=== PATIENT | female | born 1970 | race African-American/Black ===

== ENCOUNTER 2024-05-25 06:00 | Inpatient (IN) | payer OTHER ==
[~2024-05-25] VITALS: Ht 172.7 cm; Wt 124.5 kg
[2024-05-25] VITALS (28 sets, daily range): BP systolic 88–171; BP diastolic 28–83; PULSE 89–145; RESP 18–40; TEMP 99.5–100.2; O2SAT 96–100
--- NOTE | 2024-05-25 06:23 | ED.PDOC ---
Altered Mental Status HPI Comments 53 year female brought in by EMS presents to the ED with a chief complaint of ALOC. Per EMS, patient's daughter called EMS due to patient "breathing funny" and not responding. Per daughter, patient has not been well for the past 2 weeks with flu like symptoms, for the past 2 days patient has worsen. Upon EMS arri fernie, patient was tachycardiac, tachypneic 75% RA was placed on 15L O2 sat was 96%. Daughter is not aware of patient's past medical history. Chief Complaint: ALOC Time Seen by MD: 06:15 Reviewed Notes: Medications, Allergies Allergies: Coded Allergies: UNOBTAINABLE (Unverified , 05/25/24) Pt unresponsive Information Source: Emergency Med Personnel Mode of Arrival: EMS Severity: Moderate Timing: Hours Duration: Since onset Quality: Decreased Alertness, Change in Behavior Recent: Cough, Fever Past Medical History PAST MEDICAL HISTORY: Unknown Surgical History: Unknown VEGETABLES COOK History: Unknown Family History Family History: Unknown Social History Lives In: Home Unable to Obtain due to: Altered Mental Status All Other Systems: Reviewed and Negative Physical Exam General Appearance: Severe Distress HEENT: Normal ENT Inspection, Pharynx Normal, TMs Normal Neck: Normal Respiratory: Accessory Muscle Use, Respiratory Distress Cardiovascular: Tachycardia Breast Exam: Deferred Gastrointestinal: Soft Genitalia: Deferred Pelvic: Deferred Rectal: Deferred Extremities: No pedal edema Musculoskeletal : Apperance: Normal Neurologic: Disoriented Cerebellar Function: NOT DONE Reflexes: NOT DONE Skin: Pallor Peripheral Pulses: 3+ Radial (R), 3+ Radial (L) Lymphatic: No Adenopathy Was a procedure done? Was a procedure done?: Yes Sedation Sedation?: Yes Informed consent obtained: No Sedation start time: 06:43 Sedation end time: 07:00 Sedation total time: 17min Central Line Recorder of insertion practice: Maintenance Planner Occupation of claims representative: Attending Physician Indication: Inability to obtain IV Room prepared for procedure: Yes Maintenance Planner performed hand hygien: Yes Maximal sterile barrier precau: Mask/Eye shield, Sterile gown, Cap, Sterlie gloves, Large sterlie drape Skin Preparation: Chlorhexidine gluconate, Providine iodine Skin preparation completely dr: Yes Insertion site: Right, Femoral Central line catheter type: Uhi-knzcfxxy-kza dialysis Number of lumens: 3 Central line exchanged over a: No Antiseptic ointment applied to: Yes Post Assessment: Chest X-Ray, Proper placement Intubation Indication: Respiratory Insufficiency, Altered Mental Status Prep: Preoxygenation Pretreated with: Sedation Medicated with: Other (20 mg Etomidate, 200 mg Roccuronium ) Intubation Approach: Orotracheal Intubation size: cm (24 ) Informed consent obtained: No Notes LOOSE TOOTH IN THE MOUTH ANOTHER TWO LOOSE. WAS ABLE TO REMOVE THE TOOTH FROM THE MOUTH PRIOR TO INTUBATION. POSSIBLY HAPPENED IN ROUTE TO THE ER. TOLERATED THE PROCEDURE. Differential Diagnosis (ALOC) Differential Diagnosis: Encephalopathy, Hypoxemia X-Ray, Labs, Meds, VS Vital Signs Date Time Temp Pulse Resp B/P (MAP) Pulse Ox O2 Delivery O2 Flow Rate FiO2 05/25/24 10:32 100/66 05/25/24 10:30 05/25/24 10:30 101.8 107 24 100/66 (77) 99 101.8 05/25/24 10:22 134 20 171/69 100 100 05/25/24 10:00 103.1 111 20 90/31 (50) 99 103.1 05/25/24 10:00 101/51 05/25/24 10:00 101/51 05/25/24 09:30 105.8 124 20 132/110 (117) 99 105.8 05/25/24 09:00 117/61 05/25/24 08:56 134 20 100 100 05/25/24 08:40 136 05/25/24 08:30 105.8 139 20 129/57 (81) 99 105.8 05/25/24 08:28 129/57 05/25/24 08:24 105.9 139 22 05/25/24 08:16 145 18 98 Mechanical Ventilator+ 100 100 05/25/24 08:16 105.8 145 18 171/69 (103) 98 105.8 05/25/24 07:30 211/186 05/25/24 06:56 159 18 249/169 (195) 95 100 05/25/24 06:45 128/79 05/25/24 06:44 128/79 05/25/24 06:43 128/79 05/25/24 06:29 140 40 96 Non-Rebreather 15 N/A 05/25/24 06:10 141 05/25/24 06:00 101.0 140 40 158/106 (123) 96 Lab Test 05/25/24 10:30 05/25/24 08:38 05/25/24 08:30 05/25/24 08:24 Range/Units Lactic Acid Level 4.6 *H 3.6 *H 0.4-2.0 mmol/L Blood Gas Specimen Type Arterial Blood Gas Sample Site Left radial Blood Gas Patient Temperature 37.0 Arterial Blood Date Drawn [id number] Arterial Blood pH 7.255 L 7.350-7.450 Arterial Blood Partial Pressure CO2 41.5 32.0-45.0 mmHg Arterial Blood Partial Pressure O2 62.2 L 83.0-108.0 mmHg Arterial Blood HCO3 18.0 L 21.0-28.0 mmol/L Arterial Blood Oxygen Saturation 85.1 L 94.0-98.0 % Arterial Blood Base Excess -8.7 L -2.0-3.0 mmol/L Arterial Blood Oxyhemoglobin 84.2 L 94.0-98.0 % Arterial Blood Carboxyhemoglobin 0.4 L 0.5-1.5 % Arterial Blood Methemoglobin 0.6 0.0-1.5 % Joni Test Modified Blood Gas Total Hemoglobin 13.90 12.0-16.0 g/dL Blood Gas Set Respiration Rate 18.0 Blood Gas Modality Vent - ac FiO2 % 100.0 Blood Gas Tidal Volume 600.0 Blood Gas PEEP or CPAP 7.0 Urine Color Yellow Yellow Urine Clarity Clear Clear Urine pH 7.5 5.0-9.0 Urine Specific [place] 1.013 1.001-1.035 Urine Protein 2+ H Negative Urine Ketones Negative Negative Urine Blood Negative Negative /uL Urine Nitrite Negative Negative Urine Bilirubin Negative Negative Urine Urobilinogen 8 H Negative mg/dL Urine Leukocyte Esterase Negative Negative /uL Urine RBC 5 0 - 4 /hpf Urine WBC 1 0 - 5 /hpf Urine Squamous Epithelial Cells Few <5 /hpf Urine Bacteria None seen None Seen /hpf Urine Glucose Normal Normal mg/dL Urine Opiates Screen Neg NEGATIVE Urine Fentanyl Screen Neg NEGATIVE Urine Barbiturates Screen Neg NEGATIVE Urine Phencyclidine Screen Neg NEGATIVE Urine Amphetamines Screen Neg NEGATIVE Urine Benzodiazepines Screen Neg NEGATIVE Urine Cocaine Screen Neg NEGATIVE Urine Cannabinoids Screen Neg NEGATIVE White Blood Count 29.6 H 4.4-10.8 10^3/uL Red Blood Count 4.08 4.0-5.20 10^6/uL Hemoglobin 12.3 12.2-16.2 g/dL Hematocrit 37.0 36.0-46.0 % Mean Corpuscular Volume 90.8 80.0-100.0 fL Mean Corpuscular Hemoglobin 30.1 28.0-32.0 pg Mean Corpuscular Hemoglobin Concent 33.2 32.0-36.0 g/dL Red Cell Distribution Width 15.2 H 11.8-14.3 % Platelet Count 380 140-450 10^3/uL Mean Platelet Volume 8.6 6.9-10.8 fL Neutrophils (%) (Auto) 37.0-80.0 % Lymphocytes (%) (Auto) 10.0-50.0 % Monocytes (%) (Auto) 0.0-12.0 % Basophils (%) (Auto) 0.0-2.0 % Neutrophils # (Auto) 1.6-8.6 10 ^3/uL Lymphocytes # (Auto) 0.4-5.4 10 ^3/uL Monocytes # (Auto) 0-1.3 10 ^3/uL Differential Total Cells Counted 100.0 100 Neutrophils % (Manual) 86 H 37.0-80.0 Band Neutrophils % (Manual) 5 Lymphocytes % (Manual) 7 L 10.0-50.0 Monocytes % (Manual) 2 0-12 Eosinophils % (Manual) 0 0-7 Basophils % (Manual) 0 0.0-2.0 Metamyelocytes % (manual) 0 Myelocytes % (Manual) 0 Promyelocytes % (Manual) 0 Blast Cells % (Manual) 0 Reactive Lymphocytes 0 Platelet Estimate Adequate Sodium Level 139 136-145 mmol/L Potassium Level 3.5 3.5-5.1 mmol/L Chloride Level 102 98-107 mmol/L Carbon Dioxide Level 20 20-31 mmol/L Anion Gap 17 H 5-15 Blood Urea Nitrogen 48 H 9-23 mg/dL Creatinine 5.14 H 0.550-1.02 mg/dL Glomerular Filtration Rate Calc 9 >90 mL/min BUN/Creatinine Ratio 9.3 L 10.0-20.0 Serum Glucose 139 H 74-106 mg/dL Hemoglobin A1c 5.6 <5.7 % A1C Calcium Level 9.2 8.7-10.4 mg/dL Magnesium Level 1.7 1.6-2.6 mg/dL Troponin I High Sensitivity 1060 *H </=34 ng/L B-Type Natriuretic Peptide 1384.04 0-100 pg/mL Triglycerides Level 192 H < 150 mg/dL Cholesterol Level 98 < 200 mg/dL LDL Cholesterol 40 < 100 mg/dL HDL Cholesterol 8 L 40-59 mg/dL Test 05/25/24 06:40 Range/Units Influenza Type A Antigen Negative Negative Influenza Type B Antigen Negative Negative SARS-CoV-2 Antigen (Rapid) Negative NEGATIVE Current Medications Medications (Trade) Dose Ordered Sig/Yousif Route Start Time Stop Time Status Last Admin Rocuronium [place] 120 mg ONCE ONCE IV 05/25/24 06:30 05/25/24 06:31 DC 05/25/24 06:43 Etomidate 20 mg ONCE ONCE IV 05/25/24 06:30 05/25/24 06:31 DC 05/25/24 06:43 Midazolam HCl 50 ml @ 1 mls/hr Q24H IV 05/25/24 06:30 05/25/24 16:19 Ceftriaxone Sodium 50 ml @ 100 mls/hr ONCE ONCE IV 05/25/24 06:30 05/25/24 06:59 DC 05/25/24 08:39 Azithromycin 250 ml @ 125 mls/hr ONCE ONCE IV 05/25/24 06:30 05/25/24 08:29 DC 05/25/24 09:06 Sodium Chloride 1,000 ml @ 1,000 mls/hr Q1H ONCE IV 05/25/24 08:15 05/25/24 09:14 DC 05/25/24 08:28 Furosemide (Lasix Injection) 40 mg ONCE ONCE IV 05/25/24 10:15 05/25/24 10:16 DC 05/25/24 10:32 Heparin Sodium (Porcine) 5,000 units ONCE ONCE IV 05/25/24 10:15 05/25/24 10:16 DC 05/25/24 10:33 Sodium Chloride 1,000 ml @ 1,000 mls/hr Q1H ONCE IV 05/25/24 10:15 05/25/24 11:14 DC 05/25/24 10:21 Furosemide (Lasix Injection) 40 mg ONCE ONCE IV 05/25/24 10:15 05/25/24 10:16 DC 05/25/24 13:58 Patient altered. Not getting enough oxygen. Respiratory distress. Unable to get any answers. Had to intubate the patient. Was given sedation. On examination there is a loose tooth on the tongue. There are two other loose teeth ready to come out. Intubated the patient. Place a central line. Sepsis protocol. BNP elevated. Cardiac marker elevated. Was given Lasix. Risk versus the benefit. CT of the head. Heparin to be given after the CT of the head. Was given Rocephin. Was given azithromycin. Explained to the family. Chest x-ray reviewed does show pneumonia. Explained to the family pain Continue cardiac monitoring. Time of 1ST Reevaluation: 06:45 Reevaluation 1ST: Unchanged Patient Education/Counseling: Pt Unresponsive Family Education/Counseling: No Family Present Additional Information I reviewed the following notes from patient's past medical encounters: The following tests were ordered, and results were reviewed by me: BLOOD CULTURE, LA W/ REFLEX, TROP, CBC, BNP, XY CHEST, UA, BMP, COVID, RAPID INFLUENZA A&B, XY CHEST, RESPIRATORY CULTURE W/ GS, ABG W/ CO-OC, XY R HIP COMPLETE Additional Information was gathered from interviewing the following independent historians: EMS I reviewed and agreed with the following test results read by other providers: XY R HIP COMPLETE , XY CHEST I discussed treatment and results with medical personnel and: Departure 1 Departure Time of Disposition: 07:12 Impression: Primary Impression: Metabolic encephalopathy Additional Impressions: Pneumonia Qualified Codes: J18.9 - Pneumonia, unspecified organism CHF (congestive heart failure) Qualified Codes: I50.43 - Acute on chronic combined systolic (congestive) and diastolic (congestive) heart failure Demand ischemia Sepsis Qualified Codes: A41.9 - Sepsis, unspecified organism Disposition: 09 ADMITTED INPATIENT Admit to: ICU Condition: Guarded Critical Care Note Critical Care Time?: Yes (90 min-critical care time only) Stability Stability form required: No Heart Score Heart Score: Heart Score Response (Comments) Value History Slightly Suspicious 0 EKG Normal 0 Age 45-64 1 Risk Factors >3 or Hx ASHD 2 Troponin >3 x's Normal limit 2 Total 5 I personally scribed for LINDSAY ADAIR MD ([email or web address]) on 05/25/24 at 06:23. Electronically submitted by Shi Benavides ([email or web address]). I personally scribed for LINDSAY ADAIR MD ([email or web address]) on 05/25/24 at 06:38. Electronically submitted by Shi Benavides ([email or web address]). I personally scribed for LINDSAY ADAIR MD ([email or web address]) on 05/25/24 at 06:52. Electronically submitted by Shi Benavides ([email or web address]). I personally scribed for LINDSAY ADAIR MD ([email or web address]) on 05/25/24 at 06:52. Electronically submitted by Shi Benavides ([email or web address]). I personally scribed for LINDSAY ADAIR MD ([email or web address]) on 05/25/24 at 07:54. Electronically submitted by Shi Benavides ([email or web address]). LINDSAY ADAIR MD May 25, 2024 06:23
[2024-05-25] MEDS: ETOMIDATE (2MG/ML) 20ML VIAL IV ONE ×2 (06:34→06:43)
[2024-05-25] MEDS: ROCURONIUM 10MG/ML 10ML VIAL IV ONE ×2 (06:34→06:43)
[2024-05-25] MEDS: MIDAZOLAM DRIP 50 mg/50mL 50 ML IV ONE (06:34)
[2024-05-25] MEDS: MIDAZOLAM DRIP 50 mg/50mL 50 ML IV SCH (06:44)
--- NOTE | 2024-05-25 07:19 | ECG ---
[facility] Test Date: 2024-05-25 Test Time: 06:10:55 Pat Name: ORLIN BHAKTA Department: ED Room: [facility] Gender: F Superintendent Maintenance: CARLOS : 1970 Requested By: EMERGENCY EMERGENCY Order Number: [id number] Reading MD: Blayne Buchanan Measurements Intervals [place] Rate: 141 P: 0 NC: 0 QRS: 236 QRSD: 105 T: 75 QT: 351 QTc: 538 Interpretive Statements Atrial flutter with varied AV block, Markedly posterior QRS axis Anteroseptal infarct, old Borderline ST depression, diffuse leads Prolonged QT interval Electronically Signed On 05-25-2024 18:29:12 PST by Blayne Buchanan Please click the below link to view image of tracing.
[2024-05-25 07:29] LABS: COVID19 ANTIGEN SOFIA FIA NEGATIVE (NEGATIVE); Rapid Influenza A Negative (Negative); Rapid Influenza B Negative (Negative)
--- NOTE | 2024-05-25 07:33 | DVH ---
CLINICAL INFORMATION: 53 years old, Female; shortness of breath. TECHNIQUE: AP portable chest radiographs were obtained. COMPARISON: None FINDINGS: Distal tip of the endotracheal tube is approximately 5.5 cm above the level of the nik. Enteric tu be is poorly visualized distally due to overlying soft tissue density. Appears to reach the gastroeso phageal junction, although not visualized more distally. There are bilateral airspace opacities and i nterstitial opacities, which may be due to multifocal pneumonia or pulmonary edema in the appropriate clinical setting. No pneumothorax visualized. Likely small left pleural effusion. IMPRESSION: 1. Distal tip of the endotracheal tube is approximately 5.5 cm above the level of the nik. 2. Poorly visualized enteric tube at its distal aspect. Appears to reach the gastroesophageal junctio n, although not visualized distal to this point. Correlate with clinical findings. 3. Bilateral airspace opacities and interstitial opacities, may be due to multifocal pneumonia or pul monary edema in the appropriate clinical setting.
[2024-05-25] MEDS ORDERED: ACETAMINOPHEN 650 MG RECT SUPP PR ONE (08:15)
[2024-05-25] MEDS ORDERED: SODIUM CHLORIDE 0.9% 1,000 ML IV ONE ×2 (08:15→10:15)
[2024-05-25] MEDS: SODIUM CHLORIDE 0.9% 1,000 ML IV ONE ×2 (08:28→10:21)
[2024-05-25] MEDS ORDERED: ACETAMINOPHEN IV 1000 MG/100ML (10MG/ML) IV PRN (08:30)
[2024-05-25] MEDS: cefTRIAXone 1GM/50ML D5W 50 ML IV ONE (08:39)
[2024-05-25 08:46] LABS: Base Excess -8.7 mmol/L (-2.0-3.0)
[2024-05-25] MEDS: AZITHROMYCIN 500MG/ 250ML 250 ML IV ONE (09:06)
[2024-05-25 09:14] LABS: Hemoglobin 12.3 g/dL (12.2-16.2); Mean Corpuscular Hemoglobin 30.1 pg (28.0-32.0); Mean Corpuscular Hgb Conc. 33.2 g/dL (32.0-36.0); Mean Corpuscular Volume 90.8 fL (80.0-100.0); Platelet Count (auto) 380 10^3/uL (140-450); Red Blood Cells 4.08 10^6/uL (4.0-5.20); Red Cell Distribution Width 15.2 % (11.8-14.3); White Blood Cell 29.6 10^3/uL (4.4-10.8)
[2024-05-25 09:16] LABS: Chloride 102 mmol/L (98-107); Sodium 139 mmol/L (136-145)
[2024-05-25 09:18] LABS: Anion Gap 17 (5-15); Calcium 9.2 mg/dL (8.7-10.4); Carbon Dioxide 20 mmol/L (20-31)
[2024-05-25 09:19] LABS: Urine Bacteria None Seen /hpf (None Seen)
[2024-05-25 09:23] LABS: BUN/Creatinine Ratio 9.3 (10.0-20.0)
[2024-05-25 09:25] LABS: Basophils % (manual) 0 (0.0-2.0); Blast Cells 0; Eosinophils % (manual) 0 (0-7); Metamyelocytes % 0; Myelocytes % 0; Promyelocytes % 0; Reactive Lymphocytes 0
[2024-05-25 09:36] LABS: Blood Urea Nitrogen 48 mg/dL (9-23); Glucose 139 mg/dL (74-106); Potassium 3.5 mmol/L (3.5-5.1)
[2024-05-25 09:36] LABS: Urine Blood Negative /uL (Negative); Urine Clarity Clear (Clear); Urine Color Yellow (Yellow); Urine Protein, UAD 2+ (Negative); Urine Specific Gravity 1.013 (1.001-1.035); Urine Squamous Epithelial Cell FEW /hpf (<5); Urine Urobilinogen 8 mg/dL (Negative); Urine WBC 1 /hpf (0 - 5); Urine pH 7.5 (5.0-9.0)
[2024-05-25 09:37] LABS: Lactic Acid w/Reflex 3.6 mmol/L (0.4-2.0)
[2024-05-25] MEDS: FUROSEMIDE 40 MG/4 ML VIAL IV ONE ×2 (10:32→10:35)
[2024-05-25] MEDS: HEPARIN SODIUM (PORCINE) 5000 UNITS/ML 1ML VIAL IV ONE (10:33)
[2024-05-25] MEDS ORDERED: MORPHINE SULFATE INJ 2 MG/ml SYRG IV PRN (10:45)
[2024-05-25] MEDS ORDERED: ONDANSETRON HCL 4 MG/2 ML VIAL IV PRN (10:45)
[2024-05-25] MEDS ORDERED: hydrALAZINE HCL 20 MG/ML VL IV PRN (10:45)
[2024-05-25] MEDS ORDERED: MORPHINE SULFATE 4 MG/ML SYR/VIAL IV PRN (10:45)
[2024-05-25] MEDS ORDERED: NITROGLYCERIN 0.4 MG SL TAB SL PRN (10:45)
[2024-05-25] MEDS: PHENYLEPHRINE IV 250 ML IV SCH (11:15)
--- NOTE | 2024-05-25 11:22 | DVHHP2 ---
History of Present Illness Reason for Visit: SOB History of Present Illness María Pandya is a 53-year-old female with past medical history of hypertension who presents to the ED for shortness of breath. Per son Jc he states that his sister was at home with his mom went to go check on her in the bedroom and she was complaining of shortness of breath so she called EMS was brought here to the ED and was altered then subsequently intubated. Per pat bridgette's son Jc he states that his mom has been sick for about a month and has been taking [id number] medications along with tea to help with a cold and her headache. Patient's son reports that she has a history of hypertension who has been compliant with her medications however he does not know what medications she is taking. Patient is currently intubated and on the vent. Cardiovascular: HTN Past Surgical History: None Past Surgical History reported per son Family History: None Family History reported per son Smoke: No ALCOHOL: none Drugs: None Lives: with Family Domestic Violence: Neg Review of Systems Respiratory: Shortness of breath Allergies: Coded Allergies: UNOBTAINABLE (Unverified , 05/25/24) Pt unresponsive Medications Current Medications Medications Dose Ordered Sig/Yousif Route Start Time Stop Time Status Last Admin Dose Admin Midazolam HCl 50 ml @ 1 mls/hr Q24H IV 05/25/24 06:30 05/25/24 10:00 7 MLS/HR Hydralazine HCl 10 mg Q6HP PRN IV 05/25/24 10:45 UNV Sodium Chloride 1,000 ml @ 75 mls/hr [id number] IV 05/25/24 10:45 UNV Aspirin 81 mg DAILY NG 05/26/24 10:00 UNV Atorvastatin Calcium 40 mg HS NG 05/25/24 22:00 UNV Morphine Sulfate 2 mg Q30MP PRN IV 05/25/24 10:45 UNV Ondansetron HCl 4 mg Q4HP PRN IV 05/25/24 10:45 UNV Nitroglycerin 0.4 mg Q5MINP PRN SL 05/25/24 10:45 UNV Morphine Sulfate 2 mg Q30M PRN IV 05/25/24 10:45 UNV Exam Vital Signs Vital Signs Date Time Temp Pulse Resp B/P (MAP) Pulse Ox O2 Delivery O2 Flow Rate FiO2 05/25/24 10:32 100/66 05/25/24 10:30 101.8 107 24 99 101.8 05/25/24 10:22 100 05/25/24 08:16 Mechanical Ventilator+ 05/25/24 06:29 15 General Appearance: Other (intubated) HEENT: Mucous membr. moist/pink Respiratory: Normal air movement Cardiovascular: Normal S1, Normal S2 Abdominal: Normal bowel sounds, Soft Extremities: No clubbing, No cyanosis, Normal pulses Skin: No breakdown, No significant lesion Labs/Xrays Labs Test 05/25/24 10:30 05/25/24 08:38 05/25/24 08:30 05/25/24 08:24 Range/Units Blood Gas Specimen Type Arterial Blood Gas Sample Site Left radial Blood Gas Patient Temperature 37.0 Arterial Blood Date Drawn [id number] Arterial Blood pH 7.255 L 7.350-7.450 Arterial Blood Partial Pressure CO2 41.5 32.0-45.0 mmHg Arterial Blood Partial Pressure O2 62.2 L 83.0-108.0 mmHg Arterial Blood HCO3 18.0 L 21.0-28.0 mmol/L Arterial Blood Oxygen Saturation 85.1 L 94.0-98.0 % Arterial Blood Base Excess -8.7 L -2.0-3.0 mmol/L Arterial Blood Oxyhemoglobin 84.2 L 94.0-98.0 % Arterial Blood Carboxyhemoglobin 0.4 L 0.5-1.5 % Arterial Blood Methemoglobin 0.6 0.0-1.5 % Joni Test Modified Blood Gas Total Hemoglobin 13.90 12.0-16.0 g/dL Blood Gas Set Respiration Rate 18.0 Blood Gas Modality Vent - ac FiO2 % 100.0 Blood Gas Tidal Volume 600.0 Blood Gas PEEP or CPAP 7.0 Urine Color Yellow Yellow Urine Clarity Clear Clear Urine pH 7.5 5.0-9.0 Urine Specific [place] 1.013 1.001-1.035 Urine Protein 2+ H Negative Urine Ketones Negative Negative Urine Blood Negative Negative /uL Urine Nitrite Negative Negative Urine Bilirubin Negative Negative Urine Urobilinogen 8 H Negative mg/dL Urine Leukocyte Esterase Negative Negative /uL Urine RBC 5 0 - 4 /hpf Urine WBC 1 0 - 5 /hpf Urine Squamous Epithelial Cells Few <5 /hpf Urine Bacteria None seen None Seen /hpf Urine Glucose Normal Normal mg/dL White Blood Count 29.6 H 4.4-10.8 10^3/uL Red Blood Count 4.08 4.0-5.20 10^6/uL Hemoglobin 12.3 12.2-16.2 g/dL Hematocrit 37.0 36.0-46.0 % Mean Corpuscular Volume 90.8 80.0-100.0 fL Mean Corpuscular Hemoglobin 30.1 28.0-32.0 pg Mean Corpuscular Hemoglobin Concent 33.2 32.0-36.0 g/dL Red Cell Distribution Width 15.2 H 11.8-14.3 % Platelet Count 380 140-450 10^3/uL Mean Platelet Volume 8.6 6.9-10.8 fL Neutrophils (%) (Auto) 37.0-80.0 % Lymphocytes (%) (Auto) 10.0-50.0 % Monocytes (%) (Auto) 0.0-12.0 % Basophils (%) (Auto) 0.0-2.0 % Neutrophils # (Auto) 1.6-8.6 10 ^3/uL Lymphocytes # (Auto) 0.4-5.4 10 ^3/uL Monocytes # (Auto) 0-1.3 10 ^3/uL Sodium Level 139 136-145 mmol/L Potassium Level 3.5 3.5-5.1 mmol/L Chloride Level 102 98-107 mmol/L Carbon Dioxide Level 20 20-31 mmol/L Anion Gap 17 H 5-15 Blood Urea Nitrogen 48 H 9-23 mg/dL Creatinine 5.14 H 0.550-1.02 mg/dL Glomerular Filtration Rate Calc 9 >90 mL/min BUN/Creatinine Ratio 9.3 L 10.0-20.0 Serum Glucose 139 H 74-106 mg/dL Calcium Level 9.2 8.7-10.4 mg/dL Troponin I High Sensitivity 1060 *H </=34 ng/L B-Type Natriuretic Peptide 1384.04 0-100 pg/mL Test 05/25/24 06:40 Range/Units Influenza Type A Antigen Negative Negative Influenza Type B Antigen Negative Negative SARS-CoV-2 Antigen (Rapid) Negative NEGATIVE CLINICAL INFORMATION: 53 years old, Female; shortness of breath. TECHNIQUE: AP portable chest radiographs were obtained. COMPARISON: None FINDINGS: Distal tip of the endotracheal tube is approximately 5.5 cm above the level of the nik. Enteric tube is poorly visualized distally due to overlying soft tissue density. Appears to reach the gastroesophageal junction, although not visualized more distally. There are bilateral airspace opacities and interstitial opacities, which may be due to multifocal pneumonia or pulmonary edema in the appropriate clinical setting. No pneumothorax visualized. Likely small left pleural effusion. IMPRESSION: 1. Distal tip of the endotracheal tube is approximately 5.5 cm above the level of the nik. 2. Poorly visualized enteric tube at its distal aspect. Appears to reach the gastroesophageal junction, although not visualized distal to this point. Corre late with clinical findings. 3. Bilateral airspace opacities and interstitial opacities, may be due to multifocal pneumonia or pulmonary edema in the appropriate clinical setting. Assessment/Plan Assessment/Plan Assessment/Plan: Acute respiratory failure Leukocytosis likely secondary to sepsis Lactic acidosis likely secondary to sepsis Acute kidney injury Elevated troponin's Chest x-ray IV antibiotics ceftriaxone and he has a through Sedation - intubated on vent Right hip x-ray Respiratory culture ABG Intubated Flu swab COVID swab Urine culture UA BNP Troponin noted Lactic acid Blood cultures EKG noted Lasix Heparin UDS TSH Lipid panel Respiratory treatments IV steroids Diuretics UDS Lovenox CT head Ago IV fluids Potter catheterization Cardiology consult Pulmonary consult Nephro consult Pressor-Anthony Labs EKG a.m. A.m. labs Chronic Hypertension Follow up with PCP outpatient FEN/PPX NPO Ivf DVT ppx lovenox PUD ppx - Protonix Discussed plan of care with patient's son, brother and nurse Home medications reconciled unable to reconcile patient not alert and son does not have information Admit to ICU Plan discussed with: Son My Orders Orders - ESME HUMPHREY CONTRACT ENGINEER Procedure Category Date Status Time *Consult Dr Reba Delacruz CONS 05/25/24 Transmitted 10:36 *Dr. Keyshawn Navarro CONS 05/25/24 Transmitted -[place] 10:39 Hydralazine Injection PHA 05/25/24 Logged (Apresoline Inject 10:45 Admit ADMIT 05/25/24 Transmitted 10:39 Code Status CODE 05/25/24 Transmitted 10:39 Vital Signs ROB 05/25/24 In Process 10:39 Process Control Manager ROB 05/25/24 In Process 10:39 Sodium Chloride 0.9% PHA 05/25/24 Logged 10:45 Aspirin Tablet PHA 05/26/24 Logged 10:00 Atorvastatin (Lipitor) PHA 05/25/24 Logged 22:00 Morphine Sulfate PHA 05/25/24 Logged Injection 10:45 Complete Blood Count LAB 05/26/24 Verified 04:00 Comprehensive LAB 05/26/24 Verified Metabolic Panel 04:00 Magnesium LAB 05/26/24 Verified 04:00 Lipid Panel LAB 05/26/24 Verified 04:00 Lipase LAB 05/26/24 Verified 04:00 Chest Xray 1 View XY 05/26/24 Logged 06:00 Ondansetron Hcl PHA 05/25/24 Logged (Zofran) 10:45 Electrocardigram EKG 05/26/24 Logged 04:00 Troponin-I Hs LAB 05/25/24 Logged 10:39 Cardiac ROB 05/25/24 In Process Rehabilitation - Outpa Nitroglycerin PHA 05/25/24 Logged Sublingual (Ntrostat 10:45 Morphine Sulfate PHA 05/25/24 Logged Injection 10:45 Stat Ekg For Chest ROB 05/25/24 In Process Pain 10:39 Notify Md Of Changes ROB 05/25/24 In Process From Base 10:39 Cold Roll Catcher For ROB 05/25/24 In Process 24 Hours 10:39 Emergency Dysrhythmia ROB 05/25/24 In Process Protocol 10:39 Rhythm Strips Once [facility] 05/25/24 In Process Every Shift 10:39 Oxygen By Nasal RT 05/25/24 Transmitted Cannula 10:39 Enoxaparin Sodium PHA 05/26/24 Logged (Lovenox) 10:00 Enoxaparin Sodium PHA 05/25/24 Logged (Lovenox) 11:15 Ceftriaxone 1gm/50ml PHA 05/26/24 Logged D5w (Rocephin) 09:00 Azithromycin 500mg/ PHA 05/26/24 Logged 250ml (Zithromax 50 10:00 Albuterol Medneb PHA 05/25/24 Logged (Ventolin Medneb) 14:00 Ipratropium Medneb PHA 05/25/24 Logged (Atrovent Medneb) 14:00 Methylprednisolone PHA 05/25/24 Logged Sod Succ (Solu Medrol 14:00 Thyroid Stimulating LAB 05/25/24 Transmitted Hormone 11:02 Drug Screen LAB 05/25/24 Transmitted 11:02 Urine Bacterial JO-ANN 05/25/24 Transmitted Culture 11:02 Furosemide Injection PHA 05/25/24 Verified (Lasix Injection) 18:00 Date of Service: May 25, 2024 Billing Provider: ESME HUMPHREY Common Visit Codes: [id number] INP/OBS CARE (HIGH) ESME HUMPHREY May 25, 2024 11:22
[2024-05-25 11:51] LABS: Band Neutrophils % (manual) 5; Lymphocytes % (manual) 7 (10.0-50.0); Monocytes % (manual) 2 (0-12); Platelet Estimate Adequate
[2024-05-25] MEDS: ENOXAPARIN SOD 30 MG/0.3 ML SYRINGE SC ONE (12:28)
[2024-05-25 13:08] LABS: Amphetamine Screen, Urine Neg (NEGATIVE); Barbiturate Scree,Urine Neg (NEGATIVE); Benzodiazephine Screen, Urine Neg (NEGATIVE); Cocaine Screen, Urine Neg (NEGATIVE); Opiate Scree,Urine Neg (NEGATIVE); Phencyclidine Screen, Urine Neg (NEGATIVE)
[2024-05-25 13:12] LABS: Cannabinoid Screen, Urine Neg (NEGATIVE)
--- NOTE | 2024-05-25 13:18 | DVHINCON2 ---
Date Seen: May 25, 2024 Referring Physician MD Silvestre Reason for Consultation NSTEMI History of Present Illness This is a 53-year-old female patient who presents to the emergency room with chief complaint of shortness of breath. At the time of assessment, the patient is mechanically ventilated and chemically sedated. Family at bedside, patients son, able to answer all questions on patient's behalf. Per patient's son, the patient has been having recent flu-like symptoms for the last three weeks. He reports that the patient has been complaining of cough and body aches for the last week. He reports that approximately 4:00 a.m. this morning the patient became severely short of breath prompting family members to call emergency medical services. Upon emergency room arrival, we will patient was noted to be nonresponsive with accessory muscle use. The patient was urgently intubated in the emergency room. Cardiology is now being consulted for elevated troponin levels. Initial twelve lead electrocardiogram reveals sinus tachycardia with ST segment changes in diffuse leads and prolonged QTc interval. Initial troponin level of 1060ng/L. Initial BNP level of 1384.04pg/mL. Significant past medical history includes hypertension and morbid obesity. Past Medical History Past medical history reviewed. No other significant than mentioned above. Past Surgical History Denies Family History Family history reviewed. Social History Denies the use of tobacco, alcohol or illicit drugs. Allergies: Coded Allergies: UNOBTAINABLE (Unverified , 05/25/24) Pt unresponsive Home Meds Unable to obtain Current Medications Current Medications Medications (Trade) Dose Ordered Sig/Yousif Route PRN Reason Start Time Stop Time Status Last Admin Midazolam HCl 50 ml @ 1 mls/hr Q24H IV 05/25/24 06:30 05/25/24 10:00 Acetaminophen (Ofirmev) 1,000 mg [id number] PRN IV PAIN SCALE 1-3 OR TEMP>100.4 05/25/24 08:30 05/25/24 08:31 DC Hydralazine HCl (Apresoline Injection) 10 mg Q6HP PRN IV SBP>150 05/25/24 10:45 Sodium Chloride 1,000 ml @ 75 mls/hr [id number] IV 05/25/24 10:45 Aspirin 81 mg DAILY NG 05/26/24 10:00 Atorvastatin Calcium (Lipitor) 40 mg HS NG 05/25/24 22:00 Morphine Sulfate 2 mg Q30MP PRN IV FOR CHEST PAIN 05/25/24 10:45 05/25/24 11:48 DC Ondansetron HCl (Zofran) 4 mg Q4HP PRN IV NAUSEA / VOMITING 05/25/24 10:45 Nitroglycerin (Ntrostat Sublingual) 0.4 mg Q5MINP PRN SL FOR CHEST PAIN 05/25/24 10:45 Morphine Sulfate 2 mg Q30M PRN IV FOR CHEST PAIN 05/25/24 10:45 Enoxaparin Sodium (Lovenox) 30 mg DAILY SC 05/26/24 10:00 Ceftriaxone Sodium 50 ml @ 100 mls/hr DAILY@09 IV 05/26/24 09:00 Azithromycin 250 ml @ 125 mls/hr DAILY IV 05/26/24 10:00 Albuterol (Ventolin Medneb) 2.5 mg Q4HR NEB 05/25/24 14:00 Ipratropium [place] (Atrovent Medneb) 0.5 mg Q4HR NEB 05/25/24 14:00 Methylprednisolone Sodium Succinate (Solu Medrol) 40 mg Q8HR IV 05/25/24 14:00 Furosemide (Lasix Injection) 40 mg BIDD IV 05/25/24 18:00 Phenylephrine HCl 250 ml @ 30 mls/hr Q8H20M IV 05/25/24 11:15 Review of Systems Constitutional: No symptom reported Ears, Nose, & Throat: No symptom reported Eyes: No symptom reported Neurological: No symptoms reported Pulmonary/Respiratory: Shortness of breath Cardiovascular: No symptom reported Gastrointestinal: No symptom reported Genitourinary: No symptom reported Musculoskeletal: No symptom reported Skin: No symptom reported Psychiatric: No symptom reported Endocrine: No symptom reported Hematologic/Lymphatic: No symptom reported Vital Signs Vital Signs Date Time Temp Pulse Resp B/P (MAP) Pulse Ox O2 Delivery O2 Flow Rate FiO2 05/25/24 12:30 99.1 90 23 122/32 (62) 100 99.1 05/25/24 12:17 100 05/25/24 08:16 Mechanical Ventilator+ 05/25/24 06:29 15 Physical Exam General Appearance: Calm, relaxed. Morbidly obese Pulmonary/Respiratory: Coarse throughout Cardiovascular/Chest: Regular rate and rhythm. Peripheral Pulses: 2+ Radial (R). 2+ Radial (L). 1+ Pedal (R). 1+ Pedal (L) Abdominal Exam: Normal bowel sounds. Ankle Exam: Negative ankle edema Lower extremities: Negative lower extremity edema Neuro/Mental Status: Chemically sedated Thoughts/Psych: Deferred Appearance: No acute distress. Skin Exam: Normal inspection. Normal color. Warm and dry. Labs/Diagnostic Data Labs Test 05/25/24 11:35 05/25/24 10:30 05/25/24 08:38 05/25/24 08:30 Range/Units Troponin I High Sensitivity 1087 *H </=34 ng/L Lactic Acid Level 4.6 *H 0.4-2.0 mmol/L Blood Gas Specimen Type Arterial Blood Gas Sample Site Left radial Blood Gas Patient Temperature 37.0 Arterial Blood Date Drawn [id number] Arterial Blood pH 7.255 L 7.350-7.450 Arterial Blood Partial Pressure CO2 41.5 32.0-45.0 mmHg Arterial Blood Partial Pressure O2 62.2 L 83.0-108.0 mmHg Arterial Blood HCO3 18.0 L 21.0-28.0 mmol/L Arterial Blood Oxygen Saturation 85.1 L 94.0-98.0 % Arterial Blood Base Excess -8.7 L -2.0-3.0 mmol/L Arterial Blood Oxyhemoglobin 84.2 L 94.0-98.0 % Arterial Blood Carboxyhemoglobin 0.4 L 0.5-1.5 % Arterial Blood Methemoglobin 0.6 0.0-1.5 % Joni Test Modified Blood Gas Total Hemoglobin 13.90 12.0-16.0 g/dL Blood Gas Set Respiration Rate 18.0 Blood Gas Modality Vent - ac FiO2 % 100.0 Blood Gas Tidal Volume 600.0 Blood Gas PEEP or CPAP 7.0 Urine Color Yellow Yellow Urine Clarity Clear Clear Urine pH 7.5 5.0-9.0 Urine Specific [place] 1.013 1.001-1.035 Urine Protein 2+ H Negative Urine Ketones Negative Negative Urine Blood Negative Negative /uL Urine Nitrite Negative Negative Urine Bilirubin Negative Negative Urine Urobilinogen 8 H Negative mg/dL Urine Leukocyte Esterase Negative Negative /uL Urine RBC 5 0 - 4 /hpf Urine WBC 1 0 - 5 /hpf Urine Squamous Epithelial Cells Few <5 /hpf Urine Bacteria None seen None Seen /hpf Urine Glucose Normal Normal mg/dL Urine Opiates Screen Neg NEGATIVE Urine Fentanyl Screen Neg NEGATIVE Urine Barbiturates Screen Neg NEGATIVE Urine Phencyclidine Screen Neg NEGATIVE Urine Amphetamines Screen Neg NEGATIVE Urine Benzodiazepines Screen Neg NEGATIVE Urine Cocaine Screen Neg NEGATIVE Urine Cannabinoids Screen Neg NEGATIVE Test 05/25/24 08:24 05/25/24 06:40 Range/Units White Blood Count 29.6 H 4.4-10.8 10^3/uL Red Blood Count 4.08 4.0-5.20 10^6/uL Hemoglobin 12.3 12.2-16.2 g/dL Hematocrit 37.0 36.0-46.0 % Mean Corpuscular Volume 90.8 80.0-100.0 fL Mean Corpuscular Hemoglobin 30.1 28.0-32.0 pg Mean Corpuscular Hemoglobin Concent 33.2 32.0-36.0 g/dL Red Cell Distribution Width 15.2 H 11.8-14.3 % Platelet Count 380 140-450 10^3/uL Mean Platelet Volume 8.6 6.9-10.8 fL Neutrophils (%) (Auto) 37.0-80.0 % Lymphocytes (%) (Auto) 10.0-50.0 % Monocytes (%) (Auto) 0.0-12.0 % Basophils (%) (Auto) 0.0-2.0 % Neutrophils # (Auto) 1.6-8.6 10 ^3/uL Lymphocytes # (Auto) 0.4-5.4 10 ^3/uL Monocytes # (Auto) 0-1.3 10 ^3/uL Differential Total Cells Counted 100.0 100 Neutrophils % (Manual) 86 H 37.0-80.0 Band Neutrophils % (Manual) 5 Lymphocytes % (Manual) 7 L 10.0-50.0 Monocytes % (Manual) 2 0-12 Eosinophils % (Manual) 0 0-7 Basophils % (Manual) 0 0.0-2.0 Metamyelocytes % (manual) 0 Myelocytes % (Manual) 0 Promyelocytes % (Manual) 0 Blast Cells % (Manual) 0 Reactive Lymphocytes 0 Platelet Estimate Adequate Sodium Level 139 136-145 mmol/L Potassium Level 3.5 3.5-5.1 mmol/L Chloride Level 102 98-107 mmol/L Carbon Dioxide Level 20 20-31 mmol/L Anion Gap 17 H 5-15 Blood Urea Nitrogen 48 H 9-23 mg/dL Creatinine 5.14 H 0.550-1.02 mg/dL Glomerular Filtration Rate Calc 9 >90 mL/min BUN/Creatinine Ratio 9.3 L 10.0-20.0 Serum Glucose 139 H 74-106 mg/dL Calcium Level 9.2 8.7-10.4 mg/dL B-Type Natriuretic Peptide 1384.04 0-100 pg/mL Influenza Type A Antigen Negative Negative Influenza Type B Antigen Negative Negative SARS-CoV-2 Antigen (Rapid) Negative NEGATIVE Assessment NSTEMI Septic shock History of hypertension now with hypotension Rule out structural heart disease CHANG versus CKD Morbidly obese Plan/Recommendation We will continue with the following plan/recommendations (Dr. Buchanan): * Echocardiogram to evaluate cardiac function * Vasopressors for hemodynamic support * IV diuresis as tolerated * Cardiac surveillance: Monitor and notify for any ECG changes * DVT/VTE prophylaxis * Antibiotics per primary care team Case discussed with . At this time we will continue with conservative medical management. We will trend troponin levels and repeat ECG and assess for any changes. Further recommendations per clinical course and progression. Thank you for allowing us to care for this patient. Please call with any questions or concerns. Critical care time spent: 44 minutes This medical document was created using an electronic medical record system with voice recognition software and computerized dictation system. Although this document has been carefully reviewed, there might still be some phonetic and typographical errors. Occasional wrong-word or ``sound-alike substitutions may have occurred due to the inherent limitations of voice recognition software. These areas are purely typographical due to imperfections of the software programs and do not reflect any compromise in the patient's medical care. Please read the chart carefully and recognize, using context, where these substitutions have occurred. Plan discussed with: Patient NYHA Physical activity limitations: NA Date of Service: May 25, 2024 Billing Provider: BOB TREVINO Cardiology Common Codes: 16301-GCUIPEI INP/OBS CARE (High) Cardiology Consultation Codes: [id number] CONSULT <45MIN BOB TREVINO May 25, 2024 13:18
[2024-05-25] MEDS: SODIUM CHLORIDE 0.9% 1,000 ML IV SCH (13:58)
[2024-05-25 14:02] LABS: Lactic Acid w/Reflex 4.2 mmol/L (0.4-2.0)
[2024-05-25] MEDS: methylPREDNISolone SOD SUCC 40 MG/ML VL IV SCH (14:14)
--- NOTE | 2024-05-25 14:51 | DVH ---
EXAM: CT HEAD WITHOUT CONTRAST HISTORY: altered COMPARISON: None TECHNIQUE: Axial images of the head were obtained and reformatted in coronal and sagittal planes. All CT scans at this medical facility are performed using dose modulation techniques as appropriate t o a performed exam including the following: Automated exposure control was utilized; adjustment of th e MA and/or KV according to patient size; and use of iterative reconstruction technique. CT Dose: CTDI volume is 66 mGy. Dose-length product is 1198 mGy*cm FINDINGS: There is moderate streak artifact from bilateral ear piercings limiting evaluation of the adjacent st ructures.. There is no evidence of acute intracranial hemorrhage, mass, mass effect midline shift. Th ere is no hydrocephalus or extra-axial fluid collection. Escudero-white matter differentiation appears m aintained. The visualized paranasal sinuses and mastoid air cells are clear. The calvarium is intact. IMPRESSION: 1. No gross acute intracranial process. HS:Y
[2024-05-25 15:03] LABS: Magnesium 1.7 mg/dL (1.6-2.6)
[2024-05-25] MEDS: ALBUTEROL SULF 2.5 MG/0.5ML(0.5%) NEB SOLN NEB SCH (15:10)
[2024-05-25] MEDS: IPRATROPIUM BROM 0.5 MG/2.5ML INH SOL NEB SCH (15:10)
--- NOTE | 2024-05-25 16:40 | DVHSR ---
APPROVED REPORT EXAM: Two-dimensional and M-mode echocardiogram with Doppler and color Doppler. Blood Pressure: 171/69 mmHg INDICATION EF RISK FACTORS Obesity: Height: 5'8", Weight: 282 DIMENSIONS LVDd4.1 (3.8-5.7cm)LA (2D)3.9 (1.9-4.0cm)Aortic Root3.5 (2.0-3.7cm) LVDs3.0 (2.5-4.0cm)LA (MM) (1.9-4.0cm)Aortic Cusp Exc2.0 (1.5-2.0cm) EF (%) 55.0 (55-70%)Rt. Atrium4.0 (1.9-4.0cm)Asc. Aorta cm IVSd2.2 (0.7-1.1cm)RV (D) (1.8-2.4cm) PWd1.8 (0.7-1.1cm) Mitral Valve MitralMitral Stenosis E wave0.77m/sMV Mean GR.mmHg E/A ratio0.02D MVAcm2 Aortic Valve Aortic ValveAortic Stenosis V10.86m/[place] Mean GR.3mmHg V21.13m/[place] Peak GR.5mmHg LVOT Diameter1.9 (1.8-2.4cm)Doppler AVA2.16cm2 Pulmonic Valve V20.82m/s Tricuspid Valve TR Velocity2.60m/s [id number] Other Information Quality : LimitedRhythm : Technically limited study due to body habitus, patient position and on vent. Conclusion lvef 40% by visual estimate severe concnetric LVH , very thick LV noted, ddx: HTN, ckd, HCM, etc very small LV cavity noted pleural effusion noted mild mitral regurg pericardial effusion noted ,adjacent to LV< no hemodynamic compromise
[2024-05-25] MEDS: ACETAMINOPHEN IV 1000 MG/100ML (10MG/ML) IV PRN (17:29)
[2024-05-25] MEDS ORDERED: FUROSEMIDE 40 MG/4 ML VIAL IV SCH (18:00)
[2024-05-25] MEDS: BUMETANIDE 2.5mg/10ml (0.25 mg/ml) INJ IV SCH (18:17)
--- NOTE | 2024-05-25 18:54 | DVHINCON2 ---
Date of service: May 25, 2024 Referring Physician scooby Reason for Consultation karolina History of Present Illness 53 years old female with past medical history of hypertension, morbid obesity unknown exact medical history presented for chief complaints of shortness breath and not feeling well patient has been sick for 3-4 weeks as per family member,, Patient is intubated currently found to have severe sepsis Past Medical History As per HPI Allergies: Coded Allergies: UNOBTAINABLE (Unverified , 05/25/24) Pt unresponsive Current Medications Current Medications Medications (Trade) Dose Ordered Sig/Yousif Route PRN Reason Start Time Stop Time Status Last Admin Midazolam HCl 50 ml @ 1 mls/hr Q24H IV 05/25/24 06:30 05/25/24 16:19 Acetaminophen (Ofirmev) 1,000 mg [id number] PRN IV PAIN SCALE 1-3 OR TEMP>100.4 05/25/24 08:30 05/25/24 08:31 DC Hydralazine HCl (Apresoline Injection) 10 mg Q6HP PRN IV SBP>150 05/25/24 10:45 05/25/24 16:39 DC Sodium Chloride 1,000 ml @ 75 mls/hr [id number] IV 05/25/24 10:45 05/25/24 13:58 Aspirin 81 mg DAILY NG 05/26/24 10:00 Atorvastatin Calcium (Lipitor) 40 mg HS NG 05/25/24 22:00 Morphine Sulfate 2 mg Q30MP PRN IV FOR CHEST PAIN 05/25/24 10:45 05/25/24 11:48 DC Ondansetron HCl (Zofran) 4 mg Q4HP PRN IV NAUSEA / VOMITING 05/25/24 10:45 Nitroglycerin (Ntrostat Sublingual) 0.4 mg Q5MINP PRN SL FOR CHEST PAIN 05/25/24 10:45 Morphine Sulfate 2 mg Q30M PRN IV FOR CHEST PAIN 05/25/24 10:45 Enoxaparin Sodium (Lovenox) 30 mg DAILY SC 05/26/24 10:00 Ceftriaxone Sodium 50 ml @ 100 mls/hr DAILY@09 IV 05/26/24 09:00 Azithromycin 250 ml @ 125 mls/hr DAILY IV 05/26/24 10:00 Albuterol (Ventolin Medneb) 2.5 mg Q4HR NEB 05/25/24 14:00 1/7/25 18:44 Ipratropium [place] (Atrovent Medneb) 0.5 mg Q4HR NEB 05/25/24 14:00 05/25/24 18:44 Methylprednisolone Sodium Succinate (Solu Medrol) 40 mg Q8HR IV 05/25/24 14:00 05/25/24 14:14 Furosemide (Lasix Injection) 40 mg BIDD IV 05/25/24 18:00 05/25/24 17:16 DC Phenylephrine HCl 250 ml @ 30 mls/hr Q8H20M IV 05/25/24 11:15 Acetaminophen (Ofirmev) 1,000 mg [id number] PRN IV PAIN SCALE 1-3 OR TEMP>100.4 05/25/24 16:15 05/26/24 22:01 05/25/24 17:29 Bumetanide (Bumex Injection) 2 mg BID IV 05/25/24 18:00 05/25/24 18:17 Review of Systems Unable to obtain exactly H&P Exam Vital Signs/I&O Vital Sign Date Time Temp Pulse Resp B/P (MAP) Pulse Ox O2 Delivery O2 Flow Rate FiO2 05/25/24 18:31 100.2 90 22 124/66 (85) 98 100.2 05/25/24 16:25 90 05/25/24 08:16 Mechanical Ventilator+ 05/25/24 06:29 15 Physical Exam General-intubated HEENT-normocephalic, no icterus, no pallor, neck supple Respiratory-fair air entry bilateral, no rhonchi, no wheeze [id number] heard, Abdominal-soft, nontender, nondistended Musculoskeletal-no pedal edema, no calf tenderness Labs/Diagnostic Data Labs/Diagnostic Data Laboratory Tests Test 05/25/24 15:00 05/25/24 13:10 05/25/24 11:35 05/25/24 10:30 Range/Units Lactic Acid Level 3.2 *H 4.2 *H 4.6 *H 0.4-2.0 mmol/L Troponin I High Sensitivity 1087 *H </=34 ng/L Thyroid Stimulating Hormone (TSH) 0.57 0.55-4.78 uIU/mL Test 05/25/24 08:38 05/25/24 08:30 05/25/24 08:24 05/25/24 06:40 Range/Units Blood Gas Specimen Type Arterial Blood Gas Sample Site Left radial Blood Gas Patient Temperature 37.0 Arterial Blood Date Drawn [id number] Arterial Blood pH 7.255 L 7.350-7.450 Arterial Blood Partial Pressure CO2 41.5 32.0-45.0 mmHg Arterial Blood Partial Pressure O2 62.2 L 83.0-108.0 mmHg Arterial Blood HCO3 18.0 L 21.0-28.0 mmol/L Arterial Blood Oxygen Saturation 85.1 L 94.0-98.0 % Arterial Blood Base Excess -8.7 L -2.0-3.0 mmol/L Arterial Blood Oxyhemoglobin 84.2 L 94.0-98.0 % Arterial Blood Carboxyhemoglobin 0.4 L 0.5-1.5 % Arterial Blood Methemoglobin 0.6 0.0-1.5 % Joni Test Modified Blood Gas Total Hemoglobin 13.90 12.0-16.0 g/dL Blood Gas Set Respiration Rate 18.0 Blood Gas Modality Vent - ac FiO2 % 100.0 Blood Gas Tidal Volume 600.0 Blood Gas PEEP or CPAP 7.0 Urine Color Yellow Yellow Urine Clarity Clear Clear Urine pH 7.5 5.0-9.0 Urine Specific [place] 1.013 1.001-1.035 Urine Protein 2+ H Negative Urine Ketones Negative Negative Urine Blood Negative Negative /uL Urine Nitrite Negative Negative Urine Bilirubin Negative Negative Urine Urobilinogen 8 H Negative mg/dL Urine Leukocyte Esterase Negative Negative /uL Urine RBC 5 0 - 4 /hpf Urine WBC 1 0 - 5 /hpf Urine Squamous Epithelial Cells Few <5 /hpf Urine Bacteria None seen None Seen /hpf Urine Glucose Normal Normal mg/dL Urine Opiates Screen Neg NEGATIVE Urine Fentanyl Screen Neg NEGATIVE Urine Barbiturates Screen Neg NEGATIVE Urine Phencyclidine Screen Neg NEGATIVE Urine Amphetamines Screen Neg NEGATIVE Urine Benzodiazepines Screen Neg NEGATIVE Urine Cocaine Screen Neg NEGATIVE Urine Cannabinoids Screen Neg NEGATIVE White Blood Count 29.6 H 4.4-10.8 10^3/uL Red Blood Count 4.08 4.0-5.20 10^6/uL Hemoglobin 12.3 12.2-16.2 g/dL Hematocrit 37.0 36.0-46.0 % Mean Corpuscular Volume 90.8 80.0-100.0 fL Mean Corpuscular Hemoglobin 30.1 28.0-32.0 pg Mean Corpuscular Hemoglobin Concent 33.2 32.0-36.0 g/dL Red Cell Distribution Width 15.2 H 11.8-14.3 % Platelet Count 380 140-450 10^3/uL Mean Platelet Volume 8.6 6.9-10.8 fL Neutrophils (%) (Auto) 37.0-80.0 % Lymphocytes (%) (Auto) 10.0-50.0 % Monocytes (%) (Auto) 0.0-12.0 % Basophils (%) (Auto) 0.0-2.0 % Neutrophils # (Auto) 1.6-8.6 10 ^3/uL Lymphocytes # (Auto) 0.4-5.4 10 ^3/uL Monocytes # (Auto) 0-1.3 10 ^3/uL Differential Total Cells Counted 100.0 100 Neutrophils % (Manual) 86 H 37.0-80.0 Band Neutrophils % (Manual) 5 Lymphocytes % (Manual) 7 L 10.0-50.0 Monocytes % (Manual) 2 0-12 Eosinophils % (Manual) 0 0-7 Basophils % (Manual) 0 0.0-2.0 Metamyelocytes % (manual) 0 Myelocytes % (Manual) 0 Promyelocytes % (Manual) 0 Blast Cells % (Manual) 0 Reactive Lymphocytes 0 Platelet Estimate Adequate Sodium Level 139 136-145 mmol/L Potassium Level 3.5 3.5-5.1 mmol/L Chloride Level 102 98-107 mmol/L Carbon Dioxide Level 20 20-31 mmol/L Anion Gap 17 H 5-15 Blood Urea Nitrogen 48 H 9-23 mg/dL Creatinine 5.14 H 0.550-1.02 mg/dL Glomerular Filtration Rate Calc 9 >90 mL/min BUN/Creatinine Ratio 9.3 L 10.0-20.0 Serum Glucose 139 H 74-106 mg/dL Hemoglobin A1c 5.6 <5.7 % A1C Lactic Acid Level 3.6 *H 0.4-2.0 mmol/L Calcium Level 9.2 8.7-10.4 mg/dL Magnesium Level 1.7 1.6-2.6 mg/dL Troponin I High Sensitivity 1060 *H </=34 ng/L B-Type Natriuretic Peptide 1384.04 0-100 pg/mL Triglycerides Level 192 H < 150 mg/dL Cholesterol Level 98 < 200 mg/dL LDL Cholesterol 40 < 100 mg/dL HDL Cholesterol 8 L 40-59 mg/dL Influenza Type A Antigen Negative Negative Influenza Type B Antigen Negative Negative SARS-CoV-2 Antigen (Rapid) Negative NEGATIVE Assessment Acute kidney injury likely ATN Unknown recent baseline Severe sepsis Morbid obesity Ventilator-dependent hypoxic respiratory failure Recommendations Continue fluids now echo Renally dose antibiotics Strict Is&Os We will follow closely Kidney US Plan discussed with: Other LAN CHOWDHURY MD May 25, 2024 18:54
[2024-05-25] MEDS: fentaNYL Drip 2500mCg/250mlNS 250 ML IV SCH (20:00)
[2024-05-25] MEDS ORDERED: VANCOMYCIN PER PHARMACY 0 MG IV SCH (21:45)
[2024-05-25 22:14] LABS: Base Excess -7.6 mmol/L (-2.0-3.0)
[2024-05-25] MEDS ORDERED: VANCOMYCIN 1.75GM/350ML 350 ML IV SCH (22:45)
--- NOTE | 2024-05-25 22:54 | DVHINCON2 ---
Date of service: May 25, 2024 Referring Physician PALOMA Hutchinson Reason for Consultation Acute hypoxic respiratory failure requiring mechanical ventilation History of Present Illness A 53-year-old woman with past medical history of hypertension who is brought in to ED today with c/o shortness of breath. Per son Jc, his sister was at home with his mom, went to go check on her in the bedroom and she was complaining of shortness of breath, EMS was called and pt was brought in to ED. She was found to be altered, then subsequently was intubated. Son states pt has been sick for about a month and has been taking OTC medications along with tea to help with a cold and headache. Per son, pt is compliant with medications but he is unsure what medications she is on. Patient was admitted for further care and pulmonary consultation is requested for evaluation and management of acute hypoxic respiratory failure requiring mechanical ventilation. Review of Systems: Unobtainable d/t intubated status. Past Medical History: Hypertension Past Surgical History: None. Medications: Reviewed. Allergies: Unobtainable d/t intubated status. Family History: No family history of premature CAD. No family history of lung disorders. Social History: Nonsmoker. No alcohol or illicit drug use. Allergies: Coded Allergies: UNOBTAINABLE (Unverified , 05/25/24) Pt unresponsive Current Medications Current Medications Medications (Trade) Dose Ordered Sig/Yousif Route PRN Reason Start Time Stop Time Status Last Admin Midazolam HCl 50 ml @ 1 mls/hr Q24H IV 05/25/24 06:30 05/25/24 22:13 Acetaminophen (Ofirmev) 1,000 mg [id number] PRN IV PAIN SCALE 1-3 OR TEMP>100.4 05/25/24 08:30 05/25/24 08:31 DC Hydralazine HCl (Apresoline Injection) 10 mg Q6HP PRN IV SBP>150 05/25/24 10:45 05/25/24 16:39 DC Sodium Chloride 1,000 ml @ 75 mls/hr [id number] IV 05/25/24 10:45 05/25/24 13:58 Aspirin 81 mg DAILY NG 05/26/24 10:00 Atorvastatin Calcium (Lipitor) 40 mg HS NG 05/25/24 22:00 Morphine Sulfate 2 mg Q30MP PRN IV FOR CHEST PAIN 05/25/24 10:45 05/25/24 11:48 DC Ondansetron HCl (Zofran) 4 mg Q4HP PRN IV NAUSEA / VOMITING 05/25/24 10:45 Nitroglycerin (Ntrostat Sublingual) 0.4 mg Q5MINP PRN SL FOR CHEST PAIN 05/25/24 10:45 Morphine Sulfate 2 mg Q30M PRN IV FOR CHEST PAIN 05/25/24 10:45 Enoxaparin Sodium (Lovenox) 30 mg DAILY SC 05/26/24 10:00 Ceftriaxone Sodium 50 ml @ 100 mls/hr DAILY@09 IV 05/26/24 09:00 Azithromycin 250 ml @ 125 mls/hr DAILY IV 05/26/24 10:00 Albuterol (Ventolin Medneb) 2.5 mg Q4HR NEB 05/25/24 14:00 05/25/24 21:59 Ipratropium [place] (Atrovent Medneb) 0.5 mg Q4HR NEB 05/25/24 14:00 05/25/24 22:00 Methylprednisolone Sodium Succinate (Solu Medrol) 40 mg Q8HR IV 05/25/24 14:00 05/25/24 14:14 Furosemide (Lasix Injection) 40 mg BIDD IV 05/25/24 18:00 05/25/24 17:16 DC Phenylephrine HCl 250 ml @ 30 mls/hr Q8H20M IV 05/25/24 11:15 Acetaminophen (Ofirmev) 1,000 mg [id number] PRN IV PAIN SCALE 1-3 OR TEMP>100.4 05/25/24 16:15 05/26/24 22:01 05/25/24 17:29 Bumetanide (Bumex Injection) 2 mg BID IV 05/25/24 18:00 05/25/24 18:17 Fentanyl Citrate 250 ml @ 2.5 mls/hr Q24H IV 05/25/24 19:30 05/25/24 20:00 Vancomycin HCl 0 ml @ 0 mls/hr UD IV 05/25/24 21:45 UNV Vancomycin HCl 350 ml @ 175 mls/hr O IV 05/25/24 22:45 05/25/24 22:46 DC Vancomycin HCl 250 ml @ 125 mls/hr Q2H IV 05/25/24 22:45 05/26/24 02:44 Vital Signs Vital Signs Date Time Temp Pulse Resp B/P (MAP) Pulse Ox O2 Delivery O2 Flow Rate FiO2 05/25/24 20:00 144/78 05/25/24 20:00 93 23 99 Mechanical Ventilator+ 90 90 05/25/24 18:31 100.2 100.2 05/25/24 06:29 15 Physical Exam Gen.: Patient lying in bed in medical ICU. Sedated, intubated on mechanical ventilator. Head: Normocephalic, atraumatic. Eyes: PERRLA. Ears: Normal external anatomy. Throat: Endotracheal tube and orogastric tube in place. Neck: Supple, trachea midline. Chest: Transmitted breath sounds bilaterally. Decreased air entry bilaterally. No wheezing. Bibasilar crackles. Cardiovascular: Positive S1, positive S2. Regular rate and rhythm. Abdomen: Positive bowel sounds in all 4 quadrants. Soft, nontender, nondistended. : Potter in place. Normal external genitalia. Rectal: Deferred. Skin: Warm, dry. Intact. Extremities: 2+ radial pulses bilaterally. No lower extremity edema. Neuro: Sedated. Labs/Diagnostic Data Labs Test 05/25/24 22:40 05/25/24 21:42 05/25/24 15:00 05/25/24 11:35 Range/Units Blood Gas Specimen Type Arterial Blood Gas Sample Site Right radial Blood Gas Patient Temperature 37.0 Arterial Blood Date Drawn [id number] Arterial Blood pH 7.296 L 7.350-7.450 Arterial Blood Partial Pressure CO2 38.3 32.0-45.0 mmHg Arterial Blood Partial Pressure O2 167.7 H 83.0-108.0 mmHg Arterial Blood HCO3 18.3 L 21.0-28.0 mmol/L Arterial Blood Oxygen Saturation 99.0 H 94.0-98.0 % Arterial Blood Base Excess -7.6 L -2.0-3.0 mmol/L Arterial Blood Oxyhemoglobin 98.3 H 94.0-98.0 % Arterial Blood Carboxyhemoglobin 0.3 L 0.5-1.5 % Arterial Blood Methemoglobin 0.4 0.0-1.5 % Joni Test Yes Blood Gas Total Hemoglobin 11.40 L 12.0-16.0 g/dL Blood Gas Set Respiration Rate 18.0 Blood Gas Modality Vent - ac Blood Gas Spontaneous Rate 21 FiO2 % 90.0 Blood Gas Tidal Volume 600.0 Blood Gas PEEP or CPAP 10.0 Blood Gas Critical Value Read Back Yes Lactic Acid Level 3.2 *H 0.4-2.0 mmol/L Thyroid Stimulating Hormone (TSH) 0.57 0.55-4.78 uIU/mL Test 05/25/24 08:30 05/25/24 08:24 05/25/24 06:40 Range/Units Urine Color Yellow Yellow Urine Clarity Clear Clear Urine pH 7.5 5.0-9.0 Urine Specific [place] 1.013 1.001-1.035 Urine Protein 2+ H Negative Urine Ketones Negative Negative Urine Blood Negative Negative /uL Urine Nitrite Negative Negative Urine Bilirubin Negative Negative Urine Urobilinogen 8 H Negative mg/dL Urine Leukocyte Esterase Negative Negative /uL Urine RBC 5 0 - 4 /hpf Urine WBC 1 0 - 5 /hpf Urine Squamous Epithelial Cells Few <5 /hpf Urine Bacteria None seen None Seen /hpf Urine Glucose Normal Normal mg/dL Urine Opiates Screen Neg NEGATIVE Urine Fentanyl Screen Neg NEGATIVE Urine Barbiturates Screen Neg NEGATIVE Urine Phencyclidine Screen Neg NEGATIVE Urine Amphetamines Screen Neg NEGATIVE Urine Benzodiazepines Screen Neg NEGATIVE Urine Cocaine Screen Neg NEGATIVE Urine Cannabinoids Screen Neg NEGATIVE White Blood Count 29.6 H 4.4-10.8 10^3/uL Red Blood Count 4.08 4.0-5.20 10^6/uL Hemoglobin 12.3 12.2-16.2 g/dL Hematocrit 37.0 36.0-46.0 % Mean Corpuscular Volume 90.8 80.0-100.0 fL Mean Corpuscular Hemoglobin 30.1 28.0-32.0 pg Mean Corpuscular Hemoglobin Concent 33.2 32.0-36.0 g/dL Red Cell Distribution Width 15.2 H 11.8-14.3 % Platelet Count 380 140-450 10^3/uL Mean Platelet Volume 8.6 6.9-10.8 fL Neutrophils (%) (Auto) 37.0-80.0 % Lymphocytes (%) (Auto) 10.0-50.0 % Monocytes (%) (Auto) 0.0-12.0 % Basophils (%) (Auto) 0.0-2.0 % Neutrophils # (Auto) 1.6-8.6 10 ^3/uL Lymphocytes # (Auto) 0.4-5.4 10 ^3/uL Monocytes # (Auto) 0-1.3 10 ^3/uL Differential Total Cells Counted 100.0 100 Neutrophils % (Manual) 86 H 37.0-80.0 Band Neutrophils % (Manual) 5 Lymphocytes % (Manual) 7 L 10.0-50.0 Monocytes % (Manual) 2 0-12 Eosinophils % (Manual) 0 0-7 Basophils % (Manual) 0 0.0-2.0 Metamyelocytes % (manual) 0 Myelocytes % (Manual) 0 Promyelocytes % (Manual) 0 Blast Cells % (Manual) 0 Reactive Lymphocytes 0 Platelet Estimate Adequate Sodium Level 139 136-145 mmol/L Potassium Level 3.5 3.5-5.1 mmol/L Chloride Level 102 98-107 mmol/L Carbon Dioxide Level 20 20-31 mmol/L Anion Gap 17 H 5-15 Blood Urea Nitrogen 48 H 9-23 mg/dL Creatinine 5.14 H 0.550-1.02 mg/dL Glomerular Filtration Rate Calc 9 >90 mL/min BUN/Creatinine Ratio 9.3 L 10.0-20.0 Serum Glucose 139 H 74-106 mg/dL Hemoglobin A1c 5.6 <5.7 % A1C Calcium Level 9.2 8.7-10.4 mg/dL Magnesium Level 1.7 1.6-2.6 mg/dL B-Type Natriuretic Peptide 1384.04 0-100 pg/mL Triglycerides Level 192 H < 150 mg/dL Cholesterol Level 98 < 200 mg/dL LDL Cholesterol 40 < 100 mg/dL HDL Cholesterol 8 L 40-59 mg/dL Influenza Type A Antigen Negative Negative Influenza Type B Antigen Negative Negative SARS-CoV-2 Antigen (Rapid) Negative NEGATIVE Microbiology Date/Time Source Procedure Growth Status 05/25/24 08:24 Blood Blood Culture - Preliminary Resulted Assessment Impression: Acute hypoxic respiratory failure On mechanical ventilator Septic shock Elevated troponin Acute kidney injury Lactic acidosis Metabolic acidosis Multifocal pneumonia, likely gram negative Pulmonary edema AE COPD Plan: s/p intubation on mechanical ventilator. CXR image and report reviewed. Devices in place. Bilateral opacities. No pneumothorax. No pleural effusion. ABG reviewed. On AC mode; RR 18, VT 600, PEEP 7, FiO2 100% Titrate FIO2 to keep O2 saturation above 90%. VAP bundle. Daily ABG and CXR while intubated Sedate for ventilator synchrony Continue bronchodilators. Steroids Continue antibiotics. F/u cultures. Start pressors if necessary to maintain a mean arterial blood pressure greater than 65 mmHg. Cardiology recs appreciated. Diurese w/ Bumex as tolerated Monitor renal function Monitor electrolytes. Supplement as necessary. Monitor ins and outs. Nephrology recs appreciated. IV fluid hydration GI prophylaxis. DVT prophylaxis. Prognosis: Poor given patient's multiple co-morbidities. Condition: Critical Rest of plan per hospitalist and other consultants. A total of 35 minutes of critical care time was spent reviewing the patient record, examining the patient, making a diagnostic and therapeutic plan, discussing this plan with the medical personnel, following up on diagnostic studies and following the patient for clinical stability excluding any and all procedures. At least 50% of this time was spent in direct, [id number] contact. Thank you, MIRNA Stratton, for allowing me to participate in this patient's care. Further recommendations will depend on the patient's clinical course. Please do not hesitate to contact me if you have any questions or concerns. This medical document was created using an electronic medical record system with [employer] dictation system. Although these documentations are being carefully reviewed, there may still be some phonetic and typographical changes. The errors are purely typographical, due to imperfection on the software program, and do not reflect any compromise in the patient's medical care. Plan discussed with: Spouse, Other (MIRNA Stratton/) MELODY ELIZABETH MD May 25, 2024 22:54
[2024-05-25] MEDS: VANCOMYCIN 1GM/250ML KIT 250 ML IV SCH (22:58)
[2024-05-25] MEDS: SODIUM BICARB 8.4% 50Meq/50ml SYR Vial IV ONE (22:58)
[2024-05-25] MEDS: ATORVASTATIN 20 MG TAB NG SCH (22:58)
[2024-05-26] VITALS (63 sets, daily range): BP systolic 82–139; BP diastolic 46–76; PULSE 72–105; RESP 17–26; TEMP 97–100.9; O2SAT 83–100
[2024-05-26] MEDS: IBUPROFEN 100MG/5ML ORAL SUSP 100 MG/5 ML UD GT PRN (01:42)
--- NOTE | 2024-05-26 04:41 | DVH ---
CHEST RADIOGRAPH Indication: CHEST PAIN Technique: Single frontal view of the chest was obtained Comparison: XY CHEST PORTABLE on DOS: 05/25/24 FINDINGS: Lines and Tubes: The endotracheal tube terminates 6.0 cm above the nik. The enteric tube courses b elow the left hemidiaphragm and the tip extends outside the field of view. Lungs: Bilateral alveolar and interstitial opacities are unchanged. Pleura: No effusion. No pneumothorax. Cardiomediastinal contours: Stable. Bones: No acute osseous abnormality. IMPRESSION: 1. Stable position of the support lines and tubes. 2. Bilateral alveolar and interstitial opacities are unchanged.
[2024-05-26 05:14] LABS: Hematocrit 31.9 % (36.0-46.0); Hemoglobin 10.1 g/dL (12.2-16.2); Mean Corpuscular Hemoglobin 29.4 pg (28.0-32.0); Mean Corpuscular Hgb Conc. 31.7 g/dL (32.0-36.0); Mean Corpuscular Volume 92.5 fL (80.0-100.0); Platelet Count (auto) 324 10^3/uL (140-450); Red Blood Cells 3.45 10^6/uL (4.0-5.20); Red Cell Distribution Width 15.6 % (11.8-14.3)
[2024-05-26 05:30] LABS: Lactic Acid w/Reflex 3.3 mmol/L (0.4-2.0)
[2024-05-26 05:31] LABS: White Blood Cell 34.9 10^3/uL (4.4-10.8)
[2024-05-26 05:32] LABS: Basophils % (manual) 0 (0.0-2.0); Blast Cells 0; Eosinophils % (manual) 0 (0-7); Metamyelocytes % 0; Myelocytes % 0; Promyelocytes % 0; Reactive Lymphocytes 0
[2024-05-26 05:35] LABS: Alkaline Phosphatase 98 U/L (46-116); Anion Gap 16 (5-15); BUN/Creatinine Ratio 8.8 (10.0-20.0); Chloride 107 mmol/L (98-107); Cholesterol 87 mg/dL (< 200); LDL Cholesterol 23 mg/dL (< 100); Magnesium 1.8 mg/dL (1.6-2.6); Potassium 3.6 mmol/L (3.5-5.1); Sodium 140 mmol/L (136-145); Total Protein 6.6 g/dL (5.7-8.2)
[2024-05-26 05:49] LABS: Alanine Aminotransferase 167 U/L (7-40); Albumin 3.1 g/dL (3.2-4.8); Aspartate Aminotransferase 246 U/L (13-40); Blood Urea Nitrogen 62 mg/dL (9-23); Calcium 7.8 mg/dL (8.7-10.4); Carbon Dioxide 17 mmol/L (20-31); Glucose 160 mg/dL (74-106); HDL Cholesterol 6 mg/dL (40-59); Triglycerides 164 mg/dL (< 150)
[2024-05-26 06:09] LABS: Lipase 47 U/L (12-53)
[2024-05-26 07:06] LABS: Band Neutrophils % (manual) 3; Lymphocytes % (manual) 9 (10.0-50.0); Monocytes % (manual) 7 (0-12); Platelet Estimate Adequate
[2024-05-26 07:07] LABS: Large Platelets FEW
[2024-05-26 07:41] LABS: Base Excess -10.4 mmol/L (-2.0-3.0)
[2024-05-26] MEDS: cefTRIAXone 1GM/50ML D5W 50 ML IV SCH (09:09)
[2024-05-26] MEDS: NOREPINEPHRINE 8 MG/250ML KIT 250 ML IV ONE (09:50)
[2024-05-26] MEDS: ENOXAPARIN SOD 30 MG/0.3 ML SYRINGE SC SCH (09:57)
[2024-05-26] MEDS: ASPirin 81 mg TAB NG SCH (09:57)
[2024-05-26] MEDS: AZITHROMYCIN 500MG/ 250ML 250 ML IV SCH (09:58)
[2024-05-26] MEDS: NOREPINEPHRINE 8 MG/250ML KIT 250 ML IV SCH (10:00)
[2024-05-26] MEDS: BUMETANIDE INJECTION 25 MG in GIVE UN-DILUTED 0 ML IV SCH (15:01)
--- NOTE | 2024-05-26 16:23 | DVHPN2 ---
Progress Note Date Seen: May 26, 2024 Medical Necessity Reason Pt with a Central, PICC or Fol: Yes The following are medically ne: [place] Catheter Subjective Patient reports: Other (Remains intubated) Review of Systems: Deferred Objective vital signs Vital Sign Date Time Temp Pulse Resp B/P (MAP) Pulse Ox O2 Delivery O2 Flow Rate FiO2 05/26/24 16:19 106/62 05/26/24 15:57 91 20 99 40 05/26/24 15:15 98.2 98.2 05/26/24 07:30 Mechanical Ventilator+ 05/25/24 06:29 15 Total Intake and Output 05/25/24 05/25/24 05/26/24 15:00 23:00 07:00 Intake Total 125 ml 727.5 ml 1660.25 ml Output Total 300 ml 275 ml Balance -175 ml 727.5 ml 1385.25 ml medications Current Medications Medications Dose Ordered Sig/Yousif Route Start Time Stop Time Status Last Admin Dose Admin Midazolam HCl 50 ml @ 1 mls/hr Q24H IV 05/25/24 06:30 05/26/24 11:43 15 MLS/HR Aspirin 81 mg DAILY NG 05/26/24 10:00 05/26/24 09:57 81 MG Atorvastatin Calcium 40 mg HS NG 05/25/24 22:00 05/25/24 22:58 40 MG Ondansetron HCl 4 mg Q4HP PRN IV 05/25/24 10:45 Nitroglycerin 0.4 mg Q5MINP PRN SL 05/25/24 10:45 Morphine Sulfate 2 mg Q30M PRN IV 05/25/24 10:45 Enoxaparin Sodium 30 mg DAILY SC 05/26/24 10:00 05/26/24 09:57 30 MG Albuterol 2.5 mg Q4HR NEB 05/25/24 14:00 05/26/24 13:58 2.5 MG Ipratropium [place] 0.5 mg Q4HR NEB 05/25/24 14:00 05/26/24 13:58 0.5 MG Methylprednisolone Sodium Succinate 40 mg Q8HR IV 05/25/24 14:00 05/26/24 15:00 40 MG Phenylephrine HCl 250 ml @ 30 mls/hr Q8H20M IV 05/25/24 11:15 05/26/24 05:04 67.5 MLS/HR Acetaminophen 1,000 mg [id number] PRN IV 05/25/24 16:15 05/26/24 22:01 05/25/24 17:29 1,000 MG Fentanyl Citrate 250 ml @ 2.5 mls/hr Q24H IV 05/25/24 19:30 05/26/24 16:19 17.5 MLS/HR Ibuprofen 400 mg Q4HP PRN GT 05/26/24 01:15 05/26/24 01:42 400 MG Norepinephrine Bitartrate 250 ml @ 3.75 mls/hr Q24H IV 05/26/24 10:00 05/26/24 10:00 3.75 MLS/HR Bumetanide 25 mg/ Miscellaneous 100 ml @ 4 mls/hr Q24H IV 05/26/24 13:15 05/26/24 15:01 4 MLS/HR Linezolid 300 ml @ 150 mls/hr Q12HR IV 05/26/24 22:00 Cefepime HCl 50 ml @ 12.5 mls/hr DAILY IV 05/27/24 10:00 Examination: GENERAL:Abnormal, LUNGS:Abnormal, MSK:Abnormal (Edema), SKIN:Abnormal, NEURO:Abnormal laboratory and microbiology Laboratory Tests 05/26/24 11:00 05/26/24 03:35 Test 05/26/24 03:35 Range/Units Serum Glucose 160 H 74-106 mg/dL Microbiology Date/Time Source Procedure Growth Status 05/25/24 08:30 Urine - [place] Urine Culture - Preliminary Resulted 05/25/24 08:24 Blood Blood Culture - Preliminary Resulted 05/25/24 06:50 Sputum Gram Stain - Final Resulted 05/25/24 06:50 Sputum Respiratory Culture - Preliminary Resulted Problem List/Assessment/Plan Problem List/Assessment/Plan Acute kidney injury likely ATN Unknown recent baseline Severe sepsis Morbid obesity Ventilator-dependent hypoxic respiratory failure recs No urine output Bumex drip Echo noted If no response in the next 24 to 48 hours we will consider dialysis Plan discussed with: Other My Orders My Orders Orders - LAN CHOWDHURY MD Procedure Category Date Status Time Give Un-Diluted PHA 05/26/24 In Process (Gi... W/Bumetanide 13:15 Critical Care Time (mins): 45 LAN CHOWDHURY MD May 26, 2024 16:23
--- NOTE | 2024-05-26 16:27 | DVHPN2 ---
Consult Progress Note Subjective Other Systems: Patient in normal sinus rhythm at time of assessment. Objective vital signs Vital Sign Date Time Temp Pulse Resp B/P (MAP) Pulse Ox O2 Delivery O2 Flow Rate FiO2 05/26/24 16:19 106/62 05/26/24 15:57 91 20 99 40 05/26/24 15:15 98.2 98.2 05/26/24 07:30 Mechanical Ventilator+ 05/25/24 06:29 15 Total Intake and Output 05/25/24 05/25/24 05/26/24 15:00 23:00 07:00 Intake Total 125 ml 727.5 ml 1660.25 ml Output Total 300 ml 275 ml Balance -175 ml 727.5 ml 1385.25 ml medications Current Medications Medications Dose Ordered Sig/Yousif Route Start Time Stop Time Status Last Admin Dose Admin Midazolam HCl 50 ml @ 1 mls/hr Q24H IV 05/25/24 06:30 05/26/24 11:43 15 MLS/HR Aspirin 81 mg DAILY NG 05/26/24 10:00 05/26/24 09:57 81 MG Atorvastatin Calcium 40 mg HS NG 05/25/24 22:00 05/25/24 22:58 40 MG Ondansetron HCl 4 mg Q4HP PRN IV 05/25/24 10:45 Nitroglycerin 0.4 mg Q5MINP PRN SL 05/25/24 10:45 Morphine Sulfate 2 mg Q30M PRN IV 05/25/24 10:45 Enoxaparin Sodium 30 mg DAILY SC 05/26/24 10:00 05/26/24 09:57 30 MG Albuterol 2.5 mg Q4HR NEB 05/25/24 14:00 05/26/24 13:58 2.5 MG Ipratropium [place] 0.5 mg Q4HR NEB 05/25/24 14:00 05/26/24 13:58 0.5 MG Methylprednisolone Sodium Succinate 40 mg Q8HR IV 05/25/24 14:00 05/26/24 15:00 40 MG Phenylephrine HCl 250 ml @ 30 mls/hr Q8H20M IV 05/25/24 11:15 05/26/24 05:04 67.5 MLS/HR Acetaminophen 1,000 mg [id number] PRN IV 05/25/24 16:15 05/26/24 22:01 1/7/25 17:29 1,000 MG Fentanyl Citrate 250 ml @ 2.5 mls/hr Q24H IV 05/25/24 19:30 05/26/24 16:19 17.5 MLS/HR Ibuprofen 400 mg Q4HP PRN GT 05/26/24 01:15 05/26/24 01:42 400 MG Norepinephrine Bitartrate 250 ml @ 3.75 mls/hr Q24H IV 05/26/24 10:00 05/26/24 10:00 3.75 MLS/HR Bumetanide 25 mg/ Miscellaneous 100 ml @ 4 mls/hr Q24H IV 05/26/24 13:15 05/26/24 15:01 4 MLS/HR Linezolid 300 ml @ 150 mls/hr Q12HR IV 05/26/24 22:00 Cefepime HCl 50 ml @ 12.5 mls/hr DAILY IV 05/27/24 10:00 Examination: GENERAL:Abnormal, LUNGS:Abnormal (Mechanically ventilated), CVS:Normal, NEURO:Abnormal (Chemically sedated) laboratory and microbiology Laboratory Tests 05/26/24 11:00 05/26/24 03:35 Test 05/26/24 03:35 Range/Units Serum Glucose 160 H 74-106 mg/dL Problem List/Assessment/Plan Problem List/Assessment/Plan NSTEMI Acute on chronic HFrEF, NYHA class IV, newly diagnosed Mitral valve regurgitation, mild degree Septic shock History of hypertension Acute kidney injury Morbidly obese Plan/Recommendation (Dr. Benson): * Echocardiogram reveals EF 40% with severe concentric LVH * Unable to initiate GDMT given current vasopressor therapy * Vasopressors for hemodynamic support: Quad strength to prevent fluid overload * IV diuresis as tolerated * Cardiac surveillance: Monitor and notify for any ECG changes * DVT/VTE prophylaxis * Antibiotics per primary care team Patient seen and examined at bedside with . At this time we will continue with conservative medical management. Troponin levels trending down. Further recommendations per clinical course and progression. Thank you for allowing us to care for this patient. Please call with any questions or concerns. This medical document was created using an electronic medical record system with voice recognition software and computerized dictation system. Although this document has been carefully reviewed, there might still be some phonetic and typographical errors. Occasional wrong-word or ``sound-alike substitutions may have occurred due to the inherent limitations of voice recognition software. These areas are purely typographical due to imperfections of the software programs and do not reflect any compromise in the patient's medical care. Please read the chart carefully and recognize, using context, where these substitutions have occurred. Plan discussed with: Other (Bedside RN) Date of Service: May 26, 2024 Billing Provider: CJ BENSON MD Common Visit Codes: 62365-[id number] CARE 30-74 MIN BOB TREVINO May 26, 2024 16:27
[2024-05-26] MEDS: NOREPINEPHRINE BITARTRATE 32 MG in SODIUM CHL 0.9% 218 ML IV SCH (16:56)
--- NOTE | 2024-05-26 17:02 | DVHPN2 ---
Subjective Patient intubated and sedated Reviewed: Care Plan, H&P, Labs, Medications, Previous Orders Changes from previous H/P or p: No Changes General: Per HPI Respiratory: Shortness of breath Objective Vitals Vital Signs Date Time Temp Pulse Resp B/P (MAP) Pulse Ox O2 Delivery O2 Flow Rate FiO2 05/26/24 16:19 106/62 05/26/24 15:57 91 20 99 40 05/26/24 15:15 98.2 98.2 05/26/24 07:30 Mechanical Ventilator+ 05/25/24 06:29 15 Intake/Output Intake and Output 05/26/24 07:00 Intake Total 2512.75 ml Output Total 575 ml Balance 1937.75 ml Intake Oral 80 ml IV Total 2432.75 ml Output Urine Total 575 ml General Appearance: moderate distress HEENT: Atraumatic, PERRLA Lungs: Clear to auscultation, Normal air movement, Other (Mechanical ventilation) Cardiovascular: Normal S1, Normal S2 Abdomen: Normal bowel sounds, Soft, No tenderness, No hepatospenomegaly Musculoskeletal: Normal sensory function, Normal motor function Extremities: No clubbing, No cyanosis, No edema, Normal pulses, No tenderness/swelling Neuro: Normal gait, Normal speech, Strength at 5/5 X4 ext Skin: Dry, Intact Psych/Mental Status: Mental status NL, Mood NL Medications Current Medications Medications Dose Ordered Sig/Yousif Route Start Time Stop Time Status Last Admin Dose Admin Midazolam HCl 50 ml @ 1 mls/hr Q24H IV 05/25/24 06:30 05/26/24 11:43 15 MLS/HR Aspirin 81 mg DAILY NG 05/26/24 10:00 05/26/24 09:57 81 MG Atorvastatin Calcium 40 mg HS NG 05/25/24 22:00 05/25/24 22:58 40 MG Ondansetron HCl 4 mg Q4HP PRN IV 05/25/24 10:45 Nitroglycerin 0.4 mg Q5MINP PRN SL 05/25/24 10:45 Morphine Sulfate 2 mg Q30M PRN IV 05/25/24 10:45 Enoxaparin Sodium 30 mg DAILY SC 05/26/24 10:00 05/26/24 09:57 30 MG Albuterol 2.5 mg Q4HR NEB 05/25/24 14:00 05/26/24 13:58 2.5 MG Ipratropium [place] 0.5 mg Q4HR NEB 05/25/24 14:00 05/26/24 13:58 0.5 MG Methylprednisolone Sodium Succinate 40 mg Q8HR IV 05/25/24 14:00 05/26/24 15:00 40 MG Phenylephrine HCl 250 ml @ 30 mls/hr Q8H20M IV 05/25/24 11:15 05/26/24 05:04 67.5 MLS/HR Acetaminophen 1,000 mg S23AEAS PRN IV 05/25/24 16:15 05/26/24 22:01 05/25/24 17:29 1,000 MG Fentanyl Citrate 250 ml @ 2.5 mls/hr Q24H IV 05/25/24 19:30 05/26/24 16:19 17.5 MLS/HR Ibuprofen 400 mg Q4HP PRN GT 05/26/24 01:15 05/26/24 01:42 400 MG Bumetanide 25 mg/ Miscellaneous 100 ml @ 4 mls/hr Q24H IV 05/26/24 13:15 05/26/24 15:01 4 MLS/HR Linezolid 300 ml @ 150 mls/hr Q12HR IV 05/26/24 22:00 Cefepime HCl 50 ml @ 12.5 mls/hr DAILY IV 05/27/24 10:00 Norepinephrine Bitartrate 32 mg/ Sodium Chloride 250 ml @ 0.938 mls/ hr Q24H IV 05/26/24 16:30 05/26/24 16:56 0.938 MLS/HR Laboratory Results Laboratory Tests 05/26/24 03:35 05/26/24 11:00 Chemistry Test 05/26/24 03:35 Albumin 3.1 g/dL (3.2-4.8) L Calcium Level 7.8 mg/dL (8.7-10.4) L Magnesium Level 1.8 mg/dL (1.6-2.6) Total Protein 6.6 g/dL (5.7-8.2) Lipid panel Test 05/26/24 03:35 Cholesterol Level 87 mg/dL (< 200) HDL Cholesterol 6 mg/dL (40-59) L Lipase 47 U/L (12-53) Triglycerides Level 164 mg/dL (< 150) H LFT Test 05/26/24 03:35 Alanine Aminotransferase (ALT) 167 U/L (7-40) H Alkaline Phosphatase 98 U/L (46-116) Aspartate Amino Transferase (AST) 246 U/L (13-40) H Total Bilirubin 2.0 mg/dL (0.2-1.0) H Urinalysis Test 05/25/24 08:30 Urine Color Yellow (Yellow) Urine Clarity Clear (Clear) Urine pH 7.5 (5.0-9.0) Urine Specific [place] 1.013 (1.001-1.035) Urine Protein 2+ (Negative) H Urine Ketones Negative (Negative) Urine Blood Negative /uL (Negative) Urine Nitrite Negative (Negative) Urine Bilirubin Negative (Negative) Urine Urobilinogen 8 mg/dL (Negative) H Urine Leukocyte Esterase Negative /uL (Negative) Urine RBC 5 /hpf (0 - 4) Urine WBC 1 /hpf (0 - 5) Urine Squamous Epithelial Cells Few /hpf (<5) Urine Bacteria None seen /hpf (None Seen) Urine Glucose Normal mg/dL (Normal) Blood Gas Results Test 05/25/24 21:42 05/26/24 07:27 Arterial Blood pH 7.296 (7.350-7.450) 7.289 (7.350-7.450) FiO2 % 90.0 40.0 Microbiology Microbiology Date/Time Source Procedure Growth Status 05/25/24 08:30 Urine - [place] Urine Culture - Preliminary Resulted 05/25/24 08:24 Blood Blood Culture - Preliminary Resulted 05/25/24 06:50 Sputum Gram Stain - Final Resulted 05/25/24 06:50 Sputum Respiratory Culture - Preliminary Resulted Labs and/or images reviewed: Labs reviewed by me, Image(s) reviewed by me Assessment/Plan Assessment/Plan Impression: -severe sepsis with shock -probable community-acquired pneumonia with Gram-positive cocci -sepsis with Gram-positive cocci -acute hypoxic respiratory failure with mechanical ventilation -obesity -acute kidney injury, anuric -NSTEMI, probably type 2 -hypoalbuminemia Plan: -change antibiotic therapy to cefepime and Zyvox -bronchodilators -continue current ventilator settings -nephrology consultation: Patient placed on Bumex drip. Still no urine output. Possible HD tomorrow -cardiology consultation: Medical management at this time. Continue statin and ASA -PUD, DVT prophylaxis -continue vasopressor therapy with norepinephrine -start hydrocortisone 50 mg IV b.i.d. -sethi cultures -long discussion made with the patient's son and has been including possibility of hemodialysis and other modalities of care. All questions answered. Critical care time spent with patient discussing and formulating plan of care: 90 minutes. This does not include time spent performing procedures. This medical document was created using an electronic medical record system with [employer] dictation system. Although this document has been carefully reviewed, there may still be some phonetic and typographical errors. These areas are purely typographical due to imperfections of the software programs, and do not reflect any compromise in the patient's medical care. Plan discussed with: Patient, Other (Rn) My Orders Orders - OMAR PARK NP Procedure Category Date Status Time Linezolid 600mg/300ml PHA 05/26/24 In Process (Zyvox) 22:00 Cefepime 1gm/ 50ml PHA 05/27/24 In Process (Maxipime 1gm/50ml) 10:00 Hydrocortisone PHA 05/26/24 Transmitted Succinate Inj 22:00 Basic Metabolic Panel LAB 05/26/24 Transmitted 16:49 Phosphorus LAB 05/26/24 Transmitted 16:49 Uric Acid LAB 05/26/24 Transmitted 16:49 Basic Metabolic Panel LAB 05/27/24 Verified 04:00 Complete Blood Count LAB 05/27/24 Verified 04:00 Chest Portable XY 05/27/24 Transmitted 04:00 Date of Service: May 26, 2024 Billing Provider: OMAR PARK NP Common Visit Codes: [id number] CARE 30-74 MIN, [id number] CARE-EACH +30MIN OMAR PARK NP May 26, 2024 17:02
[2024-05-26 17:22] LABS: Anion Gap 15 (5-15); Potassium 3.7 mmol/L (3.5-5.1); Sodium 139 mmol/L (136-145)
[2024-05-26 17:28] LABS: BUN/Creatinine Ratio 9.2 (10.0-20.0)
[2024-05-26 18:04] LABS: Carbon Dioxide 17 mmol/L (20-31); Chloride 107 mmol/L (98-107); Glucose 191 mg/dL (74-106)
[2024-05-26 18:05] LABS: Blood Urea Nitrogen 68 mg/dL (9-23); Calcium 7.6 mg/dL (8.7-10.4); Phosphorus 7.4 mg/dL (2.4-5.1); Uric Acid 10.9 mg/dL (3.1-7.8)
[2024-05-26] MEDS: HYDROCORTISONE SOD SUCC 100 MG/2ML INJ VIAL IV SCH (21:36)
[2024-05-26] MEDS: LINEZOLID 600MG/300ML 300 ML IV SCH (21:36)
--- NOTE | 2024-05-26 22:58 | DVHPN2 ---
Progress Note - Dictate Date Seen: May 26, 2024 Medical Necessity Reason Pt with a Central, PICC or Fol: Yes The following are medically ne: Putnam Catheter Reason for putnam catheter: Strict I&O Subjective Patient seen and examined at bedside. Sedated, intubated on mechanical ventilator. Overnight events reviewed. vital signs Vital Sign Date Time Temp Pulse Resp B/P (MAP) Pulse Ox O2 Delivery O2 Flow Rate FiO2 05/26/24 22:30 98.4 88 20 114/65 (81) 95 209.1 05/26/24 22:07 40 05/26/24 22:00 Mechanical Ventilator+ 05/25/24 06:29 15 Total Intake and Output 05/25/24 05/25/24 05/26/24 15:00 23:00 07:00 Intake Total 125 ml 727.5 ml 1660.25 ml Output Total 300 ml 275 ml Balance -175 ml 727.5 ml 1385.25 ml medications Current Medications Medications Dose Ordered Sig/Yousif Route Start Time Stop Time Status Last Admin Dose Admin Midazolam HCl 50 ml @ 1 mls/hr Q24H IV 05/25/24 06:30 05/26/24 21:36 15 MLS/HR Aspirin 81 mg DAILY NG 05/26/24 10:00 05/26/24 09:57 81 MG Atorvastatin Calcium 40 mg HS NG 05/25/24 22:00 05/26/24 21:36 40 MG Ondansetron HCl 4 mg Q4HP PRN IV 05/25/24 10:45 Nitroglycerin 0.4 mg Q5MINP PRN SL 05/25/24 10:45 Enoxaparin Sodium 30 mg DAILY SC 05/26/24 10:00 05/26/24 09:57 30 MG Albuterol 2.5 mg Q4HR NEB 05/25/24 14:00 05/26/24 22:07 2.5 MG Ipratropium [place] 0.5 mg Q4HR NEB 05/25/24 14:00 05/26/24 22:07 0.5 MG Phenylephrine HCl 250 ml @ 30 mls/hr Q8H20M IV 05/25/24 11:15 05/26/24 05:04 67.5 MLS/HR Fentanyl Citrate 250 ml @ 2.5 mls/hr Q24H IV 05/25/24 19:30 05/26/24 16:19 17.5 MLS/HR Ibuprofen 400 mg Q4HP PRN GT 05/26/24 01:15 05/26/24 01:42 400 MG Bumetanide 25 mg/ Miscellaneous 100 ml @ 4 mls/hr Q24H IV 05/26/24 13:15 05/26/24 15:01 4 MLS/HR Linezolid 300 ml @ 150 mls/hr Q12HR IV 05/26/24 22:00 05/26/24 21:36 150 MLS/HR Cefepime HCl 50 ml @ 12.5 mls/hr DAILY IV 05/27/24 10:00 Norepinephrine Bitartrate 32 mg/ Sodium Chloride 250 ml @ 0.938 mls/ hr Q24H IV 05/26/24 16:30 05/26/24 16:56 0.938 MLS/HR Hydrocortisone Sodium Succinate 50 mg Q12HR IV 05/26/24 22:00 05/26/24 21:36 50 MG objective Gen.: Patient lying in bed in medical ICU. Sedated, intubated on mechanical ventilator. Head: Normocephalic, atraumatic. Eyes: PERRLA. Ears: Normal external anatomy. Throat: Endotracheal tube and orogastric tube in place. Neck: Supple, trachea midline. Chest: Transmitted breath sounds bilaterally. Decreased air entry bilaterally. No wheezing. Bibasilar crackles. Cardiovascular: Positive S1, positive S2. Regular rate and rhythm. Abdomen: Positive bowel sounds in all 4 quadrants. Soft, nontender, nondistended. : Putnam in place. Normal external genitalia. Rectal: Deferred. Skin: Warm, dry. Intact. Extremities: 2+ radial pulses bilaterally. No lower extremity edema. Neuro: Sedated. laboratory and microbiology Laboratory Tests 05/26/24 11:00 05/26/24 03:35 Test 05/26/24 11:00 Range/Units Serum Glucose 191 H 74-106 mg/dL Assessment/Plan Impression: Acute hypoxic respiratory failure On mechanical ventilator Septic shock Elevated troponin Acute kidney injury Lactic acidosis Metabolic acidosis Multifocal pneumonia, likely gram negative Pulmonary edema AE COPD Events: Remains on vent support On AC mode; RR 20, VT 600, PEEP 10, FiO2 50% Sedated on Versed, Fentanyl Diurese w/ Bumex drip Poor urine output On pressors for hemodynamic support Levophed 8 mcg/min Titrate to keep mean arterial pressure greater than 65 mmHg. Continue antibiotics Echo showed EF of 40%. ABG reviewed, notable for acidemia. CXR demonstrates Bilateral alveolar and interstitial opacities are unchanged. No effusion or pneumothorax. Labs and imaging reviewed. Rest of plan as noted below. Plan: s/p intubation on mechanical ventilator. CXR image and report reviewed. Devices in place. Bilateral opacities. No pneumothorax. No pleural effusion. ABG reviewed. On AC mode; RR 20, VT 600, PEEP 10, FiO2 50% Titrate FIO2 to keep O2 saturation above 90%. VAP bundle. Daily ABG and CXR while intubated Sedate for ventilator synchrony Continue bronchodilators. Steroids Continue antibiotics. F/u cultures. Pressors to maintain a mean arterial blood pressure greater than 65 mmHg. Cardiology recs appreciated. Diurese w/ Bumex as tolerated Monitor renal function Monitor electrolytes. Supplement as necessary. Monitor ins and outs. Nephrology recs appreciated. IV fluid hydration GI prophylaxis. DVT prophylaxis. Prognosis: Poor given patient's multiple co-morbidities. Condition: Critical Rest of plan per hospitalist and other consultants. A total of 35 minutes of critical care time was spent reviewing the patient record, examining the patient, making a diagnostic and therapeutic plan, discussing this plan with the medical personnel, following up on diagnostic studies and following the patient for clinical stability excluding any and all procedures. At least 50% of this time was spent in direct, [id number] contact. Thank you, MIRNA Stratton, for allowing me to participate in this patient's care. Further recommendations will depend on the patient's clinical course. Please do not hesitate to contact me if you have any questions or concerns. This medical document was created using an electronic medical record system with [employer] system. Although these documentations are being carefully reviewed, there may still be some phonetic and typographical changes. The errors are purely typographical, due to imperfection on the software program, and do not reflect any compromise in the patient's medical care. Plan discussed with: Other (LUZMARIA Espinal) Critical Care Time(min): 35 MELODY ELIZABETH MD May 26, 2024 22:58
[2024-05-27] VITALS (101 sets, daily range): BP systolic 76–192; BP diastolic 53–100; PULSE 74–100; RESP 17–46; TEMP 97.2–98.2; O2SAT 90–97
[2024-05-27 04:45] LABS: Hemoglobin 9.7 g/dL (12.2-16.2); Mean Corpuscular Hemoglobin 29.3 pg (28.0-32.0); Mean Corpuscular Hgb Conc. 31.9 g/dL (32.0-36.0)
[2024-05-27 04:47] LABS: Hematocrit 30.4 % (36.0-46.0); Mean Corpuscular Volume 91.9 fL (80.0-100.0); Platelet Count (auto) 334 10^3/uL (140-450); Red Blood Cells 3.31 10^6/uL (4.0-5.20); Red Cell Distribution Width 16.2 % (11.8-14.3)
[2024-05-27 04:51] LABS: Chloride 105 mmol/L (98-107); Potassium 3.7 mmol/L (3.5-5.1); Sodium 139 mmol/L (136-145)
[2024-05-27 04:52] LABS: Anion Gap 15 (5-15)
[2024-05-27 04:57] LABS: BUN/Creatinine Ratio 10.3 (10.0-20.0)
[2024-05-27 05:00] LABS: Calcium 7.6 mg/dL (8.7-10.4); Carbon Dioxide 19 mmol/L (20-31); Glucose 159 mg/dL (74-106)
[2024-05-27 05:01] LABS: Blood Urea Nitrogen 87 mg/dL (9-23); White Blood Cell 36.1 10^3/uL (4.4-10.8)
[2024-05-27 05:02] LABS: Basophils % (manual) 0 (0.0-2.0); Blast Cells 0; Eosinophils % (manual) 0 (0-7); Promyelocytes % 0; Reactive Lymphocytes 0
--- NOTE | 2024-05-27 05:42 | DVH ---
CHEST RADIOGRAPH Indication: pna Technique: Single frontal view of the chest was obtained COMPARISON: XY CHEST XRAY 1 VIEW on DOS: 05/26/24, XY CHEST PORTABLE on DOS: 05/25/24 FINDINGS: Lines and Tubes: Endotracheal tube and enteric catheter in satisfactory position. Lungs: Multifocal airspace disease Pleura: No effusion. No pneumothorax. Cardiomediastinal contours: Cardiomegaly Bones: Unremarkable IMPRESSION: Lines and tubes in satisfactory position. No significant interval change.
[2024-05-27 07:33] LABS: Base Excess -9.7 mmol/L (-2.0-3.0)
--- NOTE | 2024-05-27 08:20 | DVHPN2 ---
Subjective Patient intubated and sedated Reviewed: Care Plan, H&P, Labs, Medications, Previous Orders Changes from previous H/P or p: No Changes General: Per HPI Respiratory: Shortness of breath Objective Vitals Vital Signs Date Time Temp Pulse Resp B/P (MAP) Pulse Ox O2 Delivery O2 Flow Rate FiO2 05/27/24 08:01 84 22 109/55 (73) 94 45 05/27/24 07:00 98.1 208.6 05/27/24 06:00 Mechanical Ventilator+ Intake/Output Intake and Output 05/27/24 06:59 Intake Total 1903.313 ml Output Total 40 ml Balance 1863.313 ml Intake Oral 60 ml IV Total 1843.313 ml Output Urine Total 40 ml Stool Total 0 ml General Appearance: moderate distress HEENT: Atraumatic, PERRLA Lungs: Clear to auscultation, Normal air movement, Other (Mechanical ventilation) Cardiovascular: Normal S1, Normal S2 Abdomen: Normal bowel sounds, Soft, No tenderness, No hepatospenomegaly Musculoskeletal: Normal sensory function, Normal motor function Extremities: No clubbing, No cyanosis, No edema, Normal pulses, No tenderness/swelling Neuro: Normal gait, Normal speech, Strength at 5/5 X4 ext Skin: Dry, Intact Psych/Mental Status: Mental status NL, Mood NL Medications Current Medications Medications Dose Ordered Sig/Yousif Route Start Time Stop Time Status Last Admin Dose Admin Midazolam HCl 50 ml @ 1 mls/hr Q24H IV 05/25/24 06:30 05/27/24 07:06 15 MLS/HR Aspirin 81 mg DAILY NG 05/26/24 10:00 05/26/24 09:57 81 MG Atorvastatin Calcium 40 mg HS NG 05/25/24 22:00 05/26/24 21:36 40 MG Ondansetron HCl 4 mg Q4HP PRN IV 05/25/24 10:45 Nitroglycerin 0.4 mg Q5MINP PRN SL 05/25/24 10:45 Enoxaparin Sodium 30 mg DAILY SC 05/26/24 10:00 05/26/24 09:57 30 MG Albuterol 2.5 mg Q4HR NEB 05/25/24 14:00 05/27/24 06:03 2.5 MG Ipratropium [place] 0.5 mg Q4HR NEB 05/25/24 14:00 05/27/24 06:03 0.5 MG Phenylephrine HCl 250 ml @ 30 mls/hr Q8H20M IV 05/25/24 11:15 05/26/24 05:04 67.5 MLS/HR Fentanyl Citrate 250 ml @ 2.5 mls/hr Q24H IV 05/25/24 19:30 05/26/24 23:41 17.5 MLS/HR Ibuprofen 400 mg Q4HP PRN GT 05/26/24 01:15 05/26/24 01:42 400 MG Bumetanide 25 mg/ Miscellaneous 100 ml @ 4 mls/hr Q24H IV 05/26/24 13:15 05/26/24 15:01 4 MLS/HR Linezolid 300 ml @ 150 mls/hr Q12HR IV 05/26/24 22:00 05/26/24 21:36 150 MLS/HR Cefepime HCl 50 ml @ 12.5 mls/hr DAILY IV 05/27/24 10:00 Norepinephrine Bitartrate 32 mg/ Sodium Chloride 250 ml @ 0.938 mls/ hr Q24H IV 05/26/24 16:30 05/26/24 16:56 0.938 MLS/HR Hydrocortisone Sodium Succinate 50 mg Q12HR IV 05/26/24 22:00 05/26/24 21:36 50 MG Laboratory Results Laboratory Tests 05/27/24 03:35 Chemistry Test 05/26/24 11:00 05/27/24 03:35 Calcium Level 7.6 mg/dL (8.7-10.4) L 7.6 mg/dL (8.7-10.4) L Phosphorus Level 7.4 mg/dL (2.4-5.1) H Urinalysis Test 05/25/24 08:30 Urine Color Yellow (Yellow) Urine Clarity Clear (Clear) Urine pH 7.5 (5.0-9.0) Urine Specific [place] 1.013 (1.001-1.035) Urine Protein 2+ (Negative) H Urine Ketones Negative (Negative) Urine Blood Negative /uL (Negative) Urine Nitrite Negative (Negative) Urine Bilirubin Negative (Negative) Urine Urobilinogen 8 mg/dL (Negative) H Urine Leukocyte Esterase Negative /uL (Negative) Urine RBC 5 /hpf (0 - 4) Urine WBC 1 /hpf (0 - 5) Urine Squamous Epithelial Cells Few /hpf (<5) Urine Bacteria None seen /hpf (None Seen) Urine Glucose Normal mg/dL (Normal) Blood Gas Results Test 05/27/24 07:05 Arterial Blood pH 7.237 (7.350-7.450) FiO2 % 45.0 Microbiology Microbiology Date/Time Source Procedure Growth Status 05/25/24 08:30 Urine - [place] Urine Culture - Preliminary Resulted 05/25/24 08:24 Blood Blood Culture - Preliminary Resulted 05/25/24 06:50 Sputum Gram Stain - Final Resulted 05/25/24 06:50 Sputum Respiratory Culture - Preliminary Resulted Labs and/or images reviewed: Labs reviewed by me, Image(s) reviewed by me Assessment/Plan Assessment/Plan Impression: -severe sepsis with shock -probable community-acquired pneumonia with Gram-positive cocci -sepsis with Gram-positive cocci -acute hypoxic respiratory failure with mechanical ventilation -obesity -acute kidney injury, anuric -NSTEMI, probably type 2 -hypoalbuminemia Plan: Events: Discussed plan of care with patient's family over the phone as well as Nephrology. Patient will require hemodialysis today. Worsening white blood cell count. Patient with 40 mL of urine overnight. -change antibiotic therapy to cefepime and Zyvox -bronchodilators -continue current ventilator settings : Decrease respiratory rate -nephrology consultation: Patient placed on Bumex drip. Still no urine output. Possible HD tomorrow -cardiology consultation: Medical management at this time. Continue statin and ASA -PUD, DVT prophylaxis -continue vasopressor therapy with norepinephrine -hydrocortisone 50 mg IV b.i.d. -sethi cultures -long discussion made with the patient's son and has been including possibility of hemodialysis and other modalities of care. All questions answered. Critical care time spent with patient discussing and formulating plan of care: 90 minutes. This does not include time spent performing procedures. This medical document was created using an electronic medical record system with [employer] system. Although this document has been carefully reviewed, there may still be some phonetic and typographical errors. These areas are purely typographical due to imperfections of the software programs, and do not reflect any compromise in the patient's medical care. Plan discussed with: Patient, Spouse, Son, Other (RN) My Orders Orders - SALBINO,NELSON CHEMICAL TECHNICIAN Procedure Category Date Status Time Linezolid 600mg/300ml PHA 05/26/24 In Process (Zyvox) 22:00 Cefepime 1gm/ 50ml PHA 05/27/24 In Process (Maxipime 1gm/50ml) 10:00 Hydrocortisone PHA 05/26/24 In Process Succinate Inj 22:00 Complete Blood Count LAB 05/27/24 In Process 04:00 Chest Portable XY 05/27/24 Resulted 04:00 Manual Differential LAB 05/27/24 In Process 03:35 Ventilator Orders RT 05/27/24 Transmitted 07:56 Abg W/ Co-Ox RT 05/27/24 Logged 09:00 Basic Metabolic Panel LAB 05/28/24 Verified 05:00 Basic Metabolic Panel LAB 05/29/24 Verified 05:00 Basic Metabolic Panel LAB 05/30/24 Verified 05:00 Chest Portable XY 05/28/24 Verified 05:00 Chest Portable XY 05/29/24 Verified 05:00 Chest Portable XY 05/30/24 Verified 05:00 Abg W/ Co-Ox RT 05/28/24 Verified 05:00 Abg W/ Co-Ox RT 05/29/24 Verified 05:00 Abg W/ Co-Ox RT 05/30/24 Verified 05:00 Complete Blood Count LAB 05/28/24 Verified 05:00 Complete Blood Count LAB 05/29/24 Verified 05:00 Complete Blood Count LAB 05/30/24 Verified 05:00 Date of Service: May 27, 2024 Billing Provider: OMAR PAKR CHEMICAL TECHNICIAN Common Visit Codes: [id number] CARE 30-74 MIN OMAR PARK NP May 27, 2024 08:20
[2024-05-27 08:32] LABS: Monocytes % (manual) 5 (0-12)
[2024-05-27 08:33] LABS: Band Neutrophils % (manual) 6; Lymphocytes % (manual) 6 (10.0-50.0); Metamyelocytes % 1; Myelocytes % 1
[2024-05-27 08:34] LABS: Anisocytosis Slight; Hypochromia Slight; Platelet Estimate Adequate
[2024-05-27] MEDS: SODIUM CHL 0.9% 1000 ML BAG XX ONE (09:00)
--- NOTE | 2024-05-27 09:29 | DVHNC2 ---
Central Line Recorder of insertion practice: Urban Designer Occupation of cement rubber: Other (Derian Park RN) Indication: Other (Hemodialysis) Room prepared for procedure: Yes Urban Designer performed hand hygien: Yes Maximal sterile barrier precau: Mask/Eye shield, Sterile gown, Cap, Sterlie gloves, Large sterlie drape Skin preparation completely dr: Yes Insertion site: Left, Internal jugular Central line catheter type: Dialysis non-tunneled Number of lumens: 2 Central line exchanged over a: Yes Antiseptic ointment applied to: No Post Assessment: Chest X-Ray, Pneumothorax Informed consent obtained: Yes Risks/benefits/alt described: Yes Notes Consent obtained from family. Estimated blood loss: 6 mL Ultrasound guidance used: CPT code 44045 Date of Service: May 27, 2024 Billing Provider: OMAR PARK NP Common Visit Codes: PROCEDURE ONLY Procedure Codes: [id number] NON-TUNNEL CV CATH OMAR PARK NP May 27, 2024 09:29
--- NOTE | 2024-05-27 09:31 | DVHNC2 ---
Arterial Puncture Indication: Assess ventilatory status, Assess acid-base status Procedure: Sterile Preparation, Arterial Punct Obtained Location: Left Radial Informed consent obtained: Yes Risks/benefits/alt described: Yes Notes Obtain consent from family. Indications: Vasopressor therapy with shock. Acid-base imbalance Ultrasound guidance used. CPT code 18808 Date of Service: May 27, 2024 Billing Provider: OMAR PARK NP Common Visit Codes: PROCEDURE ONLY Procedure Codes: [id number] OMAR PARK NP May 27, 2024 09:31
--- NOTE | 2024-05-27 09:59 | DVH ---
CHEST RADIOGRAPH Indication: LINE PLACEMENT VARIFICATION Technique: Single frontal view of the chest was obtained Comparison: XY CHEST PORTABLE on DOS: 05/27/24 FINDINGS: Lines and Tubes: The endotracheal tube terminates 7.2 cm above the nik. Left central venous cathet er terminates in the superior vena cava new since prior study. The enteric tube courses below the lef t hemidiaphragm and the tip extends outside the field of view. Lungs: Airspace disease scattered throughout the left lung. Pleura: No effusion. No pneumothorax. Cardiomediastinal contours: Stable cardiovascular silhouette. Bones: No acute osseous abnormality. IMPRESSION: 1. Interval placement of a left central venous catheter with the tip terminating in the superior vena cava. 2. No significant change in airspace disease.
[2024-05-27] MEDS: CEFEPIME 1GM/ 50ML 50 ML IV SCH (10:00)
[2024-05-27 10:12] LABS: Base Excess -10.9 mmol/L (-2.0-3.0)
--- NOTE | 2024-05-27 12:38 | DVHPN2 ---
Progress Note Date Seen: May 27, 2024 Medical Necessity Reason Pt with a Central, PICC or Fol: Yes The following are medically ne: Putnam Catheter Reason for putnam catheter: Strict I&O Subjective Patient reports: Other (intubated) Review of Systems: Deferred Objective vital signs Vital Sign Date Time Temp Pulse Resp B/P (MAP) Pulse Ox O2 Delivery O2 Flow Rate FiO2 05/27/24 12:30 97.9 77 22 149/78 (101) 94 208.2 145/63 (90) 05/27/24 12:28 40 05/27/24 12:00 Mechanical Ventilator+ Total Intake and Output 05/26/24 05/26/24 05/27/24 15:00 23:00 07:00 Intake Total 780.00 ml 548.605 ml 439.021 ml Output Total 40 ml Balance 780.00 ml 548.605 ml 399.021 ml medications Current Medications Medications Dose Ordered Sig/Yousif Route Start Time Stop Time Status Last Admin Dose Admin Midazolam HCl 50 ml @ 1 mls/hr Q24H IV 05/25/24 06:30 05/27/24 10:54 15 MLS/HR Aspirin 81 mg DAILY NG 05/26/24 10:00 05/26/24 09:57 81 MG Atorvastatin Calcium 40 mg HS NG 05/25/24 22:00 05/26/24 21:36 40 MG Ondansetron HCl 4 mg Q4HP PRN IV 05/25/24 10:45 Nitroglycerin 0.4 mg Q5MINP PRN SL 05/25/24 10:45 Enoxaparin Sodium 30 mg DAILY SC 05/26/24 10:00 05/26/24 09:57 30 MG Albuterol 2.5 mg Q4HR NEB 05/25/24 14:00 05/27/24 10:29 2.5 MG Ipratropium [place] 0.5 mg Q4HR NEB 05/25/24 14:00 05/27/24 10:29 0.5 MG Phenylephrine HCl 250 ml @ 30 mls/hr Q8H20M IV 05/25/24 11:15 05/26/24 05:04 67.5 MLS/HR Fentanyl Citrate 250 ml @ 2.5 mls/hr Q24H IV 05/25/24 19:30 05/27/24 12:08 17.5 MLS/HR Ibuprofen 400 mg Q4HP PRN GT 05/26/24 01:15 05/26/24 01:42 400 MG Bumetanide 25 mg/ Miscellaneous 100 ml @ 4 mls/hr Q24H IV 05/26/24 13:15 05/27/24 08:21 4 MLS/HR Linezolid 300 ml @ 150 mls/hr Q12HR IV 05/26/24 22:00 05/26/24 21:36 150 MLS/HR Cefepime HCl 50 ml @ 12.5 mls/hr DAILY IV 05/27/24 10:00 Norepinephrine Bitartrate 32 mg/ Sodium Chloride 250 ml @ 0.938 mls/ hr Q24H IV 05/26/24 16:30 05/26/24 16:56 0.938 MLS/HR Hydrocortisone Sodium Succinate 50 mg Q12HR IV 05/26/24 22:00 05/26/24 21:36 50 MG Examination: GENERAL:Abnormal, LUNGS:Abnormal, MSK:Abnormal (edema ), SKIN:Normal, NEURO:Abnormal, :Abnormal laboratory and microbiology Laboratory Tests 05/27/24 03:35 Test 05/27/24 03:35 Range/Units Serum Glucose 159 H 74-106 mg/dL Microbiology Date/Time Source Procedure Growth Status 05/25/24 08:30 Urine - [place] Urine Culture - Final Complete 05/25/24 08:24 Blood Blood Culture - Final Streptococcus pneumoniae Complete 05/25/24 06:50 Sputum Gram Stain - Final Resulted 05/25/24 06:50 Sputum Respiratory Culture - Preliminary Resulted Problem List/Assessment/Plan Problem List/Assessment/Plan Acute kidney injury likely ATN Unknown recent baseline Severe sepsis Morbid obesity Ventilator-dependent hypoxic respiratory failure recs delfino cath today and Dialysis today No urine output despite Bumex drip kidney US pending Plan discussed with: Other My Orders My Orders Orders - LAN CHOWDHURY MD Procedure Category Date Status Time Give Un-Diluted PHA 05/26/24 In Process (Gi... W/Bumetanide 13:15 Hemodialysis Orders ORDERS 05/27/24 Transmitted 09:00 Dialysis Nursing ROB 05/27/24 In Process Message 09:00 Document Fluid Input ROB 05/27/24 In Process And Outpu 09:00 LAN CHOWDHURY MD May 27, 2024 12:38
--- NOTE | 2024-05-27 13:42 | DVH ---
INDICATION: karolina TECHNIQUE: Multiple real-time sonographic images of the kidneys and bladder were obtained. COMPARISON: None FINDINGS: The right kidney measures 7 cm in length, which is normal in size. No hydronephrosis. The left kidney measures 9 cm in length, which is normal in size. No hydronephrosis. 2CM LEFT RENAL CYST. Increased bilateral renal echogenicity. No large intraluminal masses are seen in the bladder. TURNER CATHETER PRESENT. IMPRESSION: 1. Bilateral medical renal disease. No hydronephrosis.
[2024-05-27 18:04] LABS: Base Excess -6.7 mmol/L (-2.0-3.0)
--- NOTE | 2024-05-27 18:24 | DVHPN2 ---
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 Objective vital signs Vital Sign Date Time Temp Pulse Resp B/P (MAP) Pulse Ox O2 Delivery O2 Flow Rate FiO2 05/27/24 18:00 97.9 77 22 173/86 (115) 95 208.2 132/82 (99) 05/27/24 18:00 Mechanical Ventilator+ 45 45 Total Intake and Output 05/26/24 05/26/24 05/27/24 15:00 23:00 07:00 Intake Total 780.00 ml 548.605 ml 439.021 ml Output Total 40 ml Balance 780.00 ml 548.605 ml 399.021 ml medications Current Medications Medications Dose Ordered Sig/Yousif Route Start Time Stop Time Status Last Admin Dose Admin Midazolam HCl 50 ml @ 1 mls/hr Q24H IV 05/25/24 06:30 05/27/24 15:54 15 MLS/HR Aspirin 81 mg DAILY NG 05/26/24 10:00 05/26/24 09:57 81 MG Atorvastatin Calcium 40 mg HS NG 05/25/24 22:00 05/26/24 21:36 40 MG Ondansetron HCl 4 mg Q4HP PRN IV 05/25/24 10:45 Nitroglycerin 0.4 mg Q5MINP PRN SL 05/25/24 10:45 Enoxaparin Sodium 30 mg DAILY SC 05/26/24 10:00 05/26/24 09:57 30 MG Albuterol 2.5 mg Q4HR NEB 05/25/24 14:00 05/27/24 13:44 2.5 MG Ipratropium [place] 0.5 mg Q4HR NEB 05/25/24 14:00 05/27/24 13:44 0.5 MG Phenylephrine HCl 250 ml @ 30 mls/hr Q8H20M IV 05/25/24 11:15 05/26/24 05:04 67.5 MLS/HR Fentanyl Citrate 250 ml @ 2.5 mls/hr Q24H IV 05/25/24 19:30 05/27/24 12:08 17.5 MLS/HR Ibuprofen 400 mg Q4HP PRN GT 05/26/24 01:15 05/26/24 01:42 400 MG Bumetanide 25 mg/ Miscellaneous 100 ml @ 4 mls/hr Q24H IV 05/26/24 13:15 05/27/24 08:21 4 MLS/HR Linezolid 300 ml @ 150 mls/hr Q12HR IV 05/26/24 22:00 05/26/24 21:36 150 MLS/HR Cefepime HCl 50 ml @ 12.5 mls/hr DAILY IV 05/27/24 10:00 Norepinephrine Bitartrate 32 mg/ Sodium Chloride 250 ml @ 0.938 mls/ hr Q24H IV 05/26/24 16:30 05/26/24 16:56 0.938 MLS/HR Hydrocortisone Sodium Succinate 50 mg Q12HR IV 05/26/24 22:00 05/26/24 21:36 50 MG Examination: GENERAL:Abnormal, LUNGS:Abnormal (Mechanically ventilated), CVS:Normal, NEURO:Abnormal (Chemically sedated) laboratory and microbiology Laboratory Tests 05/27/24 03:35 Test 05/27/24 03:35 Range/Units Serum Glucose 159 H 74-106 mg/dL Problem List/Assessment/Plan Problem List/Assessment/Plan NSTEMI Acute on chronic HFrEF, NYHA class IV, newly diagnosed Mitral valve regurgitation, mild degree Septic shock Acute hypoxic respiratory failure History of hypertension Acute kidney injury Morbidly obese Plan/Recommendation (Dr. Benson): * Echocardiogram reveals EF 40% with severe concentric LVH * Unable to initiate GDMT given current vasopressor therapy * Vasopressors for hemodynamic support: Quad strength to prevent fluid overload * IV diuresis as tolerated * Cardiac surveillance: Monitor and notify for any ECG changes * DVT/VTE prophylaxis * Antibiotics per primary care team Patient seen and examined at bedside with . At this time we will continue with conservative medical management. Troponin levels trending down. Further recommendations per clinical course and progression. Thank you for allowing us to care for this patient. Please call with any questions or concerns. This medical document was created using an electronic medical record system with voice recognition software and computerized dictation system. Although this document has been carefully reviewed, there might still be some phonetic and typographical errors. Occasional wrong-word or ``sound-alike substitutions may have occurred due to the inherent limitations of voice recognition software. These areas are purely typographical due to imperfections of the software programs and do not reflect any compromise in the patient's medical care. Please read the chart carefully and recognize, using context, where these substitutions have occurred. Plan discussed with: Other (Bedside RN) Date of Service: May 27, 2024 Billing Provider: CJ BENSON MD Common Visit Codes: [id number] CARE 30-74 MIN BOB TREVINO MANAGER ORGANIZATIONAL May 27, 2024 18:24
--- NOTE | 2024-05-27 23:37 | DVHPN2 ---
Progress Note - Dictate Date Seen: May 27, 2024 Medical Necessity Reason Pt with a Central, PICC or Fol: Yes The following are medically ne: Putnam Catheter Reason for putnam catheter: Strict I&O Subjective Patient seen and examined at bedside. Sedated, intubated on mechanical ventilator. Overnight events reviewed. vital signs Vital Sign Date Time Temp Pulse Resp B/P (MAP) Pulse Ox O2 Delivery O2 Flow Rate FiO2 05/27/24 22:30 97.9 79 20 128/68 (88) 94 208.2 107/97 (100) 05/27/24 22:20 35 05/27/24 22:00 Mechanical Ventilator+ Total Intake and Output 05/26/24 05/26/24 05/27/24 15:00 23:00 07:00 Intake Total 780.00 ml 548.605 ml 439.021 ml Output Total 40 ml Balance 780.00 ml 548.605 ml 399.021 ml medications Current Medications Medications Dose Ordered Sig/Yousif Route Start Time Stop Time Status Last Admin Dose Admin Midazolam HCl 50 ml @ 1 mls/hr Q24H IV 05/25/24 06:30 05/27/24 22:01 15 MLS/HR Aspirin 81 mg DAILY NG 05/26/24 10:00 05/26/24 09:57 81 MG Atorvastatin Calcium 40 mg HS NG 05/25/24 22:00 05/27/24 21:29 40 MG Ondansetron HCl 4 mg Q4HP PRN IV 05/25/24 10:45 Nitroglycerin 0.4 mg Q5MINP PRN SL 05/25/24 10:45 Enoxaparin Sodium 30 mg DAILY SC 05/26/24 10:00 05/26/24 09:57 30 MG Albuterol 2.5 mg Q4HR NEB 05/25/24 14:00 05/27/24 22:27 2.5 MG Ipratropium [place] 0.5 mg Q4HR NEB 05/25/24 14:00 05/27/24 22:27 0.5 MG Phenylephrine HCl 250 ml @ 30 mls/hr Q8H20M IV 05/25/24 11:15 05/26/24 05:04 67.5 MLS/HR Fentanyl Citrate 250 ml @ 2.5 mls/hr Q24H IV 05/25/24 19:30 05/27/24 12:08 17.5 MLS/HR Ibuprofen 400 mg Q4HP PRN GT 05/26/24 01:15 05/26/24 01:42 400 MG Bumetanide 25 mg/ Miscellaneous 100 ml @ 4 mls/hr Q24H IV 05/26/24 13:15 05/27/24 08:21 4 MLS/HR Linezolid 300 ml @ 150 mls/hr Q12HR IV 05/26/24 22:00 05/27/24 21:28 150 MLS/HR Cefepime HCl 50 ml @ 12.5 mls/hr DAILY IV 05/27/24 10:00 Norepinephrine Bitartrate 32 mg/ Sodium Chloride 250 ml @ 0.938 mls/ hr Q24H IV 05/26/24 16:30 05/26/24 16:56 0.938 MLS/HR Hydrocortisone Sodium Succinate 50 mg Q12HR IV 05/26/24 22:00 05/27/24 21:29 50 MG objective Gen.: Patient lying in bed in medical ICU. Sedated, intubated on mechanical ventilator. Head: Normocephalic, atraumatic. Eyes: PERRLA. Ears: Normal external anatomy. Throat: Endotracheal tube and orogastric tube in place. Neck: Supple, trachea midline. Chest: Transmitted breath sounds bilaterally. Decreased air entry bilaterally. No wheezing. Bibasilar crackles. Cardiovascular: Positive S1, positive S2. Regular rate and rhythm. Abdomen: Positive bowel sounds in all 4 quadrants. Soft, nontender, nondistended. : Putnam in place. Normal external genitalia. Rectal: Deferred. Skin: Warm, dry. Intact. Extremities: 2+ radial pulses bilaterally. No lower extremity edema. Neuro: Sedated. laboratory and microbiology Laboratory Tests 05/27/24 03:35 Test 05/27/24 03:35 Range/Units Serum Glucose 159 H 74-106 mg/dL Assessment/Plan Impression: Acute hypoxic respiratory failure On mechanical ventilator Septic shock Elevated troponin Acute kidney injury Lactic acidosis Metabolic acidosis Multifocal pneumonia, likely gram negative Pulmonary edema AE COPD Events: Remains on vent support On AC mode; RR 20, VT 600, PEEP 10, FiO2 50% -->45% Sedated on Versed 15 mg/hr, Fentanyl 175 mcg/hr S/p hemodialysis today - 1 liter removed. Obtain STAT ABG CXR demonstrates scattered airspace disease, left lung. Devices in place. Diurese w/ Bumex drip Poor urine output Monitor renal function Monitor ins and outs On pressors for hemodynamic support Levophed 6 mcg/min Titrate to keep mean arterial pressure greater than 65 mmHg. Improving pressor requirements Continue antibiotics F/u blood cultures Echo showed EF of 40%. Labs and imaging reviewed. Rest of plan as noted below. Plan: s/p intubation on mechanical ventilator. CXR image and report reviewed. Devices in place. Bilateral opacities. No pneumothorax. No pleural effusion. ABG reviewed. On AC mode; RR 20, VT 600, PEEP 10, FiO2 45% Titrate FIO2 to keep O2 saturation above 90%. VAP bundle. Daily ABG and CXR while intubated Sedate for ventilator synchrony Continue bronchodilators. Steroids Continue antibiotics. F/u cultures. Pressors to maintain a mean arterial blood pressure greater than 65 mmHg. Cardiology recs appreciated. Diurese w/ Bumex as tolerated Monitor renal function Monitor electrolytes. Supplement as necessary. Monitor ins and outs. Nephrology recs appreciated. IV fluid hydration GI prophylaxis. DVT prophylaxis. Prognosis: Poor given patient's multiple co-morbidities. Condition: Critical Rest of plan per hospitalist and other consultants. A total of 35 minutes of critical care time was spent reviewing the patient record, examining the patient, making a diagnostic and therapeutic plan, discussing this plan with the medical personnel, following up on diagnostic studies and following the patient for clinical stability excluding any and all procedures. At least 50% of this time was spent in direct, [id number] contact. Thank you, MIRNA Stratton, for allowing me to participate in this patient's care. Further recommendations will depend on the patient's clinical course. Please do not hesitate to contact me if you have any questions or concerns. This medical document was created using an electronic medical record system with [employer] dictation system. Although these documentations are being carefully reviewed, there may still be some phonetic and typographical changes. The errors are purely typographical, due to imperfection on the software program, and do not reflect any compromise in the patient's medical care. Plan discussed with: Other (LUZMARIA Hopkins) Critical Care Time(min): 35 MELODY ELIZABETH MD May 27, 2024 23:37
[2024-05-28] VITALS (107 sets, daily range): BP systolic 70–163; BP diastolic 50–104; PULSE 64–77; RESP 18–23; TEMP 96.8–98.4; O2SAT 93–99
[2024-05-28 02:14] LABS: Creatinine, Urine 248.25 mg/dL (30.0-125.0); Protein, Urine 293.2 mg/dL (1-14)
[2024-05-28 04:50] LABS: Hematocrit 25.5 % (36.0-46.0); Hemoglobin 8.5 g/dL (12.2-16.2); Mean Corpuscular Hemoglobin 29.8 pg (28.0-32.0); Mean Corpuscular Hgb Conc. 33.3 g/dL (32.0-36.0); Mean Corpuscular Volume 89.6 fL (80.0-100.0); Platelet Count (auto) 263 10^3/uL (140-450); Red Blood Cells 2.84 10^6/uL (4.0-5.20); Red Cell Distribution Width 15.4 % (11.8-14.3); White Blood Cell 22.9 10^3/uL (4.4-10.8)
[2024-05-28 04:54] LABS: Anion Gap 13 (5-15); Chloride 106 mmol/L (98-107); Sodium 138 mmol/L (136-145)
[2024-05-28 04:57] LABS: Basophils % (manual) 0 (0.0-2.0); Blast Cells 0; Eosinophils % (manual) 0 (0-7); Metamyelocytes % 0; Myelocytes % 0; Promyelocytes % 0; Reactive Lymphocytes 0
[2024-05-28 05:00] LABS: BUN/Creatinine Ratio 10.4 (10.0-20.0)
--- NOTE | 2024-05-28 05:37 | DVH ---
CHEST RADIOGRAPH Indication: pna Technique: Single frontal view of the chest was obtained Comparison: XY CHEST PORTABLE on DOS: 05/27/24 FINDINGS: Lines and Tubes: The endotracheal tube terminates 6.2 cm above the nik. Right central venous cath eter terminates in the superior vena cava. The enteric tube passes below the left hemidiaphragm with the tip is not well seen. Lungs: Left upper and lower lung zone airspace disease is unchanged. Pleura: No effusion. No pneumothorax. Cardiomediastinal contours: Cardiomegaly. Bones: No acute osseous abnormality. IMPRESSION: 1. No significant interval change.
[2024-05-28 05:55] LABS: Blood Urea Nitrogen 84 mg/dL (9-23); Calcium 7.8 mg/dL (8.7-10.4); Carbon Dioxide 19 mmol/L (20-31); Glucose 140 mg/dL (74-106); Potassium 3.2 mmol/L (3.5-5.1)
[2024-05-28 06:14] LABS: Band Neutrophils % (manual) 1; Lymphocytes % (manual) 4 (10.0-50.0); Monocytes % (manual) 5 (0-12); Smudge Cells 1 /100 WBC
[2024-05-28 06:15] LABS: Platelet Estimate Adequate
--- NOTE | 2024-05-28 08:32 | DVHPN2 ---
Subjective Patient intubated and sedated Reviewed: Care Plan, H&P, Labs, Medications, Previous Orders Changes from previous H/P or p: No Changes General: Per HPI Respiratory: Shortness of breath Objective Vitals Vital Signs Date Time Temp Pulse Resp B/P (MAP) Pulse Ox O2 Delivery O2 Flow Rate FiO2 05/28/24 06:45 97.3 69 22 132/68 (89) 97 207.1 05/28/24 06:34 35 05/28/24 06:00 Mechanical Ventilator+ Intake/Output Intake and Output 05/28/24 07:00 Intake Total 1216.693 ml Output Total 68 ml Balance 1148.693 ml Intake Oral 50 ml IV Total 1166.693 ml Output Urine Total 68 ml Stool Total 0 ml General Appearance: moderate distress, Other (Patient intubated and chemically sedated.) HEENT: Atraumatic, PERRLA Lungs: Clear to auscultation, Normal air movement, Other (Mechanical ventilation) Cardiovascular: Normal S1, Normal S2 Abdomen: Normal bowel sounds, Soft, No tenderness, No hepatospenomegaly Musculoskeletal: Normal sensory function, Normal motor function Extremities: No clubbing, No cyanosis, No edema, Normal pulses, No tenderness/swelling Neuro: Normal gait, Normal speech, Strength at 5/5 X4 ext Skin: Dry, Intact Psych/Mental Status: Mental status NL, Mood NL Medications Current Medications Medications Dose Ordered Sig/Yousif Route Start Time Stop Time Status Last Admin Dose Admin Midazolam HCl 50 ml @ 1 mls/hr Q24H IV 05/25/24 06:30 05/28/24 07:20 15 MLS/HR Aspirin 81 mg DAILY NG 05/26/24 10:00 05/26/24 09:57 81 MG Atorvastatin Calcium 40 mg HS NG 05/25/24 22:00 05/27/24 21:29 40 MG Ondansetron HCl 4 mg Q4HP PRN IV 05/25/24 10:45 Nitroglycerin 0.4 mg Q5MINP PRN SL 05/25/24 10:45 Enoxaparin Sodium 30 mg DAILY SC 05/26/24 10:00 05/26/24 09:57 30 MG Albuterol 2.5 mg Q4HR NEB 05/25/24 14:00 05/28/24 06:34 2.5 MG Ipratropium [place] 0.5 mg Q4HR NEB 05/25/24 14:00 05/28/24 06:34 0.5 MG Phenylephrine HCl 250 ml @ 30 mls/hr Q8H20M IV 05/25/24 11:15 05/26/24 05:04 67.5 MLS/HR Fentanyl Citrate 250 ml @ 2.5 mls/hr Q24H IV 05/25/24 19:30 05/28/24 02:07 17.5 MLS/HR Ibuprofen 400 mg Q4HP PRN GT 05/26/24 01:15 05/26/24 01:42 400 MG Bumetanide 25 mg/ Miscellaneous 100 ml @ 4 mls/hr Q24H IV 05/26/24 13:15 05/27/24 08:21 4 MLS/HR Linezolid 300 ml @ 150 mls/hr Q12HR IV 05/26/24 22:00 05/27/24 21:28 150 MLS/HR Cefepime HCl 50 ml @ 12.5 mls/hr DAILY IV 05/27/24 10:00 Norepinephrine Bitartrate 32 mg/ Sodium Chloride 250 ml @ 0.938 mls/ hr Q24H IV 05/26/24 16:30 05/26/24 16:56 0.938 MLS/HR Hydrocortisone Sodium Succinate 50 mg Q12HR IV 05/26/24 22:00 05/27/24 21:29 50 MG Laboratory Results Laboratory Tests 05/28/24 03:43 Chemistry Test 05/28/24 03:43 Calcium Level 7.8 mg/dL (8.7-10.4) L Urinalysis Test 05/25/24 08:30 05/28/24 01:30 Urine Color Yellow (Yellow) Urine Clarity Clear (Clear) Urine pH 7.5 (5.0-9.0) Urine Specific [place] 1.013 (1.001-1.035) Urine Protein 2+ (Negative) H Urine Ketones Negative (Negative) Urine Blood Negative /uL (Negative) Urine Nitrite Negative (Negative) Urine Bilirubin Negative (Negative) Urine Urobilinogen 8 mg/dL (Negative) H Urine Leukocyte Esterase Negative /uL (Negative) Urine RBC 5 /hpf (0 - 4) Urine WBC 1 /hpf (0 - 5) Urine Squamous Epithelial Cells Few /hpf (<5) Urine Bacteria None seen /hpf (None Seen) Urine Glucose Normal mg/dL (Normal) Urine Creatinine 248.25 mg/dL (30.0-125.0) H Urine Sodium 27 mmol/L (40-220) L Urine Total Protein 293.2 mg/dL (1-14) H Blood Gas Results Test 05/27/24 09:51 05/27/24 17:55 Arterial Blood pH 7.243 (7.350-7.450) 7.348 (7.350-7.450) FiO2 % 45.0 35.0 Microbiology Microbiology Date/Time Source Procedure Growth Status 05/25/24 08:30 Urine - [place] Urine Culture - Final Complete 05/25/24 08:24 Blood Blood Culture - Final Streptococcus pneumoniae Complete 05/25/24 06:50 Sputum Gram Stain - Final Resulted 05/25/24 06:50 Sputum Respiratory Culture - Preliminary Resulted Labs and/or images reviewed: Labs reviewed by me, Image(s) reviewed by me Assessment/Plan Assessment/Plan Impression: -severe sepsis with shock , Streptococcus pneumoniae -probable community-acquired pneumonia with Gram-positive cocci -sepsis with Gram-positive cocci -acute hypoxic respiratory failure with mechanical ventilation -obesity -acute kidney injury, anuric -NSTEMI, probably type 2 -hypoalbuminemia Plan: Events: Patient clinically improving with vasopressor therapy weaned off as well as white blood cell count improving. -continue cefepime and Zyvox until all cultures are final -bronchodilators -continue current ventilator settings. Patient now on 35% FiO2 -nephrology consultation: HD has been initiated -cardiology consultation: Medical management at this time. Continue statin and ASA -PUD, DVT prophylaxis -continue vasopressor therapy with norepinephrine -repeat labs, chest x-ray, ABG in a.m.. Critical care time spent with patient discussing and formulating plan of care: 90 minutes. This does not include time spent performing procedures. This medical document was created using an electronic medical record system with [employer] system. Although this document has been carefully reviewed, there may still be some phonetic and typographical errors. These areas are purely typographical due to imperfections of the software programs, and do not reflect any compromise in the patient's medical care. Plan discussed with: Patient, Other (RN) My Orders Orders - OMAR PARK STORE CLERK CHECKER Procedure Category Date Status Time Chest Portable XY 1/9/25 Resulted 09:36 Sepsis Initial ROB 05/27/24 In Process Assessment 12:22 Sepsis Reassessment ROB 05/27/24 In Process After Flui 14:22 * Dietary Consult CONS 05/27/24 Transmitted 12:22 Mrsa Screen JO-ANN 05/27/24 In Process 08:50 Cleanse Wound With ROB 05/27/24 In Process Mild Soap A 15:00 Date of Service: May 28, 2024 Billing Provider: OMAR PARK NP Common Visit Codes: [id number] CARE 30-74 MIN OMAR PARK NP May 28, 2024 08:32
[2024-05-28 09:01] LABS: Base Excess -6.5 mmol/L (-2.0-3.0)
--- NOTE | 2024-05-28 16:44 | DVHPN2 ---
Consult Progress Note Subjective Other Systems: Patient remains chemically sedated and mechanically ventilated Objective vital signs Vital Sign Date Time Temp Pulse Resp B/P (MAP) Pulse Ox O2 Delivery O2 Flow Rate FiO2 05/28/24 15:55 65 22 100/79 (86) 97 35 05/28/24 08:00 Mechanical Ventilator+ 05/28/24 06:45 97.3 207.1 Total Intake and Output 05/27/24 05/27/24 05/28/24 15:00 23:00 07:00 Intake Total 318.252 ml 307.003 ml 591.438 ml Output Total 50 ml 18 ml Balance 318.252 ml 257.003 ml 573.438 ml medications Current Medications Medications Dose Ordered Sig/Yousif Route Start Time Stop Time Status Last Admin Dose Admin Midazolam HCl 50 ml @ 1 mls/hr Q24H IV 05/25/24 06:30 05/28/24 14:12 14 MLS/HR Aspirin 81 mg DAILY NG 05/26/24 10:00 05/28/24 10:30 81 MG Atorvastatin Calcium 40 mg HS NG 05/25/24 22:00 05/27/24 21:29 40 MG Ondansetron HCl 4 mg Q4HP PRN IV 05/25/24 10:45 Nitroglycerin 0.4 mg Q5MINP PRN SL 05/25/24 10:45 Enoxaparin Sodium 30 mg DAILY SC 05/26/24 10:00 05/28/24 10:31 30 MG Albuterol 2.5 mg Q4HR NEB 05/25/24 14:00 05/28/24 13:59 2.5 MG Ipratropium [place] 0.5 mg Q4HR NEB 05/25/24 14:00 05/28/24 13:59 0.5 MG Phenylephrine HCl 250 ml @ 30 mls/hr Q8H20M IV 05/25/24 11:15 05/26/24 05:04 67.5 MLS/HR Fentanyl Citrate 250 ml @ 2.5 mls/hr Q24H IV 05/25/24 19:30 05/28/24 14:22 17.5 MLS/HR Ibuprofen 400 mg Q4HP PRN GT 05/26/24 01:15 05/26/24 01:42 400 MG Linezolid 300 ml @ 150 mls/hr Q12HR IV 05/26/24 22:00 05/28/24 10:29 150 MLS/HR Norepinephrine Bitartrate 32 mg/ Sodium Chloride 250 ml @ 0.938 mls/ hr Q24H IV 05/26/24 16:30 05/26/24 16:56 0.938 MLS/HR Cefepime HCl 0.5 gm/Dextrose 50 ml @ 12.5 mls/hr Q24H IV 05/29/24 18:00 Examination: GENERAL:Abnormal, LUNGS:Abnormal (Mechanically ventilated), CVS:Normal, NEURO:Abnormal (Chemically sedated) laboratory and microbiology Laboratory Tests 05/28/24 03:43 Test 05/28/24 03:43 Range/Units Serum Glucose 140 H 74-106 mg/dL Problem List/Assessment/Plan Problem List/Assessment/Plan Septic shock Acute on chronic HFrEF, NYHA class IV, newly diagnosed Acute hypoxic respiratory failure NSTEMI, likely type II secondary to above Mitral valve regurgitation, mild degree History of hypertension Acute kidney injury Morbidly obese Plan/Recommendation (Dr. Mathur): * Echocardiogram reveals EF 40% with severe concentric LVH * Initiate GDMT for CHF with stable BP (now off vasopressors) * IV diuresis as tolerated * Lipid-lowering agent * Cardiac surveillance: Monitor and notify for any ECG changes * DVT/VTE prophylaxis * Antibiotics per primary care team Patient seen and examined at bedside with . Thank you for allowing us to care for this patient. Please call with any questions or concerns. Critical care time spent: 38 minutes. This medical document was created using an electronic medical record system with voice recognition software and computerized dictation system. Although this document has been carefully reviewed, there might still be some phonetic and typographical errors. Occasional wrong-word or ``sound-alike substitutions may have occurred due to the inherent limitations of voice recognition software. These areas are purely typographical due to imperfections of the software programs and do not reflect any compromise in the patient's medical care. Please read the chart carefully and recognize, using context, where these substitutions have occurred. Plan discussed with: Other (Bedside RN) Dietary Evaluation Review Comments: 1) If GI is accessible consider Jevity 1.2 @ 70ml/hr x 24hr continuous feed goal rate as tolerated 2) If pt remains NPO >7 days consider TPN to meet at least 75% of estimated needs 3) Advance pt diet when medically feasible to a 2gm Sodium diet modified per BUILDINGS AND GROUNDS COORDINATOR recommendations 4) Continue current plan of care Expected Outcomes/Goals: 1) Pt to receive nutrition support within 7 days of NPO status 2) Pt diet to advance 3) F/U in 2-3 days Date of Service: May 28, 2024 Billing Provider: BOB TREVINO Common Visit Codes: [id number] CARE 30-74 MIN BOB TREVINO May 28, 2024 16:44
--- NOTE | 2024-05-28 20:55 | DVHPN2 ---
Consult Progress Note Subjective Other Systems: Patient was seen and evaluated in follow up in the ICU. Patient is intubated and sedated on ventilator. 30 % FiO2. Fiance and son at bedside. WBC 22.9, HGB 8.5, HCT 25.5, K 3.2, BUN 84, CRUSHER DRY GROUND MICA 8.09. Objective vital signs Vital Sign Date Time Temp Pulse Resp B/P (MAP) Pulse Ox O2 Delivery O2 Flow Rate FiO2 05/28/24 18:00 67 05/28/24 18:00 22 97 Mechanical Ventilator+ 30 30 05/28/24 17:00 96.8 158/75 (102) 206.2 112/98 (103) Total Intake and Output 05/27/24 05/27/24 05/28/24 15:00 23:00 07:00 Intake Total 318.252 ml 307.003 ml 623.938 ml Output Total 50 ml 18 ml Balance 318.252 ml 257.003 ml 605.938 ml medications Current Medications Medications Dose Ordered Sig/Yousif Route Start Time Stop Time Status Last Admin Dose Admin Midazolam HCl 50 ml @ 1 mls/hr Q24H IV 05/25/24 06:30 05/28/24 17:32 13 MLS/HR Aspirin 81 mg DAILY NG 05/26/24 10:00 05/28/24 10:30 81 MG Atorvastatin Calcium 40 mg HS NG 05/25/24 22:00 05/27/24 21:29 40 MG Ondansetron HCl 4 mg Q4HP PRN IV 05/25/24 10:45 Nitroglycerin 0.4 mg Q5MINP PRN SL 05/25/24 10:45 Enoxaparin Sodium 30 mg DAILY SC 05/26/24 10:00 05/28/24 10:31 30 MG Albuterol 2.5 mg Q4HR NEB 05/25/24 14:00 05/28/24 19:07 2.5 MG Ipratropium [place] 0.5 mg Q4HR NEB 05/25/24 14:00 05/28/24 19:07 0.5 MG Phenylephrine HCl 250 ml @ 30 mls/hr Q8H20M IV 05/25/24 11:15 05/26/24 05:04 67.5 MLS/HR Fentanyl Citrate 250 ml @ 2.5 mls/hr Q24H IV 05/25/24 19:30 05/28/24 14:22 17.5 MLS/HR Ibuprofen 400 mg Q4HP PRN GT 05/26/24 01:15 05/26/24 01:42 400 MG Linezolid 300 ml @ 150 mls/hr Q12HR IV 05/26/24 22:00 05/28/24 10:29 150 MLS/HR Norepinephrine Bitartrate 32 mg/ Sodium Chloride 250 ml @ 0.938 mls/ hr Q24H IV 05/26/24 16:30 05/26/24 16:56 0.938 MLS/HR Cefepime HCl 0.5 gm/Dextrose 50 ml @ 12.5 mls/hr Q24H IV 05/29/24 18:00 Examination: GENERAL:Abnormal (intubated on ventiilator), HEENT:Normal, NECK:Normal, LUNGS:Abnormal (Diminshed breath sounds ), CVS:Normal, ABDOMEN:Normal, MSK:Normal, SKIN:Normal, NEURO:Abnormal (Sedated ) laboratory and microbiology Laboratory Tests 05/28/24 03:43 Test 05/28/24 03:43 Range/Units Serum Glucose 140 H 74-106 mg/dL Problem List/Assessment/Plan Problem List/Assessment/Plan Septic shock. Acute on chronic HFrEF, NYHA class IV, newly diagnosed. Acute hypoxic respiratory failure. NSTEMI, likely type II secondary to above. Mitral valve regurgitation, mild degree. History of hypertension. Acute kidney injury. Morbidly obese. Plan/Recommendation Continued all current supportive medical care. Patient has been seen by Lory Norris NP on my behalf, her and I discussed the plan with the patient. Echocardiogram reveals EF 40% with severe concentric LVH. Initiate GDMT for CHF with stable BP (now off vasopressors). IV diuresis as tolerated. Lipid-lowering agent. Cardiac surveillance: Monitor and notify for any ECG changes. DVT/VTE prophylaxis. Antibiotics per primary care team. Additional plan as per the hospital course. Plan discussed with: Other Dietary Evaluation Review Comments: 1) If GI is accessible consider Jevity 1.2 @ 70ml/hr x 24hr continuous feed goal rate as tolerated 2) If pt remains NPO >7 days consider TPN to meet at least 75% of estimated needs 3) Advance pt diet when medically feasible to a 2gm Sodium diet modified per REGULATORY LEADER recommendations 4) Continue current plan of care Expected Outcomes/Goals: 1) Pt to receive nutrition support within 7 days of NPO status 2) Pt diet to advance 3) F/U in 2-3 days Date of Service: May 28, 2024 Billing Provider: RAMON CURRY MD Cardiology Common Codes: [id number] CARE 30-74 MIN RAMON CURRY MD May 28, 2024 19:31
--- NOTE | 2024-05-28 23:46 | DVHPN2 ---
Progress Note - Dictate Date Seen: May 28, 2024 Medical Necessity Reason Pt with a Central, PICC or Fol: Yes The following are medically ne: Putnam Catheter Reason for putnam catheter: Strict I&O Subjective Patient seen and examined at bedside. Sedated, intubated on mechanical ventilator. Overnight events reviewed. vital signs Vital Sign Date Time Temp Pulse Resp B/P (MAP) Pulse Ox O2 Delivery O2 Flow Rate FiO2 05/28/24 23:30 98.2 69 22 124/59 (80) 94 208.8 96/91 (93) 05/28/24 22:00 30 05/28/24 22:00 Mechanical Ventilator+ Total Intake and Output 05/27/24 05/27/24 05/28/24 15:00 23:00 07:00 Intake Total 318.252 ml 307.003 ml 623.938 ml Output Total 50 ml 18 ml Balance 318.252 ml 257.003 ml 605.938 ml medications Current Medications Medications Dose Ordered Sig/Yousif Route Start Time Stop Time Status Last Admin Dose Admin Midazolam HCl 50 ml @ 1 mls/hr Q24H IV 05/25/24 06:30 05/28/24 21:31 13 MLS/HR Aspirin 81 mg DAILY NG 05/26/24 10:00 05/28/24 10:30 81 MG Atorvastatin Calcium 40 mg HS NG 05/25/24 22:00 05/28/24 21:31 40 MG Ondansetron HCl 4 mg Q4HP PRN IV 05/25/24 10:45 Nitroglycerin 0.4 mg Q5MINP PRN SL 05/25/24 10:45 Enoxaparin Sodium 30 mg DAILY SC 05/26/24 10:00 05/28/24 10:31 30 MG Albuterol 2.5 mg Q4HR NEB 05/25/24 14:00 05/28/24 21:58 2.5 MG Ipratropium [place] 0.5 mg Q4HR NEB 05/25/24 14:00 05/28/24 21:58 0.5 MG Phenylephrine HCl 250 ml @ 30 mls/hr Q8H20M IV 05/25/24 11:15 05/26/24 05:04 67.5 MLS/HR Fentanyl Citrate 250 ml @ 2.5 mls/hr Q24H IV 05/25/24 19:30 05/28/24 14:22 17.5 MLS/HR Ibuprofen 400 mg Q4HP PRN GT 05/26/24 01:15 05/26/24 01:42 400 MG Linezolid 300 ml @ 150 mls/hr Q12HR IV 05/26/24 22:00 05/28/24 21:30 150 MLS/HR Norepinephrine Bitartrate 32 mg/ Sodium Chloride 250 ml @ 0.938 mls/ hr Q24H IV 05/26/24 16:30 05/26/24 16:56 0.938 MLS/HR Cefepime HCl 0.5 gm/Dextrose 50 ml @ 12.5 mls/hr Q24H IV 05/29/24 18:00 objective Gen.: Patient lying in bed in medical ICU. Sedated, intubated on mechanical ventilator. Head: Normocephalic, atraumatic. Eyes: PERRLA. Ears: Normal external anatomy. Throat: Endotracheal tube and orogastric tube in place. Neck: Supple, trachea midline. Chest: Transmitted breath sounds bilaterally. Decreased air entry bilaterally. No wheezing. Bibasilar crackles. Cardiovascular: Positive S1, positive S2. Regular rate and rhythm. Abdomen: Positive bowel sounds in all 4 quadrants. Soft, nontender, nondistended. : Putnam in place. Normal external genitalia. Rectal: Deferred. Skin: Warm, dry. Intact. Extremities: 2+ radial pulses bilaterally. No lower extremity edema. Neuro: Sedated. laboratory and microbiology Laboratory Tests 05/28/24 03:43 Test 05/28/24 03:43 Range/Units Serum Glucose 140 H 74-106 mg/dL Assessment/Plan Impression: Acute hypoxic respiratory failure On mechanical ventilator Septic shock Elevated troponin Acute kidney injury Lactic acidosis Metabolic acidosis Multifocal pneumonia, likely gram negative Pulmonary edema AE COPD Events: Remains on vent support On AC mode; RR 20 -->22, VT 600, PEEP 10 -->6, FiO2 45 -->30% Sedated on Versed 15 mg/hr, Fentanyl 175 mcg/hr Off pressors, hemodynamically stable. S/p hemodialysis today ABG reviewed, compensated CXR demonstrates Left upper and lower lung zone airspace disease. Devices in place. Diurese w/ Bumex drip Monitor renal function Monitor ins and outs Continue antibiotics Tube feeds for nutritional support Echo showed EF of 40%. CPAP in AM with PS 8, PEEP of 5 Labs and imaging reviewed. Rest of plan as noted below. Plan: s/p intubation on mechanical ventilator. On AC mode; RR 22, VT 600, PEEP 6, FiO2 30% Titrate FIO2 to keep O2 saturation above 90%. VAP bundle. Daily ABG and CXR while intubated Sedate for ventilator synchrony Continue bronchodilators. Steroids Continue antibiotics. F/u cultures. Pressors if necessary to maintain a mean arterial blood pressure greater than 65 mmHg. Cardiology recs appreciated. Diurese w/ Bumex as tolerated Monitor renal function Monitor electrolytes. Supplement as necessary. Monitor ins and outs. Nephrology recs appreciated. IV fluid hydration GI prophylaxis. DVT prophylaxis. Prognosis: Poor given patient's multiple co-morbidities. Condition: Critical Rest of plan per hospitalist and other consultants. A total of 35 minutes of critical care time was spent reviewing the patient record, examining the patient, making a diagnostic and therapeutic plan, discussing this plan with the medical personnel, following up on diagnostic studies and following the patient for clinical stability excluding any and all procedures. At least 50% of this time was spent in direct, [id number] contact. Thank you, MIRNA Stratton, for allowing me to participate in this patient's care. Further recommendations will depend on the patient's clinical course. Please do not hesitate to contact me if you have any questions or concerns. This medical document was created using an electronic medical record system with [employer] dictation system. Although these documentations are being carefully reviewed, there may still be some phonetic and typographical changes. The errors are purely typographical, due to imperfection on the software program, and do not reflect any compromise in the patient's medical care. Dietary Evaluation Review Comments: 1) If GI is accessible consider Jevity 1.2 @ 70ml/hr x 24hr continuous feed goal rate as tolerated 2) If pt remains NPO >7 days consider TPN to meet at least 75% of estimated needs 3) Advance pt diet when medically feasible to a 2gm Sodium diet modified per DUMPSTER DRIVER recommendations 4) Continue current plan of care Expected Outcomes/Goals: 1) Pt to receive nutrition support within 7 days of NPO status 2) Pt diet to advance 3) F/U in 2-3 days Plan discussed with: Other (LUZMARIA Gaitan) Critical Care Time(min): 35 ELIZABETH,MELODY M MD May 28, 2024 23:46
[2024-05-29] VITALS (106 sets, daily range): BP systolic 88–154; BP diastolic 51–133; PULSE 67–111; RESP 20–30; TEMP 98.2–99; O2SAT 89–98
[2024-05-29 04:34] LABS: Basophils # (auto) 0 10 ^3/uL (0-0.2); Eosinophils # (auto) 0 10 ^3/uL (0-0.8); Hemoglobin 8.4 g/dL (12.2-16.2); Lymphocytes # (auto) 1.6 10 ^3/uL (0.4-5.4); Monocytes # (auto) 1.2 10 ^3/uL (0-1.3); Monocytes % (auto) 6.1 % (0.0-12.0); Nucleated Red Blood Cells % 0.3 %
[2024-05-29 04:38] LABS: Basophils % (auto) 0.2 % (0.0-2.0); Eosinophils % (auto) 0.1 % (0.0-7.0); Hematocrit 25.5 % (36.0-46.0); Lymphocytes % (auto) 8.4 % (10.0-50.0); Mean Corpuscular Hemoglobin 29.3 pg (28.0-32.0); Mean Corpuscular Volume 88.8 fL (80.0-100.0); Neutrophils # (auto) 16.3 10 ^3/uL (1.6-8.6); Neutrophils % (auto) 85.2 % (37.0-80.0); Platelet Count (auto) 267 10^3/uL (140-450); Red Blood Cells 2.88 10^6/uL (4.0-5.20); Red Cell Distribution Width 15.2 % (11.8-14.3); White Blood Cell 19.1 10^3/uL (4.4-10.8)
[2024-05-29 04:45] LABS: Anion Gap 13 (5-15); Carbon Dioxide 23 mmol/L (20-31); Chloride 103 mmol/L (98-107); Sodium 139 mmol/L (136-145)
[2024-05-29 04:48] LABS: Calcium 8.3 mg/dL (8.7-10.4)
[2024-05-29 04:51] LABS: BUN/Creatinine Ratio 10.4 (10.0-20.0); Glucose 99 mg/dL (74-106)
[2024-05-29 05:07] LABS: Blood Urea Nitrogen 79 mg/dL (9-23)
--- NOTE | 2024-05-29 05:10 | DVH ---
CHEST RADIOGRAPH Indication: pna Technique: Single frontal view of the chest was obtained Comparison: XY CHEST PORTABLE on DOS: 05/28/24, XY CHEST PORTABLE on DOS: 05/27/24, XY CHEST PORTABLE on DOS: 05/27/24 IMPRESSION: The heart is enlarged. Support lines and tubes appear unchanged in position. Bilateral alveolar and interstitial airspace opacities, congestion appear similar to prior examination. No pneumothorax.
[2024-05-29] MEDS: POTASSIUM CHL 20MEQ/100ML 100 ML IV SCH (06:53)
[2024-05-29] MEDS: MAGNESIUM SULFATE 1GM/100ML 100 ML IV SCH (07:00)
--- NOTE | 2024-05-29 07:38 | DVHPN2 ---
Subjective Patient intubated and sedated Reviewed: Care Plan, H&P, Labs, Medications, Previous Orders Changes from previous H/P or p: No Changes General: Per HPI Respiratory: Shortness of breath Objective Vitals Vital Signs Date Time Temp Pulse Resp B/P (MAP) Pulse Ox O2 Delivery O2 Flow Rate FiO2 05/29/24 07:15 98.8 72 22 140/70 (93) 93 209.8 103/97 (99) 05/29/24 07:01 40 05/29/24 06:00 Mechanical Ventilator+ Intake/Output Intake and Output 05/29/24 07:00 Intake Total 1439.5 ml Output Total 135 ml Balance 1304.5 ml Intake Oral 60 ml IV Total 1379.5 ml Output Urine Total 135 ml General Appearance: moderate distress, Other (Patient intubated and chemically sedated.) HEENT: Atraumatic, PERRLA Lungs: Clear to auscultation, Normal air movement, Other (Mechanical ventilation) Cardiovascular: Normal S1, Normal S2 Abdomen: Normal bowel sounds, Soft, No tenderness, No hepatospenomegaly Musculoskeletal: Normal sensory function, Normal motor function Extremities: No clubbing, No cyanosis, No edema, Normal pulses, No tenderness/swelling Neuro: Normal gait, Normal speech, Strength at 5/5 X4 ext Skin: Dry, Intact Psych/Mental Status: Mental status NL, Mood NL Medications Current Medications Medications Dose Ordered Sig/Yousif Route Start Time Stop Time Status Last Admin Dose Admin Midazolam HCl 50 ml @ 1 mls/hr Q24H IV 05/25/24 06:30 05/29/24 05:02 7 MLS/HR Aspirin 81 mg DAILY NG 05/26/24 10:00 05/28/24 10:30 81 MG Atorvastatin Calcium 40 mg HS NG 05/25/24 22:00 05/28/24 21:31 40 MG Ondansetron HCl 4 mg Q4HP PRN IV 05/25/24 10:45 Nitroglycerin 0.4 mg Q5MINP PRN SL 05/25/24 10:45 Enoxaparin Sodium 30 mg DAILY SC 05/26/24 10:00 05/28/24 10:31 30 MG Albuterol 2.5 mg Q4HR NEB 05/25/24 14:00 05/29/24 07:00 2.5 MG Ipratropium [place] 0.5 mg Q4HR NEB 05/25/24 14:00 05/29/24 07:00 0.5 MG Phenylephrine HCl 250 ml @ 30 mls/hr Q8H20M IV 05/25/24 11:15 05/26/24 05:04 67.5 MLS/HR Fentanyl Citrate 250 ml @ 2.5 mls/hr Q24H IV 05/25/24 19:30 05/29/24 05:03 10 MLS/HR Ibuprofen 400 mg Q4HP PRN GT 05/26/24 01:15 05/26/24 01:42 400 MG Norepinephrine Bitartrate 32 mg/ Sodium Chloride 250 ml @ 0.938 mls/ hr Q24H IV 05/26/24 16:30 05/26/24 16:56 0.938 MLS/HR Cefepime HCl 0.5 gm/Dextrose 50 ml @ 12.5 mls/hr Q24H IV 05/29/24 18:00 Potassium Chloride 100 ml @ 50 mls/hr Q2H IV 05/29/24 06:30 05/29/24 12:29 05/29/24 06:53 50 MLS/HR Magnesium Sulfate/ Dextrose 100 ml @ 100 mls/hr Q1HR IV 05/29/24 07:00 05/29/24 08:59 Laboratory Results Laboratory Tests 05/29/24 04:03 Chemistry Test 05/29/24 04:03 05/29/24 06:30 Calcium Level 8.3 mg/dL (8.7-10.4) L Magnesium Level Pending Urinalysis Test 05/25/24 08:30 05/28/24 01:30 Urine Color Yellow (Yellow) Urine Clarity Clear (Clear) Urine pH 7.5 (5.0-9.0) Urine Specific [place] 1.013 (1.001-1.035) Urine Protein 2+ (Negative) H Urine Ketones Negative (Negative) Urine Blood Negative /uL (Negative) Urine Nitrite Negative (Negative) Urine Bilirubin Negative (Negative) Urine Urobilinogen 8 mg/dL (Negative) H Urine Leukocyte Esterase Negative /uL (Negative) Urine RBC 5 /hpf (0 - 4) Urine WBC 1 /hpf (0 - 5) Urine Squamous Epithelial Cells Few /hpf (<5) Urine Bacteria None seen /hpf (None Seen) Urine Glucose Normal mg/dL (Normal) Urine Creatinine 248.25 mg/dL (30.0-125.0) H Urine Sodium 27 mmol/L (40-220) L Urine Total Protein 293.2 mg/dL (1-14) H Blood Gas Results Test 05/28/24 08:03 Arterial Blood pH 7.361 (7.350-7.450) FiO2 % 35.0 Microbiology Microbiology Date/Time Source Procedure Growth Status 05/27/24 08:50 Nose MRSA Screen - Final Complete 05/25/24 08:30 Urine - [place] Urine Culture - Final Complete 05/25/24 08:24 Blood Blood Culture - Final Streptococcus pneumoniae Complete 05/25/24 06:50 Sputum Gram Stain - Final Resulted 05/25/24 06:50 Sputum Respiratory Culture - Preliminary Resulted Labs and/or images reviewed: Labs reviewed by me, Image(s) reviewed by me Assessment/Plan Assessment/Plan Impression: -severe sepsis with shock , Streptococcus pneumoniae -probable community-acquired pneumonia with Gram-positive cocci -sepsis with Gram-positive cocci -acute hypoxic respiratory failure with mechanical ventilation -obesity -acute kidney injury, anuric -NSTEMI, probably type 2 -hypoalbuminemia Plan: Events: Patient clinically improving with vasopressor therapy weaned off as well as white blood cell count improving. -hypokalemic. Potassium replacement. -patient continues to be off vasopressor therapy, hemodynamically stable, white blood cell count improving, plans for spontaneous breathing trial once patient awakens -sedation vacation -bronchodilators -continue current ventilator settings. Patient now on 35% FiO2 -nephrology consultation: HD has been initiated -cardiology consultation: Medical management at this time. Continue statin and ASA -PUD, DVT prophylaxis -continue vasopressor therapy with norepinephrine -repeat labs, chest x-ray, ABG in a.m.. Critical care time spent with patient discussing and formulating plan of care: 90 minutes. This does not include time spent performing procedures. This medical document was created using an electronic medical record system with [employer] system. Although this document has been carefully reviewed, there may still be some phonetic and typographical errors. These areas are purely typographical due to imperfections of the software programs, and do not reflect any compromise in the patient's medical care. Plan discussed with: Patient, Other (RN) My Orders Orders - OMAR PARK [facility]AMP [employer]ER Procedure Category Date Status Time Cefepime (Maxipime) PHA 05/29/24 In Process 18:00 Ventilator Orders RT 05/28/24 Transmitted 16:28 Cpap Trial For Am ORDERS 05/29/24 Transmitted 04:00 Cpap/Sed Vacation Med ORDERS 05/28/24 Transmitted Weaning 17:46 Communication Order ORDERS 05/29/24 Transmitted 07:24 Date of Service: May 29, 2024 Billing Provider: OMAR PARK NP Common Visit Codes: [id number] CARE 30-74 MIN OMAR PARK NP May 29, 2024 07:38
[2024-05-29 08:21] LABS: Base Excess -4.4 mmol/L (-2.0-3.0)
--- NOTE | 2024-05-29 11:26 | DVHPN2 ---
Consult Progress Note Subjective Patient reports: Other (Intubated and sedated) Objective vital signs Vital Sign Date Time Temp Pulse Resp B/P (MAP) Pulse Ox O2 Delivery O2 Flow Rate FiO2 05/29/24 10:46 72 22 100/68 (79) 96 30 05/29/24 10:00 Mechanical Ventilator+ 05/29/24 07:15 98.8 209.8 Total Intake and Output 05/28/24 05/28/24 05/29/24 15:00 23:00 07:00 Intake Total 635.0 ml 575.0 ml 293.0 ml Output Total 10 ml 125 ml Balance 635.0 ml 565.0 ml 168.0 ml medications Current Medications Medications Dose Ordered Sig/Yousif Route Start Time Stop Time Status Last Admin Dose Admin Midazolam HCl 50 ml @ 1 mls/hr Q24H IV 05/25/24 06:30 05/29/24 09:11 5 MLS/HR Aspirin 81 mg DAILY NG 05/26/24 10:00 05/29/24 09:10 81 MG Atorvastatin Calcium 40 mg HS NG 05/25/24 22:00 05/28/24 21:31 40 MG Ondansetron HCl 4 mg Q4HP PRN IV 05/25/24 10:45 Nitroglycerin 0.4 mg Q5MINP PRN SL 05/25/24 10:45 Enoxaparin Sodium 30 mg DAILY SC 05/26/24 10:00 05/29/24 09:10 30 MG Albuterol 2.5 mg Q4HR NEB 05/25/24 14:00 05/29/24 10:46 2.5 MG Ipratropium [place] 0.5 mg Q4HR NEB 05/25/24 14:00 05/29/24 10:46 0.5 MG Phenylephrine HCl 250 ml @ 30 mls/hr Q8H20M IV 05/25/24 11:15 05/26/24 05:04 67.5 MLS/HR Fentanyl Citrate 250 ml @ 2.5 mls/hr Q24H IV 05/25/24 19:30 05/29/24 05:03 10 MLS/HR Ibuprofen 400 mg Q4HP PRN GT 05/26/24 01:15 05/26/24 01:42 400 MG Norepinephrine Bitartrate 32 mg/ Sodium Chloride 250 ml @ 0.938 mls/ hr Q24H IV 05/26/24 16:30 05/26/24 16:56 0.938 MLS/HR Cefepime HCl 0.5 gm/Dextrose 50 ml @ 12.5 mls/hr Q24H IV 05/29/24 18:00 Enteral Nutritional Formula 1,000 ml 30ML/HR GT 05/29/24 09:45 Examination: LUNGS:Abnormal (Intubated, FiO2 30%), CVS:Normal (Telemetry consistent with sinus rhythm at 72 beats per minute. Continues to be off pressor support), NEURO:Abnormal (Sedated), :Abnormal (Low urine output.) laboratory and microbiology Laboratory Tests 05/29/24 04:03 Test 05/29/24 04:03 Range/Units Serum Glucose 99 74-106 mg/dL Problem List/Assessment/Plan Problem List/Assessment/Plan Problem List/Assessment/Plan Septic shock Acute on chronic HFrEF, NYHA class IV, newly diagnosed Acute hypoxic respiratory failure NSTEMI, likely type II secondary to above Mitral valve regurgitation, mild degree History of hypertension Acute kidney injury Morbidly obese Plan/Recommendation (Dr. Mathur): * Echocardiogram reveals EF 40% with severe concentric LVH * We will Initiate GDMT for CHF when stable BP (now off vasopressors) * HD per Nephrology * Lipid-lowering agent * Cardiac surveillance: Monitor and notify for any ECG changes * DVT/VTE prophylaxis * Antibiotics per primary care team Case Discussed with Dr Mathur. Continues to be off vasopressor support, blood pressure marginal. Continue HD per Nephrology, s/p dialysis 05/28/2024, tolerated well. Continues to be on vent support with FiO2 30%. Management per pulmonology. Critical care, time spent: 40 minutes This medical document was created using an electronic medical record system with voice recognition software and computerized dictation system. Although this document has been carefully reviewed, there might still be some phonetic and typographical errors. Occasional wrong-word or ``sound-alike substitutions may have occurred due to the inherent limitations of voice recognition software. These areas are purely typographical due to imperfections of the software programs and do not reflect any compromise in the patient's medical care. Please read the chart carefully and recognize, using context, where these substitutions have occurred. Thank you for allowing me to participate in the management of this patient. The treatment plan was discussed with and agreed upon by patient/family including requesting consultants and ordering of imaging/procedures. Plan discussed with: Patient, Spouse, Daughter, Son Dietary Evaluation Review Comments: 1) If GI is accessible consider Jevity 1.2 @ 70ml/hr x 24hr continuous feed goal rate as tolerated 2) If pt remains NPO >7 days consider TPN to meet at least 75% of estimated needs 3) Advance pt diet when medically feasible to a 2gm Sodium diet modified per SANITATION MANAGER recommendations 4) Continue current plan of care Expected Outcomes/Goals: 1) Pt to receive nutrition support within 7 days of NPO status 2) Pt diet to advance 3) F/U in 2-3 days Date of Service: May 29, 2024 Billing Provider: SUSHMA JOHNSON Common Visit Codes: [id number] INP/OBS CARE(HIGH), [id number] CARE 30-74 MIN SUSHMA JOHNSON May 29, 2024 11:26
--- NOTE | 2024-05-29 14:50 | DVHPN2 ---
Progress Note - Dictate Date Seen: May 29, 2024 Medical Necessity Reason Pt with a Central, PICC or Fol: Yes The following are medically ne: Putnam Catheter Reason for putnam catheter: Strict I&O Subjective Remains intubated, patient's is at the bedside vital signs Vital Sign Date Time Temp Pulse Resp B/P (MAP) Pulse Ox O2 Delivery O2 Flow Rate FiO2 05/29/24 14:15 77 23 109/104 (106) 95 30 05/29/24 13:45 98.7 98.7 05/29/24 12:00 Mechanical Ventilator+ Total Intake and Output 05/28/24 05/28/24 05/29/24 15:00 23:00 07:00 Intake Total 635.0 ml 575.0 ml 293.0 ml Output Total 10 ml 125 ml Balance 635.0 ml 565.0 ml 168.0 ml medications Current Medications Medications Dose Ordered Sig/Yousif Route Start Time Stop Time Status Last Admin Dose Admin Midazolam HCl 50 ml @ 1 mls/hr Q24H IV 05/25/24 06:30 05/29/24 09:11 5 MLS/HR Aspirin 81 mg DAILY NG 05/26/24 10:00 05/29/24 09:10 81 MG Atorvastatin Calcium 40 mg HS NG 05/25/24 22:00 05/28/24 21:31 40 MG Ondansetron HCl 4 mg Q4HP PRN IV 05/25/24 10:45 Nitroglycerin 0.4 mg Q5MINP PRN SL 05/25/24 10:45 Albuterol 2.5 mg Q4HR NEB 05/25/24 14:00 05/29/24 14:13 2.5 MG Ipratropium [place] 0.5 mg Q4HR NEB 05/25/24 14:00 05/29/24 14:13 0.5 MG Phenylephrine HCl 250 ml @ 30 mls/hr Q8H20M IV 05/25/24 11:15 05/26/24 05:04 67.5 MLS/HR Fentanyl Citrate 250 ml @ 2.5 mls/hr Q24H IV 05/25/24 19:30 05/29/24 05:03 10 MLS/HR Ibuprofen 400 mg Q4HP PRN GT 05/26/24 01:15 05/26/24 01:42 400 MG Norepinephrine Bitartrate 32 mg/ Sodium Chloride 250 ml @ 0.938 mls/ hr Q24H IV 05/26/24 16:30 05/26/24 16:56 0.938 MLS/HR Cefepime HCl 0.5 gm/Dextrose 50 ml @ 12.5 mls/hr Q24H IV 05/29/24 18:00 Enteral Nutritional Formula 1,000 ml 30ML/HR GT 05/29/24 09:45 Heparin Sodium (Porcine) 5,000 units Q8HR SC 05/29/24 22:00 Dexmedetomidine HCl 400 mcg/ Dextrose 100 ml @ 8.18 mls/hr [id number] IV 05/29/24 14:15 objective Gen: Intubated lungs: cta anteriorly cvs: no rub abd: soft, bowel sounds audible ext: + edema laboratory and microbiology Laboratory Tests 05/29/24 04:03 Test 05/29/24 04:03 Range/Units Serum Glucose 99 74-106 mg/dL Assessment/Plan Acute kidney injury likely ATN Unknown recent baseline Severe sepsis Morbid obesity Ventilator-dependent hypoxic respiratory failure recs Dialysis tentatively May 30 Discussed plan of care with patient's at bedside Dietary Evaluation Review Comments: 1) If GI is accessible consider Jevity 1.2 @ 70ml/hr x 24hr continuous feed goal rate as tolerated 2) If pt remains NPO >7 days consider TPN to meet at least 75% of estimated needs 3) Advance pt diet when medically feasible to a 2gm Sodium diet modified per MACHINE PAN GREASER recommendations 4) Continue current plan of care Expected Outcomes/Goals: 1) Pt to receive nutrition support within 7 days of NPO status 2) Pt diet to advance 3) F/U in 2-3 days Plan discussed with: Spouse, Other JONATHAN HALL MD May 29, 2024 14:50
[2024-05-29] MEDS: CEFEPIME 0.5 GM in D5W 5% 50 ML IV SCH (17:12)
--- NOTE | 2024-05-29 21:35 | DVHPN2 ---
Consult Progress Note Subjective Other Systems: Patient was seen and evaluated in follow up in the ICU. Patient is intubated and sedated on ventilator. 30 % FiO2. Patient failed CPAP trial. Continues to be off vasopressor support, blood pressure marginal. Continue HD per Nephrology, s/p dialysis 05/28/2024. 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 Objective vital signs Vital Sign Date Time Temp Pulse Resp B/P (MAP) Pulse Ox O2 Delivery O2 Flow Rate FiO2 05/29/24 16:08 76 22 98/92 (94) 95 30 05/29/24 14:00 Mechanical Ventilator+ 05/29/24 13:45 98.7 98.7 Total Intake and Output 05/28/24 05/28/24 05/29/24 15:00 23:00 07:00 Intake Total 635.0 ml 575.0 ml 293.0 ml Output Total 10 ml 125 ml Balance 635.0 ml 565.0 ml 168.0 ml medications Current Medications Medications Dose Ordered Sig/Yousif Route Start Time Stop Time Status Last Admin Dose Admin Midazolam HCl 50 ml @ 1 mls/hr Q24H IV 05/25/24 06:30 05/29/24 09:11 5 MLS/HR Aspirin 81 mg DAILY NG 05/26/24 10:00 05/29/24 09:10 81 MG Atorvastatin Calcium 40 mg HS NG 05/25/24 22:00 05/28/24 21:31 40 MG Ondansetron HCl 4 mg Q4HP PRN IV 05/25/24 10:45 Nitroglycerin 0.4 mg Q5MINP PRN SL 05/25/24 10:45 Albuterol 2.5 mg Q4HR NEB 05/25/24 14:00 05/29/24 14:13 2.5 MG Ipratropium [place] 0.5 mg Q4HR NEB 05/25/24 14:00 05/29/24 14:13 0.5 MG Phenylephrine HCl 250 ml @ 30 mls/hr Q8H20M IV 05/25/24 11:15 05/26/24 05:04 67.5 MLS/HR Fentanyl Citrate 250 ml @ 2.5 mls/hr Q24H IV 05/25/24 19:30 05/29/24 05:03 10 MLS/HR Ibuprofen 400 mg Q4HP PRN GT 05/26/24 01:15 05/26/24 01:42 400 MG Norepinephrine Bitartrate 32 mg/ Sodium Chloride 250 ml @ 0.938 mls/ hr Q24H IV 05/26/24 16:30 05/26/24 16:56 0.938 MLS/HR Cefepime HCl 0.5 gm/Dextrose 50 ml @ 12.5 mls/hr Q24H IV 05/29/24 18:00 Enteral Nutritional Formula 1,000 ml 30ML/HR GT 05/29/24 09:45 Heparin Sodium (Porcine) 5,000 units Q8HR SC 05/29/24 22:00 Dexmedetomidine HCl 400 mcg/ Dextrose 100 ml @ 8.18 mls/hr [id number] IV 05/29/24 14:15 Hydralazine HCl 10 mg Q6HP PRN IV 05/29/24 16:30 UNV Examination: GENERAL:Abnormal (Intubated on ventilator ), HEENT:Normal, NECK:Normal, LUNGS:Abnormal (dereased breath sounds ), CVS:Normal, ABDOMEN:Normal, MSK:Normal, SKIN:Normal, NEURO:Abnormal (sedated ) laboratory and microbiology Laboratory Tests 05/29/24 04:03 Test 05/29/24 04:03 Range/Units Serum Glucose 99 74-106 mg/dL Problem List/Assessment/Plan Problem List/Assessment/Plan Septic shock. Acute on chronic HFrEF, NYHA class IV, newly diagnosed. Acute hypoxic respiratory failure. NSTEMI, likely type II secondary to above. Mitral valve regurgitation, mild degree. History of hypertension. Acute kidney injury. Morbidly obese. Plan/Recommendation Continued all current supportive medical care. Patient has been seen by Andres Putnam NP on my behalf, her and I discussed the plan with the patient. Echocardiogram reveals EF 40% with severe concentric LVH. Initiate GDMT for CHF with stable BP (now off vasopressors). HD per Nephrology. Lipid-lowering agent. Cardiac surveillance: Monitor and notify for any ECG changes. DVT/VTE prophylaxis. Antibiotics per primary care team. Additional plan as per the hospital course. Plan discussed with: Other Dietary Evaluation Review Comments: 1) If GI is accessible consider Jevity 1.2 @ 70ml/hr x 24hr continuous feed goal rate as tolerated 2) If pt remains NPO >7 days consider TPN to meet at least 75% of estimated needs 3) Advance pt diet when medically feasible to a 2gm Sodium diet modified per FOOD AIDE recommendations 4) Continue current plan of care Expected Outcomes/Goals: 1) Pt to receive nutrition support within 7 days of NPO status 2) Pt diet to advance 3) F/U in 2-3 days Date of Service: May 29, 2024 Billing Provider: RAMNO CURRY MD Cardiology Common Codes: [id number] HOSP CARE(High RAMON CURRY MD May 29, 2024 16:35
[2024-05-29] MEDS: HEPARIN SODIUM (PORCINE) 5000 UNITS/ML 1ML VIAL SC SCH (21:39)
--- NOTE | 2024-05-29 22:53 | DVHPN2 ---
Progress Note - Dictate Date Seen: May 29, 2024 Medical Necessity Reason Pt with a Central, PICC or Fol: Yes The following are medically ne: Putnam Catheter Reason for putnam catheter: Strict I&O Subjective Patient seen and examined at bedside. Intubated on mechanical ventilator. Overnight events reviewed. vital signs Vital Sign Date Time Temp Pulse Resp B/P (MAP) Pulse Ox O2 Delivery O2 Flow Rate FiO2 05/29/24 22:30 72 22 151/73 (99) 98 05/29/24 22:04 40 05/29/24 22:00 Mechanical Ventilator+ 05/29/24 20:00 99.0 99.0 Total Intake and Output 05/28/24 05/28/24 05/29/24 15:00 23:00 07:00 Intake Total 635.0 ml 575.0 ml 293.0 ml Output Total 10 ml 125 ml Balance 635.0 ml 565.0 ml 168.0 ml medications Current Medications Medications Dose Ordered Sig/Yousif Route Start Time Stop Time Status Last Admin Dose Admin Midazolam HCl 50 ml @ 1 mls/hr Q24H IV 05/25/24 06:30 05/29/24 09:11 5 MLS/HR Aspirin 81 mg DAILY NG 05/26/24 10:00 05/29/24 09:10 81 MG Atorvastatin Calcium 40 mg HS NG 05/25/24 22:00 05/29/24 21:38 40 MG Ondansetron HCl 4 mg Q4HP PRN IV 05/25/24 10:45 Nitroglycerin 0.4 mg Q5MINP PRN SL 05/25/24 10:45 Albuterol 2.5 mg Q4HR NEB 05/25/24 14:00 05/29/24 22:02 2.5 MG Ipratropium [place] 0.5 mg Q4HR NEB 05/25/24 14:00 05/29/24 22:02 0.5 MG Phenylephrine HCl 250 ml @ 30 mls/hr Q8H20M IV 05/25/24 11:15 05/26/24 05:04 67.5 MLS/HR Fentanyl Citrate 250 ml @ 2.5 mls/hr Q24H IV 05/25/24 19:30 05/29/24 05:03 10 MLS/HR Ibuprofen 400 mg Q4HP PRN GT 05/26/24 01:15 05/26/24 01:42 400 MG Norepinephrine Bitartrate 32 mg/ Sodium Chloride 250 ml @ 0.938 mls/ hr Q24H IV 05/26/24 16:30 05/26/24 16:56 0.938 MLS/HR Cefepime HCl 0.5 gm/Dextrose 50 ml @ 12.5 mls/hr Q24H IV 05/29/24 18:00 05/29/24 17:12 12.5 MLS/HR Enteral Nutritional Formula 1,000 ml 30ML/HR GT 05/29/24 09:45 Heparin Sodium (Porcine) 5,000 units Q8HR SC 05/29/24 22:00 05/29/24 21:39 5,000 UNITS Dexmedetomidine HCl 400 mcg/ Dextrose 100 ml @ 8.18 mls/hr [id number] IV 05/29/24 14:15 Hydralazine HCl 10 mg Q6HP PRN IV 05/29/24 16:30 objective Gen.: Patient lying in bed in medical ICU. Intubated on mechanical ventilator. Head: Normocephalic, atraumatic. Eyes: PERRLA. Ears: Normal external anatomy. Throat: Endotracheal tube and orogastric tube in place. Neck: Supple, trachea midline. Chest: Transmitted breath sounds bilaterally. Decreased air entry bilaterally. No wheezing. Bibasilar crackles. Cardiovascular: Positive S1, positive S2. Regular rate and rhythm. Abdomen: Positive bowel sounds in all 4 quadrants. Soft, nontender, nondistended. : Putnam in place. Normal external genitalia. Rectal: Deferred. Skin: Warm, dry. Intact. Extremities: 2+ radial pulses bilaterally. No lower extremity edema. Neuro: Off sedation laboratory and microbiology Laboratory Tests 05/29/24 04:03 Test 05/29/24 04:03 Range/Units Serum Glucose 99 74-106 mg/dL Assessment/Plan Impression: Acute hypoxic respiratory failure On mechanical ventilator Septic shock Elevated troponin Acute kidney injury Lactic acidosis Metabolic acidosis Multifocal pneumonia, likely gram negative Pulmonary edema AE COPD Events: Remains on vent support On AC mode; RR 22, VT 600, PEEP 6, FiO2 30 -->40% Increased FiO2 requirements. Off sedation Off pressors, hemodynamically stable. S/p hemodialysis yesterday ABG reviewed, notable for alkalemia CXR demonstrates bilateral alveolar and interstitial airspace opacities, congestion - similar to prior. Devices in place. Continue antibiotics Tube feeds for nutritional support Echo showed EF of 40%. SBT CPAP in AM with PS 20, PEEP of 5 to achieve tidal volume 630 mL. Labs and imaging reviewed. Rest of plan as noted below. Plan: s/p intubation on mechanical ventilator. On AC mode; RR 22, VT 600, PEEP 6, FiO2 40% Titrate FIO2 to keep O2 saturation above 90%. VAP bundle. Daily ABG and CXR while intubated Off sedation Continue bronchodilators. Steroids Continue antibiotics. F/u cultures. Pressors if necessary to maintain a mean arterial blood pressure greater than 65 mmHg. Cardiology recs appreciated. Monitor renal function Monitor electrolytes. Supplement as necessary. Monitor ins and outs. Nephrology recs appreciated. IV fluid hydration GI prophylaxis. DVT prophylaxis. Prognosis: Poor given patient's multiple co-morbidities. Condition: Critical Rest of plan per hospitalist and other consultants. A total of 35 minutes of critical care time was spent reviewing the patient record, examining the patient, making a diagnostic and therapeutic plan, discussing this plan with the medical personnel, following up on diagnostic studies and following the patient for clinical stability excluding any and all procedures. At least 50% of this time was spent in direct, [id number] contact. Thank you, MIRNA Stratton, for allowing me to participate in this patient's care. Further recommendations will depend on the patient's clinical course. Please do not hesitate to contact me if you have any questions or concerns. This medical document was created using an electronic medical record system with [employer] dictation system. Although these documentations are being carefully reviewed, there may still be some phonetic and typographical changes. The errors are purely typographical, due to imperfection on the software program, and do not reflect any compromise in the patient's medical care. Dietary Evaluation Review Comments: 1) If GI is accessible consider Jevity 1.2 @ 70ml/hr x 24hr continuous feed goal rate as tolerated 2) If pt remains NPO >7 days consider TPN to meet at least 75% of estimated needs 3) Advance pt diet when medically feasible to a 2gm Sodium diet modified per [employer] recommendations 4) Continue current plan of care Expected Outcomes/Goals: 1) Pt to receive nutrition support within 7 days of NPO status 2) Pt diet to advance 3) F/U in 2-3 days Plan discussed with: Other (LUZMARIA Gaitan) Critical Care Time(min): 35 MELODY ELIZABETH MD May 29, 2024 22:53
[2024-05-30] VITALS (109 sets, daily range): BP systolic 99–175; BP diastolic 58–120; PULSE 67–89; RESP 17–31; TEMP 97.5–98.8; O2SAT 89–100
[2024-05-30 04:02] LABS: Basophils # (auto) 0 10 ^3/uL (0-0.2); Basophils % (auto) 0.1 % (0.0-2.0); Eosinophils # (auto) 0.1 10 ^3/uL (0-0.8); Eosinophils % (auto) 0.5 % (0.0-7.0); Hematocrit 25.5 % (36.0-46.0); Hemoglobin 8.5 g/dL (12.2-16.2); Lymphocytes % (auto) 5.2 % (10.0-50.0); Mean Corpuscular Hemoglobin 29.6 pg (28.0-32.0); Mean Corpuscular Hgb Conc. 33.4 g/dL (32.0-36.0); Mean Corpuscular Volume 88.7 fL (80.0-100.0); Monocytes # (auto) 1.3 10 ^3/uL (0-1.3); Monocytes % (auto) 6.9 % (0.0-12.0); Neutrophils # (auto) 16.8 10 ^3/uL (1.6-8.6); Neutrophils % (auto) 87.3 % (37.0-80.0); Nucleated Red Blood Cells % 0.1 %; Platelet Count (auto) 285 10^3/uL (140-450); Red Blood Cells 2.88 10^6/uL (4.0-5.20); Red Cell Distribution Width 15.3 % (11.8-14.3); White Blood Cell 19.3 10^3/uL (4.4-10.8)
[2024-05-30 04:09] LABS: Anion Gap 14 (5-15); Carbon Dioxide 21 mmol/L (20-31); Chloride 104 mmol/L (98-107); Potassium 3.6 mmol/L (3.5-5.1); Sodium 139 mmol/L (136-145)
[2024-05-30 04:10] LABS: Calcium 8.7 mg/dL (8.7-10.4)
[2024-05-30 04:16] LABS: BUN/Creatinine Ratio 11.7 (10.0-20.0); Glucose 95 mg/dL (74-106)
[2024-05-30 04:34] LABS: Blood Urea Nitrogen 103 mg/dL (9-23)
--- NOTE | 2024-05-30 05:46 | DVH ---
CHEST RADIOGRAPH Indication: pna Technique: Single frontal view of the chest was obtained Comparison: XY CHEST PORTABLE on DOS: 05/29/24, XY CHEST PORTABLE on DOS: 05/28/24, XY CHEST PORTABLE o n DOS: 05/27/24, XY CHEST PORTABLE on DOS: 05/27/24, XY CHEST XRAY 1 VIEW on DOS: 05/26/24, XY CHEST PORTAB LE on DOS: 05/29/24 FINDINGS: The heart is enlarged. Support lines and tubes appear unchanged in position. Bilateral alveolar and interstitial airspace opacities, congestion appear similar to prior examination. No pneumothorax. Impression: No change.
[2024-05-30] MEDS: FLUCONAZOLE 200MG/100ML 100 ML IV SCH (10:24)
[2024-05-30] MEDS: PANTOPRAZOLE 40 MG/10 ML VIAL INJ IV SCH (10:24)
--- NOTE | 2024-05-30 11:06 | DVHPN2 ---
Subjective Patient was encephalopathic. Reviewed: Care Plan, H&P, Labs, Medications, Previous Orders Changes from previous H/P or p: No Changes General: Per HPI Respiratory: Shortness of breath Objective Vitals Vital Signs Date Time Temp Pulse Resp B/P (MAP) Pulse Ox O2 Delivery O2 Flow Rate FiO2 05/30/24 10:21 74 22 107/95 (99) 96 40 05/30/24 06:00 Mechanical Ventilator+ 05/30/24 04:00 98.4 98.4 Intake/Output Intake and Output 05/30/24 07:00 Intake Total 541.5 ml Output Total 550 ml Balance -8.5 ml Intake Oral 170 ml IV Total 169.5 ml Tube Feeding 202 ml Output Urine Total 550 ml General Appearance: Alert, moderate distress, Other (Patient intubated and chemically sedated.) HEENT: Atraumatic, PERRLA Lungs: Clear to auscultation, Normal air movement, Other (Mechanical ventilation) Cardiovascular: Normal S1, Normal S2 Abdomen: Normal bowel sounds, Soft, No tenderness, No hepatospenomegaly Musculoskeletal: Normal sensory function, Normal motor function Extremities: No clubbing, No cyanosis, No edema, Normal pulses, No tenderness/swelling Neuro: Normal gait, Normal speech, Strength at 5/5 X4 ext Skin: Dry, Intact Psych/Mental Status: Mental status NL, Mood NL Medications Current Medications Medications Dose Ordered Sig/Yousif Route Start Time Stop Time Status Last Admin Dose Admin Midazolam HCl 50 ml @ 1 mls/hr Q24H IV 05/25/24 06:30 05/29/24 09:11 5 MLS/HR Aspirin 81 mg DAILY NG 05/26/24 10:00 05/30/24 10:25 81 MG Atorvastatin Calcium 40 mg HS NG 05/25/24 22:00 05/29/24 21:38 40 MG Ondansetron HCl 4 mg Q4HP PRN IV 05/25/24 10:45 Nitroglycerin 0.4 mg Q5MINP PRN SL 05/25/24 10:45 Albuterol 2.5 mg Q4HR NEB 05/25/24 14:00 05/30/24 10:20 2.5 MG Ipratropium [place] 0.5 mg Q4HR NEB 05/25/24 14:00 05/30/24 10:20 0.5 MG Phenylephrine HCl 250 ml @ 30 mls/hr Q8H20M IV 05/25/24 11:15 05/26/24 05:04 67.5 MLS/HR Fentanyl Citrate 250 ml @ 2.5 mls/hr Q24H IV 05/25/24 19:30 05/29/24 05:03 10 MLS/HR Ibuprofen 400 mg Q4HP PRN GT 05/26/24 01:15 05/26/24 01:42 400 MG Norepinephrine Bitartrate 32 mg/ Sodium Chloride 250 ml @ 0.938 mls/ hr Q24H IV 05/26/24 16:30 05/26/24 16:56 0.938 MLS/HR Cefepime HCl 0.5 gm/Dextrose 50 ml @ 12.5 mls/hr Q24H IV 05/29/24 18:00 05/29/24 17:12 12.5 MLS/HR Enteral Nutritional Formula 1,000 ml 30ML/HR GT 05/29/24 09:45 Heparin Sodium (Porcine) 5,000 units Q8HR SC 05/29/24 22:00 05/30/24 05:47 5,000 UNITS Dexmedetomidine HCl 400 mcg/ Dextrose 100 ml @ 8.18 mls/hr [id number] IV 05/29/24 14:15 Hydralazine HCl 10 mg Q6HP PRN IV 05/29/24 16:30 Pantoprazole Sodium 40 mg DAILY IV 05/30/24 10:00 05/30/24 10:24 40 MG Fluconazole 100 ml @ 100 mls/hr DAILY IV 05/30/24 10:00 05/30/24 10:24 100 MLS/HR Bumetanide 2 mg BIDD IV 05/30/24 18:00 Laboratory Results Laboratory Tests 05/30/24 03:27 Chemistry Test 05/30/24 03:27 Calcium Level 8.7 mg/dL (8.7-10.4) Urinalysis Test 05/25/24 08:30 05/28/24 01:30 Urine Color Yellow (Yellow) Urine Clarity Clear (Clear) Urine pH 7.5 (5.0-9.0) Urine Specific [place] 1.013 (1.001-1.035) Urine Protein 2+ (Negative) H Urine Ketones Negative (Negative) Urine Blood Negative /uL (Negative) Urine Nitrite Negative (Negative) Urine Bilirubin Negative (Negative) Urine Urobilinogen 8 mg/dL (Negative) H Urine Leukocyte Esterase Negative /uL (Negative) Urine RBC 5 /hpf (0 - 4) Urine WBC 1 /hpf (0 - 5) Urine Squamous Epithelial Cells Few /hpf (<5) Urine Bacteria None seen /hpf (None Seen) Urine Glucose Normal mg/dL (Normal) Urine Creatinine 248.25 mg/dL (30.0-125.0) H Urine Sodium 27 mmol/L (40-220) L Urine Total Protein 293.2 mg/dL (1-14) H Blood Gas Results Test 05/30/24 08:12 Arterial Blood pH 7.371 (7.350-7.450) FiO2 % 40.0 Microbiology Microbiology Date/Time Source Procedure Growth Status 05/27/24 08:50 Nose MRSA Screen - Final Complete 05/25/24 08:30 Urine - [place] Urine Culture - Final Complete 05/25/24 08:24 Blood Blood Culture - Final Streptococcus pneumoniae Complete 05/25/24 06:50 Sputum Gram Stain - Final Complete 05/25/24 06:50 Respiratory Culture - Final Presumptive Tara albicans Complete Labs and/or images reviewed: Labs reviewed by me, Image(s) reviewed by me Assessment/Plan Assessment/Plan Impression: -severe sepsis with shock , Streptococcus pneumoniae -probable community-acquired pneumonia with Gram-positive cocci -sepsis with Gram-positive cocci -acute hypoxic respiratory failure with mechanical ventilation -obesity -acute kidney injury, anuric -NSTEMI, probably type 2 -hypoalbuminemia Plan: Events: Patient has been weaned off of sedation, off for 24 hours. Still no motor movement. Patient continues to breathe with the ventilator. Vasopressors are off. Patient tolerating tube feeding. -recommend HD today. -CT scan of the head -hypokalemic. Potassium replacement. -patient continues to be off vasopressor therapy, hemodynamically stable, white blood cell count improving, plans for spontaneous breathing trial once patient awakens -bronchodilators -continue current ventilator settings. Patient now on 35% FiO2 -nephrology consultation: HD has been initiated -cardiology consultation: Medical management at this time. Continue statin and ASA -PUD, DVT prophylaxis -repeat labs, chest x-ray, ABG in a.m.. Critical care time spent with patient discussing and formulating plan of care: 90 minutes. This does not include time spent performing procedures. This medical document was created using an electronic medical record system with [employer] dictation system. Although this document has been carefully reviewed, there may still be some phonetic and typographical errors. These areas are purely typographical due to imperfections of the software programs, and do not reflect any compromise in the patient's medical care. Plan discussed with: Patient, Other (RN) My Orders Orders - OMAR PARK NP Procedure Category Date Status Time Hydralazine Injection PHA 05/29/24 In Process (Apresoline Inject 16:30 Pantoprazole PHA 05/30/24 In Process (Protonix) 10:00 Fluconazole PHA 05/30/24 In Process 200mg/100ml (Diflucan 10:[address] 05/30/24 Logged 10:08 Bumetanide Injection PHA 05/30/24 In Process (Bumex Injection) 18:00 Basic Metabolic Panel LAB 05/31/24 Verified 05:00 Basic Metabolic Panel LAB 06/01/24 Verified 05:00 Basic Metabolic Panel LAB 06/02/24 Verified 05:00 Date of Service: May 30, 2024 Billing Provider: OMAR PARK NP Common Visit Codes: [id number] CARE 30-74 MIN OMAR PARK NP May 30, 2024 11:06
--- NOTE | 2024-05-30 16:12 | DVHPN2 ---
Progress Note - Dictate Date Seen: May 30, 2024 Medical Necessity Reason Pt with a Central, PICC or Fol: Yes The following are medically ne: Putnam Catheter Reason for putnam catheter: Strict I&O Subjective urine output increased vital signs Vital Sign Date Time Temp Pulse Resp B/P (MAP) Pulse Ox O2 Delivery O2 Flow Rate FiO2 05/30/24 14:30 136/65 05/30/24 14:01 75 22 95 40 05/30/24 12:00 Mechanical Ventilator+ 05/30/24 04:00 98.4 98.4 Total Intake and Output 05/29/24 05/29/24 05/30/24 15:00 23:00 07:00 Intake Total 119.5 ml 300.0 ml 122 ml Output Total 150 ml 400 ml Balance 119.5 ml 150.0 ml -278 ml medications Current Medications Medications Dose Ordered Sig/Yousif Route Start Time Stop Time Status Last Admin Dose Admin Midazolam HCl 50 ml @ 1 mls/hr Q24H IV 05/25/24 06:30 05/29/24 09:11 5 MLS/HR Aspirin 81 mg DAILY NG 05/26/24 10:00 05/30/24 10:25 81 MG Atorvastatin Calcium 40 mg HS NG 05/25/24 22:00 05/29/24 21:38 40 MG Ondansetron HCl 4 mg Q4HP PRN IV 05/25/24 10:45 Nitroglycerin 0.4 mg Q5MINP PRN SL 05/25/24 10:45 Albuterol 2.5 mg Q4HR NEB 05/25/24 14:00 05/30/24 14:00 2.5 MG Ipratropium [place] 0.5 mg Q4HR NEB 05/25/24 14:00 05/30/24 14:00 0.5 MG Phenylephrine HCl 250 ml @ 30 mls/hr Q8H20M IV 05/25/24 11:15 05/26/24 05:04 67.5 MLS/HR Fentanyl Citrate 250 ml @ 2.5 mls/hr Q24H IV 05/25/24 19:30 05/29/24 05:03 10 MLS/HR Ibuprofen 400 mg Q4HP PRN GT 05/26/24 01:15 05/26/24 01:42 400 MG Norepinephrine Bitartrate 32 mg/ Sodium Chloride 250 ml @ 0.938 mls/ hr Q24H IV 05/26/24 16:30 05/26/24 16:56 0.938 MLS/HR Cefepime HCl 0.5 gm/Dextrose 50 ml @ 12.5 mls/hr Q24H IV 05/29/24 18:00 05/29/24 17:12 12.5 MLS/HR Enteral Nutritional Formula 1,000 ml 30ML/HR GT 05/29/24 09:45 Heparin Sodium (Porcine) 5,000 units Q8HR SC 05/29/24 22:00 05/30/24 14:36 5,000 UNITS Dexmedetomidine HCl 400 mcg/ Dextrose 100 ml @ 8.18 mls/hr [id number] IV 05/29/24 14:15 Hydralazine HCl 10 mg Q6HP PRN IV 05/29/24 16:30 Pantoprazole Sodium 40 mg DAILY IV 05/30/24 10:00 05/30/24 10:24 40 MG Fluconazole 100 ml @ 100 mls/hr DAILY IV 05/30/24 10:00 05/30/24 12:01 100 MLS/HR Bumetanide 2 mg BIDD IV 05/30/24 18:00 objective Gen: Intubated lungs: cta anteriorly cvs: no rub abd: soft, bowel sounds audible ext: + edema laboratory and microbiology Laboratory Tests 05/30/24 03:27 Test 05/30/24 03:27 Range/Units Serum Glucose 95 74-106 mg/dL Assessment/Plan Acute kidney injury likely ATN Unknown recent baseline Severe sepsis Morbid obesity Ventilator-dependent hypoxic respiratory failure recs Dialysis 05/31 Urine volumes increased slightly, will continue to monitor for signs of meaningful kidney recovery Dietary Evaluation Review Comments: 1) If GI is accessible consider Jevity 1.2 @ 70ml/hr x 24hr continuous feed goal rate as tolerated 2) If pt remains NPO >7 days consider TPN to meet at least 75% of estimated needs 3) Advance pt diet when medically feasible to a 2gm Sodium diet modified per ASSISTANT FOOD SERVICE MANAGER recommendations 4) Continue current plan of care Expected Outcomes/Goals: 1) Pt to receive nutrition support within 7 days of NPO status 2) Pt diet to advance 3) F/U in 2-3 days Plan discussed with: JONATHAN Cody MD May 30, 2024 16:12
[2024-05-30] MEDS: BUMETANIDE 2.5mg/10ml (0.25 mg/ml) INJ IV SCH (18:38)
--- NOTE | 2024-05-30 21:51 | DVHPN2 ---
Progress Note - Dictate Date Seen: May 30, 2024 Medical Necessity Reason Pt with a Central, PICC or Fol: Yes The following are medically ne: Putnam Catheter Reason for putnam catheter: Strict I&O Subjective Patient seen and examined at bedside. Intubated on mechanical ventilator. Overnight events reviewed. vital signs Vital Sign Date Time Temp Pulse Resp B/P (MAP) Pulse Ox O2 Delivery O2 Flow Rate FiO2 05/30/24 20:14 74 22 141/73 (95) 97 40 05/30/24 20:00 Mechanical Ventilator+ 05/30/24 04:00 98.4 98.4 Total Intake and Output 05/29/24 05/29/24 05/30/24 15:00 23:00 07:00 Intake Total 119.5 ml 300.0 ml 122 ml Output Total 150 ml 400 ml Balance 119.5 ml 150.0 ml -278 ml medications Current Medications Medications Dose Ordered Sig/Yousif Route Start Time Stop Time Status Last Admin Dose Admin Midazolam HCl 50 ml @ 1 mls/hr Q24H IV 05/25/24 06:30 05/29/24 09:11 5 MLS/HR Aspirin 81 mg DAILY NG 05/26/24 10:00 05/30/24 10:25 81 MG Atorvastatin Calcium 40 mg HS NG 05/25/24 22:00 05/30/24 21:36 40 MG Ondansetron HCl 4 mg Q4HP PRN IV 05/25/24 10:45 Nitroglycerin 0.4 mg Q5MINP PRN SL 05/25/24 10:45 Albuterol 2.5 mg Q4HR NEB 05/25/24 14:00 05/30/24 19:01 2.5 MG Ipratropium [place] 0.5 mg Q4HR NEB 05/25/24 14:00 05/30/24 19:01 0.5 MG Phenylephrine HCl 250 ml @ 30 mls/hr Q8H20M IV 05/25/24 11:15 05/26/24 05:04 67.5 MLS/HR Fentanyl Citrate 250 ml @ 2.5 mls/hr Q24H IV 05/25/24 19:30 05/29/24 05:03 10 MLS/HR Ibuprofen 400 mg Q4HP PRN GT 05/26/24 01:15 05/26/24 01:42 400 MG Norepinephrine Bitartrate 32 mg/ Sodium Chloride 250 ml @ 0.938 mls/ hr Q24H IV 05/26/24 16:30 05/26/24 16:56 0.938 MLS/HR Cefepime HCl 0.5 gm/Dextrose 50 ml @ 12.5 mls/hr Q24H IV 05/29/24 18:00 05/30/24 18:39 12.5 MLS/HR Enteral Nutritional Formula 1,000 ml 30ML/HR GT 05/29/24 09:45 Heparin Sodium (Porcine) 5,000 units Q8HR SC 05/29/24 22:00 05/30/24 21:44 5,000 UNITS Dexmedetomidine HCl 400 mcg/ Dextrose 100 ml @ 8.18 mls/hr [id number] IV 05/29/24 14:15 Hydralazine HCl 10 mg Q6HP PRN IV 05/29/24 16:30 Pantoprazole Sodium 40 mg DAILY IV 05/30/24 10:00 05/30/24 10:24 40 MG Fluconazole 100 ml @ 100 mls/hr DAILY IV 05/30/24 10:00 05/30/24 12:01 100 MLS/HR Bumetanide 2 mg BIDD IV 05/30/24 18:00 05/30/24 18:38 2 MG objective Gen.: Patient lying in bed in medical ICU. Intubated on mechanical ventilator. Head: Normocephalic, atraumatic. Eyes: PERRLA. Ears: Normal external anatomy. Throat: Endotracheal tube and orogastric tube in place. Neck: Supple, trachea midline. Chest: Transmitted breath sounds bilaterally. Decreased air entry bilaterally. No wheezing. Bibasilar crackles. Cardiovascular: Positive S1, positive S2. Regular rate and rhythm. Abdomen: Positive bowel sounds in all 4 quadrants. Soft, nontender, nondistended. : Putnam in place. Normal external genitalia. Rectal: Deferred. Skin: Warm, dry. Intact. Extremities: 2+ radial pulses bilaterally. No lower extremity edema. Neuro: Off sedation laboratory and microbiology Laboratory Tests 05/30/24 03:27 Test 05/30/24 03:27 Range/Units Serum Glucose 95 74-106 mg/dL Assessment/Plan Impression: Acute hypoxic respiratory failure On mechanical ventilator Septic shock Elevated troponin Acute kidney injury Lactic acidosis Metabolic acidosis Multifocal pneumonia, likely gram negative Pulmonary edema AE COPD Events: Remains on vent support On AC mode; RR 22, VT 600, PEEP 6, FiO2 40% Off sedation Off pressors, hemodynamically stable. Hemodialysis per Nephrology CT head pending. ABG reviewed, compensated CXR demonstrates bilateral alveolar and interstitial airspace opacities, congestion - similar to prior. Devices in place. Continue antibiotics/antifungal Tube feeds for nutritional support Echo showed EF of 40%. SBT/KAREN Labs and imaging reviewed. Rest of plan as noted below. Plan: s/p intubation on mechanical ventilator. On AC mode; RR 22, VT 600, PEEP 6, FiO2 40% Titrate FIO2 to keep O2 saturation above 90%. VAP bundle. Daily ABG and CXR while intubated Off sedation Continue bronchodilators. Steroids Continue antibiotics. F/u cultures. Pressors if necessary to maintain a mean arterial blood pressure greater than 65 mmHg. Cardiology recs appreciated. Monitor renal function Monitor electrolytes. Supplement as necessary. Monitor ins and outs. Nephrology recs appreciated. IV fluid hydration GI prophylaxis. DVT prophylaxis. Prognosis: Poor given patient's multiple co-morbidities. Condition: Critical Rest of plan per hospitalist and other consultants. A total of 35 minutes of critical care time was spent reviewing the patient record, examining the patient, making a diagnostic and therapeutic plan, discussing this plan with the medical personnel, following up on diagnostic studies and following the patient for clinical stability excluding any and all procedures. At least 50% of this time was spent in direct, [id number] contact. Thank you, MIRNA Stratton, for allowing me to participate in this patient's care. Further recommendations will depend on the patient's clinical course. Please do not hesitate to contact me if you have any questions or concerns. This medical document was created using an electronic medical record system with [employer] dictation system. Although these documentations are being carefully reviewed, there may still be some phonetic and typographical changes. The errors are purely typographical, due to imperfection on the software program, and do not reflect any compromise in the patient's medical care. Dietary Evaluation Review Comments: 1) If GI is accessible consider Jevity 1.2 @ 70ml/hr x 24hr continuous feed goal rate as tolerated 2) If pt remains NPO >7 days consider TPN to meet at least 75% of estimated needs 3) Advance pt diet when medically feasible to a 2gm Sodium diet modified per ELIGIBILITY SUPERVISOR recommendations 4) Continue current plan of care Expected Outcomes/Goals: 1) Pt to receive nutrition support within 7 days of NPO status 2) Pt diet to advance 3) F/U in 2-3 days Plan discussed with: Other (LUZMARIA Mondragon) Critical Care Time(min): 35 MELODY ELIZABETH MD May 30, 2024 21:51
--- NOTE | 2024-05-30 23:02 | DVHPN2 ---
Progress Note - Dictate Date Seen: May 30, 2024 Medical Necessity Reason Pt with a Central, PICC or Fol: Yes The following are medically ne: Putnam Catheter Reason for putnam catheter: Strict I&O Subjective Patient was seen and evaluated in follow up in the ICU. Patient is intubated and sedated on ventilator. 40 % FiO2. Patient has increased urine output. HGB 8.55, HCT 25.5, BUN 103, IN CLASSROOM TUTOR 8.77. vital signs Vital Sign Date Time Temp Pulse Resp B/P (MAP) Pulse Ox O2 Delivery O2 Flow Rate FiO2 05/30/24 16:18 71 22 110/101 (104) 95 40 05/30/24 12:00 Mechanical Ventilator+ 05/30/24 04:00 98.4 98.4 Total Intake and Output 05/29/24 05/29/24 05/30/24 15:00 23:00 07:00 Intake Total 119.5 ml 300.0 ml 122 ml Output Total 150 ml 400 ml Balance 119.5 ml 150.0 ml -278 ml medications Current Medications Medications Dose Ordered Sig/Yousif Route Start Time Stop Time Status Last Admin Dose Admin Midazolam HCl 50 ml @ 1 mls/hr Q24H IV 05/25/24 06:30 05/29/24 09:11 5 MLS/HR Aspirin 81 mg DAILY NG 05/26/24 10:00 05/30/24 10:25 81 MG Atorvastatin Calcium 40 mg HS NG 05/25/24 22:00 05/29/24 21:38 40 MG Ondansetron HCl 4 mg Q4HP PRN IV 05/25/24 10:45 Nitroglycerin 0.4 mg Q5MINP PRN SL 05/25/24 10:45 Albuterol 2.5 mg Q4HR NEB 05/25/24 14:00 05/30/24 14:00 2.5 MG Ipratropium [place] 0.5 mg Q4HR NEB 05/25/24 14:00 05/30/24 14:00 0.5 MG Phenylephrine HCl 250 ml @ 30 mls/hr Q8H20M IV 05/25/24 11:15 05/26/24 05:04 67.5 MLS/HR Fentanyl Citrate 250 ml @ 2.5 mls/hr Q24H IV 05/25/24 19:30 05/29/24 05:03 10 MLS/HR Ibuprofen 400 mg Q4HP PRN GT 05/26/24 01:15 05/26/24 01:42 400 MG Norepinephrine Bitartrate 32 mg/ Sodium Chloride 250 ml @ 0.938 mls/ hr Q24H IV 05/26/24 16:30 05/26/24 16:56 0.938 MLS/HR Cefepime HCl 0.5 gm/Dextrose 50 ml @ 12.5 mls/hr Q24H IV 05/29/24 18:00 05/29/24 17:12 12.5 MLS/HR Enteral Nutritional Formula 1,000 ml 30ML/HR GT 05/29/24 09:45 Heparin Sodium (Porcine) 5,000 units Q8HR SC 05/29/24 22:00 05/30/24 14:36 5,000 UNITS Dexmedetomidine HCl 400 mcg/ Dextrose 100 ml @ 8.18 mls/hr [id number] IV 05/29/24 14:15 Hydralazine HCl 10 mg Q6HP PRN IV 05/29/24 16:30 Pantoprazole Sodium 40 mg DAILY IV 05/30/24 10:00 05/30/24 10:24 40 MG Fluconazole 100 ml @ 100 mls/hr DAILY IV 05/30/24 10:00 05/30/24 12:01 100 MLS/HR Bumetanide 2 mg BIDD IV 05/30/24 18:00 objective GENERAL: Intubated on ventilator. LUNGS: Decreased breath sounds. CARDIOVASCULAR: Heart sounds are good. ABDOMEN: Soft. laboratory and microbiology Laboratory Tests 05/30/24 03:27 Test 05/30/24 03:27 Range/Units Serum Glucose 95 74-106 mg/dL Problem List Septic shock. Acute on chronic HFrEF, NYHA class IV, newly diagnosed. Acute hypoxic respiratory failure. NSTEMI, likely type II secondary to above. Mitral valve regurgitation, mild degree. History of hypertension. Acute kidney injury. Morbidly obese. Assessment/Plan Continued all current supportive medical care. Aspirin, Lipitor. Diuretics with Bumex. IV antibiotics as ordered. GI prophylactics. Vasopressors for hemodynamic support. Additional plan as per the hospital course. Critical care time of 45 minutes provided to include time spent evaluation of patient at bedside, when appropriate patient/family education for diagnosis, treatment plan, review of pertinent medical information and discussion of care with specialty providers and PCP. Mechanical ventilator parameters, treatment and adjustments have personally been reviewed by me and treatment plan by parts processor has also been reviewed. Dietary Evaluation Review Comments: 1) If GI is accessible consider Jevity 1.2 @ 70ml/hr x 24hr continuous feed goal rate as tolerated 2) If pt remains NPO >7 days consider TPN to meet at least 75% of estimated needs 3) Advance pt diet when medically feasible to a 2gm Sodium diet modified per CONDITIONER TENDER recommendations 4) Continue current plan of care Expected Outcomes/Goals: 1) Pt to receive nutrition support within 7 days of NPO status 2) Pt diet to advance 3) F/U in 2-3 days Plan discussed with: Other RAMON CURRY MD May 30, 2024 17:39
[2024-05-31] VITALS (107 sets, daily range): BP systolic 82–192; BP diastolic 49–138; PULSE 77–94; RESP 20–30; TEMP 97.7–98.4; O2SAT 91–98
--- NOTE | 2024-05-31 00:08 | DVH ---
EXAM: CT HEAD WITHOUT CONTRAST INDICATION: Encephalopathy TECHNIQUE: CT of the head without intravenous contrast. Radiation Dose : 1. Head: CT Dose: CTDI volume is 69 mGy. Dose-length product is 1354 mGy*cm The dose indicators for CT are the volume Computed Tomography (CT) Dose Index (CTDIvol) and the Dose Length Product (DLP), and are measured in units of mGy and mGy-cm, respectively. These indicators are not patient dose, but values generated from the CT scanner acquisition factors. The report includes radiation exposure data for exposures received during this examination. COMPARISON: CT HEAD WITHOUT CONTRAST on DOS: 05/25/24 FINDINGS: There is no evidence of acute intracranial hemorrhage, extra-axial collection, mass effect, midline s hift, herniation or hydrocephalus. The ventricles, sulci and cisterns are age appropriate. The ruiz-white differentiation is intact. Patchy periventricular and subcortical white matter hypoattenuation is nonspecific but may be related to small vessel ischemic disease. Mild mucosal thickening of the right maxillary sinus. The surrounding soft tissues and osseous structures are unremarkable. IMPRESSION: 1. No acute intracranial abnormality. 2. Chronic microvascular ischemic changes Radiation optimization: All CT scans at this facility use at least one of these dose optimization cierra hniques: automated exposure control mA and/or kV adjustment per patient size (includes targeted exam s where dose is matched to clinical indication) or iterative reconstruction.
[2024-05-31 04:36] LABS: Anion Gap 18 (5-15); Chloride 105 mmol/L (98-107); Potassium 4.3 mmol/L (3.5-5.1); Sodium 141 mmol/L (136-145)
[2024-05-31 04:42] LABS: BUN/Creatinine Ratio 14.5 (10.0-20.0); Glucose 86 mg/dL (74-106)
[2024-05-31 05:02] LABS: Blood Urea Nitrogen 124 mg/dL (9-23); Carbon Dioxide 18 mmol/L (20-31)
--- NOTE | 2024-05-31 05:24 | DVH ---
CHEST RADIOGRAPH Indication: INTUBATED Technique: Single frontal view of the chest was obtained COMPARISON: XY CHEST PORTABLE on DOS: 05/30/24, XY CHEST PORTABLE on DOS: 05/29/24, XY CHEST PORTABLE o n DOS: 05/28/24, XY CHEST PORTABLE on DOS: 05/27/24, XY CHEST PORTABLE on DOS: 05/27/24, XY CHEST PORTABLE on DOS: 05/27/24 FINDINGS: Lines and Tubes: Endotracheal tube and enteric catheter in satisfactory position. Left central venous catheter in satisfactory position. Lungs: Multifocal airspace disease Pleura: No effusion. No pneumothorax. Cardiomediastinal contours: Cardiomegaly Bones: Unremarkable IMPRESSION: Lines and tubes in satisfactory position. No significant interval change.
--- NOTE | 2024-05-31 09:25 | DVHPN2 ---
Subjective Patient was encephalopathic. Reviewed: Care Plan, H&P, Labs, Medications, Previous Orders Changes from previous H/P or p: No Changes General: Per HPI Respiratory: Shortness of breath Objective Vitals Vital Signs Date Time Temp Pulse Resp B/P (MAP) Pulse Ox O2 Delivery O2 Flow Rate FiO2 05/31/24 08:49 78 22 114/55 95 50 05/31/24 06:00 Mechanical Ventilator+ 05/31/24 04:00 98.4 98.4 Intake/Output Intake and Output 05/31/24 07:00 Intake Total 277.0 ml Output Total 2150 ml Balance -1873.0 ml Intake Oral 267 ml IV Total 10.0 ml Tube Feeding 0 ml Output Urine Total 2150 ml General Appearance: moderate distress, Other (Patient intubated and chemically sedated.) HEENT: Atraumatic, PERRLA Lungs: Clear to auscultation, Normal air movement, Other (Mechanical ventilation) Cardiovascular: Normal S1, Normal S2 Abdomen: Normal bowel sounds, Soft, No tenderness, No hepatospenomegaly Musculoskeletal: Normal sensory function, Normal motor function Extremities: No clubbing, No cyanosis, No edema, Normal pulses, No tenderness/swelling Neuro: Normal gait, Normal speech, Strength at 5/5 X4 ext Skin: Dry, Intact Psych/Mental Status: Mental status NL, Mood NL Medications Current Medications Medications Dose Ordered Sig/Yousif Route Start Time Stop Time Status Last Admin Dose Admin Midazolam HCl 50 ml @ 1 mls/hr Q24H IV 05/25/24 06:30 05/29/24 09:11 5 MLS/HR Aspirin 81 mg DAILY NG 05/26/24 10:00 05/30/24 10:25 81 MG Atorvastatin Calcium 40 mg HS NG 05/25/24 22:00 05/30/24 21:36 40 MG Ondansetron HCl 4 mg Q4HP PRN IV 05/25/24 10:45 Nitroglycerin 0.4 mg Q5MINP PRN SL 05/25/24 10:45 Albuterol 2.5 mg Q4HR NEB 05/25/24 14:00 05/31/24 06:21 2.5 MG Ipratropium [place] 0.5 mg Q4HR NEB 05/25/24 14:00 05/31/24 06:21 0.5 MG Phenylephrine HCl 250 ml @ 30 mls/hr Q8H20M IV 05/25/24 11:15 05/26/24 05:04 67.5 MLS/HR Fentanyl Citrate 250 ml @ 2.5 mls/hr Q24H IV 05/25/24 19:30 05/29/24 05:03 10 MLS/HR Ibuprofen 400 mg Q4HP PRN GT 05/26/24 01:15 05/26/24 01:42 400 MG Norepinephrine Bitartrate 32 mg/ Sodium Chloride 250 ml @ 0.938 mls/ hr Q24H IV 05/26/24 16:30 05/26/24 16:56 0.938 MLS/HR Cefepime HCl 0.5 gm/Dextrose 50 ml @ 12.5 mls/hr Q24H IV 05/29/24 18:00 05/30/24 18:39 12.5 MLS/HR Enteral Nutritional Formula 1,000 ml 30ML/HR GT 05/29/24 09:45 Heparin Sodium (Porcine) 5,000 units Q8HR SC 05/29/24 22:00 05/31/24 06:24 5,000 UNITS Dexmedetomidine HCl 400 mcg/ Dextrose 100 ml @ 8.18 mls/hr [id number] IV 05/29/24 14:15 Hydralazine HCl 10 mg Q6HP PRN IV 05/29/24 16:30 Pantoprazole Sodium 40 mg DAILY IV 05/30/24 10:00 05/30/24 10:24 40 MG Fluconazole 100 ml @ 100 mls/hr DAILY IV 05/30/24 10:00 05/30/24 12:01 100 MLS/HR Bumetanide 2 mg BIDD IV 05/30/24 18:00 05/31/24 06:20 2 MG Laboratory Results Laboratory Tests 05/30/24 03:27 05/31/24 03:18 Chemistry Test 05/31/24 03:18 Calcium Level 9.0 mg/dL (8.7-10.4) Urinalysis Test 05/25/24 08:30 05/28/24 01:30 Urine Color Yellow (Yellow) Urine Clarity Clear (Clear) Urine pH 7.5 (5.0-9.0) Urine Specific [place] 1.013 (1.001-1.035) Urine Protein 2+ (Negative) H Urine Ketones Negative (Negative) Urine Blood Negative /uL (Negative) Urine Nitrite Negative (Negative) Urine Bilirubin Negative (Negative) Urine Urobilinogen 8 mg/dL (Negative) H Urine Leukocyte Esterase Negative /uL (Negative) Urine RBC 5 /hpf (0 - 4) Urine WBC 1 /hpf (0 - 5) Urine Squamous Epithelial Cells Few /hpf (<5) Urine Bacteria None seen /hpf (None Seen) Urine Glucose Normal mg/dL (Normal) Urine Creatinine 248.25 mg/dL (30.0-125.0) H Urine Sodium 27 mmol/L (40-220) L Urine Total Protein 293.2 mg/dL (1-14) H Blood Gas Results Test 05/31/24 07:33 Arterial Blood pH 7.382 (7.350-7.450) FiO2 % 50.0 Microbiology Microbiology Date/Time Source Procedure Growth Status 05/27/24 08:50 Nose MRSA Screen - Final Complete 05/25/24 08:30 Urine - [place] Urine Culture - Final Complete 05/25/24 08:24 Blood Blood Culture - Final Streptococcus pneumoniae Complete 05/25/24 06:50 Sputum Gram Stain - Final Complete 05/25/24 06:50 Respiratory Culture - Final Presumptive Tara albicans Complete Labs and/or images reviewed: Labs reviewed by me, Image(s) reviewed by me Assessment/Plan Assessment/Plan Impression: -severe sepsis with shock , Streptococcus pneumoniae -probable community-acquired pneumonia with Gram-positive cocci -sepsis with Gram-positive cocci -acute hypoxic respiratory failure with mechanical ventilation -obesity -acute kidney injury, anuric -NSTEMI, probably type 2 -hypoalbuminemia Plan: Events: Be CT scan of the head is negative. Patient has been off sedation for 48 hours. Patient now has cough and gag, no further neurological movement noted. Plans for hemodialysis today. -patient continues to be off vasopressor therapy, hemodynamically stable, white blood cell count improving, plans for spontaneous breathing trial once patient awakens -bronchodilators -continue cefepime and Diflucan -continue current ventilator settings. Patient now on 35% FiO2 -nephrology consultation: HD has been initiated -cardiology consultation: Medical management at this time. Continue statin and ASA -PUD, DVT prophylaxis -repeat labs, chest x-ray, ABG in a.m.. Critical care time spent with patient discussing and formulating plan of care: 90 minutes. This does not include time spent performing procedures. This medical document was created using an electronic medical record system with [employer] computerized dictation system. Although this document has been carefully reviewed, there may still be some phonetic and typographical errors. These areas are purely typographical due to imperfections of the software programs, and do not reflect any compromise in the patient's medical care. Plan discussed with: Patient, Other (RN) My Orders Orders - OMAR PARK NP Procedure Category Date Status Time Head Without Contrast CT 05/30/24 Resulted 10:08 Bumetanide Injection PHA 05/30/24 In Process (Bumex Injection) 18:00 Basic Metabolic Panel LAB 06/01/24 Verified 05:00 Basic Metabolic Panel LAB 06/02/24 Verified 05:00 Respiratory Misc. RT 05/31/24 Transmitted Order 08:25 Date of Service: May 31, 2024 Billing Provider: OMAR PARK NP Common Visit Codes: [id number] INP/OBS CARE(HIGH) OMAR PARK NP May 31, 2024 09:25
--- NOTE | 2024-05-31 09:52 | DVHPN2 ---
Progress Note Date Seen: May 31, 2024 Medical Necessity Reason Pt with a Central, PICC or Fol: Yes The following are medically ne: Central Line, Putnam Catheter Reason for putnam catheter: Strict I&O Subjective Patient reports: Other Objective vital signs Vital Sign Date Time Temp Pulse Resp B/P (MAP) Pulse Ox O2 Delivery O2 Flow Rate FiO2 05/31/24 09:30 88 25 135/69 (91) 96 105/69 (81) 05/31/24 08:49 50 05/31/24 08:00 98.4 98.4 05/31/24 06:00 Mechanical Ventilator+ Total Intake and Output 05/30/24 05/30/24 05/31/24 15:00 23:00 07:00 Intake Total 220 ml 0 ml 57.0 ml Output Total 800 ml 1350 ml Balance 220 ml -800 ml -1293.0 ml medications Current Medications Medications Dose Ordered Sig/Yousif Route Start Time Stop Time Status Last Admin Dose Admin Midazolam HCl 50 ml @ 1 mls/hr Q24H IV 05/25/24 06:30 05/29/24 09:11 5 MLS/HR Aspirin 81 mg DAILY NG 05/26/24 10:00 05/30/24 10:25 81 MG Atorvastatin Calcium 40 mg HS NG 05/25/24 22:00 05/30/24 21:36 40 MG Ondansetron HCl 4 mg Q4HP PRN IV 05/25/24 10:45 Nitroglycerin 0.4 mg Q5MINP PRN SL 05/25/24 10:45 Albuterol 2.5 mg Q4HR NEB 05/25/24 14:00 05/31/24 06:21 2.5 MG Ipratropium [place] 0.5 mg Q4HR NEB 05/25/24 14:00 05/31/24 06:21 0.5 MG Phenylephrine HCl 250 ml @ 30 mls/hr Q8H20M IV 05/25/24 11:15 05/26/24 05:04 67.5 MLS/HR Fentanyl Citrate 250 ml @ 2.5 mls/hr Q24H IV 05/25/24 19:30 05/29/24 05:03 10 MLS/HR Ibuprofen 400 mg Q4HP PRN GT 05/26/24 01:15 05/26/24 01:42 400 MG Norepinephrine Bitartrate 32 mg/ Sodium Chloride 250 ml @ 0.938 mls/ hr Q24H IV 05/26/24 16:30 05/26/24 16:56 0.938 MLS/HR Cefepime HCl 0.5 gm/Dextrose 50 ml @ 12.5 mls/hr Q24H IV 05/29/24 18:00 05/30/24 18:39 12.5 MLS/HR Enteral Nutritional Formula 1,000 ml 30ML/HR GT 05/29/24 09:45 Heparin Sodium (Porcine) 5,000 units Q8HR SC 05/29/24 22:00 05/31/24 06:24 5,000 UNITS Dexmedetomidine HCl 400 mcg/ Dextrose 100 ml @ 8.18 mls/hr [id number] IV 05/29/24 14:15 Hydralazine HCl 10 mg Q6HP PRN IV 05/29/24 16:30 Pantoprazole Sodium 40 mg DAILY IV 05/30/24 10:00 05/30/24 10:24 40 MG Fluconazole 100 ml @ 100 mls/hr DAILY IV 05/30/24 10:00 05/30/24 12:01 100 MLS/HR Bumetanide 2 mg BIDD IV 05/30/24 18:00 05/31/24 06:20 2 MG Examination: GENERAL:Abnormal, HEENT:Abnormal, LUNGS:Abnormal, CVS:Abnormal, SKIN:Abnormal laboratory and microbiology Laboratory Tests 05/31/24 03:18 05/30/24 03:27 Test 05/31/24 03:18 Range/Units Serum Glucose 86 74-106 mg/dL Microbiology Date/Time Source Procedure Growth Status 05/27/24 08:50 Nose MRSA Screen - Final Complete 05/25/24 08:30 Urine - [place] Urine Culture - Final Complete 05/25/24 08:24 Blood Blood Culture - Final Streptococcus pneumoniae Complete 05/25/24 06:50 Sputum Gram Stain - Final Complete 05/25/24 06:50 Respiratory Culture - Final Presumptive Tara albicans Complete Problem List/Assessment/Plan Problem List/Assessment/Plan Acute kidney injury likely ATN Unknown baseline septic shock Gram + bacteremia Morbid obesity Strept PNA Ventilator-dependent hypoxic respiratory failure HD treatment today monitor fluid balances and ABX Plan discussed with: Other Dietary Evaluation Review Comments: 1) If GI is accessible consider Jevity 1.2 @ 70ml/hr x 24hr continuous feed goal rate as tolerated 2) If pt remains NPO >7 days consider TPN to meet at least 75% of estimated needs 3) Advance pt diet when medically feasible to a 2gm Sodium diet modified per LEAD CAREGIVER recommendations 4) Continue current plan of care Expected Outcomes/Goals: 1) Pt to receive nutrition support within 7 days of NPO status 2) Pt diet to advance 3) F/U in 2-3 days TOMY VALVERDE MD May 31, 2024 09:52
[2024-05-31 10:45] LABS: Hematocrit 26.3 % (36.0-46.0); Hemoglobin 8.5 g/dL (12.2-16.2)
--- NOTE | 2024-05-31 15:11 | DVHPN2 ---
Consult Progress Note Subjective Other Systems: Patient remains off sedation and mechanically ventilated Objective vital signs Vital Sign Date Time Temp Pulse Resp B/P (MAP) Pulse Ox O2 Delivery O2 Flow Rate FiO2 05/31/24 13:45 80 22 121/62 (81) 96 89/85 (86) 05/31/24 12:08 50 05/31/24 12:00 Mechanical Ventilator+ 05/31/24 12:00 98.2 98.2 Total Intake and Output 05/30/24 05/30/24 05/31/24 15:00 23:00 07:00 Intake Total 220 ml 0 ml 57.0 ml Output Total 800 ml 1350 ml Balance 220 ml -800 ml -1293.0 ml medications Current Medications Medications Dose Ordered Sig/Yousif Route Start Time Stop Time Status Last Admin Dose Admin Midazolam HCl 50 ml @ 1 mls/hr Q24H IV 05/25/24 06:30 05/29/24 09:11 5 MLS/HR Aspirin 81 mg DAILY NG 05/26/24 10:00 05/31/24 09:54 81 MG Atorvastatin Calcium 40 mg HS NG 05/25/24 22:00 05/30/24 21:36 40 MG Ondansetron HCl 4 mg Q4HP PRN IV 05/25/24 10:45 Nitroglycerin 0.4 mg Q5MINP PRN SL 05/25/24 10:45 Albuterol 2.5 mg Q4HR NEB 05/25/24 14:00 05/31/24 09:51 2.5 MG Ipratropium [place] 0.5 mg Q4HR NEB 05/25/24 14:00 05/31/24 09:51 0.5 MG Phenylephrine HCl 250 ml @ 30 mls/hr Q8H20M IV 05/25/24 11:15 05/26/24 05:04 67.5 MLS/HR Fentanyl Citrate 250 ml @ 2.5 mls/hr Q24H IV 05/25/24 19:30 05/29/24 05:03 10 MLS/HR Ibuprofen 400 mg Q4HP PRN GT 05/26/24 01:15 05/26/24 01:42 400 MG Norepinephrine Bitartrate 32 mg/ Sodium Chloride 250 ml @ 0.938 mls/ hr Q24H IV 05/26/24 16:30 05/26/24 16:56 0.938 MLS/HR Cefepime HCl 0.5 gm/Dextrose 50 ml @ 12.5 mls/hr Q24H IV 05/29/24 18:00 05/30/24 18:39 12.5 MLS/HR Enteral Nutritional Formula 1,000 ml 30ML/HR GT 05/29/24 09:45 Heparin Sodium (Porcine) 5,000 units Q8HR SC 05/29/24 22:00 05/31/24 14:13 5,000 UNITS Dexmedetomidine HCl 400 mcg/ Dextrose 100 ml @ 8.18 mls/hr [id number] IV 05/29/24 14:15 Hydralazine HCl 10 mg Q6HP PRN IV 05/29/24 16:30 Pantoprazole Sodium 40 mg DAILY IV 05/30/24 10:00 05/31/24 09:54 40 MG Fluconazole 100 ml @ 100 mls/hr DAILY IV 05/30/24 10:00 05/31/24 09:54 100 MLS/HR Bumetanide 2 mg BIDD IV 05/30/24 18:00 05/31/24 06:20 2 MG Epoetin Rafael-epbx 10,000 unit MWF [place] 05/31/24 21:00 Examination: GENERAL:Abnormal, LUNGS:Abnormal (Mechanically ventilated), CVS:Normal, NEURO:Abnormal (Off sedation, not waking up) laboratory and microbiology Laboratory Tests 05/31/24 03:18 05/30/24 03:27 Test 05/31/24 03:18 Range/Units Serum Glucose 86 74-106 mg/dL Problem List/Assessment/Plan Problem List/Assessment/Plan Septic shock Acute on chronic HFrEF, NYHA class IV, newly diagnosed Acute hypoxic respiratory failure NSTEMI, likely type II secondary to above Mitral valve regurgitation, mild degree History of hypertension Acute kidney injury Morbidly obese Plan/Recommendation (Dr. Benson): * Echocardiogram reveals EF 40% with severe concentric LVH * Initiate GDMT for CHF with stable BP and renal function * IV diuresis as tolerated * Lipid-lowering agent * Cardiac surveillance: Monitor and notify for any ECG changes * DVT/VTE prophylaxis * Antibiotics per primary care team Patient seen and examined at bedside with . Patient off sedation, not waking. Patient remains off of vasopressor therapy, we will consider initiation of GDMT with stable BP (arterial line showing episodes of borderline BP). Thank you for allowing us to care for this patient. Please call with any questions or concerns. Critical care time spent: 38 minutes. This medical document was created using an electronic medical record system with voice recognition software and computerized dictation system. Although this document has been carefully reviewed, there might still be some phonetic and typographical errors. Occasional wrong-word or ``sound-alike substitutions may have occurred due to the inherent limitations of voice recognition software. These areas are purely typographical due to imperfections of the software programs and do not reflect any compromise in the patient's medical care. Please read the chart carefully and recognize, using context, where these substitutions have occurred. Plan discussed with: Other (Bedside RN) Dietary Evaluation Review Comments: 1) If GI is accessible consider Jevity 1.2 @ 70ml/hr x 24hr continuous feed goal rate as tolerated 2) If pt remains NPO >7 days consider TPN to meet at least 75% of estimated needs 3) Advance pt diet when medically feasible to a 2gm Sodium diet modified per JIG MAKER recommendations 4) Continue current plan of care Expected Outcomes/Goals: 1) Pt to receive nutrition support within 7 days of NPO status 2) Pt diet to advance 3) F/U in 2-3 days Date of Service: May 31, 2024 Billing Provider: CJ BENSON MD Common Visit Codes: [id number] INP/OBS CARE(HIGH) BOB TREVINO PATIENT ACCOUNTS SPECIALIST May 31, 2024 15:11
[2024-05-31] MEDS: SODIUM CHL 0.9% 1000 ML BAG XX ONE (17:25)
[2024-05-31] MEDS: EPOETIN ALFA-EPBX 10,000 UNIT/1ML VIAL SC SCH (22:33)
--- NOTE | 2024-05-31 23:33 | DVHPN2 ---
Progress Note - Dictate Date Seen: May 31, 2024 Medical Necessity Reason Pt with a Central, PICC or Fol: Yes The following are medically ne: Central Line, Putnam Catheter Reason for putnam catheter: Strict I&O Subjective Patient seen and examined at bedside. Intubated on mechanical ventilator. Overnight events reviewed. vital signs Vital Sign Date Time Temp Pulse Resp B/P (MAP) Pulse Ox O2 Delivery O2 Flow Rate FiO2 05/31/24 22:16 91 24 115/91 (99) 94 35 05/31/24 22:00 Mechanical Ventilator+ 05/31/24 20:00 98.1 98.1 Total Intake and Output 05/30/24 05/30/24 05/31/24 15:00 23:00 07:00 Intake Total 220 ml 0 ml 57.0 ml Output Total 800 ml 1350 ml Balance 220 ml -800 ml -1293.0 ml medications Current Medications Medications Dose Ordered Sig/Yousif Route Start Time Stop Time Status Last Admin Dose Admin Midazolam HCl 50 ml @ 1 mls/hr Q24H IV 05/25/24 06:30 05/29/24 09:11 5 MLS/HR Aspirin 81 mg DAILY NG 05/26/24 10:00 05/31/24 09:54 81 MG Atorvastatin Calcium 40 mg HS NG 05/25/24 22:00 05/31/24 22:10 40 MG Ondansetron HCl 4 mg Q4HP PRN IV 05/25/24 10:45 Nitroglycerin 0.4 mg Q5MINP PRN SL 05/25/24 10:45 Albuterol 2.5 mg Q4HR NEB 05/25/24 14:00 05/31/24 22:16 2.5 MG Ipratropium [place] 0.5 mg Q4HR NEB 05/25/24 14:00 05/31/24 22:16 0.5 MG Phenylephrine HCl 250 ml @ 30 mls/hr Q8H20M IV 05/25/24 11:15 05/26/24 05:04 67.5 MLS/HR Fentanyl Citrate 250 ml @ 2.5 mls/hr Q24H IV 05/25/24 19:30 05/29/24 05:03 10 MLS/HR Ibuprofen 400 mg Q4HP PRN GT 05/26/24 01:15 05/26/24 01:42 400 MG Norepinephrine Bitartrate 32 mg/ Sodium Chloride 250 ml @ 0.938 mls/ hr Q24H IV 05/26/24 16:30 05/26/24 16:56 0.938 MLS/HR Cefepime HCl 0.5 gm/Dextrose 50 ml @ 12.5 mls/hr Q24H IV 05/29/24 18:00 05/31/24 18:35 12.5 MLS/HR Enteral Nutritional Formula 1,000 ml 30ML/HR GT 05/29/24 09:45 Heparin Sodium (Porcine) 5,000 units Q8HR SC 05/29/24 22:00 05/31/24 22:11 5,000 UNITS Dexmedetomidine HCl 400 mcg/ Dextrose 100 ml @ 8.18 mls/hr [id number] IV 05/29/24 14:15 Hydralazine HCl 10 mg Q6HP PRN IV 05/29/24 16:30 Pantoprazole Sodium 40 mg DAILY IV 05/30/24 10:00 05/31/24 09:54 40 MG Fluconazole 100 ml @ 100 mls/hr DAILY IV 05/30/24 10:00 05/31/24 09:54 100 MLS/HR Bumetanide 2 mg BIDD IV 05/30/24 18:00 05/31/24 18:41 2 MG Epoetin Rafael-epbx 10,000 unit MWF [place] 05/31/24 21:00 05/31/24 22:33 10,000 UNIT objective Gen.: Patient lying in bed in medical ICU. Intubated on mechanical ventilator. Head: Normocephalic, atraumatic. Eyes: PERRLA. Ears: Normal external anatomy. Throat: Endotracheal tube and orogastric tube in place. Neck: Supple, trachea midline. Chest: Transmitted breath sounds bilaterally. Decreased air entry bilaterally. No wheezing. Bibasilar crackles. Cardiovascular: Positive S1, positive S2. Regular rate and rhythm. Abdomen: Positive bowel sounds in all 4 quadrants. Soft, nontender, nondistended. : Putnam in place. Normal external genitalia. Rectal: Deferred. Skin: Warm, dry. Intact. Extremities: 2+ radial pulses bilaterally. No lower extremity edema. Neuro: Off sedation laboratory and microbiology Laboratory Tests 05/31/24 03:18 05/30/24 03:27 Test 05/31/24 03:18 Range/Units Serum Glucose 86 74-106 mg/dL Assessment/Plan Impression: Acute hypoxic respiratory failure On mechanical ventilator Septic shock Elevated troponin Acute kidney injury Lactic acidosis Metabolic acidosis Multifocal pneumonia, likely gram negative Pulmonary edema AE COPD Events: Remains on vent support On AC mode; RR 22, VT 600, PEEP 6, FiO2 40 -->35% (pt had increased FiO2 requirements in AM to 50%) Off sedation Off pressors, hemodynamically stable. CT head negative for intracranial hemorrhage or stroke. ABG reviewed, compensated CXR demonstrates multifocal airspace disease. Devices in place. Continue antibiotics/antifungal Tube feeds for nutritional support Diurese w/ Bumex Monitor renal function Hemodialysis per Nephrology Echo showed EF of 40%. Awaiting for mentation to improve. Labs and imaging reviewed. Rest of plan as noted below. Plan: s/p intubation on mechanical ventilator. On AC mode; RR 22, VT 600, PEEP 6, FiO2 35% Titrate FIO2 to keep O2 saturation above 90%. VAP bundle. Daily ABG and CXR while intubated Off sedation Continue bronchodilators. Steroids Continue antibiotics. F/u cultures. Pressors if necessary to maintain a mean arterial blood pressure greater than 65 mmHg. Cardiology recs appreciated. Monitor renal function Monitor electrolytes. Supplement as necessary. Monitor ins and outs. Nephrology recs appreciated. IV fluid hydration GI prophylaxis. DVT prophylaxis. Prognosis: Poor given patient's multiple co-morbidities. Condition: Critical Rest of plan per hospitalist and other consultants. A total of 35 minutes of critical care time was spent reviewing the patient record, examining the patient, making a diagnostic and therapeutic plan, discussing this plan with the medical personnel, following up on diagnostic studies and following the patient for clinical stability excluding any and all procedures. At least 50% of this time was spent in direct, [id number] contact. Thank you, MIRNA Stratton, for allowing me to participate in this patient's care. Further recommendations will depend on the patient's clinical course. Please do not hesitate to contact me if you have any questions or concerns. This medical document was created using an electronic medical record system with pocketvill[employer] system. Although these documentations are being carefully reviewed, there may still be some phonetic and typographical changes. The errors are purely typographical, due to imperfection on the software program, and do not reflect any compromise in the patient's medical care. Dietary Evaluation Review Comments: 1) If GI is accessible consider Jevity 1.2 @ 70ml/hr x 24hr continuous feed goal rate as tolerated 2) If pt remains NPO >7 days consider TPN to meet at least 75% of estimated needs 3) Advance pt diet when medically feasible to a 2gm Sodium diet modified per MID LEVEL GAME DESIGNER recommendations 4) Continue current plan of care Expected Outcomes/Goals: 1) Pt to receive nutrition support within 7 days of NPO status 2) Pt diet to advance 3) F/U in 2-3 days Plan discussed with: Other (LUZMARIA Elena) Critical Care Time(min): 35 MELODY ELIZABETH MD May 31, 2024 23:33
[2024-06-01] VITALS (106 sets, daily range): BP systolic 97–201; BP diastolic 49–168; PULSE 77–105; RESP 15–34; TEMP 97.7–99; O2SAT 88–100
[2024-06-01 04:35] LABS: Anion Gap 12 (5-15); Calcium 8.7 mg/dL (8.7-10.4); Carbon Dioxide 21 mmol/L (20-31)
[2024-06-01 04:40] LABS: BUN/Creatinine Ratio 13.1 (10.0-20.0)
[2024-06-01 04:41] LABS: % Iron Saturation 8.6 % (15-50)
[2024-06-01 04:44] LABS: Blood Urea Nitrogen 79 mg/dL (9-23); Chloride 106 mmol/L (98-107); Glucose 115 mg/dL (74-106); Sodium 139 mmol/L (136-145)
--- NOTE | 2024-06-01 04:51 | DVH ---
CHEST RADIOGRAPH Indication: INTUBATED Technique: Single frontal view of the chest was obtained Comparison: XY CHEST PORTABLE on DOS: 05/31/24 FINDINGS: Lines and Tubes: The endotracheal tube terminates 4.2 cm above the nik. The enteric tube courses b elow the left hemidiaphragm and the tip extends outside the field of view. There is a left central ve nous catheter from a left internal jugular approach however the tip is obscured by overlying artifact . Lungs: Multifocal airspace disease is unchanged. Pleura: No effusion. No pneumothorax. Cardiomediastinal contours: Stable cardiovascular silhouette. Bones: No acute osseous abnormality. IMPRESSION: 1. Support lines and tubes in stable position. 2. Multifocal airspace disease.
[2024-06-01 07:37] LABS: Base Excess -0.2 mmol/L (-2.0-3.0)
--- NOTE | 2024-06-01 09:00 | DVHPN2 ---
Subjective Patient still encephalopathic. Reviewed: Care Plan, H&P, Labs, Medications, Previous Orders Changes from previous H/P or p: No Changes General: Per HPI Respiratory: Shortness of breath Objective Vitals Vital Signs Date Time Temp Pulse Resp B/P (MAP) Pulse Ox O2 Delivery O2 Flow Rate FiO2 06/01/24 08:15 91 22 109/90 (96) 100 35 06/01/24 06:00 Mechanical Ventilator+ 06/01/24 04:00 98.2 98.2 Intake/Output Intake and Output 06/01/24 07:00 Intake Total 833 ml Output Total 3075 ml Balance -2242 ml Intake Oral 120 ml IV Total 100 ml Tube Feeding 613 ml Output Urine Total 2075 ml Other 1000 ml General Appearance: moderate distress, Other (Patient intubated and chemically sedated.) HEENT: Atraumatic, PERRLA Lungs: Clear to auscultation, Normal air movement, Other (Mechanical ventilation) Cardiovascular: Normal S1, Normal S2 Abdomen: Normal bowel sounds, Soft, No tenderness, No hepatospenomegaly Musculoskeletal: Normal sensory function, Normal motor function Extremities: No clubbing, No cyanosis, No edema, Normal pulses, No tenderness/swelling Neuro: Normal gait, Normal speech, Strength at 5/5 X4 ext Skin: Dry, Intact Psych/Mental Status: Mental status NL, Mood NL Medications Current Medications Medications Dose Ordered Sig/Yousif Route Start Time Stop Time Status Last Admin Dose Admin Midazolam HCl 50 ml @ 1 mls/hr Q24H IV 05/25/24 06:30 05/29/24 09:11 5 MLS/HR Aspirin 81 mg DAILY NG 05/26/24 10:00 05/31/24 09:54 81 MG Atorvastatin Calcium 40 mg HS NG 05/25/24 22:00 05/31/24 22:10 40 MG Ondansetron HCl 4 mg Q4HP PRN IV 05/25/24 10:45 Nitroglycerin 0.4 mg Q5MINP PRN SL 05/25/24 10:45 Albuterol 2.5 mg Q4HR NEB 05/25/24 14:00 06/01/24 06:32 2.5 MG Ipratropium [place] 0.5 mg Q4HR NEB 05/25/24 14:00 06/01/24 06:32 0.5 MG Phenylephrine HCl 250 ml @ 30 mls/hr Q8H20M IV 05/25/24 11:15 05/26/24 05:04 67.5 MLS/HR Fentanyl Citrate 250 ml @ 2.5 mls/hr Q24H IV 05/25/24 19:30 05/29/24 05:03 10 MLS/HR Ibuprofen 400 mg Q4HP PRN GT 05/26/24 01:15 05/26/24 01:42 400 MG Norepinephrine Bitartrate 32 mg/ Sodium Chloride 250 ml @ 0.938 mls/ hr Q24H IV 05/26/24 16:30 05/26/24 16:56 0.938 MLS/HR Cefepime HCl 0.5 gm/Dextrose 50 ml @ 12.5 mls/hr Q24H IV 05/29/24 18:00 05/31/24 18:35 12.5 MLS/HR Enteral Nutritional Formula 1,000 ml 30ML/HR GT 05/29/24 09:45 Heparin Sodium (Porcine) 5,000 units Q8HR SC 05/29/24 22:00 06/01/24 06:44 5,000 UNITS Dexmedetomidine HCl 400 mcg/ Dextrose 100 ml @ 8.18 mls/hr [id number] IV 05/29/24 14:15 Hydralazine HCl 10 mg Q6HP PRN IV 05/29/24 16:30 Pantoprazole Sodium 40 mg DAILY IV 05/30/24 10:00 05/31/24 09:54 40 MG Fluconazole 100 ml @ 100 mls/hr DAILY IV 05/30/24 10:00 05/31/24 09:54 100 MLS/HR Bumetanide 2 mg BIDD IV 05/30/24 18:00 06/01/24 06:43 2 MG Epoetin Rafael-epbx 10,[address] 05/31/24 21:00 05/31/24 22:33 10,000 UNIT Laboratory Results Laboratory Tests 05/30/24 03:27 05/31/24 03:18 06/01/24 04:00 Chemistry Test 06/01/24 04:00 Calcium Level 8.7 mg/dL (8.7-10.4) Urinalysis Test 05/25/24 08:30 05/28/24 01:30 Urine Color Yellow (Yellow) Urine Clarity Clear (Clear) Urine pH 7.5 (5.0-9.0) Urine Specific Platter 1.013 (1.001-1.035) Urine Protein 2+ (Negative) H Urine Ketones Negative (Negative) Urine Blood Negative /uL (Negative) Urine Nitrite Negative (Negative) Urine Bilirubin Negative (Negative) Urine Urobilinogen 8 mg/dL (Negative) H Urine Leukocyte Esterase Negative /uL (Negative) Urine RBC 5 /hpf (0 - 4) Urine WBC 1 /hpf (0 - 5) Urine Squamous Epithelial Cells Few /hpf (<5) Urine Bacteria None seen /hpf (None Seen) Urine Glucose Normal mg/dL (Normal) Urine Creatinine 248.25 mg/dL (30.0-125.0) H Urine Sodium 27 mmol/L (40-220) L Urine Total Protein 293.2 mg/dL (1-14) H Blood Gas Results Test 06/01/24 07:28 Arterial Blood pH 7.477 (7.350-7.450) FiO2 % 35.0 Microbiology Microbiology Date/Time Source Procedure Growth Status 05/27/24 08:50 Nose MRSA Screen - Final Complete 05/25/24 08:30 Urine - [place] Urine Culture - Final Complete 05/25/24 08:24 Blood Blood Culture - Final Streptococcus pneumoniae Complete 05/25/24 06:50 Sputum Gram Stain - Final Complete 05/25/24 06:50 Respiratory Culture - Final Presumptive Tara albicans Complete Labs and/or images reviewed: Labs reviewed by me, Image(s) reviewed by me Assessment/Plan Assessment/Plan Impression: -severe sepsis with shock , Streptococcus pneumoniae -probable community-acquired pneumonia with Gram-positive cocci -sepsis with Gram-positive cocci -acute hypoxic respiratory failure with mechanical ventilation -obesity -acute kidney injury, anuric -NSTEMI, probably type 2 -hypoalbuminemia Plan: Events: HD yesterday. Improved B/C. Off pressors. UOP increasing. Still not waking up. -patient continues to be off vasopressor therapy, hemodynamically stable, white blood cell count improving, plans for spontaneous breathing trial once patient awakens -bronchodilators -continue cefepime and Diflucan -continue current ventilator settings. Patient now on 35% FiO2 -nephrology consultation: HD has been initiated -cardiology consultation: Medical management at this time. Continue statin and ASA -PUD, DVT prophylaxis -repeat labs, chest x-ray, ABG in a.m.. Critical care time spent with patient discussing and formulating plan of care: 90 minutes. This does not include time spent performing procedures. This medical document was created using an electronic medical record system with [employer] dictation system. Although this document has been carefully reviewed, there may still be some phonetic and typographical errors. These areas are purely typographical due to imperfections of the software programs, and do not reflect any compromise in the patient's medical care. Plan discussed with: Patient, Other (RN) My Orders Orders - OMAR PARK NP Procedure Category Date Status Time Respiratory Misc. RT 05/31/24 Transmitted Order 11:10 Cpap/Sed Vacation Med ORDERS 06/01/24 Transmitted Weaning 08:20 Cpap/Sed Vacation Med ORDERS 06/01/24 Transmitted Weaning 08:20 Date of Service: Jun 01, 2024 Billing Provider: OMAR PARK NP Common Visit Codes: [id number] CARE 30-74 MIN OMAR PARK NP Jun 01, 2024 09:00
[2024-06-01] MEDS: hydrALAZINE HCL 20 MG/ML VL IV PRN (10:44)
--- NOTE | 2024-06-01 12:43 | DVHPN2 ---
Progress Note Date Seen: Jun 01, 2024 Medical Necessity Reason Pt with a Central, PICC or Fol: Yes The following are medically ne: Central Line, Putnam Catheter Reason for putnam catheter: Strict I&O Subjective Review of Systems: RESPIRATORY:Abnormal Objective vital signs Vital Sign Date Time Temp Pulse Resp B/P (MAP) Pulse Ox O2 Delivery O2 Flow Rate FiO2 06/01/24 12:21 94 22 150/86 (107) 100 35 06/01/24 12:00 Mechanical Ventilator+ 06/01/24 08:00 97.7 97.7 Total Intake and Output 05/31/24 05/31/24 06/01/24 14:59 22:59 06:59 Intake Total 100 ml 416 ml 317 ml Output Total 2200 ml 875 ml Balance 100 ml -1784 ml -558 ml medications Current Medications Medications Dose Ordered Sig/Yousif Route Start Time Stop Time Status Last Admin Dose Admin Midazolam HCl 50 ml @ 1 mls/hr Q24H IV 05/25/24 06:30 05/29/24 09:11 5 MLS/HR Aspirin 81 mg DAILY NG 05/26/24 10:00 06/01/24 10:45 81 MG Atorvastatin Calcium 40 mg HS NG 05/25/24 22:00 05/31/24 22:10 40 MG Ondansetron HCl 4 mg Q4HP PRN IV 05/25/24 10:45 Nitroglycerin 0.4 mg Q5MINP PRN SL 05/25/24 10:45 Albuterol 2.5 mg Q4HR NEB 05/25/24 14:00 06/01/24 10:17 2.5 MG Ipratropium [place] 0.5 mg Q4HR NEB 05/25/24 14:00 06/01/24 10:17 0.5 MG Phenylephrine HCl 250 ml @ 30 mls/hr Q8H20M IV 05/25/24 11:15 05/26/24 05:04 67.5 MLS/HR Fentanyl Citrate 250 ml @ 2.5 mls/hr Q24H IV 05/25/24 19:30 05/29/24 05:03 10 MLS/HR Ibuprofen 400 mg Q4HP PRN GT 05/26/24 01:15 05/26/24 01:42 400 MG Norepinephrine Bitartrate 32 mg/ Sodium Chloride 250 ml @ 0.938 mls/ hr Q24H IV 05/26/24 16:30 05/26/24 16:56 0.938 MLS/HR Cefepime HCl 0.5 gm/Dextrose 50 ml @ 12.5 mls/hr Q24H IV 05/29/24 18:00 05/31/24 18:35 12.5 MLS/HR Enteral Nutritional Formula 1,000 ml 30ML/HR GT 05/29/24 09:45 Heparin Sodium (Porcine) 5,000 units Q8HR SC 05/29/24 22:00 06/01/24 06:44 5,000 UNITS Dexmedetomidine HCl 400 mcg/ Dextrose 100 ml @ 8.18 mls/hr [id number] IV 05/29/24 14:15 Hydralazine HCl 10 mg Q6HP PRN IV 05/29/24 16:30 06/01/24 10:44 10 MG Pantoprazole Sodium 40 mg DAILY IV 05/30/24 10:00 06/01/24 10:44 40 MG Fluconazole 100 ml @ 100 mls/hr DAILY IV 05/30/24 10:00 06/01/24 10:45 100 MLS/HR Bumetanide 2 mg BIDD IV 05/30/24 18:00 06/01/24 06:43 2 MG Epoetin Rafael-epbx 10,000 unit MWF [place] 05/31/24 21:00 05/31/24 22:33 10,000 UNIT Examination: GENERAL:Abnormal, LUNGS:Abnormal laboratory and microbiology Laboratory Tests 06/01/24 04:00 05/31/24 03:18 05/30/24 03:27 Test 06/01/24 04:00 Range/Units Serum Glucose 115 H 74-106 mg/dL Microbiology Date/Time Source Procedure Growth Status 05/27/24 08:50 Nose MRSA Screen - Final Complete 05/25/24 08:30 Urine - [place] Urine Culture - Final Complete 05/25/24 08:24 Blood Blood Culture - Final Streptococcus pneumoniae Complete 05/25/24 06:50 Sputum Gram Stain - Final Complete 05/25/24 06:50 Respiratory Culture - Final Presumptive Tara albicans Complete Problem List/Assessment/Plan Problem List/Assessment/Plan Acute kidney injury likely ATN Unknown baseline septic shock Gram + bacteremia Morbid obesity Strept PNA Ventilator-dependent hypoxic respiratory failure HD treatment tomorrow monitor fluid balances and ABX Plan discussed with: Other Dietary Evaluation Review Comments: 1) If GI is accessible consider Jevity 1.2 @ 70ml/hr x 24hr continuous feed goal rate as tolerated 2) If pt remains NPO >7 days consider TPN to meet at least 75% of estimated needs 3) Advance pt diet when medically feasible to a 2gm Sodium diet modified per BUSINESS CONTINUITY GLOBAL DIRECTOR recommendations 4) Continue current plan of care Expected Outcomes/Goals: 1) Pt to receive nutrition support within 7 days of NPO status 2) Pt diet to advance 3) F/U in 2-3 days TOMY VALVERDE MD Jun 01, 2024 12:43
[2024-06-01] MEDS: DexAMETHasone SOD PHOS 4 MG/1ML SDV INJ IV SCH (16:59)
[2024-06-01] MEDS: diphenhdrAMINE HCL 50 MG/1 ML VL IV ONE (17:12)
[2024-06-01] MEDS: FAMOTIDINE INJECTION 40 MG in SODIUM CHL 0.9% 100 ML IV ONE (17:38)
[2024-06-01] MEDS: IRON SUCROSE COMPLEX 110 ML IV SCH (17:57)
[2024-06-01] MEDS: dilTIAZem 25 MG/5 ML VIAL IV ONE (20:06)
--- NOTE | 2024-06-01 21:41 | DVHPN2 ---
Progress Note - Dictate Date Seen: Jun 01, 2024 Medical Necessity Reason Pt with a Central, PICC or Fol: Yes The following are medically ne: Central Line, Putnam Catheter Reason for putnam catheter: Strict I&O Subjective Patient seen and examined at bedside. Intubated on mechanical ventilator. Overnight events reviewed. vital signs Vital Sign Date Time Temp Pulse Resp B/P (MAP) Pulse Ox O2 Delivery O2 Flow Rate FiO2 06/01/24 20:35 103 32 145/96 (112) 92 35 06/01/24 18:00 Mechanical Ventilator+ 06/01/24 16:00 98.2 98.2 Total Intake and Output 05/31/24 05/31/24 06/01/24 15:00 23:00 07:00 Intake Total 100 ml 416 ml 317 ml Output Total 2200 ml 875 ml Balance 100 ml -1784 ml -558 ml medications Current Medications Medications Dose Ordered Sig/Yousif Route Start Time Stop Time Status Last Admin Dose Admin Midazolam HCl 50 ml @ 1 mls/hr Q24H IV 05/25/24 06:30 05/29/24 09:11 5 MLS/HR Aspirin 81 mg DAILY NG 05/26/24 10:00 06/01/24 10:45 81 MG Atorvastatin Calcium 40 mg HS NG 05/25/24 22:00 05/31/24 22:10 40 MG Ondansetron HCl 4 mg Q4HP PRN IV 05/25/24 10:45 Nitroglycerin 0.4 mg Q5MINP PRN SL 05/25/24 10:45 Albuterol 2.5 mg Q4HR NEB 05/25/24 14:00 06/01/24 18:11 2.5 MG Ipratropium [place] 0.5 mg Q4HR NEB 05/25/24 14:00 06/01/24 18:11 0.5 MG Phenylephrine HCl 250 ml @ 30 mls/hr Q8H20M IV 05/25/24 11:15 05/26/24 05:04 67.5 MLS/HR Fentanyl Citrate 250 ml @ 2.5 mls/hr Q24H IV 05/25/24 19:30 06/01/24 20:28 2.5 MLS/HR Ibuprofen 400 mg Q4HP PRN GT 05/26/24 01:15 05/26/24 01:42 400 MG Norepinephrine Bitartrate 32 mg/ Sodium Chloride 250 ml @ 0.938 mls/ hr Q24H IV 05/26/24 16:30 05/26/24 16:56 0.938 MLS/HR Cefepime HCl 0.5 gm/Dextrose 50 ml @ 12.5 mls/hr Q24H IV 05/29/24 18:00 06/01/24 17:36 12.5 MLS/HR Enteral Nutritional Formula 1,000 ml 30ML/HR GT 05/29/24 09:45 Heparin Sodium (Porcine) 5,000 units Q8HR SC 05/29/24 22:00 06/01/24 17:00 5,000 UNITS Dexmedetomidine HCl 400 mcg/ Dextrose 100 ml @ 8.18 mls/hr [id number] IV 05/29/24 14:15 Hydralazine HCl 10 mg Q6HP PRN IV 05/29/24 16:30 06/01/24 16:59 10 MG Pantoprazole Sodium 40 mg DAILY IV 05/30/24 10:00 06/01/24 10:44 40 MG Fluconazole 100 ml @ 100 mls/hr DAILY IV 05/30/24 10:00 06/01/24 10:45 100 MLS/HR Bumetanide 2 mg BIDD IV 05/30/24 18:00 06/01/24 17:31 2 MG Epoetin Rafael-epbx 10,000 unit MWF [place] 05/31/24 21:00 05/31/24 22:33 10,000 UNIT Dexamethasone Sodium Phosphate 4 mg Q8HR IV 06/01/24 16:30 06/01/24 16:59 4 MG Iron Sucrose 110 ml @ 110 mls/hr DAILY@1200 IV 06/01/24 17:57 06/05/24 12:59 objective Gen.: Patient lying in bed in medical ICU. Intubated on mechanical ventilator. Head: Normocephalic, atraumatic. Eyes: PERRLA. Ears: Normal external anatomy. Throat: Endotracheal tube and orogastric tube in place. Neck: Supple, trachea midline. Chest: Transmitted breath sounds bilaterally. Decreased air entry bilaterally. No wheezing. Bibasilar crackles. Cardiovascular: Positive S1, positive S2. Regular rate and rhythm. Abdomen: Positive bowel sounds in all 4 quadrants. Soft, nontender, nondistended. : Putnam in place. Normal external genitalia. Rectal: Deferred. Skin: Warm, dry. Intact. Extremities: 2+ radial pulses bilaterally. No lower extremity edema. Neuro: Off sedation laboratory and microbiology Laboratory Tests 06/01/24 04:00 05/31/24 03:18 05/30/24 03:27 Test 06/01/24 04:00 Range/Units Serum Glucose 115 H 74-106 mg/dL Assessment/Plan Impression: Acute hypoxic respiratory failure On mechanical ventilator Septic shock Elevated troponin Acute kidney injury Lactic acidosis Metabolic acidosis Multifocal pneumonia, likely gram negative Pulmonary edema AE COPD Events: Remains on vent support On AC mode; RR 22, VT 600, PEEP 6, FiO2 35% On Benadryl - swollen tongue No air leak Continue steroids Pepcid for GI prophylaxis Hemodialysis in the AM Nephrology recs appreciated. ABG reviewed, notable for alkalemia CXR demonstrates multifocal airspace disease, unchanged. Devices in place. Continue antibiotics/antifungal Tube feeds for nutritional support Diurese w/ Bumex Monitor renal function Hemodialysis per Nephrology Echo showed EF of 40%. Awaiting for mentation to improve. Labs and imaging reviewed. Rest of plan as noted below. Plan: s/p intubation on mechanical ventilator. On AC mode; RR 22, VT 600, PEEP 6, FiO2 35% Titrate FIO2 to keep O2 saturation above 90%. VAP bundle. Daily ABG and CXR while intubated Off sedation Off pressors, hemodynamically stable. Continue bronchodilators. Steroids Continue antibiotics. F/u cultures. Pressors if necessary to maintain a mean arterial blood pressure greater than 65 mmHg. Cardiology recs appreciated. Monitor renal function Monitor electrolytes. Supplement as necessary. Monitor ins and outs. Nephrology recs appreciated. IV fluid hydration GI prophylaxis. DVT prophylaxis. Prognosis: Poor given patient's multiple co-morbidities. Condition: Critical Rest of plan per hospitalist and other consultants. A total of 35 minutes of critical care time was spent reviewing the patient record, examining the patient, making a diagnostic and therapeutic plan, discussing this plan with the medical personnel, following up on diagnostic studies and following the patient for clinical stability excluding any and all procedures. At least 50% of this time was spent in direct, [id number] contact. Thank you, MIRNA Stratton, for allowing me to participate in this patient's care. Further recommendations will depend on the patient's clinical course. Please do not hesitate to contact me if you have any questions or concerns. This medical document was created using an electronic medical record system with [email or web address] dictation system. Although these documentations are being carefully reviewed, there may still be some phonetic and typographical changes. The errors are purely typographical, due to imperfection on the software program, and do not reflect any compromise in the patient's medical care. Dietary Evaluation Review Comments: 1) If GI is accessible consider Jevity 1.2 @ 70ml/hr x 24hr continuous feed goal rate as tolerated 2) If pt remains NPO >7 days consider TPN to meet at least 75% of estimated needs 3) Advance pt diet when medically feasible to a 2gm Sodium diet modified per HOME ADMINISTRATOR recommendations 4) Continue current plan of care Expected Outcomes/Goals: 1) Pt to receive nutrition support within 7 days of NPO status 2) Pt diet to advance 3) F/U in 2-3 days Plan discussed with: Other (LUZMARIA Elena) Critical Care Time(min): 35 MELODY ELIZABETH MD Jun 01, 2024 21:40
[2024-06-02] VITALS (104 sets, daily range): BP systolic 78–214; BP diastolic 51–144; PULSE 75–112; RESP 15–36; TEMP 97.3–98.5; O2SAT 87–99
[2024-06-02 04:03] LABS: Basophils # (auto) 0 10 ^3/uL (0-0.2); Basophils % (auto) 0.2 % (0.0-2.0); Eosinophils # (auto) 0 10 ^3/uL (0-0.8); Eosinophils % (auto) 0.1 % (0.0-7.0); Hematocrit 27.3 % (36.0-46.0); Lymphocytes # (auto) 0.6 10 ^3/uL (0.4-5.4); Lymphocytes % (auto) 2.5 % (10.0-50.0); Mean Corpuscular Hemoglobin 29.3 pg (28.0-32.0); Mean Corpuscular Hgb Conc. 32.7 g/dL (32.0-36.0); Mean Corpuscular Volume 89.4 fL (80.0-100.0); Monocytes # (auto) 0.7 10 ^3/uL (0-1.3); Monocytes % (auto) 2.9 % (0.0-12.0); Neutrophils # (auto) 21.1 10 ^3/uL (1.6-8.6); Neutrophils % (auto) 94.3 % (37.0-80.0); Platelet Count (auto) 342 10^3/uL (140-450); Red Blood Cells 3.06 10^6/uL (4.0-5.20); Red Cell Distribution Width 15.2 % (11.8-14.3); White Blood Cell 22.4 10^3/uL (4.4-10.8)
[2024-06-02 04:13] LABS: Chloride 105 mmol/L (98-107); Potassium 4.7 mmol/L (3.5-5.1); Sodium 142 mmol/L (136-145)
[2024-06-02 04:14] LABS: Anion Gap 13 (5-15); Calcium 9.2 mg/dL (8.7-10.4); Carbon Dioxide 24 mmol/L (20-31)
[2024-06-02 04:19] LABS: BUN/Creatinine Ratio 18.7 (10.0-20.0)
[2024-06-02 04:24] LABS: Glucose 142 mg/dL (74-106)
[2024-06-02 04:25] LABS: Blood Urea Nitrogen 123 mg/dL (9-23)
[2024-06-02 04:51] LABS: Magnesium 2.6 mg/dL (1.6-2.6)
[2024-06-02 04:53] LABS: Phosphorus 10.9 mg/dL (2.4-5.1)
--- NOTE | 2024-06-02 05:21 | DVH ---
CHEST RADIOGRAPH Indication: INTUBATED Technique: Single frontal view of the chest was obtained Comparison: XY CHEST PORTABLE on DOS: 06/01/24, XY CHEST PORTABLE on DOS: 05/31/24, XY CHEST PORTABLE o n DOS: 05/30/24, XY CHEST PORTABLE on DOS: 05/29/24, XY CHEST PORTABLE on DOS: 05/28/24, XY CHEST PORTAB LE on DOS: 06/01/24 FINDINGS: Lines and Tubes: The endotracheal tube terminates 4.2 cm above the nik. The enteric tube courses b elow the left hemidiaphragm and the tip extends outside the field of view. There is a left central ve nous catheter from a left internal jugular approach however the tip is obscured by overlying artifact . Lungs: Multifocal airspace disease is unchanged. Pleura: No effusion. No pneumothorax. Cardiomediastinal contours: Stable cardiovascular silhouette. Bones: No acute osseous abnormality. IMPRESSION: 1. Support lines and tubes in stable position. 2. Multifocal airspace disease.
[2024-06-02 08:09] LABS: Base Excess -0.7 mmol/L (-2.0-3.0)
--- NOTE | 2024-06-02 08:48 | DVHPN2 ---
Subjective Patient still encephalopathic. Reviewed: Care Plan, H&P, Labs, Medications, Previous Orders Changes from previous H/P or p: No Changes General: Per HPI Respiratory: Shortness of breath Objective Vitals Vital Signs Date Time Temp Pulse Resp B/P (MAP) Pulse Ox O2 Delivery O2 Flow Rate FiO2 06/02/24 08:26 95 22 135/61 (85) 92 35 06/02/24 06:00 Mechanical Ventilator+ 06/02/24 04:15 97.8 97.8 Intake/Output Intake and Output 06/02/24 07:00 Intake Total 1005.8 ml Output Total 2700 ml Balance -1694.2 ml Intake Oral 150 ml IV Total 137.8 ml Tube Feeding 718 ml Output Urine Total 2700 ml General Appearance: moderate distress, Other (Patient intubated and chemically sedated.) HEENT: Atraumatic, PERRLA, Other (Patient with tongue swelling.) Lungs: Clear to auscultation, Normal air movement, Other (Mechanical ventilation) Cardiovascular: Normal S1, Normal S2 Abdomen: Normal bowel sounds, Soft, No tenderness, No hepatospenomegaly Musculoskeletal: Normal sensory function, Normal motor function Extremities: No clubbing, No cyanosis, No edema, Normal pulses, No tenderness/swelling Neuro: Normal gait, Normal speech, Strength at 5/5 X4 ext Skin: Dry, Intact Psych/Mental Status: Mental status NL, Mood NL Medications Current Medications Medications Dose Ordered Sig/Yousif Route Start Time Stop Time Status Last Admin Dose Admin Midazolam HCl 50 ml @ 1 mls/hr Q24H IV 05/25/24 06:30 05/29/24 09:11 5 MLS/HR Aspirin 81 mg DAILY NG 05/26/24 10:00 06/01/24 10:45 81 MG Atorvastatin Calcium 40 mg HS NG 05/25/24 22:00 06/01/24 22:05 40 MG Ondansetron HCl 4 mg Q4HP PRN IV 05/25/24 10:45 Nitroglycerin 0.4 mg Q5MINP PRN SL 05/25/24 10:45 Albuterol 2.5 mg Q4HR NEB 05/25/24 14:00 06/02/24 02:15 2.5 MG Ipratropium [place] 0.5 mg Q4HR NEB 05/25/24 14:00 06/02/24 02:15 0.5 MG Phenylephrine HCl 250 ml @ 30 mls/hr Q8H20M IV 05/25/24 11:15 05/26/24 05:04 67.5 MLS/HR Fentanyl Citrate 250 ml @ 2.5 mls/hr Q24H IV 05/25/24 19:30 06/01/24 20:28 2.5 MLS/HR Ibuprofen 400 mg Q4HP PRN GT 05/26/24 01:15 05/26/24 01:42 400 MG Norepinephrine Bitartrate 32 mg/ Sodium Chloride 250 ml @ 0.938 mls/ hr Q24H IV 05/26/24 16:30 05/26/24 16:56 0.938 MLS/HR Cefepime HCl 0.5 gm/Dextrose 50 ml @ 12.5 mls/hr Q24H IV 05/29/24 18:00 06/01/24 17:36 12.5 MLS/HR Enteral Nutritional Formula 1,000 ml 30ML/HR GT 05/29/24 09:45 Heparin Sodium (Porcine) 5,000 units Q8HR SC 05/29/24 22:00 06/02/24 05:22 5,000 UNITS Dexmedetomidine HCl 400 mcg/ Dextrose 100 ml @ 8.18 mls/hr [id number] IV 05/29/24 14:15 06/02/24 04:50 8.18 MLS/HR Hydralazine HCl 10 mg Q6HP PRN IV 05/29/24 16:30 06/02/24 07:08 10 MG Pantoprazole Sodium 40 mg DAILY IV 05/30/24 10:00 06/01/24 10:44 40 MG Fluconazole 100 ml @ 100 mls/hr DAILY IV 05/30/24 10:00 06/01/24 10:45 100 MLS/HR Bumetanide 2 mg BIDD IV 05/30/24 18:00 06/02/24 05:01 2 MG Epoetin Rafael-epbx 10,000 unit MWF [place] 05/31/24 21:00 05/31/24 22:33 10,000 UNIT Dexamethasone Sodium Phosphate 4 mg Q8HR IV 06/01/24 16:30 06/02/24 05:00 4 MG Iron Sucrose 110 ml @ 110 mls/hr DAILY@1200 IV 06/01/24 17:57 06/05/24 12:59 Laboratory Results Laboratory Tests 06/02/24 03:20 Chemistry Test 06/02/24 03:20 Calcium Level 9.2 mg/dL (8.7-10.4) Magnesium Level 2.6 mg/dL (1.6-2.6) Phosphorus Level 10.9 mg/dL (2.4-5.1) H Urinalysis Test 05/25/24 08:30 05/28/24 01:30 Urine Color Yellow (Yellow) Urine Clarity Clear (Clear) Urine pH 7.5 (5.0-9.0) Urine Specific Reading 1.013 (1.001-1.035) Urine Protein 2+ (Negative) H Urine Ketones Negative (Negative) Urine Blood Negative /uL (Negative) Urine Nitrite Negative (Negative) Urine Bilirubin Negative (Negative) Urine Urobilinogen 8 mg/dL (Negative) H Urine Leukocyte Esterase Negative /uL (Negative) Urine RBC 5 /hpf (0 - 4) Urine WBC 1 /hpf (0 - 5) Urine Squamous Epithelial Cells Few /hpf (<5) Urine Bacteria None seen /hpf (None Seen) Urine Glucose Normal mg/dL (Normal) Urine Creatinine 248.25 mg/dL (30.0-125.0) H Urine Sodium 27 mmol/L (40-220) L Urine Total Protein 293.2 mg/dL (1-14) H Blood Gas Results Test 06/02/24 07:50 Arterial Blood pH 7.482 (7.350-7.450) FiO2 % 35.0 Microbiology Microbiology Date/Time Source Procedure Growth Status 05/27/24 08:50 Nose MRSA Screen - Final Complete 05/25/24 08:30 Urine - [place] Urine Culture - Final Complete 05/25/24 08:24 Blood Blood Culture - Final Streptococcus pneumoniae Complete 05/25/24 06:50 Sputum Gram Stain - Final Complete 05/25/24 06:50 Respiratory Culture - Final Presumptive Tara albicans Complete Labs and/or images reviewed: Labs reviewed by me, Image(s) reviewed by me Assessment/Plan Assessment/Plan Impression: -severe sepsis with shock , Streptococcus pneumoniae -probable community-acquired pneumonia with Gram-positive cocci -sepsis with Gram-positive cocci -acute hypoxic respiratory failure with mechanical ventilation -obesity -acute kidney injury, anuric -NSTEMI, probably type 2 -hypoalbuminemia -? Angioedema Plan: Events: Patient developed severe tongue swelling yesterday with no air leak around ET tube. Neurologically, patient was not waking up yet or following commands. Patient does have positive gag, cough. Plans for hemodialysis today. Patient was treated with Decadron, Pepcid, Benadryl for questionable angioedema with the patient's tongue no longer swollen. Repeat spontaneous breathing trial once appropriate. Check vitamin D, B12, folic acid, ammonia level -patient continues to be off vasopressor therapy, hemodynamically stable, white blood cell count improving, plans for spontaneous breathing trial once patient awakens -bronchodilators -continue cefepime and Diflucan -continue current ventilator settings. Patient now on 35% FiO2 -nephrology consultation: HD has been initiated -cardiology consultation: Medical management at this time. Continue statin and ASA -PUD, DVT prophylaxis -repeat labs, chest x-ray, ABG in a.m.. Critical care time spent with patient discussing and formulating plan of care: 90 minutes. This does not include time spent performing procedures. This medical document was created using an electronic medical record system with [employer] dictation system. Although this document has been carefully reviewed, there may still be some phonetic and typographical errors. These areas are purely typographical due to imperfections of the software programs, and do not reflect any compromise in the patient's medical care. Plan discussed with: Patient, Other (RN) My Orders Orders - OMAR PARK NP Procedure Category Date Status Time Complete Blood Count LAB 06/03/24 Verified 05:00 Complete Blood Count LAB 06/04/24 Verified 05:00 Complete Blood Count LAB 06/05/24 Verified 05:00 Complete Blood Count LAB 06/06/24 Verified 05:00 Dexamethasone PHA 06/01/24 In Process Injection (Decadron 16:30 Date of Service: Jun 02, 2024 Billing Provider: OMAR PARK NP Common Visit Codes: [id number] CARE 30-74 MIN OMAR PARK NP Jun 02, 2024 08:48
--- NOTE | 2024-06-02 09:30 | DVHPN2 ---
Consult Progress Note Subjective Other Systems: The patient remains chemically sedated and mechanically ventilated. Normal sinus rhythm on monitor and storage bin tender Objective vital signs Vital Sign Date Time Temp Pulse Resp B/P (MAP) Pulse Ox O2 Delivery O2 Flow Rate FiO2 06/02/24 08:26 95 22 135/61 (85) 92 35 06/02/24 06:00 Mechanical Ventilator+ 06/02/24 04:15 97.8 97.8 Total Intake and Output 06/01/24 06/01/24 06/02/24 15:00 23:00 07:00 Intake Total 100 ml 460.5 ml 445.3 ml Output Total 1350 ml 1350 ml Balance 100 ml -889.5 ml -904.7 ml medications Current Medications Medications Dose Ordered Sig/Yousif Route Start Time Stop Time Status Last Admin Dose Admin Midazolam HCl 50 ml @ 1 mls/hr Q24H IV 05/25/24 06:30 05/29/24 09:11 5 MLS/HR Aspirin 81 mg DAILY NG 05/26/24 10:00 06/01/24 10:45 81 MG Atorvastatin Calcium 40 mg HS NG 05/25/24 22:00 06/01/24 22:05 40 MG Ondansetron HCl 4 mg Q4HP PRN IV 05/25/24 10:45 Nitroglycerin 0.4 mg Q5MINP PRN SL 05/25/24 10:45 Albuterol 2.5 mg Q4HR NEB 05/25/24 14:00 06/02/24 02:15 2.5 MG Ipratropium [place] 0.5 mg Q4HR NEB 05/25/24 14:00 06/02/24 02:15 0.5 MG Phenylephrine HCl 250 ml @ 30 mls/hr Q8H20M IV 05/25/24 11:15 05/26/24 05:04 67.5 MLS/HR Fentanyl Citrate 250 ml @ 2.5 mls/hr Q24H IV 05/25/24 19:30 06/01/24 20:28 2.5 MLS/HR Ibuprofen 400 mg Q4HP PRN GT 05/26/24 01:15 05/26/24 01:42 400 MG Norepinephrine Bitartrate 32 mg/ Sodium Chloride 250 ml @ 0.938 mls/ hr Q24H IV 05/26/24 16:30 05/26/24 16:56 0.938 MLS/HR Cefepime HCl 0.5 gm/Dextrose 50 ml @ 12.5 mls/hr Q24H IV 05/29/24 18:00 06/01/24 17:36 12.5 MLS/HR Enteral Nutritional Formula 1,000 ml 30ML/HR GT 05/29/24 09:45 Heparin Sodium (Porcine) 5,000 units Q8HR SC 05/29/24 22:00 06/02/24 05:22 5,000 UNITS Dexmedetomidine HCl 400 mcg/ Dextrose 100 ml @ 8.18 mls/hr [id number] IV 05/29/24 14:15 06/02/24 04:50 8.18 MLS/HR Hydralazine HCl 10 mg Q6HP PRN IV 05/29/24 16:30 06/02/24 07:08 10 MG Pantoprazole Sodium 40 mg DAILY IV 05/30/24 10:00 06/01/24 10:44 40 MG Fluconazole 100 ml @ 100 mls/hr DAILY IV 05/30/24 10:00 06/01/24 10:45 100 MLS/HR Bumetanide 2 mg BIDD IV 05/30/24 18:00 06/02/24 05:01 2 MG Epoetin Rafael-epbx 10,000 unit MWF SC 05/31/24 21:00 05/31/24 22:33 10,000 UNIT Dexamethasone Sodium Phosphate 4 mg Q8HR IV 06/01/24 16:30 06/02/24 05:00 4 MG Iron Sucrose 110 ml @ 110 mls/hr DAILY@1200 IV 06/01/24 17:57 06/05/24 12:59 Calcium Acetate 1,334 mg Q8HR GT 06/02/24 14:00 UNV Examination: GENERAL:Abnormal, LUNGS:Abnormal (Mechanically ventilated), CVS:Normal, NEURO:Abnormal (Chemically sedated) laboratory and microbiology Laboratory Tests 06/02/24 03:20 Test 06/02/24 03:20 Range/Units Serum Glucose 142 H 74-106 mg/dL Problem List/Assessment/Plan Problem List/Assessment/Plan Septic shock Acute on chronic HFrEF, NYHA class IV, newly diagnosed Acute hypoxic respiratory failure NSTEMI, likely type II secondary to above Mitral valve regurgitation, mild degree Bacteremia History of hypertension Acute kidney injury Morbidly obese Plan/Recommendation (Dr. Benson): * Echocardiogram reveals EF 40% with severe concentric LVH * Initiate GDMT for CHF with stable BP and renal function * Lipid-lowering agent * Cardiac surveillance: Monitor and notify for any ECG changes * DVT/VTE prophylaxis * Antibiotics per primary care team Patient seen and examined at bedside with . Patient remains off of vasopressor therapy for a few days, we will slowly initiate GDMT per BP response and as renal function allows. Thank you for allowing us to care for this patient. Please call with any questions or concerns. Critical care time spent: 38 minutes. This medical document was created using an electronic medical record system with voice recognition software and computerized dictation system. Although this document has been carefully reviewed, there might still be some phonetic and typographical errors. Occasional wrong-word or ``sound-alike substitutions may have occurred due to the inherent limitations of voice recognition software. These areas are purely typographical due to imperfections of the software programs and do not reflect any compromise in the patient's medical care. Please read the chart carefully and recognize, using context, where these substitutions have occurred. Plan discussed with: Other (Bedside RN, Ty) Dietary Evaluation Review Comments: 1) If GI is accessible consider Jevity 1.2 @ 70ml/hr x 24hr continuous feed goal rate as tolerated 2) If pt remains NPO >7 days consider TPN to meet at least 75% of estimated needs 3) Advance pt diet when medically feasible to a 2gm Sodium diet modified per ENGRAVER LETTER recommendations 4) Continue current plan of care Expected Outcomes/Goals: 1) Pt to receive nutrition support within 7 days of NPO status 2) Pt diet to advance 3) F/U in 2-3 days Date of Service: Jun 02, 2024 Billing Provider: CJ BENSON MD Common Visit Codes: [id number] CARE 30-74 MIN BOB TREVINO Jun 02, 2024 09:29
[2024-06-02] MEDS: SODIUM CHL 0.9% 1000 ML BAG XX ONE (09:45)
[2024-06-02] MEDS ORDERED: ALBUMIN 25% 100 ML IV ONE (10:30)
[2024-06-02] MEDS: ALBUMIN 25% 100 ML IV ONE (10:45)
--- NOTE | 2024-06-02 14:35 | DVHPN2 ---
Progress Note Date Seen: Jun 02, 2024 Medical Necessity Reason Pt with a Central, PICC or Fol: Yes The following are medically ne: Central Line, Putnam Catheter Reason for putnam catheter: Strict I&O Subjective Review of Systems: RESPIRATORY:Abnormal Objective vital signs Vital Sign Date Time Temp Pulse Resp B/P (MAP) Pulse Ox O2 Delivery O2 Flow Rate FiO2 06/02/24 11:57 98 22 115/56 (75) 94 35 06/02/24 10:00 Mechanical Ventilator+ 06/02/24 08:00 98.5 98.5 Total Intake and Output 06/01/24 06/01/24 06/02/24 14:59 22:59 06:59 Intake Total 100 ml 455.5 ml 450.3 ml Output Total 1350 ml 1350 ml Balance 100 ml -894.5 ml -899.7 ml medications Current Medications Medications Dose Ordered Sig/Yousif Route Start Time Stop Time Status Last Admin Dose Admin Midazolam HCl 50 ml @ 1 mls/hr Q24H IV 05/25/24 06:30 05/29/24 09:11 5 MLS/HR Aspirin 81 mg DAILY NG 05/26/24 10:00 06/01/24 10:45 81 MG Atorvastatin Calcium 40 mg HS NG 05/25/24 22:00 06/01/24 22:05 40 MG Ondansetron HCl 4 mg Q4HP PRN IV 05/25/24 10:45 Nitroglycerin 0.4 mg Q5MINP PRN SL 05/25/24 10:45 Albuterol 2.5 mg Q4HR NEB 05/25/24 14:00 06/02/24 10:13 2.5 MG Ipratropium [place] 0.5 mg Q4HR NEB 05/25/24 14:00 06/02/24 10:13 0.5 MG Phenylephrine HCl 250 ml @ 30 mls/hr Q8H20M IV 05/25/24 11:15 05/26/24 05:04 67.5 MLS/HR Fentanyl Citrate 250 ml @ 2.5 mls/hr Q24H IV 05/25/24 19:30 06/01/24 20:28 2.5 MLS/HR Ibuprofen 400 mg Q4HP PRN GT 05/26/24 01:15 05/26/24 01:42 400 MG Norepinephrine Bitartrate 32 mg/ Sodium Chloride 250 ml @ 0.938 mls/ hr Q24H IV 05/26/24 16:30 05/26/24 16:56 0.938 MLS/HR Cefepime HCl 0.5 gm/Dextrose 50 ml @ 12.5 mls/hr Q24H IV 05/29/24 18:00 06/01/24 17:36 12.5 MLS/HR Enteral Nutritional Formula 1,000 ml 30ML/HR GT 05/29/24 09:45 Heparin Sodium (Porcine) 5,000 units Q8HR SC 05/29/24 22:00 06/02/24 05:22 5,000 UNITS Dexmedetomidine HCl 400 mcg/ Dextrose 100 ml @ 8.18 mls/hr [id number] IV 05/29/24 14:15 06/02/24 04:50 8.18 MLS/HR Hydralazine HCl 10 mg Q6HP PRN IV 05/29/24 16:30 06/02/24 07:08 10 MG Pantoprazole Sodium 40 mg DAILY IV 05/30/24 10:00 06/01/24 10:44 40 MG Fluconazole 100 ml @ 100 mls/hr DAILY IV 05/30/24 10:00 06/01/24 10:45 100 MLS/HR Bumetanide 2 mg BIDD IV 05/30/24 18:00 06/02/24 05:01 2 MG Epoetin Rafael-epbx 10,000 unit MWF SC 05/31/24 21:00 05/31/24 22:33 10,000 UNIT Dexamethasone Sodium Phosphate 4 mg Q8HR IV 06/01/24 16:30 06/02/24 05:00 4 MG Iron Sucrose 110 ml @ 110 mls/hr DAILY@1200 IV 06/01/24 17:57 06/05/24 12:59 Calcium Acetate 1,334 mg Q8HR GT 06/02/24 14:00 Dexamethasone Sodium Phosphate 4 mg Q8HR IV 06/02/24 14:00 Examination: GENERAL:Abnormal, LUNGS:Abnormal, ABDOMEN:Abnormal laboratory and microbiology Laboratory Tests 06/02/24 03:20 Test 06/02/24 03:20 Range/Units Serum Glucose 142 H 74-106 mg/dL Microbiology Date/Time Source Procedure Growth Status 05/27/24 08:50 Nose MRSA Screen - Final Complete 05/25/24 08:30 Urine - [place] Urine Culture - Final Complete 05/25/24 08:24 Blood Blood Culture - Final Streptococcus pneumoniae Complete 05/25/24 06:50 Sputum Gram Stain - Final Complete 05/25/24 06:50 Respiratory Culture - Final Presumptive Tara albicans Complete Problem List/Assessment/Plan Problem List/Assessment/Plan Acute kidney injury likely ATN Unknown baseline septic shock Gram + bacteremia Morbid obesity Strept PNA Ventilator-dependent hypoxic respiratory failure HD treatment today monitor fluid balances and ABX Plan discussed with: Other My Orders My Orders Orders - TOMY VALVERDE MD Procedure Category Date Status Time Hemodialysis Orders ORDERS 06/02/24 Transmitted 04:00 Iron Sucrose Complex PHA 06/01/24 In Process (Venofer) 17:57 Hemodialysis Orders ORDERS 06/02/24 Transmitted 09:17 Basic Metabolic Panel LAB 06/03/24 Verified 04:00 Calcium Acetate PHA 06/02/24 In Process Capsule (Phoslo 14:00 Acute Hepatitis Panel LAB 06/02/24 In Process 09:40 Dietary Evaluation Review Comments: 1) If GI is accessible consider Jevity 1.2 @ 70ml/hr x 24hr continuous feed goal rate as tolerated 2) If pt remains NPO >7 days consider TPN to meet at least 75% of estimated needs 3) Advance pt diet when medically feasible to a 2gm Sodium diet modified per ESTIMATOR PRINTING recommendations 4) Continue current plan of care Expected Outcomes/Goals: 1) Pt to receive nutrition support within 7 days of NPO status 2) Pt diet to advance 3) F/U in 2-3 days TOMY VALVERDE MD Jun 02, 2024 14:35
[2024-06-02] MEDS: DexAMETHasone SOD PHOS 4 MG/1ML SDV INJ IV SCH (15:39)
[2024-06-02] MEDS: CALCIUM ACETATE 667 MG CAP GT SCH (15:40)
--- NOTE | 2024-06-02 20:48 | DVHINCON2 ---
Date of service: Jun 02, 2024 Referring Physician Derian Reason for Consultation ALOC,? Encephalopathy History of Present Illness Ms. Pandya is a 53 years old right-handed female with a history of morbid obesity, hypertension, the patient was was brought to the [facility] on 05/25/24 with a chief company of altered mental status, respiratory distress. At this, she was sedated, intubated, the history is obtained from her son at [phone], chart review and talking to his nurse According to her son, the patient was mentally physically normal until a few days before the admission where the patient becomes sick, where she had problem with breathing, however her son claimed the patient was mentally normal. In the emergency room, the patient was noted to have obvious respiratory failure and she was intubated soon after arrived the ER In the hospital, the patient was found to have pneumonia, sepsis, septic shock, metabolic acidosis, lactic acidosis, acute on chronic kidney failure, heart attack Urine culture, 05/25/2024: Negative Blood culture, 05/25/2024: Streptococcus pneumoniae UDS, 05/25/2024: Negative Urinalysis, 05/25/2024: WBC: 1, urine leukocyte esterase: Negative ABG, 05/25/2024: Metabolic acidosis, hypoxia, 05/26/2024: Metabolic acidosis, hypoxia, 05/27/24: Metabolic acidosis, hypoxia WBC/HB/PLT/MCV, 06/02/2024: 22.4/9/342/89.4 BUN/CR, 05/26/2024: 62/7.01 06/02/2024: 123/6.59 HGB A1c, 05/25/2024: 5.6 Lactic acid, 05/25/2024: 3.6, 4.6, 4.2, 05/26/2024: 3.6 Troponin one high sensitivity, 05/25/2024: 1060, 1354, 1262 TBI/AST/ALT/AP, 05/26/2024: 2/246/167/98 TG/HDL/LDL/HDL, 05/25/2024: 192/98/40/8 Vitamin B12, 06/02/2024: 836 TSH, 05/25/2024: 0.57 Chest x-ray, 05/25/2024: 1. Distal tip of the endotracheal tube is approximately 5.5 cm above the level of the nik. 2. Poorly visualized enteric tube at its distal aspect. Appears to reach the gastroesophageal junction, although not visualized distal to this point. Correlate with clinical findings. 3. Bilateral airspace opacities and interstitial opacities, may be due to multifocal pneumonia or pulmonary edema in the appropriate clinical setting CT head, 05/25/2024: No gross acute intracranial process Past Medical History Hypertension, obesity Past Surgical History None Family History: Hypertension G8 MOTHER G8 FATHER Family History Hypertension Social History She was tobacco and marijuana smoke, no history of alcohol or recreational substance abuse Allergies: Coded Allergies: UNOBTAINABLE (Unverified , 05/25/24) Pt unresponsive Current Medications Current Medications Medications (Trade) Dose Ordered Sig/Yousif Route PRN Reason Start Time Stop Time Status Last Admin Calcium Acetate (Phoslo Capsule) 1,334 mg Q8HR GT 06/02/24 14:00 06/02/24 15:40 Dexamethasone Sodium Phosphate (Decadron Injection) 4 mg Q8HR IV 06/02/24 14:00 06/02/24 15:39 Metoprolol Succinate (Toprol Xl) 25 mg DAILY PO 06/03/24 10:00 Review of Systems As above, the other systems are negative Vital Signs Vital Signs Date Time Temp Pulse Resp B/P (MAP) Pulse Ox O2 Delivery O2 Flow Rate FiO2 06/02/24 18:30 83 21 147/73 (97) 94 100/74 (83) 06/02/24 18:01 90 06/02/24 18:00 Mechanical Ventilator+ 06/02/24 16:00 97.3 97.3 Physical Exam The patient is well-nourished and well-developed with no distress. The patient is intubated HEENT: Normocephalic, neck supple, no carotid bruits Lungs: Clear to auscultation Cardiovascular: Regular rate and region, S1, S2, no murmurs Abdomen: Soft, nontender, normal bowel sounds MENTAL STATUS: Responds to light painful stimuli CRANIAL NERVES: Pupils are equal, round and reactive.There are corneal reflexes and conjugated eye movement. No signs of facial weakness. There are gagging or coughing reflexes SENSATION: Okay to painful stimuli MOTOR: Normal tone in the upper and lower extremity. Normal muscle bulk. No fasciculations. No spontaneous movement. REFLEXES: Deep tendon reflexes are symmetrical. No pathological reflexes. CEREBELLAR/COORDINATION: Deferred GAIT/STATION: deferred. Labs/Diagnostic Data Labs Test 06/02/24 13:17 06/02/24 07:50 06/02/24 03:20 06/01/24 04:00 Range/Units Ammonia < 10 L 11-32 umol/L Vitamin B12 Level 836 211-911 pg/mL Blood Gas Specimen Type Arterial Blood Gas Sample Site Right radial Blood Gas Patient Temperature 37.0 Arterial Blood Date Drawn [id number] Arterial Blood pH 7.482 H 7.350-7.450 Arterial Blood Partial Pressure CO2 30.1 L 32.0-45.0 mmHg Arterial Blood Partial Pressure O2 66.3 L 83.0-108.0 mmHg Arterial Blood HCO3 22.0 21.0-28.0 mmol/L Arterial Blood Oxygen Saturation 90.6 L 94.0-98.0 % Arterial Blood Base Excess -0.7 -2.0-3.0 mmol/L Arterial Blood Oxyhemoglobin 90.2 L 94.0-98.0 % Arterial Blood Carboxyhemoglobin 0.3 L 0.5-1.5 % Arterial Blood Methemoglobin 0.1 0.0-1.5 % Joni Test Modified Blood Gas Total Hemoglobin 11.00 L 12.0-16.0 g/dL Blood Gas Set Respiration Rate 22.0 Blood Gas Modality Vent - ac Blood Gas Spontaneous Rate 22 FiO2 % 35.0 Blood Gas Tidal Volume 600.0 Blood Gas Inspiratory Pressure 30.0 Blood Gas PEEP or CPAP 6.0 Bl Gas Inspiratory/Expiratory Ratio 1:1.1 Specimen Drawn By nanette barraza White Blood Count 22.4 H 4.4-10.8 10^3/uL Red Blood Count 3.06 L 4.0-5.20 10^6/uL Hemoglobin 9.0 L 12.2-16.2 g/dL Hematocrit 27.3 L 36.0-46.0 % Mean Corpuscular Volume 89.4 80.0-100.0 fL Mean Corpuscular Hemoglobin 29.3 28.0-32.0 pg Mean Corpuscular Hemoglobin Concent 32.7 32.0-36.0 g/dL Red Cell Distribution Width 15.2 H 11.8-14.3 % Platelet Count 342 140-450 10^3/uL Mean Platelet Volume 8.0 6.9-10.8 fL Neutrophils (%) (Auto) 94.3 H 37.0-80.0 % Lymphocytes (%) (Auto) 2.5 L 10.0-50.0 % Monocytes (%) (Auto) 2.9 0.0-12.0 % Eosinophils (%) (Auto) 0.1 0.0-7.0 % Basophils (%) (Auto) 0.2 0.0-2.0 % Neutrophils # (Auto) 21.1 H 1.6-8.6 10 ^3/uL Lymphocytes # (Auto) 0.6 0.4-5.4 10 ^3/uL Monocytes # (Auto) 0.7 0-1.3 10 ^3/uL Eosinophils # (Auto) 0 0-0.8 10 ^3/uL Basophils # (Auto) 0 0-0.2 10 ^3/uL Nucleated Red Blood Cells 0.0 % Sodium Level 142 136-145 mmol/L Potassium Level 4.7 3.5-5.1 mmol/L Chloride Level 105 98-107 mmol/L Carbon Dioxide Level 24 20-31 mmol/L Anion Gap 13 5-15 Blood Urea Nitrogen 123 #*H 9-23 mg/dL Creatinine 6.59 H 0.550-1.02 mg/dL Glomerular Filtration Rate Calc 7 >90 mL/min BUN/Creatinine Ratio 18.7 10.0-20.0 Serum Glucose 142 H 74-106 mg/dL Calcium Level 9.2 8.7-10.4 mg/dL Phosphorus Level 10.9 H 2.4-5.1 mg/dL Magnesium Level 2.6 1.6-2.6 mg/dL Iron Level 24 L 50-170 ug/dL Total Iron Binding Capacity 279 250-425 ug/dL Percent Iron Saturation 8.6 L 15-50 % Ferritin 355.1 H 10-291 ng/mL Test 05/28/24 03:43 05/28/24 01:30 05/27/24 09:51 05/27/24 03:35 Range/Units Differential Total Cells Counted 100.0 100 Neutrophils % (Manual) 90 H 37.0-80.0 Band Neutrophils % (Manual) 1 Lymphocytes % (Manual) 4 L 10.0-50.0 Monocytes % (Manual) 5 0-12 Eosinophils % (Manual) 0 0-7 Basophils % (Manual) 0 0.0-2.0 Metamyelocytes % (manual) 0 Myelocytes % (Manual) 0 Promyelocytes % (Manual) 0 Blast Cells % (Manual) 0 Reactive Lymphocytes 0 Smudge Cells 1 /100 WBC Platelet Estimate Adequate Urine Creatinine 248.25 H 30.0-125.0 mg/dL Urine Sodium 27 L 40-220 mmol/L Urine Total Protein 293.2 H 1-14 mg/dL Blood Gas Critical Value Read Back Yes Blood Gas Notified Whom Roberto harvey Blood Gas Notified Time [id number] Blood Gas Notified By Megha zhou Hypochromasia (manual) Slight Anisocytosis (manual) Slight Random Vancomycin Level 22.4 H 5-10 ug/mL Test 05/26/24 11:00 05/26/24 06:17 05/26/24 03:35 05/25/24 22:40 Range/Units Uric Acid 10.9 H 3.1-7.8 mg/dL Lactic Acid Level 3.6 *H 0.4-2.0 mmol/L Large Platelets Few Total Bilirubin 2.0 H 0.2-1.0 mg/dL Aspartate Amino Transferase (AST) 246 H 13-40 U/L Alanine Aminotransferase (ALT) 167 H 7-40 U/L Alkaline Phosphatase 98 46-116 U/L Total Protein 6.6 5.7-8.2 g/dL Albumin 3.1 L 3.2-4.8 g/dL Triglycerides Level 164 H < 150 mg/dL Cholesterol Level 87 < 200 mg/dL LDL Cholesterol 23 < 100 mg/dL HDL Cholesterol 6 L 40-59 mg/dL Lipase 47 12-53 U/L Troponin I High Sensitivity 1262 *H </=34 ng/L Test 05/25/24 11:35 05/25/24 08:30 05/25/24 08:24 05/25/24 06:40 Range/Units Thyroid Stimulating Hormone (TSH) 0.57 0.55-4.78 uIU/mL Urine Color Yellow Yellow Urine Clarity Clear Clear Urine pH 7.5 5.0-9.0 Urine Specific [place] 1.013 1.001-1.035 Urine Protein 2+ H Negative Urine Ketones Negative Negative Urine Blood Negative Negative /uL Urine Nitrite Negative Negative Urine Bilirubin Negative Negative Urine Urobilinogen 8 H Negative mg/dL Urine Leukocyte Esterase Negative Negative /uL Urine RBC 5 0 - 4 /hpf Urine WBC 1 0 - 5 /hpf Urine Squamous Epithelial Cells Few <5 /hpf Urine Bacteria None seen None Seen /hpf Urine Glucose Normal Normal mg/dL Urine Opiates Screen Neg NEGATIVE Urine Fentanyl Screen Neg NEGATIVE Urine Barbiturates Screen Neg NEGATIVE Urine Phencyclidine Screen Neg NEGATIVE Urine Amphetamines Screen Neg NEGATIVE Urine Benzodiazepines Screen Neg NEGATIVE Urine Cocaine Screen Neg NEGATIVE Urine Cannabinoids Screen Neg NEGATIVE Hemoglobin A1c 5.6 <5.7 % A1C B-Type Natriuretic Peptide 1384.04 0-100 pg/mL Influenza Type A Antigen Negative Negative Influenza Type B Antigen Negative Negative SARS-CoV-2 Antigen (Rapid) Negative NEGATIVE Microbiology Date/Time Source Procedure Growth Status 05/27/24 08:50 Nose MRSA Screen - Final Complete 05/25/24 08:30 Urine - [place] Urine Culture - Final Complete 05/25/24 08:24 Blood Blood Culture - Final Streptococcus pneumoniae Complete 05/25/24 06:50 Sputum Gram Stain - Final Complete 05/25/24 06:50 Respiratory Culture - Final Presumptive Tara albicans Complete Assessment Altered mental status/Coma Hypoxic encephalopathy secondary to respiratory failure Metabolic encephalopathy secondary to acidosis, sepsis, septic shock, kidney failure Heart attack Pneumonia Sepsis, septic shock Acute on chronic kidney failure Plan/Recommendation Monitoring Supportive treatment ICU care Follow-up labs EEG Consider follow up CT scan there Stabilize vitals Respiratory support/vent management Oxygen IV antibiotics GI prophylaxis/Protonix DVT prophylaxis/heparin Nephrology on case Pulmonology on case More recommendation per clinical course Progress: Guarded This medical document was created using an electronic medical record system with [email or web address] dictation system. Although this document has been carefully reviewed, there may still be some phonetic and typographical errors. These areas are purely typographical due to imperfections of the software programs, and do not reflect any compromise in the patient's medical care. Plan discussed with: Keith Rivera PILAR HOOD MD Jun 02, 2024 20:48
[2024-06-02] MEDS: Nepro With Carb Steady 1 Liter Bottle GT SCH (21:00)
--- NOTE | 2024-06-02 22:07 | DVHPN2 ---
Progress Note - Dictate Date Seen: Jun 02, 2024 Medical Necessity Reason Pt with a Central, PICC or Fol: Yes The following are medically ne: Central Line, Putnam Catheter Reason for putnam catheter: Strict I&O Subjective Patient seen and examined at bedside. Sedated, intubated on mechanical ventilator. Overnight events reviewed. vital signs Vital Sign Date Time Temp Pulse Resp B/P (MAP) Pulse Ox O2 Delivery O2 Flow Rate FiO2 06/02/24 21:50 84 22 214/98 (136) 97 70 06/02/24 18:00 Mechanical Ventilator+ 06/02/24 16:00 97.3 97.3 Total Intake and Output 06/01/24 06/01/24 06/02/24 15:00 23:00 07:00 Intake Total 100 ml 460.5 ml 447.8 ml Output Total 1350 ml 1350 ml Balance 100 ml -889.5 ml -902.2 ml medications Current Medications Medications Dose Ordered Sig/Yousif Route Start Time Stop Time Status Last Admin Dose Admin Midazolam HCl 50 ml @ 1 mls/hr Q24H IV 05/25/24 06:30 05/29/24 09:11 5 MLS/HR Aspirin 81 mg DAILY NG 05/26/24 10:00 06/01/24 10:45 81 MG Atorvastatin Calcium 40 mg HS NG 05/25/24 22:00 06/02/24 20:59 40 MG Ondansetron HCl 4 mg Q4HP PRN IV 05/25/24 10:45 Nitroglycerin 0.4 mg Q5MINP PRN SL 05/25/24 10:45 Albuterol 2.5 mg Q4HR NEB 05/25/24 14:00 06/02/24 21:50 2.5 MG Ipratropium [place] 0.5 mg Q4HR NEB 05/25/24 14:00 06/02/24 21:50 0.5 MG Phenylephrine HCl 250 ml @ 30 mls/hr Q8H20M IV 05/25/24 11:15 05/26/24 05:04 67.5 MLS/HR Fentanyl Citrate 250 ml @ 2.5 mls/hr Q24H IV 05/25/24 19:30 06/01/24 20:28 2.5 MLS/HR Ibuprofen 400 mg Q4HP PRN GT 05/26/24 01:15 05/26/24 01:42 400 MG Norepinephrine Bitartrate 32 mg/ Sodium Chloride 250 ml @ 0.938 mls/ hr Q24H IV 05/26/24 16:30 05/26/24 16:56 0.938 MLS/HR Cefepime HCl 0.5 gm/Dextrose 50 ml @ 12.5 mls/hr Q24H IV 05/29/24 18:00 06/02/24 18:15 12.5 MLS/HR Enteral Nutritional Formula 1,000 ml 30ML/HR GT 05/29/24 09:45 06/02/24 21:00 1,000 ML Heparin Sodium (Porcine) 5,000 units Q8HR SC 05/29/24 22:00 06/02/24 21:01 5,000 UNITS Dexmedetomidine HCl 400 mcg/ Dextrose 100 ml @ 8.18 mls/hr [id number] IV 05/29/24 14:15 06/02/24 04:50 8.18 MLS/HR Hydralazine HCl 10 mg Q6HP PRN IV 05/29/24 16:30 06/02/24 07:08 10 MG Pantoprazole Sodium 40 mg DAILY IV 05/30/24 10:00 06/01/24 10:44 40 MG Fluconazole 100 ml @ 100 mls/hr DAILY IV 05/30/24 10:00 06/01/24 10:45 100 MLS/HR Bumetanide 2 mg BIDD IV 05/30/24 18:00 06/02/24 18:15 2 MG Epoetin Rafael-epbx 10,000 unit MWF SC 05/31/24 21:00 05/31/24 22:33 10,000 UNIT Iron Sucrose 110 ml @ 110 mls/hr DAILY@1200 IV 06/01/24 17:57 06/05/24 12:59 Calcium Acetate 1,334 mg Q8HR GT 06/02/24 14:00 06/02/24 20:59 1,334 MG Dexamethasone Sodium Phosphate 4 mg Q8HR IV 06/02/24 14:00 06/02/24 20:59 4 MG Metoprolol Succinate 25 mg DAILY PO 06/03/24 10:00 objective Gen.: Patient lying in bed in medical ICU. Sedated, intubated on mechanical ventilator. Head: Normocephalic, atraumatic. Eyes: PERRLA. Ears: Normal external anatomy. Throat: Endotracheal tube and orogastric tube in place. Neck: Supple, trachea midline. Chest: Transmitted breath sounds bilaterally. Decreased air entry bilaterally. No wheezing. Bibasilar crackles. Cardiovascular: Positive S1, positive S2. Regular rate and rhythm. Abdomen: Positive bowel sounds in all 4 quadrants. Soft, nontender, nondistended. : Putnam in place. Normal external genitalia. Rectal: Deferred. Skin: Warm, dry. Intact. Extremities: 2+ radial pulses bilaterally. No lower extremity edema. Neuro: Sedated laboratory and microbiology Laboratory Tests 06/02/24 03:20 Test 06/02/24 03:20 Range/Units Serum Glucose 142 H 74-106 mg/dL Assessment/Plan Impression: Acute hypoxic respiratory failure On mechanical ventilator Septic shock Elevated troponin Acute kidney injury Lactic acidosis Metabolic acidosis Multifocal pneumonia, likely gram negative Pulmonary edema AE COPD Events: Remains on vent support On AC mode; RR 22, VT 600, PEEP 6 -->10, FiO2 35 -->90% Increased FIO2 and PEEP requirements Sedated on Fentanyl Continue steroids/Benadryl/Pepcid for angioedema. Status post hemodialysis Nephrology recs appreciated. ABG reviewed, notable for alkalemia CXR demonstrates multifocal airspace disease, unchanged. Devices in place. Continue antibiotics Tube feeds for nutritional support Wound care Diurese w/ Bumex Monitor renal function Hemodialysis per Nephrology Echo showed EF of 40%. Awaiting for mentation to improve. Labs and imaging reviewed. Rest of plan as noted below. Plan: s/p intubation on mechanical ventilator. On AC mode; RR 22, VT 600, PEEP 10, FiO2 90% Titrate FIO2 to keep O2 saturation above 90%. VAP bundle. Daily ABG and CXR while intubated Sedated on Fentanyl Off pressors, hemodynamically stable. Continue bronchodilators. Steroids Continue antibiotics. F/u cultures. Pressors if necessary to maintain a mean arterial blood pressure greater than 65 mmHg. Cardiology recs appreciated. Monitor renal function Monitor electrolytes. Supplement as necessary. Monitor ins and outs. Nephrology recs appreciated. IV fluid hydration GI prophylaxis. DVT prophylaxis. Prognosis: Poor given patient's multiple co-morbidities. Condition: Critical Rest of plan per hospitalist and other consultants. A total of 35 minutes of critical care time was spent reviewing the patient record, examining the patient, making a diagnostic and therapeutic plan, discussing this plan with the medical personnel, following up on diagnostic studies and following the patient for clinical stability excluding any and all procedures. At least 50% of this time was spent in direct, [id number] contact. Thank you, MIRNA Stratton, for allowing me to participate in this patient's care. Further recommendations will depend on the patient's clinical course. Please do not hesitate to contact me if you have any questions or concerns. This medical document was created using an electronic medical record system with [employer] dictation system. Although these documentations are being carefully reviewed, there may still be some phonetic and typographical changes. The errors are purely typographical, due to imperfection on the software program, and do not reflect any compromise in the patient's medical care. Dietary Evaluation Review Comments: 1) If GI is accessible consider Jevity 1.2 @ 70ml/hr x 24hr continuous feed goal rate as tolerated 2) If pt remains NPO >7 days consider TPN to meet at least 75% of estimated needs 3) Advance pt diet when medically feasible to a 2gm Sodium diet modified per [employer] recommendations 4) Continue current plan of care Expected Outcomes/Goals: 1) Pt to receive nutrition support within 7 days of NPO status 2) Pt diet to advance 3) F/U in 2-3 days Plan discussed with: Other (RN Ty) Critical Care Time(min): 35 MELODY ELIZABETH MD Jun 02, 2024 22:07
[2024-06-03] VITALS (106 sets, daily range): BP systolic 105–199; BP diastolic 60–144; PULSE 64–119; RESP 14–32; TEMP 96.8–98.2; O2SAT 87–98
[2024-06-03 04:14] LABS: Hematocrit 27.3 % (36.0-46.0); Hemoglobin 8.8 g/dL (12.2-16.2); Mean Corpuscular Hemoglobin 29.2 pg (28.0-32.0); Mean Corpuscular Hgb Conc. 32.4 g/dL (32.0-36.0); Mean Corpuscular Volume 90.3 fL (80.0-100.0); Platelet Count (auto) 318 10^3/uL (140-450); Red Blood Cells 3.02 10^6/uL (4.0-5.20); Red Cell Distribution Width 15.4 % (11.8-14.3); White Blood Cell 21.9 10^3/uL (4.4-10.8)
[2024-06-03 04:26] LABS: Anion Gap 13 (5-15); Carbon Dioxide 29 mmol/L (20-31); Chloride 100 mmol/L (98-107); Sodium 142 mmol/L (136-145)
[2024-06-03 04:30] LABS: Band Neutrophils % (manual) 0; Basophils % (manual) 0 (0.0-2.0); Blast Cells 0; Eosinophils % (manual) 0 (0-7); Metamyelocytes % 0; Myelocytes % 0; Promyelocytes % 0; Reactive Lymphocytes 0
[2024-06-03 04:32] LABS: BUN/Creatinine Ratio 18.5 (10.0-20.0)
[2024-06-03 04:58] LABS: Glucose 160 mg/dL (74-106)
[2024-06-03 05:01] LABS: Blood Urea Nitrogen 106 mg/dL (9-23)
[2024-06-03 07:03] LABS: Lymphocytes % (manual) 9 (10.0-50.0); Monocytes % (manual) 3 (0-12); Platelet Estimate Adequate
[2024-06-03 07:11] LABS: Base Excess 5.9 mmol/L (-2.0-3.0)
--- NOTE | 2024-06-03 09:10 | DVHPN2 ---
Subjective Patient still encephalopathic. Reviewed: Care Plan, H&P, Labs, Medications, Previous Orders Changes from previous H/P or p: No Changes General: Per HPI Respiratory: Shortness of breath Objective Vitals Vital Signs Date Time Temp Pulse Resp B/P (MAP) Pulse Ox O2 Delivery O2 Flow Rate FiO2 06/03/24 08:45 97.9 91 19 177/91 (119) 93 208.2 148/143 (145) 06/03/24 08:00 Mechanical Ventilator+ 90 90 Intake/Output Intake and Output 06/03/24 07:00 Intake Total 800.5 ml Output Total 1125 ml Balance -324.5 ml Intake Oral 90 ml IV Total 177.5 ml Tube Feeding 533 ml Output Urine Total 1125 ml General Appearance: moderate distress, Other (Patient intubated and chemically sedated.) HEENT: Atraumatic, PERRLA, Other (Patient with tongue swelling.) Lungs: Clear to auscultation, Normal air movement, Other (Mechanical ventilation) Cardiovascular: Normal S1, Normal S2 Abdomen: Normal bowel sounds, Soft, No tenderness, No hepatospenomegaly Musculoskeletal: Normal sensory function, Normal motor function Extremities: No clubbing, No cyanosis, No edema, Normal pulses, No tenderness/swelling Neuro: Normal gait, Normal speech, Strength at 5/5 X4 ext Skin: Dry, Intact Psych/Mental Status: Mental status NL, Mood NL Medications Current Medications Medications Dose Ordered Sig/Yousif Route Start Time Stop Time Status Last Admin Dose Admin Midazolam HCl 50 ml @ 1 mls/hr Q24H IV 05/25/24 06:30 05/29/24 09:11 5 MLS/HR Aspirin 81 mg DAILY NG 05/26/24 10:00 06/01/24 10:45 81 MG Atorvastatin Calcium 40 mg HS NG 05/25/24 22:00 06/02/24 20:59 40 MG Ondansetron HCl 4 mg Q4HP PRN IV 05/25/24 10:45 Nitroglycerin 0.4 mg Q5MINP PRN SL 05/25/24 10:45 Albuterol 2.5 mg Q4HR NEB 05/25/24 14:00 06/03/24 07:21 2.5 MG Ipratropium [place] 0.5 mg Q4HR NEB 05/25/24 14:00 06/03/24 07:21 0.5 MG Phenylephrine HCl 250 ml @ 30 mls/hr Q8H20M IV 05/25/24 11:15 05/26/24 05:04 67.5 MLS/HR Fentanyl Citrate 250 ml @ 2.5 mls/hr Q24H IV 05/25/24 19:30 06/01/24 20:28 2.5 MLS/HR Ibuprofen 400 mg Q4HP PRN GT 05/26/24 01:15 05/26/24 01:42 400 MG Norepinephrine Bitartrate 32 mg/ Sodium Chloride 250 ml @ 0.938 mls/ hr Q24H IV 05/26/24 16:30 05/26/24 16:56 0.938 MLS/HR Cefepime HCl 0.5 gm/Dextrose 50 ml @ 12.5 mls/hr Q24H IV 05/29/24 18:00 06/02/24 18:15 12.5 MLS/HR Enteral Nutritional Formula 1,000 ml 30ML/HR GT 05/29/24 09:45 06/02/24 21:00 1,000 ML Heparin Sodium (Porcine) 5,000 units Q8HR SC 05/29/24 22:00 06/03/24 05:48 5,000 UNITS Dexmedetomidine HCl 400 mcg/ Dextrose 100 ml @ 8.18 mls/hr [id number] IV 05/29/24 14:15 06/02/24 04:50 8.18 MLS/HR Hydralazine HCl 10 mg Q6HP PRN IV 05/29/24 16:30 06/02/24 07:08 10 MG Pantoprazole Sodium 40 mg DAILY IV 05/30/24 10:00 06/01/24 10:44 40 MG Fluconazole 100 ml @ 100 mls/hr DAILY IV 05/30/24 10:00 06/01/24 10:45 100 MLS/HR Bumetanide 2 mg BIDD IV 05/30/24 18:00 06/03/24 05:48 2 MG Epoetin Rafael-epbx 10,000 unit MWF SC 05/31/24 21:00 05/31/24 22:33 10,000 UNIT Iron Sucrose 110 ml @ 110 mls/hr DAILY@1200 IV 06/01/24 17:57 06/05/24 12:59 Calcium Acetate 1,334 mg Q8HR GT 06/02/24 14:00 06/03/24 05:47 1,334 MG Dexamethasone Sodium Phosphate 4 mg Q8HR IV 06/02/24 14:00 06/03/24 05:47 4 MG Nicardipine HCl 250 ml @ 50 mls/hr Q5H IV 06/03/24 08:00 Laboratory Results Laboratory Tests 06/03/24 03:57 Chemistry Test 06/03/24 03:57 Calcium Level 10.0 mg/dL (8.7-10.4) Urinalysis Test 05/25/24 08:30 05/28/24 01:30 Urine Color Yellow (Yellow) Urine Clarity Clear (Clear) Urine pH 7.5 (5.0-9.0) Urine Specific [place] 1.013 (1.001-1.035) Urine Protein 2+ (Negative) H Urine Ketones Negative (Negative) Urine Blood Negative /uL (Negative) Urine Nitrite Negative (Negative) Urine Bilirubin Negative (Negative) Urine Urobilinogen 8 mg/dL (Negative) H Urine Leukocyte Esterase Negative /uL (Negative) Urine RBC 5 /hpf (0 - 4) Urine WBC 1 /hpf (0 - 5) Urine Squamous Epithelial Cells Few /hpf (<5) Urine Bacteria None seen /hpf (None Seen) Urine Glucose Normal mg/dL (Normal) Urine Creatinine 248.25 mg/dL (30.0-125.0) H Urine Sodium 27 mmol/L (40-220) L Urine Total Protein 293.2 mg/dL (1-14) H Blood Gas Results Test 06/03/24 06:55 Arterial Blood pH 7.530 (7.350-7.450) FiO2 % 45.0 Microbiology Microbiology Date/Time Source Procedure Growth Status 05/27/24 08:50 Nose MRSA Screen - Final Complete 05/25/24 08:30 Urine - [place] Urine Culture - Final Complete 05/25/24 08:24 Blood Blood Culture - Final Streptococcus pneumoniae Complete 05/25/24 06:50 Sputum Gram Stain - Final Complete 05/25/24 06:50 Respiratory Culture - Final Presumptive Tara albicans Complete Labs and/or images reviewed: Labs reviewed by me, Image(s) reviewed by me Assessment/Plan Assessment/Plan Impression: -severe sepsis with shock , Streptococcus pneumoniae -probable community-acquired pneumonia with Gram-positive cocci -sepsis with Gram-positive cocci -acute hypoxic respiratory failure with mechanical ventilation -obesity -acute kidney injury, anuric -NSTEMI, probably type 2 -hypoalbuminemia -? Angioedema Plan: Events: Patient has increased O2 requirements at 45% and PEEP of 10mmHg. -patient continues to be off vasopressor therapy, hemodynamically stable, white blood cell count improving, plans for spontaneous breathing trial once patient awakens -bronchodilators -continue cefepime and Diflucan -continue current ventilator settings. Patient now on 35% FiO2 -nephrology consultation: HD has been initiated -cardiology consultation: Medical management at this time. Continue statin and ASA -PUD, DVT prophylaxis -repeat labs, chest x-ray, ABG in a.m.. Critical care time spent with patient discussing and formulating plan of care: 90 minutes. This does not include time spent performing procedures. This medical document was created using an electronic medical record system with [employer] dictation system. Although this document has been carefully reviewed, there may still be some phonetic and typographical errors. These areas are purely typographical due to imperfections of the software programs, and do not reflect any compromise in the patient's medical care. Plan discussed with: Patient, Other (RN) My Orders Orders - OMAR PARK NP Procedure Category Date Status Time Dexamethasone PHA 06/02/24 In Process Injection (Decadron 14:00 * Neurology Consult CONS 06/02/24 Transmitted 09:42 Nicardipine PHA 06/03/24 In Process 25mg/250ml Bag Kit 08:00 Date of Service: Jun 03, 2024 Billing Provider: OMAR PARK NP Common Visit Codes: [id number] CARE 30-74 MIN OMAR PARK NP Jun 03, 2024 09:10
[2024-06-03] MEDS ORDERED: METOPROLOL SUCCINATE XL 50 MG TAB PO SCH (10:00)
[2024-06-03 10:21] LABS: Hepatitis A Ab IgM Negative; Hepatitis B Core IgM Negative (Negative); Hepatitis B Surface Antigen Negative (Negative); Hepatitis C Antibody Negative (Negative)
--- NOTE | 2024-06-03 11:01 | DVHPN2 ---
Progress Note - Dictate Date Seen: Jun 03, 2024 Medical Necessity Reason Pt with a Central, PICC or Fol: Yes The following are medically ne: Central Line, Putnam Catheter Reason for putnam catheter: Strict I&O Subjective Ms. Pandya is a 53 years old right-handed female with a history of morbid obesity, hypertension, the patient was was brought to the [facility] on 05/25/24 with a chief company of altered mental status, respiratory distress. I have seen and examined the patient, I have talked to her nurse, respiratory therapist has a medical staff, her in the room Her reports the patient was has been sick for two weeks prior to this admission, but he did not know what happened on the day she came to the hospital because he was out of town At this, she was sedated, intubated, the history is obtained from her son at [phone], chart review and talking to his nurse Urine culture, 05/25/2024: Negative Blood culture, 05/25/2024: Streptococcus pneumoniae UDS, 05/25/2024: Negative Urinalysis, 05/25/2024: WBC: 1, urine leukocyte esterase: Negative ABG, 05/25/2024: Metabolic acidosis, hypoxia, 05/26/2024: Metabolic acidosis, hypoxia, 05/27/24: Metabolic acidosis, hypoxia WBC/HB/PLT/MCV, 06/02/2024: 22.4/9/342/89.4 BUN/CR, 05/26/2024: 62/7.06/02/2024: 123/6.59 HGB A1c, 05/25/2024: 5.6 Lactic acid, 05/25/2024: 3.6, 4.6, 4.2, 05/26/2024: 3.6 Troponin one high sensitivity, 05/25/2024: 1060, 1354, 1262 TBI/AST/ALT/AP, 05/26/2024: 2/246/167/98 TG/HDL/LDL/HDL, 05/25/2024: 192/98/40/8 Vitamin B12, 06/02/2024: 836 TSH, 05/25/2024: 0.57 Chest x-ray, 05/25/2024: 1. Distal tip of the endotracheal tube is approximately 5.5 cm above the level of the nik. 2. Poorly visualized enteric tube at its distal aspect. Appears to reach the gastroesophageal junction, although not visualized distal to this point. Correlate with clinical findings. 3. Bilateral airspace opacities and interstitial opacities, may be due to multifocal pneumonia or pulmonary edema in the appropriate clinical setting CT head, 05/25/2024: No gross acute intracranial process vital signs Vital Sign Date Time Temp Pulse Resp B/P (MAP) Pulse Ox O2 Delivery O2 Flow Rate FiO2 06/03/24 10:08 64 22 113/106 94 50 06/03/24 10:00 Mechanical Ventilator+ 06/03/24 08:45 97.9 208.2 Total Intake and Output 06/02/24 06/02/24 06/03/24 14:59 22:59 06:59 Intake Total 37.5 ml 484.0 ml 269 ml Output Total 900 ml 225 ml Balance 37.5 ml -416.0 ml 44 ml medications Current Medications Medications Dose Ordered Sig/Yousif Route Start Time Stop Time Status Last Admin Dose Admin Midazolam HCl 50 ml @ 1 mls/hr Q24H IV 05/25/24 06:30 05/29/24 09:11 5 MLS/HR Aspirin 81 mg DAILY NG 05/26/24 10:00 06/03/24 10:14 81 MG Atorvastatin Calcium 40 mg HS NG 05/25/24 22:00 06/02/24 20:59 40 MG Ondansetron HCl 4 mg Q4HP PRN IV 05/25/24 10:45 Nitroglycerin 0.4 mg Q5MINP PRN SL 05/25/24 10:45 Albuterol 2.5 mg Q4HR NEB 05/25/24 14:00 06/03/24 09:57 2.5 MG Ipratropium [place] 0.5 mg Q4HR NEB 05/25/24 14:00 06/03/24 09:57 0.5 MG Phenylephrine HCl 250 ml @ 30 mls/hr Q8H20M IV 05/25/24 11:15 05/26/24 05:04 67.5 MLS/HR Fentanyl Citrate 250 ml @ 2.5 mls/hr Q24H IV 05/25/24 19:30 06/01/24 20:28 2.5 MLS/HR Ibuprofen 400 mg Q4HP PRN GT 05/26/24 01:15 05/26/24 01:42 400 MG Norepinephrine Bitartrate 32 mg/ Sodium Chloride 250 ml @ 0.938 mls/ hr Q24H IV 05/26/24 16:30 05/26/24 16:56 0.938 MLS/HR Cefepime HCl 0.5 gm/Dextrose 50 ml @ 12.5 mls/hr Q24H IV 05/29/24 18:00 06/02/24 18:15 12.5 MLS/HR Enteral Nutritional Formula 1,000 ml 30ML/HR GT 05/29/24 09:45 06/02/24 21:00 1,000 ML Heparin Sodium (Porcine) 5,000 units Q8HR SC 05/29/24 22:00 06/03/24 05:48 5,000 UNITS Dexmedetomidine HCl 400 mcg/ Dextrose 100 ml @ 8.18 mls/hr [id number] IV 05/29/24 14:15 06/02/24 04:50 8.18 MLS/HR Hydralazine HCl 10 mg Q6HP PRN IV 05/29/24 16:30 06/02/24 07:08 10 MG Pantoprazole Sodium 40 mg DAILY IV 05/30/24 10:00 06/03/24 10:14 40 MG Fluconazole 100 ml @ 100 mls/hr DAILY IV 05/30/24 10:00 06/03/24 10:14 100 MLS/HR Bumetanide 2 mg BIDD IV 05/30/24 18:00 06/03/24 05:48 2 MG Epoetin Rafael-epbx 10,000 unit MWF SC 05/31/24 21:00 05/31/24 22:33 10,000 UNIT Iron Sucrose 110 ml @ 110 mls/hr DAILY@1200 IV 06/01/24 17:57 06/05/24 12:59 Calcium Acetate 1,334 mg Q8HR GT 06/02/24 14:00 06/03/24 05:47 1,334 MG Dexamethasone Sodium Phosphate 4 mg Q8HR IV 06/02/24 14:00 06/03/24 05:47 4 MG Nicardipine HCl 250 ml @ 50 mls/hr Q5H IV 06/03/24 08:00 objective The patient is well-nourished and well-developed with no distress. The patient is intubated MENTAL STATUS: Subjective CRANIAL NERVES: Pupils are equal, round and reactive.There are corneal reflexes and conjugated eye movement. No signs of facial weakness. There are gagging or coughing reflexes SENSATION: Okay to painful stimuli MOTOR: Normal tone in the upper and lower extremity. Normal muscle bulk. No fasciculations. No spontaneous movement. REFLEXES: Deep tendon reflexes are symmetrical. No pathological reflexes. CEREBELLAR/COORDINATION: Deferred GAIT/STATION: deferred. laboratory and microbiology Laboratory Tests 06/03/24 03:57 Test 06/03/24 03:57 Range/Units Serum Glucose 160 H 74-106 mg/dL Problem List Altered mental status/Coma Hypoxic encephalopathy secondary to respiratory failure Metabolic encephalopathy secondary to acidosis, sepsis, septic shock, kidney failure Heart attack Pneumonia Sepsis, septic shock Acute on chronic kidney failure Assessment/Plan Monitoring Supportive treatment ICU care Follow-up labs EEG Follow up CT scan Stabilize vitals Respiratory support/vent management Oxygen IV antibiotics GI prophylaxis/Protonix DVT prophylaxis/heparin Nephrology on case Pulmonology on case More recommendation per clinical course This medical document was created using an electronic medical record system with [employer] dictation system. Although this document has been carefully reviewed, there may still be some phonetic and typographical errors. These areas are purely typographical due to imperfections of the software programs, and do not reflect any compromise in the patient's medical care Prognosis guarded Dietary Evaluation Review Comments: 1) If GI is accessible consider Jevity 1.2 @ 70ml/hr x 24hr continuous feed goal rate as tolerated 2) If pt remains NPO >7 days consider TPN to meet at least 75% of estimated needs 3) Advance pt diet when medically feasible to a 2gm Sodium diet modified per GLOBAL SALES DIRECTOR recommendations 4) Continue current plan of care Expected Outcomes/Goals: 1) Pt to receive nutrition support within 7 days of NPO status 2) Pt diet to advance 3) F/U in 2-3 days Plan discussed with: Spouse, Other Critical Care Time(min): 35 PILAR HOOD MD Jun 03, 2024 11:01
--- NOTE | 2024-06-03 12:14 | DVH ---
EXAM: CT HEAD WITHOUT CONTRAST HISTORY: Coma COMPARISON: CT HEAD WITHOUT CONTRAST on DOS: 05/30/24, CT HEAD WITHOUT CONTRAST on DOS: 05/25/24 TECHNIQUE: Axial images were obtained and reformatted in coronal and sagittal planes. All CT scans at this medical facility are performed using dose modulation techniques as appropriate t o a performed exam including the following: Automated exposure control was utilized; adjustment of th e MA and/or KV according to patient size; and use of iterative reconstruction technique. CT Dose: CTDI volume is 66.2 mGy. Dose-length product is 1326 mGy*cm FINDINGS: Supratentorial Region: No evidence for large acute territorial ischemia. There is interval developm ent of 2 subcentimeter foci of subcortical parenchymal hemorrhage in the left frontal lobe. Confluent white matter hypoattenuating foci are noted bilaterally, which typically reflect chronic microvascul ar ischemic changes. Posterior Fossa: No acute abnormality. Brainstem: Unremarkable. Sellar/Suprasellar Region: Unremarkable. Ventricles, Cisterns, Sulci: Age-appropriate. Orbits: No acute abnormality. Suggestion of exophthalmos. Paranasal Sinuses: There is opacification of the left sphenoid sinus. Mild ethmoid and right spheno id sinus mucosal thickening noted. Mastoid Air Cells: Small bilateral mastoid effusions. Vasculature: Unremarkable. Bones/Soft Tissues: No acute abnormality. Other: The patient is intubated. Moderate fluid is seen in the posterior oropharynx. IMPRESSION: 1. Interval development of 2 foci of subcortical parenchymal hemorrhage in the left frontal lobe. No mass effect or midline shift. 2. Moderate amount of fluid in the posterior nasopharynx likely related to intubation. Recommend suc tioning to prevent aspiration. 3. Small bilateral mastoid effusions. We are in the process of reaching out to the nurse or physician in charge of the patient to convey th e findings.
--- NOTE | 2024-06-03 16:13 | DVHPN2 ---
Progress Note Date Seen: Jun 03, 2024 Medical Necessity Reason Pt with a Central, PICC or Fol: Yes The following are medically ne: Central Line, Putnam Catheter Reason for putnam catheter: Strict I&O Subjective Review of Systems: RESPIRATORY:Abnormal Objective vital signs Vital Sign Date Time Temp Pulse Resp B/P (MAP) Pulse Ox O2 Delivery O2 Flow Rate FiO2 06/03/24 15:45 94 22 137/68 (91) 94 45 06/03/24 14:15 97.9 208.2 06/03/24 14:00 Mechanical Ventilator+ Total Intake and Output 06/02/24 06/02/24 06/03/24 15:00 23:00 07:00 Intake Total 40 ml 484.0 ml 276.5 ml Output Total 900 ml 225 ml Balance 40 ml -416.0 ml 51.5 ml medications Current Medications Medications Dose Ordered Sig/Yousif Route Start Time Stop Time Status Last Admin Dose Admin Midazolam HCl 50 ml @ 1 mls/hr Q24H IV 05/25/24 06:30 05/29/24 09:11 5 MLS/HR Aspirin 81 mg DAILY NG 05/26/24 10:00 06/03/24 10:14 81 MG Atorvastatin Calcium 40 mg HS NG 05/25/24 22:00 06/02/24 20:59 40 MG Ondansetron HCl 4 mg Q4HP PRN IV 05/25/24 10:45 Nitroglycerin 0.4 mg Q5MINP PRN SL 05/25/24 10:45 Albuterol 2.5 mg Q4HR NEB 05/25/24 14:00 06/03/24 14:04 2.5 MG Ipratropium [place] 0.5 mg Q4HR NEB 05/25/24 14:00 06/03/24 14:04 0.5 MG Phenylephrine HCl 250 ml @ 30 mls/hr Q8H20M IV 05/25/24 11:15 05/26/24 05:04 67.5 MLS/HR Fentanyl Citrate 250 ml @ 2.5 mls/hr Q24H IV 05/25/24 19:30 06/01/24 20:28 2.5 MLS/HR Ibuprofen 400 mg Q4HP PRN GT 05/26/24 01:15 05/26/24 01:42 400 MG Norepinephrine Bitartrate 32 mg/ Sodium Chloride 250 ml @ 0.938 mls/ hr Q24H IV 05/26/24 16:30 05/26/24 16:56 0.938 MLS/HR Cefepime HCl 0.5 gm/Dextrose 50 ml @ 12.5 mls/hr Q24H IV 05/29/24 18:00 06/02/24 18:15 12.5 MLS/HR Enteral Nutritional Formula 1,000 ml 30ML/HR GT 05/29/24 09:45 06/02/24 21:00 1,000 ML Dexmedetomidine HCl 400 mcg/ Dextrose 100 ml @ 8.18 mls/hr [id number] IV 05/29/24 14:15 06/02/24 04:50 8.18 MLS/HR Hydralazine HCl 10 mg Q6HP PRN IV 05/29/24 16:30 06/03/24 10:58 10 MG Pantoprazole Sodium 40 mg DAILY IV 05/30/24 10:00 06/03/24 10:14 40 MG Fluconazole 100 ml @ 100 mls/hr DAILY IV 05/30/24 10:00 06/03/24 10:14 100 MLS/HR Bumetanide 2 mg BIDD IV 05/30/24 18:00 06/03/24 05:48 2 MG Epoetin Rafael-epbx 10,000 unit MWF SC 05/31/24 21:00 05/31/24 22:33 10,000 UNIT Iron Sucrose 110 ml @ 110 mls/hr DAILY@1200 IV 06/01/24 17:57 06/05/24 12:59 06/03/24 13:17 110 MLS/HR Calcium Acetate 1,334 mg Q8HR GT 06/02/24 14:00 06/03/24 14:17 1,334 MG Nicardipine HCl 250 ml @ 50 mls/hr Q5H IV 06/03/24 08:00 06/03/24 13:18 150 MLS/HR Examination: GENERAL:Abnormal, LUNGS:Abnormal, ABDOMEN:Abnormal laboratory and microbiology Laboratory Tests 06/03/24 03:57 Test 06/03/24 03:57 Range/Units Serum Glucose 160 H 74-106 mg/dL Microbiology Date/Time Source Procedure Growth Status 05/27/24 08:50 Nose MRSA Screen - Final Complete 05/25/24 08:30 Urine - Putnam [place] Urine Culture - Final Complete 05/25/24 08:24 Blood Blood Culture - Final Streptococcus pneumoniae Complete 05/25/24 06:50 Sputum Gram Stain - Final Complete 05/25/24 06:50 Respiratory Culture - Final Presumptive Tara albicans Complete Problem List/Assessment/Plan Problem List/Assessment/Plan Acute kidney injury likely ATN Unknown baseline septic shock Gram + bacteremia Morbid obesity Strept PNA Ventilator-dependent hypoxic respiratory failure HD treatment tomorrow fluid removal as tolerated monitor fluid balances and ABX Plan discussed with: Other Dietary Evaluation Review Comments: 1) If GI is accessible consider Jevity 1.2 @ 70ml/hr x 24hr continuous feed goal rate as tolerated 2) If pt remains NPO >7 days consider TPN to meet at least 75% of estimated needs 3) Advance pt diet when medically feasible to a 2gm Sodium diet modified per ENERGY CONSERVATION SPECIALIST recommendations 4) Continue current plan of care Expected Outcomes/Goals: 1) Pt to receive nutrition support within 7 days of NPO status 2) Pt diet to advance 3) F/U in 2-3 days TOMY VALVERDE MD Jun 03, 2024 16:13
--- NOTE | 2024-06-03 18:28 | DVHPN2 ---
Consult Progress Note Date Seen: Jun 03, 2024 Subjective Other Systems: No overnight cardiac events reported Objective vital signs Vital Sign Date Time Temp Pulse Resp B/P (MAP) Pulse Ox O2 Delivery O2 Flow Rate FiO2 06/03/24 15:45 94 22 137/68 (91) 94 45 06/03/24 14:15 97.9 208.2 06/03/24 14:00 Mechanical Ventilator+ Total Intake and Output 06/02/24 06/02/24 06/03/24 15:00 23:00 07:00 Intake Total 40 ml 484.0 ml 276.5 ml Output Total 900 ml 225 ml Balance 40 ml -416.0 ml 51.5 ml medications Current Medications Medications Dose Ordered Sig/Yousif Route Start Time Stop Time Status Last Admin Dose Admin Midazolam HCl 50 ml @ 1 mls/hr Q24H IV 05/25/24 06:30 05/29/24 09:11 5 MLS/HR Aspirin 81 mg DAILY NG 05/26/24 10:00 06/03/24 10:14 81 MG Atorvastatin Calcium 40 mg HS NG 05/25/24 22:00 06/02/24 20:59 40 MG Ondansetron HCl 4 mg Q4HP PRN IV 05/25/24 10:45 Nitroglycerin 0.4 mg Q5MINP PRN SL 05/25/24 10:45 Albuterol 2.5 mg Q4HR NEB 05/25/24 14:00 06/03/24 14:04 2.5 MG Ipratropium [place] 0.5 mg Q4HR NEB 05/25/24 14:00 06/03/24 14:04 0.5 MG Phenylephrine HCl 250 ml @ 30 mls/hr Q8H20M IV 05/25/24 11:15 05/26/24 05:04 67.5 MLS/HR Fentanyl Citrate 250 ml @ 2.5 mls/hr Q24H IV 05/25/24 19:30 06/01/24 20:28 2.5 MLS/HR Ibuprofen 400 mg Q4HP PRN GT 05/26/24 01:15 05/26/24 01:42 400 MG Norepinephrine Bitartrate 32 mg/ Sodium Chloride 250 ml @ 0.938 mls/ hr Q24H IV 05/26/24 16:30 05/26/24 16:56 0.938 MLS/HR Cefepime HCl 0.5 gm/Dextrose 50 ml @ 12.5 mls/hr Q24H IV 05/29/24 18:00 06/02/24 18:15 12.5 MLS/HR Enteral Nutritional Formula 1,000 ml 30ML/HR GT 05/29/24 09:45 06/02/24 21:00 1,000 ML Dexmedetomidine HCl 400 mcg/ Dextrose 100 ml @ 8.18 mls/hr [id number] IV 05/29/24 14:15 06/02/24 04:50 8.18 MLS/HR Hydralazine HCl 10 mg Q6HP PRN IV 05/29/24 16:30 06/03/24 10:58 10 MG Pantoprazole Sodium 40 mg DAILY IV 05/30/24 10:00 06/03/24 10:14 40 MG Fluconazole 100 ml @ 100 mls/hr DAILY IV 05/30/24 10:00 06/03/24 10:14 100 MLS/HR Bumetanide 2 mg BIDD IV 05/30/24 18:00 06/03/24 05:48 2 MG Epoetin Rafael-epbx 10,000 unit MWF SC 05/31/24 21:00 05/31/24 22:33 10,000 UNIT Iron Sucrose 110 ml @ 110 mls/hr DAILY@1200 IV 06/01/24 17:57 06/05/24 12:59 06/03/24 13:17 110 MLS/HR Calcium Acetate 1,334 mg Q8HR GT 06/02/24 14:00 06/03/24 14:17 1,334 MG Nicardipine HCl 250 ml @ 50 mls/hr Q5H IV 06/03/24 08:00 06/03/24 13:18 150 MLS/HR Examination: GENERAL:Abnormal, LUNGS:Abnormal (Mechanically ventilated), CVS:Abnormal (On Nicardipine drip), NEURO:Abnormal (On light sedation) laboratory and microbiology Laboratory Tests 06/03/24 03:57 Test 06/03/24 03:57 Range/Units Serum Glucose 160 H 74-106 mg/dL Problem List/Assessment/Plan Problem List/Assessment/Plan Septic shock Acute on chronic HFrEF, NYHA class IV, newly diagnosed Acute hypoxic respiratory failure NSTEMI, likely type II secondary to above Mitral valve regurgitation, mild degree History of hypertension Acute kidney injury on HD Morbidly obese Plan/Recommendation (Dr. Benson) * Echocardiogram reveals EF 40% with severe concentric LVH * Nicardipine drip for blood pressure control * Initiate GDMT for CHF with stable BP and renal function * Single-antiplatelet therapy and lipid-lowering agent * Cardiac surveillance: Monitor and notify for any ECG changes * Antibiotics per primary care team * Nephrology recommendations * DVT/VTE prophylaxis Patient seen and examined at bedside with Dr. Benson. Ischemic cardiac work- up once stable. Thank you for allowing us to care for this patient. Please call with any questions or concerns. Critical care time spent: 38 minutes. This medical document was created using an electronic medical record system with voice recognition software and computerized dictation system. Although this document has been carefully reviewed, there might still be some phonetic and typographical errors. Occasional wrong-word or ``sound-alike substitutions may have occurred due to the inherent limitations of voice recognition software. These areas are purely typographical due to imperfections of the software programs and do not reflect any compromise in the patient's medical care. Please read the chart carefully and recognize, using context, where these substitutions have occurred. Plan discussed with: Other Dietary Evaluation Review Comments: 1) If GI is accessible consider Jevity 1.2 @ 70ml/hr x 24hr continuous feed goal rate as tolerated 2) If pt remains NPO >7 days consider TPN to meet at least 75% of estimated needs 3) Advance pt diet when medically feasible to a 2gm Sodium diet modified per ARCHERY INSTRUCTOR recommendations 4) Continue current plan of care Expected Outcomes/Goals: 1) Pt to receive nutrition support within 7 days of NPO status 2) Pt diet to advance 3) F/U in 2-3 days Date of Service: Jun 03, 2024 Billing Provider: CJ BENSON MD Cardiology Common Codes: [id number] [facility] Jun 03, 2024 18:28
[2024-06-03] MEDS: CARVEDILOL 12.5 MG TAB PO SCH (20:43)
--- NOTE | 2024-06-03 21:14 | DVHPN2 ---
Progress Note - Dictate Date Seen: Jun 03, 2024 Medical Necessity Reason Pt with a Central, PICC or Fol: Yes The following are medically ne: Central Line, Putnam Catheter Reason for putnam catheter: Strict I&O Subjective Patient seen and examined at bedside. Sedated, intubated on mechanical ventilator. Overnight events reviewed. vital signs Vital Sign Date Time Temp Pulse Resp B/P (MAP) Pulse Ox O2 Delivery O2 Flow Rate FiO2 06/03/24 20:43 98 150/74 06/03/24 20:22 22 94 45 06/03/24 18:45 98.1 208.6 06/03/24 18:00 Mechanical Ventilator+ Total Intake and Output 06/02/24 06/02/24 06/03/24 15:00 23:00 07:00 Intake Total 40 ml 484.0 ml 276.5 ml Output Total 900 ml 225 ml Balance 40 ml -416.0 ml 51.5 ml medications Current Medications Medications Dose Ordered Sig/Yousif Route Start Time Stop Time Status Last Admin Dose Admin Midazolam HCl 50 ml @ 1 mls/hr Q24H IV 05/25/24 06:30 05/29/24 09:11 5 MLS/HR Aspirin 81 mg DAILY NG 05/26/24 10:00 06/03/24 10:14 81 MG Atorvastatin Calcium 40 mg HS NG 05/25/24 22:00 06/03/24 20:43 40 MG Ondansetron HCl 4 mg Q4HP PRN IV 05/25/24 10:45 Nitroglycerin 0.4 mg Q5MINP PRN SL 05/25/24 10:45 Albuterol 2.5 mg Q4HR NEB 05/25/24 14:00 06/03/24 19:57 2.5 MG Ipratropium [place] 0.5 mg Q4HR NEB 05/25/24 14:00 06/03/24 19:57 0.5 MG Fentanyl Citrate 250 ml @ 2.5 mls/hr Q24H IV 05/25/24 19:30 06/03/24 20:08 2.5 MLS/HR Ibuprofen 400 mg Q4HP PRN GT 05/26/24 01:15 05/26/24 01:42 400 MG Cefepime HCl 0.5 gm/Dextrose 50 ml @ 12.5 mls/hr Q24H IV 05/29/24 18:00 06/03/24 18:24 12.5 MLS/HR Enteral Nutritional Formula 1,000 ml 30ML/HR GT 05/29/24 09:45 06/02/24 21:00 1,000 ML Dexmedetomidine HCl 400 mcg/ Dextrose 100 ml @ 8.18 mls/hr [id number] IV 05/29/24 14:15 06/02/24 04:50 8.18 MLS/HR Hydralazine HCl 10 mg Q6HP PRN IV 05/29/24 16:30 06/03/24 10:58 10 MG Pantoprazole Sodium 40 mg DAILY IV 05/30/24 10:00 06/03/24 10:14 40 MG Fluconazole 100 ml @ 100 mls/hr DAILY IV 05/30/24 10:00 06/03/24 10:14 100 MLS/HR Bumetanide 2 mg BIDD IV 05/30/24 18:00 06/03/24 18:25 2 MG Epoetin Rafael-epbx 10,000 unit MWF SC 05/31/24 21:00 05/31/24 22:33 10,000 UNIT Iron Sucrose 110 ml @ 110 mls/hr DAILY@1200 IV 06/01/24 17:57 06/05/24 12:59 06/03/24 13:17 110 MLS/HR Calcium Acetate 1,334 mg Q8HR GT 06/02/24 14:00 06/03/24 20:35 1,334 MG Nicardipine HCl 250 ml @ 50 mls/hr Q5H IV 06/03/24 08:00 06/03/24 20:35 150 MLS/HR Carvedilol 25 mg Q12HR PO 06/03/24 22:00 06/03/24 20:43 25 MG objective Gen.: Patient lying in bed in medical ICU. Sedated, intubated on mechanical ventilator. Head: Normocephalic, atraumatic. Eyes: PERRLA. Ears: Normal external anatomy. Throat: Endotracheal tube and orogastric tube in place. Neck: Supple, trachea midline. Chest: Transmitted breath sounds bilaterally. Decreased air entry bilaterally. No wheezing. Bibasilar crackles. Cardiovascular: Positive S1, positive S2. Regular rate and rhythm. Abdomen: Positive bowel sounds in all 4 quadrants. Soft, nontender, nondistended. : Putnam in place. Normal external genitalia. Rectal: Deferred. Skin: Warm, dry. Intact. Extremities: 2+ radial pulses bilaterally. No lower extremity edema. Neuro: Sedated laboratory and microbiology Laboratory Tests 06/03/24 03:57 Test 06/03/24 03:57 Range/Units Serum Glucose 160 H 74-106 mg/dL Assessment/Plan Impression: Acute hypoxic respiratory failure On mechanical ventilator Septic shock Elevated troponin Acute kidney injury Lactic acidosis Metabolic acidosis Multifocal pneumonia, likely gram negative Pulmonary edema AE COPD Events: Remains on vent support On AC mode; RR 22, VT 600, PEEP 10, FiO2 90 -->45% Improved FIO2 requirements Sedated on Fentanyl drip. Tongue swelling improved. ABG reviewed, notable for alkalemia CXR demonstrates multifocal airspace disease, unchanged. Devices in place. Continue antibiotics Decadron IV. Started carvedilol and nicardipine drip to control blood pressure. Tube feeds for nutritional support Wound care Diurese w/ Bumex Monitor renal function Hemodialysis per Nephrology - s/p HD yesterday Echo showed EF of 40%. Awaiting for mentation to improve. CT head revealed small ICH; interval development of 2 foci of subcortical parenchymal hemorrhage in the left frontal lobe. Follow up Neurology recs Plan for repeat head CT. Labs and imaging reviewed. Rest of plan as noted below. Plan: s/p intubation on mechanical ventilator. On AC mode; RR 22, VT 600, PEEP 10, FiO2 45% Titrate FIO2 to keep O2 saturation above 90%. VAP bundle. Daily ABG and CXR while intubated Sedated on Fentanyl Off pressors, hemodynamically stable. Continue bronchodilators. Steroids Continue antibiotics. F/u cultures. Pressors if necessary to maintain a mean arterial blood pressure greater than 65 mmHg. Cardiology recs appreciated. Monitor renal function Monitor electrolytes. Supplement as necessary. Monitor ins and outs. Nephrology recs appreciated. IV fluid hydration GI prophylaxis. DVT prophylaxis. Prognosis: Poor given patient's multiple co-morbidities. Condition: Critical Rest of plan per hospitalist and other consultants. A total of 35 minutes of critical care time was spent reviewing the patient record, examining the patient, making a diagnostic and therapeutic plan, discussing this plan with the medical personnel, following up on diagnostic studies and following the patient for clinical stability excluding any and all procedures. At least 50% of this time was spent in direct, enof-nu-twps contact. Thank you, SCIENTIST/[employer], for allowing me to participate in this patient's care. Further recommendations will depend on the patient's clinical course. Please do not hesitate to contact me if you have any questions or concerns. This medical document was created using an electronic medical record system with [employer] dictation system. Although these documentations are being carefully reviewed, there may still be some phonetic and typographical changes. The errors are purely typographical, due to imperfection on the software program, and do not reflect any compromise in the patient's medical care. Dietary Evaluation Review Comments: 1) If GI is accessible consider Jevity 1.2 @ 70ml/hr x 24hr continuous feed goal rate as tolerated 2) If pt remains NPO >7 days consider TPN to meet at least 75% of estimated needs 3) Advance pt diet when medically feasible to a 2gm Sodium diet modified per [employer] recommendations 4) Continue current plan of care Expected Outcomes/Goals: 1) Pt to receive nutrition support within 7 days of NPO status 2) Pt diet to advance 3) F/U in 2-3 days Plan discussed with: Other (LUZMARIA Alvarez) Critical Care Time(min): 35 MELODY ELIZABETH MD Jun 03, 2024 21:14
--- NOTE | 2024-06-03 21:33 | DVHEEG2 ---
Neurology EEG Procedural Note Procedural Note EXAM DATE: 06/03/2024 REFERRING DOCTOR: Dr. Hood TECHNIQUE: Eighteen channels of EEG, 2 channels of EOG, and 1 channel of EKG were recorded using the International 10/20 system. CLINICAL DATA: The patient was referred for an EEG evaluation for the evidence of seizure disorder. MEDICATIONS: See chart BACKGROUND ACTIVITY: The EEG showed diffuse low amplitude, mostly delta activi ty over both hemispheres, that was reactive to external stimuli ACTIVATION: Hyperventilation: Not done Photic Stimulation: Not done Sleep: Unresponsiveness IMPRESSION: This is a remarkably abnormal EEG, this EEG seen in severe cerebral dysfunction due to metabolic/toxic encephalopathy or medication effects, please correlate clinically The EKG channel showed a regular heart rate of 104/min[place] [address] PILAR HOOD MD Jun 03, 2024 21:33
[2024-06-04] VITALS (104 sets, daily range): BP systolic 94–150; BP diastolic 49–76; PULSE 62–96; RESP 16–24; TEMP 96.1–98.8; O2SAT 90–99
[2024-06-04 03:48] LABS: Basophils # (auto) 0 10 ^3/uL (0-0.2); Eosinophils # (auto) 0 10 ^3/uL (0-0.8); Hematocrit 27.3 % (36.0-46.0); Hemoglobin 8.8 g/dL (12.2-16.2); Lymphocytes # (auto) 1.3 10 ^3/uL (0.4-5.4); Lymphocytes % (auto) 6.1 % (10.0-50.0); Mean Corpuscular Hemoglobin 29.1 pg (28.0-32.0); Mean Corpuscular Hgb Conc. 32.3 g/dL (32.0-36.0); Monocytes # (auto) 1.9 10 ^3/uL (0-1.3); Monocytes % (auto) 8.6 % (0.0-12.0); Neutrophils # (auto) 18.7 10 ^3/uL (1.6-8.6); Neutrophils % (auto) 85.3 % (37.0-80.0); Nucleated Red Blood Cells % 0.1 %; Platelet Count (auto) 310 10^3/uL (140-450); Red Blood Cells 3.03 10^6/uL (4.0-5.20); Red Cell Distribution Width 15.7 % (11.8-14.3); White Blood Cell 21.9 10^3/uL (4.4-10.8)
[2024-06-04] MEDS: SODIUM CHL 0.9% 1000 ML BAG XX ONE (07:00)
[2024-06-04 07:03] LABS: Base Excess 2.1 mmol/L (-2.0-3.0)
--- NOTE | 2024-06-04 08:14 | DVHPN2 ---
Subjective Patient still encephalopathic. Reviewed: Care Plan, H&P, Labs, Medications, Previous Orders Changes from previous H/P or p: No Changes General: Per HPI Respiratory: Shortness of breath Objective Vitals Vital Signs Date Time Temp Pulse Resp B/P (MAP) Pulse Ox O2 Delivery O2 Flow Rate FiO2 06/04/24 08:01 94 22 95 Mechanical Ventilator+ 45 45 06/04/24 07:41 145/73 (97) 06/04/24 07:30 98.1 208.6 Intake/Output Intake and Output 06/04/24 07:00 Intake Total 2911.0 ml Output Total 800 ml Balance 2111.0 ml Intake Oral 40 ml IV Total 2485.0 ml Tube Feeding 386 ml Output Urine Total 800 ml General Appearance: moderate distress, Other (Patient intubated and chemically sedated.) HEENT: Atraumatic, PERRLA, Other (Patient with tongue swelling.) Lungs: Clear to auscultation, Normal air movement, Other (Mechanical ventilation) Cardiovascular: Normal S1, Normal S2 Abdomen: Normal bowel sounds, Soft, No tenderness, No hepatospenomegaly Musculoskeletal: Normal sensory function, Normal motor function Extremities: No clubbing, No cyanosis, No edema, Normal pulses, No tenderness/swelling Neuro: Normal gait, Normal speech, Strength at 5/5 X4 ext Skin: Dry, Intact Psych/Mental Status: Mental status NL, Mood NL Medications Current Medications Medications Dose Ordered Sig/Yousif Route Start Time Stop Time Status Last Admin Dose Admin Midazolam HCl 50 ml @ 1 mls/hr Q24H IV 05/25/24 06:30 05/29/24 09:11 5 MLS/HR Aspirin 81 mg DAILY NG 05/26/24 10:00 06/03/24 10:14 81 MG Atorvastatin Calcium 40 mg HS NG 05/25/24 22:00 06/03/24 20:43 40 MG Ondansetron HCl 4 mg Q4HP PRN IV 05/25/24 10:45 Nitroglycerin 0.4 mg Q5MINP PRN SL 05/25/24 10:45 Albuterol 2.5 mg Q4HR NEB 05/25/24 14:00 06/04/24 06:07 2.5 MG Ipratropium [place] 0.5 mg Q4HR NEB 05/25/24 14:00 06/04/24 06:07 0.5 MG Fentanyl Citrate 250 ml @ 2.5 mls/hr Q24H IV 05/25/24 19:30 06/03/24 20:08 2.5 MLS/HR Ibuprofen 400 mg Q4HP PRN GT 05/26/24 01:15 05/26/24 01:42 400 MG Cefepime HCl 0.5 gm/Dextrose 50 ml @ 12.5 mls/hr Q24H IV 05/29/24 18:00 06/03/24 18:24 12.5 MLS/HR Enteral Nutritional Formula 1,000 ml 30ML/HR GT 05/29/24 09:45 06/02/24 21:00 1,000 ML Dexmedetomidine HCl 400 mcg/ Dextrose 100 ml @ 8.18 mls/hr [id number] IV 05/29/24 14:15 06/02/24 04:50 8.18 MLS/HR Hydralazine HCl 10 mg Q6HP PRN IV 05/29/24 16:30 06/03/24 10:58 10 MG Pantoprazole Sodium 40 mg DAILY IV 05/30/24 10:00 06/03/24 10:14 40 MG Fluconazole 100 ml @ 100 mls/hr DAILY IV 05/30/24 10:00 06/03/24 10:14 100 MLS/HR Bumetanide 2 mg BIDD IV 05/30/24 18:00 06/04/24 06:10 2 MG Epoetin Rafael-epbx 10,000 unit MWF SC 05/31/24 21:00 05/31/24 22:33 10,000 UNIT Iron Sucrose 110 ml @ 110 mls/hr DAILY@1200 IV 06/01/24 17:57 06/05/24 12:59 06/03/24 13:17 110 MLS/HR Calcium Acetate 1,334 mg Q8HR GT 06/02/24 14:00 06/04/24 06:10 1,334 MG Nicardipine HCl 250 ml @ 50 mls/hr Q5H IV 06/03/24 08:00 06/04/24 07:39 100 MLS/HR Carvedilol 25 mg Q12HR PO 06/03/24 22:00 06/03/24 20:43 25 MG Laboratory Results Laboratory Tests 06/03/24 03:57 06/04/24 03:05 Urinalysis Test 05/25/24 08:30 05/28/24 01:30 Urine Color Yellow (Yellow) Urine Clarity Clear (Clear) Urine pH 7.5 (5.0-9.0) Urine Specific [place] 1.013 (1.001-1.035) Urine Protein 2+ (Negative) H Urine Ketones Negative (Negative) Urine Blood Negative /uL (Negative) Urine Nitrite Negative (Negative) Urine Bilirubin Negative (Negative) Urine Urobilinogen 8 mg/dL (Negative) H Urine Leukocyte Esterase Negative /uL (Negative) Urine RBC 5 /hpf (0 - 4) Urine WBC 1 /hpf (0 - 5) Urine Squamous Epithelial Cells Few /hpf (<5) Urine Bacteria None seen /hpf (None Seen) Urine Glucose Normal mg/dL (Normal) Urine Creatinine 248.25 mg/dL (30.0-125.0) H Urine Sodium 27 mmol/L (40-220) L Urine Total Protein 293.2 mg/dL (1-14) H Blood Gas Results Test 06/04/24 06:40 Arterial Blood pH 7.476 (7.350-7.450) FiO2 % 45.0 Microbiology Microbiology Date/Time Source Procedure Growth Status 05/27/24 08:50 Nose MRSA Screen - Final Complete 05/25/24 08:30 Urine - [place] Urine Culture - Final Complete 05/25/24 08:24 Blood Blood Culture - Final Streptococcus pneumoniae Complete 05/25/24 06:50 Sputum Gram Stain - Final Complete 05/25/24 06:50 Respiratory Culture - Final Presumptive Tara albicans Complete Labs and/or images reviewed: Labs reviewed by me, Image(s) reviewed by me Assessment/Plan Assessment/Plan Impression: -severe sepsis with shock , Streptococcus pneumoniae -probable community-acquired pneumonia with Gram-positive cocci -sepsis with Gram-positive cocci -acute hypoxic respiratory failure with mechanical ventilation -obesity -acute kidney injury, anuric -NSTEMI, probably type 2 -hypoalbuminemia -? Angioedema Plan: Events: Patient continues to be sedated. Findings of CT scan discussed by myself as well as Neurology yesterday with the family. Plans for repeat CT scan this a.m. from neurology standpoint there is no risk attempting to wake patient and pursue spontaneous breathing trial. ABG reviewed. Peep will be drop to eight. Continue to decrease FiO2 from 45% to keep saturation greater than 92%. -patient continues to be off vasopressor therapy, hemodynamically stable, white blood cell count improving, plans for spontaneous breathing trial once patient awakens -bronchodilators -continue cefepime and Diflucan -continue current ventilator settings. Patient now on 45% FiO2 -nephrology consultation: HD has been initiated -PUD, DVT prophylaxis -repeat labs, chest x-ray, ABG in a.m.. Critical care time spent with patient discussing and formulating plan of care: 40 minutes. This does not include time spent performing procedures. This medical document was created using an electronic medical record system with [employer] dictation system. Although this document has been carefully reviewed, there may still be some phonetic and typographical errors. These areas are purely typographical due to imperfections of the software programs, and do not reflect any compromise in the patient's medical care. Plan discussed with: Patient, Other (RN) My Orders Orders - OMAR PARK NP Procedure Category Date Status Time Chest Portable XY 06/05/24 Logged 05:00 Chest Portable XY 06/06/24 Logged 05:00 Chest Portable XY 06/07/24 Logged 05:00 Basic Metabolic Panel LAB 06/05/24 Verified 05:00 Basic Metabolic Panel LAB 06/06/24 Verified 05:00 Basic Metabolic Panel LAB 06/07/24 Verified 05:00 Ventilator Orders RT 06/04/24 Transmitted 07:05 PTPTT LAB 06/04/24 Logged 07:08 Date of Service: Jun 04, 2024 Billing Provider: OMAR PARK NP Common Visit Codes: [id number] CARE 30-74 MIN OMAR PARK NP Jun 04, 2024 08:14
[2024-06-04 08:56] LABS: INR 1.18 (0.9-1.15); Partial Thromboplastin Time 34.8 SEC (24.5-34.5); Prothrombin Time 12.3 sec (9.3-11.8)
[2024-06-04] MEDS: ALBUMIN 25% 100 ML IV ONE ×3 (09:00→09:30)
--- NOTE | 2024-06-04 12:37 | DVHPN2 ---
SARAH MONCADA [facility] 06/04/24 1237: Consult Progress Note Date Seen: Jun 04, 2024 Subjective Other Systems: No overnight cardiac events reported Objective vital signs Vital Sign Date Time Temp Pulse Resp B/P (MAP) Pulse Ox O2 Delivery O2 Flow Rate FiO2 06/04/24 11:57 68 22 110/58 (75) 96 45 06/04/24 09:38 Mechanical Ventilator+ 06/04/24 09:00 98.4 209.1 Total Intake and Output 06/03/24 06/03/24 06/04/24 15:00 23:00 07:00 Intake Total 492.5 ml 1360.5 ml 1058.0 ml Output Total 150 ml 650 ml Balance 492.5 ml 1210.5 ml 408.0 ml medications Current Medications Medications Dose Ordered Sig/Yousif Route Start Time Stop Time Status Last Admin Dose Admin Midazolam HCl 50 ml @ 1 mls/hr Q24H IV 05/25/24 06:30 05/29/24 09:11 5 MLS/HR Aspirin 81 mg DAILY NG 05/26/24 10:00 06/03/24 10:14 81 MG Atorvastatin Calcium 40 mg HS NG 05/25/24 22:00 06/03/24 20:43 40 MG Ondansetron HCl 4 mg Q4HP PRN IV 05/25/24 10:45 Nitroglycerin 0.4 mg Q5MINP PRN SL 05/25/24 10:45 Albuterol 2.5 mg Q4HR NEB 05/25/24 14:00 06/04/24 09:42 2.5 MG Ipratropium [place] 0.5 mg Q4HR NEB 05/25/24 14:00 06/04/24 09:42 0.5 MG Fentanyl Citrate 250 ml @ 2.5 mls/hr Q24H IV 05/25/24 19:30 06/03/24 20:08 2.5 MLS/HR Ibuprofen 400 mg Q4HP PRN GT 05/26/24 01:15 05/26/24 01:42 400 MG Cefepime HCl 0.5 gm/Dextrose 50 ml @ 12.5 mls/hr Q24H IV 05/29/24 18:00 06/03/24 18:24 12.5 MLS/HR Enteral Nutritional Formula 1,000 ml 30ML/HR GT 05/29/24 09:45 06/02/24 21:00 1,000 ML Dexmedetomidine HCl 400 mcg/ Dextrose 100 ml @ 8.18 mls/hr [id number] IV 05/29/24 14:15 06/04/24 11:29 8.18 MLS/HR Hydralazine HCl 10 mg Q6HP PRN IV 05/29/24 16:30 06/03/24 10:58 10 MG Pantoprazole Sodium 40 mg DAILY IV 05/30/24 10:00 06/03/24 10:14 40 MG Fluconazole 100 ml @ 100 mls/hr DAILY IV 05/30/24 10:00 06/03/24 10:14 100 MLS/HR Bumetanide 2 mg BIDD IV 05/30/24 18:00 06/04/24 06:10 2 MG Epoetin Rafael-epbx 10,000 unit MWF SC 05/31/24 21:00 05/31/24 22:33 10,000 UNIT Iron Sucrose 110 ml @ 110 mls/hr DAILY@1200 IV 06/01/24 17:57 06/05/24 12:59 06/03/24 13:17 110 MLS/HR Calcium Acetate 1,334 mg Q8HR GT 06/02/24 14:00 06/04/24 06:10 1,334 MG Nicardipine HCl 250 ml @ 50 mls/hr Q5H IV 06/03/24 08:00 06/04/24 07:39 100 MLS/HR Carvedilol 25 mg Q12HR PO 06/03/24 22:00 06/03/24 20:43 25 MG Examination: GENERAL:Abnormal, LUNGS:Abnormal (Mechanically ventilated 45% FiO2 PEEP 8.0), CVS:Normal (NSR on very low dose Nicardipine drip), NEURO:Abnormal laboratory and microbiology Laboratory Tests 06/04/24 03:05 06/03/24 03:57 Test 06/03/24 03:57 Range/Units Serum Glucose 160 H 74-106 mg/dL Problem List/Assessment/Plan Problem List/Assessment/Plan Septic shock Acute on chronic HFrEF, NYHA class IV, newly diagnosed Acute hypoxic respiratory failure NSTEMI, questionable Type I Mitral valve regurgitation, mild degree Hypertensive urgency Subcortical parenchymal hemorrhage Acute kidney injury on HD Morbidly obese Plan/Recommendation (Dr. Mariano) * Echocardiogram reveals EF 40% with severe concentric LVH * Nicardipine drip for blood pressure control. Titrate off as tolerated * GDMT for CHF as renal function permits. Currently on Coreg * Lipid-lowering agent. Hold single antiplatelet therapy given brain bleed * Cardiac surveillance: Monitor and notify for any ECG changes * Antibiotics per primary care team * Nephrology/Neurology recommendations * DVT/VTE prophylaxis: SCDs Ischemic cardiac work-up will be placed on hold given subcortical parenchymal hemorrhage. Thank you for allowing us to care for this patient. Please call with any questions or concerns. Critical care time spent: 30 minutes. This medical document was created using an electronic medical record system with voice recognition software and computerized dictation system. Although this document has been carefully reviewed, there might still be some phonetic and typographical errors. Occasional wrong-word or ``sound-alike substitutions may have occurred due to the inherent limitations of voice recognition software. These areas are purely typographical due to imperfections of the software programs and do not reflect any compromise in the patient's medical care. Please read the chart carefully and recognize, using context, where these substitutions have occurred. Plan discussed with: Other (Aleida, son, primary RN) Dietary Evaluation Review Comments: 1) If GI is accessible consider Jevity 1.2 @ 70ml/hr x 24hr continuous feed goal rate as tolerated 2) If pt remains NPO >7 days consider TPN to meet at least 75% of estimated needs 3) Advance pt diet when medically feasible to a 2gm Sodium diet modified per [facility] recommendations 4) Continue current plan of care Expected Outcomes/Goals: 1) Pt to receive nutrition support within 7 days of NPO status 2) Pt diet to advance 3) F/U in 2-3 days Date of Service: Jun 04, 2024 Billing Provider: SARAH MONCADA Cardiology Common Codes: [id number] CARE 30-74 MIN JERSON MARIANO MD 06/04/24 4995: Consult Progress Note Problem List/Assessment/Plan Problem List/Assessment/Plan abnormal ct, 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
--- NOTE | 2024-06-04 14:53 | DVH ---
EXAM: CT HEAD WITHOUT CONTRAST HISTORY: Hemorrhage COMPARISON: CT HEAD WITHOUT CONTRAST on DOS: 06/03/24, CT HEAD WITHOUT CONTRAST on DOS: 05/30/24 TECHNIQUE: Axial images of the head were obtained and reformatted in coronal and sagittal planes. All CT scans at this medical facility are performed using dose modulation techniques as appropriate t o a performed exam including the following: Automated exposure control was utilized; adjustment of th e MA and/or KV according to patient size; and use of iterative reconstruction technique. CT Dose: CTDI volume is 69 mGy. Dose-length product is 1359 mGy*cm FINDINGS: Again seen are 2 small hyperdense foci in the subcortical left frontal lobe. There is no significant surrounding edema. There is no mass effect or midline shift.There is no hydrocephalus or extra-axial fluid collection. Escudero-white matter differentiation appears maintained. There is mucosal thickening in the left sphenoid sinus. There is fluid in the bilateral mastoid air cells. The calvarium is intact. IMPRESSION: 1. Redemonstrated are 2 hyperdense foci in the subcortical left frontal lobe which may represent smal l foci of parenchymal hemorrhage. There is no significant surrounding edema or associated mass effect . HS:Y
--- NOTE | 2024-06-04 20:25 | DVHPN2 ---
Progress Note Date Seen: Jun 04, 2024 Medical Necessity Reason Pt with a Central, PICC or Fol: Yes The following are medically ne: Central Line, Putnam Catheter Reason for putnam catheter: Strict I&O Subjective Patient reports: Other Review of Systems: Deferred Objective vital signs Vital Sign Date Time Temp Pulse Resp B/P (MAP) Pulse Ox O2 Delivery O2 Flow Rate FiO2 06/04/24 18:30 97.7 62 22 93 207.9 06/04/24 18:15 45 06/04/24 18:15 Mechanical Ventilator+ Total Intake and Output 06/03/24 06/03/24 06/04/24 15:00 23:00 07:00 Intake Total 492.5 ml 1360.5 ml 1058.0 ml Output Total 150 ml 650 ml Balance 492.5 ml 1210.5 ml 408.0 ml medications Current Medications Medications Dose Ordered Sig/Yousif Route Start Time Stop Time Status Last Admin Dose Admin Midazolam HCl 50 ml @ 1 mls/hr Q24H IV 05/25/24 06:30 05/29/24 09:11 5 MLS/HR Atorvastatin Calcium 40 mg HS NG 05/25/24 22:00 06/03/24 20:43 40 MG Ondansetron HCl 4 mg Q4HP PRN IV 05/25/24 10:45 Nitroglycerin 0.4 mg Q5MINP PRN SL 05/25/24 10:45 Albuterol 2.5 mg Q4HR NEB 05/25/24 14:00 06/04/24 13:56 2.5 MG Ipratropium [place] 0.5 mg Q4HR NEB 05/25/24 14:00 06/04/24 13:56 0.5 MG Fentanyl Citrate 250 ml @ 2.5 mls/hr Q24H IV 05/25/24 19:30 06/03/24 20:08 2.5 MLS/HR Ibuprofen 400 mg Q4HP PRN GT 05/26/24 01:15 05/26/24 01:42 400 MG Cefepime HCl 0.5 gm/Dextrose 50 ml @ 12.5 mls/hr Q24H IV 05/29/24 18:00 06/04/24 18:16 12.5 MLS/HR Enteral Nutritional Formula 1,000 ml 30ML/HR GT 05/29/24 09:45 06/02/24 21:00 1,000 ML Dexmedetomidine HCl 400 mcg/ Dextrose 100 ml @ 8.18 mls/hr [id number] IV 05/29/24 14:15 06/04/24 11:29 8.18 MLS/HR Hydralazine HCl 10 mg Q6HP PRN IV 05/29/24 16:30 06/03/24 10:58 10 MG Pantoprazole Sodium 40 mg DAILY IV 05/30/24 10:00 06/04/24 10:00 40 MG Fluconazole 100 ml @ 100 mls/hr DAILY IV 05/30/24 10:00 06/04/24 10:00 100 MLS/HR Bumetanide 2 mg BIDD IV 05/30/24 18:00 06/04/24 18:03 2 MG Epoetin Rafael-epbx 10,000 unit MWF SC 05/31/24 21:00 05/31/24 22:33 10,000 UNIT Iron Sucrose 110 ml @ 110 mls/hr DAILY@1200 IV 06/01/24 17:57 06/05/24 12:59 06/04/24 12:00 110 MLS/HR Calcium Acetate 1,334 mg Q8HR GT 06/02/24 14:00 06/04/24 14:05 1,334 MG Nicardipine HCl 250 ml @ 50 mls/hr Q5H IV 06/03/24 08:00 06/04/24 07:39 100 MLS/HR Carvedilol 25 mg Q12HR PO 06/03/24 22:00 06/04/24 12:00 25 MG laboratory and microbiology Laboratory Tests 06/04/24 03:05 06/03/24 03:57 Test 06/03/24 03:57 Range/Units Serum Glucose 160 H 74-106 mg/dL Microbiology Date/Time Source Procedure Growth Status 05/27/24 08:50 Nose MRSA Screen - Final Complete 05/25/24 08:30 Urine - [place] Urine Culture - Final Complete 05/25/24 08:24 Blood Blood Culture - Final Streptococcus pneumoniae Complete 05/25/24 06:50 Sputum Gram Stain - Final Complete 05/25/24 06:50 Respiratory Culture - Final Presumptive Tara albicans Complete Problem List/Assessment/Plan Problem List/Assessment/Plan Acute kidney injury likely ATN Unknown recent baseline Severe sepsis Morbid obesity Ventilator-dependent hypoxic respiratory failure recs HD today Plan discussed with: Other Dietary Evaluation Review Comments: 1) If GI is accessible consider Jevity 1.2 @ 70ml/hr x 24hr continuous feed goal rate as tolerated 2) If pt remains NPO >7 days consider TPN to meet at least 75% of estimated needs 3) Advance pt diet when medically feasible to a 2gm Sodium diet modified per STORE DELI MANAGER recommendations 4) Continue current plan of care Expected Outcomes/Goals: 1) Pt to receive nutrition support within 7 days of NPO status 2) Pt diet to advance 3) F/U in 2-3 days LAN CHOWDHURY MD Jun 04, 2024 20:25
--- NOTE | 2024-06-04 23:31 | DVHPN2 ---
Progress Note - Dictate Date Seen: Jun 04, 2024 Medical Necessity Reason Pt with a Central, PICC or Fol: Yes The following are medically ne: Central Line, [place] Catheter Reason for putnam catheter: Strict I&O Subjective Patient seen and examined at bedside. Sedated, intubated on mechanical ventilator. Overnight events reviewed. vital signs Vital Sign Date Time Temp Pulse Resp B/P (MAP) Pulse Ox O2 Delivery O2 Flow Rate FiO2 06/04/24 22:10 66 22 143/75 (97) 92 45 06/04/24 22:00 98.1 208.6 06/04/24 22:00 Mechanical Ventilator+ Total Intake and Output 06/03/24 06/03/24 06/04/24 15:00 23:00 07:00 Intake Total 492.5 ml 1360.5 ml 1058.0 ml Output Total 150 ml 650 ml Balance 492.5 ml 1210.5 ml 408.0 ml medications Current Medications Medications Dose Ordered Sig/Yousif Route Start Time Stop Time Status Last Admin Dose Admin Midazolam HCl 50 ml @ 1 mls/hr Q24H IV 05/25/24 06:30 05/29/24 09:11 5 MLS/HR Atorvastatin Calcium 40 mg HS NG 05/25/24 22:00 06/04/24 21:04 40 MG Ondansetron HCl 4 mg Q4HP PRN IV 05/25/24 10:45 Nitroglycerin 0.4 mg Q5MINP PRN SL 05/25/24 10:45 Albuterol 2.5 mg Q4HR NEB 05/25/24 14:00 06/04/24 22:37 2.5 MG Ipratropium [place] 0.5 mg Q4HR NEB 05/25/24 14:00 06/04/24 22:37 0.5 MG Fentanyl Citrate 250 ml @ 2.5 mls/hr Q24H IV 05/25/24 19:30 06/03/24 20:08 2.5 MLS/HR Ibuprofen 400 mg Q4HP PRN GT 05/26/24 01:15 05/26/24 01:42 400 MG Cefepime HCl 0.5 gm/Dextrose 50 ml @ 12.5 mls/hr Q24H IV 05/29/24 18:00 06/04/24 18:16 12.5 MLS/HR Enteral Nutritional Formula 1,000 ml 30ML/HR GT 05/29/24 09:45 06/02/24 21:00 1,000 ML Dexmedetomidine HCl 400 mcg/ Dextrose 100 ml @ 8.18 mls/hr [id number] IV 05/29/24 14:15 06/04/24 11:29 8.18 MLS/HR Hydralazine HCl 10 mg Q6HP PRN IV 05/29/24 16:30 06/03/24 10:58 10 MG Pantoprazole Sodium 40 mg DAILY IV 05/30/24 10:00 06/04/24 10:00 40 MG Fluconazole 100 ml @ 100 mls/hr DAILY IV 05/30/24 10:00 06/04/24 10:00 100 MLS/HR Bumetanide 2 mg BIDD IV 05/30/24 18:00 06/04/24 18:03 2 MG Epoetin Rafael-epbx 10,000 unit MWF SC 05/31/24 21:00 05/31/24 22:33 10,000 UNIT Iron Sucrose 110 ml @ 110 mls/hr DAILY@1200 IV 06/01/24 17:57 06/05/24 12:59 06/04/24 12:00 110 MLS/HR Calcium Acetate 1,334 mg Q8HR GT 06/02/24 14:00 06/04/24 21:04 1,334 MG Nicardipine HCl 250 ml @ 50 mls/hr Q5H IV 06/03/24 08:00 06/04/24 07:39 100 MLS/HR Carvedilol 25 mg Q12HR PO 06/03/24 22:00 06/04/24 21:05 25 MG objective Gen.: Patient lying in bed in medical ICU. Sedated, intubated on mechanical ventilator. Head: Normocephalic, atraumatic. Eyes: PERRLA. Ears: Normal external anatomy. Throat: Endotracheal tube and orogastric tube in place. Neck: Supple, trachea midline. Chest: Transmitted breath sounds bilaterally. Decreased air entry bilaterally. No wheezing. Bibasilar crackles. Cardiovascular: Positive S1, positive S2. Regular rate and rhythm. Abdomen: Positive bowel sounds in all 4 quadrants. Soft, nontender, nondistended. : Putnam in place. Normal external genitalia. Rectal: Deferred. Skin: Warm, dry. Intact. Extremities: 2+ radial pulses bilaterally. No lower extremity edema. Neuro: Sedated laboratory and microbiology Laboratory Tests 06/04/24 03:05 06/03/24 03:57 Test 06/03/24 03:57 Range/Units Serum Glucose 160 H 74-106 mg/dL Assessment/Plan Impression: Acute hypoxic respiratory failure On mechanical ventilator Septic shock Elevated troponin Acute kidney injury Lactic acidosis Metabolic acidosis Multifocal pneumonia, likely gram negative Pulmonary edema AE COPD Events: Remains on vent support On AC mode; RR 22, VT 600, PEEP 10 -->8, FiO2 45% Sedated on Fentanyl drip. On Precedex. Tongue swelling improved. Plan to obtain CT head today. ABG reviewed, notable for alkalemia Continue antibiotics Nicardipine drip to control blood pressure. Tube feeds for nutritional support Wound care Diurese w/ Bumex Monitor renal function Hemodialysis per Nephrology Echo showed EF of 40%. SBT/KAREN - plan for CPAP in AM. Awaiting for mentation to improve. CT head revealed small ICH; interval development of 2 foci of subcortical parenchymal hemorrhage in the left frontal lobe. Follow up Neurology recs Plan for repeat head CT. Labs and imaging reviewed. Rest of plan as noted below. Plan: s/p intubation on mechanical ventilator. On AC mode; RR 22, VT 600, PEEP 8, FiO2 45% Titrate FIO2 to keep O2 saturation above 90%. VAP bundle. Daily ABG and CXR while intubated Sedated on Fentanyl Off pressors, hemodynamically stable. Continue bronchodilators. Continue antibiotics. F/u cultures. Pressors if necessary to maintain a mean arterial blood pressure greater than 65 mmHg. Cardiology recs appreciated. Monitor renal function Monitor electrolytes. Supplement as necessary. Monitor ins and outs. Nephrology recs appreciated. IV fluid hydration GI prophylaxis. DVT prophylaxis. Prognosis: Poor given patient's multiple co-morbidities. Condition: Critical Rest of plan per hospitalist and other consultants. A total of 35 minutes of critical care time was spent reviewing the patient record, examining the patient, making a diagnostic and therapeutic plan, discussing this plan with the medical personnel, following up on diagnostic studies and following the patient for clinical stability excluding any and all procedures. At least 50% of this time was spent in direct, [id number] contact. Thank you, MIRNA Stratton, for allowing me to participate in this patient's care. Further recommendations will depend on the patient's clinical course. Please do not hesitate to contact me if you have any questions or concerns. This medical document was created using an electronic medical record system with [employer] dictation system. Although these documentations are being carefully reviewed, there may still be some phonetic and typographical changes. The errors are purely typographical, due to imperfection on the software program, and do not reflect any compromise in the patient's medical care. Dietary Evaluation Review Comments: 1) If GI is accessible consider Jevity 1.2 @ 70ml/hr x 24hr continuous feed goal rate as tolerated 2) If pt remains NPO >7 days consider TPN to meet at least 75% of estimated needs 3) Advance pt diet when medically feasible to a 2gm Sodium diet modified per SLOT ROUTER recommendations 4) Continue current plan of care Expected Outcomes/Goals: 1) Pt to receive nutrition support within 7 days of NPO status 2) Pt diet to advance 3) F/U in 2-3 days Plan discussed with: Other (LUZMARIA Gonzales) Critical Care Time(min): 35 MELODY ELIZABETH MD Jun 04, 2024 23:31
[2024-06-05] VITALS (107 sets, daily range): BP systolic 121–180; BP diastolic 58–95; PULSE 64–86; RESP 16–29; TEMP 96.3–99.5; O2SAT 94–100
[2024-06-05 04:34] LABS: Basophils # (auto) 0 10 ^3/uL (0-0.2); Basophils % (auto) 0.1 % (0.0-2.0); Eosinophils # (auto) 0.1 10 ^3/uL (0-0.8); Eosinophils % (auto) 0.3 % (0.0-7.0); Hematocrit 27.8 % (36.0-46.0); Lymphocytes # (auto) 1.4 10 ^3/uL (0.4-5.4); Lymphocytes % (auto) 7.7 % (10.0-50.0); Mean Corpuscular Hemoglobin 29.7 pg (28.0-32.0); Mean Corpuscular Hgb Conc. 32.6 g/dL (32.0-36.0); Mean Corpuscular Volume 91.1 fL (80.0-100.0); Monocytes # (auto) 1.5 10 ^3/uL (0-1.3); Monocytes % (auto) 8.7 % (0.0-12.0); Neutrophils # (auto) 14.8 10 ^3/uL (1.6-8.6); Neutrophils % (auto) 83.2 % (37.0-80.0); Nucleated Red Blood Cells % 0.1 %; Platelet Count (auto) 234 10^3/uL (140-450); Red Blood Cells 3.05 10^6/uL (4.0-5.20); Red Cell Distribution Width 15.5 % (11.8-14.3); White Blood Cell 17.8 10^3/uL (4.4-10.8)
[2024-06-05 05:26] LABS: Anion Gap 12 (5-15); Carbon Dioxide 26 mmol/L (20-31)
--- NOTE | 2024-06-05 05:26 | DVH ---
CHEST RADIOGRAPH Indication: pna Technique: Single frontal view of the chest was obtained COMPARISON: XY CHEST PORTABLE on DOS: 06/02/24, XY CHEST PORTABLE on DOS: 06/01/24, XY CHEST PORTABLE o n DOS: 05/31/24, XY CHEST PORTABLE on DOS: 05/30/24, XY CHEST PORTABLE on DOS: 05/29/24 FINDINGS: Lines and Tubes: Endotracheal tube and left central venous catheter and enteric catheter in satisfact ory position. Lungs: Multifocal airspace disease. Pleura: No effusion. No pneumothorax. Cardiomediastinal contours: Cardiomegaly. Bones: Unremarkable IMPRESSION: Lines and tubes in satisfactory position. No significant interval change.
[2024-06-05 05:27] LABS: Calcium 9.4 mg/dL (8.7-10.4)
[2024-06-05 05:31] LABS: BUN/Creatinine Ratio 19.3 (10.0-20.0)
[2024-06-05 05:40] LABS: Chloride 101 mmol/L (98-107); Glucose 113 mg/dL (74-106); Sodium 139 mmol/L (136-145)
[2024-06-05 05:44] LABS: Blood Urea Nitrogen 103 mg/dL (9-23)
[2024-06-05 06:27] LABS: Base Excess 3.3 mmol/L (-2.0-3.0)
--- NOTE | 2024-06-05 08:38 | DVHPN2 ---
Progress Note Date Seen: Jun 05, 2024 Medical Necessity Reason Pt with a Central, PICC or Fol: Yes The following are medically ne: Central Line, [place] Catheter Reason for putnam catheter: Strict I&O Subjective Patient reports: Other Review of Systems: Deferred Objective vital signs Vital Sign Date Time Temp Pulse Resp B/P (MAP) Pulse Ox O2 Delivery O2 Flow Rate FiO2 06/05/24 08:17 68 22 148/76 (100) 95 45 06/05/24 07:00 97.5 207.5 06/05/24 06:00 Mechanical Ventilator+ Total Intake and Output 06/04/24 06/04/24 06/05/24 15:00 23:00 07:00 Intake Total 465.44 ml 590.88 ml 334.52 ml Output Total 400 ml 350 ml Balance 465.44 ml 190.88 ml -15.48 ml medications Current Medications Medications Dose Ordered Sig/Yousif Route Start Time Stop Time Status Last Admin Dose Admin Midazolam HCl 50 ml @ 1 mls/hr Q24H IV 05/25/24 06:30 05/29/24 09:11 5 MLS/HR Atorvastatin Calcium 40 mg HS NG 05/25/24 22:00 06/04/24 21:04 40 MG Ondansetron HCl 4 mg Q4HP PRN IV 05/25/24 10:45 Nitroglycerin 0.4 mg Q5MINP PRN SL 05/25/24 10:45 Albuterol 2.5 mg Q4HR NEB 05/25/24 14:00 06/05/24 05:51 2.5 MG Ipratropium [place] 0.5 mg Q4HR NEB 05/25/24 14:00 06/05/24 05:51 0.5 MG Fentanyl Citrate 250 ml @ 2.5 mls/hr Q24H IV 05/25/24 19:30 06/03/24 20:08 2.5 MLS/HR Ibuprofen 400 mg Q4HP PRN GT 05/26/24 01:15 05/26/24 01:42 400 MG Cefepime HCl 0.5 gm/Dextrose 50 ml @ 12.5 mls/hr Q24H IV 05/29/24 18:00 06/04/24 18:16 12.5 MLS/HR Enteral Nutritional Formula 1,000 ml 30ML/HR GT 05/29/24 09:45 06/02/24 21:00 1,000 ML Dexmedetomidine HCl 400 mcg/ Dextrose 100 ml @ 8.18 mls/hr [id number] IV 05/29/24 14:15 06/05/24 05:36 12.27 MLS/HR Hydralazine HCl 10 mg Q6HP PRN IV 05/29/24 16:30 06/03/24 10:58 10 MG Pantoprazole Sodium 40 mg DAILY IV 05/30/24 10:00 06/04/24 10:00 40 MG Fluconazole 100 ml @ 100 mls/hr DAILY IV 05/30/24 10:00 06/04/24 10:00 100 MLS/HR Bumetanide 2 mg BIDD IV 05/30/24 18:00 06/05/24 05:18 2 MG Epoetin Rafael-epbx 10,000 unit MWF SC 05/31/24 21:00 05/31/24 22:33 10,000 UNIT Iron Sucrose 110 ml @ 110 mls/hr DAILY@1200 IV 06/01/24 17:57 06/05/24 12:59 06/04/24 12:00 110 MLS/HR Calcium Acetate 1,334 mg Q8HR GT 06/02/24 14:00 06/05/24 05:18 1,334 MG Nicardipine HCl 250 ml @ 50 mls/hr Q5H IV 06/03/24 08:00 06/04/24 07:39 100 MLS/HR Carvedilol 25 mg Q12HR PO 06/03/24 22:00 06/04/24 21:05 25 MG Examination: LUNGS:Abnormal, MSK:Abnormal, SKIN:Abnormal, NEURO:Abnormal laboratory and microbiology Laboratory Tests 06/05/24 03:00 Test 06/05/24 03:00 Range/Units Serum Glucose 113 H 74-106 mg/dL Microbiology Date/Time Source Procedure Growth Status 05/27/24 08:50 Nose MRSA Screen - Final Complete 05/25/24 08:30 Urine - [place] Urine Culture - Final Complete 05/25/24 08:24 Blood Blood Culture - Final Streptococcus pneumoniae Complete 05/25/24 06:50 Sputum Gram Stain - Final Complete 05/25/24 06:50 Respiratory Culture - Final Presumptive Tara albicans Complete Problem List/Assessment/Plan Problem List/Assessment/Plan Acute kidney injury likely ATN needing HD Unknown recent baseline Severe sepsis Morbid obesity Ventilator-dependent hypoxic respiratory failure recs next HD friday Plan discussed with: Other Dietary Evaluation Review Comments: 1) If GI is accessible consider Jevity 1.2 @ 70ml/hr x 24hr continuous feed goal rate as tolerated 2) If pt remains NPO >7 days consider TPN to meet at least 75% of estimated needs 3) Advance pt diet when medically feasible to a 2gm Sodium diet modified per AQUATIC INSTRUCTOR recommendations 4) Continue current plan of care Expected Outcomes/Goals: 1) Pt to receive nutrition support within 7 days of NPO status 2) Pt diet to advance 3) F/U in 2-3 days LAN CHOWDHURY MD Jun 05, 2024 08:38
--- NOTE | 2024-06-05 13:04 | DVHPN2 ---
Progress Note Date Seen: Jun 05, 2024 Medical Necessity Reason Pt with a Central, PICC or Fol: Yes The following are medically ne: Central Line, [place] Catheter Reason for putnam catheter: Strict I&O Subjective Other Systems: no major cv changes overnight Objective vital signs Vital Sign Date Time Temp Pulse Resp B/P (MAP) Pulse Ox O2 Delivery O2 Flow Rate FiO2 06/05/24 12:16 97.9 75 22 158/76 (103) 96 208.2 06/05/24 12:06 45 06/05/24 12:00 Mechanical Ventilator+ Total Intake and Output 06/04/24 06/04/24 06/05/24 15:00 23:00 07:00 Intake Total 465.44 ml 590.88 ml 334.52 ml Output Total 400 ml 350 ml Balance 465.44 ml 190.88 ml -15.48 ml medications Current Medications Medications Dose Ordered Sig/Yousif Route Start Time Stop Time Status Last Admin Dose Admin Midazolam HCl 50 ml @ 1 mls/hr Q24H IV 05/25/24 06:30 05/29/24 09:11 5 MLS/HR Atorvastatin Calcium 40 mg HS NG 05/25/24 22:00 06/04/24 21:04 40 MG Ondansetron HCl 4 mg Q4HP PRN IV 05/25/24 10:45 Nitroglycerin 0.4 mg Q5MINP PRN SL 05/25/24 10:45 Albuterol 2.5 mg Q4HR NEB 05/25/24 14:00 06/05/24 09:58 2.5 MG Ipratropium [place] 0.5 mg Q4HR NEB 05/25/24 14:00 06/05/24 09:58 0.5 MG Fentanyl Citrate 250 ml @ 2.5 mls/hr Q24H IV 05/25/24 19:30 06/03/24 20:08 2.5 MLS/HR Ibuprofen 400 mg Q4HP PRN GT 05/26/24 01:15 05/26/24 01:42 400 MG Cefepime HCl 0.5 gm/Dextrose 50 ml @ 12.5 mls/hr Q24H IV 05/29/24 18:00 06/04/24 18:16 12.5 MLS/HR Enteral Nutritional Formula 1,000 ml 30ML/HR GT 05/29/24 09:45 06/02/24 21:00 1,000 ML Dexmedetomidine HCl 400 mcg/ Dextrose 100 ml @ 8.18 mls/hr [id number] IV 05/29/24 14:15 06/05/24 05:36 12.27 MLS/HR Hydralazine HCl 10 mg Q6HP PRN IV 05/29/24 16:30 06/03/24 10:58 10 MG Pantoprazole Sodium 40 mg DAILY IV 05/30/24 10:00 06/05/24 08:39 40 MG Fluconazole 100 ml @ 100 mls/hr DAILY IV 05/30/24 10:00 06/05/24 08:46 100 MLS/HR Bumetanide 2 mg BIDD IV 05/30/24 18:00 06/05/24 05:18 2 MG Epoetin Rafael-epbx 10,000 unit MWF SC 05/31/24 21:00 05/31/24 22:33 10,000 UNIT Calcium Acetate 1,334 mg Q8HR GT 06/02/24 14:00 06/05/24 05:18 1,334 MG Nicardipine HCl 250 ml @ 50 mls/hr Q5H IV 06/03/24 08:00 06/04/24 07:39 100 MLS/HR Carvedilol 25 mg Q12HR PO 06/03/24 22:00 06/05/24 08:40 25 MG Examination: GENERAL:Abnormal, HEENT:Abnormal, LUNGS:Abnormal, CVS:Abnormal, ABDOMEN:Abnormal laboratory and microbiology Laboratory Tests 06/05/24 03:00 Test 06/05/24 03:00 Range/Units Serum Glucose 113 H 74-106 mg/dL Microbiology Date/Time Source Procedure Growth Status 05/27/24 08:50 Nose MRSA Screen - Final Complete 05/25/24 08:30 Urine - [place] Urine Culture - Final Complete 05/25/24 08:24 Blood Blood Culture - Final Streptococcus pneumoniae Complete 05/25/24 06:50 Sputum Gram Stain - Final Complete 05/25/24 06:50 Respiratory Culture - Final Presumptive Tara albicans Complete Problem List/Assessment/Plan Problem List/Assessment/Plan Septic shock Acute on chronic HFrEF, NYHA class IV, newly diagnosed Acute hypoxic respiratory failure NSTEMI, questionable Type I Mitral valve regurgitation, mild degree Hypertensive urgency Subcortical parenchymal hemorrhage Acute kidney injury on HD Morbidly obese Plan/Recommendation (Dr. Mariano) * Echocardiogram reveals EF 40% with severe concentric LVH * Nicardipine drip for blood pressure control. Titrate off as tolerated * GDMT for CHF as renal function permits. Currently on Coreg * Lipid-lowering agent. Hold single antiplatelet therapy given brain bleed * Cardiac surveillance: Monitor and notify for any ECG changes * Antibiotics per primary care team * Nephrology/Neurology recommendations * DVT/VTE prophylaxis: SCDs * * pt has poor prognosis, awaiting pt to wake up more, would recommend conservative therapy Plan discussed with: Other (rn) Dietary Evaluation Review Comments: 1) If GI is accessible consider Jevity 1.2 @ 70ml/hr x 24hr continuous feed goal rate as tolerated 2) If pt remains NPO >7 days consider TPN to meet at least 75% of estimated needs 3) Advance pt diet when medically feasible to a 2gm Sodium diet modified per WET CLEANER MACHINE recommendations 4) Continue current plan of care Expected Outcomes/Goals: 1) Pt to receive nutrition support within 7 days of NPO status 2) Pt diet to advance 3) F/U in 2-3 days Date of Service: Jun 05, 2024 Billing Provider: JERSON MARIANO MD Common Visit Codes: NOT BILLABLE JERSON MARINAO MD Jun 05, 2024 13:04
--- NOTE | 2024-06-05 20:27 | DVHPN2 ---
Reviewed: Care Plan, H&P, Labs, Medications, Previous Orders Changes from previous H/P or p: No Changes General: Per HPI Respiratory: Shortness of breath Objective Vitals Vital Signs Date Time Temp Pulse Resp B/P (MAP) Pulse Ox O2 Delivery O2 Flow Rate FiO2 06/05/24 20:13 75 22 121/59 (79) 97 45 06/05/24 20:00 Mechanical Ventilator+ 06/05/24 16:30 98.2 98.2 Intake/Output Intake and Output 06/05/24 07:00 Intake Total 1390.84 ml Output Total 750 ml Balance 640.84 ml Intake Oral 120 ml IV Total 870.84 ml Tube Feeding 400 ml Output Urine Total 750 ml Stool Total 0 ml General Appearance: moderate distress, Other (Patient intubated and chemically sedated.) HEENT: Atraumatic, PERRLA, Other (Patient with tongue swelling.) Lungs: Clear to auscultation, Normal air movement, Other (Mechanical ventilation) Cardiovascular: Normal S1, Normal S2 Abdomen: Normal bowel sounds, Soft, No tenderness, No hepatospenomegaly Musculoskeletal: Normal sensory function, Normal motor function Extremities: No clubbing, No cyanosis, No edema, Normal pulses, No tenderness/swelling Neuro: Normal gait, Normal speech, Strength at 5/5 X4 ext Skin: Dry, Intact Psych/Mental Status: Mental status NL, Mood NL Medications Current Medications Medications Dose Ordered Sig/Yousif Route Start Time Stop Time Status Last Admin Dose Admin Midazolam HCl 50 ml @ 1 mls/hr Q24H IV 05/25/24 06:30 05/29/24 09:11 5 MLS/HR Atorvastatin Calcium 40 mg HS NG 05/25/24 22:00 06/04/24 21:04 40 MG Ondansetron HCl 4 mg Q4HP PRN IV 05/25/24 10:45 Nitroglycerin 0.4 mg Q5MINP PRN SL 05/25/24 10:45 Albuterol 2.5 mg Q4HR NEB 05/25/24 14:00 06/05/24 18:28 2.5 MG Ipratropium [place] 0.5 mg Q4HR NEB 05/25/24 14:00 06/05/24 18:28 0.5 MG Fentanyl Citrate 250 ml @ 2.5 mls/hr Q24H IV 05/25/24 19:30 06/05/24 15:15 2.5 MLS/HR Ibuprofen 400 mg Q4HP PRN GT 05/26/24 01:15 05/26/24 01:42 400 MG Cefepime HCl 0.5 gm/Dextrose 50 ml @ 12.5 mls/hr Q24H IV 05/29/24 18:00 06/05/24 17:32 12.5 MLS/HR Enteral Nutritional Formula 1,000 ml 30ML/HR GT 05/29/24 09:45 06/05/24 15:30 1,000 ML Dexmedetomidine HCl 400 mcg/ Dextrose 100 ml @ 8.18 mls/hr [id number] IV 05/29/24 14:15 06/05/24 05:36 12.27 MLS/HR Hydralazine HCl 10 mg Q6HP PRN IV 05/29/24 16:30 06/03/24 10:58 10 MG Pantoprazole Sodium 40 mg DAILY IV 05/30/24 10:00 06/05/24 08:39 40 MG Fluconazole 100 ml @ 100 mls/hr DAILY IV 05/30/24 10:00 06/05/24 08:46 100 MLS/HR Bumetanide 2 mg BIDD IV 05/30/24 18:00 06/05/24 17:32 2 MG Epoetin Rafael-epbx 10,000 unit MWF SC 05/31/24 21:00 05/31/24 22:33 10,000 UNIT Calcium Acetate 1,334 mg Q8HR GT 06/02/24 14:00 06/05/24 15:14 1,334 MG Nicardipine HCl 250 ml @ 50 mls/hr Q5H IV 06/03/24 08:00 06/04/24 07:39 100 MLS/HR Carvedilol 25 mg Q12HR PO 06/03/24 22:00 06/05/24 08:40 25 MG Laboratory Results Laboratory Tests 06/05/24 03:00 Chemistry Test 06/05/24 03:00 Calcium Level 9.4 mg/dL (8.7-10.4) Urinalysis Test 05/25/24 08:30 05/28/24 01:30 Urine Color Yellow (Yellow) Urine Clarity Clear (Clear) Urine pH 7.5 (5.0-9.0) Urine Specific [place] 1.013 (1.001-1.035) Urine Protein 2+ (Negative) H Urine Ketones Negative (Negative) Urine Blood Negative /uL (Negative) Urine Nitrite Negative (Negative) Urine Bilirubin Negative (Negative) Urine Urobilinogen 8 mg/dL (Negative) H Urine Leukocyte Esterase Negative /uL (Negative) Urine RBC 5 /hpf (0 - 4) Urine WBC 1 /hpf (0 - 5) Urine Squamous Epithelial Cells Few /hpf (<5) Urine Bacteria None seen /hpf (None Seen) Urine Glucose Normal mg/dL (Normal) Urine Creatinine 248.25 mg/dL (30.0-125.0) H Urine Sodium 27 mmol/L (40-220) L Urine Total Protein 293.2 mg/dL (1-14) H Blood Gas Results Test 06/05/24 06:23 Arterial Blood pH 7.518 (7.350-7.450) FiO2 % 45.0 Microbiology Microbiology Date/Time Source Procedure Growth Status 05/27/24 08:50 Nose MRSA Screen - Final Complete 05/25/24 08:30 Urine - [place] Urine Culture - Final Complete 05/25/24 08:24 Blood Blood Culture - Final Streptococcus pneumoniae Complete 05/25/24 06:50 Sputum Gram Stain - Final Complete 05/25/24 06:50 Respiratory Culture - Final Presumptive Tara albicans Complete Assessment/Plan Assessment/Plan Impression: -severe sepsis with shock , Streptococcus pneumoniae -probable community-acquired pneumonia with Gram-positive cocci -sepsis with Gram-positive cocci -acute hypoxic respiratory failure with mechanical ventilation -obesity -acute kidney injury, anuric -NSTEMI, probably type 2 -hypoalbuminemia -? Angioedema Plan: Events: Patient continues to be sedated. Findings of CT scan discussed by myself as well as Neurology yesterday with the family. Plans for repeat CT scan this a.m. from neurology standpoint there is no risk attempting to wake patient and pursue spontaneous breathing trial. ABG reviewed. Peep will be drop to eight. Continue to decrease FiO2 from 45% to keep saturation greater than 92%. -patient continues to be off vasopressor therapy, hemodynamically stable, white blood cell count improving, plans for spontaneous breathing trial once patient awakens -bronchodilators -continue cefepime and Diflucan -continue current ventilator settings. Patient now on 45% FiO2 -nephrology consultation: HD has been initiated -PUD, DVT prophylaxis -repeat labs, chest x-ray, ABG in a.m.. Critical care time spent with patient discussing and formulating plan of care: 40 minutes. This does not include time spent performing procedures. Plan discussed with: Patient Date of Service: Jun 05, 2024 Billing Provider: ENEDELIA CARO DO Common Visit Codes: [id number] CARE 30-74 MIN ENEDELIA CARO DO Jun 05, 2024 20:27
--- NOTE | 2024-06-05 23:07 | DVHPN2 ---
Progress Note - Dictate Date Seen: Jun 05, 2024 Medical Necessity Reason Pt with a Central, PICC or Fol: Yes The following are medically ne: Central Line, Putnam Catheter Reason for putnam catheter: Strict I&O Subjective Patient seen and examined at bedside. Sedated, intubated on mechanical ventilator. Overnight events reviewed. vital signs Vital Sign Date Time Temp Pulse Resp B/P (MAP) Pulse Ox O2 Delivery O2 Flow Rate FiO2 06/05/24 22:45 70 23 142/71 (94) 96 06/05/24 22:19 45 06/05/24 22:00 Mechanical Ventilator+ 06/05/24 20:00 99.5 99.5 Total Intake and Output 06/04/24 06/04/24 06/05/24 15:00 23:00 07:00 Intake Total 465.44 ml 590.88 ml 334.52 ml Output Total 400 ml 350 ml Balance 465.44 ml 190.88 ml -15.48 ml medications Current Medications Medications Dose Ordered Sig/Yousif Route Start Time Stop Time Status Last Admin Dose Admin Midazolam HCl 50 ml @ 1 mls/hr Q24H IV 05/25/24 06:30 05/29/24 09:11 5 MLS/HR Atorvastatin Calcium 40 mg HS NG 05/25/24 22:00 06/05/24 21:14 40 MG Ondansetron HCl 4 mg Q4HP PRN IV 05/25/24 10:45 Nitroglycerin 0.4 mg Q5MINP PRN SL 05/25/24 10:45 Albuterol 2.5 mg Q4HR NEB 05/25/24 14:00 06/05/24 22:19 2.5 MG Ipratropium [place] 0.5 mg Q4HR NEB 05/25/24 14:00 06/05/24 22:19 0.5 MG Fentanyl Citrate 250 ml @ 2.5 mls/hr Q24H IV 05/25/24 19:30 06/05/24 15:15 2.5 MLS/HR Ibuprofen 400 mg Q4HP PRN GT 05/26/24 01:15 05/26/24 01:42 400 MG Cefepime HCl 0.5 gm/Dextrose 50 ml @ 12.5 mls/hr Q24H IV 05/29/24 18:00 06/05/24 17:32 12.5 MLS/HR Enteral Nutritional Formula 1,000 ml 30ML/HR GT 05/29/24 09:45 06/05/24 15:30 1,000 ML Dexmedetomidine HCl 400 mcg/ Dextrose 100 ml @ 8.18 mls/hr [id number] IV 05/29/24 14:15 06/05/24 05:36 12.27 MLS/HR Hydralazine HCl 10 mg Q6HP PRN IV 05/29/24 16:30 06/03/24 10:58 10 MG Pantoprazole Sodium 40 mg DAILY IV 05/30/24 10:00 06/05/24 08:39 40 MG Fluconazole 100 ml @ 100 mls/hr DAILY IV 05/30/24 10:00 06/05/24 08:46 100 MLS/HR Bumetanide 2 mg BIDD IV 05/30/24 18:00 06/05/24 17:32 2 MG Epoetin Rafael-epbx 10,000 unit MWF SC 05/31/24 21:00 05/31/24 22:33 10,000 UNIT Calcium Acetate 1,334 mg Q8HR GT 06/02/24 14:00 06/05/24 21:15 1,334 MG Nicardipine HCl 250 ml @ 50 mls/hr Q5H IV 06/03/24 08:00 06/04/24 07:39 100 MLS/HR Carvedilol 25 mg Q12HR PO 06/03/24 22:00 06/05/24 21:15 25 MG objective Gen.: Patient lying in bed in medical ICU. Sedated, intubated on mechanical ventilator. Head: Normocephalic, atraumatic. Eyes: PERRLA. Ears: Normal external anatomy. Throat: Endotracheal tube and orogastric tube in place. Neck: Supple, trachea midline. Chest: Transmitted breath sounds bilaterally. Decreased air entry bilaterally. No wheezing. Bibasilar crackles. Cardiovascular: Positive S1, positive S2. Regular rate and rhythm. Abdomen: Positive bowel sounds in all 4 quadrants. Soft, nontender, nondistended. : Putnam in place. Normal external genitalia. Rectal: Deferred. Skin: Warm, dry. Intact. Extremities: 2+ radial pulses bilaterally. No lower extremity edema. Neuro: Sedated laboratory and microbiology Laboratory Tests 06/05/24 03:00 Test 06/05/24 03:00 Range/Units Serum Glucose 113 H 74-106 mg/dL Assessment/Plan Impression: Acute hypoxic respiratory failure On mechanical ventilator Septic shock Elevated troponin Acute kidney injury Lactic acidosis Metabolic acidosis Multifocal pneumonia, likely gram negative Pulmonary edema AE COPD Events: Remains on vent support On AC mode; RR 22, VT 600, PEEP 8, FiO2 45% On Precedex drip. OK to start low dose Fentanyl and/or Propofol. Avoid Versed. Patient failed CPAP. CT head reviewed, redemonstrated 2 hyperdense foci in the subcortical left frontal lobe which may represent small foci of parenchymal hemorrhage. ABG reviewed, notable for alkalemia CXR demonstrated multifocal airspace disease. Devices in place. Continue antibiotics Nicardipine drip to control blood pressure. Continue steroids/Pepcid/Benadryl - tongue swelling improving. Tube feeds for nutritional support Wound care Iron supplementation Monitor hemoglobin Diurese w/ Bumex Monitor renal function Hemodialysis per Nephrology Echo showed EF of 40%. SBT/KAREN - plan for CPAP in AM. Awaiting for mentation to improve. CT head revealed small ICH; interval development of 2 foci of subcortical parenchymal hemorrhage in the left frontal lobe. Neurology recs appreciated. Labs and imaging reviewed. Rest of plan as noted below. Plan: s/p intubation on mechanical ventilator. On AC mode; RR 22, VT 600, PEEP 8, FiO2 45% Titrate FIO2 to keep O2 saturation above 90%. VAP bundle. Daily ABG and CXR while intubated Sedate for vent synchrony. Off pressors, hemodynamically stable. Continue bronchodilators. Continue antibiotics. F/u cultures. Pressors if necessary to maintain a mean arterial blood pressure greater than 65 mmHg. Cardiology recs appreciated. Monitor renal function Monitor electrolytes. Supplement as necessary. Monitor ins and outs. Nephrology recs appreciated. IV fluid hydration GI prophylaxis. DVT prophylaxis. Prognosis: Poor given patient's multiple co-morbidities. Condition: Critical Rest of plan per hospitalist and other consultants. A total of 35 minutes of critical care time was spent reviewing the patient record, examining the patient, making a diagnostic and therapeutic plan, discussing this plan with the medical personnel, following up on diagnostic studies and following the patient for clinical stability excluding any and all procedures. At least 50% of this time was spent in direct, [id number] contact. Thank you, COST COORDINATOR Viral, for allowing me to participate in this patient's care. Further recommendations will depend on the patient's clinical course. Please do not hesitate to contact me if you have any questions or concerns. This medical document was created using an electronic medical record system with [email or web address] dictation system. Although these documentations are being carefully reviewed, there may still be some phonetic and typographical changes. The errors are purely typographical, due to imperfection on the software program, and do not reflect any compromise in the patient's medical care. Dietary Evaluation Review Comments: 1) If GI is accessible consider Jevity 1.2 @ 70ml/hr x 24hr continuous feed goal rate as tolerated 2) If pt remains NPO >7 days consider TPN to meet at least 75% of estimated needs 3) Advance pt diet when medically feasible to a 2gm Sodium diet modified per DIAGNOSTIC ASSISTANT recommendations 4) Continue current plan of care Expected Outcomes/Goals: 1) Pt to receive nutrition support within 7 days of NPO status 2) Pt diet to advance 3) F/U in 2-3 days Plan discussed with: Other (LUZMARIA Walls) Critical Care Time(min): 35 MELODY ELIZABETH MD Jun 05, 2024 23:07
[2024-06-06] VITALS (115 sets, daily range): BP systolic 116–202; BP diastolic 47–122; PULSE 64–119; RESP 6–39; TEMP 97.9–99; O2SAT 94–99
[2024-06-06 03:39] LABS: Basophils # (auto) 0 10 ^3/uL (0-0.2); Basophils % (auto) 0.3 % (0.0-2.0); Eosinophils # (auto) 0.1 10 ^3/uL (0-0.8); Eosinophils % (auto) 0.7 % (0.0-7.0); Hematocrit 26.7 % (36.0-46.0); Hemoglobin 8.7 g/dL (12.2-16.2); Lymphocytes # (auto) 1.4 10 ^3/uL (0.4-5.4); Lymphocytes % (auto) 7.2 % (10.0-50.0); Mean Corpuscular Hemoglobin 29.5 pg (28.0-32.0); Mean Corpuscular Hgb Conc. 32.6 g/dL (32.0-36.0); Mean Corpuscular Volume 90.4 fL (80.0-100.0); Monocytes # (auto) 1.3 10 ^3/uL (0-1.3); Monocytes % (auto) 6.7 % (0.0-12.0); Neutrophils # (auto) 16.4 10 ^3/uL (1.6-8.6); Neutrophils % (auto) 85.1 % (37.0-80.0); Nucleated Red Blood Cells % 0.1 %; Platelet Count (auto) 212 10^3/uL (140-450); Red Blood Cells 2.95 10^6/uL (4.0-5.20); Red Cell Distribution Width 15.2 % (11.8-14.3); White Blood Cell 19.2 10^3/uL (4.4-10.8)
[2024-06-06 04:14] LABS: Anion Gap 17 (5-15); Carbon Dioxide 23 mmol/L (20-31); Chloride 100 mmol/L (98-107); Potassium 4.4 mmol/L (3.5-5.1); Sodium 140 mmol/L (136-145)
[2024-06-06 04:15] LABS: Calcium 9.5 mg/dL (8.7-10.4)
[2024-06-06 04:21] LABS: BUN/Creatinine Ratio 21.4 (10.0-20.0)
[2024-06-06 04:28] LABS: Glucose 118 mg/dL (74-106)
[2024-06-06 04:29] LABS: Magnesium 3.1 mg/dL (1.6-2.6)
[2024-06-06 04:32] LABS: Blood Urea Nitrogen 135 mg/dL (9-23)
--- NOTE | 2024-06-06 05:43 | DVH ---
CHEST RADIOGRAPH Indication: pna Technique: Single frontal view of the chest was obtained COMPARISON: XY CHEST PORTABLE on DOS: 06/05/24, XY CHEST PORTABLE on DOS: 06/02/24, XY CHEST PORTABLE o n DOS: 06/01/24, XY CHEST PORTABLE on DOS: 05/31/24, XY CHEST PORTABLE on DOS: 05/30/24 FINDINGS: Lines and Tubes: Unchanged Lungs: Unchanged atelectasis or pneumonia in the left lower lobe. Pleura: No effusion. No pneumothorax. Cardiomediastinal contours: Unchanged Bones: Unremarkable IMPRESSION: 1. Unchanged atelectasis or pneumonia in the left lower lobe.
--- NOTE | 2024-06-06 11:31 | DVHPN2 ---
Progress Note Date Seen: Jun 06, 2024 Medical Necessity Reason Pt with a Central, PICC or Fol: Yes The following are medically ne: Central Line, [place]nam Catheter Reason for putnam catheter: Strict I&O Subjective Other Systems: not waking up no pressors bp intermittently up Objective vital signs Vital Sign Date Time Temp Pulse Resp B/P (MAP) Pulse Ox O2 Delivery O2 Flow Rate FiO2 06/06/24 11:20 73 22 130/69 (89) 98 40 06/06/24 09:36 Mechanical Ventilator+ 06/06/24 08:15 97.9 97.9 Total Intake and Output 06/05/24 06/05/24 06/06/24 15:00 23:00 07:00 Intake Total 259.08 ml 201.36 ml 276.81 ml Output Total 500 ml 525 ml Balance 259.08 ml -298.64 ml -248.19 ml medications Current Medications Medications Dose Ordered Sig/Yousif Route Start Time Stop Time Status Last Admin Dose Admin Midazolam HCl 50 ml @ 1 mls/hr Q24H IV 05/25/24 06:30 05/29/24 09:11 5 MLS/HR Atorvastatin Calcium 40 mg HS NG 05/25/24 22:00 06/05/24 21:14 40 MG Ondansetron HCl 4 mg Q4HP PRN IV 05/25/24 10:45 Nitroglycerin 0.4 mg Q5MINP PRN SL 05/25/24 10:45 Albuterol 2.5 mg Q4HR NEB 05/25/24 14:00 06/06/24 11:23 2.5 MG Ipratropium [place] 0.5 mg Q4HR NEB 05/25/24 14:00 06/06/24 11:23 0.5 MG Fentanyl Citrate 250 ml @ 2.5 mls/hr Q24H IV 05/25/24 19:30 06/05/24 15:15 2.5 MLS/HR Ibuprofen 400 mg Q4HP PRN GT 05/26/24 01:15 05/26/24 01:42 400 MG Cefepime HCl 0.5 gm/Dextrose 50 ml @ 12.5 mls/hr Q24H IV 05/29/24 18:00 06/05/24 17:32 12.5 MLS/HR Enteral Nutritional Formula 1,000 ml 30ML/HR GT 05/29/24 09:45 1/18/25 15:30 1,000 ML Dexmedetomidine HCl 400 mcg/ Dextrose 100 ml @ 8.18 mls/hr [id number] IV 05/29/24 14:15 06/06/24 03:50 8.18 MLS/HR Hydralazine HCl 10 mg Q6HP PRN IV 05/29/24 16:30 06/06/24 10:37 10 MG Pantoprazole Sodium 40 mg DAILY IV 05/30/24 10:00 06/06/24 07:32 40 MG Fluconazole 100 ml @ 100 mls/hr DAILY IV 05/30/24 10:00 06/06/24 07:31 100 MLS/HR Bumetanide 2 mg BIDD IV 05/30/24 18:00 06/06/24 05:07 2 MG Epoetin Rafael-epbx 10,000 unit MWF SC 05/31/24 21:00 05/31/24 22:33 10,000 UNIT Calcium Acetate 1,334 mg Q8HR GT 06/02/24 14:00 06/06/24 05:07 1,334 MG Nicardipine HCl 250 ml @ 50 mls/hr Q5H IV 06/03/24 08:00 06/04/24 07:39 100 MLS/HR Carvedilol 25 mg Q12HR PO 06/03/24 22:00 06/06/24 09:47 25 MG Examination: GENERAL:Abnormal, HEENT:Abnormal, LUNGS:Abnormal, CVS:Abnormal, ABDOMEN:Abnormal laboratory and microbiology Laboratory Tests 06/06/24 03:22 Test 06/06/24 03:22 Range/Units Serum Glucose 118 H 74-106 mg/dL Microbiology Date/Time Source Procedure Growth Status 05/27/24 08:50 Nose MRSA Screen - Final Complete 05/25/24 08:30 Urine - [place] Urine Culture - Final Complete 05/25/24 08:24 Blood Blood Culture - Final Streptococcus pneumoniae Complete 05/25/24 06:50 Sputum Gram Stain - Final Complete 05/25/24 06:50 Respiratory Culture - Final Presumptive Tara albicans Complete Problem List/Assessment/Plan Problem List/Assessment/Plan Septic shock Acute on chronic HFrEF, NYHA class IV, newly diagnosed Acute hypoxic respiratory failure NSTEMI, questionable Type I Mitral valve regurgitation, mild degree Hypertensive urgency Subcortical parenchymal hemorrhage Acute kidney injury on HD Morbidly obese Plan/Recommendation (Dr. Mariano) * Echocardiogram reveals EF 40% with severe concentric LVH * Nicardipine drip for blood pressure control. Titrate off as tolerated * GDMT for CHF as renal function permits. Currently on Coreg * Lipid-lowering agent. Hold single antiplatelet therapy given brain bleed * Cardiac surveillance: Monitor and notify for any ECG changes * Antibiotics per primary care team * Nephrology/Neurology recommendations * DVT/VTE prophylaxis: SCDs * * pt has poor prognosis, awaiting pt to wake up more, would recommend conservative therapy * PHARMACY TECHNICIAN TRAINEE isabel and cardiac team on consult 06/07/24 Plan discussed with: Other (rn) Dietary Evaluation Review Comments: 1) If GI is accessible consider Jevity 1.2 @ 70ml/hr x 24hr continuous feed goal rate as tolerated 2) If pt remains NPO >7 days consider TPN to meet at least 75% of estimated needs 3) Advance pt diet when medically feasible to a 2gm Sodium diet modified per ASSISTANT MANAGER AIRSIDE OPERATIONS recommendations 4) Continue current plan of care Expected Outcomes/Goals: 1) Pt to receive nutrition support within 7 days of NPO status 2) Pt diet to advance 3) F/U in 2-3 days Date of Service: Jun 06, 2024 Billing Provider: JERSON MARIANO MD Common Visit Codes: NOT BILLABLE JERSON MARIANO MD Jun 06, 2024 11:31
[2024-06-06 13:06] LABS: Vitamin D 25-Hydroxy 26 ng/mL (.); Vitamin D-2 25-Hydroxy <1.0 ng/mL (.); Vitamin D-3 25-Hydroxy 26 ng/mL (.)
--- NOTE | 2024-06-06 15:10 | DVH ---
EXAM: CT HEAD WITHOUT CONTRAST HISTORY: followup on last CT COMPARISON: CT HEAD WITHOUT CONTRAST on DOS: 06/04/24, CT HEAD WITHOUT CONTRAST on DOS: 06/03/24, CT HE AD WITHOUT CONTRAST on DOS: 05/30/24 TECHNIQUE: Axial images were obtained and reformatted in coronal and sagittal planes. All CT scans at this medical facility are performed using dose modulation techniques as appropriate t o a performed exam including the following: Automated exposure control was utilized; adjustment of th e MA and/or KV according to patient size; and use of iterative reconstruction technique. CT Dose: CTDI volume is 68.14 mGy. Dose-length product is 1228.26 mGy*cm FINDINGS: Supratentorial Region: No evidence for large acute territorial ischemia. Resolving 2 foci of subcen timeter subcortical hemorrhage in the left frontal lobe which are less conspicuous in the current exa m. Posterior Fossa: No acute abnormality. Brainstem: Unremarkable. Sellar/Suprasellar Region: Unremarkable. Ventricles, Cisterns, Sulci: Age-appropriate. Orbits: Unremarkable. Paranasal Sinuses: Fluid mixed with air noted in the bilateral sphenoid sinuses. Moderate amount of fluid in the nasopharynx. The patient is intubated. Mastoid Air Cells: Unremarkable. Vasculature: Unremarkable. Bones/Soft Tissues: No acute abnormality. Other: None. IMPRESSION: 1. The 2 foci of left frontal subcortical hemorrhage are less conspicuous in the current exam partial ly resolved. No new foci of hemorrhage.
--- NOTE | 2024-06-06 17:42 | DVHPN2 ---
Progress Note Date Seen: Jun 06, 2024 Medical Necessity Reason Pt with a Central, PICC or Fol: Yes The following are medically ne: Central Line, [place] Catheter Reason for putnam catheter: Strict I&O Subjective Patient reports: Other Review of Systems: Deferred Objective vital signs Vital Sign Date Time Temp Pulse Resp B/P (MAP) Pulse Ox O2 Delivery O2 Flow Rate FiO2 06/06/24 17:36 69 06/06/24 17:36 40 06/06/24 17:35 22 98 Mechanical Ventilator+ 06/06/24 17:15 125/63 (83) 06/06/24 16:00 98.0 98.0 Total Intake and Output 06/05/24 06/05/24 06/06/24 15:00 23:00 07:00 Intake Total 259.08 ml 201.36 ml 276.81 ml Output Total 500 ml 525 ml Balance 259.08 ml -298.64 ml -248.19 ml medications Current Medications Medications Dose Ordered Sig/Yousif Route Start Time Stop Time Status Last Admin Dose Admin Midazolam HCl 50 ml @ 1 mls/hr Q24H IV 05/25/24 06:30 05/29/24 09:11 5 MLS/HR Atorvastatin Calcium 40 mg HS NG 05/25/24 22:00 06/05/24 21:14 40 MG Ondansetron HCl 4 mg Q4HP PRN IV 05/25/24 10:45 Nitroglycerin 0.4 mg Q5MINP PRN SL 05/25/24 10:45 Albuterol 2.5 mg Q4HR NEB 05/25/24 14:00 06/06/24 14:16 2.5 MG Ipratropium [place] 0.5 mg Q4HR NEB 05/25/24 14:00 06/06/24 14:16 0.5 MG Fentanyl Citrate 250 ml @ 2.5 mls/hr Q24H IV 05/25/24 19:30 06/05/24 15:15 2.5 MLS/HR Ibuprofen 400 mg Q4HP PRN GT 05/26/24 01:15 05/26/24 01:42 400 MG Cefepime HCl 0.5 gm/Dextrose 50 ml @ 12.5 mls/hr Q24H IV 05/29/24 18:00 06/05/24 17:32 12.5 MLS/HR Enteral Nutritional Formula 1,000 ml 30ML/HR GT 05/29/24 09:45 06/05/24 15:30 1,000 ML Dexmedetomidine HCl 400 mcg/ Dextrose 100 ml @ 8.18 mls/hr [id number] IV 05/29/24 14:15 06/06/24 03:50 8.18 MLS/HR Hydralazine HCl 10 mg Q6HP PRN IV 05/29/24 16:30 06/06/24 10:37 10 MG Pantoprazole Sodium 40 mg DAILY IV 05/30/24 10:00 06/06/24 07:32 40 MG Fluconazole 100 ml @ 100 mls/hr DAILY IV 05/30/24 10:00 06/06/24 07:31 100 MLS/HR Bumetanide 2 mg BIDD IV 05/30/24 18:00 06/06/24 16:10 2 MG Epoetin Rafael-epbx 10,000 unit MWF SC 05/31/24 21:00 05/31/24 22:33 10,000 UNIT Calcium Acetate 1,334 mg Q8HR GT 06/02/24 14:00 06/06/24 12:23 1,334 MG Nicardipine HCl 250 ml @ 50 mls/hr Q5H IV 06/03/24 08:00 06/04/24 07:39 100 MLS/HR Carvedilol 25 mg Q12HR PO 06/03/24 22:00 06/06/24 09:47 25 MG Examination: GENERAL:Abnormal, MSK:Abnormal, NEURO:Abnormal laboratory and microbiology Laboratory Tests 06/06/24 03:22 Test 06/06/24 03:22 Range/Units Serum Glucose 118 H 74-106 mg/dL Microbiology Date/Time Source Procedure Growth Status 05/27/24 08:50 Nose MRSA Screen - Final Complete 05/25/24 08:30 Urine - [place] Urine Culture - Final Complete 05/25/24 08:24 Blood Blood Culture - Final Streptococcus pneumoniae Complete 05/25/24 06:50 Sputum Gram Stain - Final Complete 05/25/24 06:50 Respiratory Culture - Final Presumptive Tara albicans Complete Problem List/Assessment/Plan Problem List/Assessment/Plan Acute kidney injury likely ATN needing HD Unknown recent baseline Severe sepsis Morbid obesity Ventilator-dependent hypoxic respiratory failure recs next HD friday Plan discussed with: Other Dietary Evaluation Review Comments: 1) If GI is accessible consider Jevity 1.2 @ 70ml/hr x 24hr continuous feed goal rate as tolerated 2) If pt remains NPO >7 days consider TPN to meet at least 75% of estimated needs 3) Advance pt diet when medically feasible to a 2gm Sodium diet modified per RECOATING MACHINE OPERATOR recommendations 4) Continue current plan of care Expected Outcomes/Goals: 1) Pt to receive nutrition support within 7 days of NPO status 2) Pt diet to advance 3) F/U in 2-3 days LAN CHOWDHURY MD Jun 06, 2024 17:42
--- NOTE | 2024-06-06 19:15 | DVHPN2 ---
Reviewed: Care Plan, H&P, Labs, Medications, Previous Orders Changes from previous H/P or p: No Changes General: Per HPI Respiratory: Shortness of breath Objective Vitals Vital Signs Date Time Temp Pulse Resp B/P (MAP) Pulse Ox O2 Delivery O2 Flow Rate FiO2 06/06/24 18:15 70 22 131/68 (89) 96 06/06/24 17:36 40 06/06/24 17:35 Mechanical Ventilator+ 06/06/24 16:00 98.0 98.0 Intake/Output Intake and Output 06/06/24 07:00 Intake Total 737.25 ml Output Total 1025 ml Balance -287.75 ml Intake Oral 170 ml IV Total 427.25 ml Tube Feeding 140 ml Output Urine Total 1025 ml Stool Total 0 ml # Bowel Movements 1 General Appearance: moderate distress, Other (Patient intubated and chemically sedated.) HEENT: Atraumatic, PERRLA, Other (Patient with tongue swelling.) Lungs: Clear to auscultation, Normal air movement, Other (Mechanical ventilation) Cardiovascular: Normal S1, Normal S2 Abdomen: Normal bowel sounds, Soft, No tenderness, No hepatospenomegaly Musculoskeletal: Normal sensory function, Normal motor function Extremities: No clubbing, No cyanosis, No edema, Normal pulses, No tenderness/swelling Neuro: Normal gait, Normal speech, Strength at 5/5 X4 ext Skin: Dry, Intact Psych/Mental Status: Mental status NL, Mood NL Medications Current Medications Medications Dose Ordered Sig/Yousif Route Start Time Stop Time Status Last Admin Dose Admin Midazolam HCl 50 ml @ 1 mls/hr Q24H IV 05/25/24 06:30 05/29/24 09:11 5 MLS/HR Atorvastatin Calcium 40 mg HS NG 05/25/24 22:00 06/05/24 21:14 40 MG Ondansetron HCl 4 mg Q4HP PRN IV 05/25/24 10:45 Nitroglycerin 0.4 mg Q5MINP PRN SL 05/25/24 10:45 Albuterol 2.5 mg Q4HR NEB 05/25/24 14:00 06/06/24 18:55 2.5 MG Ipratropium [place] 0.5 mg Q4HR NEB 05/25/24 14:00 06/06/24 18:55 0.5 MG Fentanyl Citrate 250 ml @ 2.5 mls/hr Q24H IV 05/25/24 19:30 06/05/24 15:15 2.5 MLS/HR Ibuprofen 400 mg Q4HP PRN GT 05/26/24 01:15 05/26/24 01:42 400 MG Cefepime HCl 0.5 gm/Dextrose 50 ml @ 12.5 mls/hr Q24H IV 05/29/24 18:00 06/06/24 18:03 12.5 MLS/HR Enteral Nutritional Formula 1,000 ml 30ML/HR GT 05/29/24 09:45 06/05/24 15:30 1,000 ML Dexmedetomidine HCl 400 mcg/ Dextrose 100 ml @ 8.18 mls/hr [id number] IV 05/29/24 14:15 06/06/24 03:50 8.18 MLS/HR Hydralazine HCl 10 mg Q6HP PRN IV 05/29/24 16:30 06/06/24 10:37 10 MG Pantoprazole Sodium 40 mg DAILY IV 05/30/24 10:00 06/06/24 07:32 40 MG Fluconazole 100 ml @ 100 mls/hr DAILY IV 05/30/24 10:00 06/06/24 07:31 100 MLS/HR Bumetanide 2 mg BIDD IV 05/30/24 18:00 06/06/24 16:10 2 MG Epoetin Rafael-epbx 10,000 unit MWF SC 05/31/24 21:00 05/31/24 22:33 10,000 UNIT Calcium Acetate 1,334 mg Q8HR GT 06/02/24 14:00 06/06/24 12:23 1,334 MG Nicardipine HCl 250 ml @ 50 mls/hr Q5H IV 06/03/24 08:00 06/04/24 07:39 100 MLS/HR Carvedilol 25 mg Q12HR PO 06/03/24 22:00 06/06/24 09:47 25 MG Laboratory Results Laboratory Tests 06/06/24 03:22 Chemistry Test 06/06/24 03:22 Calcium Level 9.5 mg/dL (8.7-10.4) Magnesium Level 3.1 mg/dL (1.6-2.6) H Urinalysis Test 05/25/24 08:30 05/28/24 01:30 Urine Color Yellow (Yellow) Urine Clarity Clear (Clear) Urine pH 7.5 (5.0-9.0) Urine Specific [place] 1.013 (1.001-1.035) Urine Protein 2+ (Negative) H Urine Ketones Negative (Negative) Urine Blood Negative /uL (Negative) Urine Nitrite Negative (Negative) Urine Bilirubin Negative (Negative) Urine Urobilinogen 8 mg/dL (Negative) H Urine Leukocyte Esterase Negative /uL (Negative) Urine RBC 5 /hpf (0 - 4) Urine WBC 1 /hpf (0 - 5) Urine Squamous Epithelial Cells Few /hpf (<5) Urine Bacteria None seen /hpf (None Seen) Urine Glucose Normal mg/dL (Normal) Urine Creatinine 248.25 mg/dL (30.0-125.0) H Urine Sodium 27 mmol/L (40-220) L Urine Total Protein 293.2 mg/dL (1-14) H Blood Gas Results Test 06/06/24 07:47 Arterial Blood pH 7.496 (7.350-7.450) FiO2 % 45.0 Microbiology Microbiology Date/Time Source Procedure Growth Status 05/27/24 08:50 Nose MRSA Screen - Final Complete 05/25/24 08:30 Urine - [place] Urine Culture - Final Complete 05/25/24 08:24 Blood Blood Culture - Final Streptococcus pneumoniae Complete 05/25/24 06:50 Sputum Gram Stain - Final Complete 05/25/24 06:50 Respiratory Culture - Final Presumptive Tara albicans Complete Assessment/Plan Assessment/Plan Impression: -severe sepsis with shock , Streptococcus pneumoniae -probable community-acquired pneumonia with Gram-positive cocci -sepsis with Gram-positive cocci -acute hypoxic respiratory failure with mechanical ventilation -obesity -acute kidney injury, anuric -NSTEMI, probably type 2 -hypoalbuminemia -? Angioedema Plan: Events: Patient continues to be sedated. Findings of CT scan discussed by myself as well as Neurology yesterday with the family. Plans for repeat CT scan this a.m. from neurology standpoint there is no risk attempting to wake patient and pursue spontaneous breathing trial. ABG reviewed. Peep will be drop to eight. Continue to decrease FiO2 from 45% to keep saturation greater than 92%. -patient continues to be off vasopressor therapy, hemodynamically stable, white blood cell count improving, plans for spontaneous breathing trial once patient awakens -bronchodilators -continue cefepime and Diflucan -continue current ventilator settings. Patient now on 45% FiO2 -nephrology consultation: HD has been initiated -PUD, DVT prophylaxis -repeat labs, chest x-ray, ABG in a.m.. Critical care time spent with patient discussing and formulating plan of care: 40 minutes. This does not include time spent performing procedures. 06/06/2024: each time pt's secation is turned down, pt does not take a breath of her own. pt is apneic. needs to consider hospice vs Trach/PEG and LTAC Plan discussed with: Other (nursing staff) My Orders Orders - ENEDELIA CARO DO Procedure Category Date Status Time Head Without Contrast CT 06/06/24 Resulted 14:17 Complete Blood Count LAB 06/07/24 Verified 04:00 Comprehensive LAB 06/07/24 Verified Metabolic Panel 04:00 Magnesium LAB 06/07/24 Verified 04:00 Chest Portable XY 06/07/24 Logged 04:00 Date of Service: Jun 06, 2024 Billing Provider: ENEDELIA CARO DO Common Visit Codes: [id number] CARE 30-74 MIN ENEDELIA CARO DO Jun 06, 2024 19:15
--- NOTE | 2024-06-06 23:41 | DVHPN2 ---
Progress Note - Dictate Date Seen: Jun 06, 2024 Medical Necessity Reason Pt with a Central, PICC or Fol: Yes The following are medically ne: Central Line, Putnam Catheter Reason for putnam catheter: Strict I&O Subjective Patient seen and examined at bedside. intubated on mechanical ventilator. Overnight events reviewed. vital signs Vital Sign Date Time Temp Pulse Resp B/P (MAP) Pulse Ox O2 Delivery O2 Flow Rate FiO2 06/06/24 22:24 71 156/81 06/06/24 22:00 22 97 Mechanical Ventilator+ 40 40 06/06/24 19:30 99.0 99.0 Total Intake and Output 06/05/24 06/05/24 06/06/24 15:00 23:00 07:00 Intake Total 259.08 ml 201.36 ml 276.81 ml Output Total 500 ml 525 ml Balance 259.08 ml -298.64 ml -248.19 ml medications Current Medications Medications Dose Ordered Sig/Yousif Route Start Time Stop Time Status Last Admin Dose Admin Midazolam HCl 50 ml @ 1 mls/hr Q24H IV 05/25/24 06:30 05/29/24 09:11 5 MLS/HR Atorvastatin Calcium 40 mg HS NG 05/25/24 22:00 06/06/24 22:24 40 MG Ondansetron HCl 4 mg Q4HP PRN IV 05/25/24 10:45 Nitroglycerin 0.4 mg Q5MINP PRN SL 05/25/24 10:45 Albuterol 2.5 mg Q4HR NEB 05/25/24 14:00 06/06/24 22:42 2.5 MG Ipratropium [place] 0.5 mg Q4HR NEB 05/25/24 14:00 06/06/24 22:42 0.5 MG Fentanyl Citrate 250 ml @ 2.5 mls/hr Q24H IV 05/25/24 19:30 06/05/24 15:15 2.5 MLS/HR Ibuprofen 400 mg Q4HP PRN GT 05/26/24 01:15 05/26/24 01:42 400 MG Cefepime HCl 0.5 gm/Dextrose 50 ml @ 12.5 mls/hr Q24H IV 05/29/24 18:00 06/06/24 18:03 12.5 MLS/HR Enteral Nutritional Formula 1,000 ml 30ML/HR GT 05/29/24 09:45 06/05/24 15:30 1,000 ML Dexmedetomidine HCl 400 mcg/ Dextrose 100 ml @ 8.18 mls/hr [id number] IV 05/29/24 14:15 06/06/24 03:50 8.18 MLS/HR Hydralazine HCl 10 mg Q6HP PRN IV 05/29/24 16:30 06/06/24 10:37 10 MG Pantoprazole Sodium 40 mg DAILY IV 05/30/24 10:00 06/06/24 07:32 40 MG Fluconazole 100 ml @ 100 mls/hr DAILY IV 05/30/24 10:00 06/06/24 07:31 100 MLS/HR Bumetanide 2 mg BIDD IV 05/30/24 18:00 06/06/24 16:10 2 MG Epoetin Rafael-epbx 10,000 unit MWF SC 05/31/24 21:00 05/31/24 22:33 10,000 UNIT Calcium Acetate 1,334 mg Q8HR GT 06/02/24 14:00 06/06/24 22:24 1,334 MG Nicardipine HCl 250 ml @ 50 mls/hr Q5H IV 06/03/24 08:00 06/04/24 07:39 100 MLS/HR Carvedilol 25 mg Q12HR PO 06/03/24 22:00 06/06/24 22:24 25 MG objective Gen.: Patient lying in bed in medical ICU. Intubated on mechanical ventilator. Head: Normocephalic, atraumatic. Eyes: PERRLA. Ears: Normal external anatomy. Throat: Endotracheal tube and orogastric tube in place. Neck: Supple, trachea midline. Chest: Transmitted breath sounds bilaterally. Decreased air entry bilaterally. No wheezing. Bibasilar crackles. Cardiovascular: Positive S1, positive S2. Regular rate and rhythm. Abdomen: Positive bowel sounds in all 4 quadrants. Soft, nontender, nondistended. : Putnam in place. Normal external genitalia. Rectal: Deferred. Skin: Warm, dry. Intact. Extremities: 2+ radial pulses bilaterally. No lower extremity edema. Neuro: Off sedation laboratory and microbiology Laboratory Tests 06/06/24 03:22 Test 06/06/24 03:22 Range/Units Serum Glucose 118 H 74-106 mg/dL Assessment/Plan Impression: Acute hypoxic respiratory failure On mechanical ventilator Septic shock Elevated troponin Acute kidney injury Lactic acidosis Metabolic acidosis Multifocal pneumonia, likely gram negative Pulmonary edema AE COPD Events: Remains on vent support On AC mode; RR 22, VT 600, PEEP 8, FiO2 45% Off Precedex drip. Fentanyl drip for analgesia. Continue daily CPAP - pt having apneic episodes. CT head reviewed, 2 foci of left frontal subcortical hemorrhage are less conspicuous - partially resolved. No new foci of hemorrhage. Follow up Neurology recs ABG reviewed, notable for alkalemia CXR demonstrates unchanged atelectasis or pneumonia in the left lower lobe. D evices in place. Continue antibiotics/antifungal Tube feeds for nutritional support Wound care Monitor hemoglobin Hemodialysis planned for AM. Diurese w/ Bumex Monitor renal function Hemodialysis per Nephrology Echo showed EF of 40%. SBT/KAREN Awaiting for mentation to improve. CT head revealed small ICH; interval development of 2 foci of subcortical parenchymal hemorrhage in the left frontal lobe. Neurology recs appreciated. Labs and imaging reviewed. Rest of plan as noted below. Plan: s/p intubation on mechanical ventilator. On AC mode; RR 22, VT 600, PEEP 8, FiO2 45% Titrate FIO2 to keep O2 saturation above 90%. VAP bundle. Daily ABG and CXR while intubated Off sedation Off pressors, hemodynamically stable. Continue bronchodilators. Continue antibiotics. F/u cultures. Pressors if necessary to maintain a mean arterial blood pressure greater than 65 mmHg. Cardiology recs appreciated. Monitor renal function Monitor electrolytes. Supplement as necessary. Monitor ins and outs. Nephrology recs appreciated. IV fluid hydration GI prophylaxis. DVT prophylaxis. Prognosis: Poor given patient's multiple co-morbidities. Condition: Critical Rest of plan per hospitalist and other consultants. A total of 35 minutes of critical care time was spent reviewing the patient record, examining the patient, making a diagnostic and therapeutic plan, discussing this plan with the medical personnel, following up on diagnostic studies and following the patient for clinical stability excluding any and all procedures. At least 50% of this time was spent in direct, [id number] contact. Thank you, RECOVERY ANALYST [employer], for allowing me to participate in this patient's care. Further recommendations will depend on the patient's clinical course. Please do not hesitate to contact me if you have any questions or concerns. This medical document was created using an electronic medical record system with [employer] computerized dictation system. Although these documentations are being carefully reviewed, there may still be some phonetic and typographical changes. The errors are purely typographical, due to imperfection on the software program, and do not reflect any compromise in the patient's medical care. Dietary Evaluation Review Comments: 1) If GI is accessible consider Jevity 1.2 @ 70ml/hr x 24hr continuous feed goal rate as tolerated 2) If pt remains NPO >7 days consider TPN to meet at least 75% of estimated needs 3) Advance pt diet when medically feasible to a 2gm Sodium diet modified per [employer] recommendations 4) Continue current plan of care Expected Outcomes/Goals: 1) Pt to receive nutrition support within 7 days of NPO status 2) Pt diet to advance 3) F/U in 2-3 days Plan discussed with: Other (LUZMARIA Walls) Critical Care Time(min): 35 MELODY ELIZABETH MD Jun 06, 2024 23:41
[2024-06-07] VITALS (108 sets, daily range): BP systolic 91–214; BP diastolic 53–117; PULSE 62–93; RESP 20–46; TEMP 97.9–98.4; O2SAT 90–100
[2024-06-07 03:57] LABS: Basophils # (auto) 0 10 ^3/uL (0-0.2); Basophils % (auto) 0.1 % (0.0-2.0); Eosinophils # (auto) 0.2 10 ^3/uL (0-0.8); Eosinophils % (auto) 0.9 % (0.0-7.0); Hematocrit 29.1 % (36.0-46.0); Hemoglobin 9.4 g/dL (12.2-16.2); Lymphocytes # (auto) 0.8 10 ^3/uL (0.4-5.4); Lymphocytes % (auto) 4.2 % (10.0-50.0); Mean Corpuscular Hemoglobin 29.6 pg (28.0-32.0); Mean Corpuscular Hgb Conc. 32.2 g/dL (32.0-36.0); Mean Corpuscular Volume 91.8 fL (80.0-100.0); Monocytes # (auto) 1.1 10 ^3/uL (0-1.3); Monocytes % (auto) 5.4 % (0.0-12.0); Neutrophils # (auto) 17.5 10 ^3/uL (1.6-8.6); Neutrophils % (auto) 89.4 % (37.0-80.0); Platelet Count (auto) 228 10^3/uL (140-450); Red Blood Cells 3.17 10^6/uL (4.0-5.20); White Blood Cell 19.6 10^3/uL (4.4-10.8)
[2024-06-07 04:39] LABS: Albumin 3.5 g/dL (3.2-4.8); Alkaline Phosphatase 93 U/L (46-116); Anion Gap 18 (5-15); Bilirubin, Total 0.9 mg/dL (0.2-1.0); Calcium 9.4 mg/dL (8.7-10.4); Carbon Dioxide 22 mmol/L (20-31); Chloride 101 mmol/L (98-107); Potassium 4.6 mmol/L (3.5-5.1); Sodium 141 mmol/L (136-145); Total Protein 6.8 g/dL (5.7-8.2)
[2024-06-07 04:46] LABS: BUN/Creatinine Ratio 22.8 (10.0-20.0)
[2024-06-07 04:52] LABS: Alanine Aminotransferase 464 U/L (7-40); Aspartate Aminotransferase 139 U/L (13-40); Glucose 118 mg/dL (74-106); Magnesium 3.3 mg/dL (1.6-2.6)
[2024-06-07 04:59] LABS: Blood Urea Nitrogen 150 mg/dL (9-23)
--- NOTE | 2024-06-07 05:11 | DVH ---
CHEST RADIOGRAPH Indication: intubated Technique: Single frontal view of the chest was obtained Comparison: XY CHEST PORTABLE on DOS: 06/06/24 FINDINGS: Lines and Tubes: Endotracheal tube terminates 6.9 cm above the nik. Left central venous catheter t erminates in the superior cavoatrial junction. The enteric tube terminates in the stomach. Lungs: Mild bilateral opacities similar to prior study. Pleura: No effusion. No pneumothorax. Cardiomediastinal contours: Cardiomegaly. Bones: No acute osseous abnormality. IMPRESSION: 1. No significant interval change.
--- NOTE | 2024-06-07 08:30 | DVHPN2 ---
Consult Progress Note Date Seen: Jun 07, 2024 Subjective Other Systems: No overnight cardiac events reported Objective vital signs Vital Sign Date Time Temp Pulse Resp B/P (MAP) Pulse Ox O2 Delivery O2 Flow Rate FiO2 06/07/24 07:12 72 22 110/67 (81) 94 40 06/07/24 06:00 Mechanical Ventilator+ 06/07/24 04:30 98.0 98.0 Total Intake and Output 06/06/24 06/06/24 06/07/24 15:00 23:00 07:00 Intake Total 170.67 ml 150.0 ml 250.8 ml Output Total 550 ml 1100 ml Balance 170.67 ml -400.0 ml -849.2 ml medications Current Medications Medications Dose Ordered Sig/Yousif Route Start Time Stop Time Status Last Admin Dose Admin Midazolam HCl 50 ml @ 1 mls/hr Q24H IV 05/25/24 06:30 05/29/24 09:11 5 MLS/HR Atorvastatin Calcium 40 mg HS NG 05/25/24 22:00 06/06/24 22:24 40 MG Ondansetron HCl 4 mg Q4HP PRN IV 05/25/24 10:45 Nitroglycerin 0.4 mg Q5MINP PRN SL 05/25/24 10:45 Albuterol 2.5 mg Q4HR NEB 05/25/24 14:00 06/07/24 05:51 2.5 MG Ipratropium [place] 0.5 mg Q4HR NEB 05/25/24 14:00 06/07/24 05:51 0.5 MG Fentanyl Citrate 250 ml @ 2.5 mls/hr Q24H IV 05/25/24 19:30 06/05/24 15:15 2.5 MLS/HR Ibuprofen 400 mg Q4HP PRN GT 05/26/24 01:15 05/26/24 01:42 400 MG Cefepime HCl 0.5 gm/Dextrose 50 ml @ 12.5 mls/hr Q24H IV 05/29/24 18:00 06/06/24 18:03 12.5 MLS/HR Enteral Nutritional Formula 1,000 ml 30ML/HR GT 05/29/24 09:45 06/05/24 15:30 1,000 ML Dexmedetomidine HCl 400 mcg/ Dextrose 100 ml @ 8.18 mls/hr [id number] IV 05/29/24 14:15 06/07/24 03:59 8.18 MLS/HR Hydralazine HCl 10 mg Q6HP PRN IV 05/29/24 16:30 06/07/24 04:41 10 MG Pantoprazole Sodium 40 mg DAILY IV 05/30/24 10:00 06/06/24 07:32 40 MG Fluconazole 100 ml @ 100 mls/hr DAILY IV 05/30/24 10:00 06/06/24 07:31 100 MLS/HR Bumetanide 2 mg BIDD IV 05/30/24 18:00 06/07/24 05:35 2 MG Epoetin Rafael-epbx 10,000 unit MWF SC 05/31/24 21:00 05/31/24 22:33 10,000 UNIT Calcium Acetate 1,334 mg Q8HR GT 06/02/24 14:00 06/07/24 05:35 1,334 MG Nicardipine HCl 250 ml @ 50 mls/hr Q5H IV 06/03/24 08:00 06/04/24 07:39 100 MLS/HR Carvedilol 25 mg Q12HR PO 06/03/24 22:00 06/06/24 22:24 25 MG Examination: GENERAL:Abnormal, LUNGS:Abnormal (Mechanically ventilated 40% FiO2), CVS:Normal (NSR. Off vasopressors), NEURO:Normal (Off sedation. +gag reflex. Reactive bilateral pupils) laboratory and microbiology Laboratory Tests 06/07/24 03:20 Test 06/07/24 03:20 Range/Units Serum Glucose 118 H 74-106 mg/dL Problem List/Assessment/Plan Problem List/Assessment/Plan Septic shock Acute on chronic HFrEF, NYHA class IV, newly diagnosed Acute hypoxic respiratory failure NSTEMI, questionable Type I Mitral valve regurgitation, mild degree Hypertensive urgency Subcortical parenchymal hemorrhage Acute kidney injury on HD Morbidly obese Plan/Recommendation (Dr. Zamudio) * Echocardiogram revealed EF 40% with severe concentric LVH * GDMT for CHF as renal function permits. Currently on Coreg * Lipid-lowering agent. Hold single antiplatelet therapy given brain bleed * Cardiac surveillance: Monitor and notify for any ECG changes * Antibiotics per primary care team * Nephrology/Neurology recommendations * DVT/VTE prophylaxis: SCDs Ischemic cardiac work-up will be placed on hold given abnormal head CT findings. We will further consider once patient's neurological status is determined to be intact. Thank you for allowing us to care for this patient. Please call with any questions or concerns. Critical care time spent: 30 minutes. This medical document was created using an electronic medical record system with voice recognition software and computerized dictation system. Although this document has been carefully reviewed, there might still be some phonetic and typographical errors. Occasional wrong-word or ``sound-alike substitutions may have occurred due to the inherent limitations of voice recognition software. These areas are purely typographical due to imperfections of the software programs and do not reflect any compromise in the patient's medical care. Please read the chart carefully and recognize, using context, where these substitutions have occurred. Plan discussed with: Other Dietary Evaluation Review Comments: 1) If GI is accessible consider Jevity 1.2 @ 70ml/hr x 24hr continuous feed goal rate as tolerated 2) If pt remains NPO >7 days consider TPN to meet at least 75% of estimated needs 3) Advance pt diet when medically feasible to a 2gm Sodium diet modified per [employer]ER recommendations 4) Continue current plan of care Expected Outcomes/Goals: 1) Pt to receive nutrition support within 7 days of NPO status 2) Pt diet to advance 3) F/U in 2-3 days Date of Service: Jun 07, 2024 Billing Provider: CJ BENSON MD Cardiology Common Codes: [id number] CARE 30-74 MIN SARAH MONCADA KITCHEN RUNNER Jun 07, 2024 08:30
--- NOTE | 2024-06-07 10:42 | DVHPN2 ---
Progress Note - Dictate Date Seen: Jun 07, 2024 Medical Necessity Reason Pt with a Central, PICC or Fol: Yes The following are medically ne: Central Line, Putnam Catheter Reason for putnam catheter: Strict I&O Subjective Ms. Pandya is a 53 years old right-handed female with a history of morbid obesity, hypertension, the patient was was brought to the [facility] on 05/25/24 with a chief company of altered mental status, respiratory distress. I have seen and examined the patient, I have talked to her nurse, she was intubated, sedated, only stool stroke painful stimuli She had elevated blood pressure and tachypnea overnight when she was on fentanyl Precedex 0.3 units/hour per kg Urine culture, 05/25/2024: Negative Blood culture, 05/25/2024: Streptococcus pneumoniae UDS, 05/25/2024: Negative Urinalysis, 05/25/2024: WBC: 1, urine leukocyte esterase: Negative ABG, 05/25/2024: Metabolic acidosis, hypoxia, 05/26/2024: Metabolic acidosis, hypoxia, 05/27/24: Metabolic acidosis, hypoxia WBC/HB/PLT/MCV, 06/02/2024: 22.4/9/342/89.4 BUN/CR, 05/26/2024: 62/7.01 06/02/2024: 123/6.59 HGB A1c, 05/25/2024: 5.6 Lactic acid, 05/25/2024: 3.6, 4.6, 4.2, 05/26/2024: 3.6 Troponin one high sensitivity, 05/25/2024: 1060, 1354, 1262 TBI/AST/ALT/AP, 05/26/2024: 2/246/167/98 TG/HDL/LDL/HDL, 05/25/2024: 192/98/40/8 Vitamin B12, 06/02/2024: 836 TSH, 05/25/2024: 0.57 Chest x-ray, 05/25/2024: 1. Distal tip of the endotracheal tube is approximately 5.5 cm above the level of the nik. 2. Poorly visualized enteric tube at its distal aspect. Appears to reach the gastroesophageal junction, although not visualized distal to this point. Correlate with clinical findings. 3. Bilateral airspace opacities and interstitial opacities, may be due to multifocal pneumonia or pulmonary edema in the appropriate clinical setting CT head, 05/25/2024: No gross acute intracranial process CT head, 06/02/24: 1. Interval development of 2 foci of subcortical parenchymal hemorrhage in the left frontal lobe. No mass effect or midline shift. 2. Moderate amount of fluid in the posterior nasopharynx likely related to intubation. Recommend suctioning to prevent aspiration. 3. Small bilateral mastoid effusions. We are in the process of reaching out to the nurse or physician in charge of the patient to convey the findings. CT head, 06/04/2024: Redemonstrated are 2 hyperdense foci in the subcortical left frontal lobe which may represent small foci of parenchymal hemorrhage. There is no significant surrounding edema or associated mass effect CT head, 06/06/2024: The 2 foci of left frontal subcortical hemorrhage are less conspicuous in the current exam partially resolved. No new foci of hemorrhage vital signs Vital Sign Date Time Temp Pulse Resp B/P (MAP) Pulse Ox O2 Delivery O2 Flow Rate FiO2 06/07/24 09:45 72 22 186/99 (128) 97 40 06/07/24 06:00 Mechanical Ventilator+ 06/07/24 04:30 98.0 98.0 Total Intake and Output 06/06/24 06/06/24 06/07/24 15:00 23:00 07:00 Intake Total 170.67 ml 150.0 ml 250.8 ml Output Total 550 ml 1100 ml Balance 170.67 ml -400.0 ml -849.2 ml medications Current Medications Medications Dose Ordered Sig/Yousif Route Start Time Stop Time Status Last Admin Dose Admin Midazolam HCl 50 ml @ 1 mls/hr Q24H IV 05/25/24 06:30 05/29/24 09:11 5 MLS/HR Atorvastatin Calcium 40 mg HS NG 05/25/24 22:00 06/06/24 22:24 40 MG Ondansetron HCl 4 mg Q4HP PRN IV 05/25/24 10:45 Nitroglycerin 0.4 mg Q5MINP PRN SL 05/25/24 10:45 Albuterol 2.5 mg Q4HR NEB 05/25/24 14:00 06/07/24 05:51 2.5 MG Ipratropium [place] 0.5 mg Q4HR NEB 05/25/24 14:00 06/07/24 05:51 0.5 MG Fentanyl Citrate 250 ml @ 2.5 mls/hr Q24H IV 05/25/24 19:30 06/05/24 15:15 2.5 MLS/HR Ibuprofen 400 mg Q4HP PRN GT 05/26/24 01:15 05/26/24 01:42 400 MG Cefepime HCl 0.5 gm/Dextrose 50 ml @ 12.5 mls/hr Q24H IV 05/29/24 18:00 06/06/24 18:03 12.5 MLS/HR Enteral Nutritional Formula 1,000 ml 30ML/HR GT 05/29/24 09:45 06/05/24 15:30 1,000 ML Dexmedetomidine HCl 400 mcg/ Dextrose 100 ml @ 8.18 mls/hr [id number] IV 05/29/24 14:15 06/07/24 03:59 8.18 MLS/HR Hydralazine HCl 10 mg Q6HP PRN IV 05/29/24 16:30 06/07/24 04:41 10 MG Pantoprazole Sodium 40 mg DAILY IV 05/30/24 10:00 06/07/24 09:11 40 MG Fluconazole 100 ml @ 100 mls/hr DAILY IV 05/30/24 10:00 06/07/24 09:11 100 MLS/HR Bumetanide 2 mg BIDD IV 05/30/24 18:00 06/07/24 05:35 2 MG Epoetin Rafael-epbx 10,000 unit MWF SC 05/31/24 21:00 06/07/24 09:15 10,000 UNIT Calcium Acetate 1,334 mg Q8HR GT 06/02/24 14:00 06/07/24 05:35 1,334 MG Nicardipine HCl 250 ml @ 50 mls/hr Q5H IV 06/03/24 08:00 06/04/24 07:39 100 MLS/HR Carvedilol 25 mg Q12HR PO 06/03/24 22:00 06/07/24 09:14 25 MG objective The patient is well-nourished and well-developed with no distress. The patient is intubated MENTAL STATUS: Subjective CRANIAL NERVES: Pupils are equal, round and reactive.There are corneal reflexes and conjugated eye movement. No signs of facial weakness. There are gagging or coughing reflexes SENSATION: Okay to painful stimuli MOTOR: Normal tone in the upper and lower extremity. Normal muscle bulk. No fasciculations. No spontaneous movement. REFLEXES: Deep tendon reflexes are symmetrical. No pathological reflexes. CEREBELLAR/COORDINATION: Deferred GAIT/STATION: deferred. laboratory and microbiology Laboratory Tests 06/07/24 03:20 Test 06/07/24 03:20 Range/Units Serum Glucose 118 H 74-106 mg/dL Problem List Altered mental status/Coma Hypoxic encephalopathy secondary to respiratory failure Metabolic encephalopathy secondary to acidosis, sepsis, septic shock, kidney failure Heart attack Pneumonia Sepsis, septic shock Acute on chronic kidney failure Acute petechial hemorrhage in the left frontal lobe, improving on follow-up CT Assessment/Plan Monitoring Supportive treatment ICU care Follow-up labs EEG Stabilize vitals Respiratory support/vent management Oxygen IV antibiotics GI prophylaxis/Protonix DVT prophylaxis/heparin Nephrology on case Pulmonology on case More recommendation per clinical course This medical document was created using an electronic medical record system with [employer] dictation system. Although this document has been carefully reviewed, there may still be some phonetic and typographical errors. These areas are purely typographical due to imperfections of the software programs, and do not reflect any compromise in the patient's medical care Prognosis guarded Dietary Evaluation Review Comments: 1) If GI is accessible consider Jevity 1.2 @ 70ml/hr x 24hr continuous feed goal rate as tolerated 2) If pt remains NPO >7 days consider TPN to meet at least 75% of estimated needs 3) Advance pt diet when medically feasible to a 2gm Sodium diet modified per [employer] recommendations 4) Continue current plan of care Expected Outcomes/Goals: 1) Pt to receive nutrition support within 7 days of NPO status 2) Pt diet to advance 3) F/U in 2-3 days Plan discussed with: Other Critical Care Time(min): 35 PILAR HOOD MD Jun 07, 2024 10:42
[2024-06-07 12:29] LABS: Base Excess 0.9 mmol/L (-2.0-3.0)
--- NOTE | 2024-06-07 15:59 | DVHPN2 ---
Progress Note Date Seen: Jun 07, 2024 Medical Necessity Reason Pt with a Central, PICC or Fol: Yes The following are medically ne: Central Line, Putnam Catheter Reason for putnam catheter: Strict I&O Subjective Review of Systems: RESPIRATORY:Abnormal Other Systems: Patient seen and examined by myself on HD, BP stable Patient intubated on ventilator Objective vital signs Vital Sign Date Time Temp Pulse Resp B/P (MAP) Pulse Ox O2 Delivery O2 Flow Rate FiO2 06/07/24 13:36 75 22 149/91 (110) 96 40 06/07/24 12:00 98.4 98.4 06/07/24 12:00 Mechanical Ventilator+ Total Intake and Output 06/06/24 06/06/24 06/07/24 15:00 23:00 07:00 Intake Total 170.67 ml 150.0 ml 265.57 ml Output Total 550 ml 1100 ml Balance 170.67 ml -400.0 ml -834.43 ml medications Current Medications Medications Dose Ordered Sig/Yousif Route Start Time Stop Time Status Last Admin Dose Admin Midazolam HCl 50 ml @ 1 mls/hr Q24H IV 05/25/24 06:30 05/29/24 09:11 5 MLS/HR Atorvastatin Calcium 40 mg HS NG 05/25/24 22:00 06/06/24 22:24 40 MG Ondansetron HCl 4 mg Q4HP PRN IV 05/25/24 10:45 Nitroglycerin 0.4 mg Q5MINP PRN SL 05/25/24 10:45 Albuterol 2.5 mg Q4HR NEB 05/25/24 14:00 06/07/24 14:09 2.5 MG Ipratropium [place] 0.5 mg Q4HR NEB 05/25/24 14:00 06/07/24 14:09 0.5 MG Fentanyl Citrate 250 ml @ 2.5 mls/hr Q24H IV 05/25/24 19:30 06/05/24 15:15 2.5 MLS/HR Ibuprofen 400 mg Q4HP PRN GT 05/26/24 01:15 05/26/24 01:42 400 MG Cefepime HCl 0.5 gm/Dextrose 50 ml @ 12.5 mls/hr Q24H IV 05/29/24 18:00 06/06/24 18:03 12.5 MLS/HR Enteral Nutritional Formula 1,000 ml 30ML/HR GT 05/29/24 09:45 06/05/24 15:30 1,000 ML Dexmedetomidine HCl 400 mcg/ Dextrose 100 ml @ 8.18 mls/hr [id number] IV 05/29/24 14:15 06/07/24 03:59 8.18 MLS/HR Hydralazine HCl 10 mg Q6HP PRN IV 05/29/24 16:30 06/07/24 04:41 10 MG Pantoprazole Sodium 40 mg DAILY IV 05/30/24 10:00 06/07/24 09:11 40 MG Fluconazole 100 ml @ 100 mls/hr DAILY IV 05/30/24 10:00 06/07/24 09:11 100 MLS/HR Bumetanide 2 mg BIDD IV 05/30/24 18:00 06/07/24 05:35 2 MG Epoetin Rafael-epbx 10,000 unit MWF SC 05/31/24 21:00 06/07/24 09:15 10,000 UNIT Calcium Acetate 1,334 mg Q8HR GT 06/02/24 14:00 06/07/24 13:46 1,334 MG Nicardipine HCl 250 ml @ 50 mls/hr Q5H IV 06/03/24 08:00 06/04/24 07:39 100 MLS/HR Carvedilol 25 mg Q12HR PO 06/03/24 22:00 06/07/24 09:14 25 MG Examination: LUNGS:Normal, CVS:Normal, MSK:Normal laboratory and microbiology Laboratory Tests 06/07/24 03:20 Test 06/07/24 03:20 Range/Units Serum Glucose 118 H 74-106 mg/dL Microbiology Date/Time Source Procedure Growth Status 05/27/24 08:50 Nose MRSA Screen - Final Complete 05/25/24 08:30 Urine - Putnam [place] Urine Culture - Final Complete 05/25/24 08:24 Blood Blood Culture - Final Streptococcus pneumoniae Complete 05/25/24 06:50 Sputum Gram Stain - Final Complete 05/25/24 06:50 Respiratory Culture - Final Presumptive Tara albicans Complete Problem List/Assessment/Plan Problem List/Assessment/Plan CHANG superimposed on CKD secondary to ATN needing HD Acute respiratory failure, intubated on ventilator Septic shock CHF, Ef 40% Morbid obesity Anemia of CKD REC: Continue with UF 2-3 L as tolerated MAMIE with HD IV pressors for BP support IV Abx Will continue to follow Plan discussed with: Other (nurse) My Orders My Orders Orders - MARIELA JONES MD Procedure Category Date Status Time Communication Order ORDERS 06/07/24 Transmitted 06:34 Dietary Evaluation Review Comments: 1) If GI is accessible consider Jevity 1.2 @ 70ml/hr x 24hr continuous feed goal rate as tolerated 2) If pt remains NPO >7 days consider TPN to meet at least 75% of estimated needs 3) Advance pt diet when medically feasible to a 2gm Sodium diet modified per [employer] recommendations 4) Continue current plan of care Expected Outcomes/Goals: 1) Pt to receive nutrition support within 7 days of NPO status 2) Pt diet to advance 3) F/U in 2-3 days MARIELA JONES MD Jun 07, 2024 15:59
--- NOTE | 2024-06-07 19:40 | DVHPN2 ---
Progress Note - Dictate Date Seen: Jun 07, 2024 Medical Necessity Reason Pt with a Central, PICC or Fol: Yes The following are medically ne: Central Line, Putnam Catheter Reason for putnam catheter: Strict I&O Subjective Patient seen and examined at bedside. intubated on mechanical ventilator. Overnight events reviewed. vital signs Vital Sign Date Time Temp Pulse Resp B/P (MAP) Pulse Ox O2 Delivery O2 Flow Rate FiO2 06/07/24 19:15 79 22 139/74 (95) 94 06/07/24 17:54 Mechanical Ventilator+ 40 40 06/07/24 16:00 97.9 97.9 Total Intake and Output 06/06/24 06/06/24 06/07/24 15:00 23:00 07:00 Intake Total 170.67 ml 150.0 ml 265.57 ml Output Total 550 ml 1100 ml Balance 170.67 ml -400.0 ml -834.43 ml medications Current Medications Medications Dose Ordered Sig/Yousif Route Start Time Stop Time Status Last Admin Dose Admin Midazolam HCl 50 ml @ 1 mls/hr Q24H IV 05/25/24 06:30 05/29/24 09:11 5 MLS/HR Atorvastatin Calcium 40 mg HS NG 05/25/24 22:00 06/06/24 22:24 40 MG Ondansetron HCl 4 mg Q4HP PRN IV 05/25/24 10:45 Nitroglycerin 0.4 mg Q5MINP PRN SL 05/25/24 10:45 Albuterol 2.5 mg Q4HR NEB 05/25/24 14:00 06/07/24 14:09 2.5 MG Ipratropium [place] 0.5 mg Q4HR NEB 05/25/24 14:00 06/07/24 14:09 0.5 MG Fentanyl Citrate 250 ml @ 2.5 mls/hr Q24H IV 05/25/24 19:30 06/05/24 15:15 2.5 MLS/HR Ibuprofen 400 mg Q4HP PRN GT 05/26/24 01:15 05/26/24 01:42 400 MG Cefepime HCl 0.5 gm/Dextrose 50 ml @ 12.5 mls/hr Q24H IV 05/29/24 18:00 06/07/24 18:18 12.5 MLS/HR Enteral Nutritional Formula 1,000 ml 30ML/HR GT 05/29/24 09:45 06/05/24 15:30 1,000 ML Dexmedetomidine HCl 400 mcg/ Dextrose 100 ml @ 8.18 mls/hr [id number] IV 05/29/24 14:15 06/07/24 17:27 16.36 MLS/HR Hydralazine HCl 10 mg Q6HP PRN IV 05/29/24 16:30 06/07/24 04:41 10 MG Pantoprazole Sodium 40 mg DAILY IV 05/30/24 10:00 06/07/24 09:11 40 MG Bumetanide 2 mg BIDD IV 05/30/24 18:00 06/07/24 17:42 2 MG Epoetin Rafael-epbx 10,000 unit MWF SC 05/31/24 21:00 06/07/24 09:15 10,000 UNIT Calcium Acetate 1,334 mg Q8HR GT 06/02/24 14:00 06/07/24 13:46 1,334 MG Nicardipine HCl 250 ml @ 50 mls/hr Q5H IV 06/03/24 08:00 06/07/24 17:26 50 MLS/HR Carvedilol 25 mg Q12HR PO 06/03/24 22:00 06/07/24 09:14 25 MG objective Gen.: Patient lying in bed in medical ICU. Intubated on mechanical ventilator. Head: Normocephalic, atraumatic. Eyes: PERRLA. Ears: Normal external anatomy. Throat: Endotracheal tube and orogastric tube in place. Neck: Supple, trachea midline. Chest: Transmitted breath sounds bilaterally. Decreased air entry bilaterally. No wheezing. Bibasilar crackles. Cardiovascular: Positive S1, positive S2. Regular rate and rhythm. Abdomen: Positive bowel sounds in all 4 quadrants. Soft, nontender, nondistended. : Putnam in place. Normal external genitalia. Rectal: Deferred. Skin: Warm, dry. Intact. Extremities: 2+ radial pulses bilaterally. No lower extremity edema. Neuro: Off sedation laboratory and microbiology Laboratory Tests 06/07/24 03:20 Test 06/07/24 03:20 Range/Units Serum Glucose 118 H 74-106 mg/dL Assessment/Plan Impression: Acute hypoxic respiratory failure On mechanical ventilator Septic shock Elevated troponin Acute kidney injury Lactic acidosis Metabolic acidosis Multifocal pneumonia, likely gram negative Pulmonary edema AE COPD Events: Remains on vent support On AC mode; RR 22, VT 600, PEEP 8, FiO2 45 -->40% Angioedema is improved. On Precedex drip. CT head on 06/06/24 revealed the two foci of left frontal subcortical hemorrhage are less conspicuous - partially resolved. No new foci of hemorrhage. Neurology recs appreciated. ABG reviewed, compensated CXR demonstrates cardiomegaly. Mild bilateral opacities. No effusion or pneumothorax. Devices in place. Continue antibiotics - change cefepime to Levaquin Continue antifungal Tube feeds for nutritional support Wound care Monitor hemoglobin Diurese w/ Bumex Monitor renal function Hemodialysis per Nephrology Echo showed EF of 40%. SBT/KAREN Awaiting for mentation to improve. Off sedation; becomes hypertensive. Consider trach/PEG for liberation from vent if family wishes for aggressive care. Labs and imaging reviewed. Rest of plan as noted below. Plan: s/p intubation on mechanical ventilator. On AC mode; RR 22, VT 600, PEEP 8, FiO2 40% Titrate FIO2 to keep O2 saturation above 90%. VAP bundle. Daily ABG and CXR while intubated Off sedation Off pressors, hemodynamically stable. Continue bronchodilators. Continue antibiotics. F/u cultures. Pressors if necessary to maintain a mean arterial blood pressure greater than 65 mmHg. Cardiology recs appreciated. Monitor renal function Monitor electrolytes. Supplement as necessary. Monitor ins and outs. Nephrology recs appreciated. IV fluid hydration GI prophylaxis. DVT prophylaxis. Prognosis: Poor given patient's multiple co-morbidities. Condition: Critical Rest of plan per hospitalist and other consultants. A total of 35 minutes of critical care time was spent reviewing the patient record, examining the patient, making a diagnostic and therapeutic plan, discussing this plan with the medical personnel, following up on diagnostic studies and following the patient for clinical stability excluding any and all procedures. At least 50% of this time was spent in direct, [id number] contact. Thank you, MIRNA Stratton, for allowing me to participate in this patient's care. Further recommendations will depend on the patient's clinical course. Please do not hesitate to contact me if you have any questions or concerns. This medical document was created using an electronic medical record system with [employer] dictation system. Although these documentations are being carefully reviewed, there may still be some phonetic and typographical changes. The errors are purely typographical, due to imperfection on the software program, and do not reflect any compromise in the patient's medical care. Dietary Evaluation Review Comments: 1) If GI is accessible consider Jevity 1.2 @ 70ml/hr x 24hr continuous feed goal rate as tolerated 2) If pt remains NPO >7 days consider TPN to meet at least 75% of estimated needs 3) Advance pt diet when medically feasible to a 2gm Sodium diet modified per [employer] recommendations 4) Continue current plan of care Expected Outcomes/Goals: 1) Pt to receive nutrition support within 7 days of NPO status 2) Pt diet to advance 3) F/U in 2-3 days Plan discussed with: Other (LUZMARIA Fuller/Kassy arevalo) Critical Care Time(min): 35 MELODY ELIZABETH MD Jun 07, 2024 19:40
[2024-06-08] VITALS (106 sets, daily range): BP systolic 91–236; BP diastolic 51–101; PULSE 66–117; RESP 19–50; TEMP 98.2–99.1; O2SAT 91–99
[2024-06-08 03:51] LABS: Basophils # (auto) 0.1 10 ^3/uL (0-0.2); Basophils % (auto) 0.5 % (0.0-2.0); Eosinophils # (auto) 0.2 10 ^3/uL (0-0.8); Eosinophils % (auto) 0.8 % (0.0-7.0); Hematocrit 28.7 % (36.0-46.0); Hemoglobin 9.4 g/dL (12.2-16.2); Lymphocytes # (auto) 1.1 10 ^3/uL (0.4-5.4); Mean Corpuscular Hemoglobin 29.6 pg (28.0-32.0); Mean Corpuscular Hgb Conc. 32.6 g/dL (32.0-36.0); Mean Corpuscular Volume 90.9 fL (80.0-100.0); Monocytes # (auto) 1.3 10 ^3/uL (0-1.3); Monocytes % (auto) 6.9 % (0.0-12.0); Neutrophils # (auto) 16.1 10 ^3/uL (1.6-8.6); Neutrophils % (auto) 85.8 % (37.0-80.0); Nucleated Red Blood Cells % 0.1 %; Platelet Count (auto) 214 10^3/uL (140-450); Red Blood Cells 3.16 10^6/uL (4.0-5.20); Red Cell Distribution Width 15.8 % (11.8-14.3); White Blood Cell 18.8 10^3/uL (4.4-10.8)
[2024-06-08 03:55] LABS: Calcium 9.8 mg/dL (8.7-10.4); Chloride 100 mmol/L (98-107); Potassium 4.7 mmol/L (3.5-5.1); Sodium 140 mmol/L (136-145)
[2024-06-08 03:56] LABS: Anion Gap 16 (5-15); Carbon Dioxide 24 mmol/L (20-31)
[2024-06-08 04:01] LABS: BUN/Creatinine Ratio 20.1 (10.0-20.0)
[2024-06-08 04:05] LABS: Glucose 113 mg/dL (74-106)
[2024-06-08 04:07] LABS: Blood Urea Nitrogen 122 mg/dL (9-23)
--- NOTE | 2024-06-08 05:19 | DVH ---
CHEST RADIOGRAPH Indication: intubated Technique: Single frontal view of the chest was obtained Comparison: XY CHEST PORTABLE on DOS: 06/07/24 FINDINGS: Lines and Tubes: The endotracheal tube terminates 7.3 cm above the nik. Left central venous roel ter terminates in the superior vena cava. The enteric tube courses below the left hemidiaphragm and t he tip extends outside the field of view. Lungs: Bilateral airspace disease, stable. Pleura: No effusion. No pneumothorax. Cardiomediastinal contours: Cardiomegaly, stable. Bones: No acute osseous abnormality. IMPRESSION: 1. Stable position of the support lines and tubes. 2. No significant interval change in bilateral airspace disease and cardiomegaly.
[2024-06-08 08:21] LABS: Base Excess -3.2 mmol/L (-2.0-3.0)
--- NOTE | 2024-06-08 09:03 | DVHPN2 ---
Subjective Patient still encephalopathic. Reviewed: Care Plan, H&P, Labs, Medications, Previous Orders Changes from previous H/P or p: No Changes General: Per HPI Respiratory: Shortness of breath Objective Vitals Vital Signs Date Time Temp Pulse Resp B/P (MAP) Pulse Ox O2 Delivery O2 Flow Rate FiO2 06/08/24 07:45 93 22 165/87 (113) 95 30 06/08/24 06:00 Mechanical Ventilator+ 06/08/24 04:30 98.2 98.2 Intake/Output Intake and Output 06/08/24 07:00 Intake Total 645.40 ml Output Total 650 ml Balance -4.60 ml Intake Oral 160 ml IV Total 420.40 ml Tube Feeding 65 ml Output Urine Total 650 ml General Appearance: moderate distress, Other (Patient intubated and chemically sedated.) HEENT: Atraumatic, PERRLA, Other (Patient with tongue swelling.) Lungs: Clear to auscultation, Normal air movement, Other (Mechanical ventilation) Cardiovascular: Normal S1, Normal S2 Abdomen: Normal bowel sounds, Soft, No tenderness, No hepatospenomegaly Musculoskeletal: Normal sensory function, Normal motor function Extremities: No clubbing, No cyanosis, No edema, Normal pulses, No tenderness/swelling Neuro: Normal gait, Normal speech, Strength at 5/5 X4 ext Skin: Dry, Intact Psych/Mental Status: Mental status NL, Mood NL Medications Current Medications Medications Dose Ordered Sig/Yousif Route Start Time Stop Time Status Last Admin Dose Admin Midazolam HCl 50 ml @ 1 mls/hr Q24H IV 05/25/24 06:30 05/29/24 09:11 5 MLS/HR Atorvastatin Calcium 40 mg HS NG 05/25/24 22:00 06/07/24 22:50 40 MG Ondansetron HCl 4 mg Q4HP PRN IV 05/25/24 10:45 Nitroglycerin 0.4 mg Q5MINP PRN SL 05/25/24 10:45 Albuterol 2.5 mg Q4HR NEB 05/25/24 14:00 06/08/24 06:44 2.5 MG Ipratropium [place] 0.5 mg Q4HR NEB 05/25/24 14:00 06/08/24 06:44 0.5 MG Fentanyl Citrate 250 ml @ 2.5 mls/hr Q24H IV 05/25/24 19:30 06/05/24 15:15 2.5 MLS/HR Ibuprofen 400 mg Q4HP PRN GT 05/26/24 01:15 05/26/24 01:42 400 MG Cefepime HCl 0.5 gm/Dextrose 50 ml @ 12.5 mls/hr Q24H IV 05/29/24 18:00 06/07/24 18:18 12.5 MLS/HR Enteral Nutritional Formula 1,000 ml 30ML/HR GT 05/29/24 09:45 06/05/24 15:30 1,000 ML Dexmedetomidine HCl 400 mcg/ Dextrose 100 ml @ 8.18 mls/hr [id number] IV 05/29/24 14:15 06/08/24 06:57 8.18 MLS/HR Hydralazine HCl 10 mg Q6HP PRN IV 05/29/24 16:30 06/07/24 04:41 10 MG Pantoprazole Sodium 40 mg DAILY IV 05/30/24 10:00 06/07/24 09:11 40 MG Bumetanide 2 mg BIDD IV 05/30/24 18:00 06/08/24 06:13 2 MG Epoetin Rafael-epbx 10,000 unit MWF SC 05/31/24 21:00 06/07/24 09:15 10,000 UNIT Calcium Acetate 1,334 mg Q8HR GT 06/02/24 14:00 06/08/24 06:14 1,334 MG Nicardipine HCl 250 ml @ 50 mls/hr Q5H IV 06/03/24 08:00 06/07/24 17:26 50 MLS/HR Carvedilol 25 mg Q12HR PO 06/03/24 22:00 06/07/24 22:51 25 MG Laboratory Results Laboratory Tests 06/08/24 03:00 Chemistry Test 06/08/24 03:00 Calcium Level 9.8 mg/dL (8.7-10.4) Urinalysis Test 05/25/24 08:30 05/28/24 01:30 Urine Color Yellow (Yellow) Urine Clarity Clear (Clear) Urine pH 7.5 (5.0-9.0) Urine Specific [place] 1.013 (1.001-1.035) Urine Protein 2+ (Negative) H Urine Ketones Negative (Negative) Urine Blood Negative /uL (Negative) Urine Nitrite Negative (Negative) Urine Bilirubin Negative (Negative) Urine Urobilinogen 8 mg/dL (Negative) H Urine Leukocyte Esterase Negative /uL (Negative) Urine RBC 5 /hpf (0 - 4) Urine WBC 1 /hpf (0 - 5) Urine Squamous Epithelial Cells Few /hpf (<5) Urine Bacteria None seen /hpf (None Seen) Urine Glucose Normal mg/dL (Normal) Urine Creatinine 248.25 mg/dL (30.0-125.0) H Urine Sodium 27 mmol/L (40-220) L Urine Total Protein 293.2 mg/dL (1-14) H Blood Gas Results Test 06/07/24 12:16 06/08/24 08:07 Arterial Blood pH 7.483 (7.350-7.450) 7.482 (7.350-7.450) FiO2 % 40.0 30.0 Microbiology Microbiology Date/Time Source Procedure Growth Status 05/27/24 08:50 Nose MRSA Screen - Final Complete 05/25/24 08:30 Urine - [place] Urine Culture - Final Complete 05/25/24 08:24 Blood Blood Culture - Final Streptococcus pneumoniae Complete 05/25/24 06:50 Sputum Gram Stain - Final Complete 05/25/24 06:50 Respiratory Culture - Final Presumptive Tara albicans Complete Labs and/or images reviewed: Labs reviewed by me, Image(s) reviewed by me Assessment/Plan Assessment/Plan Impression: -severe sepsis with shock , Streptococcus pneumoniae -probable community-acquired pneumonia with Gram-positive cocci -sepsis with Gram-positive cocci -acute hypoxic respiratory failure with mechanical ventilation -obesity -acute kidney injury, anuric -NSTEMI, probably type 2 -hypoalbuminemia -? Angioedema Plan: Events: Patient on Precedex. Found to be in a hypertensive crisis during my rounding. Instructed primary nurse to use nicardipine as ordered given the patient has a intracranial bleed. Review of the patient's vital signs reveals intermittent periods of hypertensive issues. Long discussion made with the patient's son as well as significant other bedside yesterday. All questions answered. -patient continues to be off vasopressor therapy, hemodynamically stable, white blood cell count improving, plans for spontaneous breathing trial once patient awakens -bronchodilators -continue cefepime and Diflucan -continue current ventilator settings. Patient now on 30% FiO2 -nephrology consultation: HD has been initiated -PUD, DVT prophylaxis -repeat labs, chest x-ray, ABG in a.m.. Critical care time spent with patient discussing and formulating plan of care: 90 minutes. This does not include time spent performing procedures. This medical document was created using an electronic medical record system with [employer] dictation system. Although this document has been carefully reviewed, there may still be some phonetic and typographical errors. These areas are purely typographical due to imperfections of the software programs, and do not reflect any compromise in the patient's medical care. Plan discussed with: Patient, Other (RN) My Orders Orders - OMAR PARK NP Procedure Category Date Status Time Urine Bacterial JO-ANN 06/07/24 Logged Culture 09:18 Blood Culture JO-ANN 06/07/24 In Process 09:18 Respiratory Culture JO-ANN 06/07/24 Logged W/ Gs 09:18 Cpap/Sed Vacation Med ORDERS 06/07/24 Transmitted Weaning 09:18 Complete Blood Count LAB 06/09/24 Verified 05:00 Complete Blood Count LAB 06/10/24 Verified 05:00 Basic Metabolic Panel LAB 06/09/24 Verified 05:00 Basic Metabolic Panel LAB 06/10/24 Verified 05:00 Date of Service: Jun 08, 2024 Billing Provider: OMAR PARK NP Common Visit Codes: 50548-[id number] CARE 30-74 MIN, [id number] CARE-EACH +30MIN OMAR PARK NP Jun 08, 2024 09:03
--- NOTE | 2024-06-08 09:44 | DVHPN2 ---
Consult Progress Note Date Seen: Jun 08, 2024 Subjective Other Systems: Off sedation, moving, agitated with sinus tachycardia and SBP >200 mmHg Objective vital signs Vital Sign Date Time Temp Pulse Resp B/P (MAP) Pulse Ox O2 Delivery O2 Flow Rate FiO2 06/08/24 07:45 93 22 165/87 (113) 95 30 06/08/24 06:00 Mechanical Ventilator+ 06/08/24 04:30 98.2 98.2 Total Intake and Output 06/07/24 06/07/24 06/08/24 15:00 23:00 07:00 Intake Total 140.90 ml 257.70 ml 246.80 ml Output Total 250 ml 400 ml Balance 140.90 ml 7.70 ml -153.20 ml medications Current Medications Medications Dose Ordered Sig/Yousif Route Start Time Stop Time Status Last Admin Dose Admin Midazolam HCl 50 ml @ 1 mls/hr Q24H IV 05/25/24 06:30 05/29/24 09:11 5 MLS/HR Atorvastatin Calcium 40 mg HS NG 05/25/24 22:00 06/07/24 22:50 40 MG Ondansetron HCl 4 mg Q4HP PRN IV 05/25/24 10:45 Nitroglycerin 0.4 mg Q5MINP PRN SL 05/25/24 10:45 Albuterol 2.5 mg Q4HR NEB 05/25/24 14:00 06/08/24 06:44 2.5 MG Ipratropium [place] 0.5 mg Q4HR NEB 05/25/24 14:00 06/08/24 06:44 0.5 MG Fentanyl Citrate 250 ml @ 2.5 mls/hr Q24H IV 05/25/24 19:30 06/05/24 15:15 2.5 MLS/HR Ibuprofen 400 mg Q4HP PRN GT 05/26/24 01:15 05/26/24 01:42 400 MG Cefepime HCl 0.5 gm/Dextrose 50 ml @ 12.5 mls/hr Q24H IV 05/29/24 18:00 06/07/24 18:18 12.5 MLS/HR Enteral Nutritional Formula 1,000 ml 30ML/HR GT 05/29/24 09:45 06/05/24 15:30 1,000 ML Dexmedetomidine HCl 400 mcg/ Dextrose 100 ml @ 8.18 mls/hr [id number] IV 05/29/24 14:15 06/08/24 06:57 8.18 MLS/HR Hydralazine HCl 10 mg Q6HP PRN IV 05/29/24 16:30 06/07/24 04:41 10 MG Pantoprazole Sodium 40 mg DAILY IV 05/30/24 10:00 06/07/24 09:11 40 MG Bumetanide 2 mg BIDD IV 05/30/24 18:00 06/08/24 06:13 2 MG Epoetin Rafael-epbx 10,000 unit MWF SC 05/31/24 21:00 06/07/24 09:15 10,000 UNIT Calcium Acetate 1,334 mg Q8HR GT 06/02/24 14:00 06/08/24 06:14 1,334 MG Nicardipine HCl 250 ml @ 50 mls/hr Q5H IV 06/03/24 08:00 06/07/24 17:26 50 MLS/HR Carvedilol 25 mg Q12HR PO 06/03/24 22:00 06/07/24 22:51 25 MG Examination: GENERAL:Abnormal (Agitated, off sedation, bucking the vent), LUNGS:Abnormal (Mechanically ventilated), CVS:Abnormal (Sinus tachy, SBP >200 mmHg), NEURO:Abnormal (Off sedation, agitated) laboratory and microbiology Laboratory Tests 06/08/24 03:00 Test 06/08/24 03:00 Range/Units Serum Glucose 113 H 74-106 mg/dL Problem List/Assessment/Plan Problem List/Assessment/Plan Septic shock Acute on chronic HFrEF, NYHA class IV, newly diagnosed Acute hypoxic respiratory failure NSTEMI, questionable Type I Mitral valve regurgitation, mild degree Hypertensive urgency Subcortical parenchymal hemorrhage Acute kidney injury on HD Morbidly obese Plan/Recommendation (Dr. Buchanan) * Echocardiogram revealed EF 40% with severe concentric LVH * GDMT for CHF as renal function permits. Currently on Coreg * Lipid-lowering agent. Hold single antiplatelet therapy given brain bleed * Cardiac surveillance: Monitor and notify for any ECG changes * Antibiotics per primary care team * Nephrology/Neurology recommendations * DVT/VTE prophylaxis: SCDs We will further consider ischemic work-up once patient's neurological status is determined to be intact. Currently in a sinus tachycardia rhythm and hypertensive. The patient is off sedation, agitated, and bucking the vent. Thank you for allowing us to care for this patient. Please call with any questions or concerns. Critical care time spent: 30 minutes. This medical document was created using an electronic medical record system with voice recognition software and computerized dictation system. Although this document has been carefully reviewed, there might still be some phonetic and typographical errors. Occasional wrong-word or ``sound-alike substitutions may have occurred due to the inherent limitations of voice recognition software. These areas are purely typographical due to imperfections of the software programs and do not reflect any compromise in the patient's medical care. Please read the chart carefully and recognize, using context, where these substitutions have occurred. Plan discussed with: Other Dietary Evaluation Review Comments: 1) If GI is accessible consider Jevity 1.2 @ 70ml/hr x 24hr continuous feed goal rate as tolerated 2) If pt remains NPO >7 days consider TPN to meet at least 75% of estimated needs 3) Advance pt diet when medically feasible to a 2gm Sodium diet modified per EMPLOYEE PLACEMENT SPECIALIST recommendations 4) Continue current plan of care Expected Outcomes/Goals: 1) Pt to receive nutrition support within 7 days of NPO status 2) Pt diet to advance 3) F/U in 2-3 days Date of Service: Jun 08, 2024 Billing Provider: SARAH MONCADA Cardiology Common Codes: 49315-[id number] CARE 30-74 MIN SARAH MONCADA Jun 08, 2024 09:44
--- NOTE | 2024-06-08 09:57 | DVHPN2 ---
Progress Note Date Seen: Jun 08, 2024 Medical Necessity Reason Pt with a Central, PICC or Fol: Yes The following are medically ne: Central Line, [place] Catheter Reason for putnam catheter: Strict I&O Subjective Review of Systems: RESPIRATORY:Abnormal Other Systems: Patient seen and examined by myself today in follow-up Patient remained intubated on ventilator Objective vital signs Vital Sign Date Time Temp Pulse Resp B/P (MAP) Pulse Ox O2 Delivery O2 Flow Rate FiO2 06/08/24 07:45 93 22 165/87 (113) 95 30 06/08/24 06:00 Mechanical Ventilator+ 06/08/24 04:30 98.2 98.2 Total Intake and Output 06/07/24 06/07/24 06/08/24 15:00 23:00 07:00 Intake Total 140.90 ml 257.70 ml 246.80 ml Output Total 250 ml 400 ml Balance 140.90 ml 7.70 ml -153.20 ml medications Current Medications Medications Dose Ordered Sig/Yousif Route Start Time Stop Time Status Last Admin Dose Admin Midazolam HCl 50 ml @ 1 mls/hr Q24H IV 05/25/24 06:30 05/29/24 09:11 5 MLS/HR Atorvastatin Calcium 40 mg HS NG 05/25/24 22:00 06/07/24 22:50 40 MG Ondansetron HCl 4 mg Q4HP PRN IV 05/25/24 10:45 Nitroglycerin 0.4 mg Q5MINP PRN SL 05/25/24 10:45 Albuterol 2.5 mg Q4HR NEB 05/25/24 14:00 06/08/24 06:44 2.5 MG Ipratropium [place] 0.5 mg Q4HR NEB 05/25/24 14:00 06/08/24 06:44 0.5 MG Fentanyl Citrate 250 ml @ 2.5 mls/hr Q24H IV 05/25/24 19:30 06/05/24 15:15 2.5 MLS/HR Ibuprofen 400 mg Q4HP PRN GT 05/26/24 01:15 05/26/24 01:42 400 MG Cefepime HCl 0.5 gm/Dextrose 50 ml @ 12.5 mls/hr Q24H IV 05/29/24 18:00 06/07/24 18:18 12.5 MLS/HR Enteral Nutritional Formula 1,000 ml 30ML/HR GT 05/29/24 09:45 06/05/24 15:30 1,000 ML Dexmedetomidine HCl 400 mcg/ Dextrose 100 ml @ 8.18 mls/hr [id number] IV 05/29/24 14:15 06/08/24 06:57 8.18 MLS/HR Hydralazine HCl 10 mg Q6HP PRN IV 05/29/24 16:30 06/07/24 04:41 10 MG Pantoprazole Sodium 40 mg DAILY IV 05/30/24 10:00 06/07/24 09:11 40 MG Bumetanide 2 mg BIDD IV 05/30/24 18:00 06/08/24 06:13 2 MG Epoetin Rafael-epbx 10,000 unit MWF SC 05/31/24 21:00 06/07/24 09:15 10,000 UNIT Calcium Acetate 1,334 mg Q8HR GT 06/02/24 14:00 06/08/24 06:14 1,334 MG Nicardipine HCl 250 ml @ 50 mls/hr Q5H IV 06/03/24 08:00 06/07/24 17:26 50 MLS/HR Carvedilol 25 mg Q12HR PO 06/03/24 22:00 06/07/24 22:51 25 MG Examination: LUNGS:Normal, CVS:Normal, MSK:Normal laboratory and microbiology Laboratory Tests 06/08/24 03:00 Test 06/08/24 03:00 Range/Units Serum Glucose 113 H 74-106 mg/dL Microbiology Date/Time Source Procedure Growth Status 05/27/24 08:50 Nose MRSA Screen - Final Complete 05/25/24 08:30 Urine - [place] Urine Culture - Final Complete 05/25/24 08:24 Blood Blood Culture - Final Streptococcus pneumoniae Complete 05/25/24 06:50 Sputum Gram Stain - Final Complete 05/25/24 06:50 Respiratory Culture - Final Presumptive Tara albicans Complete Problem List/Assessment/Plan Problem List/Assessment/Plan CHANG superimposed on CKD secondary to ATN needing HD Acute respiratory failure, intubated on ventilator Septic shock CHF, Ef 40% Morbid obesity Anemia of CKD REC: Hemodialysis tomorrow with increased UF Epogen 75303 IV post hemodialysis IV pressors for BP support IV Abx Will continue to follow Plan discussed with: Other (Nurse) Dietary Evaluation Review Comments: 1) If GI is accessible consider Jevity 1.2 @ 70ml/hr x 24hr continuous feed goal rate as tolerated 2) If pt remains NPO >7 days consider TPN to meet at least 75% of estimated needs 3) Advance pt diet when medically feasible to a 2gm Sodium diet modified per LINE ASSEMBLER recommendations 4) Continue current plan of care Expected Outcomes/Goals: 1) Pt to receive nutrition support within 7 days of NPO status 2) Pt diet to advance 3) F/U in 2-3 days MARIELA JONES MD Jun 08, 2024 09:57
--- NOTE | 2024-06-08 10:05 | DVHPN2 ---
Progress Note - Dictate Date Seen: Jun 08, 2024 Medical Necessity Reason Pt with a Central, PICC or Fol: Yes The following are medically ne: Central Line, Putnam Catheter Reason for putnam catheter: Strict I&O Subjective Ms. Pandya is a 53 years old right-handed female with a history of morbid obesity, hypertension, the patient was was brought to the [facility] on 05/25/24 with a chief company of altered mental status, respiratory distress. I have seen and examined the patient, I have talked to her nurse, respiratory therapist and other staff, she was intubated, sedated, but she was had tachypnea with respiration rate over 40s, significantly elevated blood pressure, and heart rate in 110s. Nurse reports this happens periodically and spontaneously Precedex 0.6 units/hour/kg, FiO2 100% Urine culture, 05/25/2024: Negative Blood culture, 05/25/2024: Streptococcus pneumoniae UDS, 05/25/2024: Negative Urinalysis, 05/25/2024: WBC: 1, urine leukocyte esterase: Negative ABG, 05/25/2024: Metabolic acidosis, hypoxia, 05/26/2024: Metabolic acidosis, hypoxia, 05/27/24: Metabolic acidosis, hypoxia WBC/HB/PLT/MCV, 06/02/2024: 22.4/9/342/89.4 BUN/CR, 05/26/2024: 62/7.01 06/02/2024: 123/6.59 HGB A1c, 05/25/2024: 5.6 Lactic acid, 05/25/2024: 3.6, 4.6, 4.2, 05/26/2024: 3.6 Troponin one high sensitivity, 05/25/2024: 1060, 1354, 1262 TBI/AST/ALT/AP, 05/26/2024: 2/246/167/98 TG/HDL/LDL/HDL, 05/25/2024: 192/98/40/8 Vitamin B12, 06/02/2024: 836 TSH, 05/25/2024: 0.57 Chest x-ray, 05/25/2024: 1. Distal tip of the endotracheal tube is approximately 5.5 cm above the level of the nik. 2. Poorly visualized enteric tube at its distal aspect. Appears to reach the gastroesophageal junction, although not visualized distal to this point. Correlate with clinical findings. 3. Bilateral airspace opacities and interstitial opacities, may be due to multifocal pneumonia or pulmonary edema in the appropriate clinical setting CT head, 05/25/2024: No gross acute intracranial process CT head, 06/02/24: 1. Interval development of 2 foci of subcortical parenchymal hemorrhage in the left frontal lobe. No mass effect or midline shift. 2. Moderate amount of fluid in the posterior nasopharynx likely related to intubation. Recommend suctioning to prevent aspiration. 3. Small bilateral mastoid effusions. We are in the process of reaching out to the nurse or physician in charge of the patient to convey the findings. CT head, 06/04/2024: Redemonstrated are 2 hyperdense foci in the subcortical left frontal lobe which may represent small foci of parenchymal hemorrhage. There is no significant surrounding edema or associated mass effect CT head, 06/06/2024: The 2 foci of left frontal subcortical hemorrhage are less conspicuous in the current exam partially resolved. No new foci of hemorrhage vital signs Vital Sign Date Time Temp Pulse Resp B/P (MAP) Pulse Ox O2 Delivery O2 Flow Rate FiO2 06/08/24 09:51 95 22 170/93 (118) 95 30 06/08/24 06:00 Mechanical Ventilator+ 06/08/24 04:30 98.2 98.2 Total Intake and Output 06/07/24 06/07/24 06/08/24 15:00 23:00 07:00 Intake Total 140.90 ml 257.70 ml 246.80 ml Output Total 250 ml 400 ml Balance 140.90 ml 7.70 ml -153.20 ml medications Current Medications Medications Dose Ordered Sig/Yousif Route Start Time Stop Time Status Last Admin Dose Admin Midazolam HCl 50 ml @ 1 mls/hr Q24H IV 05/25/24 06:30 05/29/24 09:11 5 MLS/HR Atorvastatin Calcium 40 mg HS NG 05/25/24 22:00 06/07/24 22:50 40 MG Ondansetron HCl 4 mg Q4HP PRN IV 05/25/24 10:45 Nitroglycerin 0.4 mg Q5MINP PRN SL 05/25/24 10:45 Albuterol 2.5 mg Q4HR NEB 05/25/24 14:00 06/08/24 06:44 2.5 MG Ipratropium [place] 0.5 mg Q4HR NEB 05/25/24 14:00 06/08/24 06:44 0.5 MG Fentanyl Citrate 250 ml @ 2.5 mls/hr Q24H IV 05/25/24 19:30 06/05/24 15:15 2.5 MLS/HR Ibuprofen 400 mg Q4HP PRN GT 05/26/24 01:15 05/26/24 01:42 400 MG Cefepime HCl 0.5 gm/Dextrose 50 ml @ 12.5 mls/hr Q24H IV 05/29/24 18:00 06/07/24 18:18 12.5 MLS/HR Enteral Nutritional Formula 1,000 ml 30ML/HR GT 05/29/24 09:45 06/05/24 15:30 1,000 ML Dexmedetomidine HCl 400 mcg/ Dextrose 100 ml @ 8.18 mls/hr [id number] IV 05/29/24 14:15 06/08/24 06:57 8.18 MLS/HR Hydralazine HCl 10 mg Q6HP PRN IV 05/29/24 16:30 06/07/24 04:41 10 MG Pantoprazole Sodium 40 mg DAILY IV 05/30/24 10:00 06/07/24 09:11 40 MG Bumetanide 2 mg BIDD IV 05/30/24 18:00 06/08/24 06:13 2 MG Epoetin Rafael-epbx 10,000 unit MWF SC 05/31/24 21:00 06/07/24 09:15 10,000 UNIT Calcium Acetate 1,334 mg Q8HR GT 06/02/24 14:00 06/08/24 06:14 1,334 MG Nicardipine HCl 250 ml @ 50 mls/hr Q5H IV 06/03/24 08:00 06/07/24 17:26 50 MLS/HR Carvedilol 25 mg Q12HR PO 06/03/24 22:00 06/07/24 22:51 25 MG objective The patient is well-nourished and well-developed with no distress. The patient is intubated MENTAL STATUS: Subjective CRANIAL NERVES: Pupils are equal, round and reactive.There are corneal reflexes and conjugated eye movement. No signs of facial weakness. There are gagging or coughing reflexes SENSATION: Okay to painful stimuli MOTOR: Normal tone in the upper and lower extremity. Normal muscle bulk. No fasciculations. No spontaneous movement. REFLEXES: Deep tendon reflexes are symmetrical. No pathological reflexes. CEREBELLAR/COORDINATION: Deferred GAIT/STATION: deferred. laboratory and microbiology Laboratory Tests 06/08/24 03:00 Test 06/08/24 03:00 Range/Units Serum Glucose 113 H 74-106 mg/dL Problem List Altered mental status/Coma Hypoxic encephalopathy secondary to respiratory failure Metabolic encephalopathy secondary to acidosis, sepsis, septic shock, kidney failure Heart attack Pneumonia Sepsis, septic shock Acute on chronic kidney failure Acute petechial hemorrhage in the left frontal lobe, improving on follow-up CT Assessment/Plan Monitoring Supportive treatment ICU care Follow-up labs EEG Stabilize vitals Respiratory support/vent management Oxygen IV antibiotics GI prophylaxis/Protonix DVT prophylaxis/heparin Nephrology on case Pulmonology on case More recommendation per clinical course This medical document was created using an electronic medical record system with [email or web address] dictation system. Although this document has been carefully reviewed, there may still be some phonetic and typographical errors. These areas are purely typographical due to imperfections of the software programs, and do not reflect any compromise in the patient's medical care Prognosis GUARDED Dietary Evaluation Review Comments: 1) If GI is accessible consider Jevity 1.2 @ 70ml/hr x 24hr continuous feed goal rate as tolerated 2) If pt remains NPO >7 days consider TPN to meet at least 75% of estimated needs 3) Advance pt diet when medically feasible to a 2gm Sodium diet modified per ECONOMIST RESEARCH ASSISTANT recommendations 4) Continue current plan of care Expected Outcomes/Goals: 1) Pt to receive nutrition support within 7 days of NPO status 2) Pt diet to advance 3) F/U in 2-3 days Plan discussed with: Other Critical Care Time(min): 25 PILAR HOOD MD Jun 08, 2024 10:05
--- NOTE | 2024-06-08 21:50 | DVHPN2 ---
Progress Note - Dictate Date Seen: Jun 08, 2024 Medical Necessity Reason Pt with a Central, PICC or Fol: Yes The following are medically ne: Central Line, Putnam Catheter Reason for putnam catheter: Strict I&O Subjective Patient seen and examined at bedside. intubated on mechanical ventilator. Overnight events reviewed. vital signs Vital Sign Date Time Temp Pulse Resp B/P (MAP) Pulse Ox O2 Delivery O2 Flow Rate FiO2 06/08/24 20:30 99.1 74 22 111/60 (77) 94 99.1 06/08/24 20:25 30 06/08/24 20:00 Mechanical Ventilator+ Total Intake and Output 06/07/24 06/07/24 06/08/24 15:00 23:00 07:00 Intake Total 140.90 ml 257.70 ml 254.98 ml Output Total 250 ml 400 ml Balance 140.90 ml 7.70 ml -145.02 ml medications Current Medications Medications Dose Ordered Sig/Yousif Route Start Time Stop Time Status Last Admin Dose Admin Midazolam HCl 50 ml @ 1 mls/hr Q24H IV 05/25/24 06:30 05/29/24 09:11 5 MLS/HR Atorvastatin Calcium 40 mg HS NG 05/25/24 22:00 06/07/24 22:50 40 MG Ondansetron HCl 4 mg Q4HP PRN IV 05/25/24 10:45 Nitroglycerin 0.4 mg Q5MINP PRN SL 05/25/24 10:45 Albuterol 2.5 mg Q4HR NEB 05/25/24 14:00 06/08/24 19:10 2.5 MG Ipratropium [place] 0.5 mg Q4HR NEB 05/25/24 14:00 06/08/24 19:10 0.5 MG Fentanyl Citrate 250 ml @ 2.5 mls/hr Q24H IV 05/25/24 19:30 06/05/24 15:15 2.5 MLS/HR Ibuprofen 400 mg Q4HP PRN GT 05/26/24 01:15 05/26/24 01:42 400 MG Cefepime HCl 0.5 gm/Dextrose 50 ml @ 12.5 mls/hr Q24H IV 05/29/24 18:00 06/08/24 17:51 12.5 MLS/HR Enteral Nutritional Formula 1,000 ml 30ML/HR GT 05/29/24 09:45 06/05/24 15:30 1,000 ML Dexmedetomidine HCl 400 mcg/ Dextrose 100 ml @ 8.18 mls/hr [id number] IV 05/29/24 14:15 06/08/24 06:57 8.18 MLS/HR Hydralazine HCl 10 mg Q6HP PRN IV 05/29/24 16:30 06/07/24 04:41 10 MG Pantoprazole Sodium 40 mg DAILY IV 05/30/24 10:00 06/08/24 10:27 40 MG Bumetanide 2 mg BIDD IV 05/30/24 18:00 06/08/24 17:50 2 MG Epoetin Rafael-epbx 10,000 unit MWF SC 05/31/24 21:00 06/07/24 09:15 10,000 UNIT Calcium Acetate 1,334 mg Q8HR GT 06/02/24 14:00 06/08/24 14:36 1,334 MG Nicardipine HCl 250 ml @ 50 mls/hr Q5H IV 06/03/24 08:00 06/08/24 16:09 150 MLS/HR Carvedilol 25 mg Q12HR PO 06/03/24 22:00 06/08/24 10:30 25 MG objective Gen.: Patient lying in bed in medical ICU. Intubated on mechanical ventilator. Head: Normocephalic, atraumatic. Eyes: PERRLA. Ears: Normal external anatomy. Throat: Endotracheal tube and orogastric tube in place. Neck: Supple, trachea midline. Chest: Transmitted breath sounds bilaterally. Decreased air entry bilaterally. No wheezing. Bibasilar crackles. Cardiovascular: Positive S1, positive S2. Regular rate and rhythm. Abdomen: Positive bowel sounds in all 4 quadrants. Soft, nontender, nondistended. : Putnam in place. Normal external genitalia. Rectal: Deferred. Skin: Warm, dry. Intact. Extremities: 2+ radial pulses bilaterally. No lower extremity edema. Neuro: Off sedation laboratory and microbiology Laboratory Tests 06/08/24 03:00 Test 06/08/24 03:00 Range/Units Serum Glucose 113 H 74-106 mg/dL Assessment/Plan Impression: Acute hypoxic respiratory failure On mechanical ventilator Septic shock Elevated troponin Acute kidney injury Lactic acidosis Metabolic acidosis Multifocal pneumonia, likely gram negative Pulmonary edema AE COPD Events: Remains on vent support On AC mode; RR 22, VT 600, PEEP 8, FiO2 40 -->30% Fentanyl drip for analgesia. ABG reviewed, notable for alkalemia CXR demonstrates cardiomegaly, mild bilateral airspace disease - stable. No effusion or pneumothorax. Devices in place. Continue antibiotics On nicardipine drip for blood pressure. Tube feeds for nutritional support Wound care Monitor hemoglobin Diurese as tolerated w/ Bumex Monitor renal function Hemodialysis per Nephrology Echo showed EF of 40%. SBT/KAREN Patient opens eyes, not following commands. Awaiting for mentation to improve. Off sedation; becomes hypertensive. Consider trach/PEG for liberation from vent if family wishes for aggressive care. CT head on 06/06/24 revealed the two foci of left frontal subcortical hemorrhage are less conspicuous - partially resolved. No new foci of hemorrhage. Neurology recs appreciated. Labs and imaging reviewed. Rest of plan as noted below. Plan: s/p intubation on mechanical ventilator. On AC mode; RR 22, VT 600, PEEP 8, FiO2 30% Titrate FIO2 to keep O2 saturation above 90%. VAP bundle. Daily ABG and CXR while intubated Off sedation Off pressors, hemodynamically stable. Continue bronchodilators. Continue antibiotics. F/u cultures. Pressors if necessary to maintain a mean arterial blood pressure greater than 65 mmHg. Cardiology recs appreciated. Monitor renal function Monitor electrolytes. Supplement as necessary. Monitor ins and outs. Nephrology recs appreciated. IV fluid hydration GI prophylaxis. DVT prophylaxis. Prognosis: Poor given patient's multiple co-morbidities. Condition: Critical Rest of plan per hospitalist and other consultants. A total of 35 minutes of critical care time was spent reviewing the patient record, examining the patient, making a diagnostic and therapeutic plan, discussing this plan with the medical personnel, following up on diagnostic studies and following the patient for clinical stability excluding any and all procedures. At least 50% of this time was spent in direct, [id number] contact. Thank you, MIRNA Stratton, for allowing me to participate in this patient's care. Further recommendations will depend on the patient's clinical course. Please do not hesitate to contact me if you have any questions or concerns. This medical document was created using an electronic medical record system with Phot[employer] system. Although these documentations are being carefully reviewed, there may still be some phonetic and typographical changes. The errors are purely typographical, due to imperfection on the software program, and do not reflect any compromise in the patient's medical care. Dietary Evaluation Review Comments: 1) If GI is accessible consider Jevity 1.2 @ 70ml/hr x 24hr continuous feed goal rate as tolerated 2) If pt remains NPO >7 days consider TPN to meet at least 75% of estimated needs 3) Advance pt diet when medically feasible to a 2gm Sodium diet modified per BUSINESS SYSTEMS ANALYST recommendations 4) Continue current plan of care Expected Outcomes/Goals: 1) Pt to receive nutrition support within 7 days of NPO status 2) Pt diet to advance 3) F/U in 2-3 days Plan discussed with: Other (LUZMARIA Fuller) Critical Care Time(min): 35 MELODY ELIZABETH MD Jun 08, 2024 21:50
[2024-06-09] VITALS (110 sets, daily range): BP systolic 80–197; BP diastolic 44–101; PULSE 65–98; RESP 13–38; TEMP 97.4–98.7; O2SAT 92–100
[2024-06-09 03:48] LABS: Basophils # (auto) 0 10 ^3/uL (0-0.2); Basophils % (auto) 0.2 % (0.0-2.0); Eosinophils # (auto) 0.1 10 ^3/uL (0-0.8); Eosinophils % (auto) 0.6 % (0.0-7.0); Hematocrit 28.9 % (36.0-46.0); Hemoglobin 9.4 g/dL (12.2-16.2); Lymphocytes # (auto) 1.2 10 ^3/uL (0.4-5.4); Mean Corpuscular Hemoglobin 29.7 pg (28.0-32.0); Mean Corpuscular Hgb Conc. 32.5 g/dL (32.0-36.0); Mean Corpuscular Volume 91.6 fL (80.0-100.0); Monocytes # (auto) 1.4 10 ^3/uL (0-1.3); Monocytes % (auto) 7.1 % (0.0-12.0); Neutrophils # (auto) 16.9 10 ^3/uL (1.6-8.6); Neutrophils % (auto) 86.1 % (37.0-80.0); Platelet Count (auto) 235 10^3/uL (140-450); Red Blood Cells 3.16 10^6/uL (4.0-5.20); Red Cell Distribution Width 16.4 % (11.8-14.3); White Blood Cell 19.6 10^3/uL (4.4-10.8)
[2024-06-09 04:00] LABS: Potassium 4.3 mmol/L (3.5-5.1)
[2024-06-09 04:01] LABS: Anion Gap 16 (5-15); Carbon Dioxide 23 mmol/L (20-31)
[2024-06-09 04:02] LABS: Calcium 9.8 mg/dL (8.7-10.4)
[2024-06-09 04:07] LABS: BUN/Creatinine Ratio 21.7 (10.0-20.0)
[2024-06-09 04:20] LABS: Blood Urea Nitrogen 137 mg/dL (9-23); Chloride 97 mmol/L (98-107); Glucose 137 mg/dL (74-106); Sodium 136 mmol/L (136-145)
--- NOTE | 2024-06-09 04:45 | DVH ---
CHEST RADIOGRAPH Indication: intubated Technique: Single frontal view of the chest was obtained Comparison: XY CHEST PORTABLE on DOS: 06/08/24 FINDINGS: Lines and Tubes: Left central venous catheter terminates in the superior vena cava. The endotracheal tube terminates 5.8 cm above the nik. Lungs: Bilateral airspace disease similar to prior study. Pleura: No effusion. No pneumothorax. Cardiomediastinal contours: Unremarkable Bones: No acute osseous abnormality. IMPRESSION: 1. No significant interval change.
[2024-06-09 07:53] LABS: Base Excess 0.6 mmol/L (-2.0-3.0)
--- NOTE | 2024-06-09 09:54 | DVHPN2 ---
Progress Note - Dictate Date Seen: Jun 09, 2024 Medical Necessity Reason Pt with a Central, PICC or Fol: Yes The following are medically ne: Central Line, Putnam Catheter Reason for putnam catheter: Strict I&O Subjective Ms. Pandya is a 53 years old right-handed female with a history of morbid obesity, hypertension, the patient was was brought to the [facility] on 05/25/24 with a chief company of altered mental status, respiratory distress. I have seen and examined the patient, I have talked to her nurse, respiratory therapist and telecommunications technician, she is intubated, sedated, but she is respond to light touch, she blinks, no motor in the extremities Her vitals are better today, She failed CPAP trial yesterday The case was discussed with Derian damian yesterday Fentanyl 225 mcg/hour Urine culture, 05/25/2024: Negative Blood culture, 05/25/2024: Streptococcus pneumoniae UDS, 05/25/2024: Negative Urinalysis, 05/25/2024: WBC: 1, urine leukocyte esterase: Negative ABG, 05/25/2024: Metabolic acidosis, hypoxia, 05/26/2024: Metabolic acidosis, hypoxia, 05/27/24: Metabolic acidosis, hypoxia WBC/HB/PLT/MCV, 06/02/2024: 22.4/9/342/89.4 06/09/2024: 19.6/9.4/235/91.6 BUN/CR, 05/26/2024: 62/7.01 06/02/2024: 123/6.59, 06/09/2024: 137/6.32 HGB A1c, 05/25/2024: 5.6 Lactic acid, 05/25/2024: 3.6, 4.6, 4.2, 05/26/2024: 3.6 Troponin one high sensitivity, 05/25/2024: 1060, 1354, 1262 TBI/AST/ALT/AP, 05/26/2024: 2/246/167/98, 06/07/2024: 0.9/139/464/93 TG/HDL/LDL/HDL, 05/25/2024: 192/98/40/8 Vitamin B12, 06/02/2024: 836 TSH, 05/25/2024: 0.57 Chest x-ray, 05/25/2024: 1. Distal tip of the endotracheal tube is approximately 5.5 cm above the level of the nik. 2. Poorly visualized enteric tube at its distal aspect. Appears to reach the gastroesophageal junction, although not visualized distal to this point. Correlate with clinical findings. 3. Bilateral airspace opacities and interstitial opacities, may be due to multifocal pneumonia or pulmonary edema in the appropriate clinical setting CT head, 05/25/2024: No gross acute intracranial process CT head, 06/02/24: 1. Interval development of 2 foci of subcortical parenchymal hemorrhage in the left frontal lobe. No mass effect or midline shift. 2. Moderate amount of fluid in the posterior nasopharynx likely related to intubation. Recommend suctioning to prevent aspiration. 3. Small bilateral mastoid effusions. We are in the process of reaching out to the nurse or physician in charge of the patient to convey the findings. CT head, 06/04/2024: Redemonstrated are 2 hyperdense foci in the subcortical left frontal lobe which may represent small foci of parenchymal hemorrhage. There is no significant surrounding edema or associated mass effect CT head, 06/06/2024: The 2 foci of left frontal subcortical hemorrhage are less conspicuous in the current exam partially resolved. No new foci of hemorrhage vital signs Vital Sign Date Time Temp Pulse Resp B/P (MAP) Pulse Ox O2 Delivery O2 Flow Rate FiO2 06/09/24 09:32 82 20 143/74 (97) 96 30 06/09/24 06:00 Mechanical Ventilator+ 06/09/24 05:45 97.8 97.8 Total Intake and Output 06/08/24 06/08/24 06/09/24 15:00 23:00 07:00 Intake Total 596.13 ml 1265.0 ml 1148 ml Output Total 1150 ml 900 ml Balance 596.13 ml 115.0 ml 248 ml medications Current Medications Medications Dose Ordered Sig/Yousif Route Start Time Stop Time Status Last Admin Dose Admin Midazolam HCl 50 ml @ 1 mls/hr Q24H IV 05/25/24 06:30 05/29/24 09:11 5 MLS/HR Atorvastatin Calcium 40 mg HS NG 05/25/24 22:00 06/08/24 22:16 40 MG Ondansetron HCl 4 mg Q4HP PRN IV 05/25/24 10:45 Nitroglycerin 0.4 mg Q5MINP PRN SL 05/25/24 10:45 Albuterol 2.5 mg Q4HR NEB 05/25/24 14:00 06/09/24 07:07 2.5 MG Ipratropium [place] 0.5 mg Q4HR NEB 05/25/24 14:00 06/09/24 07:07 0.5 MG Fentanyl Citrate 250 ml @ 2.5 mls/hr Q24H IV 05/25/24 19:30 06/09/24 02:42 20 MLS/HR Ibuprofen 400 mg Q4HP PRN GT 05/26/24 01:15 05/26/24 01:42 400 MG Cefepime HCl 0.5 gm/Dextrose 50 ml @ 12.5 mls/hr Q24H IV 05/29/24 18:00 06/08/24 17:51 12.5 MLS/HR Enteral Nutritional Formula 1,000 ml 30ML/HR GT 05/29/24 09:45 06/05/24 15:30 1,000 ML Dexmedetomidine HCl 400 mcg/ Dextrose 100 ml @ 8.18 mls/hr [id number] IV 05/29/24 14:15 06/08/24 06:57 8.18 MLS/HR Hydralazine HCl 10 mg Q6HP PRN IV 05/29/24 16:30 06/07/24 04:41 10 MG Pantoprazole Sodium 40 mg DAILY IV 05/30/24 10:00 06/08/24 10:27 40 MG Bumetanide 2 mg BIDD IV 05/30/24 18:00 06/09/24 05:31 2 MG Epoetin Rafael-epbx 10,000 unit MWF SC 05/31/24 21:00 06/07/24 09:15 10,000 UNIT Calcium Acetate 1,334 mg Q8HR GT 06/02/24 14:00 06/09/24 05:31 1,334 MG Nicardipine HCl 250 ml @ 50 mls/hr Q5H IV 06/03/24 08:00 06/09/24 07:44 150 MLS/HR Carvedilol 25 mg Q12HR PO 06/03/24 22:00 06/08/24 22:16 25 MG Hydralazine HCl 50 mg Q12HR PO 06/09/24 10:00 Doxycycline Hyclate 100 ml @ 50 mls/hr Q12H IV 06/09/24 07:45 Micafungin Sodium 100 mg/Sodium Chloride 100 ml @ 100 mls/hr DAILY IV 06/09/24 10:00 objective The patient is well-nourished and well-developed with no distress. The patient is intubated MENTAL STATUS: Subjective CRANIAL NERVES: Pupils are equal, round and reactive.There are corneal reflexes and conjugated eye movement. No signs of facial weakness. There are gagging or coughing reflexes SENSATION: Okay to painful stimuli MOTOR: Normal tone in the upper and lower extremity. Normal muscle bulk. No fasciculations. No spontaneous movement. REFLEXES: Deep tendon reflexes are symmetrical. No pathological reflexes. CEREBELLAR/COORDINATION: Deferred GAIT/STATION: deferred. laboratory and microbiology Laboratory Tests 06/09/24 03:10 Test 06/09/24 03:10 Range/Units Serum Glucose 137 H 74-106 mg/dL Problem List Altered mental status/Coma Hypoxic encephalopathy secondary to respiratory failure Metabolic encephalopathy secondary to acidosis, sepsis, septic shock, kidney failure Heart attack Pneumonia Sepsis, septic shock Acute on chronic kidney failure Acute petechial hemorrhage in the left frontal lobe, improving on follow-up CT Assessment/Plan Monitoring Supportive treatment ICU care Follow-up labs EEG Stabilize vitals Respiratory support/vent management Oxygen IV antibiotics GI prophylaxis/Protonix DVT prophylaxis/heparin Nephrology on case Pulmonology on case More recommendation per clinical course This medical document was created using an electronic medical record system with GLOG computerized dictation system. Although this document has been carefully reviewed, there may still be some phonetic and typographical errors. These areas are purely typographical due to imperfections of the software programs, and do not reflect any compromise in the patient's medical care Prognosis Guarded Dietary Evaluation Review Comments: 1) If GI is accessible consider Jevity 1.2 @ 70ml/hr x 24hr continuous feed goal rate as tolerated 2) If pt remains NPO >7 days consider TPN to meet at least 75% of estimated needs 3) Advance pt diet when medically feasible to a 2gm Sodium diet modified per CUT OFF [employer] LOG recommendations 4) Continue current plan of care Expected Outcomes/Goals: 1) Pt to receive nutrition support within 7 days of NPO status 2) Pt diet to advance 3) F/U in 2-3 days Plan discussed with: Other Critical Care Time(min): 30 PILAR HOOD MD Jun 09, 2024 09:53
[2024-06-09] MEDS: SODIUM CHL 0.9% 1000 ML BAG XX ONE (09:55)
[2024-06-09] MEDS: hydrALAZINE HCL 25 MG TAB PO SCH (11:20)
[2024-06-09] MEDS: DOXYCYCLINE 100MG/100ML 100 ML IV SCH (11:20)
[2024-06-09] MEDS: MICAFUNGIN SODIUM 100 MG in SODIUM CHL 0.9% 100 ML IV SCH (14:10)
--- NOTE | 2024-06-09 14:48 | DVHPN2 ---
Consult Progress Note Date Seen: Jun 09, 2024 Subjective Other Systems: Notified of ventricular bigeminy post HD Objective vital signs Vital Sign Date Time Temp Pulse Resp B/P (MAP) Pulse Ox O2 Delivery O2 Flow Rate FiO2 06/09/24 14:44 79 99/56 06/09/24 13:06 27 100 30 06/09/24 12:00 Mechanical Ventilator+ 06/09/24 11:45 97.9 97.9 Total Intake and Output 06/08/24 06/08/24 06/09/24 15:00 23:00 07:00 Intake Total 596.13 ml 1265.0 ml 1148 ml Output Total 1150 ml 900 ml Balance 596.13 ml 115.0 ml 248 ml medications Current Medications Medications Dose Ordered Sig/Yousif Route Start Time Stop Time Status Last Admin Dose Admin Midazolam HCl 50 ml @ 1 mls/hr Q24H IV 05/25/24 06:30 05/29/24 09:11 5 MLS/HR Atorvastatin Calcium 40 mg HS NG 05/25/24 22:00 06/08/24 22:16 40 MG Ondansetron HCl 4 mg Q4HP PRN IV 05/25/24 10:45 Nitroglycerin 0.4 mg Q5MINP PRN SL 05/25/24 10:45 Albuterol 2.5 mg Q4HR NEB 05/25/24 14:00 06/09/24 10:20 2.5 MG Ipratropium [place] 0.5 mg Q4HR NEB 05/25/24 14:00 06/09/24 10:20 0.5 MG Fentanyl Citrate 250 ml @ 2.5 mls/hr Q24H IV 05/25/24 19:30 06/09/24 02:42 20 MLS/HR Ibuprofen 400 mg Q4HP PRN GT 05/26/24 01:15 05/26/24 01:42 400 MG Cefepime HCl 0.5 gm/Dextrose 50 ml @ 12.5 mls/hr Q24H IV 05/29/24 18:00 06/08/24 17:51 12.5 MLS/HR Enteral Nutritional Formula 1,000 ml 30ML/HR GT 05/29/24 09:45 06/05/24 15:30 1,000 ML Dexmedetomidine HCl 400 mcg/ Dextrose 100 ml @ 8.18 mls/hr [id number] IV 05/29/24 14:15 06/08/24 06:57 8.18 MLS/HR Hydralazine HCl 10 mg Q6HP PRN IV 05/29/24 16:30 06/07/24 04:41 10 MG Pantoprazole Sodium 40 mg DAILY IV 05/30/24 10:00 06/09/24 11:20 40 MG Bumetanide 2 mg BIDD IV 05/30/24 18:00 06/09/24 05:31 2 MG Calcium Acetate 1,334 mg Q8HR GT 06/02/24 14:00 06/09/24 14:18 1,334 MG Nicardipine HCl 250 ml @ 50 mls/hr Q5H IV 06/03/24 08:00 06/09/24 14:44 100 MLS/HR Carvedilol 25 mg Q12HR PO 06/03/24 22:00 06/09/24 11:21 25 MG Hydralazine HCl 50 mg Q12HR PO 06/09/24 10:00 06/09/24 11:20 50 MG Doxycycline Hyclate 100 ml @ 50 mls/hr Q12H IV 06/09/24 07:45 06/09/24 11:20 50 MLS/HR Micafungin Sodium 100 mg/Sodium Chloride 100 ml @ 100 mls/hr DAILY IV 06/09/24 10:00 06/09/24 14:10 100 MLS/HR Examination: GENERAL:Abnormal, LUNGS:Abnormal (Mechanically ventilated 30% FiO2), CVS:Normal (On nicardipine drip), CVS:Abnormal, NEURO:Abnormal (On precedex. Withdrawn) laboratory and microbiology Laboratory Tests 06/09/24 03:10 Test 06/09/24 03:10 Range/Units Serum Glucose 137 H 74-106 mg/dL Problem List/Assessment/Plan Problem List/Assessment/Plan Septic shock Acute on chronic HFrEF, NYHA class IV, newly diagnosed Acute hypoxic respiratory failure NSTEMI, questionable Type I Mitral valve regurgitation, mild degree Hypertensive urgency Subcortical parenchymal hemorrhage Acute kidney injury on HD Morbidly obese Plan/Recommendation (Dr. Buchanan) * Echocardiogram revealed EF 40% with severe concentric LVH * GDMT for CHF as renal function permits. Currently on Coreg * Lipid-lowering agent. Reinitiate single antiplatelet therapy * Discussed with Neurology team, ok to start ASA * Cardiac surveillance: Monitor and notify for any ECG changes * Antibiotics per primary care team * Nephrology/Neurology recommendations * DVT/VTE prophylaxis: SCDs We will further consider ischemic work-up once patient's neurological status is determined to be intact. Thank you for allowing us to care for this patient. Please call with any questions or concerns. Critical care time spent: 30 minutes. This medical document was created using an electronic medical record system with voice recognition software and computerized dictation system. Although this document has been carefully reviewed, there might still be some phonetic and typographical errors. Occasional wrong-word or ``sound-alike substitutions may have occurred due to the inherent limitations of voice recognition software. These areas are purely typographical due to imperfections of the software programs and do not reflect any compromise in the patient's medical care. Please read the chart carefully and recognize, using context, where these substitutions have occurred. Plan discussed with: Other Dietary Evaluation Review Comments: 1) If GI is accessible consider Jevity 1.2 @ 70ml/hr x 24hr continuous feed goal rate as tolerated 2) If pt remains NPO >7 days consider TPN to meet at least 75% of estimated needs 3) Advance pt diet when medically feasible to a 2gm Sodium diet modified per PARTS TECHNICIAN recommendations 4) Continue current plan of care Expected Outcomes/Goals: 1) Pt to receive nutrition support within 7 days of NPO status 2) Pt diet to advance 3) F/U in 2-3 days Date of Service: Jun 09, 2024 Billing Provider: SARAH MONCADA Cardiology Common Codes: 35278-[id number] CARE 30-74 MIN SARAH MONCADA Jun 09, 2024 14:48
--- NOTE | 2024-06-09 15:53 | DVHPN2 ---
Progress Note Date Seen: Jun 09, 2024 Medical Necessity Reason Pt with a Central, PICC or Fol: Yes The following are medically ne: Central Line, Putnam Catheter Reason for putnam catheter: Strict I&O Subjective Review of Systems: RESPIRATORY:Abnormal Other Systems: Patient seen and examined by myself today in follow-up, patient remained intubated on ventilator Patient examined hemodialysis, blood pressure stable Objective vital signs Vital Sign Date Time Temp Pulse Resp B/P (MAP) Pulse Ox O2 Delivery O2 Flow Rate FiO2 06/09/24 15:30 98.2 82 17 143/78 (99) 100 208.8 06/09/24 15:24 30 06/09/24 14:00 Mechanical Ventilator+ Total Intake and Output 06/08/24 06/08/24 06/09/24 15:00 23:00 07:00 Intake Total 596.13 ml 1265.0 ml 1318 ml Output Total 1150 ml 900 ml Balance 596.13 ml 115.0 ml 418 ml medications Current Medications Medications Dose Ordered Sig/Yousif Route Start Time Stop Time Status Last Admin Dose Admin Midazolam HCl 50 ml @ 1 mls/hr Q24H IV 05/25/24 06:30 05/29/24 09:11 5 MLS/HR Atorvastatin Calcium 40 mg HS NG 05/25/24 22:00 06/08/24 22:16 40 MG Ondansetron HCl 4 mg Q4HP PRN IV 05/25/24 10:45 Nitroglycerin 0.4 mg Q5MINP PRN SL 05/25/24 10:45 Albuterol 2.5 mg Q4HR NEB 05/25/24 14:00 06/09/24 10:20 2.5 MG Ipratropium [place] 0.5 mg Q4HR NEB 05/25/24 14:00 06/09/24 10:20 0.5 MG Fentanyl Citrate 250 ml @ 2.5 mls/hr Q24H IV 05/25/24 19:30 06/09/24 02:42 20 MLS/HR Ibuprofen 400 mg Q4HP PRN GT 05/26/24 01:15 05/26/24 01:42 400 MG Cefepime HCl 0.5 gm/Dextrose 50 ml @ 12.5 mls/hr Q24H IV 05/29/24 18:00 06/08/24 17:51 12.5 MLS/HR Enteral Nutritional Formula 1,000 ml 30ML/HR GT 05/29/24 09:45 06/05/24 15:30 1,000 ML Dexmedetomidine HCl 400 mcg/ Dextrose 100 ml @ 8.18 mls/hr [id number] IV 05/29/24 14:15 06/09/24 12:30 8.18 MLS/HR Hydralazine HCl 10 mg Q6HP PRN IV 05/29/24 16:30 06/07/24 04:41 10 MG Pantoprazole Sodium 40 mg DAILY IV 05/30/24 10:00 06/09/24 11:20 40 MG Bumetanide 2 mg BIDD IV 05/30/24 18:00 06/09/24 05:31 2 MG Calcium Acetate 1,334 mg Q8HR GT 06/02/24 14:00 06/09/24 14:18 1,334 MG Nicardipine HCl 250 ml @ 50 mls/hr Q5H IV 06/03/24 08:00 06/09/24 14:44 100 MLS/HR Carvedilol 25 mg Q12HR PO 06/03/24 22:00 06/09/24 11:21 25 MG Hydralazine HCl 50 mg Q12HR PO 06/09/24 10:00 06/09/24 11:20 50 MG Doxycycline Hyclate 100 ml @ 50 mls/hr Q12H IV 06/09/24 07:45 06/09/24 11:20 50 MLS/HR Micafungin Sodium 100 mg/Sodium Chloride 100 ml @ 100 mls/hr DAILY IV 06/09/24 10:00 06/09/24 14:10 100 MLS/HR Aspirin 81 mg DAILY PO 06/10/24 10:00 Acetylcysteine 100 mg Q8HR NEB 06/09/24 22:00 UNV Examination: LUNGS:Normal, CVS:Normal, MSK:Normal laboratory and microbiology Laboratory Tests 06/09/24 03:10 Test 06/09/24 03:10 Range/Units Serum Glucose 137 H 74-106 mg/dL Microbiology Date/Time Source Procedure Growth Status 06/07/24 10:50 Blood Blood Culture - Preliminary NO GROWTH AFTER 48 HOURS OF INCUBATION. Resulted 05/27/24 08:50 Nose MRSA Screen - Final Complete 05/25/24 08:30 Urine - [place] Urine Culture - Final Complete 05/25/24 06:50 Sputum Gram Stain - Final Complete 05/25/24 06:50 Respiratory Culture - Final Presumptive Tara albicans Complete Problem List/Assessment/Plan Problem List/Assessment/Plan CHANG superimposed on CKD secondary to ATN needing HD Acute respiratory failure, intubated on ventilator Septic shock CHF, Ef 40% Morbid obesity Anemia of CKD REC: Continue with UF to 3 L as tolerated Epogen 39671 IV post hemodialysis IV pressors for BP support IV Abx Will continue to follow Plan discussed with: Other (Nurse) My Orders My Orders Orders - MARIELA JONES MD Procedure Category Date Status Time Communication Order ORDERS 06/09/24 Transmitted 07:43 Dietary Evaluation Review Comments: 1) If GI is accessible consider Jevity 1.2 @ 70ml/hr x 24hr continuous feed goal rate as tolerated 2) If pt remains NPO >7 days consider TPN to meet at least 75% of estimated needs 3) Advance pt diet when medically feasible to a 2gm Sodium diet modified per CORPORATE LEGAL INTERN recommendations 4) Continue current plan of care Expected Outcomes/Goals: 1) Pt to receive nutrition support within 7 days of NPO status 2) Pt diet to advance 3) F/U in 2-3 days MARIELA JONES MD Jun 09, 2024 15:53
[2024-06-09] MEDS: EPOETIN ALFA-EPBX 10,000 UNIT/1ML VIAL SC ONE (21:32)
--- NOTE | 2024-06-09 21:54 | DVHPN2 ---
Progress Note - Dictate Date Seen: Jun 09, 2024 Medical Necessity Reason Pt with a Central, PICC or Fol: Yes The following are medically ne: Central Line, Putnam Catheter Reason for putnam catheter: Strict I&O Subjective Patient seen and examined at bedside. intubated on mechanical ventilator. Overnight events reviewed. vital signs Vital Sign Date Time Temp Pulse Resp B/P (MAP) Pulse Ox O2 Delivery O2 Flow Rate FiO2 06/09/24 21:35 78 145/66 06/09/24 19:53 22 98 30 06/09/24 19:30 98.2 208.8 06/09/24 18:23 Mechanical Ventilator+ Total Intake and Output 06/08/24 06/08/24 06/09/24 15:00 23:00 07:00 Intake Total 596.13 ml 1265.0 ml 1318 ml Output Total 1150 ml 900 ml Balance 596.13 ml 115.0 ml 418 ml medications Current Medications Medications Dose Ordered Sig/Yousif Route Start Time Stop Time Status Last Admin Dose Admin Midazolam HCl 50 ml @ 1 mls/hr Q24H IV 05/25/24 06:30 05/29/24 09:11 5 MLS/HR Atorvastatin Calcium 40 mg HS NG 05/25/24 22:00 06/09/24 21:36 40 MG Ondansetron HCl 4 mg Q4HP PRN IV 05/25/24 10:45 Nitroglycerin 0.4 mg Q5MINP PRN SL 05/25/24 10:45 Albuterol 2.5 mg Q4HR NEB 05/25/24 14:00 06/09/24 18:22 2.5 MG Ipratropium [place] 0.5 mg Q4HR NEB 05/25/24 14:00 06/09/24 18:22 0.5 MG Fentanyl Citrate 250 ml @ 2.5 mls/hr Q24H IV 05/25/24 19:30 06/09/24 17:50 10 MLS/HR Ibuprofen 400 mg Q4HP PRN GT 05/26/24 01:15 05/26/24 01:42 400 MG Cefepime HCl 0.5 gm/Dextrose 50 ml @ 12.5 mls/hr Q24H IV 05/29/24 18:00 06/09/24 17:41 12.5 MLS/HR Enteral Nutritional Formula 1,000 ml 30ML/HR GT 05/29/24 09:45 06/05/24 15:30 1,000 ML Dexmedetomidine HCl 400 mcg/ Dextrose 100 ml @ 8.18 mls/hr [id number] IV 05/29/24 14:15 06/09/24 12:30 8.18 MLS/HR Hydralazine HCl 10 mg Q6HP PRN IV 05/29/24 16:30 06/07/24 04:41 10 MG Pantoprazole Sodium 40 mg DAILY IV 05/30/24 10:00 06/09/24 11:20 40 MG Bumetanide 2 mg BIDD IV 05/30/24 18:00 06/09/24 17:16 2 MG Calcium Acetate 1,334 mg Q8HR GT 06/02/24 14:00 06/09/24 21:34 1,334 MG Nicardipine HCl 250 ml @ 50 mls/hr Q5H IV 06/03/24 08:00 06/09/24 21:34 100 MLS/HR Carvedilol 25 mg Q12HR PO 06/03/24 22:00 06/09/24 21:35 25 MG Hydralazine HCl 50 mg Q12HR PO 06/09/24 10:00 06/09/24 21:34 50 MG Doxycycline Hyclate 100 ml @ 50 mls/hr Q12H IV 06/09/24 07:45 06/09/24 21:34 50 MLS/HR Micafungin Sodium 100 mg/Sodium Chloride 100 ml @ 100 mls/hr DAILY IV 06/09/24 10:00 06/09/24 14:10 100 MLS/HR Aspirin 81 mg DAILY PO 06/10/24 10:00 Acetylcysteine 100 mg Q8HR NEB 06/09/24 22:00 objective Gen.: Patient lying in bed in medical ICU. Intubated on mechanical ventilator. Head: Normocephalic, atraumatic. Eyes: PERRLA. Ears: Normal external anatomy. Throat: Endotracheal tube and orogastric tube in place. Neck: Supple, trachea midline. Chest: Transmitted breath sounds bilaterally. Decreased air entry bilaterally. No wheezing. Bibasilar crackles. Cardiovascular: Positive S1, positive S2. Regular rate and rhythm. Abdomen: Positive bowel sounds in all 4 quadrants. Soft, nontender, nondistended. : Putnam in place. Normal external genitalia. Rectal: Deferred. Skin: Warm, dry. Intact. Extremities: 2+ radial pulses bilaterally. No lower extremity edema. Neuro: Off sedation laboratory and microbiology Laboratory Tests 06/09/24 03:10 Test 06/09/24 03:10 Range/Units Serum Glucose 137 H 74-106 mg/dL Assessment/Plan Impression: Acute hypoxic respiratory failure On mechanical ventilator Septic shock Elevated troponin Acute kidney injury Lactic acidosis Metabolic acidosis Multifocal pneumonia, likely gram negative Pulmonary edema AE COPD Events: Remains on vent support On AC mode; RR 22, VT 600, PEEP 8, FiO2 30% CPAP with PS 16, PEEP of 8 Patient opens her eyes. S/p hemodialysis today - removed 3.25 L Nephrology recs appreciated. Off Fentanyl On Precedex drip ABG reviewed, notable for alkalemia CXR demonstrates bilateral airspace disease - stable. No effusion or pneumothorax. Devices in place. Continue antibiotics Continue antifungal Nicardipine drip for blood pressure. Tube feeds for nutritional support Wound care Monitor hemoglobin Diurese as tolerated w/ Bumex Monitor renal function Hemodialysis per Nephrology Echo showed EF of 40%. We will get urine cultures Neurology recommendations appreciated. SBT/KAREN Patient opens eyes, not following commands. Awaiting for mentation to improve. Consider trach/PEG for liberation from vent if family wishes for aggressive care. CT head on 06/06/24 revealed the two foci of left frontal subcortical hemorrhage are less conspicuous - partially resolved. No new foci of hemorrhage. Neurology recs appreciated. Labs and imaging reviewed. Rest of plan as noted below. Plan: s/p intubation on mechanical ventilator. On AC mode; RR 22, VT 600, PEEP 8, FiO2 30% Titrate FIO2 to keep O2 saturation above 90%. VAP bundle. Daily ABG and CXR while intubated Off sedation Off pressors, hemodynamically stable. Continue bronchodilators. Continue antibiotics. F/u cultures. Pressors if necessary to maintain a mean arterial blood pressure greater than 65 mmHg. Cardiology recs appreciated. Monitor renal function Monitor electrolytes. Supplement as necessary. Monitor ins and outs. Nephrology recs appreciated. IV fluid hydration GI prophylaxis. DVT prophylaxis. Prognosis: Poor given patient's multiple co-morbidities. Condition: Critical Rest of plan per hospitalist and other consultants. A total of 35 minutes of critical care time was spent reviewing the patient record, examining the patient, making a diagnostic and therapeutic plan, discussing this plan with the medical personnel, following up on diagnostic studies and following the patient for clinical stability excluding any and all procedures. At least 50% of this time was spent in direct, [id number] contact. Thank you, COLUMNIST/COMMENTATOR Viral, for allowing me to participate in this patient's care. Further recommendations will depend on the patient's clinical course. Please do not hesitate to contact me if you have any questions or concerns. This medical document was created using an electronic medical record system with [employer] dictation system. Although these documentations are being carefully reviewed, there may still be some phonetic and typographical changes. The errors are purely typographical, due to imperfection on the software program, and do not reflect any compromise in the patient's medical care. Dietary Evaluation Review Comments: 1) If GI is accessible consider Jevity 1.2 @ 70ml/hr x 24hr continuous feed goal rate as tolerated 2) If pt remains NPO >7 days consider TPN to meet at least 75% of estimated needs 3) Advance pt diet when medically feasible to a 2gm Sodium diet modified per OUTREACH ASSISTANT recommendations 4) Continue current plan of care Expected Outcomes/Goals: 1) Pt to receive nutrition support within 7 days of NPO status 2) Pt diet to advance 3) F/U in 2-3 days Plan discussed with: Other (LUZMARIA Paz) Critical Care Time(min): 35 MELODY ELIZABETH MD Jun 09, 2024 21:54
[2024-06-09] MEDS: ACETYLCYSTEINE 10 %(100MG/ML) SOL 4ML NEB SCH (22:43)
[2024-06-10] VITALS (111 sets, daily range): BP systolic 71–212; BP diastolic 36–96; PULSE 61–94; RESP 12–32; TEMP 97.9–98.6; O2SAT 96–99
[2024-06-10 03:40] LABS: Basophils # (auto) 0 10 ^3/uL (0-0.2); Basophils % (auto) 0.3 % (0.0-2.0); Eosinophils # (auto) 0.2 10 ^3/uL (0-0.8); Eosinophils % (auto) 0.9 % (0.0-7.0); Hematocrit 31.8 % (36.0-46.0); Hemoglobin 10.2 g/dL (12.2-16.2); Lymphocytes # (auto) 1.2 10 ^3/uL (0.4-5.4); Lymphocytes % (auto) 7.4 % (10.0-50.0); Mean Corpuscular Hemoglobin 29.5 pg (28.0-32.0); Monocytes # (auto) 1.8 10 ^3/uL (0-1.3); Monocytes % (auto) 10.7 % (0.0-12.0); Neutrophils # (auto) 13.6 10 ^3/uL (1.6-8.6); Neutrophils % (auto) 80.7 % (37.0-80.0); Platelet Count (auto) 239 10^3/uL (140-450); Red Blood Cells 3.46 10^6/uL (4.0-5.20); Red Cell Distribution Width 16.5 % (11.8-14.3); White Blood Cell 16.8 10^3/uL (4.4-10.8)
[2024-06-10 04:00] LABS: Anion Gap 12 (5-15); Carbon Dioxide 25 mmol/L (20-31); Potassium 4.2 mmol/L (3.5-5.1)
[2024-06-10 04:01] LABS: Calcium 9.8 mg/dL (8.7-10.4)
[2024-06-10 04:06] LABS: BUN/Creatinine Ratio 17.5 (10.0-20.0)
[2024-06-10 04:07] LABS: Chloride 95 mmol/L (98-107); Glucose 116 mg/dL (74-106); Sodium 132 mmol/L (136-145)
[2024-06-10 04:08] LABS: Blood Urea Nitrogen 91 mg/dL (9-23)
--- NOTE | 2024-06-10 05:39 | DVH ---
CHEST RADIOGRAPH Indication: INTUBATED Technique: Single frontal view of the chest was obtained Comparison: XY CHEST PORTABLE on DOS: 06/09/24 FINDINGS: Lines and Tubes: Endotracheal tube terminates 7.5 cm above the nik. There is a left central venous catheter with its tip terminating in the superior vena cava. The enteric tube courses below the left hemidiaphragm and the tip extends outside the field of view. Lungs: Improved aeration in the bilateral lung dumont. Pleura: No effusion. No pneumothorax. Cardiomediastinal contours: Stable cardiovascular silhouette. Bones: No acute osseous abnormality. IMPRESSION: 1. Improved aeration in the bilateral lung dumont.
[2024-06-10 07:43] LABS: Base Excess -0.6 mmol/L (-2.0-3.0)
--- NOTE | 2024-06-10 09:48 | DVHPN2 ---
Subjective Patient was encephalopathic, but opening eyes. Reviewed: Care Plan, H&P, Labs, Medications, Previous Orders Changes from previous H/P or p: No Changes General: Per HPI Respiratory: Shortness of breath Objective Vitals Vital Signs Date Time Temp Pulse Resp B/P (MAP) Pulse Ox O2 Delivery O2 Flow Rate FiO2 06/10/24 08:09 79 22 135/70 (91) 98 30 06/10/24 07:00 98.4 209.1 06/10/24 06:00 Mechanical Ventilator+ Intake/Output Intake and Output 06/10/24 07:00 Intake Total 3353.62 ml Output Total 800 ml Balance 2553.62 ml Intake Oral 160 ml IV Total 3058.62 ml Tube Feeding 135 ml Output Urine Total 800 ml General Appearance: moderate distress, Other (Patient intubated and chemically sedated.) HEENT: Atraumatic, PERRLA, Other (Patient with tongue swelling.) Lungs: Clear to auscultation, Normal air movement, Other (Mechanical ventilation) Cardiovascular: Normal S1, Normal S2 Abdomen: Normal bowel sounds, Soft, No tenderness, No hepatospenomegaly Musculoskeletal: Normal sensory function, Normal motor function Extremities: No clubbing, No cyanosis, No edema, Normal pulses, No tenderness/swelling Neuro: Normal gait, Normal speech, Strength at 5/5 X4 ext Skin: Dry, Intact Psych/Mental Status: Mental status NL, Mood NL Medications Current Medications Medications Dose Ordered Sig/Yousif Route Start Time Stop Time Status Last Admin Dose Admin Midazolam HCl 50 ml @ 1 mls/hr Q24H IV 05/25/24 06:30 05/29/24 09:11 5 MLS/HR Atorvastatin Calcium 40 mg HS NG 05/25/24 22:00 06/09/24 21:36 40 MG Ondansetron HCl 4 mg Q4HP PRN IV 05/25/24 10:45 Nitroglycerin 0.4 mg Q5MINP PRN SL 05/25/24 10:45 Albuterol 2.5 mg Q4HR NEB 05/25/24 14:00 06/10/24 06:42 2.5 MG Ipratropium [place] 0.5 mg Q4HR NEB 05/25/24 14:00 06/10/24 06:42 0.5 MG Fentanyl Citrate 250 ml @ 2.5 mls/hr Q24H IV 05/25/24 19:30 06/10/24 05:22 20 MLS/HR Ibuprofen 400 mg Q4HP PRN GT 05/26/24 01:15 05/26/24 01:42 400 MG Cefepime HCl 0.5 gm/Dextrose 50 ml @ 12.5 mls/hr Q24H IV 05/29/24 18:00 06/09/24 17:41 12.5 MLS/HR Enteral Nutritional Formula 1,000 ml 30ML/HR GT 05/29/24 09:45 06/05/24 15:30 1,000 ML Dexmedetomidine HCl 400 mcg/ Dextrose 100 ml @ 8.18 mls/hr [id number] IV 05/29/24 14:15 06/09/24 12:30 8.18 MLS/HR Hydralazine HCl 10 mg Q6HP PRN IV 05/29/24 16:30 06/07/24 04:41 10 MG Pantoprazole Sodium 40 mg DAILY IV 05/30/24 10:00 06/09/24 11:20 40 MG Bumetanide 2 mg BIDD IV 05/30/24 18:00 06/09/24 17:16 2 MG Calcium Acetate 1,334 mg Q8HR GT 06/02/24 14:00 06/10/24 05:44 1,334 MG Nicardipine HCl 250 ml @ 50 mls/hr Q5H IV 06/03/24 08:00 06/10/24 08:01 100 MLS/HR Carvedilol 25 mg Q12HR PO 06/03/24 22:00 06/09/24 21:35 25 MG Hydralazine HCl 50 mg Q12HR PO 06/09/24 10:00 06/09/24 21:34 50 MG Doxycycline Hyclate 100 ml @ 50 mls/hr Q12H IV 06/09/24 07:45 06/09/24 21:34 50 MLS/HR Micafungin Sodium 100 mg/Sodium Chloride 100 ml @ 100 mls/hr DAILY IV 06/09/24 10:00 06/09/24 14:10 100 MLS/HR Aspirin 81 mg DAILY PO 06/10/24 10:00 Acetylcysteine 100 mg Q8HR NEB 06/09/24 22:00 06/10/24 06:42 100 MG Laboratory Results Laboratory Tests 06/10/24 03:05 Chemistry Test 06/10/24 03:05 Calcium Level 9.8 mg/dL (8.7-10.4) Urinalysis Test 05/25/24 08:30 05/28/24 01:30 Urine Color Yellow (Yellow) Urine Clarity Clear (Clear) Urine pH 7.5 (5.0-9.0) Urine Specific [place] 1.013 (1.001-1.035) Urine Protein 2+ (Negative) H Urine Ketones Negative (Negative) Urine Blood Negative /uL (Negative) Urine Nitrite Negative (Negative) Urine Bilirubin Negative (Negative) Urine Urobilinogen 8 mg/dL (Negative) H Urine Leukocyte Esterase Negative /uL (Negative) Urine RBC 5 /hpf (0 - 4) Urine WBC 1 /hpf (0 - 5) Urine Squamous Epithelial Cells Few /hpf (<5) Urine Bacteria None seen /hpf (None Seen) Urine Glucose Normal mg/dL (Normal) Urine Creatinine 248.25 mg/dL (30.0-125.0) H Urine Sodium 27 mmol/L (40-220) L Urine Total Protein 293.2 mg/dL (1-14) H Blood Gas Results Test 06/10/24 07:39 Arterial Blood pH 7.476 (7.350-7.450) FiO2 % 30.0 Microbiology Microbiology Date/Time Source Procedure Growth Status 06/07/24 10:50 Blood Blood Culture - Preliminary NO GROWTH AFTER 48 HOURS OF INCUBATION. Resulted 05/27/24 08:50 Nose MRSA Screen - Final Complete 05/25/24 08:30 Urine - [place] Urine Culture - Final Complete 05/25/24 06:50 Sputum Gram Stain - Final Complete 05/25/24 06:50 Respiratory Culture - Final Presumptive Tara albicans Complete Labs and/or images reviewed: Labs reviewed by me, Image(s) reviewed by me Assessment/Plan Assessment/Plan Impression: -severe sepsis with shock , Streptococcus pneumoniae -probable community-acquired pneumonia with Gram-positive cocci -sepsis with Gram-positive cocci -acute hypoxic respiratory failure with mechanical ventilation -obesity -acute kidney injury, anuric -NSTEMI, probably type 2 -hypoalbuminemia -? Angioedema Plan: Events: Patient tolerated CPAP yesterday for 4 hours. Neurologically improving. We will continue with spontaneous breathing trial daily. -patient continues to be off vasopressor therapy, hemodynamically stable, white blood cell count improving, plans for spontaneous breathing trial once patient awakens -bronchodilators -continue cefepime and Diflucan -continue current ventilator settings. Patient now on 30% FiO2 -nephrology consultation: Received HD yesterday with noted improvement with B/C -PUD, DVT prophylaxis -repeat labs, chest x-ray, ABG in a.m.. Critical care time spent with patient discussing and formulating plan of care: 90 minutes. This does not include time spent performing procedures. This medical document was created using an electronic medical record system with [employer] system. Although this document has been carefully reviewed, there may still be some phonetic and typographical errors. These areas are purely typographical due to imperfections of the software programs, and do not reflect any compromise in the patient's medical care. Plan discussed with: Patient, Son, Other (RN) My Orders Orders - OMAR PARK NP Procedure Category Date Status Time Acetylcysteine PHA 06/09/24 In Process Inhalation 10% 22:00 Cpap Trial For Am ORDERS 06/11/24 Transmitted 05:00 Cpap Trial For Am ORDERS 06/12/24 Transmitted 05:00 Cpap Trial For Am ORDERS 06/13/24 Transmitted 05:00 Cpap/Sed Vacation Med ORDERS 06/11/24 Transmitted Weaning 05:00 Cpap/Sed Vacation Med ORDERS 06/12/24 Transmitted Weaning 05:00 Cpap/Sed Vacation Med ORDERS 06/13/24 Transmitted Weaning 05:00 Cpap/Sed Vacation Med ORDERS 06/11/24 Transmitted Weaning 05:00 Cpap/Sed Vacation Med ORDERS 06/12/24 Transmitted Weaning 05:00 Cpap/Sed Vacation Med ORDERS 06/13/24 Transmitted Weaning 05:00 Date of Service: Jun 10, 2024 Billing Provider: OMAR PARK NP Common Visit Codes: [id number] CARE 30-74 MIN OMAR PARK NP Jun 10, 2024 09:48
[2024-06-10] MEDS: ASPirin 81 mg TAB PO SCH (10:40)
--- NOTE | 2024-06-10 10:55 | DVHPN2 ---
Consult Progress Note Subjective Other Systems: The patient remains on a nicardipine drip. The patient remains chemically sedated and mechanically ventilated Objective vital signs Vital Sign Date Time Temp Pulse Resp B/P (MAP) Pulse Ox O2 Delivery O2 Flow Rate FiO2 06/10/24 10:44 109/55 06/10/24 10:43 72 06/10/24 08:09 22 98 30 06/10/24 07:00 98.4 209.1 06/10/24 06:00 Mechanical Ventilator+ Total Intake and Output 06/09/24 06/09/24 06/10/24 15:00 23:00 07:00 Intake Total 1298.17 ml 950.45 ml 1105 ml Output Total 550 ml 250 ml Balance 1298.17 ml 400.45 ml 855 ml medications Current Medications Medications Dose Ordered Sig/Yousif Route Start Time Stop Time Status Last Admin Dose Admin Midazolam HCl 50 ml @ 1 mls/hr Q24H IV 05/25/24 06:30 05/29/24 09:11 5 MLS/HR Atorvastatin Calcium 40 mg HS NG 05/25/24 22:00 06/09/24 21:36 40 MG Ondansetron HCl 4 mg Q4HP PRN IV 05/25/24 10:45 Nitroglycerin 0.4 mg Q5MINP PRN SL 05/25/24 10:45 Albuterol 2.5 mg Q4HR NEB 05/25/24 14:00 06/10/24 10:37 2.5 MG Ipratropium [place] 0.5 mg Q4HR NEB 05/25/24 14:00 06/10/24 10:36 0.5 MG Fentanyl Citrate 250 ml @ 2.5 mls/hr Q24H IV 05/25/24 19:30 06/10/24 05:22 20 MLS/HR Ibuprofen 400 mg Q4HP PRN GT 05/26/24 01:15 05/26/24 01:42 400 MG Cefepime HCl 0.5 gm/Dextrose 50 ml @ 12.5 mls/hr Q24H IV 05/29/24 18:00 06/09/24 17:41 12.5 MLS/HR Enteral Nutritional Formula 1,000 ml 30ML/HR GT 05/29/24 09:45 06/05/24 15:30 1,000 ML Dexmedetomidine HCl 400 mcg/ Dextrose 100 ml @ 8.18 mls/hr [id number] IV 05/29/24 14:15 06/09/24 12:30 8.18 MLS/HR Hydralazine HCl 10 mg Q6HP PRN IV 05/29/24 16:30 06/07/24 04:41 10 MG Pantoprazole Sodium 40 mg DAILY IV 05/30/24 10:00 06/10/24 10:39 40 MG Bumetanide 2 mg BIDD IV 05/30/24 18:00 06/10/24 10:39 2 MG Calcium Acetate 1,334 mg Q8HR GT 06/02/24 14:00 06/10/24 05:44 1,334 MG Nicardipine HCl 250 ml @ 50 mls/hr Q5H IV 06/03/24 08:00 06/10/24 10:42 75 MLS/HR Carvedilol 25 mg Q12HR PO 06/03/24 22:00 06/10/24 10:43 25 MG Hydralazine HCl 50 mg Q12HR PO 06/09/24 10:00 06/10/24 10:44 50 MG Doxycycline Hyclate 100 ml @ 50 mls/hr Q12H IV 06/09/24 07:45 06/10/24 10:40 50 MLS/HR Micafungin Sodium 100 mg/Sodium Chloride 100 ml @ 100 mls/hr DAILY IV 06/09/24 10:00 06/10/24 10:40 100 MLS/HR Aspirin 81 mg DAILY PO 06/10/24 10:00 06/10/24 10:40 81 MG Acetylcysteine 100 mg Q8HR NEB 06/09/24 22:00 06/10/24 06:42 100 MG Examination: GENERAL:Abnormal, LUNGS:Abnormal (Mechanically ventilated, FiO2 30%, PEEP 8.0), CVS:Normal, NEURO:Abnormal (Chemically sedated, on Precedex and fentanyl) laboratory and microbiology Laboratory Tests 06/10/24 03:05 Test 06/10/24 03:05 Range/Units Serum Glucose 116 H 74-106 mg/dL Problem List/Assessment/Plan Problem List/Assessment/Plan Septic shock Acute on chronic HFrEF, NYHA class IV, newly diagnosed Acute hypoxic respiratory failure NSTEMI, questionable Type I Mitral valve regurgitation, mild degree Hypertensive urgency Subcortical parenchymal hemorrhage Acute kidney injury on HD Morbidly obese Plan/Recommendation (Dr. Benson) * Echocardiogram revealed EF 40% with severe concentric LVH * GDMT for CHF as renal function permits. Currently on Coreg * Lipid-lowering agent. Reinitiate single antiplatelet therapy * ASA therapy cleared by neurology team * Cardiac surveillance: Monitor and notify for any ECG changes * Antibiotics per primary care team * Nephrology/Neurology recommendations * DVT/VTE prophylaxis: SCDs We will further consider ischemic work-up once patient's neurological status is determined to be intact. Patient pending CPAP trial today. Thank you for allowing us to care for this patient. Please call with any questions or concerns. Critical care time spent: 30 minutes. This medical document was created using an electronic medical record system with voice recognition software and computerized dictation system. Although this document has been carefully reviewed, there might still be some phonetic and typographical errors. Occasional wrong-word or ``sound-alike substitutions may have occurred due to the inherent limitations of voice recognition software. These areas are purely typographical due to imperfections of the software programs and do not reflect any compromise in the patient's medical care. Please read the chart carefully and recognize, using context, where these substitutions have occurred. Plan discussed with: Other (Bedside RN) Dietary Evaluation Review Comments: 1) If GI is accessible consider Jevity 1.2 @ 70ml/hr x 24hr continuous feed goal rate as tolerated 2) If pt remains NPO >7 days consider TPN to meet at least 75% of estimated needs 3) Advance pt diet when medically feasible to a 2gm Sodium diet modified per CERTIFIED CREDIT COUNSELOR recommendations 4) Continue current plan of care Expected Outcomes/Goals: 1) Pt to receive nutrition support within 7 days of NPO status 2) Pt diet to advance 3) F/U in 2-3 days Date of Service: Jun 10, 2024 Billing Provider: CJ BENSON MD Common Visit Codes: [id number] CARE 30-74 MIN BOB TREVINO Jun 10, 2024 10:55
--- NOTE | 2024-06-10 10:59 | DVHPN2 ---
Progress Note - Dictate Date Seen: Jun 10, 2024 Medical Necessity Reason Pt with a Central, PICC or Fol: Yes The following are medically ne: Central Line, Putnam Catheter Reason for putnam catheter: Strict I&O Subjective Ms. Pandya is a 53 years old right-handed female with a history of morbid obesity, hypertension, the patient was was brought to the [facility] on 05/25/24 with a chief company of altered mental status, respiratory distress. I have seen and examined the patient, I have talked to her nurse, her boyfriend is in the room. She was awake, not sure if he follows, she does not movement of extremities Fentanyl 100 mcg/hour, Precedex 0.2 units/kg/hr Urine culture, 05/25/2024: Negative Blood culture, 05/25/2024: Streptococcus pneumoniae UDS, 05/25/2024: Negative Urinalysis, 05/25/2024: WBC: 1, urine leukocyte esterase: Negative ABG, 05/25/2024: Metabolic acidosis, hypoxia, 05/26/2024: Metabolic acidosis, hypoxia, 05/27/24: Metabolic acidosis, hypoxia WBC/HB/PLT/MCV, 06/02/2024: 22.4/9/342/89.4 06/09/2024: 19.6/9.4/235/91.6 BUN/CR, 05/26/2024: 62/7.01 06/02/2024: 123/6.59, 06/09/2024: 137/6.32 HGB A1c, 05/25/2024: 5.6 Lactic acid, 05/25/2024: 3.6, 4.6, 4.2, 05/26/2024: 3.6 Troponin one high sensitivity, 05/25/2024: 1060, 1354, 1262 TBI/AST/ALT/AP, 05/26/2024: 2/246/167/98, 06/07/2024: 0.9/139/464/93 TG/HDL/LDL/HDL, 05/25/2024: 192/98/40/8 Vitamin B12, 06/02/2024: 836 TSH, 05/25/2024: 0.57 Chest x-ray, 05/25/2024: 1. Distal tip of the endotracheal tube is approximately 5.5 cm above the level of the nik. 2. Poorly visualized enteric tube at its distal aspect. Appears to reach the gastroesophageal junction, although not visualized distal to this point. Correlate with clinical findings. 3. Bilateral airspace opacities and interstitial opacities, may be due to multifocal pneumonia or pulmonary edema in the appropriate clinical setting CT head, 05/25/2024: No gross acute intracranial process CT head, 06/02/24: 1. Interval development of 2 foci of subcortical parenchymal hemorrhage in the left frontal lobe. No mass effect or midline shift. 2. Moderate amount of fluid in the posterior nasopharynx likely related to intubation. Recommend suctioning to prevent aspiration. 3. Small bilateral mastoid effusions. We are in the process of reaching out to the nurse or physician in charge of the patient to convey the findings. CT head, 06/04/2024: Redemonstrated are 2 hyperdense foci in the subcortical left frontal lobe which may represent small foci of parenchymal hemorrhage. There is no significant surrounding edema or associated mass effect CT head, 06/06/2024: The 2 foci of left frontal subcortical hemorrhage are less conspicuous in the current exam partially resolved. No new foci of hemorrhage vital signs Vital Sign Date Time Temp Pulse Resp B/P (MAP) Pulse Ox O2 Delivery O2 Flow Rate FiO2 06/10/24 10:44 109/55 06/10/24 10:43 72 06/10/24 08:09 22 98 30 06/10/24 07:00 98.4 209.1 06/10/24 06:00 Mechanical Ventilator+ Total Intake and Output 06/09/24 06/09/24 06/10/24 15:00 23:00 07:00 Intake Total 1298.17 ml 950.45 ml 1105 ml Output Total 550 ml 250 ml Balance 1298.17 ml 400.45 ml 855 ml medications Current Medications Medications Dose Ordered Sig/Yousif Route Start Time Stop Time Status Last Admin Dose Admin Midazolam HCl 50 ml @ 1 mls/hr Q24H IV 05/25/24 06:30 05/29/24 09:11 5 MLS/HR Atorvastatin Calcium 40 mg HS NG 05/25/24 22:00 06/09/24 21:36 40 MG Ondansetron HCl 4 mg Q4HP PRN IV 05/25/24 10:45 Nitroglycerin 0.4 mg Q5MINP PRN SL 05/25/24 10:45 Albuterol 2.5 mg Q4HR NEB 05/25/24 14:00 06/10/24 10:37 2.5 MG Ipratropium [place] 0.5 mg Q4HR NEB 05/25/24 14:00 06/10/24 10:36 0.5 MG Fentanyl Citrate 250 ml @ 2.5 mls/hr Q24H IV 05/25/24 19:30 06/10/24 05:22 20 MLS/HR Ibuprofen 400 mg Q4HP PRN GT 05/26/24 01:15 05/26/24 01:42 400 MG Cefepime HCl 0.5 gm/Dextrose 50 ml @ 12.5 mls/hr Q24H IV 05/29/24 18:00 06/09/24 17:41 12.5 MLS/HR Enteral Nutritional Formula 1,000 ml 30ML/HR GT 05/29/24 09:45 06/05/24 15:30 1,000 ML Dexmedetomidine HCl 400 mcg/ Dextrose 100 ml @ 8.18 mls/hr [id number] IV 05/29/24 14:15 06/09/24 12:30 8.18 MLS/HR Hydralazine HCl 10 mg Q6HP PRN IV 05/29/24 16:30 06/07/24 04:41 10 MG Pantoprazole Sodium 40 mg DAILY IV 05/30/24 10:00 06/10/24 10:39 40 MG Bumetanide 2 mg BIDD IV 05/30/24 18:00 06/10/24 10:39 2 MG Calcium Acetate 1,334 mg Q8HR GT 06/02/24 14:00 06/10/24 05:44 1,334 MG Nicardipine HCl 250 ml @ 50 mls/hr Q5H IV 06/03/24 08:00 06/10/24 10:42 75 MLS/HR Carvedilol 25 mg Q12HR PO 06/03/24 22:00 06/10/24 10:43 25 MG Hydralazine HCl 50 mg Q12HR PO 06/09/24 10:00 06/10/24 10:44 50 MG Doxycycline Hyclate 100 ml @ 50 mls/hr Q12H IV 06/09/24 07:45 06/10/24 10:40 50 MLS/HR Micafungin Sodium 100 mg/Sodium Chloride 100 ml @ 100 mls/hr DAILY IV 06/09/24 10:00 06/10/24 10:40 100 MLS/HR Aspirin 81 mg DAILY PO 06/10/24 10:00 06/10/24 10:40 81 MG Acetylcysteine 100 mg Q8HR NEB 06/09/24 22:00 06/10/24 06:42 100 MG objective The patient is well-nourished and well-developed with no distress. The patient is intubated MENTAL STATUS: Subjective CRANIAL NERVES: Pupils are equal, round and reactive.There are corneal reflexes and conjugated eye movement. No signs of facial weakness. There are gagging or coughing reflexes SENSATION: Okay to painful stimuli MOTOR: Normal tone in the upper and lower extremity. Normal muscle bulk. No fasciculations. No spontaneous movement. REFLEXES: Deep tendon reflexes are symmetrical. No pathological reflexes. CEREBELLAR/COORDINATION: Deferred GAIT/STATION: deferred. laboratory and microbiology Laboratory Tests 06/10/24 03:05 Test 06/10/24 03:05 Range/Units Serum Glucose 116 H 74-106 mg/dL Problem List Altered mental status/Coma Hypoxic encephalopathy secondary to respiratory failure Metabolic encephalopathy secondary to acidosis, sepsis, septic shock, kidney failure Heart attack Pneumonia Sepsis, septic shock Acute on chronic kidney failure Acute petechial hemorrhage in the left frontal lobe, improving on follow-up CT Assessment/Plan Monitoring Supportive treatment ICU care Follow-up labs EEG Stabilize vitals Respiratory support/vent management Oxygen IV antibiotics GI prophylaxis/Protonix DVT prophylaxis/heparin Nephrology on case Pulmonology on case More recommendation per clinical course This medical document was created using an electronic medical record system with [employer] dictation system. Although this document has been carefully reviewed, there may still be some phonetic and typographical errors. These areas are purely typographical due to imperfections of the software programs, and do not reflect any compromise in the patient's medical care Prognosis guarded Dietary Evaluation Review Comments: 1) If GI is accessible consider Jevity 1.2 @ 70ml/hr x 24hr continuous feed goal rate as tolerated 2) If pt remains NPO >7 days consider TPN to meet at least 75% of estimated needs 3) Advance pt diet when medically feasible to a 2gm Sodium diet modified per [employer] recommendations 4) Continue current plan of care Expected Outcomes/Goals: 1) Pt to receive nutrition support within 7 days of NPO status 2) Pt diet to advance 3) F/U in 2-3 days Plan discussed with: Spouse, Other PILAR HOOD MD Jun 10, 2024 10:59
--- NOTE | 2024-06-10 14:22 | DVHPN2 ---
Progress Note Date Seen: Jun 10, 2024 Medical Necessity Reason Pt with a Central, PICC or Fol: Yes The following are medically ne: Central Line, Putnam Catheter Reason for putnam catheter: Strict I&O Subjective Review of Systems: RESPIRATORY:Abnormal Other Systems: Patient seen and examined by myself today in follow-up Patient remained intubated on ventilator Objective vital signs Vital Sign Date Time Temp Pulse Resp B/P (MAP) Pulse Ox O2 Delivery O2 Flow Rate FiO2 06/10/24 13:15 73 14 136/70 (92) 98 30 06/10/24 12:00 Mechanical Ventilator+ 06/10/24 07:00 98.4 209.1 Total Intake and Output 06/09/24 06/09/24 06/10/24 15:00 23:00 07:00 Intake Total 1298.17 ml 950.45 ml 1105 ml Output Total 550 ml 250 ml Balance 1298.17 ml 400.45 ml 855 ml medications Current Medications Medications Dose Ordered Sig/Yousif Route Start Time Stop Time Status Last Admin Dose Admin Midazolam HCl 50 ml @ 1 mls/hr Q24H IV 05/25/24 06:30 05/29/24 09:11 5 MLS/HR Atorvastatin Calcium 40 mg HS NG 05/25/24 22:00 06/09/24 21:36 40 MG Ondansetron HCl 4 mg Q4HP PRN IV 05/25/24 10:45 Nitroglycerin 0.4 mg Q5MINP PRN SL 05/25/24 10:45 Albuterol 2.5 mg Q4HR NEB 05/25/24 14:00 06/10/24 10:37 2.5 MG Ipratropium [place] 0.5 mg Q4HR NEB 05/25/24 14:00 06/10/24 10:36 0.5 MG Fentanyl Citrate 250 ml @ 2.5 mls/hr Q24H IV 05/25/24 19:30 06/10/24 05:22 20 MLS/HR Ibuprofen 400 mg Q4HP PRN GT 05/26/24 01:15 05/26/24 01:42 400 MG Cefepime HCl 0.5 gm/Dextrose 50 ml @ 12.5 mls/hr Q24H IV 05/29/24 18:00 06/09/24 17:41 12.5 MLS/HR Enteral Nutritional Formula 1,000 ml 30ML/HR GT 05/29/24 09:45 06/05/24 15:30 1,000 ML Dexmedetomidine HCl 400 mcg/ Dextrose 100 ml @ 8.18 mls/hr [id number] IV 05/29/24 14:15 06/09/24 12:30 8.18 MLS/HR Hydralazine HCl 10 mg Q6HP PRN IV 05/29/24 16:30 06/07/24 04:41 10 MG Pantoprazole Sodium 40 mg DAILY IV 05/30/24 10:00 06/10/24 10:39 40 MG Bumetanide 2 mg BIDD IV 05/30/24 18:00 06/10/24 10:39 2 MG Calcium Acetate 1,334 mg Q8HR GT 06/02/24 14:00 06/10/24 05:44 1,334 MG Nicardipine HCl 250 ml @ 50 mls/hr Q5H IV 06/03/24 08:00 06/10/24 10:42 75 MLS/HR Carvedilol 25 mg Q12HR PO 06/03/24 22:00 06/10/24 10:43 25 MG Hydralazine HCl 50 mg Q12HR PO 06/09/24 10:00 06/10/24 10:44 50 MG Doxycycline Hyclate 100 ml @ 50 mls/hr Q12H IV 06/09/24 07:45 06/10/24 10:40 50 MLS/HR Micafungin Sodium 100 mg/Sodium Chloride 100 ml @ 100 mls/hr DAILY IV 06/09/24 10:00 06/10/24 10:40 100 MLS/HR Aspirin 81 mg DAILY PO 06/10/24 10:00 06/10/24 10:40 81 MG Acetylcysteine 100 mg Q8HR NEB 06/09/24 22:00 06/10/24 06:42 100 MG Examination: LUNGS:Normal, CVS:Normal, MSK:Normal laboratory and microbiology Laboratory Tests 06/10/24 03:05 Test 06/10/24 03:05 Range/Units Serum Glucose 116 H 74-106 mg/dL Microbiology Date/Time Source Procedure Growth Status 06/09/24 17:21 Urine - Putnam Port Urine Culture - Preliminary Resulted 06/07/24 10:50 Blood Blood Culture - Preliminary NO GROWTH AFTER 72 HOURS OF INCUBATION. Resulted 05/27/24 08:50 Nose MRSA Screen - Final Complete 05/25/24 06:50 Sputum Gram Stain - Final Complete 05/25/24 06:50 Respiratory Culture - Final Presumptive Tara albicans Complete Problem List/Assessment/Plan Problem List/Assessment/Plan CHANG superimposed on CKD secondary to ATN needing HD Acute respiratory failure, intubated on ventilator Septic shock CHF, Ef 40% Morbid obesity Anemia of CKD REC: Hemodialysis tomorrow Epogen 73090 IV post hemodialysis IV pressors for BP support IV Abx Will continue to follow Plan discussed with: Other (Nurse) Dietary Evaluation Review Comments: 1) If GI is accessible consider Jevity 1.2 @ 70ml/hr x 24hr continuous feed goal rate as tolerated 2) If pt remains NPO >7 days consider TPN to meet at least 75% of estimated needs 3) Advance pt diet when medically feasible to a 2gm Sodium diet modified per NURSE INFORMATICIST recommendations 4) Continue current plan of care Expected Outcomes/Goals: 1) Pt to receive nutrition support within 7 days of NPO status 2) Pt diet to advance 3) F/U in 2-3 days MARIELA JONES MD Jun 10, 2024 14:22
--- NOTE | 2024-06-10 20:53 | DVHPN2 ---
Progress Note - Dictate Date Seen: Jun 10, 2024 Medical Necessity Reason Pt with a Central, PICC or Fol: Yes The following are medically ne: Central Line, Putnam Catheter Reason for putnam catheter: Strict I&O Subjective Patient seen and examined at bedside. intubated on mechanical ventilator. Overnight events reviewed. vital signs Vital Sign Date Time Temp Pulse Resp B/P (MAP) Pulse Ox O2 Delivery O2 Flow Rate FiO2 06/10/24 19:52 65 22 89/43 (58) 96 30 06/10/24 19:00 98.2 208.8 06/10/24 18:00 Mechanical Ventilator+ Total Intake and Output 06/09/24 06/09/24 06/10/24 15:00 23:00 07:00 Intake Total 1298.17 ml 950.45 ml 1225 ml Output Total 550 ml 250 ml Balance 1298.17 ml 400.45 ml 975 ml medications Current Medications Medications Dose Ordered Sig/Yousif Route Start Time Stop Time Status Last Admin Dose Admin Midazolam HCl 50 ml @ 1 mls/hr Q24H IV 05/25/24 06:30 05/29/24 09:11 5 MLS/HR Atorvastatin Calcium 40 mg HS NG 05/25/24 22:00 06/09/24 21:36 40 MG Ondansetron HCl 4 mg Q4HP PRN IV 05/25/24 10:45 Nitroglycerin 0.4 mg Q5MINP PRN SL 05/25/24 10:45 Albuterol 2.5 mg Q4HR NEB 05/25/24 14:00 06/10/24 18:50 2.5 MG Ipratropium [place] 0.5 mg Q4HR NEB 05/25/24 14:00 06/10/24 18:50 0.5 MG Fentanyl Citrate 250 ml @ 2.5 mls/hr Q24H IV 05/25/24 19:30 06/10/24 05:22 20 MLS/HR Ibuprofen 400 mg Q4HP PRN GT 05/26/24 01:15 05/26/24 01:42 400 MG Cefepime HCl 0.5 gm/Dextrose 50 ml @ 12.5 mls/hr Q24H IV 05/29/24 18:00 06/10/24 18:06 12.5 MLS/HR Enteral Nutritional Formula 1,000 ml 30ML/HR GT 05/29/24 09:45 06/10/24 18:05 1,000 ML Dexmedetomidine HCl 400 mcg/ Dextrose 100 ml @ 8.18 mls/hr [id number] IV 05/29/24 14:15 06/10/24 15:02 20.45 MLS/HR Hydralazine HCl 10 mg Q6HP PRN IV 05/29/24 16:30 06/07/24 04:41 10 MG Pantoprazole Sodium 40 mg DAILY IV 05/30/24 10:00 06/10/24 10:39 40 MG Bumetanide 2 mg BIDD IV 05/30/24 18:00 06/10/24 18:05 2 MG Calcium Acetate 1,334 mg Q8HR GT 06/02/24 14:00 06/10/24 15:00 1,334 MG Nicardipine HCl 250 ml @ 50 mls/hr Q5H IV 06/03/24 08:00 06/10/24 15:04 75 MLS/HR Carvedilol 25 mg Q12HR PO 06/03/24 22:00 06/10/24 10:43 25 MG Hydralazine HCl 50 mg Q12HR PO 06/09/24 10:00 06/10/24 10:44 50 MG Doxycycline Hyclate 100 ml @ 50 mls/hr Q12H IV 06/09/24 07:45 06/10/24 20:29 50 MLS/HR Micafungin Sodium 100 mg/Sodium Chloride 100 ml @ 100 mls/hr DAILY IV 06/09/24 10:00 06/10/24 10:40 100 MLS/HR Aspirin 81 mg DAILY PO 06/10/24 10:00 06/10/24 10:40 81 MG Acetylcysteine 100 mg Q8HR NEB 06/09/24 22:00 06/10/24 15:07 100 MG objective Gen.: Patient lying in bed in medical ICU. Intubated on mechanical ventilator. Head: Normocephalic, atraumatic. Eyes: PERRLA. Ears: Normal external anatomy. Throat: Endotracheal tube and orogastric tube in place. Neck: Supple, trachea midline. Chest: Transmitted breath sounds bilaterally. Decreased air entry bilaterally. No wheezing. Bibasilar crackles. Cardiovascular: Positive S1, positive S2. Regular rate and rhythm. Abdomen: Positive bowel sounds in all 4 quadrants. Soft, nontender, nondistended. : Putnam in place. Normal external genitalia. Rectal: Deferred. Skin: Warm, dry. Intact. Extremities: 2+ radial pulses bilaterally. No lower extremity edema. Neuro: Off sedation laboratory and microbiology Laboratory Tests 06/10/24 03:05 Test 06/10/24 03:05 Range/Units Serum Glucose 116 H 74-106 mg/dL Assessment/Plan Impression: Acute hypoxic respiratory failure On mechanical ventilator Septic shock Elevated troponin Acute kidney injury Lactic acidosis Metabolic acidosis Multifocal pneumonia, likely gram negative Pulmonary edema AE COPD Events: CPAP with PS 16, PEEP of 8, FiO2 30% S/p hemodialysis yesterday - removed 3.25 L Nephrology recs appreciated. Off Fentanyl On Precedex drip ABG reviewed, notable for alkalemia CXR demonstrates improved aeration in the bilateral lung dumont. No effusion or pneumothorax. Devices in place. Continue antibiotics Continue antifungal Nicardipine drip for blood pressure. Tube feeds for nutritional support Wound care Monitor hemoglobin Diurese as tolerated w/ Bumex Monitor renal function Hemodialysis per Nephrology Echo showed EF of 40%. We will get urine cultures Neurology recommendations appreciated. SBT/KAREN Patient opens eyes, not following commands. Awaiting for mentation to improve. Consider trach/PEG for liberation from vent if family wishes for aggressive care. CT head on 06/06/24 revealed the two foci of left frontal subcortical hemorrhage are less conspicuous - partially resolved. No new foci of hemorrhage. Neurology recs appreciated. Labs and imaging reviewed. Rest of plan as noted below. Plan: s/p intubation on mechanical ventilator. On AC mode; RR 22, VT 600, PEEP 8, FiO2 30% Titrate FIO2 to keep O2 saturation above 90%. VAP bundle. Daily ABG and CXR while intubated Off sedation Off pressors, hemodynamically stable. Continue bronchodilators. Continue antibiotics. F/u cultures. Pressors if necessary to maintain a mean arterial blood pressure greater than 65 mmHg. Cardiology recs appreciated. Monitor renal function Monitor electrolytes. Supplement as necessary. Monitor ins and outs. Nephrology recs appreciated. IV fluid hydration GI prophylaxis. DVT prophylaxis. Prognosis: Poor given patient's multiple co-morbidities. Condition: Critical Rest of plan per hospitalist and other consultants. A total of 35 minutes of critical care time was spent reviewing the patient record, examining the patient, making a diagnostic and therapeutic plan, discussing this plan with the medical personnel, following up on diagnostic studies and following the patient for clinical stability excluding any and all procedures. At least 50% of this time was spent in direct, [id number] contact. Thank you, [employer], for allowing me to participate in this patient's care. Further recommendations will depend on the patient's clinical course. Please do not hesitate to contact me if you have any questions or concerns. This medical document was created using an electronic medical record system with [employer] dictation system. Although these documentations are being carefully reviewed, there may still be some phonetic and typographical changes. The errors are purely typographical, due to imperfection on the software program, and do not reflect any compromise in the patient's medical care. Dietary Evaluation Review Comments: 1) If GI is accessible consider Jevity 1.2 @ 70ml/hr x 24hr continuous feed goal rate as tolerated 2) If pt remains NPO >7 days consider TPN to meet at least 75% of estimated needs 3) Advance pt diet when medically feasible to a 2gm Sodium diet modified per GROUP TESTER recommendations 4) Continue current plan of care Expected Outcomes/Goals: 1) Pt to receive nutrition support within 7 days of NPO status 2) Pt diet to advance 3) F/U in 2-3 days Plan discussed with: Other (LUZMARIA Paz) Critical Care Time(min): 35 MELODY ELIZABETH MD Jun 10, 2024 20:53
[2024-06-11] VITALS (207 sets, daily range): BP systolic 64–234; BP diastolic 33–122; PULSE 62–98; RESP 12–42; TEMP 97.9–99; O2SAT 94–100
[2024-06-11 03:59] LABS: Basophils # (auto) 0.1 10 ^3/uL (0-0.2); Basophils % (auto) 0.5 % (0.0-2.0); Eosinophils # (auto) 0.2 10 ^3/uL (0-0.8); Eosinophils % (auto) 1.9 % (0.0-7.0); Hematocrit 30.6 % (36.0-46.0); Hemoglobin 9.9 g/dL (12.2-16.2); Lymphocytes # (auto) 1.7 10 ^3/uL (0.4-5.4); Lymphocytes % (auto) 13.2 % (10.0-50.0); Mean Corpuscular Hemoglobin 29.6 pg (28.0-32.0); Mean Corpuscular Hgb Conc. 32.3 g/dL (32.0-36.0); Mean Corpuscular Volume 91.5 fL (80.0-100.0); Monocytes # (auto) 1.4 10 ^3/uL (0-1.3); Monocytes % (auto) 10.5 % (0.0-12.0); Neutrophils # (auto) 9.5 10 ^3/uL (1.6-8.6); Neutrophils % (auto) 73.9 % (37.0-80.0); Platelet Count (auto) 254 10^3/uL (140-450); Red Blood Cells 3.34 10^6/uL (4.0-5.20); Red Cell Distribution Width 16.2 % (11.8-14.3); White Blood Cell 12.9 10^3/uL (4.4-10.8)
[2024-06-11 04:34] LABS: Carbon Dioxide 21 mmol/L (20-31)
[2024-06-11 04:35] LABS: Anion Gap 14 (5-15); Potassium 3.8 mmol/L (3.5-5.1)
[2024-06-11 04:36] LABS: Calcium 9.9 mg/dL (8.7-10.4)
[2024-06-11 04:41] LABS: BUN/Creatinine Ratio 18.4 (10.0-20.0); Glucose 98 mg/dL (74-106)
[2024-06-11 04:44] LABS: Chloride 95 mmol/L (98-107); Sodium 130 mmol/L (136-145)
[2024-06-11 04:45] LABS: Blood Urea Nitrogen 102 mg/dL (9-23)
--- NOTE | 2024-06-11 05:39 | DVH ---
CHEST RADIOGRAPH Indication: INTUBATED Technique: Single frontal view of the chest was obtained Comparison: XY CHEST PORTABLE on DOS: 06/10/24 FINDINGS: Lines and Tubes: The endotracheal tube terminates 6.4 cm above the nik. Left central venous roel ter terminates in the superior vena cava. Enteric tube terminates in the stomach. Lungs: Bilateral opacities, left greater than right, increased since prior study. Pleura: No effusion. No pneumothorax. Cardiomediastinal contours: Cardiomegaly. Bones: No acute osseous abnormality. IMPRESSION: 1. Stable position of the support lines and tubes. 2. Bilateral opacities increased since prior study.
[2024-06-11 09:25] LABS: Base Excess -2.5 mmol/L (-2.0-3.0)
--- NOTE | 2024-06-11 11:50 | DVHPN2 ---
Progress Note Date Seen: Jun 11, 2024 Medical Necessity Reason Pt with a Central, PICC or Fol: Yes The following are medically ne: Central Line, Putnam Catheter Reason for putnam catheter: Strict I&O Subjective Review of Systems: RESPIRATORY:Abnormal Other Systems: Patient seen and examined by myself today in follow-up, Patient remained intubated on ventilator Patient examined hemodialysis, blood pressure stable Objective vital signs Vital Sign Date Time Temp Pulse Resp B/P (MAP) Pulse Ox O2 Delivery O2 Flow Rate FiO2 06/11/24 11:15 155/73 06/11/24 10:26 80 22 98 30 06/11/24 06:45 98.2 208.8 06/11/24 05:54 Mechanical Ventilator+ Total Intake and Output 06/10/24 06/10/24 06/11/24 15:00 23:00 07:00 Intake Total 1098.61 ml 935.81 ml 586.18 ml Output Total 1200 ml 600 ml Balance 1098.61 ml -264.19 ml -13.82 ml medications Current Medications Medications Dose Ordered Sig/Yousif Route Start Time Stop Time Status Last Admin Dose Admin Midazolam HCl 50 ml @ 1 mls/hr Q24H IV 05/25/24 06:30 05/29/24 09:11 5 MLS/HR Atorvastatin Calcium 40 mg HS NG 05/25/24 22:00 06/10/24 21:59 40 MG Ondansetron HCl 4 mg Q4HP PRN IV 05/25/24 10:45 Nitroglycerin 0.4 mg Q5MINP PRN SL 05/25/24 10:45 Albuterol 2.5 mg Q4HR NEB 05/25/24 14:00 06/11/24 10:26 2.5 MG Ipratropium [place] 0.5 mg Q4HR NEB 05/25/24 14:00 06/11/24 10:26 0.5 MG Fentanyl Citrate 250 ml @ 2.5 mls/hr Q24H IV 05/25/24 19:30 06/11/24 01:16 15 MLS/HR Ibuprofen 400 mg Q4HP PRN GT 05/26/24 01:15 05/26/24 01:42 400 MG Cefepime HCl 0.5 gm/Dextrose 50 ml @ 12.5 mls/hr Q24H IV 05/29/24 18:00 06/10/24 18:06 12.5 MLS/HR Enteral Nutritional Formula 1,000 ml 30ML/HR GT 05/29/24 09:45 06/10/24 18:05 1,000 ML Dexmedetomidine HCl 400 mcg/ Dextrose 100 ml @ 8.18 mls/hr [id number] IV 05/29/24 14:15 06/11/24 03:58 8.18 MLS/HR Hydralazine HCl 10 mg Q6HP PRN IV 05/29/24 16:30 06/07/24 04:41 10 MG Pantoprazole Sodium 40 mg DAILY IV 05/30/24 10:00 06/11/24 10:06 40 MG Bumetanide 2 mg BIDD IV 05/30/24 18:00 06/11/24 06:32 2 MG Calcium Acetate 1,334 mg Q8HR GT 06/02/24 14:00 06/11/24 05:49 1,334 MG Nicardipine HCl 250 ml @ 50 mls/hr Q5H IV 06/03/24 08:00 06/11/24 05:47 25 MLS/HR Carvedilol 25 mg Q12HR PO 06/03/24 22:00 06/11/24 10:07 25 MG Hydralazine HCl 50 mg Q12HR PO 06/09/24 10:00 06/10/24 21:59 50 MG Doxycycline Hyclate 100 ml @ 50 mls/hr Q12H IV 06/09/24 07:45 06/11/24 08:25 50 MLS/HR Micafungin Sodium 100 mg/Sodium Chloride 100 ml @ 100 mls/hr DAILY IV 06/09/24 10:00 06/11/24 10:47 100 MLS/HR Aspirin 81 mg DAILY PO 06/10/24 10:00 06/11/24 10:06 81 MG Acetylcysteine 100 mg Q8HR NEB 06/09/24 22:00 06/11/24 07:26 100 MG Examination: LUNGS:Normal, CVS:Normal, MSK:Abnormal laboratory and microbiology Laboratory Tests 06/11/24 03:17 Test 06/11/24 03:17 Range/Units Serum Glucose 98 74-106 mg/dL Microbiology Date/Time Source Procedure Growth Status 06/09/24 17:21 Urine - [place] Urine Culture - Preliminary Resulted 06/07/24 10:50 Blood Blood Culture - Preliminary NO GROWTH AFTER 72 HOURS OF INCUBATION. Resulted 05/27/24 08:50 Nose MRSA Screen - Final Complete 05/25/24 06:50 Sputum Gram Stain - Final Complete 05/25/24 06:50 Respiratory Culture - Final Presumptive Tara albicans Complete Problem List/Assessment/Plan Problem List/Assessment/Plan CHANG superimposed on CKD secondary to ATN needing HD Acute respiratory failure, intubated on ventilator Septic shock CHF, Ef 40% Morbid obesity Anemia of CKD REC: Continue with UF to 3 L as tolerated Epogen 59906 IV post hemodialysis IV pressors for BP support Albumin 25% p.r.n. hemodialysis IV Abx Will continue to follow Plan discussed with: Other (Nurse) Dietary Evaluation Review Comments: 1) If GI is accessible consider Jevity 1.2 @ 70ml/hr x 24hr continuous feed goal rate as tolerated 2) If pt remains NPO >7 days consider TPN to meet at least 75% of estimated needs 3) Advance pt diet when medically feasible to a 2gm Sodium diet modified per [employer] recommendations 4) Continue current plan of care Expected Outcomes/Goals: 1) Pt to receive nutrition support within 7 days of NPO status 2) Pt diet to advance 3) F/U in 2-3 days MARIELA JONES MD Jun 11, 2024 11:50
--- NOTE | 2024-06-11 13:04 | DVHPN2 ---
Consult Progress Note Subjective Other Systems: Patient remains chemically sedated and mechanically ventilated. Per bedside RN, patient having labile blood pressures. Objective vital signs Vital Sign Date Time Temp Pulse Resp B/P (MAP) Pulse Ox O2 Delivery O2 Flow Rate FiO2 06/11/24 12:45 98 254/119 06/11/24 12:00 98.2 26 95 208.8 06/11/24 11:49 30 06/11/24 05:54 Mechanical Ventilator+ Total Intake and Output 06/10/24 06/10/24 06/11/24 15:00 23:00 07:00 Intake Total 1098.61 ml 935.81 ml 586.18 ml Output Total 1200 ml 600 ml Balance 1098.61 ml -264.19 ml -13.82 ml medications Current Medications Medications Dose Ordered Sig/Yousif Route Start Time Stop Time Status Last Admin Dose Admin Midazolam HCl 50 ml @ 1 mls/hr Q24H IV 05/25/24 06:30 05/29/24 09:11 5 MLS/HR Atorvastatin Calcium 40 mg HS NG 05/25/24 22:00 06/10/24 21:59 40 MG Ondansetron HCl 4 mg Q4HP PRN IV 05/25/24 10:45 Nitroglycerin 0.4 mg Q5MINP PRN SL 05/25/24 10:45 Albuterol 2.5 mg Q4HR NEB 05/25/24 14:00 06/11/24 10:26 2.5 MG Ipratropium [place] 0.5 mg Q4HR NEB 05/25/24 14:00 06/11/24 10:26 0.5 MG Fentanyl Citrate 250 ml @ 2.5 mls/hr Q24H IV 05/25/24 19:30 06/11/24 01:16 15 MLS/HR Ibuprofen 400 mg Q4HP PRN GT 05/26/24 01:15 05/26/24 01:42 400 MG Cefepime HCl 0.5 gm/Dextrose 50 ml @ 12.5 mls/hr Q24H IV 05/29/24 18:00 06/10/24 18:06 12.5 MLS/HR Enteral Nutritional Formula 1,000 ml 30ML/HR GT 05/29/24 09:45 06/10/24 18:05 1,000 ML Dexmedetomidine HCl 400 mcg/ Dextrose 100 ml @ 8.18 mls/hr [id number] IV 05/29/24 14:15 06/11/24 03:58 8.18 MLS/HR Hydralazine HCl 10 mg Q6HP PRN IV 05/29/24 16:30 06/07/24 04:41 10 MG Pantoprazole Sodium 40 mg DAILY IV 05/30/24 10:00 06/11/24 10:06 40 MG Bumetanide 2 mg BIDD IV 05/30/24 18:00 06/11/24 06:32 2 MG Calcium Acetate 1,334 mg Q8HR GT 06/02/24 14:00 06/11/24 05:49 1,334 MG Nicardipine HCl 250 ml @ 50 mls/hr Q5H IV 06/03/24 08:00 06/11/24 12:45 50 MLS/HR Hydralazine HCl 50 mg Q12HR PO 06/09/24 10:00 06/10/24 21:59 50 MG Doxycycline Hyclate 100 ml @ 50 mls/hr Q12H IV 06/09/24 07:45 06/11/24 08:25 50 MLS/HR Micafungin Sodium 100 mg/Sodium Chloride 100 ml @ 100 mls/hr DAILY IV 06/09/24 10:00 06/11/24 10:47 100 MLS/HR Aspirin 81 mg DAILY PO 06/10/24 10:00 06/11/24 10:06 81 MG Acetylcysteine 100 mg Q8HR NEB 06/09/24 22:00 06/11/24 07:26 100 MG Examination: GENERAL:Abnormal, LUNGS:Abnormal (Mechanically ventilated, FIO2 30%, PEEP 8), CVS:Normal, NEURO:Abnormal (Chemically sedated) laboratory and microbiology Laboratory Tests 06/11/24 03:17 Test 06/11/24 03:17 Range/Units Serum Glucose 98 74-106 mg/dL Problem List/Assessment/Plan Problem List/Assessment/Plan Septic shock Acute on chronic HFrEF, NYHA class IV, newly diagnosed Acute hypoxic respiratory failure NSTEMI, questionable Type I Mitral valve regurgitation, mild degree Hypertensive urgency Subcortical parenchymal hemorrhage Acute kidney injury on HD Morbidly obese Plan/Recommendation (Dr. Benson) * Echocardiogram revealed EF 40% with severe concentric LVH * GDMT for CHF as renal function permits. Currently on Coreg * Lipid-lowering agent. Reinitiate single antiplatelet therapy * ASA therapy cleared by neurology team * Cardiac surveillance: Monitor and notify for any ECG changes * Antibiotics per primary care team * Nephrology/Neurology recommendations * DVT/VTE prophylaxis: SCDs We will further consider ischemic work-up once patient's neurological status is determined to be intact. Thank you for allowing us to care for this patient. Please call with any questions or concerns. Critical care time spent: 30 minutes. This medical document was created using an electronic medical record system with voice recognition software and computerized dictation system. Although this document has been carefully reviewed, there might still be some phonetic and typographical errors. Occasional wrong-word or ``sound-alike substitutions may have occurred due to the inherent limitations of voice recognition software. These areas are purely typographical due to imperfections of the software programs and do not reflect any compromise in the patient's medical care. Please read the chart carefully and recognize, using context, where these substitutions have occurred. Plan discussed with: Other (Bedside RN Ginette) Dietary Evaluation Review Comments: 1) If GI is accessible consider Jevity 1.2 @ 70ml/hr x 24hr continuous feed goal rate as tolerated 2) If pt remains NPO >7 days consider TPN to meet at least 75% of estimated needs 3) Advance pt diet when medically feasible to a 2gm Sodium diet modified per FAMILY PRESERVATION WORKER recommendations 4) Continue current plan of care Expected Outcomes/Goals: 1) Pt to receive nutrition support within 7 days of NPO status 2) Pt diet to advance 3) F/U in 2-3 days Date of Service: Jun 11, 2024 Billing Provider: CJ BENSON MD Common Visit Codes: [id number] CARE 30-74 MIN BOB TREVINO Jun 11, 2024 13:04
[2024-06-11] MEDS ORDERED: ALBUMIN 25% 50 ML IV ONE (18:00)
[2024-06-11] MEDS: ALBUMIN 25% 50 ML IV ONE (18:10)
--- NOTE | 2024-06-11 20:06 | DVHPN2 ---
Progress Note - Dictate Date Seen: Jun 11, 2024 Medical Necessity Reason Pt with a Central, PICC or Fol: Yes The following are medically ne: Central Line, Putnam Catheter Reason for putnam catheter: Strict I&O Subjective Ms. Pandya is a 53 years old right-handed female with a history of morbid obesity, hypertension, the patient was was brought to the [facility] on 05/25/24 with a chief company of altered mental status, respiratory distress. I have seen and examined the patient, I have talked to her nurse,. She is awake, responsive to verbal stimuli, but she does not follow or move extremities Fluctuating vitals readings Fentanyl 200 mcg/hour, Urine culture, 05/25/2024: Negative Blood culture, 05/25/2024: Streptococcus pneumoniae UDS, 05/25/2024: Negative Urinalysis, 05/25/2024: WBC: 1, urine leukocyte esterase: Negative ABG, 05/25/2024: Metabolic acidosis, hypoxia, 05/26/2024: Metabolic acidosis, hypoxia, 05/27/24: Metabolic acidosis, hypoxia WBC/HB/PLT/MCV, 06/02/2024: 22.4/9/342/89.4 06/09/2024: 19.6/9.4/235/91.6 BUN/CR, 05/26/2024: 62/7.01 06/02/2024: 123/6.59, 06/09/2024: 137/6.32 HGB A1c, 05/25/2024: 5.6 Lactic acid, 05/25/2024: 3.6, 4.6, 4.2, 05/26/2024: 3.6 Troponin one high sensitivity, 05/25/2024: 1060, 1354, 1262 TBI/AST/ALT/AP, 05/26/2024: 2/246/167/98, 06/07/2024: 0.9/139/464/93 TG/HDL/LDL/HDL, 05/25/2024: 192/98/40/8 Vitamin B12, 06/02/2024: 836 TSH, 05/25/2024: 0.57 Chest x-ray, 05/25/2024: 1. Distal tip of the endotracheal tube is approximately 5.5 cm above the level of the nik. 2. Poorly visualized enteric tube at its distal aspect. Appears to reach the gastroesophageal junction, although not visualized distal to this point. Correlate with clinical findings. 3. Bilateral airspace opacities and interstitial opacities, may be due to multifocal pneumonia or pulmonary edema in the appropriate clinical setting CT head, 05/25/2024: No gross acute intracranial process CT head, 06/02/24: 1. Interval development of 2 foci of subcortical parenchymal hemorrhage in the left frontal lobe. No mass effect or midline shift. 2. Moderate amount of fluid in the posterior nasopharynx likely related to intubation. Recommend suctioning to prevent aspiration. 3. Small bilateral mastoid effusions. We are in the process of reaching out to the nurse or physician in charge of the patient to convey the findings. CT head, 06/04/2024: Redemonstrated are 2 hyperdense foci in the subcortical left frontal lobe which may represent small foci of parenchymal hemorrhage. There is no significant surrounding edema or associated mass effect CT head, 06/06/2024: The 2 foci of left frontal subcortical hemorrhage are less conspicuous in the current exam partially resolved. No new foci of hemorrhage vital signs Vital Sign Date Time Temp Pulse Resp B/P (MAP) Pulse Ox O2 Delivery O2 Flow Rate FiO2 06/11/24 19:37 91/51 06/11/24 19:10 98.1 78 22 100 208.6 06/11/24 18:40 30 06/11/24 16:00 Mechanical Ventilator+ Total Intake and Output 06/10/24 06/10/24 06/11/24 15:00 23:00 07:00 Intake Total 1098.61 ml 935.81 ml 586.18 ml Output Total 1200 ml 600 ml Balance 1098.61 ml -264.19 ml -13.82 ml medications Current Medications Medications Dose Ordered Sig/Yousif Route Start Time Stop Time Status Last Admin Dose Admin Midazolam HCl 50 ml @ 1 mls/hr Q24H IV 05/25/24 06:30 05/29/24 09:11 5 MLS/HR Atorvastatin Calcium 40 mg HS NG 05/25/24 22:00 06/10/24 21:59 40 MG Ondansetron HCl 4 mg Q4HP PRN IV 05/25/24 10:45 Nitroglycerin 0.4 mg Q5MINP PRN SL 05/25/24 10:45 Albuterol 2.5 mg Q4HR NEB 05/25/24 14:00 06/11/24 18:39 2.5 MG Ipratropium [place] 0.5 mg Q4HR NEB 05/25/24 14:00 06/11/24 18:40 0.5 MG Fentanyl Citrate 250 ml @ 2.5 mls/hr Q24H IV 05/25/24 19:30 06/11/24 01:16 15 MLS/HR Ibuprofen 400 mg Q4HP PRN GT 05/26/24 01:15 05/26/24 01:42 400 MG Cefepime HCl 0.5 gm/Dextrose 50 ml @ 12.5 mls/hr Q24H IV 05/29/24 18:00 06/11/24 19:37 12.5 MLS/HR Enteral Nutritional Formula 1,000 ml 30ML/HR GT 05/29/24 09:45 06/10/24 18:05 1,000 ML Dexmedetomidine HCl 400 mcg/ Dextrose 100 ml @ 8.18 mls/hr [id number] IV 05/29/24 14:15 06/11/24 03:58 8.18 MLS/HR Hydralazine HCl 10 mg Q6HP PRN IV 05/29/24 16:30 06/07/24 04:41 10 MG Pantoprazole Sodium 40 mg DAILY IV 05/30/24 10:00 06/11/24 10:06 40 MG Bumetanide 2 mg BIDD IV 05/30/24 18:00 06/11/24 06:32 2 MG Calcium Acetate 1,334 mg Q8HR GT 06/02/24 14:00 06/11/24 15:48 1,334 MG Nicardipine HCl 250 ml @ 50 mls/hr Q5H IV 06/03/24 08:00 06/11/24 15:37 100 MLS/HR Hydralazine HCl 50 mg Q12HR PO 06/09/24 10:00 06/10/24 21:59 50 MG Doxycycline Hyclate 100 ml @ 50 mls/hr Q12H IV 06/09/24 07:45 06/11/24 08:25 50 MLS/HR Micafungin Sodium 100 mg/Sodium Chloride 100 ml @ 100 mls/hr DAILY IV 06/09/24 10:00 06/11/24 10:47 100 MLS/HR Aspirin 81 mg DAILY PO 06/10/24 10:00 06/11/24 10:06 81 MG Acetylcysteine 100 mg Q8HR NEB 06/09/24 22:00 06/11/24 14:05 100 MG objective The patient is well-nourished and well-developed with no distress. The patient is intubated MENTAL STATUS: Subjective CRANIAL NERVES: Pupils are equal, round and reactive.There are corneal reflexes and conjugated eye movement. No signs of facial weakness. There are gagging or coughing reflexes SENSATION: Okay to painful stimuli MOTOR: Normal tone in the upper and lower extremity. Normal muscle bulk. No fasciculations. No spontaneous movement. REFLEXES: Deep tendon reflexes are symmetrical. No pathological reflexes. CEREBELLAR/COORDINATION: Deferred GAIT/STATION: deferred. laboratory and microbiology Laboratory Tests 06/11/24 03:17 Test 06/11/24 03:17 Range/Units Serum Glucose 98 74-106 mg/dL Problem List Altered mental status/Coma Hypoxic encephalopathy secondary to respiratory failure Metabolic encephalopathy secondary to acidosis, sepsis, septic shock, kidney failure Heart attack Pneumonia Sepsis, septic shock Acute on chronic kidney failure Acute petechial hemorrhage in the left frontal lobe, improving on follow-up CT Assessment/Plan Monitoring Supportive treatment ICU care Follow-up labs EEG Stabilize vitals Respiratory support/vent management Oxygen IV antibiotics GI prophylaxis/Protonix DVT prophylaxis/heparin Nephrology on case Pulmonology on case More recommendation per clinical course This medical document was created using an electronic medical record system with [employer] computerized dictation system. Although this document has been carefully reviewed, there may still be some phonetic and typographical errors. These areas are purely typographical due to imperfections of the software programs, and do not reflect any compromise in the patient's medical care Prognosis guarded Dietary Evaluation Review Comments: 1) If GI is accessible consider Jevity 1.2 @ 70ml/hr x 24hr continuous feed goal rate as tolerated 2) If pt remains NPO >7 days consider TPN to meet at least 75% of estimated needs 3) Advance pt diet when medically feasible to a 2gm Sodium diet modified per TESTS SUPERINTENDENT recommendations 4) Continue current plan of care Expected Outcomes/Goals: 1) Pt to receive nutrition support within 7 days of NPO status 2) Pt diet to advance 3) F/U in 2-3 days Plan discussed with: Other PILAR HOOD MD Jun 11, 2024 20:06
[2024-06-11] MEDS: LIDOCAINE 2% (LOCAL ANESTH.) PF 5ml SDV ONE (21:20)
--- NOTE | 2024-06-11 21:40 | DVHNC2 ---
Procedure - Radial arterial line procedure note Indication: Hemodynamic monitoring, frequent blood ABG draws. Liquid Floor And Wall Applier: Dr. Guy Nunez PGY2 Date: 06/11/2024 Time: 2137 Time out: 0 am Consent: Consent was obtained from patient's healthcare proxy prior to procedure. Indications, risks, and benefits were explained at length. Patient medications and allergies reviewed. The risks and benefits of the procedure and the sedation options and risk were discussed with the patient's healthcare proxy. All questions were answered and informed consent was obtained. Patient identification and proposed procedure were verified prior to the procedure by the physician, and a nurse in the patient's room. The heart rate, respiratory rate, oxygen saturations, blood pressure, adequacy of pulmonary ventilation, and response to care were monitored throughout the procedure. The physical status of the patient was reassessed after the procedure. Procedure summary: A time-out was performed. My hands were washed immediately prior to the procedure. I wore surgical cap, mask with protective eyewear, sterile gown and sterile gloves throughout the procedure. After an Joni test was performed to ensure adequate perfusion, the RIGHT wrist was prepped using chlorhexidine scrub and draped in sterile fashion using sterile towels. The radial pulse was identified with the use of ultrasound. The wrist was positioned in the usual fashion. Anesthesia was achieved using 1% lidocaine. Using the radial arterial line kit, needle was inserted into the radial artery using ultrasound guidance. Arterial blood flow was seen to pulsate in the flash chamber. The internal guid ewire was advanced easily into the radial artery. The catheter was then advanced over the wire and the needle and wire were withdrawn. The catheter was sutured into place with 1 sutures. A sterile Biopatch and Tegaderm was placed over the catheter at the insertion site. The patient tolerated the procedure without any hemodynamic compromise. At the time of procedure completion, the catheter was connected to the cardiac technician and calibrated. Appropriate waveform and blood pressure tracing was observed. Estimated blood loss is less than 5 mL. CPT: 52336 Arterial line insertion CPT: 86935 US add-on MELODY ELIZABETH MD Jun 11, 2024 21:40
[2024-06-11] MEDS: LIDOCAINE 2%HCL (LOCAL ANESTH.) INJ 10ml MDV ID ONE (22:07)
--- NOTE | 2024-06-11 23:38 | DVHPN2 ---
Progress Note - Dictate Date Seen: Jun 11, 2024 Medical Necessity Reason Pt with a Central, PICC or Fol: Yes The following are medically ne: Central Line, Putnam Catheter Reason for putnam catheter: Strict I&O Subjective Patient seen and examined at bedside. intubated on mechanical ventilator. Overnight events reviewed. vital signs Vital Sign Date Time Temp Pulse Resp B/P (MAP) Pulse Ox O2 Delivery O2 Flow Rate FiO2 06/11/24 23:37 22 99 Mechanical Ventilator+ 30 30 06/11/24 22:45 98.6 79 112/53 (72) 209.5 Total Intake and Output 06/10/24 06/10/24 06/11/24 15:00 23:00 07:00 Intake Total 1098.61 ml 935.81 ml 586.18 ml Output Total 1200 ml 600 ml Balance 1098.61 ml -264.19 ml -13.82 ml medications Current Medications Medications Dose Ordered Sig/Yousif Route Start Time Stop Time Status Last Admin Dose Admin Midazolam HCl 50 ml @ 1 mls/hr Q24H IV 05/25/24 06:30 05/29/24 09:11 5 MLS/HR Atorvastatin Calcium 40 mg HS NG 05/25/24 22:00 06/11/24 22:30 40 MG Ondansetron HCl 4 mg Q4HP PRN IV 05/25/24 10:45 Nitroglycerin 0.4 mg Q5MINP PRN SL 05/25/24 10:45 Albuterol 2.5 mg Q4HR NEB 05/25/24 14:00 06/11/24 22:15 2.5 MG Ipratropium [place] 0.5 mg Q4HR NEB 05/25/24 14:00 06/11/24 22:16 0.5 MG Fentanyl Citrate 250 ml @ 2.5 mls/hr Q24H IV 05/25/24 19:30 06/11/24 01:16 15 MLS/HR Ibuprofen 400 mg Q4HP PRN GT 05/26/24 01:15 05/26/24 01:42 400 MG Cefepime HCl 0.5 gm/Dextrose 50 ml @ 12.5 mls/hr Q24H IV 05/29/24 18:00 06/11/24 19:37 12.5 MLS/HR Enteral Nutritional Formula 1,000 ml 30ML/HR GT 05/29/24 09:45 06/10/24 18:05 1,000 ML Dexmedetomidine HCl 400 mcg/ Dextrose 100 ml @ 8.18 mls/hr [id number] IV 05/29/24 14:15 06/11/24 03:58 8.18 MLS/HR Hydralazine HCl 10 mg Q6HP PRN IV 05/29/24 16:30 06/07/24 04:41 10 MG Pantoprazole Sodium 40 mg DAILY IV 05/30/24 10:00 06/11/24 10:06 40 MG Bumetanide 2 mg BIDD IV 05/30/24 18:00 06/11/24 06:32 2 MG Calcium Acetate 1,334 mg Q8HR GT 06/02/24 14:00 06/11/24 22:30 1,334 MG Nicardipine HCl 250 ml @ 50 mls/hr Q5H IV 06/03/24 08:00 06/11/24 15:37 100 MLS/HR Hydralazine HCl 50 mg Q12HR PO 06/09/24 10:00 06/11/24 22:29 50 MG Micafungin Sodium 100 mg/Sodium Chloride 100 ml @ 100 mls/hr DAILY IV 06/09/24 10:00 06/11/24 10:47 100 MLS/HR Aspirin 81 mg DAILY PO 06/10/24 10:00 06/11/24 10:06 81 MG Acetylcysteine 100 mg Q8HR NEB 06/09/24 22:00 06/11/24 22:16 100 MG Doxycycline Hyclate 100 ml @ 50 mls/hr Q12H IV 06/12/24 00:00 objective Gen.: Patient lying in bed in medical ICU. Intubated on mechanical ventilator. Head: Normocephalic, atraumatic. Eyes: PERRLA. Ears: Normal external anatomy. Throat: Endotracheal tube and orogastric tube in place. Neck: Supple, trachea midline. Chest: Transmitted breath sounds bilaterally. Decreased air entry bilaterally. No wheezing. Bibasilar crackles. Cardiovascular: Positive S1, positive S2. Regular rate and rhythm. Abdomen: Positive bowel sounds in all 4 quadrants. Soft, nontender, nondistended. : Putnam in place. Normal external genitalia. Rectal: Deferred. Skin: Warm, dry. Intact. Extremities: 2+ radial pulses bilaterally. No lower extremity edema. Neuro: Off sedation laboratory and microbiology Laboratory Tests 06/11/24 03:17 Test 06/11/24 03:17 Range/Units Serum Glucose 98 74-106 mg/dL Assessment/Plan Impression: Acute hypoxic respiratory failure On mechanical ventilator Septic shock Elevated troponin Acute kidney injury Lactic acidosis Metabolic acidosis Multifocal pneumonia, likely gram negative Pulmonary edema AE COPD Events: On vent support On AC mode; RR 22, VT 600, PEEP 8, FiO2 30% Patient did not tolerate CPAP. Hemodialysis this PM. Blood pressure is labile. Pt is off nicardipine drip. Fentanyl for analgesia ABG reviewed, notable for alkalemia CXR demonstrates bilateral opacities, left greater than right, increased since prior study. Devices in place. Continue antibiotics Continue antifungal Tube feeds for nutritional support Wound care Monitor hemoglobin Monitor renal function Hemodialysis per Nephrology Nephrology recs appreciated. Echo showed EF of 40%. Neurology recommendations appreciated. SBT/KAREN Patient opens eyes, not following commands. Awaiting for mentation to improve. Poor prognosis Consider trach/PEG for liberation from vent if family wishes for aggressive care. CT head on 06/06/24 revealed the two foci of left frontal subcortical hemorrhage are less conspicuous - partially resolved. No new foci of hemorrhage. Neurology recs appreciated. Labs and imaging reviewed. Rest of plan as noted below. Plan: s/p intubation on mechanical ventilator. On AC mode; RR 22, VT 600, PEEP 8, FiO2 30% Titrate FIO2 to keep O2 saturation above 90%. VAP bundle. Daily ABG and CXR while intubated Off sedation Off pressors, hemodynamically stable. Continue bronchodilators. Continue antibiotics. F/u cultures. Pressors if necessary to maintain a mean arterial blood pressure greater than 65 mmHg. Cardiology recs appreciated. Monitor renal function Monitor electrolytes. Supplement as necessary. Monitor ins and outs. Nephrology recs appreciated. IV fluid hydration GI prophylaxis. DVT prophylaxis. Prognosis: Poor given patient's multiple co-morbidities. Condition: Critical Rest of plan per hospitalist and other consultants. A total of 35 minutes of critical care time was spent reviewing the patient record, examining the patient, making a diagnostic and therapeutic plan, discussing this plan with the medical personnel, following up on diagnostic studies and following the patient for clinical stability excluding any and all procedures. At least 50% of this time was spent in direct, [id number] contact. Thank you, SHIP RIGGER APPRENTICE [employer], for allowing me to participate in this patient's care. Further recommendations will depend on the patient's clinical course. Please do not hesitate to contact me if you have any questions or concerns. This medical document was created using an electronic medical record system with [employer] dictation system. Although these documentations are being carefully reviewed, there may still be some phonetic and typographical changes. The errors are purely typographical, due to imperfection on the software program, and do not reflect any compromise in the patient's medical care. Dietary Evaluation Review Comments: 1) If GI is accessible consider Jevity 1.2 @ 70ml/hr x 24hr continuous feed goal rate as tolerated 2) If pt remains NPO >7 days consider TPN to meet at least 75% of estimated needs 3) Advance pt diet when medically feasible to a 2gm Sodium diet modified per FISH STRINGER ASSEMBLER recommendations 4) Continue current plan of care Expected Outcomes/Goals: 1) Pt to receive nutrition support within 7 days of NPO status 2) Pt diet to advance 3) F/U in 2-3 days Plan discussed with: Other (LUZMARIA Peng) Critical Care Time(min): 35 MELODY ELIZABETH MD Jun 11, 2024 23:38
[2024-06-11] MEDS: DOXYCYCLINE 100MG/100ML 100 ML IV SCH (23:47)
[2024-06-12] VITALS (111 sets, daily range): BP systolic 74–211; BP diastolic 37–106; PULSE 59–98; RESP 17–35; TEMP 97.5–98.6; O2SAT 97–100
[2024-06-12 04:00] LABS: Basophils # (auto) 0 10 ^3/uL (0-0.2); Basophils % (auto) 0.4 % (0.0-2.0); Eosinophils # (auto) 0.2 10 ^3/uL (0-0.8); Hematocrit 27.9 % (36.0-46.0); Hemoglobin 9.2 g/dL (12.2-16.2); Lymphocytes # (auto) 0.8 10 ^3/uL (0.4-5.4); Lymphocytes % (auto) 9.8 % (10.0-50.0); Mean Corpuscular Hgb Conc. 33.1 g/dL (32.0-36.0); Mean Corpuscular Volume 90.6 fL (80.0-100.0); Monocytes # (auto) 0.9 10 ^3/uL (0-1.3); Monocytes % (auto) 10.8 % (0.0-12.0); Neutrophils # (auto) 6.3 10 ^3/uL (1.6-8.6); Platelet Count (auto) 205 10^3/uL (140-450); Red Blood Cells 3.08 10^6/uL (4.0-5.20); Red Cell Distribution Width 15.8 % (11.8-14.3); White Blood Cell 8.2 10^3/uL (4.4-10.8)
[2024-06-12 04:17] LABS: Chloride 99 mmol/L (98-107)
[2024-06-12 04:18] LABS: Anion Gap 13 (5-15); Calcium 9.5 mg/dL (8.7-10.4); Carbon Dioxide 24 mmol/L (20-31)
[2024-06-12 04:21] LABS: Potassium 3.4 mmol/L (3.5-5.1); Sodium 136 mmol/L (136-145)
[2024-06-12 04:23] LABS: BUN/Creatinine Ratio 16.4 (10.0-20.0); Blood Urea Nitrogen 71 mg/dL (9-23); Glucose 114 mg/dL (74-106)
[2024-06-12 06:06] LABS: Vitamin B1, Whole Blood 118.2 nmol/L (66.5-200.0)
--- NOTE | 2024-06-12 06:20 | DVH ---
CHEST RADIOGRAPH Indication: ON VENTILATOR Technique: Single frontal view of the chest was obtained Comparison: XY CHEST PORTABLE on DOS: 06/11/24, XY CHEST PORTABLE on DOS: 06/10/24, XY CHEST PORTABLE o n DOS: 06/09/24 IMPRESSION: Examination is limited by patient position. The cardiac silhouette is markedly enlarged. There is m oderate pulmonary vascular congestion. Support lines and tubes appear unchanged in position. No signi ficant interval change.
--- NOTE | 2024-06-12 11:01 | DVHPN2 ---
Progress Note Date Seen: Jun 12, 2024 Medical Necessity Reason Pt with a Central, PICC or Fol: Yes The following are medically ne: Central Line, Putnam Catheter Reason for putnam catheter: Strict I&O Subjective Review of Systems: RESPIRATORY:Abnormal Other Systems: Patient seen and examined by myself today in follow-up Patient remained intubated on ventilator Objective vital signs Vital Sign Date Time Temp Pulse Resp B/P (MAP) Pulse Ox O2 Delivery O2 Flow Rate FiO2 06/12/24 10:10 69 22 147/67 (93) 99 30 06/12/24 07:00 98.4 209.1 06/12/24 05:41 Mechanical Ventilator+ Total Intake and Output 06/11/24 06/11/24 06/12/24 15:00 23:00 07:00 Intake Total 980.84 ml 791.5 ml 1241.11 ml Output Total 1300 ml 650 ml Balance 980.84 ml -508.5 ml 591.11 ml medications Current Medications Medications Dose Ordered Sig/Yousif Route Start Time Stop Time Status Last Admin Dose Admin Midazolam HCl 50 ml @ 1 mls/hr Q24H IV 05/25/24 06:30 05/29/24 09:11 5 MLS/HR Atorvastatin Calcium 40 mg HS NG 05/25/24 22:00 06/11/24 22:30 40 MG Ondansetron HCl 4 mg Q4HP PRN IV 05/25/24 10:45 Nitroglycerin 0.4 mg Q5MINP PRN SL 05/25/24 10:45 Albuterol 2.5 mg Q4HR NEB 05/25/24 14:00 06/12/24 10:09 2.5 MG Ipratropium [place] 0.5 mg Q4HR NEB 05/25/24 14:00 06/12/24 10:09 0.5 MG Fentanyl Citrate 250 ml @ 2.5 mls/hr Q24H IV 05/25/24 19:30 06/12/24 10:27 15 MLS/HR Ibuprofen 400 mg Q4HP PRN GT 05/26/24 01:15 05/26/24 01:42 400 MG Cefepime HCl 0.5 gm/Dextrose 50 ml @ 12.5 mls/hr Q24H IV 05/29/24 18:00 06/11/24 19:37 12.5 MLS/HR Enteral Nutritional Formula 1,000 ml 30ML/HR GT 05/29/24 09:45 06/10/24 18:05 1,000 ML Dexmedetomidine HCl 400 mcg/ Dextrose 100 ml @ 8.18 mls/hr [id number] IV 05/29/24 14:15 06/12/24 10:27 16.36 MLS/HR Hydralazine HCl 10 mg Q6HP PRN IV 05/29/24 16:30 06/12/24 01:29 10 MG Pantoprazole Sodium 40 mg DAILY IV 05/30/24 10:00 06/12/24 09:48 40 MG Bumetanide 2 mg BIDD IV 05/30/24 18:00 06/12/24 05:37 2 MG Calcium Acetate 1,334 mg Q8HR GT 06/02/24 14:00 06/12/24 05:37 1,334 MG Nicardipine HCl 250 ml @ 50 mls/hr Q5H IV 06/03/24 08:00 06/12/24 10:05 75 MLS/HR Hydralazine HCl 50 mg Q12HR PO 06/09/24 10:00 06/12/24 09:48 50 MG Micafungin Sodium 100 mg/Sodium Chloride 100 ml @ 100 mls/hr DAILY IV 06/09/24 10:00 06/12/24 09:47 100 MLS/HR Aspirin 81 mg DAILY PO 06/10/24 10:00 06/12/24 09:47 81 MG Acetylcysteine 100 mg Q8HR NEB 06/09/24 22:00 06/12/24 06:52 100 MG Doxycycline Hyclate 100 ml @ 50 mls/hr Q12H IV 06/12/24 00:00 06/11/24 23:47 50 MLS/HR Examination: LUNGS:Normal, CVS:Normal, MSK:Normal laboratory and microbiology Laboratory Tests 06/12/24 03:11 Test 06/12/24 03:11 Range/Units Serum Glucose 114 H 74-106 mg/dL Microbiology Date/Time Source Procedure Growth Status 06/09/24 17:21 Urine - [place] Urine Culture - Preliminary Resulted 06/07/24 10:50 Blood Blood Culture - Preliminary NO GROWTH AFTER 72 HOURS OF INCUBATION. Resulted 05/27/24 08:50 Nose MRSA Screen - Final Complete 05/25/24 06:50 Sputum Gram Stain - Final Complete 05/25/24 06:50 Respiratory Culture - Final Presumptive Tara albicans Complete Problem List/Assessment/Plan Problem List/Assessment/Plan CHANG superimposed on CKD secondary to ATN needing HD Acute respiratory failure, intubated on ventilator Septic shock CHF, Ef 40% Morbid obesity Anemia of CKD Hypokalemia REC: Next hemodialysis 06/14 Epogen 11848 IV post hemodialysis IV pressors for BP support Albumin 25% p.r.n. hemodialysis IV Abx KCL replacement Will continue to follow Plan discussed with: Other (Nurse) Dietary Evaluation Review Comments: 1) If GI is accessible consider Jevity 1.2 @ 70ml/hr x 24hr continuous feed goal rate as tolerated 2) If pt remains NPO >7 days consider TPN to meet at least 75% of estimated needs 3) Advance pt diet when medically feasible to a 2gm Sodium diet modified per TOTER recommendations 4) Continue current plan of care Expected Outcomes/Goals: 1) Pt to receive nutrition support within 7 days of NPO status 2) Pt diet to advance 3) F/U in 2-3 days MARIELA JONES MD Jun 12, 2024 11:01
--- NOTE | 2024-06-12 12:32 | DVHPN2 ---
Consult Progress Note Subjective Other Systems: Patient in normal sinus rhythm at time of assessment. Patient remains chemically sedated and mechanically ventilated. Arterial line in place for hemodynamic monitoring. Objective vital signs Vital Sign Date Time Temp Pulse Resp B/P (MAP) Pulse Ox O2 Delivery O2 Flow Rate FiO2 06/12/24 11:46 65 22 110/50 (70) 98 30 06/12/24 07:00 98.4 209.1 06/12/24 05:41 Mechanical Ventilator+ Total Intake and Output 06/11/24 06/11/24 06/12/24 15:00 23:00 07:00 Intake Total 980.84 ml 791.5 ml 1241.11 ml Output Total 1300 ml 650 ml Balance 980.84 ml -508.5 ml 591.11 ml medications Current Medications Medications Dose Ordered Sig/Yousif Route Start Time Stop Time Status Last Admin Dose Admin Midazolam HCl 50 ml @ 1 mls/hr Q24H IV 05/25/24 06:30 05/29/24 09:11 5 MLS/HR Atorvastatin Calcium 40 mg HS NG 05/25/24 22:00 06/11/24 22:30 40 MG Ondansetron HCl 4 mg Q4HP PRN IV 05/25/24 10:45 Nitroglycerin 0.4 mg Q5MINP PRN SL 05/25/24 10:45 Albuterol 2.5 mg Q4HR NEB 05/25/24 14:00 06/12/24 10:09 2.5 MG Ipratropium [place] 0.5 mg Q4HR NEB 05/25/24 14:00 06/12/24 10:09 0.5 MG Fentanyl Citrate 250 ml @ 2.5 mls/hr Q24H IV 05/25/24 19:30 06/12/24 10:27 15 MLS/HR Ibuprofen 400 mg Q4HP PRN GT 05/26/24 01:15 05/26/24 01:42 400 MG Cefepime HCl 0.5 gm/Dextrose 50 ml @ 12.5 mls/hr Q24H IV 05/29/24 18:00 06/11/24 19:37 12.5 MLS/HR Enteral Nutritional Formula 1,000 ml 30ML/HR GT 05/29/24 09:45 06/10/24 18:05 1,000 ML Dexmedetomidine HCl 400 mcg/ Dextrose 100 ml @ 8.18 mls/hr [id number] IV 05/29/24 14:15 06/12/24 10:27 16.36 MLS/HR Hydralazine HCl 10 mg Q6HP PRN IV 05/29/24 16:30 06/12/24 01:29 10 MG Pantoprazole Sodium 40 mg DAILY IV 05/30/24 10:00 06/12/24 09:48 40 MG Bumetanide 2 mg BIDD IV 05/30/24 18:00 06/12/24 05:37 2 MG Calcium Acetate 1,334 mg Q8HR GT 06/02/24 14:00 06/12/24 05:37 1,334 MG Nicardipine HCl 250 ml @ 50 mls/hr Q5H IV 06/03/24 08:00 06/12/24 10:05 75 MLS/HR Hydralazine HCl 50 mg Q12HR PO 06/09/24 10:00 06/12/24 09:48 50 MG Micafungin Sodium 100 mg/Sodium Chloride 100 ml @ 100 mls/hr DAILY IV 06/09/24 10:00 06/12/24 09:47 100 MLS/HR Aspirin 81 mg DAILY PO 06/10/24 10:00 06/12/24 09:47 81 MG Acetylcysteine 100 mg Q8HR NEB 06/09/24 22:00 06/12/24 06:52 100 MG Doxycycline Hyclate 100 ml @ 50 mls/hr Q12H IV 06/12/24 00:00 06/11/24 23:47 50 MLS/HR Examination: GENERAL:Abnormal, LUNGS:Abnormal (Mechanically ventilated, FiO2 30%, PEEP 8.0), CVS:Normal, NEURO:Abnormal (Chemically sedated on Precedex and fentanyl) laboratory and microbiology Laboratory Tests 06/12/24 03:11 Test 06/12/24 03:11 Range/Units Serum Glucose 114 H 74-106 mg/dL Problem List/Assessment/Plan Problem List/Assessment/Plan Septic shock Acute on chronic HFrEF, NYHA class IV, newly diagnosed Acute hypoxic respiratory failure NSTEMI, questionable Type I Mitral valve regurgitation, mild degree Hypertensive urgency Subcortical parenchymal hemorrhage Acute kidney injury on HD Morbidly obese Plan/Recommendation (Dr. Benson) * Echocardiogram revealed EF 40% with severe concentric LVH * GDMT for CHF as renal function permits. Currently on Coreg * Lipid-lowering agent. Reinitiate single antiplatelet therapy * ASA therapy cleared by neurology team * Cardiac surveillance: Monitor and notify for any ECG changes * Antibiotics per primary care team * Nephrology/Neurology recommendations * DVT/VTE prophylaxis: SCDs We will further consider ischemic work-up once patient's neurological status is determined to be intact. Thank you for allowing us to care for this patient. Please call with any questions or concerns. Critical care time spent: 30 minutes. This medical document was created using an electronic medical record system with voice recognition software and computerized dictation system. Although this document has been carefully reviewed, there might still be some phonetic and typographical errors. Occasional wrong-word or ``sound-alike substitutions may have occurred due to the inherent limitations of voice recognition software. These areas are purely typographical due to imperfections of the software programs and do not reflect any compromise in the patient's medical care. Please read the chart carefully and recognize, using context, where these substitutions have occurred. Plan discussed with: Other (Bedside RN) Dietary Evaluation Review Comments: 1) If GI is accessible consider Jevity 1.2 @ 70ml/hr x 24hr continuous feed goal rate as tolerated 2) If pt remains NPO >7 days consider TPN to meet at least 75% of estimated needs 3) Advance pt diet when medically feasible to a 2gm Sodium diet modified per [employer]OVEMENT [employer]INEER recommendations 4) Continue current plan of care Expected Outcomes/Goals: 1) Pt to receive nutrition support within 7 days of NPO status 2) Pt diet to advance 3) F/U in 2-3 days Date of Service: Jun 12, 2024 Billing Provider: CJ BENSON MD Common Visit Codes: [id number] CARE 30-74 MIN BOB TREVINO Jun 12, 2024 12:31
--- NOTE | 2024-06-12 13:42 | DVHPN2 ---
Subjective Intubated and sedated Reviewed: Care Plan, H&P, Labs, Medications, Previous Orders, Radiology, Other (Consultations) Changes from previous H/P or p: No Changes Objective Vitals Vital Signs Date Time Temp Pulse Resp B/P (MAP) Pulse Ox O2 Delivery O2 Flow Rate FiO2 06/12/24 13:11 69 137/60 06/12/24 11:46 22 98 30 06/12/24 08:00 Mechanical Ventilator+ 06/12/24 07:00 98.4 209.1 Intake/Output Intake and Output 06/12/24 07:00 Intake Total 3013.45 ml Output Total 1950 ml Balance 1063.45 ml Intake Oral 90 ml IV Total 2649.45 ml Tube Feeding 274 ml Output Urine Total 1950 ml General Appearance: Other (Intubated and sedated; morbidly obese) HEENT: Atraumatic, Other (Tongue swelling) Lungs: Other (Mechanical ventilation sounds) Cardiovascular: Normal S1, Normal S2, Other (Irregular rhythm) Abdomen: Normal bowel sounds, Soft Genitourinary: Other (Potter's catheter) Neuro: Other (Sedated) Psych/Mental Status: Other (Sedated) Medications Current Medications Medications Dose Ordered Sig/Yousif Route Start Time Stop Time Status Last Admin Dose Admin Midazolam HCl 50 ml @ 1 mls/hr Q24H IV 05/25/24 06:30 05/29/24 09:11 5 MLS/HR Atorvastatin Calcium 40 mg HS NG 05/25/24 22:00 06/11/24 22:30 40 MG Ondansetron HCl 4 mg Q4HP PRN IV 05/25/24 10:45 Nitroglycerin 0.4 mg Q5MINP PRN SL 05/25/24 10:45 Albuterol 2.5 mg Q4HR NEB 05/25/24 14:00 06/12/24 10:09 2.5 MG Ipratropium [place] 0.5 mg Q4HR NEB 05/25/24 14:00 06/12/24 10:09 0.5 MG Fentanyl Citrate 250 ml @ 2.5 mls/hr Q24H IV 05/25/24 19:30 06/12/24 10:27 15 MLS/HR Ibuprofen 400 mg Q4HP PRN GT 05/26/24 01:15 05/26/24 01:42 400 MG Cefepime HCl 0.5 gm/Dextrose 50 ml @ 12.5 mls/hr Q24H IV 05/29/24 18:00 06/11/24 19:37 12.5 MLS/HR Enteral Nutritional Formula 1,000 ml 30ML/HR GT 05/29/24 09:45 06/10/24 18:05 1,000 ML Dexmedetomidine HCl 400 mcg/ Dextrose 100 ml @ 8.18 mls/hr [id number] IV 05/29/24 14:15 06/12/24 10:27 16.36 MLS/HR Hydralazine HCl 10 mg Q6HP PRN IV 05/29/24 16:30 06/12/24 01:29 10 MG Pantoprazole Sodium 40 mg DAILY IV 05/30/24 10:00 06/12/24 09:48 40 MG Bumetanide 2 mg BIDD IV 05/30/24 18:00 06/12/24 05:37 2 MG Calcium Acetate 1,334 mg Q8HR GT 06/02/24 14:00 06/12/24 13:11 1,334 MG Hydralazine HCl 50 mg Q12HR PO 06/09/24 10:00 06/12/24 09:48 50 MG Micafungin Sodium 100 mg/Sodium Chloride 100 ml @ 100 mls/hr DAILY IV 06/09/24 10:00 06/12/24 09:47 100 MLS/HR Aspirin 81 mg DAILY PO 06/10/24 10:00 06/12/24 09:47 81 MG Acetylcysteine 100 mg Q8HR NEB 06/09/24 22:00 06/12/24 06:52 100 MG Doxycycline Hyclate 100 ml @ 50 mls/hr Q12H IV 06/12/24 00:00 06/12/24 13:10 50 MLS/HR Nicardipine HCl 50 mg/Sodium Chloride 250 ml @ 25 mls/hr Q10H IV 06/12/24 13:45 UNV Laboratory Results Laboratory Tests 06/12/24 03:11 Chemistry Test 06/12/24 03:11 Calcium Level 9.5 mg/dL (8.7-10.4) Urinalysis Test 05/25/24 08:30 05/28/24 01:30 Urine Color Yellow (Yellow) Urine Clarity Clear (Clear) Urine pH 7.5 (5.0-9.0) Urine Specific [place] 1.013 (1.001-1.035) Urine Protein 2+ (Negative) H Urine Ketones Negative (Negative) Urine Blood Negative /uL (Negative) Urine Nitrite Negative (Negative) Urine Bilirubin Negative (Negative) Urine Urobilinogen 8 mg/dL (Negative) H Urine Leukocyte Esterase Negative /uL (Negative) Urine RBC 5 /hpf (0 - 4) Urine WBC 1 /hpf (0 - 5) Urine Squamous Epithelial Cells Few /hpf (<5) Urine Bacteria None seen /hpf (None Seen) Urine Glucose Normal mg/dL (Normal) Urine Creatinine 248.25 mg/dL (30.0-125.0) H Urine Sodium 27 mmol/L (40-220) L Urine Total Protein 293.2 mg/dL (1-14) H Microbiology Microbiology Date/Time Source Procedure Growth Status 06/09/24 17:21 Urine - [place] Urine Culture - Final Complete 06/07/24 10:50 Blood Blood Culture - Final NO GROWTH AFTER 5 DAYS OF INCUBATION. Complete 05/27/24 08:50 Nose MRSA Screen - Final Complete 05/25/24 06:50 Sputum Gram Stain - Final Complete 05/25/24 06:50 Respiratory Culture - Final Presumptive Tara albicans Complete Labs and/or images reviewed: Labs reviewed by me, Image(s) reviewed by me Assessment/Plan Assessment/Plan Covering Kaleb Mejia NP: #Acute metabolic/toxic encephalopathy in the setting of subcortical parenchymal hemorrhage; currently sedated; neurology is following; reviewed available imaging studies; continue close monitoring #Subcortical parenchymal hemorrhage; continue IV nicardipine to control blood pressure as per Neurology recommendations; continue close monitoring #Acute hypoxic respiratory failure due to pneumonia; continue oxygen therapy via mechanical ventilation as per pulmonology; reviewed ABGs and chest x-ray; continue close monitoring #Septic shock with leukocytosis and lactic acidosis; due to Streptococcus pneumoniae bacteremia and pneumonia; was on IV pressors; continue broad-spectrum IV antibiotics; reviewed the available cultures; continue close monitoring #Acute on chronic systolic heart failure; telemetry; cardiology is following; continue close monitoring #NSTEMI,; unclear if it is type 1 or type 2; telemetry; cardiology is following; continue close monitoring #CHANG superimposed on CKD secondary to ATN; can not rule out vasomotor nephropathy ; anuric; continue hemodialysis as per Nephrology; continue close monitoring #Electrolytes imbalance; colic/replace electrolytes as indicated; nephrology is following; continue close monitoring #Suspected angioedema; continue current medical management; intubated; continue close monitoring #Hypertensive emergency; telemetry; continue IV nicardipine; cardiology is following; continue close monitoring #Hypoalbuminemia; continue tube feeding; continue close monitoring #Morbid obesity; to adjust when the patient is awake; continue close monitoring #Normocytic anemia; most likely inflammatory; continue close monitoring 120 minutes of critical care time. Late Entry. This medical document was created using an electronic medical record system with computerized dictation system. Although this document has been carefully reviewed, there might still be some phonetic and typographical errors. These areas are purely typographical due to imperfections of the software programs, and do not reflect any compromise in the patient's medical care. Plan discussed with: Other (Nurse) Date of Service: Jun 12, 2024 Billing Provider: LEEANNA BRICE MD Common Visit Codes: [id number] CARE 30-74 MIN (120 minutes), [id number] CARE-EACH +30MIN LEEANNA BRICE MD Jun 12, 2024 13:42
[2024-06-12] MEDS: niCARdipine 50 MG in SODIUM CHL 0.9% 230 ML IV SCH (13:45)
[2024-06-12] MEDS: CARVEDILOL 12.5 MG TAB PO ONE (14:15)
[2024-06-12] MEDS: CARVEDILOL 12.5 MG TAB PO SCH (21:26)
--- NOTE | 2024-06-12 23:17 | DVHPN2 ---
Progress Note - Dictate Date Seen: Jun 12, 2024 Medical Necessity Reason Pt with a Central, PICC or Fol: Yes The following are medically ne: Central Line, Putnam Catheter Reason for putnam catheter: Strict I&O Subjective Ms. Pandya is a 53 years old right-handed female with a history of morbid obesity, hypertension, the patient was was brought to the [facility]– [place] on [place]/25/24 with a chief company of altered mental status, respiratory distress. I have seen and examined the patient, I have talked to her nurse,. She is awake, responsive to verbal stimuli, she was able to follow some verbal commands, she can weaker bilateral toes slightly Fentanyl 200 mcg/hour, Urine culture, 05/25/2024: Negative Blood culture, 05/25/2024: Streptococcus pneumoniae UDS, 05/25/2024: Negative Urinalysis, 05/25/2024: WBC: 1, urine leukocyte esterase: Negative ABG, 05/25/2024: Metabolic acidosis, hypoxia, 05/26/2024: Metabolic acidosis, hypoxia, 05/27/24: Metabolic acidosis, hypoxia WBC/HB/PLT/MCV, 06/02/2024: 22.4/9/342/89.4 06/09/2024: 19.6/9.4/235/91.6, 06/12/2024: 8.2/9.2/205/90.6 BUN/CR, 05/26/2024: 62/7.01 06/02/2024: 123/6.59, 06/09/2024: 137/6.32, 06/12/2024: 71/4.33 HGB A1c, 05/25/2024: 5.6 Lactic acid, 05/25/2024: 3.6, 4.6, 4.2, 05/26/2024: 3.6 Troponin one high sensitivity, 05/25/2024: 1060, 1354, 1262 TBI/AST/ALT/AP, 05/26/2024: 2/246/167/98, 06/07/2024: 0.9/139/464/93 TG/HDL/LDL/HDL, 05/25/2024: 192/98/40/8 Vitamin B12, 06/02/2024: 836 TSH, 05/25/2024: 0.57 Chest x-ray, 05/25/2024: 1. Distal tip of the endotracheal tube is approximately 5.5 cm above the level of the nik. 2. Poorly visualized enteric tube at its distal aspect. Appears to reach the gastroesophageal junction, although not visualized distal to this point. Correlate with clinical findings. 3. Bilateral airspace opacities and interstitial opacities, may be due to multifocal pneumonia or pulmonary edema in the appropriate clinical setting CT head, 05/25/2024: No gross acute intracranial process CT head, 06/02/24: 1. Interval development of 2 foci of subcortical parenchymal hemorrhage in the left frontal lobe. No mass effect or midline shift. 2. Moderate amount of fluid in the posterior nasopharynx likely related to intubation. Recommend suctioning to prevent aspiration. 3. Small bilateral mastoid effusions. We are in the process of reaching out to the nurse or physician in charge of the patient to convey the findings. CT head, 06/04/2024: Redemonstrated are 2 hyperdense foci in the subcortical left frontal lobe which may represent small foci of parenchymal hemorrhage. There is no significant surrounding edema or associated mass effect CT head, 06/06/2024: The 2 foci of left frontal subcortical hemorrhage are less conspicuous in the current exam partially resolved. No new foci of hemorrhage vital signs Vital Sign Date Time Temp Pulse Resp B/P (MAP) Pulse Ox O2 Delivery O2 Flow Rate FiO2 06/12/24 22:30 155/64 06/12/24 22:26 76 06/12/24 21:57 22 97 30 06/12/24 20:00 97.5 207.5 06/12/24 08:00 Mechanical Ventilator+ Total Intake and Output 06/11/24 06/11/24 06/12/24 15:00 23:00 07:00 Intake Total 980.84 ml 791.5 ml 1241.11 ml Output Total 1300 ml 650 ml Balance 980.84 ml -508.5 ml 591.11 ml medications Current Medications Medications Dose Ordered Sig/Yousif Route Start Time Stop Time Status Last Admin Dose Admin Midazolam HCl 50 ml @ 1 mls/hr Q24H IV 05/25/24 06:30 05/29/24 09:11 5 MLS/HR Atorvastatin Calcium 40 mg HS NG 05/25/24 22:00 06/12/24 21:27 40 MG Ondansetron HCl 4 mg Q4HP PRN IV 05/25/24 10:45 Nitroglycerin 0.4 mg Q5MINP PRN SL 05/25/24 10:45 Albuterol 2.5 mg Q4HR NEB 05/25/24 14:00 06/12/24 21:56 2.5 MG Ipratropium [place] 0.5 mg Q4HR NEB 05/25/24 14:00 06/12/24 21:56 0.5 MG Fentanyl Citrate 250 ml @ 2.5 mls/hr Q24H IV 05/25/24 19:30 06/12/24 22:30 20 MLS/HR Ibuprofen 400 mg Q4HP PRN GT 05/26/24 01:15 05/26/24 01:42 400 MG Cefepime HCl 0.5 gm/Dextrose 50 ml @ 12.5 mls/hr Q24H IV 05/29/24 18:00 06/11/24 19:37 12.5 MLS/HR Enteral Nutritional Formula 1,000 ml 30ML/HR GT 05/29/24 09:45 06/10/24 18:05 1,000 ML Dexmedetomidine HCl 400 mcg/ Dextrose 100 ml @ 8.18 mls/hr [id number] IV 05/29/24 14:15 06/12/24 10:27 16.36 MLS/HR Hydralazine HCl 10 mg Q6HP PRN IV 05/29/24 16:30 06/12/24 19:48 10 MG Pantoprazole Sodium 40 mg DAILY IV 05/30/24 10:00 06/12/24 09:48 40 MG Bumetanide 2 mg BIDD IV 05/30/24 18:00 06/12/24 18:16 2 MG Calcium Acetate 1,334 mg Q8HR GT 06/02/24 14:00 06/12/24 21:25 1,334 MG Hydralazine HCl 50 mg Q12HR PO 06/09/24 10:00 06/12/24 21:26 50 MG Micafungin Sodium 100 mg/Sodium Chloride 100 ml @ 100 mls/hr DAILY IV 06/09/24 10:00 06/12/24 09:47 100 MLS/HR Aspirin 81 mg DAILY PO 06/10/24 10:00 06/12/24 09:47 81 MG Acetylcysteine 100 mg Q8HR NEB 06/09/24 22:00 06/12/24 21:56 100 MG Doxycycline Hyclate 100 ml @ 50 mls/hr Q12H IV 06/12/24 00:00 06/12/24 13:10 50 MLS/HR Nicardipine HCl 50 mg/Sodium Chloride 250 ml @ 25 mls/hr Q10H IV 06/12/24 13:45 06/12/24 22:00 75 MLS/HR Carvedilol 12.5 mg Q12HR PO 06/12/24 22:00 06/12/24 21:26 12.5 MG objective The patient is well-nourished and well-developed with no distress. The patient is intubated MENTAL STATUS: Subjective CRANIAL NERVES: Pupils are equal, round and reactive.There are spontaneous conjugated eye movement. No signs of facial weakness. There are gagging or coughing reflexes SENSATION: Okay to painful stimuli MOTOR: Normal tone in the upper and lower extremity. Normal muscle bulk. No fasciculations. No spontaneous movement. REFLEXES: Deep tendon reflexes are symmetrical. No pathological reflexes. CEREBELLAR/COORDINATION: Deferred GAIT/STATION: deferred. laboratory and microbiology Laboratory Tests 06/12/24 03:11 Test 06/12/24 03:11 Range/Units Serum Glucose 114 H 74-106 mg/dL Problem List Altered mental status/Coma Hypoxic encephalopathy secondary to respiratory failure Metabolic encephalopathy secondary to acidosis, sepsis, septic shock, kidney failure Heart attack Pneumonia Sepsis, septic shock Acute on chronic kidney failure Acute petechial hemorrhage in the left frontal lobe, improving on follow-up CT Assessment/Plan Monitoring Supportive treatment ICU care Follow-up labs EEG Stabilize vitals Respiratory support/vent management Oxygen IV antibiotics GI prophylaxis/Protonix DVT prophylaxis/heparin Nephrology on case Pulmonology on case More recommendation per clinical course This medical document was created using an electronic medical record system with [employer] dictation system. Although this document has been carefully reviewed, there may still be some phonetic and typographical errors. These areas are purely typographical due to imperfections of the software programs, and do not reflect any compromise in the patient's medical care Prognosis guarded Dietary Evaluation Review Comments: 1) If GI is accessible consider Jevity 1.2 @ 70ml/hr x 24hr continuous feed goal rate as tolerated 2) If pt remains NPO >7 days consider TPN to meet at least 75% of estimated needs 3) Advance pt diet when medically feasible to a 2gm Sodium diet modified per [employer] ARCHIT[employer] recommendations 4) Continue current plan of care Expected Outcomes/Goals: 1) Pt to receive nutrition support within 7 days of NPO status 2) Pt diet to advance 3) F/U in 2-3 days Plan discussed with: Other Critical Care Time(min): 30 PILAR HOOD MD Jun 12, 2024 23:17
--- NOTE | 2024-06-12 23:24 | DVHPN2 ---
Progress Note - Dictate Date Seen: Jun 12, 2024 Medical Necessity Reason Pt with a Central, PICC or Fol: Yes The following are medically ne: Central Line, Putnam Catheter Reason for putnam catheter: Strict I&O Subjective Patient seen and examined at bedside. intubated on mechanical ventilator. Overnight events reviewed. vital signs Vital Sign Date Time Temp Pulse Resp B/P (MAP) Pulse Ox O2 Delivery O2 Flow Rate FiO2 06/12/24 23:20 71 22 135/55 (81) 98 30 06/12/24 20:00 97.5 207.5 06/12/24 08:00 Mechanical Ventilator+ Total Intake and Output 06/11/24 06/11/24 06/12/24 15:00 23:00 07:00 Intake Total 980.84 ml 791.5 ml 1241.11 ml Output Total 1300 ml 650 ml Balance 980.84 ml -508.5 ml 591.11 ml medications Current Medications Medications Dose Ordered Sig/Yousif Route Start Time Stop Time Status Last Admin Dose Admin Midazolam HCl 50 ml @ 1 mls/hr Q24H IV 05/25/24 06:30 05/29/24 09:11 5 MLS/HR Atorvastatin Calcium 40 mg HS NG 05/25/24 22:00 06/12/24 21:27 40 MG Ondansetron HCl 4 mg Q4HP PRN IV 05/25/24 10:45 Nitroglycerin 0.4 mg Q5MINP PRN SL 05/25/24 10:45 Albuterol 2.5 mg Q4HR NEB 05/25/24 14:00 06/12/24 21:56 2.5 MG Ipratropium [place] 0.5 mg Q4HR NEB 05/25/24 14:00 06/12/24 21:56 0.5 MG Fentanyl Citrate 250 ml @ 2.5 mls/hr Q24H IV 05/25/24 19:30 06/12/24 22:30 20 MLS/HR Ibuprofen 400 mg Q4HP PRN GT 05/26/24 01:15 05/26/24 01:42 400 MG Cefepime HCl 0.5 gm/Dextrose 50 ml @ 12.5 mls/hr Q24H IV 05/29/24 18:00 06/11/24 19:37 12.5 MLS/HR Enteral Nutritional Formula 1,000 ml 30ML/HR GT 05/29/24 09:45 06/10/24 18:05 1,000 ML Dexmedetomidine HCl 400 mcg/ Dextrose 100 ml @ 8.18 mls/hr [id number] IV 05/29/24 14:15 06/12/24 10:27 16.36 MLS/HR Hydralazine HCl 10 mg Q6HP PRN IV 05/29/24 16:30 06/12/24 19:48 10 MG Pantoprazole Sodium 40 mg DAILY IV 05/30/24 10:00 06/12/24 09:48 40 MG Bumetanide 2 mg BIDD IV 05/30/24 18:00 06/12/24 18:16 2 MG Calcium Acetate 1,334 mg Q8HR GT 06/02/24 14:00 06/12/24 21:25 1,334 MG Hydralazine HCl 50 mg Q12HR PO 06/09/24 10:00 06/12/24 21:26 50 MG Micafungin Sodium 100 mg/Sodium Chloride 100 ml @ 100 mls/hr DAILY IV 06/09/24 10:00 06/12/24 09:47 100 MLS/HR Aspirin 81 mg DAILY PO 06/10/24 10:00 06/12/24 09:47 81 MG Acetylcysteine 100 mg Q8HR NEB 06/09/24 22:00 06/12/24 21:56 100 MG Doxycycline Hyclate 100 ml @ 50 mls/hr Q12H IV 06/12/24 00:00 06/12/24 13:10 50 MLS/HR Nicardipine HCl 50 mg/Sodium Chloride 250 ml @ 25 mls/hr Q10H IV 06/12/24 13:45 06/12/24 22:00 75 MLS/HR Carvedilol 12.5 mg Q12HR PO 06/12/24 22:00 06/12/24 21:26 12.5 MG objective Gen.: Patient lying in bed in medical ICU. Intubated on mechanical ventilator. Head: Normocephalic, atraumatic. Eyes: PERRLA. Ears: Normal external anatomy. Throat: Endotracheal tube and orogastric tube in place. Neck: Supple, trachea midline. Chest: Transmitted breath sounds bilaterally. Decreased air entry bilaterally. No wheezing. Bibasilar crackles. Cardiovascular: Positive S1, positive S2. Regular rate and rhythm. Abdomen: Positive bowel sounds in all 4 quadrants. Soft, nontender, nondistended. : Putnam in place. Normal external genitalia. Rectal: Deferred. Skin: Warm, dry. Intact. Extremities: 2+ radial pulses bilaterally. No lower extremity edema. Neuro: Off sedation laboratory and microbiology Laboratory Tests 06/12/24 03:11 Test 06/12/24 03:11 Range/Units Serum Glucose 114 H 74-106 mg/dL Assessment/Plan Impression: Acute hypoxic respiratory failure On mechanical ventilator Septic shock Elevated troponin Acute kidney injury Lactic acidosis Metabolic acidosis Multifocal pneumonia, likely gram negative Pulmonary edema AE COPD Events: On vent support On AC mode; RR 22, VT 600, PEEP 8, FiO2 30% Nicardipine drip for BP control Started Coreg Fentanyl for analgesia CXR demonstrates moderate pulmonary vascular congestion. Devices in place. Continue antibiotics Continue antifungal Tube feeds for nutritional support Wound care Monitor hemoglobin Monitor renal function Hemodialysis per Nephrology Nephrology recs appreciated. Echo showed EF of 40%. Neurology recommendations appreciated. SBT/KAREN Patient opens eyes, not following commands. Awaiting for mentation to improve. Poor prognosis Consider trach/PEG for liberation from vent if family wishes for aggressive care. CT head on 06/06/24 revealed the two foci of left frontal subcortical hemorrhage are less conspicuous - partially resolved. No new foci of hemorrhage. Neurology recs appreciated. Labs and imaging reviewed. Rest of plan as noted below. Plan: s/p intubation on mechanical ventilator. On AC mode; RR 22, VT 600, PEEP 8, FiO2 30% Titrate FIO2 to keep O2 saturation above 90%. VAP bundle. Daily ABG and CXR while intubated Off sedation Off pressors, hemodynamically stable. Continue bronchodilators. Continue antibiotics. F/u cultures. Pressors if necessary to maintain a mean arterial blood pressure greater than 65 mmHg. Cardiology recs appreciated. Monitor renal function Monitor electrolytes. Supplement as necessary. Monitor ins and outs. Nephrology recs appreciated. IV fluid hydration GI prophylaxis. DVT prophylaxis. Prognosis: Poor given patient's multiple co-morbidities. Condition: Critical Rest of plan per hospitalist and other consultants. A total of 35 minutes of critical care time was spent reviewing the patient record, examining the patient, making a diagnostic and therapeutic plan, discussing this plan with the medical personnel, following up on diagnostic studies and following the patient for clinical stability excluding any and all procedures. At least 50% of this time was spent in direct, [id number] contact. Thank you, RIBBER Viral, for allowing me to participate in this patient's care. Further recommendations will depend on the patient's clinical course. Please do not hesitate to contact me if you have any questions or concerns. This medical document was created using an electronic medical record system with Qubole dictation system. Although these documentations are being carefully reviewed, there may still be some phonetic and typographical changes. The errors are purely typographical, due to imperfection on the software program, and do not reflect any compromise in the patient's medical care. Dietary Evaluation Review Comments: 1) If GI is accessible consider Jevity 1.2 @ 70ml/hr x 24hr continuous feed goal rate as tolerated 2) If pt remains NPO >7 days consider TPN to meet at least 75% of estimated needs 3) Advance pt diet when medically feasible to a 2gm Sodium diet modified per EXECUTIVE SECRETARY recommendations 4) Continue current plan of care Expected Outcomes/Goals: 1) Pt to receive nutrition support within 7 days of NPO status 2) Pt diet to advance 3) F/U in 2-3 days Plan discussed with: Other (LUZMARIA Michael) Critical Care Time(min): 35 MELODY ELIZABETH MD Jun 12, 2024 23:24
[2024-06-13] VITALS (106 sets, daily range): BP systolic 95–215; BP diastolic 40–93; PULSE 53–103; RESP 16–36; TEMP 95.2–97.9; O2SAT 96–100
[2024-06-13 03:59] LABS: Basophils # (auto) 0 10 ^3/uL (0-0.2); Basophils % (auto) 0.4 % (0.0-2.0); Eosinophils # (auto) 0.2 10 ^3/uL (0-0.8); Eosinophils % (auto) 2.5 % (0.0-7.0); Hematocrit 31.8 % (36.0-46.0); Hemoglobin 10.7 g/dL (12.2-16.2); Lymphocytes # (auto) 0.6 10 ^3/uL (0.4-5.4); Lymphocytes % (auto) 6.5 % (10.0-50.0); Mean Corpuscular Hemoglobin 30.5 pg (28.0-32.0); Mean Corpuscular Hgb Conc. 33.5 g/dL (32.0-36.0); Monocytes % (auto) 10.5 % (0.0-12.0); Neutrophils # (auto) 7.7 10 ^3/uL (1.6-8.6); Neutrophils % (auto) 80.1 % (37.0-80.0); Nucleated Red Blood Cells % 0.1 %; Platelet Count (auto) 240 10^3/uL (140-450); Red Cell Distribution Width 16.5 % (11.8-14.3); White Blood Cell 9.6 10^3/uL (4.4-10.8)
[2024-06-13 04:16] LABS: Alkaline Phosphatase 109 U/L (46-116); Anion Gap 14 (5-15); BUN/Creatinine Ratio 17.4 (10.0-20.0); Calcium 10.2 mg/dL (8.7-10.4); Carbon Dioxide 22 mmol/L (20-31); Chloride 100 mmol/L (98-107)
[2024-06-13 04:17] LABS: Alanine Aminotransferase 127 U/L (7-40); Albumin 3.5 g/dL (3.2-4.8); Aspartate Aminotransferase 30 U/L (13-40); Bilirubin, Total 0.6 mg/dL (0.2-1.0); Blood Urea Nitrogen 78 mg/dL (9-23); Glucose 120 mg/dL (74-106); Potassium 3.5 mmol/L (3.5-5.1); Sodium 136 mmol/L (136-145); Total Protein 6.7 g/dL (5.7-8.2)
[2024-06-13] MEDS: DexmedeTOMIDine 4 ML IV ONE (04:54)
--- NOTE | 2024-06-13 05:24 | DVH ---
CHEST RADIOGRAPH Indication: Intubated. Technique: Single frontal view of the chest was obtained Comparison: XY CHEST XRAY 1 VIEW on DOS: 06/12/24, XY CHEST PORTABLE on DOS: 06/11/24, XY CHEST PORTABL E on DOS: 06/10/24 IMPRESSION: The heart is enlarged. Support lines and tubes appear similar in position. Patchy opacity in the rig ht lower lung persists. [id number] pulmonary vascular congestion.
[2024-06-13 07:13] LABS: Base Excess -0.7 mmol/L (-2.0-3.0)
--- NOTE | 2024-06-13 10:37 | DVHPN2 ---
Progress Note Date Seen: Jun 13, 2024 Medical Necessity Reason Pt with a Central, PICC or Fol: Yes The following are medically ne: Central Line, Putnam Catheter Reason for putnam catheter: Strict I&O Subjective Review of Systems: RESPIRATORY:Abnormal Other Systems: Patient seen and examined by myself today in follow-up Patient remained intubated on ventilator Objective vital signs Vital Sign Date Time Temp Pulse Resp B/P (MAP) Pulse Ox O2 Delivery O2 Flow Rate FiO2 06/13/24 10:28 61 22 129/49 (75) 99 30 06/13/24 03:45 97.8 97.8 06/12/24 20:00 Mechanical Ventilator+ Total Intake and Output 06/12/24 06/12/24 06/13/24 15:00 23:00 07:00 Intake Total 877.02 ml 672.5 ml 779.58 ml Output Total 350 ml 850 ml Balance 877.02 ml 322.5 ml -70.42 ml medications Current Medications Medications Dose Ordered Sig/Yousif Route Start Time Stop Time Status Last Admin Dose Admin Midazolam HCl 50 ml @ 1 mls/hr Q24H IV 05/25/24 06:30 05/29/24 09:11 5 MLS/HR Atorvastatin Calcium 40 mg HS NG 05/25/24 22:00 06/12/24 21:27 40 MG Ondansetron HCl 4 mg Q4HP PRN IV 05/25/24 10:45 Nitroglycerin 0.4 mg Q5MINP PRN SL 05/25/24 10:45 Albuterol 2.5 mg Q4HR NEB 05/25/24 14:00 06/13/24 10:27 2.5 MG Ipratropium [place] 0.5 mg Q4HR NEB 05/25/24 14:00 06/13/24 10:27 0.5 MG Fentanyl Citrate 250 ml @ 2.5 mls/hr Q24H IV 05/25/24 19:30 06/12/24 22:30 20 MLS/HR Ibuprofen 400 mg Q4HP PRN GT 05/26/24 01:15 05/26/24 01:42 400 MG Cefepime HCl 0.5 gm/Dextrose 50 ml @ 12.5 mls/hr Q24H IV 05/29/24 18:00 06/11/24 19:37 12.5 MLS/HR Enteral Nutritional Formula 1,000 ml 30ML/HR GT 05/29/24 09:45 06/10/24 18:05 1,000 ML Dexmedetomidine HCl 400 mcg/ Dextrose 100 ml @ 8.18 mls/hr [id number] IV 05/29/24 14:15 06/13/24 04:58 8.18 MLS/HR Hydralazine HCl 10 mg Q6HP PRN IV 05/29/24 16:30 06/13/24 02:09 10 MG Pantoprazole Sodium 40 mg DAILY IV 05/30/24 10:00 06/13/24 09:34 40 MG Bumetanide 2 mg BIDD IV 05/30/24 18:00 06/13/24 06:09 2 MG Calcium Acetate 1,334 mg Q8HR GT 06/02/24 14:00 06/13/24 06:00 1,334 MG Hydralazine HCl 50 mg Q12HR PO 06/09/24 10:00 06/13/24 09:35 50 MG Micafungin Sodium 100 mg/Sodium Chloride 100 ml @ 100 mls/hr DAILY IV 06/09/24 10:00 06/13/24 09:36 100 MLS/HR Aspirin 81 mg DAILY PO 06/10/24 10:00 06/13/24 09:35 81 MG Acetylcysteine 100 mg Q8HR NEB 06/09/24 22:00 06/13/24 06:38 100 MG Doxycycline Hyclate 100 ml @ 50 mls/hr Q12H IV 06/12/24 00:00 06/13/24 00:22 50 MLS/HR Nicardipine HCl 50 mg/Sodium Chloride 250 ml @ 25 mls/hr Q10H IV 06/12/24 13:45 06/13/24 09:15 75 MLS/HR Carvedilol 12.5 mg Q12HR PO 06/12/24 22:00 06/13/24 09:35 12.5 MG Examination: LUNGS:Normal, CVS:Normal, MSK:Normal laboratory and microbiology Laboratory Tests 06/13/24 03:37 Test 06/13/24 03:37 Range/Units Serum Glucose 120 H 74-106 mg/dL Microbiology Date/Time Source Procedure Growth Status 06/09/24 17:21 Urine - [place] Urine Culture - Final Complete 06/07/24 10:50 Blood Blood Culture - Final NO GROWTH AFTER 5 DAYS OF INCUBATION. Complete 05/27/24 08:50 Nose MRSA Screen - Final Complete 05/25/24 06:50 Sputum Gram Stain - Final Complete 05/25/24 06:50 Respiratory Culture - Final Presumptive Tara albicans Complete Problem List/Assessment/Plan Problem List/Assessment/Plan CHANG superimposed on CKD secondary to ATN needing HD Acute respiratory failure, intubated on ventilator Septic shock CHF, Ef 40% Morbid obesity Anemia of CKD Hypokalemia REC: Hemodialysis tomorrow Epogen [id number] IV post hemodialysis IV pressors for BP support Albumin 25% p.r.n. hemodialysis IV Abx KCL replacement Will continue to follow Plan discussed with: Other (Nurse) Dietary Evaluation Review Comments: 1) If GI is accessible consider Jevity 1.2 @ 70ml/hr x 24hr continuous feed goal rate as tolerated 2) If pt remains NPO >7 days consider TPN to meet at least 75% of estimated needs 3) Advance pt diet when medically feasible to a 2gm Sodium diet modified per CONSULTING NURSE recommendations 4) Continue current plan of care Expected Outcomes/Goals: 1) Pt to receive nutrition support within 7 days of NPO status 2) Pt diet to advance 3) F/U in 2-3 days MARIELA JONES MD Jun 13, 2024 10:37
[2024-06-13] MEDS: CARVEDILOL 12.5 MG TAB PO ONE (11:49)
--- NOTE | 2024-06-13 15:58 | DVHPN2 ---
Consult Progress Note Subjective Other Systems: Per bedside RN, patient had unequal pupils this morning. At time of assessment, pupils are equal and sluggish bilaterally. Pending repeat Head CT. Patient remains chemically sedated and mechanically ventilated. Patient in normal sinus rhythm on monitoring tech, remains on nicardipine drip Objective vital signs Vital Sign Date Time Temp Pulse Resp B/P (MAP) Pulse Ox O2 Delivery O2 Flow Rate FiO2 06/13/24 15:37 64 22 137/59 (85) 99 30 06/13/24 08:00 Mechanical Ventilator+ 06/13/24 03:45 97.8 97.8 Total Intake and Output 06/12/24 06/12/24 06/13/24 15:00 23:00 07:00 Intake Total 877.02 ml 672.5 ml 779.58 ml Output Total 350 ml 850 ml Balance 877.02 ml 322.5 ml -70.42 ml medications Current Medications Medications Dose Ordered Sig/Yousif Route Start Time Stop Time Status Last Admin Dose Admin Midazolam HCl 50 ml @ 1 mls/hr Q24H IV 05/25/24 06:30 05/29/24 09:11 5 MLS/HR Atorvastatin Calcium 40 mg HS NG 05/25/24 22:00 06/12/24 21:27 40 MG Ondansetron HCl 4 mg Q4HP PRN IV 05/25/24 10:45 Nitroglycerin 0.4 mg Q5MINP PRN SL 05/25/24 10:45 Albuterol 2.5 mg Q4HR NEB 05/25/24 14:00 06/13/24 14:13 2.5 MG Ipratropium [place] 0.5 mg Q4HR NEB 05/25/24 14:00 06/13/24 14:13 0.5 MG Fentanyl Citrate 250 ml @ 2.5 mls/hr Q24H IV 05/25/24 19:30 06/12/24 22:30 20 MLS/HR Ibuprofen 400 mg Q4HP PRN GT 05/26/24 01:15 05/26/24 01:42 400 MG Cefepime HCl 0.5 gm/Dextrose 50 ml @ 12.5 mls/hr Q24H IV 05/29/24 18:00 06/11/24 19:37 12.5 MLS/HR Enteral Nutritional Formula 1,000 ml 30ML/HR GT 05/29/24 09:45 06/10/24 18:05 1,000 ML Dexmedetomidine HCl 400 mcg/ Dextrose 100 ml @ 8.18 mls/hr [id number] IV 05/29/24 14:15 06/13/24 04:58 8.18 MLS/HR Hydralazine HCl 10 mg Q6HP PRN IV 05/29/24 16:30 06/13/24 02:09 10 MG Pantoprazole Sodium 40 mg DAILY IV 05/30/24 10:00 06/13/24 09:34 40 MG Bumetanide 2 mg BIDD IV 05/30/24 18:00 06/13/24 06:09 2 MG Calcium Acetate 1,334 mg Q8HR GT 06/02/24 14:00 06/13/24 13:50 1,334 MG Hydralazine HCl 50 mg Q12HR PO 06/09/24 10:00 06/13/24 09:35 50 MG Micafungin Sodium 100 mg/Sodium Chloride 100 ml @ 100 mls/hr DAILY IV 06/09/24 10:00 06/13/24 09:36 100 MLS/HR Aspirin 81 mg DAILY PO 06/10/24 10:00 06/13/24 09:35 81 MG Acetylcysteine 100 mg Q8HR NEB 06/09/24 22:00 06/13/24 14:13 100 MG Doxycycline Hyclate 100 ml @ 50 mls/hr Q12H IV 06/12/24 00:00 06/13/24 13:50 50 MLS/HR Nicardipine HCl 50 mg/Sodium Chloride 250 ml @ 25 mls/hr Q10H IV 06/12/24 13:45 06/13/24 14:27 50 MLS/HR Carvedilol 12.5 mg Q12HR PO 06/12/24 22:00 06/13/24 09:35 12.5 MG Examination: GENERAL:Abnormal, LUNGS:Abnormal (Mechanically ventilated), CVS:Normal, NEURO:Abnormal (Chemically sedated) laboratory and microbiology Laboratory Tests 06/13/24 03:37 Test 06/13/24 03:37 Range/Units Serum Glucose 120 H 74-106 mg/dL Problem List/Assessment/Plan Problem List/Assessment/Plan Septic shock Acute on chronic HFrEF, NYHA class IV, newly diagnosed Acute hypoxic respiratory failure NSTEMI, questionable Type I Mitral valve regurgitation, mild degree Hypertensive urgency Subcortical parenchymal hemorrhage Acute kidney injury on HD Morbidly obese Plan/Recommendation (Dr. Benson) * Echocardiogram revealed EF 40% with severe concentric LVH * GDMT for CHF as renal function permits. Currently on Coreg * Lipid-lowering agent. Reinitiate single antiplatelet therapy * ASA therapy cleared by neurology team * Cardiac surveillance: Monitor and notify for any ECG changes * Antibiotics per primary care team * Nephrology/Neurology recommendations * DVT/VTE prophylaxis: SCDs * Repeat Head CT We will further consider ischemic work-up once patient's neurological status is determined to be intact. Thank you for allowing us to care for this patient. Please call with any questions or concerns. Critical care time spent: 30 minutes. This medical document was created using an electronic medical record system with voice recognition software and computerized dictation system. Although this document has been carefully reviewed, there might still be some phonetic and typographical errors. Occasional wrong-word or ``sound-alike substitutions may have occurred due to the inherent limitations of voice recognition software. These areas are purely typographical due to imperfections of the software programs and do not reflect any compromise in the patient's medical care. Please read the chart carefully and recognize, using context, where these substitutions have occurred. Plan discussed with: Other (Bedside RN) Dietary Evaluation Review Comments: 1) If GI is accessible consider Jevity 1.2 @ 70ml/hr x 24hr continuous feed goal rate as tolerated 2) If pt remains NPO >7 days consider TPN to meet at least 75% of estimated needs 3) Advance pt diet when medically feasible to a 2gm Sodium diet modified per HEALTH SCIENCE INSTRUCTOR recommendations 4) Continue current plan of care Expected Outcomes/Goals: 1) Pt to receive nutrition support within 7 days of NPO status 2) Pt diet to advance 3) F/U in 2-3 days Date of Service: Jun 13, 2024 Billing Provider: CJ BENSON MD Common Visit Codes: [id number] CARE 30-74 MIN BOB TREVINO Jun 13, 2024 15:58
[2024-06-13] MEDS: POTASSIUM CHL 20MEQ/100ML 100 ML IV SCH (18:13)
--- NOTE | 2024-06-13 22:40 | DVHPN2 ---
Subjective Intubated and sedated; unequal pupils Reviewed: Care Plan, H&P, Labs, Medications, Previous Orders, Radiology, Other (Consultations) Changes from previous H/P or p: Changes Objective Vitals Vital Signs Date Time Temp Pulse Resp B/P (MAP) Pulse Ox O2 Delivery O2 Flow Rate FiO2 06/13/24 22:08 84 22 116/52 (73) 97 30 06/13/24 21:00 97.8 97.8 06/13/24 08:00 Mechanical Ventilator+ Intake/Output Intake and Output 06/13/24 07:00 Intake Total 2329.10 ml Output Total 1200 ml Balance 1129.10 ml Intake Oral 60 ml IV Total 1886.10 ml Tube Feeding 383 ml Output Urine Total 1200 ml General Appearance: Other (Intubated and sedated; morbidly obese) HEENT: Atraumatic, Other (Tongue swelling; unequal pupils) Lungs: Other (Mechanical ventilation sounds) Cardiovascular: Normal S1, Normal S2, Other (Irregular rhythm) Abdomen: Normal bowel sounds, Soft Genitourinary: Other ([place] catheter) Neuro: Other (Sedated) Psych/Mental Status: Other (Sedated) Medications Current Medications Medications Dose Ordered Sig/Yousif Route Start Time Stop Time Status Last Admin Dose Admin Midazolam HCl 50 ml @ 1 mls/hr Q24H IV 05/25/24 06:30 05/29/24 09:11 5 MLS/HR Atorvastatin Calcium 40 mg HS NG 05/25/24 22:00 06/12/24 21:27 40 MG Ondansetron HCl 4 mg Q4HP PRN IV 05/25/24 10:45 Nitroglycerin 0.4 mg Q5MINP PRN SL 05/25/24 10:45 Albuterol 2.5 mg Q4HR NEB 05/25/24 14:00 06/13/24 22:07 2.5 MG Ipratropium [place] 0.5 mg Q4HR NEB 05/25/24 14:00 06/13/24 22:07 0.5 MG Fentanyl Citrate 250 ml @ 2.5 mls/hr Q24H IV 05/25/24 19:30 06/13/24 17:30 17.5 MLS/HR Ibuprofen 400 mg Q4HP PRN GT 05/26/24 01:15 05/26/24 01:42 400 MG Cefepime HCl 0.5 gm/Dextrose 50 ml @ 12.5 mls/hr Q24H IV 05/29/24 18:00 06/13/24 17:59 12.5 MLS/HR Enteral Nutritional Formula 1,000 ml 30ML/HR GT 05/29/24 09:45 06/13/24 20:00 1,000 ML Dexmedetomidine HCl 400 mcg/ Dextrose 100 ml @ 8.18 mls/hr [id number] IV 05/29/24 14:15 06/13/24 04:58 8.18 MLS/HR Hydralazine HCl 10 mg Q6HP PRN IV 05/29/24 16:30 06/13/24 20:02 10 MG Pantoprazole Sodium 40 mg DAILY IV 05/30/24 10:00 06/13/24 09:34 40 MG Bumetanide 2 mg BIDD IV 05/30/24 18:00 06/13/24 17:53 2 MG Calcium Acetate 1,334 mg Q8HR GT 06/02/24 14:00 06/13/24 13:50 1,334 MG Hydralazine HCl 50 mg Q12HR PO 06/09/24 10:00 06/13/24 09:35 50 MG Micafungin Sodium 100 mg/Sodium Chloride 100 ml @ 100 mls/hr DAILY IV 06/09/24 10:00 06/13/24 09:36 100 MLS/HR Aspirin 81 mg DAILY PO 06/10/24 10:00 06/13/24 09:35 81 MG Acetylcysteine 100 mg Q8HR NEB 06/09/24 22:00 06/13/24 18:16 100 MG Doxycycline Hyclate 100 ml @ 50 mls/hr Q12H IV 06/12/24 00:00 06/13/24 13:50 50 MLS/HR Nicardipine HCl 50 mg/Sodium Chloride 250 ml @ 25 mls/hr Q10H IV 06/12/24 13:45 06/13/24 21:00 37.5 MLS/HR Carvedilol 25 mg Q12HR PO 06/13/24 22:00 Potassium Chloride 100 ml @ 50 mls/hr Q2H IV 06/13/24 18:00 06/13/24 23:59 06/13/24 22:03 50 MLS/HR Laboratory Results Laboratory Tests 06/13/24 03:37 06/13/24 17:33 Chemistry Test 06/13/24 03:37 Albumin 3.5 g/dL (3.2-4.8) Calcium Level 10.2 mg/dL (8.7-10.4) Magnesium Level 2.2 mg/dL (1.6-2.6) # Total Protein 6.7 g/dL (5.7-8.2) LFT Test 06/13/24 03:37 Alanine Aminotransferase (ALT) 127 U/L (7-40) H Alkaline Phosphatase 109 U/L (46-116) Aspartate Amino Transferase (AST) 30 U/L (13-40) Total Bilirubin 0.6 mg/dL (0.2-1.0) Urinalysis Test 05/25/24 08:30 05/28/24 01:30 Urine Color Yellow (Yellow) Urine Clarity Clear (Clear) Urine pH 7.5 (5.0-9.0) Urine Specific [place] 1.013 (1.001-1.035) Urine Protein 2+ (Negative) H Urine Ketones Negative (Negative) Urine Blood Negative /uL (Negative) Urine Nitrite Negative (Negative) Urine Bilirubin Negative (Negative) Urine Urobilinogen 8 mg/dL (Negative) H Urine Leukocyte Esterase Negative /uL (Negative) Urine RBC 5 /hpf (0 - 4) Urine WBC 1 /hpf (0 - 5) Urine Squamous Epithelial Cells Few /hpf (<5) Urine Bacteria None seen /hpf (None Seen) Urine Glucose Normal mg/dL (Normal) Urine Creatinine 248.25 mg/dL (30.0-125.0) H Urine Sodium 27 mmol/L (40-220) L Urine Total Protein 293.2 mg/dL (1-14) H Blood Gas Results Test 06/13/24 07:02 Arterial Blood pH 7.497 (7.350-7.450) FiO2 % 30.0 Microbiology Microbiology Date/Time Source Procedure Growth Status 06/09/24 17:21 Urine - [place] Urine Culture - Final Complete 06/07/24 10:50 Blood Blood Culture - Final NO GROWTH AFTER 5 DAYS OF INCUBATION. Complete 05/27/24 08:50 Nose MRSA Screen - Final Complete 05/25/24 06:50 Sputum Gram Stain - Final Complete 05/25/24 06:50 Respiratory Culture - Final Presumptive Tara albicans Complete Labs and/or images reviewed: Labs reviewed by me, Image(s) reviewed by me Assessment/Plan Assessment/Plan Covering Kaleb Mejia NP: #Acute metabolic/toxic encephalopathy in the setting of subcortical parenchymal hemorrhage; currently sedated; neurology is following; reviewed available imaging studies; continue close monitoring #Subcortical parenchymal hemorrhage; continue IV nicardipine to control blood pressure as per Neurology recommendations; continue close monitoring #Unequal pupils; ordered repeat head CT; continue close monitoring #Acute hypoxic respiratory failure due to fungal pneumonia; continue oxygen therapy via mechanical ventilation as per pulmonology; reviewed ABGs and chest x-ray; continue close monitoring #Septic shock with leukocytosis and lactic acidosis; due to Streptococcus pneumoniae bacteremia and fungal pneumonia; was on IV pressors; continue broad- spectrum IV antibiotics and IV antifungal; reviewed available cultures; continue close monitoring #Acute on chronic systolic heart failure; telemetry; cardiology is following; continue close monitoring #NSTEMI,; unclear if it is type 1 or type 2; telemetry; cardiology is following; continue close monitoring #CHANG superimposed on CKD secondary to ATN; can not rule out vasomotor nephropathy ; anuric; continue hemodialysis as per Nephrology; continue close monitoring #Electrolytes imbalance; colic/replace electrolytes as indicated; nephrology is following; continue close monitoring #Suspected angioedema; continue current medical management; intubated; continue close monitoring #Hypertensive emergency; telemetry; continue IV nicardipine; cardiology is following; continue close monitoring #Hypoalbuminemia; continue tube feeding; continue close monitoring #Morbid obesity; to adjust when the patient is awake; continue close monitoring #Normocytic anemia; most likely inflammatory; continue close monitoring 99 minutes of critical care time. Late Entry. This medical document was created using an electronic medical record system with computerized dictation system. Although this document has been carefully reviewed, there might still be some phonetic and typographical errors. These areas are purely typographical due to imperfections of the software programs, and do not reflect any compromise in the patient's medical care. Plan discussed with: Other (Nurse) My Orders Orders - LEEANNA BRICE MD Procedure Category Date Status Time Complete Blood Count LAB 06/14/24 Verified 04:00 Comprehensive LAB 06/14/24 Verified Metabolic Panel 04:00 Chest Xray 1 View XY 06/14/24 Logged 04:00 Abg W/ Co-Ox RT 06/14/24 Logged 06:00 Date of Service: Jun 13, 2024 Billing Provider: LEEANNA BRICE MD Common Visit Codes: [id number] CARE 30-74 MIN (99 minutes), [id number] CARE-EACH +30MIN LEEANNA BRICE MD Jun 13, 2024 22:39
--- NOTE | 2024-06-13 22:44 | DVHPN2 ---
Progress Note - Dictate Date Seen: Jun 13, 2024 Medical Necessity Reason Pt with a Central, PICC or Fol: Yes The following are medically ne: Central Line, Putnam Catheter Reason for putnam catheter: Strict I&O Subjective Ms. Pandya is a 53 years old right-handed female with a history of morbid obesity, hypertension, the patient was was brought to the [facility] on 05/25/24 with a chief company of altered mental status, respiratory distress. I have seen and examined the patient, I have talked to her nurse,. She is awake, responsive to verbal stimuli and she moves the bilateral toes on my verbal commands. She has low temperature and we are I have time warming blanket Earlier today, the patient was found to have unequal but reactive pupils Fentanyl 200 mcg/hour, Urine culture, 05/25/2024: Negative Blood culture, 05/25/2024: Streptococcus pneumoniae UDS, 05/25/2024: Negative Urinalysis, 05/25/2024: WBC: 1, urine leukocyte esterase: Negative ABG, 05/25/2024: Metabolic acidosis, hypoxia, 05/26/2024: Metabolic acidosis, hypoxia, 05/27/24: Metabolic acidosis, hypoxia WBC/HB/PLT/MCV, 06/02/2024: 22.4/9/342/89.4 06/09/2024: 19.6/9.4/235/91.6, 06/12/2024: 8.2/9.2/205/90.6 BUN/CR, 05/26/2024: 62/7.01 06/02/2024: 123/6.59, 06/09/2024: 137/6.32, 06/12/2024: 71/4.33 HGB A1c, 05/25/2024: 5.6 Lactic acid, 05/25/2024: 3.6, 4.6, 4.2, 05/26/2024: 3.6 Troponin one high sensitivity, 05/25/2024: 1060, 1354, 1262 TBI/AST/ALT/AP, 05/26/2024: 2/246/167/98, 06/07/2024: 0.9/139/464/93 TG/HDL/LDL/HDL, 05/25/2024: 192/98/40/8 Vitamin B12, 06/02/2024: 836 TSH, 05/25/2024: 0.57 Chest x-ray, 05/25/2024: 1. Distal tip of the endotracheal tube is approximately 5.5 cm above the level of the nik. 2. Poorly visualized enteric tube at its distal aspect. Appears to reach the gastroesophageal junction, although not visualized distal to this point. Correlate with clinical findings. 3. Bilateral airspace opacities and interstitial opacities, may be due to multifocal pneumonia or pulmonary edema in the appropriate clinical setting CT head, 05/25/2024: No gross acute intracranial process CT head, 06/02/24: 1. Interval development of 2 foci of subcortical parenchymal hemorrhage in the left frontal lobe. No mass effect or midline shift. 2. Moderate amount of fluid in the posterior nasopharynx likely related to intubation. Recommend suctioning to prevent aspiration. 3. Small bilateral mastoid effusions. We are in the process of reaching out to the nurse or physician in charge of the patient to convey the findings. CT head, 06/04/2024: Redemonstrated are 2 hyperdense foci in the subcortical left frontal lobe which may represent small foci of parenchymal hemorrhage. There is no significant surrounding edema or associated mass effect CT head, 06/06/2024: The 2 foci of left frontal subcortical hemorrhage are less conspicuous in the current exam partially resolved. No new foci of hemorrhage vital signs Vital Sign Date Time Temp Pulse Resp B/P (MAP) Pulse Ox O2 Delivery O2 Flow Rate FiO2 06/13/24 22:08 84 22 116/52 (73) 97 30 06/13/24 21:00 97.8 97.8 06/13/24 08:00 Mechanical Ventilator+ Total Intake and Output 06/12/24 06/12/24 06/13/24 15:00 23:00 07:00 Intake Total 877.02 ml 672.5 ml 779.58 ml Output Total 350 ml 850 ml Balance 877.02 ml 322.5 ml -70.42 ml medications Current Medications Medications Dose Ordered Sig/Yousif Route Start Time Stop Time Status Last Admin Dose Admin Midazolam HCl 50 ml @ 1 mls/hr Q24H IV 05/25/24 06:30 05/29/24 09:11 5 MLS/HR Atorvastatin Calcium 40 mg HS NG 05/25/24 22:00 06/12/24 21:27 40 MG Ondansetron HCl 4 mg Q4HP PRN IV 05/25/24 10:45 Nitroglycerin 0.4 mg Q5MINP PRN SL 05/25/24 10:45 Albuterol 2.5 mg Q4HR NEB 05/25/24 14:00 06/13/24 22:07 2.5 MG Ipratropium [place] 0.5 mg Q4HR NEB 05/25/24 14:00 06/13/24 22:07 0.5 MG Fentanyl Citrate 250 ml @ 2.5 mls/hr Q24H IV 05/25/24 19:30 06/13/24 17:30 17.5 MLS/HR Ibuprofen 400 mg Q4HP PRN GT 05/26/24 01:15 05/26/24 01:42 400 MG Cefepime HCl 0.5 gm/Dextrose 50 ml @ 12.5 mls/hr Q24H IV 05/29/24 18:00 06/13/24 17:59 12.5 MLS/HR Enteral Nutritional Formula 1,000 ml 30ML/HR GT 05/29/24 09:45 06/13/24 20:00 1,000 ML Dexmedetomidine HCl 400 mcg/ Dextrose 100 ml @ 8.18 mls/hr [id number] IV 05/29/24 14:15 06/13/24 04:58 8.18 MLS/HR Hydralazine HCl 10 mg Q6HP PRN IV 05/29/24 16:30 06/13/24 20:02 10 MG Pantoprazole Sodium 40 mg DAILY IV 05/30/24 10:00 06/13/24 09:34 40 MG Bumetanide 2 mg BIDD IV 05/30/24 18:00 06/13/24 17:53 2 MG Calcium Acetate 1,334 mg Q8HR GT 06/02/24 14:00 06/13/24 13:50 1,334 MG Hydralazine HCl 50 mg Q12HR PO 06/09/24 10:00 06/13/24 09:35 50 MG Micafungin Sodium 100 mg/Sodium Chloride 100 ml @ 100 mls/hr DAILY IV 06/09/24 10:00 06/13/24 09:36 100 MLS/HR Aspirin 81 mg DAILY PO 06/10/24 10:00 06/13/24 09:35 81 MG Acetylcysteine 100 mg Q8HR NEB 06/09/24 22:00 06/13/24 18:16 100 MG Doxycycline Hyclate 100 ml @ 50 mls/hr Q12H IV 06/12/24 00:00 06/13/24 13:50 50 MLS/HR Nicardipine HCl 50 mg/Sodium Chloride 250 ml @ 25 mls/hr Q10H IV 06/12/24 13:45 06/13/24 21:00 37.5 MLS/HR Carvedilol 25 mg Q12HR PO 06/13/24 22:00 Potassium Chloride 100 ml @ 50 mls/hr Q2H IV 06/13/24 18:00 06/13/24 23:59 06/13/24 22:03 50 MLS/HR objective The patient is well-nourished and well-developed with no distress. The patient is intubated MENTAL STATUS: Subjective CRANIAL NERVES: Pupils are round and reactive, with a left-sided slightly bigger. There are spontaneous conjugated eye movement. No signs of facial weakness. There are gagging or coughing reflexes. No abnormal vascular dilatation and skin secretion SENSATION: Okay to painful stimuli MOTOR: Normal tone in the upper and lower extremity. Normal muscle bulk. No fasciculations. She can move bilateral toes REFLEXES: Deep tendon reflexes are symmetrical. No pathological reflexes. CEREBELLAR/COORDINATION: Deferred GAIT/STATION: deferred. laboratory and microbiology Laboratory Tests 06/13/24 17:33 06/13/24 03:37 Test 06/13/24 03:37 Range/Units Serum Glucose 120 H 74-106 mg/dL Problem List Altered mental status/Coma Hypoxic encephalopathy secondary to respiratory failure Metabolic encephalopathy secondary to acidosis, sepsis, septic shock, kidney failure Heart attack Pneumonia Sepsis, septic shock Acute on chronic kidney failure Acute petechial hemorrhage in the left frontal lobe, improving on follow-up CT Anisocoria, uncertain clinical significance Assessment/Plan Monitoring Supportive treatment ICU care Follow-up labs EEG Stabilize vitals Respiratory support/vent management Oxygen IV antibiotics GI prophylaxis/Protonix DVT prophylaxis/heparin Nephrology on case Pulmonology on case More recommendation per clinical course This medical document was created using an electronic medical record system with [employer] dictation system. Although this document has been carefully reviewed, there may still be some phonetic and typographical errors. These areas are purely typographical due to imperfections of the software programs, and do not reflect any compromise in the patient's medical care Prognosis guarded Dietary Evaluation Review Comments: 1) If GI is accessible consider Jevity 1.2 @ 70ml/hr x 24hr continuous feed goal rate as tolerated 2) If pt remains NPO >7 days consider TPN to meet at least 75% of estimated needs 3) Advance pt diet when medically feasible to a 2gm Sodium diet modified per LOCAL GOVERNMENT LEGISLATOR recommendations 4) Continue current plan of care Expected Outcomes/Goals: 1) Pt to receive nutrition support within 7 days of NPO status 2) Pt diet to advance 3) F/U in 2-3 days Plan discussed with: Other Critical Care Time(min): 35 PILAR HOOD MD Jun 13, 2024 22:44
[2024-06-13] MEDS: CARVEDILOL 12.5 MG TAB PO SCH (22:47)
--- NOTE | 2024-06-13 22:53 | DVHPN2 ---
Progress Note - Dictate Date Seen: Jun 13, 2024 Medical Necessity Reason Pt with a Central, PICC or Fol: Yes The following are medically ne: Central Line, Putnam Catheter Reason for putnam catheter: Strict I&O Subjective Patient seen and examined at bedside. intubated on mechanical ventilator. Overnight events reviewed. vital signs Vital Sign Date Time Temp Pulse Resp B/P (MAP) Pulse Ox O2 Delivery O2 Flow Rate FiO2 06/13/24 22:48 156/85 06/13/24 22:47 107 06/13/24 22:08 22 97 30 06/13/24 21:00 97.8 97.8 06/13/24 08:00 Mechanical Ventilator+ Total Intake and Output 06/12/24 06/12/24 06/13/24 15:00 23:00 07:00 Intake Total 877.02 ml 672.5 ml 779.58 ml Output Total 350 ml 850 ml Balance 877.02 ml 322.5 ml -70.42 ml medications Current Medications Medications Dose Ordered Sig/Yousif Route Start Time Stop Time Status Last Admin Dose Admin Midazolam HCl 50 ml @ 1 mls/hr Q24H IV 05/25/24 06:30 05/29/24 09:11 5 MLS/HR Atorvastatin Calcium 40 mg HS NG 05/25/24 22:00 06/13/24 22:48 40 MG Ondansetron HCl 4 mg Q4HP PRN IV 05/25/24 10:45 Nitroglycerin 0.4 mg Q5MINP PRN SL 05/25/24 10:45 Albuterol 2.5 mg Q4HR NEB 05/25/24 14:00 06/13/24 22:07 2.5 MG Ipratropium [place] 0.5 mg Q4HR NEB 05/25/24 14:00 06/13/24 22:07 0.5 MG Fentanyl Citrate 250 ml @ 2.5 mls/hr Q24H IV 05/25/24 19:30 06/13/24 17:30 17.5 MLS/HR Ibuprofen 400 mg Q4HP PRN GT 05/26/24 01:15 05/26/24 01:42 400 MG Cefepime HCl 0.5 gm/Dextrose 50 ml @ 12.5 mls/hr Q24H IV 05/29/24 18:00 06/13/24 17:59 12.5 MLS/HR Enteral Nutritional Formula 1,000 ml 30ML/HR GT 05/29/24 09:45 06/13/24 20:00 1,000 ML Dexmedetomidine HCl 400 mcg/ Dextrose 100 ml @ 8.18 mls/hr [id number] IV 05/29/24 14:15 06/13/24 04:58 8.18 MLS/HR Hydralazine HCl 10 mg Q6HP PRN IV 05/29/24 16:30 06/13/24 20:02 10 MG Pantoprazole Sodium 40 mg DAILY IV 05/30/24 10:00 06/13/24 09:34 40 MG Bumetanide 2 mg BIDD IV 05/30/24 18:00 06/13/24 17:53 2 MG Calcium Acetate 1,334 mg Q8HR GT 06/02/24 14:00 06/13/24 22:46 1,334 MG Hydralazine HCl 50 mg Q12HR PO 06/09/24 10:00 06/13/24 22:48 50 MG Micafungin Sodium 100 mg/Sodium Chloride 100 ml @ 100 mls/hr DAILY IV 06/09/24 10:00 06/13/24 09:36 100 MLS/HR Aspirin 81 mg DAILY PO 06/10/24 10:00 06/13/24 09:35 81 MG Acetylcysteine 100 mg Q8HR NEB 06/09/24 22:00 06/13/24 18:16 100 MG Doxycycline Hyclate 100 ml @ 50 mls/hr Q12H IV 06/12/24 00:00 06/13/24 13:50 50 MLS/HR Nicardipine HCl 50 mg/Sodium Chloride 250 ml @ 25 mls/hr Q10H IV 06/12/24 13:45 06/13/24 21:00 37.5 MLS/HR Carvedilol 25 mg Q12HR PO 06/13/24 22:00 06/13/24 22:47 25 MG Potassium Chloride 100 ml @ 50 mls/hr Q2H IV 06/13/24 18:00 06/13/24 23:59 06/13/24 22:03 50 MLS/HR objective Gen.: Patient lying in bed in medical ICU. Intubated on mechanical ventilator. Head: Normocephalic, atraumatic. Eyes: PERRLA. Ears: Normal external anatomy. Throat: Endotracheal tube and orogastric tube in place. Neck: Supple, trachea midline. Chest: Transmitted breath sounds bilaterally. Decreased air entry bilaterally. No wheezing. Bibasilar crackles. Cardiovascular: Positive S1, positive S2. Regular rate and rhythm. Abdomen: Positive bowel sounds in all 4 quadrants. Soft, nontender, nondistended. : Putnam in place. Normal external genitalia. Rectal: Deferred. Skin: Warm, dry. Intact. Extremities: 2+ radial pulses bilaterally. No lower extremity edema. Neuro: Off sedation laboratory and microbiology Laboratory Tests 06/13/24 17:33 06/13/24 03:37 Test 06/13/24 03:37 Range/Units Serum Glucose 120 H 74-106 mg/dL Assessment/Plan Impression: Acute hypoxic respiratory failure On mechanical ventilator Septic shock Elevated troponin Acute kidney injury Lactic acidosis Metabolic acidosis Multifocal pneumonia, likely gram negative Pulmonary edema AE COPD Events: On vent support On AC mode; RR 22, VT 600, PEEP 8, FiO2 30% Nicardipine drip for BP control On Coreg Precedex drip Fentanyl for analgesia ABG reviewed, compensated CXR demonstrates pulmonary edema. Devices in place. Continue antibiotics Increased BP on nicardipine drip Pt does not tolerate turns - becomes hypertensive. Plan for CT head. Tube feeds for nutritional support Wound care Monitor hemoglobin Monitor renal function Hemodialysis per Nephrology Nephrology recs appreciated. Echo showed EF of 40%. Neurology recommendations appreciated. SBT/KAREN Patient opens eyes, not following commands. Awaiting for mentation to improve. Poor prognosis Consider trach/PEG for liberation from vent if family wishes for aggressive care. CT head on 06/06/24 revealed the two foci of left frontal subcortical hemorrhage are less conspicuous - partially resolved. No new foci of hemorrhage. Neurology recs appreciated. Labs and imaging reviewed. Rest of plan as noted below. Plan: s/p intubation on mechanical ventilator. On AC mode; RR 22, VT 600, PEEP 8, FiO2 30% Titrate FIO2 to keep O2 saturation above 90%. VAP bundle. Daily ABG and CXR while intubated Off sedation Off pressors, hemodynamically stable. Continue bronchodilators. Continue antibiotics. F/u cultures. Pressors if necessary to maintain a mean arterial blood pressure greater than 65 mmHg. Cardiology recs appreciated. Monitor renal function Monitor electrolytes. Supplement as necessary. Monitor ins and outs. Nephrology recs appreciated. IV fluid hydration GI prophylaxis. DVT prophylaxis. Prognosis: Poor given patient's multiple co-morbidities. Condition: Critical Rest of plan per hospitalist and other consultants. A total of 35 minutes of critical care time was spent reviewing the patient record, examining the patient, making a diagnostic and therapeutic plan, discussing this plan with the medical personnel, following up on diagnostic studies and following the patient for clinical stability excluding any and all procedures. At least 50% of this time was spent in direct, [id number] contact. Thank you, [employer], for allowing me to participate in this patient's care. Further recommendations will depend on the patient's clinical course. Please do not hesitate to contact me if you have any questions or concerns. This medical document was created using an electronic medical record system with [employer] dictation system. Although these documentations are being carefully reviewed, there may still be some phonetic and typographical changes. The errors are purely typographical, due to imperfection on the software program, and do not reflect any compromise in the patient's medical care. Dietary Evaluation Review Comments: 1) If GI is accessible consider Jevity 1.2 @ 70ml/hr x 24hr continuous feed goal rate as tolerated 2) If pt remains NPO >7 days consider TPN to meet at least 75% of estimated needs 3) Advance pt diet when medically feasible to a 2gm Sodium diet modified per STOCK HOLDER recommendations 4) Continue current plan of care Expected Outcomes/Goals: 1) Pt to receive nutrition support within 7 days of NPO status 2) Pt diet to advance 3) F/U in 2-3 days Plan discussed with: Other (LUZMARIA Fowler) Critical Care Time(min): 35 MELODY ELIZABETH MD Jun 13, 2024 22:53
[2024-06-14] VITALS (109 sets, daily range): BP systolic 86–222; BP diastolic 42–110; PULSE 73–108; RESP 15–44; TEMP 98–99; O2SAT 96–100
[2024-06-14 04:02] LABS: Basophils # (auto) 0 10 ^3/uL (0-0.2); Basophils % (auto) 0.4 % (0.0-2.0); Eosinophils # (auto) 0.3 10 ^3/uL (0-0.8); Eosinophils % (auto) 2.9 % (0.0-7.0); Hematocrit 27.4 % (36.0-46.0); Lymphocytes # (auto) 0.7 10 ^3/uL (0.4-5.4); Lymphocytes % (auto) 8.6 % (10.0-50.0); Mean Corpuscular Hemoglobin 30.2 pg (28.0-32.0); Mean Corpuscular Hgb Conc. 32.8 g/dL (32.0-36.0); Monocytes # (auto) 1.1 10 ^3/uL (0-1.3); Monocytes % (auto) 12.6 % (0.0-12.0); Neutrophils # (auto) 6.6 10 ^3/uL (1.6-8.6); Neutrophils % (auto) 75.5 % (37.0-80.0); Platelet Count (auto) 206 10^3/uL (140-450); Red Blood Cells 2.98 10^6/uL (4.0-5.20); Red Cell Distribution Width 16.5 % (11.8-14.3); White Blood Cell 8.8 10^3/uL (4.4-10.8)
[2024-06-14 04:25] LABS: Albumin 3.3 g/dL (3.2-4.8); Alkaline Phosphatase 103 U/L (46-116); Anion Gap 14 (5-15); Aspartate Aminotransferase 23 U/L (13-40); BUN/Creatinine Ratio 18.7 (10.0-20.0); Bilirubin, Total 0.5 mg/dL (0.2-1.0); Calcium 9.7 mg/dL (8.7-10.4); Carbon Dioxide 21 mmol/L (20-31); Chloride 102 mmol/L (98-107); Glucose 103 mg/dL (74-106); Sodium 137 mmol/L (136-145); Total Protein 6.2 g/dL (5.7-8.2)
[2024-06-14 04:41] LABS: Alanine Aminotransferase 95 U/L (7-40); Blood Urea Nitrogen 85 mg/dL (9-23)
--- NOTE | 2024-06-14 05:25 | DVH ---
EXAM: XY CHEST XRAY 1 VIEW Indication: Intubated. Technique: Single frontal view of the chest was obtained Comparison: XY CHEST XRAY 1 VIEW on DOS: 06/13/24, XY CHEST XRAY 1 VIEW on DOS: 06/12/24, XY CHEST PORT ABLE on DOS: 06/11/24, XY CHEST PORTABLE on DOS: 06/10/24, XY CHEST PORTABLE on DOS: 06/09/24, XY CHEST XRAY 1 VIEW on DOS: 06/13/24 FINDINGS: Lines and Tubes: Endotracheal tube, enteric tube, left internal jugular central venous catheter tip a re unchanged. Lungs: Diffuse multifocal consolidative opacities. Pleura: No effusion. Left costophrenic angles collimated from field of view. No pneumothorax. Cardiomediastinal contours: Cardiomegaly. Bones: No acute osseous abnormality. IMPRESSION: No significant change compared to prior exam allowing for differences technique.
[2024-06-14] MEDS: SODIUM CHL 0.9% 1000 ML BAG XX ONE (07:00)
[2024-06-14 08:47] LABS: Base Excess -2.5 mmol/L (-2.0-3.0)
--- NOTE | 2024-06-14 09:55 | DVHPN2 ---
Subjective Patient was encephalopathic, but opening eyes. Reviewed: Care Plan, H&P, Labs, Medications, Previous Orders, Radiology, Other Changes from previous H/P or p: No Changes General: Per HPI Objective Vitals Vital Signs Date Time Temp Pulse Resp B/P (MAP) Pulse Ox O2 Delivery O2 Flow Rate FiO2 06/14/24 08:00 30 06/14/24 08:00 86 06/14/24 06:45 22 167/72 (103) 99 06/14/24 04:00 98.3 98.3 06/13/24 20:00 Mechanical Ventilator+ Intake/Output Intake and Output 06/14/24 07:00 Intake Total 2966.89 ml Output Total 2600 ml Balance 366.89 ml Intake Oral 50 ml IV Total 1960.89 ml Tube Feeding 566 ml Other 390 ml Output Urine Total 2600 ml General Appearance: Other HEENT: Atraumatic, Other Lungs: Other Cardiovascular: Normal S1, Normal S2, Other Abdomen: Normal bowel sounds, Soft Genitourinary: Other Neuro: Other Psych/Mental Status: Other Medications Current Medications Medications Dose Ordered Sig/Yousif Route Start Time Stop Time Status Last Admin Dose Admin Midazolam HCl 50 ml @ 1 mls/hr Q24H IV 05/25/24 06:30 05/29/24 09:11 5 MLS/HR Atorvastatin Calcium 40 mg HS NG 05/25/24 22:00 06/13/24 22:48 40 MG Ondansetron HCl 4 mg Q4HP PRN IV 05/25/24 10:45 Nitroglycerin 0.4 mg Q5MINP PRN SL 05/25/24 10:45 Albuterol 2.5 mg Q4HR NEB 05/25/24 14:00 06/14/24 02:07 2.5 MG Ipratropium [place] 0.5 mg Q4HR NEB 05/25/24 14:00 06/14/24 02:07 0.5 MG Fentanyl Citrate 250 ml @ 2.5 mls/hr Q24H IV 05/25/24 19:30 06/14/24 05:36 20 MLS/HR Ibuprofen 400 mg Q4HP PRN GT 05/26/24 01:15 05/26/24 01:42 400 MG Cefepime HCl 0.5 gm/Dextrose 50 ml @ 12.5 mls/hr Q24H IV 05/29/24 18:00 06/13/24 17:59 12.5 MLS/HR Enteral Nutritional Formula 1,000 ml 30ML/HR GT 05/29/24 09:45 06/13/24 20:00 1,000 ML Dexmedetomidine HCl 400 mcg/ Dextrose 100 ml @ 8.18 mls/hr [id number] IV 05/29/24 14:15 06/13/24 04:58 8.18 MLS/HR Hydralazine HCl 10 mg Q6HP PRN IV 05/29/24 16:30 06/13/24 20:02 10 MG Pantoprazole Sodium 40 mg DAILY IV 05/30/24 10:00 06/13/24 09:34 40 MG Bumetanide 2 mg BIDD IV 05/30/24 18:00 06/14/24 05:44 2 MG Calcium Acetate 1,334 mg Q8HR GT 06/02/24 14:00 06/14/24 05:44 1,334 MG Hydralazine HCl 50 mg Q12HR PO 06/09/24 10:00 06/13/24 22:48 50 MG Micafungin Sodium 100 mg/Sodium Chloride 100 ml @ 100 mls/hr DAILY IV 06/09/24 10:00 06/13/24 09:36 100 MLS/HR Aspirin 81 mg DAILY PO 06/10/24 10:00 06/14/24 09:28 81 MG Acetylcysteine 100 mg Q8HR NEB 06/09/24 22:00 06/13/24 18:16 100 MG Doxycycline Hyclate 100 ml @ 50 mls/hr Q12H IV 06/12/24 00:00 06/14/24 00:00 50 MLS/HR Nicardipine HCl 50 mg/Sodium Chloride 250 ml @ 25 mls/hr Q10H IV 06/12/24 13:45 06/13/24 21:00 37.5 MLS/HR Carvedilol 25 mg Q12HR PO 06/13/24 22:00 06/13/24 22:47 25 MG Laboratory Results Laboratory Tests 06/14/24 03:35 Chemistry Test 06/14/24 03:35 Albumin 3.3 g/dL (3.2-4.8) Calcium Level 9.7 mg/dL (8.7-10.4) Total Protein 6.2 g/dL (5.7-8.2) LFT Test 06/14/24 03:35 Alanine Aminotransferase (ALT) 95 U/L (7-40) H Alkaline Phosphatase 103 U/L (46-116) Aspartate Amino Transferase (AST) 23 U/L (13-40) Total Bilirubin 0.5 mg/dL (0.2-1.0) Urinalysis Test 05/25/24 08:30 05/28/24 01:30 Urine Color Yellow (Yellow) Urine Clarity Clear (Clear) Urine pH 7.5 (5.0-9.0) Urine Specific [place] 1.013 (1.001-1.035) Urine Protein 2+ (Negative) H Urine Ketones Negative (Negative) Urine Blood Negative /uL (Negative) Urine Nitrite Negative (Negative) Urine Bilirubin Negative (Negative) Urine Urobilinogen 8 mg/dL (Negative) H Urine Leukocyte Esterase Negative /uL (Negative) Urine RBC 5 /hpf (0 - 4) Urine WBC 1 /hpf (0 - 5) Urine Squamous Epithelial Cells Few /hpf (<5) Urine Bacteria None seen /hpf (None Seen) Urine Glucose Normal mg/dL (Normal) Urine Creatinine 248.25 mg/dL (30.0-125.0) H Urine Sodium 27 mmol/L (40-220) L Urine Total Protein 293.2 mg/dL (1-14) H Blood Gas Results Test 06/14/24 08:17 Arterial Blood pH 7.481 (7.350-7.450) FiO2 % 30.0 Microbiology Microbiology Date/Time Source Procedure Growth Status 06/09/24 17:21 Urine - [place] Urine Culture - Final Complete 06/07/24 10:50 Blood Blood Culture - Final NO GROWTH AFTER 5 DAYS OF INCUBATION. Complete 05/27/24 08:50 Nose MRSA Screen - Final Complete 05/25/24 06:50 Sputum Gram Stain - Final Complete 05/25/24 06:50 Respiratory Culture - Final Presumptive Tara albicans Complete Labs and/or images reviewed: Labs reviewed by me, Image(s) reviewed by me Assessment/Plan Assessment/Plan Impression: -severe sepsis with shock , Streptococcus pneumoniae -probable community-acquired pneumonia with Gram-positive cocci -sepsis with Gram-positive cocci -acute hypoxic respiratory failure with mechanical ventilation -obesity -acute kidney injury, anuric -NSTEMI, probably type 2 -hypoalbuminemia -? Angioedema Plan: Events: Discussed case with primary nurses well as ironing worker. We will attempt to transition patient to SIMV mode with a rate of eight, and increase pressure support of 12. If patient tolerates, we will proceed with CPAP trial after hemodialysis today. -patient continues to be off vasopressor therapy, hemodynamically stable, white blood cell count improving, plans for spontaneous breathing trial once patient awakens -bronchodilators -continue cefepime and Diflucan -continue current ventilator settings. Patient now on 30% FiO2 -nephrology consultation: Received HD yesterday with noted improvement with B/C -PUD, DVT prophylaxis -repeat labs, chest x-ray, ABG in a.m.. Critical care time spent with patient discussing and formulating plan of care: 90 minutes. This does not include time spent performing procedures. This medical document was created using an electronic medical record system with [employer] dictation system. Although this document has been carefully reviewed, there may still be some phonetic and typographical errors. These areas are purely typographical due to imperfections of the software programs, and do not reflect any compromise in the patient's medical care. Plan discussed with: Patient, Other (RN) My Orders Orders - OMAR PARK NP Procedure Category Date Status Time Ventilator Orders RT 06/14/24 Transmitted 09:46 Hydralazine Hcl PHA 06/14/24 Verified Tablet (Apresoline 14:00 Date of Service: Jun 14, 2024 Billing Provider: OMAR PARK NP Common Visit Codes: [id number] CARE 30-74 MIN OMAR PARK NP Jun 14, 2024 09:55
--- NOTE | 2024-06-14 10:32 | DVHPN2 ---
Progress Note - Dictate Date Seen: Jun 14, 2024 Medical Necessity Reason Pt with a Central, PICC or Fol: Yes The following are medically ne: Central Line, Putnam Catheter Reason for putnam catheter: Strict I&O Subjective Ms. Pandya is a 53 years old right-handed female with a history of morbid obesity, hypertension, the patient was was brought to the [facility] on 05/25/24 with a chief company of altered mental status, respiratory distress. I have seen and examined the patient, I have talked to her nurse. Her eyes are open, two by equal round and reactive, the conjugated eye movement, but she was nonresponsive to verbal stimuli or follow verbal commands Fentanyl 200 mcg/hour, Versed 3 mg/minutes, levo 2 mcg/minute Urine culture, 05/25/2024: Negative Blood culture, 05/25/2024: Streptococcus pneumoniae UDS, 05/25/2024: Negative Urinalysis, 05/25/2024: WBC: 1, urine leukocyte esterase: Negative ABG, 05/25/2024: Metabolic acidosis, hypoxia, 05/26/2024: Metabolic acidosis, hypoxia, 05/27/24: Metabolic acidosis, hypoxia WBC/HB/PLT/MCV, 06/02/2024: 22.4/9/342/89.4 06/09/2024: 19.6/9.4/235/91.6, 06/12/2024: 8.2/9.2/205/90.6 BUN/CR, 05/26/2024: 62/7.01 06/02/2024: 123/6.59, 06/09/2024: 137/6.32, 06/12/2024: 71/4.33 HGB A1c, 05/25/2024: 5.6 Lactic acid, 05/25/2024: 3.6, 4.6, 4.2, 05/26/2024: 3.6 Troponin one high sensitivity, 05/25/2024: 1060, 1354, 1262 TBI/AST/ALT/AP, 05/26/2024: 2/246/167/98, 06/07/2024: 0.9/139/464/93 TG/HDL/LDL/HDL, 05/25/2024: 192/98/40/8 Vitamin B12, 06/02/2024: 836 TSH, 05/25/2024: 0.57 Chest x-ray, 05/25/2024: 1. Distal tip of the endotracheal tube is approximately 5.5 cm above the level of the nik. 2. Poorly visualized enteric tube at its distal aspect. Appears to reach the gastroesophageal junction, although not visualized distal to this point. Correlate with clinical findings. 3. Bilateral airspace opacities and interstitial opacities, may be due to multifocal pneumonia or pulmonary edema in the appropriate clinical setting CT head, 05/25/2024: No gross acute intracranial process CT head, 06/02/24: 1. Interval development of 2 foci of subcortical parenchymal hemorrhage in the left frontal lobe. No mass effect or midline shift. 2. Moderate amount of fluid in the posterior nasopharynx likely related to intubation. Recommend suctioning to prevent aspiration. 3. Small bilateral mastoid effusions. We are in the process of reaching out to the nurse or physician in charge of the patient to convey the findings. CT head, 06/04/2024: Redemonstrated are 2 hyperdense foci in the subcortical left frontal lobe which may represent small foci of parenchymal hemorrhage. There is no significant surrounding edema or associated mass effect CT head, 06/06/2024: The 2 foci of left frontal subcortical hemorrhage are less conspicuous in the current exam partially resolved. No new foci of hemorrhage vital signs Vital Sign Date Time Temp Pulse Resp B/P (MAP) Pulse Ox O2 Delivery O2 Flow Rate FiO2 06/14/24 08:00 30 06/14/24 08:00 86 06/14/24 06:45 22 167/72 (103) 99 06/14/24 04:00 98.3 98.3 06/13/24 20:00 Mechanical Ventilator+ Total Intake and Output 06/13/24 06/13/24 06/14/24 15:00 23:00 07:00 Intake Total 965.89 ml 810.0 ml 1191.0 ml Output Total 1300 ml 1300 ml Balance 965.89 ml -490.0 ml -109.0 ml medications Current Medications Medications Dose Ordered Sig/Yousif Route Start Time Stop Time Status Last Admin Dose Admin Midazolam HCl 50 ml @ 1 mls/hr Q24H IV 05/25/24 06:30 05/29/24 09:11 5 MLS/HR Atorvastatin Calcium 40 mg HS NG 05/25/24 22:00 06/13/24 22:48 40 MG Ondansetron HCl 4 mg Q4HP PRN IV 05/25/24 10:45 Nitroglycerin 0.4 mg Q5MINP PRN SL 05/25/24 10:45 Albuterol 2.5 mg Q4HR NEB 05/25/24 14:00 06/14/24 02:07 2.5 MG Ipratropium Roy 0.5 mg Q4HR NEB 05/25/24 14:00 06/14/24 02:07 0.5 MG Fentanyl Citrate 250 ml @ 2.5 mls/hr Q24H IV 05/25/24 19:30 06/14/24 05:36 20 MLS/HR Ibuprofen 400 mg Q4HP PRN GT 05/26/24 01:15 05/26/24 01:42 400 MG Cefepime HCl 0.5 gm/Dextrose 50 ml @ 12.5 mls/hr Q24H IV 05/29/24 18:00 06/13/24 17:59 12.5 MLS/HR Enteral Nutritional Formula 1,000 ml 30ML/HR GT 05/29/24 09:45 06/13/24 20:00 1,000 ML Dexmedetomidine HCl 400 mcg/ Dextrose 100 ml @ 8.18 mls/hr [id number] IV 05/29/24 14:15 06/13/24 04:58 8.18 MLS/HR Hydralazine HCl 10 mg Q6HP PRN IV 05/29/24 16:30 06/13/24 20:02 10 MG Pantoprazole Sodium 40 mg DAILY IV 05/30/24 10:00 06/13/24 09:34 40 MG Bumetanide 2 mg BIDD IV 05/30/24 18:00 06/14/24 05:44 2 MG Calcium Acetate 1,334 mg Q8HR GT 06/02/24 14:00 06/14/24 05:44 1,334 MG Micafungin Sodium 100 mg/Sodium Chloride 100 ml @ 100 mls/hr DAILY IV 06/09/24 10:00 06/13/24 09:36 100 MLS/HR Aspirin 81 mg DAILY PO 06/10/24 10:00 06/14/24 09:28 81 MG Acetylcysteine 100 mg Q8HR NEB 06/09/24 22:00 06/13/24 18:16 100 MG Doxycycline Hyclate 100 ml @ 50 mls/hr Q12H IV 06/12/24 00:00 06/14/24 00:00 50 MLS/HR Nicardipine HCl 50 mg/Sodium Chloride 250 ml @ 25 mls/hr Q10H IV 06/12/24 13:45 06/13/24 21:00 37.5 MLS/HR Carvedilol 25 mg Q12HR PO 06/13/24 22:00 06/13/24 22:47 25 MG Hydralazine HCl 50 mg Q8HR PO 06/14/24 14:00 objective The patient is well-nourished and well-developed with no distress. The patient is intubated MENTAL STATUS: Subjective CRANIAL NERVES: Pupils are round and reactive, with a left-sided slightly bigger. There are spontaneous conjugated eye movement. No signs of facial weakness. There are gagging or coughing reflexes. No abnormal vascular dilatation and skin secretion SENSATION: Okay to strong painful stimuli MOTOR: Normal tone in the upper and lower extremity. Normal muscle bulk. No fasciculations. No spontaneous movement REFLEXES: Deep tendon reflexes are symmetrical. No pathological reflexes. CEREBELLAR/COORDINATION: Deferred GAIT/STATION: deferred. laboratory and microbiology Laboratory Tests 06/14/24 03:35 Test 06/14/24 03:35 Range/Units Serum Glucose 103 74-106 mg/dL Problem List Altered mental status/Coma Hypoxic encephalopathy secondary to respiratory failure Metabolic encephalopathy secondary to acidosis, sepsis, septic shock, kidney failure Heart attack Pneumonia Sepsis, septic shock Acute on chronic kidney failure Acute petechial hemorrhage in the left frontal lobe, improving on follow-up CT Anisocoria, uncertain clinical significance Assessment/Plan Monitoring Supportive treatment ICU care Follow-up labs EEG Stabilize vitals Respiratory support/vent management Oxygen IV antibiotics GI prophylaxis/Protonix DVT prophylaxis/heparin Nephrology on case Pulmonology on case More recommendation per clinical course This medical document was created using an electronic medical record system with [employer] system. Although this document has been carefully reviewed, there may still be some phonetic and typographical errors. These areas are purely typographical due to imperfections of the software programs, and do not reflect any compromise in the patient's medical care Prognosis guarded Dietary Evaluation Review Comments: 1) If GI is accessible consider Jevity 1.2 @ 70ml/hr x 24hr continuous feed goal rate as tolerated 2) If pt remains NPO >7 days consider TPN to meet at least 75% of estimated needs 3) Advance pt diet when medically feasible to a 2gm Sodium diet modified per CASUALTY CLAIM ADJUSTER recommendations 4) Continue current plan of care Expected Outcomes/Goals: 1) Pt to receive nutrition support within 7 days of NPO status 2) Pt diet to advance 3) F/U in 2-3 days Plan discussed with: Other PILAR HOOD MD Jun 14, 2024 10:32
--- NOTE | 2024-06-14 12:04 | DVHPN2 ---
Progress Note Date Seen: Jun 14, 2024 Medical Necessity Reason Pt with a Central, PICC or Fol: Yes The following are medically ne: Central Line, Putnam Catheter Reason for putnam catheter: Strict I&O Subjective Review of Systems: CVS:Abnormal, RESPIRATORY:Abnormal, GI:Abnormal Objective vital signs Vital Sign Date Time Temp Pulse Resp B/P (MAP) Pulse Ox O2 Delivery O2 Flow Rate FiO2 06/14/24 11:30 95 19 179/77 (111) 97 150/60 (90) 06/14/24 11:05 30 06/14/24 08:00 Mechanical Ventilator+ 06/14/24 08:00 98.5 98.5 Total Intake and Output 06/13/24 06/13/24 06/14/24 15:00 23:00 07:00 Intake Total 965.89 ml 810.0 ml 1191.0 ml Output Total 1300 ml 1300 ml Balance 965.89 ml -490.0 ml -109.0 ml medications Current Medications Medications Dose Ordered Sig/Yousif Route Start Time Stop Time Status Last Admin Dose Admin Midazolam HCl 50 ml @ 1 mls/hr Q24H IV 05/25/24 06:30 05/29/24 09:11 5 MLS/HR Atorvastatin Calcium 40 mg HS NG 05/25/24 22:00 06/13/24 22:48 40 MG Ondansetron HCl 4 mg Q4HP PRN IV 05/25/24 10:45 Nitroglycerin 0.4 mg Q5MINP PRN SL 05/25/24 10:45 Albuterol 2.5 mg Q4HR NEB 05/25/24 14:00 06/14/24 10:46 2.5 MG Ipratropium Oliver 0.5 mg Q4HR NEB 05/25/24 14:00 06/14/24 10:46 0.5 MG Fentanyl Citrate 250 ml @ 2.5 mls/hr Q24H IV 05/25/24 19:30 06/14/24 05:36 20 MLS/HR Ibuprofen 400 mg Q4HP PRN GT 05/26/24 01:15 05/26/24 01:42 400 MG Cefepime HCl 0.5 gm/Dextrose 50 ml @ 12.5 mls/hr Q24H IV 05/29/24 18:00 06/13/24 17:59 12.5 MLS/HR Enteral Nutritional Formula 1,000 ml 30ML/HR GT 05/29/24 09:45 06/13/24 20:00 1,000 ML Dexmedetomidine HCl 400 mcg/ Dextrose 100 ml @ 8.18 mls/hr [id number] IV 05/29/24 14:15 06/13/24 04:58 8.18 MLS/HR Hydralazine HCl 10 mg Q6HP PRN IV 05/29/24 16:30 06/13/24 20:02 10 MG Pantoprazole Sodium 40 mg DAILY IV 05/30/24 10:00 06/13/24 09:34 40 MG Bumetanide 2 mg BIDD IV 05/30/24 18:00 06/14/24 05:44 2 MG Calcium Acetate 1,334 mg Q8HR GT 06/02/24 14:00 06/14/24 05:44 1,334 MG Micafungin Sodium 100 mg/Sodium Chloride 100 ml @ 100 mls/hr DAILY IV 06/09/24 10:00 06/13/24 09:36 100 MLS/HR Aspirin 81 mg DAILY PO 06/10/24 10:00 06/14/24 09:28 81 MG Acetylcysteine 100 mg Q8HR NEB 06/09/24 22:00 06/14/24 10:46 100 MG Doxycycline Hyclate 100 ml @ 50 mls/hr Q12H IV 06/12/24 00:00 06/14/24 00:00 50 MLS/HR Nicardipine HCl 50 mg/Sodium Chloride 250 ml @ 25 mls/hr Q10H IV 06/12/24 13:45 06/14/24 11:16 75 MLS/HR Carvedilol 25 mg Q12HR PO 06/13/24 22:00 06/13/24 22:47 25 MG Hydralazine HCl 50 mg Q8HR PO 06/14/24 14:00 Examination: GENERAL:Abnormal, CVS:Abnormal, ABDOMEN:Abnormal, SKIN:Abnormal laboratory and microbiology Laboratory Tests 06/14/24 03:35 Test 06/14/24 03:35 Range/Units Serum Glucose 103 74-106 mg/dL Microbiology Date/Time Source Procedure Growth Status 06/09/24 17:21 Urine - Putnam Port Urine Culture - Final Complete 06/07/24 10:50 Blood Blood Culture - Final NO GROWTH AFTER 5 DAYS OF INCUBATION. Complete 05/27/24 08:50 Nose MRSA Screen - Final Complete 05/25/24 06:50 Sputum Gram Stain - Final Complete 05/25/24 06:50 Respiratory Culture - Final Presumptive Tara albicans Complete Problem List/Assessment/Plan Problem List/Assessment/Plan Acute kidney injury likely ATN on acute dialysis Unknown baseline septic shock Gram + bacteremia Morbid obesity Strept PNA Ventilator-dependent hypoxic respiratory failure HD treatment BP regime increase oral meds. po hydralazine, coreg, add norvasc po . taper off drip increase UOP continue diuretics fluid removal as tolerated monitor fluid balances and ABX Plan discussed with: Other Dietary Evaluation Review Comments: 1) If GI is accessible consider Jevity 1.2 @ 70ml/hr x 24hr continuous feed goal rate as tolerated 2) If pt remains NPO >7 days consider TPN to meet at least 75% of estimated needs 3) Advance pt diet when medically feasible to a 2gm Sodium diet modified per INGOT HEADER recommendations 4) Continue current plan of care Expected Outcomes/Goals: 1) Pt to receive nutrition support within 7 days of NPO status 2) Pt diet to advance 3) F/U in 2-3 days TOMY VALVERDE MD Jun 14, 2024 12:04
--- NOTE | 2024-06-14 13:12 | DVHPN2 ---
Consult Progress Note Date Seen: Jun 14, 2024 Subjective Other Systems: Notified of hypertensive events Objective vital signs Vital Sign Date Time Temp Pulse Resp B/P (MAP) Pulse Ox O2 Delivery O2 Flow Rate FiO2 06/14/24 12:45 93 19 157/70 (99) 97 132/58 (82) 06/14/24 12:00 30 06/14/24 08:00 Mechanical Ventilator+ 06/14/24 08:00 98.5 98.5 Total Intake and Output 06/13/24 06/13/24 06/14/24 15:00 23:00 07:00 Intake Total 965.89 ml 810.0 ml 1223.5 ml Output Total 1300 ml 1300 ml Balance 965.89 ml -490.0 ml -76.5 ml medications Current Medications Medications Dose Ordered Sig/Yousif Route Start Time Stop Time Status Last Admin Dose Admin Midazolam HCl 50 ml @ 1 mls/hr Q24H IV 05/25/24 06:30 05/29/24 09:11 5 MLS/HR Atorvastatin Calcium 40 mg HS NG 05/25/24 22:00 06/13/24 22:48 40 MG Ondansetron HCl 4 mg Q4HP PRN IV 05/25/24 10:45 Nitroglycerin 0.4 mg Q5MINP PRN SL 05/25/24 10:45 Albuterol 2.5 mg Q4HR NEB 05/25/24 14:00 06/14/24 10:46 2.5 MG Ipratropium Solano 0.5 mg Q4HR NEB 05/25/24 14:00 06/14/24 10:46 0.5 MG Fentanyl Citrate 250 ml @ 2.5 mls/hr Q24H IV 05/25/24 19:30 06/14/24 05:36 20 MLS/HR Ibuprofen 400 mg Q4HP PRN GT 05/26/24 01:15 05/26/24 01:42 400 MG Cefepime HCl 0.5 gm/Dextrose 50 ml @ 12.5 mls/hr Q24H IV 05/29/24 18:00 06/13/24 17:59 12.5 MLS/HR Enteral Nutritional Formula 1,000 ml 30ML/HR GT 05/29/24 09:45 06/13/24 20:00 1,000 ML Dexmedetomidine HCl 400 mcg/ Dextrose 100 ml @ 8.18 mls/hr [id number] IV 05/29/24 14:15 06/13/24 04:58 8.18 MLS/HR Hydralazine HCl 10 mg Q6HP PRN IV 05/29/24 16:30 06/13/24 20:02 10 MG Pantoprazole Sodium 40 mg DAILY IV 05/30/24 10:00 06/13/24 09:34 40 MG Bumetanide 2 mg BIDD IV 05/30/24 18:00 06/14/24 05:44 2 MG Calcium Acetate 1,334 mg Q8HR GT 06/02/24 14:00 06/14/24 05:44 1,334 MG Micafungin Sodium 100 mg/Sodium Chloride 100 ml @ 100 mls/hr DAILY IV 06/09/24 10:00 06/13/24 09:36 100 MLS/HR Aspirin 81 mg DAILY PO 06/10/24 10:00 06/14/24 09:28 81 MG Acetylcysteine 100 mg Q8HR NEB 06/09/24 22:00 06/14/24 10:46 100 MG Doxycycline Hyclate 100 ml @ 50 mls/hr Q12H IV 06/12/24 00:00 06/14/24 00:00 50 MLS/HR Nicardipine HCl 50 mg/Sodium Chloride 250 ml @ 25 mls/hr Q10H IV 06/12/24 13:45 06/14/24 11:16 75 MLS/HR Carvedilol 25 mg Q12HR PO 06/13/24 22:00 06/13/24 22:47 25 MG Hydralazine HCl 50 mg Q8HR PO 06/14/24 14:00 Examination: GENERAL:Abnormal, LUNGS:Abnormal (Mechanically ventilated 30% FiO2), CVS:Abnormal (Sinus tachycardia 100s bpm. SBP >200 mmHg. On nicardipine), NEURO:Abnormal (Chemically sedated) laboratory and microbiology Laboratory Tests 06/14/24 03:35 Test 06/14/24 03:35 Range/Units Serum Glucose 103 74-106 mg/dL Problem List/Assessment/Plan Problem List/Assessment/Plan Septic shock Acute on chronic HFrEF, NYHA class IV, newly diagnosed Acute hypoxic respiratory failure NSTEMI, questionable Type I Mitral valve regurgitation, mild degree Hypertensive urgency Subcortical parenchymal hemorrhage Acute kidney injury on HD Morbidly obese Plan/Recommendation (Dr. Solo) * Echocardiogram revealed EF 40% with severe concentric LVH * Nicardipine drip for hypertensive crisis (suspected for brain injury induced HTN) * GDMT for CHF as renal function permits. Currently on Coreg * Lipid-lowering agent. Reinitiate single antiplatelet therapy * ASA therapy cleared by neurology team * Cardiac surveillance: Monitor and notify for any ECG changes * Nephrology/Neurology recommendations * DVT/VTE prophylaxis: SCDs * Repeat head CT We will further consider ischemic work-up once patient's neurological status is determined to be intact. Please notify Cardiology once neurological status has improved. We will sign off at this time. Thank you for allowing us to care for this patient. Please call with any questions or concerns. Critical care time spent: 30 minutes. This medical document was created using an electronic medical record system with voice recognition software and computerized dictation system. Although this document has been carefully reviewed, there might still be some phonetic and typographical errors. Occasional wrong-word or ``sound-alike substitutions may have occurred due to the inherent limitations of voice recognition software. These areas are purely typographical due to imperfections of the software programs and do not reflect any compromise in the patient's medical care. Please read the chart carefully and recognize, using context, where these substitutions have occurred. Plan discussed with: Other Dietary Evaluation Review Comments: 1) If GI is accessible consider Jevity 1.2 @ 70ml/hr x 24hr continuous feed goal rate as tolerated 2) If pt remains NPO >7 days consider TPN to meet at least 75% of estimated needs 3) Advance pt diet when medically feasible to a 2gm Sodium diet modified per AMBULANCE ATTENDANT recommendations 4) Continue current plan of care Expected Outcomes/Goals: 1) Pt to receive nutrition support within 7 days of NPO status 2) Pt diet to advance 3) F/U in 2-3 days Date of Service: Jun 14, 2024 Billing Provider: SARAH MONCADA Cardiology Common Codes: 84413-DHTCQWYH CARE 30-74 MIN SARAH MONCADA Jun 14, 2024 13:12
[2024-06-14] MEDS: hydrALAZINE HCL 25 MG TAB PO SCH (14:00)
[2024-06-14] MEDS: DOXYCYCLINE 100MG/100ML 100 ML IV SCH (20:00)
[2024-06-14] MEDS: MICAFUNGIN SODIUM 100 MG in SODIUM CHL 0.9% 100 ML IV SCH (21:11)
[2024-06-14] MEDS: EPOETIN ALFA-EPBX 10,000 UNIT/1ML VIAL SC ONE (21:12)
[2024-06-14] MEDS: amLODIPine BESYLATE 5 MG TAB GT SCH (23:01)
--- NOTE | 2024-06-14 23:40 | DVHPN2 ---
Progress Note - Dictate Date Seen: Jun 14, 2024 Medical Necessity Reason Pt with a Central, PICC or Fol: Yes The following are medically ne: Central Line, Putnam Catheter Reason for putnam catheter: Strict I&O Subjective Patient seen and examined at bedside. intubated on mechanical ventilator. Overnight events reviewed. vital signs Vital Sign Date Time Temp Pulse Resp B/P (MAP) Pulse Ox O2 Delivery O2 Flow Rate FiO2 06/14/24 23:23 81 110/49 06/14/24 23:00 22 97 06/14/24 22:35 30 06/14/24 20:45 98.2 98.2 06/14/24 20:00 Mechanical Ventilator+ Total Intake and Output 06/13/24 06/13/24 06/14/24 15:00 23:00 07:00 Intake Total 965.89 ml 810.0 ml 1223.5 ml Output Total 1300 ml 1300 ml Balance 965.89 ml -490.0 ml -76.5 ml medications Current Medications Medications Dose Ordered Sig/Yousif Route Start Time Stop Time Status Last Admin Dose Admin Midazolam HCl 50 ml @ 1 mls/hr Q24H IV 05/25/24 06:30 05/29/24 09:11 5 MLS/HR Atorvastatin Calcium 40 mg HS NG 05/25/24 22:00 06/14/24 21:13 40 MG Ondansetron HCl 4 mg Q4HP PRN IV 05/25/24 10:45 Nitroglycerin 0.4 mg Q5MINP PRN SL 05/25/24 10:45 Albuterol 2.5 mg Q4HR NEB 05/25/24 14:00 06/14/24 22:31 2.5 MG Ipratropium Kent 0.5 mg Q4HR NEB 05/25/24 14:00 06/14/24 22:31 0.5 MG Fentanyl Citrate 250 ml @ 2.5 mls/hr Q24H IV 05/25/24 19:30 06/14/24 05:36 20 MLS/HR Ibuprofen 400 mg Q4HP PRN GT 05/26/24 01:15 05/26/24 01:42 400 MG Cefepime HCl 0.5 gm/Dextrose 50 ml @ 12.5 mls/hr Q24H IV 05/29/24 18:00 06/14/24 19:21 12.5 MLS/HR Enteral Nutritional Formula 1,000 ml 30ML/HR GT 05/29/24 09:45 06/13/24 20:00 1,000 ML Dexmedetomidine HCl 400 mcg/ Dextrose 100 ml @ 8.18 mls/hr [id number] IV 05/29/24 14:15 06/13/24 04:58 8.18 MLS/HR Hydralazine HCl 10 mg Q6HP PRN IV 05/29/24 16:30 06/13/24 20:02 10 MG Pantoprazole Sodium 40 mg DAILY IV 05/30/24 10:00 06/14/24 10:00 40 MG Bumetanide 2 mg BIDD IV 05/30/24 18:00 06/14/24 19:18 2 MG Calcium Acetate 1,334 mg Q8HR GT 06/02/24 14:00 06/14/24 21:12 1,334 MG Aspirin 81 mg DAILY PO 06/10/24 10:00 06/14/24 09:28 81 MG Acetylcysteine 100 mg Q8HR NEB 06/09/24 22:00 06/14/24 18:58 100 MG Nicardipine HCl 50 mg/Sodium Chloride 250 ml @ 25 mls/hr Q10H IV 06/12/24 13:45 06/14/24 23:23 12.5 MLS/HR Carvedilol 25 mg Q12HR PO 06/13/24 22:00 06/14/24 21:14 25 MG Hydralazine HCl 50 mg Q8HR PO 06/14/24 14:00 06/14/24 21:13 50 MG Doxycycline Hyclate 100 ml @ 50 mls/hr Q12HR@0800,2000 IV 06/14/24 20:00 06/14/24 20:00 50 MLS/HR Micafungin Sodium 100 mg/Sodium Chloride 100 ml @ 100 mls/hr DAILY@2100 IV 06/14/24 21:00 06/14/24 21:11 100 MLS/HR Amlodipine Besylate 10 mg DAILY GT 06/14/24 20:00 objective Gen.: Patient lying in bed in medical ICU. Intubated on mechanical ventilator. Head: Normocephalic, atraumatic. Eyes: PERRLA. Ears: Normal external anatomy. Throat: Endotracheal tube and orogastric tube in place. Neck: Supple, trachea midline. Chest: Transmitted breath sounds bilaterally. Decreased air entry bilaterally. No wheezing. Bibasilar crackles. Cardiovascular: Positive S1, positive S2. Regular rate and rhythm. Abdomen: Positive bowel sounds in all 4 quadrants. Soft, nontender, nondistended. : Putnam in place. Normal external genitalia. Rectal: Deferred. Skin: Warm, dry. Intact. Extremities: 2+ radial pulses bilaterally. No lower extremity edema. Neuro: Off sedation laboratory and microbiology Laboratory Tests 06/14/24 03:35 Test 06/14/24 03:35 Range/Units Serum Glucose 103 74-106 mg/dL Assessment/Plan Impression: Acute hypoxic respiratory failure On mechanical ventilator Septic shock Elevated troponin Acute kidney injury Lactic acidosis Metabolic acidosis Multifocal pneumonia, likely gram negative Pulmonary edema AE COPD Events: On vent support On AC mode; RR 22 -->12, VT 600, PEEP 8, FiO2 30% Nicardipine drip for BP control On Coreg Fentanyl for analgesia ABG reviewed, alkalemia CXR demonstrates diffuse multifocal consolidative opacities. Devices in place. Continue antibiotics Tube feeds for nutritional support Wound care Monitor hemoglobin Monitor renal function Hemodialysis per Nephrology Nephrology recs appreciated. Echo showed EF of 40%. Neurology recommendations appreciated. SBT/KAREN Patient opens eyes, not following commands. Awaiting for mentation to improve. Poor prognosis Consider trach/PEG for liberation from vent if family wishes for aggressive care. CT head on 06/06/24 revealed the two foci of left frontal subcortical hemorrhage are less conspicuous - partially resolved. No new foci of hemorrhage. Neurology recs appreciated. Labs and imaging reviewed. Rest of plan as noted below. Plan: s/p intubation on mechanical ventilator. On AC mode; RR 12, VT 600, PEEP 8, FiO2 30% Titrate FIO2 to keep O2 saturation above 90%. VAP bundle. Daily ABG and CXR while intubated Off sedation Off pressors, hemodynamically stable. Continue bronchodilators. Continue antibiotics. F/u cultures. Pressors if necessary to maintain a mean arterial blood pressure greater than 65 mmHg. Cardiology recs appreciated. Monitor renal function Monitor electrolytes. Supplement as necessary. Monitor ins and outs. Nephrology recs appreciated. IV fluid hydration GI prophylaxis. DVT prophylaxis. Prognosis: Poor given patient's multiple co-morbidities. Condition: Critical Rest of plan per hospitalist and other consultants. A total of 35 minutes of critical care time was spent reviewing the patient record, examining the patient, making a diagnostic and therapeutic plan, discussing this plan with the medical personnel, following up on diagnostic studies and following the patient for clinical stability excluding any and all procedures. At least 50% of this time was spent in direct, [id number] contact. Thank you, GRANT ADMINISTRATOR Viral, for allowing me to participate in this patient's care. Further recommendations will depend on the patient's clinical course. Please do not hesitate to contact me if you have any questions or concerns. This medical document was created using an electronic medical record system with [employer] dictation system. Although these documentations are being carefully reviewed, there may still be some phonetic and typographical changes. The errors are purely typographical, due to imperfection on the software program, and do not reflect any compromise in the patient's medical care. Dietary Evaluation Review Comments: 1) If GI is accessible consider Jevity 1.2 @ 70ml/hr x 24hr continuous feed goal rate as tolerated 2) If pt remains NPO >7 days consider TPN to meet at least 75% of estimated needs 3) Advance pt diet when medically feasible to a 2gm Sodium diet modified per RESEARCH AND DEVELOPMENT TESTER recommendations 4) Continue current plan of care Expected Outcomes/Goals: 1) Pt to receive nutrition support within 7 days of NPO status 2) Pt diet to advance 3) F/U in 2-3 days Plan discussed with: Other (LUZMARIA Toth) Critical Care Time(min): 35 MELODY ELIZABETH MD Jun 14, 2024 23:40
[2024-06-15] VITALS (101 sets, daily range): BP systolic 83–176; BP diastolic 45–117; PULSE 71–98; RESP 11–45; TEMP 98.6–99.3; O2SAT 9–100
--- NOTE | 2024-06-15 04:35 | DVH ---
EXAM: XY CHEST PORTABLE Indication: INTUBATED Technique: Single frontal view of the chest was obtained Comparison: XY CHEST XRAY 1 VIEW on DOS: 06/14/24, XY CHEST XRAY 1 VIEW on DOS: 06/13/24, XY CHEST XRAY 1 VIEW on DOS: 06/12/24, XY CHEST PORTABLE on DOS: 06/11/24, XY CHEST PORTABLE on DOS: 06/10/24, XY SEGUNDO ST XRAY 1 VIEW on DOS: 06/14/24 FINDINGS: Lines and Tubes: Endotracheal tube, enteric tube, left internal jugular central venous catheter tip a re unchanged. Lungs: Diffuse multifocal consolidative opacities. Pleura: No effusion. Left costophrenic angles collimated from field of view. No pneumothorax. Cardiomediastinal contours: Cardiomegaly. Bones: No acute osseous abnormality. IMPRESSION: No significant change compared to prior exam allowing for differences technique.
--- NOTE | 2024-06-15 09:25 | DVHPN2 ---
Subjective Patient was encephalopathic, but opening eyes. Reviewed: Care Plan, H&P, Labs, Medications, Previous Orders, Radiology, Other Changes from previous H/P or p: No Changes General: Per HPI Objective Vitals Vital Signs Date Time Temp Pulse Resp B/P (MAP) Pulse Ox O2 Delivery O2 Flow Rate FiO2 06/15/24 08:09 86 22 117/52 (73) 98 30 06/15/24 04:00 98.6 98.6 06/14/24 20:00 Mechanical Ventilator+ Intake/Output Intake and Output 06/15/24 07:00 Intake Total 1717.5 ml Output Total 2100 ml Balance -382.5 ml Intake Oral 120 ml IV Total 1447.5 ml Tube Feeding 150 ml Output Urine Total 2100 ml General Appearance: Other HEENT: Atraumatic, Other Lungs: Other Cardiovascular: Normal S1, Normal S2, Other Abdomen: Normal bowel sounds, Soft Genitourinary: Other Neuro: Other Skin: Dry, Intact Psych/Mental Status: Other Medications Current Medications Medications Dose Ordered Sig/Yousif Route Start Time Stop Time Status Last Admin Dose Admin Midazolam HCl 50 ml @ 1 mls/hr Q24H IV 05/25/24 06:30 05/29/24 09:11 5 MLS/HR Atorvastatin Calcium 40 mg HS NG 05/25/24 22:00 06/14/24 21:13 40 MG Ondansetron HCl 4 mg Q4HP PRN IV 05/25/24 10:45 Nitroglycerin 0.4 mg Q5MINP PRN SL 05/25/24 10:45 Albuterol 2.5 mg Q4HR NEB 05/25/24 14:00 06/15/24 06:32 2.5 MG Ipratropium [place] 0.5 mg Q4HR NEB 05/25/24 14:00 06/15/24 06:32 0.5 MG Fentanyl Citrate 250 ml @ 2.5 mls/hr Q24H IV 05/25/24 19:30 06/14/24 05:36 20 MLS/HR Ibuprofen 400 mg Q4HP PRN GT 05/26/24 01:15 05/26/24 01:42 400 MG Cefepime HCl 0.5 gm/Dextrose 50 ml @ 12.5 mls/hr Q24H IV 05/29/24 18:00 06/14/24 19:21 12.5 MLS/HR Enteral Nutritional Formula 1,000 ml 30ML/HR GT 05/29/24 09:45 06/13/24 20:00 1,000 ML Hydralazine HCl 10 mg Q6HP PRN IV 05/29/24 16:30 06/13/24 20:02 10 MG Pantoprazole Sodium 40 mg DAILY IV 05/30/24 10:00 06/14/24 10:00 40 MG Bumetanide 2 mg BIDD IV 05/30/24 18:00 06/15/24 05:43 2 MG Calcium Acetate 1,334 mg Q8HR GT 06/02/24 14:00 06/15/24 05:42 1,334 MG Aspirin 81 mg DAILY PO 06/10/24 10:00 06/14/24 09:28 81 MG Acetylcysteine 100 mg Q8HR NEB 06/09/24 22:00 06/15/24 06:32 100 MG Nicardipine HCl 50 mg/Sodium Chloride 250 ml @ 25 mls/hr Q10H IV 06/12/24 13:45 06/14/24 23:23 25 MLS/HR Carvedilol 25 mg Q12HR PO 06/13/24 22:00 06/14/24 21:14 25 MG Hydralazine HCl 50 mg Q8HR PO 06/14/24 14:00 06/15/24 05:43 50 MG Doxycycline Hyclate 100 ml @ 50 mls/hr Q12HR@0800,2000 IV 06/14/24 20:00 06/14/24 20:00 50 MLS/HR Micafungin Sodium 100 mg/Sodium Chloride 100 ml @ 100 mls/hr DAILY@2100 IV 06/14/24 21:00 06/14/24 21:11 100 MLS/HR Amlodipine Besylate 10 mg DAILY GT 06/14/24 20:00 Laboratory Results Laboratory Tests 06/14/24 03:35 Urinalysis Test 05/25/24 08:30 05/28/24 01:30 Urine Color Yellow (Yellow) Urine Clarity Clear (Clear) Urine pH 7.5 (5.0-9.0) Urine Specific [place] 1.013 (1.001-1.035) Urine Protein 2+ (Negative) H Urine Ketones Negative (Negative) Urine Blood Negative /uL (Negative) Urine Nitrite Negative (Negative) Urine Bilirubin Negative (Negative) Urine Urobilinogen 8 mg/dL (Negative) H Urine Leukocyte Esterase Negative /uL (Negative) Urine RBC 5 /hpf (0 - 4) Urine WBC 1 /hpf (0 - 5) Urine Squamous Epithelial Cells Few /hpf (<5) Urine Bacteria None seen /hpf (None Seen) Urine Glucose Normal mg/dL (Normal) Urine Creatinine 248.25 mg/dL (30.0-125.0) H Urine Sodium 27 mmol/L (40-220) L Urine Total Protein 293.2 mg/dL (1-14) H Blood Gas Results Test 06/15/24 06:48 Arterial Blood pH 7.617 (7.350-7.450) FiO2 % 30.0 Microbiology Microbiology Date/Time Source Procedure Growth Status 06/09/24 17:21 Urine - [place] Urine Culture - Final Complete 06/07/24 10:50 Blood Blood Culture - Final NO GROWTH AFTER 5 DAYS OF INCUBATION. Complete 05/27/24 08:50 Nose MRSA Screen - Final Complete 05/25/24 06:50 Sputum Gram Stain - Final Complete 05/25/24 06:50 Respiratory Culture - Final Presumptive Tara albicans Complete Labs and/or images reviewed: Labs reviewed by me, Image(s) reviewed by me Assessment/Plan Assessment/Plan Impression: -severe sepsis with shock , Streptococcus pneumoniae -probable community-acquired pneumonia with Gram-positive cocci -sepsis with Gram-positive cocci -acute hypoxic respiratory failure with mechanical ventilation -obesity -acute kidney injury, anuric -NSTEMI, probably type 2 -hypoalbuminemia -? Angioedema Plan: Events: Patient continues to have difficulty with weaning from ventilator. Neurologically, there are no signs of patient able to follow commands. Long discussion made with Neurology, with patient now pending MRI of the brain. We will hold CPAP trial until further assessment of patient was neurological function. Discussion will be made with the patient's son regarding next step which may include tracheostomy, peg tube placement, LTAC placement. -deescalate antibiotic -bronchodilators -continue cefepime and Diflucan -continue current ventilator settings. Patient now on 30% FiO2 -nephrology consultation: HD -PUD, DVT prophylaxis -repeat labs, chest x-ray, ABG in a.m.. Critical care time spent with patient discussing and formulating plan of care: 90 minutes. This does not include time spent performing procedures. This medical document was created using an electronic medical record system with [employer] dictation system. Although this document has been carefully reviewed, there may still be some phonetic and typographical errors. These areas are purely typographical due to imperfections of the software programs, and do not reflect any compromise in the patient's medical care. Plan discussed with: Patient, Other (RN) My Orders Orders - OMAR PARK NP Procedure Category Date Status Time Ventilator Orders RT 06/14/24 Transmitted 09:46 Hydralazine Hcl PHA 06/14/24 In Process Tablet (Apresoline 14:00 Doxycycline PHA 06/14/24 In Process 100mg/100ml 20:00 Micafungin Sodium PHA 06/14/24 In Process (Mycamine) 21:00 Brain Head Wo Contrast MRI 06/14/24 Logged 19:51 Basic Metabolic Panel LAB 06/15/24 Logged 07:51 Complete Blood Count LAB 06/15/24 Logged 07:51 Nutritional PHA 06/15/24 Verified Supplements (Nepro 09:15 Date of Service: Jun 15, 2024 Billing Provider: OMAR PARK NP Common Visit Codes: [id number] CARE 30-74 MIN OMAR PARK NP Jun 15, 2024 09:25
--- NOTE | 2024-06-15 10:35 | DVHPN2 ---
Progress Note - Dictate Date Seen: Jun 15, 2024 Medical Necessity Reason Pt with a Central, PICC or Fol: Yes The following are medically ne: Central Line, Putnam Catheter Reason for putnam catheter: Strict I&O Subjective Ms. Pandya is a 53 years old right-handed female with a history of morbid obesity, hypertension, the patient was was brought to the [facility] on 05/25/24 with a chief company of altered mental status, respiratory distress. I have seen and examined the patient, I have talked to her nurse. Her eyes are open with conjugated rolling eye movement, but she does not respond to verbal stimuli or follows, pupils are equally round and reactive with conjugated eye movement, no spontaneous extremity movement Fentanyl 100 mcg/hour, Urine culture, 05/25/2024: Negative Blood culture, 05/25/2024: Streptococcus pneumoniae UDS, 05/25/2024: Negative Urinalysis, 05/25/2024: WBC: 1, urine leukocyte esterase: Negative ABG, 05/25/2024: Metabolic acidosis, hypoxia, 05/26/2024: Metabolic acidosis, hypoxia, 05/27/24: Metabolic acidosis, hypoxia WBC/HB/PLT/MCV, 06/02/2024: 22.4/9/342/89.4 06/09/2024: 19.6/9.4/235/91.6, 06/12/2024: 8.2/9.2/205/90.6 BUN/CR, 05/26/2024: 62/7.01 06/02/2024: 123/6.59, 06/09/2024: 137/6.32, 06/12/2024: 71/4.33 HGB A1c, 05/25/2024: 5.6 Lactic acid, 05/25/2024: 3.6, 4.6, 4.2, 05/26/2024: 3.6 Troponin one high sensitivity, 05/25/2024: 1060, 1354, 1262 TBI/AST/ALT/AP, 05/26/2024: 2/246/167/98, 06/07/2024: 0.9/139/464/93 TG/HDL/LDL/HDL, 05/25/2024: 192/98/40/8 Vitamin B12, 06/02/2024: 836 TSH, 05/25/2024: 0.57 Chest x-ray, 05/25/2024: 1. Distal tip of the endotracheal tube is approximately 5.5 cm above the level of the nik. 2. Poorly visualized enteric tube at its distal aspect. Appears to reach the gastroesophageal junction, although not visualized distal to this point. Correlate with clinical findings. 3. Bilateral airspace opacities and interstitial opacities, may be due to multifocal pneumonia or pulmonary edema in the appropriate clinical setting CT head, 05/25/2024: No gross acute intracranial process CT head, 06/02/24: 1. Interval development of 2 foci of subcortical parenchymal hemorrhage in the left frontal lobe. No mass effect or midline shift. 2. Moderate amount of fluid in the posterior nasopharynx likely related to intubation. Recommend suctioning to prevent aspiration. 3. Small bilateral mastoid effusions. We are in the process of reaching out to the nurse or physician in charge of the patient to convey the findings. CT head, 06/04/2024: Redemonstrated are 2 hyperdense foci in the subcortical left frontal lobe which may represent small foci of parenchymal hemorrhage. There is no significant surrounding edema or associated mass effect CT head, 06/06/2024: The 2 foci of left frontal subcortical hemorrhage are less conspicuous in the current exam partially resolved. No new foci of hemorrhage vital signs Vital Sign Date Time Temp Pulse Resp B/P (MAP) Pulse Ox O2 Delivery O2 Flow Rate FiO2 06/15/24 09:48 94 22 135/60 (85) 98 30 06/15/24 04:00 98.6 98.6 06/14/24 20:00 Mechanical Ventilator+ Total Intake and Output 06/14/24 06/14/24 06/15/24 15:00 23:00 07:00 Intake Total 615.0 ml 572.5 ml 530.0 ml Output Total 1700 ml 400 ml Balance 615.0 ml -1127.5 ml 130.0 ml medications Current Medications Medications Dose Ordered Sig/Yousif Route Start Time Stop Time Status Last Admin Dose Admin Midazolam HCl 50 ml @ 1 mls/hr Q24H IV 05/25/24 06:30 05/29/24 09:11 5 MLS/HR Atorvastatin Calcium 40 mg HS NG 05/25/24 22:00 06/14/24 21:13 40 MG Ondansetron HCl 4 mg Q4HP PRN IV 05/25/24 10:45 Nitroglycerin 0.4 mg Q5MINP PRN SL 05/25/24 10:45 Albuterol 2.5 mg Q4HR NEB 05/25/24 14:00 06/15/24 09:48 2.5 MG Ipratropium [place] 0.5 mg Q4HR NEB 05/25/24 14:00 06/15/24 09:48 0.5 MG Fentanyl Citrate 250 ml @ 2.5 mls/hr Q24H IV 05/25/24 19:30 06/14/24 05:36 20 MLS/HR Ibuprofen 400 mg Q4HP PRN GT 05/26/24 01:15 05/26/24 01:42 400 MG Cefepime HCl 0.5 gm/Dextrose 50 ml @ 12.5 mls/hr Q24H IV 05/29/24 18:00 06/14/24 19:21 12.5 MLS/HR Hydralazine HCl 10 mg Q6HP PRN IV 05/29/24 16:30 06/13/24 20:02 10 MG Pantoprazole Sodium 40 mg DAILY IV 05/30/24 10:00 06/14/24 10:00 40 MG Bumetanide 2 mg BIDD IV 05/30/24 18:00 06/15/24 05:43 2 MG Calcium Acetate 1,334 mg Q8HR GT 06/02/24 14:00 06/15/24 05:42 1,334 MG Aspirin 81 mg DAILY PO 06/10/24 10:00 06/14/24 09:28 81 MG Acetylcysteine 100 mg Q8HR NEB 06/09/24 22:00 06/15/24 06:32 100 MG Nicardipine HCl 50 mg/Sodium Chloride 250 ml @ 25 mls/hr Q10H IV 06/12/24 13:45 06/14/24 23:23 25 MLS/HR Carvedilol 25 mg Q12HR PO 06/13/24 22:00 06/14/24 21:14 25 MG Hydralazine HCl 50 mg Q8HR PO 06/14/24 14:00 06/15/24 05:43 50 MG Micafungin Sodium 100 mg/Sodium Chloride 100 ml @ 100 mls/hr DAILY@2100 IV 06/14/24 21:00 06/14/24 21:11 100 MLS/HR Amlodipine Besylate 10 mg DAILY GT 06/14/24 20:00 Enteral Nutritional Formula 1,000 ml 40ML/HR GT 06/15/24 09:15 objective The patient is well-nourished and well-developed with no distress. The patient is intubated MENTAL STATUS: Subjective CRANIAL NERVES: Pupils are round and reactive, with a left-sided slightly bigger. There are spontaneous conjugated eye movement. No signs of facial weakness. There are gagging or coughing reflexes. SENSATION: Okay to strong painful stimuli MOTOR: Normal tone in the upper and lower extremity. Normal muscle bulk. No fasciculations. No spontaneous movement REFLEXES: Deep tendon reflexes are symmetrical. No pathological reflexes. CEREBELLAR/COORDINATION: Deferred GAIT/STATION: deferred. laboratory and microbiology Laboratory Tests 06/14/24 03:35 Test 06/14/24 03:35 Range/Units Serum Glucose 103 74-106 mg/dL Problem List Altered mental status/Coma Hypoxic encephalopathy secondary to respiratory failure Metabolic encephalopathy secondary to acidosis, sepsis, septic shock, kidney failure Heart attack Pneumonia Sepsis, septic shock Acute on chronic kidney failure Acute petechial hemorrhage in the left frontal lobe, improving on follow-up CT Anisoc[place], uncertain clinical significance Assessment/Plan Monitoring Supportive treatment ICU care Follow-up labs EEG MRI head Stabilize vitals Respiratory support/vent management Oxygen IV antibiotics GI prophylaxis/Protonix DVT prophylaxis/heparin Nephrology on case Pulmonology on case More recommendation per clinical course This medical document was created using an electronic medical record system with [employer] dictation system. Although this document has been carefully reviewed, there may still be some phonetic and typographical errors. These areas are purely typographical due to imperfections of the software programs, and do not reflect any compromise in the patient's medical care Prognosis poor Dietary Evaluation Review Comments: 1) If GI is accessible consider Jevity 1.2 @ 70ml/hr x 24hr continuous feed goal rate as tolerated 2) If pt remains NPO >7 days consider TPN to meet at least 75% of estimated needs 3) Advance pt diet when medically feasible to a 2gm Sodium diet modified per [employer] recommendations 4) Continue current plan of care Expected Outcomes/Goals: 1) Pt to receive nutrition support within 7 days of NPO status 2) Pt diet to advance 3) F/U in 2-3 days Plan discussed with: Other PILAR HOOD MD Jun 15, 2024 10:35
--- NOTE | 2024-06-15 11:13 | DVH ---
PROCEDURE: MRI BRAIN HEAD WO CONTRAST INDICATION: cva EXAM DATE: 06/15/2024 10:13 AM COMPARISON: None TECHNIQUE: MRI of the brain without intravenous contrast. FINDINGS: On diffusion-weighted images there is extensive abnormal signal throughout the deep white matter bila terally most of which does not correspond to low signal on ADC and likely represents T2 shine through . There is at least 1 focus in the right periventricular region which does correspond to low ADC sign al likely representing subacute ischemia. There is no evidence of acute intracranial hemorrhage, extra-axial collection, mass effect, midline s hift, herniation or hydrocephalus. The ventricles, sulci and cisterns appear age appropriate. Extensive periventricular and deep white matter signal abnormality. Small focus of blooming artifact in the left parietal region. The major vascular flow voids are present. Opacification of the bilateral mastoid air cells. Left sphenoid sinus disease. The surrounding soft tissues and osseous structures are unremarkable. IMPRESSION: 1. Extensive periventricular and deep white matter signal abnormality most of which is likely chronic . Possible small focus of subacute ischemia in the right periventricular region. No definite acute i ntracranial hemorrhage on MRI. Clinical correlation and continued follow-up is recommended. HS:Y
--- NOTE | 2024-06-15 11:17 | DVHPN2 ---
Progress Note Date Seen: Jun 15, 2024 Medical Necessity Reason Pt with a Central, PICC or Fol: Yes The following are medically ne: Central Line, Putnam Catheter Reason for putnam catheter: Strict I&O Objective vital signs Vital Sign Date Time Temp Pulse Resp B/P (MAP) Pulse Ox O2 Delivery O2 Flow Rate FiO2 06/15/24 10:52 93 115/69 06/15/24 09:48 22 98 30 06/15/24 04:00 98.6 98.6 06/14/24 20:00 Mechanical Ventilator+ Total Intake and Output 06/14/24 06/14/24 06/15/24 15:00 23:00 07:00 Intake Total 615.0 ml 572.5 ml 530.0 ml Output Total 1700 ml 400 ml Balance 615.0 ml -1127.5 ml 130.0 ml medications Current Medications Medications Dose Ordered Sig/Yousif Route Start Time Stop Time Status Last Admin Dose Admin Midazolam HCl 50 ml @ 1 mls/hr Q24H IV 05/25/24 06:30 05/29/24 09:11 5 MLS/HR Atorvastatin Calcium 40 mg HS NG 05/25/24 22:00 06/14/24 21:13 40 MG Ondansetron HCl 4 mg Q4HP PRN IV 05/25/24 10:45 Nitroglycerin 0.4 mg Q5MINP PRN SL 05/25/24 10:45 Albuterol 2.5 mg Q4HR NEB 05/25/24 14:00 06/15/24 09:48 2.5 MG Ipratropium [place] 0.5 mg Q4HR NEB 05/25/24 14:00 06/15/24 09:48 0.5 MG Fentanyl Citrate 250 ml @ 2.5 mls/hr Q24H IV 05/25/24 19:30 06/14/24 05:36 20 MLS/HR Ibuprofen 400 mg Q4HP PRN GT 05/26/24 01:15 05/26/24 01:42 400 MG Cefepime HCl 0.5 gm/Dextrose 50 ml @ 12.5 mls/hr Q24H IV 05/29/24 18:00 06/14/24 19:21 12.5 MLS/HR Hydralazine HCl 10 mg Q6HP PRN IV 05/29/24 16:30 06/13/24 20:02 10 MG Pantoprazole Sodium 40 mg DAILY IV 05/30/24 10:00 06/14/24 10:00 40 MG Bumetanide 2 mg BIDD IV 05/30/24 18:00 06/15/24 05:43 2 MG Calcium Acetate 1,334 mg Q8HR GT 06/02/24 14:00 06/15/24 05:42 1,334 MG Aspirin 81 mg DAILY PO 06/10/24 10:00 06/14/24 09:28 81 MG Acetylcysteine 100 mg Q8HR NEB 06/09/24 22:00 06/15/24 06:32 100 MG Nicardipine HCl 50 mg/Sodium Chloride 250 ml @ 25 mls/hr Q10H IV 06/12/24 13:45 06/15/24 10:52 50 MLS/HR Carvedilol 25 mg Q12HR PO 06/13/24 22:00 06/14/24 21:14 25 MG Hydralazine HCl 50 mg Q8HR PO 06/14/24 14:00 06/15/24 05:43 50 MG Micafungin Sodium 100 mg/Sodium Chloride 100 ml @ 100 mls/hr DAILY@2100 IV 06/14/24 21:00 06/14/24 21:11 100 MLS/HR Amlodipine Besylate 10 mg DAILY GT 06/14/24 20:00 Enteral Nutritional Formula 1,000 ml 40ML/HR GT 06/15/24 09:15 Examination: GENERAL:Abnormal, LUNGS:Abnormal, ABDOMEN:Abnormal, NEURO:Abnormal laboratory and microbiology Laboratory Tests 06/14/24 03:35 Test 06/14/24 03:35 Range/Units Serum Glucose 103 74-106 mg/dL Microbiology Date/Time Source Procedure Growth Status 06/09/24 17:21 Urine - [place] Urine Culture - Final Complete 06/07/24 10:50 Blood Blood Culture - Final NO GROWTH AFTER 5 DAYS OF INCUBATION. Complete 05/27/24 08:50 Nose MRSA Screen - Final Complete 05/25/24 06:50 Sputum Gram Stain - Final Complete 05/25/24 06:50 Respiratory Culture - Final Presumptive Tara albicans Complete Problem List/Assessment/Plan Problem List/Assessment/Plan Acute kidney injury likely ATN on acute dialysis Unknown baseline septic shock Gram + bacteremia Morbid obesity Strept PNA Ventilator-dependent hypoxic respiratory failure BP regime increase oral meds. po hydralazine, coreg, add norvasc po . taper off drip increase UOP continue diuretics fluid removal as tolerated monitor fluid balances and ABX has not shown metabolic clearence despite improvement in UOP. Rec continued dialysis. Placement of longer lasting catheter. Will require outpatient dialysis unit renal function recovers Plan discussed with: Other My Orders My Orders Orders - TOMY VALVERDE MD Procedure Category Date Status Time Amlodipine Tablet PHA 06/14/24 In Process (Norvasc Tablet) 20:00 Phosphorus LAB 06/15/24 Transmitted 11:13 Dietary Evaluation Review Comments: 1) If GI is accessible consider Jevity 1.2 @ 70ml/hr x 24hr continuous feed goal rate as tolerated 2) If pt remains NPO >7 days consider TPN to meet at least 75% of estimated needs 3) Advance pt diet when medically feasible to a 2gm Sodium diet modified per [employer] recommendations 4) Continue current plan of care Expected Outcomes/Goals: 1) Pt to receive nutrition support within 7 days of NPO status 2) Pt diet to advance 3) F/U in 2-3 days TOMY VALVERDE MD Jun 15, 2024 11:17
[2024-06-15 11:43] LABS: Basophils # (auto) 0 10 ^3/uL (0-0.2); Basophils % (auto) 0.5 % (0.0-2.0); Eosinophils # (auto) 0.1 10 ^3/uL (0-0.8); Eosinophils % (auto) 0.9 % (0.0-7.0); Hematocrit 29.6 % (36.0-46.0); Hemoglobin 9.6 g/dL (12.2-16.2); Lymphocytes # (auto) 0.9 10 ^3/uL (0.4-5.4); Lymphocytes % (auto) 10.7 % (10.0-50.0); Mean Corpuscular Hgb Conc. 32.4 g/dL (32.0-36.0); Mean Corpuscular Volume 92.6 fL (80.0-100.0); Monocytes # (auto) 1.1 10 ^3/uL (0-1.3); Monocytes % (auto) 12.6 % (0.0-12.0); Neutrophils # (auto) 6.4 10 ^3/uL (1.6-8.6); Neutrophils % (auto) 75.3 % (37.0-80.0); Nucleated Red Blood Cells % 0.1 %; Platelet Count (auto) 203 10^3/uL (140-450); Red Cell Distribution Width 17.1 % (11.8-14.3); White Blood Cell 8.5 10^3/uL (4.4-10.8)
[2024-06-15 11:47] LABS: Chloride 102 mmol/L (98-107); Potassium 3.6 mmol/L (3.5-5.1); Sodium 141 mmol/L (136-145)
[2024-06-15 11:48] LABS: Anion Gap 11 (5-15); Carbon Dioxide 28 mmol/L (20-31)
--- NOTE | 2024-06-15 11:48 | DVH ---
CAROTID ARTERIAL DOPPLER CLINICAL HISTORY: CVA TECHNIQUE: Doppler study of bilateral carotid/vertebral arteries were performed. Comparison: None FINDINGS: The left carotid and vertebral arteries are not visualized secondary to overlying bandage. The right common carotid, internal carotid arteries appear patent without hemodynamically significan t stenosis. there are scattered nonocclusive atheromatous plaques. There is elevated peak systolic ve locity in the right external carotid artery measuring 170 centimeters/second The spectral wave forms and peak systolic velocities are otherwise within normal limits. Antegrade flow is present within the right vertebral artery with appropriate velocities and waveforms . Right ICA/CCA PSV ratio = 1.0. IMPRESSION: 1. There is no hemodynamically significant stenosis in the right common carotid and internal carotid arteries. There is elevated peak systolic velocity in the right external carotid artery. 2. Nonvisualization of the left carotid and vertebral arteries secondary to overlying bandage. Consid er further evaluation with CTA neck. HS:Y
[2024-06-15 11:55] LABS: Blood Urea Nitrogen 54 mg/dL (9-23); Glucose 112 mg/dL (74-106)
--- NOTE | 2024-06-15 13:42 | DVHPN2 ---
Consult Progress Note Date Seen: Jun 15, 2024 Subjective Other Systems: Notified of acute CVA with Neurology team requesting a SAMIR Objective vital signs Vital Sign Date Time Temp Pulse Resp B/P (MAP) Pulse Ox O2 Delivery O2 Flow Rate FiO2 06/15/24 12:56 147/64 06/15/24 12:54 88 06/15/24 11:51 22 97 30 06/15/24 08:00 99.3 99.3 06/14/24 20:00 Mechanical Ventilator+ Total Intake and Output 06/14/24 06/14/24 06/15/24 15:00 23:00 07:00 Intake Total 615.0 ml 572.5 ml 530.0 ml Output Total 1700 ml 400 ml Balance 615.0 ml -1127.5 ml 130.0 ml medications Current Medications Medications Dose Ordered Sig/Yousif Route Start Time Stop Time Status Last Admin Dose Admin Midazolam HCl 50 ml @ 1 mls/hr Q24H IV 05/25/24 06:30 05/29/24 09:11 5 MLS/HR Atorvastatin Calcium 40 mg HS NG 05/25/24 22:00 06/14/24 21:13 40 MG Ondansetron HCl 4 mg Q4HP PRN IV 05/25/24 10:45 Nitroglycerin 0.4 mg Q5MINP PRN SL 05/25/24 10:45 Albuterol 2.5 mg Q4HR NEB 05/25/24 14:00 06/15/24 09:48 2.5 MG Ipratropium [place] 0.5 mg Q4HR NEB 05/25/24 14:00 06/15/24 09:48 0.5 MG Fentanyl Citrate 250 ml @ 2.5 mls/hr Q24H IV 05/25/24 19:30 06/14/24 05:36 20 MLS/HR Ibuprofen 400 mg Q4HP PRN GT 05/26/24 01:15 05/26/24 01:42 400 MG Cefepime HCl 0.5 gm/Dextrose 50 ml @ 12.5 mls/hr Q24H IV 05/29/24 18:00 06/14/24 19:21 12.5 MLS/HR Hydralazine HCl 10 mg Q6HP PRN IV 05/29/24 16:30 06/13/24 20:02 10 MG Pantoprazole Sodium 40 mg DAILY IV 05/30/24 10:00 06/15/24 12:59 40 MG Bumetanide 2 mg BIDD IV 05/30/24 18:00 06/15/24 05:43 2 MG Calcium Acetate 1,334 mg Q8HR GT 06/02/24 14:00 06/15/24 05:42 1,334 MG Aspirin 81 mg DAILY PO 06/10/24 10:00 06/15/24 12:56 81 MG Acetylcysteine 100 mg Q8HR NEB 06/09/24 22:00 06/15/24 06:32 100 MG Nicardipine HCl 50 mg/Sodium Chloride 250 ml @ 25 mls/hr Q10H IV 06/12/24 13:45 06/15/24 10:52 50 MLS/HR Carvedilol 25 mg Q12HR PO 06/13/24 22:00 06/15/24 12:54 25 MG Micafungin Sodium 100 mg/Sodium Chloride 100 ml @ 100 mls/hr DAILY@2100 IV 06/14/24 21:00 06/14/24 21:11 100 MLS/HR Amlodipine Besylate 10 mg DAILY GT 06/14/24 20:00 06/15/24 12:56 10 MG Enteral Nutritional Formula 1,000 ml 40ML/HR GT 06/15/24 09:15 Hydralazine HCl 50 mg Q6HR PO 06/15/24 12:00 Examination: GENERAL:Abnormal, LUNGS:Abnormal, CVS:Abnormal, NEURO:Abnormal laboratory and microbiology Laboratory Tests 06/15/24 11:15 Test 06/15/24 11:15 Range/Units Serum Glucose 112 H 74-106 mg/dL Problem List/Assessment/Plan Problem List/Assessment/Plan 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 Currently on Coreg * Lipid-lowering agent. Reinitiate single antiplatelet therapy * ASA therapy cleared by neurology team * Cardiac surveillance: Monitor and notify for any ECG changes * Nephrology/Neurology/Infectious disease recommendations * ABX therapy per primary care team * PICC line consultation * DVT/VTE prophylaxis: SCDs Conservative management. Primary care team notified of latest findings. Thank you for allowing us to care for this patient. Please call with any questions or concerns. Critical care time spent: 30 minutes. This medical document was created using an electronic medical record system with voice recognition software and computerized dictation system. Although this document has been carefully reviewed, there might still be some phonetic and typographical errors. Occasional wrong-word or ``sound-alike substitutions may have occurred due to the inherent limitations of voice recognition software. These areas are purely typographical due to imperfections of the software programs and do not reflect any compromise in the patient's medical care. Please read the chart carefully and recognize, using context, where these substitutions have occurred. Plan discussed with: Other Dietary Evaluation Review Comments: 1) If GI is accessible consider Jevity 1.2 @ 70ml/hr x 24hr continuous feed goal rate as tolerated 2) If pt remains NPO >7 days consider TPN to meet at least 75% of estimated needs 3) Advance pt diet when medically feasible to a 2gm Sodium diet modified per MACHINE [employer]OOKKEEPER recommendations 4) Continue current plan of care Expected Outcomes/Goals: 1) Pt to receive nutrition support within 7 days of NPO status 2) Pt diet to advance 3) F/U in 2-3 days Date of Service: Jun 15, 2024 Billing Provider: SARAH MONCADA Cardiology Common Codes: 68383-SRSYIJEI CARE 30-74 MIN SARAH MONCADA Jun 15, 2024 13:42
--- NOTE | 2024-06-15 13:45 | DVHOP2 ---
Operative Report - 2 Report Details Date: 06/15/24 Preop Diagnosis: CVA Postop Diagnosis: Endocarditis Surgeon: Rm Buchanan MD Anesthesiologist: Patient intubated on sedation medications Anesthesia: Mac, Local Consent: The patient was informed of the risks and benefits of the procedure. These include but are not limited to complications of anesthesia, postoperative infection, incomplete relief of symptoms, recurrence of symptoms, damage to blood vessels, nerves and tendons, deep venous thrombosis, pulmonary embolism and possible need for repeat surgery in the future. Complications: No complications Estimated Blood Loss: No blood loss Findings: Vegetation anterior mitral leaflet Indications for Surgery: CVA Name of Procedure Performed Transesophageal echocardiography Procedure Details Procedure Details: Patient intubated lying flat in bed. Transesophageal probe passed without difficulty. Standard views obtained. Bubble study performed. Findings there appears to be biatrial enlargement with concentric LVH. Patient was in a sinus rhythm. The leaflets are within normal limits. The tricuspid and pulmonic are normal. Posterior mitral leaflet is normal. The anterior mitral leaflet on the atrial side at the distal 1/3 of the leaflet tip there is a proximally a 3 mm vegetation. It is nodular slightly pedunculated. It appears to be homogeneous in his intensity however there are raphaes within it. It does not appear to be protruding into the left ventricle appears to stay with the in the bounds of the tip of the mitral leaflet.. Left ventricular systolic performance is preserved at 60% with normal right ventricular function. There is moderate mitral insufficiency with mild tricuspid regurgitation. No atrial or ventricular septal defects present. No intracardiac masses of the than the vegetation noted on the anterior mitral leaflet. No ASD or VSD noted. The atrial appendage is clean. Condition Guarded Disposition Still a Patient Date of Service: Jun 15, 2024 Billing Provider: RM BUCHANAN Sr., MD Cardiology Common Codes: [id number] INP/OBS CARE (High) (Teodoro performed) RM BUCHANAN Sr., MD Jun 15, 2024 13:45
[2024-06-15] MEDS: hydrALAZINE HCL 25 MG TAB PO SCH (15:56)
[2024-06-15] MEDS: Nepro With Carb Steady 1 Liter Bottle GT SCH (15:57)
--- NOTE | 2024-06-15 18:47 | DVHINCON2 ---
Date of service: Jun 15, 2024 Referring Physician Razia Reason for Consultation Sepsis History of Present Illness Patient is a 53-year-old female presented to the hospital for the complaint of shortness of breath. Patient was complaining of shortness of breath so, EMS called and she was brou ght here to the ED and was altered then subsequently intubated. Per patient's son Jc, he states that his mom has been sick for about a month and has been taking [id number] medications along with tea to help with a cold and her headache. Patient's son reports that she has a history of hypertension who has been compliant with her medications however he does not know what medications she is taking. Cardiology consulted for elevated troponin levels. Initial twelve lead electrocardiogram revealed sinus tachycardia with ST segment changes in diffuse leads and prolonged QTc interval. Initial troponin level of 1060ng/L. Initial BNP level of 1384.04pg/mL. In the hospital, the patient was found to have pneumonia, sepsis, septic shock, metabolic acidosis, lactic acidosis, acute on chronic kidney failure and heart attack. Today, Her eyes are open with conjugated rolling eye movement, but she does not respond to verbal stimuli or follows, pupils are equally round and reactive with conjugated eye movement, no spontaneous extremity movement. Antibiotic History: Ceftriaxone IV [06/15] Doxycycline Hyclate [Started on 06/09 - Ongoing] Cefepime IV [Started on 05/27 - Ongoing] Culture History: 05/25, Sputum culture revealed Presumptive Tara albicans 05/25, Blood culture showed Streptococcus pneumoniae 05/25, Urine culture showed no growth 05/27, MRSA screening negative 06/07, Blood culture showed no growth 06/09, Urine culture showed <10,000 CFU/mL Past Medical History Patient's past medical history is significant for hypertension. Family History: Hypertension G8 MOTHER G8 FATHER Allergies: Coded Allergies: UNOBTAINABLE (Unverified , 05/25/24) Pt unresponsive Current Medications Current Medications Medications (Trade) Dose Ordered Sig/Yousif Route PRN Reason Start Time Stop Time Status Last Admin Doxycycline Hyclate 100 ml @ 50 mls/hr Q12HR@0800,2000 IV 06/14/24 20:00 06/15/24 09:18 DC 06/14/24 20:00 Micafungin Sodium 100 mg/Sodium Chloride 100 ml @ 100 mls/hr DAILY@2100 IV 06/14/24 21:00 06/14/24 21:11 Amlodipine Besylate (Norvasc Tablet) 10 mg DAILY GT 06/14/24 20:00 06/15/24 12:56 Enteral Nutritional Formula (Nepro With Carb Steady) 1,000 ml 40ML/HR GT 06/15/24 09:15 06/15/24 15:57 Hydralazine HCl (Apresoline Tablet) 50 mg Q6HR PO 06/15/24 12:00 06/15/24 18:33 Review of Systems General: No Fever, chills, night sweats or weight loss HEENT: No Sinus pain, headache, vision changes or sore throat Respiratory: Reports shortness of breath. No Cough, sputum production Cardiovascular: No Chest pain, palpitations or leg edema Gastrointestinal: No Nausea, vomiting, diarrhea, abdominal pain Genitourinary: No Dysuria, urinary frequency, hematuria, pelvic pain Skin: No Rashes, ulcers, abscesses, redness or swelling Musculoskeletal: No Joint pain, muscle pain or swelling Neurologic: No Altered mental status, headaches or focal neurological deficits Psychiatric: No Anxiety, depression or confusion Vital Signs Vital Signs Date Time Temp Pulse Resp B/P (MAP) Pulse Ox O2 Delivery O2 Flow Rate FiO2 06/15/24 18:33 133/59 06/15/24 17:30 99.0 83 22 97 210.2 06/15/24 15:36 30 06/14/24 20:00 Mechanical Ventilator+ Physical Exam Gen: Patient lying in bed in medical ICU. Intubated on mechanical ventilator. Head: Normocephalic, atraumatic. Eyes: PERRLA. Ears: Normal external anatomy. Throat: Endotracheal tube and orogastric tube in place. Neck: Supple, trachea midline. Chest: Transmitted breath sounds bilaterally. Decreased air entry bilaterally. No wheezing. Bibasilar crackles. Cardiovascular: Positive S1, positive S2. Regular rate and rhythm. Abdomen: Positive bowel sounds in all 4 quadrants. Soft, nontender, nondistended. : Potter in place. Normal external genitalia. Rectal: Deferred. Skin: Warm, dry. Intact. Extremities: 2+ radial pulses bilaterally. No lower extremity edema. Neuro: Off sedation Labs/Diagnostic Data Labs Test 06/15/24 11:15 06/15/24 06:48 06/14/24 03:35 06/13/24 23:07 Range/Units White Blood Count 8.5 4.4-10.8 10^3/uL Red Blood Count 3.20 L 4.0-5.20 10^6/uL Hemoglobin 9.6 L 12.2-16.2 g/dL Hematocrit 29.6 L 36.0-46.0 % Mean Corpuscular Volume 92.6 80.0-100.0 fL Mean Corpuscular Hemoglobin 30.0 28.0-32.0 pg Mean Corpuscular Hemoglobin Concent 32.4 32.0-36.0 g/dL Red Cell Distribution Width 17.1 H 11.8-14.3 % Platelet Count 203 140-450 10^3/uL Mean Platelet Volume 8.0 6.9-10.8 fL Neutrophils (%) (Auto) 75.3 37.0-80.0 % Lymphocytes (%) (Auto) 10.7 10.0-50.0 % Monocytes (%) (Auto) 12.6 H 0.0-12.0 % Eosinophils (%) (Auto) 0.9 0.0-7.0 % Basophils (%) (Auto) 0.5 0.0-2.0 % Neutrophils # (Auto) 6.4 1.6-8.6 10 ^3/uL Lymphocytes # (Auto) 0.9 0.4-5.4 10 ^3/uL Monocytes # (Auto) 1.1 0-1.3 10 ^3/uL Eosinophils # (Auto) 0.1 0-0.8 10 ^3/uL Basophils # (Auto) 0 0-0.2 10 ^3/uL Nucleated Red Blood Cells 0.1 % Sodium Level 141 136-145 mmol/L Potassium Level 3.6 3.5-5.1 mmol/L Chloride Level 102 98-107 mmol/L Carbon Dioxide Level 28 20-31 mmol/L Anion Gap 11 5-15 Blood Urea Nitrogen 54 #H 9-23 mg/dL Creatinine 3.59 H 0.550-1.02 mg/dL Glomerular Filtration Rate Calc 14 >90 mL/min BUN/Creatinine Ratio 15.0 10.0-20.0 Serum Glucose 112 H 74-106 mg/dL Calcium Level 10.0 8.7-10.4 mg/dL Phosphorus Level 5.0 2.4-5.1 mg/dL Blood Gas Specimen Type Arterial Blood Gas Sample Site Arterial line Blood Gas Patient Temperature 37.0 Arterial Blood Date Drawn [id number] Arterial Blood pH 7.617 *H 7.350-7.450 Arterial Blood Partial Pressure CO2 24.7 L 32.0-45.0 mmHg Arterial Blood Partial Pressure O2 84.4 83.0-108.0 mmHg Arterial Blood HCO3 24.7 21.0-28.0 mmol/L Arterial Blood Oxygen Saturation 96.3 94.0-98.0 % Arterial Blood Base Excess 4.0 H -2.0-3.0 mmol/L Arterial Blood Oxyhemoglobin 96.0 94.0-98.0 % Arterial Blood Carboxyhemoglobin 0.1 L 0.5-1.5 % Arterial Blood Methemoglobin 0.2 0.0-1.5 % Joni Test N/a Blood Gas Total Hemoglobin 9.90 L 12.0-16.0 g/dL Blood Gas Set Respiration Rate 22.0 Blood Gas Modality Vent - ac FiO2 % 30.0 Blood Gas Tidal Volume 600.0 Blood Gas PEEP or CPAP 8.0 Blood Gas Critical Value Read Back Yes Blood Gas Notified Whom Dr. shepherd Blood Gas Notified Time [id number] Blood Gas Notified By Kamron saleh rrt Total Bilirubin 0.5 0.2-1.0 mg/dL Aspartate Amino Transferase (AST) 23 13-40 U/L Alanine Aminotransferase (ALT) 95 H 7-40 U/L Alkaline Phosphatase 103 46-116 U/L Total Protein 6.2 5.7-8.2 g/dL Albumin 3.3 3.2-4.8 g/dL POC Glucose 108 H 70-106 mg/dl Test 06/13/24 03:37 06/09/24 07:36 06/04/24 08:25 06/03/24 03:57 Range/Units Magnesium Level 2.2 # 1.6-2.6 mg/dL Blood Gas Spontaneous Rate 22 Blood Gas Inspiratory Pressure 27.0 Bl Gas Inspiratory/Expiratory Ratio 1:2.3 Specimen Drawn By nanette barraza Prothrombin Time 12.3 H 9.3-11.8 sec Prothrombin Time INR 1.18 H 0.9-1.15 Activated Partial Thromboplast Time 34.8 H 24.5-34.5 SEC Differential Total Cells Counted 100.0 100 Neutrophils % (Manual) 88 H 37.0-80.0 Band Neutrophils % (Manual) 0 Lymphocytes % (Manual) 9 L 10.0-50.0 Monocytes % (Manual) 3 0-12 Eosinophils % (Manual) 0 0-7 Basophils % (Manual) 0 0.0-2.0 Metamyelocytes % (manual) 0 Myelocytes % (Manual) 0 Promyelocytes % (Manual) 0 Blast Cells % (Manual) 0 Reactive Lymphocytes 0 Platelet Estimate Adequate Test 06/02/24 13:17 06/01/24 04:00 05/28/24 03:43 05/28/24 01:30 Range/Units Ammonia < 10 L 11-32 umol/L Vitamin B1 Level 118.2 66.5-200.0 nmol/L Vitamin B12 Level 836 211-911 pg/mL Vitamin D 25-Hydroxy 26 L . ng/mL 25-Hydroxy Vitamin D2 <1.0 . ng/mL 25-Hydroxy Vitamin D3 26 . ng/mL Hepatitis A IgM Antibody Negative Hepatitis B Surface Antigen Negative Negative Hepatitis B Core IgM Antibody Negative Negative Hepatitis C Antibody Negative Negative Iron Level 24 L 50-170 ug/dL Total Iron Binding Capacity 279 250-425 ug/dL Percent Iron Saturation 8.6 L 15-50 % Ferritin 355.1 H 10-291 ng/mL Smudge Cells 1 /100 WBC Urine Creatinine 248.25 H 30.0-125.0 mg/dL Urine Sodium 27 L 40-220 mmol/L Urine Total Protein 293.2 H 1-14 mg/dL Test 05/27/24 03:35 05/26/24 11:00 05/26/24 06:17 05/26/24 03:35 Range/Units Hypochromasia (manual) Slight Anisocytosis (manual) Slight Random Vancomycin Level 22.4 H 5-10 ug/mL Uric Acid 10.9 H 3.1-7.8 mg/dL Lactic Acid Level 3.6 *H 0.4-2.0 mmol/L Large Platelets Few Triglycerides Level 164 H < 150 mg/dL Cholesterol Level 87 < 200 mg/dL LDL Cholesterol 23 < 100 mg/dL HDL Cholesterol 6 L 40-59 mg/dL Lipase 47 12-53 U/L Test 05/25/24 22:40 05/25/24 11:35 05/25/24 08:30 05/25/24 08:24 Range/Units Troponin I High Sensitivity 1262 *H </=34 ng/L Thyroid Stimulating Hormone (TSH) 0.57 0.55-4.78 uIU/mL Urine Color Yellow Yellow Urine Clarity Clear Clear Urine pH 7.5 5.0-9.0 Urine Specific [place] 1.013 1.001-1.035 Urine Protein 2+ H Negative Urine Ketones Negative Negative Urine Blood Negative Negative /uL Urine Nitrite Negative Negative Urine Bilirubin Negative Negative Urine Urobilinogen 8 H Negative mg/dL Urine Leukocyte Esterase Negative Negative /uL Urine RBC 5 0 - 4 /hpf Urine WBC 1 0 - 5 /hpf Urine Squamous Epithelial Cells Few <5 /hpf Urine Bacteria None seen None Seen /hpf Urine Glucose Normal Normal mg/dL Urine Opiates Screen Neg NEGATIVE Urine Fentanyl Screen Neg NEGATIVE Urine Barbiturates Screen Neg NEGATIVE Urine Phencyclidine Screen Neg NEGATIVE Urine Amphetamines Screen Neg NEGATIVE Urine Benzodiazepines Screen Neg NEGATIVE Urine Cocaine Screen Neg NEGATIVE Urine Cannabinoids Screen Neg NEGATIVE Hemoglobin A1c 5.6 <5.7 % A1C B-Type Natriuretic Peptide 1384.04 0-100 pg/mL Test 05/25/24 06:40 Range/Units Influenza Type A Antigen Negative Negative Influenza Type B Antigen Negative Negative SARS-CoV-2 Antigen (Rapid) Negative NEGATIVE Microbiology Date/Time Source Procedure Growth Status 06/09/24 17:21 Urine - [place] Urine Culture - Final Complete 06/07/24 10:50 Blood Blood Culture - Final NO GROWTH AFTER 5 DAYS OF INCUBATION. 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 prognosis gaurded Primary team is having difficult time waking her up and extubate, she is cur rently went dependent Thank you for consult. Plan discussed with: JUNG Roblero MD Jun 15, 2024 18:47
[2024-06-15] MEDS: cefTRIAXone 2GM/50ML D5W 50 ML IV SCH (23:09)
[2024-06-15] MEDS: PROPOFOL 100 ML IV SCH (23:09)
--- NOTE | 2024-06-15 23:17 | DVHPN2 ---
Progress Note - Dictate Date Seen: Jun 15, 2024 Medical Necessity Reason Pt with a Central, PICC or Fol: Yes The following are medically ne: Central Line, Putnam Catheter Reason for putnam catheter: Strict I&O Subjective Patient seen and examined at bedside. intubated on mechanical ventilator. Overnight events reviewed. vital signs Vital Sign Date Time Temp Pulse Resp B/P (MAP) Pulse Ox O2 Delivery O2 Flow Rate FiO2 06/15/24 23:07 82 145/62 06/15/24 21:23 22 98 30 06/15/24 17:30 99.0 210.2 06/15/24 08:00 Mechanical Ventilator+ Total Intake and Output 06/14/24 06/14/24 06/15/24 15:00 23:00 07:00 Intake Total 615.0 ml 572.5 ml 582.5 ml Output Total 1700 ml 400 ml Balance 615.0 ml -1127.5 ml 182.5 ml medications Current Medications Medications Dose Ordered Sig/Yousif Route Start Time Stop Time Status Last Admin Dose Admin Midazolam HCl 50 ml @ 1 mls/hr Q24H IV 05/25/24 06:30 05/29/24 09:11 5 MLS/HR Atorvastatin Calcium 40 mg HS NG 05/25/24 22:00 06/15/24 23:05 40 MG Ondansetron HCl 4 mg Q4HP PRN IV 05/25/24 10:45 Nitroglycerin 0.4 mg Q5MINP PRN SL 05/25/24 10:45 Albuterol 2.5 mg Q4HR NEB 05/25/24 14:00 06/15/24 23:02 2.5 MG Ipratropium [place] 0.5 mg Q4HR NEB 05/25/24 14:00 06/15/24 23:02 0.5 MG Fentanyl Citrate 250 ml @ 2.5 mls/hr Q24H IV 05/25/24 19:30 06/15/24 09:30 5 MLS/HR Ibuprofen 400 mg Q4HP PRN GT 05/26/24 01:15 05/26/24 01:42 400 MG Hydralazine HCl 10 mg Q6HP PRN IV 05/29/24 16:30 06/13/24 20:02 10 MG Pantoprazole Sodium 40 mg DAILY IV 05/30/24 10:00 06/15/24 12:59 40 MG Bumetanide 2 mg BIDD IV 05/30/24 18:00 06/15/24 18:33 2 MG Calcium Acetate 1,334 mg Q8HR GT 06/02/24 14:00 06/15/24 23:05 1,334 MG Aspirin 81 mg DAILY PO 06/10/24 10:00 06/15/24 12:56 81 MG Acetylcysteine 100 mg Q8HR NEB 06/09/24 22:00 06/15/24 23:02 100 MG Nicardipine HCl 50 mg/Sodium Chloride 250 ml @ 25 mls/hr Q10H IV 06/12/24 13:45 06/15/24 19:46 25 MLS/HR Carvedilol 25 mg Q12HR PO 06/13/24 22:00 06/15/24 23:07 25 MG Amlodipine Besylate 10 mg DAILY GT 06/14/24 20:00 06/15/24 12:56 10 MG Enteral Nutritional Formula 1,000 ml 40ML/HR GT 06/15/24 09:15 06/15/24 15:57 1,000 ML Hydralazine HCl 50 mg Q6HR PO 06/15/24 12:00 06/15/24 18:33 50 MG Ceftriaxone Sodium/Dextrose 50 ml @ 50 mls/hr DAILY@2100 IV 06/15/24 21:00 06/15/24 23:09 50 MLS/HR Propofol 100 ml @ 4.398 mls/ hr [id number] IV 06/15/24 21:00 06/15/24 23:09 4.398 MLS/HR objective Gen.: Patient lying in bed in medical ICU. Intubated on mechanical ventilator. Head: Normocephalic, atraumatic. Eyes: PERRLA. Ears: Normal external anatomy. Throat: Endotracheal tube and orogastric tube in place. Neck: Supple, trachea midline. Chest: Transmitted breath sounds bilaterally. Decreased air entry bilaterally. No wheezing. Bibasilar crackles. Cardiovascular: Positive S1, positive S2. Regular rate and rhythm. Abdomen: Positive bowel sounds in all 4 quadrants. Soft, nontender, nondistended. : Putnam in place. Normal external genitalia. Rectal: Deferred. Skin: Warm, dry. Intact. Extremities: 2+ radial pulses bilaterally. No lower extremity edema. Neuro: Off sedation laboratory and microbiology Laboratory Tests 06/15/24 11:15 Test 06/15/24 11:15 Range/Units Serum Glucose 112 H 74-106 mg/dL Assessment/Plan Impression: Acute hypoxic respiratory failure On mechanical ventilator Septic shock Elevated troponin Acute kidney injury Lactic acidosis Metabolic acidosis Multifocal pneumonia, likely gram negative Pulmonary edema AE COPD Events: On vent support On AC mode; RR 22, VT 600, PEEP 8, FiO2 30% CT head reviewed, reveals e/o multiple strokes. Follow up Neurology recommendations Nicardipine drip for BP control at 5 mg/hr. On Coreg Fentanyl for analgesia ABG reviewed, notable for severe alkalemia CXR demonstrates diffuse multifocal consolidative opacities. Devices in place. Continue antibiotics Tube feeds for nutritional support Wound care Monitor hemoglobin Monitor renal function Hemodialysis per Nephrology Nephrology recs appreciated. Echo showed EF of 40%. SBT/KAREN Patient opens eyes, not following commands. Awaiting for mentation to improve. Poor prognosis Consider trach/PEG for liberation from vent if family wishes for aggressive care. CT head on 06/06/24 revealed the two foci of left frontal subcortical hemorrhage are less conspicuous - partially resolved. No new foci of hemorrhage. Neurology recs appreciated. Labs and imaging reviewed. Rest of plan as noted below. Plan: s/p intubation on mechanical ventilator. On AC mode; RR 22, VT 600, PEEP 8, FiO2 30% Titrate FIO2 to keep O2 saturation above 90%. VAP bundle. Daily ABG and CXR while intubated Off sedation Off pressors, hemodynamically stable. Continue bronchodilators. Continue antibiotics. F/u cultures. Pressors if necessary to maintain a mean arterial blood pressure greater than 65 mmHg. Cardiology recs appreciated. Monitor renal function Monitor electrolytes. Supplement as necessary. Monitor ins and outs. Nephrology recs appreciated. IV fluid hydration GI prophylaxis. DVT prophylaxis. Prognosis: Poor given patient's multiple co-morbidities. Condition: Critical Rest of plan per hospitalist and other consultants. A total of 35 minutes of critical care time was spent reviewing the patient record, examining the patient, making a diagnostic and therapeutic plan, discussing this plan with the medical personnel, following up on diagnostic studies and following the patient for clinical stability excluding any and all procedures. At least 50% of this time was spent in direct, [id number] contact. Thank you, STAFF DEVELOPMENT NURSE Viral, for allowing me to participate in this patient's care. Further recommendations will depend on the patient's clinical course. Please do not hesitate to contact me if you have any questions or concerns. This medical document was created using an electronic medical record system with [employer] dictation system. Although these documentations are being carefully reviewed, there may still be some phonetic and typographical changes. The errors are purely typographical, due to imperfection on the software program, and do not reflect any compromise in the patient's medical care. Dietary Evaluation Review Comments: 1) If GI is accessible consider Jevity 1.2 @ 70ml/hr x 24hr continuous feed goal rate as tolerated 2) If pt remains NPO >7 days consider TPN to meet at least 75% of estimated needs 3) Advance pt diet when medically feasible to a 2gm Sodium diet modified per [employer]OLLER recommendations 4) Continue current plan of care Expected Outcomes/Goals: 1) Pt to receive nutrition support within 7 days of NPO status 2) Pt diet to advance 3) F/U in 2-3 days Plan discussed with: Other (LUZMARIA Abrams/Lenore) Critical Care Time(min): 35 MELODY ELIZABETH MD Jun 15, 2024 23:17
[2024-06-16] VITALS (109 sets, daily range): BP systolic 75–201; BP diastolic 35–197; PULSE 62–90; RESP 11–32; TEMP 97.7–99.1; O2SAT 96–100
[2024-06-16 04:03] LABS: Basophils # (auto) 0.1 10 ^3/uL (0-0.2); Eosinophils # (auto) 0.2 10 ^3/uL (0-0.8); Eosinophils % (auto) 1.8 % (0.0-7.0); Hematocrit 28.2 % (36.0-46.0); Hemoglobin 9.1 g/dL (12.2-16.2); Lymphocytes # (auto) 1.6 10 ^3/uL (0.4-5.4); Lymphocytes % (auto) 17.4 % (10.0-50.0); Mean Corpuscular Hgb Conc. 32.5 g/dL (32.0-36.0); Mean Corpuscular Volume 92.3 fL (80.0-100.0); Monocytes # (auto) 1.2 10 ^3/uL (0-1.3); Monocytes % (auto) 12.6 % (0.0-12.0); Neutrophils # (auto) 6.2 10 ^3/uL (1.6-8.6); Neutrophils % (auto) 67.2 % (37.0-80.0); Platelet Count (auto) 184 10^3/uL (140-450); Red Blood Cells 3.05 10^6/uL (4.0-5.20); Red Cell Distribution Width 16.9 % (11.8-14.3); White Blood Cell 9.2 10^3/uL (4.4-10.8)
[2024-06-16 04:26] LABS: Albumin 3.3 g/dL (3.2-4.8); Alkaline Phosphatase 112 U/L (46-116); Anion Gap 13 (5-15); Aspartate Aminotransferase 35 U/L (13-40); BUN/Creatinine Ratio 15.6 (10.0-20.0); Carbon Dioxide 26 mmol/L (20-31); Chloride 103 mmol/L (98-107); Glucose 88 mg/dL (74-106); Magnesium 2.1 mg/dL (1.6-2.6); Phosphorus 4.5 mg/dL (2.4-5.1); Sodium 142 mmol/L (136-145)
[2024-06-16 04:27] LABS: Bilirubin, Total 0.6 mg/dL (0.2-1.0); Total Protein 6.4 g/dL (5.7-8.2)
[2024-06-16 04:30] LABS: Blood Urea Nitrogen 63 mg/dL (9-23); Potassium 3.3 mmol/L (3.5-5.1)
[2024-06-16 04:31] LABS: Alanine Aminotransferase 81 U/L (7-40); Calcium 10.5 mg/dL (8.7-10.4)
--- NOTE | 2024-06-16 04:57 | DVH ---
CHEST RADIOGRAPH Indication: VENTILATOR Technique: Single frontal view of the chest was obtained Comparison: XY CHEST PORTABLE on DOS: 06/15/24 FINDINGS: Lines and Tubes: The endotracheal tube terminates 5.3 cm above the nik. Left central venous roel ter terminates in the superior vena cava. The enteric tube courses below the left hemidiaphragm and t he tip extends outside the field of view. Lungs: Bilateral opacities are similar to prior study. Pleura: No effusion. No pneumothorax. Cardiomediastinal contours: Unremarkable Bones: No acute osseous abnormality. IMPRESSION: 1. No significant interval change in appearance of the chest over 1 day.
[2024-06-16 05:05] LABS: INR 1.21 (0.9-1.15); Partial Thromboplastin Time 24.9 SEC (24.5-34.5); Prothrombin Time 12.6 sec (9.3-11.8)
[2024-06-16] MEDS: POTASSIUM CHL 20MEQ/100ML 100 ML IV ONE (05:40)
[2024-06-16 08:02] LABS: Base Excess 3.4 mmol/L (-2.0-3.0)
--- NOTE | 2024-06-16 08:23 | DVHPN2 ---
Progress Note - Dictate Date Seen: Jun 16, 2024 Medical Necessity Reason Pt with a Central, PICC or Fol: Yes The following are medically ne: Central Line, Putnam Catheter Reason for putnam catheter: Strict I&O Subjective Notified of ST depression on monitor. vital signs Vital Sign Date Time Temp Pulse Resp B/P (MAP) Pulse Ox O2 Delivery O2 Flow Rate FiO2 06/16/24 07:48 70 22 100/51 (67) 100 30 06/16/24 07:00 98.8 209.8 06/15/24 20:00 Mechanical Ventilator+ Total Intake and Output 06/15/24 06/15/24 06/16/24 15:00 23:00 07:00 Intake Total 422.5 ml 415.0 ml 342.358 ml Output Total 450 ml 400 ml Balance 422.5 ml -35.0 ml -57.642 ml medications Current Medications Medications Dose Ordered Sig/Yousif Route Start Time Stop Time Status Last Admin Dose Admin Midazolam HCl 50 ml @ 1 mls/hr Q24H IV 05/25/24 06:30 05/29/24 09:11 5 MLS/HR Atorvastatin Calcium 40 mg HS NG 05/25/24 22:00 06/15/24 23:05 40 MG Ondansetron HCl 4 mg Q4HP PRN IV 05/25/24 10:45 Nitroglycerin 0.4 mg Q5MINP PRN SL 05/25/24 10:45 Albuterol 2.5 mg Q4HR NEB 05/25/24 14:00 06/16/24 06:43 2.5 MG Ipratropium [place] 0.5 mg Q4HR NEB 05/25/24 14:00 06/16/24 06:43 0.5 MG Fentanyl Citrate 250 ml @ 2.5 mls/hr Q24H IV 05/25/24 19:30 06/15/24 00:15 15 MLS/HR Ibuprofen 400 mg Q4HP PRN GT 05/26/24 01:15 05/26/24 01:42 400 MG Hydralazine HCl 10 mg Q6HP PRN IV 05/29/24 16:30 06/13/24 20:02 10 MG Pantoprazole Sodium 40 mg DAILY IV 05/30/24 10:00 06/15/24 12:59 40 MG Bumetanide 2 mg BIDD IV 05/30/24 18:00 06/16/24 05:58 2 MG Calcium Acetate 1,334 mg Q8HR GT 06/02/24 14:00 06/15/24 23:05 1,334 MG Aspirin 81 mg DAILY PO 06/10/24 10:00 06/15/24 12:56 81 MG Acetylcysteine 100 mg Q8HR NEB 06/09/24 22:00 06/16/24 06:43 100 MG Nicardipine HCl 50 mg/Sodium Chloride 250 ml @ 25 mls/hr Q10H IV 06/12/24 13:45 06/15/24 19:46 25 MLS/HR Carvedilol 25 mg Q12HR PO 06/13/24 22:00 06/15/24 23:07 25 MG Amlodipine Besylate 10 mg DAILY GT 06/14/24 20:00 06/15/24 12:56 10 MG Enteral Nutritional Formula 1,000 ml 40ML/HR GT 06/15/24 09:15 06/15/24 15:57 1,000 ML Hydralazine HCl 50 mg Q6HR PO 06/15/24 12:00 06/15/24 18:33 50 MG Ceftriaxone Sodium/Dextrose 50 ml @ 50 mls/hr DAILY@2100 IV 06/15/24 21:00 06/15/24 23:09 50 MLS/HR Propofol 100 ml @ 4.398 mls/ hr [id number] IV 06/15/24 21:00 06/16/24 05:53 13.194 MLS/HR objective Gen: Patient lying in bed in medical ICU. Intubated on mechanical ventilator. Head: Normocephalic, atraumatic. Eyes: PERRLA. Ears: Normal external anatomy. Throat: Endotracheal tube and orogastric tube in place. Neck: Supple, trachea midline. Chest: Transmitted breath sounds bilaterally. Decreased air entry bilaterally. No wheezing. Bibasilar crackles. Cardiovascular: Positive S1, positive S2. Regular rate and rhythm. Abdomen: Positive bowel sounds in all 4 quadrants. Soft, nontender, nondistended. : Putnam in place. Normal external genitalia. Rectal: Deferred. Skin: Warm, dry. Intact. Extremities: 2+ radial pulses bilaterally. No lower extremity edema. 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 prognosis guarded Primary team is having difficult time waking her up and extubate, she is currently went dependent Thank you for consult. Dietary Evaluation Review Comments: 1) If GI is accessible consider Jevity 1.2 @ 70ml/hr x 24hr continuous feed goal rate as tolerated 2) If pt remains NPO >7 days consider TPN to meet at least 75% of estimated needs 3) Advance pt diet when medically feasible to a 2gm Sodium diet modified per CONSULTANT INTERNSHIP recommendations 4) Continue current plan of care Expected Outcomes/Goals: 1) Pt to receive nutrition support within 7 days of NPO status 2) Pt diet to advance 3) F/U in 2-3 days Plan discussed with: Other JUNG JORDAN MD Jun 16, 2024 08:23
--- NOTE | 2024-06-16 09:33 | DVHPN2 ---
Progress Note - Dictate Date Seen: Jun 16, 2024 Medical Necessity Reason Pt with a Central, PICC or Fol: Yes The following are medically ne: Central Line, Putnam Catheter Reason for putnam catheter: Strict I&O Subjective Ms. Pandya is a 53 years old right-handed female with a history of morbid obesity, hypertension, the patient was was brought to the [facility] on 05/25/24 with a chief company of altered mental status, respiratory distress. I have seen and examined the patient, I have talked to her nurse. She does not respond to light touch, verbal stimuli. When I open her eyes, I saw conjugated rolling eye movement No spontaneous extremity movement Fentanyl 50 mcg/hour, propofol 50 mcg/minute Talked to MRI yesterday Urine culture, 05/25/2024: Negative Blood culture, 05/25/2024: Streptococcus pneumoniae UDS, 05/25/2024: Negative Urinalysis, 05/25/2024: WBC: 1, urine leukocyte esterase: Negative ABG, 05/25/2024: Metabolic acidosis, hypoxia, 05/26/2024: Metabolic acidosis, hypoxia, 05/27/24: Metabolic acidosis, hypoxia WBC/HB/PLT/MCV, 06/02/2024: 22.4/9/342/89.4 06/09/2024: 19.6/9.4/235/91.6, 06/12/2024: 8.2/9.2/205/90.6 BUN/CR, 05/26/2024: 62/7.01 06/02/2024: 123/6.59, 06/09/2024: 137/6.32, 06/12/2024: 71/4.33 HGB A1c, 05/25/2024: 5.6 Lactic acid, 05/25/2024: 3.6, 4.6, 4.2, 05/26/2024: 3.6 Troponin one high sensitivity, 05/25/2024: 1060, 1354, 1262 TBI/AST/ALT/AP, 05/26/2024: 2/246/167/98, 06/07/2024: 0.9/139/464/93 TG/HDL/LDL/HDL, 05/25/2024: 192/98/40/8 Vitamin B12, 06/02/2024: 836 TSH, 05/25/2024: 0.57 Carotid Doppler, 06/15/2024: 1. There is no hemodynamically significant stenosis in the right common carotid and internal carotid arteries. There is elevated peak systolic velocity in the right external carotid artery. 2. Nonvisualization of the left carotid and vertebral arteries secondary to overlying bandage. Consider further evaluation with CTA neck Chest x-ray, 05/25/2024: 1. Distal tip of the endotracheal tube is approximately 5.5 cm above the level of the nik. 2. Poorly visualized enteric tube at its distal aspect. Appears to reach the gastroesophageal junction, although not visualized distal to this point. Correlate with clinical findings. 3. Bilateral airspace opacities and interstitial opacities, may be due to multifocal pneumonia or pulmonary edema in the appropriate clinical setting CT head, 05/25/2024: No gross acute intracranial process CT head, 06/02/24: 1. Interval development of 2 foci of subcortical parenchymal hemorrhage in the left frontal lobe. No mass effect or midline shift. 2. Moderate amount of fluid in the posterior nasopharynx likely related to intubation. Recommend suctioning to prevent aspiration. 3. Small bilateral mastoid effusions. We are in the process of reaching out to the nurse or physician in charge of the patient to convey the findings. CT head, 06/04/2024: Redemonstrated are 2 hyperdense foci in the subcortical left frontal lobe which may represent small foci of parenchymal hemorrhage. There is no significant surrounding edema or associated mass effect CT head, 06/06/2024: The 2 foci of left frontal subcortical hemorrhage are less conspicuous in the current exam partially resolved. No new foci of hemorrhage MR head, 06/15/2024: Extensive periventricular and deep white matter signal abnormality most of which is likely chronic. Possible small focus of subacute ischemia in the right periventricular region. No definite acute intracranial hemorrhage on MRI. Clinical correlation and continued follow-up is recommended. vital signs Vital Sign Date Time Temp Pulse Resp B/P (MAP) Pulse Ox O2 Delivery O2 Flow Rate FiO2 06/16/24 07:48 70 22 100/51 (67) 100 30 06/16/24 07:00 98.8 209.8 06/15/24 20:00 Mechanical Ventilator+ Total Intake and Output 06/15/24 06/15/24 06/16/24 14:59 22:59 06:59 Intake Total 437.5 ml 412.5 ml 382.358 ml Output Total 450 ml 400 ml Balance 437.5 ml -37.5 ml -17.642 ml medications Current Medications Medications Dose Ordered Sig/Yousif Route Start Time Stop Time Status Last Admin Dose Admin Midazolam HCl 50 ml @ 1 mls/hr Q24H IV 05/25/24 06:30 05/29/24 09:11 5 MLS/HR Atorvastatin Calcium 40 mg HS NG 05/25/24 22:00 06/15/24 23:05 40 MG Ondansetron HCl 4 mg Q4HP PRN IV 05/25/24 10:45 Nitroglycerin 0.4 mg Q5MINP PRN SL 05/25/24 10:45 Albuterol 2.5 mg Q4HR NEB 05/25/24 14:00 06/16/24 06:43 2.5 MG Ipratropium [place] 0.5 mg Q4HR NEB 05/25/24 14:00 06/16/24 06:43 0.5 MG Fentanyl Citrate 250 ml @ 2.5 mls/hr Q24H IV 05/25/24 19:30 06/15/24 00:15 15 MLS/HR Ibuprofen 400 mg Q4HP PRN GT 05/26/24 01:15 05/26/24 01:42 400 MG Hydralazine HCl 10 mg Q6HP PRN IV 05/29/24 16:30 06/13/24 20:02 10 MG Pantoprazole Sodium 40 mg DAILY IV 05/30/24 10:00 06/15/24 12:59 40 MG Bumetanide 2 mg BIDD IV 05/30/24 18:00 06/16/24 05:58 2 MG Calcium Acetate 1,334 mg Q8HR GT 06/02/24 14:00 06/15/24 23:05 1,334 MG Aspirin 81 mg DAILY PO 06/10/24 10:00 06/15/24 12:56 81 MG Acetylcysteine 100 mg Q8HR NEB 06/09/24 22:00 06/16/24 06:43 100 MG Nicardipine HCl 50 mg/Sodium Chloride 250 ml @ 25 mls/hr Q10H IV 06/12/24 13:45 06/15/24 19:46 25 MLS/HR Carvedilol 25 mg Q12HR PO 06/13/24 22:00 06/15/24 23:07 25 MG Amlodipine Besylate 10 mg DAILY GT 06/14/24 20:00 06/15/24 12:56 10 MG Enteral Nutritional Formula 1,000 ml 40ML/HR GT 06/15/24 09:15 06/15/24 15:57 1,000 ML Hydralazine HCl 50 mg Q6HR PO 06/15/24 12:00 06/15/24 18:33 50 MG Ceftriaxone Sodium/Dextrose 50 ml @ 50 mls/hr DAILY@2100 IV 06/15/24 21:00 06/15/24 23:09 50 MLS/HR Propofol 100 ml @ 4.398 mls/ hr [id number] IV 06/15/24 21:00 06/16/24 05:53 13.194 MLS/HR objective The patient is well-nourished and well-developed with no distress. The patient is intubated MENTAL STATUS: Subjective CRANIAL NERVES: Pupils are round and reactive, with a left-sided slightly bigger. There are spontaneous conjugated eye movement. No signs of facial weakness. There are gagging or coughing reflexes. SENSATION: Okay to strong painful stimuli MOTOR: Normal tone in the upper and lower extremity. Normal muscle bulk. No fasciculations. No spontaneous movement REFLEXES: Deep tendon reflexes are symmetrical. No pathological reflexes. CEREBELLAR/COORDINATION: Deferred GAIT/STATION: deferred. laboratory and microbiology Laboratory Tests 06/16/24 03:12 Test 06/16/24 03:12 Range/Units Serum Glucose 88 74-106 mg/dL Problem List Altered mental status/Coma Hypoxic encephalopathy secondary to respiratory failure Metabolic encephalopathy secondary to acidosis, sepsis, septic shock, kidney failure Multiple acute/subacute strokes Heart attack Pneumonia Sepsis, septic shock Acute on chronic kidney failure Acute petechial hemorrhage in the left frontal lobe, improving on follow-up CT Anisocoria, uncertain clinical significance Assessment/Plan Monitoring Supportive treatment ICU care Follow-up labs EEG SAMIR Stabilize vitals Respiratory support/vent management Oxygen IV antibiotics GI prophylaxis/Protonix DVT prophylaxis/heparin Nephrology on case Pulmonology on case Will discuss with her family More recommendation per clinical course This medical document was created using an electronic medical record system with [employer] dictation system. Although this document has been carefully reviewed, there may still be some phonetic and typographical errors. These areas are purely typographical due to imperfections of the software programs, and do not reflect any compromise in the patient's medical care Prognosis guarded Dietary Evaluation Review Comments: 1) If GI is accessible consider Jevity 1.2 @ 70ml/hr x 24hr continuous feed goal rate as tolerated 2) If pt remains NPO >7 days consider TPN to meet at least 75% of estimated needs 3) Advance pt diet when medically feasible to a 2gm Sodium diet modified per HIGH SCHOOL MATH TUTOR recommendations 4) Continue current plan of care Expected Outcomes/Goals: 1) Pt to receive nutrition support within 7 days of NPO status 2) Pt diet to advance 3) F/U in 2-3 days Plan discussed with: Other Critical Care Time(min): 30 PILAR HOOD MD Jun 16, 2024 09:33
--- NOTE | 2024-06-16 09:36 | DVHPN2 ---
Subjective Patient was encephalopathic, but opening eyes. Reviewed: Care Plan, H&P, Labs, Medications, Previous Orders, Radiology, Other Changes from previous H/P or p: No Changes General: Per HPI Objective Vitals Vital Signs Date Time Temp Pulse Resp B/P (MAP) Pulse Ox O2 Delivery O2 Flow Rate FiO2 06/16/24 07:48 70 22 100/51 (67) 100 30 06/16/24 07:00 98.8 209.8 06/15/24 20:00 Mechanical Ventilator+ Intake/Output Intake and Output 06/16/24 07:00 Intake Total 1179.858 ml Output Total 850 ml Balance 329.858 ml Intake Oral 90 ml IV Total 959.858 ml Tube Feeding 130 ml Output Urine Total 850 ml General Appearance: Other HEENT: Atraumatic, Other Lungs: Other Cardiovascular: Normal S1, Normal S2, Other Abdomen: Normal bowel sounds, Soft Genitourinary: Other Neuro: Other Skin: Dry, Intact Psych/Mental Status: Other Medications Current Medications Medications Dose Ordered Sig/Yousif Route Start Time Stop Time Status Last Admin Dose Admin Midazolam HCl 50 ml @ 1 mls/hr Q24H IV 05/25/24 06:30 05/29/24 09:11 5 MLS/HR Atorvastatin Calcium 40 mg HS NG 05/25/24 22:00 06/15/24 23:05 40 MG Ondansetron HCl 4 mg Q4HP PRN IV 05/25/24 10:45 Nitroglycerin 0.4 mg Q5MINP PRN SL 05/25/24 10:45 Albuterol 2.5 mg Q4HR NEB 05/25/24 14:00 06/16/24 06:43 2.5 MG Ipratropium [place] 0.5 mg Q4HR NEB 05/25/24 14:00 06/16/24 06:43 0.5 MG Fentanyl Citrate 250 ml @ 2.5 mls/hr Q24H IV 05/25/24 19:30 06/15/24 00:15 15 MLS/HR Ibuprofen 400 mg Q4HP PRN GT 05/26/24 01:15 05/26/24 01:42 400 MG Hydralazine HCl 10 mg Q6HP PRN IV 05/29/24 16:30 06/13/24 20:02 10 MG Pantoprazole Sodium 40 mg DAILY IV 05/30/24 10:00 06/15/24 12:59 40 MG Bumetanide 2 mg BIDD IV 05/30/24 18:00 06/16/24 05:58 2 MG Calcium Acetate 1,334 mg Q8HR GT 06/02/24 14:00 06/15/24 23:05 1,334 MG Aspirin 81 mg DAILY PO 06/10/24 10:00 06/15/24 12:56 81 MG Acetylcysteine 100 mg Q8HR NEB 06/09/24 22:00 06/16/24 06:43 100 MG Nicardipine HCl 50 mg/Sodium Chloride 250 ml @ 25 mls/hr Q10H IV 06/12/24 13:45 06/15/24 19:46 25 MLS/HR Carvedilol 25 mg Q12HR PO 06/13/24 22:00 06/15/24 23:07 25 MG Amlodipine Besylate 10 mg DAILY GT 06/14/24 20:00 06/15/24 12:56 10 MG Enteral Nutritional Formula 1,000 ml 40ML/HR GT 06/15/24 09:15 06/15/24 15:57 1,000 ML Hydralazine HCl 50 mg Q6HR PO 06/15/24 12:00 06/15/24 18:33 50 MG Ceftriaxone Sodium/Dextrose 50 ml @ 50 mls/hr DAILY@2100 IV 06/15/24 21:00 06/15/24 23:09 50 MLS/HR Propofol 100 ml @ 4.398 mls/ hr [id number] IV 06/15/24 21:00 06/16/24 05:53 13.194 MLS/HR Laboratory Results Laboratory Tests 06/16/24 03:12 Chemistry Test 06/15/24 11:15 06/16/24 03:12 Calcium Level 10.0 mg/dL (8.7-10.4) 10.5 mg/dL (8.7-10.4) H Phosphorus Level 5.0 mg/dL (2.4-5.1) 4.5 mg/dL (2.4-5.1) Albumin 3.3 g/dL (3.2-4.8) Magnesium Level 2.1 mg/dL (1.6-2.6) Total Protein 6.4 g/dL (5.7-8.2) Coagulation Test 06/16/24 03:12 Prothrombin Time 12.6 sec (9.3-11.8) H Prothrombin Time INR 1.21 (0.9-1.15) H Activated Partial Thromboplast Time 24.9 SEC (24.5-34.5) LFT Test 06/16/24 03:12 Alanine Aminotransferase (ALT) 81 U/L (7-40) H Alkaline Phosphatase 112 U/L (46-116) Aspartate Amino Transferase (AST) 35 U/L (13-40) Total Bilirubin 0.6 mg/dL (0.2-1.0) Urinalysis Test 05/25/24 08:30 05/28/24 01:30 Urine Color Yellow (Yellow) Urine Clarity Clear (Clear) Urine pH 7.5 (5.0-9.0) Urine Specific [place] 1.013 (1.001-1.035) Urine Protein 2+ (Negative) H Urine Ketones Negative (Negative) Urine Blood Negative /uL (Negative) Urine Nitrite Negative (Negative) Urine Bilirubin Negative (Negative) Urine Urobilinogen 8 mg/dL (Negative) H Urine Leukocyte Esterase Negative /uL (Negative) Urine RBC 5 /hpf (0 - 4) Urine WBC 1 /hpf (0 - 5) Urine Squamous Epithelial Cells Few /hpf (<5) Urine Bacteria None seen /hpf (None Seen) Urine Glucose Normal mg/dL (Normal) Urine Creatinine 248.25 mg/dL (30.0-125.0) H Urine Sodium 27 mmol/L (40-220) L Urine Total Protein 293.2 mg/dL (1-14) H Blood Gas Results Test 06/16/24 07:23 Arterial Blood pH 7.600 (7.350-7.450) FiO2 % 30.0 Microbiology Microbiology Date/Time Source Procedure Growth Status 06/09/24 17:21 Urine - [place] Urine Culture - Final Complete 06/07/24 10:50 Blood Blood Culture - Final NO GROWTH AFTER 5 DAYS OF INCUBATION. Complete 05/27/24 08:50 Nose MRSA Screen - Final Complete 05/25/24 06:50 Sputum Gram Stain - Final Complete 05/25/24 06:50 Respiratory Culture - Final Presumptive Tara albicans Complete Labs and/or images reviewed: Labs reviewed by me, Image(s) reviewed by me Assessment/Plan Assessment/Plan Impression: -severe sepsis with shock , Streptococcus pneumoniae -probable community-acquired pneumonia with Gram-positive cocci -sepsis with Gram-positive cocci -acute hypoxic respiratory failure with mechanical ventilation -obesity -acute kidney injury, anuric -NSTEMI, probably type 2 -hypoalbuminemia -? Angioedema -respiratory alkalosis Plan: Events: Patient had MRI of the brain yesterday which revealed multiple areas of embolic stroke. 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 Discussion made with Cardiology and Neurology. Long discussion made by myself with patient's son, Jc regarding findings and plan of care. It was also discussed that he will be given time to make decision regarding patient's plan of care after speaking with the neurologist for long-term prognosis of neurological status. Parent is in agreement. I will discuss with Jc today after Neurology speaks with him regarding tracheostomy, peg placement, tunneled hemodialysis catheter, as well as a PICC line and LTAC placement. -continue current antibiotics -bronchodilators -continue cefepime and Diflucan -change ventilator settings to AC 16, tidal volume 600, peep of 6 given respiratory alkalosis -nephrology consultation: HD -PUD, DVT prophylaxis -repeat labs, chest x-ray, ABG in a.m.. Critical care time spent with patient discussing and formulating plan of care: 90 minutes. This does not include time spent performing procedures. This medical document was created using an electronic medical record system with [employer] dictation system. Although this document has been carefully reviewed, there may still be some phonetic and typographical errors. These areas are purely typographical due to imperfections of the software programs, and do not reflect any compromise in the patient's medical care. Plan discussed with: Patient, Other (RN) My Orders Orders - OMAR PARK NP Procedure Category Date Status Time Ventilator Orders RT 06/16/24 Transmitted 08:28 Date of Service: Jun 16, 2024 Billing Provider: OMAR PARK NP Common Visit Codes: [id number] CARE 30-74 MIN OMAR PARK NP Jun 16, 2024 09:36
--- NOTE | 2024-06-16 09:50 | DVHPN2 ---
Progress Note Date Seen: Jun 16, 2024 Medical Necessity Reason Pt with a Central, PICC or Fol: Yes The following are medically ne: Central Line, Putnam Catheter Reason for putnam catheter: Strict I&O Subjective Review of Systems: RESPIRATORY:Abnormal Objective vital signs Vital Sign Date Time Temp Pulse Resp B/P (MAP) Pulse Ox O2 Delivery O2 Flow Rate FiO2 06/16/24 07:48 70 22 100/51 (67) 100 30 06/16/24 07:00 98.8 209.8 06/15/24 20:00 Mechanical Ventilator+ Total Intake and Output 06/15/24 06/15/24 06/16/24 15:00 23:00 07:00 Intake Total 422.5 ml 415.0 ml 342.358 ml Output Total 450 ml 400 ml Balance 422.5 ml -35.0 ml -57.642 ml medications Current Medications Medications Dose Ordered Sig/Yousif Route Start Time Stop Time Status Last Admin Dose Admin Midazolam HCl 50 ml @ 1 mls/hr Q24H IV 05/25/24 06:30 05/29/24 09:11 5 MLS/HR Atorvastatin Calcium 40 mg HS NG 05/25/24 22:00 06/15/24 23:05 40 MG Ondansetron HCl 4 mg Q4HP PRN IV 05/25/24 10:45 Nitroglycerin 0.4 mg Q5MINP PRN SL 05/25/24 10:45 Albuterol 2.5 mg Q4HR NEB 05/25/24 14:00 06/16/24 06:43 2.5 MG Ipratropium [place] 0.5 mg Q4HR NEB 05/25/24 14:00 06/16/24 06:43 0.5 MG Fentanyl Citrate 250 ml @ 2.5 mls/hr Q24H IV 05/25/24 19:30 06/15/24 00:15 15 MLS/HR Ibuprofen 400 mg Q4HP PRN GT 05/26/24 01:15 05/26/24 01:42 400 MG Hydralazine HCl 10 mg Q6HP PRN IV 05/29/24 16:30 06/13/24 20:02 10 MG Pantoprazole Sodium 40 mg DAILY IV 05/30/24 10:00 06/15/24 12:59 40 MG Bumetanide 2 mg BIDD IV 05/30/24 18:00 06/16/24 05:58 2 MG Calcium Acetate 1,334 mg Q8HR GT 06/02/24 14:00 06/15/24 23:05 1,334 MG Aspirin 81 mg DAILY PO 06/10/24 10:00 06/15/24 12:56 81 MG Acetylcysteine 100 mg Q8HR NEB 06/09/24 22:00 06/16/24 06:43 100 MG Nicardipine HCl 50 mg/Sodium Chloride 250 ml @ 25 mls/hr Q10H IV 06/12/24 13:45 06/15/24 19:46 25 MLS/HR Carvedilol 25 mg Q12HR PO 06/13/24 22:00 06/15/24 23:07 25 MG Amlodipine Besylate 10 mg DAILY GT 06/14/24 20:00 06/15/24 12:56 10 MG Enteral Nutritional Formula 1,000 ml 40ML/HR GT 06/15/24 09:15 06/15/24 15:57 1,000 ML Hydralazine HCl 50 mg Q6HR PO 06/15/24 12:00 06/15/24 18:33 50 MG Ceftriaxone Sodium/Dextrose 50 ml @ 50 mls/hr DAILY@2100 IV 06/15/24 21:00 06/15/24 23:09 50 MLS/HR Propofol 100 ml @ 4.398 mls/ hr [id number] IV 06/15/24 21:00 06/16/24 05:53 13.194 MLS/HR Examination: GENERAL:Abnormal, LUNGS:Abnormal, ABDOMEN:Abnormal laboratory and microbiology Laboratory Tests 06/16/24 03:12 Test 06/16/24 03:12 Range/Units Serum Glucose 88 74-106 mg/dL Microbiology Date/Time Source Procedure Growth Status 06/09/24 17:21 Urine - [place] Urine Culture - Final Complete 06/07/24 10:50 Blood Blood Culture - Final NO GROWTH AFTER 5 DAYS OF INCUBATION. Complete 05/27/24 08:50 Nose MRSA Screen - Final Complete 05/25/24 06:50 Sputum Gram Stain - Final Complete 05/25/24 06:50 Respiratory Culture - Final Presumptive Tara albicans Complete Problem List/Assessment/Plan Problem List/Assessment/Plan Acute kidney injury likely ATN on acute dialysis Unknown baseline septic shock Gram + bacteremia endocarditis septic emboli Morbid obesity Strept PNA Ventilator-dependent hypoxic respiratory failure HD treatment BP regime increase oral meds. po hydralazine, coreg, add norvasc po . taper off drip increase UOP continue diuretics fluid removal as tolerated monitor fluid balances and ABX renal function not improved rec tunnel HD for continued dialysis. rec goals of care discussions and advanced diretives custodial prognosis is poor critical care time 33mins Plan discussed with: Other My Orders My Orders Orders - TOMY VALVERDE MD Procedure Category Date Status Time Hydralazine Hcl PHA 06/15/24 In Process Tablet (Apresoline 12:00 Dialysis Nursing ROB 06/16/24 In Process Message 07:00 Document Fluid Input ROB 06/16/24 In Process And Outpu 07:00 Hemodialysis Orders ORDERS 06/16/24 Transmitted 07:06 Dietary Evaluation Review Comments: 1) If GI is accessible consider Jevity 1.2 @ 70ml/hr x 24hr continuous feed goal rate as tolerated 2) If pt remains NPO >7 days consider TPN to meet at least 75% of estimated needs 3) Advance pt diet when medically feasible to a 2gm Sodium diet modified per PUBLIC ADDRESS ANNOUNCER recommendations 4) Continue current plan of care Expected Outcomes/Goals: 1) Pt to receive nutrition support within 7 days of NPO status 2) Pt diet to advance 3) F/U in 2-3 days TOMY VALVERDE MD Jun 16, 2024 09:50
[2024-06-16] MEDS: SODIUM CHL 0.9% 1000 ML BAG XX ONE (10:35)
[2024-06-16] MEDS: ALBUMIN 25% 200 ML IV ONE (11:00)
--- NOTE | 2024-06-16 11:00 | DVHPN2 ---
Consult Progress Note Date Seen: Jun 16, 2024 Subjective Other Systems: Notified of ST depression on monitor Objective vital signs Vital Sign Date Time Temp Pulse Resp B/P (MAP) Pulse Ox O2 Delivery O2 Flow Rate FiO2 06/16/24 10:28 77 22 120/54 (76) 100 30 06/16/24 07:00 98.8 209.8 06/15/24 20:00 Mechanical Ventilator+ Total Intake and Output 06/15/24 06/15/24 06/16/24 15:00 23:00 07:00 Intake Total 422.5 ml 415.0 ml 342.358 ml Output Total 450 ml 400 ml Balance 422.5 ml -35.0 ml -57.642 ml medications Current Medications Medications Dose Ordered Sig/Yousif Route Start Time Stop Time Status Last Admin Dose Admin Midazolam HCl 50 ml @ 1 mls/hr Q24H IV 05/25/24 06:30 05/29/24 09:11 5 MLS/HR Atorvastatin Calcium 40 mg HS NG 05/25/24 22:00 06/15/24 23:05 40 MG Ondansetron HCl 4 mg Q4HP PRN IV 05/25/24 10:45 Nitroglycerin 0.4 mg Q5MINP PRN SL 05/25/24 10:45 Albuterol 2.5 mg Q4HR NEB 05/25/24 14:00 06/16/24 10:27 2.5 MG Ipratropium [place] 0.5 mg Q4HR NEB 05/25/24 14:00 06/16/24 10:27 0.5 MG Fentanyl Citrate 250 ml @ 2.5 mls/hr Q24H IV 05/25/24 19:30 06/15/24 00:15 15 MLS/HR Ibuprofen 400 mg Q4HP PRN GT 05/26/24 01:15 05/26/24 01:42 400 MG Hydralazine HCl 10 mg Q6HP PRN IV 05/29/24 16:30 06/13/24 20:02 10 MG Pantoprazole Sodium 40 mg DAILY IV 05/30/24 10:00 06/16/24 09:57 40 MG Bumetanide 2 mg BIDD IV 05/30/24 18:00 06/16/24 05:58 2 MG Calcium Acetate 1,334 mg Q8HR GT 06/02/24 14:00 06/15/24 23:05 1,334 MG Aspirin 81 mg DAILY PO 06/10/24 10:00 06/16/24 09:58 81 MG Acetylcysteine 100 mg Q8HR NEB 06/09/24 22:00 06/16/24 06:43 100 MG Nicardipine HCl 50 mg/Sodium Chloride 250 ml @ 25 mls/hr Q10H IV 06/12/24 13:45 06/15/24 19:46 25 MLS/HR Carvedilol 25 mg Q12HR PO 06/13/24 22:00 06/15/24 23:07 25 MG Amlodipine Besylate 10 mg DAILY GT 06/14/24 20:00 06/16/24 09:58 10 MG Enteral Nutritional Formula 1,000 ml 40ML/HR GT 06/15/24 09:15 06/15/24 15:57 1,000 ML Hydralazine HCl 50 mg Q6HR PO 06/15/24 12:00 06/15/24 18:33 50 MG Ceftriaxone Sodium/Dextrose 50 ml @ 50 mls/hr DAILY@2100 IV 06/15/24 21:00 06/15/24 23:09 50 MLS/HR Propofol 100 ml @ 4.398 mls/ hr [id number] IV 06/15/24 21:00 06/16/24 05:53 13.194 MLS/HR Examination: GENERAL:Abnormal, LUNGS:Abnormal (Mechanically ventilated with 30% FiO2), CVS:Abnormal (Sinus rhythm with ST segement depression, off Nicardipine drip), NEURO:Abnormal (Chemically sedated) laboratory and microbiology Laboratory Tests 06/16/24 03:12 Test 06/16/24 03:12 Range/Units Serum Glucose 88 74-106 mg/dL Problem List/Assessment/Plan Problem List/Assessment/Plan 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 Solo) * Echocardiogram revealed EF 40% with severe concentric LVH * GDMT for CHF as renal function permits. Currently on Coreg * Lipid-lowering agent and single-antiplatelet therapy * ASA therapy cleared by neurology team * Nephrology/Neurology/Infectious disease recommendations * DVT/VTE prophylaxis: SCDs Conservative management given abnormal neurological findings. Recommendations are for ID consultation for ABX therapy and length of therapy. Repeat echocardiogram within 1-2 months post-discharge. Follow-up with a primary Customer Logistics Manager on regular basis. Kindly call if in need to re-consult. Thank you for allowing us to care for this patient. Critical care time spent: 30 minutes. This medical document was created using an electronic medical record system with voice recognition software and computerized dictation system. Although this document has been carefully reviewed, there might still be some phonetic and typographical errors. Occasional wrong-word or ``sound-alike substitutions may have occurred due to the inherent limitations of voice recognition software. These areas are purely typographical due to imperfections of the software programs and do not reflect any compromise in the patient's medical care. Please read the chart carefully and recognize, using context, where these substitutions have occurred. Plan discussed with: Other Dietary Evaluation Review Comments: 1) If GI is accessible consider Jevity 1.2 @ 70ml/hr x 24hr continuous feed goal rate as tolerated 2) If pt remains NPO >7 days consider TPN to meet at least 75% of estimated needs 3) Advance pt diet when medically feasible to a 2gm Sodium diet modified per RESOURCE EFFICIENCY MANAGER recommendations 4) Continue current plan of care Expected Outcomes/Goals: 1) Pt to receive nutrition support within 7 days of NPO status 2) Pt diet to advance 3) F/U in 2-3 days Date of Service: Jun 16, 2024 Billing Provider: SARAH MONCADA Cardiology Common Codes: [id number] INP/OBS CARE(Mod) SARAH MONCADA Jun 16, 2024 11:00
[2024-06-16] MEDS: ALBUMIN 25% 100 ML IV PRN (11:05)
--- NOTE | 2024-06-16 23:46 | DVHPN2 ---
Progress Note - Dictate Date Seen: Jun 16, 2024 Medical Necessity Reason Pt with a Central, PICC or Fol: Yes The following are medically ne: Central Line, Putnam Catheter Reason for putnam catheter: Strict I&O Subjective Patient seen and examined at bedside. Sedated, intubated on mechanical ventilator. Overnight events reviewed. vital signs Vital Sign Date Time Temp Pulse Resp B/P (MAP) Pulse Ox O2 Delivery O2 Flow Rate FiO2 06/16/24 23:23 76 18 97/49 (65) 99 30 06/16/24 21:30 99.0 210.2 06/16/24 20:00 Mechanical Ventilator+ Total Intake and Output 06/15/24 06/15/24 06/16/24 15:00 23:00 07:00 Intake Total 422.5 ml 415.0 ml 360.552 ml Output Total 450 ml 400 ml Balance 422.5 ml -35.0 ml -39.448 ml medications Current Medications Medications Dose Ordered Sig/Yousif Route Start Time Stop Time Status Last Admin Dose Admin Midazolam HCl 50 ml @ 1 mls/hr Q24H IV 05/25/24 06:30 05/29/24 09:11 5 MLS/HR Atorvastatin Calcium 40 mg HS NG 05/25/24 22:00 06/16/24 22:08 40 MG Ondansetron HCl 4 mg Q4HP PRN IV 05/25/24 10:45 Nitroglycerin 0.4 mg Q5MINP PRN SL 05/25/24 10:45 Albuterol 2.5 mg Q4HR NEB 05/25/24 14:00 06/16/24 22:19 2.5 MG Ipratropium [place] 0.5 mg Q4HR NEB 05/25/24 14:00 06/16/24 22:19 0.5 MG Fentanyl Citrate 250 ml @ 2.5 mls/hr Q24H IV 05/25/24 19:30 06/15/24 00:15 15 MLS/HR Ibuprofen 400 mg Q4HP PRN GT 05/26/24 01:15 05/26/24 01:42 400 MG Hydralazine HCl 10 mg Q6HP PRN IV 05/29/24 16:30 06/13/24 20:02 10 MG Pantoprazole Sodium 40 mg DAILY IV 05/30/24 10:00 06/16/24 09:57 40 MG Bumetanide 2 mg BIDD IV 05/30/24 18:00 06/16/24 05:58 2 MG Calcium Acetate 1,334 mg Q8HR GT 06/02/24 14:00 06/16/24 22:09 1,334 MG Aspirin 81 mg DAILY PO 06/10/24 10:00 06/16/24 09:58 81 MG Acetylcysteine 100 mg Q8HR NEB 06/09/24 22:00 06/16/24 19:18 100 MG Nicardipine HCl 50 mg/Sodium Chloride 250 ml @ 25 mls/hr Q10H IV 06/12/24 13:45 06/15/24 19:46 25 MLS/HR Carvedilol 25 mg Q12HR PO 06/13/24 22:00 06/16/24 22:09 25 MG Amlodipine Besylate 10 mg DAILY GT 06/14/24 20:00 06/16/24 09:58 10 MG Enteral Nutritional Formula 1,000 ml 40ML/HR GT 06/15/24 09:15 06/15/24 15:57 1,000 ML Hydralazine HCl 50 mg Q6HR PO 06/15/24 12:00 06/15/24 18:33 50 MG Ceftriaxone Sodium/Dextrose 50 ml @ 50 mls/hr DAILY@2100 IV 06/15/24 21:00 06/16/24 22:08 50 MLS/HR Propofol 100 ml @ 4.398 mls/ hr [id number] IV 06/15/24 21:00 06/16/24 14:12 8.796 MLS/HR Albumin Human 100 ml @ 100 mls/hr PRN PRN IV 06/16/24 11:00 06/16/24 12:25 100 MLS/HR objective Gen.: Patient lying in bed in medical ICU. Sedated, intubated on mechanical ventilator. Head: Normocephalic, atraumatic. Eyes: PERRLA. Ears: Normal external anatomy. Throat: Endotracheal tube and orogastric tube in place. Neck: Supple, trachea midline. Chest: Transmitted breath sounds bilaterally. Decreased air entry bilaterally. No wheezing. Bibasilar crackles. Cardiovascular: Positive S1, positive S2. Regular rate and rhythm. Abdomen: Positive bowel sounds in all 4 quadrants. Soft, nontender, nondistended. : Putnam in place. Normal external genitalia. Rectal: Deferred. Skin: Warm, dry. Intact. Extremities: 2+ radial pulses bilaterally. No lower extremity edema. Neuro: Sedated laboratory and microbiology Laboratory Tests 06/16/24 03:12 Test 06/16/24 03:12 Range/Units Serum Glucose 88 74-106 mg/dL Assessment/Plan Impression: Acute hypoxic respiratory failure On mechanical ventilator Septic shock Elevated troponin Acute kidney injury Lactic acidosis Metabolic acidosis Multifocal pneumonia, likely gram negative Pulmonary edema AE COPD Events: On vent support On AC mode; RR 22 -->18, VT 600 -->550, PEEP 8, FiO2 30% CT head reviewed, reveals e/o multiple strokes. Neurology recommendations appreciated Nicardipine drip for BP control at 5 mg/hr. On Coreg Sedated on Propofol Fentanyl for analgesia ABG reviewed, notable for severe alkalemia CXR demonstrates diffuse multifocal consolidative opacities. Devices in place. Continue antibiotics Tube feeds for nutritional support Wound care Monitor hemoglobin Monitor renal function Monitor electrolytes, supplement as necessary Potassium supplementation Hemodialysis per Nephrology Nephrology recs appreciated. Echo showed EF of 40%. SBT/KAREN Awaiting for mentation to improve. Awaiting family decision for goals of care. Consider trach/PEG for liberation from vent if family wishes for aggressive care. Poor prognosis, poor chance of meaningful recovery CT head on 06/06/24 revealed the two foci of left frontal subcortical hemorrhage are less conspicuous - partially resolved. No new foci of hemorrhage. Neurology recs appreciated. Labs and imaging reviewed. Rest of plan as noted below. Plan: s/p intubation on mechanical ventilator. On AC mode; RR 18, VT 550, PEEP 8, FiO2 30% Titrate FIO2 to keep O2 saturation above 90%. VAP bundle. Daily ABG and CXR while intubated Sedated for vent synchrony Off pressors, hemodynamically stable. Continue bronchodilators. Continue antibiotics. F/u cultures. Pressors if necessary to maintain a mean arterial blood pressure greater than 65 mmHg. Cardiology recs appreciated. Monitor renal function Monitor electrolytes. Supplement as necessary. Monitor ins and outs. Nephrology recs appreciated. IV fluid hydration GI prophylaxis. DVT prophylaxis. Prognosis: Poor given patient's multiple co-morbidities. Condition: Critical Rest of plan per hospitalist and other consultants. A total of 35 minutes of critical care time was spent reviewing the patient record, examining the patient, making a diagnostic and therapeutic plan, discussing this plan with the medical personnel, following up on diagnostic studies and following the patient for clinical stability excluding any and all procedures. At least 50% of this time was spent in direct, [id number] contact. Thank you, EXPLORATION MANAGER Viral, for allowing me to participate in this patient's care. Further recommendations will depend on the patient's clinical course. Please do not hesitate to contact me if you have any questions or concerns. This medical document was created using an electronic medical record system with [employer] dictation system. Although these documentations are being carefully reviewed, there may still be some phonetic and typographical changes. The errors are purely typographical, due to imperfection on the software program, and do not reflect any compromise in the patient's medical care. Dietary Evaluation Review Comments: 1) If GI is accessible consider Jevity 1.2 @ 70ml/hr x 24hr continuous feed goal rate as tolerated 2) If pt remains NPO >7 days consider TPN to meet at least 75% of estimated needs 3) Advance pt diet when medically feasible to a 2gm Sodium diet modified per METER INSTALLER AND REMOVER recommendations 4) Continue current plan of care Expected Outcomes/Goals: 1) Pt to receive nutrition support within 7 days of NPO status 2) Pt diet to advance 3) F/U in 2-3 days Plan discussed with: Other (LUZMARIA Jones) Critical Care Time(min): 35 MELODY ELIZABETH MD Jun 16, 2024 23:46
[2024-06-17] VITALS (96 sets, daily range): BP systolic 83–198; BP diastolic 38–190; PULSE 48–85; RESP 4–25; TEMP 99–100.4; O2SAT 98–100
[2024-06-17 04:29] LABS: Basophils # (auto) 0 10 ^3/uL (0-0.2); Basophils % (auto) 0.6 % (0.0-2.0); Eosinophils # (auto) 0.3 10 ^3/uL (0-0.8); Eosinophils % (auto) 3.6 % (0.0-7.0); Hematocrit 27.1 % (36.0-46.0); Hemoglobin 8.7 g/dL (12.2-16.2); Lymphocytes # (auto) 1.2 10 ^3/uL (0.4-5.4); Lymphocytes % (auto) 16.4 % (10.0-50.0); Mean Corpuscular Hgb Conc. 32.1 g/dL (32.0-36.0); Mean Corpuscular Volume 93.4 fL (80.0-100.0); Monocytes # (auto) 1.1 10 ^3/uL (0-1.3); Monocytes % (auto) 14.5 % (0.0-12.0); Neutrophils # (auto) 4.8 10 ^3/uL (1.6-8.6); Neutrophils % (auto) 64.9 % (37.0-80.0); Nucleated Red Blood Cells % 0.2 %; Platelet Count (auto) 155 10^3/uL (140-450); Red Cell Distribution Width 16.6 % (11.8-14.3); White Blood Cell 7.4 10^3/uL (4.4-10.8)
[2024-06-17 04:36] LABS: Albumin 3.7 g/dL (3.2-4.8); Anion Gap 10 (5-15); BUN/Creatinine Ratio 13.1 (10.0-20.0); Calcium 10.4 mg/dL (8.7-10.4); Chloride 99 mmol/L (98-107); Magnesium 2.1 mg/dL (1.6-2.6); Sodium 141 mmol/L (136-145)
[2024-06-17 04:37] LABS: Bilirubin, Total 0.5 mg/dL (0.2-1.0); Phosphorus 3.9 mg/dL (2.4-5.1); Total Protein 6.7 g/dL (5.7-8.2)
[2024-06-17 04:40] LABS: Alanine Aminotransferase 168 U/L (7-40); Alkaline Phosphatase 126 U/L (46-116); Aspartate Aminotransferase 92 U/L (13-40); Blood Urea Nitrogen 44 mg/dL (9-23); Carbon Dioxide 32 mmol/L (20-31); Glucose 112 mg/dL (74-106)
--- NOTE | 2024-06-17 08:45 | DVHPN2 ---
Subjective Patient encephalopathic Reviewed: Care Plan, H&P, Labs, Medications, Previous Orders, Radiology, Other Changes from previous H/P or p: No Changes General: Per HPI Objective Vitals Vital Signs Date Time Temp Pulse Resp B/P (MAP) Pulse Ox O2 Delivery O2 Flow Rate FiO2 06/17/24 07:38 78 18 133/77 (95) 100 30 06/17/24 06:45 99.3 210.7 06/17/24 06:00 Mechanical Ventilator+ Intake/Output Intake and Output 06/17/24 07:00 Intake Total 1350.124 ml Output Total 175 ml Balance 1175.124 ml Intake Oral 180 ml IV Total 532.124 ml Tube Feeding 638 ml Output Urine Total 175 ml General Appearance: Other HEENT: Atraumatic, Other Lungs: Other Cardiovascular: Normal S1, Normal S2, Other Abdomen: Normal bowel sounds, Soft Genitourinary: Other Neuro: Other Skin: Dry, Intact Psych/Mental Status: Other Medications Current Medications Medications Dose Ordered Sig/Yousif Route Start Time Stop Time Status Last Admin Dose Admin Midazolam HCl 50 ml @ 1 mls/hr Q24H IV 05/25/24 06:30 05/29/24 09:11 5 MLS/HR Atorvastatin Calcium 40 mg HS NG 05/25/24 22:00 06/16/24 22:08 40 MG Ondansetron HCl 4 mg Q4HP PRN IV 05/25/24 10:45 Nitroglycerin 0.4 mg Q5MINP PRN SL 05/25/24 10:45 Albuterol 2.5 mg Q4HR NEB 05/25/24 14:00 06/17/24 06:16 2.5 MG Ipratropium [place] 0.5 mg Q4HR NEB 05/25/24 14:00 06/17/24 06:16 0.5 MG Fentanyl Citrate 250 ml @ 2.5 mls/hr Q24H IV 05/25/24 19:30 06/15/24 00:15 15 MLS/HR Ibuprofen 400 mg Q4HP PRN GT 05/26/24 01:15 05/26/24 01:42 400 MG Hydralazine HCl 10 mg Q6HP PRN IV 05/29/24 16:30 06/13/24 20:02 10 MG Pantoprazole Sodium 40 mg DAILY IV 05/30/24 10:00 06/16/24 09:57 40 MG Bumetanide 2 mg BIDD IV 05/30/24 18:00 06/17/24 06:28 2 MG Calcium Acetate 1,334 mg Q8HR GT 06/02/24 14:00 06/17/24 06:28 1,334 MG Aspirin 81 mg DAILY PO 06/10/24 10:00 06/16/24 09:58 81 MG Acetylcysteine 100 mg Q8HR NEB 06/09/24 22:00 06/17/24 06:16 100 MG Nicardipine HCl 50 mg/Sodium Chloride 250 ml @ 25 mls/hr Q10H IV 06/12/24 13:45 06/15/24 19:46 25 MLS/HR Carvedilol 25 mg Q12HR PO 06/13/24 22:00 06/16/24 22:09 25 MG Amlodipine Besylate 10 mg DAILY GT 06/14/24 20:00 06/16/24 09:58 10 MG Enteral Nutritional Formula 1,000 ml 40ML/HR GT 06/15/24 09:15 06/15/24 15:57 1,000 ML Hydralazine HCl 50 mg Q6HR PO 06/15/24 12:00 06/17/24 06:28 50 MG Ceftriaxone Sodium/Dextrose 50 ml @ 50 mls/hr DAILY@2100 IV 06/15/24 21:00 06/16/24 22:08 50 MLS/HR Propofol 100 ml @ 4.398 mls/ hr [id number] IV 06/15/24 21:00 06/17/24 02:46 4.398 MLS/HR Albumin Human 100 ml @ 100 mls/hr PRN PRN IV 06/16/24 11:00 06/16/24 12:25 100 MLS/HR Laboratory Results Laboratory Tests 06/17/24 03:00 Chemistry Test 06/17/24 03:00 Albumin 3.7 g/dL (3.2-4.8) Calcium Level 10.4 mg/dL (8.7-10.4) Magnesium Level 2.1 mg/dL (1.6-2.6) Phosphorus Level 3.9 mg/dL (2.4-5.1) Total Protein 6.7 g/dL (5.7-8.2) LFT Test 06/17/24 03:00 Alanine Aminotransferase (ALT) 168 U/L (7-40) H Alkaline Phosphatase 126 U/L (46-116) H Aspartate Amino Transferase (AST) 92 U/L (13-40) H Total Bilirubin 0.5 mg/dL (0.2-1.0) Urinalysis Test 05/25/24 08:30 05/28/24 01:30 Urine Color Yellow (Yellow) Urine Clarity Clear (Clear) Urine pH 7.5 (5.0-9.0) Urine Specific [place] 1.013 (1.001-1.035) Urine Protein 2+ (Negative) H Urine Ketones Negative (Negative) Urine Blood Negative /uL (Negative) Urine Nitrite Negative (Negative) Urine Bilirubin Negative (Negative) Urine Urobilinogen 8 mg/dL (Negative) H Urine Leukocyte Esterase Negative /uL (Negative) Urine RBC 5 /hpf (0 - 4) Urine WBC 1 /hpf (0 - 5) Urine Squamous Epithelial Cells Few /hpf (<5) Urine Bacteria None seen /hpf (None Seen) Urine Glucose Normal mg/dL (Normal) Urine Creatinine 248.25 mg/dL (30.0-125.0) H Urine Sodium 27 mmol/L (40-220) L Urine Total Protein 293.2 mg/dL (1-14) H Blood Gas Results Test 06/17/24 07:05 Arterial Blood pH 7.575 (7.350-7.450) FiO2 % 30.0 Microbiology Microbiology Date/Time Source Procedure Growth Status 06/09/24 17:21 Urine - [place] Urine Culture - Final Complete 06/07/24 10:50 Blood Blood Culture - Final NO GROWTH AFTER 5 DAYS OF INCUBATION. Complete 05/27/24 08:50 Nose MRSA Screen - Final Complete 05/25/24 06:50 Sputum Gram Stain - Final Complete 05/25/24 06:50 Respiratory Culture - Final Presumptive [place]ara albicans Complete Labs and/or images reviewed: Labs reviewed by me, Image(s) reviewed by me Assessment/Plan Assessment/Plan Impression: -severe sepsis with shock , Streptococcus pneumoniae -probable community-acquired pneumonia with Gram-positive cocci -sepsis with Gram-positive cocci -acute hypoxic respiratory failure with mechanical ventilation -obesity -acute kidney injury, anuric -NSTEMI, probably type 2 -hypoalbuminemia -? Angioedema on resolved -respiratory alkalosis -multifocal CVA -endocarditis Plan: Events: Discussed with Jc, patient was son yesterday regarding plan of care including the need for tracheostomy, peg tube placement, PICC line placement for IV antibiotic therapy for endocarditis, and possible tunneled hemodialysis catheter placement. At this time he was agreeing to PICC line placement, and wishes to speak with Neurology before consenting to of the procedures. -PICC line placement, discontinue right femoral central line access -continue current antibiotics -bronchodilators -antibiotic therapy per Infectious Disease -ventilator settings per hourly caregiver -nephrology consultation: HD -PUD, DVT prophylaxis -repeat labs, chest x-ray, ABG in a.m.. Critical care time spent with patient discussing and formulating plan of care: 90 minutes. This does not include time spent performing procedures. This medical document was created using an electronic medical record system with [employer] system. Although this document has been carefully reviewed, there may still be some phonetic and typographical errors. These areas are purely typographical due to imperfections of the software programs, and do not reflect any compromise in the patient's medical care. Plan discussed with: Patient, Son, Other (RN) My Orders Orders - OMAR PARK NP Procedure Category Date Status Time Ventilator Orders RT 06/16/24 Transmitted 19:21 Abg W/ Co-Ox RT 06/17/24 Logged 07:19 Basic Metabolic Panel LAB 06/18/24 Verified 04:00 Date of Service: Jun 17, 2024 Billing Provider: OMAR PARK NP Common Visit Codes: 08786-[id number] CARE 30-74 MIN, [id number] CARE-EACH +30MIN OMAR PARK NP Jun 17, 2024 08:45
--- NOTE | 2024-06-17 09:13 | DVHPN2 ---
Progress Note - Dictate Date Seen: Jun 17, 2024 Medical Necessity Reason Pt with a Central, PICC or Fol: Yes The following are medically ne: Central Line, Putnam Catheter Reason for putnam catheter: Strict I&O Subjective No acute events overnight. vital signs Vital Sign Date Time Temp Pulse Resp B/P (MAP) Pulse Ox O2 Delivery O2 Flow Rate FiO2 06/17/24 08:54 132/64 06/17/24 07:38 78 18 100 30 06/17/24 06:45 99.3 210.7 06/17/24 06:00 Mechanical Ventilator+ Total Intake and Output 06/16/24 06/16/24 06/17/24 15:00 23:00 07:00 Intake Total 349.164 ml 575.174 ml 425.786 ml Output Total 125 ml 50 ml Balance 349.164 ml 450.174 ml 375.786 ml medications Current Medications Medications Dose Ordered Sig/Yousif Route Start Time Stop Time Status Last Admin Dose Admin Midazolam HCl 50 ml @ 1 mls/hr Q24H IV 05/25/24 06:30 05/29/24 09:11 5 MLS/HR Atorvastatin Calcium 40 mg HS NG 05/25/24 22:00 06/16/24 22:08 40 MG Ondansetron HCl 4 mg Q4HP PRN IV 05/25/24 10:45 Nitroglycerin 0.4 mg Q5MINP PRN SL 05/25/24 10:45 Albuterol 2.5 mg Q4HR NEB 05/25/24 14:00 06/17/24 06:16 2.5 MG Ipratropium [place] 0.5 mg Q4HR NEB 05/25/24 14:00 06/17/24 06:16 0.5 MG Fentanyl Citrate 250 ml @ 2.5 mls/hr Q24H IV 05/25/24 19:30 06/15/24 00:15 15 MLS/HR Ibuprofen 400 mg Q4HP PRN GT 05/26/24 01:15 05/26/24 01:42 400 MG Hydralazine HCl 10 mg Q6HP PRN IV 05/29/24 16:30 06/13/24 20:02 10 MG Pantoprazole Sodium 40 mg DAILY IV 05/30/24 10:00 06/16/24 09:57 40 MG Bumetanide 2 mg BIDD IV 05/30/24 18:00 06/17/24 06:28 2 MG Calcium Acetate 1,334 mg Q8HR GT 06/02/24 14:00 06/17/24 06:28 1,334 MG Aspirin 81 mg DAILY PO 06/10/24 10:00 06/16/24 09:58 81 MG Acetylcysteine 100 mg Q8HR NEB 06/09/24 22:00 06/17/24 06:16 100 MG Nicardipine HCl 50 mg/Sodium Chloride 250 ml @ 25 mls/hr Q10H IV 06/12/24 13:45 06/15/24 19:46 25 MLS/HR Carvedilol 25 mg Q12HR PO 06/13/24 22:00 06/16/24 22:09 25 MG Enteral Nutritional Formula 1,000 ml 40ML/HR GT 06/15/24 09:15 06/15/24 15:57 1,000 ML Ceftriaxone Sodium/Dextrose 50 ml @ 50 mls/hr DAILY@2100 IV 06/15/24 21:00 06/16/24 22:08 50 MLS/HR Propofol 100 ml @ 4.398 mls/ hr [id number] IV 06/15/24 21:00 06/17/24 02:46 4.398 MLS/HR Albumin Human 100 ml @ 100 mls/hr PRN PRN IV 06/16/24 11:00 06/16/24 12:25 100 MLS/HR Hydralazine HCl 50 mg BID PO 06/17/24 10:00 UNV objective Gen: Patient lying in bed in medical ICU. Intubated on mechanical ventilator. Head: Normocephalic, atraumatic. Eyes: PERRLA. Ears: Normal external anatomy. Throat: Endotracheal tube and orogastric tube in place. Neck: Supple, trachea midline. Chest: Transmitted breath sounds bilaterally. Decreased air entry bilaterally. No wheezing. Bibasilar crackles. Cardiovascular: Positive S1, positive S2. Regular rate and rhythm. Abdomen: Positive bowel sounds in all 4 quadrants. Soft, nontender, nondistended. : Putnam in place. Normal external genitalia. Rectal: Deferred. Skin: Warm, dry. Intact. Extremities: 2+ radial pulses bilaterally. No lower extremity edema. 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 Recommend for 6 weeks due to endocarditis. Discontinued Cefepime IV [Started on 05/27] Doxycycline Hyclate [Started on 06/09 - 06/14] reviewed cultures see HPI Critical time 35 minutes spent. prognosis guarded Primary team is having difficult time waking her up and extubate, she is currently ventilator dependent Thank you for consult. Dietary Evaluation Review Comments: 1) If GI is accessible consider Jevity 1.2 @ 70ml/hr x 24hr continuous feed goal rate as tolerated 2) If pt remains NPO >7 days consider TPN to meet at least 75% of estimated needs 3) Advance pt diet when medically feasible to a 2gm Sodium diet modified per STRUCTURAL TEST ENGINEER recommendations 4) Continue current plan of care Expected Outcomes/Goals: 1) Pt to receive nutrition support within 7 days of NPO status 2) Pt diet to advance 3) F/U in 2-3 days Plan discussed with: JUNG Roblero MD Jun 17, 2024 09:13
--- NOTE | 2024-06-17 10:27 | DVHPN2 ---
Progress Note - Dictate Date Seen: Jun 17, 2024 Medical Necessity Reason Pt with a Central, PICC or Fol: Yes The following are medically ne: Central Line, Putnam Catheter Reason for putnam catheter: Strict I&O Subjective Ms. Pandya is a 53 years old right-handed female with a history of morbid obesity, hypertension, the patient was was brought to the [facility] on 05/25/24 with a chief company of altered mental status, respiratory distress. I have seen and examined the patient, I have talked to her nurse. She does not respond to light touch, verbal stimuli. When I open her eyes, I saw conjugated rolling eye movement I have discussed with his son last evening, and talked to his boyfriend in the morning No spontaneous extremity movement Fentanyl 75 mcg/hour, propofol 15 mcg/minute Urine culture, 05/25/2024: Negative Blood culture, 05/25/2024: Streptococcus pneumoniae UDS, 05/25/2024: Negative Urinalysis, 05/25/2024: WBC: 1, urine leukocyte esterase: Negative ABG, 05/25/2024: Metabolic acidosis, hypoxia, 05/26/2024: Metabolic acidosis, hypoxia, 05/27/24: Metabolic acidosis, hypoxia WBC/HB/PLT/MCV, 06/02/2024: 22.4/9/342/89.4 06/09/2024: 19.6/9.4/235/91.6, 06/12/2024: 8.2/9.2/205/90.6 BUN/CR, 05/26/2024: 62/7.01 06/02/2024: 123/6.59, 06/09/2024: 137/6.32, 06/12/2024: 71/4.33 HGB A1c, 05/25/2024: 5.6 Lactic acid, 05/25/2024: 3.6, 4.6, 4.2, 05/26/2024: 3.6 Troponin one high sensitivity, 05/25/2024: 1060, 1354, 1262 TBI/AST/ALT/AP, 05/26/2024: 2/246/167/98, 06/07/2024: 0.9/139/464/93 TG/HDL/LDL/HDL, 05/25/2024: 192/98/40/8 Vitamin B12, 06/02/2024: 836 TSH, 05/25/2024: 0.57 SAMIR, 06/15/2024: Vegetation anterior mitral leaflet Carotid Doppler, 06/15/2024: 1. There is no hemodynamically significant stenosis in the right common carotid and internal carotid arteries. There is elevated peak systolic velocity in the right external carotid artery. 2. Nonvisualization of the left carotid and vertebral arteries secondary to overlying bandage. Consider further evaluation with CTA neck Chest x-ray, 05/25/2024: 1. Distal tip of the endotracheal tube is approximately 5.5 cm above the level of the nik. 2. Poorly visualized enteric tube at its distal aspect. Appears to reach the gastroesophageal junction, although not visualized distal to this point. Correlate with clinical findings. 3. Bilateral airspace opacities and interstitial opacities, may be due to multifocal pneumonia or pulmonary edema in the appropriate clinical setting CT head, 05/25/2024: No gross acute intracranial process CT head, 06/02/24: 1. Interval development of 2 foci of subcortical parenchymal hemorrhage in the left frontal lobe. No mass effect or midline shift. 2. Moderate amount of fluid in the posterior nasopharynx likely related to intubation. Recommend suctioning to prevent aspiration. 3. Small bilateral mastoid effusions. We are in the process of reaching out to the nurse or physician in charge of the patient to convey the findings. CT head, 06/04/2024: Redemonstrated are 2 hyperdense foci in the subcortical left frontal lobe which may represent small foci of parenchymal hemorrhage. There is no significant surrounding edema or associated mass effect CT head, 06/06/2024: The 2 foci of left frontal subcortical hemorrhage are less conspicuous in the current exam partially resolved. No new foci of hemorrhage MR head, 06/15/2024: Extensive periventricular and deep white matter signal abnormality most of which is likely chronic. Possible small focus of subacute ischemia in the right periventricular region. No definite acute intracranial hemorrhage on MRI. Clinical correlation and continued follow-up is recommended. vital signs Vital Sign Date Time Temp Pulse Resp B/P (MAP) Pulse Ox O2 Delivery O2 Flow Rate FiO2 06/17/24 10:07 74 18 132/68 (89) 100 30 06/17/24 08:00 Mechanical Ventilator+ 06/17/24 06:45 99.3 210.7 Total Intake and Output 06/16/24 06/16/24 06/17/24 15:00 23:00 07:00 Intake Total 349.164 ml 575.174 ml 425.786 ml Output Total 125 ml 50 ml Balance 349.164 ml 450.174 ml 375.786 ml medications Current Medications Medications Dose Ordered Sig/Yousif Route Start Time Stop Time Status Last Admin Dose Admin Midazolam HCl 50 ml @ 1 mls/hr Q24H IV 05/25/24 06:30 05/29/24 09:11 5 MLS/HR Atorvastatin Calcium 40 mg HS NG 05/25/24 22:00 06/16/24 22:08 40 MG Ondansetron HCl 4 mg Q4HP PRN IV 05/25/24 10:45 Nitroglycerin 0.4 mg Q5MINP PRN SL 05/25/24 10:45 Albuterol 2.5 mg Q4HR NEB 05/25/24 14:00 06/17/24 10:07 2.5 MG Ipratropium [place] 0.5 mg Q4HR NEB 05/25/24 14:00 06/17/24 10:07 0.5 MG Fentanyl Citrate 250 ml @ 2.5 mls/hr Q24H IV 05/25/24 19:30 06/15/24 00:15 15 MLS/HR Ibuprofen 400 mg Q4HP PRN GT 05/26/24 01:15 05/26/24 01:42 400 MG Hydralazine HCl 10 mg Q6HP PRN IV 05/29/24 16:30 06/13/24 20:02 10 MG Pantoprazole Sodium 40 mg DAILY IV 05/30/24 10:00 06/16/24 09:57 40 MG Bumetanide 2 mg BIDD IV 05/30/24 18:00 06/17/24 06:28 2 MG Calcium Acetate 1,334 mg Q8HR GT 06/02/24 14:00 06/17/24 06:28 1,334 MG Aspirin 81 mg DAILY PO 06/10/24 10:00 06/16/24 09:58 81 MG Acetylcysteine 100 mg Q8HR NEB 06/09/24 22:00 06/17/24 06:16 100 MG Nicardipine HCl 50 mg/Sodium Chloride 250 ml @ 25 mls/hr Q10H IV 06/12/24 13:45 06/15/24 19:46 25 MLS/HR Carvedilol 25 mg Q12HR PO 06/13/24 22:00 06/16/24 22:09 25 MG Enteral Nutritional Formula 1,000 ml 40ML/HR GT 06/15/24 09:15 06/15/24 15:57 1,000 ML Ceftriaxone Sodium/Dextrose 50 ml @ 50 mls/hr DAILY@2100 IV 06/15/24 21:00 06/16/24 22:08 50 MLS/HR Propofol 100 ml @ 4.398 mls/ hr [id number] IV 06/15/24 21:00 06/17/24 02:46 4.398 MLS/HR Albumin Human 100 ml @ 100 mls/hr PRN PRN IV 06/16/24 11:00 06/16/24 12:25 100 MLS/HR Hydralazine HCl 50 mg BID PO 06/17/24 10:00 objective The patient is well-nourished and well-developed with no distress. The patient is intubated MENTAL STATUS: Subjective CRANIAL NERVES: Pupils are round and reactive, with a left-sided slightly bigger. There are spontaneous conjugated eye movement. No signs of facial weakness. There are gagging or coughing reflexes. SENSATION: Okay to strong painful stimuli MOTOR: Normal tone in the upper and lower extremity. Normal muscle bulk. No fasciculations. No spontaneous movement REFLEXES: Deep tendon reflexes are symmetrical. No pathological reflexes. CEREBELLAR/COORDINATION: Deferred GAIT/STATION: deferred. laboratory and microbiology Laboratory Tests 06/17/24 03:00 Test 06/17/24 03:00 Range/Units Serum Glucose 112 H 74-106 mg/dL Problem List Altered mental status/Coma Hypoxic encephalopathy secondary to respiratory failure Metabolic encephalopathy secondary to acidosis, sepsis, septic shock, kidney failure Multiple acute/subacute strokes Heart attack Pneumonia Sepsis, septic shock Endocarditis Acute on chronic kidney failure Acute petechial hemorrhage in the left frontal lobe, improving on follow-up CT [place], uncertain clinical significance Assessment/Plan Monitoring Supportive treatment ICU care Follow-up labs EEG Stabilize vitals Respiratory support/vent management Oxygen IV antibiotics GI prophylaxis/Protonix DVT prophylaxis/heparin Nephrology on case Pulmonology on case Infectious diseases on case Will discuss with her family More recommendation per clinical course This medical document was created using an electronic medical record system with [employer] computerized dictation system. Although this document has been carefully reviewed, there may still be some phonetic and typographical errors. These areas are purely typographical due to imperfections of the software programs, and do not reflect any compromise in the patient's medical care Prognosis guarded Dietary Evaluation Review Comments: 1) If GI is accessible consider Jevity 1.2 @ 70ml/hr x 24hr continuous feed goal rate as tolerated 2) If pt remains NPO >7 days consider TPN to meet at least 75% of estimated needs 3) Advance pt diet when medically feasible to a 2gm Sodium diet modified per FELT MACHINE MECHANIC recommendations 4) Continue current plan of care Expected Outcomes/Goals: 1) Pt to receive nutrition support within 7 days of NPO status 2) Pt diet to advance 3) F/U in 2-3 days Plan discussed with: Other Critical Care Time(min): 5 PILAR HOOD MD Jun 17, 2024 10:27
[2024-06-17] MEDS: hydrALAZINE HCL 25 MG TAB PO SCH (10:43)
--- NOTE | 2024-06-17 15:40 | DVHPN2 ---
Progress Note Date Seen: Jun 17, 2024 Medical Necessity Reason Pt with a Central, PICC or Fol: Yes The following are medically ne: Central Line, [place]nam Catheter Reason for putnam catheter: Strict I&O Subjective Patient reports: Feels worse Review of Systems: RESPIRATORY:Abnormal, NEURO:Abnormal Objective vital signs Vital Sign Date Time Temp Pulse Resp B/P (MAP) Pulse Ox O2 Delivery O2 Flow Rate FiO2 06/17/24 13:42 65 18 95/45 (62) 100 30 06/17/24 12:15 Mechanical Ventilator+ 06/17/24 11:30 100.2 212.4 Total Intake and Output 06/16/24 06/16/24 06/17/24 15:00 23:00 07:00 Intake Total 349.164 ml 575.174 ml 435.184 ml Output Total 125 ml 50 ml Balance 349.164 ml 450.174 ml 385.184 ml medications Current Medications Medications Dose Ordered Sig/Yousif Route Start Time Stop Time Status Last Admin Dose Admin Midazolam HCl 50 ml @ 1 mls/hr Q24H IV 05/25/24 06:30 05/29/24 09:11 5 MLS/HR Atorvastatin Calcium 40 mg HS NG 05/25/24 22:00 06/16/24 22:08 40 MG Ondansetron HCl 4 mg Q4HP PRN IV 05/25/24 10:45 Nitroglycerin 0.4 mg Q5MINP PRN SL 05/25/24 10:45 Albuterol 2.5 mg Q4HR NEB 05/25/24 14:00 06/17/24 13:41 2.5 MG Ipratropium [place] 0.5 mg Q4HR NEB 05/25/24 14:00 06/17/24 13:41 0.5 MG Ibuprofen 400 mg Q4HP PRN GT 05/26/24 01:15 05/26/24 01:42 400 MG Hydralazine HCl 10 mg Q6HP PRN IV 05/29/24 16:30 06/13/24 20:02 10 MG Pantoprazole Sodium 40 mg DAILY IV 05/30/24 10:00 06/17/24 10:41 40 MG Bumetanide 2 mg BIDD IV 05/30/24 18:00 06/17/24 06:28 2 MG Calcium Acetate 1,334 mg Q8HR GT 06/02/24 14:00 06/17/24 14:35 1,334 MG Aspirin 81 mg DAILY PO 06/10/24 10:00 06/17/24 10:41 81 MG Acetylcysteine 100 mg Q8HR NEB 06/09/24 22:00 06/17/24 13:41 100 MG Nicardipine HCl 50 mg/Sodium Chloride 250 ml @ 25 mls/hr Q10H IV 06/12/24 13:45 06/15/24 19:46 25 MLS/HR Carvedilol 25 mg Q12HR PO 06/13/24 22:00 06/17/24 10:44 25 MG Enteral Nutritional Formula 1,000 ml 40ML/HR GT 06/15/24 09:15 06/15/24 15:57 1,000 ML Ceftriaxone Sodium/Dextrose 50 ml @ 50 mls/hr DAILY@2100 IV 06/15/24 21:00 06/16/24 22:08 50 MLS/HR Propofol 100 ml @ 4.398 mls/ hr [id number] IV 06/15/24 21:00 06/17/24 11:35 17.592 MLS/HR Albumin Human 100 ml @ 100 mls/hr PRN PRN IV 06/16/24 11:00 06/16/24 12:25 100 MLS/HR Hydralazine HCl 50 mg BID PO 06/17/24 10:00 06/17/24 10:43 50 MG Examination: GENERAL:Abnormal, LUNGS:Abnormal, ABDOMEN:Abnormal laboratory and microbiology Laboratory Tests 06/17/24 03:00 Test 06/17/24 03:00 Range/Units Serum Glucose 112 H 74-106 mg/dL Microbiology Date/Time Source Procedure Growth Status 06/09/24 17:21 Urine - [place] Urine Culture - Final Complete 06/07/24 10:50 Blood Blood Culture - Final NO GROWTH AFTER 5 DAYS OF INCUBATION. Complete 05/27/24 08:50 Nose MRSA Screen - Final Complete 05/25/24 06:50 Sputum Gram Stain - Final Complete 05/25/24 06:50 Respiratory Culture - Final Presumptive Tara albicans Complete Problem List/Assessment/Plan Problem List/Assessment/Plan Acute kidney injury likely ATN on acute dialysis Unknown baseline septic shock Gram + bacteremia endocarditis septic emboli Morbid obesity Strept PNA AMS Ventilator-dependent hypoxic respiratory failure HD treatment tomorrow BP regime increase oral meds. po hydralazine, coreg, norvasc po . taper off drip increase UOP continue diuretics fluid removal as tolerated monitor fluid balances and ABX renal function not improved rec tunnel HD for continued dialysis. ok for picc line prison prognosis is poor, family wishes to continue prison care trach, peg, picc, continued HD critical care time 33mins Plan discussed with: Other Dietary Evaluation Review Comments: 1) If GI is accessible consider Jevity 1.2 @ 70ml/hr x 24hr continuous feed goal rate as tolerated 2) If pt remains NPO >7 days consider TPN to meet at least 75% of estimated needs 3) Advance pt diet when medically feasible to a 2gm Sodium diet modified per MEDICAL SALES REPRESENTATIVE recommendations 4) Continue current plan of care Expected Outcomes/Goals: 1) Pt to receive nutrition support within 7 days of NPO status 2) Pt diet to advance 3) F/U in 2-3 days TOMY VALVERDE MD Jun 17, 2024 15:40
[2024-06-17] MEDS: fentaNYL Drip 2500mCg/250mlNS 250 ML IV ONE (17:12)
[2024-06-17] MEDS: LIDOCAINE 1% (LOCAL ANESTH.) PF 5ml SDV ID ONE (17:15)
[2024-06-17] MEDS: fentaNYL Drip 2500mCg/250mlNS 250 ML IV SCH (19:27)
[2024-06-17] MEDS: SODIUM CHLOR 0.9% PF (SALINE LOCK) 10ML VIAL/SYR IV SCH (21:41)
--- NOTE | 2024-06-17 23:11 | DVHPN2 ---
Progress Note - Dictate Date Seen: Jun 17, 2024 Medical Necessity Reason Pt with a Central, PICC or Fol: Yes The following are medically ne: Central Line, Putnam Catheter Reason for putnam catheter: Strict I&O Subjective Patient seen and examined at bedside. Sedated, intubated on mechanical ventilator. Overnight events reviewed. vital signs Vital Sign Date Time Temp Pulse Resp B/P (MAP) Pulse Ox O2 Delivery O2 Flow Rate FiO2 06/17/24 22:40 71 105/64 06/17/24 22:29 18 100 30 06/17/24 22:15 99.1 210.4 06/17/24 22:00 Mechanical Ventilator+ Total Intake and Output 06/16/24 06/16/24 06/17/24 15:00 23:00 07:00 Intake Total 349.164 ml 575.174 ml 435.184 ml Output Total 125 ml 50 ml Balance 349.164 ml 450.174 ml 385.184 ml medications Current Medications Medications Dose Ordered Sig/Yousif Route Start Time Stop Time Status Last Admin Dose Admin Midazolam HCl 50 ml @ 1 mls/hr Q24H IV 05/25/24 06:30 05/29/24 09:11 5 MLS/HR Atorvastatin Calcium 40 mg HS NG 05/25/24 22:00 06/17/24 21:40 40 MG Ondansetron HCl 4 mg Q4HP PRN IV 05/25/24 10:45 Nitroglycerin 0.4 mg Q5MINP PRN SL 05/25/24 10:45 Albuterol 2.5 mg Q4HR NEB 05/25/24 14:00 06/17/24 22:36 2.5 MG Ipratropium [place] 0.5 mg Q4HR NEB 05/25/24 14:00 06/17/24 22:36 0.5 MG Ibuprofen 400 mg Q4HP PRN GT 05/26/24 01:15 05/26/24 01:42 400 MG Hydralazine HCl 10 mg Q6HP PRN IV 05/29/24 16:30 06/13/24 20:02 10 MG Pantoprazole Sodium 40 mg DAILY IV 05/30/24 10:00 06/17/24 10:41 40 MG Bumetanide 2 mg BIDD IV 05/30/24 18:00 06/17/24 06:28 2 MG Calcium Acetate 1,334 mg Q8HR GT 06/02/24 14:00 06/17/24 21:39 1,334 MG Aspirin 81 mg DAILY PO 06/10/24 10:00 06/17/24 10:41 81 MG Acetylcysteine 100 mg Q8HR NEB 06/09/24 22:00 06/17/24 18:31 100 MG Nicardipine HCl 50 mg/Sodium Chloride 250 ml @ 25 mls/hr Q10H IV 06/12/24 13:45 06/15/24 19:46 25 MLS/HR Carvedilol 25 mg Q12HR PO 06/13/24 22:00 06/17/24 21:40 25 MG Enteral Nutritional Formula 1,000 ml 40ML/HR GT 06/15/24 09:15 06/17/24 22:59 1,000 ML Ceftriaxone Sodium/Dextrose 50 ml @ 50 mls/hr DAILY@2100 IV 06/15/24 21:00 06/17/24 20:47 50 MLS/HR Propofol 100 ml @ 4.398 mls/ hr [id number] IV 06/15/24 21:00 06/17/24 21:47 13.194 MLS/HR Albumin Human 100 ml @ 100 mls/hr PRN PRN IV 06/16/24 11:00 06/16/24 12:25 100 MLS/HR Hydralazine HCl 50 mg BID PO 06/17/24 10:00 06/17/24 21:39 50 MG Sodium Chloride 10 ml QSHIFT@10,22 IV 06/17/24 22:00 06/17/24 21:41 10 ML Fentanyl Citrate 250 ml @ 2.5 mls/hr Q24H IV 06/17/24 17:30 06/17/24 19:27 7.5 MLS/HR objective Gen.: Patient lying in bed in medical ICU. Sedated, intubated on mechanical ventilator. Head: Normocephalic, atraumatic. Eyes: PERRLA. Ears: Normal external anatomy. Throat: Endotracheal tube and orogastric tube in place. Neck: Supple, trachea midline. Chest: Transmitted breath sounds bilaterally. Decreased air entry bilaterally. No wheezing. Bibasilar crackles. Cardiovascular: Positive S1, positive S2. Regular rate and rhythm. Abdomen: Positive bowel sounds in all 4 quadrants. Soft, nontender, nondistended. : Putnam in place. Normal external genitalia. Rectal: Deferred. Skin: Warm, dry. Intact. Extremities: 2+ radial pulses bilaterally. No lower extremity edema. Neuro: Sedated laboratory and microbiology Laboratory Tests 06/17/24 03:00 Test 06/17/24 03:00 Range/Units Serum Glucose 112 H 74-106 mg/dL Assessment/Plan Impression: Acute hypoxic respiratory failure On mechanical ventilator Septic shock Elevated troponin Acute kidney injury Lactic acidosis Metabolic acidosis Multifocal pneumonia, likely gram negative Pulmonary edema AE COPD Events: On vent support On AC mode; RR 18, VT 550, PEEP 8, FiO2 30% CT head reviewed, reveals e/o multiple strokes. Neurology recommendations appreciated Pt does not tolerate taper in sedation - becomes hypertensive, requires nicardipine drip On Coreg Sedated on Propofol Fentanyl for analgesia ABG reviewed, notable for severe alkalemia CXR demonstrates diffuse multifocal consolidative opacities. Devices in place. Continue antibiotics Tube feeds for nutritional support Wound care Monitor hemoglobin Monitor renal function Monitor electrolytes, supplement as necessary Hemodialysis per Nephrology Nephrology recs appreciated. Echo showed EF of 40%. SBT/KAREN Awaiting for mentation to improve. Awaiting family decision for goals of care. Consider trach/PEG for liberation from vent if family wishes for aggressive care. Poor prognosis, poor chance of meaningful recovery CT head on 06/06/24 revealed the two foci of left frontal subcortical hemorrhage are less conspicuous - partially resolved. No new foci of hemorrhage. Neurology recs appreciated. Labs and imaging reviewed. Rest of plan as noted below. Plan: s/p intubation on mechanical ventilator. On AC mode; RR 18, VT 550, PEEP 8, FiO2 30% Titrate FIO2 to keep O2 saturation above 90%. VAP bundle. Daily ABG and CXR while intubated Sedated for vent synchrony Off pressors, hemodynamically stable. Continue bronchodilators. Continue antibiotics. F/u cultures. Pressors if necessary to maintain a mean arterial blood pressure greater than 65 mmHg. Cardiology recs appreciated. Monitor renal function Monitor electrolytes. Supplement as necessary. Monitor ins and outs. Nephrology recs appreciated. IV fluid hydration GI prophylaxis. DVT prophylaxis. Prognosis: Poor given patient's multiple co-morbidities. Condition: Critical Rest of plan per hospitalist and other consultants. A total of 35 minutes of critical care time was spent reviewing the patient record, examining the patient, making a diagnostic and therapeutic plan, discussing this plan with the medical personnel, following up on diagnostic studies and following the patient for clinical stability excluding any and all procedures. At least 50% of this time was spent in direct, [id number] contact. Thank you, ANIMAL HUSBANDRY WORKER Viral, for allowing me to participate in this patient's care. Further recommendations will depend on the patient's clinical course. Please do not hesitate to contact me if you have any questions or concerns. This medical document was created using an electronic medical record system with [employer] dictation system. Although these documentations are being carefully reviewed, there may still be some phonetic and typographical changes. The errors are purely typographical, due to imperfection on the software program, and do not reflect any compromise in the patient's medical care. Dietary Evaluation Review Comments: 1) If GI is accessible consider Jevity 1.2 @ 70ml/hr x 24hr continuous feed goal rate as tolerated 2) If pt remains NPO >7 days consider TPN to meet at least 75% of estimated needs 3) Advance pt diet when medically feasible to a 2gm Sodium diet modified per PLASTERER FOREMAN recommendations 4) Continue current plan of care Expected Outcomes/Goals: 1) Pt to receive nutrition support within 7 days of NPO status 2) Pt diet to advance 3) F/U in 2-3 days Plan discussed with: Other (LUZMARIA Grover) Critical Care Time(min): 35 MELODY ELIZABETH MD Jun 17, 2024 23:11
[2024-06-18] VITALS (111 sets, daily range): BP systolic 78–172; BP diastolic 41–151; PULSE 60–87; RESP 12–28; TEMP 98.6–100.2; O2SAT 95–100
[2024-06-18 04:04] LABS: Basophils # (auto) 0 10 ^3/uL (0-0.2); Eosinophils # (auto) 0.2 10 ^3/uL (0-0.8); Eosinophils % (auto) 3.2 % (0.0-7.0); Neutrophils # (auto) 5.2 10 ^3/uL (1.6-8.6); Nucleated Red Blood Cells % 0.1 %
[2024-06-18 04:06] LABS: Basophils % (auto) 0.5 % (0.0-2.0); Hematocrit 25.4 % (36.0-46.0); Hemoglobin 8.6 g/dL (12.2-16.2); Lymphocytes # (auto) 1.1 10 ^3/uL (0.4-5.4); Lymphocytes % (auto) 14.2 % (10.0-50.0); Mean Corpuscular Hemoglobin 31.4 pg (28.0-32.0); Mean Corpuscular Hgb Conc. 33.7 g/dL (32.0-36.0); Mean Corpuscular Volume 93.3 fL (80.0-100.0); Monocytes # (auto) 0.9 10 ^3/uL (0-1.3); Monocytes % (auto) 12.1 % (0.0-12.0); Platelet Count (auto) 160 10^3/uL (140-450); Red Blood Cells 2.72 10^6/uL (4.0-5.20); Red Cell Distribution Width 16.6 % (11.8-14.3); White Blood Cell 7.5 10^3/uL (4.4-10.8)
[2024-06-18 04:17] LABS: Anion Gap 11 (5-15); Carbon Dioxide 30 mmol/L (20-31); Chloride 99 mmol/L (98-107); Sodium 140 mmol/L (136-145)
[2024-06-18 04:18] LABS: Calcium 9.9 mg/dL (8.7-10.4)
[2024-06-18 04:23] LABS: Blood Urea Nitrogen 63 mg/dL (9-23); Glucose 97 mg/dL (74-106)
--- NOTE | 2024-06-18 05:20 | DVH ---
CHEST RADIOGRAPH Indication: VENTILATED Technique: Single frontal view of the chest was obtained Comparison: XY CHEST PORTABLE on DOS: 06/16/24 FINDINGS: Lines and Tubes: The endotracheal tube terminates 6.3 cm above nik. The enteric tube courses below the left hemidiaphragm and the tip extends outside the field of view. Left central venous catheter t erminates in the superior vena cava. Right PICC terminates in the superior vena cava. Lungs: Bilateral airspace disease is unchanged. Pleura: No effusion. No pneumothorax. Cardiomediastinal contours: Unremarkable Bones: No acute osseous abnormality. IMPRESSION: 1. No significant interval change in support lines and tubes and airspace disease.
--- NOTE | 2024-06-18 05:21 | DVH ---
Exam: US US GUIDED VASCULAR ACCESS Clinical History: PICC LINE PLACEMENT Comparison: US US GUIDED VASCULAR ACCESS on DOS: 05/27/24 Findings: Targeted sonographic evaluation of the right upper arm vein was obtained utilizing grayscale and colo r Doppler imaging. IMPRESSION: Sonographic assistance for central line placement. Please refer to procedural report for detailed fin dings.
[2024-06-18 06:15] LABS: Base Excess 2.5 mmol/L (-2.0-3.0)
[2024-06-18] MEDS: NOREPINEPHRINE 8 MG/250ML KIT 250 ML IV SCH (09:45)
[2024-06-18] MEDS: NOREPINEPHRINE 8 MG/250ML KIT 0 ML IV ONE (10:05)
--- NOTE | 2024-06-18 10:38 | DVHPN2 ---
Subjective Patient encephalopathic Reviewed: Care Plan, H&P, Labs, Medications, Previous Orders, Radiology, Other Changes from previous H/P or p: No Changes General: Per HPI Objective Vitals Vital Signs Date Time Temp Pulse Resp B/P (MAP) Pulse Ox O2 Delivery O2 Flow Rate FiO2 06/18/24 09:56 71 18 98/51 (67) 100 30 06/18/24 08:45 99.0 210.2 06/18/24 08:00 Mechanical Ventilator+ Intake/Output Intake and Output 06/18/24 07:00 Intake Total 1561.472 ml Output Total 200 ml Balance 1361.472 ml Intake Oral 120 ml IV Total 572.472 ml Tube Feeding 869 ml Output Urine Total 200 ml # Bowel Movements 1 General Appearance: Other HEENT: Atraumatic, Other Lungs: Other Cardiovascular: Normal S1, Normal S2, Other Abdomen: Normal bowel sounds, Soft Genitourinary: Other Neuro: Other Skin: Dry, Intact Psych/Mental Status: Other Medications Current Medications Medications Dose Ordered Sig/Yousif Route Start Time Stop Time Status Last Admin Dose Admin Midazolam HCl 50 ml @ 1 mls/hr Q24H IV 05/25/24 06:30 05/29/24 09:11 5 MLS/HR Atorvastatin Calcium 40 mg HS NG 05/25/24 22:00 06/17/24 21:40 40 MG Ondansetron HCl 4 mg Q4HP PRN IV 05/25/24 10:45 Nitroglycerin 0.4 mg Q5MINP PRN SL 05/25/24 10:45 Albuterol 2.5 mg Q4HR NEB 05/25/24 14:00 06/18/24 09:55 2.5 MG Ipratropium [place] 0.5 mg Q4HR NEB 05/25/24 14:00 06/18/24 09:55 0.5 MG Ibuprofen 400 mg Q4HP PRN GT 05/26/24 01:15 05/26/24 01:42 400 MG Hydralazine HCl 10 mg Q6HP PRN IV 05/29/24 16:30 06/13/24 20:02 10 MG Pantoprazole Sodium 40 mg DAILY IV 05/30/24 10:00 06/17/24 10:41 40 MG Bumetanide 2 mg BIDD IV 05/30/24 18:00 06/18/24 05:33 2 MG Calcium Acetate 1,334 mg Q8HR GT 06/02/24 14:00 06/18/24 05:32 1,334 MG Aspirin 81 mg DAILY PO 06/10/24 10:00 06/17/24 10:41 81 MG Acetylcysteine 100 mg Q8HR NEB 06/09/24 22:00 06/18/24 06:06 100 MG Nicardipine HCl 50 mg/Sodium Chloride 250 ml @ 25 mls/hr Q10H IV 06/12/24 13:45 06/15/24 19:46 25 MLS/HR Carvedilol 25 mg Q12HR PO 06/13/24 22:00 06/17/24 21:40 25 MG Enteral Nutritional Formula 1,000 ml 40ML/HR GT 06/15/24 09:15 06/17/24 22:59 1,000 ML Ceftriaxone Sodium/Dextrose 50 ml @ 50 mls/hr DAILY@2100 IV 06/15/24 21:00 06/17/24 20:47 50 MLS/HR Propofol 100 ml @ 4.398 mls/ hr [id number] IV 06/15/24 21:00 06/18/24 04:09 13.194 MLS/HR Albumin Human 100 ml @ 100 mls/hr PRN PRN IV 06/16/24 11:00 06/16/24 12:25 100 MLS/HR Hydralazine HCl 50 mg BID PO 06/17/24 10:00 06/17/24 21:39 50 MG Sodium Chloride 10 ml QSHIFT@10,22 IV 06/17/24 22:00 06/17/24 21:41 10 ML Fentanyl Citrate 250 ml @ 2.5 mls/hr Q24H IV 06/17/24 17:30 06/17/24 19:27 7.5 MLS/HR Norepinephrine Bitartrate 250 ml @ 3.75 mls/hr Q24H IV 06/18/24 09:45 Laboratory Results Laboratory Tests 06/18/24 03:15 Chemistry Test 06/18/24 03:15 Calcium Level 9.9 mg/dL (8.7-10.4) Urinalysis Test 05/25/24 08:30 05/28/24 01:30 Urine Color Yellow (Yellow) Urine Clarity Clear (Clear) Urine pH 7.5 (5.0-9.0) Urine Specific [place] 1.013 (1.001-1.035) Urine Protein 2+ (Negative) H Urine Ketones Negative (Negative) Urine Blood Negative /uL (Negative) Urine Nitrite Negative (Negative) Urine Bilirubin Negative (Negative) Urine Urobilinogen 8 mg/dL (Negative) H Urine Leukocyte Esterase Negative /uL (Negative) Urine RBC 5 /hpf (0 - 4) Urine WBC 1 /hpf (0 - 5) Urine Squamous Epithelial Cells Few /hpf (<5) Urine Bacteria None seen /hpf (None Seen) Urine Glucose Normal mg/dL (Normal) Urine Creatinine 248.25 mg/dL (30.0-125.0) H Urine Sodium 27 mmol/L (40-220) L Urine Total Protein 293.2 mg/dL (1-14) H Blood Gas Results Test 06/18/24 06:09 Arterial Blood pH 7.455 (7.350-7.450) FiO2 % 30.0 Microbiology Microbiology Date/Time Source Procedure Growth Status 06/09/24 17:21 Urine - [place] Urine Culture - Final Complete 06/07/24 10:50 Blood Blood Culture - Final NO GROWTH AFTER 5 DAYS OF INCUBATION. Complete 05/27/24 08:50 Nose MRSA Screen - Final Complete 05/25/24 06:50 Sputum Gram Stain - Final Complete 05/25/24 06:50 Respiratory Culture - Final Presumptive Tara albicans Complete Labs and/or images reviewed: Labs reviewed by me, Image(s) reviewed by me Assessment/Plan Assessment/Plan Impression: -severe sepsis with shock , Streptococcus pneumoniae -probable community-acquired pneumonia with Gram-positive cocci -sepsis with Gram-positive cocci -acute hypoxic respiratory failure with mechanical ventilation -obesity -acute kidney injury, anuric -NSTEMI, probably type 2 -hypoalbuminemia -? Angioedema on resolved -respiratory alkalosis -multifocal CVA -endocarditis Plan: Events: Discussed tracheostomy, peg placement, PermCath placement with patient's son, Jc. He was agreeable. -surgical consultation for tracheostomy -Radiology consultation for PermCath placement -GI consultation for PEG tube placement -PICC line placement, discontinue right femoral central line access -continue current antibiotics -bronchodilators -antibiotic therapy per Infectious Disease -ventilator settings per explosive ordnance disposal manager -nephrology consultation: HD -PUD, DVT prophylaxis -repeat labs, chest x-ray, ABG in a.m.. Critical care time spent with patient discussing and formulating plan of care: 40 minutes. This does not include time spent performing procedures. This medical document was created using an electronic medical record system with [employer] dictation system. Although this document has been carefully reviewed, there may still be some phonetic and typographical errors. These areas are purely typographical due to imperfections of the software programs, and do not reflect any compromise in the patient's medical care. Plan discussed with: Patient, Other (RN) My Orders Orders - OMAR PARK NP Procedure Category Date Status Time Us Guided Vascular US 06/17/24 Resulted Access 17:01 Nursing Protocol Picc ROB 06/17/24 In Process 17:01 Change Dressing Prn ROB 06/17/24 In Process 17:01 Sodium Chloride Lock PHA 06/17/24 In Process (Saline Lock Ns) 22:00 Do Not Use Picc For ROB 06/17/24 In Process Blood Cult 17:01 May Draw Blood From ROB 06/17/24 In Process Picc 17:01 Ok To Use Picc ROB 06/17/24 In Process 17:01 Change Picc Dressing ROB 06/17/24 In Process Q7 Days 17:01 Abg W/ Co-Ox RT 06/18/24 Logged 05:18 Basic Metabolic Panel LAB 06/19/24 Verified 05:00 Basic Metabolic Panel LAB 06/20/24 Verified 05:00 Basic Metabolic Panel LAB 06/21/24 Verified 05:00 Basic Metabolic Panel LAB 06/22/24 Verified 05:00 Basic Metabolic Panel LAB 06/23/24 Verified 05:00 * Surgical Consult CONS 06/18/24 Verified * Radiologist Consult CONS 06/18/24 Verified 10:34 * Gi Dvh City Planning Teacher CONS 06/18/24 Verified 10:34 Date of Service: Jun 18, 2024 Billing Provider: OMAR PARK NP Common Visit Codes: [id number] CARE 30-74 MIN OMAR PARK NP Jun 18, 2024 10:38
[2024-06-18] MEDS: SODIUM CHL 0.9% 1000 ML BAG XX ONE (11:13)
--- NOTE | 2024-06-18 17:54 | DVHPN2 ---
Progress Note - Dictate Date Seen: Jun 18, 2024 Medical Necessity Reason Pt with a Central, PICC or Fol: Yes The following are medically ne: Central Line, Putnam Catheter Reason for putnam catheter: Strict I&O Subjective Ms. Pandya is a 53 years old right-handed female with a history of morbid obesity, hypertension, the patient was was brought to the [facility] on 05/25/24 with a chief company of altered mental status, respiratory distress. I have seen and examined the patient, I have talked to her nurse. She is slight responds to stroke painful stimuli, she was spontaneous rolling eye movement when the eyes are possibly opened No spontaneous extremity movement Fentanyl 50 mcg/hour Urine culture, 05/25/2024: Negative Blood culture, 05/25/2024: Streptococcus pneumoniae UDS, 05/25/2024: Negative Urinalysis, 05/25/2024: WBC: 1, urine leukocyte esterase: Negative ABG, 05/25/2024: Metabolic acidosis, hypoxia, 05/26/2024: Metabolic acidosis, hypoxia, 05/27/24: Metabolic acidosis, hypoxia WBC/HB/PLT/MCV, 06/02/2024: 22.4/9/342/89.4 06/09/2024: 19.6/9.4/235/91.6, 06/12/2024: 8.2/9.2/205/90.6 BUN/CR, 05/26/2024: 62/7.01 06/02/2024: 123/6.59, 06/09/2024: 137/6.32, 06/12/2024: 71/4.33 HGB A1c, 05/25/2024: 5.6 Lactic acid, 05/25/2024: 3.6, 4.6, 4.2, 05/26/2024: 3.6 Troponin one high sensitivity, 05/25/2024: 1060, 1354, 1262 TBI/AST/ALT/AP, 05/26/2024: 2/246/167/98, 06/07/2024: 0.9/139/464/93 TG/HDL/LDL/HDL, 05/25/2024: 192/98/40/8 Vitamin B12, 06/02/2024: 836 TSH, 05/25/2024: 0.57 SAMIR, 06/15/2024: Vegetation anterior mitral leaflet Carotid Doppler, 06/15/2024: 1. There is no hemodynamically significant stenosis in the right common carotid and internal carotid arteries. There is elevated peak systolic velocity in the right external carotid artery. 2. Nonvisualization of the left carotid and vertebral arteries secondary to overlying bandage. Consider further evaluation with CTA neck Chest x-ray, 05/25/2024: 1. Distal tip of the endotracheal tube is approximately 5.5 cm above the level of the nik. 2. Poorly visualized enteric tube at its distal aspect. Appears to reach the gastroesophageal junction, although not visualized distal to this point. Correlate with clinical findings. 3. Bilateral airspace opacities and interstitial opacities, may be due to multifocal pneumonia or pulmonary edema in the appropriate clinical setting CT head, 05/25/2024: No gross acute intracranial process CT head, 06/02/24: 1. Interval development of 2 foci of subcortical parenchymal hemorrhage in the left frontal lobe. No mass effect or midline shift. 2. Moderate amount of fluid in the posterior nasopharynx likely related to intubation. Recommend suctioning to prevent aspiration. 3. Small bilateral mastoid effusions. We are in the process of reaching out to the nurse or physician in charge of the patient to convey the findings. CT head, 06/04/2024: Redemonstrated are 2 hyperdense foci in the subcortical left frontal lobe which may represent small foci of parenchymal hemorrhage. There is no significant surrounding edema or associated mass effect CT head, 06/06/2024: The 2 foci of left frontal subcortical hemorrhage are less conspicuous in the current exam partially resolved. No new foci of hemorrhage MR head, 06/15/2024: Extensive periventricular and deep white matter signal abnormality most of which is likely chronic. Possible small focus of subacute ischemia in the right periventricular region. No definite acute intracranial hemorrhage on MRI. Clinical correlation and continued follow-up is recommended. vital signs Vital Sign Date Time Temp Pulse Resp B/P (MAP) Pulse Ox O2 Delivery O2 Flow Rate FiO2 06/18/24 16:45 100.2 81 22 141/64 (89) 99 212.4 131/72 (91) 06/18/24 16:24 30 06/18/24 16:00 Mechanical Ventilator+ Total Intake and Output 106/17/24 06/18/24 15:00 23:00 07:00 Intake Total 243.236 ml 658.378 ml 680.552 ml Output Total 125 ml 75 ml Balance 243.236 ml 533.378 ml 605.552 ml medications Current Medications Medications Dose Ordered Sig/Yousif Route Start Time Stop Time Status Last Admin Dose Admin Midazolam HCl 50 ml @ 1 mls/hr Q24H IV 05/25/24 06:30 05/29/24 09:11 5 MLS/HR Atorvastatin Calcium 40 mg HS NG 05/25/24 22:00 06/17/24 21:40 40 MG Ondansetron HCl 4 mg Q4HP PRN IV 05/25/24 10:45 Nitroglycerin 0.4 mg Q5MINP PRN SL 05/25/24 10:45 Albuterol 2.5 mg Q4HR NEB 05/25/24 14:00 06/18/24 13:19 2.5 MG Ipratropium [place] 0.5 mg Q4HR NEB 05/25/24 14:00 06/18/24 13:18 0.5 MG Ibuprofen 400 mg Q4HP PRN GT 05/26/24 01:15 05/26/24 01:42 400 MG Hydralazine HCl 10 mg Q6HP PRN IV 05/29/24 16:30 06/13/24 20:02 10 MG Pantoprazole Sodium 40 mg DAILY IV 05/30/24 10:00 06/18/24 11:26 40 MG Bumetanide 2 mg BIDD IV 05/30/24 18:00 06/18/24 05:33 2 MG Calcium Acetate 1,334 mg Q8HR GT 06/02/24 14:00 06/18/24 14:12 1,334 MG Aspirin 81 mg DAILY PO 06/10/24 10:00 06/18/24 11:26 81 MG Acetylcysteine 100 mg Q8HR NEB 06/09/24 22:00 06/18/24 13:18 100 MG Nicardipine HCl 50 mg/Sodium Chloride 250 ml @ 25 mls/hr Q10H IV 06/12/24 13:45 06/15/24 19:46 25 MLS/HR Carvedilol 25 mg Q12HR PO 06/13/24 22:00 06/17/24 21:40 25 MG Enteral Nutritional Formula 1,000 ml 40ML/HR GT 06/15/24 09:15 06/17/24 22:59 1,000 ML Ceftriaxone Sodium/Dextrose 50 ml @ 50 mls/hr DAILY@2100 IV 06/15/24 21:00 06/17/24 20:47 50 MLS/HR Propofol 100 ml @ 4.398 mls/ hr [id number] IV 06/15/24 21:00 06/18/24 11:56 13.194 MLS/HR Albumin Human 100 ml @ 100 mls/hr PRN PRN IV 06/16/24 11:00 06/18/24 11:17 100 MLS/HR Hydralazine HCl 50 mg BID PO 06/17/24 10:00 06/17/24 21:39 50 MG Sodium Chloride 10 ml QSHIFT@10,22 IV 06/17/24 22:00 06/18/24 11:26 10 ML Fentanyl Citrate 250 ml @ 2.5 mls/hr Q24H IV 06/17/24 17:30 06/17/24 19:27 7.5 MLS/HR Norepinephrine Bitartrate 250 ml @ 3.75 mls/hr Q24H IV 06/18/24 09:45 objective The patient is well-nourished and well-developed with no distress. The patient is intubated MENTAL STATUS: Subjective CRANIAL NERVES: Pupils are round and reactive, with a left-sided slightly bigger. There are spontaneous conjugated eye movement. No signs of facial weakness. There are gagging or coughing reflexes. SENSATION: Okay to strong painful stimuli MOTOR: Normal tone in the upper and lower extremity. Normal muscle bulk. No fasciculations. No spontaneous movement REFLEXES: Deep tendon reflexes are symmetrical. No pathological reflexes. CEREBELLAR/COORDINATION: Deferred GAIT/STATION: deferred. laboratory and microbiology Laboratory Tests 06/18/24 03:15 Test 06/18/24 03:15 Range/Units Serum Glucose 97 74-106 mg/dL Problem List Altered mental status/Coma Hypoxic encephalopathy secondary to respiratory failure Metabolic encephalopathy secondary to acidosis, sepsis, septic shock, kidney failure Multiple acute/subacute strokes Heart attack Pneumonia Sepsis, septic shock Endocarditis Acute on chronic kidney failure Acute petechial hemorrhage in the left frontal lobe, improving on follow-up CT Anisocoria, uncertain clinical significance Assessment/Plan Monitoring Supportive treatment ICU care Follow-up labs EEG Stabilize vitals Respiratory support/vent management Oxygen IV antibiotics GI prophylaxis/Protonix DVT prophylaxis/heparin Nephrology on case Pulmonology on case Infectious diseases on case She needs tracheostomy and PEG feeding tube for long-term care More recommendation per clinical course This medical document was created using an electronic medical record system with [employer] dictation system. Although this document has been carefully reviewed, there may still be some phonetic and typographical errors. These areas are purely typographical due to imperfections of the software programs, and do not reflect any compromise in the patient's medical care Prognosis guarded Dietary Evaluation Review Comments: 1) If GI is accessible consider Jevity 1.2 @ 70ml/hr x 24hr continuous feed goal rate as tolerated 2) If pt remains NPO >7 days consider TPN to meet at least 75% of estimated needs 3) Advance pt diet when medically feasible to a 2gm Sodium diet modified per VOCATIONAL TECHNICAL EDUCATION TEACHER recommendations 4) Continue current plan of care Expected Outcomes/Goals: 1) Pt to receive nutrition support within 7 days of NPO status 2) Pt diet to advance 3) F/U in 2-3 days Plan discussed with: Other PILAR HOOD MD Jun 18, 2024 17:54
--- NOTE | 2024-06-18 18:37 | DVHPN2 ---
Progress Note Date Seen: Jun 18, 2024 Medical Necessity Reason Pt with a Central, PICC or Fol: Yes The following are medically ne: Central Line, Putnam Catheter Reason for putnam catheter: Strict I&O Subjective Review of Systems: RESPIRATORY:Abnormal, NEURO:Abnormal Objective vital signs Vital Sign Date Time Temp Pulse Resp B/P (MAP) Pulse Ox O2 Delivery O2 Flow Rate FiO2 06/18/24 18:01 133/55 06/18/24 18:00 18 100 Mechanical Ventilator+ 30 30 06/18/24 18:00 78 06/18/24 18:00 99.9 211.8 Total Intake and Output 06/17/24 06/17/24 06/18/24 15:00 23:00 07:00 Intake Total 243.236 ml 658.378 ml 680.552 ml Output Total 125 ml 75 ml Balance 243.236 ml 533.378 ml 605.552 ml medications Current Medications Medications Dose Ordered Sig/Yousif Route Start Time Stop Time Status Last Admin Dose Admin Midazolam HCl 50 ml @ 1 mls/hr Q24H IV 05/25/24 06:30 05/29/24 09:11 5 MLS/HR Atorvastatin Calcium 40 mg HS NG 05/25/24 22:00 06/17/24 21:40 40 MG Ondansetron HCl 4 mg Q4HP PRN IV 05/25/24 10:45 Nitroglycerin 0.4 mg Q5MINP PRN SL 05/25/24 10:45 Albuterol 2.5 mg Q4HR NEB 05/25/24 14:00 06/18/24 13:19 2.5 MG Ipratropium [place] 0.5 mg Q4HR NEB 05/25/24 14:00 06/18/24 13:18 0.5 MG Ibuprofen 400 mg Q4HP PRN GT 05/26/24 01:15 05/26/24 01:42 400 MG Hydralazine HCl 10 mg Q6HP PRN IV 05/29/24 16:30 06/13/24 20:02 10 MG Pantoprazole Sodium 40 mg DAILY IV 05/30/24 10:00 06/18/24 11:26 40 MG Bumetanide 2 mg BIDD IV 05/30/24 18:00 06/18/24 18:01 2 MG Calcium Acetate 1,334 mg Q8HR GT 06/02/24 14:00 06/18/24 14:12 1,334 MG Aspirin 81 mg DAILY PO 06/10/24 10:00 06/18/24 11:26 81 MG Acetylcysteine 100 mg Q8HR NEB 06/09/24 22:00 06/18/24 13:18 100 MG Nicardipine HCl 50 mg/Sodium Chloride 250 ml @ 25 mls/hr Q10H IV 06/12/24 13:45 06/15/24 19:46 25 MLS/HR Carvedilol 25 mg Q12HR PO 06/13/24 22:00 06/17/24 21:40 25 MG Enteral Nutritional Formula 1,000 ml 40ML/HR GT 06/15/24 09:15 06/17/24 22:59 1,000 ML Ceftriaxone Sodium/Dextrose 50 ml @ 50 mls/hr DAILY@2100 IV 06/15/24 21:00 06/17/24 20:47 50 MLS/HR Propofol 100 ml @ 4.398 mls/ hr [id number] IV 06/15/24 21:00 06/18/24 11:56 13.194 MLS/HR Albumin Human 100 ml @ 100 mls/hr PRN PRN IV 06/16/24 11:00 06/18/24 11:17 100 MLS/HR Hydralazine HCl 50 mg BID PO 06/17/24 10:00 06/17/24 21:39 50 MG Sodium Chloride 10 ml QSHIFT@10,22 IV 06/17/24 22:00 06/18/24 11:26 10 ML Fentanyl Citrate 250 ml @ 2.5 mls/hr Q24H IV 06/17/24 17:30 06/17/24 19:27 7.5 MLS/HR Norepinephrine Bitartrate 250 ml @ 3.75 mls/hr Q24H IV 06/18/24 09:45 Examination: GENERAL:Abnormal, NECK:Abnormal, LUNGS:Abnormal, ABDOMEN:Abnormal laboratory and microbiology Laboratory Tests 06/18/24 03:15 Test 06/18/24 03:15 Range/Units Serum Glucose 97 74-106 mg/dL Microbiology Date/Time Source Procedure Growth Status 06/09/24 17:21 Urine - [place] Urine Culture - Final Complete 06/07/24 10:50 Blood Blood Culture - Final NO GROWTH AFTER 5 DAYS OF INCUBATION. Complete 05/27/24 08:50 Nose MRSA Screen - Final Complete 05/25/24 06:50 Sputum Gram Stain - Final Complete 05/25/24 06:50 Respiratory Culture - Final Presumptive Tara albicans Complete Problem List/Assessment/Plan Problem List/Assessment/Plan Acute kidney injury likely ATN on acute dialysis Unknown baseline septic shock Gram + bacteremia endocarditis septic emboli Morbid obesity Strept PNA AMS Ventilator-dependent hypoxic respiratory failure HD today, UF not dont done today b/c of hypotension. levophed given po BP meds held today fluid removal as tolerated monitor fluid balances and ABX renal function not improved rec tunnel HD for continued dialysis. ok for picc line chcf prognosis is poor, family wishes to continue chcf care trach, peg, picc, continued HD critical care time 33mins Plan discussed with: Son My Orders My Orders Orders - TOMY VALVERDE MD Procedure Category Date Status Time Hemodialysis Orders ORDERS 06/18/24 Transmitted 07:51 Dialysis Nursing ROB 06/18/24 In Process Message 07:51 Document Fluid Input ROB 06/18/24 In Process And Outpu 07:51 Norepinephrine 8 PHA 06/18/24 In Process Mg/250ml Kit 09:45 Dietary Evaluation Review Comments: 1) If GI is accessible consider Jevity 1.2 @ 70ml/hr x 24hr continuous feed goal rate as tolerated 2) If pt remains NPO >7 days consider TPN to meet at least 75% of estimated needs 3) Advance pt diet when medically feasible to a 2gm Sodium diet modified per [employer]LE[employer] recommendations 4) Continue current plan of care Expected Outcomes/Goals: 1) Pt to receive nutrition support within 7 days of NPO status 2) Pt diet to advance 3) F/U in 2-3 days TOMY VALVERDE MD Jun 18, 2024 18:37
--- NOTE | 2024-06-18 19:07 | DVHINCON2 ---
Date of service: Jun 18, [address] Mejia Reason for Consultation For PEG tube placement History of Present Illness This 53-year-old female with a history of hypertension presented to the emergency room with shortness of breath she called the EMS and brought to the emergency room and he wishes acutely short of breath and intubated. Apparently she has been sick for a month with chronic shortness of breath in the illness patient has also history of hypertension. Patient has been intubated and not unable to be weaned and completely unresponsive and is now getting a PEG tube as well as the tracheostomy tube placed for further long-term care. And hence the reason for the GI consult. For PEG tube placement Past Medical History Hypertension Past Surgical History Unremarkable Family History: Hypertension G8 MOTHER G8 FATHER Family History Noncontributory Social History Unable to get much detailed Allergies: Coded Allergies: UNOBTAINABLE (Unverified , 05/25/24) Pt unresponsive Current Medications Current Medications Medications (Trade) Dose Ordered Sig/Yousif Route PRN Reason Start Time Stop Time Status Last Admin Sodium Chloride (Saline Lock Ns) 10 ml QSHIFT@10,22 IV 06/17/24 22:00 06/18/24 11:26 Norepinephrine Bitartrate 250 ml @ 3.75 mls/hr Q24H IV 06/18/24 09:45 Review of Systems Unable to get any information Vital Signs Vital Signs Date Time Temp Pulse Resp B/P (MAP) Pulse Ox O2 Delivery O2 Flow Rate FiO2 06/18/24 18:45 125/61 06/18/24 18:00 18 100 Mechanical Ventilator+ 30 30 06/18/24 18:00 78 06/18/24 18:00 99.9 211.8 Physical Exam Moderate built and nourished female slightly on the obese side intubated and unresponsive vitals stable abdomen is soft no rigidity or distention or guarding bowel sounds normal Extremities no edema Labs/Diagnostic Data Labs Test 06/18/24 06:09 06/18/24 03:15 06/17/24 07:05 06/17/24 03:00 Range/Units Blood Gas Specimen Type Arterial Blood Gas Sample Site Arterial line Blood Gas Patient Temperature 37.0 Arterial Blood Date Drawn [id number] Arterial Blood pH 7.455 H 7.350-7.450 Arterial Blood Partial Pressure CO2 38.6 32.0-45.0 mmHg Arterial Blood Partial Pressure O2 90.4 83.0-108.0 mmHg Arterial Blood HCO3 26.5 21.0-28.0 mmol/L Arterial Blood Oxygen Saturation 96.0 94.0-98.0 % Arterial Blood Base Excess 2.5 -2.0-3.0 mmol/L Arterial Blood Oxyhemoglobin 95.5 94.0-98.0 % Arterial Blood Carboxyhemoglobin 0.3 L 0.5-1.5 % Arterial Blood Methemoglobin 0.2 0.0-1.5 % Joni Test N/a Blood Gas Total Hemoglobin 9.20 L 12.0-16.0 g/dL Blood Gas Set Respiration Rate 18.0 Blood Gas Modality Vent - ac FiO2 % 30.0 Blood Gas Tidal Volume 500.0 Blood Gas PEEP or CPAP 8.0 White Blood Count 7.5 4.4-10.8 10^3/uL Red Blood Count 2.72 L 4.0-5.20 10^6/uL Hemoglobin 8.6 L 12.2-16.2 g/dL Hematocrit 25.4 L 36.0-46.0 % Mean Corpuscular Volume 93.3 80.0-100.0 fL Mean Corpuscular Hemoglobin 31.4 28.0-32.0 pg Mean Corpuscular Hemoglobin Concent 33.7 32.0-36.0 g/dL Red Cell Distribution Width 16.6 H 11.8-14.3 % Platelet Count 160 140-450 10^3/uL Mean Platelet Volume 7.9 6.9-10.8 fL Neutrophils (%) (Auto) 70.0 37.0-80.0 % Lymphocytes (%) (Auto) 14.2 10.0-50.0 % Monocytes (%) (Auto) 12.1 H 0.0-12.0 % Eosinophils (%) (Auto) 3.2 0.0-7.0 % Basophils (%) (Auto) 0.5 0.0-2.0 % Neutrophils # (Auto) 5.2 1.6-8.6 10 ^3/uL Lymphocytes # (Auto) 1.1 0.4-5.4 10 ^3/uL Monocytes # (Auto) 0.9 0-1.3 10 ^3/uL Eosinophils # (Auto) 0.2 0-0.8 10 ^3/uL Basophils # (Auto) 0 0-0.2 10 ^3/uL Nucleated Red Blood Cells 0.1 % Sodium Level 140 136-145 mmol/L Potassium Level 4.0 3.5-5.1 mmol/L Chloride Level 99 98-107 mmol/L Carbon Dioxide Level 30 20-31 mmol/L Anion Gap 11 5-15 Blood Urea Nitrogen 63 #H 9-23 mg/dL Creatinine 4.85 #H 0.550-1.02 mg/dL Glomerular Filtration Rate Calc 10 >90 mL/min BUN/Creatinine Ratio 13.0 10.0-20.0 Serum Glucose 97 74-106 mg/dL Calcium Level 9.9 8.7-10.4 mg/dL Blood Gas Spontaneous Rate 22 Blood Gas Inspiratory Pressure 35.0 Bl Gas Inspiratory/Expiratory Ratio 1:3.4 Specimen Drawn By [facility] Blood Gas Critical Value Read Back yes Blood Gas Notified Whom [facility] Blood Gas Notified Time [id number] Blood Gas Notified By [facility] Phosphorus Level 3.9 2.4-5.1 mg/dL Magnesium Level 2.1 1.6-2.6 mg/dL Total Bilirubin 0.5 0.2-1.0 mg/dL Aspartate Amino Transferase (AST) 92 H 13-40 U/L Alanine Aminotransferase (ALT) 168 H 7-40 U/L Alkaline Phosphatase 126 H 46-116 U/L Total Protein 6.7 5.7-8.2 g/dL Albumin 3.7 3.2-4.8 g/dL Test 06/16/24 03:12 06/13/24 23:07 06/03/24 03:57 06/02/24 13:17 Range/Units Prothrombin Time 12.6 H 9.3-11.8 sec Prothrombin Time INR 1.21 H 0.9-1.15 Activated Partial Thromboplast Time 24.9 24.5-34.5 SEC POC Glucose 108 H 70-106 mg/dl Differential Total Cells Counted 100.0 100 Neutrophils % (Manual) 88 H 37.0-80.0 Band Neutrophils % (Manual) 0 Lymphocytes % (Manual) 9 L 10.0-50.0 Monocytes % (Manual) 3 0-12 Eosinophils % (Manual) 0 0-7 Basophils % (Manual) 0 0.0-2.0 Metamyelocytes % (manual) 0 Myelocytes % (Manual) 0 Promyelocytes % (Manual) 0 Blast Cells % (Manual) 0 Reactive Lymphocytes 0 Platelet Estimate Adequate Ammonia < 10 L 11-32 umol/L Vitamin B1 Level 118.2 66.5-200.0 nmol/L Vitamin B12 Level 836 211-911 pg/mL Vitamin D 25-Hydroxy 26 L . ng/mL 25-Hydroxy Vitamin D2 <1.0 . ng/mL 25-Hydroxy Vitamin D3 26 . ng/mL Hepatitis A IgM Antibody Negative Hepatitis B Surface Antigen Negative Negative Hepatitis B Core IgM Antibody Negative Negative Hepatitis C Antibody Negative Negative Test 06/01/24 04:00 05/28/24 03:43 05/28/24 01:30 05/27/24 03:35 Range/Units Iron Level 24 L 50-170 ug/dL Total Iron Binding Capacity 279 250-425 ug/dL Percent Iron Saturation 8.6 L 15-50 % Ferritin 355.1 H 10-291 ng/mL Smudge Cells 1 /100 WBC Urine Creatinine 248.25 H 30.0-125.0 mg/dL Urine Sodium 27 L 40-220 mmol/L Urine Total Protein 293.2 H 1-14 mg/dL Hypochromasia (manual) Slight Anisocytosis (manual) Slight Random Vancomycin Level 22.4 H 5-10 ug/mL Test 05/26/24 11:00 05/26/24 06:17 05/26/24 03:35 05/25/24 22:40 Range/Units Uric Acid 10.9 H 3.1-7.8 mg/dL Lactic Acid Level 3.6 *H 0.4-2.0 mmol/L Large Platelets Few Triglycerides Level 164 H < 150 mg/dL Cholesterol Level 87 < 200 mg/dL LDL Cholesterol 23 < 100 mg/dL HDL Cholesterol 6 L 40-59 mg/dL Lipase 47 12-53 U/L Troponin I High Sensitivity 1262 *H </=34 ng/L Test 05/25/24 11:35 05/25/24 08:30 05/25/24 08:24 05/25/24 06:40 Range/Units Thyroid Stimulating Hormone (TSH) 0.57 0.55-4.78 uIU/mL Urine Color Yellow Yellow Urine Clarity Clear Clear Urine pH 7.5 5.0-9.0 Urine Specific [place] 1.013 1.001-1.035 Urine Protein 2+ H Negative Urine Ketones Negative Negative Urine Blood Negative Negative /uL Urine Nitrite Negative Negative Urine Bilirubin Negative Negative Urine Urobilinogen 8 H Negative mg/dL Urine Leukocyte Esterase Negative Negative /uL Urine RBC 5 0 - 4 /hpf Urine WBC 1 0 - 5 /hpf Urine Squamous Epithelial Cells Few <5 /hpf Urine Bacteria None seen None Seen /hpf Urine Glucose Normal Normal mg/dL Urine Opiates Screen Neg NEGATIVE Urine Fentanyl Screen Neg NEGATIVE Urine Barbiturates Screen Neg NEGATIVE Urine Phencyclidine Screen Neg NEGATIVE Urine Amphetamines Screen Neg NEGATIVE Urine Benzodiazepines Screen Neg NEGATIVE Urine Cocaine Screen Neg NEGATIVE Urine Cannabinoids Screen Neg NEGATIVE Hemoglobin A1c 5.6 <5.7 % A1C B-Type Natriuretic Peptide 1384.04 0-100 pg/mL Influenza Type A Antigen Negative Negative Influenza Type B Antigen Negative Negative SARS-CoV-2 Antigen (Rapid) Negative NEGATIVE Microbiology Date/Time Source Procedure Growth Status 06/09/24 17:21 Urine - [place] Urine Culture - Final Complete 06/07/24 10:50 Blood Blood Culture - Final NO GROWTH AFTER 5 DAYS OF INCUBATION. Complete 05/27/24 08:50 Nose MRSA Screen - Final Complete 05/25/24 06:50 Sputum Gram Stain - Final Complete 05/25/24 06:50 Respiratory Culture - Final Presumptive Tara albicans Complete Assessment 53-year-old with a history of hypertension with in intubated because of severe weakness tiredness and shortness of breath and has been on in unresponsive and on the respirator for almost close to a month and needs tracheostomy as well as PEG tube placement for long-term care patient's son is the guardian we will try to get the consent from him and if agreeable we will arrange to in the next couple of days if consent is obtained. Thank you Plan/Recommendation will plan for the PEG placement after consent is obtained Thank you Dr. Wang Plan discussed with: Patient JOHN WANG MD Jun 18, 2024 19:07
--- NOTE | 2024-06-18 19:52 | DVHPN2 ---
Progress Note - Dictate Date Seen: Jun 18, 2024 Medical Necessity Reason Pt with a Central, PICC or Fol: Yes The following are medically ne: Central Line, Putnam Catheter Reason for putnam catheter: Strict I&O Subjective GI consulted today. Patient has been intubated and unable to be weaned. She is completely unresponsive and is now getting a PEG tube as well as the tracheostomy tube placed for further long-term care. vital signs Vital Sign Date Time Temp Pulse Resp B/P (MAP) Pulse Ox O2 Delivery O2 Flow Rate FiO2 06/18/24 18:55 79 21 125/61 (82) 100 30 06/18/24 18:45 99.7 211.5 06/18/24 18:00 Mechanical Ventilator+ Total Intake and Output 06/17/24 06/17/24 06/18/24 15:00 23:00 07:00 Intake Total 243.236 ml 658.378 ml 680.552 ml Output Total 125 ml 75 ml Balance 243.236 ml 533.378 ml 605.552 ml medications Current Medications Medications Dose Ordered Sig/Yousif Route Start Time Stop Time Status Last Admin Dose Admin Midazolam HCl 50 ml @ 1 mls/hr Q24H IV 05/25/24 06:30 05/29/24 09:11 5 MLS/HR Atorvastatin Calcium 40 mg HS NG 05/25/24 22:00 06/17/24 21:40 40 MG Ondansetron HCl 4 mg Q4HP PRN IV 05/25/24 10:45 Nitroglycerin 0.4 mg Q5MINP PRN SL 05/25/24 10:45 Albuterol 2.5 mg Q4HR NEB 05/25/24 14:00 06/18/24 18:54 2.5 MG Ipratropium [place] 0.5 mg Q4HR NEB 05/25/24 14:00 06/18/24 18:55 0.5 MG Ibuprofen 400 mg Q4HP PRN GT 05/26/24 01:15 05/26/24 01:42 400 MG Hydralazine HCl 10 mg Q6HP PRN IV 05/29/24 16:30 06/13/24 20:02 10 MG Pantoprazole Sodium 40 mg DAILY IV 05/30/24 10:00 06/18/24 11:26 40 MG Bumetanide 2 mg BIDD IV 05/30/24 18:00 06/18/24 18:01 2 MG Aspirin 81 mg DAILY PO 06/10/24 10:00 06/18/24 11:26 81 MG Acetylcysteine 100 mg Q8HR NEB 06/09/24 22:00 06/18/24 19:02 100 MG Nicardipine HCl 50 mg/Sodium Chloride 250 ml @ 25 mls/hr Q10H IV 06/12/24 13:45 06/15/24 19:46 25 MLS/HR Carvedilol 25 mg Q12HR PO 06/13/24 22:00 06/17/24 21:40 25 MG Enteral Nutritional Formula 1,000 ml 40ML/HR GT 06/15/24 09:15 06/17/24 22:59 1,000 ML Ceftriaxone Sodium/Dextrose 50 ml @ 50 mls/hr DAILY@2100 IV 06/15/24 21:00 06/17/24 20:47 50 MLS/HR Propofol 100 ml @ 4.398 mls/ hr [id number] IV 06/15/24 21:00 06/18/24 18:45 13.194 MLS/HR Albumin Human 100 ml @ 100 mls/hr PRN PRN IV 06/16/24 11:00 06/18/24 11:17 100 MLS/HR Hydralazine HCl 50 mg BID PO 06/17/24 10:00 06/17/24 21:39 50 MG Sodium Chloride 10 ml QSHIFT@10,22 IV 06/17/24 22:00 06/18/24 11:26 10 ML Fentanyl Citrate 250 ml @ 2.5 mls/hr Q24H IV 06/17/24 17:30 06/17/24 19:27 7.5 MLS/HR Norepinephrine Bitartrate 250 ml @ 3.75 mls/hr Q24H IV 06/18/24 09:45 objective Gen: Patient lying in bed in medical ICU. Intubated on mechanical ventilator. Head: Normocephalic, atraumatic. Eyes: PERRLA. Ears: Normal external anatomy. Throat: Endotracheal tube and orogastric tube in place. Neck: Supple, trachea midline. Chest: Transmitted breath sounds bilaterally. Decreased air entry bilaterally. No wheezing. Bibasilar crackles. Cardiovascular: Positive S1, positive S2. Regular rate and rhythm. Abdomen: Positive bowel sounds in all 4 quadrants. Soft, nontender, nondistended. : Putnam in place. Normal external genitalia. Rectal: Deferred. Skin: Warm, dry. Intact. Extremities: 2+ radial pulses bilaterally. No lower extremity edema. Neuro: Off sedation laboratory and microbiology Laboratory Tests 06/18/24 03:15 Test 06/18/24 03:15 Range/Units Serum Glucose 97 74-106 mg/dL Assessment/Plan Patient is a 54-year-old female presented to the hospital with: Septic shock with subacute endocarditis involving the anterior leaflet of the mitral valve Acute on chronic HFrEF, , newly diagnosed Acute stroke Acute hypoxic respiratory failure on MV NSTEMI, Mitral valve regurgitation, mild degree Hypertensive urgency stroke Acute kidney injury on HD Morbidly obese Recommendations: GI Consulted today for PEG tube as well as the tracheostomy tube placement. 06/15 SAMIR showed endocarditis, likely due to Streptococcus bacteremia Continue Ceftriaxone 2 g daily IV [Started on 06/15], recommend for 6 weeks for Endocarditis. Recommend repeat Echo Discontinued Cefepime IV [Started on 05/27] Doxycycline Hyclate [Started on 06/09 - 06/14] reviewed cultures see HPI Critical time 35 minutes spent. prognosis guarded Primary team is having difficult time waking her up and extubate, she is currently ventilator dependent Thank you for consult. Dietary Evaluation Review Comments: 1) If GI is accessible consider Jevity 1.2 @ 70ml/hr x 24hr continuous feed goal rate as tolerated 2) If pt remains NPO >7 days consider TPN to meet at least 75% of estimated needs 3) Advance pt diet when medically feasible to a 2gm Sodium diet modified per [employer] SERVICE TECH recommendations 4) Continue current plan of care Expected Outcomes/Goals: 1) Pt to receive nutrition support within 7 days of NPO status 2) Pt diet to advance 3) F/U in 2-3 days Plan discussed with: Other JUNG JORDAN MD Jun 18, 2024 19:52
--- NOTE | 2024-06-18 23:19 | DVHPN2 ---
Progress Note - Dictate Date Seen: Jun 18, 2024 Medical Necessity Reason Pt with a Central, PICC or Fol: Yes The following are medically ne: Central Line, Putnam Catheter Reason for putnam catheter: Strict I&O Subjective Patient seen and examined at bedside. Sedated, intubated on mechanical ventilator. Overnight events reviewed. vital signs Vital Sign Date Time Temp Pulse Resp B/P (MAP) Pulse Ox O2 Delivery O2 Flow Rate FiO2 06/18/24 23:00 99.0 74 20 125/56 (79) 99 210.2 129/95 (106) 06/18/24 22:37 30 06/18/24 22:00 Mechanical Ventilator+ Total Intake and Output 06/17/24 06/17/24 06/18/24 15:00 23:00 07:00 Intake Total 243.236 ml 658.378 ml 680.552 ml Output Total 125 ml 75 ml Balance 243.236 ml 533.378 ml 605.552 ml medications Current Medications Medications Dose Ordered Sig/Yousif Route Start Time Stop Time Status Last Admin Dose Admin Midazolam HCl 50 ml @ 1 mls/hr Q24H IV 05/25/24 06:30 05/29/24 09:11 5 MLS/HR Atorvastatin Calcium 40 mg HS NG 05/25/24 22:00 06/18/24 21:34 40 MG Ondansetron HCl 4 mg Q4HP PRN IV 05/25/24 10:45 Nitroglycerin 0.4 mg Q5MINP PRN SL 05/25/24 10:45 Albuterol 2.5 mg Q4HR NEB 05/25/24 14:00 06/18/24 22:37 2.5 MG Ipratropium [place] 0.5 mg Q4HR NEB 05/25/24 14:00 06/18/24 22:37 0.5 MG Ibuprofen 400 mg Q4HP PRN GT 05/26/24 01:15 05/26/24 01:42 400 MG Hydralazine HCl 10 mg Q6HP PRN IV 05/29/24 16:30 06/13/24 20:02 10 MG Pantoprazole Sodium 40 mg DAILY IV 05/30/24 10:00 06/18/24 11:26 40 MG Bumetanide 2 mg BIDD IV 05/30/24 18:00 06/18/24 18:01 2 MG Aspirin 81 mg DAILY PO 06/10/24 10:00 06/18/24 11:26 81 MG Acetylcysteine 100 mg Q8HR NEB 06/09/24 22:00 06/18/24 19:02 100 MG Nicardipine HCl 50 mg/Sodium Chloride 250 ml @ 25 mls/hr Q10H IV 06/12/24 13:45 06/15/24 19:46 25 MLS/HR Carvedilol 25 mg Q12HR PO 06/13/24 22:00 06/18/24 21:34 25 MG Enteral Nutritional Formula 1,000 ml 40ML/HR GT 06/15/24 09:15 06/18/24 22:35 1,000 ML Ceftriaxone Sodium/Dextrose 50 ml @ 50 mls/hr DAILY@2100 IV 06/15/24 21:00 06/18/24 21:25 50 MLS/HR Propofol 100 ml @ 4.398 mls/ hr [id number] IV 06/15/24 21:00 06/18/24 18:45 13.194 MLS/HR Albumin Human 100 ml @ 100 mls/hr PRN PRN IV 06/16/24 11:00 06/18/24 11:17 100 MLS/HR Hydralazine HCl 50 mg BID PO 06/17/24 10:00 06/18/24 21:34 50 MG Sodium Chloride 10 ml QSHIFT@10,22 IV 06/17/24 22:00 06/18/24 21:33 10 ML Fentanyl Citrate 250 ml @ 2.5 mls/hr Q24H IV 06/17/24 17:30 06/17/24 19:27 7.5 MLS/HR Norepinephrine Bitartrate 250 ml @ 3.75 mls/hr Q24H IV 06/18/24 09:45 objective Gen.: Patient lying in bed in medical ICU. Sedated, intubated on mechanical ventilator. Head: Normocephalic, atraumatic. Eyes: PERRLA. Ears: Normal external anatomy. Throat: Endotracheal tube and orogastric tube in place. Neck: Supple, trachea midline. Chest: Transmitted breath sounds bilaterally. Decreased air entry bilaterally. No wheezing. Bibasilar crackles. Cardiovascular: Positive S1, positive S2. Regular rate and rhythm. Abdomen: Positive bowel sounds in all 4 quadrants. Soft, nontender, nondistended. : Putnam in place. Normal external genitalia. Rectal: Deferred. Skin: Warm, dry. Intact. Extremities: 2+ radial pulses bilaterally. No lower extremity edema. Neuro: Sedated laboratory and microbiology Laboratory Tests 06/18/24 03:15 Test 06/18/24 03:15 Range/Units Serum Glucose 97 74-106 mg/dL Assessment/Plan Impression: Acute hypoxic respiratory failure On mechanical ventilator Septic shock Elevated troponin Acute kidney injury Lactic acidosis Metabolic acidosis Multifocal pneumonia, likely gram negative Pulmonary edema AE COPD Events: On vent support On AC mode; RR 18, VT 550 -->500, PEEP 8, FiO2 30% CT head reviewed, reveals e/o multiple strokes. Neurology recommendations appreciated Pt does not tolerate taper in sedation - becomes hypertensive, requires nicardipine drip On Coreg Sedated on Propofol Fentanyl for analgesia ABG reviewed, notable for alkalemia CXR demonstrates bilateral airspace disease. Devices in place. Continue antibiotics Tube feeds for nutritional support Wound care Monitor hemoglobin Monitor renal function Monitor electrolytes, supplement as necessary Hemodialysis per Nephrology Nephrology recs appreciated. Echo showed EF of 40%. SBT/KAREN Awaiting for mentation to improve. Plan for trach on Friday PEG on Friday Tunneled cath on Friday LTAC placement Poor prognosis, poor chance of meaningful recovery CT head on 06/06/24 revealed the two foci of left frontal subcortical hemorrhage are less conspicuous - partially resolved. No new foci of hemorrhage. Neurology recs appreciated. Labs and imaging reviewed. Rest of plan as noted below. Plan: s/p intubation on mechanical ventilator. On AC mode; RR 18, VT 500, PEEP 8, FiO2 30% Titrate FIO2 to keep O2 saturation above 90%. VAP bundle. Daily ABG and CXR while intubated Sedated for vent synchrony Off pressors, hemodynamically stable. Continue bronchodilators. Continue antibiotics. F/u cultures. Pressors if necessary to maintain a mean arterial blood pressure greater than 65 mmHg. Cardiology recs appreciated. Monitor renal function Monitor electrolytes. Supplement as necessary. Monitor ins and outs. Nephrology recs appreciated. IV fluid hydration GI prophylaxis. DVT prophylaxis. Prognosis: Poor given patient's multiple co-morbidities. Condition: Critical Rest of plan per hospitalist and other consultants. A total of 35 minutes of critical care time was spent reviewing the patient record, examining the patient, making a diagnostic and therapeutic plan, discussing this plan with the medical personnel, following up on diagnostic studies and following the patient for clinical stability excluding any and all procedures. At least 50% of this time was spent in direct, [id number] contact. Thank you, ARCHITECTURAL DRAFTING INSTRUCTOR Viral, for allowing me to participate in this patient's care. Further recommendations will depend on the patient's clinical course. Please do not hesitate to contact me if you have any questions or concerns. This medical document was created using an electronic medical record system with [employer] dictation system. Although these documentations are being carefully reviewed, there may still be some phonetic and typographical changes. The errors are purely typographical, due to imperfection on the software program, and do not reflect any compromise in the patient's medical care. Dietary Evaluation Review Comments: 1) If GI is accessible consider Jevity 1.2 @ 70ml/hr x 24hr continuous feed goal rate as tolerated 2) If pt remains NPO >7 days consider TPN to meet at least 75% of estimated needs 3) Advance pt diet when medically feasible to a 2gm Sodium diet modified per COOLING MACHINE OPERATOR recommendations 4) Continue current plan of care Expected Outcomes/Goals: 1) Pt to receive nutrition support within 7 days of NPO status 2) Pt diet to advance 3) F/U in 2-3 days Plan discussed with: Other (LUZMARIA Sin) Critical Care Time(min): 35 MELODY ELIZABETH MD Jun 18, 2024 23:19
[2024-06-19] VITALS (107 sets, daily range): BP systolic 73–200; BP diastolic 42–193; PULSE 65–87; RESP 15–34; TEMP 98.2–99.7; O2SAT 97–100
[2024-06-19 03:57] LABS: Basophils # (auto) 0 10 ^3/uL (0-0.2); Basophils % (auto) 0.4 % (0.0-2.0); Eosinophils # (auto) 0.2 10 ^3/uL (0-0.8); Eosinophils % (auto) 3.1 % (0.0-7.0); Hemoglobin 8.6 g/dL (12.2-16.2); Lymphocytes # (auto) 0.9 10 ^3/uL (0.4-5.4); Monocytes % (auto) 12.9 % (0.0-12.0); Neutrophils # (auto) 5.7 10 ^3/uL (1.6-8.6); Neutrophils % (auto) 72.6 % (37.0-80.0); Nucleated Red Blood Cells % 0.1 %; Platelet Count (auto) 151 10^3/uL (140-450); Red Blood Cells 2.77 10^6/uL (4.0-5.20); Red Cell Distribution Width 16.2 % (11.8-14.3); White Blood Cell 7.8 10^3/uL (4.4-10.8)
[2024-06-19 04:14] LABS: Calcium 10.2 mg/dL (8.7-10.4); Chloride 98 mmol/L (98-107); Potassium 3.7 mmol/L (3.5-5.1); Sodium 139 mmol/L (136-145)
[2024-06-19 04:15] LABS: Anion Gap 11 (5-15); Carbon Dioxide 30 mmol/L (20-31)
[2024-06-19 04:20] LABS: BUN/Creatinine Ratio 11.9 (10.0-20.0); Glucose 97 mg/dL (74-106)
[2024-06-19 04:22] LABS: Phosphorus 3.9 mg/dL (2.4-5.1)
[2024-06-19 04:23] LABS: Blood Urea Nitrogen 52 mg/dL (9-23)
--- NOTE | 2024-06-19 06:09 | DVH ---
CHEST RADIOGRAPH Indication: ET PLACEMENT Technique: Single frontal view of the chest was obtained COMPARISON: XY CHEST PORTABLE on DOS: 06/18/24, XY CHEST PORTABLE on DOS: 06/16/24, XY CHEST PORTABLE o n DOS: 06/15/24, XY CHEST XRAY 1 VIEW on DOS: 06/14/24, XY CHEST XRAY 1 VIEW on DOS: 06/13/24 FINDINGS: Lines and Tubes: Endotracheal tube, enteric catheter and right PICC , left central venous catheter in satisfactory position. Lungs: Congestion Pleura: No effusion. No pneumothorax. Cardiomediastinal contours: Cardiomegaly Bones: Unremarkable IMPRESSION: Lines and tubes in satisfactory position. No significant interval change.
--- NOTE | 2024-06-19 07:06 | DVHPN2 ---
Subjective Patient encephalopathic Reviewed: Care Plan, H&P, Labs, Medications, Previous Orders, Radiology, Other Changes from previous H/P or p: No Changes General: Per HPI Objective Vitals Vital Signs Date Time Temp Pulse Resp B/P (MAP) Pulse Ox O2 Delivery O2 Flow Rate FiO2 06/19/24 06:45 99.3 78 22 131/68 (89) 99 210.7 133/74 (93) 06/19/24 06:35 30 06/19/24 06:00 Mechanical Ventilator+ Intake/Output Intake and Output 06/19/24 07:00 Intake Total 1762.962 ml Output Total 40 ml Balance 1722.962 ml Intake Oral 200 ml IV Total 630.962 ml Tube Feeding 932 ml Output Urine Total 40 ml # Bowel Movements 2 General Appearance: Other HEENT: Atraumatic, Other Lungs: Other Cardiovascular: Normal S1, Normal S2, Other Abdomen: Normal bowel sounds, Soft Genitourinary: Other Neuro: Other Skin: Dry, Intact Psych/Mental Status: Other Medications Current Medications Medications Dose Ordered Sig/Yousif Route Start Time Stop Time Status Last Admin Dose Admin Midazolam HCl 50 ml @ 1 mls/hr Q24H IV 05/25/24 06:30 05/29/24 09:11 5 MLS/HR Atorvastatin Calcium 40 mg HS NG 05/25/24 22:00 06/18/24 21:34 40 MG Ondansetron HCl 4 mg Q4HP PRN IV 05/25/24 10:45 Nitroglycerin 0.4 mg Q5MINP PRN SL 05/25/24 10:45 Albuterol 2.5 mg Q4HR NEB 05/25/24 14:00 06/19/24 06:35 2.5 MG Ipratropium [place] 0.5 mg Q4HR NEB 05/25/24 14:00 06/19/24 06:35 0.5 MG Ibuprofen 400 mg Q4HP PRN GT 05/26/24 01:15 05/26/24 01:42 400 MG Hydralazine HCl 10 mg Q6HP PRN IV 05/29/24 16:30 06/13/24 20:02 10 MG Pantoprazole Sodium 40 mg DAILY IV 05/30/24 10:00 06/18/24 11:26 40 MG Bumetanide 2 mg BIDD IV 05/30/24 18:00 06/19/24 05:32 2 MG Aspirin 81 mg DAILY PO 06/10/24 10:00 06/18/24 11:26 81 MG Acetylcysteine 100 mg Q8HR NEB 06/09/24 22:00 06/19/24 06:35 100 MG Nicardipine HCl 50 mg/Sodium Chloride 250 ml @ 25 mls/hr Q10H IV 06/12/24 13:45 06/15/24 19:46 25 MLS/HR Carvedilol 25 mg Q12HR PO 06/13/24 22:00 06/18/24 21:34 25 MG Enteral Nutritional Formula 1,000 ml 40ML/HR GT 06/15/24 09:15 06/18/24 22:35 1,000 ML Ceftriaxone Sodium/Dextrose 50 ml @ 50 mls/hr DAILY@2100 IV 06/15/24 21:00 06/18/24 21:25 50 MLS/HR Propofol 100 ml @ 4.398 mls/ hr [id number] IV 06/15/24 21:00 06/19/24 01:05 13.194 MLS/HR Albumin Human 100 ml @ 100 mls/hr PRN PRN IV 06/16/24 11:00 06/18/24 11:17 100 MLS/HR Hydralazine HCl 50 mg BID PO 06/17/24 10:00 06/18/24 21:34 50 MG Sodium Chloride 10 ml QSHIFT@10,22 IV 06/17/24 22:00 06/18/24 21:33 10 ML Fentanyl Citrate 250 ml @ 2.5 mls/hr Q24H IV 06/17/24 17:30 06/19/24 02:01 7.5 MLS/HR Norepinephrine Bitartrate 250 ml @ 3.75 mls/hr Q24H IV 06/18/24 09:45 Laboratory Results Laboratory Tests 06/19/24 03:28 Chemistry Test 06/19/24 03:28 Calcium Level 10.2 mg/dL (8.7-10.4) Phosphorus Level 3.9 mg/dL (2.4-5.1) Urinalysis Test 05/25/24 08:30 05/28/24 01:30 Urine Color Yellow (Yellow) Urine Clarity Clear (Clear) Urine pH 7.5 (5.0-9.0) Urine Specific [place] 1.013 (1.001-1.035) Urine Protein 2+ (Negative) H Urine Ketones Negative (Negative) Urine Blood Negative /uL (Negative) Urine Nitrite Negative (Negative) Urine Bilirubin Negative (Negative) Urine Urobilinogen 8 mg/dL (Negative) H Urine Leukocyte Esterase Negative /uL (Negative) Urine RBC 5 /hpf (0 - 4) Urine WBC 1 /hpf (0 - 5) Urine Squamous Epithelial Cells Few /hpf (<5) Urine Bacteria None seen /hpf (None Seen) Urine Glucose Normal mg/dL (Normal) Urine Creatinine 248.25 mg/dL (30.0-125.0) H Urine Sodium 27 mmol/L (40-220) L Urine Total Protein 293.2 mg/dL (1-14) H Microbiology Microbiology Date/Time Source Procedure Growth Status 06/09/24 17:21 Urine - [place] Urine Culture - Final Complete 06/07/24 10:50 Blood Blood Culture - Final NO GROWTH AFTER 5 DAYS OF INCUBATION. Complete 05/27/24 08:50 Nose MRSA Screen - Final Complete 05/25/24 06:50 Sputum Gram Stain - Final Complete 05/25/24 06:50 Respiratory Culture - Final Presumptive Tara albicans Complete Labs and/or images reviewed: Labs reviewed by me, Image(s) reviewed by me Assessment/Plan Assessment/Plan Impression: -severe sepsis with shock , Streptococcus pneumoniae -probable community-acquired pneumonia with Gram-positive cocci -sepsis with Gram-positive cocci -acute hypoxic respiratory failure with mechanical ventilation -obesity -acute kidney injury, anuric -NSTEMI, probably type 2 -hypoalbuminemia -? Angioedema on resolved -respiratory alkalosis -multifocal CVA -endocarditis Plan: Events: No events overnight. Patient pending tracheostomy this coming Friday, followed by tunneled HD cath placement. -surgical consultation for tracheostomy -Radiology consultation for PermCath placement -GI consultation for PEG tube placement -PICC line placement, discontinue right femoral central line access -continue current antibiotics -bronchodilators -antibiotic therapy per Infectious Disease -ventilator settings per buckle attacher -nephrology consultation: HD -PUD, DVT prophylaxis -repeat labs, chest x-ray, ABG in a.m.. Critical care time spent with patient discussing and formulating plan of care: 40 minutes. This does not include time spent performing procedures. This medical document was created using an electronic medical record system with [employer] dictation system. Although this document has been carefully reviewed, there may still be some phonetic and typographical errors. These areas are purely typographical due to imperfections of the software programs, and do not reflect any compromise in the patient's medical care. Plan discussed with: Patient, Other (RN) My Orders Orders - OMAR PARK NP Procedure Category Date Status Time Basic Metabolic Panel LAB 06/20/24 Verified 05:00 Basic Metabolic Panel LAB 06/21/24 Verified 05:00 Basic Metabolic Panel LAB 06/22/24 Verified 05:00 Basic Metabolic Panel LAB 06/23/24 Verified 05:00 * Surgical Consult CONS 06/18/24 Transmitted * Radiologist Consult CONS 06/18/24 Transmitted 10:34 * Gi Dvh Luggage Attendant CONS 06/18/24 Transmitted 10:34 PTPTT LAB 06/20/24 Verified 06:00 Npo After Midnight DIET 06/20/24 Transmitted Breakfast Abg W/ Co-Ox RT 06/19/24 Logged 06:00 Date of Service: Jun 19, 2024 Billing Provider: OMAR PARK NP Common Visit Codes: [id number] CARE 30-74 MIN OMAR PARK NP Jun 19, 2024 07:06
--- NOTE | 2024-06-19 12:02 | DVHPN2 ---
Progress Note Date Seen: Jun 19, 2024 Medical Necessity Reason Pt with a Central, PICC or Fol: Yes The following are medically ne: Central Line, Putnam Catheter Reason for putnam catheter: Strict I&O Subjective Patient reports: No new complaints Objective vital signs Vital Sign Date Time Temp Pulse Resp B/P (MAP) Pulse Ox O2 Delivery O2 Flow Rate FiO2 06/19/24 10:28 78 23 117/51 (73) 98 30 06/19/24 10:00 Mechanical Ventilator+ 06/19/24 08:30 99.7 211.5 Total Intake and Output 06/18/24 06/18/24 06/19/24 15:00 23:00 07:00 Intake Total 310.552 ml 825.552 ml 647.552 ml Output Total 20 ml 20 ml Balance 310.552 ml 805.552 ml 627.552 ml medications Current Medications Medications Dose Ordered Sig/Yousif Route Start Time Stop Time Status Last Admin Dose Admin Midazolam HCl 50 ml @ 1 mls/hr Q24H IV 05/25/24 06:30 05/29/24 09:11 5 MLS/HR Atorvastatin Calcium 40 mg HS NG 05/25/24 22:00 06/18/24 21:34 40 MG Ondansetron HCl 4 mg Q4HP PRN IV 05/25/24 10:45 Nitroglycerin 0.4 mg Q5MINP PRN SL 05/25/24 10:45 Albuterol 2.5 mg Q4HR NEB 05/25/24 14:00 06/19/24 10:28 2.5 MG Ipratropium [place] 0.5 mg Q4HR NEB 05/25/24 14:00 06/19/24 10:28 0.5 MG Ibuprofen 400 mg Q4HP PRN GT 05/26/24 01:15 05/26/24 01:42 400 MG Hydralazine HCl 10 mg Q6HP PRN IV 05/29/24 16:30 06/13/24 20:02 10 MG Pantoprazole Sodium 40 mg DAILY IV 05/30/24 10:00 06/19/24 09:45 40 MG Bumetanide 2 mg BIDD IV 05/30/24 18:00 06/19/24 05:32 2 MG Aspirin 81 mg DAILY PO 06/10/24 10:00 06/19/24 09:46 81 MG Acetylcysteine 100 mg Q8HR NEB 06/09/24 22:00 06/19/24 06:35 100 MG Nicardipine HCl 50 mg/Sodium Chloride 250 ml @ 25 mls/hr Q10H IV 06/12/24 13:45 06/15/24 19:46 25 MLS/HR Carvedilol 25 mg Q12HR PO 06/13/24 22:00 06/19/24 09:47 25 MG Enteral Nutritional Formula 1,000 ml 40ML/HR GT 06/15/24 09:15 06/18/24 22:35 1,000 ML Ceftriaxone Sodium/Dextrose 50 ml @ 50 mls/hr DAILY@2100 IV 06/15/24 21:00 06/18/24 21:25 50 MLS/HR Propofol 100 ml @ 4.398 mls/ hr [id number] IV 06/15/24 21:00 06/19/24 09:48 13.194 MLS/HR Albumin Human 100 ml @ 100 mls/hr PRN PRN IV 06/16/24 11:00 06/18/24 11:17 100 MLS/HR Hydralazine HCl 50 mg BID PO 06/17/24 10:00 06/18/24 21:34 50 MG Sodium Chloride 10 ml QSHIFT@10,22 IV 06/17/24 22:00 06/19/24 09:47 10 ML Fentanyl Citrate 250 ml @ 2.5 mls/hr Q24H IV 06/17/24 17:30 06/19/24 02:01 7.5 MLS/HR Norepinephrine Bitartrate 250 ml @ 3.75 mls/hr Q24H IV 06/18/24 09:45 Examination: GENERAL:Abnormal, CVS:Abnormal, ABDOMEN:Abnormal, NEURO:Abnormal laboratory and microbiology Laboratory Tests 06/19/24 03:28 Test 06/19/24 03:28 Range/Units Serum Glucose 97 74-106 mg/dL Microbiology Date/Time Source Procedure Growth Status 06/09/24 17:21 Urine - [place] Urine Culture - Final Complete 06/07/24 10:50 Blood Blood Culture - Final NO GROWTH AFTER 5 DAYS OF INCUBATION. Complete 05/27/24 08:50 Nose MRSA Screen - Final Complete 05/25/24 06:50 Sputum Gram Stain - Final Complete 05/25/24 06:50 Respiratory Culture - Final Presumptive Tara albicans Complete Problem List/Assessment/Plan Problem List/Assessment/Plan Acute kidney injury likely ATN on acute dialysis Unknown baseline septic shock Gram + bacteremia endocarditis septic emboli Morbid obesity Strept PNA AMS Ventilator-dependent hypoxic respiratory failure no change in condition. no hd today. tentative Sun or mon po BP meds held today fluid removal as tolerated monitor fluid balances and ABX renal function not improved rec tunnel HD for continued dialysis. ok for picc line fci prognosis is poor, family wishes to continue fci care trach, peg, picc, continued HD critical care time 33mins Plan discussed with: Other Dietary Evaluation Review Comments: 1) If GI is accessible consider Jevity 1.2 @ 70ml/hr x 24hr continuous feed goal rate as tolerated 2) If pt remains NPO >7 days consider TPN to meet at least 75% of estimated needs 3) Advance pt diet when medically feasible to a 2gm Sodium diet modified per OUTREACH ANALYST recommendations 4) Continue current plan of care Expected Outcomes/Goals: 1) Pt to receive nutrition support within 7 days of NPO status 2) Pt diet to advance 3) F/U in 2-3 days Critical Care Time (mins): 33 TOMY VALVERDE MD Jun 19, 2024 12:02
--- NOTE | 2024-06-19 21:45 | DVH ---
CHEST RADIOGRAPH Indication: NGT PLACEMENT Technique: Single frontal view of the chest was obtained COMPARISON: XY CHEST PORTABLE on DOS: 06/19/24, XY CHEST PORTABLE on DOS: 06/18/24, XY CHEST PORTABLE on DOS: 06/16/24, XY CHEST PORTABLE on DOS: 06/15/24, XY CHEST XRAY 1 VIEW on DOS: 06/14/24 FINDINGS: Lines and Tubes: Endotracheal tube, enteric catheter and right PICC in satisfactory position. Lungs: Patchy bilateral airspace disease. Pleura: No effusion. No pneumothorax. Cardiomediastinal contours: Cardiomegaly Bones: Unremarkable IMPRESSION: Lines and tubes in satisfactory position. No significant interval change.
--- NOTE | 2024-06-19 23:00 | DVHPN2 ---
Progress Note - Dictate Date Seen: Jun 19, 2024 Medical Necessity Reason Pt with a Central, PICC or Fol: Yes The following are medically ne: Central Line, Putnam Catheter Reason for putnam catheter: Strict I&O Subjective No new acute complaints noted at this time. vital signs Vital Sign Date Time Temp Pulse Resp B/P (MAP) Pulse Ox O2 Delivery O2 Flow Rate FiO2 06/19/24 22:30 98.4 75 23 128/67 (87) 100 209.1 124/62 (82) 06/19/24 22:20 30 06/19/24 22:00 Mechanical Ventilator+ Total Intake and Output 06/18/24 06/18/24 06/19/24 15:00 23:00 07:00 Intake Total 310.552 ml 825.552 ml 647.552 ml Output Total 20 ml 20 ml Balance 310.552 ml 805.552 ml 627.552 ml medications Current Medications Medications Dose Ordered Sig/Yousif Route Start Time Stop Time Status Last Admin Dose Admin Midazolam HCl 50 ml @ 1 mls/hr Q24H IV 05/25/24 06:30 05/29/24 09:11 5 MLS/HR Atorvastatin Calcium 40 mg HS NG 05/25/24 22:00 06/19/24 21:38 40 MG Ondansetron HCl 4 mg Q4HP PRN IV 05/25/24 10:45 Nitroglycerin 0.4 mg Q5MINP PRN SL 05/25/24 10:45 Albuterol 2.5 mg Q4HR NEB 05/25/24 14:00 06/19/24 22:20 2.5 MG Ipratropium [place] 0.5 mg Q4HR NEB 05/25/24 14:00 06/19/24 22:20 0.5 MG Ibuprofen 400 mg Q4HP PRN GT 05/26/24 01:15 05/26/24 01:42 400 MG Hydralazine HCl 10 mg Q6HP PRN IV 05/29/24 16:30 06/13/24 20:02 10 MG Pantoprazole Sodium 40 mg DAILY IV 05/30/24 10:00 06/19/24 09:45 40 MG Bumetanide 2 mg BIDD IV 05/30/24 18:00 06/19/24 17:13 2 MG Aspirin 81 mg DAILY PO 06/10/24 10:00 06/19/24 09:46 81 MG Acetylcysteine 100 mg Q8HR NEB 06/09/24 22:00 06/19/24 22:20 100 MG Nicardipine HCl 50 mg/Sodium Chloride 250 ml @ 25 mls/hr Q10H IV 06/12/24 13:45 06/15/24 19:46 25 MLS/HR Carvedilol 25 mg Q12HR PO 06/13/24 22:00 06/19/24 21:46 25 MG Enteral Nutritional Formula 1,000 ml 40ML/HR GT 06/15/24 09:15 06/18/24 22:35 1,000 ML Ceftriaxone Sodium/Dextrose 50 ml @ 50 mls/hr DAILY@2100 IV 06/15/24 21:00 06/19/24 21:37 50 MLS/HR Propofol 100 ml @ 4.398 mls/ hr [id number] IV 06/15/24 21:00 06/19/24 21:44 13.194 MLS/HR Albumin Human 100 ml @ 100 mls/hr PRN PRN IV 06/16/24 11:00 06/18/24 11:17 100 MLS/HR Hydralazine HCl 50 mg BID PO 06/17/24 10:00 06/19/24 21:46 50 MG Sodium Chloride 10 ml QSHIFT@10,22 IV 06/17/24 22:00 06/19/24 21:43 10 ML Fentanyl Citrate 250 ml @ 2.5 mls/hr Q24H IV 06/17/24 17:30 06/19/24 02:01 7.5 MLS/HR Norepinephrine Bitartrate 250 ml @ 3.75 mls/hr Q24H IV 06/18/24 09:45 objective Gen: Patient lying in bed in medical ICU. Intubated on mechanical ventilator. Head: Normocephalic, atraumatic. Eyes: PERRLA. Ears: Normal external anatomy. Throat: Endotracheal tube and orogastric tube in place. Neck: Supple, trachea midline. Chest: Transmitted breath sounds bilaterally. Decreased air entry bilaterally. No wheezing. Bibasilar crackles. Cardiovascular: Positive S1, positive S2. Regular rate and rhythm. Abdomen: Positive bowel sounds in all 4 quadrants. Soft, nontender, nondistended. : Putnam in place. Normal external genitalia. Rectal: Deferred. Skin: Warm, dry. Intact. Extremities: 2+ radial pulses bilaterally. No lower extremity edema. Neuro: Off sedation laboratory and microbiology Laboratory Tests 06/19/24 03:28 Test 06/19/24 03:28 Range/Units Serum Glucose 97 74-106 mg/dL Assessment/Plan Patient is a 54-year-old female presented to the hospital with: Septic shock with subacute endocarditis involving the anterior leaflet of the mitral valve Acute on chronic HFrEF, , newly diagnosed Acute stroke Acute hypoxic respiratory failure on MV NSTEMI, Mitral valve regurgitation, mild degree Hypertensive urgency stroke Acute kidney injury on HD Morbidly obese Recommendations: GI Consulted for PEG tube as well as the tracheostomy tube placement. 06/15 SAMIR showed endocarditis, likely due to Streptococcus bacteremia Continue Ceftriaxone 2 g daily IV [Started on 06/15], recommend for 6 weeks for Endocarditis. Recommend repeat Echo Discontinued Cefepime IV [Started on 05/27] Doxycycline Hyclate [Started on 06/09 - 06/14] reviewed cultures see HPI Critical time 35 minutes spent. prognosis guarded Primary team is having difficult time waking her up and extubate, she is currently ventilator dependent Thank you for consult. Dietary Evaluation Review Comments: 1) If GI is accessible consider Jevity 1.2 @ 70ml/hr x 24hr continuous feed goal rate as tolerated 2) If pt remains NPO >7 days consider TPN to meet at least 75% of estimated needs 3) Advance pt diet when medically feasible to a 2gm Sodium diet modified per LEAD INSTALLER recommendations 4) Continue current plan of care Expected Outcomes/Goals: 1) Pt to receive nutrition support within 7 days of NPO status 2) Pt diet to advance 3) F/U in 2-3 days Plan discussed with: JUNG Roblero MD Jun 19, 2024 23:00
--- NOTE | 2024-06-19 23:37 | DVHPN2 ---
Progress Note - Dictate Date Seen: Jun 19, 2024 Medical Necessity Reason Pt with a Central, PICC or Fol: Yes The following are medically ne: Central Line, Putnam Catheter Reason for putnam catheter: Strict I&O Subjective Patient seen and examined at bedside. Sedated, intubated on mechanical ventilator. Overnight events reviewed. vital signs Vital Sign Date Time Temp Pulse Resp B/P (MAP) Pulse Ox O2 Delivery O2 Flow Rate FiO2 06/19/24 23:00 98.4 69 18 138/72 (94) 100 209.1 111/60 (77) 06/19/24 22:20 30 06/19/24 22:00 Mechanical Ventilator+ Total Intake and Output 06/18/24 06/18/24 06/19/24 15:00 23:00 07:00 Intake Total 310.552 ml 825.552 ml 647.552 ml Output Total 20 ml 20 ml Balance 310.552 ml 805.552 ml 627.552 ml medications Current Medications Medications Dose Ordered Sig/Yousif Route Start Time Stop Time Status Last Admin Dose Admin Midazolam HCl 50 ml @ 1 mls/hr Q24H IV 05/25/24 06:30 05/29/24 09:11 5 MLS/HR Atorvastatin Calcium 40 mg HS NG 05/25/24 22:00 06/19/24 21:38 40 MG Ondansetron HCl 4 mg Q4HP PRN IV 05/25/24 10:45 Nitroglycerin 0.4 mg Q5MINP PRN SL 05/25/24 10:45 Albuterol 2.5 mg Q4HR NEB 05/25/24 14:00 06/19/24 22:20 2.5 MG Ipratropium [place] 0.5 mg Q4HR NEB 05/25/24 14:00 06/19/24 22:20 0.5 MG Ibuprofen 400 mg Q4HP PRN GT 05/26/24 01:15 05/26/24 01:42 400 MG Hydralazine HCl 10 mg Q6HP PRN IV 05/29/24 16:30 06/13/24 20:02 10 MG Pantoprazole Sodium 40 mg DAILY IV 05/30/24 10:00 06/19/24 09:45 40 MG Bumetanide 2 mg BIDD IV 05/30/24 18:00 06/19/24 17:13 2 MG Aspirin 81 mg DAILY PO 06/10/24 10:00 06/19/24 09:46 81 MG Acetylcysteine 100 mg Q8HR NEB 06/09/24 22:00 06/19/24 22:20 100 MG Nicardipine HCl 50 mg/Sodium Chloride 250 ml @ 25 mls/hr Q10H IV 06/12/24 13:45 06/15/24 19:46 25 MLS/HR Carvedilol 25 mg Q12HR PO 06/13/24 22:00 06/19/24 21:46 25 MG Enteral Nutritional Formula 1,000 ml 40ML/HR GT 06/15/24 09:15 06/18/24 22:35 1,000 ML Ceftriaxone Sodium/Dextrose 50 ml @ 50 mls/hr DAILY@2100 IV 06/15/24 21:00 06/19/24 21:37 50 MLS/HR Propofol 100 ml @ 4.398 mls/ hr [id number] IV 06/15/24 21:00 06/19/24 21:44 13.194 MLS/HR Albumin Human 100 ml @ 100 mls/hr PRN PRN IV 06/16/24 11:00 06/18/24 11:17 100 MLS/HR Hydralazine HCl 50 mg BID PO 06/17/24 10:00 06/19/24 21:46 50 MG Sodium Chloride 10 ml QSHIFT@10,22 IV 06/17/24 22:00 06/19/24 21:43 10 ML Fentanyl Citrate 250 ml @ 2.5 mls/hr Q24H IV 06/17/24 17:30 06/19/24 02:01 7.5 MLS/HR Norepinephrine Bitartrate 250 ml @ 3.75 mls/hr Q24H IV 06/18/24 09:45 objective Gen.: Patient lying in bed in medical ICU. Sedated, intubated on mechanical ventilator. Head: Normocephalic, atraumatic. Eyes: PERRLA. Ears: Normal external anatomy. Throat: Endotracheal tube and orogastric tube in place. Neck: Supple, trachea midline. Chest: Transmitted breath sounds bilaterally. Decreased air entry bilaterally. No wheezing. Bibasilar crackles. Cardiovascular: Positive S1, positive S2. Regular rate and rhythm. Abdomen: Positive bowel sounds in all 4 quadrants. Soft, nontender, nondistended. : Putnam in place. Normal external genitalia. Rectal: Deferred. Skin: Warm, dry. Intact. Extremities: 2+ radial pulses bilaterally. No lower extremity edema. Neuro: Sedated laboratory and microbiology Laboratory Tests 06/19/24 03:28 Test 06/19/24 03:28 Range/Units Serum Glucose 97 74-106 mg/dL Assessment/Plan Impression: Acute hypoxic respiratory failure On mechanical ventilator Septic shock Elevated troponin Acute kidney injury Lactic acidosis Metabolic acidosis Multifocal pneumonia, likely gram negative Pulmonary edema AE COPD Events: On vent support On AC mode; RR 18, VT 500, PEEP 8, FiO2 30% CT head reviewed, reveals e/o multiple strokes. Neurology recommendations appreciated Pt does not tolerate taper in sedation - becomes hypertensive, requires nicardipine drip On Coreg Sedated on Propofol Fentanyl for analgesia ABG reviewed, notable for alkalemia CXR demonstrates bilateral airspace disease. Devices in place. Continue antibiotics Tube feeds for nutritional support Wound care Monitor hemoglobin Monitor renal function Monitor electrolytes, supplement as necessary Hemodialysis per Nephrology Nephrology recs appreciated. Echo showed EF of 40%. SBT/KAREN Awaiting for mentation to improve. Plan for PEG tomorrow Awaiting trach on Friday Awaiting tunneled cath on Friday LTAC placement Poor prognosis, poor chance of meaningful recovery CT head on 06/06/24 revealed the two foci of left frontal subcortical hemorrhage are less conspicuous - partially resolved. No new foci of hemorrhage. Neurology recs appreciated. Labs and imaging reviewed. Rest of plan as noted below. Plan: s/p intubation on mechanical ventilator. On AC mode; RR 18, VT 500, PEEP 8, FiO2 30% Titrate FIO2 to keep O2 saturation above 90%. VAP bundle. Daily ABG and CXR while intubated Sedated for vent synchrony Off pressors, hemodynamically stable. Continue bronchodilators. Continue antibiotics. F/u cultures. Pressors if necessary to maintain a mean arterial blood pressure greater than 65 mmHg. Cardiology recs appreciated. Monitor renal function Monitor electrolytes. Supplement as necessary. Monitor ins and outs. Nephrology recs appreciated. IV fluid hydration GI prophylaxis. DVT prophylaxis. Prognosis: Poor given patient's multiple co-morbidities. Condition: Critical Rest of plan per hospitalist and other consultants. A total of 35 minutes of critical care time was spent reviewing the patient record, examining the patient, making a diagnostic and therapeutic plan, discussing this plan with the medical personnel, following up on diagnostic studies and following the patient for clinical stability excluding any and all procedures. At least 50% of this time was spent in direct, [id number] contact. Thank you, MARKETING TEACHER [employer], for allowing me to participate in this patient's care. Further recommendations will depend on the patient's clinical course. Please do not hesitate to contact me if you have any questions or concerns. This medical document was created using an electronic medical record system with [employer] dictation system. Although these documentations are being carefully reviewed, there may still be some phonetic and typographical changes. The errors are purely typographical, due to imperfection on the software program, and do not reflect any compromise in the patient's medical care. Dietary Evaluation Review Comments: 1) If GI is accessible consider Jevity 1.2 @ 70ml/hr x 24hr continuous feed goal rate as tolerated 2) If pt remains NPO >7 days consider TPN to meet at least 75% of estimated needs 3) Advance pt diet when medically feasible to a 2gm Sodium diet modified per NEUROPSYCHIATRIST recommendations 4) Continue current plan of care Expected Outcomes/Goals: 1) Pt to receive nutrition support within 7 days of NPO status 2) Pt diet to advance 3) F/U in 2-3 days Plan discussed with: Other (LUZMARIA Donaldson) Critical Care Time(min): 35 MELODY ELIZABETH MD Jun 19, 2024 23:37
[2024-06-20] VITALS (114 sets, daily range): BP systolic 76–155; BP diastolic 44–98; PULSE 69–88; RESP 14–29; TEMP 97.5–99.1; O2SAT 96–100
[2024-06-20 03:48] LABS: Potassium 3.9 mmol/L (3.5-5.1); Sodium 137 mmol/L (136-145)
[2024-06-20 03:49] LABS: Anion Gap 10 (5-15); Basophils # (auto) 0 10 ^3/uL (0-0.2); Basophils % (auto) 0.3 % (0.0-2.0); Calcium 10.1 mg/dL (8.7-10.4); Carbon Dioxide 29 mmol/L (20-31); Eosinophils # (auto) 0.3 10 ^3/uL (0-0.8); Nucleated Red Blood Cells % 0.1 %
[2024-06-20 03:51] LABS: Eosinophils % (auto) 2.9 % (0.0-7.0); Hematocrit 25.2 % (36.0-46.0); Hemoglobin 8.3 g/dL (12.2-16.2); Lymphocytes % (auto) 11.1 % (10.0-50.0); Mean Corpuscular Hemoglobin 30.4 pg (28.0-32.0); Mean Corpuscular Hgb Conc. 32.8 g/dL (32.0-36.0); Mean Corpuscular Volume 92.8 fL (80.0-100.0); Monocytes # (auto) 1.1 10 ^3/uL (0-1.3); Monocytes % (auto) 12.5 % (0.0-12.0); Neutrophils # (auto) 6.8 10 ^3/uL (1.6-8.6); Neutrophils % (auto) 73.2 % (37.0-80.0); Platelet Count (auto) 163 10^3/uL (140-450); Red Blood Cells 2.72 10^6/uL (4.0-5.20); White Blood Cell 9.2 10^3/uL (4.4-10.8)
[2024-06-20 03:54] LABS: BUN/Creatinine Ratio 12.8 (10.0-20.0); Glucose 89 mg/dL (74-106)
[2024-06-20 04:11] LABS: Blood Urea Nitrogen 68 mg/dL (9-23); Chloride 98 mmol/L (98-107)
[2024-06-20 05:26] LABS: INR 1.12 (0.9-1.15); Partial Thromboplastin Time 28.5 SEC (24.5-34.5); Prothrombin Time 11.7 sec (9.3-11.8)
--- NOTE | 2024-06-20 06:20 | DVH ---
EXAM: XY CHEST PORTABLE Indication: RESPIRATORY FAILURE Technique: Single frontal view of the chest was obtained Comparison: XY CHEST PORTABLE on DOS: 06/19/24, XY CHEST PORTABLE on DOS: 06/19/24, XY CHEST PORTABLE on DOS: 06/18/24, XY CHEST PORTABLE on DOS: 06/16/24, XY CHEST PORTABLE on DOS: 06/15/24, XY CHEST PORTABLE on DOS: 06/19/24 FINDINGS: Lines and Tubes: Endotracheal tube, enteric catheter and right PICC in satisfactory position. Lungs: Worsening multifocal consolidative opacities. Pleura: No effusion. No pneumothorax. Cardiomediastinal contours: Cardiomegaly Bones: Unremarkable IMPRESSION: Worsening multifocal consolidative opacity.
[2024-06-20 07:26] LABS: Base Excess 2.9 mmol/L (-2.0-3.0)
--- NOTE | 2024-06-20 09:33 | DVHPN2 ---
Subjective Patient encephalopathic Reviewed: Care Plan, H&P, Labs, Medications, Previous Orders, Radiology, Other Changes from previous H/P or p: No Changes General: Per HPI Objective Vitals Vital Signs Date Time Temp Pulse Resp B/P (MAP) Pulse Ox O2 Delivery O2 Flow Rate FiO2 06/20/24 08:20 18 100 Mechanical Ventilator+ 30 30 06/20/24 08:20 72 06/20/24 07:57 105/53 (70) 06/20/24 07:00 98.2 208.8 Intake/Output Intake and Output 06/20/24 07:00 Intake Total 1017.656 ml Output Total 125 ml Balance 892.656 ml Intake Oral 120 ml IV Total 536.656 ml Tube Feeding 361 ml Output Urine Total 125 ml # Bowel Movements 2 General Appearance: Other (Patient was encephalopathic) HEENT: Atraumatic, PERRLA, Other Lungs: Other Cardiovascular: Normal S1, Normal S2, Other Abdomen: Normal bowel sounds, Soft Genitourinary: Other Neuro: Other Skin: Dry, Intact Psych/Mental Status: Other Medications Current Medications Medications Dose Ordered Sig/Yousif Route Start Time Stop Time Status Last Admin Dose Admin Midazolam HCl 50 ml @ 1 mls/hr Q24H IV 05/25/24 06:30 05/29/24 09:11 5 MLS/HR Atorvastatin Calcium 40 mg HS NG 05/25/24 22:00 06/19/24 21:38 40 MG Ondansetron HCl 4 mg Q4HP PRN IV 05/25/24 10:45 Nitroglycerin 0.4 mg Q5MINP PRN SL 05/25/24 10:45 Ibuprofen 400 mg Q4HP PRN GT 05/26/24 01:15 05/26/24 01:42 400 MG Hydralazine HCl 10 mg Q6HP PRN IV 05/29/24 16:30 06/13/24 20:02 10 MG Pantoprazole Sodium 40 mg DAILY IV 05/30/24 10:00 06/19/24 09:45 40 MG Bumetanide 2 mg BIDD IV 05/30/24 18:00 06/20/24 05:33 2 MG Aspirin 81 mg DAILY PO 06/10/24 10:00 06/19/24 09:46 81 MG Acetylcysteine 100 mg Q8HR NEB 06/09/24 22:00 06/20/24 05:57 100 MG Nicardipine HCl 50 mg/Sodium Chloride 250 ml @ 25 mls/hr Q10H IV 06/12/24 13:45 06/15/24 19:46 25 MLS/HR Carvedilol 25 mg Q12HR PO 06/13/24 22:00 06/19/24 21:46 25 MG Enteral Nutritional Formula 1,000 ml 40ML/HR GT 06/15/24 09:15 06/18/24 22:35 1,000 ML Ceftriaxone Sodium/Dextrose 50 ml @ 50 mls/hr DAILY@2100 IV 06/15/24 21:00 06/19/24 21:37 50 MLS/HR Propofol 100 ml @ 4.398 mls/ hr [id number] IV 06/15/24 21:00 06/20/24 05:41 13.194 MLS/HR Albumin Human 100 ml @ 100 mls/hr PRN PRN IV 06/16/24 11:00 06/18/24 11:17 100 MLS/HR Hydralazine HCl 50 mg BID PO 06/17/24 10:00 06/19/24 21:46 50 MG Sodium Chloride 10 ml QSHIFT@10,22 IV 06/17/24 22:00 06/19/24 21:43 10 ML Fentanyl Citrate 250 ml @ 2.5 mls/hr Q24H IV 06/17/24 17:30 06/20/24 05:25 7.5 MLS/HR Norepinephrine Bitartrate 250 ml @ 3.75 mls/hr Q24H IV 06/18/24 09:45 Albuterol 2.5 mg Q6HR NEB 06/20/24 12:00 UNV Ipratropium [place] 0.5 mg Q6HR NEB 06/20/24 12:00 UNV Laboratory Results Laboratory Tests 06/20/24 03:07 Chemistry Test 06/20/24 03:07 Calcium Level 10.1 mg/dL (8.7-10.4) Coagulation Test 06/20/24 03:07 Prothrombin Time 11.7 sec (9.3-11.8) Prothrombin Time INR 1.12 (0.9-1.15) Activated Partial Thromboplast Time 28.5 SEC (24.5-34.5) Urinalysis Test 05/25/24 08:30 05/28/24 01:30 Urine Color Yellow (Yellow) Urine Clarity Clear (Clear) Urine pH 7.5 (5.0-9.0) Urine Specific [place] 1.013 (1.001-1.035) Urine Protein 2+ (Negative) H Urine Ketones Negative (Negative) Urine Blood Negative /uL (Negative) Urine Nitrite Negative (Negative) Urine Bilirubin Negative (Negative) Urine Urobilinogen 8 mg/dL (Negative) H Urine Leukocyte Esterase Negative /uL (Negative) Urine RBC 5 /hpf (0 - 4) Urine WBC 1 /hpf (0 - 5) Urine Squamous Epithelial Cells Few /hpf (<5) Urine Bacteria None seen /hpf (None Seen) Urine Glucose Normal mg/dL (Normal) Urine Creatinine 248.25 mg/dL (30.0-125.0) H Urine Sodium 27 mmol/L (40-220) L Urine Total Protein 293.2 mg/dL (1-14) H Blood Gas Results Test 06/20/24 07:18 Arterial Blood pH 7.434 (7.350-7.450) FiO2 % 30.0 Microbiology Microbiology Date/Time Source Procedure Growth Status 06/09/24 17:21 Urine - [place] Urine Culture - Final Complete 06/07/24 10:50 Blood Blood Culture - Final NO GROWTH AFTER 5 DAYS OF INCUBATION. Complete 05/27/24 08:50 Nose MRSA Screen - Final Complete 05/25/24 06:50 Sputum Gram Stain - Final Complete 05/25/24 06:50 Respiratory Culture - Final Presumptive Tara albicans Complete Labs and/or images reviewed: Labs reviewed by me, Image(s) reviewed by me Assessment/Plan Assessment/Plan Impression: -severe sepsis with shock , Streptococcus pneumoniae -probable community-acquired pneumonia with Gram-positive cocci -sepsis with Gram-positive cocci -acute hypoxic respiratory failure with mechanical ventilation -obesity -acute kidney injury, anuric -NSTEMI, probably type 2 -hypoalbuminemia -? Angioedema on resolved -respiratory alkalosis -multifocal CVA -endocarditis Plan: Events: Discussed case with Gastroenterology. Plans for PEG placement today. Tracheostomy plan for tomorrow, followed by tunneled HD cath on Friday. -surgical consultation for tracheostomy -Radiology consultation for PermCath placement -GI consultation for PEG tube placement -continue current antibiotics -bronchodilators -antibiotic therapy per Infectious Disease -ventilator settings per business writer -nephrology consultation: HD -PUD, DVT prophylaxis -repeat labs, chest x-ray, ABG in a.m.. Critical care time spent with patient discussing and formulating plan of care: 40 minutes. This does not include time spent performing procedures. This medical document was created using an electronic medical record system with [employer] dictation system. Although this document has been carefully reviewed, there may still be some phonetic and typographical errors. These areas are purely typographical due to imperfections of the software programs, and do not reflect any compromise in the patient's medical care. Plan discussed with: Patient, Other (RN) My Orders Orders - OMAR PARK NP Procedure Category Date Status Time Abg W/ Co-Ox RT 06/20/24 Logged 06:00 Albuterol Medneb PHA 06/20/24 Logged (Ventolin Medneb) 12:00 Ipratropium Medneb PHA 06/20/24 Logged (Atrovent Medneb) 12:00 Date of Service: Jun 20, 2024 Billing Provider: OMAR PARK NP Common Visit Codes: 28865-[id number] CARE 30-74 MIN OMAR PARK NP Jun 20, 2024 09:33
[2024-06-20] MEDS: SODIUM CHL 0.9% 1000 ML BAG XX ONE (09:35)
[2024-06-20] MEDS ORDERED: MIDAZOLAM HCL 5 MG/ML-1ML VIAL ONE (11:20)
[2024-06-20] MEDS ORDERED: fentaNYL CITRATE 100 MCG/2 ML VL ONE (11:21)
[2024-06-20] MEDS: ALBUTEROL SULF 2.5 MG/0.5ML(0.5%) NEB SOLN NEB SCH (11:45)
[2024-06-20] MEDS: IPRATROPIUM BROM 0.5 MG/2.5ML INH SOL NEB SCH (11:45)
--- NOTE | 2024-06-20 14:21 | DVHOP2 ---
Operative Report DATE OF PROCEDURE: 06/20/24 INDICATIONS FOR THE PROCEDURE: Stroke malnutrition feeding problems PROCEDURE PERFORMED: 1. Esophagogastroduodenoscopy and PEG POSTOPERATIVE DIAGNOSIS: Stroke malnutrition for which feeding tube placed INFORMED CONSENT: The risks and benefits and alternatives were explained to the patient and informed consent was obtained. PROCEDURE IN DETAIL: The patient was kept NPO after midnight. In the in the ICU bedside the procedure was done, Olympus gastroscope was passed through the oropharynx into the stomach and the duodenum, and the findings were as follows. Esophagus: Normal Stomach: Fundus: Normal Body and antrum Unremarkable Pylorus normal Duodenum Up to The 2nd portion was normal After the EGD was completed the scope was withdrawn into the stomach and at the point of maximum illumination a Seldinger needle was introduced, the needle was withdrawn and through the cannula the guidewire was introduced This was held by a snare and removed through the oropharynx with the help of the snare passed through the biopsy channel of the scope Now over the guidewire the feeding tube was introduced and pulled from the anterior gastric wall aspect and observed endoscopically to be in good position in the anterior gastric wall The the tube was anchored and cut to the appropriate length and dressing applied Patient tolerated the procedure extremely well Endoscopic impression Suggestions Thank you for asking me to take part in the care of this pleasant patient ENDOSCOPIC IMPRESSION: Stroke malnutrition for which PEG tube placed SUGGESTIONS: Watch for any complications will recommend to start using the feeding tube after [address] Mejia for asking me to take part in the care of this patient JOHN Bonilla MD Jun 20, 2024 14:21
--- NOTE | 2024-06-20 18:44 | DVHPN2 ---
Progress Note Date Seen: Jun 20, 2024 Medical Necessity Reason Pt with a Central, PICC or Fol: Yes The following are medically ne: Central Line, Putnam Catheter Reason for putnam catheter: Strict I&O Objective vital signs Vital Sign Date Time Temp Pulse Resp B/P (MAP) Pulse Ox O2 Delivery O2 Flow Rate FiO2 06/20/24 17:55 18 99 Mechanical Ventilator+ 30 30 06/20/24 17:55 80 06/20/24 17:50 116/66 06/20/24 17:15 99.1 210.4 Total Intake and Output 06/19/24 06/19/24 06/20/24 15:00 23:00 07:00 Intake Total 205.552 ml 315.552 ml 496.552 ml Output Total 75 ml 50 ml Balance 205.552 ml 240.552 ml 446.552 ml medications Current Medications Medications Dose Ordered Sig/Yousif Route Start Time Stop Time Status Last Admin Dose Admin Midazolam HCl 50 ml @ 1 mls/hr Q24H IV 05/25/24 06:30 05/29/24 09:11 5 MLS/HR Atorvastatin Calcium 40 mg HS NG 05/25/24 22:00 06/19/24 21:38 40 MG Ondansetron HCl 4 mg Q4HP PRN IV 05/25/24 10:45 Nitroglycerin 0.4 mg Q5MINP PRN SL 05/25/24 10:45 Ibuprofen 400 mg Q4HP PRN GT 05/26/24 01:15 05/26/24 01:42 400 MG Hydralazine HCl 10 mg Q6HP PRN IV 05/29/24 16:30 06/13/24 20:02 10 MG Pantoprazole Sodium 40 mg DAILY IV 05/30/24 10:00 06/20/24 10:32 40 MG Bumetanide 2 mg BIDD IV 05/30/24 18:00 06/20/24 17:50 2 MG Aspirin 81 mg DAILY PO 06/10/24 10:00 06/19/24 09:46 81 MG Nicardipine HCl 50 mg/Sodium Chloride 250 ml @ 25 mls/hr Q10H IV 06/12/24 13:45 06/15/24 19:46 25 MLS/HR Carvedilol 25 mg Q12HR PO 06/13/24 22:00 06/19/24 21:46 25 MG Enteral Nutritional Formula 1,000 ml 40ML/HR GT 06/15/24 09:15 06/18/24 22:35 1,000 ML Ceftriaxone Sodium/Dextrose 50 ml @ 50 mls/hr DAILY@2100 IV 06/15/24 21:00 06/19/24 21:37 50 MLS/HR Propofol 100 ml @ 4.398 mls/ hr [id number] IV 06/15/24 21:00 06/20/24 12:01 13.194 MLS/HR Albumin Human 100 ml @ 100 mls/hr PRN PRN IV 06/16/24 11:00 06/20/24 10:05 100 MLS/HR Hydralazine HCl 50 mg BID PO 06/17/24 10:00 06/19/24 21:46 50 MG Sodium Chloride 10 ml QSHIFT@10,22 IV 06/17/24 22:00 06/20/24 10:33 10 ML Fentanyl Citrate 250 ml @ 2.5 mls/hr Q24H IV 06/17/24 17:30 06/20/24 05:25 7.5 MLS/HR Norepinephrine Bitartrate 250 ml @ 3.75 mls/hr Q24H IV 06/18/24 09:45 06/20/24 10:28 3.75 MLS/HR Albuterol 2.5 mg Q6HR NEB 06/20/24 12:00 06/20/24 11:45 2.5 MG Ipratropium [place] 0.5 mg Q6HR NEB 06/20/24 12:00 06/20/24 11:45 0.5 MG Examination: GENERAL:Abnormal, LUNGS:Abnormal, CVS:Abnormal, ABDOMEN:Abnormal laboratory and microbiology Laboratory Tests 06/20/24 03:07 Test 06/20/24 03:07 Range/Units Serum Glucose 89 74-106 mg/dL Microbiology Date/Time Source Procedure Growth Status 06/09/24 17:21 Urine - [place] Urine Culture - Final Complete 06/07/24 10:50 Blood Blood Culture - Final NO GROWTH AFTER 5 DAYS OF INCUBATION. Complete 05/27/24 08:50 Nose MRSA Screen - Final Complete 05/25/24 06:50 Sputum Gram Stain - Final Complete 05/25/24 06:50 Respiratory Culture - Final Presumptive Tara albicans Complete Problem List/Assessment/Plan Problem List/Assessment/Plan Acute kidney injury likely ATN on acute dialysis Unknown baseline septic shock Gram + bacteremia endocarditis septic emboli Morbid obesity Strept PNA AMS Ventilator-dependent hypoxic respiratory failure HD today po BP meds held today fluid removal as tolerated monitor fluid balances and ABX renal function not improved rec tunnel HD for continued dialysis. ok for picc line correction prognosis is poor, family wishes to continue correction care trach, peg, picc, continued HD critical care time 33mins Plan discussed with: Other My Orders My Orders Orders - TOMY VALVERDE MD Procedure Category Date Status Time Hemodialysis Orders ORDERS 06/20/24 Transmitted 07:00 Dialysis Nursing ROB 06/20/24 In Process Message 07:00 Document Fluid Input ROB 06/20/24 In Process And Outpu 07:00 Epoetin Rafael-Epbx PHA 06/20/24 In Process (Retacrit) 21:00 Dietary Evaluation Review Comments: 1) If GI is accessible consider Jevity 1.2 @ 70ml/hr x 24hr continuous feed goal rate as tolerated 2) If pt remains NPO >7 days consider TPN to meet at least 75% of estimated needs 3) Advance pt diet when medically feasible to a 2gm Sodium diet modified per CULTURAL ANTHROPOLOGY PROFESSOR recommendations 4) Continue current plan of care Expected Outcomes/Goals: 1) Pt to receive nutrition support within 7 days of NPO status 2) Pt diet to advance 3) F/U in 2-3 days TOMY VALVERDE MD Jun 20, 2024 18:44
--- NOTE | 2024-06-20 21:28 | DVHPN2 ---
Progress Note - Dictate Date Seen: Jun 20, 2024 Medical Necessity Reason Pt with a Central, PICC or Fol: Yes The following are medically ne: Central Line, Putnam Catheter Reason for putnam catheter: Strict I&O Subjective PEG Tube procedure completed today. Patient underwent dialysis as well. vital signs Vital Sign Date Time Temp Pulse Resp B/P (MAP) Pulse Ox O2 Delivery O2 Flow Rate FiO2 06/20/24 20:18 84 22 120/62 (81) 99 30 06/20/24 20:00 Mechanical Ventilator+ 06/20/24 18:45 99.0 210.2 Total Intake and Output 06/19/24 06/19/24 06/20/24 15:00 23:00 07:00 Intake Total 205.552 ml 315.552 ml 496.552 ml Output Total 75 ml 50 ml Balance 205.552 ml 240.552 ml 446.552 ml medications Current Medications Medications Dose Ordered Sig/Yousif Route Start Time Stop Time Status Last Admin Dose Admin Midazolam HCl 50 ml @ 1 mls/hr Q24H IV 05/25/24 06:30 05/29/24 09:11 5 MLS/HR Atorvastatin Calcium 40 mg HS NG 05/25/24 22:00 06/19/24 21:38 40 MG Ondansetron HCl 4 mg Q4HP PRN IV 05/25/24 10:45 Nitroglycerin 0.4 mg Q5MINP PRN SL 05/25/24 10:45 Ibuprofen 400 mg Q4HP PRN GT 05/26/24 01:15 05/26/24 01:42 400 MG Hydralazine HCl 10 mg Q6HP PRN IV 05/29/24 16:30 06/13/24 20:02 10 MG Pantoprazole Sodium 40 mg DAILY IV 05/30/24 10:00 06/20/24 10:32 40 MG Bumetanide 2 mg BIDD IV 05/30/24 18:00 06/20/24 17:50 2 MG Aspirin 81 mg DAILY PO 06/10/24 10:00 06/19/24 09:46 81 MG Nicardipine HCl 50 mg/Sodium Chloride 250 ml @ 25 mls/hr Q10H IV 06/12/24 13:45 06/15/24 19:46 25 MLS/HR Carvedilol 25 mg Q12HR PO 06/13/24 22:00 06/19/24 21:46 25 MG Enteral Nutritional Formula 1,000 ml 40ML/HR GT 06/15/24 09:15 06/18/24 22:35 1,000 ML Ceftriaxone Sodium/Dextrose 50 ml @ 50 mls/hr DAILY@2100 IV 06/15/24 21:00 06/19/24 21:37 50 MLS/HR Propofol 100 ml @ 4.398 mls/ hr [id number] IV 06/15/24 21:00 06/20/24 12:01 13.194 MLS/HR Albumin Human 100 ml @ 100 mls/hr PRN PRN IV 06/16/24 11:00 06/20/24 10:05 100 MLS/HR Hydralazine HCl 50 mg BID PO 06/17/24 10:00 06/19/24 21:46 50 MG Sodium Chloride 10 ml QSHIFT@10,22 IV 06/17/24 22:00 06/20/24 10:33 10 ML Fentanyl Citrate 250 ml @ 2.5 mls/hr Q24H IV 06/17/24 17:30 06/20/24 05:25 7.5 MLS/HR Norepinephrine Bitartrate 250 ml @ 3.75 mls/hr Q24H IV 06/18/24 09:45 06/20/24 10:28 3.75 MLS/HR Albuterol 2.5 mg Q6HR NEB 06/20/24 12:00 06/20/24 18:46 2.5 MG Ipratropium [place] 0.5 mg Q6HR NEB 06/20/24 12:00 06/20/24 18:46 0.5 MG objective Gen: Patient lying in bed in medical ICU. Intubated on mechanical ventilator. Head: Normocephalic, atraumatic. Eyes: PERRLA. Ears: Normal external anatomy. Throat: Endotracheal tube and orogastric tube in place. Neck: Supple, trachea midline. Chest: Transmitted breath sounds bilaterally. Decreased air entry bilaterally. No wheezing. Bibasilar crackles. Cardiovascular: Positive S1, positive S2. Regular rate and rhythm. Abdomen: Positive bowel sounds in all 4 quadrants. Soft, nontender, nondistended. : Putnam in place. Normal external genitalia. Rectal: Deferred. Skin: Warm, dry. Intact. Extremities: 2+ radial pulses bilaterally. No lower extremity edema. 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 06/15 SAMIR showed endocarditis, likely due to Streptococcus bacteremia Continue Ceftriaxone 2 g daily IV [Started on 06/15], recommend for 6 weeks for Endocarditis. Recommend repeat Echo Discontinued Cefepime IV [Started on 05/27] Doxycycline Hyclate [Started on 06/09 - 06/14] reviewed cultures see HPI From tomorrow 06/21, please contact Dr Damon Roberson for recommendations. I will sign off patient to him for coverage. Critical time 35 minutes spent. prognosis guarded Primary team is having difficult time waking her up and extubate, she is currently ventilator dependent Thank you for consult. Dietary Evaluation Review Comments: 1) If GI is accessible consider Jevity 1.2 @ 70ml/hr x 24hr continuous feed goal rate as tolerated 2) If pt remains NPO >7 days consider TPN to meet at least 75% of estimated needs 3) Advance pt diet when medically feasible to a 2gm Sodium diet modified per AUTOMOT[employer]S COUNTER ASSOCIATE recommendations 4) Continue current plan of care Expected Outcomes/Goals: 1) Pt to receive nutrition support within 7 days of NPO status 2) Pt diet to advance 3) F/U in 2-3 days Plan discussed with: JUNG Roblero MD Jun 20, 2024 21:28
[2024-06-20] MEDS: EPOETIN ALFA-EPBX 10,000 UNIT/1ML VIAL SC ONE (21:38)
--- NOTE | 2024-06-20 22:24 | DVHPN2 ---
Progress Note - Dictate Date Seen: Jun 20, 2024 Medical Necessity Reason Pt with a Central, PICC or Fol: Yes The following are medically ne: Central Line, Putnam Catheter Reason for putnam catheter: Strict I&O Subjective Patient seen and examined at bedside. Sedated, intubated on mechanical ventilator. Overnight events reviewed. vital signs Vital Sign Date Time Temp Pulse Resp B/P (MAP) Pulse Ox O2 Delivery O2 Flow Rate FiO2 06/20/24 22:19 87 25 113/72 (86) 99 30 06/20/24 20:00 Mechanical Ventilator+ 06/20/24 18:45 99.0 210.2 Total Intake and Output 06/19/24 06/19/24 06/20/24 15:00 23:00 07:00 Intake Total 205.552 ml 315.552 ml 496.552 ml Output Total 75 ml 50 ml Balance 205.552 ml 240.552 ml 446.552 ml medications Current Medications Medications Dose Ordered Sig/Yousif Route Start Time Stop Time Status Last Admin Dose Admin Midazolam HCl 50 ml @ 1 mls/hr Q24H IV 05/25/24 06:30 05/29/24 09:11 5 MLS/HR Atorvastatin Calcium 40 mg HS NG 05/25/24 22:00 06/20/24 21:39 40 MG Ondansetron HCl 4 mg Q4HP PRN IV 05/25/24 10:45 Nitroglycerin 0.4 mg Q5MINP PRN SL 05/25/24 10:45 Ibuprofen 400 mg Q4HP PRN GT 05/26/24 01:15 05/26/24 01:42 400 MG Hydralazine HCl 10 mg Q6HP PRN IV 05/29/24 16:30 06/13/24 20:02 10 MG Pantoprazole Sodium 40 mg DAILY IV 05/30/24 10:00 06/20/24 10:32 40 MG Bumetanide 2 mg BIDD IV 05/30/24 18:00 06/20/24 17:50 2 MG Aspirin 81 mg DAILY PO 06/10/24 10:00 06/19/24 09:46 81 MG Nicardipine HCl 50 mg/Sodium Chloride 250 ml @ 25 mls/hr Q10H IV 06/12/24 13:45 06/15/24 19:46 25 MLS/HR Carvedilol 25 mg Q12HR PO 06/13/24 22:00 06/19/24 21:46 25 MG Enteral Nutritional Formula 1,000 ml 40ML/HR GT 06/15/24 09:15 06/18/24 22:35 1,000 ML Ceftriaxone Sodium/Dextrose 50 ml @ 50 mls/hr DAILY@2100 IV 06/15/24 21:00 06/19/24 21:37 50 MLS/HR Propofol 100 ml @ 4.398 mls/ hr [id number] IV 06/15/24 21:00 06/20/24 12:01 13.194 MLS/HR Albumin Human 100 ml @ 100 mls/hr PRN PRN IV 06/16/24 11:00 06/20/24 10:05 100 MLS/HR Hydralazine HCl 50 mg BID PO 06/17/24 10:00 06/19/24 21:46 50 MG Sodium Chloride 10 ml QSHIFT@10,22 IV 06/17/24 22:00 06/20/24 21:39 10 ML Fentanyl Citrate 250 ml @ 2.5 mls/hr Q24H IV 06/17/24 17:30 06/20/24 05:25 7.5 MLS/HR Norepinephrine Bitartrate 250 ml @ 3.75 mls/hr Q24H IV 06/18/24 09:45 06/20/24 10:28 3.75 MLS/HR Albuterol 2.5 mg Q6HR NEB 06/20/24 12:00 06/20/24 18:46 2.5 MG Ipratropium [place] 0.5 mg Q6HR NEB 06/20/24 12:00 06/20/24 18:46 0.5 MG objective Gen.: Patient lying in bed in medical ICU. Sedated, intubated on mechanical ventilator. Head: Normocephalic, atraumatic. Eyes: PERRLA. Ears: Normal external anatomy. Throat: Endotracheal tube and orogastric tube in place. Neck: Supple, trachea midline. Chest: Transmitted breath sounds bilaterally. Decreased air entry bilaterally. No wheezing. Bibasilar crackles. Cardiovascular: Positive S1, positive S2. Regular rate and rhythm. Abdomen: Positive bowel sounds in all 4 quadrants. Soft, nontender, nondistended. : Putnam in place. Normal external genitalia. Rectal: Deferred. Skin: Warm, dry. Intact. Extremities: 2+ radial pulses bilaterally. No lower extremity edema. Neuro: Sedated laboratory and microbiology Laboratory Tests 06/20/24 03:07 Test 06/20/24 03:07 Range/Units Serum Glucose 89 74-106 mg/dL Assessment/Plan Impression: Acute hypoxic respiratory failure On mechanical ventilator Septic shock Elevated troponin Acute kidney injury Lactic acidosis Metabolic acidosis Multifocal pneumonia, likely gram negative Pulmonary edema AE COPD Events: On vent support On AC mode; RR 18, VT 500, PEEP 8, FiO2 30% Plan for trach in AM. Awaiting tunneled cath on 06/24/24 S/p PEG today. Sedated on Propofol Fentanyl for analgesia ABG reviewed, compensated CXR demonstrates Worsening multifocal consolidative opacities. Devices in place. Continue antibiotics Tube feeds for nutritional support Wound care Monitor hemoglobin Monitor renal function Monitor electrolytes, supplement as necessary Hemodialysis per Nephrology - s/p HD, 2 liters removed. Nephrology recs appreciated. Echo showed EF of 40%. SBT/KAREN Awaiting for mentation to improve. LTAC placement Poor prognosis, poor chance of meaningful recovery CT head revealed e/o multiple strokes. Neurology recommendations appreciated Labs and imaging reviewed. Rest of plan as noted below. Plan: s/p intubation on mechanical ventilator. On AC mode; RR 18, VT 500, PEEP 8, FiO2 30% Titrate FIO2 to keep O2 saturation above 90%. VAP bundle. Daily ABG and CXR while intubated Sedated for vent synchrony Off pressors, hemodynamically stable. Continue bronchodilators. Continue antibiotics. F/u cultures. Pressors if necessary to maintain a mean arterial blood pressure greater than 65 mmHg. Cardiology recs appreciated. Monitor renal function Monitor electrolytes. Supplement as necessary. Monitor ins and outs. Nephrology recs appreciated. IV fluid hydration GI prophylaxis. DVT prophylaxis. Prognosis: Poor given patient's multiple co-morbidities. Condition: Critical Rest of plan per hospitalist and other consultants. A total of 35 minutes of critical care time was spent reviewing the patient record, examining the patient, making a diagnostic and therapeutic plan, discussing this plan with the medical personnel, following up on diagnostic studies and following the patient for clinical stability excluding any and all procedures. At least 50% of this time was spent in direct, [id number] contact. Thank you, [employer], for allowing me to participate in this patient's care. Further recommendations will depend on the patient's clinical course. Please do not hesitate to contact me if you have any questions or concerns. This medical document was created using an electronic medical record system with [employer] dictation system. Although these documentations are being carefully reviewed, there may still be some phonetic and typographical changes. The errors are purely typographical, due to imperfection on the software program, and do not reflect any compromise in the patient's medical care. Dietary Evaluation Review Comments: 1) If GI is accessible consider Jevity 1.2 @ 70ml/hr x 24hr continuous feed goal rate as tolerated 2) If pt remains NPO >7 days consider TPN to meet at least 75% of estimated needs 3) Advance pt diet when medically feasible to a 2gm Sodium diet modified per V[employer]UAL OFFICE ASSISTANT recommendations 4) Continue current plan of care Expected Outcomes/Goals: 1) Pt to receive nutrition support within 7 days of NPO status 2) Pt diet to advance 3) F/U in 2-3 days Plan discussed with: Other (LUZMARIA Box) Critical Care Time(min): 35 MELODY ELIZABETH MD Jun 20, 2024 22:24
[2024-06-21] VITALS (101 sets, daily range): BP systolic 51–186; BP diastolic 32–181; PULSE 61–95; RESP 12–36; TEMP 98.2–99.1; O2SAT 97–100
[2024-06-21 04:22] LABS: Anion Gap 10 (5-15); Carbon Dioxide 31 mmol/L (20-31); Chloride 98 mmol/L (98-107); Sodium 139 mmol/L (136-145)
[2024-06-21 04:24] LABS: Calcium 9.5 mg/dL (8.7-10.4)
[2024-06-21 04:28] LABS: BUN/Creatinine Ratio 10.3 (10.0-20.0); Glucose 99 mg/dL (74-106)
[2024-06-21 04:40] LABS: Blood Urea Nitrogen 41 mg/dL (9-23)
[2024-06-21] MEDS: LIDOCAINE W/ EPINEPHRINE 1% 20ML VIAL ONE (07:09)
[2024-06-21] MEDS: BUPIVACAINE 0.25% INJ 50ML VIAL ONE (07:09)
--- NOTE | 2024-06-21 07:31 | DVHPN2 ---
Progress Note Date Seen: Jun 21, 2024 Medical Necessity Reason Pt with a Central, PICC or Fol: No The following are medically ne: Central Line, Putnam Catheter Reason for putnam catheter: Strict I&O Objective vital signs Vital Sign Date Time Temp Pulse Resp B/P (MAP) Pulse Ox O2 Delivery O2 Flow Rate FiO2 06/21/24 06:35 76 18 99/59 (72) 100 30 06/21/24 06:30 98.6 209.5 06/21/24 06:00 Mechanical Ventilator+ Total Intake and Output 06/20/24 06/20/24 06/21/24 15:00 23:00 07:00 Intake Total 310.852 ml 223.052 ml 412.358 ml Output Total 50 ml 15 ml Balance 310.852 ml 173.052 ml 397.358 ml medications Current Medications Medications Dose Ordered Sig/Yousif Route Start Time Stop Time Status Last Admin Dose Admin Midazolam HCl 50 ml @ 1 mls/hr Q24H IV 05/25/24 06:30 05/29/24 09:11 5 MLS/HR Atorvastatin Calcium 40 mg HS NG 05/25/24 22:00 06/20/24 21:39 40 MG Ondansetron HCl 4 mg Q4HP PRN IV 05/25/24 10:45 Nitroglycerin 0.4 mg Q5MINP PRN SL 05/25/24 10:45 Ibuprofen 400 mg Q4HP PRN GT 05/26/24 01:15 05/26/24 01:42 400 MG Hydralazine HCl 10 mg Q6HP PRN IV 05/29/24 16:30 06/13/24 20:02 10 MG Pantoprazole Sodium 40 mg DAILY IV 05/30/24 10:00 06/20/24 10:32 40 MG Bumetanide 2 mg BIDD IV 05/30/24 18:00 06/21/24 05:38 2 MG Aspirin 81 mg DAILY PO 06/10/24 10:00 06/19/24 09:46 81 MG Nicardipine HCl 50 mg/Sodium Chloride 250 ml @ 25 mls/hr Q10H IV 06/12/24 13:45 06/15/24 19:46 25 MLS/HR Carvedilol 25 mg Q12HR PO 06/13/24 22:00 06/19/24 21:46 25 MG Enteral Nutritional Formula 1,000 ml 40ML/HR GT 06/15/24 09:15 06/18/24 22:35 1,000 ML Ceftriaxone Sodium/Dextrose 50 ml @ 50 mls/hr DAILY@2100 IV 06/15/24 21:00 06/20/24 22:55 50 MLS/HR Propofol 100 ml @ 4.398 mls/ hr [id number] IV 06/15/24 21:00 06/20/24 23:47 13.194 MLS/HR Albumin Human 100 ml @ 100 mls/hr PRN PRN IV 06/16/24 11:00 06/20/24 10:05 100 MLS/HR Hydralazine HCl 50 mg BID PO 06/17/24 10:00 06/19/24 21:46 50 MG Sodium Chloride 10 ml QSHIFT@10,22 IV 06/17/24 22:00 06/20/24 21:39 10 ML Fentanyl Citrate 250 ml @ 2.5 mls/hr Q24H IV 06/17/24 17:30 06/20/24 05:25 7.5 MLS/HR Norepinephrine Bitartrate 250 ml @ 3.75 mls/hr Q24H IV 06/18/24 09:45 06/20/24 10:28 3.75 MLS/HR Albuterol 2.5 mg Q6HR NEB 06/20/24 12:00 06/21/24 06:34 2.5 MG Ipratropium [place] 0.5 mg Q6HR NEB 06/20/24 12:00 06/21/24 06:34 0.5 MG laboratory and microbiology Laboratory Tests 06/21/24 03:30 06/20/24 03:07 Test 06/21/24 03:30 Range/Units Serum Glucose 99 74-106 mg/dL Problem List/Assessment/Plan Problem List/Assessment/Plan 06/21/24 patient's CXR much worse than yesterday, she is hypotensive this morning and on PEEP of 8, will cancel tracheostomy today ,please notify me once she can tolerate PEEP of 5 and her blood pressure is stable. Plan discussed with: Other Dietary Evaluation Review Comments: 1) If GI is accessible consider Jevity 1.2 @ 70ml/hr x 24hr continuous feed goal rate as tolerated 2) If pt remains NPO >7 days consider TPN to meet at least 75% of estimated needs 3) Advance pt diet when medically feasible to a 2gm Sodium diet modified per INDIG[employer] MIXER recommendations 4) Continue current plan of care Expected Outcomes/Goals: 1) Pt to receive nutrition support within 7 days of NPO status 2) Pt diet to advance 3) F/U in 2-3 days XIMENA CHEATHAM MD Jun 21, 2024 07:31
--- NOTE | 2024-06-21 07:58 | DVHPN2 ---
Subjective Patient encephalopathic Reviewed: Care Plan, H&P, Labs, Medications, Previous Orders, Radiology, Other Changes from previous H/P or p: No Changes General: Per HPI Objective Vitals Vital Signs Date Time Temp Pulse Resp B/P (MAP) Pulse Ox O2 Delivery O2 Flow Rate FiO2 06/21/24 06:35 76 18 99/59 (72) 100 30 06/21/24 06:30 98.6 209.5 06/21/24 06:00 Mechanical Ventilator+ Intake/Output Intake and Output 06/21/24 07:00 Intake Total 946.262 ml Output Total 65 ml Balance 881.262 ml Intake Oral 0 ml IV Total 666.262 ml Tube Feeding 280 ml Output Urine Total 65 ml # Bowel Movements 2 General Appearance: Other (Patient was encephalopathic) HEENT: Atraumatic, PERRLA, Other Lungs: Other Cardiovascular: Normal S1, Normal S2, Other Abdomen: Normal bowel sounds, Soft Genitourinary: Other Neuro: Other Skin: Dry, Intact Psych/Mental Status: Other Medications Current Medications Medications Dose Ordered Sig/Yousif Route Start Time Stop Time Status Last Admin Dose Admin Midazolam HCl 50 ml @ 1 mls/hr Q24H IV 05/25/24 06:30 05/29/24 09:11 5 MLS/HR Atorvastatin Calcium 40 mg HS NG 05/25/24 22:00 06/20/24 21:39 40 MG Ondansetron HCl 4 mg Q4HP PRN IV 05/25/24 10:45 Nitroglycerin 0.4 mg Q5MINP PRN SL 05/25/24 10:45 Ibuprofen 400 mg Q4HP PRN GT 05/26/24 01:15 05/26/24 01:42 400 MG Hydralazine HCl 10 mg Q6HP PRN IV 05/29/24 16:30 06/13/24 20:02 10 MG Pantoprazole Sodium 40 mg DAILY IV 05/30/24 10:00 06/20/24 10:32 40 MG Bumetanide 2 mg BIDD IV 05/30/24 18:00 06/21/24 05:38 2 MG Aspirin 81 mg DAILY PO 06/10/24 10:00 06/19/24 09:46 81 MG Nicardipine HCl 50 mg/Sodium Chloride 250 ml @ 25 mls/hr Q10H IV 06/12/24 13:45 06/15/24 19:46 25 MLS/HR Enteral Nutritional Formula 1,000 ml 40ML/HR GT 06/15/24 09:15 06/18/24 22:35 1,000 ML Ceftriaxone Sodium/Dextrose 50 ml @ 50 mls/hr DAILY@2100 IV 06/15/24 21:00 06/20/24 22:55 50 MLS/HR Propofol 100 ml @ 4.398 mls/ hr [id number] IV 06/15/24 21:00 06/20/24 23:47 13.194 MLS/HR Albumin Human 100 ml @ 100 mls/hr PRN PRN IV 06/16/24 11:00 06/20/24 10:05 100 MLS/HR Sodium Chloride 10 ml QSHIFT@10,22 IV 06/17/24 22:00 06/20/24 21:39 10 ML Fentanyl Citrate 250 ml @ 2.5 mls/hr Q24H IV 06/17/24 17:30 06/20/24 05:25 7.5 MLS/HR Norepinephrine Bitartrate 250 ml @ 3.75 mls/hr Q24H IV 06/18/24 09:45 06/20/24 10:28 3.75 MLS/HR Albuterol 2.5 mg Q6HR NEB 06/20/24 12:00 06/21/24 06:34 2.5 MG Ipratropium [place] 0.5 mg Q6HR NEB 06/20/24 12:00 06/21/24 06:34 0.5 MG Carvedilol 6.25 mg Q12HR PO 06/21/24 10:00 UNV Laboratory Results Laboratory Tests 06/20/24 03:07 06/21/24 03:30 Chemistry Test 06/21/24 03:30 Calcium Level 9.5 mg/dL (8.7-10.4) Urinalysis Test 05/25/24 08:30 05/28/24 01:30 Urine Color Yellow (Yellow) Urine Clarity Clear (Clear) Urine pH 7.5 (5.0-9.0) Urine Specific Rives 1.013 (1.001-1.035) Urine Protein 2+ (Negative) H Urine Ketones Negative (Negative) Urine Blood Negative /uL (Negative) Urine Nitrite Negative (Negative) Urine Bilirubin Negative (Negative) Urine Urobilinogen 8 mg/dL (Negative) H Urine Leukocyte Esterase Negative /uL (Negative) Urine RBC 5 /hpf (0 - 4) Urine WBC 1 /hpf (0 - 5) Urine Squamous Epithelial Cells Few /hpf (<5) Urine Bacteria None seen /hpf (None Seen) Urine Glucose Normal mg/dL (Normal) Urine Creatinine 248.25 mg/dL (30.0-125.0) H Urine Sodium 27 mmol/L (40-220) L Urine Total Protein 293.2 mg/dL (1-14) H Microbiology Microbiology Date/Time Source Procedure Growth Status 06/09/24 17:21 Urine - [place] Urine Culture - Final Complete 06/07/24 10:50 Blood Blood Culture - Final NO GROWTH AFTER 5 DAYS OF INCUBATION. Complete 05/27/24 08:50 Nose MRSA Screen - Final Complete 05/25/24 06:50 Sputum Gram Stain - Final Complete 05/25/24 06:50 Respiratory Culture - Final Presumptive Tara albicans Complete Labs and/or images reviewed: Labs reviewed by me, Image(s) reviewed by me Assessment/Plan Assessment/Plan Impression: -severe sepsis with shock , Streptococcus pneumoniae -probable community-acquired pneumonia with Gram-positive cocci -sepsis with Gram-positive cocci -acute hypoxic respiratory failure with mechanical ventilation -obesity -acute kidney injury, anuric -NSTEMI, probably type 2 -hypoalbuminemia -? Angioedema on resolved -respiratory alkalosis -multifocal CVA -endocarditis Plan: Events: Scheduled for tracheostomy today. Apparently, patient was too unstable because patient was hypotensive. Patient also on a PEEP of eight. PEEP dropped to six, FiO2 remains 30% with saturation remaining 99%. Re-evaluate chest x-ray which does reveal bilateral opacities. Patient on antihypertensives via G-tube, which will be titrated down. Also discussed case with pulmonology, Dr. Tovar. -surgical consultation for tracheostomy -Radiology consultation for PermCath placement -GI consultation for PEG tube placement -continue current antibiotics -bronchodilators -antibiotic therapy per Infectious Disease -ventilator settings per mesh man -nephrology consultation: HD -PUD, DVT prophylaxis -repeat labs, chest x-ray, ABG in a.m.. Critical care time spent with patient discussing and formulating plan of care: 40 minutes. This does not include time spent performing procedures. This medical document was created using an electronic medical record system with [email or web address] dictation system. Although this document has been carefully reviewed, there may still be some phonetic and typographical errors. These areas are purely typographical due to imperfections of the software programs, and do not reflect any compromise in the patient's medical care. Plan discussed with: Patient, Other My Orders Orders - OMAR PARK NP Procedure Category Date Status Time Albuterol Medneb PHA 06/20/24 In Process (Ventolin Medneb) 12:00 Ipratropium Medneb PHA 06/20/24 In Process (Atrovent Medneb) 12:00 Ventilator Orders RT 06/21/24 Transmitted 07:30 Carvedilol Tablet PHA 06/21/24 Logged (Coreg Tablet) 10:00 Complete Blood Count LAB 06/22/24 Verified 04:00 Date of Service: Jun 21, 2024 Billing Provider: OMAR APRK NP Common Visit Codes: [id number] CARE 30-74 MIN OMAR PARK NP Jun 21, 2024 07:58
[2024-06-21] MEDS: CARVEDILOL 3.125 MG TAB PO SCH (10:46)
[2024-06-21] MEDS: HEPARIN SODIUM (PORCINE) 5000 UNITS/ML 1ML VIAL ONE (11:42)
[2024-06-21] MEDS: MIDAZOLAM HCL 2MG/2ML 2ml VIAL (1mg/ml) ONE (11:43)
[2024-06-21] MEDS: fentaNYL CITRATE 100 MCG/2 ML VL ONE (11:43)
[2024-06-21] MEDS: LIDOCAINE 2%HCL (LOCAL ANESTH.) INJ 20ML MDV ONE (11:43)
--- NOTE | 2024-06-21 12:53 | DVHPN2 ---
Progress Note - Dictate Date Seen: Jun 21, 2024 Medical Necessity Reason Pt with a Central, PICC or Fol: No The following are medically ne: Central Line, Putnam Catheter Reason for putnam catheter: Strict I&O Subjective Ms. Pandya is a 53 years old right-handed female with a history of morbid obesity, hypertension, the patient was was brought to the [facility] on 05/25/24 with a chief company of altered mental status, respiratory distress. I have seen and examined the patient, I have talked to her nurse. She is returned to light touch, possibly to verbal stimuli with opening of the eyes, but she does not follow, she does not move her extremities I have discussed with her boyfriend, who is in the room Fentanyl 125 mcg/hour, propofol 15 mcg/minute Urine culture, 05/25/2024: Negative Blood culture, 05/25/2024: Streptococcus pneumoniae UDS, 05/25/2024: Negative Urinalysis, 05/25/2024: WBC: 1, urine leukocyte esterase: Negative ABG, 05/25/2024: Metabolic acidosis, hypoxia, 05/26/2024: Metabolic acidosis, hypoxia, 05/27/24: Metabolic acidosis, hypoxia WBC/HB/PLT/MCV, 06/02/2024: 22.4/9/342/89.4 06/09/2024: 19.6/9.4/235/91.6, 06/12/2024: 8.2/9.2/205/90.6 BUN/CR, 05/26/2024: 62/7.01 06/02/2024: 123/6.59, 06/09/2024: 137/6.32, 06/12/2024: 71/4.33 HGB A1c, 05/25/2024: 5.6 Lactic acid, 05/25/2024: 3.6, 4.6, 4.2, 05/26/2024: 3.6 Troponin one high sensitivity, 05/25/2024: 1060, 1354, 1262 TBI/AST/ALT/AP, 05/26/2024: 2/246/167/98, 06/07/2024: 0.9/139/464/93 TG/HDL/LDL/HDL, 05/25/2024: 192/98/40/8 Vitamin B12, 06/02/2024: 836 TSH, 05/25/2024: 0.57 SAMIR, 06/15/2024: Vegetation anterior mitral leaflet Carotid Doppler, 06/15/2024: 1. There is no hemodynamically significant stenosis in the right common carotid and internal carotid arteries. There is elevated peak systolic velocity in the right external carotid artery. 2. Nonvisualization of the left carotid and vertebral arteries secondary to overlying bandage. Consider further evaluation with CTA neck Chest x-ray, 05/25/2024: 1. Distal tip of the endotracheal tube is approximately 5.5 cm above the level of the nik. 2. Poorly visualized enteric tube at its distal aspect. Appears to reach the gastroesophageal junction, although not visualized distal to this point. Correlate with clinical findings. 3. Bilateral airspace opacities and interstitial opacities, may be due to multifocal pneumonia or pulmonary edema in the appropriate clinical setting CT head, 05/25/2024: No gross acute intracranial process CT head, 06/02/24: 1. Interval development of 2 foci of subcortical parenchymal hemorrhage in the left frontal lobe. No mass effect or midline shift. 2. Moderate amount of fluid in the posterior nasopharynx likely related to intubation. Recommend suctioning to prevent aspiration. 3. Small bilateral mastoid effusions. We are in the process of reaching out to the nurse or physician in charge of the patient to convey the findings. CT head, 06/04/2024: Redemonstrated are 2 hyperdense foci in the subcortical left frontal lobe which may represent small foci of parenchymal hemorrhage. There is no significant surrounding edema or associated mass effect CT head, 06/06/2024: The 2 foci of left frontal subcortical hemorrhage are less conspicuous in the current exam partially resolved. No new foci of hemorrhage MR head, 06/15/2024: Extensive periventricular and deep white matter signal abnormality most of which is likely chronic. Possible small focus of subacute ischemia in the right periventricular region. No definite acute intracranial hemorrhage on MRI. Clinical correlation and continued follow-up is recommended. vital signs Vital Sign Date Time Temp Pulse Resp B/P (MAP) Pulse Ox O2 Delivery O2 Flow Rate FiO2 06/21/24 11:40 75 18 77/33 (48) 100 30 06/21/24 10:00 Mechanical Ventilator+ 06/21/24 06:30 98.6 209.5 Total Intake and Output 06/20/24 06/20/24 06/21/24 15:00 23:00 07:00 Intake Total 310.852 ml 223.052 ml 412.358 ml Output Total 50 ml 15 ml Balance 310.852 ml 173.052 ml 397.358 ml medications Current Medications Medications Dose Ordered Sig/Yousif Route Start Time Stop Time Status Last Admin Dose Admin Midazolam HCl 50 ml @ 1 mls/hr Q24H IV 05/25/24 06:30 05/29/24 09:11 5 MLS/HR Atorvastatin Calcium 40 mg HS NG 05/25/24 22:00 06/20/24 21:39 40 MG Ondansetron HCl 4 mg Q4HP PRN IV 05/25/24 10:45 Nitroglycerin 0.4 mg Q5MINP PRN SL 05/25/24 10:45 Ibuprofen 400 mg Q4HP PRN GT 05/26/24 01:15 05/26/24 01:42 400 MG Hydralazine HCl 10 mg Q6HP PRN IV 05/29/24 16:30 06/13/24 20:02 10 MG Pantoprazole Sodium 40 mg DAILY IV 05/30/24 10:00 06/21/24 10:44 40 MG Bumetanide 2 mg BIDD IV 05/30/24 18:00 06/21/24 05:38 2 MG Aspirin 81 mg DAILY PO 06/10/24 10:00 06/19/24 09:46 81 MG Nicardipine HCl 50 mg/Sodium Chloride 250 ml @ 25 mls/hr Q10H IV 06/12/24 13:45 06/15/24 19:46 25 MLS/HR Enteral Nutritional Formula 1,000 ml 40ML/HR GT 06/15/24 09:15 06/18/24 22:35 1,000 ML Ceftriaxone Sodium/Dextrose 50 ml @ 50 mls/hr DAILY@2100 IV 06/15/24 21:00 06/20/24 22:55 50 MLS/HR Propofol 100 ml @ 4.398 mls/ hr [id number] IV 06/15/24 21:00 06/20/24 23:47 13.194 MLS/HR Albumin Human 100 ml @ 100 mls/hr PRN PRN IV 06/16/24 11:00 2/2/25 10:05 100 MLS/HR Sodium Chloride 10 ml QSHIFT@10,22 IV 06/17/24 22:00 06/21/24 10:46 10 ML Fentanyl Citrate 250 ml @ 2.5 mls/hr Q24H IV 06/17/24 17:30 06/21/24 09:05 10 MLS/HR Norepinephrine Bitartrate 250 ml @ 3.75 mls/hr Q24H IV 06/18/24 09:45 06/20/24 10:28 3.75 MLS/HR Albuterol 2.5 mg Q6HR NEB 06/20/24 12:00 06/21/24 11:39 2.5 MG Ipratropium [place] 0.5 mg Q6HR NEB 06/20/24 12:00 06/21/24 11:39 0.5 MG Carvedilol 6.25 mg Q12HR PO 06/21/24 10:00 06/21/24 10:46 6.25 MG objective The patient is well-nourished and well-developed with no distress. The patient is intubated MENTAL STATUS: Subjective CRANIAL NERVES: Pupils are round and reactive, with a left-sided slightly bigger. There are spontaneous conjugated eye movement. No signs of facial weakness. There are gagging or coughing reflexes. SENSATION: Okay to strong painful stimuli MOTOR: Normal tone in the upper and lower extremity. Normal muscle bulk. No fasciculations. No spontaneous movement REFLEXES: Deep tendon reflexes are symmetrical. No pathological reflexes. CEREBELLAR/COORDINATION: Deferred GAIT/STATION: deferred. laboratory and microbiology Laboratory Tests 06/21/24 03:30 06/20/24 03:07 Test 06/21/24 03:30 Range/Units Serum Glucose 99 74-106 mg/dL Problem List Altered mental status/Coma Hypoxic encephalopathy secondary to respiratory failure Metabolic encephalopathy secondary to acidosis, sepsis, septic shock, kidney failure Multiple acute/subacute strokes Heart attack Pneumonia Sepsis, septic shock Endocarditis Acute on chronic kidney failure Acute petechial hemorrhage in the left frontal lobe, improving on follow-up CT Anisocoria, uncertain clinical significance Assessment/Plan Monitoring Supportive treatment ICU care Follow-up labs EEG Stabilize vitals Respiratory support/vent management Oxygen IV antibiotics GI prophylaxis/Protonix DVT prophylaxis/heparin Nephrology on case Pulmonology on case Infectious diseases on case She was stopped post PEG feeding tube insertion She needs tracheostomy More recommendation per clinical course This medical document was created using an electronic medical record system with [employer] dictation system. Although this document has been carefully reviewed, there may still be some phonetic and typographical errors. These areas are purely typographical due to imperfections of the software programs, and do not reflect any compromise in the patient's medical care Prognosis guarded Dietary Evaluation Review Comments: 1) If GI is accessible consider Jevity 1.2 @ 70ml/hr x 24hr continuous feed goal rate as tolerated 2) If pt remains NPO >7 days consider TPN to meet at least 75% of estimated needs 3) Advance pt diet when medically feasible to a 2gm Sodium diet modified per [employer] recommendations 4) Continue current plan of care Expected Outcomes/Goals: 1) Pt to receive nutrition support within 7 days of NPO status 2) Pt diet to advance 3) F/U in 2-3 days Plan discussed with: Other PILAR HOOD MD Jun 21, 2024 12:53
--- NOTE | 2024-06-21 13:11 | DVH ---
XY Insertion of Venous Cath, HISTORY: HD CATH PL PROCEDURE: Informed consent was obtained. The patient was placed supine on the interventional table. A limited localization ultrasound of the right neck base was obtained. The right neck base and upper chest were prepped with chlorhexidine which was allowed to dry and draped in the usual sterile fashio n. Time out was performed. IV sedation was administered. The skin and the soft tissues were infiltrat ed with 1% Lidocaine mixed with Epinephrine. With real-time ultrasound guidance, the internal jugular vein was accessed with a micropuncture kit, and an image documenting patency was recorded to PACS. A subcutaneous tunneled tract was created from the right upper chest to the venotomy site. A 14.5 Fren ch [place] Path, 23 cm long hemodialysis catheter was advanced through the tunneled tract. Fluoroscopy was used to advance a guidewire through the internal jugular vein into the inferior vena cava. Following serial dilatation, a 15 Chinese peel-away sheath was introduced, though which was adva nced the catheter into the right atrium. The catheter tip position was confirmed with fluoroscopy. Th ere was satisfactory flow in both lumens. The catheter lumens were flushed with saline and heparin wa s left indwelling in the catheter. A post-procedure image of the chest was obtained. The neck incisio n site was closed with a Vicryl suture and dressed sterilely. The catheter was sutured at the skin sanchez rface and exit site also dressed sterilely. No immediate complication was identified. The left IJ non tunneled HD catheter was removed and manual pressure held. DAP 200 FLUOROSCOPY TIME: 1.1 minutes. SEDATION: Dr. Nae Serrano was personally responsible for the administration of moderate sedation during the procedure performed, including the use of an independent trained observer who had no other duties during the procedure. The drugs utilized were IV propofol (see nursing log for details). The total t elsie of supervision by the attending physician was approximately 30 minutes. FINDINGS: Widely patent right IJV. Post procedure image demonstrates smooth course of the hemodialysi s catheter with the tip in the right atrium. IMPRESSION: Successful placement of 14.5 Chinese [place] Path, 23 cm long hemodialysis catheter through right strategy intern al jugular vein. Plan: Please contact IR for removal when no longer needed.
--- NOTE | 2024-06-21 15:55 | DVHPN2 ---
Progress Note Date Seen: Jun 21, 2024 Medical Necessity Reason Pt with a Central, PICC or Fol: No The following are medically ne: Central Line, Putnam Catheter Reason for putnam catheter: Strict I&O Subjective Patient reports: Other (Events noted) Review of Systems: Not Done (Intubated) Objective vital signs Vital Sign Date Time Temp Pulse Resp B/P (MAP) Pulse Ox O2 Delivery O2 Flow Rate FiO2 06/21/24 14:33 76 18 74/33 (47) 100 30 06/21/24 12:00 Mechanical Ventilator+ 06/21/24 06:30 98.6 209.5 Total Intake and Output 06/20/24 06/20/24 06/21/24 15:00 23:00 07:00 Intake Total 310.852 ml 223.052 ml 412.358 ml Output Total 50 ml 15 ml Balance 310.852 ml 173.052 ml 397.358 ml medications Current Medications Medications Dose Ordered Sig/Yousif Route Start Time Stop Time Status Last Admin Dose Admin Midazolam HCl 50 ml @ 1 mls/hr Q24H IV 05/25/24 06:30 05/29/24 09:11 5 MLS/HR Atorvastatin Calcium 40 mg HS NG 05/25/24 22:00 06/20/24 21:39 40 MG Ondansetron HCl 4 mg Q4HP PRN IV 05/25/24 10:45 Nitroglycerin 0.4 mg Q5MINP PRN SL 05/25/24 10:45 Ibuprofen 400 mg Q4HP PRN GT 05/26/24 01:15 05/26/24 01:42 400 MG Hydralazine HCl 10 mg Q6HP PRN IV 05/29/24 16:30 06/13/24 20:02 10 MG Pantoprazole Sodium 40 mg DAILY IV 05/30/24 10:00 06/21/24 10:44 40 MG Bumetanide 2 mg BIDD IV 05/30/24 18:00 06/21/24 05:38 2 MG Aspirin 81 mg DAILY PO 06/10/24 10:00 06/21/24 10:00 81 MG Nicardipine HCl 50 mg/Sodium Chloride 250 ml @ 25 mls/hr Q10H IV 06/12/24 13:45 06/15/24 19:46 25 MLS/HR Enteral Nutritional Formula 1,000 ml 40ML/HR GT 06/15/24 09:15 06/18/24 22:35 1,000 ML Ceftriaxone Sodium/Dextrose 50 ml @ 50 mls/hr DAILY@2100 IV 06/15/24 21:00 06/20/24 22:55 50 MLS/HR Propofol 100 ml @ 4.398 mls/ hr [id number] IV 06/15/24 21:00 06/20/24 23:47 13.194 MLS/HR Albumin Human 100 ml @ 100 mls/hr PRN PRN IV 06/16/24 11:00 06/20/24 10:05 100 MLS/HR Sodium Chloride 10 ml QSHIFT@10,22 IV 06/17/24 22:00 06/21/24 10:46 10 ML Fentanyl Citrate 250 ml @ 2.5 mls/hr Q24H IV 06/17/24 17:30 06/21/24 09:05 10 MLS/HR Norepinephrine Bitartrate 250 ml @ 3.75 mls/hr Q24H IV 06/18/24 09:45 06/21/24 11:45 3.75 MLS/HR Albuterol 2.5 mg Q6HR NEB 06/20/24 12:00 06/21/24 11:39 2.5 MG Ipratropium [place] 0.5 mg Q6HR NEB 06/20/24 12:00 06/21/24 11:39 0.5 MG Carvedilol 6.25 mg Q12HR PO 06/21/24 10:00 06/21/24 10:46 6.25 MG Examination: GENERAL:Abnormal, LUNGS:Abnormal, MSK:Abnormal, NEURO:Abnormal laboratory and microbiology Laboratory Tests 06/21/24 03:30 06/20/24 03:07 Test 06/21/24 03:30 Range/Units Serum Glucose 99 74-106 mg/dL Microbiology Date/Time Source Procedure Growth Status 06/09/24 17:21 Urine - [place] Urine Culture - Final Complete 06/07/24 10:50 Blood Blood Culture - Final NO GROWTH AFTER 5 DAYS OF INCUBATION. Complete 05/27/24 08:50 Nose MRSA Screen - Final Complete 05/25/24 06:50 Sputum Gram Stain - Final Complete 05/25/24 06:50 Respiratory Culture - Final Presumptive Tara albicans Complete Problem List/Assessment/Plan Problem List/Assessment/Plan Acute kidney injury likely ATN needing HD Unknown recent baseline Severe sepsis Morbid obesity Ventilator-dependent hypoxic respiratory failure recs Next HD tomorrow Friday Possible tunneled catheter placement today Plan discussed with: Other Dietary Evaluation Review Comments: 1) If GI is accessible consider Jevity 1.2 @ 70ml/hr x 24hr continuous feed goal rate as tolerated 2) If pt remains NPO >7 days consider TPN to meet at least 75% of estimated needs 3) Advance pt diet when medically feasible to a 2gm Sodium diet modified per CLIENT CARE CONSULTANT recommendations 4) Continue current plan of care Expected Outcomes/Goals: 1) Pt to receive nutrition support within 7 days of NPO status 2) Pt diet to advance 3) F/U in 2-3 days LAN CHOWDHURY MD Jun 21, 2024 15:55
--- NOTE | 2024-06-21 19:06 | DVHINCON2 ---
GLADYS KNIGHT RESIDENT 06/21/24 1906: Date of service: Jun 21, 2024 Referring Physician Roberto Menard NP Reason for Consultation Infective endocarditis History of Present Illness Patient is 54-year-old female past medical history of hypertension who initially complaining of shortness of breath found to be altered, intubated for worsening respiratory failure. Over the course of hospitalization, initially patient was on vasopressors, steroids, any drug receiving dialysis for CHANG. Initially patient was treated with cefepime and doxycycline, based on blood culture of strep pneumonia patient's antibiotic transitioned ceftriaxone. Repeat blood culture came negative. Patient underwent SAMIR on 06/15/2024 which showed vegetation of anterior mitral leaflet, which was evident with new onset heart failure and mitral regurgitation. Currently patient is intubated, on mechanical ventilation, requiring minimal vasopressors Levophed, underwent PEG tube and dialysis catheter. No any other new complaints from nursing staff or no any other new night events notified from nursing stopped. Past Medical History Hypertension Past Surgical History As per HPI Family History: Hypertension G8 MOTHER G8 FATHER Allergies: Coded Allergies: UNOBTAINABLE (Unverified , 05/25/24) Pt unresponsive Current Medications Current Medications Medications (Trade) Dose Ordered Sig/Yousif Route PRN Reason Start Time Stop Time Status Last Admin Carvedilol (Coreg Tablet) 6.25 mg Q12HR PO 06/21/24 10:00 06/21/24 10:46 Ceftriaxone Sodium/Dextrose 50 ml @ 50 mls/hr BID IV 06/21/24 22:00 UNV Review of Systems Review of systems can not be obtained given patient is intubated and sedated Vital Signs Vital Signs Date Time Temp Pulse Resp B/P (MAP) Pulse Ox O2 Delivery O2 Flow Rate FiO2 06/21/24 17:27 119/64 06/21/24 16:30 74 18 100 06/21/24 16:21 30 06/21/24 16:00 Mechanical Ventilator+ 06/21/24 16:00 98.9 98.9 Physical Exam General Appearance: Obese, intubated , on mechanical ventilator, sedated. Neck Exam: Normal inspection. Non-tender. Normal alignment Pulmonary/Respiratory: Chest non-tender. Clear bilateral breath sounds Cardiovascular/Chest: Regular rate and rhythm. No murmurs. No JVD. Presence of to poor dialysis catheter. Peripheral Pulses: 2+ Radial (R). 2+ Radial (L). 2+ Pedal (R). 2+ Pedal (L) Abdominal Exam: Normal bowel sounds. Soft. Nontender. No hepatospenomegaly. No masses, PEG tube. Ankle Exam: Negative ankle edema Lower extremities: Negative lower extremity edema Neuro/Mental Status: Presence of pupillary reflex. Labs/Diagnostic Data Labs Test 06/21/24 14:25 06/21/24 03:30 06/20/24 07:18 06/20/24 03:07 Range/Units POC Glucose 104 70-106 mg/dl Sodium Level 139 136-145 mmol/L Potassium Level 4.0 3.5-5.1 mmol/L Chloride Level 98 98-107 mmol/L Carbon Dioxide Level 31 20-31 mmol/L Anion Gap 10 5-15 Blood Urea Nitrogen 41 #H 9-23 mg/dL Creatinine 3.97 H 0.550-1.02 mg/dL Glomerular Filtration Rate Calc 13 >90 mL/min BUN/Creatinine Ratio 10.3 10.0-20.0 Serum Glucose 99 74-106 mg/dL Calcium Level 9.5 8.7-10.4 mg/dL Blood Gas Specimen Type Arterial Blood Gas Sample Site Left radial Blood Gas Patient Temperature 37.0 Arterial Blood Date Drawn [id number] Arterial Blood pH 7.434 7.350-7.450 Arterial Blood Partial Pressure CO2 41.8 32.0-45.0 mmHg Arterial Blood Partial Pressure O2 62.4 L 83.0-108.0 mmHg Arterial Blood HCO3 27.4 21.0-28.0 mmol/L Arterial Blood Oxygen Saturation 90.7 L 94.0-98.0 % Arterial Blood Base Excess 2.9 -2.0-3.0 mmol/L Arterial Blood Oxyhemoglobin 90.2 L 94.0-98.0 % Arterial Blood Carboxyhemoglobin 0.5 0.5-1.5 % Arterial Blood Methemoglobin 0.0 0.0-1.5 % Joni Test Modified Blood Gas Total Hemoglobin 10.30 L 12.0-16.0 g/dL Blood Gas Set Respiration Rate 18.0 Blood Gas Modality Vent - ac FiO2 % 30.0 Blood Gas Tidal Volume 500.0 Blood Gas PEEP or CPAP 8.0 White Blood Count 9.2 4.4-10.8 10^3/uL Red Blood Count 2.72 L 4.0-5.20 10^6/uL Hemoglobin 8.3 L 12.2-16.2 g/dL Hematocrit 25.2 L 36.0-46.0 % Mean Corpuscular Volume 92.8 80.0-100.0 fL Mean Corpuscular Hemoglobin 30.4 28.0-32.0 pg Mean Corpuscular Hemoglobin Concent 32.8 32.0-36.0 g/dL Red Cell Distribution Width 16.0 H 11.8-14.3 % Platelet Count 163 140-450 10^3/uL Mean Platelet Volume 8.1 6.9-10.8 fL Neutrophils (%) (Auto) 73.2 37.0-80.0 % Lymphocytes (%) (Auto) 11.1 10.0-50.0 % Monocytes (%) (Auto) 12.5 H 0.0-12.0 % Eosinophils (%) (Auto) 2.9 0.0-7.0 % Basophils (%) (Auto) 0.3 0.0-2.0 % Neutrophils # (Auto) 6.8 1.6-8.6 10 ^3/uL Lymphocytes # (Auto) 1.0 0.4-5.4 10 ^3/uL Monocytes # (Auto) 1.1 0-1.3 10 ^3/uL Eosinophils # (Auto) 0.3 0-0.8 10 ^3/uL Basophils # (Auto) 0 0-0.2 10 ^3/uL Nucleated Red Blood Cells 0.1 % Prothrombin Time 11.7 9.3-11.8 sec Prothrombin Time INR 1.12 0.9-1.15 Activated Partial Thromboplast Time 28.5 24.5-34.5 SEC Test 06/19/24 08:08 06/19/24 03:28 06/17/24 07:05 06/17/24 03:00 Range/Units Blood Gas Critical Value Read Back Yes Phosphorus Level 3.9 2.4-5.1 mg/dL Blood Gas Spontaneous Rate 22 Blood Gas Inspiratory Pressure 35.0 Bl Gas Inspiratory/Expiratory Ratio 1:3.[address] [facility] Blood Gas Notified [facility]om [facility] Blood Gas Notified Time [id number] Blood Gas Notified By [facility] Magnesium Level 2.1 1.6-2.6 mg/dL Total Bilirubin 0.5 0.2-1.0 mg/dL Aspartate Amino Transferase (AST) 92 H 13-40 U/L Alanine Aminotransferase (ALT) 168 H 7-40 U/L Alkaline Phosphatase 126 H 46-116 U/L Total Protein 6.7 5.7-8.2 g/dL Albumin 3.7 3.2-4.8 g/dL Test 06/03/24 03:57 06/02/24 13:17 06/01/24 04:00 05/28/24 03:43 Range/Units Differential Total Cells Counted 100.0 100 Neutrophils % (Manual) 88 H 37.0-80.0 Band Neutrophils % (Manual) 0 Lymphocytes % (Manual) 9 L 10.0-50.0 Monocytes % (Manual) 3 0-12 Eosinophils % (Manual) 0 0-7 Basophils % (Manual) 0 0.0-2.0 Metamyelocytes % (manual) 0 Myelocytes % (Manual) 0 Promyelocytes % (Manual) 0 Blast Cells % (Manual) 0 Reactive Lymphocytes 0 Platelet Estimate Adequate Ammonia < 10 L 11-32 umol/L Vitamin B1 Level 118.2 66.5-200.0 nmol/L Vitamin B12 Level 836 211-911 pg/mL Vitamin D 25-Hydroxy 26 L . ng/mL 25-Hydroxy Vitamin D2 <1.0 . ng/mL 25-Hydroxy Vitamin D3 26 . ng/mL Hepatitis A IgM Antibody Negative Hepatitis B Surface Antigen Negative Negative Hepatitis B Core IgM Antibody Negative Negative Hepatitis C Antibody Negative Negative Iron Level 24 L 50-170 ug/dL Total Iron Binding Capacity 279 250-425 ug/dL Percent Iron Saturation 8.6 L 15-50 % Ferritin 355.1 H 10-291 ng/mL Smudge Cells 1 /100 WBC Test 05/28/24 01:30 05/27/24 03:35 05/26/24 11:00 05/26/24 06:17 Range/Units Urine Creatinine 248.25 H 30.0-125.0 mg/dL Urine Sodium 27 L 40-220 mmol/L Urine Total Protein 293.2 H 1-14 mg/dL Hypochromasia (manual) Slight Anisocytosis (manual) Slight Random Vancomycin Level 22.4 H 5-10 ug/mL Uric Acid 10.9 H 3.1-7.8 mg/dL Lactic Acid Level 3.6 *H 0.4-2.0 mmol/L Test 05/26/24 03:35 05/25/24 22:40 05/25/24 11:35 05/25/24 08:30 Range/Units Large Platelets Few Triglycerides Level 164 H < 150 mg/dL Cholesterol Level 87 < 200 mg/dL LDL Cholesterol 23 < 100 mg/dL HDL Cholesterol 6 L 40-59 mg/dL Lipase 47 12-53 U/L Troponin I High Sensitivity 1262 *H </=34 ng/L Thyroid Stimulating Hormone (TSH) 0.57 0.55-4.78 uIU/mL Urine Color Yellow Yellow Urine Clarity Clear Clear Urine pH 7.5 5.0-9.0 Urine Specific [place] 1.013 1.001-1.035 Urine Protein 2+ H Negative Urine Ketones Negative Negative Urine Blood Negative Negative /uL Urine Nitrite Negative Negative Urine Bilirubin Negative Negative Urine Urobilinogen 8 H Negative mg/dL Urine Leukocyte Esterase Negative Negative /uL Urine RBC 5 0 - 4 /hpf Urine WBC 1 0 - 5 /hpf Urine Squamous Epithelial Cells Few <5 /hpf Urine Bacteria None seen None Seen /hpf Urine Glucose Normal Normal mg/dL Urine Opiates Screen Neg NEGATIVE Urine Fentanyl Screen Neg NEGATIVE Urine Barbiturates Screen Neg NEGATIVE Urine Phencyclidine Screen Neg NEGATIVE Urine Amphetamines Screen Neg NEGATIVE Urine Benzodiazepines Screen Neg NEGATIVE Urine Cocaine Screen Neg NEGATIVE Urine Cannabinoids Screen Neg NEGATIVE Test 05/25/24 08:24 05/25/24 06:40 Range/Units Hemoglobin A1c 5.6 <5.7 % A1C B-Type Natriuretic Peptide 1384.04 0-100 pg/mL Influenza Type A Antigen Negative Negative Influenza Type B Antigen Negative Negative SARS-CoV-2 Antigen (Rapid) Negative NEGATIVE Microbiology Date/Time Source Procedure Growth Status 06/09/24 17:21 Urine - [place] Urine Culture - Final Complete 06/07/24 10:50 Blood Blood Culture - Final NO GROWTH AFTER 5 DAYS OF INCUBATION. 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 -CT scan of the chest without contrast for possible septic embolization from heart to lungs -patient will need follow-up of Infectious Disease and Cardiology after finishing of antibiotic course -reviewed blood culture: 1st blood culture came positive for strep pneumo, repeat blood culture negative. -recommend repeat echocardiogram after finishing of antibiotic course -patient underwent PEG tube and dialysis catheter , plan for tracheostomy as per primary care team -on hemodialysis -rest of the medical management as per primary care team Plan discussed with: Other (RN) JOSH VERNON MD 06/21/24 2353: Family History: Hypertension G8 MOTHER G8 FATHER Allergies: Coded Allergies: UNOBTAINABLE (Unverified , 05/25/24) Pt unresponsive Assessment Attending Addendum: Case discussed with Dr. Knight. at the time of visit. 40 year old female with a past medical history of hypertension found to be altered , intubated for worsening acute hypoxic respiratory failurw with unclear ideology . concern for septic picture , patient was needing ventilatory support , vasopressures , steroids . no known history of drungs or smoking . no recent medications. orginally treated with cefapine and doxycycline but eventually put on dialysis and found strep pneumonia in blood , likely lung origin . found to have veg itation in the antrium and anterior mitral leflet which was confirmed on SAMIR as well as mitral regurgitation . MRI of brain concerning for possible small focus of subacute ischemia and the right periventricular region likely consistent with septic embolie . SAMIR showed 3 mm vegitation on the intermitral leftlet . currently on ceftriaxone therapy for endocarditis. negative for any type of hepatitis , urine drig screen was negative . no signs of septic embolism problem list - strep pneumonia , bacteremia , endocarditis , septic shock , septic emboli to brain , pneumonia, mitral valve regurgitation , CHF , acute renal failure on dialysis plan: recommend increasing ceftriaxone to 2 G 2x a day to cover septic emboli of brain as well as endocarditis . patient needs piccline to administer antibiotic . continue regimen for 6 weeks and after 6 weeks patient will need to repeat TTE as outpatient . follow up with infectious disease in 4-[address] of chest to rule out possibility of septic emboli to lungs vs ongoing pneumonia/ para nemonic infusion . defer management of ventilatory and dialysis to pulmonology and nephrology. Have reviewed vital sign s, imagine and labs that are relevant to patients case . otherwise agree with Dr. Burrell plan . Unable to do 12 point system review due to patient being on sedation and not awake Otherwise reviewed and agree with Dr Knight's findings, A/P as written in note. PE: General Appearance: Cooperative. Well developed. Well nourished. NAD. intubated and sedated . morbidly obease Head Exam: Normal inspection Neck Exam: Normal inspection. Non-tender. Normal alignment Pulmonary/Respiratory: Chest non-tender. Clear bilateral breath sounds. minimal vent with traces of pressures and unable to ween off vent due to mentating well of sedation but continues to have signs of agitation Cardiovascular/Chest: No murmurs. No JVD. Abdominal Exam: Normal bowel sounds. Soft. Nontender. No hepatosplenomegaly. No masses Skin: no open wounds or lesions Ankle Exam: Lower extremities: GLADYS Balbuena MD RESIDENT Jun 21, 2024 19:06 JOSH VERNON MD Jun 21, 2024 23:53
[2024-06-21 21:58] LABS: Base Excess 1.3 mmol/L (-2.0-3.0)
--- NOTE | 2024-06-21 22:22 | DVHPN2 ---
Progress Note - Dictate Date Seen: Jun 21, 2024 Medical Necessity Reason Pt with a Central, PICC or Fol: No The following are medically ne: Central Line, Putnam Catheter Reason for putnam catheter: Strict I&O Subjective Patient seen and examined at bedside. Sedated, intubated on mechanical ventilator. Overnight events reviewed. vital signs Vital Sign Date Time Temp Pulse Resp B/P (MAP) Pulse Ox O2 Delivery O2 Flow Rate FiO2 06/21/24 20:49 75 18 133/65 (87) 99 30 06/21/24 18:00 Mechanical Ventilator+ 06/21/24 16:00 98.9 98.9 Total Intake and Output 06/20/24 06/20/24 06/21/24 15:00 23:00 07:00 Intake Total 310.852 ml 223.052 ml 435.552 ml Output Total 50 ml 15 ml Balance 310.852 ml 173.052 ml 420.552 ml medications Current Medications Medications Dose Ordered Sig/Yousif Route Start Time Stop Time Status Last Admin Dose Admin Midazolam HCl 50 ml @ 1 mls/hr Q24H IV 05/25/24 06:30 05/29/24 09:11 5 MLS/HR Atorvastatin Calcium 40 mg HS NG 05/25/24 22:00 06/20/24 21:39 40 MG Ondansetron HCl 4 mg Q4HP PRN IV 05/25/24 10:45 Nitroglycerin 0.4 mg Q5MINP PRN SL 05/25/24 10:45 Ibuprofen 400 mg Q4HP PRN GT 05/26/24 01:15 05/26/24 01:42 400 MG Hydralazine HCl 10 mg Q6HP PRN IV 05/29/24 16:30 06/13/24 20:02 10 MG Pantoprazole Sodium 40 mg DAILY IV 05/30/24 10:00 06/21/24 10:44 40 MG Bumetanide 2 mg BIDD IV 05/30/24 18:00 06/21/24 17:27 2 MG Aspirin 81 mg DAILY PO 06/10/24 10:00 06/21/24 10:00 81 MG Nicardipine HCl 50 mg/Sodium Chloride 250 ml @ 25 mls/hr Q10H IV 06/12/24 13:45 06/15/24 19:46 25 MLS/HR Enteral Nutritional Formula 1,000 ml 40ML/HR GT 06/15/24 09:15 06/18/24 22:35 1,000 ML Propofol 100 ml @ 4.398 mls/ hr [id number] IV 06/15/24 21:00 06/21/24 19:36 13.194 MLS/HR Albumin Human 100 ml @ 100 mls/hr PRN PRN IV 06/16/24 11:00 06/20/24 10:05 100 MLS/HR Sodium Chloride 10 ml QSHIFT@10,22 IV 06/17/24 22:00 06/21/24 10:46 10 ML Fentanyl Citrate 250 ml @ 2.5 mls/hr Q24H IV 06/17/24 17:30 06/21/24 09:05 10 MLS/HR Norepinephrine Bitartrate 250 ml @ 3.75 mls/hr Q24H IV 06/18/24 09:45 06/21/24 11:45 3.75 MLS/HR Albuterol 2.5 mg Q6HR NEB 06/20/24 12:00 06/21/24 18:56 2.5 MG Ipratropium [place] 0.5 mg Q6HR NEB 06/20/24 12:00 06/21/24 18:55 0.5 MG Carvedilol 6.25 mg Q12HR PO 06/21/24 10:00 06/21/24 10:46 6.25 MG Ceftriaxone Sodium/Dextrose 50 ml @ 50 mls/hr BID IV 06/21/24 22:00 objective Gen.: Patient lying in bed in medical ICU. Sedated, intubated on mechanical ventilator. Head: Normocephalic, atraumatic. Eyes: PERRLA. Ears: Normal external anatomy. Throat: Endotracheal tube and orogastric tube in place. Neck: Supple, trachea midline. Chest: Transmitted breath sounds bilaterally. Decreased air entry bilaterally. No wheezing. Bibasilar crackles. Cardiovascular: Positive S1, positive S2. Regular rate and rhythm. Abdomen: Positive bowel sounds in all 4 quadrants. Soft, nontender, nondistended. : Putnam in place. Normal external genitalia. Rectal: Deferred. Skin: Warm, dry. Intact. Extremities: 2+ radial pulses bilaterally. No lower extremity edema. Neuro: Sedated laboratory and microbiology Laboratory Tests 06/21/24 03:30 06/20/24 03:07 Test 06/21/24 03:30 Range/Units Serum Glucose 99 74-106 mg/dL Assessment/Plan Impression: Acute hypoxic respiratory failure On mechanical ventilator Septic shock Elevated troponin Acute kidney injury Lactic acidosis Metabolic acidosis Multifocal pneumonia, likely gram negative Pulmonary edema AE COPD Events: On vent support On AC mode; RR 18, VT 500, PEEP 6, FiO2 30% Hemodialysis in AM. Plan for trach in AM. S/p tunneled cath placement. S/p PEG yesterday. Sedated on Propofol Fentanyl for analgesia ABG reviewed, compensated On pressors for hemodynamic support Levophed 4 mcg/min Titrate to keep mean arterial pressure greater than 65 mmHg. Continue antibiotics Tube feeds for nutritional support Wound care Monitor hemoglobin Monitor renal function Monitor electrolytes, supplement as necessary Hemodialysis per Nephrology (s/p HD yesterday, 2 liters removed) Nephrology recs appreciated. Echo showed EF of 40%. SBT/KAREN Awaiting for mentation to improve. LTAC placement Poor prognosis, poor chance of meaningful recovery CT head revealed e/o multiple strokes. Neurology recommendations appreciated Labs and imaging reviewed. Rest of plan as noted below. Plan: s/p intubation on mechanical ventilator. On AC mode; RR 18, VT 500, PEEP 6, FiO2 30% Titrate FIO2 to keep O2 saturation above 90%. VAP bundle. Daily ABG and CXR while intubated Sedated for vent synchrony Continue bronchodilators. Continue antibiotics. F/u cultures. On pressors for hemodynamic support Titrate to keep mean arterial pressure greater than 65 mmHg. Cardiology recs appreciated. Monitor renal function Monitor electrolytes. Supplement as necessary. Monitor ins and outs. Nephrology recs appreciated. IV fluid hydration GI prophylaxis. DVT prophylaxis. Prognosis: Poor given patient's multiple co-morbidities. Condition: Critical Rest of plan per hospitalist and other consultants. A total of 35 minutes of critical care time was spent reviewing the patient record, examining the patient, making a diagnostic and therapeutic plan, discussing this plan with the medical personnel, following up on diagnostic studies and following the patient for clinical stability excluding any and all procedures. At least 50% of this time was spent in direct, [id number] contact. Thank you, MIRNA Stratton, for allowing me to participate in this patient's care. Further recommendations will depend on the patient's clinical course. Please do not hesitate to contact me if you have any questions or concerns. This medical document was created using an electronic medical record system with [employer] computerized dictation system. Although these documentations are being carefully reviewed, there may still be some phonetic and typographical changes. The errors are purely typographical, due to imperfection on the software program, and do not reflect any compromise in the patient's medical care. Dietary Evaluation Review Comments: 1) If GI is accessible consider Jevity 1.2 @ 70ml/hr x 24hr continuous feed goal rate as tolerated 2) If pt remains NPO >7 days consider TPN to meet at least 75% of estimated needs 3) Advance pt diet when medically feasible to a 2gm Sodium diet modified per DIRECTOR OF PROCUREMENT recommendations 4) Continue current plan of care Expected Outcomes/Goals: 1) Pt to receive nutrition support within 7 days of NPO status 2) Pt diet to advance 3) F/U in 2-3 days Plan discussed with: Other (LUZMARIA Richmond) Critical Care Time(min): 35 MELODY ELIZABETH MD Jun 21, 2024 22:22
[2024-06-21] MEDS: cefTRIAXone 2GM/50ML D5W 50 ML IV SCH (22:55)
[2024-06-22] VITALS (109 sets, daily range): BP systolic 77–174; BP diastolic 40–93; PULSE 71–114; RESP 12–31; TEMP 98.6–99.9; O2SAT 98–100
[2024-06-22 04:03] LABS: Basophils # (auto) 0 10 ^3/uL (0-0.2); Basophils % (auto) 0.3 % (0.0-2.0); Eosinophils # (auto) 0.2 10 ^3/uL (0-0.8); Eosinophils % (auto) 2.7 % (0.0-7.0); Hematocrit 24.4 % (36.0-46.0); Hemoglobin 7.8 g/dL (12.2-16.2); Lymphocytes % (auto) 12.9 % (10.0-50.0); Mean Corpuscular Hemoglobin 29.6 pg (28.0-32.0); Mean Corpuscular Hgb Conc. 32.1 g/dL (32.0-36.0); Mean Corpuscular Volume 92.1 fL (80.0-100.0); Monocytes # (auto) 1.1 10 ^3/uL (0-1.3); Monocytes % (auto) 14.7 % (0.0-12.0); Neutrophils # (auto) 5.4 10 ^3/uL (1.6-8.6); Neutrophils % (auto) 69.4 % (37.0-80.0); Nucleated Red Blood Cells % 0.2 %; Platelet Count (auto) 206 10^3/uL (140-450); Red Blood Cells 2.65 10^6/uL (4.0-5.20); Red Cell Distribution Width 15.9 % (11.8-14.3); White Blood Cell 7.7 10^3/uL (4.4-10.8)
[2024-06-22 04:18] LABS: Calcium 9.2 mg/dL (8.7-10.4); Potassium 3.8 mmol/L (3.5-5.1); Sodium 139 mmol/L (136-145)
[2024-06-22 04:19] LABS: Anion Gap 14 (5-15); Carbon Dioxide 28 mmol/L (20-31)
[2024-06-22 04:24] LABS: BUN/Creatinine Ratio 10.9 (10.0-20.0)
[2024-06-22 04:38] LABS: Chloride 97 mmol/L (98-107); Glucose 106 mg/dL (74-106)
[2024-06-22 04:39] LABS: Blood Urea Nitrogen 55 mg/dL (9-23)
--- NOTE | 2024-06-22 08:55 | DVH ---
CHEST RADIOGRAPH Indication: pna Technique: Single frontal view of the chest was obtained Comparison: XY CHEST PORTABLE on DOS: 06/20/24, XY CHEST PORTABLE on DOS: 06/19/24, XY CHEST PORTABLE on DOS: 06/19/24, XY CHEST PORTABLE on DOS: 06/18/24, XY CHEST PORTABLE on DOS: 06/16/24, XY CHEST PORTABLE on DOS: 06/20/24 FINDINGS: Lines and Tubes: Endotracheal tube, enteric catheter and right PICC in satisfactory position. Right h emodialysis catheter tip in the cavoatrial junction Lungs: Worsening multifocal consolidative opacities. Pleura: No effusion. No pneumothorax. Cardiomediastinal contours: Cardiomegaly Bones: Unremarkable IMPRESSION: Worsening multifocal consolidative opacity.
--- NOTE | 2024-06-22 09:19 | DVHPN2 ---
Subjective Patient encephalopathic Reviewed: Care Plan, H&P, Labs, Medications, Previous Orders, Radiology, Other Changes from previous H/P or p: No Changes General: Per HPI Objective Vitals Vital Signs Date Time Temp Pulse Resp B/P (MAP) Pulse Ox O2 Delivery O2 Flow Rate FiO2 06/22/24 08:24 87 22 146/71 (96) 99 30 06/22/24 08:00 Mechanical Ventilator+ 06/22/24 07:30 99.0 210.2 Intake/Output Intake and Output 06/22/24 07:00 Intake Total 1603.406 ml Output Total 70 ml Balance 1533.406 ml IV Total 800.406 ml Tube Feeding 803 ml Output Urine Total 70 ml # Bowel Movements 2 General Appearance: Other (Patient was encephalopathic) HEENT: Atraumatic, PERRLA, Other Lungs: Other Cardiovascular: Normal S1, Normal S2, Other Abdomen: Normal bowel sounds, Soft Genitourinary: Other Neuro: Other Skin: Dry, Intact Psych/Mental Status: Other Medications Current Medications Medications Dose Ordered Sig/Yousif Route Start Time Stop Time Status Last Admin Dose Admin Midazolam HCl 50 ml @ 1 mls/hr Q24H IV 05/25/24 06:30 05/29/24 09:11 5 MLS/HR Atorvastatin Calcium 40 mg HS NG 05/25/24 22:00 06/21/24 22:55 40 MG Ondansetron HCl 4 mg Q4HP PRN IV 05/25/24 10:45 Nitroglycerin 0.4 mg Q5MINP PRN SL 05/25/24 10:45 Hydralazine HCl 10 mg Q6HP PRN IV 05/29/24 16:30 06/13/24 20:02 10 MG Pantoprazole Sodium 40 mg DAILY IV 05/30/24 10:00 06/21/24 10:44 40 MG Bumetanide 2 mg BIDD IV 05/30/24 18:00 06/22/24 05:39 2 MG Aspirin 81 mg DAILY PO 06/10/24 10:00 06/21/24 10:00 81 MG Enteral Nutritional Formula 1,000 ml 40ML/HR GT 06/15/24 09:15 06/18/24 22:35 1,000 ML Propofol 100 ml @ 4.398 mls/ hr [id number] IV 06/15/24 21:00 06/22/24 04:32 13.194 MLS/HR Albumin Human 100 ml @ 100 mls/hr PRN PRN IV 06/16/24 11:00 06/20/24 10:05 100 MLS/HR Sodium Chloride 10 ml QSHIFT@10,22 IV 06/17/24 22:00 06/21/24 22:55 10 ML Fentanyl Citrate 250 ml @ 2.5 mls/hr Q24H IV 06/17/24 17:30 06/22/24 04:34 12.5 MLS/HR Norepinephrine Bitartrate 250 ml @ 3.75 mls/hr Q24H IV 06/18/24 09:45 06/21/24 11:45 3.75 MLS/HR Albuterol 2.5 mg Q6HR NEB 06/20/24 12:00 06/22/24 07:07 2.5 MG Ipratropium [place] 0.5 mg Q6HR NEB 06/20/24 12:00 06/22/24 07:07 0.5 MG Ceftriaxone Sodium/Dextrose 50 ml @ 50 mls/hr BID IV 06/21/24 22:00 06/21/24 22:55 50 MLS/HR Laboratory Results Laboratory Tests 06/22/24 03:17 Chemistry Test 06/22/24 03:17 Calcium Level 9.2 mg/dL (8.7-10.4) Urinalysis Test 05/25/24 08:30 05/28/24 01:30 Urine Color Yellow (Yellow) Urine Clarity Clear (Clear) Urine pH 7.5 (5.0-9.0) Urine Specific [place] 1.013 (1.001-1.035) Urine Protein 2+ (Negative) H Urine Ketones Negative (Negative) Urine Blood Negative /uL (Negative) Urine Nitrite Negative (Negative) Urine Bilirubin Negative (Negative) Urine Urobilinogen 8 mg/dL (Negative) H Urine Leukocyte Esterase Negative /uL (Negative) Urine RBC 5 /hpf (0 - 4) Urine WBC 1 /hpf (0 - 5) Urine Squamous Epithelial Cells Few /hpf (<5) Urine Bacteria None seen /hpf (None Seen) Urine Glucose Normal mg/dL (Normal) Urine Creatinine 248.25 mg/dL (30.0-125.0) H Urine Sodium 27 mmol/L (40-220) L Urine Total Protein 293.2 mg/dL (1-14) H Blood Gas Results Test 06/21/24 21:51 Arterial Blood pH 7.421 (7.350-7.450) FiO2 % 30.0 Microbiology Microbiology Date/Time Source Procedure Growth Status 06/09/24 17:21 Urine - [place] Urine Culture - Final Complete 06/07/24 10:50 Blood Blood Culture - Final NO GROWTH AFTER 5 DAYS OF INCUBATION. Complete 05/27/24 08:50 Nose MRSA Screen - Final Complete 05/25/24 06:50 Sputum Gram Stain - Final Complete 05/25/24 06:50 Respiratory Culture - Final Presumptive Tara albicans Complete Labs and/or images reviewed: Labs reviewed by me, Image(s) reviewed by me Assessment/Plan Assessment/Plan Impression: -severe sepsis with shock , Streptococcus pneumoniae -probable community-acquired pneumonia with Gram-positive cocci -sepsis with Gram-positive cocci -acute hypoxic respiratory failure with mechanical ventilation -obesity -acute kidney injury, anuric -NSTEMI, probably type 2 -hypoalbuminemia -? Angioedema on resolved -respiratory alkalosis -multifocal CVA -endocarditis Plan: Events: Tracheostomy held yesterday due to hypotension and increase PEEP. Patient now on 30% FiO2 and a PEEP of five with a saturation of 100%. All antihypertensive medications are held at this time. Hypotension is probably secondary to increased sedation. No left shift, white blood cell count normal, patient afebrile. Patient did undergo tunneled PermCath yesterday without incident. Transitioned to LTAC once tracheostomy has been placed. -surgical consultation for tracheostomy -Radiology consultation for PermCath placement -GI consultation for PEG tube placement -continue current antibiotics -bronchodilators -antibiotic therapy per Infectious Disease -ventilator settings per internet webmaster -nephrology consultation: HD -PUD, DVT prophylaxis -repeat labs, chest x-ray, ABG in a.m.. Critical care time spent with patient discussing and formulating plan of care: 40 minutes. This does not include time spent performing procedures. This medical document was created using an electronic medical record system with [email or web address] system. Although this document has been carefully reviewed, there may still be some phonetic and typographical errors. These areas are purely typographical due to imperfections of the software programs, and do not reflect any compromise in the patient's medical care. Plan discussed with: Patient, Other (RN) My Orders Orders - OMAR PARK NP Procedure Category Date Status Time Insertion Of Venous XY 06/21/24 Resulted Cath 12:51 * Hide And Skin Classer CONS 06/22/24 Transmitted Consult Chest Xray 1 View XY 06/22/24 Resulted 08:06 Date of Service: Jun 22, 2024 Billing Provider: OMAR PARK NP Common Visit Codes: [id number] CARE 30-74 MIN OMAR PARK NP Jun 22, 2024 09:19
--- NOTE | 2024-06-22 10:40 | DVHPN2 ---
Progress Note - Dictate Date Seen: Jun 22, 2024 Medical Necessity Reason Pt with a Central, PICC or Fol: No The following are medically ne: Central Line, Putnam Catheter Reason for putnam catheter: Strict I&O Subjective Ms. Pandya is a 53 years old right-handed female with a history of morbid obesity, hypertension, the patient was was brought to the [facility] on 05/25/24 with a chief company of altered mental status, respiratory distress. I have seen and examined the patient, I have talked to her nurse. She is responsive to stroke painful stimuli. There is blinking Her boyfriend is in the room, and I have talked to him She is going through hemodialysis Fentanyl 75 mcg/hour, propofol 15 mcg/minute, Levo 4 mcg/minute Urine culture, 05/25/2024: Negative Blood culture, 05/25/2024: Streptococcus pneumoniae UDS, 05/25/2024: Negative Urinalysis, 05/25/2024: WBC: 1, urine leukocyte esterase: Negative ABG, 05/25/2024: Metabolic acidosis, hypoxia, 05/26/2024: Metabolic acidosis, hypoxia, 05/27/24: Metabolic acidosis, hypoxia WBC/HB/PLT/MCV, 06/02/2024: 22.4/9/342/89.4 06/09/2024: 19.6/9.4/235/91.6, 06/12/2024: 8.2/9.2/205/90.6 BUN/CR, 05/26/2024: 62/7.01 06/02/2024: 123/6.59, 06/09/2024: 137/6.32, 06/12/2024: 71/4.33 HGB A1c, 05/25/2024: 5.6 Lactic acid, 05/25/2024: 3.6, 4.6, 4.2, 05/26/2024: 3.6 Troponin one high sensitivity, 05/25/2024: 1060, 1354, 1262 TBI/AST/ALT/AP, 05/26/2024: 2/246/167/98, 06/07/2024: 0.9/139/464/93 TG/HDL/LDL/HDL, 05/25/2024: 192/98/40/8 Vitamin B12, 06/02/2024: 836 TSH, 05/25/2024: 0.57 SAMIR, 06/15/2024: Vegetation anterior mitral leaflet Carotid Doppler, 06/15/2024: 1. There is no hemodynamically significant stenosis in the right common carotid and internal carotid arteries. There is elevated peak systolic velocity in the right external carotid artery. 2. Nonvisualization of the left carotid and vertebral arteries secondary to overlying bandage. Consider further evaluation with CTA neck Chest x-ray, 05/25/2024: 1. Distal tip of the endotracheal tube is approximately 5.5 cm above the level of the nik. 2. Poorly visualized enteric tube at its distal aspect. Appears to reach the gastroesophageal junction, although not visualized distal to this point. Correlate with clinical findings. 3. Bilateral airspace opacities and interstitial opacities, may be due to multifocal pneumonia or pulmonary edema in the appropriate clinical setting CT head, 05/25/2024: No gross acute intracranial process CT head, 06/02/24: 1. Interval development of 2 foci of subcortical parenchymal hemorrhage in the left frontal lobe. No mass effect or midline shift. 2. Moderate amount of fluid in the posterior nasopharynx likely related to intubation. Recommend suctioning to prevent aspiration. 3. Small bilateral mastoid effusions. We are in the process of reaching out to the nurse or physician in charge of the patient to convey the findings. CT head, 06/04/2024: Redemonstrated are 2 hyperdense foci in the subcortical left frontal lobe which may represent small foci of parenchymal hemorrhage. There is no significant surrounding edema or associated mass effect CT head, 06/06/2024: The 2 foci of left frontal subcortical hemorrhage are less conspicuous in the current exam partially resolved. No new foci of hemorrhage MR head, 06/15/2024: Extensive periventricular and deep white matter signal abnormality most of which is likely chronic. Possible small focus of subacute ischemia in the right periventricular region. No definite acute intracranial hemorrhage on MRI. Clinical correlation and continued follow-up is recommended. vital signs Vital Sign Date Time Temp Pulse Resp B/P (MAP) Pulse Ox O2 Delivery O2 Flow Rate FiO2 06/22/24 09:53 87 22 146/71 99 30 06/22/24 08:00 Mechanical Ventilator+ 06/22/24 07:30 99.0 210.2 Total Intake and Output 06/21/24 06/21/24 06/22/24 15:00 23:00 07:00 Intake Total 228.052 ml 741.802 ml 633.552 ml Output Total 20 ml 50 ml Balance 228.052 ml 721.802 ml 583.552 ml medications Current Medications Medications Dose Ordered Sig/Yousif Route Start Time Stop Time Status Last Admin Dose Admin Midazolam HCl 50 ml @ 1 mls/hr Q24H IV 05/25/24 06:30 05/29/24 09:11 5 MLS/HR Atorvastatin Calcium 40 mg HS NG 05/25/24 22:00 06/21/24 22:55 40 MG Ondansetron HCl 4 mg Q4HP PRN IV 05/25/24 10:45 Nitroglycerin 0.4 mg Q5MINP PRN SL 05/25/24 10:45 Hydralazine HCl 10 mg Q6HP PRN IV 05/29/24 16:30 06/13/24 20:02 10 MG Pantoprazole Sodium 40 mg DAILY IV 05/30/24 10:00 06/21/24 10:44 40 MG Bumetanide 2 mg BIDD IV 05/30/24 18:00 06/22/24 05:39 2 MG Aspirin 81 mg DAILY PO 06/10/24 10:00 06/21/24 10:00 81 MG Enteral Nutritional Formula 1,000 ml 40ML/HR GT 06/15/24 09:15 06/18/24 22:35 1,000 ML Propofol 100 ml @ 4.398 mls/ hr [id number] IV 06/15/24 21:00 06/22/24 04:32 13.194 MLS/HR Albumin Human 100 ml @ 100 mls/hr PRN PRN IV 06/16/24 11:00 06/20/24 10:05 100 MLS/HR Sodium Chloride 10 ml QSHIFT@10,22 IV 06/17/24 22:00 06/21/24 22:55 10 ML Fentanyl Citrate 250 ml @ 2.5 mls/hr Q24H IV 06/17/24 17:30 06/22/24 04:34 12.5 MLS/HR Norepinephrine Bitartrate 250 ml @ 3.75 mls/hr Q24H IV 06/18/24 09:45 06/21/24 11:45 3.75 MLS/HR Albuterol 2.5 mg Q6HR NEB 06/20/24 12:00 06/22/24 07:07 2.5 MG Ipratropium [place] 0.5 mg Q6HR NEB 06/20/24 12:00 06/22/24 07:07 0.5 MG Ceftriaxone Sodium/Dextrose 50 ml @ 50 mls/hr BID IV 06/21/24 22:00 06/21/24 22:55 50 MLS/HR objective The patient is well-nourished and well-developed with no distress. The patient is intubated MENTAL STATUS: Subjective CRANIAL NERVES: Pupils are round and reactive, with a left-sided slightly bigger. There are spontaneous conjugated eye movement. No signs of facial weakness. There are gagging or coughing reflexes. SENSATION: Okay to strong painful stimuli MOTOR: Normal tone in the upper and lower extremity. Normal muscle bulk. No fasciculations. No spontaneous movement REFLEXES: Deep tendon reflexes are symmetrical. No pathological reflexes. CEREBELLAR/COORDINATION: Deferred GAIT/STATION: deferred. laboratory and microbiology Laboratory Tests 06/22/24 03:17 Test 06/22/24 03:17 Range/Units Serum Glucose 106 74-106 mg/dL Problem List Altered mental status/Coma Hypoxic encephalopathy secondary to respiratory failure Metabolic encephalopathy secondary to acidosis, sepsis, septic shock, kidney failure Multiple acute/subacute strokes Heart attack Pneumonia Sepsis, septic shock Endocarditis Acute on chronic kidney failure Acute petechial hemorrhage in the left frontal lobe, improving on follow-up CT Anisocoria, uncertain clinical significance Assessment/Plan Monitoring Supportive treatment ICU care Follow-up labs EEG Stabilize vitals Respiratory support/vent management Oxygen IV antibiotics GI prophylaxis/Protonix DVT prophylaxis/heparin Nephrology on case Pulmonology on case Infectious diseases on case She is s/p PEG feeding tube insertion She needs tracheostomy More recommendation per clinical course This medical document was created using an electronic medical record system with [email or web address] dictation system. Although this document has been carefully reviewed, there may still be some phonetic and typographical errors. These areas are purely typographical due to imperfections of the software programs, and do not reflect any compromise in the patient's medical care Prognosis poor, guarded Dietary Evaluation Review Comments: 1) If GI is accessible consider Jevity 1.2 @ 70ml/hr x 24hr continuous feed goal rate as tolerated 2) If pt remains NPO >7 days consider TPN to meet at least 75% of estimated needs 3) Advance pt diet when medically feasible to a 2gm Sodium diet modified per HEARING AID MECHANIC recommendations 4) Continue current plan of care Expected Outcomes/Goals: 1) Pt to receive nutrition support within 7 days of NPO status 2) Pt diet to advance 3) F/U in 2-3 days Plan discussed with: Other PILAR HOOD MD Jun 22, 2024 10:40
--- NOTE | 2024-06-22 16:41 | DVHPN2 ---
Progress Note Date Seen: Jun 22, 2024 Medical Necessity Reason Pt with a Central, PICC or Fol: No The following are medically ne: Central Line, Putnam Catheter Reason for putnam catheter: Strict I&O Subjective Patient reports: Other Review of Systems: Deferred Objective vital signs Vital Sign Date Time Temp Pulse Resp B/P (MAP) Pulse Ox O2 Delivery O2 Flow Rate FiO2 06/22/24 16:36 91 22 144/84 (104) 99 30 06/22/24 16:00 Mechanical Ventilator+ 06/22/24 11:30 99.0 210.2 Total Intake and Output 06/21/24 06/21/24 06/22/24 15:00 23:00 07:00 Intake Total 228.052 ml 741.802 ml 633.552 ml Output Total 20 ml 50 ml Balance 228.052 ml 721.802 ml 583.552 ml medications Current Medications Medications Dose Ordered Sig/Yousif Route Start Time Stop Time Status Last Admin Dose Admin Midazolam HCl 50 ml @ 1 mls/hr Q24H IV 05/25/24 06:30 05/29/24 09:11 5 MLS/HR Atorvastatin Calcium 40 mg HS NG 05/25/24 22:00 06/21/24 22:55 40 MG Ondansetron HCl 4 mg Q4HP PRN IV 05/25/24 10:45 Nitroglycerin 0.4 mg Q5MINP PRN SL 05/25/24 10:45 Hydralazine HCl 10 mg Q6HP PRN IV 05/29/24 16:30 06/13/24 20:02 10 MG Pantoprazole Sodium 40 mg DAILY IV 05/30/24 10:00 06/22/24 12:31 40 MG Bumetanide 2 mg BIDD IV 05/30/24 18:00 06/22/24 05:39 2 MG Aspirin 81 mg DAILY PO 06/10/24 10:00 06/21/24 10:00 81 MG Enteral Nutritional Formula 1,000 ml 40ML/HR GT 06/15/24 09:15 06/18/24 22:35 1,000 ML Propofol 100 ml @ 4.398 mls/ hr [id number] IV 06/15/24 21:00 06/22/24 16:26 13.194 MLS/HR Albumin Human 100 ml @ 100 mls/hr PRN PRN IV 06/16/24 11:00 06/20/24 10:05 100 MLS/HR Sodium Chloride 10 ml QSHIFT@10,22 IV 06/17/24 22:00 06/22/24 11:39 10 ML Fentanyl Citrate 250 ml @ 2.5 mls/hr Q24H IV 06/17/24 17:30 06/22/24 04:34 12.5 MLS/HR Norepinephrine Bitartrate 250 ml @ 3.75 mls/hr Q24H IV 06/18/24 09:45 06/22/24 11:38 3.75 MLS/HR Albuterol 2.5 mg Q6HR NEB 06/20/24 12:00 06/22/24 12:40 2.5 MG Ipratropium [place] 0.5 mg Q6HR NEB 06/20/24 12:00 06/22/24 12:40 0.5 MG Ceftriaxone Sodium/Dextrose 50 ml @ 50 mls/hr BID IV 06/21/24 22:00 06/22/24 12:31 50 MLS/HR Examination: GENERAL:Abnormal, LUNGS:Abnormal, NEURO:Abnormal laboratory and microbiology Laboratory Tests 06/22/24 03:17 Test 06/22/24 03:17 Range/Units Serum Glucose 106 74-106 mg/dL Microbiology Date/Time Source Procedure Growth Status 06/09/24 17:21 Urine - [place] Urine Culture - Final Complete 06/07/24 10:50 Blood Blood Culture - Final NO GROWTH AFTER 5 DAYS OF INCUBATION. Complete 05/27/24 08:50 Nose MRSA Screen - Final Complete 05/25/24 06:50 Sputum Gram Stain - Final Complete 05/25/24 06:50 Respiratory Culture - Final Presumptive Tara albicans Complete Problem List/Assessment/Plan Problem List/Assessment/Plan Acute kidney injury likely ATN needing HD Unknown recent baseline Severe sepsis Morbid obesity Ventilator-dependent hypoxic respiratory failure recs Hemodialysis today Status post tunneled catheter Next HD tomorrow Plan discussed with: Other Dietary Evaluation Review Comments: 1) If GI is accessible consider Jevity 1.2 @ 70ml/hr x 24hr continuous feed goal rate as tolerated 2) If pt remains NPO >7 days consider TPN to meet at least 75% of estimated needs 3) Advance pt diet when medically feasible to a 2gm Sodium diet modified per PASTEURIZER recommendations 4) Continue current plan of care Expected Outcomes/Goals: 1) Pt to receive nutrition support within 7 days of NPO status 2) Pt diet to advance 3) F/U in 2-3 days LAN CHOWDHURY MD Jun 22, 2024 16:41
--- NOTE | 2024-06-22 16:53 | DVHPN2 ---
Progress Note Date Seen: Jun 22, 2024 Resident Creating Document: DHRUV ESPINAL RESIDENT Medical Necessity Reason Pt with a Central, PICC or Fol: No The following are medically ne: Central Line, Putnam Catheter Reason for putnam catheter: Strict I&O Subjective Review of Systems Patient seen and examined at the bedside. Scheduled for tracheostomy 06/23. NPO starting midnight. Objective vital signs Vital Sign Date Time Temp Pulse Resp B/P (MAP) Pulse Ox O2 Delivery O2 Flow Rate FiO2 06/22/24 16:36 91 22 144/84 (104) 99 30 06/22/24 16:00 Mechanical Ventilator+ 06/22/24 11:30 99.0 210.2 Total Intake and Output 06/21/24 06/21/24 06/22/24 15:00 23:00 07:00 Intake Total 228.052 ml 741.802 ml 633.552 ml Output Total 20 ml 50 ml Balance 228.052 ml 721.802 ml 583.552 ml medications Current Medications Medications Dose Ordered Sig/Yousif Route Start Time Stop Time Status Last Admin Dose Admin Midazolam HCl 50 ml @ 1 mls/hr Q24H IV 05/25/24 06:30 05/29/24 09:11 5 MLS/HR Atorvastatin Calcium 40 mg HS NG 05/25/24 22:00 06/21/24 22:55 40 MG Ondansetron HCl 4 mg Q4HP PRN IV 05/25/24 10:45 Nitroglycerin 0.4 mg Q5MINP PRN SL 05/25/24 10:45 Hydralazine HCl 10 mg Q6HP PRN IV 05/29/24 16:30 06/13/24 20:02 10 MG Pantoprazole Sodium 40 mg DAILY IV 05/30/24 10:00 06/22/24 12:31 40 MG Bumetanide 2 mg BIDD IV 05/30/24 18:00 06/22/24 05:39 2 MG Aspirin 81 mg DAILY PO 06/10/24 10:00 06/21/24 10:00 81 MG Enteral Nutritional Formula 1,000 ml 40ML/HR GT 06/15/24 09:15 06/18/24 22:35 1,000 ML Propofol 100 ml @ 4.398 mls/ hr [id number] IV 06/15/24 21:00 06/22/24 16:26 13.194 MLS/HR Albumin Human 100 ml @ 100 mls/hr PRN PRN IV 06/16/24 11:00 06/20/24 10:05 100 MLS/HR Sodium Chloride 10 ml QSHIFT@10,22 IV 06/17/24 22:00 06/22/24 11:39 10 ML Fentanyl Citrate 250 ml @ 2.5 mls/hr Q24H IV 06/17/24 17:30 06/22/24 04:34 12.5 MLS/HR Norepinephrine Bitartrate 250 ml @ 3.75 mls/hr Q24H IV 06/18/24 09:45 06/22/24 11:38 3.75 MLS/HR Albuterol 2.5 mg Q6HR NEB 06/20/24 12:00 06/22/24 12:40 2.5 MG Ipratropium [place] 0.5 mg Q6HR NEB 06/20/24 12:00 06/22/24 12:40 0.5 MG Ceftriaxone Sodium/Dextrose 50 ml @ 50 mls/hr BID IV 06/21/24 22:00 06/22/24 12:31 50 MLS/HR Examination Patient lying in bed, intubated and mechanically ventilated Cardiovascular: Regular S1 and S2. No murmurs, gallops or rubs. No JVD elevation. No pedal edema Respiratory: Normal B/L air entry on room air. Clear lung sounds on auscultation Abdomen: Soft, nontender, nondistended, normoactive bowel sounds, no rebound tenderness, no organomegaly, no masses. Peg tube site clean, dry. Genitourinary: Deferred MSK/skin: Mobilizes 4 limbs. Skin is dry and warm laboratory and microbiology Laboratory Tests 06/22/24 03:17 Test 06/22/24 03:17 Range/Units Serum Glucose 106 74-106 mg/dL Microbiology Date/Time Source Procedure Growth Status 06/09/24 17:21 Urine - [place] Urine Culture - Final Complete 06/07/24 10:50 Blood Blood Culture - Final NO GROWTH AFTER 5 DAYS OF INCUBATION. Complete 05/27/24 08:50 Nose MRSA Screen - Final Complete 05/25/24 06:50 Sputum Gram Stain - Final Complete 05/25/24 06:50 Respiratory Culture - Final Presumptive Tara albicans Complete Labs and/or images reviewed: Labs reviewed by me, Image(s) reviewed by me Problem List/Assessment/Plan Problem List/Assessment/Plan Intubated and mechanically ventilated Septic shock Acute hypoxic respiratory failure with mechanical ventilation Status post G-tube Plan: Plan for tracheostomy in the a.m.. NPO starting midnight. Given that the patient has no active GI issues, we will sign off at this point. Please reconsult us if necessary. Plan discussed with the nurse. Case discussed with Dr. Linda Plan discussed with: Patient Dietary Evaluation Review Comments: 1) If GI is accessible consider Jevity 1.2 @ 70ml/hr x 24hr continuous feed goal rate as tolerated 2) If pt remains NPO >7 days consider TPN to meet at least 75% of estimated needs 3) Advance pt diet when medically feasible to a 2gm Sodium diet modified per HISTOLOGY SPECIALIST recommendations 4) Continue current plan of care Expected Outcomes/Goals: 1) Pt to receive nutrition support within 7 days of NPO status 2) Pt diet to advance 3) F/U in 2-3 days DHRUV ESPINAL RESIDENT Jun 22, 2024 16:53
--- NOTE | 2024-06-22 18:31 | DVHPN2 ---
GLADYS LEONE RESIDENT 06/22/24 1831: Consult Progress Note Date Seen: Jun 22, 2024 Subjective Patient reports: No new complaints Other Systems: Continued to be on ventilator, plan for tracheostomy tomorrow. Off vasopressors. No any other new complaints. Plan to continue current management. Physical Exam General Appearance: Obese, intubated , on mechanical ventilator, sedated. Neck Exam: Normal inspection. Non-tender. Normal alignment Pulmonary/Respiratory: Chest non-tender. Clear bilateral breath sounds Cardiovascular/Chest: Regular rate and rhythm. No murmurs. No JVD. Presence of to poor dialysis catheter. Peripheral Pulses: 2+ Radial (R). 2+ Radial (L). 2+ Pedal (R). 2+ Pedal (L) Abdominal Exam: Normal bowel sounds. Soft. Nontender. No hepatospenomegaly. No masses, PEG tube. Ankle Exam: Negative ankle edema Lower extremities: Negative lower extremity edema Neuro/Mental Status: Presence of pupillary reflex. Objective vital signs Vital Sign Date Time Temp Pulse Resp B/P (MAP) Pulse Ox O2 Delivery O2 Flow Rate FiO2 06/22/24 18:08 83 18 113/59 (77) 99 30 06/22/24 18:00 99.7 211.5 06/22/24 18:00 Mechanical Ventilator+ Total Intake and Output 06/21/24 06/21/24 06/22/24 15:00 23:00 07:00 Intake Total 228.052 ml 741.802 ml 633.552 ml Output Total 20 ml 50 ml Balance 228.052 ml 721.802 ml 583.552 ml medications Current Medications Medications Dose Ordered Sig/Yousif Route Start Time Stop Time Status Last Admin Dose Admin Midazolam HCl 50 ml @ 1 mls/hr Q24H IV 05/25/24 06:30 05/29/24 09:11 5 MLS/HR Atorvastatin Calcium 40 mg HS NG 05/25/24 22:00 06/21/24 22:55 40 MG Ondansetron HCl 4 mg Q4HP PRN IV 05/25/24 10:45 Nitroglycerin 0.4 mg Q5MINP PRN SL 05/25/24 10:45 Hydralazine HCl 10 mg Q6HP PRN IV 05/29/24 16:30 06/13/24 20:02 10 MG Pantoprazole Sodium 40 mg DAILY IV 05/30/24 10:00 06/22/24 12:31 40 MG Bumetanide 2 mg BIDD IV 05/30/24 18:00 06/22/24 17:26 2 MG Aspirin 81 mg DAILY PO 06/10/24 10:00 06/21/24 10:00 81 MG Enteral Nutritional Formula 1,000 ml 40ML/HR GT 06/15/24 09:15 06/18/24 22:35 1,000 ML Propofol 100 ml @ 4.398 mls/ hr [id number] IV 06/15/24 21:00 06/22/24 16:26 13.194 MLS/HR Albumin Human 100 ml @ 100 mls/hr PRN PRN IV 06/16/24 11:00 06/20/24 10:05 100 MLS/HR Sodium Chloride 10 ml QSHIFT@10,22 IV 06/17/24 22:00 06/22/24 11:39 10 ML Fentanyl Citrate 250 ml @ 2.5 mls/hr Q24H IV 06/17/24 17:30 06/22/24 04:34 12.5 MLS/HR Norepinephrine Bitartrate 250 ml @ 3.75 mls/hr Q24H IV 06/18/24 09:45 06/22/24 11:38 3.75 MLS/HR Albuterol 2.5 mg Q6HR NEB 06/20/24 12:00 06/22/24 18:09 2.5 MG Ipratropium [place] 0.5 mg Q6HR NEB 06/20/24 12:00 06/22/24 18:08 0.5 MG Ceftriaxone Sodium/Dextrose 50 ml @ 50 mls/hr BID IV 06/21/24 22:00 06/22/24 12:31 50 MLS/HR laboratory and microbiology Laboratory Tests 06/22/24 03:17 Test 06/22/24 03:17 Range/Units Serum Glucose 106 74-106 mg/dL Problem List/Assessment/Plan Problem List/Assessment/Plan 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 Plan for tracheostomy tomorrow. -continue ceftriaxone 2 g twice daily, recommend for total six weeks for endocarditis -antibiotic admission to via PICC line -CT scan of the chest without contrast for possible septic embolization from heart to lungs -patient will need follow-up of Infectious Disease and Cardiology after finishing of antibiotic course -reviewed blood culture: 1st blood culture came positive for strep pneumo, repeat blood culture negative. -recommend repeat TTE after finishing of antibiotic course -patient underwent PEG tube and dialysis catheter , plan for tracheostomy as per primary care team -on hemodialysis -rest of the medical management as per primary care team and pulmonology nephrology. Plan discussed with: Other (RN) Dietary Evaluation Review Comments: 1) If GI is accessible consider Jevity 1.2 @ 70ml/hr x 24hr continuous feed goal rate as tolerated 2) If pt remains NPO >7 days consider TPN to meet at least 75% of estimated needs 3) Advance pt diet when medically feasible to a 2gm Sodium diet modified per [employer] recommendations 4) Continue current plan of care Expected Outcomes/Goals: 1) Pt to receive nutrition support within 7 days of NPO status 2) Pt diet to advance 3) F/U in 2-3 days JOSH VERNON MD 06/26/241925: Consult Progress Note Problem List/Assessment/Plan Problem List/Assessment/Plan _ Attending Addendum: Case discussed with Dr. Leone. at the time of visit. 40 year old female with a past medical history of hypertension found to be altered , intubated for worsening acute hypoxic respiratory failurw with unclear ideology . concern for septic picture , patient was needing ventilatory support , vasopressures , steroids . no known history of drungs or smoking . no recent medications. orginally treated with cefapine and doxycycline but eventually put on dialysis and found strep pneumonia in blood , likely lung origin . found to have vegitation in the antrium and anterior mitral leflet which was confirmed on SAMIR as well as mitral regurgitation . MRI of brain concerning for possible small focus of subacute ischemia and the right periventricular region likely consistent with septic embolie . SAMIR showed 3 mm vegitation on the intermitral leftlet . currently on ceftriaxone therapy for endocarditis. negative for any type of hepatitis , urine drig screen was negative . no signs of septic embolism problem list - strep pneumonia , bacteremia , endocarditis , septic shock , septic emboli to brain , pneumonia, mitral valve regurgitation , CHF , acute renal failure on dialysis plan: recommend increasing ceftriaxone to 2 G 2x a day to cover septic emboli of brain as well as endocarditis . patient needs piccline to administer antibiotic . continue regimen for 6 weeks and after 6 weeks patient will need to repeat TTE as outpatient . follow up with infectious disease in 4-[address] of chest to rule out possibility of septic emboli to lungs vs ongoing pneumonia/ para nemonic infusion . defer management of ventilatory and dialysis to pulmonology and nephrology. Have reviewed vital sign s, imagine and labs that are relevant to patients case . otherwise agree with Dr. Burrell plan . Unable to do 12 point system review due to patient being on sedation and not awake 2/4: Difficult to ween off vent and has been having improved airspace opacities on chest xray and since has been started on Ceftriaxone 2 grams Q12 , chest Ct was done and there was no finding to suggest septic emboli or persistent plural effusions that could be keeping patients from being off the ventilator . Continue Ceftriaxone 2 grams every 12 hours for 6 weeks via piccline . prognosis overall is poor , may proceed with tracheostomy . no contraindications from infectious disease of additional infectious work up needed Otherwise reviewed and agree with Dr Leone's findings, A/P as written in note. PE: General Appearance: Cooperative. Well developed. Well nourished. NAD. intubated and sedated . morbidly obease Head Exam: Normal inspection Neck Exam: Normal inspection. Non-tender. Normal alignment Pulmonary/Respiratory: Chest non-tender. Clear bilateral breath sounds. minimal vent with traces of pressures and unable to ween off vent due to mentating well of sedation but continues to have signs of agitation Cardiovascular/Chest: No murmurs. No JVD. Abdominal Exam: Normal bowel sounds. Soft. Nontender. No hepatosplenomegaly. No masses Skin: no open wounds or lesions Ankle Exam: Lower extremities: Plan discussed with: Patient MARIMAREZRAGLADYS RESIDENT Jun 22, 2024 18:31 JOSH VERNON MD Jun 26, 2024 19:26
--- NOTE | 2024-06-22 22:35 | DVHPN2 ---
Progress Note - Dictate Date Seen: Jun 22, 2024 Medical Necessity Reason Pt with a Central, PICC or Fol: No The following are medically ne: Central Line, Putnam Catheter Reason for putnam catheter: Strict I&O Subjective Patient seen and examined at bedside. Sedated, intubated on mechanical ventilator. Overnight events reviewed. vital signs Vital Sign Date Time Temp Pulse Resp B/P (MAP) Pulse Ox O2 Delivery O2 Flow Rate FiO2 06/22/24 22:19 86 18 145/77 (99) 100 30 06/22/24 19:00 99.5 211.1 06/22/24 18:00 Mechanical Ventilator+ Total Intake and Output 06/21/24 06/21/24 06/22/24 15:00 23:00 07:00 Intake Total 228.052 ml 741.802 ml 633.552 ml Output Total 20 ml 50 ml Balance 228.052 ml 721.802 ml 583.552 ml medications Current Medications Medications Dose Ordered Sig/Yousif Route Start Time Stop Time Status Last Admin Dose Admin Midazolam HCl 50 ml @ 1 mls/hr Q24H IV 05/25/24 06:30 05/29/24 09:11 5 MLS/HR Atorvastatin Calcium 40 mg HS NG 05/25/24 22:00 06/22/24 21:40 40 MG Ondansetron HCl 4 mg Q4HP PRN IV 05/25/24 10:45 Nitroglycerin 0.4 mg Q5MINP PRN SL 05/25/24 10:45 Hydralazine HCl 10 mg Q6HP PRN IV 05/29/24 16:30 06/13/24 20:02 10 MG Pantoprazole Sodium 40 mg DAILY IV 05/30/24 10:00 06/22/24 12:31 40 MG Bumetanide 2 mg BIDD IV 05/30/24 18:00 06/22/24 17:26 2 MG Aspirin 81 mg DAILY PO 06/10/24 10:00 06/21/24 10:00 81 MG Enteral Nutritional Formula 1,000 ml 40ML/HR GT 06/15/24 09:15 06/18/24 22:35 1,000 ML Propofol 100 ml @ 4.398 mls/ hr [id number] IV 06/15/24 21:00 06/22/24 21:48 13.194 MLS/HR Albumin Human 100 ml @ 100 mls/hr PRN PRN IV 06/16/24 11:00 06/20/24 10:05 100 MLS/HR Sodium Chloride 10 ml QSHIFT@10,22 IV 06/17/24 22:00 06/22/24 21:40 10 ML Fentanyl Citrate 250 ml @ 2.5 mls/hr Q24H IV 06/17/24 17:30 06/22/24 04:34 12.5 MLS/HR Norepinephrine Bitartrate 250 ml @ 3.75 mls/hr Q24H IV 06/18/24 09:45 06/22/24 11:38 3.75 MLS/HR Albuterol 2.5 mg Q6HR NEB 06/20/24 12:00 06/22/24 18:09 2.5 MG Ipratropium [place] 0.5 mg Q6HR NEB 06/20/24 12:00 06/22/24 18:08 0.5 MG Ceftriaxone Sodium/Dextrose 50 ml @ 50 mls/hr BID IV 06/21/24 22:00 06/22/24 21:40 50 MLS/HR objective Gen.: Patient lying in bed in medical ICU. Sedated, intubated on mechanical ventilator. Head: Normocephalic, atraumatic. Eyes: PERRLA. Ears: Normal external anatomy. Throat: Endotracheal tube and orogastric tube in place. Neck: Supple, trachea midline. Chest: Transmitted breath sounds bilaterally. Decreased air entry bilaterally. No wheezing. Bibasilar crackles. Cardiovascular: Positive S1, positive S2. Regular rate and rhythm. Abdomen: Positive bowel sounds in all 4 quadrants. Soft, nontender, nondistended. : Putnam in place. Normal external genitalia. Rectal: Deferred. Skin: Warm, dry. Intact. Extremities: 2+ radial pulses bilaterally. No lower extremity edema. Neuro: Sedated laboratory and microbiology Laboratory Tests 06/22/24 03:17 Test 06/22/24 03:17 Range/Units Serum Glucose 106 74-106 mg/dL Assessment/Plan Impression: Acute hypoxic respiratory failure On mechanical ventilator Septic shock Elevated troponin Acute kidney injury Lactic acidosis Metabolic acidosis Multifocal pneumonia, likely gram negative Pulmonary edema AE COPD Events: On vent support On AC mode; RR 18, VT 500 -->550, PEEP 6 -->5, FiO2 30% S/p tunneled cath placement yesterday Patient underwent hemodialysis today. Plan for trach in AM. S/p PEG yesterday Sedated on Propofol Fentanyl for analgesia On pressors for hemodynamic support Levophed 2 mcg/min Titrate to keep mean arterial pressure greater than 65 mmHg. Improved pressor requirements Continue antibiotics Tube feeds for nutritional support Wound care Monitor hemoglobin Blood pressure control Diurese to euvolemia Monitor renal function Monitor electrolytes, supplement as necessary Hemodialysis per Nephrology - s/p HD today Nephrology recs appreciated. Echo showed EF of 40%. SBT/KAREN Awaiting for mentation to improve. LTAC placement Poor prognosis, poor chance of meaningful recovery CT head revealed e/o multiple strokes. Neurology recommendations appreciated Labs and imaging reviewed. Rest of plan as noted below. Plan: s/p intubation on mechanical ventilator. On AC mode; RR 18, VT 550, PEEP 5, FiO2 30% Titrate FIO2 to keep O2 saturation above 90%. VAP bundle. Daily ABG and CXR while intubated Sedated for vent synchrony Continue bronchodilators. Continue antibiotics. F/u cultures. On pressors for hemodynamic support Titrate to keep mean arterial pressure greater than 65 mmHg. Cardiology recs appreciated. Monitor renal function Monitor electrolytes. Supplement as necessary. Monitor ins and outs. Nephrology recs appreciated. IV fluid hydration GI prophylaxis. DVT prophylaxis. Prognosis: Poor given patient's multiple co-morbidities. Condition: Critical Rest of plan per hospitalist and other consultants. A total of 35 minutes of critical care time was spent reviewing the patient record, examining the patient, making a diagnostic and therapeutic plan, discussing this plan with the medical personnel, following up on diagnostic studies and following the patient for clinical stability excluding any and all procedures. At least 50% of this time was spent in direct, [id number] contact. Thank you, MIRNA Stratton, for allowing me to participate in this patient's care. Further recommendations will depend on the patient's clinical course. Please do not hesitate to contact me if you have any questions or concerns. This medical document was created using an electronic medical record system with [employer] system. Although these documentations are being carefully reviewed, there may still be some phonetic and typographical changes. The errors are purely typographical, due to imperfection on the software program, and do not reflect any compromise in the patient's medical care. Dietary Evaluation Review Comments: 1) If GI is accessible consider Jevity 1.2 @ 70ml/hr x 24hr continuous feed goal rate as tolerated 2) If pt remains NPO >7 days consider TPN to meet at least 75% of estimated needs 3) Advance pt diet when medically feasible to a 2gm Sodium diet modified per [employer] recommendations 4) Continue current plan of care Expected Outcomes/Goals: 1) Pt to receive nutrition support within 7 days of NPO status 2) Pt diet to advance 3) F/U in 2-3 days Plan discussed with: Other (LUZMARIA Richmond) Critical Care Time(min): 35 MELODY ELIZABETH MD Jun 22, 2024 22:35
[2024-06-23] VITALS (103 sets, daily range): BP systolic 79–161; BP diastolic 39–83; PULSE 67–116; RESP 8–33; TEMP 97.5–98.8; O2SAT 99–100
[2024-06-23 04:02] LABS: Chloride 99 mmol/L (98-107); Potassium 3.8 mmol/L (3.5-5.1); Sodium 139 mmol/L (136-145)
[2024-06-23 04:03] LABS: Anion Gap 13 (5-15); Calcium 9.1 mg/dL (8.7-10.4); Carbon Dioxide 27 mmol/L (20-31)
[2024-06-23 04:08] LABS: BUN/Creatinine Ratio 9.2 (10.0-20.0); Glucose 92 mg/dL (74-106)
[2024-06-23 04:15] LABS: INR 1.11 (0.9-1.15); Partial Thromboplastin Time 25.6 SEC (24.5-34.5); Prothrombin Time 11.6 sec (9.3-11.8)
[2024-06-23 04:38] LABS: Blood Urea Nitrogen 35 mg/dL (9-23)
--- NOTE | 2024-06-23 04:42 | DVH ---
Procedure: CT CHEST WITHOUT CONTRAST Reason for study/Clinical History: Septic emboli Comparison Study: Chest radiograph dated 06/22/2024. Exam Date: 06/23/2024 03:28 AM TECHNIQUE: Multidetector CT of the chest was performed from the lung apices to the upper abdomen with out the use of intravenous contract. Coronal and sagittal multiplanar reformats were performed. Radiation Dose Information: CT Dose: CTDI volume is 31.3 mGy. Dose-length product is 1380.75 mGy*cm The dose indicators for CT are the volume Computed Tomography (CT) Dose Index (CTDIvol) and the Dose Length Product (DLP), and are measured in units of mGy and mGy-cm, respectively. These indicators are not patient dose, but values generated from the CT scanner acquisition factors. The report includes radiation exposure data for exposures received during this examination. FINDINGS: Support lines and tubes: Endotracheal tube terminates above the nik. There is a right central veno us catheter with its tip terminating in the right atrium. Lower neck: Normal thyroid. Lungs: Bilateral lower lobe consolidations. No cavitary lesions. Central airways: Patent. Pleura: No pleural effusion or significant pneumothorax. Heart/Vascular Structures: Cardiomegaly. No pericardial effusion. Normal caliber thoracic aorta and m ain pulmonary artery. Lymph Nodes: No adenopathy Musculoskeletal: No acute osseous abnormality. Soft tissues: Normal. Upper abdomen: Limited portions of the upper abdomen are unremarkable. IMPRESSION: 1. Bilateral lower lobe consolidations which may reflect atelectasis or pneumonia. No findings to sug gest septic emboli. 2. Cardiomegaly. Radiation optimization: All CT scans at this facility use at least one of these dose optimization cierra hniques: automated exposure control mA and/or kV adjustment per patient size (includes targeted exam s where dose is matched to clinical indication) or iterative reconstruction.
[2024-06-23 07:48] LABS: Base Excess -0.7 mmol/L (-2.0-3.0)
--- NOTE | 2024-06-23 08:49 | DVHPN2 ---
Subjective Patient encephalopathic Reviewed: Care Plan, H&P, Labs, Medications, Previous Orders, Radiology, Other Changes from previous H/P or p: No Changes General: Per HPI Objective Vitals Vital Signs Date Time Temp Pulse Resp B/P (MAP) Pulse Ox O2 Delivery O2 Flow Rate FiO2 06/23/24 08:20 142/78 06/23/24 08:11 93 33 99 30 06/23/24 07:30 98.2 208.8 06/23/24 06:00 Mechanical Ventilator+ Intake/Output Intake and Output 06/23/24 07:00 Intake Total 868.656 ml Output Total 45 ml Balance 823.656 ml Intake Oral 50 ml IV Total 751.656 ml Tube Feeding 67 ml Output Urine Total 45 ml General Appearance: Other (Patient chemically sedated) HEENT: Atraumatic, PERRLA, Other Neck: Other (Tracheostomy) Lungs: Other (Mechanical ventilation. Decreased breath sounds at bases.) Chest/Breasts: Other (Tunneled HD cath) Cardiovascular: Normal S1, Normal S2, Other Abdomen: Normal bowel sounds, Soft Genitourinary: Other Neuro: Other Skin: Dry, Intact Psych/Mental Status: Other Medications Current Medications Medications Dose Ordered Sig/Yousif Route Start Time Stop Time Status Last Admin Dose Admin Midazolam HCl 50 ml @ 1 mls/hr Q24H IV 05/25/24 06:30 05/29/24 09:11 5 MLS/HR Atorvastatin Calcium 40 mg HS NG 05/25/24 22:00 06/22/24 21:40 40 MG Ondansetron HCl 4 mg Q4HP PRN IV 05/25/24 10:45 Nitroglycerin 0.4 mg Q5MINP PRN SL 05/25/24 10:45 Hydralazine HCl 10 mg Q6HP PRN IV 05/29/24 16:30 06/13/24 20:02 10 MG Pantoprazole Sodium 40 mg DAILY IV 05/30/24 10:00 06/22/24 12:31 40 MG Bumetanide 2 mg BIDD IV 05/30/24 18:00 06/23/24 06:23 2 MG Aspirin 81 mg DAILY PO 06/10/24 10:00 06/21/24 10:00 81 MG Enteral Nutritional Formula 1,000 ml 40ML/HR GT 06/15/24 09:15 06/18/24 22:35 1,000 ML Propofol 100 ml @ 4.398 mls/ hr [id number] IV 06/15/24 21:00 06/23/24 04:36 13.194 MLS/HR Albumin Human 100 ml @ 100 mls/hr PRN PRN IV 06/16/24 11:00 06/20/24 10:05 100 MLS/HR Sodium Chloride 10 ml QSHIFT@10,22 IV 06/17/24 22:00 06/22/24 21:40 10 ML Fentanyl Citrate 250 ml @ 2.5 mls/hr Q24H IV 06/17/24 17:30 06/23/24 08:20 7.5 MLS/HR Norepinephrine Bitartrate 250 ml @ 3.75 mls/hr Q24H IV 06/18/24 09:45 06/22/24 11:38 3.75 MLS/HR Albuterol 2.5 mg Q6HR NEB 06/20/24 12:00 06/23/24 06:24 2.5 MG Ipratropium [place] 0.5 mg Q6HR NEB 06/20/24 12:00 06/23/24 06:25 0.5 MG Ceftriaxone Sodium/Dextrose 50 ml @ 50 mls/hr BID IV 06/21/24 22:00 06/22/24 21:40 50 MLS/HR Laboratory Results Laboratory Tests 06/22/24 03:17 06/23/24 02:57 Chemistry Test 06/23/24 02:57 Calcium Level 9.1 mg/dL (8.7-10.4) Coagulation Test 06/23/24 02:57 Prothrombin Time 11.6 sec (9.3-11.8) Prothrombin Time INR 1.11 (0.9-1.15) Activated Partial Thromboplast Time 25.6 SEC (24.5-34.5) Urinalysis Test 05/25/24 08:30 05/28/24 01:30 Urine Color Yellow (Yellow) Urine Clarity Clear (Clear) Urine pH 7.5 (5.0-9.0) Urine Specific [place] 1.013 (1.001-1.035) Urine Protein 2+ (Negative) H Urine Ketones Negative (Negative) Urine Blood Negative /uL (Negative) Urine Nitrite Negative (Negative) Urine Bilirubin Negative (Negative) Urine Urobilinogen 8 mg/dL (Negative) H Urine Leukocyte Esterase Negative /uL (Negative) Urine RBC 5 /hpf (0 - 4) Urine WBC 1 /hpf (0 - 5) Urine Squamous Epithelial Cells Few /hpf (<5) Urine Bacteria None seen /hpf (None Seen) Urine Glucose Normal mg/dL (Normal) Urine Creatinine 248.25 mg/dL (30.0-125.0) H Urine Sodium 27 mmol/L (40-220) L Urine Total Protein 293.2 mg/dL (1-14) H Blood Gas Results Test 06/23/24 07:32 Arterial Blood pH 7.440 (7.350-7.450) FiO2 % 30.0 Microbiology Microbiology Date/Time Source Procedure Growth Status 06/09/24 17:21 Urine - [place] Urine Culture - Final Complete 06/07/24 10:50 Blood Blood Culture - Final NO GROWTH AFTER 5 DAYS OF INCUBATION. Complete 05/27/24 08:50 Nose MRSA Screen - Final Complete 05/25/24 06:50 Sputum Gram Stain - Final Complete 05/25/24 06:50 Respiratory Culture - Final Presumptive Tara albicans Complete Labs and/or images reviewed: Labs reviewed by me, Image(s) reviewed by me Assessment/Plan Assessment/Plan Impression: -severe sepsis with shock , Streptococcus pneumoniae -probable community-acquired pneumonia with Gram-positive cocci -sepsis with Gram-positive cocci -acute hypoxic respiratory failure with mechanical ventilation -obesity -acute kidney injury, anuric -NSTEMI, probably type 2 -hypoalbuminemia -? Angioedema on resolved -respiratory alkalosis -multifocal CVA -endocarditis Plan: Events: Plans for tracheostomy today. Patient hemodynamically stable. On low- dose norepinephrine. Vasopressor therapy probably secondary to sedation. All antihypertensives has been stopped. Repeat cultures have no growth. Patient with normal white blood cell count, no left shift. -surgical consultation for tracheostomy -continue current antibiotics -bronchodilators -antibiotic therapy per Infectious Disease -ventilator settings per letter sorting machine operator -nephrology consultation: HD -PUD, DVT prophylaxis -repeat labs, chest x-ray, ABG in a.m.. -social service consultation for LTAC placement Critical care time spent with patient discussing and formulating plan of care: 40 minutes. This does not include time spent performing procedures. This medical document was created using an electronic medical record system with Dragon computerized dictation system. Although this document has been carefully reviewed, there may still be some phonetic and typographical errors. These areas are purely typographical due to imperfections of the software programs, and do not reflect any compromise in the patient's medical care. Plan discussed with: Patient, Other (RN) My Orders Orders - OMAR PARK NP Procedure Category Date Status Time Abg W/ Co-Ox RT 06/23/24 Logged 06:00 Type And Screen BBK 06/23/24 In Process 07:00 Complete Blood Count LAB 06/24/24 Verified 04:00 Basic Metabolic Panel LAB 06/24/24 Verified 04:00 * Ditto Machine Operator CONS 06/23/24 Verified Consult Date of Service: Jun 23, 2024 Billing Provider: OMAR PARK NP Common Visit Codes: [id number] CARE 30-74 MIN OMAR PARK NP Jun 23, 2024 08:48
--- NOTE | 2024-06-23 10:54 | DVHPN2 ---
Progress Note - Dictate Date Seen: Jun 23, 2024 Medical Necessity Reason Pt with a Central, PICC or Fol: No The following are medically ne: Central Line, Putnam Catheter Reason for putnam catheter: Strict I&O Subjective Ms. Pandya is a 53 years old right-handed female with a history of morbid obesity, hypertension, the patient was was brought to the [facility] on 05/25/24 with a chief company of altered mental status, respiratory distress. I have seen and examined the patient, I have talked to her nurse. She is responsive to stroke painful stimuli. There is blinking She is tracheostomy today Fentanyl 75 mcg/hour, propofol 15 mcg/minute, Levo 2 mcg/minute Urine culture, 05/25/2024: Negative Blood culture, 05/25/2024: Streptococcus pneumoniae UDS, 05/25/2024: Negative Urinalysis, 05/25/2024: WBC: 1, urine leukocyte esterase: Negative ABG, 05/25/2024: Metabolic acidosis, hypoxia, 05/26/2024: Metabolic acidosis, hypoxia, 05/27/24: Metabolic acidosis, hypoxia WBC/HB/PLT/MCV, 06/02/2024: 22.4/9/342/89.4 06/09/2024: 19.6/9.4/235/91.6, 06/12/2024: 8.2/9.2/205/90.6 BUN/CR, 05/26/2024: 62/7.01 06/02/2024: 123/6.59, 06/09/2024: 137/6.32, 06/12/2024: 71/4.33 HGB A1c, 05/25/2024: 5.6 Lactic acid, 05/25/2024: 3.6, 4.6, 4.2, 05/26/2024: 3.6 Troponin one high sensitivity, 05/25/2024: 1060, 1354, 1262 TBI/AST/ALT/AP, 05/26/2024: 2/246/167/98, 06/07/2024: 0.9/139/464/93 TG/HDL/LDL/HDL, 05/25/2024: 192/98/40/8 Vitamin B12, 06/02/2024: 836 TSH, 05/25/2024: 0.57 SAMIR, 06/15/2024: Vegetation anterior mitral leaflet Carotid Doppler, 06/15/2024: 1. There is no hemodynamically significant stenosis in the right common carotid and internal carotid arteries. There is elevated peak systolic velocity in the right external carotid artery. 2. Nonvisualization of the left carotid and vertebral arteries secondary to overlying bandage. Consider further evaluation with CTA neck Chest x-ray, 05/25/2024: 1. Distal tip of the endotracheal tube is approximately 5.5 cm above the level of the nik. 2. Poorly visualized enteric tube at its distal aspect. Appears to reach the gastroesophageal junction, although not visualized distal to this point. Correlate with clinical findings. 3. Bilateral airspace opacities and interstitial opacities, may be due to multifocal pneumonia or pulmonary edema in the appropriate clinical setting CT head, 05/25/2024: No gross acute intracranial process CT head, 06/02/24: 1. Interval development of 2 foci of subcortical parenchymal hemorrhage in the left frontal lobe. No mass effect or midline shift. 2. Moderate amount of fluid in the posterior nasopharynx likely related to intubation. Recommend suctioning to prevent aspiration. 3. Small bilateral mastoid effusions. We are in the process of reaching out to the nurse or physician in charge of the patient to convey the findings. CT head, 06/04/2024: Redemonstrated are 2 hyperdense foci in the subcortical left frontal lobe which may represent small foci of parenchymal hemorrhage. There is no significant surrounding edema or associated mass effect CT head, 06/06/2024: The 2 foci of left frontal subcortical hemorrhage are less conspicuous in the current exam partially resolved. No new foci of hemorrhage CT chest, 06/23/2024: 1. Bilateral lower lobe consolidations which may reflect atelectasis or pneumonia. No findings to suggest septic emboli. 2. Cardiomegaly. MR head, 06/15/2024: Extensive periventricular and deep white matter signal abnormality most of which is likely chronic. Possible small focus of subacute ischemia in the right periventricular region. No definite acute intracranial hemorrhage on MRI. Clinical correlation and continued follow-up is recommended. vital signs Vital Sign Date Time Temp Pulse Resp B/P (MAP) Pulse Ox O2 Delivery O2 Flow Rate FiO2 06/23/24 10:24 87 22 113/62 (79) 100 30 06/23/24 10:15 98.2 208.8 06/23/24 10:00 Mechanical Ventilator+ Total Intake and Output 06/22/24 06/22/24 06/23/24 15:00 23:00 07:00 Intake Total 260.552 ml 338.052 ml 270.052 ml Output Total 20 ml 25 ml Balance 260.552 ml 318.052 ml 245.052 ml medications Current Medications Medications Dose Ordered Sig/Yousif Route Start Time Stop Time Status Last Admin Dose Admin Midazolam HCl 50 ml @ 1 mls/hr Q24H IV 05/25/24 06:30 05/29/24 09:11 5 MLS/HR Atorvastatin Calcium 40 mg HS NG 05/25/24 22:00 06/22/24 21:40 40 MG Ondansetron HCl 4 mg Q4HP PRN IV 05/25/24 10:45 Nitroglycerin 0.4 mg Q5MINP PRN SL 05/25/24 10:45 Hydralazine HCl 10 mg Q6HP PRN IV 05/29/24 16:30 06/13/24 20:02 10 MG Pantoprazole Sodium 40 mg DAILY IV 05/30/24 10:00 06/23/24 09:51 40 MG Bumetanide 2 mg BIDD IV 05/30/24 18:00 06/23/24 06:23 2 MG Aspirin 81 mg DAILY PO 06/10/24 10:00 06/21/24 10:00 81 MG Enteral Nutritional Formula 1,000 ml 40ML/HR GT 06/15/24 09:15 06/18/24 22:35 1,000 ML Propofol 100 ml @ 4.398 mls/ hr [id number] IV 06/15/24 21:00 06/23/24 10:13 13.194 MLS/HR Albumin Human 100 ml @ 100 mls/hr PRN PRN IV 06/16/24 11:00 06/20/24 10:05 100 MLS/HR Sodium Chloride 10 ml QSHIFT@10,22 IV 06/17/24 22:00 06/23/24 09:57 10 ML Fentanyl Citrate 250 ml @ 2.5 mls/hr Q24H IV 06/17/24 17:30 06/23/24 08:20 7.5 MLS/HR Norepinephrine Bitartrate 250 ml @ 3.75 mls/hr Q24H IV 06/18/24 09:45 06/22/24 11:38 3.75 MLS/HR Albuterol 2.5 mg Q6HR NEB 06/20/24 12:00 06/23/24 06:24 2.5 MG Ipratropium [place] 0.5 mg Q6HR NEB 06/20/24 12:00 06/23/24 06:25 0.5 MG Ceftriaxone Sodium/Dextrose 50 ml @ 50 mls/hr BID IV 06/21/24 22:00 06/23/24 09:51 50 MLS/HR objective The patient is well-nourished and well-developed with no distress. The patient is intubated MENTAL STATUS: Subjective CRANIAL NERVES: Pupils are round and reactive, with a left-sided slightly bigger. There are spontaneous conjugated eye movement. No signs of facial weakness. There are gagging or coughing reflexes. SENSATION: Response to strong painful stimuli MOTOR: Normal tone in the upper and lower extremity. Normal muscle bulk. No fasciculations. No spontaneous movement REFLEXES: Deep tendon reflexes are symmetrical. No pathological reflexes. CEREBELLAR/COORDINATION: Deferred GAIT/STATION: deferred. laboratory and microbiology Laboratory Tests 06/23/24 02:57 06/22/24 03:17 Test 06/23/24 02:57 Range/Units Serum Glucose 92 74-106 mg/dL Problem List Altered mental status/Coma Hypoxic encephalopathy secondary to respiratory failure Metabolic encephalopathy secondary to acidosis, sepsis, septic shock, kidney failure Multiple acute/subacute strokes Heart attack Pneumonia Sepsis, septic shock Endocarditis Acute on chronic kidney failure Acute petechial hemorrhage in the left frontal lobe, improving on follow-up CT Anisocoria, uncertain clinical significance Assessment/Plan Monitoring Supportive treatment ICU care Follow-up labs EEG Stabilize vitals/pressor drip Respiratory support/vent management Oxygen IV antibiotics GI prophylaxis/Protonix DVT prophylaxis/heparin Nephrology on case Pulmonology on case Infectious diseases on case She is s/p PEG feeding tube insertion She needs tracheostomy More recommendation per clinical course This medical document was created using an electronic medical record system with [employer] system. Although this document has been carefully reviewed, there may still be some phonetic and typographical errors. These areas are purely typographical due to imperfections of the software programs, and do not reflect any compromise in the patient's medical care Prognosis guarded Dietary Evaluation Review Comments: 1) If GI is accessible consider Jevity 1.2 @ 70ml/hr x 24hr continuous feed goal rate as tolerated 2) If pt remains NPO >7 days consider TPN to meet at least 75% of estimated needs 3) Advance pt diet when medically feasible to a 2gm Sodium diet modified per [employer] recommendations 4) Continue current plan of care Expected Outcomes/Goals: 1) Pt to receive nutrition support within 7 days of NPO status 2) Pt diet to advance 3) F/U in 2-3 days Plan discussed with: Other PILAR HOOD MD Jun 23, 2024 10:54
[2024-06-23] MEDS ORDERED: GLYCOPYRROLATE 0.2 MG/ML 1ML VIAL ONE (11:36)
[2024-06-23] MEDS: LIDOCAINE W/ EPINEPHRINE 1% 20ML VIAL ONE (12:15)
[2024-06-23] MEDS: BUPIVACAINE HCL 50 ML ONE (12:16)
--- NOTE | 2024-06-23 13:05 | DVHOP ---
DATE OF SURGERY: 06/23/2024 PREOPERATIVE DIAGNOSIS: Ventilator-dependent respiratory failure. POSTOPERATIVE DIAGNOSIS: Ventilator-dependent respiratory failure. SURGEON: Richmond Craft MD CENTRAL STATION OPERATOR: Reece Broderick. ANESTHESIA: General. ANESTHESIOLOGIST: Dr. Sylvester. PROCEDURE: Tracheostomy. DESCRIPTION OF PROCEDURE: Under general anesthesia with the patient's skin prepped and draped, an anterior cervical vertical incision was made and deepened with electrocautery. Adipose tissue, which was excessive and abundant, was excised in order to facilitate the procedure. The tissues anterior to the trachea were swept aside. The thyroid was retracted inferiorly. The anterior cervical vein was ligated and divided. The tracheal ring 2 and 3 were then used to fashion a tracheotomy, which was dilated in order to accommodate a size 8-Irish tracheostomy tube. The size 8 tracheostomy nonfenestrated tube was then placed and directed into the trachea. Once reaching the final position as the endotracheal tube was being withdrawn by the anesthesiologist, the tracheostomy was connected to the ventilator with an immediate recapture of CO2 and returned to normal gas exchange. The tracheostomy was secured by insufflation of the tracheostomy cuff with 7 mL of air and further secured with 2-0 Prolene sutures in a circumferential umbilical tape. The patient remained in unchanged clinical condition at the termination of procedure, left the operating room following an accurate needle and sponge count. Chest x-ray was ordered, pending at the time of this dictation. The patient's son was thoroughly informed at phone number [phone]. Richmond Craft MD PF/MARYA TID: [id number] RECEIPT: [id number]
--- NOTE | 2024-06-23 13:24 | DVH ---
CHEST RADIOGRAPH Indication: s/p tracheostomy Technique: Single frontal view of the chest was obtained Comparison: XY CHEST XRAY 1 VIEW on DOS: 06/22/24, XY CHEST PORTABLE on DOS: 06/20/24, XY CHEST PORTABLE on DOS: 06/19/24, XY CHEST PORTABLE on DOS: 06/19/24, XY CHEST PORTABLE on DOS: 06/18/24, XY CHEST XRAY 1 VIEW on DOS: 06/22/24 FINDINGS: Lines and Tubes: enteric catheter and right PICC in satisfactory position. Right hemodialysis roel ter tip in the cavoatrial junction. Status post tracheostomy. Lungs: Worsening multifocal consolidative opacities. Pleura: No effusion. No pneumothorax. Cardiomediastinal contours: Cardiomegaly Bones: Unremarkable IMPRESSION: Worsening multifocal consolidative opacity.
--- NOTE | 2024-06-23 17:38 | DVHPN2 ---
Progress Note Date Seen: Jun 23, 2024 Medical Necessity Reason Pt with a Central, PICC or Fol: No The following are medically ne: Central Line, Putnam Catheter Reason for putnam catheter: Strict I&O Subjective Patient reports: Other (Events noted) Review of Systems: Deferred Objective vital signs Vital Sign Date Time Temp Pulse Resp B/P (MAP) Pulse Ox O2 Delivery O2 Flow Rate FiO2 06/23/24 16:30 97.9 80 19 106/59 (75) 100 208.2 06/23/24 16:20 30 06/23/24 16:00 Mechanical Ventilator+ Total Intake and Output 06/22/24 06/22/24 06/23/24 15:00 23:00 07:00 Intake Total 260.552 ml 338.052 ml 270.052 ml Output Total 20 ml 25 ml Balance 260.552 ml 318.052 ml 245.052 ml medications Current Medications Medications Dose Ordered Sig/Yousif Route Start Time Stop Time Status Last Admin Dose Admin Midazolam HCl 50 ml @ 1 mls/hr Q24H IV 05/25/24 06:30 05/29/24 09:11 5 MLS/HR Atorvastatin Calcium 40 mg HS NG 05/25/24 22:00 06/22/24 21:40 40 MG Ondansetron HCl 4 mg Q4HP PRN IV 05/25/24 10:45 Nitroglycerin 0.4 mg Q5MINP PRN SL 05/25/24 10:45 Hydralazine HCl 10 mg Q6HP PRN IV 05/29/24 16:30 06/13/24 20:02 10 MG Pantoprazole Sodium 40 mg DAILY IV 05/30/24 10:00 06/23/24 09:51 40 MG Bumetanide 2 mg BIDD IV 05/30/24 18:00 06/23/24 06:23 2 MG Aspirin 81 mg DAILY PO 06/10/24 10:00 06/21/24 10:00 81 MG Enteral Nutritional Formula 1,000 ml 40ML/HR GT 06/15/24 09:15 06/18/24 22:35 1,000 ML Propofol 100 ml @ 4.398 mls/ hr [id number] IV 06/15/24 21:00 06/23/24 15:40 21.99 MLS/HR Albumin Human 100 ml @ 100 mls/hr PRN PRN IV 06/16/24 11:00 06/20/24 10:05 100 MLS/HR Sodium Chloride 10 ml QSHIFT@10,22 IV 06/17/24 22:00 06/23/24 09:57 10 ML Fentanyl Citrate 250 ml @ 2.5 mls/hr Q24H IV 06/17/24 17:30 06/23/24 08:20 7.5 MLS/HR Norepinephrine Bitartrate 250 ml @ 3.75 mls/hr Q24H IV 06/18/24 09:45 06/22/24 11:38 3.75 MLS/HR Albuterol 2.5 mg Q6HR NEB 06/20/24 12:00 06/23/24 11:30 2.5 MG Ipratropium [place] 0.5 mg Q6HR NEB 06/20/24 12:00 06/23/24 11:30 0.5 MG Ceftriaxone Sodium/Dextrose 50 ml @ 50 mls/hr BID IV 06/21/24 22:00 06/23/24 09:51 50 MLS/HR Examination: GENERAL:Abnormal, LUNGS:Abnormal, MSK:Abnormal, NEURO:Abnormal laboratory and microbiology Laboratory Tests 06/23/24 02:57 06/22/24 03:17 Test 06/23/24 02:57 Range/Units Serum Glucose 92 74-106 mg/dL Microbiology Date/Time Source Procedure Growth Status 06/09/24 17:21 Urine - [place] Urine Culture - Final Complete 06/07/24 10:50 Blood Blood Culture - Final NO GROWTH AFTER 5 DAYS OF INCUBATION. Complete 05/27/24 08:50 Nose MRSA Screen - Final Complete 05/25/24 06:50 Sputum Gram Stain - Final Complete 05/25/24 06:50 Respiratory Culture - Final Presumptive Tara albicans Complete Problem List/Assessment/Plan Problem List/Assessment/Plan Acute kidney injury likely ATN needing HD Unknown recent baseline Severe sepsis Morbid obesity Ventilator-dependent hypoxic respiratory failure recs Hemodialysis tomorrow Status post tunneled catheter Next HD tomorrow Status post tracheostomy Plan discussed with: Other Dietary Evaluation Review Comments: 1) If GI is accessible consider Jevity 1.2 @ 70ml/hr x 24hr continuous feed goal rate as tolerated 2) If pt remains NPO >7 days consider TPN to meet at least 75% of estimated needs 3) Advance pt diet when medically feasible to a 2gm Sodium diet modified per [employer] recommendations 4) Continue current plan of care Expected Outcomes/Goals: 1) Pt to receive nutrition support within 7 days of NPO status 2) Pt diet to advance 3) F/U in 2-3 days LAN CHOWDHURY MD Jun 23, 2024 17:38
--- NOTE | 2024-06-23 19:06 | DVHPN2 ---
GLADYS LEONE RESIDENT 06/23/24 1906: Consult Progress Note Date Seen: Jun 23, 2024 Subjective Patient reports: No new complaints Other Systems: Patient continued to be on ventilator, underwent tracheostomy today. No any other new events. Physical Exam General Appearance: Obese, intubated , on mechanical ventilator, sedated. Neck Exam: Normal inspection. Non-tender. Normal alignment Pulmonary/Respiratory: Chest non-tender. Clear bilateral breath sounds Cardiovascular/Chest: Regular rate and rhythm. No murmurs. No JVD. Presence of to poor dialysis catheter. Peripheral Pulses: 2+ Radial (R). 2+ Radial (L). 2+ Pedal (R). 2+ Pedal (L) Abdominal Exam: Normal bowel sounds. Soft. Nontender. No hepatospenomegaly. No masses, PEG tube. Ankle Exam: Negative ankle edema Lower extremities: Negative lower extremity edema Neuro/Mental Status: Presence of pupillary reflex. Objective vital signs Vital Sign Date Time Temp Pulse Resp B/P (MAP) Pulse Ox O2 Delivery O2 Flow Rate FiO2 06/23/24 18:18 67 19 90/48 (62) 100 30 06/23/24 18:00 Mechanical Ventilator+ 06/23/24 18:00 98.2 208.8 Total Intake and Output 06/22/24 06/22/24 06/23/24 15:00 23:00 07:00 Intake Total 260.552 ml 338.052 ml 270.052 ml Output Total 20 ml 25 ml Balance 260.552 ml 318.052 ml 245.052 ml medications Current Medications Medications Dose Ordered Sig/Yousif Route Start Time Stop Time Status Last Admin Dose Admin Midazolam HCl 50 ml @ 1 mls/hr Q24H IV 05/25/24 06:30 05/29/24 09:11 5 MLS/HR Atorvastatin Calcium 40 mg HS NG 05/25/24 22:00 06/22/24 21:40 40 MG Ondansetron HCl 4 mg Q4HP PRN IV 05/25/24 10:45 Nitroglycerin 0.4 mg Q5MINP PRN SL 05/25/24 10:45 Hydralazine HCl 10 mg Q6HP PRN IV 05/29/24 16:30 06/13/24 20:02 10 MG Pantoprazole Sodium 40 mg DAILY IV 05/30/24 10:00 2/5/25 09:51 40 MG Bumetanide 2 mg BIDD IV 05/30/24 18:00 06/23/24 17:30 2 MG Aspirin 81 mg DAILY PO 06/10/24 10:00 06/21/24 10:00 81 MG Enteral Nutritional Formula 1,000 ml 40ML/HR GT 06/15/24 09:15 06/18/24 22:35 1,000 ML Propofol 100 ml @ 4.398 mls/ hr [id number] IV 06/15/24 21:00 06/23/24 15:40 21.99 MLS/HR Albumin Human 100 ml @ 100 mls/hr PRN PRN IV 06/16/24 11:00 06/20/24 10:05 100 MLS/HR Sodium Chloride 10 ml QSHIFT@10,22 IV 06/17/24 22:00 06/23/24 09:57 10 ML Fentanyl Citrate 250 ml @ 2.5 mls/hr Q24H IV 06/17/24 17:30 06/23/24 08:20 7.5 MLS/HR Norepinephrine Bitartrate 250 ml @ 3.75 mls/hr Q24H IV 06/18/24 09:45 06/22/24 11:38 3.75 MLS/HR Albuterol 2.5 mg Q6HR NEB 06/20/24 12:00 06/23/24 18:18 2.5 MG Ipratropium [place] 0.5 mg Q6HR NEB 06/20/24 12:00 06/23/24 18:18 0.5 MG Ceftriaxone Sodium/Dextrose 50 ml @ 50 mls/hr BID IV 06/21/24 22:00 06/23/24 09:51 50 MLS/HR laboratory and microbiology Laboratory Tests 06/23/24 02:57 06/22/24 03:17 Test 06/23/24 02:57 Range/Units Serum Glucose 92 74-106 mg/dL Problem List/Assessment/Plan Problem List/Assessment/Plan Septic shock with subacute endocarditis involving the anterior leaflet of the mitral valve Acute on chronic HFrEF, , newly diagnosed Mitral valve regurgitation Acute stroke due to septic emboli Acute hypoxic respiratory failure Hypertensive urgency, currently hypotensive on vasopressor Acute kidney injury on hemodialysis Morbidly obese Plan/recommendation Dr.Da -continue ceftriaxone 2 g twice daily, recommend for total six weeks for endocarditis. -reviewed CT scan of the chest. Bilateral lung base consolidation/atelectasis -antibiotic admission to via PICC line -CT scan of the chest without contrast for possible septic embolization from heart to lungs -patient will need follow-up of Infectious Disease and Cardiology after finishing of antibiotic course -reviewed blood culture: 1st blood culture came positive for strep pneumo, repeat blood culture negative. -recommend repeat TTE after finishing of antibiotic course -patient underwent PEG tube and dialysis catheter , plan for tracheostomy as per primary care team -on hemodialysis -rest of the medical management as per primary care team and pulmonology nephrology. Plan discussed with: Other (RN) Dietary Evaluation Review Comments: 1) If GI is accessible consider Jevity 1.2 @ 70ml/hr x 24hr continuous feed goal rate as tolerated 2) If pt remains NPO >7 days consider TPN to meet at least 75% of estimated needs 3) Advance pt diet when medically feasible to a 2gm Sodium diet modified per M[employer]IT TEACHER recommendations 4) Continue current plan of care Expected Outcomes/Goals: 1) Pt to receive nutrition support within 7 days of NPO status 2) Pt diet to advance 3) F/U in 2-3 days JOSH VERNON MD 06/26/241927: Consult Progress Note Problem List/Assessment/Plan Problem List/Assessment/Plan _ Attending Addendum: Case discussed with Dr. Leone. at the time of visit. 40 year old female with a past medical history of hypertension found to be altered , intubated for worsening acute hypoxic respiratory failurw with unclear ideology . concern for septic picture , patient was needing ventilatory support , vasopressures , steroids . no known history of drungs or smoking . no recent medications. orginally treated with cefapine and doxycycline but eventually put on dialysis and found strep pneumonia in blood , likely lung origin . found to have vegitation in the antrium and anterior mitral leflet which was confirmed on SAMIR as well as mitral regurgitation . MRI of brain concerning for possible small focus of subacute ischemia and the right periventricular region likely consistent with septic embolie . SAMIR showed 3 mm vegitation on the intermitral leftlet . currently on ceftriaxone therapy for endocarditis. negative for any type of hepatitis , urine drig screen was negative . no signs of septic embolism problem list - strep pneumonia , bacteremia , endocarditis , septic shock , septic emboli to brain , pneumonia, mitral valve regurgitation , CHF , acute renal failure on dialysis plan: recommend increasing ceftriaxone to 2 G 2x a day to cover septic emboli of brain as well as endocarditis . patient needs piccline to administer antibiotic . continue regimen for 6 weeks and after 6 weeks patient will need to repeat TTE as outpatient . follow up with infectious disease in 4-[address] of chest to rule out possibility of septic emboli to lungs vs ongoing pneumonia/ para nemonic infusion . defer management of ventilatory and dialysis to pulmonology and nephrology. Have reviewed vital sign s, imagine and labs that are relevant to patients case . otherwise agree with Dr. Burrell plan . Unable to do 12 point system review due to patient being on sedation and not awake 2/4: Difficult to ween off vent and has been having improved airspace opacities on chest xray and since has been started on Ceftriaxone 2 grams Q12 , chest Ct was done and there was no finding to suggest septic emboli or persistent plural effusions that could be keeping patients from being off the ventilator . Continue Ceftriaxone 2 grams every 12 hours for 6 weeks via piccline . prognosis overall is poor , may proceed with tracheostomy . no contraindications from infectious disease of additional infectious work up needed 2/5: underwent dialysis and tolerated procedure without any issues . Patient has a clean tracheostomy placed today without any complications and site appears clean. Patient is currently on FIO2 50% on trach . Continue ceftriaxone 2 grams every 12 hours for 6 weeks . If patients clinical status allows would recommend patient follow up with infectious disease in 6 weeks to repeat echocardiogram as well as determine if additional therapy is needed for endocarditis. Otherwise reviewed and agree with Dr Leone's findings, A/P as written in note. PE: General Appearance: Cooperative. Well developed. Well nourished. NAD. intubated and sedated . morbidly obease Head Exam: Normal inspection Neck Exam: Normal inspection. Non-tender. Normal alignment Pulmonary/Respiratory: Chest non-tender. Clear bilateral breath sounds. minimal vent with traces of pressures and unable to ween off vent due to mentating well of sedation but continues to have signs of agitation Cardiovascular/Chest: No murmurs. No JVD. Abdominal Exam: Normal bowel sounds. Soft. Nontender. No hepatosplenomegaly. No masses Skin: no open wounds or lesions Ankle Exam: Lower extremities: GLADYS LEONE RESIDENT Jun 23, 2024 19:06 JOSH VERNON MD Jun 26, 2024 19:28
--- NOTE | 2024-06-23 23:42 | DVHPN2 ---
Progress Note - Dictate Date Seen: Jun 23, 2024 Medical Necessity Reason Pt with a Central, PICC or Fol: No The following are medically ne: Central Line, Putnam Catheter Reason for putnam catheter: Strict I&O Subjective Patient seen and examined at bedside. Sedated, on mechanical ventilator. S/p trach Overnight events reviewed. vital signs Vital Sign Date Time Temp Pulse Resp B/P (MAP) Pulse Ox O2 Delivery O2 Flow Rate FiO2 06/23/24 23:07 149/76 06/23/24 22:14 75 19 100 30 06/23/24 20:00 Mechanical Ventilator+ 06/23/24 19:00 97.9 208.2 Total Intake and Output 06/22/24 06/22/24 06/23/24 15:00 23:00 07:00 Intake Total 260.552 ml 338.052 ml 270.052 ml Output Total 20 ml 25 ml Balance 260.552 ml 318.052 ml 245.052 ml medications Current Medications Medications Dose Ordered Sig/Yousif Route Start Time Stop Time Status Last Admin Dose Admin Midazolam HCl 50 ml @ 1 mls/hr Q24H IV 05/25/24 06:30 05/29/24 09:11 5 MLS/HR Atorvastatin Calcium 40 mg HS NG 05/25/24 22:00 06/23/24 22:05 40 MG Ondansetron HCl 4 mg Q4HP PRN IV 05/25/24 10:45 Nitroglycerin 0.4 mg Q5MINP PRN SL 05/25/24 10:45 Hydralazine HCl 10 mg Q6HP PRN IV 05/29/24 16:30 06/13/24 20:02 10 MG Pantoprazole Sodium 40 mg DAILY IV 05/30/24 10:00 06/23/24 09:51 40 MG Bumetanide 2 mg BIDD IV 05/30/24 18:00 06/23/24 17:30 2 MG Aspirin 81 mg DAILY PO 06/10/24 10:00 06/21/24 10:00 81 MG Enteral Nutritional Formula 1,000 ml 40ML/HR GT 06/15/24 09:15 06/18/24 22:35 1,000 ML Propofol 100 ml @ 4.398 mls/ hr [id number] IV 06/15/24 21:00 06/23/24 15:40 21.99 MLS/HR Albumin Human 100 ml @ 100 mls/hr PRN PRN IV 06/16/24 11:00 06/20/24 10:05 100 MLS/HR Sodium Chloride 10 ml QSHIFT@10,22 IV 06/17/24 22:00 06/23/24 22:05 10 ML Fentanyl Citrate 250 ml @ 2.5 mls/hr Q24H IV 06/17/24 17:30 06/23/24 08:20 7.5 MLS/HR Norepinephrine Bitartrate 250 ml @ 3.75 mls/hr Q24H IV 06/18/24 09:45 06/22/24 11:38 3.75 MLS/HR Albuterol 2.5 mg Q6HR NEB 06/20/24 12:00 06/23/24 18:18 2.5 MG Ipratropium [place] 0.5 mg Q6HR NEB 06/20/24 12:00 06/23/24 18:18 0.5 MG Ceftriaxone Sodium/Dextrose 50 ml @ 50 mls/hr BID IV 06/21/24 22:00 06/23/24 22:05 50 MLS/HR objective Gen.: Patient lying in bed in medical ICU. Sedated, on mechanical ventilator. S/p trach Head: Normocephalic, atraumatic. Eyes: PERRLA. Ears: Normal external anatomy. Throat: Endotracheal tube and orogastric tube in place. Neck: Trach in place. Chest: Transmitted breath sounds bilaterally. Decreased air entry bilaterally. No wheezing. Bibasilar crackles. Cardiovascular: Positive S1, positive S2. Regular rate and rhythm. Abdomen: Positive bowel sounds in all 4 quadrants. Soft, nontender, nondistended. : Putnam in place. Normal external genitalia. Rectal: Deferred. Skin: Warm, dry. Intact. Extremities: 2+ radial pulses bilaterally. No lower extremity edema. Neuro: Sedated laboratory and microbiology Laboratory Tests 06/23/24 02:57 06/22/24 03:17 Test 06/23/24 02:57 Range/Units Serum Glucose 92 74-106 mg/dL Assessment/Plan Impression: Acute hypoxic respiratory failure On mechanical ventilator Septic shock Elevated troponin Acute kidney injury Lactic acidosis Metabolic acidosis Multifocal pneumonia, likely gram negative Pulmonary edema AE COPD Events: On vent support On AC mode; RR 18, VT 500, PEEP 5, FiO2 30% S/p trach Trach care PEG tube in place S/p hemodialysis yesterday. Sedated on Propofol Fentanyl for analgesia On pressors for hemodynamic support Levophed 6 mcg/min Titrate to keep mean arterial pressure greater than 65 mmHg. Increased pressor requirements Continue antibiotics Tube feeds for nutritional support Wound care Monitor hemoglobin Blood pressure control Diurese to euvolemia Monitor renal function Monitor electrolytes, supplement as necessary Hemodialysis per Nephrology Nephrology recs appreciated. Echo showed EF of 40%. SBT/KAREN Awaiting for mentation to improve. Awaiting LTAC placement Poor prognosis, poor chance of meaningful recovery CT head revealed e/o multiple strokes. Neurology recommendations appreciated Labs and imaging reviewed. Rest of plan as noted below. Plan: s/p intubation on mechanical ventilator. On AC mode; RR 18, VT 500, PEEP 5, FiO2 30% Titrate FIO2 to keep O2 saturation above 90%. VAP bundle. Daily ABG and CXR while intubated Sedated for vent synchrony Continue bronchodilators. Continue antibiotics. F/u cultures. On pressors for hemodynamic support Titrate to keep mean arterial pressure greater than 65 mmHg. Cardiology recs appreciated. Monitor renal function Monitor electrolytes. Supplement as necessary. Monitor ins and outs. Nephrology recs appreciated. IV fluid hydration GI prophylaxis. DVT prophylaxis. Prognosis: Poor given patient's multiple co-morbidities. Condition: Critical Rest of plan per hospitalist and other consultants. A total of 35 minutes of critical care time was spent reviewing the patient record, examining the patient, making a diagnostic and therapeutic plan, discussing this plan with the medical personnel, following up on diagnostic studies and following the patient for clinical stability excluding any and all procedures. At least 50% of this time was spent in direct, [id number] contact. Thank you, MIRNA Stratton, for allowing me to participate in this patient's care. Further recommendations will depend on the patient's clinical course. Please do not hesitate to contact me if you have any questions or concerns. This medical document was created using an electronic medical record system with [employer] system. Although these documentations are being carefully reviewed, there may still be some phonetic and typographical changes. The errors are purely typographical, due to imperfection on the software program, and do not reflect any compromise in the patient's medical care. Dietary Evaluation Review Comments: 1) If GI is accessible consider Jevity 1.2 @ 70ml/hr x 24hr continuous feed goal rate as tolerated 2) If pt remains NPO >7 days consider TPN to meet at least 75% of estimated needs 3) Advance pt diet when medically feasible to a 2gm Sodium diet modified per MANAGER RISK recommendations 4) Continue current plan of care Expected Outcomes/Goals: 1) Pt to receive nutrition support within 7 days of NPO status 2) Pt diet to advance 3) F/U in 2-3 days Plan discussed with: Other (LUZMARIA Baumann) Critical Care Time(min): 35 MELODY ELIZABETH MD Jun 23, 2024 23:42
[2024-06-24] VITALS (105 sets, daily range): BP systolic 82–151; BP diastolic 43–86; PULSE 73–94; RESP 16–23; TEMP 98.4–99.7; O2SAT 95–100
[2024-06-24 04:04] LABS: Basophils # (auto) 0 10 ^3/uL (0-0.2); Basophils % (auto) 0.7 % (0.0-2.0); Eosinophils # (auto) 0.2 10 ^3/uL (0-0.8); Eosinophils % (auto) 2.7 % (0.0-7.0); Hemoglobin 8.1 g/dL (12.2-16.2); Lymphocytes % (auto) 17.8 % (10.0-50.0); Mean Corpuscular Hemoglobin 29.5 pg (28.0-32.0); Mean Corpuscular Hgb Conc. 32.3 g/dL (32.0-36.0); Mean Corpuscular Volume 91.2 fL (80.0-100.0); Monocytes # (auto) 0.8 10 ^3/uL (0-1.3); Monocytes % (auto) 14.3 % (0.0-12.0); Neutrophils # (auto) 3.8 10 ^3/uL (1.6-8.6); Neutrophils % (auto) 64.5 % (37.0-80.0); Nucleated Red Blood Cells % 0.2 %; Platelet Count (auto) 226 10^3/uL (140-450); Red Blood Cells 2.74 10^6/uL (4.0-5.20); White Blood Cell 5.9 10^3/uL (4.4-10.8)
[2024-06-24 04:15] LABS: Anion Gap 14 (5-15); Calcium 8.9 mg/dL (8.7-10.4); Carbon Dioxide 25 mmol/L (20-31); Chloride 98 mmol/L (98-107); Potassium 3.9 mmol/L (3.5-5.1); Sodium 137 mmol/L (136-145)
[2024-06-24 04:21] LABS: BUN/Creatinine Ratio 10.2 (10.0-20.0); Glucose 90 mg/dL (74-106)
[2024-06-24 04:24] LABS: Blood Urea Nitrogen 49 mg/dL (9-23)
--- NOTE | 2024-06-24 08:52 | DVHPN2 ---
Subjective Patient encephalopathic Reviewed: Care Plan, H&P, Labs, Medications, Previous Orders, Radiology, Other Changes from previous H/P or p: No Changes General: Per HPI Objective Vitals Vital Signs Date Time Temp Pulse Resp B/P (MAP) Pulse Ox O2 Delivery O2 Flow Rate FiO2 06/24/24 08:03 114/67 06/24/24 08:00 80 20 100 Mechanical Ventilator+ 30 30 06/24/24 06:30 99.5 211.1 Intake/Output Intake and Output 06/24/24 07:00 Intake Total 1162.524 ml Output Total 35 ml Balance 1127.524 ml IV Total 834.524 ml Tube Feeding 328 ml Output Urine Total 35 ml # Bowel Movements 1 General Appearance: moderate distress, Other (Patient chemically sedated) HEENT: Atraumatic, PERRLA, Other Neck: Other (Tracheostomy) Lungs: Other (Mechanical ventilation. Decreased breath sounds at bases.) Chest/Breasts: Other (Tunneled HD cath) Cardiovascular: Normal S1, Normal S2, Other Abdomen: Normal bowel sounds, Soft Genitourinary: Other Neuro: Other Skin: Dry, Intact Psych/Mental Status: Other Medications Current Medications Medications Dose Ordered Sig/Yousif Route Start Time Stop Time Status Last Admin Dose Admin Midazolam HCl 50 ml @ 1 mls/hr Q24H IV 05/25/24 06:30 05/29/24 09:11 5 MLS/HR Atorvastatin Calcium 40 mg HS NG 05/25/24 22:00 06/23/24 22:05 40 MG Ondansetron HCl 4 mg Q4HP PRN IV 05/25/24 10:45 Nitroglycerin 0.4 mg Q5MINP PRN SL 05/25/24 10:45 Hydralazine HCl 10 mg Q6HP PRN IV 05/29/24 16:30 06/13/24 20:02 10 MG Pantoprazole Sodium 40 mg DAILY IV 05/30/24 10:00 06/23/24 09:51 40 MG Bumetanide 2 mg BIDD IV 05/30/24 18:00 06/24/24 05:59 2 MG Aspirin 81 mg DAILY PO 06/10/24 10:00 06/21/24 10:00 81 MG Enteral Nutritional Formula 1,000 ml 40ML/HR GT 06/15/24 09:15 06/18/24 22:35 1,000 ML Propofol 100 ml @ 4.398 mls/ hr [id number] IV 06/15/24 21:00 06/24/24 04:54 21.99 MLS/HR Albumin Human 100 ml @ 100 mls/hr PRN PRN IV 06/16/24 11:00 06/20/24 10:05 100 MLS/HR Sodium Chloride 10 ml QSHIFT@10,22 IV 06/17/24 22:00 06/23/24 22:05 10 ML Fentanyl Citrate 250 ml @ 2.5 mls/hr Q24H IV 06/17/24 17:30 06/24/24 05:00 12.5 MLS/HR Norepinephrine Bitartrate 250 ml @ 3.75 mls/hr Q24H IV 06/18/24 09:45 06/24/24 08:03 3.75 MLS/HR Albuterol 2.5 mg Q6HR NEB 06/20/24 12:00 06/24/24 07:43 2.5 MG Ipratropium [place] 0.5 mg Q6HR NEB 06/20/24 12:00 06/24/24 07:44 0.5 MG Ceftriaxone Sodium/Dextrose 50 ml @ 50 mls/hr BID IV 06/21/24 22:00 06/23/24 22:05 50 MLS/HR Laboratory Results Laboratory Tests 06/24/24 03:20 Chemistry Test 06/24/24 03:20 Calcium Level 8.9 mg/dL (8.7-10.4) Urinalysis Test 05/25/24 08:30 05/28/24 01:30 Urine Color Yellow (Yellow) Urine Clarity Clear (Clear) Urine pH 7.5 (5.0-9.0) Urine Specific [place] 1.013 (1.001-1.035) Urine Protein 2+ (Negative) H Urine Ketones Negative (Negative) Urine Blood Negative /uL (Negative) Urine Nitrite Negative (Negative) Urine Bilirubin Negative (Negative) Urine Urobilinogen 8 mg/dL (Negative) H Urine Leukocyte Esterase Negative /uL (Negative) Urine RBC 5 /hpf (0 - 4) Urine WBC 1 /hpf (0 - 5) Urine Squamous Epithelial Cells Few /hpf (<5) Urine Bacteria None seen /hpf (None Seen) Urine Glucose Normal mg/dL (Normal) Urine Creatinine 248.25 mg/dL (30.0-125.0) H Urine Sodium 27 mmol/L (40-220) L Urine Total Protein 293.2 mg/dL (1-14) H Microbiology Microbiology Date/Time Source Procedure Growth Status 06/09/24 17:21 Urine - [place] Urine Culture - Final Complete 06/07/24 10:50 Blood Blood Culture - Final NO GROWTH AFTER 5 DAYS OF INCUBATION. Complete 05/27/24 08:50 Nose MRSA Screen - Final Complete 05/25/24 06:50 Sputum Gram Stain - Final Complete 05/25/24 06:50 Respiratory Culture - Final Presumptive Tara albicans Complete Labs and/or images reviewed: Labs reviewed by me, Image(s) reviewed by me Assessment/Plan Assessment/Plan Impression: -severe sepsis with shock , Streptococcus pneumoniae -probable community-acquired pneumonia with Gram-positive cocci -sepsis with Gram-positive cocci -acute hypoxic respiratory failure with mechanical ventilation -obesity -acute kidney injury, anuric -NSTEMI, probably type 2 -hypoalbuminemia -? Angioedema on resolved -respiratory alkalosis -multifocal CVA -endocarditis Plan: Events: S/P tracheostomy. Receiving HD. LTACH transfer pending. CPAP trial daily. -surgical consultation for tracheostomy -continue current antibiotics -bronchodilators -antibiotic therapy per Infectious Disease -ventilator settings per foreign exchange clerk -nephrology consultation: HD -PUD, DVT prophylaxis -repeat labs, chest x-ray, ABG in a.m.. -social service consultation for LTAC placement Critical care time spent with patient discussing and formulating plan of care: 40 minutes. This does not include time spent performing procedures. This medical document was created using an electronic medical record system with [employer] dictation system. Although this document has been carefully reviewed, there may still be some phonetic and typographical errors. These areas are purely typographical due to imperfections of the software programs, and do not reflect any compromise in the patient's medical care. Plan discussed with: Patient, Other (RN) Date of Service: Jun 24, 2024 Billing Provider: OMAR PARK NP Common Visit Codes: 51340-[id number] CARE 30-74 MIN OMAR PARK NP Jun 24, 2024 08:52
[2024-06-24 08:56] LABS: Base Excess -0.4 mmol/L (-2.0-3.0)
--- NOTE | 2024-06-24 10:17 | DVH ---
CHEST RADIOGRAPH Indication: on vent , pneumonia Technique: Single frontal view of the chest was obtained Comparison: XY CHEST PORTABLE on DOS: 06/23/24, XY CHEST XRAY 1 VIEW on DOS: 06/22/24, XY CHEST PORTABLE on DOS: 06/20/24, XY CHEST PORTABLE on DOS: 06/19/24, XY CHEST PORTABLE on DOS: 06/19/24, XY CHEST PORTABLE on DOS: 06/23/24 FINDINGS: Lines and Tubes: enteric catheter and right PICC in satisfactory position. Right hemodialysis roel ter tip in the cavoatrial junction. Status post tracheostomy. Lungs: Worsening multifocal consolidative opacities. Pleura: No effusion. No pneumothorax. Cardiomediastinal contours: Cardiomegaly Bones: Unremarkable IMPRESSION: Worsening multifocal consolidative opacity.
--- NOTE | 2024-06-24 11:03 | DVHPN2 ---
Progress Note - Dictate Date Seen: Jun 24, 2024 Medical Necessity Reason Pt with a Central, PICC or Fol: No The following are medically ne: Central Line, Putnam Catheter Reason for putnam catheter: Strict I&O Subjective Ms. Pandya is a 53 years old right-handed female with a history of morbid obesity, hypertension, the patient was was brought to the [facility] on 05/25/24 with a chief company of altered mental status, respiratory distress. I have seen and examined the patient, I have talked to her nurse and other medical staff. She is responsive to strong painful stimuli. There is blinking activity when I open her eyes She had tracheostomy yesterday Fentanyl 150 mcg/hour, Levo 4 mcg/minute Urine culture, 05/25/2024: Negative Blood culture, 05/25/2024: Streptococcus pneumoniae UDS, 05/25/2024: Negative Urinalysis, 05/25/2024: WBC: 1, urine leukocyte esterase: Negative ABG, 05/25/2024: Metabolic acidosis, hypoxia, 05/26/2024: Metabolic acidosis, hypoxia, 05/27/24: Metabolic acidosis, hypoxia WBC/HB/PLT/MCV, 06/02/2024: 22.4/9/342/89.4 06/09/2024: 19.6/9.4/235/91.6, 06/12/2024: 8.2/9.2/205/90.6 BUN/CR, 05/26/2024: 62/7.01 06/02/2024: 123/6.59, 06/09/2024: 137/6.32, 06/12/2024: 71/4.33 HGB A1c, 05/25/2024: 5.6 Lactic acid, 05/25/2024: 3.6, 4.6, 4.2, 05/26/2024: 3.6 Troponin one high sensitivity, 05/25/2024: 1060, 1354, 1262 TBI/AST/ALT/AP, 05/26/2024: 2/246/167/98, 06/07/2024: 0.9/139/464/93 TG/HDL/LDL/HDL, 05/25/2024: 192/98/40/8 Vitamin B12, 06/02/2024: 836 TSH, 05/25/2024: 0.57 SAMIR, 06/15/2024: Vegetation anterior mitral leaflet Carotid Doppler, 06/15/2024: 1. There is no hemodynamically significant stenosis in the right common carotid and internal carotid arteries. There is elevated peak systolic velocity in the right external carotid artery. 2. Nonvisualization of the left carotid and vertebral arteries secondary to overlying bandage. Consider further evaluation with CTA neck Chest x-ray, 05/25/2024: 1. Distal tip of the endotracheal tube is approximately 5.5 cm above the level of the nik. 2. Poorly visualized enteric tube at its distal aspect. Appears to reach the gastroesophageal junction, although not visualized distal to this point. Correlate with clinical findings. 3. Bilateral airspace opacities and interstitial opacities, may be due to multifocal pneumonia or pulmonary edema in the appropriate clinical setting CT head, 05/25/2024: No gross acute intracranial process CT head, 06/02/24: 1. Interval development of 2 foci of subcortical parenchymal hemorrhage in the left frontal lobe. No mass effect or midline shift. 2. Moderate amount of fluid in the posterior nasopharynx likely related to intubation. Recommend suctioning to prevent aspiration. 3. Small bilateral mastoid effusions. We are in the process of reaching out to the nurse or physician in charge of the patient to convey the findings. CT head, 06/04/2024: Redemonstrated are 2 hyperdense foci in the subcortical left frontal lobe which may represent small foci of parenchymal hemorrhage. There is no significant surrounding edema or associated mass effect CT head, 06/06/2024: The 2 foci of left frontal subcortical hemorrhage are less conspicuous in the current exam partially resolved. No new foci of hemorrhage CT chest, 06/23/2024: 1. Bilateral lower lobe consolidations which may reflect atelectasis or pneumonia. No findings to suggest septic emboli. 2. Cardiomegaly. MR head, 06/15/2024: Extensive periventricular and deep white matter signal abnormality most of which is likely chronic. Possible small focus of subacute ischemia in the right periventricular region. No definite acute intracranial hemorrhage on MRI. Clinical correlation and continued follow-up is recommended. vital signs Vital Sign Date Time Temp Pulse Resp B/P (MAP) Pulse Ox O2 Delivery O2 Flow Rate FiO2 06/24/24 10:13 106/67 06/24/24 09:53 40 06/24/24 09:53 77 06/24/24 09:53 20 100 Mechanical Ventilator+ 06/24/24 09:45 98.6 209.5 Total Intake and Output 06/23/24 06/23/24 06/24/24 15:00 23:00 07:00 Intake Total 214.164 ml 392.17 ml 596.93 ml Output Total 10 ml 25 ml Balance 214.164 ml 382.17 ml 571.93 ml medications Current Medications Medications Dose Ordered Sig/Yousif Route Start Time Stop Time Status Last Admin Dose Admin Midazolam HCl 50 ml @ 1 mls/hr Q24H IV 05/25/24 06:30 05/29/24 09:11 5 MLS/HR Atorvastatin Calcium 40 mg HS NG 05/25/24 22:00 06/23/24 22:05 40 MG Ondansetron HCl 4 mg Q4HP PRN IV 05/25/24 10:45 Nitroglycerin 0.4 mg Q5MINP PRN SL 05/25/24 10:45 Hydralazine HCl 10 mg Q6HP PRN IV 05/29/24 16:30 06/13/24 20:02 10 MG Pantoprazole Sodium 40 mg DAILY IV 05/30/24 10:00 06/23/24 09:51 40 MG Bumetanide 2 mg BIDD IV 05/30/24 18:00 06/24/24 05:59 2 MG Aspirin 81 mg DAILY PO 06/10/24 10:00 06/21/24 10:00 81 MG Enteral Nutritional Formula 1,000 ml 40ML/HR GT 06/15/24 09:15 06/18/24 22:35 1,000 ML Propofol 100 ml @ 4.398 mls/ hr [id number] IV 06/15/24 21:00 06/24/24 10:13 17.592 MLS/HR Albumin Human 100 ml @ 100 mls/hr PRN PRN IV 06/16/24 11:00 06/20/24 10:05 100 MLS/HR Sodium Chloride 10 ml QSHIFT@10,22 IV 06/17/24 22:00 06/23/24 22:05 10 ML Fentanyl Citrate 250 ml @ 2.5 mls/hr Q24H IV 06/17/24 17:30 2/6/25 05:00 12.5 MLS/HR Norepinephrine Bitartrate 250 ml @ 3.75 mls/hr Q24H IV 06/18/24 09:45 06/24/24 08:03 3.75 MLS/HR Albuterol 2.5 mg Q6HR NEB 06/20/24 12:00 06/24/24 07:43 2.5 MG Ipratropium [place] 0.5 mg Q6HR NEB 06/20/24 12:00 06/24/24 07:44 0.5 MG Ceftriaxone Sodium/Dextrose 50 ml @ 50 mls/hr BID IV 06/21/24 22:00 06/23/24 22:05 50 MLS/HR objective The patient is well-nourished and well-developed with no distress. Status post tracheostomy Status post PEG feeding tube insertion MENTAL STATUS: Subjective CRANIAL NERVES: Pupils are round and reactive. There are spontaneous conjugated eye movement. No signs of facial weakness. There are gagging or coughing reflexes during oral care. SENSATION: Response to strong painful stimuli MOTOR: Normal tone in the upper and lower extremity. Normal muscle bulk. No fasciculations. No spontaneous movement REFLEXES: Deep tendon reflexes are symmetrical. No pathological reflexes. CEREBELLAR/COORDINATION: Deferred GAIT/STATION: deferred. laboratory and microbiology Laboratory Tests 06/24/24 03:20 Test 06/24/24 03:20 Range/Units Serum Glucose 90 74-106 mg/dL Problem List Altered mental status/Coma Hypoxic encephalopathy secondary to respiratory failure Metabolic encephalopathy secondary to acidosis, sepsis, septic shock, kidney failure Multiple acute/subacute strokes Heart attack Pneumonia Sepsis, septic shock Endocarditis Acute on chronic kidney failure Acute petechial hemorrhage in the left frontal lobe, improving on follow-up CT Anisocoria, uncertain clinical significance Assessment/Plan Monitoring Supportive treatment ICU care Follow-up labs Stabilize vitals/pressor drip Respiratory support/vent management Oxygen IV antibiotics GI prophylaxis/Protonix DVT prophylaxis/heparin Nephrology on case Pulmonology on case Infectious diseases on case She is s/p PEG feeding tube insertion and tracheostomy More recommendation per clinical course This medical document was created using an electronic medical record system with [employer] dictation system. Although this document has been carefully reviewed, there may still be some phonetic and typographical errors. These areas are purely typographical due to imperfections of the software programs, and do not reflect any compromise in the patient's medical care Prognosis guarded Dietary Evaluation Review Comments: 1) If GI is accessible consider Jevity 1.2 @ 70ml/hr x 24hr continuous feed goal rate as tolerated 2) If pt remains NPO >7 days consider TPN to meet at least 75% of estimated needs 3) Advance pt diet when medically feasible to a 2gm Sodium diet modified per SENIOR PYTHON DEVELOPER recommendations 4) Continue current plan of care Expected Outcomes/Goals: 1) Pt to receive nutrition support within 7 days of NPO status 2) Pt diet to advance 3) F/U in 2-3 days Plan discussed with: Other PILAR HOOD MD Jun 24, 2024 11:03
--- NOTE | 2024-06-24 11:07 | DVHPN2 ---
Progress Note Date Seen: Jun 24, 2024 Medical Necessity Reason Pt with a Central, PICC or Fol: No The following are medically ne: Central Line, Putnam Catheter Reason for putnam catheter: Strict I&O Objective vital signs Vital Sign Date Time Temp Pulse Resp B/P (MAP) Pulse Ox O2 Delivery O2 Flow Rate FiO2 06/24/24 10:13 106/67 06/24/24 09:53 40 06/24/24 09:53 77 06/24/24 09:53 20 100 Mechanical Ventilator+ 06/24/24 09:45 98.6 209.5 Total Intake and Output 06/23/24 06/23/24 06/24/24 15:00 23:00 07:00 Intake Total 214.164 ml 392.17 ml 596.93 ml Output Total 10 ml 25 ml Balance 214.164 ml 382.17 ml 571.93 ml medications Current Medications Medications Dose Ordered Sig/Yousif Route Start Time Stop Time Status Last Admin Dose Admin Midazolam HCl 50 ml @ 1 mls/hr Q24H IV 05/25/24 06:30 05/29/24 09:11 5 MLS/HR Atorvastatin Calcium 40 mg HS NG 05/25/24 22:00 06/23/24 22:05 40 MG Ondansetron HCl 4 mg Q4HP PRN IV 05/25/24 10:45 Nitroglycerin 0.4 mg Q5MINP PRN SL 05/25/24 10:45 Hydralazine HCl 10 mg Q6HP PRN IV 05/29/24 16:30 06/13/24 20:02 10 MG Pantoprazole Sodium 40 mg DAILY IV 05/30/24 10:00 06/23/24 09:51 40 MG Bumetanide 2 mg BIDD IV 05/30/24 18:00 06/24/24 05:59 2 MG Aspirin 81 mg DAILY PO 06/10/24 10:00 06/21/24 10:00 81 MG Enteral Nutritional Formula 1,000 ml 40ML/HR GT 06/15/24 09:15 06/18/24 22:35 1,000 ML Propofol 100 ml @ 4.398 mls/ hr [id number] IV 06/15/24 21:00 06/24/24 10:13 17.592 MLS/HR Albumin Human 100 ml @ 100 mls/hr PRN PRN IV 06/16/24 11:00 06/20/24 10:05 100 MLS/HR Sodium Chloride 10 ml QSHIFT@10,22 IV 06/17/24 22:00 06/23/24 22:05 10 ML Fentanyl Citrate 250 ml @ 2.5 mls/hr Q24H IV 06/17/24 17:30 06/24/24 05:00 12.5 MLS/HR Norepinephrine Bitartrate 250 ml @ 3.75 mls/hr Q24H IV 06/18/24 09:45 06/24/24 08:03 3.75 MLS/HR Albuterol 2.5 mg Q6HR NEB 06/20/24 12:00 06/24/24 07:43 2.5 MG Ipratropium [place] 0.5 mg Q6HR NEB 06/20/24 12:00 06/24/24 07:44 0.5 MG Ceftriaxone Sodium/Dextrose 50 ml @ 50 mls/hr BID IV 06/21/24 22:00 06/23/24 22:05 50 MLS/HR laboratory and microbiology Laboratory Tests 06/24/24 03:20 Test 06/24/24 03:20 Range/Units Serum Glucose 90 74-106 mg/dL Problem List/Assessment/Plan Problem List/Assessment/Plan 06/21/24 patient's CXR much worse than yesterday, she is hypotensive this morning and on PEEP of 8, will cancel tracheostomy today ,please notify me once she can tolerate PEEP of 5 and her blood pressure is stable. 06/24/24 tracheostomy OK,no problems reported, CXR stable, will sign off, please recall if needed Plan discussed with: Other Dietary Evaluation Review Comments: 1) If GI is accessible consider Jevity 1.2 @ 70ml/hr x 24hr continuous feed goal rate as tolerated 2) If pt remains NPO >7 days consider TPN to meet at least 75% of estimated needs 3) Advance pt diet when medically feasible to a 2gm Sodium diet modified per FINISHED YARN EXAMINER recommendations 4) Continue current plan of care Expected Outcomes/Goals: 1) Pt to receive nutrition support within 7 days of NPO status 2) Pt diet to advance 3) F/U in 2-3 days XIMENA CHEATHAM MD Jun 24, 2024 11:07
--- NOTE | 2024-06-24 15:46 | DVHPN2 ---
Progress Note Date Seen: Jun 24, 2024 Medical Necessity Reason Pt with a Central, PICC or Fol: No The following are medically ne: Central Line, Putnam Catheter Reason for putnam catheter: Strict I&O Subjective Patient reports: Other (no events) Review of Systems: Deferred Objective vital signs Vital Sign Date Time Temp Pulse Resp B/P (MAP) Pulse Ox O2 Delivery O2 Flow Rate FiO2 06/24/24 15:37 124/74 06/24/24 14:00 99.7 82 19 100 211.5 06/24/24 14:00 Mechanical Ventilator+ 40 40 Total Intake and Output 06/23/24 06/23/24 06/24/24 15:00 23:00 07:00 Intake Total 214.164 ml 392.17 ml 596.93 ml Output Total 10 ml 25 ml Balance 214.164 ml 382.17 ml 571.93 ml medications Current Medications Medications Dose Ordered Sig/Yousif Route Start Time Stop Time Status Last Admin Dose Admin Midazolam HCl 50 ml @ 1 mls/hr Q24H IV 05/25/24 06:30 05/29/24 09:11 5 MLS/HR Atorvastatin Calcium 40 mg HS NG 05/25/24 22:00 06/23/24 22:05 40 MG Ondansetron HCl 4 mg Q4HP PRN IV 05/25/24 10:45 Nitroglycerin 0.4 mg Q5MINP PRN SL 05/25/24 10:45 Hydralazine HCl 10 mg Q6HP PRN IV 05/29/24 16:30 06/13/24 20:02 10 MG Pantoprazole Sodium 40 mg DAILY IV 05/30/24 10:00 06/24/24 11:22 40 MG Bumetanide 2 mg BIDD IV 05/30/24 18:00 06/24/24 05:59 2 MG Aspirin 81 mg DAILY PO 06/10/24 10:00 06/24/24 11:23 81 MG Enteral Nutritional Formula 1,000 ml 40ML/HR GT 06/15/24 09:15 06/18/24 22:35 1,000 ML Propofol 100 ml @ 4.398 mls/ hr [id number] IV 06/15/24 21:00 06/24/24 15:03 17.592 MLS/HR Albumin Human 100 ml @ 100 mls/hr PRN PRN IV 06/16/24 11:00 06/20/24 10:05 100 MLS/HR Sodium Chloride 10 ml QSHIFT@10,22 IV 06/17/24 22:00 06/24/24 11:23 10 ML Fentanyl Citrate 250 ml @ 2.5 mls/hr Q24H IV 06/17/24 17:30 06/24/24 05:00 12.5 MLS/HR Norepinephrine Bitartrate 250 ml @ 3.75 mls/hr Q24H IV 06/18/24 09:45 06/24/24 08:03 3.75 MLS/HR Albuterol 2.5 mg Q6HR NEB 06/20/24 12:00 06/24/24 13:48 2.5 MG Ipratropium [place] 0.5 mg Q6HR NEB 06/20/24 12:00 06/24/24 13:49 0.5 MG Ceftriaxone Sodium/Dextrose 50 ml @ 50 mls/hr BID IV 06/21/24 22:00 06/24/24 11:23 50 MLS/HR Examination: GENERAL:Abnormal, LUNGS:Abnormal, SKIN:Abnormal, NEURO:Abnormal laboratory and microbiology Laboratory Tests 06/24/24 03:20 Test 06/24/24 03:20 Range/Units Serum Glucose 90 74-106 mg/dL Microbiology Date/Time Source Procedure Growth Status 06/09/24 17:21 Urine - [place] Urine Culture - Final Complete 06/07/24 10:50 Blood Blood Culture - Final NO GROWTH AFTER 5 DAYS OF INCUBATION. Complete 05/27/24 08:50 Nose MRSA Screen - Final Complete 05/25/24 06:50 Sputum Gram Stain - Final Complete 05/25/24 06:50 Respiratory Culture - Final Presumptive Tara albicans Complete Problem List/Assessment/Plan Problem List/Assessment/Plan Acute kidney injury likely ATN needing HD Unknown recent baseline Severe sepsis Morbid obesity Ventilator-dependent hypoxic respiratory failure recs seen on Hemodialysis today Status post tunneled catheter Status post tracheostomy Plan discussed with: Other My Orders My Orders Orders - LAN CHOWDHURY MD Procedure Category Date Status Time Hemodialysis Orders ORDERS 06/24/24 Transmitted 04:00 Dietary Evaluation Review Comments: 1) If GI is accessible consider Jevity 1.2 @ 70ml/hr x 24hr continuous feed goal rate as tolerated 2) If pt remains NPO >7 days consider TPN to meet at least 75% of estimated needs 3) Advance pt diet when medically feasible to a 2gm Sodium diet modified per [employer] recommendations 4) Continue current plan of care Expected Outcomes/Goals: 1) Pt to receive nutrition support within 7 days of NPO status 2) Pt diet to advance 3) F/U in 2-3 days LAN CHOWDHURY MD Jun 24, 2024 15:46
--- NOTE | 2024-06-24 19:02 | DVHPN2 ---
GLADYS LEONE RESIDENT 06/24/24 1902: Consult Progress Note Date Seen: Jun 24, 2024 Subjective Patient reports: No new complaints Other Systems: No any other new events. Physical Exam General Appearance: Obese, intubated , on mechanical ventilator, sedated. Neck Exam: Normal inspection. Non-tender. Normal alignment Pulmonary/Respiratory: Chest non-tender. Clear bilateral breath sounds Cardiovascular/Chest: Regular rate and rhythm. No murmurs. No JVD. Presence of to poor dialysis catheter. Peripheral Pulses: 2+ Radial (R). 2+ Radial (L). 2+ Pedal (R). 2+ Pedal (L) Abdominal Exam: Normal bowel sounds. Soft. Nontender. No hepatospenomegaly. No masses, PEG tube. Ankle Exam: Negative ankle edema Lower extremities: Negative lower extremity edema Neuro/Mental Status: Presence of pupillary reflex. Objective vital signs Vital Sign Date Time Temp Pulse Resp B/P (MAP) Pulse Ox O2 Delivery O2 Flow Rate FiO2 06/24/24 17:50 82/46 06/24/24 16:00 40 06/24/24 16:00 19 100 Mechanical Ventilator+ 06/24/24 16:00 89 06/24/24 14:00 99.7 211.5 Total Intake and Output 06/23/24 06/23/24 06/24/24 15:00 23:00 07:00 Intake Total 214.164 ml 392.17 ml 596.93 ml Output Total 10 ml 25 ml Balance 214.164 ml 382.17 ml 571.93 ml medications Current Medications Medications Dose Ordered Sig/Yousif Route Start Time Stop Time Status Last Admin Dose Admin Midazolam HCl 50 ml @ 1 mls/hr Q24H IV 05/25/24 06:30 05/29/24 09:11 5 MLS/HR Atorvastatin Calcium 40 mg HS NG 05/25/24 22:00 06/23/24 22:05 40 MG Ondansetron HCl 4 mg Q4HP PRN IV 05/25/24 10:45 Nitroglycerin 0.4 mg Q5MINP PRN SL 05/25/24 10:45 Hydralazine HCl 10 mg Q6HP PRN IV 05/29/24 16:30 06/13/24 20:02 10 MG Pantoprazole Sodium 40 mg DAILY IV 05/30/24 10:00 06/24/24 11:22 40 MG Bumetanide 2 mg BIDD IV 05/30/24 18:00 06/24/24 17:50 2 MG Aspirin 81 mg DAILY PO 06/10/24 10:00 06/24/24 11:23 81 MG Enteral Nutritional Formula 1,000 ml 40ML/HR GT 06/15/24 09:15 06/18/24 22:35 1,000 ML Propofol 100 ml @ 4.398 mls/ hr [id number] IV 06/15/24 21:00 06/24/24 15:03 17.592 MLS/HR Albumin Human 100 ml @ 100 mls/hr PRN PRN IV 06/16/24 11:00 06/20/24 10:05 100 MLS/HR Sodium Chloride 10 ml QSHIFT@10,22 IV 06/17/24 22:00 06/24/24 11:23 10 ML Fentanyl Citrate 250 ml @ 2.5 mls/hr Q24H IV 06/17/24 17:30 06/24/24 05:00 12.5 MLS/HR Norepinephrine Bitartrate 250 ml @ 3.75 mls/hr Q24H IV 06/18/24 09:45 06/24/24 08:03 3.75 MLS/HR Albuterol 2.5 mg Q6HR NEB 06/20/24 12:00 06/24/24 18:12 2.5 MG Ipratropium [place] 0.5 mg Q6HR NEB 06/20/24 12:00 06/24/24 18:12 0.5 MG Ceftriaxone Sodium/Dextrose 50 ml @ 50 mls/hr BID IV 06/21/24 22:00 06/24/24 11:23 50 MLS/HR laboratory and microbiology Laboratory Tests 06/24/24 03:20 Test 06/24/24 03:20 Range/Units Serum Glucose 90 74-106 mg/dL Problem List/Assessment/Plan Problem List/Assessment/Plan 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 -reviewed CT scan of the chest. Bilateral lung base consolidation/atelectasis -antibiotic admission to via PICC line -CT scan of the chest without contrast for possible septic embolization from heart to lungs -patient will need follow-up of Infectious Disease and Cardiology after finishing of antibiotic course -reviewed blood culture: 1st blood culture came positive for strep pneumo, repeat blood culture negative. -recommend repeat TTE after finishing of antibiotic course -patient underwent PEG tube and dialysis catheter , plan for tracheostomy as per primary care team -on hemodialysis -rest of the medical management as per primary care team and pulmonology nephrology. Plan discussed with: Other (RN) Dietary Evaluation Review Comments: 1) If GI is accessible consider Jevity 1.2 @ 70ml/hr x 24hr continuous feed goal rate as tolerated 2) If pt remains NPO >7 days consider TPN to meet at least 75% of estimated needs 3) Advance pt diet when medically feasible to a 2gm Sodium diet modified per [employer] recommendations 4) Continue current plan of care Expected Outcomes/Goals: 1) Pt to receive nutrition support within 7 days of NPO status 2) Pt diet to advance 3) F/U in 2-3 days JOSH VERNON MD 06/27/24 1429: Consult Progress Note Problem List/Assessment/Plan Problem List/Assessment/Plan _ Attending Addendum: Case discussed with Dr. Leone. at the time of visit. 40 year old female with a past medical history of hypertension found to be altered , intubated for worsening acute hypoxic respiratory failurw with unclear ideology . concern for septic picture , patient was needing ventilatory support , vasopressures , steroids . no known history of drungs or smoking . no recent medications. orginally treated with cefapine and doxycycline but eventually put on dialysis and found strep pneumonia in blood , likely lung origin . found to have vegitation in the antrium and anterior mitral leflet which was confirmed on SAMIR as well as mitral regurgitation . MRI of brain concerning for possible small focus of subacute ischemia and the right periventricular region likely consistent with septic embolie . SAMIR showed 3 mm vegitation on the intermitral leftlet . currently on ceftriaxone therapy for endocarditis. negative for any type of hepatitis , urine drig screen was negative . no signs of septic embolism problem list - strep pneumonia , bacteremia , endocarditis , septic shock , septic emboli to brain , pneumonia, mitral valve regurgitation , CHF , acute renal failure on dialysis plan: recommend increasing ceftriaxone to 2 G 2x a day to cover septic emboli of brain as well as endocarditis . patient needs piccline to administer antibiotic . continue regimen for 6 weeks and after 6 weeks patient will need to repeat TTE as outpatient . follow up with infectious disease in 4-[address] of chest to rule out possibility of septic emboli to lungs vs ongoing pneumonia/ para nemonic infusion . defer management of ventilatory and dialysis to pulmonology and nephrology. Have reviewed vital sign s, imagine and labs that are relevant to patients case . otherwise agree with Dr. Burrell plan . Unable to do 12 point system review due to patient being on sedation and not awake 2/4: Difficult to ween off vent and has been having improved airspace opacities on chest xray and since has been started on Ceftriaxone 2 grams Q12 , chest Ct was done and there was no finding to suggest septic emboli or persistent plural effusions that could be keeping patients from being off the ventilator . Continue Ceftriaxone 2 grams every 12 hours for 6 weeks via piccline . prognosis overall is poor , may proceed with tracheostomy . no contraindications from infectious disease of additional infectious work up needed 2/5: underwent dialysis and tolerated procedure without any issues . Patient has a clean tracheostomy placed today without any complications and site appears clean. Patient is currently on FIO2 50% on trach . Continue ceftriaxone 2 grams every 12 hours for 6 weeks . If patients clinical status allows would recommend patient follow up with infectious disease in 6 weeks to repeat echocardiogram as well as determine if additional therapy is needed for endocarditis. 2/6: S/P tracheostomy with no signs of intolerance and still vent dependant . plan will be to continue antibiotics for 6 weeks of ceftriaxone for endocarditis and to follow up with infectious disease clinic in 6 weeks Otherwise reviewed and agree with Dr Leone's findings, A/P as written in note. PE: General Appearance: Cooperative. Well developed. Well nourished. NAD. intubated and sedated . morbidly obease Head Exam: Normal inspection Neck Exam: Normal inspection. Non-tender. Normal alignment Pulmonary/Respiratory: Chest non-tender. Clear bilateral breath sounds. minimal vent with traces of pressures and unable to ween off vent due to mentating well of sedation but continues to have signs of agitation Cardiovascular/Chest: No murmurs. No JVD. Abdominal Exam: Normal bowel sounds. Soft. Nontender. No hepatosplenomegaly. No masses Skin: no open wounds or lesions Ankle Exam: Lower extremities: GLADYS LEONE RESIDENT Jun 24, 2024 19:02 JOSH VERNON MD Jun 27, 2024 14:29
--- NOTE | 2024-06-24 22:25 | DVHPN2 ---
Progress Note - Dictate Date Seen: Jun 24, 2024 Medical Necessity Reason Pt with a Central, PICC or Fol: No The following are medically ne: Central Line, Putnam Catheter Reason for putnam catheter: Strict I&O Subjective Patient seen in ICU intubated sedated S/P tracheostomy yesterday G-tube is functioning well and patient is tolerating G-tube feedings Patient a normal brown bowel movement today without bleed vital signs Vital Sign Date Time Temp Pulse Resp B/P (MAP) Pulse Ox O2 Delivery O2 Flow Rate FiO2 06/24/24 20:15 88 20 96/56 (69) 100 40 06/24/24 20:00 Mechanical Ventilator+ 06/24/24 19:00 99.5 211.1 Total Intake and Output 06/23/24 06/23/24 06/24/24 15:00 23:00 07:00 Intake Total 214.164 ml 392.17 ml 596.93 ml Output Total 10 ml 25 ml Balance 214.164 ml 382.17 ml 571.93 ml medications Current Medications Medications Dose Ordered Sig/Yousif Route Start Time Stop Time Status Last Admin Dose Admin Midazolam HCl 50 ml @ 1 mls/hr Q24H IV 05/25/24 06:30 05/29/24 09:11 5 MLS/HR Atorvastatin Calcium 40 mg HS NG 05/25/24 22:00 06/24/24 21:10 40 MG Ondansetron HCl 4 mg Q4HP PRN IV 05/25/24 10:45 Nitroglycerin 0.4 mg Q5MINP PRN SL 05/25/24 10:45 Hydralazine HCl 10 mg Q6HP PRN IV 05/29/24 16:30 06/13/24 20:02 10 MG Pantoprazole Sodium 40 mg DAILY IV 05/30/24 10:00 06/24/24 11:22 40 MG Bumetanide 2 mg BIDD IV 05/30/24 18:00 06/24/24 17:50 2 MG Aspirin 81 mg DAILY PO 06/10/24 10:00 06/24/24 11:23 81 MG Enteral Nutritional Formula 1,000 ml 40ML/HR GT 06/15/24 09:15 06/18/24 22:35 1,000 ML Propofol 100 ml @ 4.398 mls/ hr [id number] IV 06/15/24 21:00 2/6/25 15:03 17.592 MLS/HR Albumin Human 100 ml @ 100 mls/hr PRN PRN IV 06/16/24 11:00 06/20/24 10:05 100 MLS/HR Sodium Chloride 10 ml QSHIFT@10,22 IV 06/17/24 22:00 06/24/24 21:10 10 ML Fentanyl Citrate 250 ml @ 2.5 mls/hr Q24H IV 06/17/24 17:30 06/24/24 05:00 12.5 MLS/HR Norepinephrine Bitartrate 250 ml @ 3.75 mls/hr Q24H IV 06/18/24 09:45 06/24/24 08:03 3.75 MLS/HR Albuterol 2.5 mg Q6HR NEB 06/20/24 12:00 06/24/24 18:12 2.5 MG Ipratropium [place] 0.5 mg Q6HR NEB 06/20/24 12:00 06/24/24 18:12 0.5 MG Ceftriaxone Sodium/Dextrose 50 ml @ 50 mls/hr BID IV 06/21/24 22:00 06/24/24 21:10 50 MLS/HR laboratory and microbiology Laboratory Tests 06/24/24 03:20 Test 06/24/24 03:20 Range/Units Serum Glucose 90 74-106 mg/dL Problems(with codes): (1) Metabolic encephalopathy (2) Demand ischemia (3) Pneumonia (4) Sepsis (5) CHF (congestive heart failure) Prognosis Plan Patient is S/P tracheostomy and PEG tube placement Advance G-tube feedings as tolerated Continue supportive care Possible LTAC referral Dietary Evaluation Review Comments: 1) If GI is accessible consider Jevity 1.2 @ 70ml/hr x 24hr continuous feed goal rate as tolerated 2) If pt remains NPO >7 days consider TPN to meet at least 75% of estimated needs 3) Advance pt diet when medically feasible to a 2gm Sodium diet modified per [employer] recommendations 4) Continue current plan of care Expected Outcomes/Goals: 1) Pt to receive nutrition support within 7 days of NPO status 2) Pt diet to advance 3) F/U in 2-3 days Plan discussed with: Other (Nurse) SHELLEY DICKENS MD Jun 24, 2024 22:25
--- NOTE | 2024-06-24 23:05 | DVHPN2 ---
Progress Note - Dictate Date Seen: Jun 24, 2024 Medical Necessity Reason Pt with a Central, PICC or Fol: No The following are medically ne: Central Line, Putnam Catheter Reason for putnam catheter: Strict I&O Subjective Patient seen and examined at bedside. Sedated, on mechanical ventilator. S/p trach Overnight events reviewed. vital signs Vital Sign Date Time Temp Pulse Resp B/P (MAP) Pulse Ox O2 Delivery O2 Flow Rate FiO2 06/24/24 22:41 139/76 06/24/24 22:13 87 21 100 40 06/24/24 20:00 Mechanical Ventilator+ 06/24/24 19:00 99.5 211.1 Total Intake and Output 06/23/24 06/23/24 06/24/24 15:00 23:00 07:00 Intake Total 214.164 ml 392.17 ml 596.93 ml Output Total 10 ml 25 ml Balance 214.164 ml 382.17 ml 571.93 ml medications Current Medications Medications Dose Ordered Sig/Yousif Route Start Time Stop Time Status Last Admin Dose Admin Midazolam HCl 50 ml @ 1 mls/hr Q24H IV 05/25/24 06:30 05/29/24 09:11 5 MLS/HR Atorvastatin Calcium 40 mg HS NG 05/25/24 22:00 06/24/24 21:10 40 MG Ondansetron HCl 4 mg Q4HP PRN IV 05/25/24 10:45 Nitroglycerin 0.4 mg Q5MINP PRN SL 05/25/24 10:45 Hydralazine HCl 10 mg Q6HP PRN IV 05/29/24 16:30 06/13/24 20:02 10 MG Pantoprazole Sodium 40 mg DAILY IV 05/30/24 10:00 06/24/24 11:22 40 MG Bumetanide 2 mg BIDD IV 05/30/24 18:00 06/24/24 17:50 2 MG Aspirin 81 mg DAILY PO 06/10/24 10:00 06/24/24 11:23 81 MG Enteral Nutritional Formula 1,000 ml 40ML/HR GT 06/15/24 09:15 06/18/24 22:35 1,000 ML Propofol 100 ml @ 4.398 mls/ hr [id number] IV 06/15/24 21:00 06/24/24 15:03 17.592 MLS/HR Albumin Human 100 ml @ 100 mls/hr PRN PRN IV 06/16/24 11:00 06/20/24 10:05 100 MLS/HR Sodium Chloride 10 ml QSHIFT@10,22 IV 06/17/24 22:00 06/24/24 21:10 10 ML Fentanyl Citrate 250 ml @ 2.5 mls/hr Q24H IV 06/17/24 17:30 06/24/24 22:41 12.5 MLS/HR Norepinephrine Bitartrate 250 ml @ 3.75 mls/hr Q24H IV 06/18/24 09:45 06/24/24 08:03 3.75 MLS/HR Albuterol 2.5 mg Q6HR NEB 06/20/24 12:00 06/24/24 18:12 2.5 MG Ipratropium [place] 0.5 mg Q6HR NEB 06/20/24 12:00 06/24/24 18:12 0.5 MG Ceftriaxone Sodium/Dextrose 50 ml @ 50 mls/hr BID IV 06/21/24 22:00 06/24/24 21:10 50 MLS/HR objective Gen.: Patient lying in bed in medical ICU. Sedated, on mechanical ventilator. S/p trach Head: Normocephalic, atraumatic. Eyes: PERRLA. Ears: Normal external anatomy. Throat: Endotracheal tube and orogastric tube in place. Neck: Trach in place. Chest: Transmitted breath sounds bilaterally. Decreased air entry bilaterally. No wheezing. Bibasilar crackles. Cardiovascular: Positive S1, positive S2. Regular rate and rhythm. Abdomen: Positive bowel sounds in all 4 quadrants. Soft, nontender, nondistended. : Putnam in place. Normal external genitalia. Rectal: Deferred. Skin: Warm, dry. Intact. Extremities: 2+ radial pulses bilaterally. No lower extremity edema. Neuro: Sedated laboratory and microbiology Laboratory Tests 06/24/24 03:20 Test 06/24/24 03:20 Range/Units Serum Glucose 90 74-106 mg/dL Assessment/Plan Impression: Acute hypoxic respiratory failure On mechanical ventilator Septic shock Elevated troponin Acute kidney injury Lactic acidosis Metabolic acidosis Multifocal pneumonia, likely gram negative Pulmonary edema AE COPD Events: On vent support On AC mode; RR 18, VT 500, PEEP 5, FiO2 30 -->40% ABG reviewed, notable for alkalemia S/p trach Trach care PEG tube in place S/p hemodialysis - 2.4 liters removed. Sedated on Propofol Fentanyl for analgesia On pressors for hemodynamic support Levophed 6 mcg/min Titrate to keep mean arterial pressure greater than 65 mmHg. Continue antibiotics Tube feeds for nutritional support Wound care Monitor hemoglobin Blood pressure control Diurese to euvolemia w/ Bumex Monitor renal function Monitor electrolytes, supplement as necessary Hemodialysis per Nephrology Nephrology recs appreciated. Echo showed EF of 40%. SBT/KAREN Awaiting for mentation to improve. Awaiting LTAC placement Poor prognosis, poor chance of meaningful recovery CT head revealed e/o multiple strokes. Neurology recommendations appreciated Labs and imaging reviewed. Rest of plan as noted below. Plan: s/p intubation on mechanical ventilator. On AC mode; RR 18, VT 500, PEEP 5, FiO2 40% Titrate FIO2 to keep O2 saturation above 90%. VAP bundle. Daily ABG and CXR while intubated Sedated for vent synchrony Continue bronchodilators. Continue antibiotics. F/u cultures. On pressors for hemodynamic support Titrate to keep mean arterial pressure greater than 65 mmHg. Cardiology recs appreciated. Monitor renal function Monitor electrolytes. Supplement as necessary. Monitor ins and outs. Nephrology recs appreciated. IV fluid hydration GI prophylaxis. DVT prophylaxis. Prognosis: Poor given patient's multiple co-morbidities. Condition: Critical Rest of plan per hospitalist and other consultants. A total of 35 minutes of critical care time was spent reviewing the patient record, examining the patient, making a diagnostic and therapeutic plan, discussing this plan with the medical personnel, following up on diagnostic studies and following the patient for clinical stability excluding any and all procedures. At least 50% of this time was spent in direct, [id number] contact. Thank you, [employer], for allowing me to participate in this patient's care. Further recommendations will depend on the patient's clinical course. Please do not hesitate to contact me if you have any questions or concerns. This medical document was created using an electronic medical record system with [employer] system. Although these documentations are being carefully reviewed, there may still be some phonetic and typographical changes. The errors are purely typographical, due to imperfection on the software program, and do not reflect any compromise in the patient's medical care. Dietary Evaluation Review Comments: 1) If GI is accessible consider Jevity 1.2 @ 70ml/hr x 24hr continuous feed goal rate as tolerated 2) If pt remains NPO >7 days consider TPN to meet at least 75% of estimated needs 3) Advance pt diet when medically feasible to a 2gm Sodium diet modified per [employer] recommendations 4) Continue current plan of care Expected Outcomes/Goals: 1) Pt to receive nutrition support within 7 days of NPO status 2) Pt diet to advance 3) F/U in 2-3 days Plan discussed with: Other (LUZMARIA Holbrook) Critical Care Time(min): 35 MELODY ELIZABETH MD Jun 24, 2024 23:05
[2024-06-25] VITALS (111 sets, daily range): BP systolic 69–154; BP diastolic 41–93; PULSE 76–98; RESP 18–26; TEMP 98.5–99.2; O2SAT 94–100
--- NOTE | 2024-06-25 09:42 | DVHPN2 ---
Subjective Patient encephalopathic Reviewed: Care Plan, H&P, Labs, Medications, Previous Orders, Radiology, Other Changes from previous H/P or p: No Changes General: Per HPI Objective Vitals Vital Signs Date Time Temp Pulse Resp B/P (MAP) Pulse Ox O2 Delivery O2 Flow Rate FiO2 06/25/24 08:30 82 21 91/54 (66) 100 06/25/24 08:14 40 06/25/24 08:06 Mechanical Ventilator+ 06/25/24 08:00 99.1 99.1 Intake/Output Intake and Output 06/25/24 07:00 Intake Total 1600.2864 ml Output Total 32 ml Balance 1568.2864 ml IV Total 941.2864 ml Tube Feeding 659 ml Output Urine Total 32 ml # Bowel Movements 2 General Appearance: moderate distress, Other (Patient chemically sedated) HEENT: Atraumatic, PERRLA, Other Neck: Other (Tracheostomy) Lungs: Other (Mechanical ventilation. Decreased breath sounds at bases.) Chest/Breasts: Other (Tunneled HD cath) Cardiovascular: Normal S1, Normal S2, Other Abdomen: Normal bowel sounds, Soft Genitourinary: Other Neuro: Other Skin: Dry, Intact Psych/Mental Status: Other Medications Current Medications Medications Dose Ordered Sig/Yousif Route Start Time Stop Time Status Last Admin Dose Admin Midazolam HCl 50 ml @ 1 mls/hr Q24H IV 05/25/24 06:30 05/29/24 09:11 5 MLS/HR Atorvastatin Calcium 40 mg HS NG 05/25/24 22:00 06/24/24 21:10 40 MG Ondansetron HCl 4 mg Q4HP PRN IV 05/25/24 10:45 Nitroglycerin 0.4 mg Q5MINP PRN SL 05/25/24 10:45 Hydralazine HCl 10 mg Q6HP PRN IV 05/29/24 16:30 06/13/24 20:02 10 MG Pantoprazole Sodium 40 mg DAILY IV 05/30/24 10:00 06/24/24 11:22 40 MG Bumetanide 2 mg BIDD IV 05/30/24 18:00 06/25/24 06:12 2 MG Aspirin 81 mg DAILY PO 06/10/24 10:00 06/24/24 11:23 81 MG Enteral Nutritional Formula 1,000 ml 40ML/HR GT 06/15/24 09:15 06/18/24 22:35 1,000 ML Propofol 100 ml @ 4.398 mls/ hr [id number] IV 06/15/24 21:00 06/25/24 04:42 13.194 MLS/HR Albumin Human 100 ml @ 100 mls/hr PRN PRN IV 06/16/24 11:00 06/25/24 08:13 100 MLS/HR Sodium Chloride 10 ml QSHIFT@10,22 IV 06/17/24 22:00 06/24/24 21:10 10 ML Fentanyl Citrate 250 ml @ 2.5 mls/hr Q24H IV 06/17/24 17:30 06/24/24 22:41 12.5 MLS/HR Norepinephrine Bitartrate 250 ml @ 3.75 mls/hr Q24H IV 06/18/24 09:45 06/24/24 08:03 3.75 MLS/HR Albuterol 2.5 mg Q6HR NEB 06/20/24 12:00 06/25/24 06:41 2.5 MG Ipratropium [place] 0.5 mg Q6HR NEB 06/20/24 12:00 06/25/24 06:42 0.5 MG Ceftriaxone Sodium/Dextrose 50 ml @ 50 mls/hr BID IV 06/21/24 22:00 06/24/24 21:10 50 MLS/HR Laboratory Results Laboratory Tests 06/24/24 03:20 Urinalysis Test 05/25/24 08:30 05/28/24 01:30 Urine Color Yellow (Yellow) Urine Clarity Clear (Clear) Urine pH 7.5 (5.0-9.0) Urine Specific [place] 1.013 (1.001-1.035) Urine Protein 2+ (Negative) H Urine Ketones Negative (Negative) Urine Blood Negative /uL (Negative) Urine Nitrite Negative (Negative) Urine Bilirubin Negative (Negative) Urine Urobilinogen 8 mg/dL (Negative) H Urine Leukocyte Esterase Negative /uL (Negative) Urine RBC 5 /hpf (0 - 4) Urine WBC 1 /hpf (0 - 5) Urine Squamous Epithelial Cells Few /hpf (<5) Urine Bacteria None seen /hpf (None Seen) Urine Glucose Normal mg/dL (Normal) Urine Creatinine 248.25 mg/dL (30.0-125.0) H Urine Sodium 27 mmol/L (40-220) L Urine Total Protein 293.2 mg/dL (1-14) H Microbiology Microbiology Date/Time Source Procedure Growth Status 06/09/24 17:21 Urine - [place] Urine Culture - Final Complete 06/07/24 10:50 Blood Blood Culture - Final NO GROWTH AFTER 5 DAYS OF INCUBATION. Complete 05/27/24 08:50 Nose MRSA Screen - Final Complete 05/25/24 06:50 Sputum Gram Stain - Final Complete 05/25/24 06:50 Respiratory Culture - Final Presumptive Tara albicans Complete Labs and/or images reviewed: Labs reviewed by me, Image(s) reviewed by me Assessment/Plan Assessment/Plan Impression: -severe sepsis with shock , Streptococcus pneumoniae -probable community-acquired pneumonia with Gram-positive cocci -sepsis with Gram-positive cocci -acute hypoxic respiratory failure with mechanical ventilation -obesity -acute kidney injury, anuric -NSTEMI, probably type 2 -hypoalbuminemia -? Angioedema on resolved -respiratory alkalosis -multifocal CVA -endocarditis Plan: Events: No events overnight. Sedation being weaned. Noted spontaneous eye opening, unable to follow commands at this time. Receiving hemodialysis. Patient was status post tracheostomy, peg placement, tunneled dialysis catheter placement, PICC line placement for long-term antibiotics. Awaiting LTAC -bronchodilators -antibiotic therapy per Infectious Disease -ventilator settings per veterinary nurse -nephrology consultation: HD -PUD, DVT prophylaxis -repeat labs, chest x-ray, ABG in a.m.. -social service consultation for LTAC placement Critical care time spent with patient discussing and formulating plan of care: 40 minutes. This does not include time spent performing procedures. This medical document was created using an electronic medical record system with [employer] dictation system. Although this document has been carefully reviewed, there may still be some phonetic and typographical errors. These areas are purely typographical due to imperfections of the software programs, and do not reflect any compromise in the patient's medical care. Plan discussed with: Patient, Other (RN) My Orders Orders - OMAR PARK HOP [facility]ORTER Procedure Category Date Status Time * Wound Consult CONS 06/24/24 Transmitted Cleanse Wound With Ns ROB 06/24/24 In Process 13:52 Complete Blood Count LAB 06/26/24 Verified 04:00 Basic Metabolic Panel LAB 06/26/24 Verified 04:00 Date of Service: Jun 25, 2024 Billing Provider: OMAR PARK NP Common Visit Codes: [id number] CARE 30-74 MIN OMAR PARK NP Jun 25, 2024 09:42
--- NOTE | 2024-06-25 13:45 | PEER ---
Peer to Peer Review Time DATE: 06/25/24 TIME: 13:44 Review and Recommendations: Discussed care with Dr. Hernandez who feels patient is not stable for LTACH and wants pt to continue treatment for re-evaluation of LTACH appropriateness. OMAR PARK NP Jun 25, 2024 13:45
[2024-06-25 15:19] LABS: Base Excess 1.9 mmol/L (-2.0-3.0)
--- NOTE | 2024-06-25 16:11 | DVHPN2 ---
Consult Progress Note Date Seen: Jun 22, 2024 Objective vital signs Vital Sign Date Time Temp Pulse Resp B/P (MAP) Pulse Ox O2 Delivery O2 Flow Rate FiO2 06/25/24 15:45 78 19 86/50 (62) 100 06/25/24 14:16 40 06/25/24 14:00 Mechanical Ventilator+ 06/25/24 12:00 98.5 98.5 Total Intake and Output 06/24/24 06/24/24 06/25/24 15:00 23:00 07:00 Intake Total 380.180 ml 645.552 ml 574.5544 ml Output Total 25 ml 7 ml Balance 380.180 ml 620.552 ml 567.5544 ml medications Current Medications Medications Dose Ordered Sig/Yousif Route Start Time Stop Time Status Last Admin Dose Admin Midazolam HCl 50 ml @ 1 mls/hr Q24H IV 05/25/24 06:30 05/29/24 09:11 5 MLS/HR Atorvastatin Calcium 40 mg HS NG 05/25/24 22:00 06/24/24 21:10 40 MG Ondansetron HCl 4 mg Q4HP PRN IV 05/25/24 10:45 Nitroglycerin 0.4 mg Q5MINP PRN SL 05/25/24 10:45 Hydralazine HCl 10 mg Q6HP PRN IV 05/29/24 16:30 06/13/24 20:02 10 MG Pantoprazole Sodium 40 mg DAILY IV 05/30/24 10:00 06/25/24 11:54 40 MG Bumetanide 2 mg BIDD IV 05/30/24 18:00 06/25/24 06:12 2 MG Aspirin 81 mg DAILY PO 06/10/24 10:00 06/25/24 11:58 81 MG Enteral Nutritional Formula 1,000 ml 40ML/HR GT 06/15/24 09:15 06/18/24 22:35 1,000 ML Propofol 100 ml @ 4.398 mls/ hr [id number] IV 06/15/24 21:00 06/25/24 12:00 13.194 MLS/HR Albumin Human 100 ml @ 100 mls/hr PRN PRN IV 06/16/24 11:00 06/25/24 08:13 100 MLS/HR Sodium Chloride 10 ml QSHIFT@10,22 IV 06/17/24 22:00 06/25/24 11:54 10 ML Fentanyl Citrate 250 ml @ 2.5 mls/hr Q24H IV 06/17/24 17:30 06/25/24 13:55 17.5 MLS/HR Norepinephrine Bitartrate 250 ml @ 3.75 mls/hr Q24H IV 06/18/24 09:45 06/25/24 13:13 7.5 MLS/HR Albuterol 2.5 mg Q6HR NEB 06/20/24 12:00 06/25/24 12:23 2.5 MG Ipratropium [place] 0.5 mg Q6HR NEB 06/20/24 12:00 06/25/24 12:23 0.5 MG Ceftriaxone Sodium/Dextrose 50 ml @ 50 mls/hr BID IV 06/21/24 22:00 06/25/24 11:54 50 MLS/HR laboratory and microbiology Laboratory Tests 06/24/24 03:20 Test 06/24/24 03:20 Range/Units Serum Glucose 90 74-106 mg/dL Problem List/Assessment/Plan Problems(with codes): (1) CHF (congestive heart failure) (2) Sepsis (3) Pneumonia (4) Demand ischemia (5) Metabolic encephalopathy Problem List/Assessment/Plan _ Attending Addendum: Case discussed with Dr. Knight. at the time of visit. 40 year old female with a past medical history of hypertension found to be altered , intubated for worsening acute hypoxic respiratory failurw with unclear ideology . concern for septic picture , patient was needing ventilatory support , vasopressures , steroids . no known history of drungs or smoking . no recent medications. orginally treated with cefapine and doxycycline but eventually put on dialysis and found strep pneumonia in blood , likely lung origin . found to have vegitation in the antrium and anterior mitral leflet which was confirmed on SAMIR as well as mitral regurgitation . MRI of brain concerning for possible small focus of subacute ischemia and the right periventricular region likely consistent with septic embolie . SAMIR showed 3 mm vegitation on the intermitral leftlet . currently on ceftriaxone therapy for endocarditis. negative for any type of hepatitis , urine drig screen was negative . no signs of septic embolism problem list - strep pneumonia , bacteremia , endocarditis , septic shock , septic emboli to brain , pneumonia, mitral valve regurgitation , CHF , acute renal failure on dialysis plan: recommend increasing ceftriaxone to 2 G 2x a day to cover septic emboli of brain as well as endocarditis . patient needs piccline to administer antibiotic . continue regimen for 6 weeks and after 6 weeks patient will need to repeat TTE as outpatient . follow up with infectious disease in 4-[address] of chest to rule out possibility of septic emboli to lungs vs ongoing pneumonia/ para nemonic infusion . defer management of ventilatory and dialysis to pulmonology and nephrology. Have reviewed vital sign s, imagine and labs that are relevant to patients case . otherwise agree with Dr. Burrell plan . Unable to do 12 point system review due to patient being on sedation and not awake 2/4: Difficult to ween off vent and has been having improved airspace opacities on chest xray and since has been started on Ceftriaxone 2 grams Q12 , chest Ct was done and there was no finding to suggest septic emboli or persistent plural effusions that could be keeping patients from being off the ventilator . Continue Ceftriaxone 2 grams every 12 hours for 6 weeks via piccline . prognosis overall is poor , may proceed with tracheostomy . no contraindications from infectious disease of additional infectious work up needed Otherwise reviewed and agree with Dr Knight's findings, A/P as written in note. PE: General Appearance: Cooperative. Well developed. Well nourished. NAD. intubated and sedated . morbidly obease Head Exam: Normal inspection Neck Exam: Normal inspection. Non-tender. Normal alignment Pulmonary/Respiratory: Chest non-tender. Clear bilateral breath sounds. minimal vent with traces of pressures and unable to ween off vent due to mentating well of sedation but continues to have signs of agitation Cardiovascular/Chest: No murmurs. No JVD. Abdominal Exam: Normal bowel sounds. Soft. Nontender. No hepatosplenomegaly. No masses Skin: no open wounds or lesions Ankle Exam: Lower extremities: Josh Roberson MD Plan discussed with: Other Dietary Evaluation Review Comments: 1) If GI is accessible consider Jevity 1.2 @ 70ml/hr x 24hr continuous feed goal rate as tolerated 2) If pt remains NPO >7 days consider TPN to meet at least 75% of estimated needs 3) Advance pt diet when medically feasible to a 2gm Sodium diet modified per TRACK REPAIR WORKER recommendations 4) Continue current plan of care Expected Outcomes/Goals: 1) Pt to receive nutrition support within 7 days of NPO status 2) Pt diet to advance 3) F/U in 2-3 days JOSH ROBERSON MD Jun 25, 2024 16:11
--- NOTE | 2024-06-25 16:14 | DVHPN2 ---
Consult Progress Note Date Seen: Jun 23, 2024 Subjective Patient reports: Other Objective vital signs Vital Sign Date Time Temp Pulse Resp B/P (MAP) Pulse Ox O2 Delivery O2 Flow Rate FiO2 06/25/24 15:45 78 19 86/50 (62) 100 06/25/24 14:16 40 06/25/24 14:00 Mechanical Ventilator+ 06/25/24 12:00 98.5 98.5 Total Intake and Output 06/24/24 06/24/24 06/25/24 15:00 23:00 07:00 Intake Total 380.180 ml 645.552 ml 574.5544 ml Output Total 25 ml 7 ml Balance 380.180 ml 620.552 ml 567.5544 ml medications Current Medications Medications Dose Ordered Sig/Yousif Route Start Time Stop Time Status Last Admin Dose Admin Midazolam HCl 50 ml @ 1 mls/hr Q24H IV 05/25/24 06:30 05/29/24 09:11 5 MLS/HR Atorvastatin Calcium 40 mg HS NG 05/25/24 22:00 06/24/24 21:10 40 MG Ondansetron HCl 4 mg Q4HP PRN IV 05/25/24 10:45 Nitroglycerin 0.4 mg Q5MINP PRN SL 05/25/24 10:45 Hydralazine HCl 10 mg Q6HP PRN IV 05/29/24 16:30 06/13/24 20:02 10 MG Pantoprazole Sodium 40 mg DAILY IV 05/30/24 10:00 06/25/24 11:54 40 MG Bumetanide 2 mg BIDD IV 05/30/24 18:00 06/25/24 06:12 2 MG Aspirin 81 mg DAILY PO 06/10/24 10:00 06/25/24 11:58 81 MG Enteral Nutritional Formula 1,000 ml 40ML/HR GT 06/15/24 09:15 06/18/24 22:35 1,000 ML Propofol 100 ml @ 4.398 mls/ hr [id number] IV 06/15/24 21:00 06/25/24 12:00 13.194 MLS/HR Albumin Human 100 ml @ 100 mls/hr PRN PRN IV 06/16/24 11:00 06/25/24 08:13 100 MLS/HR Sodium Chloride 10 ml QSHIFT@10,22 IV 06/17/24 22:00 06/25/24 11:54 10 ML Fentanyl Citrate 250 ml @ 2.5 mls/hr Q24H IV 06/17/24 17:30 06/25/24 13:55 17.5 MLS/HR Norepinephrine Bitartrate 250 ml @ 3.75 mls/hr Q24H IV 06/18/24 09:45 06/25/24 13:13 7.5 MLS/HR Albuterol 2.5 mg Q6HR NEB 06/20/24 12:00 06/25/24 12:23 2.5 MG Ipratropium [place] 0.5 mg Q6HR NEB 06/20/24 12:00 06/25/24 12:23 0.5 MG Ceftriaxone Sodium/Dextrose 50 ml @ 50 mls/hr BID IV 06/21/24 22:00 06/25/24 11:54 50 MLS/HR laboratory and microbiology Laboratory Tests 06/24/24 03:20 Test 06/24/24 03:20 Range/Units Serum Glucose 90 74-106 mg/dL Problem List/Assessment/Plan Problems(with codes): (1) CHF (congestive heart failure) (2) Sepsis (3) Pneumonia (4) Demand ischemia (5) Metabolic encephalopathy Problem List/Assessment/Plan _ Attending Addendum: Case discussed with Dr. Knight. at the time of visit. 40 year old female with a past medical history of hypertension found to be altered , intubated for worsening acute hypoxic respiratory failurw with unclear ideology . concern for septic picture , patient was needing ventilatory support , vasopressures , steroids . no known history of drungs or smoking . no recent medications. orginally treated with cefapine and doxycycline but eventually put on dialysis and found strep pneumonia in blood , likely lung origin . found to have vegitation in the antrium and anterior mitral leflet which was confirmed on SAMIR as well as mitral regurgitation . MRI of brain concerning for possible small focus of subacute ischemia and the right periventricular region likely consistent with septic embolie . SAMIR showed 3 mm vegitation on the intermitral leftlet . currently on ceftriaxone therapy for endocarditis. negative for any type of hepatitis , urine drig screen was negative . no signs of septic embolism problem list - strep pneumonia , bacteremia , endocarditis , septic shock , septic emboli to brain , pneumonia, mitral valve regurgitation , CHF , acute renal failure on dialysis plan: recommend increasing ceftriaxone to 2 G 2x a day to cover septic emboli of brain as well as endocarditis . patient needs piccline to administer antibiotic . continue regimen for 6 weeks and after 6 weeks patient will need to repeat TTE as outpatient . follow up with infectious disease in 4-[address] of chest to rule out possibility of septic emboli to lungs vs ongoing pneumonia/ para nemonic infusion . defer management of ventilatory and dialysis to pulmonology and nephrology. Have reviewed vital sign s, imagine and labs that are relevant to patients case . otherwise agree with Dr. Burrell plan . Unable to do 12 point system review due to patient being on sedation and not awake 2/4: Difficult to ween off vent and has been having improved airspace opacities on chest xray and since has been started on Ceftriaxone 2 grams Q12 , chest Ct was done and there was no finding to suggest septic emboli or persistent plural effusions that could be keeping patients from being off the ventilator . Continue Ceftriaxone 2 grams every 12 hours for 6 weeks via piccline . prognosis overall is poor , may proceed with tracheostomy . no contraindications from infectious disease of additional infectious work up needed 2/5: underwent dialysis and tolerated procedure without any issues . Patient has a clean tracheostomy placed today without any complications and site appears clean. Patient is currently on FIO2 50% on trach . Continue ceftriaxone 2 grams every 12 hours for 6 weeks . If patients clinical status allows would recommend patient follow up with infectious disease in 6 weeks to repeat echocardiogram as well as determine if additional therapy is needed for endocarditis. Otherwise reviewed and agree with Dr Knight's findings, A/P as written in note. PE: General Appearance: Cooperative. Well developed. Well nourished. NAD. intubated and sedated . morbidly obease Head Exam: Normal inspection Neck Exam: Normal inspection. Non-tender. Normal alignment Pulmonary/Respiratory: Chest non-tender. Clear bilateral breath sounds. minimal vent with traces of pressures and unable to ween off vent due to mentating well of sedation but continues to have signs of agitation Cardiovascular/Chest: No murmurs. No JVD. Abdominal Exam: Normal bowel sounds. Soft. Nontender. No hepatosplenomegaly. No masses Skin: no open wounds or lesions Ankle Exam: Lower extremities: Josh Roberson MD Plan discussed with: Other Dietary Evaluation Review Comments: 1) If GI is accessible consider Jevity 1.2 @ 70ml/hr x 24hr continuous feed goal rate as tolerated 2) If pt remains NPO >7 days consider TPN to meet at least 75% of estimated needs 3) Advance pt diet when medically feasible to a 2gm Sodium diet modified per INVENTORY MANAGER recommendations 4) Continue current plan of care Expected Outcomes/Goals: 1) Pt to receive nutrition support within 7 days of NPO status 2) Pt diet to advance 3) F/U in 2-3 days JOSH ROBERSON MD Jun 25, 2024 16:14
--- NOTE | 2024-06-25 19:26 | DVHPN2 ---
Progress Note Date Seen: Jun 25, 2024 Medical Necessity Reason Pt with a Central, PICC or Fol: No The following are medically ne: Central Line, [place] Catheter Reason for putnam catheter: Strict I&O Subjective Patient reports: Other Review of Systems: Deferred Objective vital signs Vital Sign Date Time Temp Pulse Resp B/P (MAP) Pulse Ox O2 Delivery O2 Flow Rate FiO2 06/25/24 18:45 80 20 124/72 (89) 100 06/25/24 18:18 40 06/25/24 17:34 Mechanical Ventilator+ 06/25/24 16:00 99.1 99.1 Total Intake and Output 06/24/24 06/24/24 06/25/24 15:00 23:00 07:00 Intake Total 380.180 ml 645.552 ml 574.5544 ml Output Total 25 ml 7 ml Balance 380.180 ml 620.552 ml 567.5544 ml medications Current Medications Medications Dose Ordered Sig/Yousif Route Start Time Stop Time Status Last Admin Dose Admin Midazolam HCl 50 ml @ 1 mls/hr Q24H IV 05/25/24 06:30 05/29/24 09:11 5 MLS/HR Atorvastatin Calcium 40 mg HS NG 05/25/24 22:00 06/24/24 21:10 40 MG Ondansetron HCl 4 mg Q4HP PRN IV 05/25/24 10:45 Nitroglycerin 0.4 mg Q5MINP PRN SL 05/25/24 10:45 Hydralazine HCl 10 mg Q6HP PRN IV 05/29/24 16:30 06/13/24 20:02 10 MG Pantoprazole Sodium 40 mg DAILY IV 05/30/24 10:00 06/25/24 11:54 40 MG Bumetanide 2 mg BIDD IV 05/30/24 18:00 06/25/24 17:47 2 MG Aspirin 81 mg DAILY PO 06/10/24 10:00 06/25/24 11:58 81 MG Enteral Nutritional Formula 1,000 ml 40ML/HR GT 06/15/24 09:15 06/18/24 22:35 1,000 ML Propofol 100 ml @ 4.398 mls/ hr [id number] IV 06/15/24 21:00 06/25/24 18:18 13.194 MLS/HR Albumin Human 100 ml @ 100 mls/hr PRN PRN IV 06/16/24 11:00 06/25/24 08:13 100 MLS/HR Sodium Chloride 10 ml QSHIFT@10,22 IV 06/17/24 22:00 06/25/24 11:54 10 ML Fentanyl Citrate 250 ml @ 2.5 mls/hr Q24H IV 06/17/24 17:30 06/25/24 13:55 17.5 MLS/HR Norepinephrine Bitartrate 250 ml @ 3.75 mls/hr Q24H IV 06/18/24 09:45 06/25/24 13:13 7.5 MLS/HR Albuterol 2.5 mg Q6HR NEB 06/20/24 12:00 06/25/24 18:18 2.5 MG Ipratropium [place] 0.5 mg Q6HR NEB 06/20/24 12:00 06/25/24 18:18 0.5 MG Ceftriaxone Sodium/Dextrose 50 ml @ 50 mls/hr BID IV 06/21/24 22:00 06/25/24 11:54 50 MLS/HR laboratory and microbiology Laboratory Tests 06/24/24 03:20 Test 06/24/24 03:20 Range/Units Serum Glucose 90 74-106 mg/dL Microbiology Date/Time Source Procedure Growth Status 06/09/24 17:21 Urine - [place] Urine Culture - Final Complete 06/07/24 10:50 Blood Blood Culture - Final NO GROWTH AFTER 5 DAYS OF INCUBATION. Complete 05/27/24 08:50 Nose MRSA Screen - Final Complete 05/25/24 06:50 Sputum Gram Stain - Final Complete 05/25/24 06:50 Respiratory Culture - Final Presumptive [place] albicans Complete Problem List/Assessment/Plan Problem List/Assessment/Plan Acute kidney injury likely ATN needing HD Unknown recent baseline Severe sepsis Morbid obesity Ventilator-dependent hypoxic respiratory failure recs seen on Hemodialysis today,,next HD friday Status post tunneled catheter Status post tracheostomy Plan discussed with: Other Dietary Evaluation Review Comments: 1) If GI is accessible consider Jevity 1.2 @ 70ml/hr x 24hr continuous feed goal rate as tolerated 2) If pt remains NPO >7 days consider TPN to meet at least 75% of estimated needs 3) Advance pt diet when medically feasible to a 2gm Sodium diet modified per RIVER RAFTING GUIDE recommendations 4) Continue current plan of care Expected Outcomes/Goals: 1) Pt to receive nutrition support within 7 days of NPO status 2) Pt diet to advance 3) F/U in 2-3 days LAN CHOWDHURY MD Jun 25, 2024 19:26
--- NOTE | 2024-06-25 21:24 | DVHPN2 ---
Progress Note - Dictate Date Seen: Jun 25, 2024 Medical Necessity Reason Pt with a Central, PICC or Fol: No The following are medically ne: Central Line, Putnam Catheter Reason for putnam catheter: Strict I&O Subjective Ms. Pandya is a 53 years old right-handed female with a history of morbid obesity, hypertension, the patient was was brought to the [facility] on 05/25/24 with a chief company of altered mental status, respiratory distress. I have seen and examined the patient, I have talked to her nurse and other medical staff. She is responsive to verbal stimuli, but she does not follow or move her extremities. Fentanyl 175 mcg/hour, propofol 15mcg/minute, Levo 8 mcg/minute Urine culture, 05/25/2024: Negative Blood culture, 05/25/2024: Streptococcus pneumoniae UDS, 05/25/2024: Negative Urinalysis, 05/25/2024: WBC: 1, urine leukocyte esterase: Negative ABG, 05/25/2024: Metabolic acidosis, hypoxia, 05/26/2024: Metabolic acidosis, hypoxia, 05/27/24: Metabolic acidosis, hypoxia WBC/HB/PLT/MCV, 06/02/2024: 22.4/9/342/89.4 06/09/2024: 19.6/9.4/235/91.6, 06/12/2024: 8.2/9.2/205/90.6 BUN/CR, 05/26/2024: 62/7.01 06/02/2024: 123/6.59, 06/09/2024: 137/6.32, 06/12/2024: 71/4.33 HGB A1c, 05/25/2024: 5.6 Lactic acid, 05/25/2024: 3.6, 4.6, 4.2, 05/26/2024: 3.6 Troponin one high sensitivity, 05/25/2024: 1060, 1354, 1262 TBI/AST/ALT/AP, 05/26/2024: 2/246/167/98, 06/07/2024: 0.9/139/464/93 TG/HDL/LDL/HDL, 05/25/2024: 192/98/40/8 Vitamin B12, 06/02/2024: 836 TSH, 05/25/2024: 0.57 SAMIR, 06/15/2024: Vegetation anterior mitral leaflet Carotid Doppler, 06/15/2024: 1. There is no hemodynamically significant stenosis in the right common carotid and internal carotid arteries. There is elevated peak systolic velocity in the right external carotid artery. 2. Nonvisualization of the left carotid and vertebral arteries secondary to overlying bandage. Consider further evaluation with CTA neck Chest x-ray, 05/25/2024: 1. Distal tip of the endotracheal tube is approximately 5.5 cm above the level of the nik. 2. Poorly visualized enteric tube at its distal aspect. Appears to reach the gastroesophageal junction, although not visualized distal to this point. Correlate with clinical findings. 3. Bilateral airspace opacities and interstitial opacities, may be due to multifocal pneumonia or pulmonary edema in the appropriate clinical setting CT head, 05/25/2024: No gross acute intracranial process CT head, 06/02/24: 1. Interval development of 2 foci of subcortical parenchymal hemorrhage in the left frontal lobe. No mass effect or midline shift. 2. Moderate amount of fluid in the posterior nasopharynx likely related to intubation. Recommend suctioning to prevent aspiration. 3. Small bilateral mastoid effusions. We are in the process of reaching out to the nurse or physician in charge of the patient to convey the findings. CT head, 06/04/2024: Redemonstrated are 2 hyperdense foci in the subcortical left frontal lobe which may represent small foci of parenchymal hemorrhage. There is no significant surrounding edema or associated mass effect CT head, 06/06/2024: The 2 foci of left frontal subcortical hemorrhage are less conspicuous in the current exam partially resolved. No new foci of hemorrhage CT chest, 06/23/2024: 1. Bilateral lower lobe consolidations which may reflect atelectasis or pneumonia. No findings to suggest septic emboli. 2. Cardiomegaly. MR head, 06/15/2024: Extensive periventricular and deep white matter signal abnormality most of which is likely chronic. Possible small focus of subacute ischemia in the right periventricular region. No definite acute intracranial hemorrhage on MRI. Clinical correlation and continued follow-up is recommended. vital signs Vital Sign Date Time Temp Pulse Resp B/P (MAP) Pulse Ox O2 Delivery O2 Flow Rate FiO2 06/25/24 20:30 92 23 109/57 (74) 99 06/25/24 20:30 Mechanical Ventilator+ 40 40 06/25/24 16:00 99.1 99.1 Total Intake and Output 06/24/24 06/24/24 06/25/24 15:00 23:00 07:00 Intake Total 380.180 ml 645.552 ml 574.5544 ml Output Total 25 ml 7 ml Balance 380.180 ml 620.552 ml 567.5544 ml medications Current Medications Medications Dose Ordered Sig/Yousif Route Start Time Stop Time Status Last Admin Dose Admin Midazolam HCl 50 ml @ 1 mls/hr Q24H IV 05/25/24 06:30 05/29/24 09:11 5 MLS/HR Atorvastatin Calcium 40 mg HS NG 05/25/24 22:00 06/25/24 21:17 40 MG Ondansetron HCl 4 mg Q4HP PRN IV 05/25/24 10:45 Nitroglycerin 0.4 mg Q5MINP PRN SL 05/25/24 10:45 Hydralazine HCl 10 mg Q6HP PRN IV 05/29/24 16:30 06/13/24 20:02 10 MG Pantoprazole Sodium 40 mg DAILY IV 05/30/24 10:00 06/25/24 11:54 40 MG Bumetanide 2 mg BIDD IV 05/30/24 18:00 06/25/24 17:47 2 MG Aspirin 81 mg DAILY PO 06/10/24 10:00 06/25/24 11:58 81 MG Enteral Nutritional Formula 1,000 ml 40ML/HR GT 06/15/24 09:15 06/18/24 22:35 1,000 ML Propofol 100 ml @ 4.398 mls/ hr [id number] IV 06/15/24 21:00 06/25/24 18:18 13.194 MLS/HR Albumin Human 100 ml @ 100 mls/hr PRN PRN IV 06/16/24 11:00 06/25/24 08:13 100 MLS/HR Sodium Chloride 10 ml QSHIFT@10,22 IV 06/17/24 22:00 06/25/24 21:17 10 ML Fentanyl Citrate 250 ml @ 2.5 mls/hr Q24H IV 06/17/24 17:30 06/25/24 13:55 17.5 MLS/HR Norepinephrine Bitartrate 250 ml @ 3.75 mls/hr Q24H IV 06/18/24 09:45 06/25/24 13:13 7.5 MLS/HR Albuterol 2.5 mg Q6HR NEB 06/20/24 12:00 06/25/24 18:18 2.5 MG Ipratropium [place] 0.5 mg Q6HR NEB 06/20/24 12:00 06/25/24 18:18 0.5 MG Ceftriaxone Sodium/Dextrose 50 ml @ 50 mls/hr BID IV 06/21/24 22:00 06/25/24 21:17 50 MLS/HR objective The patient is well-nourished and well-developed with no distress. Status post tracheostomy Status post PEG feeding tube insertion MENTAL STATUS: Subjective CRANIAL NERVES: Pupils are round and reactive. There are spontaneous conjugated eye movement. No signs of facial weakness. There are gagging or coughing reflexes during oral care. SENSATION: Response to strong painful stimuli MOTOR: Normal tone in the upper and lower extremity. Normal muscle bulk. No fasciculations. No spontaneous movement REFLEXES: Deep tendon reflexes are symmetrical. No pathological reflexes. CEREBELLAR/COORDINATION: Deferred GAIT/STATION: deferred. laboratory and microbiology Laboratory Tests 06/24/24 03:20 Test 06/24/24 03:20 Range/Units Serum Glucose 90 74-106 mg/dL Problem List Altered mental status/Coma Hypoxic encephalopathy secondary to respiratory failure Metabolic encephalopathy secondary to acidosis, sepsis, septic shock, kidney failure Multiple acute/subacute strokes Heart attack Pneumonia Sepsis, septic shock Endocarditis Acute on chronic kidney failure Acute petechial hemorrhage in the left frontal lobe, improving on follow-up CT Anisocoria, uncertain clinical significance Assessment/Plan Monitoring Supportive treatment ICU care Follow-up labs Stabilize vitals/pressor drip Respiratory support/vent management Oxygen IV antibiotics GI prophylaxis/Protonix DVT prophylaxis/heparin Nephrology on case Pulmonology on case Infectious diseases on case She is s/p PEG feeding tube insertion and tracheostomy More recommendation per clinical course This medical document was created using an electronic medical record system with [employer] system. Although this document has been carefully reviewed, there may still be some phonetic and typographical errors. These areas are purely typographical due to imperfections of the software programs, and do not reflect any compromise in the patient's medical care Prognosis poor Dietary Evaluation Review Comments: 1) If GI is accessible consider Jevity 1.2 @ 70ml/hr x 24hr continuous feed goal rate as tolerated 2) If pt remains NPO >7 days consider TPN to meet at least 75% of estimated needs 3) Advance pt diet when medically feasible to a 2gm Sodium diet modified per PUBLIC ADDRESS ANNOUNCER recommendations 4) Continue current plan of care Expected Outcomes/Goals: 1) Pt to receive nutrition support within 7 days of NPO status 2) Pt diet to advance 3) F/U in 2-3 days Plan discussed with: Other PILAR HOOD MD Jun 25, 2024 21:24
--- NOTE | 2024-06-25 23:16 | DVHPN2 ---
Progress Note - Dictate Date Seen: Jun 25, 2024 Medical Necessity Reason Pt with a Central, PICC or Fol: No The following are medically ne: Central Line, Putnam Catheter Reason for putnam catheter: Strict I&O Subjective Patient seen and examined at bedside. Sedated, on mechanical ventilator. S/p trach Overnight events reviewed. vital signs Vital Sign Date Time Temp Pulse Resp B/P (MAP) Pulse Ox O2 Delivery O2 Flow Rate FiO2 06/25/24 22:15 84 20 131/69 (89) 99 30 06/25/24 21:43 Mechanical Ventilator+ 06/25/24 20:45 99.1 99.1 Total Intake and Output 06/24/24 06/24/24 06/25/24 15:00 23:00 07:00 Intake Total 380.180 ml 645.552 ml 574.5544 ml Output Total 25 ml 7 ml Balance 380.180 ml 620.552 ml 567.5544 ml medications Current Medications Medications Dose Ordered Sig/Yousif Route Start Time Stop Time Status Last Admin Dose Admin Midazolam HCl 50 ml @ 1 mls/hr Q24H IV 05/25/24 06:30 05/29/24 09:11 5 MLS/HR Atorvastatin Calcium 40 mg HS NG 05/25/24 22:00 06/25/24 21:17 40 MG Ondansetron HCl 4 mg Q4HP PRN IV 05/25/24 10:45 Nitroglycerin 0.4 mg Q5MINP PRN SL 05/25/24 10:45 Hydralazine HCl 10 mg Q6HP PRN IV 05/29/24 16:30 06/13/24 20:02 10 MG Pantoprazole Sodium 40 mg DAILY IV 05/30/24 10:00 06/25/24 11:54 40 MG Bumetanide 2 mg BIDD IV 05/30/24 18:00 06/25/24 17:47 2 MG Aspirin 81 mg DAILY PO 06/10/24 10:00 06/25/24 11:58 81 MG Enteral Nutritional Formula 1,000 ml 40ML/HR GT 06/15/24 09:15 06/18/24 22:35 1,000 ML Propofol 100 ml @ 4.398 mls/ hr [id number] IV 06/15/24 21:00 06/25/24 18:18 13.194 MLS/HR Albumin Human 100 ml @ 100 mls/hr PRN PRN IV 06/16/24 11:00 06/25/24 08:13 100 MLS/HR Sodium Chloride 10 ml QSHIFT@10,22 IV 06/17/24 22:00 06/25/24 21:17 10 ML Fentanyl Citrate 250 ml @ 2.5 mls/hr Q24H IV 06/17/24 17:30 06/25/24 13:55 17.5 MLS/HR Norepinephrine Bitartrate 250 ml @ 3.75 mls/hr Q24H IV 06/18/24 09:45 06/25/24 13:13 7.5 MLS/HR Albuterol 2.5 mg Q6HR NEB 06/20/24 12:00 06/25/24 18:18 2.5 MG Ipratropium [place] 0.5 mg Q6HR NEB 06/20/24 12:00 06/25/24 18:18 0.5 MG Ceftriaxone Sodium/Dextrose 50 ml @ 50 mls/hr BID IV 06/21/24 22:00 06/25/24 21:17 50 MLS/HR objective Gen.: Patient lying in bed in medical ICU. Sedated, on mechanical ventilator. S/p trach Head: Normocephalic, atraumatic. Eyes: PERRLA. Ears: Normal external anatomy. Throat: Endotracheal tube and orogastric tube in place. Neck: Trach in place. Chest: Transmitted breath sounds bilaterally. Decreased air entry bilaterally. No wheezing. Bibasilar crackles. Cardiovascular: Positive S1, positive S2. Regular rate and rhythm. Abdomen: Positive bowel sounds in all 4 quadrants. Soft, nontender, nondistended. : Putnam in place. Normal external genitalia. Rectal: Deferred. Skin: Warm, dry. Intact. Extremities: 2+ radial pulses bilaterally. No lower extremity edema. Neuro: Sedated laboratory and microbiology Laboratory Tests 06/24/24 03:20 Test 06/24/24 03:20 Range/Units Serum Glucose 90 74-106 mg/dL Assessment/Plan Impression: Acute hypoxic respiratory failure On mechanical ventilator Septic shock Elevated troponin Acute kidney injury Lactic acidosis Metabolic acidosis Multifocal pneumonia, likely gram negative Pulmonary edema AE COPD Events: On vent support On AC mode; RR 18, VT 500, PEEP 5, FiO2 30% ABG reviewed, notable for alkalemia S/p trach Trach care PEG tube in place S/p hemodialysis yesterday - 2.4 liters removed. Sedated on Propofol Fentanyl for analgesia On pressors for hemodynamic support Levophed 8 mcg/min Titrate to keep mean arterial pressure greater than 65 mmHg. Continue antibiotics Tube feeds for nutritional support Wound care Monitor hemoglobin Blood pressure control Diurese to euvolemia w/ Bumex Monitor renal function Monitor electrolytes, supplement as necessary Hemodialysis per Nephrology Nephrology recs appreciated. Echo showed EF of 40%. SBT/KAREN Awaiting for mentation to improve. Awaiting LTAC placement Poor prognosis, poor chance of meaningful recovery CT head revealed e/o multiple strokes. Neurology recommendations appreciated Labs and imaging reviewed. Rest of plan as noted below. Plan: s/p intubation on mechanical ventilator. On AC mode; RR 18, VT 500, PEEP 5, FiO2 30% Titrate FIO2 to keep O2 saturation above 90%. VAP bundle. Daily ABG and CXR while intubated Sedated for vent synchrony Continue bronchodilators. Continue antibiotics. F/u cultures. On pressors for hemodynamic support Titrate to keep mean arterial pressure greater than 65 mmHg. Cardiology recs appreciated. Monitor renal function Monitor electrolytes. Supplement as necessary. Monitor ins and outs. Nephrology recs appreciated. IV fluid hydration GI prophylaxis. DVT prophylaxis. Prognosis: Poor given patient's multiple co-morbidities. Condition: Critical Rest of plan per hospitalist and other consultants. A total of 35 minutes of critical care time was spent reviewing the patient record, examining the patient, making a diagnostic and therapeutic plan, discussing this plan with the medical personnel, following up on diagnostic studies and following the patient for clinical stability excluding any and all procedures. At least 50% of this time was spent in direct, [id number] contact. Thank you, MANA[employer]ING [employer], for allowing me to participate in this patient's care. Further recommendations will depend on the patient's clinical course. Please do not hesitate to contact me if you have any questions or concerns. This medical document was created using an electronic medical record system with [employer] system. Although these documentations are being carefully reviewed, there may still be some phonetic and typographical changes. The errors are purely typographical, due to imperfection on the software program, and do not reflect any compromise in the patient's medical care. Dietary Evaluation Review Comments: 1) If GI is accessible consider Jevity 1.2 @ 70ml/hr x 24hr continuous feed goal rate as tolerated 2) If pt remains NPO >7 days consider TPN to meet at least 75% of estimated needs 3) Advance pt diet when medically feasible to a 2gm Sodium diet modified per PROGRAMMER BUSINESS recommendations 4) Continue current plan of care Expected Outcomes/Goals: 1) Pt to receive nutrition support within 7 days of NPO status 2) Pt diet to advance 3) F/U in 2-3 days Plan discussed with: Other (LUZMARIA Magdaleno) Critical Care Time(min): 35 MELODY ELIZABETH MD Jun 25, 2024 23:16
[2024-06-26] VITALS (116 sets, daily range): BP systolic 68–158; BP diastolic 32–88; PULSE 74–96; RESP 16–28; TEMP 98.8–99.9; O2SAT 93–100
[2024-06-26 04:09] LABS: Hemoglobin 8.4 g/dL (12.2-16.2)
[2024-06-26 04:13] LABS: Hematocrit 24.4 % (36.0-46.0); Mean Corpuscular Hemoglobin 31.1 pg (28.0-32.0); Mean Corpuscular Hgb Conc. 34.5 g/dL (32.0-36.0); Mean Corpuscular Volume 90.2 fL (80.0-100.0); Platelet Count (auto) 193 10^3/uL (140-450); Red Cell Distribution Width 16.2 % (11.8-14.3); White Blood Cell 4.7 10^3/uL (4.4-10.8)
[2024-06-26 04:28] LABS: Anion Gap 13 (5-15); Carbon Dioxide 25 mmol/L (20-31); Chloride 99 mmol/L (98-107); Sodium 137 mmol/L (136-145)
[2024-06-26 04:30] LABS: Calcium 8.8 mg/dL (8.7-10.4)
[2024-06-26 04:34] LABS: BUN/Creatinine Ratio 8.8 (10.0-20.0); Glucose 92 mg/dL (74-106)
[2024-06-26 04:35] LABS: Band Neutrophils % (manual) 0; Basophils % (manual) 0 (0.0-2.0); Blast Cells 0; Eosinophils % (manual) 0 (0-7); Metamyelocytes % 0; Myelocytes % 0; Promyelocytes % 0; Reactive Lymphocytes 0
[2024-06-26 04:36] LABS: Blood Urea Nitrogen 36 mg/dL (9-23); Potassium 3.5 mmol/L (3.5-5.1)
--- NOTE | 2024-06-26 05:18 | DVH ---
CHEST RADIOGRAPH Indication: on ventilator Technique: Single frontal view of the chest was obtained Comparison: XY CHEST XRAY 1 VIEW on DOS: 06/24/24, XY CHEST PORTABLE on DOS: 06/23/24, XY CHEST XRAY 1 EW on DOS: 06/22/24 IMPRESSION: The heart is enlarged. Tracheostomy tube and right dialysis catheter appear unchanged. Mild pulmonary vascular congestion with subsegmental atelectasis. Possible right effusion, no significant interval change.
[2024-06-26 05:21] LABS: Lymphocytes % (manual) 43 (10.0-50.0); Monocytes % (manual) 1 (0-12); Platelet Estimate Adequate
--- NOTE | 2024-06-26 12:50 | DVHPN2 ---
Subjective Sedated, and on MV via tracheostomy Reviewed: Care Plan, H&P, Labs, Medications, Previous Orders, Radiology, Other (Consultations) Changes from previous H/P or p: No Changes Objective Vitals Vital Signs Date Time Temp Pulse Resp B/P (MAP) Pulse Ox O2 Delivery O2 Flow Rate FiO2 06/26/24 11:42 82 24 124/72 (89) 100 40 06/26/24 11:32 Mechanical Ventilator+ 06/26/24 04:00 99.3 99.3 Intake/Output Intake and Output 06/26/24 07:00 Intake Total 2126.656 ml Output Total 35 ml Balance 2091.656 ml Intake Oral 520 ml IV Total 1206.656 ml Tube Feeding 400 ml Output Urine Total 35 ml # Bowel Movements 1 General Appearance: Other (Sedated) HEENT: Other (Tracheostomy) Neck: Other (Tracheostomy) Lungs: Other (MV sounds) Chest/Breasts: Other (HD catheter ) Cardiovascular: Regular rate, Normal S1, Normal S2 Abdomen: Other (Decreased bowel sounds; G-tube in place) Genitourinary: Other ([place]) Neuro: Other (Sedated) Skin: Dry, Intact Psych/Mental Status: Other (Sedated) Medications Current Medications Medications Dose Ordered Sig/Yousif Route Start Time Stop Time Status Last Admin Dose Admin Midazolam HCl 50 ml @ 1 mls/hr Q24H IV 05/25/24 06:30 05/29/24 09:11 5 MLS/HR Atorvastatin Calcium 40 mg HS NG 05/25/24 22:00 06/25/24 21:17 40 MG Ondansetron HCl 4 mg Q4HP PRN IV 05/25/24 10:45 Nitroglycerin 0.4 mg Q5MINP PRN SL 05/25/24 10:45 Hydralazine HCl 10 mg Q6HP PRN IV 05/29/24 16:30 06/13/24 20:02 10 MG Pantoprazole Sodium 40 mg DAILY IV 05/30/24 10:00 06/26/24 08:50 40 MG Bumetanide 2 mg BIDD IV 05/30/24 18:00 06/26/24 05:41 2 MG Aspirin 81 mg DAILY PO 06/10/24 10:00 06/26/24 08:49 81 MG Enteral Nutritional Formula 1,000 ml 40ML/HR GT 06/15/24 09:15 06/26/24 05:41 1,000 ML Propofol 100 ml @ 4.398 mls/ hr [id number] IV 06/15/24 21:00 06/26/24 06:52 13.194 MLS/HR Albumin Human 100 ml @ 100 mls/hr PRN PRN IV 06/16/24 11:00 06/25/24 08:13 100 MLS/HR Sodium Chloride 10 ml QSHIFT@10,22 IV 06/17/24 22:00 06/26/24 08:49 10 ML Fentanyl Citrate 250 ml @ 2.5 mls/hr Q24H IV 06/17/24 17:30 06/26/24 03:29 17.5 MLS/HR Norepinephrine Bitartrate 250 ml @ 3.75 mls/hr Q24H IV 06/18/24 09:45 06/26/24 07:53 11.25 MLS/HR Albuterol 2.5 mg Q6HR NEB 06/20/24 12:00 06/26/24 11:42 2.5 MG Ipratropium [place] 0.5 mg Q6HR NEB 06/20/24 12:00 06/26/24 11:42 0.5 MG Ceftriaxone Sodium/Dextrose 50 ml @ 50 mls/hr BID IV 06/21/24 22:00 06/26/24 08:49 50 MLS/HR Laboratory Results Laboratory Tests 06/26/24 03:43 Chemistry Test 06/26/24 03:43 Calcium Level 8.8 mg/dL (8.7-10.4) Urinalysis Test 05/25/24 08:30 05/28/24 01:30 Urine Color Yellow (Yellow) Urine Clarity Clear (Clear) Urine pH 7.5 (5.0-9.0) Urine Specific [place] 1.013 (1.001-1.035) Urine Protein 2+ (Negative) H Urine Ketones Negative (Negative) Urine Blood Negative /uL (Negative) Urine Nitrite Negative (Negative) Urine Bilirubin Negative (Negative) Urine Urobilinogen 8 mg/dL (Negative) H Urine Leukocyte Esterase Negative /uL (Negative) Urine RBC 5 /hpf (0 - 4) Urine WBC 1 /hpf (0 - 5) Urine Squamous Epithelial Cells Few /hpf (<5) Urine Bacteria None seen /hpf (None Seen) Urine Glucose Normal mg/dL (Normal) Urine Creatinine 248.25 mg/dL (30.0-125.0) H Urine Sodium 27 mmol/L (40-220) L Urine Total Protein 293.2 mg/dL (1-14) H Blood Gas Results Test 06/25/24 15:02 Arterial Blood pH 7.524 (7.350-7.450) FiO2 % 40.0 Microbiology Microbiology Date/Time Source Procedure Growth Status 06/09/24 17:21 Urine - [place] Urine Culture - Final Complete 06/07/24 10:50 Blood Blood Culture - Final NO GROWTH AFTER 5 DAYS OF INCUBATION. Complete 05/27/24 08:50 Nose MRSA Screen - Final Complete 05/25/24 06:50 Sputum Gram Stain - Final Complete 05/25/24 06:50 Respiratory Culture - Final Presumptive Tara albicans Complete Assessment/Plan Assessment/Plan Covering Kaleb Mejia GREY PERCHER: #Acute metabolic/toxic encephalopathy in the setting of subcortical parenchymal hemorrhage; currently sedated; neurology is following; reviewed available imaging studies; continue close monitoring #Acute hypoxic respiratory failure due to fungal pneumonia; continue oxygen therapy via mechanical ventilation as per pulmonology; reviewed ABGs and chest x-ray; continue close monitoring #Septic shock with leukocytosis and lactic acidosis; due to Streptococcus pneumoniae bacteremia and fungal pneumonia; continue broad-spectrum IV antibiotics; was on IV antifungal; reviewed available cultures; continue IV vasopressor as indicated; ID is following; continue close monitoring #Acute on chronic systolic heart failure; telemetry; cardiology is following; continue IV diuresis; continue close monitoring #NSTEMI,; unclear if it is type 1 or type 2; telemetry; cardiology is following; continue close monitoring #CHANG superimposed on CKD secondary to ATN; can not rule out vasomotor nephropathy ; anuric; continue hemodialysis as per Nephrology; continue close monitoring #Electrolytes imbalance; colic/replace electrolytes as indicated; nephrology is following; continue close monitoring #Suspected angioedema; continue current medical management; intubated; continue close monitoring #Hypoalbuminemia; continue tube feeding; continue close monitoring #Morbid obesity; to adjust when the patient is awake; continue close monitoring #Normocytic anemia; most likely inflammatory; continue close monitoring 99 minutes of critical care time. Late Entry. This medical document was created using an electronic medical record system with computerized dictation system. Although this document has been carefully reviewed, there might still be some phonetic and typographical errors. These areas are purely typographical due to imperfections of the software programs, and do not reflect any compromise in the patient's medical care. Plan discussed with: Other (Nurse) Date of Service: Jun 26, 2024 Billing Provider: LEEANNA BRICE MD Common Visit Codes: 01221-HCVDFTYY CARE 30-74 MIN (99 minutes), 40055-VERFPCLR CARE-EACH +30MIN LEEANNA BRICE MD Jun 26, 2024 12:50
--- NOTE | 2024-06-26 19:45 | DVHPN2 ---
Consult Progress Note Date Seen: Jun 25, 2024 Subjective Patient reports: Feels better (no fever or chills) Objective vital signs Vital Sign Date Time Temp Pulse Resp B/P (MAP) Pulse Ox O2 Delivery O2 Flow Rate FiO2 06/26/24 18:30 98.8 82 23 121/61 (81) 100 98.8 06/26/24 18:09 30 06/26/24 18:09 Mechanical Ventilator+ Total Intake and Output 06/25/24 06/25/24 06/26/24 15:00 23:00 07:00 Intake Total 436.802 ml 871.802 ml 818.052 ml Output Total 15 ml 20 ml Balance 436.802 ml 856.802 ml 798.052 ml medications Current Medications Medications Dose Ordered Sig/Yousif Route Start Time Stop Time Status Last Admin Dose Admin Midazolam HCl 50 ml @ 1 mls/hr Q24H IV 05/25/24 06:30 05/29/24 09:11 5 MLS/HR Atorvastatin Calcium 40 mg HS NG 05/25/24 22:00 06/25/24 21:17 40 MG Ondansetron HCl 4 mg Q4HP PRN IV 05/25/24 10:45 Nitroglycerin 0.4 mg Q5MINP PRN SL 05/25/24 10:45 Hydralazine HCl 10 mg Q6HP PRN IV 05/29/24 16:30 06/13/24 20:02 10 MG Pantoprazole Sodium 40 mg DAILY IV 05/30/24 10:00 06/26/24 08:50 40 MG Bumetanide 2 mg BIDD IV 05/30/24 18:00 06/26/24 16:57 2 MG Aspirin 81 mg DAILY PO 06/10/24 10:00 06/26/24 08:49 81 MG Enteral Nutritional Formula 1,000 ml 40ML/HR GT 06/15/24 09:15 06/26/24 05:41 1,000 ML Propofol 100 ml @ 4.398 mls/ hr [id number] IV 06/15/24 21:00 06/26/24 14:16 13.194 MLS/HR Albumin Human 100 ml @ 100 mls/hr PRN PRN IV 06/16/24 11:00 06/25/24 08:13 100 MLS/HR Sodium Chloride 10 ml QSHIFT@10,22 IV 06/17/24 22:00 06/26/24 08:49 10 ML Fentanyl Citrate 250 ml @ 2.5 mls/hr Q24H IV 06/17/24 17:30 06/26/24 15:40 17.5 MLS/HR Norepinephrine Bitartrate 250 ml @ 3.75 mls/hr Q24H IV 06/18/24 09:45 06/26/24 07:53 11.25 MLS/HR Albuterol 2.5 mg Q6HR NEB 06/20/24 12:00 06/26/24 18:30 2.5 MG Ipratropium [place] 0.5 mg Q6HR NEB 06/20/24 12:00 06/26/24 18:30 0.5 MG Ceftriaxone Sodium/Dextrose 50 ml @ 50 mls/hr BID IV 06/21/24 22:00 06/26/24 08:49 50 MLS/HR PE: General Appearance: Cooperative. Well developed. Well nourished. NAD. intubated and sedated . morbidly obease Head Exam: Normal inspection Neck Exam: Normal inspection. Non-tender. Normal alignment Pulmonary/Respiratory: Chest non-tender. Clear bilateral breath sounds. minimal vent with traces of pressures and unable to ween off vent due to mentating well of sedation but continues to have signs of agitation Cardiovascular/Chest: No murmurs. No JVD. Abdominal Exam: Normal bowel sounds. Soft. Nontender. No hepatosplenomegaly. No masses Skin: no open wounds or lesions laboratory and microbiology Laboratory Tests 06/26/24 03:43 Test 06/26/24 03:43 Range/Units Serum Glucose 92 74-106 mg/dL Problem List/Assessment/Plan Problem List/Assessment/Plan _ Attending Addendum: 40 year old female with a past medical history of hypertension found to be altered , intubated for worsening acute hypoxic respiratory failurw with unclear ideology . concern for septic picture , patient was needing ventilatory support , vasopressures , steroids . no known history of drungs or smoking . no recent medications. orginally treated with cefapine and doxycycline but eventually put on dialysis and found strep pneumonia in blood , likely lung origin . found to have vegitation in the antrium and anterior mitral leflet which was confirmed on SAMIR as well as mitral regurgitation . MRI of brain concerning for possible small focus of subacute ischemia and the right periventricular region likely consistent with septic embolie . SAMIR showed 3 mm vegitation on the intermitral leftlet . currently on ceftriaxone therapy for endocarditis. negative for any type of hepatitis , urine drig screen was negative . no signs of septic embolism problem list - strep pneumonia , bacteremia , endocarditis , septic shock , septic emboli to brain , pneumonia, mitral valve regurgitation , CHF , acute renal failure on dialysis plan: recommend increasing ceftriaxone to 2 G 2x a day to cover septic emboli of brain as well as endocarditis . patient needs piccline to administer antibiotic . continue regimen for 6 weeks and after 6 weeks patient will need to repeat TTE as outpatient . follow up with infectious disease in 4-[address] of chest to rule out possibility of septic emboli to lungs vs ongoing pneumonia/ para nemonic infusion . defer management of ventilatory and dialysis to pulmonology and nephrology. Have reviewed vital sign s, imagine and labs that are relevant to patients case . Unable to do 12 point system review due to patient being on sedation and not awake 2/4: Difficult to ween off vent and has been having improved airspace opacities on chest xray and since has been started on Ceftriaxone 2 grams Q12 , chest Ct was done and there was no finding to suggest septic emboli or persistent plural effusions that could be keeping patients from being off the ventilator . Continue Ceftriaxone 2 grams every 12 hours for 6 weeks via piccline . prognosis overall is poor , may proceed with tracheostomy . no contraindications from infectious disease of additional infectious work up needed 2/5: underwent dialysis and tolerated procedure without any issues . Patient has a clean tracheostomy placed today without any complications and site appears clean. Patient is currently on FIO2 50% on trach . Continue ceftriaxone 2 grams every 12 hours for 6 weeks . If patients clinical status allows would recommend patient follow up with infectious disease in 6 weeks to repeat echocardiogram as well as determine if additional therapy is needed for endocarditis. Plan: Continue ceftriaxone 2 grams every 12 hours for 6 weeks . If patients clinical status allows would recommend patient follow up with infectious disease in 6 weeks to repeat echocardiogram as well as determine if additional therapy is needed for endocarditis. -continue ceftriaxone 2 g twice daily, recommend for total six weeks for endocarditis. -reviewed CT scan of the chest. Bilateral lung base consolidation/atelectasis -patient underwent PEG tube and dialysis catheter , plan for tracheostomy as per primary care team -on hemodialysis -rest of the medical management as per primary care team and pulmonology nephrology. Plan discussed with: Patient Dietary Evaluation Review Comments: 1) If GI is accessible consider Jevity 1.2 @ 70ml/hr x 24hr continuous feed goal rate as tolerated 2) If pt remains NPO >7 days consider TPN to meet at least 75% of estimated needs 3) Advance pt diet when medically feasible to a 2gm Sodium diet modified per BUSINESS CONTROL MANAGER recommendations 4) Continue current plan of care Expected Outcomes/Goals: 1) Pt to receive nutrition support within 7 days of NPO status 2) Pt diet to advance 3) F/U in 2-3 days JOSH VERNON MD Jun 26, 2024 19:45
--- NOTE | 2024-06-26 21:30 | DVHPN2 ---
Progress Note Date Seen: Jun 26, 2024 Medical Necessity Reason Pt with a Central, PICC or Fol: No The following are medically ne: Central Line, [place] Catheter Reason for putnam catheter: Strict I&O Subjective Patient reports: Other Review of Systems: Deferred Objective vital signs Vital Sign Date Time Temp Pulse Resp B/P (MAP) Pulse Ox O2 Delivery O2 Flow Rate FiO2 06/26/24 20:30 94 23 138/63 (88) 100 40 06/26/24 18:30 98.8 98.8 06/26/24 18:09 Mechanical Ventilator+ Total Intake and Output 06/25/24 06/25/24 06/26/24 15:00 23:00 07:00 Intake Total 436.802 ml 871.802 ml 818.052 ml Output Total 15 ml 20 ml Balance 436.802 ml 856.802 ml 798.052 ml medications Current Medications Medications Dose Ordered Sig/Yousif Route Start Time Stop Time Status Last Admin Dose Admin Midazolam HCl 50 ml @ 1 mls/hr Q24H IV 05/25/24 06:30 05/29/24 09:11 5 MLS/HR Atorvastatin Calcium 40 mg HS NG 05/25/24 22:00 06/26/24 21:08 40 MG Ondansetron HCl 4 mg Q4HP PRN IV 05/25/24 10:45 Nitroglycerin 0.4 mg Q5MINP PRN SL 05/25/24 10:45 Hydralazine HCl 10 mg Q6HP PRN IV 05/29/24 16:30 06/13/24 20:02 10 MG Pantoprazole Sodium 40 mg DAILY IV 05/30/24 10:00 06/26/24 08:50 40 MG Bumetanide 2 mg BIDD IV 05/30/24 18:00 06/26/24 16:57 2 MG Aspirin 81 mg DAILY PO 06/10/24 10:00 06/26/24 08:49 81 MG Enteral Nutritional Formula 1,000 ml 40ML/HR GT 06/15/24 09:15 06/26/24 05:41 1,000 ML Propofol 100 ml @ 4.398 mls/ hr [id number] IV 06/15/24 21:00 06/26/24 19:51 13.194 MLS/HR Albumin Human 100 ml @ 100 mls/hr PRN PRN IV 06/16/24 11:00 06/25/24 08:13 100 MLS/HR Sodium Chloride 10 ml QSHIFT@10,22 IV 06/17/24 22:00 06/26/24 21:10 10 ML Fentanyl Citrate 250 ml @ 2.5 mls/hr Q24H IV 06/17/24 17:30 06/26/24 15:40 17.5 MLS/HR Norepinephrine Bitartrate 250 ml @ 3.75 mls/hr Q24H IV 06/18/24 09:45 06/26/24 07:53 11.25 MLS/HR Albuterol 2.5 mg Q6HR NEB 06/20/24 12:00 06/26/24 18:30 2.5 MG Ipratropium [place] 0.5 mg Q6HR NEB 06/20/24 12:00 06/26/24 18:30 0.5 MG Ceftriaxone Sodium/Dextrose 50 ml @ 50 mls/hr BID IV 06/21/24 22:00 06/26/24 21:09 50 MLS/HR Examination: LUNGS:Abnormal, NEURO:Abnormal laboratory and microbiology Laboratory Tests 06/26/24 03:43 Test 06/26/24 03:43 Range/Units Serum Glucose 92 74-106 mg/dL Microbiology Date/Time Source Procedure Growth Status 06/09/24 17:21 Urine - [place] Urine Culture - Final Complete 06/07/24 10:50 Blood Blood Culture - Final NO GROWTH AFTER 5 DAYS OF INCUBATION. Complete 05/27/24 08:50 Nose MRSA Screen - Final Complete 05/25/24 06:50 Sputum Gram Stain - Final Complete 05/25/24 06:50 Respiratory Culture - Final Presumptive Tara albicans Complete Problem List/Assessment/Plan Problem List/Assessment/Plan Acute kidney injury likely ATN needing HD Unknown recent baseline Severe sepsis Morbid obesity Ventilator-dependent hypoxic respiratory failure recs ,next HD friday Status post tunneled catheter Status post tracheostomy Plan discussed with: Other Dietary Evaluation Review Comments: 1) If GI is accessible consider Jevity 1.2 @ 70ml/hr x 24hr continuous feed goal rate as tolerated 2) If pt remains NPO >7 days consider TPN to meet at least 75% of estimated needs 3) Advance pt diet when medically feasible to a 2gm Sodium diet modified per SUMMER CHILD CAREGIVER recommendations 4) Continue current plan of care Expected Outcomes/Goals: 1) Pt to receive nutrition support within 7 days of NPO status 2) Pt diet to advance 3) F/U in 2-3 days LAN CHOWDHURY MD Jun 26, 2024 21:30
--- NOTE | 2024-06-26 22:39 | DVHPN2 ---
Progress Note - Dictate Date Seen: Jun 26, 2024 Medical Necessity Reason Pt with a Central, PICC or Fol: No The following are medically ne: Central Line, Putnam Catheter Reason for putnam catheter: Strict I&O Subjective Ms. Pandya is a 53 years old right-handed female with a history of morbid obesity, hypertension, the patient was was brought to the [facility] on 05/25/24 with a chief company of altered mental status, respiratory distress. I have seen and examined the patient, I have talked to her nurse. She is responsive to verbal stimuli, but she does not follow or move her extremities. Urine culture, 05/25/2024: Negative Blood culture, 05/25/2024: Streptococcus pneumoniae UDS, 05/25/2024: Negative Urinalysis, 05/25/2024: WBC: 1, urine leukocyte esterase: Negative ABG, 05/25/2024: Metabolic acidosis, hypoxia, 05/26/2024: Metabolic acidosis, hypoxia, 05/27/24: Metabolic acidosis, hypoxia WBC/HB/PLT/MCV, 06/02/2024: 22.4/9/342/89.4 06/09/2024: 19.6/9.4/235/91.6, 06/12/2024: 8.2/9.2/205/90.6 BUN/CR, 05/26/2024: 62/7.01 06/02/2024: 123/6.59, 06/09/2024: 137/6.32, 06/12/2024: 71/4.33 HGB A1c, 05/25/2024: 5.6 Lactic acid, 05/25/2024: 3.6, 4.6, 4.2, 05/26/2024: 3.6 Troponin one high sensitivity, 05/25/2024: 1060, 1354, 1262 TBI/AST/ALT/AP, 05/26/2024: 2/246/167/98, 06/07/2024: 0.9/139/464/93 TG/HDL/LDL/HDL, 05/25/2024: 192/98/40/8 Vitamin B12, 06/02/2024: 836 TSH, 05/25/2024: 0.57 SAMIR, 06/15/2024: Vegetation anterior mitral leaflet Carotid Doppler, 06/15/2024: 1. There is no hemodynamically significant stenosis in the right common carotid and internal carotid arteries. There is elevated peak systolic velocity in the right external carotid artery. 2. Nonvisualization of the left carotid and vertebral arteries secondary to overlying bandage. Consider further evaluation with CTA neck Chest x-ray, 05/25/2024: 1. Distal tip of the endotracheal tube is approximately 5.5 cm above the level of the nik. 2. Poorly visualized enteric tube at its distal aspect. Appears to reach the gastroesophageal junction, although not visualized distal to this point. Correlate with clinical findings. 3. Bilateral airspace opacities and interstitial opacities, may be due to multifocal pneumonia or pulmonary edema in the appropriate clinical setting CT head, 05/25/2024: No gross acute intracranial process CT head, 06/02/24: 1. Interval development of 2 foci of subcortical parenchymal hemorrhage in the left frontal lobe. No mass effect or midline shift. 2. Moderate amount of fluid in the posterior nasopharynx likely related to intubation. Recommend suctioning to prevent aspiration. 3. Small bilateral mastoid effusions. We are in the process of reaching out to the nurse or physician in charge of the patient to convey the findings. CT head, 06/04/2024: Redemonstrated are 2 hyperdense foci in the subcortical left frontal lobe which may represent small foci of parenchymal hemorrhage. There is no significant surrounding edema or associated mass effect CT head, 06/06/2024: The 2 foci of left frontal subcortical hemorrhage are less conspicuous in the current exam partially resolved. No new foci of hemorrhage CT chest, 06/23/2024: 1. Bilateral lower lobe consolidations which may reflect atelectasis or pneumonia. No findings to suggest septic emboli. 2. Cardiomegaly. MR head, 06/15/2024: Extensive periventricular and deep white matter signal abnormality most of which is likely chronic. Possible small focus of subacute ischemia in the right periventricular region. No definite acute intracranial hemorrhage on MRI. Clinical correlation and continued follow-up is recommended. vital signs Vital Sign Date Time Temp Pulse Resp B/P (MAP) Pulse Ox O2 Delivery O2 Flow Rate FiO2 06/26/24 21:59 96 23 144/71 (95) 100 40 06/26/24 20:00 Mechanical Ventilator+ 06/26/24 18:30 98.8 98.8 Total Intake and Output 06/25/24 06/25/24 06/26/24 15:00 23:00 07:00 Intake Total 436.802 ml 871.802 ml 818.052 ml Output Total 15 ml 20 ml Balance 436.802 ml 856.802 ml 798.052 ml medications Current Medications Medications Dose Ordered Sig/Yousif Route Start Time Stop Time Status Last Admin Dose Admin Midazolam HCl 50 ml @ 1 mls/hr Q24H IV 05/25/24 06:30 05/29/24 09:11 5 MLS/HR Atorvastatin Calcium 40 mg HS NG 05/25/24 22:00 06/26/24 21:08 40 MG Ondansetron HCl 4 mg Q4HP PRN IV 05/25/24 10:45 Nitroglycerin 0.4 mg Q5MINP PRN SL 05/25/24 10:45 Hydralazine HCl 10 mg Q6HP PRN IV 05/29/24 16:30 06/13/24 20:02 10 MG Pantoprazole Sodium 40 mg DAILY IV 05/30/24 10:00 06/26/24 08:50 40 MG Bumetanide 2 mg BIDD IV 05/30/24 18:00 06/26/24 16:57 2 MG Aspirin 81 mg DAILY PO 06/10/24 10:00 06/26/24 08:49 81 MG Enteral Nutritional Formula 1,000 ml 40ML/HR GT 06/15/24 09:15 06/26/24 05:41 1,000 ML Propofol 100 ml @ 4.398 mls/ hr [id number] IV 06/15/24 21:00 06/26/24 19:51 13.194 MLS/HR Albumin Human 100 ml @ 100 mls/hr PRN PRN IV 06/16/24 11:00 06/25/24 08:13 100 MLS/HR Sodium Chloride 10 ml QSHIFT@10,22 IV 06/17/24 22:00 06/26/24 21:10 10 ML Fentanyl Citrate 250 ml @ 2.5 mls/hr Q24H IV 06/17/24 17:30 06/26/24 15:40 17.5 MLS/HR Norepinephrine Bitartrate 250 ml @ 3.75 mls/hr Q24H IV 06/18/24 09:45 06/26/24 07:53 11.25 MLS/HR Albuterol 2.5 mg Q6HR NEB 06/20/24 12:00 06/26/24 18:30 2.5 MG Ipratropium [place] 0.5 mg Q6HR NEB 06/20/24 12:00 06/26/24 18:30 0.5 MG Ceftriaxone Sodium/Dextrose 50 ml @ 50 mls/hr BID IV 06/21/24 22:00 06/26/24 21:09 50 MLS/HR objective The patient is well-nourished and well-developed with no distress. Status post tracheostomy Status post PEG feeding tube insertion MENTAL STATUS: Subjective CRANIAL NERVES: Pupils are round and reactive. There are spontaneous conjugated eye movement. No signs of facial weakness. There are gagging or coughing reflexes during oral care. SENSATION: Response to strong painful stimuli MOTOR: Normal tone in the upper and lower extremity. Normal muscle bulk. No fasciculations. No spontaneous movement REFLEXES: Deep tendon reflexes are symmetrical. No pathological reflexes. CEREBELLAR/COORDINATION: Deferred GAIT/STATION: deferred. laboratory and microbiology Laboratory Tests 06/26/24 03:43 Test 06/26/24 03:43 Range/Units Serum Glucose 92 74-106 mg/dL Problem List Altered mental status/Coma Hypoxic encephalopathy secondary to respiratory failure Metabolic encephalopathy secondary to acidosis, sepsis, septic shock, kidney failure Multiple acute/subacute strokes Heart attack Pneumonia Sepsis, septic shock Endocarditis Acute on chronic kidney failure Acute petechial hemorrhage in the left frontal lobe, improving on follow-up CT Anis[place], uncertain clinical significance Assessment/Plan Monitoring Supportive treatment ICU care Follow-up labs Stabilize vitals/pressor drip Respiratory support/vent management Oxygen IV antibiotics GI prophylaxis/Protonix DVT prophylaxis/heparin Nephrology on case Pulmonology on case Infectious diseases on case She is s/p PEG feeding tube insertion and tracheostomy More recommendation per clinical course This medical document was created using an electronic medical record system with [employer] system. Although this document has been carefully reviewed, there may still be some phonetic and typographical errors. These areas are purely typographical due to imperfections of the software programs, and do not reflect any compromise in the patient's medical care Prognosis poor Dietary Evaluation Review Comments: 1) If GI is accessible consider Jevity 1.2 @ 70ml/hr x 24hr continuous feed goal rate as tolerated 2) If pt remains NPO >7 days consider TPN to meet at least 75% of estimated needs 3) Advance pt diet when medically feasible to a 2gm Sodium diet modified per HURRICANE TRACKER recommendations 4) Continue current plan of care Expected Outcomes/Goals: 1) Pt to receive nutrition support within 7 days of NPO status 2) Pt diet to advance 3) F/U in 2-3 days Plan discussed with: Other PILAR HOOD MD Jun 26, 2024 22:39
--- NOTE | 2024-06-26 23:24 | DVHPN2 ---
Progress Note - Dictate Date Seen: Jun 26, 2024 Medical Necessity Reason Pt with a Central, PICC or Fol: No The following are medically ne: Central Line, [place] Catheter Reason for putnam catheter: Strict I&O Subjective Patient seen and examined at bedside. Sedated, on mechanical ventilator. S/p trach Overnight events reviewed. vital signs Vital Sign Date Time Temp Pulse Resp B/P (MAP) Pulse Ox O2 Delivery O2 Flow Rate FiO2 06/26/24 22:45 90 22 153/79 (103) 100 06/26/24 21:59 40 06/26/24 20:15 99.9 99.9 06/26/24 20:00 Mechanical Ventilator+ Total Intake and Output 06/25/24 06/25/24 06/26/24 15:00 23:00 07:00 Intake Total 436.802 ml 871.802 ml 818.052 ml Output Total 15 ml 20 ml Balance 436.802 ml 856.802 ml 798.052 ml medications Current Medications Medications Dose Ordered Sig/Yousif Route Start Time Stop Time Status Last Admin Dose Admin Midazolam HCl 50 ml @ 1 mls/hr Q24H IV 05/25/24 06:30 05/29/24 09:11 5 MLS/HR Atorvastatin Calcium 40 mg HS NG 05/25/24 22:00 06/26/24 21:08 40 MG Ondansetron HCl 4 mg Q4HP PRN IV 05/25/24 10:45 Nitroglycerin 0.4 mg Q5MINP PRN SL 05/25/24 10:45 Hydralazine HCl 10 mg Q6HP PRN IV 05/29/24 16:30 06/13/24 20:02 10 MG Pantoprazole Sodium 40 mg DAILY IV 05/30/24 10:00 06/26/24 08:50 40 MG Bumetanide 2 mg BIDD IV 05/30/24 18:00 06/26/24 16:57 2 MG Aspirin 81 mg DAILY PO 06/10/24 10:00 06/26/24 08:49 81 MG Enteral Nutritional Formula 1,000 ml 40ML/HR GT 06/15/24 09:15 06/26/24 05:41 1,000 ML Propofol 100 ml @ 4.398 mls/ hr [id number] IV 06/15/24 21:00 06/26/24 19:51 13.194 MLS/HR Albumin Human 100 ml @ 100 mls/hr PRN PRN IV 06/16/24 11:00 06/25/24 08:13 100 MLS/HR Sodium Chloride 10 ml QSHIFT@10,22 IV 06/17/24 22:00 06/26/24 21:10 10 ML Fentanyl Citrate 250 ml @ 2.5 mls/hr Q24H IV 06/17/24 17:30 06/26/24 15:40 17.5 MLS/HR Norepinephrine Bitartrate 250 ml @ 3.75 mls/hr Q24H IV 06/18/24 09:45 06/26/24 07:53 11.25 MLS/HR Albuterol 2.5 mg Q6HR NEB 06/20/24 12:00 06/26/24 18:30 2.5 MG Ipratropium [place] 0.5 mg Q6HR NEB 06/20/24 12:00 06/26/24 18:30 0.5 MG Ceftriaxone Sodium/Dextrose 50 ml @ 50 mls/hr BID IV 06/21/24 22:00 06/26/24 21:09 50 MLS/HR objective Gen.: Patient lying in bed in medical ICU. Sedated, on mechanical ventilator. S/p trach Head: Normocephalic, atraumatic. Eyes: PERRLA. Ears: Normal external anatomy. Throat: Endotracheal tube and orogastric tube in place. Neck: Trach in place. Chest: Transmitted breath sounds bilaterally. Decreased air entry bilaterally. No wheezing. Bibasilar crackles. Cardiovascular: Positive S1, positive S2. Regular rate and rhythm. Abdomen: Positive bowel sounds in all 4 quadrants. Soft, nontender, nondistended. : Putnam in place. Normal external genitalia. Rectal: Deferred. Skin: Warm, dry. Intact. Extremities: 2+ radial pulses bilaterally. No lower extremity edema. Neuro: Sedated laboratory and microbiology Laboratory Tests 06/26/24 03:43 Test 06/26/24 03:43 Range/Units Serum Glucose 92 74-106 mg/dL Assessment/Plan Impression: Acute hypoxic respiratory failure On mechanical ventilator Septic shock Elevated troponin Acute kidney injury Lactic acidosis Metabolic acidosis Multifocal pneumonia, likely gram negative Pulmonary edema AE COPD Events: On vent support On AC mode; RR 18, VT 500, PEEP 5, FiO2 40% S/p trach Trach care PEG tube in place Hemodialysis per Nephrology Sedated on Propofol Fentanyl for analgesia On pressors for hemodynamic support Levophed 6 mcg/min Titrate to keep mean arterial pressure greater than 65 mmHg. Improving pressor requirements Continue antibiotics Tube feeds for nutritional support Wound care Monitor hemoglobin Blood pressure control Diurese to euvolemia w/ Bumex Monitor renal function Monitor electrolytes, supplement as necessary Hemodialysis per Nephrology Nephrology recs appreciated. Echo showed EF of 40%. SBT/KAREN Awaiting for mentation to improve. Awaiting LTAC placement Poor prognosis, poor chance of meaningful recovery CT head revealed e/o multiple strokes. Neurology recommendations appreciated Labs and imaging reviewed. Rest of plan as noted below. Plan: s/p intubation on mechanical ventilator. On AC mode; RR 18, VT 500, PEEP 5, FiO2 40% Titrate FIO2 to keep O2 saturation above 90%. VAP bundle. Daily ABG and CXR while intubated Sedated for vent synchrony Continue bronchodilators. Continue antibiotics. F/u cultures. On pressors for hemodynamic support Titrate to keep mean arterial pressure greater than 65 mmHg. Cardiology recs appreciated. Monitor renal function Monitor electrolytes. Supplement as necessary. Monitor ins and outs. Nephrology recs appreciated. IV fluid hydration GI prophylaxis. DVT prophylaxis. Prognosis: Poor given patient's multiple co-morbidities. Condition: Critical Rest of plan per hospitalist and other consultants. A total of 35 minutes of critical care time was spent reviewing the patient record, examining the patient, making a diagnostic and therapeutic plan, discussing this plan with the medical personnel, following up on diagnostic studies and following the patient for clinical stability excluding any and all procedures. At least 50% of this time was spent in direct, uneo-nr-ious contact. Thank you, RESEARCH TEST ENGINE EVALUATOR Viral, for allowing me to participate in this patient's care. Further recommendations will depend on the patient's clinical course. Please do not hesitate to contact me if you have any questions or concerns. This medical document was created using an electronic medical record system with [employer] system. Although these documentations are being carefully reviewed, there may still be some phonetic and typographical changes. The errors are purely typographical, due to imperfection on the software program, and do not reflect any compromise in the patient's medical care. Dietary Evaluation Review Comments: 1) If GI is accessible consider Jevity 1.2 @ 70ml/hr x 24hr continuous feed goal rate as tolerated 2) If pt remains NPO >7 days consider TPN to meet at least 75% of estimated needs 3) Advance pt diet when medically feasible to a 2gm Sodium diet modified per HEALTHCARE TRANSLATOR recommendations 4) Continue current plan of care Expected Outcomes/Goals: 1) Pt to receive nutrition support within 7 days of NPO status 2) Pt diet to advance 3) F/U in 2-3 days Plan discussed with: Other (LUZMARIA Gonzales) Critical Care Time(min): 35 MELODY ELIZABETH MD Jun 26, 2024 23:24
[2024-06-27] VITALS (111 sets, daily range): BP systolic 80–190; BP diastolic 39–102; PULSE 72–98; RESP 11–26; TEMP 98.1–99.9; O2SAT 93–100
[2024-06-27 04:08] LABS: Hematocrit 24.9 % (36.0-46.0); Hemoglobin 8.5 g/dL (12.2-16.2); Mean Corpuscular Hemoglobin 31.1 pg (28.0-32.0); Mean Corpuscular Hgb Conc. 34.3 g/dL (32.0-36.0); Mean Corpuscular Volume 90.8 fL (80.0-100.0); Platelet Count (auto) 177 10^3/uL (140-450); Red Blood Cells 2.75 10^6/uL (4.0-5.20); Red Cell Distribution Width 16.1 % (11.8-14.3); White Blood Cell 4.6 10^3/uL (4.4-10.8)
[2024-06-27 04:25] LABS: Band Neutrophils % (manual) 0; Basophils % (manual) 0 (0.0-2.0); Blast Cells 0; Metamyelocytes % 0; Monocytes % (manual) 0 (0-12); Myelocytes % 0; Promyelocytes % 0; Reactive Lymphocytes 0
[2024-06-27 04:30] LABS: Albumin 3.3 g/dL (3.2-4.8); Alkaline Phosphatase 103 U/L (46-116); Anion Gap 15 (5-15); BUN/Creatinine Ratio 9.4 (10.0-20.0); Calcium 8.8 mg/dL (8.7-10.4); Carbon Dioxide 22 mmol/L (20-31); Chloride 98 mmol/L (98-107)
[2024-06-27 04:31] LABS: Total Protein 6.2 g/dL (5.7-8.2)
[2024-06-27 04:34] LABS: Alanine Aminotransferase 46 U/L (7-40); Bilirubin, Total 0.2 mg/dL (0.2-1.0); Blood Urea Nitrogen 45 mg/dL (9-23); Glucose 110 mg/dL (74-106); Potassium 3.4 mmol/L (3.5-5.1); Sodium 135 mmol/L (136-145)
[2024-06-27 04:44] LABS: Aspartate Aminotransferase 35 U/L (13-40)
[2024-06-27 05:20] LABS: Eosinophils % (manual) 4 (0-7); Lymphocytes % (manual) 33 (10.0-50.0); Platelet Estimate Adequate
[2024-06-27 06:57] LABS: Base Excess -1.7 mmol/L (-2.0-3.0)
[2024-06-27] MEDS: POTASSIUM EFFERVESENT TAB 25 MEQ GT ONE (09:00)
[2024-06-27] MEDS: PROPOFOL 100 ML IV SCH (11:00)
--- NOTE | 2024-06-27 11:06 | DVHPN2 ---
Progress Note Date Seen: Jun 27, 2024 Medical Necessity Reason Pt with a Central, PICC or Fol: No The following are medically ne: Central Line, [place]nam Catheter Reason for putnam catheter: Strict I&O Subjective Patient reports: Other Review of Systems: Deferred Objective vital signs Vital Sign Date Time Temp Pulse Resp B/P (MAP) Pulse Ox O2 Delivery O2 Flow Rate FiO2 06/27/24 10:45 40 06/27/24 10:45 80 06/27/24 10:45 22 100 Mechanical Ventilator+ 06/27/24 09:22 124/67 (86) 06/27/24 04:02 99.8 99.8 Total Intake and Output 06/26/24 06/26/24 06/27/24 15:00 23:00 07:00 Intake Total 343.052 ml 876.802 ml 699.052 ml Output Total 5 ml 50 ml Balance 343.052 ml 871.802 ml 649.052 ml medications Current Medications Medications Dose Ordered Sig/Yousif Route Start Time Stop Time Status Last Admin Dose Admin Midazolam HCl 50 ml @ 1 mls/hr Q24H IV 05/25/24 06:30 05/29/24 09:11 5 MLS/HR Atorvastatin Calcium 40 mg HS NG 05/25/24 22:00 06/26/24 21:08 40 MG Ondansetron HCl 4 mg Q4HP PRN IV 05/25/24 10:45 Nitroglycerin 0.4 mg Q5MINP PRN SL 05/25/24 10:45 Hydralazine HCl 10 mg Q6HP PRN IV 05/29/24 16:30 06/13/24 20:02 10 MG Pantoprazole Sodium 40 mg DAILY IV 05/30/24 10:00 06/27/24 09:01 40 MG Bumetanide 2 mg BIDD IV 05/30/24 18:00 06/26/24 16:57 2 MG Aspirin 81 mg DAILY PO 06/10/24 10:00 06/27/24 09:02 81 MG Enteral Nutritional Formula 1,000 ml 40ML/HR GT 06/15/24 09:15 06/26/24 05:41 1,000 ML Albumin Human 100 ml @ 100 mls/hr PRN PRN IV 06/16/24 11:00 06/25/24 08:13 100 MLS/HR Sodium Chloride 10 ml QSHIFT@10,22 IV 06/17/24 22:00 06/27/24 09:01 10 ML Fentanyl Citrate 250 ml @ 2.5 mls/hr Q24H IV 06/17/24 17:30 06/27/24 04:49 2.5 MLS/HR Norepinephrine Bitartrate 250 ml @ 3.75 mls/hr Q24H IV 06/18/24 09:45 06/27/24 00:47 15 MLS/HR Albuterol 2.5 mg Q6HR NEB 06/20/24 12:00 06/27/24 06:21 2.5 MG Ipratropium [place] 0.5 mg Q6HR NEB 06/20/24 12:00 06/27/24 06:21 0.5 MG Ceftriaxone Sodium/Dextrose 50 ml @ 50 mls/hr BID IV 06/21/24 22:00 06/27/24 09:01 50 MLS/HR Propofol 100 ml @ 4.263 mls/ hr [id number] IV 06/27/24 10:45 UNV laboratory and microbiology Laboratory Tests 06/27/24 03:36 Test 06/27/24 03:36 Range/Units Serum Glucose 110 H 74-106 mg/dL Microbiology Date/Time Source Procedure Growth Status 06/09/24 17:21 Urine - [place] Urine Culture - Final Complete 06/07/24 10:50 Blood Blood Culture - Final NO GROWTH AFTER 5 DAYS OF INCUBATION. Complete 05/27/24 08:50 Nose MRSA Screen - Final Complete 05/25/24 06:50 Sputum Gram Stain - Final Complete 05/25/24 06:50 Respiratory Culture - Final Presumptive Tara albicans Complete Problem List/Assessment/Plan Problem List/Assessment/Plan Acute kidney injury likely ATN needing HD Unknown recent baseline Severe sepsis Morbid obesity Ventilator-dependent hypoxic respiratory failure recs ,next HD friday Status post tunneled catheter Status post tracheostomy Plan discussed with: Other Dietary Evaluation Review Comments: 1) If GI is accessible consider Jevity 1.2 @ 70ml/hr x 24hr continuous feed goal rate as tolerated 2) If pt remains NPO >7 days consider TPN to meet at least 75% of estimated needs 3) Advance pt diet when medically feasible to a 2gm Sodium diet modified per SERVER recommendations 4) Continue current plan of care Expected Outcomes/Goals: 1) Pt to receive nutrition support within 7 days of NPO status 2) Pt diet to advance 3) F/U in 2-3 days LAN CHOWDHURY MD Jun 27, 2024 11:06
--- NOTE | 2024-06-27 20:21 | DVHPN2 ---
Subjective Sedated, and on MV via tracheostomy Reviewed: Care Plan, H&P, Labs, Medications, Previous Orders, Radiology, Other (Consultations) Changes from previous H/P or p: No Changes Objective Vitals Vital Signs Date Time Temp Pulse Resp B/P (MAP) Pulse Ox O2 Delivery O2 Flow Rate FiO2 06/27/24 18:15 99.1 92 23 146/81 (102) 99 99.1 06/27/24 18:09 40 06/27/24 17:49 Mechanical Ventilator+ Intake/Output Intake and Output 06/27/24 07:00 Intake Total 1918.906 ml Output Total 55 ml Balance 1863.906 ml Intake Oral 580 ml IV Total 1082.906 ml Tube Feeding 256 ml Output Urine Total 55 ml # Bowel Movements 1 General Appearance: Other (Sedated) HEENT: Other (Tracheostomy) Neck: Other (Tracheostomy) Lungs: Other (MV sounds) Chest/Breasts: Other (HD catheter ) Cardiovascular: Regular rate, Normal S1, Normal S2 Abdomen: Other (Decreased bowel sounds; G-tube in place) Genitourinary: Other ([place]) Neuro: Other (Sedated) Skin: Dry, Intact Psych/Mental Status: Other (Sedated) Medications Current Medications Medications Dose Ordered Sig/Yousif Route Start Time Stop Time Status Last Admin Dose Admin Midazolam HCl 50 ml @ 1 mls/hr Q24H IV 05/25/24 06:30 05/29/24 09:11 5 MLS/HR Atorvastatin Calcium 40 mg HS NG 05/25/24 22:00 06/26/24 21:08 40 MG Ondansetron HCl 4 mg Q4HP PRN IV 05/25/24 10:45 Nitroglycerin 0.4 mg Q5MINP PRN SL 05/25/24 10:45 Hydralazine HCl 10 mg Q6HP PRN IV 05/29/24 16:30 06/13/24 20:02 10 MG Pantoprazole Sodium 40 mg DAILY IV 05/30/24 10:00 06/27/24 09:01 40 MG Bumetanide 2 mg BIDD IV 05/30/24 18:00 06/27/24 17:33 2 MG Aspirin 81 mg DAILY PO 06/10/24 10:00 06/27/24 09:02 81 MG Enteral Nutritional Formula 1,000 ml 40ML/HR GT 06/15/24 09:15 06/26/24 05:41 1,000 ML Albumin Human 100 ml @ 100 mls/hr PRN PRN IV 06/16/24 11:00 06/25/24 08:13 100 MLS/HR Sodium Chloride 10 ml QSHIFT@10,22 IV 06/17/24 22:00 06/27/24 09:01 10 ML Fentanyl Citrate 250 ml @ 2.5 mls/hr Q24H IV 06/17/24 17:30 06/27/24 04:49 2.5 MLS/HR Norepinephrine Bitartrate 250 ml @ 3.75 mls/hr Q24H IV 06/18/24 09:45 06/27/24 16:07 15 MLS/HR Albuterol 2.5 mg Q6HR NEB 06/20/24 12:00 06/27/24 18:09 2.5 MG Ipratropium [place] 0.5 mg Q6HR NEB 06/20/24 12:00 06/27/24 18:09 0.5 MG Ceftriaxone Sodium/Dextrose 50 ml @ 50 mls/hr BID IV 06/21/24 22:00 06/27/24 09:01 50 MLS/HR Propofol 100 ml @ 4.263 mls/ hr [id number] IV 06/27/24 10:45 06/27/24 15:22 8.526 MLS/HR Laboratory Results Laboratory Tests 06/27/24 03:36 Chemistry Test 06/27/24 03:36 Albumin 3.3 g/dL (3.2-4.8) Calcium Level 8.8 mg/dL (8.7-10.4) Total Protein 6.2 g/dL (5.7-8.2) LFT Test 06/27/24 03:36 Alanine Aminotransferase (ALT) 46 U/L (7-40) H Alkaline Phosphatase 103 U/L (46-116) Aspartate Amino Transferase (AST) 35 U/L (13-40) Total Bilirubin 0.2 mg/dL (0.2-1.0) Urinalysis Test 05/25/24 08:30 05/28/24 01:30 Urine Color Yellow (Yellow) Urine Clarity Clear (Clear) Urine pH 7.5 (5.0-9.0) Urine Specific [place] 1.013 (1.001-1.035) Urine Protein 2+ (Negative) H Urine Ketones Negative (Negative) Urine Blood Negative /uL (Negative) Urine Nitrite Negative (Negative) Urine Bilirubin Negative (Negative) Urine Urobilinogen 8 mg/dL (Negative) H Urine Leukocyte Esterase Negative /uL (Negative) Urine RBC 5 /hpf (0 - 4) Urine WBC 1 /hpf (0 - 5) Urine Squamous Epithelial Cells Few /hpf (<5) Urine Bacteria None seen /hpf (None Seen) Urine Glucose Normal mg/dL (Normal) Urine Creatinine 248.25 mg/dL (30.0-125.0) H Urine Sodium 27 mmol/L (40-220) L Urine Total Protein 293.2 mg/dL (1-14) H Blood Gas Results Test 06/27/24 06:47 Arterial Blood pH 7.428 (7.350-7.450) FiO2 % 40.0 Microbiology Microbiology Date/Time Source Procedure Growth Status 06/09/24 17:21 Urine - [place] Urine Culture - Final Complete 06/07/24 10:50 Blood Blood Culture - Final NO GROWTH AFTER 5 DAYS OF INCUBATION. Complete 05/27/24 08:50 Nose MRSA Screen - Final Complete 05/25/24 06:50 Sputum Gram Stain - Final Complete 05/25/24 06:50 Respiratory Culture - Final Presumptive Tara albicans Complete Labs and/or images reviewed: Labs reviewed by me, Image(s) reviewed by me Assessment/Plan Assessment/Plan Covering Kaleb Mejia NP: #Acute metabolic/toxic encephalopathy in the setting of subcortical parenchymal hemorrhage; currently sedated; neurology is following; reviewed available imaging studies; continue close monitoring #Acute hypoxic respiratory failure due to fungal pneumonia; continue oxygen therapy via mechanical ventilation as per pulmonology; reviewed ABGs and chest x-ray; continue close monitoring #Septic shock with leukocytosis and lactic acidosis; due to Streptococcus pneumoniae bacteremia and fungal pneumonia; continue broad-spectrum IV antibiotics; was on IV antifungal; reviewed available cultures; continue IV vasopressor as indicated; ID is following; continue close monitoring #Acute on chronic systolic heart failure; telemetry; cardiology is following; continue IV diuresis; continue close monitoring #NSTEMI,; unclear if it is type 1 or type 2; telemetry; cardiology is following; continue close monitoring #CHANG superimposed on CKD secondary to ATN; can not rule out vasomotor nephropathy ; anuric; continue hemodialysis as per Nephrology; continue close monitoring #Electrolytes imbalance; colic/replace electrolytes as indicated; nephrology is following; continue close monitoring #Suspected angioedema; continue current medical management; intubated; continue close monitoring #Hypoalbuminemia; continue tube feeding; continue IV albumin;; continue close monitoring #Morbid obesity; to adjust when the patient is awake; continue close monitoring #Normocytic anemia; most likely inflammatory; continue close monitoring 66 minutes of critical care time. Late Entry. This medical document was created using an electronic medical record system with computerized dictation system. Although this document has been carefully reviewed, there might still be some phonetic and typographical errors. These areas are purely typographical due to imperfections of the software programs, and do not reflect any compromise in the patient's medical care. Plan discussed with: Other (Nurse) My Orders Orders - LEEANNA BRICE MD Procedure Category Date Status Time Propofol (Diprivan) PHA 06/27/24 In Process 10:45 Date of Service: Jun 27, 2024 Billing Provider: LEEANNA BRICE MD Common Visit Codes: [id number] CARE 30-74 MIN (66 minutes) LEEANNA BRICE MD Jun 27, 2024 20:21
--- NOTE | 2024-06-27 20:49 | DVHPN2 ---
Progress Note - Dictate Date Seen: Jun 27, 2024 Medical Necessity Reason Pt with a Central, PICC or Fol: No The following are medically ne: Central Line, Putnam Catheter Reason for putnam catheter: Strict I&O Subjective Ms. Pandya is a 53 years old right-handed female with a history of morbid obesity, hypertension, the patient was was brought to the [facility] on 05/25/24 with a chief company of altered mental status, respiratory distress. I have seen and examined the patient, I have talked to her nurse. She is responsive to painful stimuli, Fentanyl 150 mcg/hour, propofol 50 mcg/min, Levo 8 mcg/min Urine culture, 05/25/2024: Negative Blood culture, 05/25/2024: Streptococcus pneumoniae UDS, 05/25/2024: Negative Urinalysis, 05/25/2024: WBC: 1, urine leukocyte esterase: Negative ABG, 05/25/2024: Metabolic acidosis, hypoxia, 05/26/2024: Metabolic acidosis, hypoxia, 05/27/24: Metabolic acidosis, hypoxia WBC/HB/PLT/MCV, 06/02/2024: 22.4/9/342/89.4 06/09/2024: 19.6/9.4/235/91.6, 06/12/2024: 8.2/9.2/205/90.6 BUN/CR, 05/26/2024: 62/7.01 06/02/2024: 123/6.59, 06/09/2024: 137/6.32, 06/12/2024: 71/4.33 HGB A1c, 05/25/2024: 5.6 Lactic acid, 05/25/2024: 3.6, 4.6, 4.2, 05/26/2024: 3.6 Troponin one high sensitivity, 05/25/2024: 1060, 1354, 1262 TBI/AST/ALT/AP, 05/26/2024: 2/246/167/98, 06/07/2024: 0.9/139/464/93 TG/HDL/LDL/HDL, 05/25/2024: 192/98/40/8 Vitamin B12, 06/02/2024: 836 TSH, 05/25/2024: 0.57 SAMIR, 06/15/2024: Vegetation anterior mitral leaflet Carotid Doppler, 06/15/2024: 1. There is no hemodynamically significant stenosis in the right common carotid and internal carotid arteries. There is elevated peak systolic velocity in the right external carotid artery. 2. Nonvisualization of the left carotid and vertebral arteries secondary to overlying bandage. Consider further evaluation with CTA neck Chest x-ray, 05/25/2024: 1. Distal tip of the endotracheal tube is approximately 5.5 cm above the level of the nik. 2. Poorly visualized enteric tube at its distal aspect. Appears to reach the gastroesophageal junction, although not visualized distal to this point. Correlate with clinical findings. 3. Bilateral airspace opacities and interstitial opacities, may be due to multifocal pneumonia or pulmonary edema in the appropriate clinical setting CT head, 05/25/2024: No gross acute intracranial process CT head, 06/02/24: 1. Interval development of 2 foci of subcortical parenchymal hemorrhage in the left frontal lobe. No mass effect or midline shift. 2. Moderate amount of fluid in the posterior nasopharynx likely related to intubation. Recommend suctioning to prevent aspiration. 3. Small bilateral mastoid effusions. We are in the process of reaching out to the nurse or physician in charge of the patient to convey the findings. CT head, 06/04/2024: Redemonstrated are 2 hyperdense foci in the subcortical left frontal lobe which may represent small foci of parenchymal hemorrhage. There is no significant surrounding edema or associated mass effect CT head, 06/06/2024: The 2 foci of left frontal subcortical hemorrhage are less conspicuous in the current exam partially resolved. No new foci of hemorrhage CT chest, 06/23/2024: 1. Bilateral lower lobe consolidations which may reflect atelectasis or pneumonia. No findings to suggest septic emboli. 2. Cardiomegaly. MR head, 06/15/2024: Extensive periventricular and deep white matter signal abnormality most of which is likely chronic. Possible small focus of subacute ischemia in the right periventricular region. No definite acute intracranial hemorrhage on MRI. Clinical correlation and continued follow-up is recommended. vital signs Vital Sign Date Time Temp Pulse Resp B/P (MAP) Pulse Ox O2 Delivery O2 Flow Rate FiO2 06/27/24 20:10 75 19 130/75 (93) 97 40 06/27/24 18:15 99.1 99.1 06/27/24 17:49 Mechanical Ventilator+ Total Intake and Output 06/26/24 06/26/24 06/27/24 15:00 23:00 07:00 Intake Total 343.052 ml 876.802 ml 699.052 ml Output Total 5 ml 50 ml Balance 343.052 ml 871.802 ml 649.052 ml medications Current Medications Medications Dose Ordered Sig/Yousif Route Start Time Stop Time Status Last Admin Dose Admin Midazolam HCl 50 ml @ 1 mls/hr Q24H IV 05/25/24 06:30 05/29/24 09:11 5 MLS/HR Atorvastatin Calcium 40 mg HS NG 05/25/24 22:00 06/26/24 21:08 40 MG Ondansetron HCl 4 mg Q4HP PRN IV 05/25/24 10:45 Nitroglycerin 0.4 mg Q5MINP PRN SL 05/25/24 10:45 Hydralazine HCl 10 mg Q6HP PRN IV 05/29/24 16:30 06/13/24 20:02 10 MG Pantoprazole Sodium 40 mg DAILY IV 05/30/24 10:00 06/27/24 09:01 40 MG Bumetanide 2 mg BIDD IV 05/30/24 18:00 06/27/24 17:33 2 MG Aspirin 81 mg DAILY PO 06/10/24 10:00 06/27/24 09:02 81 MG Enteral Nutritional Formula 1,000 ml 40ML/HR GT 06/15/24 09:15 06/26/24 05:41 1,000 ML Albumin Human 100 ml @ 100 mls/hr PRN PRN IV 06/16/24 11:00 06/25/24 08:13 100 MLS/HR Sodium Chloride 10 ml QSHIFT@10,22 IV 06/17/24 22:00 06/27/24 09:01 10 ML Fentanyl Citrate 250 ml @ 2.5 mls/hr Q24H IV 06/17/24 17:30 06/27/24 04:49 2.5 MLS/HR Norepinephrine Bitartrate 250 ml @ 3.75 mls/hr Q24H IV 06/18/24 09:45 06/27/24 16:07 15 MLS/HR Albuterol 2.5 mg Q6HR NEB 06/20/24 12:00 06/27/24 18:09 2.5 MG Ipratropium [place] 0.5 mg Q6HR NEB 06/20/24 12:00 06/27/24 18:09 0.5 MG Ceftriaxone Sodium/Dextrose 50 ml @ 50 mls/hr BID IV 06/21/24 22:00 06/27/24 09:01 50 MLS/HR Propofol 100 ml @ 4.263 mls/ hr [id number] IV 06/27/24 10:45 06/27/24 15:22 8.526 MLS/HR objective The patient is well-nourished and well-developed with no distress. Status post tracheostomy Status post PEG feeding tube insertion MENTAL STATUS: Subjective CRANIAL NERVES: Pupils are round and reactive. There are spontaneous conjugated eye movement. No signs of facial weakness. There are gagging or coughing reflexes during oral care. SENSATION: Response to strong painful stimuli MOTOR: Normal tone in the upper and lower extremity. Normal muscle bulk. No fasciculations. No spontaneous movement REFLEXES: Deep tendon reflexes are symmetrical. No pathological reflexes. CEREBELLAR/COORDINATION: Deferred GAIT/STATION: deferred. laboratory and microbiology Laboratory Tests 06/27/24 03:36 Test 06/27/24 03:36 Range/Units Serum Glucose 110 H 74-106 mg/dL Problem List Altered mental status/Coma Hypoxic encephalopathy secondary to respiratory failure Metabolic encephalopathy secondary to acidosis, sepsis, septic shock, kidney failure Multiple acute/subacute strokes Heart attack Pneumonia Sepsis, septic shock Endocarditis Acute on chronic kidney failure Acute petechial hemorrhage in the left frontal lobe, improving on follow-up CT Anisocoria, uncertain clinical significance Assessment/Plan Monitoring Supportive treatment ICU care Follow-up labs Stabilize vitals/pressor drip Respiratory support/vent management Oxygen IV antibiotics GI prophylaxis/Protonix DVT prophylaxis/heparin Nephrology on case Pulmonology on case Infectious diseases on case She is s/p PEG feeding tube insertion and tracheostomy More recommendation per clinical course This medical document was created using an electronic medical record system with [employer] system. Although this document has been carefully reviewed, there may still be some phonetic and typographical errors. These areas are purely typographical due to imperfections of the software programs, and do not reflect any compromise in the patient's medical care Prognosis poor Dietary Evaluation Review Comments: 1) If GI is accessible consider Jevity 1.2 @ 70ml/hr x 24hr continuous feed goal rate as tolerated 2) If pt remains NPO >7 days consider TPN to meet at least 75% of estimated needs 3) Advance pt diet when medically feasible to a 2gm Sodium diet modified per DIVISION OPERATIONS MANAGER recommendations 4) Continue current plan of care Expected Outcomes/Goals: 1) Pt to receive nutrition support within 7 days of NPO status 2) Pt diet to advance 3) F/U in 2-3 days Plan discussed with: Other PILAR HOOD MD Jun 27, 2024 20:49
--- NOTE | 2024-06-27 21:11 | DVHPN2 ---
Progress Note - Dictate Date Seen: Jun 27, 2024 Medical Necessity Reason Pt with a Central, PICC or Fol: No The following are medically ne: Central Line, Putnam Catheter Reason for putnam catheter: Strict I&O Subjective Patient seen and examined at bedside. Sedated, on mechanical ventilator. S/p trach Overnight events reviewed. vital signs Vital Sign Date Time Temp Pulse Resp B/P (MAP) Pulse Ox O2 Delivery O2 Flow Rate FiO2 06/27/24 20:56 120/70 06/27/24 20:10 75 19 97 40 06/27/24 18:15 99.1 99.1 06/27/24 17:49 Mechanical Ventilator+ Total Intake and Output 06/26/24 06/26/24 06/27/24 15:00 23:00 07:00 Intake Total 343.052 ml 876.802 ml 699.052 ml Output Total 5 ml 50 ml Balance 343.052 ml 871.802 ml 649.052 ml medications Current Medications Medications Dose Ordered Sig/Yousif Route Start Time Stop Time Status Last Admin Dose Admin Midazolam HCl 50 ml @ 1 mls/hr Q24H IV 05/25/24 06:30 05/29/24 09:11 5 MLS/HR Atorvastatin Calcium 40 mg HS NG 05/25/24 22:00 06/26/24 21:08 40 MG Ondansetron HCl 4 mg Q4HP PRN IV 05/25/24 10:45 Nitroglycerin 0.4 mg Q5MINP PRN SL 05/25/24 10:45 Hydralazine HCl 10 mg Q6HP PRN IV 05/29/24 16:30 06/13/24 20:02 10 MG Pantoprazole Sodium 40 mg DAILY IV 05/30/24 10:00 06/27/24 09:01 40 MG Bumetanide 2 mg BIDD IV 05/30/24 18:00 06/27/24 17:33 2 MG Aspirin 81 mg DAILY PO 06/10/24 10:00 06/27/24 09:02 81 MG Enteral Nutritional Formula 1,000 ml 40ML/HR GT 06/15/24 09:15 06/26/24 05:41 1,000 ML Albumin Human 100 ml @ 100 mls/hr PRN PRN IV 06/16/24 11:00 06/25/24 08:13 100 MLS/HR Sodium Chloride 10 ml QSHIFT@10,22 IV 06/17/24 22:00 06/27/24 09:01 10 ML Fentanyl Citrate 250 ml @ 2.5 mls/hr Q24H IV 06/17/24 17:30 06/27/24 20:56 15 MLS/HR Norepinephrine Bitartrate 250 ml @ 3.75 mls/hr Q24H IV 06/18/24 09:45 06/27/24 16:07 15 MLS/HR Albuterol 2.5 mg Q6HR NEB 06/20/24 12:00 06/27/24 18:09 2.5 MG Ipratropium [place] 0.5 mg Q6HR NEB 06/20/24 12:00 06/27/24 18:09 0.5 MG Ceftriaxone Sodium/Dextrose 50 ml @ 50 mls/hr BID IV 06/21/24 22:00 06/27/24 09:01 50 MLS/HR Propofol 100 ml @ 4.263 mls/ hr [id number] IV 06/27/24 10:45 06/27/24 15:22 8.526 MLS/HR objective Gen.: Patient lying in bed in medical ICU. Sedated, on mechanical ventilator. S/p trach Head: Normocephalic, atraumatic. Eyes: PERRLA. Ears: Normal external anatomy. Throat: Endotracheal tube and orogastric tube in place. Neck: Trach in place. Chest: Transmitted breath sounds bilaterally. Decreased air entry bilaterally. No wheezing. Bibasilar crackles. Cardiovascular: Positive S1, positive S2. Regular rate and rhythm. Abdomen: Positive bowel sounds in all 4 quadrants. Soft, nontender, nondistended. : Putnam in place. Normal external genitalia. Rectal: Deferred. Skin: Warm, dry. Intact. Extremities: 2+ radial pulses bilaterally. No lower extremity edema. Neuro: Sedated laboratory and microbiology Laboratory Tests 06/27/24 03:36 Test 06/27/24 03:36 Range/Units Serum Glucose 110 H 74-106 mg/dL Assessment/Plan Impression: Acute hypoxic respiratory failure On mechanical ventilator Septic shock Elevated troponin Acute kidney injury Lactic acidosis Metabolic acidosis Multifocal pneumonia, likely gram negative Pulmonary edema AE COPD Events: On vent support On AC mode; RR 18, VT 500, PEEP 5, FiO2 40% S/p trach Trach care PEG tube in place Hemodialysis per Nephrology Sedated on Propofol Fentanyl for analgesia On pressors for hemodynamic support Levophed 8 mcg/min Titrate to keep mean arterial pressure greater than 65 mmHg. Increased pressor requirements Continue antibiotics Tube feeds for nutritional support Wound care Monitor hemoglobin Blood pressure control Diurese to euvolemia w/ Bumex Monitor renal function Monitor electrolytes, supplement as necessary Hemodialysis per Nephrology Nephrology recs appreciated. Echo showed EF of 40%. SBT/KAREN Taper sedation as tolerated Plan for CPAP in AM with PS 8, PEEP of 5 Awaiting LTAC placement Poor prognosis, poor chance of meaningful recovery CT head revealed e/o multiple strokes. Neurology recommendations appreciated Labs and imaging reviewed. Rest of plan as noted below. Plan: s/p intubation on mechanical ventilator. On AC mode; RR 18, VT 500, PEEP 5, FiO2 40% Titrate FIO2 to keep O2 saturation above 90%. VAP bundle. Daily ABG and CXR while intubated Sedated for vent synchrony Continue bronchodilators. Continue antibiotics. F/u cultures. On pressors for hemodynamic support Titrate to keep mean arterial pressure greater than 65 mmHg. Cardiology recs appreciated. Monitor renal function Monitor electrolytes. Supplement as necessary. Monitor ins and outs. Nephrology recs appreciated. IV fluid hydration GI prophylaxis. DVT prophylaxis. Prognosis: Poor given patient's multiple co-morbidities. Condition: Critical Rest of plan per hospitalist and other consultants. A total of 35 minutes of critical care time was spent reviewing the patient record, examining the patient, making a diagnostic and therapeutic plan, discussing this plan with the medical personnel, following up on diagnostic studies and following the patient for clinical stability excluding any and all procedures. At least 50% of this time was spent in direct, [id number] contact. Thank you, WAREHOUSE CONSULTANT [employer], for allowing me to participate in this patient's care. Further recommendations will depend on the patient's clinical course. Please do not hesitate to contact me if you have any questions or concerns. This medical document was created using an electronic medical record system with [employer] system. Although these documentations are being carefully reviewed, there may still be some phonetic and typographical changes. The errors are purely typographical, due to imperfection on the software program, and do not reflect any compromise in the patient's medical care. Dietary Evaluation Review Comments: 1) If GI is accessible consider Jevity 1.2 @ 70ml/hr x 24hr continuous feed goal rate as tolerated 2) If pt remains NPO >7 days consider TPN to meet at least 75% of estimated needs 3) Advance pt diet when medically feasible to a 2gm Sodium diet modified per E COMMERCE DIRECTOR recommendations 4) Continue current plan of care Expected Outcomes/Goals: 1) Pt to receive nutrition support within 7 days of NPO status 2) Pt diet to advance 3) F/U in 2-3 days Plan discussed with: Other (LUZMARIA Salinas) Critical Care Time(min): 35 MELODY ELIZABETH MD Jun 27, 2024 21:11
--- NOTE | 2024-06-27 23:23 | DVHPN2 ---
Consult Progress Note Date Seen: Jun 27, 2024 Subjective Patient reports: Other (tolerating trach and waking during sedation trials , tolerating dialysis , no hypotension and remains on 8 mics of levofed ) Objective vital signs Vital Sign Date Time Temp Pulse Resp B/P (MAP) Pulse Ox O2 Delivery O2 Flow Rate FiO2 06/27/24 22:19 72 22 124/65 (84) 100 40 06/27/24 22:00 Mechanical Ventilator+ 06/27/24 20:30 98.1 98.1 Total Intake and Output 06/26/24 06/26/24 06/27/24 15:00 23:00 07:00 Intake Total 343.052 ml 876.802 ml 699.052 ml Output Total 5 ml 50 ml Balance 343.052 ml 871.802 ml 649.052 ml medications Current Medications Medications Dose Ordered Sig/Yousif Route Start Time Stop Time Status Last Admin Dose Admin Midazolam HCl 50 ml @ 1 mls/hr Q24H IV 05/25/24 06:30 05/29/24 09:11 5 MLS/HR Atorvastatin Calcium 40 mg HS NG 05/25/24 22:00 06/27/24 22:28 40 MG Ondansetron HCl 4 mg Q4HP PRN IV 05/25/24 10:45 Nitroglycerin 0.4 mg Q5MINP PRN SL 05/25/24 10:45 Hydralazine HCl 10 mg Q6HP PRN IV 05/29/24 16:30 06/13/24 20:02 10 MG Pantoprazole Sodium 40 mg DAILY IV 05/30/24 10:00 06/27/24 09:01 40 MG Bumetanide 2 mg BIDD IV 05/30/24 18:00 06/27/24 17:33 2 MG Aspirin 81 mg DAILY PO 06/10/24 10:00 06/27/24 09:02 81 MG Enteral Nutritional Formula 1,000 ml 40ML/HR GT 06/15/24 09:15 06/26/24 05:41 1,000 ML Albumin Human 100 ml @ 100 mls/hr PRN PRN IV 06/16/24 11:00 06/25/24 08:13 100 MLS/HR Sodium Chloride 10 ml QSHIFT@10,22 IV 06/17/24 22:00 06/27/24 22:28 10 ML Fentanyl Citrate 250 ml @ 2.5 mls/hr Q24H IV 06/17/24 17:30 06/27/24 20:56 15 MLS/HR Norepinephrine Bitartrate 250 ml @ 3.75 mls/hr Q24H IV 06/18/24 09:45 06/27/24 16:07 15 MLS/HR Albuterol 2.5 mg Q6HR NEB 06/20/24 12:00 06/27/24 18:09 2.5 MG Ipratropium [place] 0.5 mg Q6HR NEB 06/20/24 12:00 06/27/24 18:09 0.5 MG Ceftriaxone Sodium/Dextrose 50 ml @ 50 mls/hr BID IV 06/21/24 22:00 06/27/24 22:52 50 MLS/HR Propofol 100 ml @ 4.263 mls/ hr [id number] IV 06/27/24 10:45 06/27/24 15:22 8.526 MLS/HR General Appearance: Cooperative. Well developed. Well nourished. NAD. intubated and sedated . morbidly obease Head Exam: Normal inspection Neck Exam: Normal inspection. Non-tender. Normal alignment Pulmonary/Respiratory: Chest non-tender. Clear bilateral breath sounds. minimal vent with traces of pressures and unable to ween off vent due to mentating well of sedation but continues to have signs of agitation Cardiovascular/Chest: No murmurs. No JVD. Abdominal Exam: Normal bowel sounds. Soft. Nontender. No hepatosplenomegaly. No masses Skin: no open wounds or lesions Ankle Exam: Lower extremities: laboratory and microbiology Laboratory Tests 06/27/24 03:36 Test 06/27/24 03:36 Range/Units Serum Glucose 110 H 74-106 mg/dL Problem List/Assessment/Plan Problems(with codes): (1) CHF (congestive heart failure) (2) Sepsis (3) Pneumonia (4) Demand ischemia (5) Metabolic encephalopathy Problem List/Assessment/Plan Problem List: 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 concern for septic picture , patient was needing ventilatory support , vasopressures , steroids . no known history of drungs or smoking . no recent medications. orginally treated with cefapine and doxycycline but eventually put on dialysis and found strep pneumonia in blood , likely lung origin . found to have vegitation in the antrium and anterior mitral leflet which was confirmed on SAMIR as well as mitral regurgitation . MRI of brain concerning for possible small focus of subacute ischemia and the right periventricular region likely consistent with septic embolie . SAMIR showed 3 mm vegitation on the intermitral leftlet . currently on ceftriaxone therapy for endocarditis. negative for any type of hepatitis , urine drig screen was negative . no signs of septic embolism problem list - strep pneumonia , bacteremia , endocarditis , septic shock , septic emboli to brain , pneumonia, mitral valve regurgitation , CHF , acute renal failure on dialysis 2/: Difficult to ween off vent and has been having improved airspace opacities on chest xray and since has been started on Ceftriaxone 2 grams Q12 , chest Ct was done and there was no finding to suggest septic emboli or persistent plural effusions that could be keeping patients from being off the ventilator . Continue Ceftriaxone 2 grams every 12 hours for 6 weeks via piccline . prognosis overall is poor , may proceed with tracheostomy . no contraindications from infectious disease of additional infectious work up needed 2: underwent dialysis and tolerated procedure without any issues . Patient has a clean tracheostomy placed today without any complications and site appears clean. Patient is currently on FIO2 50% on trach . Continue ceftriaxone 2 grams every 12 hours for 6 weeks . If patients clinical status allows would recommend patient follow up with infectious disease in 6 weeks to repeat echocardiogram as well as determine if additional therapy is needed for endocarditis. 2: S/P tracheostomy with no signs of intolerance and still vent dependant . plan will be to continue antibiotics for 6 weeks of ceftriaxone for endocarditis and to follow up with infectious disease clinic in 6 weeks 2: remains vent dependant and on 6 of levofed . FIO2 50% and pressure dependant . tolerating tracheostomy and tube feeds via NG tube and underwent dialysis yesterday without any issues . continue antibiotic plan 06/26: chest xray shows mild vascular congestion 06/27: patient is levofed dependant and unclear what is contributing to overall hypotension. spoke with nursing staff to pursue aggressive sedation to see if patient will wake up and if patient is awake would consider cardiology reevaluation for potential cardiothoracic surgery Plan: Continue ceftriaxone 2 grams every 12 hours for 6 weeks . If patients clinical status allows would recommend patient follow up with infectious disease in 6 weeks to repeat echocardiogram as well as determine if additional therapy is needed for endocarditis. -continue ceftriaxone 2 g twice daily, recommend for total six weeks for endocarditis. -reviewed CT scan of the chest. Bilateral lung base consolidation/atelectasis -patient underwent PEG tube and dialysis catheter , plan for tracheostomy as per primary care team -on hemodialysis -rest of the medical management as per primary care team and pulmonology nephrology. Plan discussed with: Other Dietary Evaluation Review Comments: 1) If GI is accessible consider Jevity 1.2 @ 70ml/hr x 24hr continuous feed goal rate as tolerated 2) If pt remains NPO >7 days consider TPN to meet at least 75% of estimated needs 3) Advance pt diet when medically feasible to a 2gm Sodium diet modified per PHYSICAL THERAPY ASSISTANT recommendations 4) Continue current plan of care Expected Outcomes/Goals: 1) Pt to receive nutrition support within 7 days of NPO status 2) Pt diet to advance 3) F/U in 2-3 days JOSH VERNON MD Jun 27, 2024 23:23
--- NOTE | 2024-06-27 23:23 | DVHPN2 ---
Consult Progress Note Date Seen: Jun 26, 2024 Subjective Patient reports: Other (remains intubated , FIO2 40% and levofed dependant , tolerating dialysis , has uvalemic , doesnt appear volume overloaded ) Objective vital signs Vital Sign Date Time Temp Pulse Resp B/P (MAP) Pulse Ox O2 Delivery O2 Flow Rate FiO2 06/27/24 22:19 72 22 124/65 (84) 100 40 06/27/24 22:00 Mechanical Ventilator+ 06/27/24 20:30 98.1 98.1 Total Intake and Output 06/26/24 06/26/24 06/27/24 15:00 23:00 07:00 Intake Total 343.052 ml 876.802 ml 699.052 ml Output Total 5 ml 50 ml Balance 343.052 ml 871.802 ml 649.052 ml medications Current Medications Medications Dose Ordered Sig/Yousif Route Start Time Stop Time Status Last Admin Dose Admin Midazolam HCl 50 ml @ 1 mls/hr Q24H IV 05/25/24 06:30 05/29/24 09:11 5 MLS/HR Atorvastatin Calcium 40 mg HS NG 05/25/24 22:00 06/27/24 22:28 40 MG Ondansetron HCl 4 mg Q4HP PRN IV 05/25/24 10:45 Nitroglycerin 0.4 mg Q5MINP PRN SL 05/25/24 10:45 Hydralazine HCl 10 mg Q6HP PRN IV 05/29/24 16:30 06/13/24 20:02 10 MG Pantoprazole Sodium 40 mg DAILY IV 05/30/24 10:00 06/27/24 09:01 40 MG Bumetanide 2 mg BIDD IV 05/30/24 18:00 06/27/24 17:33 2 MG Aspirin 81 mg DAILY PO 06/10/24 10:00 06/27/24 09:02 81 MG Enteral Nutritional Formula 1,000 ml 40ML/HR GT 06/15/24 09:15 06/26/24 05:41 1,000 ML Albumin Human 100 ml @ 100 mls/hr PRN PRN IV 06/16/24 11:00 06/25/24 08:13 100 MLS/HR Sodium Chloride 10 ml QSHIFT@10,22 IV 06/17/24 22:00 06/27/24 22:28 10 ML Fentanyl Citrate 250 ml @ 2.5 mls/hr Q24H IV 06/17/24 17:30 06/27/24 20:56 15 MLS/HR Norepinephrine Bitartrate 250 ml @ 3.75 mls/hr Q24H IV 06/18/24 09:45 06/27/24 16:07 15 MLS/HR Albuterol 2.5 mg Q6HR NEB 06/20/24 12:00 06/27/24 18:09 2.5 MG Ipratropium [place] 0.5 mg Q6HR NEB 06/20/24 12:00 06/27/24 18:09 0.5 MG Ceftriaxone Sodium/Dextrose 50 ml @ 50 mls/hr BID IV 06/21/24 22:00 06/27/24 22:52 50 MLS/HR Propofol 100 ml @ 4.263 mls/ hr [id number] IV 06/27/24 10:45 06/27/24 15:22 8.526 MLS/HR laboratory and microbiology Laboratory Tests 06/27/24 03:36 Test 06/27/24 03:36 Range/Units Serum Glucose 110 H 74-106 mg/dL Problem List/Assessment/Plan Problems(with codes): (1) Metabolic encephalopathy (2) Demand ischemia (3) Pneumonia (4) Sepsis (5) CHF (congestive heart failure) Problem List/Assessment/Plan Problem List: 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 concern for septic picture , patient was needing ventilatory support , vasopressures , steroids . no known history of drungs or smoking . no recent medications. orginally treated with cefapine and doxycycline but eventually put on dialysis and found strep pneumonia in blood , likely lung origin . found to have vegitation in the antrium and anterior mitral leflet which was confirmed on SAMIR as well as mitral regurgitation . MRI of brain concerning for possible small focus of subacute ischemia and the right periventricular region likely consistent with septic embolie . SAMIR showed 3 mm vegitation on the intermitral leftlet . currently on ceftriaxone therapy for endocarditis. negative for any type of hepatitis , urine drig screen was negative . no signs of septic embolism problem list - strep pneumonia , bacteremia , endocarditis , septic shock , septic emboli to brain , pneumonia, mitral valve regurgitation , CHF , acute renal failure on dialysis 2/4: Difficult to ween off vent and has been having improved airspace opacities on chest xray and since has been started on Ceftriaxone 2 grams Q12 , chest Ct was done and there was no finding to suggest septic emboli or persistent plural effusions that could be keeping patients from being off the ventilator . Continue Ceftriaxone 2 grams every 12 hours for 6 weeks via piccline . prognosis overall is poor , may proceed with tracheostomy . no contraindications from infectious disease of additional infectious work up needed 2: underwent dialysis and tolerated procedure without any issues . Patient has a clean tracheostomy placed today without any complications and site appears clean. Patient is currently on FIO2 50% on trach . Continue ceftriaxone 2 grams every 12 hours for 6 weeks . If patients clinical status allows would recommend patient follow up with infectious disease in 6 weeks to repeat echocardiogram as well as determine if additional therapy is needed for endocarditis. 2: S/P tracheostomy with no signs of intolerance and still vent dependant . plan will be to continue antibiotics for 6 weeks of ceftriaxone for endocarditis and to follow up with infectious disease clinic in 6 weeks 2: remains vent dependant and on 6 of levofed . FIO2 50% and pressure dependant . tolerating tracheostomy and tube feeds via NG tube and underwent dialysis yesterday without any issues . continue antibiotic plan 06/26: chest xray shows mild vascular congestion Plan: Continue ceftriaxone 2 grams every 12 hours for 6 weeks . If patients clinical status allows would recommend patient follow up with infectious disease in 6 weeks to repeat echocardiogram as well as determine if additional therapy is needed for endocarditis. -continue ceftriaxone 2 g twice daily, recommend for total six weeks for endocarditis. -reviewed CT scan of the chest. Bilateral lung base consolidation/atelectasis -patient underwent PEG tube and dialysis catheter , plan for tracheostomy as per primary care team -on hemodialysis -rest of the medical management as per primary care team and pulmonology nephrology. Plan discussed with: Other Dietary Evaluation Review Comments: 1) If GI is accessible consider Jevity 1.2 @ 70ml/hr x 24hr continuous feed goal rate as tolerated 2) If pt remains NPO >7 days consider TPN to meet at least 75% of estimated needs 3) Advance pt diet when medically feasible to a 2gm Sodium diet modified per STUDENT ASSISTANCE COUNSELOR recommendations 4) Continue current plan of care Expected Outcomes/Goals: 1) Pt to receive nutrition support within 7 days of NPO status 2) Pt diet to advance 3) F/U in 2-3 days JOSH VERNON MD Jun 27, 2024 23:23
[2024-06-27] MEDS ORDERED: VANCOMYCIN PER PHARMACY 0 MG IV SCH (23:45)
[2024-06-28] VITALS (94 sets, daily range): BP systolic 74–174; BP diastolic 33–90; PULSE 67–101; RESP 9–31; TEMP 98.2–100.8; O2SAT 93–100
[2024-06-28] MEDS: VANCOMYCIN 1GM/250ML KIT 250 ML IV SCH (02:02)
[2024-06-28 04:40] LABS: White Blood Cell 5.5 10^3/uL (4.4-10.8)
[2024-06-28 04:43] LABS: Hematocrit 24.1 % (36.0-46.0); Hemoglobin 7.9 g/dL (12.2-16.2); Mean Corpuscular Hemoglobin 29.8 pg (28.0-32.0); Mean Corpuscular Volume 90.3 fL (80.0-100.0); Platelet Count (auto) 180 10^3/uL (140-450); Red Blood Cells 2.67 10^6/uL (4.0-5.20); Red Cell Distribution Width 15.9 % (11.8-14.3)
[2024-06-28 04:48] LABS: Band Neutrophils % (manual) 0; Basophils % (manual) 0 (0.0-2.0); Blast Cells 0; Metamyelocytes % 0; Promyelocytes % 0; Reactive Lymphocytes 0
[2024-06-28 05:00] LABS: Albumin 3.3 g/dL (3.2-4.8); Alkaline Phosphatase 110 U/L (46-116); Anion Gap 14 (5-15); Aspartate Aminotransferase 34 U/L (13-40); BUN/Creatinine Ratio 9.3 (10.0-20.0); Calcium 9.9 mg/dL (8.7-10.4); Carbon Dioxide 24 mmol/L (20-31); Potassium 3.6 mmol/L (3.5-5.1); Sodium 136 mmol/L (136-145)
[2024-06-28 05:01] LABS: Total Protein 6.3 g/dL (5.7-8.2)
[2024-06-28 05:05] LABS: Blood Urea Nitrogen 55 mg/dL (9-23); Chloride 98 mmol/L (98-107); Glucose 116 mg/dL (74-106)
[2024-06-28 05:06] LABS: Alanine Aminotransferase 48 U/L (7-40)
[2024-06-28 05:51] LABS: Bilirubin, Total 0.2 mg/dL (0.2-1.0)
[2024-06-28 06:47] LABS: Eosinophils % (manual) 2 (0-7); Lymphocytes % (manual) 16 (10.0-50.0); Monocytes % (manual) 15 (0-12); Myelocytes % 1; Platelet Estimate Adequate
[2024-06-28 06:53] LABS: Base Excess -1.5 mmol/L (-2.0-3.0)
--- NOTE | 2024-06-28 10:16 | DVHPN2 ---
Subjective Patient encephalopathic Reviewed: Care Plan, H&P, Labs, Medications, Previous Orders, Radiology, Other (Consultations) Changes from previous H/P or p: No Changes Objective Vitals Vital Signs Date Time Temp Pulse Resp B/P (MAP) Pulse Ox O2 Delivery O2 Flow Rate FiO2 06/28/24 09:31 99.5 98 13 113/69 (84) 100 211.1 06/28/24 08:45 40 06/28/24 08:00 Mechanical Ventilator+ Intake/Output Intake and Output 06/28/24 07:00 Intake Total 2248.377 ml Output Total 50 ml Balance 2198.377 ml Intake Oral 100 ml IV Total 1468.377 ml Tube Feeding 680 ml Output Urine Total 50 ml # Bowel Movements 1 General Appearance: Other (Sedated) HEENT: Other (Tracheostomy) Neck: Other (Tracheostomy) Lungs: Other (MV sounds) Chest/Breasts: Other (HD catheter ) Cardiovascular: Regular rate, Normal S1, Normal S2 Abdomen: Other (Decreased bowel sounds; G-tube in place) Genitourinary: Other ([place]) Neuro: Other (Sedated) Skin: Dry, Intact Psych/Mental Status: Other (Sedated) Medications Current Medications Medications Dose Ordered Sig/Yousif Route Start Time Stop Time Status Last Admin Dose Admin Midazolam HCl 50 ml @ 1 mls/hr Q24H IV 05/25/24 06:30 05/29/24 09:11 5 MLS/HR Atorvastatin Calcium 40 mg HS NG 05/25/24 22:00 06/27/24 22:28 40 MG Ondansetron HCl 4 mg Q4HP PRN IV 05/25/24 10:45 Nitroglycerin 0.4 mg Q5MINP PRN SL 05/25/24 10:45 Hydralazine HCl 10 mg Q6HP PRN IV 05/29/24 16:30 06/13/24 20:02 10 MG Bumetanide 2 mg BIDD IV 05/30/24 18:00 06/28/24 05:26 2 MG Aspirin 81 mg DAILY PO 06/10/24 10:00 06/27/24 09:02 81 MG Enteral Nutritional Formula 1,000 ml 40ML/HR GT 06/15/24 09:15 06/26/24 05:41 1,000 ML Albumin Human 100 ml @ 100 mls/hr PRN PRN IV 06/16/24 11:00 06/25/24 08:13 100 MLS/HR Sodium Chloride 10 ml QSHIFT@10,22 IV 06/17/24 22:00 06/27/24 22:28 10 ML Fentanyl Citrate 250 ml @ 2.5 mls/hr Q24H IV 06/17/24 17:30 06/27/24 20:56 15 MLS/HR Norepinephrine Bitartrate 250 ml @ 3.75 mls/hr Q24H IV 06/18/24 09:45 06/28/24 06:32 15 MLS/HR Albuterol 2.5 mg Q6HR NEB 06/20/24 12:00 06/28/24 06:19 2.5 MG Ipratropium [place] 0.5 mg Q6HR NEB 06/20/24 12:00 06/28/24 06:19 0.5 MG Ceftriaxone Sodium/Dextrose 50 ml @ 50 mls/hr BID IV 06/21/24 22:00 06/27/24 22:52 50 MLS/HR Propofol 100 ml @ 4.263 mls/ hr [id number] IV 06/27/24 10:45 06/28/24 01:47 12.789 MLS/HR Vancomycin HCl 0 ml @ 0 mls/hr UD IV 06/27/24 23:45 UNV Midodrine 10 mg TID@0600,1200,1800 PO 06/28/24 12:00 UNV Laboratory Results Laboratory Tests 06/28/24 03:50 Chemistry Test 06/28/24 03:50 Albumin 3.3 g/dL (3.2-4.8) Calcium Level 9.9 mg/dL (8.7-10.4) Total Protein 6.3 g/dL (5.7-8.2) LFT Test 06/28/24 03:50 Alanine Aminotransferase (ALT) 48 U/L (7-40) H Alkaline Phosphatase 110 U/L (46-116) Aspartate Amino Transferase (AST) 34 U/L (13-40) Total Bilirubin 0.2 mg/dL (0.2-1.0) Urinalysis Test 05/25/24 08:30 05/28/24 01:30 Urine Color Yellow (Yellow) Urine Clarity Clear (Clear) Urine pH 7.5 (5.0-9.0) Urine Specific [place] 1.013 (1.001-1.035) Urine Protein 2+ (Negative) H Urine Ketones Negative (Negative) Urine Blood Negative /uL (Negative) Urine Nitrite Negative (Negative) Urine Bilirubin Negative (Negative) Urine Urobilinogen 8 mg/dL (Negative) H Urine Leukocyte Esterase Negative /uL (Negative) Urine RBC 5 /hpf (0 - 4) Urine WBC 1 /hpf (0 - 5) Urine Squamous Epithelial Cells Few /hpf (<5) Urine Bacteria None seen /hpf (None Seen) Urine Glucose Normal mg/dL (Normal) Urine Creatinine 248.25 mg/dL (30.0-125.0) H Urine Sodium 27 mmol/L (40-220) L Urine Total Protein 293.2 mg/dL (1-14) H Blood Gas Results Test 06/28/24 06:40 Arterial Blood pH 7.472 (7.350-7.450) FiO2 % 40.0 Microbiology Microbiology Date/Time Source Procedure Growth Status 06/09/24 17:21 Urine - [place] Urine Culture - Final Complete 06/07/24 10:50 Blood Blood Culture - Final NO GROWTH AFTER 5 DAYS OF INCUBATION. Complete 05/27/24 08:50 Nose MRSA Screen - Final Complete 05/25/24 06:50 Sputum Gram Stain - Final Complete 05/25/24 06:50 Respiratory Culture - Final Presumptive Tara albicans Complete Labs and/or images reviewed: Labs reviewed by me, Image(s) reviewed by me Assessment/Plan Assessment/Plan Impression: -severe sepsis with shock , Streptococcus pneumoniae -probable community-acquired pneumonia with Gram-positive cocci -sepsis with Gram-positive cocci -acute hypoxic respiratory failure with mechanical ventilation -obesity -acute kidney injury, anuric -NSTEMI, probably type 2 -hypoalbuminemia -? Angioedema on resolved -respiratory alkalosis -multifocal CVA -endocarditis Plan: Events: No events overnight. Patient had only sedated. Continues to be on norepinephrine drip. Patient also noted to be hypertensive with a systolic blood pressure greater than 150. Instructed nurse to please titrate down norepinephrine drip. Questionable hypotension secondary to hypovolemia. We will discuss with Nephrology. -bronchodilators -antibiotic therapy per Infectious Disease -ventilator settings per sales agent fire insurance -nephrology consultation: HD -PUD, DVT prophylaxis -repeat labs, chest x-ray, ABG in a.m.. -social service consultation for LTAC placement Critical care time spent with patient discussing and formulating plan of care: 40 minutes. This does not include time spent performing procedures. This medical document was created using an electronic medical record system with [employer] dictation system. Although this document has been carefully reviewed, there may still be some phonetic and typographical errors. These areas are purely typographical due to imperfections of the software programs, and do not reflect any compromise in the patient's medical care. Plan discussed with: Patient, Other (RN) My Orders Orders - OMAR PARK NP Procedure Category Date Status Time Communication Order ORDERS 06/28/24 Transmitted 10:01 Midodrine Tablet PHA 06/28/24 Logged (Proamatine Tablet) 12:00 Cpap/Sed Vacation Med ORDERS 06/28/24 Transmitted Weaning 10:01 Date of Service: Jun 28, 2024 Billing Provider: OMAR PARK NP Common Visit Codes: 70784-[id number] CARE 30-74 MIN OMAR PARK NP Jun 28, 2024 10:16
--- NOTE | 2024-06-28 10:44 | DVH ---
EXAM: XR Chest, 1 View CLINICAL INDICATION: Acute hypoxic respiratory failure; MV via tracheostomy. TECHNIQUE: Frontal view of the chest. COMPARISON: XY CHEST XRAY 1 VIEW on DOS: 06/26/24, XY CHEST XRAY 1 VIEW on DOS: 06/24/24, XY CHEST PORT ABLE on DOS: 06/23/24, XY CHEST XRAY 1 VIEW on DOS: 06/22/24, XY CHEST PORTABLE on DOS: 06/20/24 FINDINGS: LUNGS AND PLEURAL SPACES: See below. HEART: Cardiomegaly with mild congestion. MEDIASTINUM: Unremarkable. Normal mediastinal contour. BONES/JOINTS: Unremarkable. No acute fracture. TUBES, LINES AND DEVICES: Stable tubes and lines.. OTHER FINDINGS: . None. . .. IMPRESSION: Cardiomegaly with mild congestion.
--- NOTE | 2024-06-28 11:26 | DVHPN2 ---
Progress Note - Dictate Date Seen: Jun 28, 2024 Medical Necessity Reason Pt with a Central, PICC or Fol: No The following are medically ne: Central Line, Putnam Catheter Reason for putnam catheter: Strict I&O Subjective Ms. Pandya is a 53 years old right-handed female with a history of morbid obesity, hypertension, the patient was was brought to the [facility] on 05/25/24 with a chief company of altered mental status, respiratory distress. I have seen and examined the patient, I have talked to her nurse. She is responsive to light touch with blinking like activity The right pupil still slightly bigger than the left side Urine culture, 05/25/2024: Negative Blood culture, 05/25/2024: Streptococcus pneumoniae UDS, 05/25/2024: Negative Urinalysis, 05/25/2024: WBC: 1, urine leukocyte esterase: Negative ABG, 05/25/2024: Metabolic acidosis, hypoxia, 05/26/2024: Metabolic acidosis, hypoxia, 05/27/24: Metabolic acidosis, hypoxia WBC/HB/PLT/MCV, 06/02/2024: 22.4/9/342/89.4 06/09/2024: 19.6/9.4/235/91.6, 06/12/2024: 8.2/9.2/205/90.6 BUN/CR, 05/26/2024: 62/7.01 06/02/2024: 123/6.59, 06/09/2024: 137/6.32, 06/12/2024: 71/4.33 HGB A1c, 05/25/2024: 5.6 Lactic acid, 05/25/2024: 3.6, 4.6, 4.2, 05/26/2024: 3.6 Troponin one high sensitivity, 05/25/2024: 1060, 1354, 1262 TBI/AST/ALT/AP, 05/26/2024: 2/246/167/98, 06/07/2024: 0.9/139/464/93 TG/HDL/LDL/HDL, 05/25/2024: 192/98/40/8 Vitamin B12, 06/02/2024: 836 TSH, 05/25/2024: 0.57 SAMIR, 06/15/2024: Vegetation anterior mitral leaflet Carotid Doppler, 06/15/2024: 1. There is no hemodynamically significant stenosis in the right common carotid and internal carotid arteries. There is elevated peak systolic velocity in the right external carotid artery. 2. Nonvisualization of the left carotid and vertebral arteries secondary to overlying bandage. Consider further evaluation with CTA neck Chest x-ray, 05/25/2024: 1. Distal tip of the endotracheal tube is approximately 5.5 cm above the level of the nik. 2. Poorly visualized enteric tube at its distal aspect. Appears to reach the gastroesophageal junction, although not visualized distal to this point. Correlate with clinical findings. 3. Bilateral airspace opacities and interstitial opacities, may be due to multifocal pneumonia or pulmonary edema in the appropriate clinical setting CT head, 05/25/2024: No gross acute intracranial process CT head, 06/02/24: 1. Interval development of 2 foci of subcortical parenchymal hemorrhage in the left frontal lobe. No mass effect or midline shift. 2. Moderate amount of fluid in the posterior nasopharynx likely related to intubation. Recommend suctioning to prevent aspiration. 3. Small bilateral mastoid effusions. We are in the process of reaching out to the nurse or physician in charge of the patient to convey the findings. CT head, 06/04/2024: Redemonstrated are 2 hyperdense foci in the subcortical left frontal lobe which may represent small foci of parenchymal hemorrhage. There is no significant surrounding edema or associated mass effect CT head, 06/06/2024: The 2 foci of left frontal subcortical hemorrhage are less conspicuous in the current exam partially resolved. No new foci of hemorrhage CT chest, 06/23/2024: 1. Bilateral lower lobe consolidations which may reflect atelectasis or pneumonia. No findings to suggest septic emboli. 2. Cardiomegaly. MR head, 06/15/2024: Extensive periventricular and deep white matter signal abnormality most of which is likely chronic. Possible small focus of subacute ischemia in the right periventricular region. No definite acute intracranial hemorrhage on MRI. Clinical correlation and continued follow-up is recommended. vital signs Vital Sign Date Time Temp Pulse Resp B/P (MAP) Pulse Ox O2 Delivery O2 Flow Rate FiO2 06/28/24 10:25 93 22 127/73 (91) 94 40 06/28/24 09:31 99.5 211.1 06/28/24 08:00 Mechanical Ventilator+ Total Intake and Output 06/27/24 06/27/24 06/28/24 15:00 23:00 07:00 Intake Total 332.857 ml 794.010 ml 1121.510 ml Output Total 25 ml 25 ml Balance 332.857 ml 769.010 ml 1096.510 ml medications Current Medications Medications Dose Ordered Sig/Yousif Route Start Time Stop Time Status Last Admin Dose Admin Midazolam HCl 50 ml @ 1 mls/hr Q24H IV 05/25/24 06:30 05/29/24 09:11 5 MLS/HR Atorvastatin Calcium 40 mg HS NG 05/25/24 22:00 06/27/24 22:28 40 MG Ondansetron HCl 4 mg Q4HP PRN IV 05/25/24 10:45 Nitroglycerin 0.4 mg Q5MINP PRN SL 05/25/24 10:45 Hydralazine HCl 10 mg Q6HP PRN IV 05/29/24 16:30 06/13/24 20:02 10 MG Bumetanide 2 mg BIDD IV 05/30/24 18:00 06/28/24 05:26 2 MG Aspirin 81 mg DAILY PO 06/10/24 10:00 06/28/24 10:32 81 MG Enteral Nutritional Formula 1,000 ml 40ML/HR GT 06/15/24 09:15 06/26/24 05:41 1,000 ML Albumin Human 100 ml @ 100 mls/hr PRN PRN IV 06/16/24 11:00 06/25/24 08:13 100 MLS/HR Sodium Chloride 10 ml QSHIFT@10,22 IV 06/17/24 22:00 06/28/24 10:33 10 ML Fentanyl Citrate 250 ml @ 2.5 mls/hr Q24H IV 06/17/24 17:30 06/27/24 20:56 15 MLS/HR Norepinephrine Bitartrate 250 ml @ 3.75 mls/hr Q24H IV 06/18/24 09:45 06/28/24 06:32 15 MLS/HR Albuterol 2.5 mg Q6HR NEB 06/20/24 12:00 06/28/24 06:19 2.5 MG Ipratropium [place] 0.5 mg Q6HR NEB 06/20/24 12:00 06/28/24 06:19 0.5 MG Ceftriaxone Sodium/Dextrose 50 ml @ 50 mls/hr BID IV 06/21/24 22:00 06/28/24 10:32 50 MLS/HR Propofol 100 ml @ 4.263 mls/ hr [id number] IV 06/27/24 10:45 06/28/24 01:47 12.789 MLS/HR Vancomycin HCl 0 ml @ 0 mls/hr UD IV 06/27/24 23:45 UNV Midodrine 10 mg TID@0600,1200,1800 PO 06/28/24 12:00 objective The patient is well-nourished and well-developed with no distress. Status post tracheostomy Status post PEG feeding tube insertion MENTAL STATUS: Subjective CRANIAL NERVES: Pupils are round and reactive. There are spontaneous conjugated eye movement. No signs of facial weakness. There are gagging or coughing reflexes during oral care. SENSATION: Response to strong painful stimuli MOTOR: Normal tone in the upper and lower extremity. Normal muscle bulk. No fasciculations. No spontaneous movement REFLEXES: Deep tendon reflexes are symmetrical. No pathological reflexes. CEREBELLAR/COORDINATION: Deferred GAIT/STATION: deferred. laboratory and microbiology Laboratory Tests 06/28/24 03:50 Test 06/28/24 03:50 Range/Units Serum Glucose 116 H 74-106 mg/dL Problem List Altered mental status/Coma Hypoxic encephalopathy secondary to respiratory failure Metabolic encephalopathy secondary to acidosis, sepsis, septic shock, kidney failure Multiple acute/subacute strokes Heart attack Pneumonia Sepsis, septic shock Endocarditis Acute on chronic kidney failure Acute petechial hemorrhage in the left frontal lobe, improving on follow-up CT Anisocoria, uncertain clinical significance Assessment/Plan Monitoring Supportive treatment ICU care CT chest MRA neck Stabilize vitals/pressor drip Respiratory support/vent management Oxygen IV antibiotics GI prophylaxis/Protonix DVT prophylaxis/heparin Nephrology on case Pulmonology on case Infectious diseases on case She is s/p PEG feeding tube insertion and tracheostomy More recommendation per clinical course This medical document was created using an electronic medical record system with [employer] system. Although this document has been carefully reviewed, there may still be some phonetic and typographical errors. These areas are purely typographical due to imperfections of the software programs, and do not reflect any compromise in the patient's medical care Prognosis poor Dietary Evaluation Review Comments: 1) If GI is accessible consider Jevity 1.2 @ 70ml/hr x 24hr continuous feed goal rate as tolerated 2) If pt remains NPO >7 days consider TPN to meet at least 75% of estimated needs 3) Advance pt diet when medically feasible to a 2gm Sodium diet modified per METROPOLITAN EDITOR recommendations 4) Continue current plan of care Expected Outcomes/Goals: 1) Pt to receive nutrition support within 7 days of NPO status 2) Pt diet to advance 3) F/U in 2-3 days Plan discussed with: Other PILAR HOOD MD Jun 28, 2024 11:26
[2024-06-28] MEDS ORDERED: LORazepam 2MG/ML-1ML VIAL IV PRN (11:30)
--- NOTE | 2024-06-28 11:37 | DVHPN2 ---
Progress Note Date Seen: Jun 28, 2024 Medical Necessity Reason Pt with a Central, PICC or Fol: No The following are medically ne: Central Line, [place] Catheter Reason for putnam catheter: Strict I&O Subjective Review of Systems: RESPIRATORY:Abnormal Other Systems: Patient seen and examined by myself today in follow-up, patient remained intubated on ventilator Patient examined hemodialysis, blood pressure stable Objective vital signs Vital Sign Date Time Temp Pulse Resp B/P (MAP) Pulse Ox O2 Delivery O2 Flow Rate FiO2 06/28/24 10:32 127/73 06/28/24 10:25 93 22 94 40 06/28/24 09:31 99.5 211.1 06/28/24 08:00 Mechanical Ventilator+ Total Intake and Output 06/27/24 06/27/24 06/28/24 15:00 23:00 07:00 Intake Total 332.857 ml 794.010 ml 1152.536 ml Output Total 25 ml 25 ml Balance 332.857 ml 769.010 ml 1127.536 ml medications Current Medications Medications Dose Ordered Sig/Yousif Route Start Time Stop Time Status Last Admin Dose Admin Midazolam HCl 50 ml @ 1 mls/hr Q24H IV 05/25/24 06:30 05/29/24 09:11 5 MLS/HR Atorvastatin Calcium 40 mg HS NG 05/25/24 22:00 06/27/24 22:28 40 MG Ondansetron HCl 4 mg Q4HP PRN IV 05/25/24 10:45 Nitroglycerin 0.4 mg Q5MINP PRN SL 05/25/24 10:45 Hydralazine HCl 10 mg Q6HP PRN IV 05/29/24 16:30 06/13/24 20:02 10 MG Bumetanide 2 mg BIDD IV 05/30/24 18:00 06/28/24 05:26 2 MG Aspirin 81 mg DAILY PO 06/10/24 10:00 06/28/24 10:32 81 MG Enteral Nutritional Formula 1,000 ml 40ML/HR GT 06/15/24 09:15 06/26/24 05:41 1,000 ML Albumin Human 100 ml @ 100 mls/hr PRN PRN IV 06/16/24 11:00 06/25/24 08:13 100 MLS/HR Sodium Chloride 10 ml QSHIFT@10,22 IV 06/17/24 22:00 06/28/24 10:33 10 ML Fentanyl Citrate 250 ml @ 2.5 mls/hr Q24H IV 06/17/24 17:30 06/27/24 20:56 15 MLS/HR Norepinephrine Bitartrate 250 ml @ 3.75 mls/hr Q24H IV 06/18/24 09:45 06/28/24 06:32 15 MLS/HR Albuterol 2.5 mg Q6HR NEB 06/20/24 12:00 06/28/24 06:19 2.5 MG Ipratropium [place] 0.5 mg Q6HR NEB 06/20/24 12:00 06/28/24 06:19 0.5 MG Ceftriaxone Sodium/Dextrose 50 ml @ 50 mls/hr BID IV 06/21/24 22:00 06/28/24 10:32 50 MLS/HR Propofol 100 ml @ 4.263 mls/ hr [id number] IV 06/27/24 10:45 06/28/24 01:47 12.789 MLS/HR Vancomycin HCl 0 ml @ 0 mls/hr UD IV 06/27/24 23:45 UNV Midodrine 10 mg TID@0600,1200,1800 PO 06/28/24 12:00 Lorazepam 1 mg ONCE PRN IV 06/28/24 11:30 UNV Examination: LUNGS:Normal, CVS:Normal, MSK:Normal laboratory and microbiology Laboratory Tests 06/28/24 03:50 Test 06/28/24 03:50 Range/Units Serum Glucose 116 H 74-106 mg/dL Microbiology Date/Time Source Procedure Growth Status 06/09/24 17:21 Urine - [place] Urine Culture - Final Complete 06/07/24 10:50 Blood Blood Culture - Final NO GROWTH AFTER 5 DAYS OF INCUBATION. Complete 05/27/24 08:50 Nose MRSA Screen - Final Complete 05/25/24 06:50 Sputum Gram Stain - Final Complete 05/25/24 06:50 Respiratory Culture - Final Presumptive Tara albicans Complete Problem List/Assessment/Plan Problem List/Assessment/Plan CHANG superimposed on CKD secondary to ATN needing HD Acute respiratory failure, intubated on ventilator Septic shock CHF, Ef 40% Morbid obesity Anemia of CKD Hypokalemia REC: Continue with UF 2 L as tolerated Epogen 25129 IV post hemodialysis IV pressors for BP support Albumin 25% p.r.n. hemodialysis IV Abx KCL replacement Will continue to follow Plan discussed with: Other (Nurse) Dietary Evaluation Review Comments: 1) If GI is accessible consider Jevity 1.2 @ 70ml/hr x 24hr continuous feed goal rate as tolerated 2) If pt remains NPO >7 days consider TPN to meet at least 75% of estimated needs 3) Advance pt diet when medically feasible to a 2gm Sodium diet modified per PHOTOCOMPOSING MACHINE OPERATOR recommendations 4) Continue current plan of care Expected Outcomes/Goals: 1) Pt to receive nutrition support within 7 days of NPO status 2) Pt diet to advance 3) F/U in 2-3 days MARIELA JONES MD Jun 28, 2024 11:37
[2024-06-28] MEDS: MIDODRINE HCL 10 MG TAB PO SCH (13:29)
--- NOTE | 2024-06-28 15:13 | DVH ---
MRA HEAD WITHOUT CONTRAST CLINICAL HISTORY: Alvina syndrome TECHNIQUE: MRA of the brain performed using 2D [id number] sequences. Comparison: MRI brain 06/15/2024. FINDINGS: There is asymmetrically decreased flow signal in the right M3 and M4 MCA arterial branches in compar deandre to the left. The proximal M1 and M2 MCA arteries appear symmetric in size and demonstrate approp riate flow signal. Remaining visualized intracranial arteries demonstrate appropriate flow signal without evidence of st enosis or occlusion. There is no evidence of intracranial aneurysm or arteriovenous malformation. IMPRESSION: 1. Asymmetrically decreased flow signal in the right M3 and M4 arterial branches in comparison to th e left. Distal MCA arterial stenosis/ occlusion is not excluded. Further evaluation with CT angiograp hy is recommended if not already performed. HS:Y
--- NOTE | 2024-06-28 15:19 | DVH ---
Procedure: CT CHEST WITHOUT CONTRAST Reason for study/Clinical History: Alvina syndrome Comparison Study:06/23/24 Exam Date: 06/28/2024 02:52 PM TECHNIQUE: Multidetector CT of the chest was performed from the lung apices to the upper abdomen with out the use of intravenous contract. Axial, coronal and sagittal multiplanar reformats were performed . Radiation Dose Information: CT Dose: CTDI volume is 29 mGy. Dose-length product is 969 mGy*cm The dose indicators for CT are the volume Computed Tomography (CT) Dose Index (CTDIvol) and the Dose Length Product (DLP), and are measured in units of mGy and mGy-cm, respectively. These indicators are not patient dose, but values generated from the CT scanner acquisition factors. The report includes radiation exposure data for exposures received during this examination. FINDINGS: There is a tracheostomy tube present. There is also a central line with its tip in the low superior v fredis cava Lower neck: Normal thyroid. Lungs: Bilateral lower lobe consolidations. Heart/Vascular Structures: Heart size enlarged. No pericardial effusion. Lymph Nodes: No adenopathy Pleura: Small pleural effusion on the left. Musculoskeletal: No acute osseous abnormality. Soft tissues: Normal. Upper abdomen: Limited portions of the upper abdomen are unremarkable. IMPRESSION: 1. Bilateral lower lobe infiltrates slightly worse than on previous study. There is now a small left pleural effusion Radiation optimization: All CT scans at this facility use at least one of these dose optimization cierra hniques: automated exposure control mA and/or kV adjustment per patient size (includes targeted exam s where dose is matched to clinical indication) or iterative reconstruction.
[2024-06-28] MEDS: ACETAMINOPHEN 325 MG TAB PO PRN (18:21)
--- NOTE | 2024-06-28 23:31 | DVHPN2 ---
Consult Progress Note Date Seen: Jun 28, 2024 Subjective Patient reports: Other (remains on FIO2 40% , on trach , being tested for CPAP trials and not tolerating it due to agitation , sedations trials havent really been done ) Objective vital signs Vital Sign Date Time Temp Pulse Resp B/P (MAP) Pulse Ox O2 Delivery O2 Flow Rate FiO2 06/28/24 22:15 87 20 146/89 (108) 100 40 06/28/24 19:21 99.4 06/28/24 18:15 Mechanical Ventilator+ Total Intake and Output 06/27/24 06/27/24 06/28/24 15:00 23:00 07:00 Intake Total 332.857 ml 794.010 ml 1152.536 ml Output Total 25 ml 25 ml Balance 332.857 ml 769.010 ml 1127.536 ml medications Current Medications Medications Dose Ordered Sig/Yousif Route Start Time Stop Time Status Last Admin Dose Admin Midazolam HCl 50 ml @ 1 mls/hr Q24H IV 05/25/24 06:30 05/29/24 09:11 5 MLS/HR Atorvastatin Calcium 40 mg HS NG 05/25/24 22:00 06/28/24 21:25 40 MG Ondansetron HCl 4 mg Q4HP PRN IV 05/25/24 10:45 Nitroglycerin 0.4 mg Q5MINP PRN SL 05/25/24 10:45 Bumetanide 2 mg BIDD IV 05/30/24 18:00 06/28/24 17:13 2 MG Aspirin 81 mg DAILY PO 06/10/24 10:00 06/28/24 10:32 81 MG Enteral Nutritional Formula 1,000 ml 40ML/HR GT 06/15/24 09:15 06/28/24 18:22 1,000 ML Albumin Human 100 ml @ 100 mls/hr PRN PRN IV 06/16/24 11:00 06/25/24 08:13 100 MLS/HR Sodium Chloride 10 ml QSHIFT@10, IV 06/17/24 22:00 06/28/24 21:25 10 ML Fentanyl Citrate 250 ml @ 2.5 mls/hr Q24H IV 06/17/24 17:30 06/28/24 18:41 7.5 MLS/HR Norepinephrine Bitartrate 250 ml @ 3.75 mls/hr Q24H IV 06/18/24 09:45 06/28/24 06:32 15 MLS/HR Albuterol 2.5 mg Q6HR NEB 06/20/24 12:00 06/28/24 18:14 2.5 MG Ipratropium [place] 0.5 mg Q6HR NEB 06/20/24 12:00 06/28/24 18:14 0.5 MG Ceftriaxone Sodium/Dextrose 50 ml @ 50 mls/hr BID IV 06/21/24 22:00 06/28/24 21:25 50 MLS/HR Propofol 100 ml @ 4.263 mls/ hr [id number] IV 06/27/24 10:45 06/28/24 13:29 4.263 MLS/HR Vancomycin HCl 0 ml @ 0 mls/hr UD IV 06/27/24 23:45 Cancel Midodrine 10 mg TID@0600,1200,1800 PO 06/28/24 12:00 06/28/24 17:13 10 MG Lorazepam 1 mg ONCE PRN IV 06/28/24 11:30 07/03/24 11:29 Dexmedetomidine HCl 400 mcg/ Dextrose 100 ml @ 7.145 mls/ hr Q14H IV 06/28/24 15:00 Acetaminophen 650 mg Q6HP PRN PO 06/28/24 17:45 06/28/24 18:21 650 MG General Appearance: Cooperative. Well developed. Well nourished. NAD. intubated and sedated . morbidly obease Head Exam: Normal inspection Neck Exam: Normal inspection. Non-tender. Normal alignment Pulmonary/Respiratory: Chest non-tender. Clear bilateral breath sounds. minimal vent with traces of pressures and unable to ween off vent due to mentating well of sedation but continues to have signs of agitation Cardiovascular/Chest: No murmurs. No JVD. Abdominal Exam: Normal bowel sounds. Soft. Nontender. No hepatosplenomegaly. 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 concern for septic picture , patient was needing ventilatory support , vasopressures , steroids . no known history of drungs or smoking . no recent medications. orginally treated with cefapine and doxycycline but eventually put on dialysis and found strep pneumonia in blood , likely lung origin . found to have vegitation in the antrium and anterior mitral leflet which was confirmed on SAMIR as well as mitral regurgitation . MRI of brain concerning for possible small focus of subacute ischemia and the right periventricular region likely consistent with septic embolie . SAMIR showed 3 mm vegitation on the intermitral leftlet . currently on ceftriaxone therapy for endocarditis. negative for any type of hepatitis , urine drig screen was negative . no signs of septic embolism problem list - strep pneumonia , bacteremia , endocarditis , septic shock , septic emboli to brain , pneumonia, mitral valve regurgitation , CHF , acute renal failure on dialysis 2/: Difficult to ween off vent and has been having improved airspace opacities on chest xray and since has been started on Ceftriaxone 2 grams Q12 , chest Ct was done and there was no finding to suggest septic emboli or persistent plural effusions that could be keeping patients from being off the ventilator . Continue Ceftriaxone 2 grams every 12 hours for 6 weeks via piccline . prognosis overall is poor , may proceed with tracheostomy . no contraindications from infectious disease of additional infectious work up needed 2: underwent dialysis and tolerated procedure without any issues . Patient has a clean tracheostomy placed today without any complications and site appears clean. Patient is currently on FIO2 50% on trach . Continue ceftriaxone 2 grams every 12 hours for 6 weeks . If patients clinical status allows would recommend patient follow up with infectious disease in 6 weeks to repeat echocardiogram as well as determine if additional therapy is needed for endocarditis. 2/: S/P tracheostomy with no signs of intolerance and still vent dependant . plan will be to continue antibiotics for 6 weeks of ceftriaxone for endocarditis and to follow up with infectious disease clinic in 6 weeks 06/25: remains vent dependant and on 6 of levofed . FIO2 50% and pressure dependant . tolerating tracheostomy and tube feeds via NG tube and underwent dialysis yesterday without any issues . continue antibiotic plan 06/26: chest xray shows mild vascular congestion 06/27: patient is levofed dependant and unclear what is contributing to overall hypotension. spoke with nursing staff to pursue aggressive sedation to see if patient will wake up and if patient is awake would consider cardiology reevaluation for potential cardiothoracic surgery 06/28: elevated temps as high as 100.2 , possibly related to agitation during CPAP Plan: - recommend aggressive weaning sedation to see if patient will awake and if patient is a candidate for cardiothoracic intervention of endocarditis as patient will likely be levofed dependant so long as patient has severe heart failure Continue ceftriaxone 2 grams every 12 hours for 6 weeks . If patients clinical status allows would recommend patient follow up with infectious disease in 6 weeks to repeat echocardiogram as well as determine if additional therapy is needed for endocarditis. -continue ceftriaxone 2 g twice daily, recommend for total six weeks for endocarditis. -reviewed CT scan of the chest. Bilateral lung base consolidation/atelectasis -patient underwent PEG tube and dialysis catheter , plan for tracheostomy as per primary care team -on hemodialysis -rest of the medical management as per primary care team and pulmonology nephrology. Plan discussed with: Other Dietary Evaluation Review Comments: 1) If GI is accessible consider Jevity 1.2 @ 70ml/hr x 24hr continuous feed goal rate as tolerated 2) If pt remains NPO >7 days consider TPN to meet at least 75% of estimated needs 3) Advance pt diet when medically feasible to a 2gm Sodium diet modified per ENDOSCOPY TECHNICIAN recommendations 4) Continue current plan of care Expected Outcomes/Goals: 1) Pt to receive nutrition support within 7 days of NPO status 2) Pt diet to advance 3) F/U in 2-3 days JOSH VERNON MD Jun 28, 2024 23:31
[2024-06-29] VITALS (94 sets, daily range): BP systolic 81–187; BP diastolic 44–92; PULSE 74–101; RESP 11–29; TEMP 98.6–100.2; O2SAT 100
[2024-06-29 04:24] LABS: Hemoglobin 7.9 g/dL (12.2-16.2); White Blood Cell 6.6 10^3/uL (4.4-10.8)
[2024-06-29 04:34] LABS: Hematocrit 23.6 % (36.0-46.0); Mean Corpuscular Hemoglobin 30.2 pg (28.0-32.0); Mean Corpuscular Hgb Conc. 33.6 g/dL (32.0-36.0); Mean Corpuscular Volume 90.1 fL (80.0-100.0); Platelet Count (auto) 177 10^3/uL (140-450); Red Blood Cells 2.62 10^6/uL (4.0-5.20); Red Cell Distribution Width 16.1 % (11.8-14.3)
[2024-06-29 04:57] LABS: Band Neutrophils % (manual) 0; Basophils % (manual) 0 (0.0-2.0); Blast Cells 0; Metamyelocytes % 0; Myelocytes % 0; Promyelocytes % 0; Reactive Lymphocytes 0
[2024-06-29 05:53] LABS: Eosinophils % (manual) 7 (0-7); Lymphocytes % (manual) 21 (10.0-50.0); Monocytes % (manual) 10 (0-12); Platelet Estimate Adequate
[2024-06-29] MEDS: NOREPINEPHRINE 8 MG/250ML KIT 250 ML IV SCH (06:05)
[2024-06-29 07:52] LABS: Albumin 3.4 g/dL (3.2-4.8); Alkaline Phosphatase 110 U/L (46-116); Anion Gap 14 (5-15); BUN/Creatinine Ratio 7.8 (10.0-20.0); Calcium 9.9 mg/dL (8.7-10.4); Carbon Dioxide 24 mmol/L (20-31); Chloride 99 mmol/L (98-107); Glucose 89 mg/dL (74-106); Potassium 4.1 mmol/L (3.5-5.1); Sodium 137 mmol/L (136-145); Total Protein 6.4 g/dL (5.7-8.2)
[2024-06-29 07:59] LABS: Alanine Aminotransferase 49 U/L (7-40); Aspartate Aminotransferase 41 U/L (13-40); Bilirubin, Total 0.3 mg/dL (0.2-1.0); Blood Urea Nitrogen 36 mg/dL (9-23)
[2024-06-29 08:28] LABS: Base Excess 0.7 mmol/L (-2.0-3.0)
--- NOTE | 2024-06-29 09:06 | DVHPN2 ---
Subjective Patient encephalopathic Reviewed: Care Plan, H&P, Labs, Medications, Previous Orders, Radiology, Other (Consultations) Changes from previous H/P or p: No Changes General: Per HPI Objective Vitals Vital Signs Date Time Temp Pulse Resp B/P (MAP) Pulse Ox O2 Delivery O2 Flow Rate FiO2 06/29/24 08:52 84 23 161/69 (99) 100 40 06/29/24 08:30 99.0 210.2 06/29/24 08:00 Mechanical Ventilator+ Intake/Output Intake and Output 06/29/24 07:00 Intake Total 833.028 ml Output Total 75 ml Balance 758.028 ml Intake Oral 150 ml IV Total 608.028 ml Tube Feeding 75 ml Output Urine Total 75 ml # Bowel Movements 2 General Appearance: Other (Sedated) HEENT: Other (Tracheostomy) Neck: Other (Tracheostomy) Lungs: Other (MV sounds) Chest/Breasts: Other (HD catheter ) Cardiovascular: Regular rate, Normal S1, Normal S2 Abdomen: Other (Decreased bowel sounds; G-tube in place) Genitourinary: Other ([place]) Neuro: Other (Sedated) Skin: Dry, Intact Psych/Mental Status: Other (Sedated) Medications Current Medications Medications Dose Ordered Sig/Yousif Route Start Time Stop Time Status Last Admin Dose Admin Midazolam HCl 50 ml @ 1 mls/hr Q24H IV 05/25/24 06:30 05/29/24 09:11 5 MLS/HR Atorvastatin Calcium 40 mg HS NG 05/25/24 22:00 06/28/24 21:25 40 MG Ondansetron HCl 4 mg Q4HP PRN IV 05/25/24 10:45 Nitroglycerin 0.4 mg Q5MINP PRN SL 05/25/24 10:45 Bumetanide 2 mg BIDD IV 05/30/24 18:00 06/29/24 05:47 2 MG Aspirin 81 mg DAILY PO 06/10/24 10:00 06/28/24 10:32 81 MG Enteral Nutritional Formula 1,000 ml 40ML/HR GT 06/15/24 09:15 06/28/24 18:22 1,000 ML Albumin Human 100 ml @ 100 mls/hr PRN PRN IV 06/16/24 11:00 06/25/24 08:13 100 MLS/HR Sodium Chloride 10 ml QSHIFT@10,22 IV 06/17/24 22:00 06/28/24 21:25 10 ML Fentanyl Citrate 250 ml @ 2.5 mls/hr Q24H IV 06/17/24 17:30 06/28/24 18:41 7.5 MLS/HR Albuterol 2.5 mg Q6HR NEB 06/20/24 12:00 06/29/24 06:31 2.5 MG Ipratropium [place] 0.5 mg Q6HR NEB 06/20/24 12:00 06/29/24 06:31 0.5 MG Ceftriaxone Sodium/Dextrose 50 ml @ 50 mls/hr BID IV 06/21/24 22:00 06/28/24 21:25 50 MLS/HR Propofol 100 ml @ 4.263 mls/ hr [id number] IV 06/27/24 10:45 06/29/24 03:45 8.526 MLS/HR Vancomycin HCl 0 ml @ 0 mls/hr UD IV 06/27/24 23:45 Cancel Midodrine 10 mg TID@0600,1200,1800 PO 06/28/24 12:00 06/29/24 06:05 10 MG Lorazepam 1 mg ONCE PRN IV 06/28/24 11:30 07/03/24 11:29 Dexmedetomidine HCl 400 mcg/ Dextrose 100 ml @ 7.145 mls/ hr Q14H IV 06/28/24 15:00 06/29/24 05:47 7.145 MLS/HR Acetaminophen 650 mg Q6HP PRN PO 06/28/24 17:45 06/28/24 18:21 650 MG Norepinephrine Bitartrate 250 ml @ 3.75 mls/hr Q24H IV 06/29/24 05:30 06/29/24 06:05 3.75 MLS/HR Laboratory Results Laboratory Tests 06/29/24 03:30 Chemistry Test 06/29/24 03:30 Albumin 3.4 g/dL (3.2-4.8) Calcium Level 9.9 mg/dL (8.7-10.4) Total Protein 6.4 g/dL (5.7-8.2) LFT Test 06/29/24 03:30 Alanine Aminotransferase (ALT) 49 U/L (7-40) H Alkaline Phosphatase 110 U/L (46-116) Aspartate Amino Transferase (AST) 41 U/L (13-40) H Total Bilirubin 0.3 mg/dL (0.2-1.0) Urinalysis Test 05/25/24 08:30 05/28/24 01:30 Urine Color Yellow (Yellow) Urine Clarity Clear (Clear) Urine pH 7.5 (5.0-9.0) Urine Specific [place] 1.013 (1.001-1.035) Urine Protein 2+ (Negative) H Urine Ketones Negative (Negative) Urine Blood Negative /uL (Negative) Urine Nitrite Negative (Negative) Urine Bilirubin Negative (Negative) Urine Urobilinogen 8 mg/dL (Negative) H Urine Leukocyte Esterase Negative /uL (Negative) Urine RBC 5 /hpf (0 - 4) Urine WBC 1 /hpf (0 - 5) Urine Squamous Epithelial Cells Few /hpf (<5) Urine Bacteria None seen /hpf (None Seen) Urine Glucose Normal mg/dL (Normal) Urine Creatinine 248.25 mg/dL (30.0-125.0) H Urine Sodium 27 mmol/L (40-220) L Urine Total Protein 293.2 mg/dL (1-14) H Blood Gas Results Test 06/29/24 08:18 Arterial Blood pH 7.498 (7.350-7.450) FiO2 % 40.0 Microbiology Microbiology Date/Time Source Procedure Growth Status 06/28/24 00:38 Blood Blood Culture - Preliminary NO GROWTH AFTER 24 HOURS OF INCUBATION. Resulted 06/09/24 17:21 Urine - [place] Urine Culture - Final Complete 05/27/24 08:50 Nose MRSA Screen - Final Complete 05/25/24 06:50 Sputum Gram Stain - Final Complete 05/25/24 06:50 Respiratory Culture - Final Presumptive Tara albicans Complete Labs and/or images reviewed: Labs reviewed by me, Image(s) reviewed by me Assessment/Plan Assessment/Plan Impression: -severe sepsis with shock , Streptococcus pneumoniae -probable community-acquired pneumonia with Gram-positive cocci -sepsis with Gram-positive cocci -acute hypoxic respiratory failure with mechanical ventilation -obesity -acute kidney injury, anuric -NSTEMI, probably type 2 -hypoalbuminemia -? Angioedema on resolved -respiratory alkalosis -multifocal CVA -endocarditis Plan: Events: Long discussion made with patient's sonJc yesterday evening. Plan of care discussed. This morning patient is off of sedation and undergoing spontaneous breathing trial. Patient was spontaneously opening eyes. Norepinephrine at 1.5 mcg per minute. Discussed with primary nurse to continue current plan of care and weaned off vasopressors. MRA and CT of chest reviewed. -bronchodilators -antibiotic therapy per Infectious Disease -ventilator settings per director graphics -nephrology consultation: HD -PUD, DVT prophylaxis -repeat labs, chest x-ray, ABG in a.m.. -social service consultation for LTAC placement Critical care time spent with patient discussing and formulating plan of care: 40 minutes. This does not include time spent performing procedures. This medical document was created using an electronic medical record system with [employer] dictation system. Although this document has been carefully reviewed, there may still be some phonetic and typographical errors. These areas are purely typographical due to imperfections of the software programs, and do not reflect any compromise in the patient's medical care. Plan discussed with: Patient, Other (RN) My Orders Orders - OMAR PARK NP Procedure Category Date Status Time Communication Order ORDERS 06/28/24 Transmitted 10:01 Midodrine Tablet PHA 06/28/24 In Process (Proamatine Tablet) 12:00 Cpap/Sed Vacation Med ORDERS 06/28/24 Transmitted Weaning 10:01 Cpap/Sed Vacation Med ORDERS 06/28/24 Transmitted Weaning 18:13 Norepinephrine 8 PHA 06/29/24 In Process Mg/250ml Kit 05:30 Abg W/ Co-Ox RT 06/29/24 Logged 06:00 Cpap Trial For Am ORDERS 06/29/24 Transmitted 07:30 Date of Service: Jun 29, 2024 Billing Provider: OMAR PARK NP Common Visit Codes: [id number] CARE 30-74 MIN OMAR PARK NP Jun 29, 2024 09:06
--- NOTE | 2024-06-29 10:22 | DVHPN2 ---
Progress Note - Dictate Date Seen: Jun 29, 2024 Medical Necessity Reason Pt with a Central, PICC or Fol: No The following are medically ne: Central Line, Putnam Catheter Reason for putnam catheter: Strict I&O Subjective Ms. Pandya is a 53 years old right-handed female with a history of morbid obesity, hypertension, the patient was was brought to the [facility] on 05/25/24 with a chief company of altered mental status, respiratory distress. I have seen and examined the patient, I have talked to her nurse. She is responsive to light touch with eyes opening The pupils equally round and reactive today Her nurse claims she noticed anisocoria sometimes Levo 1 mcg/min, Precedex 0.2mcg/kg/hour Urine culture, 05/25/2024: Negative Blood culture, 05/25/2024: Streptococcus pneumoniae UDS, 05/25/2024: Negative Urinalysis, 05/25/2024: WBC: 1, urine leukocyte esterase: Negative ABG, 05/25/2024: Metabolic acidosis, hypoxia, 05/26/2024: Metabolic acidosis, hypoxia, 05/27/24: Metabolic acidosis, hypoxia WBC/HB/PLT/MCV, 06/02/2024: 22.4/9/342/89.4 06/09/2024: 19.6/9.4/235/91.6, 06/12/2024: 8.2/9.2/205/90.6 BUN/CR, 05/26/2024: 62/7.01 06/02/2024: 123/6.59, 06/09/2024: 137/6.32, 06/12/2024: 71/4.33 HGB A1c, 05/25/2024: 5.6 Lactic acid, 05/25/2024: 3.6, 4.6, 4.2, 05/26/2024: 3.6 Troponin one high sensitivity, 05/25/2024: 1060, 1354, 1262 TBI/AST/ALT/AP, 05/26/2024: 2/246/167/98, 06/07/2024: 0.9/139/464/93 TG/HDL/LDL/HDL, 05/25/2024: 192/98/40/8 Vitamin B12, 06/02/2024: 836 TSH, 05/25/2024: 0.57 SAMIR, 06/15/2024: Vegetation anterior mitral leaflet Carotid Doppler, 06/15/2024: 1. There is no hemodynamically significant stenosis in the right common carotid and internal carotid arteries. There is elevated peak systolic velocity in the right external carotid artery. 2. Nonvisualization of the left carotid and vertebral arteries secondary to overlying bandage. Consider further evaluation with CTA neck Chest x-ray, 05/25/2024: 1. Distal tip of the endotracheal tube is approximately 5.5 cm above the level of the nik. 2. Poorly visualized enteric tube at its distal aspect. Appears to reach the gastroesophageal junction, although not visualized distal to this point. Correlate with clinical findings. 3. Bilateral airspace opacities and interstitial opacities, may be due to multifocal pneumonia or pulmonary edema in the appropriate clinical setting CT head, 05/25/2024: No gross acute intracranial process CT head, 06/02/24: 1. Interval development of 2 foci of subcortical parenchymal hemorrhage in the left frontal lobe. No mass effect or midline shift. 2. Moderate amount of fluid in the posterior nasopharynx likely related to intubation. Recommend suctioning to prevent aspiration. 3. Small bilateral mastoid effusions. We are in the process of reaching out to the nurse or physician in charge of the patient to convey the findings. CT head, 06/04/2024: Redemonstrated are 2 hyperdense foci in the subcortical left frontal lobe which may represent small foci of parenchymal hemorrhage. There is no significant surrounding edema or associated mass effect CT head, 06/06/2024: The 2 foci of left frontal subcortical hemorrhage are less conspicuous in the current exam partially resolved. No new foci of hemorrhage CT chest, 06/23/2024: 1. Bilateral lower lobe consolidations which may reflect atelectasis or pneumonia. No findings to suggest septic emboli. 2. Cardiomegaly. Chest, 06/28/2024: Bilateral lower lobe infiltrates slightly worse than on previous study. There is now a small left pleural effusion MRI head, 06/15/2024: Extensive periventricular and deep white matter signal abnormality most of which is likely chronic. Possible small focus of subacute ischemia in the right periventricular region. No definite acute intracranial hemorrhage on MRI. Clinical correlation and continued follow-up is recommended MRA head, 06/28/2024: Asymmetrically decreased flow signal in the right M3 and M4 arterial branches in comparison to the left. Distal MCA arterial stenosis/ occlusion is not excluded. Further evaluation with CT angiography is recommended if not already performed vital signs Vital Sign Date Time Temp Pulse Resp B/P (MAP) Pulse Ox O2 Delivery O2 Flow Rate FiO2 06/29/24 09:45 175/86 06/29/24 08:52 84 23 100 40 06/29/24 08:30 99.0 210.2 06/29/24 08:00 Mechanical Ventilator+ Total Intake and Output 06/28/24 06/28/24 06/29/24 15:00 23:00 07:00 Intake Total 250.307 ml 349.683 ml 233.038 ml Output Total 50 ml 25 ml Balance 250.307 ml 299.683 ml 208.038 ml medications Current Medications Medications Dose Ordered Sig/Yousif Route Start Time Stop Time Status Last Admin Dose Admin Midazolam HCl 50 ml @ 1 mls/hr Q24H IV 05/25/24 06:30 05/29/24 09:11 5 MLS/HR Atorvastatin Calcium 40 mg HS NG 05/25/24 22:00 06/28/24 21:25 40 MG Ondansetron HCl 4 mg Q4HP PRN IV 05/25/24 10:45 Nitroglycerin 0.4 mg Q5MINP PRN SL 05/25/24 10:45 Bumetanide 2 mg BIDD IV 05/30/24 18:00 06/29/24 05:47 2 MG Aspirin 81 mg DAILY PO 06/10/24 10:00 06/29/24 09:24 81 MG Enteral Nutritional Formula 1,000 ml 40ML/HR GT 06/15/24 09:15 06/28/24 18:22 1,000 ML Albumin Human 100 ml @ 100 mls/hr PRN PRN IV 06/16/24 11:00 06/25/24 08:13 100 MLS/HR Sodium Chloride 10 ml QSHIFT@10,22 IV 06/17/24 22:00 06/29/24 09:24 10 ML Fentanyl Citrate 250 ml @ 2.5 mls/hr Q24H IV 06/17/24 17:30 06/28/24 18:41 7.5 MLS/HR Albuterol 2.5 mg Q6HR NEB 06/20/24 12:00 06/29/24 06:31 2.5 MG Ipratropium [place] 0.5 mg Q6HR NEB 06/20/24 12:00 06/29/24 06:31 0.5 MG Ceftriaxone Sodium/Dextrose 50 ml @ 50 mls/hr BID IV 06/21/24 22:00 06/29/24 09:24 50 MLS/HR Propofol 100 ml @ 4.263 mls/ hr [id number] IV 06/27/24 10:45 06/29/24 03:45 8.526 MLS/HR Vancomycin HCl 0 ml @ 0 mls/hr UD IV 06/27/24 23:45 Cancel Midodrine 10 mg TID@0600,1200,1800 PO 06/28/24 12:00 06/29/24 06:05 10 MG Lorazepam 1 mg ONCE PRN IV 06/28/24 11:30 07/03/24 11:29 Dexmedetomidine HCl 400 mcg/ Dextrose 100 ml @ 7.145 mls/ hr Q14H IV 06/28/24 15:00 06/29/24 05:47 7.145 MLS/HR Acetaminophen 650 mg Q6HP PRN PO 06/28/24 17:45 06/28/24 18:21 650 MG Norepinephrine Bitartrate 250 ml @ 3.75 mls/hr Q24H IV 06/29/24 05:30 06/29/24 06:05 3.75 MLS/HR objective The patient is well-nourished and well-developed with no distress. Status post tracheostomy Status post PEG feeding tube insertion MENTAL STATUS: Subjective CRANIAL NERVES: Pupils are round and reactive. There are spontaneous conjugated eye movement. No signs of facial weakness. There are gagging or coughing reflexes during oral care. SENSATION: Response to strong painful stimuli MOTOR: Normal tone in the upper and lower extremity. Normal muscle bulk. No fasciculations. No spontaneous movement REFLEXES: Deep tendon reflexes are symmetrical. No pathological reflexes. CEREBELLAR/COORDINATION: Deferred GAIT/STATION: deferred. laboratory and microbiology Laboratory Tests 06/29/24 03:30 Test 06/29/24 03:30 Range/Units Serum Glucose 89 74-106 mg/dL Problem List Altered mental status/Coma Hypoxic encephalopathy secondary to respiratory failure Metabolic encephalopathy secondary to acidosis, sepsis, septic shock, kidney failure Multiple acute/subacute strokes Heart attack Pneumonia Sepsis, septic shock Endocarditis Acute on chronic kidney failure Acute petechial hemorrhage in the left frontal lobe, improving on follow-up CT Intermittent anisocoria, uncertain clinical significance Assessment/Plan Monitoring Supportive treatment ICU care Stabilize vitals/pressor drip Respiratory support/vent management Oxygen IV antibiotics GI prophylaxis/Protonix DVT prophylaxis/heparin Nephrology on case Pulmonology on case Infectious diseases on case She is s/p PEG feeding tube insertion and tracheostomy More recommendation per clinical course This medical document was created using an electronic medical record system with [employer] dictation system. Although this document has been carefully reviewed, there may still be some phonetic and typographical errors. These areas are purely typographical due to imperfections of the software programs, and do not reflect any compromise in the patient's medical care Prognosis poor Dietary Evaluation Review Comments: 1) If GI is accessible consider Jevity 1.2 @ 70ml/hr x 24hr continuous feed goal rate as tolerated 2) If pt remains NPO >7 days consider TPN to meet at least 75% of estimated needs 3) Advance pt diet when medically feasible to a 2gm Sodium diet modified per MECHANICAL MAINTENANCE WORKER recommendations 4) Continue current plan of care Expected Outcomes/Goals: 1) Pt to receive nutrition support within 7 days of NPO status 2) Pt diet to advance 3) F/U in 2-3 days Plan discussed with: Other PILAR HOOD MD Jun 29, 2024 10:22
--- NOTE | 2024-06-29 13:01 | DVHPN2 ---
Progress Note Date Seen: Jun 29, 2024 Medical Necessity Reason Pt with a Central, PICC or Fol: No The following are medically ne: Central Line, Putnam Catheter Reason for putnam catheter: Strict I&O Subjective Review of Systems: RESPIRATORY:Abnormal Other Systems: Patient seen and examined by myself today in follow-up, patient remained intubated on ventilator Objective vital signs Vital Sign Date Time Temp Pulse Resp B/P (MAP) Pulse Ox O2 Delivery O2 Flow Rate FiO2 06/29/24 12:20 90 21 149/81 (103) 100 40 06/29/24 12:00 98.8 209.8 06/29/24 12:00 Mechanical Ventilator+ Total Intake and Output 06/28/24 06/28/24 06/29/24 15:00 23:00 07:00 Intake Total 250.307 ml 349.683 ml 233.038 ml Output Total 50 ml 25 ml Balance 250.307 ml 299.683 ml 208.038 ml medications Current Medications Medications Dose Ordered Sig/Yousif Route Start Time Stop Time Status Last Admin Dose Admin Midazolam HCl 50 ml @ 1 mls/hr Q24H IV 05/25/24 06:30 05/29/24 09:11 5 MLS/HR Atorvastatin Calcium 40 mg HS NG 05/25/24 22:00 06/28/24 21:25 40 MG Ondansetron HCl 4 mg Q4HP PRN IV 05/25/24 10:45 Nitroglycerin 0.4 mg Q5MINP PRN SL 05/25/24 10:45 Bumetanide 2 mg BIDD IV 05/30/24 18:00 06/29/24 05:47 2 MG Aspirin 81 mg DAILY PO 06/10/24 10:00 06/29/24 09:24 81 MG Enteral Nutritional Formula 1,000 ml 40ML/HR GT 06/15/24 09:15 06/28/24 18:22 1,000 ML Albumin Human 100 ml @ 100 mls/hr PRN PRN IV 06/16/24 11:00 06/25/24 08:13 100 MLS/HR Sodium Chloride 10 ml QSHIFT@10,22 IV 06/17/24 22:00 06/29/24 09:24 10 ML Fentanyl Citrate 250 ml @ 2.5 mls/hr Q24H IV 06/17/24 17:30 06/28/24 18:41 7.5 MLS/HR Albuterol 2.5 mg Q6HR NEB 06/20/24 12:00 06/29/24 12:20 2.5 MG Ipratropium [place] 0.5 mg Q6HR NEB 06/20/24 12:00 06/29/24 12:20 0.5 MG Ceftriaxone Sodium/Dextrose 50 ml @ 50 mls/hr BID IV 06/21/24 22:00 06/29/24 09:24 50 MLS/HR Propofol 100 ml @ 4.263 mls/ hr [id number] IV 06/27/24 10:45 06/29/24 03:45 8.526 MLS/HR Vancomycin HCl 0 ml @ 0 mls/hr UD IV 06/27/24 23:45 Cancel Midodrine 10 mg TID@0600,1200,1800 PO 06/28/24 12:00 06/29/24 06:05 10 MG Lorazepam 1 mg ONCE PRN IV 06/28/24 11:30 07/03/24 11:29 Dexmedetomidine HCl 400 mcg/ Dextrose 100 ml @ 7.145 mls/ hr Q14H IV 06/28/24 15:00 06/29/24 05:47 7.145 MLS/HR Acetaminophen 650 mg Q6HP PRN PO 06/28/24 17:45 06/28/24 18:21 650 MG Norepinephrine Bitartrate 250 ml @ 3.75 mls/hr Q24H IV 06/29/24 05:30 06/29/24 06:05 3.75 MLS/HR Examination: LUNGS:Normal, CVS:Normal, MSK:Abnormal laboratory and microbiology Laboratory Tests 06/29/24 03:30 Test 06/29/24 03:30 Range/Units Serum Glucose 89 74-106 mg/dL Microbiology Date/Time Source Procedure Growth Status 06/28/24 00:38 Blood Blood Culture - Preliminary NO GROWTH AFTER 24 HOURS OF INCUBATION. Resulted 06/09/24 17:21 Urine - [place] Urine Culture - Final Complete 05/27/24 08:50 Nose MRSA Screen - Final Complete 05/25/24 06:50 Sputum Gram Stain - Final Complete 05/25/24 06:50 Respiratory Culture - Final Presumptive Tara albicans Complete Problem List/Assessment/Plan Problem List/Assessment/Plan CHANG superimposed on CKD secondary to ATN, FeNa > 2% needing HD Acute respiratory failure, intubated on ventilator Septic shock CHF, Ef 40% Morbid obesity Anemia of CKD Hypokalemia REC: Hemodialysis tomorrow Epogen 85482 IV post hemodialysis IV pressors for BP support Albumin 25% p.r.n. hemodialysis IV Abx KCL replacement Will continue to follow Plan discussed with: Other (Nurse) Dietary Evaluation Review Comments: 1) If GI is accessible consider Jevity 1.2 @ 70ml/hr x 24hr continuous feed goal rate as tolerated 2) If pt remains NPO >7 days consider TPN to meet at least 75% of estimated needs 3) Advance pt diet when medically feasible to a 2gm Sodium diet modified per [employer]SEM[employer] II LABORER recommendations 4) Continue current plan of care Expected Outcomes/Goals: 1) Pt to receive nutrition support within 7 days of NPO status 2) Pt diet to advance 3) F/U in 2-3 days MARIELA JONES MD Jun 29, 2024 13:01
[2024-06-29 15:19] LABS: Base Excess 0.8 mmol/L (-2.0-3.0)
--- NOTE | 2024-06-29 21:11 | DVHPN2 ---
Progress Note - Dictate Date Seen: Jun 29, 2024 Medical Necessity Reason Pt with a Central, PICC or Fol: No The following are medically ne: Central Line, Putnam Catheter Reason for putnam catheter: Strict I&O Subjective Patient seen and examined at bedside. Sedated, on mechanical ventilator. S/p trach Overnight events reviewed. vital signs Vital Sign Date Time Temp Pulse Resp B/P (MAP) Pulse Ox O2 Delivery O2 Flow Rate FiO2 06/29/24 20:01 87 19 139/68 (91) 100 40 06/29/24 18:31 99.9 211.8 06/29/24 18:21 Mechanical Ventilator+ Total Intake and Output 06/28/24 06/28/24 06/29/24 15:00 23:00 07:00 Intake Total 250.307 ml 349.683 ml 233.038 ml Output Total 50 ml 25 ml Balance 250.307 ml 299.683 ml 208.038 ml medications Current Medications Medications Dose Ordered Sig/Yousif Route Start Time Stop Time Status Last Admin Dose Admin Midazolam HCl 50 ml @ 1 mls/hr Q24H IV 05/25/24 06:30 05/29/24 09:11 5 MLS/HR Atorvastatin Calcium 40 mg HS NG 05/25/24 22:00 06/29/24 20:15 40 MG Ondansetron HCl 4 mg Q4HP PRN IV 05/25/24 10:45 Nitroglycerin 0.4 mg Q5MINP PRN SL 05/25/24 10:45 Bumetanide 2 mg BIDD IV 05/30/24 18:00 06/29/24 18:10 2 MG Aspirin 81 mg DAILY PO 06/10/24 10:00 06/29/24 09:24 81 MG Enteral Nutritional Formula 1,000 ml 40ML/HR GT 06/15/24 09:15 06/29/24 20:41 1,000 ML Albumin Human 100 ml @ 100 mls/hr PRN PRN IV 06/16/24 11:00 06/25/24 08:13 100 MLS/HR Sodium Chloride 10 ml QSHIFT@10,22 IV 06/17/24 22:00 06/29/24 20:16 10 ML Fentanyl Citrate 250 ml @ 2.5 mls/hr Q24H IV 06/17/24 17:30 06/28/24 18:41 7.5 MLS/HR Albuterol 2.5 mg Q6HR NEB 06/20/24 12:00 06/29/24 18:21 2.5 MG Ipratropium [place] 0.5 mg Q6HR NEB 06/20/24 12:00 06/29/24 18:21 0.5 MG Ceftriaxone Sodium/Dextrose 50 ml @ 50 mls/hr BID IV 06/21/24 22:00 06/29/24 20:15 50 MLS/HR Propofol 100 ml @ 4.263 mls/ hr [id number] IV 06/27/24 10:45 06/29/24 03:45 8.526 MLS/HR Vancomycin HCl 0 ml @ 0 mls/hr UD IV 06/27/24 23:45 Cancel Midodrine 10 mg TID@0600,1200,1800 PO 06/28/24 12:00 06/29/24 14:09 10 MG Lorazepam 1 mg ONCE PRN IV 06/28/24 11:30 07/03/24 11:29 Dexmedetomidine HCl 400 mcg/ Dextrose 100 ml @ 7.145 mls/ hr Q14H IV 06/28/24 15:00 06/29/24 16:19 7.145 MLS/HR Acetaminophen 650 mg Q6HP PRN PO 06/28/24 17:45 06/28/24 18:21 650 MG Norepinephrine Bitartrate 250 ml @ 3.75 mls/hr Q24H IV 06/29/24 05:30 06/29/24 06:05 3.75 MLS/HR objective Gen.: Patient lying in bed in medical ICU. Sedated, on mechanical ventilator. S/p trach Head: Normocephalic, atraumatic. Eyes: PERRLA. Ears: Normal external anatomy. Throat: Endotracheal tube and orogastric tube in place. Neck: Trach in place. Chest: Transmitted breath sounds bilaterally. Decreased air entry bilaterally. No wheezing. Bibasilar crackles. Cardiovascular: Positive S1, positive S2. Regular rate and rhythm. Abdomen: Positive bowel sounds in all 4 quadrants. Soft, nontender, nondistended. : Putnam in place. Normal external genitalia. Rectal: Deferred. Skin: Warm, dry. Intact. Extremities: 2+ radial pulses bilaterally. No lower extremity edema. Neuro: Sedated laboratory and microbiology Laboratory Tests 2/11/25 03:30 Test 06/29/24 03:30 Range/Units Serum Glucose 89 74-106 mg/dL Assessment/Plan Impression: Acute hypoxic respiratory failure On mechanical ventilator Septic shock Elevated troponin Acute kidney injury Lactic acidosis Metabolic acidosis Multifocal pneumonia, likely gram negative Pulmonary edema AE COPD Events: CPAP with PS 18, PEEP 5, FiO2 40%. S/p trach Trach care PEG tube in place Hemodialysis per Nephrology Sedated on Propofol Precedex drip. On pressors for hemodynamic support Levophed 0.5 mcg/min Titrate to keep mean arterial pressure greater than 65 mmHg. Improved pressor requirements Continue antibiotics Tube feeds for nutritional support Wound care Monitor hemoglobin Blood pressure control Diurese to euvolemia w/ Bumex Monitor renal function Monitor electrolytes, supplement as necessary Hemodialysis per Nephrology Nephrology recs appreciated. Echo showed EF of 40%. SBT/KAREN Taper sedation as tolerated Awaiting LTAC placement Poor prognosis, poor chance of meaningful recovery CT head revealed e/o multiple strokes. Neurology recommendations appreciated Labs and imaging reviewed. Rest of plan as noted below. Plan: s/p intubation on mechanical ventilator. On AC mode; RR 18, VT 500, PEEP 5, FiO2 40% Titrate FIO2 to keep O2 saturation above 90%. VAP bundle. Daily ABG and CXR while intubated Sedated for vent synchrony Continue bronchodilators. Continue antibiotics. F/u cultures. On pressors for hemodynamic support Titrate to keep mean arterial pressure greater than 65 mmHg. Cardiology recs appreciated. Monitor renal function Monitor electrolytes. Supplement as necessary. Monitor ins and outs. Nephrology recs appreciated. IV fluid hydration GI prophylaxis. DVT prophylaxis. Prognosis: Poor given patient's multiple co-morbidities. Condition: Critical Rest of plan per hospitalist and other consultants. A total of 35 minutes of critical care time was spent reviewing the patient record, examining the patient, making a diagnostic and therapeutic plan, discussing this plan with the medical personnel, following up on diagnostic studies and following the patient for clinical stability excluding any and all procedures. At least 50% of this time was spent in direct, [id number] contact. Thank you, MIRNA Stratton, for allowing me to participate in this patient's care. Further recommendations will depend on the patient's clinical course. Please do not hesitate to contact me if you have any questions or concerns. This medical document was created using an electronic medical record system with [employer] dictation system. Although these documentations are being carefully reviewed, there may still be some phonetic and typographical changes. The errors are purely typographical, due to imperfection on the software program, and do not reflect any compromise in the patient's medical care. Dietary Evaluation Review Comments: 1) If GI is accessible consider Jevity 1.2 @ 70ml/hr x 24hr continuous feed goal rate as tolerated 2) If pt remains NPO >7 days consider TPN to meet at least 75% of estimated needs 3) Advance pt diet when medically feasible to a 2gm Sodium diet modified per FLAT SORTER PROCESSOR recommendations 4) Continue current plan of care Expected Outcomes/Goals: 1) Pt to receive nutrition support within 7 days of NPO status 2) Pt diet to advance 3) F/U in 2-3 days Plan discussed with: Other (LUZMARIA Syed) Critical Care Time(min): 35 MELODY ELIZABETH MD Jun 29, 2024 21:11
[2024-06-30] VITALS (109 sets, daily range): BP systolic 90–211; BP diastolic 44–102; PULSE 66–106; RESP 13–38; TEMP 75.6–100.8; O2SAT 95–100
[2024-06-30 04:27] LABS: Mean Corpuscular Hemoglobin 29.8 pg (28.0-32.0); White Blood Cell 6.4 10^3/uL (4.4-10.8)
[2024-06-30 04:40] LABS: Hematocrit 23.3 % (36.0-46.0); Hemoglobin 7.7 g/dL (12.2-16.2); Mean Corpuscular Volume 90.3 fL (80.0-100.0); Platelet Count (auto) 181 10^3/uL (140-450); Red Blood Cells 2.58 10^6/uL (4.0-5.20); Red Cell Distribution Width 16.2 % (11.8-14.3)
[2024-06-30 04:52] LABS: Band Neutrophils % (manual) 0; Basophils % (manual) 0 (0.0-2.0); Blast Cells 0; Metamyelocytes % 0; Myelocytes % 0; Promyelocytes % 0; Reactive Lymphocytes 0
[2024-06-30] MEDS: SODIUM CHL 0.9% 1000 ML BAG XX ONE (06:00)
[2024-06-30 06:21] LABS: Eosinophils % (manual) 5 (0-7); Lymphocytes % (manual) 19 (10.0-50.0); Monocytes % (manual) 10 (0-12)
[2024-06-30 06:22] LABS: Platelet Estimate Adequate
--- NOTE | 2024-06-30 10:14 | DVHPN2 ---
Subjective Patient encephalopathic Reviewed: Care Plan, H&P, Labs, Medications, Previous Orders, Radiology, Other (Consultations) Changes from previous H/P or p: No Changes General: Per HPI Objective Vitals Vital Signs Date Time Temp Pulse Resp B/P (MAP) Pulse Ox O2 Delivery O2 Flow Rate FiO2 06/30/24 09:30 99.3 81 19 137/70 (92) 100 210.7 06/30/24 07:53 40 06/30/24 06:00 Mechanical Ventilator+ Intake/Output Intake and Output 06/30/24 07:00 Intake Total 452.164 ml Output Total 75 ml Balance 377.164 ml Intake Oral 100 ml IV Total 243.164 ml Tube Feeding 109 ml Output Urine Total 75 ml General Appearance: Alert, No acute distress HEENT: Other (Tracheostomy) Neck: Other (Tracheostomy) Lungs: Other (MV sounds) Chest/Breasts: Other (HD catheter ) Cardiovascular: Regular rate, Normal S1, Normal S2 Abdomen: Other (Decreased bowel sounds; G-tube in place) Genitourinary: Other ([place]) Neuro: Other (Sedated) Skin: Dry, Intact Psych/Mental Status: Other (Sedated) Medications Current Medications Medications Dose Ordered Sig/Yousif Route Start Time Stop Time Status Last Admin Dose Admin Midazolam HCl 50 ml @ 1 mls/hr Q24H IV 05/25/24 06:30 05/29/24 09:11 5 MLS/HR Atorvastatin Calcium 40 mg HS NG 05/25/24 22:00 06/29/24 20:15 40 MG Ondansetron HCl 4 mg Q4HP PRN IV 05/25/24 10:45 Nitroglycerin 0.4 mg Q5MINP PRN SL 05/25/24 10:45 Bumetanide 2 mg BIDD IV 05/30/24 18:00 06/30/24 05:19 2 MG Aspirin 81 mg DAILY PO 06/10/24 10:00 06/29/24 09:24 81 MG Enteral Nutritional Formula 1,000 ml 40ML/HR GT 06/15/24 09:15 06/29/24 20:41 1,000 ML Albumin Human 100 ml @ 100 mls/hr PRN PRN IV 06/16/24 11:00 06/30/24 06:50 100 MLS/HR Sodium Chloride 10 ml QSHIFT@10,22 IV 06/17/24 22:00 06/29/24 20:16 10 ML Fentanyl Citrate 250 ml @ 2.5 mls/hr Q24H IV 06/17/24 17:30 06/28/24 18:41 7.5 MLS/HR Albuterol 2.5 mg Q6HR NEB 06/20/24 12:00 06/30/24 06:21 2.5 [address] [place]prat[address]ium [place] 0.5 mg Q6HR NEB 06/20/24 12:00 06/30/24 06:21 0.5 MG Ceftriaxone Sodium/Dextrose 50 ml @ 50 mls/hr BID IV 06/21/24 22:00 06/29/24 20:15 50 MLS/HR Propofol 100 ml @ 4.263 mls/ hr [id number] IV 06/27/24 10:45 06/29/24 03:45 8.526 MLS/HR Vancomycin HCl 0 ml @ 0 mls/hr UD IV 06/27/24 23:45 Cancel Midodrine 10 mg TID@0600,1200,1800 PO 06/28/24 12:00 06/29/24 14:09 10 MG Lorazepam 1 mg ONCE PRN IV 06/28/24 11:30 07/03/24 11:29 Dexmedetomidine HCl 400 mcg/ Dextrose 100 ml @ 7.145 mls/ hr Q14H IV 06/28/24 15:00 06/29/24 16:19 7.145 MLS/HR Acetaminophen 650 mg Q6HP PRN PO 06/28/24 17:45 06/28/24 18:21 650 MG Norepinephrine Bitartrate 250 ml @ 3.75 mls/hr Q24H IV 06/29/24 05:30 06/29/24 06:05 3.75 MLS/HR Laboratory Results Laboratory Tests 06/29/24 03:30 06/30/24 03:20 Urinalysis Test 05/25/24 08:30 05/28/24 01:30 Urine Color Yellow (Yellow) Urine Clarity Clear (Clear) Urine pH 7.5 (5.0-9.0) Urine Specific [place] 1.013 (1.001-1.035) Urine Protein 2+ (Negative) H Urine Ketones Negative (Negative) Urine Blood Negative /uL (Negative) Urine Nitrite Negative (Negative) Urine Bilirubin Negative (Negative) Urine Urobilinogen 8 mg/dL (Negative) H Urine Leukocyte Esterase Negative /uL (Negative) Urine RBC 5 /hpf (0 - 4) Urine WBC 1 /hpf (0 - 5) Urine Squamous Epithelial Cells Few /hpf (<5) Urine Bacteria None seen /hpf (None Seen) Urine Glucose Normal mg/dL (Normal) Urine Creatinine 248.25 mg/dL (30.0-125.0) H Urine Sodium 27 mmol/L (40-220) L Urine Total Protein 293.2 mg/dL (1-14) H Blood Gas Results Test 06/29/24 15:03 Arterial Blood pH 7.535 (7.350-7.450) FiO2 % 40.0 Microbiology Microbiology Date/Time Source Procedure Growth Status 06/28/24 00:38 Blood Blood Culture - Preliminary NO GROWTH AFTER 48 HOURS OF INCUBATION. Resulted 06/09/24 17:21 Urine - [place] Urine Culture - Final Complete 05/27/24 08:50 Nose MRSA Screen - Final Complete 05/25/24 06:50 Sputum Gram Stain - Final Complete 05/25/24 06:50 Respiratory Culture - Final Presumptive Tara albicans Complete Labs and/or images reviewed: Labs reviewed by me, Image(s) reviewed by me Assessment/Plan Assessment/Plan Impression: -severe sepsis with shock , Streptococcus pneumoniae -probable community-acquired pneumonia with Gram-positive cocci -sepsis with Gram-positive cocci -acute hypoxic respiratory failure with mechanical ventilation -obesity -acute kidney injury, anuric -NSTEMI, probably type 2 -hypoalbuminemia -? Angioedema on resolved -respiratory alkalosis -multifocal CVA -endocarditis Plan: Events: Patient weaned off vasopressor therapy. Noted to be on CPAP yesterday for approximately 4 hours. Patient required higher pressure support to avoid tachypnea. Received hemodialysis today. Instructed nurse to weaned off of Precedex drip. -bronchodilators -antibiotic therapy per Infectious Disease -ventilator settings per test grader -nephrology consultation: HD -PUD, DVT prophylaxis -repeat labs, chest x-ray, ABG in a.m.. -social service consultation. Patient was stable for LTAC placement. Long discussion made with the patient's son, Jc yesterday. Critical care time spent with patient discussing and formulating plan of care: 40 minutes. This does not include time spent performing procedures. This medical document was created using an electronic medical record system with [employer] dictation system. Although this document has been carefully reviewed, there may still be some phonetic and typographical errors. These areas are purely typographical due to imperfections of the software programs, and do not reflect any compromise in the patient's medical care. Plan discussed with: Patient, Other (RN) My Orders Orders - OMAR PARK NP Procedure Category Date Status Time Communication Order ORDERS 06/30/24 Transmitted 10:10 Cpap/Sed Vacation Med ORDERS 06/30/24 Transmitted Weaning 10:10 Cpap Trial For Am ORDERS 06/30/24 Transmitted 10:10 Date of Service: Jun 30, 2024 Billing Provider: OMAR PARK NP Common Visit Codes: 67943-[id number] CARE 30-74 MIN OMAR PARK NP Jun 30, 2024 10:14
--- NOTE | 2024-06-30 10:24 | DVHPN2 ---
Progress Note - Dictate Date Seen: Jun 30, 2024 Medical Necessity Reason Pt with a Central, PICC or Fol: No The following are medically ne: Central Line, Putnam Catheter Reason for putnam catheter: Strict I&O Subjective Ms. Pandya is a 53 years old right-handed female with a history of morbid obesity, hypertension, the patient was was brought to the [facility] on 05/25/24 with a chief company of altered mental status, respiratory distress. I have seen and examined the patient, I have talked to her nurse. She was awake, but she was nonresponsive to verbal stimuli, she does not move the extremities The pupils equally round and reactive today She was going through hemodialysis Precedex 0.2mcg/kg/hour Urine culture, 05/25/2024: Negative Blood culture, 05/25/2024: Streptococcus pneumoniae UDS, 05/25/2024: Negative Urinalysis, 05/25/2024: WBC: 1, urine leukocyte esterase: Negative ABG, 05/25/2024: Metabolic acidosis, hypoxia, 05/26/2024: Metabolic acidosis, hypoxia, 05/27/24: Metabolic acidosis, hypoxia WBC/HB/PLT/MCV, 06/02/2024: 22.4/9/342/89.4 06/09/2024: 19.6/9.4/235/91.6, 06/12/2024: 8.2/9.2/205/90.6 BUN/CR, 05/26/2024: 62/7.01 06/02/2024: 123/6.59, 06/09/2024: 137/6.32, 06/12/2024: 71/4.33 HGB A1c, 05/25/2024: 5.6 Lactic acid, 05/25/2024: 3.6, 4.6, 4.2, 05/26/2024: 3.6 Troponin one high sensitivity, 05/25/2024: 1060, 1354, 1262 TBI/AST/ALT/AP, 05/26/2024: 2/246/167/98, 06/07/2024: 0.9/139/464/93 TG/HDL/LDL/HDL, 05/25/2024: 192/98/40/8 Vitamin B12, 06/02/2024: 836 TSH, 05/25/2024: 0.57 SAMIR, 06/15/2024: Vegetation anterior mitral leaflet Carotid Doppler, 06/15/2024: 1. There is no hemodynamically significant stenosis in the right common carotid and internal carotid arteries. There is elevated peak systolic velocity in the right external carotid artery. 2. Nonvisualization of the left carotid and vertebral arteries secondary to overlying bandage. Consider further evaluation with CTA neck Chest x-ray, 05/25/2024: 1. Distal tip of the endotracheal tube is approximately 5.5 cm above the level of the nik. 2. Poorly visualized enteric tube at its distal aspect. Appears to reach the gastroesophageal junction, although not visualized distal to this point. Correlate with clinical findings. 3. Bilateral airspace opacities and interstitial opacities, may be due to multifocal pneumonia or pulmonary edema in the appropriate clinical setting CT head, 05/25/2024: No gross acute intracranial process CT head, 06/02/24: 1. Interval development of 2 foci of subcortical parenchymal hemorrhage in the left frontal lobe. No mass effect or midline shift. 2. Moderate amount of fluid in the posterior nasopharynx likely related to intubation. Recommend suctioning to prevent aspiration. 3. Small bilateral mastoid effusions. We are in the process of reaching out to the nurse or physician in charge of the patient to convey the findings. CT head, 06/04/2024: Redemonstrated are 2 hyperdense foci in the subcortical left frontal lobe which may represent small foci of parenchymal hemorrhage. There is no significant surrounding edema or associated mass effect CT head, 06/06/2024: The 2 foci of left frontal subcortical hemorrhage are less conspicuous in the current exam partially resolved. No new foci of hemorrhage CT chest, 06/23/2024: 1. Bilateral lower lobe consolidations which may reflect atelectasis or pneumonia. No findings to suggest septic emboli. 2. Cardiomegaly. Chest, 06/28/2024: Bilateral lower lobe infiltrates slightly worse than on previous study. There is now a small left pleural effusion MRI head, 06/15/2024: Extensive periventricular and deep white matter signal abnormality most of which is likely chronic. Possible small focus of subacute ischemia in the right periventricular region. No definite acute intracranial hemorrhage on MRI. Clinical correlation and continued follow-up is recommended MRA head, 06/28/2024: Asymmetrically decreased flow signal in the right M3 and M4 arterial branches in comparison to the left. Distal MCA arterial stenosis/ occlusion is not excluded. Further evaluation with CT angiography is recommended if not already performed vital signs Vital Sign Date Time Temp Pulse Resp B/P (MAP) Pulse Ox O2 Delivery O2 Flow Rate FiO2 06/30/24 09:30 99.3 81 19 137/70 (92) 100 210.7 06/30/24 07:53 40 06/30/24 06:00 Mechanical Ventilator+ Total Intake and Output 06/29/24 06/29/24 06/30/24 15:00 23:00 07:00 Intake Total 112.786 ml 164.290 ml 175.088 ml Output Total 0 ml 75 ml Balance 112.786 ml 164.290 ml 100.088 ml medications Current Medications Medications Dose Ordered Sig/Yousif Route Start Time Stop Time Status Last Admin Dose Admin Midazolam HCl 50 ml @ 1 mls/hr Q24H IV 05/25/24 06:30 05/29/24 09:11 5 MLS/HR Atorvastatin Calcium 40 mg HS NG 05/25/24 22:00 06/29/24 20:15 40 MG Ondansetron HCl 4 mg Q4HP PRN IV 05/25/24 10:45 Nitroglycerin 0.4 mg Q5MINP PRN SL 05/25/24 10:45 Bumetanide 2 mg BIDD IV 05/30/24 18:00 06/30/24 05:19 2 MG Aspirin 81 mg DAILY PO 06/10/24 10:00 06/29/24 09:24 81 MG Enteral Nutritional Formula 1,000 ml 40ML/HR GT 06/15/24 09:15 06/29/24 20:41 1,000 ML Albumin Human 100 ml @ 100 mls/hr PRN PRN IV 06/16/24 11:00 06/30/24 06:50 100 MLS/HR Sodium Chloride 10 ml QSHIFT@10,22 IV 06/17/24 22:00 06/29/24 20:16 10 ML Fentanyl Citrate 250 ml @ 2.5 mls/hr Q24H IV 06/17/24 17:30 06/28/24 18:41 7.5 MLS/HR Albuterol 2.5 mg Q6HR NEB 06/20/24 12:00 06/30/24 06:21 2.5 MG Ipratropium [place] 0.5 mg Q6HR NEB 06/20/24 12:00 06/30/24 06:21 0.5 MG Ceftriaxone Sodium/Dextrose 50 ml @ 50 mls/hr BID IV 06/21/24 22:00 06/29/24 20:15 50 MLS/HR Propofol 100 ml @ 4.263 mls/ hr [id number] IV 06/27/24 10:45 06/29/24 03:45 8.526 MLS/HR Vancomycin HCl 0 ml @ 0 mls/hr UD IV 06/27/24 23:45 Cancel Midodrine 10 mg TID@0600,1200,1800 PO 06/28/24 12:00 06/29/24 14:09 10 MG Lorazepam 1 mg ONCE PRN IV 06/28/24 11:30 07/03/24 11:29 Dexmedetomidine HCl 400 mcg/ Dextrose 100 ml @ 7.145 mls/ hr Q14H IV 06/28/24 15:00 06/29/24 16:19 7.145 MLS/HR Acetaminophen 650 mg Q6HP PRN PO 06/28/24 17:45 06/28/24 18:21 650 MG Norepinephrine Bitartrate 250 ml @ 3.75 mls/hr Q24H IV 06/29/24 05:30 06/29/24 06:05 3.75 MLS/HR objective The patient is well-nourished and well-developed with no distress. Status post tracheostomy Status post PEG feeding tube insertion MENTAL STATUS: Subjective CRANIAL NERVES: Pupils are round and reactive. There are spontaneous conjugated eye movement. No signs of facial weakness. There are gagging or coughing reflexes during oral care. SENSATION: Response to strong painful stimuli MOTOR: Normal tone in the upper and lower extremity. Normal muscle bulk. No fasciculations. No spontaneous movement REFLEXES: Deep tendon reflexes are symmetrical. No pathological reflexes. CEREBELLAR/COORDINATION: Deferred GAIT/STATION: deferred. laboratory and microbiology Laboratory Tests 06/30/24 03:20 06/29/24 03:30 Test 06/29/24 03:30 Range/Units Serum Glucose 89 74-106 mg/dL Problem List Altered mental status/Coma Hypoxic encephalopathy secondary to respiratory failure Metabolic encephalopathy secondary to acidosis, sepsis, septic shock, kidney failure Multiple acute/subacute strokes Heart attack Pneumonia Sepsis, septic shock Endocarditis Acute on chronic kidney failure Acute petechial hemorrhage in the left frontal lobe, improving on follow-up CT Intermittent anisocoria, uncertain clinical significance Assessment/Plan Monitoring Supportive treatment ICU care Stabilize vitals/pressor drip Respiratory support/vent management Oxygen IV antibiotics GI prophylaxis/Protonix DVT prophylaxis/heparin Nephrology on case Pulmonology on case Infectious diseases on case She is s/p PEG feeding tube insertion and tracheostomy More recommendation per clinical course This medical document was created using an electronic medical record system with [employer] dictation system. Although this document has been carefully reviewed, there may still be some phonetic and typographical errors. These areas are purely typographical due to imperfections of the software programs, and do not reflect any compromise in the patient's medical care Prognosis poor Dietary Evaluation Review Comments: 1) If GI is accessible consider Jevity 1.2 @ 70ml/hr x 24hr continuous feed goal rate as tolerated 2) If pt remains NPO >7 days consider TPN to meet at least 75% of estimated needs 3) Advance pt diet when medically feasible to a 2gm Sodium diet modified per [employer] recommendations 4) Continue current plan of care Expected Outcomes/Goals: 1) Pt to receive nutrition support within 7 days of NPO status 2) Pt diet to advance 3) F/U in 2-3 days Plan discussed with: Other PILAR HOOD MD Jun 30, 2024 10:24
--- NOTE | 2024-06-30 10:51 | DVHPN2 ---
Progress Note Date Seen: Jun 30, 2024 Medical Necessity Reason Pt with a Central, PICC or Fol: No The following are medically ne: Central Line, Putnam Catheter Reason for putnam catheter: Strict I&O Subjective Review of Systems: RESPIRATORY:Abnormal Other Systems: Patient seen and examined by myself today in follow-up Patient remained intubated on ventilator Patient examined hemodialysis, blood pressure stable Objective vital signs Vital Sign Date Time Temp Pulse Resp B/P (MAP) Pulse Ox O2 Delivery O2 Flow Rate FiO2 06/30/24 10:27 78 23 116/64 (81) 100 40 06/30/24 09:30 99.3 210.7 06/30/24 08:00 Mechanical Ventilator+ Total Intake and Output 06/29/24 06/29/24 06/30/24 15:00 23:00 07:00 Intake Total 112.786 ml 164.290 ml 175.088 ml Output Total 0 ml 75 ml Balance 112.786 ml 164.290 ml 100.088 ml medications Current Medications Medications Dose Ordered Sig/Yousif Route Start Time Stop Time Status Last Admin Dose Admin Midazolam HCl 50 ml @ 1 mls/hr Q24H IV 05/25/24 06:30 05/29/24 09:11 5 MLS/HR Atorvastatin Calcium 40 mg HS NG 05/25/24 22:00 06/29/24 20:15 40 MG Ondansetron HCl 4 mg Q4HP PRN IV 05/25/24 10:45 Nitroglycerin 0.4 mg Q5MINP PRN SL 05/25/24 10:45 Bumetanide 2 mg BIDD IV 05/30/24 18:00 06/30/24 05:19 2 MG Aspirin 81 mg DAILY PO 06/10/24 10:00 06/29/24 09:24 81 MG Enteral Nutritional Formula 1,000 ml 40ML/HR GT 06/15/24 09:15 06/29/24 20:41 1,000 ML Albumin Human 100 ml @ 100 mls/hr PRN PRN IV 06/16/24 11:00 06/30/24 06:50 100 MLS/HR Sodium Chloride 10 ml QSHIFT@10,22 IV 06/17/24 22:00 06/29/24 20:16 10 ML Fentanyl Citrate 250 ml @ 2.5 mls/hr Q24H IV 06/17/24 17:30 06/28/24 18:41 7.5 MLS/HR Albuterol 2.5 mg Q6HR NEB 06/20/24 12:00 06/30/24 06:21 2.5 MG Ipratropium [place] 0.5 mg Q6HR NEB 06/20/24 12:00 06/30/24 06:21 0.5 MG Ceftriaxone Sodium/Dextrose 50 ml @ 50 mls/hr BID IV 06/21/24 22:00 06/29/24 20:15 50 MLS/HR Propofol 100 ml @ 4.263 mls/ hr [id number] IV 06/27/24 10:45 06/29/24 03:45 8.526 MLS/HR Vancomycin HCl 0 ml @ 0 mls/hr UD IV 06/27/24 23:45 Cancel Midodrine 10 mg TID@0600,1200,1800 PO 06/28/24 12:00 06/29/24 14:09 10 MG Lorazepam 1 mg ONCE PRN IV 06/28/24 11:30 07/03/24 11:29 Dexmedetomidine HCl 400 mcg/ Dextrose 100 ml @ 7.145 mls/ hr Q14H IV 06/28/24 15:00 06/29/24 16:19 7.145 MLS/HR Acetaminophen 650 mg Q6HP PRN PO 06/28/24 17:45 06/28/24 18:21 650 MG Norepinephrine Bitartrate 250 ml @ 3.75 mls/hr Q24H IV 06/29/24 05:30 06/29/24 06:05 3.75 MLS/HR Examination: LUNGS:Normal, CVS:Normal, MSK:Normal laboratory and microbiology Laboratory Tests 06/30/24 03:20 06/29/24 03:30 Test 06/29/24 03:30 Range/Units Serum Glucose 89 74-106 mg/dL Microbiology Date/Time Source Procedure Growth Status 06/28/24 00:38 Blood Blood Culture - Preliminary NO GROWTH AFTER 48 HOURS OF INCUBATION. Resulted 06/09/24 17:21 Urine - [place] Urine Culture - Final Complete 05/27/24 08:50 Nose MRSA Screen - Final Complete 05/25/24 06:50 Sputum Gram Stain - Final Complete 05/25/24 06:50 Respiratory Culture - Final Presumptive Tara albicans Complete Problem List/Assessment/Plan Problem List/Assessment/Plan CHANG superimposed on CKD secondary to ATN, FeNa > 2% , oligo anuric requiring intermittent HD Acute respiratory failure, intubated on ventilator Septic shock CHF, Ef 40% Morbid obesity Anemia of CKD Hypokalemia REC: Continue with UF 2-3 L as tolerated Epogen 46775 IV post hemodialysis IV pressors for BP support Albumin 25% p.r.n. hemodialysis IV Abx KCL replacement Will continue to follow Plan discussed with: Other (Nurse) My Orders My Orders Orders - MARIELA JONES MD Procedure Category Date Status Time Hemodialysis Orders ORDERS 06/30/24 Transmitted 07:00 Dialysis Nursing ROB 06/30/24 In Process Message 07:00 Document Fluid Input ROB 06/30/24 In Process And Outpu 07:00 Epoetin Rafael-Epbx PHA 06/30/24 In Process (Retacrit) 21:00 Dietary Evaluation Review Comments: 1) If GI is accessible consider Jevity 1.2 @ 70ml/hr x 24hr continuous feed goal rate as tolerated 2) If pt remains NPO >7 days consider TPN to meet at least 75% of estimated needs 3) Advance pt diet when medically feasible to a 2gm Sodium diet modified per [employer] recommendations 4) Continue current plan of care Expected Outcomes/Goals: 1) Pt to receive nutrition support within 7 days of NPO status 2) Pt diet to advance 3) F/U in 2-3 days MARIELA JONES MD Jun 30, 2024 10:51
[2024-06-30 16:54] LABS: Base Excess 4.8 mmol/L (-2.0-3.0)
--- NOTE | 2024-06-30 20:27 | DVHPN2 ---
Progress Note - Dictate Date Seen: Jun 30, 2024 Medical Necessity Reason Pt with a Central, PICC or Fol: No The following are medically ne: Central Line, Putnam Catheter Reason for putnam catheter: Strict I&O Subjective Patient seen and examined at bedside. On mechanical ventilator. S/p trach Overnight events reviewed. vital signs Vital Sign Date Time Temp Pulse Resp B/P (MAP) Pulse Ox O2 Delivery O2 Flow Rate FiO2 06/30/24 18:45 100.2 91 22 170/90 (116) 100 212.4 06/30/24 18:32 40 06/30/24 18:00 Mechanical Ventilator+ Total Intake and Output 06/29/24 06/29/24 06/30/24 15:00 23:00 07:00 Intake Total 112.786 ml 164.290 ml 275.088 ml Output Total 0 ml 75 ml Balance 112.786 ml 164.290 ml 200.088 ml medications Current Medications Medications Dose Ordered Sig/Yousif Route Start Time Stop Time Status Last Admin Dose Admin Midazolam HCl 50 ml @ 1 mls/hr Q24H IV 05/25/24 06:30 05/29/24 09:11 5 MLS/HR Atorvastatin Calcium 40 mg HS NG 05/25/24 22:00 06/29/24 20:15 40 MG Ondansetron HCl 4 mg Q4HP PRN IV 05/25/24 10:45 Nitroglycerin 0.4 mg Q5MINP PRN SL 05/25/24 10:45 Bumetanide 2 mg BIDD IV 05/30/24 18:00 06/30/24 17:21 2 MG Aspirin 81 mg DAILY PO 06/10/24 10:00 06/30/24 11:27 81 MG Enteral Nutritional Formula 1,000 ml 40ML/HR GT 06/15/24 09:15 06/29/24 20:41 1,000 ML Albumin Human 100 ml @ 100 mls/hr PRN PRN IV 06/16/24 11:00 06/30/24 06:50 100 MLS/HR Sodium Chloride 10 ml QSHIFT@10,22 IV 06/17/24 22:00 06/30/24 11:32 10 ML Fentanyl Citrate 250 ml @ 2.5 mls/hr Q24H IV 06/17/24 17:30 06/28/24 18:41 7.5 MLS/HR Albuterol 2.5 mg Q6HR NEB 06/20/24 12:00 06/30/24 18:32 2.5 MG Ipratropium [place] 0.5 mg Q6HR NEB 06/20/24 12:00 06/30/24 18:32 0.5 MG Ceftriaxone Sodium/Dextrose 50 ml @ 50 mls/hr BID IV 06/21/24 22:00 06/30/24 11:27 50 MLS/HR Propofol 100 ml @ 4.263 mls/ hr [id number] IV 06/27/24 10:45 06/29/24 03:45 8.526 MLS/HR Vancomycin HCl 0 ml @ 0 mls/hr UD IV 06/27/24 23:45 Cancel Midodrine 10 mg TID@0600,1200,1800 PO 06/28/24 12:00 06/30/24 11:27 10 MG Lorazepam 1 mg ONCE PRN IV 06/28/24 11:30 07/03/24 11:29 Dexmedetomidine HCl 400 mcg/ Dextrose 100 ml @ 7.145 mls/ hr Q14H IV 06/28/24 15:00 06/29/24 16:19 7.145 MLS/HR Acetaminophen 650 mg Q6HP PRN PO 06/28/24 17:45 06/30/24 14:16 650 MG Norepinephrine Bitartrate 250 ml @ 3.75 mls/hr Q24H IV 06/29/24 05:30 06/29/24 06:05 3.75 MLS/HR objective Gen.: Patient lying in bed in medical ICU. On mechanical ventilator. S/p trach Head: Normocephalic, atraumatic. Eyes: PERRLA. Ears: Normal external anatomy. Throat: Endotracheal tube and orogastric tube in place. Neck: Trach in place. Chest: Transmitted breath sounds bilaterally. Decreased air entry bilaterally. No wheezing. Bibasilar crackles. Cardiovascular: Positive S1, positive S2. Regular rate and rhythm. Abdomen: Positive bowel sounds in all 4 quadrants. Soft, nontender, nondistended. : Putnam in place. Normal external genitalia. Rectal: Deferred. Skin: Warm, dry. Intact. Extremities: 2+ radial pulses bilaterally. No lower extremity edema. Neuro: Off sedation. laboratory and microbiology Laboratory Tests 06/30/24 03:20 06/29/24 03:30 Test 06/29/24 03:30 Range/Units Serum Glucose 89 74-106 mg/dL Assessment/Plan Impression: Acute hypoxic respiratory failure On mechanical ventilator Septic shock Elevated troponin Acute kidney injury Lactic acidosis Metabolic acidosis Multifocal pneumonia, likely gram negative Pulmonary edema AE COPD Events: CPAP with PS 18, PEEP 5, FiO2 40%. S/p trach Trach care PEG tube in place Hemodialysis per Nephrology HD today - removed 3 liters Off Propofol Precedex drip. Fentanyl for analgesia Off pressors, hemodynamically stable. Continue bronchodilators Continue antibiotics Blood cultures show no growth for 48 hours. Midodrine TID for blood pressure. Tube feeds for nutritional support Wound care Monitor hemoglobin - 7.7 g/dL Blood pressure control Diurese to euvolemia w/ Bumex BID Monitor renal function Monitor electrolytes, supplement as necessary Hemodialysis per Nephrology Nephrology recs appreciated. Echo showed EF of 40%. SBT/KAREN Awaiting LTAC placement Poor prognosis, poor chance of meaningful recovery CT head revealed e/o multiple strokes. Neurology recommendations appreciated Labs and imaging reviewed. Rest of plan as noted below. Plan: s/p intubation on mechanical ventilator. On AC mode; RR 18, VT 500, PEEP 5, FiO2 40% Titrate FIO2 to keep O2 saturation above 90%. VAP bundle. Daily ABG and CXR while intubated Off sedation Continue bronchodilators. Continue antibiotics. F/u cultures. Pressors if necessary for hemodynamic support Titrate to keep mean arterial pressure greater than 65 mmHg. Cardiology recs appreciated. Monitor renal function Monitor electrolytes. Supplement as necessary. Monitor ins and outs. Nephrology recs appreciated. IV fluid hydration GI prophylaxis. DVT prophylaxis. Prognosis: Poor given patient's multiple co-morbidities. Condition: Critical Rest of plan per hospitalist and other consultants. A total of 35 minutes of critical care time was spent reviewing the patient record, examining the patient, making a diagnostic and therapeutic plan, discussing this plan with the medical personnel, following up on diagnostic studies and following the patient for clinical stability excluding any and all procedures. At least 50% of this time was spent in direct, [id number] contact. Thank you, MIRNA Stratton, for allowing me to participate in this patient's care. Further recommendations will depend on the patient's clinical course. Please do not hesitate to contact me if you have any questions or concerns. This medical document was created using an electronic medical record system with Leap computerized dictation system. Although these documentations are being carefully reviewed, there may still be some phonetic and typographical changes. The errors are purely typographical, due to imperfection on the software program, and do not reflect any compromise in the patient's medical care. Dietary Evaluation Review Comments: 1) If GI is accessible consider Jevity 1.2 @ 70ml/hr x 24hr continuous feed goal rate as tolerated 2) If pt remains NPO >7 days consider TPN to meet at least 75% of estimated needs 3) Advance pt diet when medically feasible to a 2gm Sodium diet modified per COTA recommendations 4) Continue current plan of care Expected Outcomes/Goals: 1) Pt to receive nutrition support within 7 days of NPO status 2) Pt diet to advance 3) F/U in 2-3 days Plan discussed with: Other (LUZMARIA Ambriz) Critical Care Time(min): 35 MELODY ELIZABETH MD Jun 30, 2024 20:27
--- NOTE | 2024-06-30 22:34 | DVHPN2 ---
Consult Progress Note Date Seen: Jun 29, 2024 Subjective Patient reports: Other (was able to come off profafol and now just on fentanyl and presidex , seems to tolerate without issues , not agitated , not yet waking , responds to sternal rub and is coughing suggesting gag reflex ) Objective vital signs Vital Sign Date Time Temp Pulse Resp B/P (MAP) Pulse Ox O2 Delivery O2 Flow Rate FiO2 06/30/24 22:00 91 18 174/89 (117) 100 40 06/30/24 18:45 100.2 212.4 06/30/24 18:00 Mechanical Ventilator+ Total Intake and Output 06/29/24 06/29/24 06/30/24 15:00 23:00 07:00 Intake Total 112.786 ml 164.290 ml 275.088 ml Output Total 0 ml 75 ml Balance 112.786 ml 164.290 ml 200.088 ml medications Current Medications Medications Dose Ordered Sig/Yousif Route Start Time Stop Time Status Last Admin Dose Admin Midazolam HCl 50 ml @ 1 mls/hr Q24H IV 05/25/24 06:30 05/29/24 09:11 5 MLS/HR Atorvastatin Calcium 40 mg HS NG 05/25/24 22:00 06/29/24 20:15 40 MG Ondansetron HCl 4 mg Q4HP PRN IV 05/25/24 10:45 Nitroglycerin 0.4 mg Q5MINP PRN SL 05/25/24 10:45 Bumetanide 2 mg BIDD IV 05/30/24 18:00 06/30/24 17:21 2 MG Aspirin 81 mg DAILY PO 06/10/24 10:00 06/30/24 11:27 81 MG Enteral Nutritional Formula 1,000 ml 40ML/HR GT 06/15/24 09:15 06/29/24 20:41 1,000 ML Albumin Human 100 ml @ 100 mls/hr PRN PRN IV 06/16/24 11:00 06/30/24 06:50 100 MLS/HR Sodium Chloride 10 ml QSHIFT@10,22 IV 06/17/24 22:00 06/30/24 11:32 10 ML Fentanyl Citrate 250 ml @ 2.5 mls/hr Q24H IV 06/17/24 17:30 06/30/24 21:48 2.5 MLS/HR Albuterol 2.5 mg Q6HR NEB 06/20/24 12:00 06/30/24 18:32 2.5 MG Ipratropium [place] 0.5 mg Q6HR NEB 06/20/24 12:00 06/30/24 18:32 0.5 MG Ceftriaxone Sodium/Dextrose 50 ml @ 50 mls/hr BID IV 06/21/24 22:00 06/30/24 11:27 50 MLS/HR Propofol 100 ml @ 4.263 mls/ hr [id number] IV 06/27/24 10:45 06/29/24 03:45 8.526 MLS/HR Vancomycin HCl 0 ml @ 0 mls/hr UD IV 06/27/24 23:45 Cancel Midodrine 10 mg TID@0600,1200,1800 PO 06/28/24 12:00 06/30/24 11:27 10 MG Lorazepam 1 mg ONCE PRN IV 06/28/24 11:30 07/03/24 11:29 Dexmedetomidine HCl 400 mcg/ Dextrose 100 ml @ 7.145 mls/ hr Q14H IV 06/28/24 15:00 06/29/24 16:19 7.145 MLS/HR Acetaminophen 650 mg Q6HP PRN PO 06/28/24 17:45 06/30/24 14:16 650 MG Norepinephrine Bitartrate 250 ml @ 3.75 mls/hr Q24H IV 06/29/24 05:30 06/29/24 06:05 3.75 MLS/HR General Appearance: Cooperative. Well developed. Well nourished. NAD. intubated and sedated . morbidly obease Head Exam: Normal inspection Neck Exam: Normal inspection. Non-tender. Normal alignment Pulmonary/Respiratory: Chest non-tender. Clear bilateral breath sounds. minimal vent with traces of pressures and unable to ween off vent due to mentating well of sedation but continues to have signs of agitation Cardiovascular/Chest: No murmurs. No JVD. Abdominal Exam: Normal bowel sounds. Soft. Nontender. No hepatosplenomegaly. 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 concern for septic picture , patient was needing ventilatory support , vasopressures , steroids . no known history of drungs or smoking . no recent medications. orginally treated with cefapine and doxycycline but eventually put on dialysis and found strep pneumonia in blood , likely lung origin . found to have vegitation in the antrium and anterior mitral leflet which was confirmed on SAMIR as well as mitral regurgitation . MRI of brain concerning for possible small focus of subacute ischemia and the right periventricular region likely consistent with septic embolie . SAMIR showed 3 mm vegitation on the intermitral leftlet . currently on ceftriaxone therapy for endocarditis. negative for any type of hepatitis , urine drig screen was negative . no signs of septic embolism problem list - strep pneumonia , bacteremia , endocarditis , septic shock , septic emboli to brain , pneumonia, mitral valve regurgitation , CHF , acute renal failure on dialysis 2/: Difficult to ween off vent and has been having improved airspace opacities on chest xray and since has been started on Ceftriaxone 2 grams Q12 , chest Ct was done and there was no finding to suggest septic emboli or persistent plural effusions that could be keeping patients from being off the ventilator . Continue Ceftriaxone 2 grams every 12 hours for 6 weeks via piccline . prognosis overall is poor , may proceed with tracheostomy . no contraindications from infectious disease of additional infectious work up needed 2: underwent dialysis and tolerated procedure without any issues . Patient has a clean tracheostomy placed today without any complications and site appears clean. Patient is currently on FIO2 50% on trach . Continue ceftriaxone 2 grams every 12 hours for 6 weeks . If patients clinical status allows would recommend patient follow up with infectious disease in 6 weeks to repeat echocardiogram as well as determine if additional therapy is needed for endocarditis. 2/6: S/P tracheostomy with no signs of intolerance and still vent dependant . plan will be to continue antibiotics for 6 weeks of ceftriaxone for endocarditis and to follow up with infectious disease clinic in 6 weeks 06/25: remains vent dependant and on 6 of levofed . FIO2 50% and pressure dependant . tolerating tracheostomy and tube feeds via NG tube and underwent dialysis yesterday without any issues . continue antibiotic plan 06/26: chest xray shows mild vascular congestion 06/27: patient is levofed dependant and unclear what is contributing to overall hypotension. spoke with nursing staff to pursue aggressive sedation to see if patient will wake up and if patient is awake would consider cardiology reevaluation for potential cardiothoracic surgery 06/28: elevated temps as high as 100.2 , possibly related to agitation during CPAP 06/29: Patient has been switched off sedation to see if she can tolerate CPAP and potentially be weaned off the vent Plan: - recommend aggressive weaning sedation to see if patient will awake and if patient is a candidate for cardiothoracic intervention of endocarditis as patient will likely be levofed dependant so long as patient has severe heart failure Continue ceftriaxone 2 grams every 12 hours for 6 weeks . If patients clinical status allows would recommend patient follow up with infectious disease in 6 weeks to repeat echocardiogram as well as determine if additional therapy is needed for endocarditis. -continue ceftriaxone 2 g twice daily, recommend for total six weeks for endocarditis. -reviewed CT scan of the chest. Bilateral lung base consolidation/atelectasis -patient underwent PEG tube and dialysis catheter , plan for tracheostomy as per primary care team -on hemodialysis -rest of the medical management as per primary care team and pulmonology nephrology. Plan discussed with: Other Dietary Evaluation Review Comments: 1) If GI is accessible consider Jevity 1.2 @ 70ml/hr x 24hr continuous feed goal rate as tolerated 2) If pt remains NPO >7 days consider TPN to meet at least 75% of estimated needs 3) Advance pt diet when medically feasible to a 2gm Sodium diet modified per [employer] recommendations 4) Continue current plan of care Expected Outcomes/Goals: 1) Pt to receive nutrition support within 7 days of NPO status 2) Pt diet to advance 3) F/U in 2-3 days JOSH VERNON MD Jun 30, 2024 22:34
[2024-06-30] MEDS: EPOETIN ALFA-EPBX 10,000 UNIT/1ML VIAL SC ONE (22:44)
[2024-06-30] MEDS: LABETALOL HCL 20 MG/4 ML VL IV ONE (23:55)
[2024-07-01] VITALS (110 sets, daily range): BP systolic 84–193; BP diastolic 45–113; PULSE 75–108; RESP 13–32; TEMP 98.9–100.6; O2SAT 78–100
[2024-07-01 03:24] LABS: Basophils # (auto) 0 10 ^3/uL (0-0.2); Basophils % (auto) 0.5 % (0.0-2.0); Eosinophils # (auto) 0.2 10 ^3/uL (0-0.8); Neutrophils # (auto) 3.7 10 ^3/uL (1.6-8.6); Nucleated Red Blood Cells % 0.3 %; White Blood Cell 6.2 10^3/uL (4.4-10.8)
[2024-07-01 03:31] LABS: Eosinophils % (auto) 2.6 % (0.0-7.0); Lymphocytes # (auto) 1.2 10 ^3/uL (0.4-5.4); Lymphocytes % (auto) 19.9 % (10.0-50.0); Mean Corpuscular Hgb Conc. 33.3 g/dL (32.0-36.0); Mean Corpuscular Volume 89.8 fL (80.0-100.0); Monocytes % (auto) 16.7 % (0.0-12.0); Neutrophils % (auto) 60.3 % (37.0-80.0); Platelet Count (auto) 179 10^3/uL (140-450); Red Blood Cells 2.67 10^6/uL (4.0-5.20); Red Cell Distribution Width 15.8 % (11.8-14.3)
[2024-07-01] MEDS: hydrALAZINE HCL 20 MG/ML VL IV ONE (04:55)
--- NOTE | 2024-07-01 08:07 | DVHPN2 ---
Subjective Patient encephalopathic Reviewed: Care Plan, H&P, Labs, Medications, Previous Orders, Radiology, Other (Consultations) Changes from previous H/P or p: No Changes General: Per HPI Objective Vitals Vital Signs Date Time Temp Pulse Resp B/P (MAP) Pulse Ox O2 Delivery O2 Flow Rate FiO2 07/01/24 06:45 100.2 92 21 127/70 (89) 96 212.4 07/01/24 06:06 40 07/01/24 05:52 Mechanical Ventilator+ Intake/Output Intake and Output 07/01/24 07:00 Intake Total 361.32954 ml Output Total 3027 ml Balance -2665.93696 ml Intake Oral 30 ml IV Total 310.29658 ml Tube Feeding 21 ml Output Urine Total 27 ml Other 3000 ml General Appearance: Alert, No acute distress HEENT: Atraumatic, Other (Tracheostomy) Neck: Other (Tracheostomy) Lungs: Other (MV sounds) Chest/Breasts: Other (HD catheter ) Cardiovascular: Regular rate, Normal S1, Normal S2 Abdomen: Other (Decreased bowel sounds; G-tube in place) Genitourinary: Other ([place]) Neuro: Other (Sedated) Skin: Dry, Intact Psych/Mental Status: Other (Sedated) Medications Current Medications Medications Dose Ordered Sig/Yousif Route Start Time Stop Time Status Last Admin Dose Admin Midazolam HCl 50 ml @ 1 mls/hr Q24H IV 05/25/24 06:30 05/29/24 09:11 5 MLS/HR Atorvastatin Calcium 40 mg HS NG 05/25/24 22:00 06/30/24 22:46 40 MG Ondansetron HCl 4 mg Q4HP PRN IV 05/25/24 10:45 Nitroglycerin 0.4 mg Q5MINP PRN SL 05/25/24 10:45 Bumetanide 2 mg BIDD IV 05/30/24 18:00 07/01/24 06:04 2 MG Aspirin 81 mg DAILY PO 06/10/24 10:00 07/01/24 07:29 81 MG Enteral Nutritional Formula 1,000 ml 40ML/HR GT 06/15/24 09:15 06/29/24 20:41 1,000 ML Albumin Human 100 ml @ 100 mls/hr PRN PRN IV 06/16/24 11:00 06/30/24 06:50 100 MLS/HR Sodium Chloride 10 ml QSHIFT@10,22 IV 06/17/24 22:00 07/01/24 07:13 10 ML Fentanyl Citrate 250 ml @ 2.5 mls/hr Q24H IV 06/17/24 17:30 06/30/24 21:48 2.5 MLS/HR Albuterol 2.5 mg Q6HR NEB 06/20/24 12:00 07/01/24 06:06 2.5 MG Ipratropium [place] 0.5 mg Q6HR NEB 06/20/24 12:00 07/01/24 06:06 0.5 MG Ceftriaxone Sodium/Dextrose 50 ml @ 50 mls/hr BID IV 06/21/24 22:00 07/01/24 07:29 50 MLS/HR Propofol 100 ml @ 4.263 mls/ hr [id number] IV 06/27/24 10:45 07/01/24 06:08 4.263 MLS/HR Vancomycin HCl 0 ml @ 0 mls/hr UD IV 06/27/24 23:45 Cancel Midodrine 10 mg TID@0600,1200,1800 PO 06/28/24 12:00 06/30/24 11:27 10 MG Lorazepam 1 mg ONCE PRN IV 06/28/24 11:30 07/03/24 11:29 Dexmedetomidine HCl 400 mcg/ Dextrose 100 ml @ 7.145 mls/ hr Q14H IV 06/28/24 15:00 06/29/24 16:19 7.145 MLS/HR Acetaminophen 650 mg Q6HP PRN PO 06/28/24 17:45 06/30/24 14:16 650 MG Norepinephrine Bitartrate 250 ml @ 3.75 mls/hr Q24H IV 06/29/24 05:30 06/29/24 06:05 3.75 MLS/HR Laboratory Results Laboratory Tests 06/29/24 03:30 07/01/24 02:50 Urinalysis Test 05/25/24 08:30 05/28/24 01:30 Urine Color Yellow (Yellow) Urine Clarity Clear (Clear) Urine pH 7.5 (5.0-9.0) Urine Specific [place] 1.013 (1.001-1.035) Urine Protein 2+ (Negative) H Urine Ketones Negative (Negative) Urine Blood Negative /uL (Negative) Urine Nitrite Negative (Negative) Urine Bilirubin Negative (Negative) Urine Urobilinogen 8 mg/dL (Negative) H Urine Leukocyte Esterase Negative /uL (Negative) Urine RBC 5 /hpf (0 - 4) Urine WBC 1 /hpf (0 - 5) Urine Squamous Epithelial Cells Few /hpf (<5) Urine Bacteria None seen /hpf (None Seen) Urine Glucose Normal mg/dL (Normal) Urine Creatinine 248.25 mg/dL (30.0-125.0) H Urine Sodium 27 mmol/L (40-220) L Urine Total Protein 293.2 mg/dL (1-14) H Blood Gas Results Test 06/30/24 11:49 Arterial Blood pH 7.576 (7.350-7.450) FiO2 % 40.0 Microbiology Microbiology Date/Time Source Procedure Growth Status 06/28/24 00:38 Blood Blood Culture - Preliminary NO GROWTH AFTER 72 HOURS OF INCUBATION. Resulted 06/09/24 17:21 Urine - [place] Urine Culture - Final Complete 05/27/24 08:50 Nose MRSA Screen - Final Complete 05/25/24 06:50 Sputum Gram Stain - Final Complete 05/25/24 06:50 Respiratory Culture - Final Presumptive Tara albicans Complete Labs and/or images reviewed: Labs reviewed by me, Image(s) reviewed by me Assessment/Plan Assessment/Plan Impression: -severe sepsis with shock , Streptococcus pneumoniae -probable community-acquired pneumonia with Gram-positive cocci -sepsis with Gram-positive cocci -acute hypoxic respiratory failure with mechanical ventilation -obesity -acute kidney injury, anuric -NSTEMI, probably type 2 -hypoalbuminemia -? Angioedema on resolved -respiratory alkalosis -multifocal CVA -endocarditis Plan: Events: Patient had episode of high pressuring with ventilator as while in his acute hypoxia. Patient also now hypertensive. -repeat ABG and chest x-ray this a.m. -stop midodrine -bronchodilators -antibiotic therapy per Infectious Disease -ventilator settings per car tester -nephrology consultation: HD -PUD, DVT prophylaxis -social service consultation. Patient was stable for LTAC placement. Long discussion made with the patient's son, Jc yesterday. Critical care time spent with patient discussing and formulating plan of care: 40 minutes. This does not include time spent performing procedures. This medical document was created using an electronic medical record system with Dragon computerized dictation system. Although this document has been carefully reviewed, there may still be some phonetic and typographical errors. These areas are purely typographical due to imperfections of the software programs, and do not reflect any compromise in the patient's medical care. Plan discussed with: Patient, Other (RN) My Orders Orders - OMAR PARK NP Procedure Category Date Status Time Communication Order ORDERS 06/30/24 Transmitted 10:10 Cpap/Sed Vacation Med ORDERS 06/30/24 Transmitted Weaning 10:10 Cpap Trial For Am ORDERS 06/30/24 Transmitted 10:10 Cpap Trial For Am ORDERS 07/01/24 Transmitted 07:03 Cpap/Sed Vacation Med ORDERS 07/01/24 Transmitted Weaning 07:03 Chest Xray 1 View XY 07/01/24 Logged 07:52 Abg W/ Co-Ox RT 07/01/24 Verified 08:04 Date of Service: Jul 01, 2024 Billing Provider: OMAR PARK NP Common Visit Codes: [id number] CARE 30-74 MIN OMAR PARK NP Jul 01, 2024 08:07
[2024-07-01 09:16] LABS: Base Excess 2.2 mmol/L (-2.0-3.0)
--- NOTE | 2024-07-01 09:18 | DVHPN2 ---
Progress Note Date Seen: Jul 01, 2024 Medical Necessity Reason Pt with a Central, PICC or Fol: No The following are medically ne: Central Line, Putnam Catheter Reason for putnam catheter: Strict I&O Subjective Review of Systems: RESPIRATORY:Abnormal Other Systems: Patient seen and examined by myself today in follow-up Patient trached on the ventilator Objective vital signs Vital Sign Date Time Temp Pulse Resp B/P (MAP) Pulse Ox O2 Delivery O2 Flow Rate FiO2 07/01/24 08:45 93 21 147/80 98 40 07/01/24 08:15 100.6 213.1 07/01/24 08:00 Mechanical Ventilator+ Total Intake and Output 06/30/24 06/30/24 07/01/24 15:00 23:00 07:00 Intake Total 92.870 ml 55.625 ml 212.18861 ml Output Total 3020 ml 7 ml Balance 92.870 ml -2964.375 ml 205.01942 ml medications Current Medications Medications Dose Ordered Sig/Yousif Route Start Time Stop Time Status Last Admin Dose Admin Midazolam HCl 50 ml @ 1 mls/hr Q24H IV 05/25/24 06:30 05/29/24 09:11 5 MLS/HR Atorvastatin Calcium 40 mg HS NG 05/25/24 22:00 06/30/24 22:46 40 MG Ondansetron HCl 4 mg Q4HP PRN IV 05/25/24 10:45 Nitroglycerin 0.4 mg Q5MINP PRN SL 05/25/24 10:45 Bumetanide 2 mg BIDD IV 05/30/24 18:00 07/01/24 06:04 2 MG Aspirin 81 mg DAILY PO 06/10/24 10:00 07/01/24 07:29 81 MG Enteral Nutritional Formula 1,000 ml 40ML/HR GT 06/15/24 09:15 06/29/24 20:41 1,000 ML Albumin Human 100 ml @ 100 mls/hr PRN PRN IV 06/16/24 11:00 06/30/24 06:50 100 MLS/HR Sodium Chloride 10 ml QSHIFT@10,22 IV 06/17/24 22:00 07/01/24 07:13 10 ML Fentanyl Citrate 250 ml @ 2.5 mls/hr Q24H IV 06/17/24 17:30 06/30/24 21:48 2.5 MLS/HR Albuterol 2.5 mg Q6HR NEB 06/20/24 12:00 07/01/24 06:06 2.5 MG Ipratropium [place] 0.5 mg Q6HR NEB 06/20/24 12:00 07/01/24 06:06 0.5 MG Ceftriaxone Sodium/Dextrose 50 ml @ 50 mls/hr BID IV 06/21/24 22:00 07/01/24 07:29 50 MLS/HR Propofol 100 ml @ 4.263 mls/ hr [id number] IV 06/27/24 10:45 07/01/24 06:08 4.263 MLS/HR Vancomycin HCl 0 ml @ 0 mls/hr UD IV 06/27/24 23:45 Cancel Lorazepam 1 mg ONCE PRN IV 06/28/24 11:30 07/03/24 11:29 Dexmedetomidine HCl 400 mcg/ Dextrose 100 ml @ 7.145 mls/ hr Q14H IV 06/28/24 15:00 06/29/24 16:19 7.145 MLS/HR Acetaminophen 650 mg Q6HP PRN PO 06/28/24 17:45 06/30/24 14:16 650 MG Norepinephrine Bitartrate 250 ml @ 3.75 mls/hr Q24H IV 06/29/24 05:30 06/29/24 06:05 3.75 MLS/HR Examination: LUNGS:Normal, CVS:Normal, MSK:Normal laboratory and microbiology Laboratory Tests 07/01/24 02:50 06/29/24 03:30 Test 06/29/24 03:30 Range/Units Serum Glucose 89 74-106 mg/dL Microbiology Date/Time Source Procedure Growth Status 06/28/24 00:38 Blood Blood Culture - Preliminary NO GROWTH AFTER 72 HOURS OF INCUBATION. Resulted 06/09/24 17:21 Urine - [place] Urine Culture - Final Complete 05/27/24 08:50 Nose MRSA Screen - Final Complete 05/25/24 06:50 Sputum Gram Stain - Final Complete 05/25/24 06:50 Respiratory Culture - Final Presumptive Tara albicans Complete Problem List/Assessment/Plan Problem List/Assessment/Plan CHANG superimposed on CKD secondary to ATN, FeNa > 2% , oligo anuric requiring intermittent HD Acute respiratory failure, intubated on ventilator Vancomycin toxicity Septic shock CHF, Ef 40% Morbid obesity Anemia of CKD Hypokalemia REC: Hemodialysis tomorrow Epogen [address] IV post hemodialysis IV pressors for BP support Albumin 25% p.r.n. hemodialysis IV Abx DC vancomycin if okay with ID KCL replacement Will continue to follow Plan discussed with: Other (Nurse) Dietary Evaluation Review Comments: 1) If GI is accessible consider Jevity 1.2 @ 70ml/hr x 24hr continuous feed goal rate as tolerated 2) If pt remains NPO >7 days consider TPN to meet at least 75% of estimated needs 3) Advance pt diet when medically feasible to a 2gm Sodium diet modified per [employer] recommendations 4) Continue current plan of care Expected Outcomes/Goals: 1) Pt to receive nutrition support within 7 days of NPO status 2) Pt diet to advance 3) F/U in 2-3 days MARIELA JONES MD Jul 01, 2024 09:18
--- NOTE | 2024-07-01 09:39 | DVH ---
EXAM: XY CHEST XRAY 1 VIEW Indication: Pneumonia Technique: Single frontal view of the chest was obtained Comparison: XY CHEST XRAY 1 VIEW on DOS: 06/28/24, XY CHEST XRAY 1 VIEW on DOS: 06/26/24, XY CHEST XRAY 1 VIEW on DOS: 06/24/24, XY CHEST PORTABLE on DOS: 06/23/24, XY CHEST XRAY 1 VIEW on DOS: 06/22/24 FINDINGS: Lines and Tubes: Tracheostomy tube is visualized. Right internal jugular central venous catheter pro jects over the right atrium. Lungs: Bibasilar opacities. Pleura: Possible trace right right pleural effusion. No pneumothorax. Cardiomediastinal contours: Cardiomegaly. Bones: No acute osseous abnormality. IMPRESSION: Cardiomegaly with bibasilar opacities and pulmonary vascular congestion. Possible trace right pleural effusion.
--- NOTE | 2024-07-01 11:33 | DVH ---
Bilateral Chest Sonogram Date: 07/01/2024 10:37 AM Clinical history: rule out right pleural effusion Technique: Limited sonographic evaluation of the bilateral chest was performed to evaluate for pleur al effusion. Finding/Impression: There is a trace left pleural effusion visualized which is insufficient fluid for performance of thor acentesis. No right pleural effusion.
--- NOTE | 2024-07-01 12:30 | DVHPN2 ---
Consult Progress Note Date Seen: Jun 30, 2024 Subjective Patient reports: Other (tolerated dialysis today and is less volume overloaded in the extremities with no edema ) Objective vital signs Vital Sign Date Time Temp Pulse Resp B/P (MAP) Pulse Ox O2 Delivery O2 Flow Rate FiO2 07/01/24 11:57 40 07/01/24 11:57 77 07/01/24 11:57 18 100 Mechanical Ventilator+ 07/01/24 11:45 99.5 134/74 (94) 211.1 Total Intake and Output 06/30/24 06/30/24 07/01/24 15:00 23:00 07:00 Intake Total 92.870 ml 55.625 ml 225.01622 ml Output Total 3020 ml 7 ml Balance 92.870 ml -2964.375 ml 218.97287 ml medications Current Medications Medications Dose Ordered Sig/Yousif Route Start Time Stop Time Status Last Admin Dose Admin Midazolam HCl 50 ml @ 1 mls/hr Q24H IV 05/25/24 06:30 05/29/24 09:11 5 MLS/HR Atorvastatin Calcium 40 mg HS NG 05/25/24 22:00 06/30/24 22:46 40 MG Ondansetron HCl 4 mg Q4HP PRN IV 05/25/24 10:45 Nitroglycerin 0.4 mg Q5MINP PRN SL 05/25/24 10:45 Bumetanide 2 mg BIDD IV 05/30/24 18:00 07/01/24 06:04 2 MG Aspirin 81 mg DAILY PO 06/10/24 10:00 07/01/24 07:29 81 MG Enteral Nutritional Formula 1,000 ml 40ML/HR GT 06/15/24 09:15 06/29/24 20:41 1,000 ML Albumin Human 100 ml @ 100 mls/hr PRN PRN IV 06/16/24 11:00 06/30/24 06:50 100 MLS/HR Sodium Chloride 10 ml QSHIFT@10,22 IV 06/17/24 22:00 07/01/24 07:13 10 ML Fentanyl Citrate 250 ml @ 2.5 mls/hr Q24H IV 06/17/24 17:30 06/30/24 21:48 2.5 MLS/HR Albuterol 2.5 mg Q6HR NEB 06/20/24 12:00 07/01/24 11:39 2.5 MG Ipratropium [place] 0.5 mg Q6HR NEB 06/20/24 12:00 07/01/24 11:39 0.5 MG Ceftriaxone Sodium/Dextrose 50 ml @ 50 mls/hr BID IV 06/21/24 22:00 07/01/24 07:29 50 MLS/HR Propofol 100 ml @ 4.263 mls/ hr [id number] IV 06/27/24 10:45 07/01/24 06:08 4.263 MLS/HR Vancomycin HCl 0 ml @ 0 mls/hr UD IV 06/27/24 23:45 Cancel Lorazepam 1 mg ONCE PRN IV 06/28/24 11:30 07/03/24 11:29 Dexmedetomidine HCl 400 mcg/ Dextrose 100 ml @ 7.145 mls/ hr Q14H IV 06/28/24 15:00 06/29/24 16:19 7.145 MLS/HR Acetaminophen 650 mg Q6HP PRN PO 06/28/24 17:45 06/30/24 14:16 650 MG Norepinephrine Bitartrate 250 ml @ 3.75 mls/hr Q24H IV 06/29/24 05:30 06/29/24 06:05 3.75 MLS/HR General Appearance: Cooperative. Well developed. Well nourished. NAD. intubated and sedated . morbidly obease Head Exam: Normal inspection Neck Exam: Normal inspection. Non-tender. Normal alignment Pulmonary/Respiratory: Chest non-tender. Clear bilateral breath sounds. minimal vent with traces of pressures and unable to ween off vent due to mentating well of sedation but continues to have signs of agitation Cardiovascular/Chest: No murmurs. No JVD. Abdominal Exam: Normal bowel sounds. Soft. Nontender. No hepatosplenomegaly. 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 concern for septic picture , patient was needing ventilatory support , vasopressures , steroids . no known history of drungs or smoking . no recent medications. orginally treated with cefapine and doxycycline but eventually put on dialysis and found strep pneumonia in blood , likely lung origin . found to have vegitation in the antrium and anterior mitral leflet which was confirmed on SAMIR as well as mitral regurgitation . MRI of brain concerning for possible small focus of subacute ischemia and the right periventricular region likely consistent with septic embolie . SAMIR showed 3 mm vegitation on the intermitral leftlet . currently on ceftriaxone therapy for endocarditis. negative for any type of hepatitis , urine drig screen was negative . no signs of septic embolism problem list - strep pneumonia , bacteremia , endocarditis , septic shock , septic emboli to brain , pneumonia, mitral valve regurgitation , CHF , acute renal failure on dialysis 2/: Difficult to ween off vent and has been having improved airspace opacities on chest xray and since has been started on Ceftriaxone 2 grams Q12 , chest Ct was done and there was no finding to suggest septic emboli or persistent plural effusions that could be keeping patients from being off the ventilator . Continue Ceftriaxone 2 grams every 12 hours for 6 weeks via piccline . prognosis overall is poor , may proceed with tracheostomy . no contraindications from infectious disease of additional infectious work up needed 2: underwent dialysis and tolerated procedure without any issues . Patient has a clean tracheostomy placed today without any complications and site appears clean. Patient is currently on FIO2 50% on trach . Continue ceftriaxone 2 grams every 12 hours for 6 weeks . If patients clinical status allows would recommend patient follow up with infectious disease in 6 weeks to repeat echocardiogram as well as determine if additional therapy is needed for endocarditis. 2: S/P tracheostomy with no signs of intolerance and still vent dependant . plan will be to continue antibiotics for 6 weeks of ceftriaxone for endocarditis and to follow up with infectious disease clinic in 6 weeks 2: remains vent dependant and on 6 of levofed . FIO2 50% and pressure dependant . tolerating tracheostomy and tube feeds via NG tube and underwent dialysis yesterday without any issues . continue antibiotic plan 06/26: chest xray shows mild vascular congestion 06/27: patient is levofed dependant and unclear what is contributing to overall hypotension. spoke with nursing staff to pursue aggressive sedation to see if patient will wake up and if patient is awake would consider cardiology reevaluation for potential cardiothoracic surgery 06/28: elevated temps as high as 100.2 , possibly related to agitation during CPAP 06/29: Patient has been switched off sedation to see if she can tolerate CPAP and potentially be weaned off the vent 06/30: MRI was done of the brain and shows asymmetrically decreased flow signal in the right M3 and M4 arterial branches compared to the left distal MCA arterial stenosis / occlusion is not excluded . CT chest was done and shows a bilateral lower lobe infiltrates slightly worse than previous , now a small left plural effusion Plan: - in light of worsening chest ct recommend getting a sputum culture - recommend aggressive weaning sedation to see if patient will awake and if patient is a candidate for cardiothoracic intervention of endocarditis as patient will likely be levofed dependant so long as patient has severe heart failure Continue ceftriaxone 2 grams every 12 hours for 6 weeks . If patients clinical status allows would recommend patient follow up with infectious disease in 6 weeks to repeat echocardiogram as well as determine if additional therapy is needed for endocarditis. -continue ceftriaxone 2 g twice daily, recommend for total six weeks for endocarditis. -reviewed CT scan of the chest. Bilateral lung base consolidation/atelectasis -patient underwent PEG tube and dialysis catheter , plan for tracheostomy as per primary care team -on hemodialysis -rest of the medical management as per primary care team and pulmonology nephrology. - prognosis is poor Plan discussed with: Other Dietary Evaluation Review Comments: 1) If GI is accessible consider Jevity 1.2 @ 70ml/hr x 24hr continuous feed goal rate as tolerated 2) If pt remains NPO >7 days consider TPN to meet at least 75% of estimated needs 3) Advance pt diet when medically feasible to a 2gm Sodium diet modified per [employer] recommendations 4) Continue current plan of care Expected Outcomes/Goals: 1) Pt to receive nutrition support within 7 days of NPO status 2) Pt diet to advance 3) F/U in 2-3 days JOSH VERNON MD Jul 01, 2024 12:30
[2024-07-01] MEDS: hydrALAZINE HCL 20 MG/ML VL IV PRN (13:33)
--- NOTE | 2024-07-01 13:56 | PEER ---
Peer to Peer Review Time DATE: 07/01/24 TIME: 13:54 Review and Recommendations: I had discussion with Dr Hernandez regards patient's condition. She agreed for pt to go to LTACH Decision Agreed to transfer to LTACH PATO CASTANEDA MD Jul 01, 2024 13:56
--- NOTE | 2024-07-01 14:00 | DVH ---
INDICATION: placement of putnam in bladder TECHNIQUE: Multiple real-time sonographic images of the abdomen were obtained. 13 images COMPARISON: None FINDINGS: Urine in the Putnam catheter tube and bag. Bladder and Putnam catheter could not be visualized in the p atient. This most likely secondary to patient's large body habitus. Bladder and Putnam was not visualized by ultrasound on 05/27/2024. IMPRESSION: 1. Putnam catheter and bladder not visualized and patient due to patient's body size. HS:Y
--- NOTE | 2024-07-01 22:02 | DVHPN2 ---
Progress Note - Dictate Date Seen: Jul 01, 2024 Medical Necessity Reason Pt with a Central, PICC or Fol: No The following are medically ne: Central Line, Putnam Catheter Reason for putnam catheter: Strict I&O Subjective Patient seen and examined at bedside. Sedated, on mechanical ventilator. S/p trach Overnight events reviewed. vital signs Vital Sign Date Time Temp Pulse Resp B/P (MAP) Pulse Ox O2 Delivery O2 Flow Rate FiO2 07/01/24 20:47 190/79 07/01/24 20:28 93 25 100 40 07/01/24 20:00 Mechanical Ventilator+ 07/01/24 17:00 99.4 99.4 Total Intake and Output 06/30/24 06/30/24 07/01/24 15:00 23:00 07:00 Intake Total 92.870 ml 55.625 ml 225.76784 ml Output Total 3020 ml 7 ml Balance 92.870 ml -2964.375 ml 218.41460 ml medications Current Medications Medications Dose Ordered Sig/Yousif Route Start Time Stop Time Status Last Admin Dose Admin Midazolam HCl 50 ml @ 1 mls/hr Q24H IV 05/25/24 06:30 05/29/24 09:11 5 MLS/HR Atorvastatin Calcium 40 mg HS NG 05/25/24 22:00 07/01/24 21:41 40 MG Ondansetron HCl 4 mg Q4HP PRN IV 05/25/24 10:45 Nitroglycerin 0.4 mg Q5MINP PRN SL 05/25/24 10:45 Bumetanide 2 mg BIDD IV 05/30/24 18:00 07/01/24 17:15 2 MG Aspirin 81 mg DAILY PO 06/10/24 10:00 07/01/24 07:29 81 MG Enteral Nutritional Formula 1,000 ml 40ML/HR GT 06/15/24 09:15 06/29/24 20:41 1,000 ML Albumin Human 100 ml @ 100 mls/hr PRN PRN IV 06/16/24 11:00 06/30/24 06:50 100 MLS/HR Sodium Chloride 10 ml QSHIFT@10,22 IV 06/17/24 22:00 07/01/24 21:42 10 ML Fentanyl Citrate 250 ml @ 2.5 mls/hr Q24H IV 06/17/24 17:30 06/30/24 21:48 2.5 MLS/HR Albuterol 2.5 mg Q6HR NEB 06/20/24 12:00 07/01/24 18:23 2.5 MG Ipratropium [place] 0.5 mg Q6HR NEB 06/20/24 12:00 07/01/24 18:23 0.5 MG Ceftriaxone Sodium/Dextrose 50 ml @ 50 mls/hr BID IV 06/21/24 22:00 07/01/24 21:41 50 MLS/HR Propofol 100 ml @ 4.263 mls/ hr [id number] IV 06/27/24 10:45 07/01/24 06:08 4.263 MLS/HR Vancomycin HCl 0 ml @ 0 mls/hr UD IV 06/27/24 23:45 Cancel Lorazepam 1 mg ONCE PRN IV 06/28/24 11:30 07/03/24 11:29 Dexmedetomidine HCl 400 mcg/ Dextrose 100 ml @ 7.145 mls/ hr Q14H IV 06/28/24 15:00 06/29/24 16:19 7.145 MLS/HR Acetaminophen 650 mg Q6HP PRN PO 06/28/24 17:45 06/30/24 14:16 650 MG Norepinephrine Bitartrate 250 ml @ 3.75 mls/hr Q24H IV 06/29/24 05:30 06/29/24 06:05 3.75 MLS/HR Hydralazine HCl 10 mg Q6HPRN PRN IV 07/01/24 13:15 07/01/24 20:47 10 MG objective Gen.: Patient lying in bed in medical ICU. Sedated, on mechanical ventilator. S/p trach Head: Normocephalic, atraumatic. Eyes: PERRLA. Ears: Normal external anatomy. Throat: Endotracheal tube and orogastric tube in place. Neck: Trach in place. Chest: Transmitted breath sounds bilaterally. Decreased air entry bilaterally. No wheezing. Bibasilar crackles. Cardiovascular: Positive S1, positive S2. Regular rate and rhythm. Abdomen: Positive bowel sounds in all 4 quadrants. Soft, nontender, nondistended. : Putnam in place. Normal external genitalia. Rectal: Deferred. Skin: Warm, dry. Intact. Extremities: 2+ radial pulses bilaterally. No lower extremity edema. Neuro: Sedated. laboratory and microbiology Laboratory Tests 07/01/24 02:50 06/29/24 03:30 Test 06/29/24 03:30 Range/Units Serum Glucose 89 74-106 mg/dL Assessment/Plan Impression: Acute hypoxic respiratory failure On mechanical ventilator Septic shock Elevated troponin Acute kidney injury Lactic acidosis Metabolic acidosis Multifocal pneumonia, likely gram negative Pulmonary edema AE COPD Events: Remains on vent support On AC mode; RR 18, VT 500, PEEP 5, FiO2 40% S/p trach Trach care PEG tube in place Sedated on Propofol - sedated due to peak pressures. Hemodialysis per Nephrology HD yesterday - removed 3 liters Off pressors, hemodynamically stable. Continue bronchodilators Continue antibiotics Blood cultures show no growth for 72 hours. Tube feeds for nutritional support Wound care Monitor hemoglobin, trending up - 8.0 g/dL Blood pressure control Diurese to euvolemia w/ Bumex BID Monitor renal function Monitor electrolytes, supplement as necessary Hemodialysis per Nephrology Nephrology recs appreciated. Echo showed EF of 40%. Plan to taper sedation SBT/KAREN Awaiting LTAC placement Poor prognosis, poor chance of meaningful recovery CT head revealed e/o multiple strokes. Neurology recommendations appreciated Labs and imaging reviewed. Rest of plan as noted below. Plan: s/p intubation on mechanical ventilator. On AC mode; RR 18, VT 500, PEEP 5, FiO2 40% Titrate FIO2 to keep O2 saturation above 90%. VAP bundle. Daily ABG and CXR while intubated Sedated on Propofol Continue bronchodilators. Continue antibiotics. F/u cultures. Pressors if necessary for hemodynamic support Titrate to keep mean arterial pressure greater than 65 mmHg. Cardiology recs appreciated. Monitor renal function Monitor electrolytes. Supplement as necessary. Monitor ins and outs. Nephrology recs appreciated. IV fluid hydration GI prophylaxis. DVT prophylaxis. Prognosis: Poor given patient's multiple co-morbidities. Condition: Critical Rest of plan per hospitalist and other consultants. A total of 35 minutes of critical care time was spent reviewing the patient record, examining the patient, making a diagnostic and therapeutic plan, discussing this plan with the medical personnel, following up on diagnostic studies and following the patient for clinical stability excluding any and all procedures. At least 50% of this time was spent in direct, [id number] contact. Thank you, MIRNA Stratton, for allowing me to participate in this patient's care. Further recommendations will depend on the patient's clinical course. Please do not hesitate to contact me if you have any questions or concerns. This medical document was created using an electronic medical record system with [employer] dictation system. Although these documentations are being carefully reviewed, there may still be some phonetic and typographical changes. The errors are purely typographical, due to imperfection on the software program, and do not reflect any compromise in the patient's medical care. Dietary Evaluation Review Comments: 1) If GI is accessible consider Jevity 1.2 @ 70ml/hr x 24hr continuous feed goal rate as tolerated 2) If pt remains NPO >7 days consider TPN to meet at least 75% of estimated needs 3) Advance pt diet when medically feasible to a 2gm Sodium diet modified per [employer] recommendations 4) Continue current plan of care Expected Outcomes/Goals: 1) Pt to receive nutrition support within 7 days of NPO status 2) Pt diet to advance 3) F/U in 2-3 days Plan discussed with: Other (LUZMARIA Mac) Critical Care Time(min): 35 MELODY ELIZABETH MD Jul 01, 2024 22:02
[2024-07-02] VITALS (95 sets, daily range): BP systolic 130–216; BP diastolic 70–105; PULSE 76–105; RESP 12–34; TEMP 97.6–99.5; O2SAT 95–100
[2024-07-02] MEDS: cloNIDine HCL 0.1 MG TAB PO PRN (01:10)
[2024-07-02] MEDS: cloNIDine HCL 0.1 MG TAB ONE (01:11)
[2024-07-02] MEDS: SODIUM CHL 0.9% 1000 ML BAG XX ONE (07:00)
[2024-07-02 07:54] LABS: Albumin 3.7 g/dL (3.2-4.8); Alkaline Phosphatase 109 U/L (46-116); Anion Gap 15 (5-15); BUN/Creatinine Ratio 7.5 (10.0-20.0); Bilirubin, Total 0.3 mg/dL (0.2-1.0); Calcium 9.7 mg/dL (8.7-10.4); Carbon Dioxide 25 mmol/L (20-31); Glucose 98 mg/dL (74-106); Magnesium 2.4 mg/dL (1.6-2.6); Sodium 137 mmol/L (136-145)
[2024-07-02 07:57] LABS: Basophils # (auto) 0 10 ^3/uL (0-0.2); Basophils % (auto) 0.6 % (0.0-2.0); Eosinophils # (auto) 0.1 10 ^3/uL (0-0.8); Eosinophils % (auto) 1.7 % (0.0-7.0); Hematocrit 25.6 % (36.0-46.0); Hemoglobin 8.4 g/dL (12.2-16.2); Lymphocytes # (auto) 0.9 10 ^3/uL (0.4-5.4); Lymphocytes % (auto) 13.9 % (10.0-50.0); Mean Corpuscular Hemoglobin 29.5 pg (28.0-32.0); Mean Corpuscular Hgb Conc. 32.9 g/dL (32.0-36.0); Mean Corpuscular Volume 89.7 fL (80.0-100.0); Monocytes # (auto) 0.9 10 ^3/uL (0-1.3); Monocytes % (auto) 13.5 % (0.0-12.0); Neutrophils # (auto) 4.7 10 ^3/uL (1.6-8.6); Neutrophils % (auto) 70.3 % (37.0-80.0); Nucleated Red Blood Cells % 0.2 %; Platelet Count (auto) 215 10^3/uL (140-450); Red Blood Cells 2.85 10^6/uL (4.0-5.20); Red Cell Distribution Width 15.9 % (11.8-14.3); White Blood Cell 6.7 10^3/uL (4.4-10.8)
[2024-07-02 07:58] LABS: Alanine Aminotransferase 54 U/L (7-40); Aspartate Aminotransferase 42 U/L (13-40); Blood Urea Nitrogen 41 mg/dL (9-23); Chloride 97 mmol/L (98-107)
[2024-07-02] MEDS: CARVEDILOL 3.125 MG TAB PO SCH (10:25)
--- NOTE | 2024-07-02 10:29 | DVHPN2 ---
Subjective Patient encephalopathic Reviewed: Care Plan, H&P, Labs, Medications, Previous Orders, Radiology, Other (Consultations) Changes from previous H/P or p: No Changes General: Per HPI Objective Vitals Vital Signs Date Time Temp Pulse Resp B/P (MAP) Pulse Ox O2 Delivery O2 Flow Rate FiO2 07/02/24 10:25 98 161/89 07/02/24 09:33 25 100 Mechanical Ventilator+ 40 40 07/02/24 07:45 97.6 97.6 Intake/Output Intake and Output 07/02/24 07:00 Intake Total 285.446 ml Output Total 75 ml Balance 210.446 ml Intake Oral 170 ml IV Total 115.446 ml Output Urine Total 75 ml # Bowel Movements 1 General Appearance: Alert, Oriented X3, No acute distress HEENT: Atraumatic, Other (Tracheostomy) Neck: Other (Tracheostomy) Lungs: Other (MV sounds) Chest/Breasts: Other (HD catheter ) Cardiovascular: Regular rate, Normal S1, Normal S2 Abdomen: Other (Decreased bowel sounds; G-tube in place) Genitourinary: Other ([place]) Neuro: Other (Sedated) Skin: Dry, Intact Psych/Mental Status: Other (Sedated) Medications Current Medications Medications Dose Ordered Sig/Yousif Route Start Time Stop Time Status Last Admin Dose Admin Midazolam HCl 50 ml @ 1 mls/hr Q24H IV 05/25/24 06:30 05/29/24 09:11 5 MLS/HR Atorvastatin Calcium 40 mg HS NG 05/25/24 22:00 07/01/24 21:41 40 MG Ondansetron HCl 4 mg Q4HP PRN IV 05/25/24 10:45 Nitroglycerin 0.4 mg Q5MINP PRN SL 05/25/24 10:45 Bumetanide 2 mg BIDD IV 05/30/24 18:00 07/02/24 06:03 2 MG Aspirin 81 mg DAILY PO 06/10/24 10:00 07/02/24 07:41 81 MG Enteral Nutritional Formula 1,000 ml 40ML/HR GT 06/15/24 09:15 06/29/24 20:41 1,000 ML Albumin Human 100 ml @ 100 mls/hr PRN PRN IV 06/16/24 11:00 06/30/24 06:50 100 MLS/HR Sodium Chloride 10 ml QSHIFT@10,22 IV 06/17/24 22:00 07/02/24 07:00 10 ML Fentanyl Citrate 250 ml @ 2.5 mls/hr Q24H IV 06/17/24 17:30 06/30/24 21:48 2.5 MLS/HR Albuterol 2.5 mg Q6HR NEB 06/20/24 12:00 07/02/24 06:40 2.5 MG Ipratropium [place] 0.5 mg Q6HR NEB 06/20/24 12:00 07/02/24 06:40 0.5 MG Ceftriaxone Sodium/Dextrose 50 ml @ 50 mls/hr BID IV 06/21/24 22:00 07/01/24 21:41 50 MLS/HR Propofol 100 ml @ 4.263 mls/ hr [id number] IV 06/27/24 10:45 07/01/24 06:08 4.263 MLS/HR Vancomycin HCl 0 ml @ 0 mls/hr UD IV 06/27/24 23:45 Cancel Lorazepam 1 mg ONCE PRN IV 06/28/24 11:30 07/03/24 11:29 Dexmedetomidine HCl 400 mcg/ Dextrose 100 ml @ 7.145 mls/ hr Q14H IV 06/28/24 15:00 06/29/24 16:19 7.145 MLS/HR Acetaminophen 650 mg Q6HP PRN PO 06/28/24 17:45 06/30/24 14:16 650 MG Norepinephrine Bitartrate 250 ml @ 3.75 mls/hr Q24H IV 06/29/24 05:30 06/29/24 06:05 3.75 MLS/HR Hydralazine HCl 10 mg Q6HPRN PRN IV 07/01/24 13:15 07/01/24 20:47 10 MG Clonidine HCl 0.2 mg Q4HPRN PRN PO 07/02/24 01:15 07/02/24 05:17 0.2 MG Carvedilol 3.125 mg Q12HR PO 07/02/24 10:00 07/02/24 10:25 3.125 MG Hydralazine HCl 10 mg Q8HR GT 07/02/24 14:00 Laboratory Results Laboratory Tests 07/02/24 07:19 Chemistry Test 07/02/24 07:19 Albumin 3.7 g/dL (3.2-4.8) Calcium Level 9.7 mg/dL (8.7-10.4) Magnesium Level 2.4 mg/dL (1.6-2.6) Total Protein 7.0 g/dL (5.7-8.2) LFT Test 07/02/24 07:19 Alanine Aminotransferase (ALT) 54 U/L (7-40) H Alkaline Phosphatase 109 U/L (46-116) Aspartate Amino Transferase (AST) 42 U/L (13-40) H Total Bilirubin 0.3 mg/dL (0.2-1.0) Urinalysis Test 05/25/24 08:30 05/28/24 01:30 Urine Color Yellow (Yellow) Urine Clarity Clear (Clear) Urine pH 7.5 (5.0-9.0) Urine Specific [place] 1.013 (1.001-1.035) Urine Protein 2+ (Negative) H Urine Ketones Negative (Negative) Urine Blood Negative /uL (Negative) Urine Nitrite Negative (Negative) Urine Bilirubin Negative (Negative) Urine Urobilinogen 8 mg/dL (Negative) H Urine Leukocyte Esterase Negative /uL (Negative) Urine RBC 5 /hpf (0 - 4) Urine WBC 1 /hpf (0 - 5) Urine Squamous Epithelial Cells Few /hpf (<5) Urine Bacteria None seen /hpf (None Seen) Urine Glucose Normal mg/dL (Normal) Urine Creatinine 248.25 mg/dL (30.0-125.0) H Urine Sodium 27 mmol/L (40-220) L Urine Total Protein 293.2 mg/dL (1-14) H Microbiology Microbiology Date/Time Source Procedure Growth Status 06/28/24 00:38 Blood Blood Culture - Preliminary NO GROWTH AFTER 72 HOURS OF INCUBATION. Resulted 06/09/24 17:21 Urine - [place] Urine Culture - Final Complete 05/27/24 08:50 Nose MRSA Screen - Final Complete 05/25/24 06:50 Sputum Gram Stain - Final Complete 05/25/24 06:50 Respiratory Culture - Final Presumptive Tara albicans Complete Labs and/or images reviewed: Labs reviewed by me, Image(s) reviewed by me Assessment/Plan Assessment/Plan Impression: -severe sepsis with shock , Streptococcus pneumoniae -probable community-acquired pneumonia with Gram-positive cocci -sepsis with Gram-positive cocci -acute hypoxic respiratory failure with mechanical ventilation -obesity -acute kidney injury, anuric -NSTEMI, probably type 2 -hypoalbuminemia -? Angioedema on resolved -respiratory alkalosis -multifocal CVA -endocarditis Plan: Events: Patient currently receiving hemodialysis. Now hypertensive. Restart antihypertensives. Discussion made with [place] Non Destructive Testing Specialist who now is improving patient for LTAC. Order placed with social staff worker. -repeat ABG and chest x-ray this a.m. -restart beta-dulce therapy, afterload reduction with hydralazine -bronchodilators -antibiotic therapy per Infectious Disease -ventilator settings per daytime babysitter -nephrology consultation: HD -PUD, DVT prophylaxis -social service consultation. Patient was stable for LTAC placement. Long discussion made with the patient's son, Jc yesterday. Critical care time spent with patient discussing and formulating plan of care: 40 minutes. This does not include time spent performing procedures. This medical document was created using an electronic medical record system with [employer] dictation system. Although this document has been carefully reviewed, there may still be some phonetic and typographical errors. These areas are purely typographical due to imperfections of the software programs, and do not reflect any compromise in the patient's medical care. Plan discussed with: Patient, Other (RN) My Orders Orders - OMAR PARK NP Procedure Category Date Status Time Discharge DISCHARGE 07/01/24 Transmitted 13:56 * Ore Sampler CONS 07/01/24 Transmitted Consult Carvedilol Tablet PHA 07/02/24 In Process (Coreg Tablet) 10:00 Hydralazine Hcl PHA 07/02/24 In Process Tablet (Apresoline 14:00 Date of Service: Jul 02, 2024 Billing Provider: OMAR PARK NP Common Visit Codes: 69117-ONBFIAII CARE 30-74 MIN OMAR PARK NP Jul 02, 2024 10:29
[2024-07-02 13:24] LABS: Base Excess 0.9 mmol/L (-2.0-3.0)
[2024-07-02] MEDS: hydrALAZINE HCL 10 MG TAB GT SCH (13:31)
--- NOTE | 2024-07-02 15:43 | DVHPN2 ---
Progress Note - Dictate Date Seen: Jul 02, 2024 Medical Necessity Reason Pt with a Central, PICC or Fol: No The following are medically ne: Central Line, Putnam Catheter Reason for putnam catheter: Strict I&O Subjective Tolerated dialysis vital signs Vital Sign Date Time Temp Pulse Resp B/P (MAP) Pulse Ox O2 Delivery O2 Flow Rate FiO2 07/02/24 14:15 99.5 95 23 161/85 (110) 100 99.5 07/02/24 14:00 40 07/02/24 14:00 Mechanical Ventilator+ Total Intake and Output 07/01/24 07/01/24 07/02/24 15:00 23:00 07:00 Intake Total 65.446 ml 100 ml 120 ml Output Total 75 ml Balance 65.446 ml 25 ml 120 ml medications Current Medications Medications Dose Ordered Sig/Yousif Route Start Time Stop Time Status Last Admin Dose Admin Midazolam HCl 50 ml @ 1 mls/hr Q24H IV 05/25/24 06:30 05/29/24 09:11 5 MLS/HR Atorvastatin Calcium 40 mg HS NG 05/25/24 22:00 07/01/24 21:41 40 MG Ondansetron HCl 4 mg Q4HP PRN IV 05/25/24 10:45 Nitroglycerin 0.4 mg Q5MINP PRN SL 05/25/24 10:45 Bumetanide 2 mg BIDD IV 05/30/24 18:00 07/02/24 06:03 2 MG Aspirin 81 mg DAILY PO 06/10/24 10:00 07/02/24 07:41 81 MG Enteral Nutritional Formula 1,000 ml 40ML/HR GT 06/15/24 09:15 06/29/24 20:41 1,000 ML Albumin Human 100 ml @ 100 mls/hr PRN PRN IV 06/16/24 11:00 06/30/24 06:50 100 MLS/HR Sodium Chloride 10 ml QSHIFT@10,22 IV 06/17/24 22:00 07/02/24 07:00 10 ML Fentanyl Citrate 250 ml @ 2.5 mls/hr Q24H IV 06/17/24 17:30 06/30/24 21:48 2.5 MLS/HR Albuterol 2.5 mg Q6HR NEB 06/20/24 12:00 07/02/24 11:53 2.5 MG Ipratropium [place] 0.5 mg Q6HR NEB 06/20/24 12:00 07/02/24 11:53 0.5 MG Ceftriaxone Sodium/Dextrose 50 ml @ 50 mls/hr BID IV 06/21/24 22:00 07/02/24 10:26 50 MLS/HR Propofol 100 ml @ 4.263 mls/ hr [id number] IV 06/27/24 10:45 07/01/24 06:08 4.263 MLS/HR Vancomycin HCl 0 ml @ 0 mls/hr UD IV 06/27/24 23:45 Cancel Lorazepam 1 mg ONCE PRN IV 06/28/24 11:30 07/03/24 11:29 Dexmedetomidine HCl 400 mcg/ Dextrose 100 ml @ 7.145 mls/ hr Q14H IV 06/28/24 15:00 06/29/24 16:19 7.145 MLS/HR Acetaminophen 650 mg Q6HP PRN PO 06/28/24 17:45 06/30/24 14:16 650 MG Norepinephrine Bitartrate 250 ml @ 3.75 mls/hr Q24H IV 06/29/24 05:30 06/29/24 06:05 3.75 MLS/HR Hydralazine HCl 10 mg Q6HPRN PRN IV 07/01/24 13:15 07/01/24 20:47 10 MG Clonidine HCl 0.2 mg Q4HPRN PRN PO 07/02/24 01:15 07/02/24 05:17 0.2 MG Carvedilol 3.125 mg Q12HR PO 07/02/24 10:00 07/02/24 10:25 3.125 MG Hydralazine HCl 10 mg Q8HR GT 07/02/24 14:00 07/02/24 13:31 10 MG objective Gen: Intubated lungs: cta anteriorly cvs: no rub abd: soft, bowel sounds audible ext: + edema laboratory and microbiology Laboratory Tests 07/02/24 07:19 Test 07/02/24 07:19 Range/Units Serum Glucose 98 74-106 mg/dL Assessment/Plan Acute kidney injury likely ATN - with continued need for dialysis support Unknown recent baseline Severe sepsis Morbid obesity Ventilator-dependent hypoxic respiratory failure recs - daily evaluation for KRT needs - consideration for LTAC placement if appropriate Dietary Evaluation Review Comments: 1) If GI is accessible consider Jevity 1.2 @ 70ml/hr x 24hr continuous feed goal rate as tolerated 2) If pt remains NPO >7 days consider TPN to meet at least 75% of estimated needs 3) Advance pt diet when medically feasible to a 2gm Sodium diet modified per HEALTH AND WELLNESS INSTRUCTOR recommendations 4) Continue current plan of care Expected Outcomes/Goals: 1) Pt to receive nutrition support within 7 days of NPO status 2) Pt diet to advance 3) F/U in 2-3 days Plan discussed with: Other JONATHAN HALL MD Jul 02, 2024 15:43
--- NOTE | 2024-07-02 21:06 | DVHPN2 ---
Progress Note - Dictate Date Seen: Jul 02, 2024 Medical Necessity Reason Pt with a Central, PICC or Fol: No The following are medically ne: Central Line, Putnam Catheter Reason for putnam catheter: Strict I&O Subjective Ms. Pandya is a 53 years old right-handed female with a history of morbid obesity, hypertension, the patient was was brought to the [facility] on 05/25/24 with a chief company of altered mental status, respiratory distress. I have seen and examined the patient, I have talked to her nurse. She is awake, respond to verbal stimuli, she tracks, but not able to follow a moves her extremities RN: She followed and was able to weakness toes earlier She was not on sedation, but is on vent Urine culture, 05/25/2024: Negative Blood culture, 05/25/2024: Streptococcus pneumoniae UDS, 05/25/2024: Negative Urinalysis, 05/25/2024: WBC: 1, urine leukocyte esterase: Negative ABG, 05/25/2024: Metabolic acidosis, hypoxia, 05/26/2024: Metabolic acidosis, hypoxia, 05/27/24: Metabolic acidosis, hypoxia WBC/HB/PLT/MCV, 06/02/2024: 22.4/9/342/89.4 06/09/2024: 19.6/9.4/235/91.6, 06/12/2024: 8.2/9.2/205/90.6 BUN/CR, 05/26/2024: 62/7.01 06/02/2024: 123/6.59, 06/09/2024: 137/6.32, 06/12/2024: 71/4.33 HGB A1c, 05/25/2024: 5.6 Lactic acid, 05/25/2024: 3.6, 4.6, 4.2, 05/26/2024: 3.6 Troponin one high sensitivity, 05/25/2024: 1060, 1354, 1262 TBI/AST/ALT/AP, 05/26/2024: 2/246/167/98, 06/07/2024: 0.9/139/464/93 TG/HDL/LDL/HDL, 05/25/2024: 192/98/40/8 Vitamin B12, 06/02/2024: 836 TSH, 05/25/2024: 0.57 SAMIR, 06/15/2024: Vegetation anterior mitral leaflet Carotid Doppler, 06/15/2024: 1. There is no hemodynamically significant stenosis in the right common carotid and internal carotid arteries. There is elevated peak systolic velocity in the right external carotid artery. 2. Nonvisualization of the left carotid and vertebral arteries secondary to overlying bandage. Consider further evaluation with CTA neck Chest x-ray, 05/25/2024: 1. Distal tip of the endotracheal tube is approximately 5.5 cm above the level of the nik. 2. Poorly visualized enteric tube at its distal aspect. Appears to reach the gastroesophageal junction, although not visualized distal to this point. Correlate with clinical findings. 3. Bilateral airspace opacities and interstitial opacities, may be due to multifocal pneumonia or pulmonary edema in the appropriate clinical setting CT head, 05/25/2024: No gross acute intracranial process CT head, 06/02/24: 1. Interval development of 2 foci of subcortical parenchymal hemorrhage in the left frontal lobe. No mass effect or midline shift. 2. Moderate amount of fluid in the posterior nasopharynx likely related to intubation. Recommend suctioning to prevent aspiration. 3. Small bilateral mastoid effusions. We are in the process of reaching out to the nurse or physician in charge of the patient to convey the findings. CT head, 06/04/2024: Redemonstrated are 2 hyperdense foci in the subcortical left frontal lobe which may represent small foci of parenchymal hemorrhage. There is no significant surrounding edema or associated mass effect CT head, 06/06/2024: The 2 foci of left frontal subcortical hemorrhage are less conspicuous in the current exam partially resolved. No new foci of hemorrhage CT chest, 06/23/2024: 1. Bilateral lower lobe consolidations which may reflect atelectasis or pneumonia. No findings to suggest septic emboli. 2. Cardiomegaly. Chest, 06/28/2024: Bilateral lower lobe infiltrates slightly worse than on previous study. There is now a small left pleural effusion MRI head, 06/15/2024: Extensive periventricular and deep white matter signal abnormality most of which is likely chronic. Possible small focus of subacute ischemia in the right periventricular region. No definite acute intracranial hemorrhage on MRI. Clinical correlation and continued follow-up is recommended MRA head, 06/28/2024: Asymmetrically decreased flow signal in the right M3 and M4 arterial branches in comparison to the left. Distal MCA arterial stenosis/ occlusion is not excluded. Further evaluation with CT angiography is recommended if not already performed vital signs Vital Sign Date Time Temp Pulse Resp B/P (MAP) Pulse Ox O2 Delivery O2 Flow Rate FiO2 07/02/24 20:19 96 21 148/78 (101) 100 40 07/02/24 17:36 Mechanical Ventilator+ 07/02/24 14:15 99.5 99.5 Total Intake and Output 07/01/24 07/01/24 07/02/24 15:00 23:00 07:00 Intake Total 65.446 ml 100 ml 120 ml Output Total 75 ml Balance 65.446 ml 25 ml 120 ml medications Current Medications Medications Dose Ordered Sig/Yousif Route Start Time Stop Time Status Last Admin Dose Admin Midazolam HCl 50 ml @ 1 mls/hr Q24H IV 05/25/24 06:30 05/29/24 09:11 5 MLS/HR Atorvastatin Calcium 40 mg HS NG 05/25/24 22:00 07/01/24 21:41 40 MG Ondansetron HCl 4 mg Q4HP PRN IV 05/25/24 10:45 Nitroglycerin 0.4 mg Q5MINP PRN SL 05/25/24 10:45 Bumetanide 2 mg BIDD IV 05/30/24 18:00 07/02/24 17:29 2 MG Aspirin 81 mg DAILY PO 06/10/24 10:00 07/02/24 07:41 81 MG Enteral Nutritional Formula 1,000 ml 40ML/HR GT 06/15/24 09:15 06/29/24 20:41 1,000 ML Albumin Human 100 ml @ 100 mls/hr PRN PRN IV 06/16/24 11:00 06/30/24 06:50 100 MLS/HR Sodium Chloride 10 ml QSHIFT@10,22 IV 06/17/24 22:00 07/02/24 07:00 10 ML Fentanyl Citrate 250 ml @ 2.5 mls/hr Q24H IV 06/17/24 17:30 06/30/24 21:48 2.5 MLS/HR Albuterol 2.5 mg Q6HR NEB 06/20/24 12:00 07/02/24 18:30 2.5 MG Ipratropium [place] 0.5 mg Q6HR NEB 06/20/24 12:00 07/02/24 18:30 0.5 MG Ceftriaxone Sodium/Dextrose 50 ml @ 50 mls/hr BID IV 06/21/24 22:00 07/02/24 10:26 50 MLS/HR Propofol 100 ml @ 4.263 mls/ hr [id number] IV 06/27/24 10:45 07/01/24 06:08 4.263 MLS/HR Vancomycin HCl 0 ml @ 0 mls/hr UD IV 06/27/24 23:45 Cancel Lorazepam 1 mg ONCE PRN IV 06/28/24 11:30 07/03/24 11:29 Dexmedetomidine HCl 400 mcg/ Dextrose 100 ml @ 7.145 mls/ hr Q14H IV 06/28/24 15:00 06/29/24 16:19 7.145 MLS/HR Acetaminophen 650 mg Q6HP PRN PO 06/28/24 17:45 06/30/24 14:16 650 MG Norepinephrine Bitartrate 250 ml @ 3.75 mls/hr Q24H IV 06/29/24 05:30 06/29/24 06:05 3.75 MLS/HR Hydralazine HCl 10 mg Q6HPRN PRN IV 07/01/24 13:15 07/02/24 17:30 10 MG Clonidine HCl 0.2 mg Q4HPRN PRN PO 07/02/24 01:15 07/02/24 05:17 0.2 MG Carvedilol 3.125 mg Q12HR PO 07/02/24 10:00 07/02/24 10:25 3.125 MG Hydralazine HCl 10 mg Q8HR GT 07/02/24 14:00 07/02/24 13:31 10 MG objective The patient is well-nourished and well-developed with no distress. Status post tracheostomy Status post PEG feeding tube insertion MENTAL STATUS: Subjective CRANIAL NERVES: Pupils are round and reactive. There is conjugated eye movement. No signs of facial weakness. There are gagging or coughing reflexes during oral care. SENSATION: Response to strong painful stimuli MOTOR: Normal tone in the upper and lower extremity. Normal muscle bulk. No fasciculations. No spontaneous movement REFLEXES: Deep tendon reflexes are symmetrical. No pathological reflexes. CEREBELLAR/COORDINATION: Deferred GAIT/STATION: deferred. laboratory and microbiology Laboratory Tests 07/02/24 07:19 Test 07/02/24 07:19 Range/Units Serum Glucose 98 74-106 mg/dL Problem List Altered mental status/Coma Hypoxic encephalopathy secondary to respiratory failure Metabolic encephalopathy secondary to acidosis, sepsis, septic shock, kidney failure Multiple acute/subacute strokes Heart attack Pneumonia Sepsis, septic shock Endocarditis Acute on chronic kidney failure Acute petechial hemorrhage in the left frontal lobe, improving on follow-up CT Intermittent anisocoria, uncertain clinical significance Assessment/Plan Monitoring Supportive treatment ICU care Stabilize vitals Respiratory support/vent management Oxygen IV antibiotics GI prophylaxis/Protonix DVT prophylaxis/heparin Nephrology on case Pulmonology on case Infectious diseases on case She is s/p PEG feeding tube insertion and tracheostomy More recommendation per clinical course This medical document was created using an electronic medical record system with [employer] dictation system. Although this document has been carefully reviewed, there may still be some phonetic and typographical errors. These areas are purely typographical due to imperfections of the software programs, and do not reflect any compromise in the patient's medical care Prognosis poor Dietary Evaluation Review Comments: 1) If GI is accessible consider Jevity 1.2 @ 70ml/hr x 24hr continuous feed goal rate as tolerated 2) If pt remains NPO >7 days consider TPN to meet at least 75% of estimated needs 3) Advance pt diet when medically feasible to a 2gm Sodium diet modified per BIOMEDICAL ENGINEERING AIDE recommendations 4) Continue current plan of care Expected Outcomes/Goals: 1) Pt to receive nutrition support within 7 days of NPO status 2) Pt diet to advance 3) F/U in 2-3 days Plan discussed with: Other PILAR HOOD MD Jul 02, 2024 21:06
[2024-07-02] MEDS: EPOETIN ALFA-EPBX 10,000 UNIT/1ML VIAL SC ONE (21:07)
--- NOTE | 2024-07-02 21:39 | DVHPN2 ---
Progress Note - Dictate Date Seen: Jul 02, 2024 Medical Necessity Reason Pt with a Central, PICC or Fol: No The following are medically ne: Central Line, Putnam Catheter Reason for putnam catheter: Strict I&O Subjective Patient seen and examined at bedside. On mechanical ventilator. S/p trach Overnight events reviewed. vital signs Vital Sign Date Time Temp Pulse Resp B/P (MAP) Pulse Ox O2 Delivery O2 Flow Rate FiO2 07/02/24 21:24 181/94 07/02/24 21:24 101 07/02/24 20:19 21 100 40 07/02/24 17:36 Mechanical Ventilator+ 07/02/24 14:15 99.5 99.5 Total Intake and Output 07/01/24 07/01/24 07/02/24 15:00 23:00 07:00 Intake Total 65.446 ml 100 ml 120 ml Output Total 75 ml Balance 65.446 ml 25 ml 120 ml medications Current Medications Medications Dose Ordered Sig/Yousif Route Start Time Stop Time Status Last Admin Dose Admin Midazolam HCl 50 ml @ 1 mls/hr Q24H IV 05/25/24 06:30 05/29/24 09:11 5 MLS/HR Atorvastatin Calcium 40 mg HS NG 05/25/24 22:00 07/02/24 21:23 40 MG Ondansetron HCl 4 mg Q4HP PRN IV 05/25/24 10:45 Nitroglycerin 0.4 mg Q5MINP PRN SL 05/25/24 10:45 Bumetanide 2 mg BIDD IV 05/30/24 18:00 07/02/24 17:29 2 MG Aspirin 81 mg DAILY PO 06/10/24 10:00 07/02/24 07:41 81 MG Enteral Nutritional Formula 1,000 ml 40ML/HR GT 06/15/24 09:15 06/29/24 20:41 1,000 ML Albumin Human 100 ml @ 100 mls/hr PRN PRN IV 06/16/24 11:00 06/30/24 06:50 100 MLS/HR Sodium Chloride 10 ml QSHIFT@10,22 IV 06/17/24 22:00 07/02/24 21:25 10 ML Fentanyl Citrate 250 ml @ 2.5 mls/hr Q24H IV 06/17/24 17:30 06/30/24 21:48 2.5 MLS/HR Albuterol 2.5 mg Q6HR NEB 06/20/24 12:00 07/02/24 18:30 2.5 MG Ipratropium [place] 0.5 mg Q6HR NEB 06/20/24 12:00 07/02/24 18:30 0.5 MG Ceftriaxone Sodium/Dextrose 50 ml @ 50 mls/hr BID IV 06/21/24 22:00 07/02/24 21:24 50 MLS/HR Propofol 100 ml @ 4.263 mls/ hr [id number] IV 06/27/24 10:45 07/01/24 06:08 4.263 MLS/HR Vancomycin HCl 0 ml @ 0 mls/hr UD IV 06/27/24 23:45 Cancel Lorazepam 1 mg ONCE PRN IV 06/28/24 11:30 07/03/24 11:29 Dexmedetomidine HCl 400 mcg/ Dextrose 100 ml @ 7.145 mls/ hr Q14H IV 06/28/24 15:00 06/29/24 16:19 7.145 MLS/HR Acetaminophen 650 mg Q6HP PRN PO 06/28/24 17:45 06/30/24 14:16 650 MG Norepinephrine Bitartrate 250 ml @ 3.75 mls/hr Q24H IV 06/29/24 05:30 06/29/24 06:05 3.75 MLS/HR Hydralazine HCl 10 mg Q6HPRN PRN IV 07/01/24 13:15 07/02/24 17:30 10 MG Clonidine HCl 0.2 mg Q4HPRN PRN PO 07/02/24 01:15 07/02/24 05:17 0.2 MG Carvedilol 3.125 mg Q12HR PO 07/02/24 10:00 07/02/24 21:24 3.125 MG Hydralazine HCl 10 mg Q8HR GT 07/02/24 14:00 07/02/24 21:24 10 MG objective Gen.: Patient lying in bed in medical ICU. On mechanical ventilator. S/p trach Head: Normocephalic, atraumatic. Eyes: PERRLA. Ears: Normal external anatomy. Throat: Endotracheal tube and orogastric tube in place. Neck: Trach in place. Chest: Transmitted breath sounds bilaterally. Decreased air entry bilaterally. No wheezing. Bibasilar crackles. Cardiovascular: Positive S1, positive S2. Regular rate and rhythm. Abdomen: Positive bowel sounds in all 4 quadrants. Soft, nontender, nondistended. : Putnam in place. Normal external genitalia. Rectal: Deferred. Skin: Warm, dry. Intact. Extremities: 2+ radial pulses bilaterally. No lower extremity edema. Neuro: Off sedation laboratory and microbiology Laboratory Tests 07/02/24 07:19 Test 07/02/24 07:19 Range/Units Serum Glucose 98 74-106 mg/dL Assessment/Plan Impression: Acute hypoxic respiratory failure On mechanical ventilator Septic shock Elevated troponin Acute kidney injury Lactic acidosis Metabolic acidosis Multifocal pneumonia, likely gram negative Pulmonary edema AE COPD Events: Remains on vent support On AC mode; RR 18, VT 500, PEEP 5, FiO2 40% S/p trach Trach care PEG tube in place Off sedation Tolerated CPAP for 3 hours Continue daily CPAP. Hemodialysis per Nephrology - s/p HD today. Off pressors, hemodynamically stable. Continue bronchodilators Continue antibiotics Blood cultures show no growth for 72 hours. Tube feeds for nutritional support Wound care Monitor hemoglobin, trending up - 8.4 g/dL Blood pressure control Diurese to euvolemia w/ Bumex BID Monitor renal function Monitor electrolytes, supplement as necessary Hemodialysis per Nephrology Nephrology recs appreciated. Echo showed EF of 40%. SBT/KAREN Awaiting LTAC placement Poor prognosis, poor chance of meaningful recovery CT head revealed e/o multiple strokes. Neurology recommendations appreciated Labs and imaging reviewed. Rest of plan as noted below. Plan: s/p intubation on mechanical ventilator. On AC mode; RR 18, VT 500, PEEP 5, FiO2 40% Titrate FIO2 to keep O2 saturation above 90%. VAP bundle. Daily ABG and CXR while intubated Off sedation Continue bronchodilators. Continue antibiotics. F/u cultures. Pressors if necessary for hemodynamic support Titrate to keep mean arterial pressure greater than 65 mmHg. Cardiology recs appreciated. Monitor renal function Monitor electrolytes. Supplement as necessary. Monitor ins and outs. Nephrology recs appreciated. IV fluid hydration GI prophylaxis. DVT prophylaxis. Prognosis: Poor given patient's multiple co-morbidities. Condition: Critical Rest of plan per hospitalist and other consultants. A total of 35 minutes of critical care time was spent reviewing the patient record, examining the patient, making a diagnostic and therapeutic plan, discussing this plan with the medical personnel, following up on diagnostic studies and following the patient for clinical stability excluding any and all procedures. At least 50% of this time was spent in direct, [id number] contact. Thank you, [employer], for allowing me to participate in this patient's care. Further recommendations will depend on the patient's clinical course. Please do not hesitate to contact me if you have any questions or concerns. This medical document was created using an electronic medical record system with [employer] dictation system. Although these documentations are being carefully reviewed, there may still be some phonetic and typographical changes. The errors are purely typographical, due to imperfection on the software program, and do not reflect any compromise in the patient's medical care. Dietary Evaluation Review Comments: 1) If GI is accessible consider Jevity 1.2 @ 70ml/hr x 24hr continuous feed goal rate as tolerated 2) If pt remains NPO >7 days consider TPN to meet at least 75% of estimated needs 3) Advance pt diet when medically feasible to a 2gm Sodium diet modified per IN HOME SALES CONSULTANT recommendations 4) Continue current plan of care Expected Outcomes/Goals: 1) Pt to receive nutrition support within 7 days of NPO status 2) Pt diet to advance 3) F/U in 2-3 days Plan discussed with: Other (LUZMARIA Mac) Critical Care Time(min): 35 MELODY ELIZABETH MD Jul 02, 2024 21:39
[2024-07-03] VITALS (59 sets, daily range): BP systolic 91–207; BP diastolic 49–123; PULSE 89–109; RESP 12–35; TEMP 98.7–100.8; O2SAT 94–100
[2024-07-03 03:46] LABS: Anion Gap 12 (5-15); Basophils # (auto) 0 10 ^3/uL (0-0.2); Basophils % (auto) 0.6 % (0.0-2.0); Carbon Dioxide 26 mmol/L (20-31); Chloride 99 mmol/L (98-107); Eosinophils # (auto) 0.1 10 ^3/uL (0-0.8); Eosinophils % (auto) 1.6 % (0.0-7.0); Hematocrit 28.8 % (36.0-46.0); Hemoglobin 9.5 g/dL (12.2-16.2); Lymphocytes # (auto) 1.1 10 ^3/uL (0.4-5.4); Lymphocytes % (auto) 13.4 % (10.0-50.0); Mean Corpuscular Hemoglobin 29.7 pg (28.0-32.0); Mean Corpuscular Volume 89.9 fL (80.0-100.0); Monocytes % (auto) 12.3 % (0.0-12.0); Neutrophils # (auto) 5.7 10 ^3/uL (1.6-8.6); Neutrophils % (auto) 72.1 % (37.0-80.0); Nucleated Red Blood Cells % 0.1 %; Platelet Count (auto) 259 10^3/uL (140-450); Red Cell Distribution Width 16.4 % (11.8-14.3); Sodium 137 mmol/L (136-145); White Blood Cell 7.8 10^3/uL (4.4-10.8)
[2024-07-03 03:51] LABS: Glucose 98 mg/dL (74-106)
[2024-07-03 03:52] LABS: BUN/Creatinine Ratio 6.4 (10.0-20.0); Magnesium 2.2 mg/dL (1.6-2.6)
[2024-07-03 03:56] LABS: Blood Urea Nitrogen 30 mg/dL (9-23); Potassium 3.5 mmol/L (3.5-5.1)
[2024-07-03 07:19] LABS: Base Excess -0.9 mmol/L (-2.0-3.0)
--- NOTE | 2024-07-03 10:23 | DVHPN2 ---
Progress Note - Dictate Date Seen: Jul 03, 2024 Medical Necessity Reason Pt with a Central, PICC or Fol: No The following are medically ne: Central Line, Putnam Catheter Reason for putnam catheter: Strict I&O vital signs Vital Sign Date Time Temp Pulse Resp B/P (MAP) Pulse Ox O2 Delivery O2 Flow Rate FiO2 07/03/24 10:13 93 168/101 07/03/24 08:20 18 100 40 07/03/24 08:00 Mechanical Ventilator+ 07/03/24 04:00 99.1 99.1 Total Intake and Output 07/02/24 07/02/24 07/03/24 15:00 23:00 07:00 Intake Total 50 ml 150 ml 150 ml Output Total 3050 ml 15 ml Balance 50 ml -2900 ml 135 ml medications Current Medications Medications Dose Ordered Sig/Yousif Route Start Time Stop Time Status Last Admin Dose Admin Midazolam HCl 50 ml @ 1 mls/hr Q24H IV 05/25/24 06:30 05/29/24 09:11 5 MLS/HR Atorvastatin Calcium 40 mg HS NG 05/25/24 22:00 07/02/24 21:23 40 MG Ondansetron HCl 4 mg Q4HP PRN IV 05/25/24 10:45 Nitroglycerin 0.4 mg Q5MINP PRN SL 05/25/24 10:45 Bumetanide 2 mg BIDD IV 05/30/24 18:00 07/03/24 05:43 2 MG Aspirin 81 mg DAILY PO 06/10/24 10:00 07/03/24 10:12 81 MG Enteral Nutritional Formula 1,000 ml 40ML/HR GT 06/15/24 09:15 07/03/24 00:03 1,000 ML Albumin Human 100 ml @ 100 mls/hr PRN PRN IV 06/16/24 11:00 06/30/24 06:50 100 MLS/HR Sodium Chloride 10 ml QSHIFT@10,22 IV 06/17/24 22:00 07/03/24 10:13 10 ML Fentanyl Citrate 250 ml @ 2.5 mls/hr Q24H IV 06/17/24 17:30 06/30/24 21:48 2.5 MLS/HR Albuterol 2.5 mg Q6HR NEB 06/20/24 12:00 07/03/24 06:31 2.5 MG Ipratropium [place] 0.5 mg Q6HR NEB 06/20/24 12:00 07/03/24 06:31 0.5 MG Ceftriaxone Sodium/Dextrose 50 ml @ 50 mls/hr BID IV 06/21/24 22:00 07/03/24 10:13 50 MLS/HR Propofol 100 ml @ 4.263 mls/ hr [id number] IV 06/27/24 10:45 07/01/24 06:08 4.263 MLS/HR Vancomycin HCl 0 ml @ 0 mls/hr UD IV 06/27/24 23:45 Cancel Lorazepam 1 mg ONCE PRN IV 06/28/24 11:30 07/03/24 11:29 Dexmedetomidine HCl 400 mcg/ Dextrose 100 ml @ 7.145 mls/ hr Q14H IV 06/28/24 15:00 06/29/24 16:19 7.145 MLS/HR Acetaminophen 650 mg Q6HP PRN PO 06/28/24 17:45 06/30/24 14:16 650 MG Norepinephrine Bitartrate 250 ml @ 3.75 mls/hr Q24H IV 06/29/24 05:30 06/29/24 06:05 3.75 MLS/HR Hydralazine HCl 10 mg Q6HPRN PRN IV 07/01/24 13:15 07/03/24 00:02 10 MG Clonidine HCl 0.2 mg Q4HPRN PRN PO 07/02/24 01:15 07/02/24 05:17 0.2 MG Carvedilol 3.125 mg Q12HR PO 07/02/24 10:00 07/03/24 10:13 3.125 MG Hydralazine HCl 10 mg Q8HR GT 07/02/24 14:00 07/03/24 06:30 10 MG laboratory and microbiology Laboratory Tests 07/03/24 03:00 Test 07/03/24 03:00 Range/Units Serum Glucose 98 74-106 mg/dL Assessment/Plan Assessment/Plan Impression: Acute hypoxic respiratory failure On mechanical ventilator Acute kidney injury Lactic acidosis Metabolic acidosis Multifocal pneumonia, likely gram negative Pulmonary edema AE COPD Events: Remains on vent support On AC mode; RR 18, VT 500, PEEP 5, FiO2 40% S/p trach CHANG HD-dependent pt awake following commands Awaiting LTAC placement no acute issues Plan: PS/trache collar trials through the day ac vent support prn Continue bronchodilators. Pressors if necessary for hemodynamic support Titrate to keep mean arterial pressure greater than 65 mmHg. Monitor renal function Monitor electrolytes. Supplement as necessary. Monitor ins and outs. Nephrology recs appreciated. IV fluid hydration GI prophylaxis. DVT prophylaxis. Critical Care Time(min): 35 Dietary Evaluation Review Comments: 1) If GI is accessible consider Jevity 1.2 @ 70ml/hr x 24hr continuous feed goal rate as tolerated 2) If pt remains NPO >7 days consider TPN to meet at least 75% of estimated needs 3) Advance pt diet when medically feasible to a 2gm Sodium diet modified per PRODUCTION COORDINATOR recommendations 4) Continue current plan of care Expected Outcomes/Goals: 1) Pt to receive nutrition support within 7 days of NPO status 2) Pt diet to advance 3) F/U in 2-3 days Plan discussed with: Other (rn) PHILLY DAVIS MD Jul 03, 2024 10:23
--- NOTE | 2024-07-03 11:32 | DVHPN2 ---
Consult Progress Note Date Seen: Jul 01, 2024 Subjective Patient reports: Other (off all pressures for last 24 hours , responds to sternal rub , FIO2 30% ) Objective vital signs Vital Sign Date Time Temp Pulse Resp B/P (MAP) Pulse Ox O2 Delivery O2 Flow Rate FiO2 07/03/24 11:22 95 163/97 07/03/24 11:00 17 100 07/03/24 10:54 40 07/03/24 10:30 100.8 100.8 07/03/24 10:00 Mechanical Ventilator+ Total Intake and Output 07/02/24 07/02/24 07/03/24 15:00 23:00 07:00 Intake Total 50 ml 150 ml 150 ml Output Total 3050 ml 15 ml Balance 50 ml -2900 ml 135 ml medications Current Medications Medications Dose Ordered Sig/Yousif Route Start Time Stop Time Status Last Admin Dose Admin Midazolam HCl 50 ml @ 1 mls/hr Q24H IV 05/25/24 06:30 05/29/24 09:11 5 MLS/HR Atorvastatin Calcium 40 mg HS NG 05/25/24 22:00 07/02/24 21:23 40 MG Ondansetron HCl 4 mg Q4HP PRN IV 05/25/24 10:45 Nitroglycerin 0.4 mg Q5MINP PRN SL 05/25/24 10:45 Bumetanide 2 mg BIDD IV 05/30/24 18:00 07/03/24 05:43 2 MG Aspirin 81 mg DAILY PO 06/10/24 10:00 07/03/24 10:12 81 MG Enteral Nutritional Formula 1,000 ml 40ML/HR GT 06/15/24 09:15 07/03/24 00:03 1,000 ML Albumin Human 100 ml @ 100 mls/hr PRN PRN IV 06/16/24 11:00 06/30/24 06:50 100 MLS/HR Sodium Chloride 10 ml QSHIFT@10,22 IV 06/17/24 22:00 07/03/24 10:13 10 ML Fentanyl Citrate 250 ml @ 2.5 mls/hr Q24H IV 06/17/24 17:30 06/30/24 21:48 2.5 MLS/HR Albuterol 2.5 mg Q6HR NEB 06/20/24 12:00 07/03/24 06:31 2.5 MG Ipratropium [place] 0.5 mg Q6HR NEB 06/20/24 12:00 07/03/24 06:31 0.5 MG Ceftriaxone Sodium/Dextrose 50 ml @ 50 mls/hr BID IV 06/21/24 22:00 07/03/24 10:13 50 MLS/HR Propofol 100 ml @ 4.263 mls/ hr [id number] IV 06/27/24 10:45 07/01/24 06:08 4.263 MLS/HR Vancomycin HCl 0 ml @ 0 mls/hr UD IV 06/27/24 23:45 Cancel Lorazepam 1 mg ONCE PRN IV 06/28/24 11:30 07/03/24 11:29 Dexmedetomidine HCl 400 mcg/ Dextrose 100 ml @ 7.145 mls/ hr Q14H IV 06/28/24 15:00 06/29/24 16:19 7.145 MLS/HR Acetaminophen 650 mg Q6HP PRN PO 06/28/24 17:45 07/03/24 10:27 650 MG Norepinephrine Bitartrate 250 ml @ 3.75 mls/hr Q24H IV 06/29/24 05:30 06/29/24 06:05 3.75 MLS/HR Hydralazine HCl 10 mg Q6HPRN PRN IV 07/01/24 13:15 07/03/24 00:02 10 MG Clonidine HCl 0.2 mg Q4HPRN PRN PO 07/02/24 01:15 07/02/24 05:17 0.2 MG Carvedilol 3.125 mg Q12HR PO 07/02/24 10:00 07/03/24 10:13 3.125 MG Hydralazine HCl 10 mg Q8HR GT 07/02/24 14:00 07/03/24 06:30 10 MG General Appearance: Cooperative. Well developed. Well nourished. NAD. intubated and sedated . morbidly obease Head Exam: Normal inspection Neck Exam: Normal inspection. Non-tender. Normal alignment Pulmonary/Respiratory: Chest non-tender. Clear bilateral breath sounds. minimal vent with traces of pressures and unable to ween off vent due to mentating well of sedation but continues to have signs of agitation Cardiovascular/Chest: No murmurs. No JVD. Abdominal Exam: Normal bowel sounds. Soft. Nontender. No hepatosplenomegaly. 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 concern for septic picture , patient was needing ventilatory support , vasopressures , steroids . no known history of drungs or smoking . no recent medications. orginally treated with cefapine and doxycycline but eventually put on dialysis and found strep pneumonia in blood , likely lung origin . found to have vegitation in the antrium and anterior mitral leflet which was confirmed on SAMIR as well as mitral regurgitation . MRI of brain concerning for possible small focus of subacute ischemia and the right periventricular region likely consistent with septic embolie . SAMIR showed 3 mm vegitation on the intermitral leftlet . currently on ceftriaxone therapy for endocarditis. negative for any type of hepatitis , urine drig screen was negative . no signs of septic embolism problem list - strep pneumonia , bacteremia , endocarditis , septic shock , septic emboli to brain , pneumonia, mitral valve regurgitation , CHF , acute renal failure on dialysis 2: Difficult to ween off vent and has been having improved airspace opacities on chest xray and since has been started on Ceftriaxone 2 grams Q12 , chest Ct was done and there was no finding to suggest septic emboli or persistent plural effusions that could be keeping patients from being off the ventilator . Continue Ceftriaxone 2 grams every 12 hours for 6 weeks via piccline . prognosis overall is poor , may proceed with tracheostomy . no contraindications from infectious disease of additional infectious work up needed 06/23: underwent dialysis and tolerated procedure without any issues . Patient has a clean tracheostomy placed today without any complications and site appears clean. Patient is currently on FIO2 50% on trach . Continue ceftriaxone 2 grams every 12 hours for 6 weeks . If patients clinical status allows would recommend patient follow up with infectious disease in 6 weeks to repeat echocardiogram as well as determine if additional therapy is needed for endocarditis. 2: S/P tracheostomy with no signs of intolerance and still vent dependant . plan will be to continue antibiotics for 6 weeks of ceftriaxone for endocarditis and to follow up with infectious disease clinic in 6 weeks 06/25: remains vent dependant and on 6 of levofed . FIO2 50% and pressure dependant . tolerating tracheostomy and tube feeds via NG tube and underwent dialysis yesterday without any issues . continue antibiotic plan 06/26: chest xray shows mild vascular congestion 06/27: patient is levofed dependant and unclear what is contributing to overall hypotension. spoke with nursing staff to pursue aggressive sedation to see if patient will wake up and if patient is awake would consider cardiology reevaluation for potential cardiothoracic surgery 06/28: elevated temps as high as 100.2 , possibly related to agitation during CPAP 06/29: Patient has been switched off sedation to see if she can tolerate CPAP and potentially be weaned off the vent 06/30: MRI was done of the brain and shows asymmetrically decreased flow signal in the right M3 and M4 arterial branches compared to the left distal MCA arterial stenosis / occlusion is not excluded . CT chest was done and shows a bilateral lower lobe infiltrates slightly worse than previous , now a small left plural effusion 07/01: patients blood pressures have significantly improved and if off pressure support , holding good maps . new blood cultures are no growth to date Plan: - in light of worsening chest ct recommend getting a sputum culture - Continue ceftriaxone 2 grams every 12 hours for 6 weeks . If patients clinical status allows would recommend patient follow up with infectious disease in 6 weeks to repeat echocardiogram as well as determine if additional therapy is needed for endocarditis. -continue ceftriaxone 2 g twice daily, recommend for total six weeks for endocarditis. -on hemodialysis -rest of the medical management as per primary care team and pulmonology nephrology. - prognosis is poor Plan discussed with: Other Dietary Evaluation Review Comments: 1) If GI is accessible consider Jevity 1.2 @ 70ml/hr x 24hr continuous feed goal rate as tolerated 2) If pt remains NPO >7 days consider TPN to meet at least 75% of estimated needs 3) Advance pt diet when medically feasible to a 2gm Sodium diet modified per TRANSLATOR INTERPRETER recommendations 4) Continue current plan of care Expected Outcomes/Goals: 1) Pt to receive nutrition support within 7 days of NPO status 2) Pt diet to advance 3) F/U in 2-3 days JOSH VERNON MD Jul 03, 2024 11:32
--- NOTE | 2024-07-03 11:43 | DVHPN2 ---
Consult Progress Note Date Seen: Jul 02, 2024 Subjective Patient reports: Other (started gettign high peak pressures and stacking over the vent and increased work of breathing , she did not tolerate CPAP trials , getting low volumes , high respiratory rate , put back on sedation and AC mode on vent , she is febrile , has less edema in her upper and lwoer extremities ) Objective vital signs Vital Sign Date Time Temp Pulse Resp B/P (MAP) Pulse Ox O2 Delivery O2 Flow Rate FiO2 07/03/24 11:22 95 163/97 07/03/24 11:00 17 100 07/03/24 10:54 40 07/03/24 10:30 100.8 100.8 07/03/24 10:00 Mechanical Ventilator+ Total Intake and Output 07/02/24 07/02/24 07/03/24 15:00 23:00 07:00 Intake Total 50 ml 150 ml 150 ml Output Total 3050 ml 15 ml Balance 50 ml -2900 ml 135 ml medications Current Medications Medications Dose Ordered Sig/Yousif Route Start Time Stop Time Status Last Admin Dose Admin Midazolam HCl 50 ml @ 1 mls/hr Q24H IV 05/25/24 06:30 05/29/24 09:11 5 MLS/HR Atorvastatin Calcium 40 mg HS NG 05/25/24 22:00 07/02/24 21:23 40 MG Ondansetron HCl 4 mg Q4HP PRN IV 05/25/24 10:45 Nitroglycerin 0.4 mg Q5MINP PRN SL 05/25/24 10:45 Bumetanide 2 mg BIDD IV 05/30/24 18:00 07/03/24 05:43 2 MG Aspirin 81 mg DAILY PO 06/10/24 10:00 07/03/24 10:12 81 MG Enteral Nutritional Formula 1,000 ml 40ML/HR GT 06/15/24 09:15 07/03/24 00:03 1,000 ML Albumin Human 100 ml @ 100 mls/hr PRN PRN IV 06/16/24 11:00 06/30/24 06:50 100 MLS/HR Sodium Chloride 10 ml QSHIFT@10,22 IV 06/17/24 22:00 07/03/24 10:13 10 ML Fentanyl Citrate 250 ml @ 2.5 mls/hr Q24H IV 06/17/24 17:30 06/30/24 21:48 2.5 MLS/HR Albuterol 2.5 mg Q6HR NEB 06/20/24 12:00 07/03/24 06:31 2.5 MG Ipratropium [place] 0.5 mg Q6HR NEB 06/20/24 12:00 07/03/24 06:31 0.5 MG Ceftriaxone Sodium/Dextrose 50 ml @ 50 mls/hr BID IV 06/21/24 22:00 07/03/24 10:13 50 MLS/HR Propofol 100 ml @ 4.263 mls/ hr [id number] IV 06/27/24 10:45 07/01/24 06:08 4.263 MLS/HR Vancomycin HCl 0 ml @ 0 mls/hr UD IV 06/27/24 23:45 Cancel Lorazepam 1 mg ONCE PRN IV 06/28/24 11:30 07/03/24 11:29 Dexmedetomidine HCl 400 mcg/ Dextrose 100 ml @ 7.145 mls/ hr Q14H IV 06/28/24 15:00 06/29/24 16:19 7.145 MLS/HR Acetaminophen 650 mg Q6HP PRN PO 06/28/24 17:45 07/03/24 10:27 650 MG Norepinephrine Bitartrate 250 ml @ 3.75 mls/hr Q24H IV 06/29/24 05:30 06/29/24 06:05 3.75 MLS/HR Hydralazine HCl 10 mg Q6HPRN PRN IV 07/01/24 13:15 07/03/24 00:02 10 MG Clonidine HCl 0.2 mg Q4HPRN PRN PO 07/02/24 01:15 07/02/24 05:17 0.2 MG Carvedilol 3.125 mg Q12HR PO 07/02/24 10:00 07/03/24 10:13 3.125 MG Hydralazine HCl 10 mg Q8HR GT 07/02/24 14:00 07/03/24 06:30 10 MG General Appearance: Cooperative. Well developed. Well nourished. NAD. intubated and sedated . morbidly obease Head Exam: Normal inspection Neck Exam: Normal inspection. Non-tender. Normal alignment Pulmonary/Respiratory: Chest non-tender. Clear bilateral breath sounds. minimal vent with traces of pressures and unable to ween off vent due to mentating well of sedation but continues to have signs of agitation Cardiovascular/Chest: No murmurs. No JVD. Abdominal Exam: Normal bowel sounds. Soft. Nontender. No hepatosplenomegaly. 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 concern for septic picture , patient was needing ventilatory support , vasopressures , steroids . no known history of drungs or smoking . no recent medications. orginally treated with cefapine and doxycycline but eventually put on dialysis and found strep pneumonia in blood , likely lung origin . found to have vegitation in the antrium and anterior mitral leflet which was confirmed on SAMIR as well as mitral regurgitation . MRI of brain concerning for possible small focus of subacute ischemia and the right periventricular region likely consistent with septic embolie . SAMIR showed 3 mm vegitation on the intermitral leftlet . currently on ceftriaxone therapy for endocarditis. negative for any type of hepatitis , urine drig screen was negative . no signs of septic embolism problem list - strep pneumonia , bacteremia , endocarditis , septic shock , septic emboli to brain , pneumonia, mitral valve regurgitation , CHF , acute renal failure on dialysis 2: Difficult to ween off vent and has been having improved airspace opacities on chest xray and since has been started on Ceftriaxone 2 grams Q12 , chest Ct was done and there was no finding to suggest septic emboli or persistent plural effusions that could be keeping patients from being off the ventilator . Continue Ceftriaxone 2 grams every 12 hours for 6 weeks via piccline . prognosis overall is poor , may proceed with tracheostomy . no contraindications from infectious disease of additional infectious work up needed 2: underwent dialysis and tolerated procedure without any issues . Patient has a clean tracheostomy placed today without any complications and site appears clean. Patient is currently on FIO2 50% on trach . Continue ceftriaxone 2 grams every 12 hours for 6 weeks . If patients clinical status allows would recommend patient follow up with infectious disease in 6 weeks to repeat echocardiogram as well as determine if additional therapy is needed for endocarditis. 2: S/P tracheostomy with no signs of intolerance and still vent dependant . plan will be to continue antibiotics for 6 weeks of ceftriaxone for endocarditis and to follow up with infectious disease clinic in 6 weeks 06/25: remains vent dependant and on 6 of levofed . FIO2 50% and pressure dependant . tolerating tracheostomy and tube feeds via NG tube and underwent dialysis yesterday without any issues . continue antibiotic plan 06/26: chest xray shows mild vascular congestion 06/27: patient is levofed dependant and unclear what is contributing to overall hypotension. spoke with nursing staff to pursue aggressive sedation to see if patient will wake up and if patient is awake would consider cardiology reevaluation for potential cardiothoracic surgery 06/28: elevated temps as high as 100.2 , possibly related to agitation during CPAP 06/29: Patient has been switched off sedation to see if she can tolerate CPAP and potentially be weaned off the vent 06/30: MRI was done of the brain and shows asymmetrically decreased flow signal in the right M3 and M4 arterial branches compared to the left distal MCA arterial stenosis / occlusion is not excluded . CT chest was done and shows a bilateral lower lobe infiltrates slightly worse than previous , now a small left plural effusion 07/01: patients blood pressures have significantly improved and if off pressure support , holding good maps . new blood cultures are no growth to date 07/02: patient is off pressures and responding to antibiotics however is not able to wake up and not able to be weaned from the vent Plan: - in light of worsening chest ct recommend getting a sputum culture - Continue ceftriaxone 2 grams every 12 hours for 6 weeks . If patients clinical status allows would recommend patient follow up with infectious disease in 6 weeks to repeat echocardiogram as well as determine if additional therapy is needed for endocarditis. -continue ceftriaxone 2 g twice daily, recommend for total six weeks for endocarditis. -on hemodialysis -rest of the medical management as per primary care team and pulmonology nephrology. - prognosis is poor Plan discussed with: Other Dietary Evaluation Review Comments: 1) If GI is accessible consider Jevity 1.2 @ 70ml/hr x 24hr continuous feed goal rate as tolerated 2) If pt remains NPO >7 days consider TPN to meet at least 75% of estimated needs 3) Advance pt diet when medically feasible to a 2gm Sodium diet modified per TRANSFORMER TESTER recommendations 4) Continue current plan of care Expected Outcomes/Goals: 1) Pt to receive nutrition support within 7 days of NPO status 2) Pt diet to advance 3) F/U in 2-3 days JOSH VERNON MD Jul 03, 2024 11:43
[2024-07-03] MEDS: LABETALOL HCL 20 MG/4 ML VL IV PRN (14:36)
--- NOTE | 2024-07-03 16:37 | DVHPN2 ---
Reviewed: Care Plan, H&P, Labs, Medications, Previous Orders, Radiology, Other (Consultations) Changes from previous H/P or p: No Changes General: Per HPI Objective Vitals Vital Signs Date Time Temp Pulse Resp B/P (MAP) Pulse Ox O2 Delivery O2 Flow Rate FiO2 07/03/24 16:00 104 21 207/111 (143) 97 07/03/24 16:00 Trach Collar 10 40 40 07/03/24 13:00 99.8 99.8 Intake/Output Intake and Output 07/03/24 07:00 Intake Total 350 ml Output Total 3065 ml Balance -2715 ml Intake Oral 250 ml IV Total 100 ml Output Urine Total 65 ml Other 3000 ml # Bowel Movements 1 Exam General Appearance: Alert, Oriented X3, No acute distress HEENT: Atraumatic, Other (Tracheostomy) Neck: Other (Tracheostomy) Lungs: Other (MV sounds) Chest/Breasts: Other (HD catheter ) Cardiovascular: Regular rate, Normal S1, Normal S2 Abdomen: Other (Decreased bowel sounds; G-tube in place) Genitourinary: Other ([place]) Neuro: Other (Sedated) Skin: Dry, Intact Psych/Mental Status: Other (Sedated) General Appearance: Alert, Oriented X3, No acute distress HEENT: Atraumatic, Other (Tracheostomy) Neck: Other (Tracheostomy) Lungs: Other (MV sounds) Chest/Breasts: Other (HD catheter ) Cardiovascular: Regular rate, Normal S1, Normal S2 Abdomen: Other (Decreased bowel sounds; G-tube in place) Genitourinary: Other ([place]) Neuro: Other (Sedated) Skin: Dry, Intact Psych/Mental Status: Other (Sedated) Medications Current Medications Medications Dose Ordered Sig/Yousif Route Start Time Stop Time Status Last Admin Dose Admin Midazolam HCl 50 ml @ 1 mls/hr Q24H IV 05/25/24 06:30 05/29/24 09:11 5 MLS/HR Atorvastatin Calcium 40 mg HS NG 05/25/24 22:00 07/02/24 21:23 40 MG Ondansetron HCl 4 mg Q4HP PRN IV 05/25/24 10:45 Nitroglycerin 0.4 mg Q5MINP PRN SL 05/25/24 10:45 Bumetanide 2 mg BIDD IV 05/30/24 18:00 07/03/24 05:43 2 MG Aspirin 81 mg DAILY PO 06/10/24 10:00 07/03/24 10:12 81 MG Enteral Nutritional Formula 1,000 ml 40ML/HR GT 06/15/24 09:15 07/03/24 00:03 1,000 ML Albumin Human 100 ml @ 100 mls/hr PRN PRN IV 06/16/24 11:00 06/30/24 06:50 100 MLS/HR Sodium Chloride 10 ml QSHIFT@10,22 IV 06/17/24 22:00 07/03/24 10:13 10 ML Fentanyl Citrate 250 ml @ 2.5 mls/hr Q24H IV 06/17/24 17:30 06/30/24 21:48 2.5 MLS/HR Albuterol 2.5 mg Q6HR NEB 06/20/24 12:00 07/03/24 06:31 2.5 MG Ipratropium [place] 0.5 mg Q6HR NEB 06/20/24 12:00 07/03/24 06:31 0.5 MG Ceftriaxone Sodium/Dextrose 50 ml @ 50 mls/hr BID IV 06/21/24 22:00 07/03/24 10:13 50 MLS/HR Propofol 100 ml @ 4.263 mls/ hr [id number] IV 06/27/24 10:45 07/01/24 06:08 4.263 MLS/HR Vancomycin HCl 0 ml @ 0 mls/hr UD IV 06/27/24 23:45 Cancel Dexmedetomidine HCl 400 mcg/ Dextrose 100 ml @ 7.145 mls/ hr Q14H IV 06/28/24 15:00 06/29/24 16:19 7.145 MLS/HR Acetaminophen 650 mg Q6HP PRN PO 06/28/24 17:45 07/03/24 10:27 650 MG Norepinephrine Bitartrate 250 ml @ 3.75 mls/hr Q24H IV 06/29/24 05:30 06/29/24 06:05 3.75 MLS/HR Hydralazine HCl 10 mg Q6HPRN PRN IV 07/01/24 13:15 07/03/24 12:51 10 MG Carvedilol 3.125 mg Q12HR PO 07/02/24 10:00 07/03/24 10:13 3.125 MG Hydralazine HCl 10 mg Q8HR GT 07/02/24 14:00 07/03/24 14:10 10 MG Labetalol HCl 10 mg Q2HPRN PRN IV 07/03/24 14:15 07/03/24 14:36 10 MG Laboratory Results Laboratory Tests 07/03/24 03:00 Chemistry Test 07/03/24 03:00 Calcium Level 10.0 mg/dL (8.7-10.4) Magnesium Level 2.2 mg/dL (1.6-2.6) Urinalysis Test 05/25/24 08:30 05/28/24 01:30 Urine Color Yellow (Yellow) Urine Clarity Clear (Clear) Urine pH 7.5 (5.0-9.0) Urine Specific [place] 1.013 (1.001-1.035) Urine Protein 2+ (Negative) H Urine Ketones Negative (Negative) Urine Blood Negative /uL (Negative) Urine Nitrite Negative (Negative) Urine Bilirubin Negative (Negative) Urine Urobilinogen 8 mg/dL (Negative) H Urine Leukocyte Esterase Negative /uL (Negative) Urine RBC 5 /hpf (0 - 4) Urine WBC 1 /hpf (0 - 5) Urine Squamous Epithelial Cells Few /hpf (<5) Urine Bacteria None seen /hpf (None Seen) Urine Glucose Normal mg/dL (Normal) Urine Creatinine 248.25 mg/dL (30.0-125.0) H Urine Sodium 27 mmol/L (40-220) L Urine Total Protein 293.2 mg/dL (1-14) H Blood Gas Results Test 07/03/24 06:59 Arterial Blood pH 7.511 (7.350-7.450) FiO2 % 40.0 Microbiology Microbiology Date/Time Source Procedure Growth Status 06/28/24 00:38 Blood Blood Culture - Final NO GROWTH AFTER 5 DAYS OF INCUBATION. Complete 06/09/24 17:21 Urine - [place] Urine Culture - Final Complete 05/27/24 08:50 Nose MRSA Screen - Final Complete 05/25/24 06:50 Sputum Gram Stain - Final Complete 05/25/24 06:50 Respiratory Culture - Final Presumptive [place] albicans Complete Labs and/or images reviewed: Labs reviewed by me, Image(s) reviewed by me Assessment/Plan Assessment/Plan Impression: -severe sepsis with shock , Streptococcus pneumoniae -probable community-acquired pneumonia with Gram-positive cocci -sepsis with Gram-positive cocci -acute hypoxic respiratory failure with mechanical ventilation -obesity -acute kidney injury, anuric -NSTEMI, probably type 2 -hypoalbuminemia -? Angioedema on resolved -respiratory alkalosis -multifocal CVA -endocarditis Plan: Events: changing some PRN antiHTN (hydralazine 1st line, second-line labetalol), CPAP pass with good measures, NIF, RSBI,. We will try trach collar with CPAP at night. Continue HD, per primary plan continue placement for LTAC, social following. - for hypertension continue beta dulce and hydralazine afterload reduction per G-tube) -CHANG patient is on HD and Bumex ,-for pneumonia septic shock patient is on antibiotics ID following. -bronchodilators -antibiotic therapy per Infectious Disease -ventilator settings per sports nutritionist -nephrology consultation: HD -PUD, DVT prophylaxis -social service consultation. Patient stable for LTAC placement. Discussion with patient's son Jc on 07/01/2024 Critical care time spent with patient discussing and formulating plan of care: 40 minutes. This does not include time spent performing procedures. Plan discussed with: Other My Orders Orders - JENNIFER MORGAN MD Procedure Category Date Status Time Labetalol Hcl PHA 07/03/24 In Process (Labetalol Hcl) 14:15 Date of Service: Jul 03, 2024 Billing Provider: JENNIFER MORGAN MD Common Visit Codes: 54906-ICLCXAWA CARE-EACH +30MIN JENNIFER MORGAN MD Jul 03, 2024 16:37
--- NOTE | 2024-07-03 16:44 | DVHPN2 ---
Progress Note - Dictate Date Seen: Jul 03, 2024 Medical Necessity Reason Pt with a Central, PICC or Fol: No The following are medically ne: Central Line, Putnam Catheter Reason for putnam catheter: Strict I&O Subjective Clinically unchanged, remains oliguric/anuric vital signs Vital Sign Date Time Temp Pulse Resp B/P (MAP) Pulse Ox O2 Delivery O2 Flow Rate FiO2 07/03/24 16:00 104 21 207/111 (143) 97 07/03/24 16:00 Trach Collar 10 40 40 07/03/24 13:00 99.8 99.8 Total Intake and Output 07/02/24 07/02/24 07/03/24 15:00 23:00 07:00 Intake Total 50 ml 150 ml 150 ml Output Total 3050 ml 15 ml Balance 50 ml -2900 ml 135 ml medications Current Medications Medications Dose Ordered Sig/Yousif Route Start Time Stop Time Status Last Admin Dose Admin Midazolam HCl 50 ml @ 1 mls/hr Q24H IV 05/25/24 06:30 05/29/24 09:11 5 MLS/HR Atorvastatin Calcium 40 mg HS NG 05/25/24 22:00 07/02/24 21:23 40 MG Ondansetron HCl 4 mg Q4HP PRN IV 05/25/24 10:45 Nitroglycerin 0.4 mg Q5MINP PRN SL 05/25/24 10:45 Bumetanide 2 mg BIDD IV 05/30/24 18:00 07/03/24 05:43 2 MG Aspirin 81 mg DAILY PO 06/10/24 10:00 07/03/24 10:12 81 MG Enteral Nutritional Formula 1,000 ml 40ML/HR GT 06/15/24 09:15 07/03/24 00:03 1,000 ML Albumin Human 100 ml @ 100 mls/hr PRN PRN IV 06/16/24 11:00 06/30/24 06:50 100 MLS/HR Sodium Chloride 10 ml QSHIFT@10,22 IV 06/17/24 22:00 07/03/24 10:13 10 ML Fentanyl Citrate 250 ml @ 2.5 mls/hr Q24H IV 06/17/24 17:30 06/30/24 21:48 2.5 MLS/HR Albuterol 2.5 mg Q6HR NEB 06/20/24 12:00 07/03/24 06:31 2.5 MG Ipratropium [place] 0.5 mg Q6HR NEB 06/20/24 12:00 07/03/24 06:31 0.5 MG Ceftriaxone Sodium/Dextrose 50 ml @ 50 mls/hr BID IV 06/21/24 22:00 07/03/24 10:13 50 MLS/HR Propofol 100 ml @ 4.263 mls/ hr [id number] IV 06/27/24 10:45 07/01/24 06:08 4.263 MLS/HR Vancomycin HCl 0 ml @ 0 mls/hr UD IV 06/27/24 23:45 Cancel Dexmedetomidine HCl 400 mcg/ Dextrose 100 ml @ 7.145 mls/ hr Q14H IV 06/28/24 15:00 06/29/24 16:19 7.145 MLS/HR Acetaminophen 650 mg Q6HP PRN PO 06/28/24 17:45 07/03/24 10:27 650 MG Norepinephrine Bitartrate 250 ml @ 3.75 mls/hr Q24H IV 06/29/24 05:30 06/29/24 06:05 3.75 MLS/HR Hydralazine HCl 10 mg Q6HPRN PRN IV 07/01/24 13:15 07/03/24 12:51 10 MG Carvedilol 3.125 mg Q12HR PO 07/02/24 10:00 07/03/24 10:13 3.125 MG Hydralazine HCl 10 mg Q8HR GT 07/02/24 14:00 07/03/24 14:10 10 MG Labetalol HCl 10 mg Q2HPRN PRN IV 07/03/24 14:15 07/03/24 14:36 10 MG objective Gen: Intubated lungs: cta anteriorly cvs: no rub abd: soft, bowel sounds audible ext: + edema laboratory and microbiology Laboratory Tests 07/03/24 03:00 Test 07/03/24 03:00 Range/Units Serum Glucose 98 74-106 mg/dL Assessment/Plan Acute kidney injury likely ATN - with continued need for dialysis support Unknown recent baseline Severe sepsis Morbid obesity Ventilator-dependent hypoxic respiratory failure recs - dialysis tentatively y July 05 - we will remove Putnam catheter - noted ongoing efforts at LTAC placement Dietary Evaluation Review Comments: 1) If GI is accessible consider Jevity 1.2 @ 70ml/hr x 24hr continuous feed goal rate as tolerated 2) If pt remains NPO >7 days consider TPN to meet at least 75% of estimated needs 3) Advance pt diet when medically feasible to a 2gm Sodium diet modified per CLINICAL COURIER recommendations 4) Continue current plan of care Expected Outcomes/Goals: 1) Pt to receive nutrition support within 7 days of NPO status 2) Pt diet to advance 3) F/U in 2-3 days Plan discussed with: Other JONATHAN HALL MD Jul 03, 2024 16:43
[2024-07-03 16:58] LABS: Base Excess 0.2 mmol/L (-2.0-3.0)
[2024-07-04] VITALS (50 sets, daily range): BP systolic 70–215; BP diastolic 36–131; PULSE 79–110; RESP 9–42; TEMP 98.6–98.9; O2SAT 95–100
[2024-07-04 04:33] LABS: Basophils # (auto) 0 10 ^3/uL (0-0.2); Basophils % (auto) 0.4 % (0.0-2.0); Eosinophils # (auto) 0.1 10 ^3/uL (0-0.8); Eosinophils % (auto) 1.3 % (0.0-7.0); Hematocrit 27.7 % (36.0-46.0); Hemoglobin 8.9 g/dL (12.2-16.2); Lymphocytes # (auto) 1.1 10 ^3/uL (0.4-5.4); Lymphocytes % (auto) 15.6 % (10.0-50.0); Mean Corpuscular Hemoglobin 29.1 pg (28.0-32.0); Mean Corpuscular Hgb Conc. 32.2 g/dL (32.0-36.0); Mean Corpuscular Volume 90.2 fL (80.0-100.0); Monocytes # (auto) 0.9 10 ^3/uL (0-1.3); Monocytes % (auto) 12.4 % (0.0-12.0); Neutrophils # (auto) 5.1 10 ^3/uL (1.6-8.6); Neutrophils % (auto) 70.3 % (37.0-80.0); Nucleated Red Blood Cells % 0.2 %; Platelet Count (auto) 260 10^3/uL (140-450); Red Blood Cells 3.07 10^6/uL (4.0-5.20); White Blood Cell 7.2 10^3/uL (4.4-10.8)
[2024-07-04 04:46] LABS: Anion Gap 16 (5-15); Calcium 9.8 mg/dL (8.7-10.4); Carbon Dioxide 26 mmol/L (20-31); Potassium 3.6 mmol/L (3.5-5.1); Sodium 139 mmol/L (136-145)
[2024-07-04 04:51] LABS: Glucose 91 mg/dL (74-106)
[2024-07-04 04:52] LABS: BUN/Creatinine Ratio 7.4 (10.0-20.0); Magnesium 2.4 mg/dL (1.6-2.6)
[2024-07-04 05:07] LABS: Blood Urea Nitrogen 44 mg/dL (9-23); Chloride 97 mmol/L (98-107)
[2024-07-04 08:31] LABS: Base Excess -0.7 mmol/L (-2.0-3.0)
--- NOTE | 2024-07-04 09:06 | DVHPN2 ---
Progress Note - Dictate Date Seen: Jul 04, 2024 Medical Necessity Reason Pt with a Central, PICC or Fol: No The following are medically ne: Central Line, Putnam Catheter Reason for putnam catheter: Strict I&O Subjective No Significant overnight events vital signs Vital Sign Date Time Temp Pulse Resp B/P (MAP) Pulse Ox O2 Delivery O2 Flow Rate FiO2 07/04/24 08:57 94 146/75 07/04/24 08:30 33 95 07/04/24 08:00 98.6 98.6 07/04/24 07:30 Trach Collar 10 40 40 Total Intake and Output 07/03/24 07/03/24 07/04/24 15:00 23:00 07:00 Intake Total 50 ml 435 ml 272 ml Balance 50 ml 435 ml 272 ml medications Current Medications Medications Dose Ordered Sig/Yousif Route Start Time Stop Time Status Last Admin Dose Admin Midazolam HCl 50 ml @ 1 mls/hr Q24H IV 05/25/24 06:30 05/29/24 09:11 5 MLS/HR Atorvastatin Calcium 40 mg HS NG 05/25/24 22:00 07/03/24 21:57 40 MG Ondansetron HCl 4 mg Q4HP PRN IV 05/25/24 10:45 Nitroglycerin 0.4 mg Q5MINP PRN SL 05/25/24 10:45 Bumetanide 2 mg BIDD IV 05/30/24 18:00 07/04/24 05:54 2 MG Aspirin 81 mg DAILY PO 06/10/24 10:00 07/04/24 07:46 81 MG Enteral Nutritional Formula 1,000 ml 40ML/HR GT 06/15/24 09:15 07/03/24 00:03 1,000 ML Albumin Human 100 ml @ 100 mls/hr PRN PRN IV 06/16/24 11:00 06/30/24 06:50 100 MLS/HR Sodium Chloride 10 ml QSHIFT@10,22 IV 06/17/24 22:00 07/04/24 07:06 10 ML Fentanyl Citrate 250 ml @ 2.5 mls/hr Q24H IV 06/17/24 17:30 06/30/24 21:48 2.5 MLS/HR Albuterol 2.5 mg Q6HR NEB 06/20/24 12:00 07/04/24 06:38 2.5 MG Ipratropium [place] 0.5 mg Q6HR NEB 06/20/24 12:00 07/04/24 06:37 0.5 MG Ceftriaxone Sodium/Dextrose 50 ml @ 50 mls/hr BID IV 06/21/24 22:00 07/04/24 07:47 50 MLS/HR Propofol 100 ml @ 4.263 mls/ hr [id number] IV 06/27/24 10:45 07/01/24 06:08 4.263 MLS/HR Vancomycin HCl 0 ml @ 0 mls/hr UD IV 06/27/24 23:45 Cancel Dexmedetomidine HCl 400 mcg/ Dextrose 100 ml @ 7.145 mls/ hr Q14H IV 06/28/24 15:00 06/29/24 16:19 7.145 MLS/HR Acetaminophen 650 mg Q6HP PRN PO 06/28/24 17:45 07/03/24 10:27 650 MG Norepinephrine Bitartrate 250 ml @ 3.75 mls/hr Q24H IV 06/29/24 05:30 06/29/24 06:05 3.75 MLS/HR Hydralazine HCl 10 mg Q6HPRN PRN IV 07/01/24 13:15 07/03/24 12:51 10 MG Carvedilol 3.125 mg Q12HR PO 07/02/24 10:00 07/04/24 07:46 3.125 MG Hydralazine HCl 10 mg Q8HR GT 07/02/24 14:00 07/04/24 05:43 10 MG Labetalol HCl 10 mg Q2HPRN PRN IV 07/03/24 14:15 07/03/24 14:36 10 MG objective Gen: Intubated lungs: cta anteriorly cvs: no rub abd: soft, bowel sounds audible ext: + edema laboratory and microbiology Laboratory Tests 07/04/24 03:15 Test 07/04/24 03:15 Range/Units Serum Glucose 91 74-106 mg/dL Assessment/Plan Acute kidney injury likely ATN - with continued need for dialysis support Unknown recent baseline Severe sepsis Morbid obesity Ventilator-dependent hypoxic respiratory failure recs - dialysis July 05 - noted ongoing efforts at LTAC placement Dietary Evaluation Review Comments: 1) If GI is accessible consider Jevity 1.2 @ 70ml/hr x 24hr continuous feed goal rate as tolerated 2) If pt remains NPO >7 days consider TPN to meet at least 75% of estimated needs 3) Advance pt diet when medically feasible to a 2gm Sodium diet modified per BUSINESS OFFICE ASSOCIATE recommendations 4) Continue current plan of care Expected Outcomes/Goals: 1) Pt to receive nutrition support within 7 days of NPO status 2) Pt diet to advance 3) F/U in 2-3 days Plan discussed with: Other JONATHAN HALL MD Jul 04, 2024 09:06
--- NOTE | 2024-07-04 10:52 | DVHPN2 ---
Progress Note - Dictate Date Seen: Jul 04, 2024 Medical Necessity Reason Pt with a Central, PICC or Fol: No The following are medically ne: Central Line, Putnam Catheter Reason for putnam catheter: Strict I&O vital signs Vital Sign Date Time Temp Pulse Resp B/P (MAP) Pulse Ox O2 Delivery O2 Flow Rate FiO2 07/04/24 09:41 92 07/04/24 09:41 18 98 Trach Collar 10 40 40 07/04/24 09:30 138/79 (98) 07/04/24 08:00 98.6 98.6 Total Intake and Output 07/03/24 07/03/24 07/04/24 15:00 23:00 07:00 Intake Total 50 ml 435 ml 272 ml Balance 50 ml 435 ml 272 ml medications Current Medications Medications Dose Ordered Sig/Yousif Route Start Time Stop Time Status Last Admin Dose Admin Midazolam HCl 50 ml @ 1 mls/hr Q24H IV 05/25/24 06:30 05/29/24 09:11 5 MLS/HR Atorvastatin Calcium 40 mg HS NG 05/25/24 22:00 07/03/24 21:57 40 MG Ondansetron HCl 4 mg Q4HP PRN IV 05/25/24 10:45 Nitroglycerin 0.4 mg Q5MINP PRN SL 05/25/24 10:45 Bumetanide 2 mg BIDD IV 05/30/24 18:00 07/04/24 05:54 2 MG Aspirin 81 mg DAILY PO 06/10/24 10:00 07/04/24 07:46 81 MG Enteral Nutritional Formula 1,000 ml 40ML/HR GT 06/15/24 09:15 07/03/24 00:03 1,000 ML Albumin Human 100 ml @ 100 mls/hr PRN PRN IV 06/16/24 11:00 06/30/24 06:50 100 MLS/HR Sodium Chloride 10 ml QSHIFT@10,22 IV 06/17/24 22:00 07/04/24 07:06 10 ML Fentanyl Citrate 250 ml @ 2.5 mls/hr Q24H IV 06/17/24 17:30 06/30/24 21:48 2.5 MLS/HR Albuterol 2.5 mg Q6HR NEB 06/20/24 12:00 07/04/24 06:38 2.5 MG Ipratropium [place] 0.5 mg Q6HR NEB 06/20/24 12:00 07/04/24 06:37 0.5 MG Ceftriaxone Sodium/Dextrose 50 ml @ 50 mls/hr BID IV 06/21/24 22:00 07/04/24 07:47 50 MLS/HR Vancomycin HCl 0 ml @ 0 mls/hr UD IV 06/27/24 23:45 Cancel Dexmedetomidine HCl 400 mcg/ Dextrose 100 ml @ 7.145 mls/ hr Q14H IV 06/28/24 15:00 06/29/24 16:19 7.145 MLS/HR Acetaminophen 650 mg Q6HP PRN PO 06/28/24 17:45 07/03/24 10:27 650 MG Norepinephrine Bitartrate 250 ml @ 3.75 mls/hr Q24H IV 06/29/24 05:30 06/29/24 06:05 3.75 MLS/HR Hydralazine HCl 10 mg Q6HPRN PRN IV 07/01/24 13:15 07/03/24 12:51 10 MG Carvedilol 3.125 mg Q12HR PO 07/02/24 10:00 07/04/24 07:46 3.125 MG Hydralazine HCl 10 mg Q8HR GT 07/02/24 14:00 07/04/24 05:43 10 MG Labetalol HCl 10 mg Q2HPRN PRN IV 07/03/24 14:15 07/03/24 14:36 10 MG laboratory and microbiology Laboratory Tests 07/04/24 03:15 Test 07/04/24 03:15 Range/Units Serum Glucose 91 74-106 mg/dL Assessment/Plan Assessment/Plan Impression: Acute hypoxic respiratory failure On mechanical ventilator Acute kidney injury Lactic acidosis Metabolic acidosis Multifocal pneumonia, likely gram negative Pulmonary edema AE COPD Events: tolerates trache collar S/p trach CHANG HD-dependent pt awake following commands Awaiting LTAC placement no acute issues Plan: PS/trache collar trials through the day ac vent support prn only Continue bronchodilators. Pressors if necessary for hemodynamic support Titrate to keep mean arterial pressure greater than 65 mmHg. Monitor renal function Monitor electrolytes. Supplement as necessary. Monitor ins and outs. Nephrology recs appreciated. IV fluid hydration GI prophylaxis. DVT prophylaxis. Critical Care Time(min): 35 Dietary Evaluation Review Comments: 1) If GI is accessible consider Jevity 1.2 @ 70ml/hr x 24hr continuous feed goal rate as tolerated 2) If pt remains NPO >7 days consider TPN to meet at least 75% of estimated needs 3) Advance pt diet when medically feasible to a 2gm Sodium diet modified per [employer] recommendations 4) Continue current plan of care Expected Outcomes/Goals: 1) Pt to receive nutrition support within 7 days of NPO status 2) Pt diet to advance 3) F/U in 2-3 days Plan discussed with: Patient PHILLY DAVIS MD Jul 04, 2024 10:52
--- NOTE | 2024-07-04 15:38 | DVHPN2 ---
Subjective Events: on trach collar this afternoon 10L 40%. otherwise unchanged status. cpap nightly. Continue HD, per primary plan continue placement for LTAC, social following. Reviewed: Care Plan, H&P, Labs, Medications, Previous Orders, Radiology, Other (Consultations) Changes from previous H/P or p: No Changes General: Per HPI Objective Vitals Vital Signs Date Time Temp Pulse Resp B/P (MAP) Pulse Ox O2 Delivery O2 Flow Rate FiO2 07/04/24 15:00 96 33 182/87 (118) 97 07/04/24 14:00 Trach Collar 10 40 40 07/04/24 13:00 98.9 98.9 Intake/Output Intake and Output 07/04/24 07:00 Intake Total 757 ml Balance 757 ml Intake Oral 195 ml IV Total 100 ml Tube Feeding 462 ml # Bowel Movements 1 General Appearance: Alert, Oriented X3, No acute distress HEENT: Atraumatic, Other (Tracheostomy) Neck: Other (Tracheostomy) Lungs: Other (MV sounds) Chest/Breasts: Other (HD catheter ) Cardiovascular: Regular rate, Normal S1, Normal S2 Abdomen: Other (Decreased bowel sounds; G-tube in place) Genitourinary: Other ([place]) Neuro: Other (doesnt track, cough gag intact, pupil corneal intact. doesnt follow commands. ) Skin: Dry, Intact Psych/Mental Status: Other (Sedated) Medications Current Medications Medications Dose Ordered Sig/Yousif Route Start Time Stop Time Status Last Admin Dose Admin Midazolam HCl 50 ml @ 1 mls/hr Q24H IV 05/25/24 06:30 05/29/24 09:11 5 MLS/HR Atorvastatin Calcium 40 mg HS NG 05/25/24 22:00 07/03/24 21:57 40 MG Ondansetron HCl 4 mg Q4HP PRN IV 05/25/24 10:45 Nitroglycerin 0.4 mg Q5MINP PRN SL 05/25/24 10:45 Bumetanide 2 mg BIDD IV 05/30/24 18:00 07/04/24 05:54 2 MG Aspirin 81 mg DAILY PO 06/10/24 10:00 07/04/24 07:46 81 MG Enteral Nutritional Formula 1,000 ml 40ML/HR GT 06/15/24 09:15 07/03/24 00:03 1,000 ML Albumin Human 100 ml @ 100 mls/hr PRN PRN IV 06/16/24 11:00 06/30/24 06:50 100 MLS/HR Sodium Chloride 10 ml QSHIFT@10,22 IV 06/17/24 22:00 07/04/24 07:06 10 ML Fentanyl Citrate 250 ml @ 2.5 mls/hr Q24H IV 06/17/24 17:30 06/30/24 21:48 2.5 MLS/HR Albuterol 2.5 mg Q6HR NEB 06/20/24 12:00 07/04/24 11:39 2.5 MG Ipratropium [place] 0.5 mg Q6HR NEB 06/20/24 12:00 07/04/24 11:39 0.5 MG Ceftriaxone Sodium/Dextrose 50 ml @ 50 mls/hr BID IV 06/21/24 22:00 07/04/24 07:47 50 MLS/HR Vancomycin HCl 0 ml @ 0 mls/hr UD IV 06/27/24 23:45 Cancel Dexmedetomidine HCl 400 mcg/ Dextrose 100 ml @ 7.145 mls/ hr Q14H IV 06/28/24 15:00 06/29/24 16:19 7.145 MLS/HR Acetaminophen 650 mg Q6HP PRN PO 06/28/24 17:45 07/03/24 10:27 650 MG Norepinephrine Bitartrate 250 ml @ 3.75 mls/hr Q24H IV 06/29/24 05:30 06/29/24 06:05 3.75 MLS/HR Hydralazine HCl 10 mg Q6HPRN PRN IV 07/01/24 13:15 07/03/24 12:51 10 MG Carvedilol 3.125 mg Q12HR PO 07/02/24 10:00 07/04/24 07:46 3.125 MG Hydralazine HCl 10 mg Q8HR GT 07/02/24 14:00 07/04/24 13:14 10 MG Labetalol HCl 10 mg Q2HPRN PRN IV 07/03/24 14:15 07/03/24 14:36 10 MG Laboratory Results Laboratory Tests 07/04/24 03:15 Chemistry Test 07/04/24 03:15 Calcium Level 9.8 mg/dL (8.7-10.4) Magnesium Level 2.4 mg/dL (1.6-2.6) Urinalysis Test 05/25/24 08:30 05/28/24 01:30 Urine Color Yellow (Yellow) Urine Clarity Clear (Clear) Urine pH 7.5 (5.0-9.0) Urine Specific [place] 1.013 (1.001-1.035) Urine Protein 2+ (Negative) H Urine Ketones Negative (Negative) Urine Blood Negative /uL (Negative) Urine Nitrite Negative (Negative) Urine Bilirubin Negative (Negative) Urine Urobilinogen 8 mg/dL (Negative) H Urine Leukocyte Esterase Negative /uL (Negative) Urine RBC 5 /hpf (0 - 4) Urine WBC 1 /hpf (0 - 5) Urine Squamous Epithelial Cells Few /hpf (<5) Urine Bacteria None seen /hpf (None Seen) Urine Glucose Normal mg/dL (Normal) Urine Creatinine 248.25 mg/dL (30.0-125.0) H Urine Sodium 27 mmol/L (40-220) L Urine Total Protein 293.2 mg/dL (1-14) H Blood Gas Results Test 07/04/24 07:36 Arterial Blood pH 7.447 (7.350-7.450) FiO2 % 40.0 Microbiology Microbiology Date/Time Source Procedure Growth Status 06/28/24 00:38 Blood Blood Culture - Final NO GROWTH AFTER 5 DAYS OF INCUBATION. Complete 06/09/24 17:21 Urine - [place] Urine Culture - Final Complete 05/27/24 08:50 Nose MRSA Screen - Final Complete 05/25/24 06:50 Sputum Gram Stain - Final Complete 05/25/24 06:50 Respiratory Culture - Final Presumptive [place] albicans Complete Labs and/or images reviewed: Labs reviewed by me, Image(s) reviewed by me Assessment/Plan Assessment/Plan Impression: -severe sepsis with shock , Streptococcus pneumoniae -probable community-acquired pneumonia with Gram-positive cocci -sepsis with Gram-positive cocci -acute hypoxic respiratory failure with mechanical ventilation -obesity -acute kidney injury, anuric -NSTEMI, probably type 2 -hypoalbuminemia -? Angioedema on resolved -respiratory alkalosis -multifocal CVA -endocarditis Plan: Events: on trach collar this afternoon 10L 40%. otherwise unchanged status. cpap nightly. Continue HD, per primary plan continue placement for LTAC, social following. - for hypertension continue beta dulce and hydralazine afterload reduction per G-tube) -CHANG patient is on HD and Bumex ,-for pneumonia septic shock patient is on antibiotics ID following. -bronchodilators -antibiotic therapy per Infectious Disease -ventilator settings per backup sawyer -nephrology consultation: HD -PUD, DVT prophylaxis -social service consultation. Patient stable for LTAC placement. Discussion with patient's son Jc on 07/01/2024 Critical care time spent with patient discussing and formulating plan of care: 40 minutes. This does not include time spent performing procedures. Plan discussed with: Other Date of Service: Jul 04, 2024 Billing Provider: JENNIFER MORGAN MD Common Visit Codes: 98902-[id number] CARE-EACH +30MIN JENNIFER MORGAN MD Jul 04, 2024 15:38
--- NOTE | 2024-07-04 19:18 | DVHPN2 ---
Consult Progress Note Date Seen: Jul 03, 2024 Subjective Patient reports: Other (remains off pressures and off sedation , is on minimal vent aand tolerating tube feeding and is getting Viemex to help with urinatiion , pending placement at Ltac and is still undergoing CPAP trials ) Objective vital signs Vital Sign Date Time Temp Pulse Resp B/P (MAP) Pulse Ox O2 Delivery O2 Flow Rate FiO2 07/04/24 18:50 92 202/107 07/04/24 18:34 14 100 07/04/24 18:24 Trach Collar 10 N/A 07/04/24 16:00 98.7 98.7 Total Intake and Output 07/03/24 07/03/24 07/04/24 15:00 23:00 07:00 Intake Total 50 ml 435 ml 272 ml Balance 50 ml 435 ml 272 ml medications Current Medications Medications Dose Ordered Sig/Yousif Route Start Time Stop Time Status Last Admin Dose Admin Midazolam HCl 50 ml @ 1 mls/hr Q24H IV 05/25/24 06:30 05/29/24 09:11 5 MLS/HR Atorvastatin Calcium 40 mg HS NG 05/25/24 22:00 07/03/24 21:57 40 MG Ondansetron HCl 4 mg Q4HP PRN IV 05/25/24 10:45 Nitroglycerin 0.4 mg Q5MINP PRN SL 05/25/24 10:45 Bumetanide 2 mg BIDD IV 05/30/24 18:00 07/04/24 16:39 2 MG Aspirin 81 mg DAILY PO 06/10/24 10:00 07/04/24 07:46 81 MG Enteral Nutritional Formula 1,000 ml 40ML/HR GT 06/15/24 09:15 07/03/24 00:03 1,000 ML Albumin Human 100 ml @ 100 mls/hr PRN PRN IV 06/16/24 11:00 06/30/24 06:50 100 MLS/HR Sodium Chloride 10 ml QSHIFT@10,22 IV 06/17/24 22:00 07/04/24 07:06 10 ML Fentanyl Citrate 250 ml @ 2.5 mls/hr Q24H IV 06/17/24 17:30 06/30/24 21:48 2.5 MLS/HR Albuterol 2.5 mg Q6HR NEB 06/20/24 12:00 07/04/24 18:24 2.5 MG Ipratropium [place] 0.5 mg Q6HR NEB 06/20/24 12:00 07/04/24 18:24 0.5 MG Ceftriaxone Sodium/Dextrose 50 ml @ 50 mls/hr BID IV 06/21/24 22:00 07/04/24 07:47 50 MLS/HR Vancomycin HCl 0 ml @ 0 mls/hr UD IV 06/27/24 23:45 Cancel Dexmedetomidine HCl 400 mcg/ Dextrose 100 ml @ 7.145 mls/ hr Q14H IV 06/28/24 15:00 06/29/24 16:19 7.145 MLS/HR Acetaminophen 650 mg Q6HP PRN PO 06/28/24 17:45 07/03/24 10:27 650 MG Norepinephrine Bitartrate 250 ml @ 3.75 mls/hr Q24H IV 06/29/24 05:30 06/29/24 06:05 3.75 MLS/HR Hydralazine HCl 10 mg Q6HPRN PRN IV 07/01/24 13:15 07/04/24 16:11 10 MG Carvedilol 3.125 mg Q12HR PO 07/02/24 10:00 07/04/24 07:46 3.125 MG Hydralazine HCl 10 mg Q8HR GT 07/02/24 14:00 07/04/24 13:14 10 MG Labetalol HCl 10 mg Q2HPRN PRN IV 07/03/24 14:15 07/04/24 18:50 10 MG General Appearance: Cooperative. Well developed. Well nourished. NAD. intubated and sedated . morbidly obease Head Exam: Normal inspection Neck Exam: Normal inspection. Non-tender. Normal alignment Pulmonary/Respiratory: Chest non-tender. Clear bilateral breath sounds. minimal vent with traces of pressures and unable to ween off vent due to mentating well of sedation but continues to have signs of agitation Cardiovascular/Chest: No murmurs. No JVD. Abdominal Exam: Normal bowel sounds. Soft. Nontender. No hepatosplenomegaly. No masses Skin: no open wounds or lesions laboratory and microbiology Laboratory Tests 07/04/24 03:15 Test 07/04/24 03:15 Range/Units Serum Glucose 91 74-106 mg/dL Problem List/Assessment/Plan Problems(with codes): (1) CHF (congestive heart failure) (2) Sepsis (3) Pneumonia (4) Demand ischemia (5) Metabolic encephalopathy Problem List/Assessment/Plan Problem List: 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 concern for septic picture , patient was needing ventilatory support , vasopressures , steroids . no known history of drungs or smoking . no recent medications. orginally treated with cefapine and doxycycline but eventually put on dialysis and found strep pneumonia in blood , likely lung origin . found to have vegitation in the antrium and anterior mitral leflet which was confirmed on SAMIR as well as mitral regurgitation . MRI of brain concerning for possible small focus of subacute ischemia and the right periventricular region likely consistent with septic embolie . SAMIR showed 3 mm vegitation on the intermitral leftlet . currently on ceftriaxone therapy for endocarditis. negative for any type of hepatitis , urine drig screen was negative . no signs of septic embolism problem list - strep pneumonia , bacteremia , endocarditis , septic shock , septic emboli to brain , pneumonia, mitral valve regurgitation , CHF , acute renal failure on dialysis 2/: Difficult to ween off vent and has been having improved airspace opacities on chest xray and since has been started on Ceftriaxone 2 grams Q12 , chest Ct was done and there was no finding to suggest septic emboli or persistent plural effusions that could be keeping patients from being off the ventilator . Continue Ceftriaxone 2 grams every 12 hours for 6 weeks via piccline . prognosis overall is poor , may proceed with tracheostomy . no contraindications from infectious disease of additional infectious work up needed 2: underwent dialysis and tolerated procedure without any issues . Patient has a clean tracheostomy placed today without any complications and site appears clean. Patient is currently on FIO2 50% on trach . Continue ceftriaxone 2 grams every 12 hours for 6 weeks . If patients clinical status allows would recommend patient follow up with infectious disease in 6 weeks to repeat echocardiogram as well as determine if additional therapy is needed for endocarditis. 2: S/P tracheostomy with no signs of intolerance and still vent dependant . plan will be to continue antibiotics for 6 weeks of ceftriaxone for endocarditis and to follow up with infectious disease clinic in 6 weeks 06/25: remains vent dependant and on 6 of levofed . FIO2 50% and pressure dependant . tolerating tracheostomy and tube feeds via NG tube and underwent dialysis yesterday without any issues . continue antibiotic plan 06/26: chest xray shows mild vascular congestion 06/27: patient is levofed dependant and unclear what is contributing to overall hypotension. spoke with nursing staff to pursue aggressive sedation to see if patient will wake up and if patient is awake would consider cardiology reevaluation for potential cardiothoracic surgery 06/28: elevated temps as high as 100.2 , possibly related to agitation during CPAP 06/29: Patient has been switched off sedation to see if she can tolerate CPAP and potentially be weaned off the vent 06/30: MRI was done of the brain and shows asymmetrically decreased flow signal in the right M3 and M4 arterial branches compared to the left distal MCA arterial stenosis / occlusion is not excluded . CT chest was done and shows a bilateral lower lobe infiltrates slightly worse than previous , now a small left plural effusion 07/01: patients blood pressures have significantly improved and if off pressure support , holding good maps . new blood cultures are no growth to date 07/02: patient is off pressures and responding to antibiotics however is not able to wake up and not able to be weaned from the vent Plan: - due to patient undergone sub therapeutic dose of ceftriaxone for 1 week would extend patients 6 week course to 7 weeks , end of therapy will be 07/14/2024 - in light of worsening chest ct recommend getting a sputum culture - Continue ceftriaxone 2 grams every 12 hours for 6 weeks . If patients clinical status allows would recommend patient follow up with infectious disease in 6 weeks to repeat echocardiogram as well as determine if additional therapy is needed for endocarditis. -continue ceftriaxone 2 g twice daily, recommend for total six weeks for endocarditis. -on hemodialysis -rest of the medical management as per primary care team and pulmonology nephrology. - prognosis is poor Plan discussed with: Other Dietary Evaluation Review Comments: 1) If GI is accessible consider Jevity 1.2 @ 70ml/hr x 24hr continuous feed goal rate as tolerated 2) If pt remains NPO >7 days consider TPN to meet at least 75% of estimated needs 3) Advance pt diet when medically feasible to a 2gm Sodium diet modified per DIRECTOR APPOINTMENT recommendations 4) Continue current plan of care Expected Outcomes/Goals: 1) Pt to receive nutrition support within 7 days of NPO status 2) Pt diet to advance 3) F/U in 2-3 days JOSH VERNON MD Jul 04, 2024 19:18
--- NOTE | 2024-07-04 19:18 | DVHPN2 ---
Consult Progress Note Date Seen: Jul 04, 2024 Subjective Patient reports: Other (awake and following commands , is a bit lethargic and undergoing pressure support trials and appears to be tolerwating them so far ) Objective vital signs Vital Sign Date Time Temp Pulse Resp B/P (MAP) Pulse Ox O2 Delivery O2 Flow Rate FiO2 07/04/24 18:50 92 202/107 07/04/24 18:34 14 100 07/04/24 18:24 Trach Collar 10 N/A 07/04/24 16:00 98.7 98.7 Total Intake and Output 07/03/24 07/03/24 07/04/24 15:00 23:00 07:00 Intake Total 50 ml 435 ml 272 ml Balance 50 ml 435 ml 272 ml medications Current Medications Medications Dose Ordered Sig/Yousif Route Start Time Stop Time Status Last Admin Dose Admin Midazolam HCl 50 ml @ 1 mls/hr Q24H IV 05/25/24 06:30 05/29/24 09:11 5 MLS/HR Atorvastatin Calcium 40 mg HS NG 05/25/24 22:00 07/03/24 21:57 40 MG Ondansetron HCl 4 mg Q4HP PRN IV 05/25/24 10:45 Nitroglycerin 0.4 mg Q5MINP PRN SL 05/25/24 10:45 Bumetanide 2 mg BIDD IV 05/30/24 18:00 07/04/24 16:39 2 MG Aspirin 81 mg DAILY PO 06/10/24 10:00 07/04/24 07:46 81 MG Enteral Nutritional Formula 1,000 ml 40ML/HR GT 06/15/24 09:15 07/03/24 00:03 1,000 ML Albumin Human 100 ml @ 100 mls/hr PRN PRN IV 06/16/24 11:00 06/30/24 06:50 100 MLS/HR Sodium Chloride 10 ml QSHIFT@10,22 IV 06/17/24 22:00 07/04/24 07:06 10 ML Fentanyl Citrate 250 ml @ 2.5 mls/hr Q24H IV 06/17/24 17:30 06/30/24 21:48 2.5 MLS/HR Albuterol 2.5 mg Q6HR NEB 06/20/24 12:00 07/04/24 18:24 2.5 MG Ipratropium [place] 0.5 mg Q6HR NEB 06/20/24 12:00 07/04/24 18:24 0.5 MG Ceftriaxone Sodium/Dextrose 50 ml @ 50 mls/hr BID IV 06/21/24 22:00 07/04/24 07:47 50 MLS/HR Vancomycin HCl 0 ml @ 0 mls/hr UD IV 06/27/24 23:45 Cancel Dexmedetomidine HCl 400 mcg/ Dextrose 100 ml @ 7.145 mls/ hr Q14H IV 06/28/24 15:00 06/29/24 16:19 7.145 MLS/HR Acetaminophen 650 mg Q6HP PRN PO 06/28/24 17:45 07/03/24 10:27 650 MG Norepinephrine Bitartrate 250 ml @ 3.75 mls/hr Q24H IV 06/29/24 05:30 06/29/24 06:05 3.75 MLS/HR Hydralazine HCl 10 mg Q6HPRN PRN IV 07/01/24 13:15 07/04/24 16:11 10 MG Carvedilol 3.125 mg Q12HR PO 07/02/24 10:00 07/04/24 07:46 3.125 MG Hydralazine HCl 10 mg Q8HR GT 07/02/24 14:00 07/04/24 13:14 10 MG Labetalol HCl 10 mg Q2HPRN PRN IV 07/03/24 14:15 07/04/24 18:50 10 MG General Appearance: Cooperative. Well developed. Well nourished. NAD. intubated and sedated . morbidly obease Head Exam: Normal inspection Neck Exam: Normal inspection. Non-tender. Normal alignment Pulmonary/Respiratory: Chest non-tender. Clear bilateral breath sounds. minimal vent with traces of pressures and unable to ween off vent due to mentating well of sedation but continues to have signs of agitation Cardiovascular/Chest: No murmurs. No JVD. Abdominal Exam: Normal bowel sounds. Soft. Nontender. No hepatosplenomegaly. 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 concern for septic picture , patient was needing ventilatory support , vasopressures , steroids . no known history of drungs or smoking . no recent medications. orginally treated with cefapine and doxycycline but eventually put on dialysis and found strep pneumonia in blood , likely lung origin . found to have vegitation in the antrium and anterior mitral leflet which was confirmed on SAMIR as well as mitral regurgitation . MRI of brain concerning for possible small focus of subacute ischemia and the right periventricular region likely consistent with septic embolie . SAMIR showed 3 mm vegitation on the intermitral leftlet . currently on ceftriaxone therapy for endocarditis. negative for any type of hepatitis , urine drig screen was negative . no signs of septic embolism problem list - strep pneumonia , bacteremia , endocarditis , septic shock , septic emboli to brain , pneumonia, mitral valve regurgitation , CHF , acute renal failure on dialysis 2/4: Difficult to ween off vent and has been having improved airspace opacities on chest xray and since has been started on Ceftriaxone 2 grams Q12 , chest Ct was done and there was no finding to suggest septic emboli or persistent plural effusions that could be keeping patients from being off the ventilator . Continue Ceftriaxone 2 grams every 12 hours for 6 weeks via piccline . prognosis overall is poor , may proceed with tracheostomy . no contraindications from infectious disease of additional infectious work up needed 2/5: underwent dialysis and tolerated procedure without any issues . Patient has a clean tracheostomy placed today without any complications and site appears clean. Patient is currently on FIO2 50% on trach . Continue ceftriaxone 2 grams every 12 hours for 6 weeks . If patients clinical status allows would recommend patient follow up with infectious disease in 6 weeks to repeat echocardiogram as well as determine if additional therapy is needed for endocarditis. 2/6: S/P tracheostomy with no signs of intolerance and still vent dependant . plan will be to continue antibiotics for 6 weeks of ceftriaxone for endocarditis and to follow up with infectious disease clinic in 6 weeks 06/25: remains vent dependant and on 6 of levofed . FIO2 50% and pressure dependant . tolerating tracheostomy and tube feeds via NG tube and underwent dialysis yesterday without any issues . continue antibiotic plan 06/26: chest xray shows mild vascular congestion 06/27: patient is levofed dependant and unclear what is contributing to overall hypotension. spoke with nursing staff to pursue aggressive sedation to see if patient will wake up and if patient is awake would consider cardiology reevaluation for potential cardiothoracic surgery 06/28: elevated temps as high as 100.2 , possibly related to agitation during CPAP 06/29: Patient has been switched off sedation to see if she can tolerate CPAP and potentially be weaned off the vent 06/30: MRI was done of the brain and shows asymmetrically decreased flow signal in the right M3 and M4 arterial branches compared to the left distal MCA arterial stenosis / occlusion is not excluded . CT chest was done and shows a bilateral lower lobe infiltrates slightly worse than previous , now a small left plural effusion 07/01: patients blood pressures have significantly improved and if off pressure support , holding good maps . new blood cultures are no growth to date 07/02: patient is off pressures and responding to antibiotics however is not able to wake up and not able to be weaned from the vent 07/04: patient is awake and alert on pressure support Plan: - due to patient undergone sub therapeutic dose of ceftriaxone for 1 week would extend patients 6 week course to 7 weeks , end of therapy will be 07/14/2024 - in light of worsening chest ct recommend getting a sputum culture - Continue ceftriaxone 2 grams every 12 hours for 6 weeks . If patients clinical status allows would recommend patient follow up with infectious disease in 6 weeks to repeat echocardiogram as well as determine if additional therapy is needed for endocarditis. -continue ceftriaxone 2 g twice daily, recommend for total six weeks for endocarditis. -on hemodialysis -rest of the medical management as per primary care team and pulmonology nephrology. - prognosis is poor Plan discussed with: Other Dietary Evaluation Review Comments: 1) If GI is accessible consider Jevity 1.2 @ 70ml/hr x 24hr continuous feed goal rate as tolerated 2) If pt remains NPO >7 days consider TPN to meet at least 75% of estimated needs 3) Advance pt diet when medically feasible to a 2gm Sodium diet modified per [employer] recommendations 4) Continue current plan of care Expected Outcomes/Goals: 1) Pt to receive nutrition support within 7 days of NPO status 2) Pt diet to advance 3) F/U in 2-3 days JOSH VERNON MD Jul 04, 2024 19:18
[2024-07-05] VITALS (51 sets, daily range): BP systolic 93–207; BP diastolic 48–135; PULSE 84–113; RESP 12–36; TEMP 98.2–99.4; O2SAT 96–100
[2024-07-05 04:14] LABS: Basophils # (auto) 0 10 ^3/uL (0-0.2); Basophils % (auto) 0.6 % (0.0-2.0); Eosinophils # (auto) 0.2 10 ^3/uL (0-0.8); Eosinophils % (auto) 2.4 % (0.0-7.0); Hematocrit 29.2 % (36.0-46.0); Hemoglobin 9.4 g/dL (12.2-16.2); Lymphocytes # (auto) 1.3 10 ^3/uL (0.4-5.4); Lymphocytes % (auto) 17.6 % (10.0-50.0); Mean Corpuscular Hgb Conc. 32.2 g/dL (32.0-36.0); Mean Corpuscular Volume 90.2 fL (80.0-100.0); Monocytes # (auto) 0.9 10 ^3/uL (0-1.3); Monocytes % (auto) 12.5 % (0.0-12.0); Neutrophils % (auto) 66.9 % (37.0-80.0); Nucleated Red Blood Cells % 0.1 %; Platelet Count (auto) 309 10^3/uL (140-450); Red Blood Cells 3.24 10^6/uL (4.0-5.20); Red Cell Distribution Width 16.5 % (11.8-14.3); White Blood Cell 7.5 10^3/uL (4.4-10.8)
[2024-07-05 04:27] LABS: Potassium 3.9 mmol/L (3.5-5.1); Sodium 139 mmol/L (136-145)
[2024-07-05 04:28] LABS: Anion Gap 17 (5-15); Calcium 9.8 mg/dL (8.7-10.4); Carbon Dioxide 25 mmol/L (20-31)
[2024-07-05 04:33] LABS: Glucose 94 mg/dL (74-106)
[2024-07-05 04:41] LABS: BUN/Creatinine Ratio 8.2 (10.0-20.0); Blood Urea Nitrogen 54 mg/dL (9-23); Chloride 97 mmol/L (98-107)
[2024-07-05 04:42] LABS: Magnesium 2.6 mg/dL (1.6-2.6)
[2024-07-05] MEDS: SODIUM CHL 0.9% 1000 ML BAG XX ONE (07:00)
--- NOTE | 2024-07-05 09:07 | DVHPN2 ---
Subjective Patient encephalopathic Reviewed: Care Plan, H&P, Labs, Medications, Previous Orders, Radiology, Other (Consultations) Changes from previous H/P or p: No Changes General: Per HPI Objective Vitals Vital Signs Date Time Temp Pulse Resp B/P (MAP) Pulse Ox O2 Delivery O2 Flow Rate FiO2 07/05/24 08:00 98.3 93 31 156/87 (110) 98.3 07/05/24 07:30 100 07/05/24 07:30 Trach Collar 10 40 40 Intake/Output Intake and Output 07/05/24 07:00 Intake Total 553 ml Balance 553 ml Intake Oral 200 ml IV Total 50 ml Tube Feeding 303 ml # Bowel Movements 2 General Appearance: Alert, Oriented X3, No acute distress HEENT: Atraumatic, Other (Tracheostomy) Neck: Other (Tracheostomy) Lungs: Other (MV sounds) Chest/Breasts: Other (HD catheter ) Cardiovascular: Regular rate, Normal S1, Normal S2 Abdomen: Other (Decreased bowel sounds; G-tube in place) Genitourinary: Other ([place]) Neuro: Other (doesnt track, cough gag intact, pupil corneal intact. doesnt follow commands. ) Skin: Dry, Intact Psych/Mental Status: Other (Sedated) Medications Current Medications Medications Dose Ordered Sig/Yousif Route Start Time Stop Time Status Last Admin Dose Admin Midazolam HCl 50 ml @ 1 mls/hr Q24H IV 05/25/24 06:30 05/29/24 09:11 5 MLS/HR Atorvastatin Calcium 40 mg HS NG 05/25/24 22:00 07/04/24 22:10 40 MG Ondansetron HCl 4 mg Q4HP PRN IV 05/25/24 10:45 Nitroglycerin 0.4 mg Q5MINP PRN SL 05/25/24 10:45 Bumetanide 2 mg BIDD IV 05/30/24 18:00 07/05/24 05:34 2 MG Aspirin 81 mg DAILY PO 06/10/24 10:00 07/04/24 07:46 81 MG Enteral Nutritional Formula 1,000 ml 40ML/HR GT 06/15/24 09:15 07/05/24 05:34 1,000 ML Albumin Human 100 ml @ 100 mls/hr PRN PRN IV 06/16/24 11:00 06/30/24 06:50 100 MLS/HR Sodium Chloride 10 ml QSHIFT@10,22 IV 06/17/24 22:00 07/04/24 22:11 10 ML Fentanyl Citrate 250 ml @ 2.5 mls/hr Q24H IV 06/17/24 17:30 06/30/24 21:48 2.5 MLS/HR Albuterol 2.5 mg Q6HR NEB 06/20/24 12:00 07/05/24 06:57 2.5 MG Ipratropium [place] 0.5 mg Q6HR NEB 06/20/24 12:00 07/05/24 06:57 0.5 MG Ceftriaxone Sodium/Dextrose 50 ml @ 50 mls/hr BID IV 06/21/24 22:00 07/04/24 22:10 50 MLS/HR Vancomycin HCl 0 ml @ 0 mls/hr UD IV 06/27/24 23:45 Cancel Dexmedetomidine HCl 400 mcg/ Dextrose 100 ml @ 7.145 mls/ hr Q14H IV 06/28/24 15:00 06/29/24 16:19 7.145 MLS/HR Acetaminophen 650 mg Q6HP PRN PO 06/28/24 17:45 07/03/24 10:27 650 MG Norepinephrine Bitartrate 250 ml @ 3.75 mls/hr Q24H IV 06/29/24 05:30 06/29/24 06:05 3.75 MLS/HR Hydralazine HCl 10 mg Q6HPRN PRN IV 07/01/24 13:15 07/04/24 16:11 10 MG Carvedilol 3.125 mg Q12HR PO 07/02/24 10:00 07/04/24 22:10 3.125 MG Hydralazine HCl 10 mg Q8HR GT 07/02/24 14:00 07/05/24 05:33 10 MG Labetalol HCl 10 mg Q2HPRN PRN IV 07/03/24 14:15 07/04/24 18:50 10 MG Laboratory Results Laboratory Tests 07/05/24 03:45 Chemistry Test 07/05/24 03:45 Calcium Level 9.8 mg/dL (8.7-10.4) Magnesium Level 2.6 mg/dL (1.6-2.6) Urinalysis Test 05/25/24 08:30 05/28/24 01:30 Urine Color Yellow (Yellow) Urine Clarity Clear (Clear) Urine pH 7.5 (5.0-9.0) Urine Specific [place] 1.013 (1.001-1.035) Urine Protein 2+ (Negative) H Urine Ketones Negative (Negative) Urine Blood Negative /uL (Negative) Urine Nitrite Negative (Negative) Urine Bilirubin Negative (Negative) Urine Urobilinogen 8 mg/dL (Negative) H Urine Leukocyte Esterase Negative /uL (Negative) Urine RBC 5 /hpf (0 - 4) Urine WBC 1 /hpf (0 - 5) Urine Squamous Epithelial Cells Few /hpf (<5) Urine Bacteria None seen /hpf (None Seen) Urine Glucose Normal mg/dL (Normal) Urine Creatinine 248.25 mg/dL (30.0-125.0) H Urine Sodium 27 mmol/L (40-220) L Urine Total Protein 293.2 mg/dL (1-14) H Microbiology Microbiology Date/Time Source Procedure Growth Status 06/28/24 00:38 Blood Blood Culture - Final NO GROWTH AFTER 5 DAYS OF INCUBATION. Complete 06/09/24 17:21 Urine - [place] Urine Culture - Final Complete 05/27/24 08:50 Nose MRSA Screen - Final Complete 05/25/24 06:50 Sputum Gram Stain - Final Complete 05/25/24 06:50 Respiratory Culture - Final Presumptive Tara albicans Complete Labs and/or images reviewed: Labs reviewed by me, Image(s) reviewed by me Assessment/Plan Assessment/Plan Impression: -severe sepsis with shock , Streptococcus pneumoniae -probable community-acquired pneumonia with Gram-positive cocci -sepsis with Gram-positive cocci -acute hypoxic respiratory failure with mechanical ventilation -obesity -acute kidney injury, anuric -NSTEMI, probably type 2 -hypoalbuminemia -? Angioedema on resolved -respiratory alkalosis -multifocal CVA -endocarditis Plan: Events: Patient now on trach collar. Respiratory rate around 30. Plans for HD today. -continue current antihypertensives -bronchodilators -antibiotic therapy per Infectious Disease -head of bed greater than 30 -nephrology consultation: HD -PUD, DVT prophylaxis -social service consultation. Patient was stable for LTAC placement. Long discussion made with the patient's son, Jc yesterday. Critical care time spent with patient discussing and formulating plan of care: 40 minutes. This does not include time spent performing procedures. This medical document was created using an electronic medical record system with [employer] computerized dictation system. Although this document has been carefully reviewed, there may still be some phonetic and typographical errors. These areas are purely typographical due to imperfections of the software programs, and do not reflect any compromise in the patient's medical care. Plan discussed with: Patient, Other (RN) My Orders Orders - OMAR PARK NP Procedure Category Date Status Time Basic Metabolic Panel LAB 07/06/24 Verified 04:00 Chest Portable XY 07/06/24 Verified 04:00 Bed Rest With [facility] At [facility] 07/05/24 Verified 30-45 Deg 09:04 Date of Service: Jul 05, 2024 Billing Provider: OMAR PARK NP Common Visit Codes: 89343-[id number] CARE 30-74 MIN OMAR PARK NP Jul 05, 2024 09:07
--- NOTE | 2024-07-05 10:41 | DVHPN2 ---
Progress Note - Dictate Date Seen: Jul 05, 2024 Medical Necessity Reason Pt with a Central, PICC or Fol: No The following are medically ne: Central Line, Putnam Catheter Reason for putnam catheter: Strict I&O Subjective Ms. Pandya is a 53 years old right-handed female with a history of morbid obesity, hypertension, the patient was was brought to the [facility] on 05/25/24 with a chief company of altered mental status, respiratory distress. I have seen and examined the patient, I have talked to her nurse. Her eyes are closed, responds to touch stimuli but not to verbal. RN: responded to loud voice Urine culture, 05/25/2024: Negative Blood culture, 05/25/2024: Streptococcus pneumoniae UDS, 05/25/2024: Negative Urinalysis, 05/25/2024: WBC: 1, urine leukocyte esterase: Negative ABG, 05/25/2024: Metabolic acidosis, hypoxia, 05/26/2024: Metabolic acidosis, hypoxia, 05/27/24: Metabolic acidosis, hypoxia WBC/HB/PLT/MCV, 06/02/2024: 22.4/9/342/89.4 06/09/2024: 19.6/9.4/235/91.6, 06/12/2024: 8.2/9.2/205/90.6 BUN/CR, 05/26/2024: 62/7.01 06/02/2024: 123/6.59, 06/09/2024: 137/6.32, 06/12/2024: 71/4.33 HGB A1c, 05/25/2024: 5.6 Lactic acid, 05/25/2024: 3.6, 4.6, 4.2, 05/26/2024: 3.6 Troponin one high sensitivity, 05/25/2024: 1060, 1354, 1262 TBI/AST/ALT/AP, 05/26/2024: 2/246/167/98, 06/07/2024: 0.9/139/464/93 TG/HDL/LDL/HDL, 05/25/2024: 192/98/40/8 Vitamin B12, 06/02/2024: 836 TSH, 05/25/2024: 0.57 SAMIR, 06/15/2024: Vegetation anterior mitral leaflet Carotid Doppler, 06/15/2024: 1. There is no hemodynamically significant stenosis in the right common carotid and internal carotid arteries. There is elevated peak systolic velocity in the right external carotid artery. 2. Nonvisualization of the left carotid and vertebral arteries secondary to overlying bandage. Consider further evaluation with CTA neck Chest x-ray, 05/25/2024: 1. Distal tip of the endotracheal tube is approximately 5.5 cm above the level of the nik. 2. Poorly visualized enteric tube at its distal aspect. Appears to reach the gastroesophageal junction, although not visualized distal to this point. Correlate with clinical findings. 3. Bilateral airspace opacities and interstitial opacities, may be due to multifocal pneumonia or pulmonary edema in the appropriate clinical setting CT head, 05/25/2024: No gross acute intracranial process CT head, 06/02/24: 1. Interval development of 2 foci of subcortical parenchymal hemorrhage in the left frontal lobe. No mass effect or midline shift. 2. Moderate amount of fluid in the posterior nasopharynx likely related to intubation. Recommend suctioning to prevent aspiration. 3. Small bilateral mastoid effusions. We are in the process of reaching out to the nurse or physician in charge of the patient to convey the findings. CT head, 06/04/2024: Redemonstrated are 2 hyperdense foci in the subcortical left frontal lobe which may represent small foci of parenchymal hemorrhage. There is no significant surrounding edema or associated mass effect CT head, 06/06/2024: The 2 foci of left frontal subcortical hemorrhage are less conspicuous in the current exam partially resolved. No new foci of hemorrhage CT chest, 06/23/2024: 1. Bilateral lower lobe consolidations which may reflect atelectasis or pneumonia. No findings to suggest septic emboli. 2. Cardiomegaly. Chest, 06/28/2024: Bilateral lower lobe infiltrates slightly worse than on previous study. There is now a small left pleural effusion MRI head, 06/15/2024: Extensive periventricular and deep white matter signal abnormality most of which is likely chronic. Possible small focus of subacute ischemia in the right periventricular region. No definite acute intracranial hemorrhage on MRI. Clinical correlation and continued follow-up is recommended MRA head, 06/28/2024: Asymmetrically decreased flow signal in the right M3 and M4 arterial branches in comparison to the left. Distal MCA arterial stenosis/ occlusion is not excluded. Further evaluation with CT angiography is recommended if not already performed vital signs Vital Sign Date Time Temp Pulse Resp B/P (MAP) Pulse Ox O2 Delivery O2 Flow Rate FiO2 07/05/24 10:00 96 33 185/103 (130) 07/05/24 09:59 99 Trach Collar 10 40 40 07/05/24 08:00 98.3 98.3 Total Intake and Output 07/04/24 07/04/24 07/05/24 15:00 23:00 07:00 Intake Total 220 ml 333 ml Balance 220 ml 333 ml medications Current Medications Medications Dose Ordered Sig/Yousif Route Start Time Stop Time Status Last Admin Dose Admin Midazolam HCl 50 ml @ 1 mls/hr Q24H IV 05/25/24 06:30 05/29/24 09:11 5 MLS/HR Atorvastatin Calcium 40 mg HS NG 05/25/24 22:00 07/04/24 22:10 40 MG Ondansetron HCl 4 mg Q4HP PRN IV 05/25/24 10:45 Nitroglycerin 0.4 mg Q5MINP PRN SL 05/25/24 10:45 Bumetanide 2 mg BIDD IV 05/30/24 18:00 07/05/24 05:34 2 MG Aspirin 81 mg DAILY PO 06/10/24 10:00 07/05/24 09:37 81 MG Enteral Nutritional Formula 1,000 ml 40ML/HR GT 06/15/24 09:15 07/05/24 05:34 1,000 ML Albumin Human 100 ml @ 100 mls/hr PRN PRN IV 06/16/24 11:00 06/30/24 06:50 100 MLS/HR Sodium Chloride 10 ml QSHIFT@10,22 IV 06/17/24 22:00 07/05/24 10:00 10 ML Fentanyl Citrate 250 ml @ 2.5 mls/hr Q24H IV 06/17/24 17:30 06/30/24 21:48 2.5 MLS/HR Albuterol 2.5 mg Q6HR NEB 06/20/24 12:00 07/05/24 06:57 2.5 MG Ipratropium [place] 0.5 mg Q6HR NEB 06/20/24 12:00 07/05/24 06:57 0.5 MG Ceftriaxone Sodium/Dextrose 50 ml @ 50 mls/hr BID IV 06/21/24 22:00 07/05/24 09:36 50 MLS/HR Vancomycin HCl 0 ml @ 0 mls/hr UD IV 06/27/24 23:45 Cancel Dexmedetomidine HCl 400 mcg/ Dextrose 100 ml @ 7.145 mls/ hr Q14H IV 06/28/24 15:00 06/29/24 16:19 7.145 MLS/HR Acetaminophen 650 mg Q6HP PRN PO 06/28/24 17:45 07/03/24 10:27 650 MG Norepinephrine Bitartrate 250 ml @ 3.75 mls/hr Q24H IV 06/29/24 05:30 06/29/24 06:05 3.75 MLS/HR Hydralazine HCl 10 mg Q6HPRN PRN IV 07/01/24 13:15 07/04/24 16:11 10 MG Carvedilol 3.125 mg Q12HR PO 07/02/24 10:00 07/05/24 09:37 3.125 MG Hydralazine HCl 10 mg Q8HR GT 07/02/24 14:00 07/05/24 05:33 10 MG Labetalol HCl 10 mg Q2HPRN PRN IV 07/03/24 14:15 07/04/24 18:50 10 MG objective The patient is well-nourished and well-developed with no distress. Status post tracheostomy Status post PEG feeding tube insertion MENTAL STATUS: Subjective CRANIAL NERVES: Pupils are round and reactive. There is conjugated eye movement. No signs of facial weakness. There are gagging or coughing reflexes during oral/trach care. SENSATION: Response to touch MOTOR: Normal tone in the upper and lower extremity. Normal muscle bulk. No fasciculations. No spontaneous movement REFLEXES: Deep tendon reflexes are symmetrical. No pathological reflexes. CEREBELLAR/COORDINATION: Deferred GAIT/STATION: deferred. laboratory and microbiology Laboratory Tests 07/05/24 03:45 Test 07/05/24 03:45 Range/Units Serum Glucose 94 74-106 mg/dL Problem List Altered mental status/Coma Hypoxic encephalopathy secondary to respiratory failure Metabolic encephalopathy secondary to acidosis, sepsis, septic shock, kidney failure Multiple acute/subacute strokes Heart attack Pneumonia Sepsis, septic shock Endocarditis Acute on chronic kidney failure Acute petechial hemorrhage in the left frontal lobe, improving on follow-up CT Intermittent anisocoria, uncertain clinical significance Assessment/Plan Monitoring Supportive treatment ICU care Stabilize vitals Respiratory support/vent management Oxygen IV antibiotics GI prophylaxis/Protonix DVT prophylaxis/heparin Nephrology on case Pulmonology on case Infectious diseases on case She is s/p PEG feeding tube insertion and tracheostomy More recommendation per clinical course This medical document was created using an electronic medical record system with [employer] dictation system. Although this document has been carefully reviewed, there may still be some phonetic and typographical errors. These areas are purely typographical due to imperfections of the software programs, and do not reflect any compromise in the patient's medical care Prognosis poor Dietary Evaluation Review Comments: 1) If GI is accessible consider Jevity 1.2 @ 70ml/hr x 24hr continuous feed goal rate as tolerated 2) If pt remains NPO >7 days consider TPN to meet at least 75% of estimated needs 3) Advance pt diet when medically feasible to a 2gm Sodium diet modified per [employer] recommendations 4) Continue current plan of care Expected Outcomes/Goals: 1) Pt to receive nutrition support within 7 days of NPO status 2) Pt diet to advance 3) F/U in 2-3 days Plan discussed with: Other PILAR HOOD MD Jul 05, 2024 10:40
--- NOTE | 2024-07-05 13:55 | DVHPN2 ---
Progress Note Date Seen: Jul 05, 2024 Medical Necessity Reason Pt with a Central, PICC or Fol: No The following are medically ne: Central Line, Putnam Catheter Reason for putnam catheter: Strict I&O Objective vital signs Vital Sign Date Time Temp Pulse Resp B/P (MAP) Pulse Ox O2 Delivery O2 Flow Rate FiO2 07/05/24 12:30 98 32 147/99 (115) 100 07/05/24 12:00 98.2 98.2 07/05/24 12:00 Trach Collar 10 40 40 Total Intake and Output 07/04/24 07/04/24 07/05/24 14:59 22:59 06:59 Intake Total 220 ml 333 ml Balance 220 ml 333 ml medications Current Medications Medications Dose Ordered Sig/Yousif Route Start Time Stop Time Status Last Admin Dose Admin Midazolam HCl 50 ml @ 1 mls/hr Q24H IV 05/25/24 06:30 05/29/24 09:11 5 MLS/HR Atorvastatin Calcium 40 mg HS NG 05/25/24 22:00 07/04/24 22:10 40 MG Ondansetron HCl 4 mg Q4HP PRN IV 05/25/24 10:45 Nitroglycerin 0.4 mg Q5MINP PRN SL 05/25/24 10:45 Bumetanide 2 mg BIDD IV 05/30/24 18:00 07/05/24 05:34 2 MG Aspirin 81 mg DAILY PO 06/10/24 10:00 07/05/24 09:37 81 MG Enteral Nutritional Formula 1,000 ml 40ML/HR GT 06/15/24 09:15 07/05/24 05:34 1,000 ML Albumin Human 100 ml @ 100 mls/hr PRN PRN IV 06/16/24 11:00 06/30/24 06:50 100 MLS/HR Sodium Chloride 10 ml QSHIFT@10,22 IV 06/17/24 22:00 07/05/24 10:00 10 ML Fentanyl Citrate 250 ml @ 2.5 mls/hr Q24H IV 06/17/24 17:30 06/30/24 21:48 2.5 MLS/HR Albuterol 2.5 mg Q6HR NEB 06/20/24 12:00 07/05/24 11:58 2.5 MG Ipratropium [place] 0.5 mg Q6HR NEB 06/20/24 12:00 07/05/24 11:58 0.5 MG Ceftriaxone Sodium/Dextrose 50 ml @ 50 mls/hr BID IV 06/21/24 22:00 07/05/24 09:36 50 MLS/HR Vancomycin HCl 0 ml @ 0 mls/hr UD IV 06/27/24 23:45 Cancel Dexmedetomidine HCl 400 mcg/ Dextrose 100 ml @ 7.145 mls/ hr Q14H IV 06/28/24 15:00 06/29/24 16:19 7.145 MLS/HR Acetaminophen 650 mg Q6HP PRN PO 06/28/24 17:45 07/03/24 10:27 650 MG Norepinephrine Bitartrate 250 ml @ 3.75 mls/hr Q24H IV 06/29/24 05:30 06/29/24 06:05 3.75 MLS/HR Hydralazine HCl 10 mg Q6HPRN PRN IV 07/01/24 13:15 07/04/24 16:11 10 MG Carvedilol 3.125 mg Q12HR PO 07/02/24 10:00 07/05/24 09:37 3.125 MG Hydralazine HCl 10 mg Q8HR GT 07/02/24 14:00 07/05/24 05:33 10 MG Labetalol HCl 10 mg Q2HPRN PRN IV 07/03/24 14:15 07/04/24 18:50 10 MG Examination: GENERAL:Abnormal, LUNGS:Abnormal laboratory and microbiology Laboratory Tests 07/05/24 03:45 Test 07/05/24 03:45 Range/Units Serum Glucose 94 74-106 mg/dL Microbiology Date/Time Source Procedure Growth Status 06/28/24 00:38 Blood Blood Culture - Final NO GROWTH AFTER 5 DAYS OF INCUBATION. Complete 06/09/24 17:21 Urine - [place] Urine Culture - Final Complete 05/27/24 08:50 Nose MRSA Screen - Final Complete 05/25/24 06:50 Sputum Gram Stain - Final Complete 05/25/24 06:50 Respiratory Culture - Final Presumptive Tara albicans Complete Problem List/Assessment/Plan Problem List/Assessment/Plan Acute kidney injury ATN on acute dialysis Unknown baseline septic shock Gram + bacteremia endocarditis septic emboli Morbid obesity Strept PNA AMS Ventilator-dependent hypoxic respiratory failure now trach HD today nursing home prognosis is poor, family wishes to continue nursing home care continued HD Plan discussed with: Patient Dietary Evaluation Review Comments: 1) If GI is accessible consider Jevity 1.2 @ 70ml/hr x 24hr continuous feed goal rate as tolerated 2) If pt remains NPO >7 days consider TPN to meet at least 75% of estimated needs 3) Advance pt diet when medically feasible to a 2gm Sodium diet modified per TRANSIT SURVEY WORKER recommendations 4) Continue current plan of care Expected Outcomes/Goals: 1) Pt to receive nutrition support within 7 days of NPO status 2) Pt diet to advance 3) F/U in 2-3 days TOMY VALVERDE MD Jul 05, 2024 13:55
--- NOTE | 2024-07-05 21:15 | DVHPN2 ---
Progress Note - Dictate Date Seen: Jul 05, 2024 Medical Necessity Reason Pt with a Central, PICC or Fol: No The following are medically ne: Central Line, Putnam Catheter Reason for putnam catheter: Strict I&O Subjective Patient seen and examined at bedside. On mechanical ventilator. S/p trach Overnight events reviewed. vital signs Vital Sign Date Time Temp Pulse Resp B/P (MAP) Pulse Ox O2 Delivery O2 Flow Rate FiO2 07/05/24 18:22 110 18 97 07/05/24 18:20 176/101 07/05/24 18:16 Trach Collar 10.0 07/05/24 18:16 40 40 07/05/24 16:00 98.5 98.5 Total Intake and Output 07/04/24 07/04/24 07/05/24 15:00 23:00 07:00 Intake Total 220 ml 333 ml Balance 220 ml 333 ml medications Current Medications Medications Dose Ordered Sig/Yousif Route Start Time Stop Time Status Last Admin Dose Admin Midazolam HCl 50 ml @ 1 mls/hr Q24H IV 05/25/24 06:30 05/29/24 09:11 5 MLS/HR Atorvastatin Calcium 40 mg HS NG 05/25/24 22:00 07/04/24 22:10 40 MG Ondansetron HCl 4 mg Q4HP PRN IV 05/25/24 10:45 Nitroglycerin 0.4 mg Q5MINP PRN SL 05/25/24 10:45 Bumetanide 2 mg BIDD IV 05/30/24 18:00 07/05/24 18:20 2 MG Aspirin 81 mg DAILY PO 06/10/24 10:00 07/05/24 09:37 81 MG Enteral Nutritional Formula 1,000 ml 40ML/HR GT 06/15/24 09:15 07/05/24 05:34 1,000 ML Albumin Human 100 ml @ 100 mls/hr PRN PRN IV 06/16/24 11:00 06/30/24 06:50 100 MLS/HR Sodium Chloride 10 ml QSHIFT@10,22 IV 06/17/24 22:00 07/05/24 10:00 10 ML Fentanyl Citrate 250 ml @ 2.5 mls/hr Q24H IV 06/17/24 17:30 06/30/24 21:48 2.5 MLS/HR Albuterol 2.5 mg Q6HR NEB 06/20/24 12:00 07/05/24 18:16 2.5 MG Ipratropium [place] 0.5 mg Q6HR NEB 06/20/24 12:00 07/05/24 18:16 0.5 MG Ceftriaxone Sodium/Dextrose 50 ml @ 50 mls/hr BID IV 06/21/24 22:00 07/05/24 09:36 50 MLS/HR Vancomycin HCl 0 ml @ 0 mls/hr UD IV 06/27/24 23:45 Cancel Acetaminophen 650 mg Q6HP PRN PO 06/28/24 17:45 07/03/24 10:27 650 MG Norepinephrine Bitartrate 250 ml @ 3.75 mls/hr Q24H IV 06/29/24 05:30 06/29/24 06:05 3.75 MLS/HR Hydralazine HCl 10 mg Q6HPRN PRN IV 07/01/24 13:15 07/05/24 14:36 10 MG Carvedilol 3.125 mg Q12HR PO 07/02/24 10:00 07/05/24 09:37 3.125 MG Hydralazine HCl 10 mg Q8HR GT 07/02/24 14:00 07/05/24 14:54 10 MG Labetalol HCl 10 mg Q2HPRN PRN IV 07/03/24 14:15 07/04/24 18:50 10 MG objective Gen.: Patient lying in bed in medical ICU. On mechanical ventilator. S/p trach Head: Normocephalic, atraumatic. Eyes: PERRLA. Ears: Normal external anatomy. Throat: Endotracheal tube and orogastric tube in place. Neck: Trach in place. Chest: Transmitted breath sounds bilaterally. Decreased air entry bilaterally. No wheezing. Bibasilar crackles. Cardiovascular: Positive S1, positive S2. Regular rate and rhythm. Abdomen: Positive bowel sounds in all 4 quadrants. Soft, nontender, nondistended. : Putnam in place. Normal external genitalia. Rectal: Deferred. Skin: Warm, dry. Intact. Extremities: 2+ radial pulses bilaterally. No lower extremity edema. Neuro: Off sedation; awake, follows commands. laboratory and microbiology Laboratory Tests 07/05/24 03:45 Test 07/05/24 03:45 Range/Units Serum Glucose 94 74-106 mg/dL Assessment/Plan Impression: Acute hypoxic respiratory failure On mechanical ventilator Septic shock Elevated troponin Acute kidney injury Lactic acidosis Metabolic acidosis Multifocal pneumonia, likely gram negative Pulmonary edema AE COPD Events: Patient tolerates trach collar Patient awake and following commands. No acute issues S/p trach Trach care PEG tube in place Off sedation Off pressors, hemodynamically stable. Continue daily CPAP. Continue bronchodilators Continue antibiotics Blood cultures show no growth after 5 days Tube feeds for nutritional support Wound care Monitor hemoglobin - 9.4 g/dL Blood pressure control Diurese to euvolemia w/ Bumex BID Monitor renal function Monitor electrolytes, supplement as necessary CHANG - Hemodialysis per Nephrology Nephrology recs appreciated. Echo showed EF of 40%. SBT/KAREN Awaiting LTAC placement Poor prognosis, poor chance of meaningful recovery CT head revealed e/o multiple strokes. Neurology recommendations appreciated Labs and imaging reviewed. Rest of plan as noted below. Plan: s/p intubation on mechanical ventilator. PS/trach collar trials through the day AC vent support PRN only On AC mode; RR 18, VT 500, PEEP 5, FiO2 40% Titrate FIO2 to keep O2 saturation above 90%. VAP bundle. Daily ABG and CXR while intubated Off sedation Continue bronchodilators. Continue antibiotics. F/u cultures. Pressors if necessary for hemodynamic support Titrate to keep mean arterial pressure greater than 65 mmHg. Cardiology recs appreciated. Monitor renal function Monitor electrolytes. Supplement as necessary. Monitor ins and outs. Nephrology recs appreciated. IV fluid hydration GI prophylaxis. DVT prophylaxis. Prognosis: Poor given patient's multiple co-morbidities. Condition: Critical Rest of plan per hospitalist and other consultants. A total of 35 minutes of critical care time was spent reviewing the patient record, examining the patient, making a diagnostic and therapeutic plan, discussing this plan with the medical personnel, following up on diagnostic studies and following the patient for clinical stability excluding any and all procedures. At least 50% of this time was spent in direct, [id number] contact. Thank you, MIRNA Stratton, for allowing me to participate in this patient's care. Further recommendations will depend on the patient's clinical course. Please do not hesitate to contact me if you have any questions or concerns. This medical document was created using an electronic medical record system with [employer] system. Although these documentations are being carefully reviewed, there may still be some phonetic and typographical changes. The errors are purely typographical, due to imperfection on the software program, and do not reflect any compromise in the patient's medical care. Dietary Evaluation Review Comments: 1) If GI is accessible consider Jevity 1.2 @ 70ml/hr x 24hr continuous feed goal rate as tolerated 2) If pt remains NPO >7 days consider TPN to meet at least 75% of estimated needs 3) Advance pt diet when medically feasible to a 2gm Sodium diet modified per INTERMEDIATE MANAGER recommendations 4) Continue current plan of care Expected Outcomes/Goals: 1) Pt to receive nutrition support within 7 days of NPO status 2) Pt diet to advance 3) F/U in 2-3 days Plan discussed with: Other (LUZMARIA Corrales) Critical Care Time(min): 35 MELODY ELIZABETH MD Jul 05, 2024 21:15
[2024-07-06] VITALS (57 sets, daily range): BP systolic 95–186; BP diastolic 46–112; PULSE 90–116; RESP 10–40; TEMP 98.7–99.6; O2SAT 90–100
[2024-07-06 04:09] LABS: Calcium 9.9 mg/dL (8.7-10.4); Chloride 98 mmol/L (98-107); Sodium 139 mmol/L (136-145)
[2024-07-06 04:10] LABS: Anion Gap 15 (5-15); Carbon Dioxide 26 mmol/L (20-31)
[2024-07-06 04:15] LABS: BUN/Creatinine Ratio 7.2 (10.0-20.0); Glucose 94 mg/dL (74-106)
[2024-07-06 04:32] LABS: Blood Urea Nitrogen 36 mg/dL (9-23)
--- NOTE | 2024-07-06 04:49 | DVH ---
CHEST RADIOGRAPH Indication: pna Technique: Single frontal view of the chest was obtained Comparison: XY CHEST XRAY 1 VIEW on DOS: 07/01/24, XY CHEST XRAY 1 VIEW on DOS: 06/28/24, XY CHEST XRAY 1 VIEW on DOS: 06/26/24 FINDINGS: Lines and Tubes: Tracheostomy tube is unchanged. Right hemodialysis catheter terminates in the right atrium. Lungs: Bilateral airspace disease, unchanged. Pleura: No effusion. No pneumothorax. Cardiomediastinal contours: Stable. Bones: No acute osseous abnormality. IMPRESSION: 1. No significant interval change.
--- NOTE | 2024-07-06 08:50 | DVHPN2 ---
Subjective Patient encephalopathic Reviewed: Care Plan, H&P, Labs, Medications, Previous Orders, Radiology, Other (Consultations) Changes from previous H/P or p: No Changes General: Per HPI Objective Vitals Vital Signs Date Time Temp Pulse Resp B/P (MAP) Pulse Ox O2 Delivery O2 Flow Rate FiO2 07/06/24 06:00 99 20 185/104 (131) 100 07/06/24 06:00 Trach Collar 10 40 40 07/06/24 04:00 99.6 99.6 Intake/Output Intake and Output 07/06/24 07:00 Intake Total 431 ml Output Total 3000 ml Balance -2569 ml Intake Oral 130 ml IV Total 100 ml Tube Feeding 201 ml Output Urine Total 0 ml Other 3000 ml # Bowel Movements 1 General Appearance: Alert, mild distress HEENT: Atraumatic, Other (Tracheostomy) Neck: Other (Tracheostomy) Lungs: Other (MV sounds) Chest/Breasts: Other (HD catheter ) Cardiovascular: Regular rate, Normal S1, Normal S2 Abdomen: Other (Decreased bowel sounds; G-tube in place) Genitourinary: Other ([place]) Neuro: Other (Patient was open eyes and moves head to verbal and tactile stimuli.) Skin: Dry, Intact Psych/Mental Status: Other (Sedated) Medications Current Medications Medications Dose Ordered Sig/Yousif Route Start Time Stop Time Status Last Admin Dose Admin Midazolam HCl 50 ml @ 1 mls/hr Q24H IV 05/25/24 06:30 05/29/24 09:11 5 MLS/HR Atorvastatin Calcium 40 mg HS NG 05/25/24 22:00 07/05/24 22:13 40 MG Ondansetron HCl 4 mg Q4HP PRN IV 05/25/24 10:45 Nitroglycerin 0.4 mg Q5MINP PRN SL 05/25/24 10:45 Bumetanide 2 mg BIDD IV 05/30/24 18:00 07/06/24 05:48 2 MG Aspirin 81 mg DAILY PO 06/10/24 10:00 07/05/24 09:37 81 MG Enteral Nutritional Formula 1,000 ml 40ML/HR GT 06/15/24 09:15 07/05/24 05:34 1,000 ML Albumin Human 100 ml @ 100 mls/hr PRN PRN IV 06/16/24 11:00 06/30/24 06:50 100 MLS/HR Sodium Chloride 10 ml QSHIFT@10,22 IV 06/17/24 22:00 07/05/24 22:14 10 ML Fentanyl Citrate 250 ml @ 2.5 mls/hr Q24H IV 06/17/24 17:30 06/30/24 21:48 2.5 MLS/HR Albuterol 2.5 mg Q6HR NEB 06/20/24 12:00 07/06/24 00:10 2.5 MG Ipratropium [place] 0.5 mg Q6HR NEB 06/20/24 12:00 07/06/24 00:10 0.5 MG Ceftriaxone Sodium/Dextrose 50 ml @ 50 mls/hr BID IV 06/21/24 22:00 07/05/24 22:13 50 MLS/HR Vancomycin HCl 0 ml @ 0 mls/hr UD IV 06/27/24 23:45 Cancel Acetaminophen 650 mg Q6HP PRN PO 06/28/24 17:45 07/03/24 10:27 650 MG Norepinephrine Bitartrate 250 ml @ 3.75 mls/hr Q24H IV 06/29/24 05:30 06/29/24 06:05 3.75 MLS/HR Hydralazine HCl 10 mg Q6HPRN PRN IV 07/01/24 13:15 07/05/24 14:36 10 MG Labetalol HCl 10 mg Q2HPRN PRN IV 07/03/24 14:15 07/04/24 18:50 10 MG Carvedilol 6.5 mg Q12HR PO 07/06/24 10:00 Hydralazine HCl 25 mg Q8HR GT 07/06/24 14:00 Laboratory Results Laboratory Tests 07/05/24 03:45 07/06/24 03:15 Chemistry Test 07/06/24 03:15 Calcium Level 9.9 mg/dL (8.7-10.4) Urinalysis Test 05/25/24 08:30 05/28/24 01:30 Urine Color Yellow (Yellow) Urine Clarity Clear (Clear) Urine pH 7.5 (5.0-9.0) Urine Specific [place] 1.013 (1.001-1.035) Urine Protein 2+ (Negative) H Urine Ketones Negative (Negative) Urine Blood Negative /uL (Negative) Urine Nitrite Negative (Negative) Urine Bilirubin Negative (Negative) Urine Urobilinogen 8 mg/dL (Negative) H Urine Leukocyte Esterase Negative /uL (Negative) Urine RBC 5 /hpf (0 - 4) Urine WBC 1 /hpf (0 - 5) Urine Squamous Epithelial Cells Few /hpf (<5) Urine Bacteria None seen /hpf (None Seen) Urine Glucose Normal mg/dL (Normal) Urine Creatinine 248.25 mg/dL (30.0-125.0) H Urine Sodium 27 mmol/L (40-220) L Urine Total Protein 293.2 mg/dL (1-14) H Blood Gas Results Test 07/06/24 08:14 Arterial Blood pH 7.476 (7.350-7.450) FiO2 % 40.0 Microbiology Microbiology Date/Time Source Procedure Growth Status 06/28/24 00:38 Blood Blood Culture - Final NO GROWTH AFTER 5 DAYS OF INCUBATION. Complete 06/09/24 17:21 Urine - [place] Urine Culture - Final Complete 05/27/24 08:50 Nose MRSA Screen - Final Complete 05/25/24 06:50 Sputum Gram Stain - Final Complete 05/25/24 06:50 Respiratory Culture - Final Presumptive Tara albicans Complete Labs and/or images reviewed: Labs reviewed by me, Image(s) reviewed by me Assessment/Plan Assessment/Plan Impression: -severe sepsis with shock , Streptococcus pneumoniae -probable community-acquired pneumonia with Gram-positive cocci -sepsis with Gram-positive cocci -acute hypoxic respiratory failure with mechanical ventilation -obesity -acute kidney injury, anuric -NSTEMI, probably type 2 -hypoalbuminemia -? Angioedema on resolved -respiratory alkalosis -multifocal CVA -endocarditis Plan: Events: Repeat ABG today. Patient with accelerated hypertension overnight. Increase Coreg and hydralazine via G-tube -continue current antihypertensives -bronchodilators -antibiotic therapy per Infectious Disease -head of bed greater than 30 -nephrology consultation: HD -PUD, DVT prophylaxis Patient was awaiting LTAC placement. Critical care time spent with patient discussing and formulating plan of care: 40 minutes. This does not include time spent performing procedures. This medical document was created using an electronic medical record system with [employer] system. Although this document has been carefully reviewed, there may still be some phonetic and typographical errors. These areas are purely typographical due to imperfections of the software programs, and do not reflect any compromise in the patient's medical care. Plan discussed with: Patient, Other My Orders Orders - OMAR PARK NP Procedure Category Date Status Time Chest Portable XY 07/06/24 Resulted 04:00 Bed Rest With Hob At ROB 07/05/24 In Process 30-45 Deg 09:04 Carvedilol Tablet PHA 07/06/24 In Process (Coreg Tablet) 10:00 Hydralazine Hcl PHA 07/06/24 In Process Tablet (Apresoline 14:00 Abg W/ Co-Ox RT 07/06/24 Logged 07:58 Basic Metabolic Panel LAB 07/07/24 Verified 04:00 Complete Blood Count LAB 07/07/24 Verified 04:00 Date of Service: Jul 06, 2024 Billing Provider: OMAR PARK NP Common Visit Codes: 74573-ELJ/OBS DISCH DAY >30min OMAR PARK NP Jul 06, 2024 08:50
[2024-07-06] MEDS: CARVEDILOL 3.125 MG TAB PO SCH ×2 (11:55→21:54)
[2024-07-06] MEDS ORDERED: hydrALAZINE HCL 10 MG TAB GT SCH (14:00)
[2024-07-06] MEDS: hydrALAZINE HCL 25 MG TAB GT SCH (14:39)
--- NOTE | 2024-07-06 17:38 | DVHPN2 ---
Progress Note Date Seen: Jul 06, 2024 Medical Necessity Reason Pt with a Central, PICC or Fol: No The following are medically ne: Central Line, [place]nam Catheter Reason for putnam catheter: Strict I&O Subjective Patient reports: Other Review of Systems: Deferred Objective vital signs Vital Sign Date Time Temp Pulse Resp B/P (MAP) Pulse Ox O2 Delivery O2 Flow Rate FiO2 07/06/24 17:36 141/82 07/06/24 16:30 106 34 91 07/06/24 16:10 99.1 99.1 07/06/24 16:00 Trach Collar 10 40 40 Total Intake and Output 07/05/24 07/05/24 07/06/24 15:00 23:00 07:00 Intake Total 50 ml 381 ml Output Total 0 ml 3000 ml Balance 50 ml 0 ml -2619 ml medications Current Medications Medications Dose Ordered Sig/Yousif Route Start Time Stop Time Status Last Admin Dose Admin Midazolam HCl 50 ml @ 1 mls/hr Q24H IV 05/25/24 06:30 05/29/24 09:11 5 MLS/HR Atorvastatin Calcium 40 mg HS NG 05/25/24 22:00 07/05/24 22:13 40 MG Ondansetron HCl 4 mg Q4HP PRN IV 05/25/24 10:45 Nitroglycerin 0.4 mg Q5MINP PRN SL 05/25/24 10:45 Bumetanide 2 mg BIDD IV 05/30/24 18:00 07/06/24 17:36 2 MG Aspirin 81 mg DAILY PO 06/10/24 10:00 07/06/24 10:15 81 MG Enteral Nutritional Formula 1,000 ml 40ML/HR GT 06/15/24 09:15 07/05/24 05:34 1,000 ML Albumin Human 100 ml @ 100 mls/hr PRN PRN IV 06/16/24 11:00 06/30/24 06:50 100 MLS/HR Sodium Chloride 10 ml QSHIFT@10,22 IV 06/17/24 22:00 07/06/24 10:16 10 ML Fentanyl Citrate 250 ml @ 2.5 mls/hr Q24H IV 06/17/24 17:30 06/30/24 21:48 2.5 MLS/HR Albuterol 2.5 mg Q6HR NEB 06/20/24 12:00 07/06/24 11:26 2.5 MG Ipratropium [place] 0.5 mg Q6HR NEB 06/20/24 12:00 07/06/24 11:26 0.5 MG Ceftriaxone Sodium/Dextrose 50 ml @ 50 mls/hr BID IV 06/21/24 22:00 07/06/24 10:15 50 MLS/HR Vancomycin HCl 0 ml @ 0 mls/hr UD IV 06/27/24 23:45 Cancel Acetaminophen 650 mg Q6HP PRN PO 06/28/24 17:45 07/03/24 10:27 650 MG Norepinephrine Bitartrate 250 ml @ 3.75 mls/hr Q24H IV 06/29/24 05:30 06/29/24 06:05 3.75 MLS/HR Hydralazine HCl 10 mg Q6HPRN PRN IV 07/01/24 13:15 07/06/24 14:53 10 MG Labetalol HCl 10 mg Q2HPRN PRN IV 07/03/24 14:15 07/04/24 18:50 10 MG Carvedilol 6.25 mg Q12HR PO 07/06/24 22:00 Hydralazine HCl 25 mg Q8HR GT 07/06/24 14:39 laboratory and microbiology Laboratory Tests 07/06/24 03:15 07/05/24 03:45 Test 07/06/24 03:15 Range/Units Serum Glucose 94 74-106 mg/dL Microbiology Date/Time Source Procedure Growth Status 06/28/24 00:38 Blood Blood Culture - Final NO GROWTH AFTER 5 DAYS OF INCUBATION. Complete 06/09/24 17:21 Urine - [place] Urine Culture - Final Complete 05/27/24 08:50 Nose MRSA Screen - Final Complete 05/25/24 06:50 Sputum Gram Stain - Final Complete 05/25/24 06:50 Respiratory Culture - Final Presumptive Tara albicans Complete Problem List/Assessment/Plan Problem List/Assessment/Plan Acute kidney injury ATN on acute dialysis Unknown baseline septic shock Gram + bacteremia endocarditis septic emboli Morbid obesity Strept PNA AMS Ventilator-dependent hypoxic respiratory failure now trach recs HD 07/07 Plan discussed with: Other Dietary Evaluation Review Comments: 1) If GI is accessible consider Jevity 1.2 @ 70ml/hr x 24hr continuous feed goal rate as tolerated 2) If pt remains NPO >7 days consider TPN to meet at least 75% of estimated needs 3) Advance pt diet when medically feasible to a 2gm Sodium diet modified per WASHER OPERATOR recommendations 4) Continue current plan of care Expected Outcomes/Goals: 1) Pt to receive nutrition support within 7 days of NPO status 2) Pt diet to advance 3) F/U in 2-3 days LAN CHOWDHURY MD Jul 06, 2024 17:38
--- NOTE | 2024-07-06 23:20 | DVHPN2 ---
Progress Note - Dictate Date Seen: Jul 06, 2024 Medical Necessity Reason Pt with a Central, PICC or Fol: No The following are medically ne: Central Line Subjective Patient seen and examined at bedside. On mechanical ventilator. S/p trach Overnight events reviewed. vital signs Vital Sign Date Time Temp Pulse Resp B/P (MAP) Pulse Ox O2 Delivery O2 Flow Rate FiO2 07/06/24 21:54 108 184/103 07/06/24 19:00 24 98 07/06/24 18:07 Trach Collar 10 40 Cool Aerosol 40 07/06/24 16:10 99.1 99.1 Total Intake and Output 07/05/24 07/05/24 07/06/24 15:00 23:00 07:00 Intake Total 50 ml 381 ml Output Total 0 ml 3000 ml Balance 50 ml 0 ml -2619 ml medications Current Medications Medications Dose Ordered Sig/Yousif Route Start Time Stop Time Status Last Admin Dose Admin Midazolam HCl 50 ml @ 1 mls/hr Q24H IV 05/25/24 06:30 05/29/24 09:11 5 MLS/HR Atorvastatin Calcium 40 mg HS NG 05/25/24 22:00 07/06/24 21:46 40 MG Ondansetron HCl 4 mg Q4HP PRN IV 05/25/24 10:45 Nitroglycerin 0.4 mg Q5MINP PRN SL 05/25/24 10:45 Aspirin 81 mg DAILY PO 06/10/24 10:00 07/06/24 10:15 81 MG Enteral Nutritional Formula 1,000 ml 40ML/HR GT 06/15/24 09:15 07/05/24 05:34 1,000 ML Albumin Human 100 ml @ 100 mls/hr PRN PRN IV 06/16/24 11:00 06/30/24 06:50 100 MLS/HR Sodium Chloride 10 ml QSHIFT@10,22 IV 06/17/24 22:00 07/06/24 21:46 10 ML Fentanyl Citrate 250 ml @ 2.5 mls/hr Q24H IV 06/17/24 17:30 06/30/24 21:48 2.5 MLS/HR Albuterol 2.5 mg Q6HR NEB 06/20/24 12:00 07/06/24 18:07 2.5 MG Ipratropium [place] 0.5 mg Q6HR NEB 06/20/24 12:00 07/06/24 18:07 0.5 MG Ceftriaxone Sodium/Dextrose 50 ml @ 50 mls/hr BID IV 06/21/24 22:00 07/06/24 21:45 50 MLS/HR Vancomycin HCl 0 ml @ 0 mls/hr UD IV 06/27/24 23:45 Cancel Acetaminophen 650 mg Q6HP PRN PO 06/28/24 17:45 07/03/24 10:27 650 MG Norepinephrine Bitartrate 250 ml @ 3.75 mls/hr Q24H IV 06/29/24 05:30 06/29/24 06:05 3.75 MLS/HR Hydralazine HCl 10 mg Q6HPRN PRN IV 07/01/24 13:15 07/06/24 14:53 10 MG Labetalol HCl 10 mg Q2HPRN PRN IV 07/03/24 14:15 07/04/24 18:50 10 MG Carvedilol 6.25 mg Q12HR PO 07/06/24 22:00 07/06/24 21:54 6.25 MG Hydralazine HCl 25 mg Q8HR GT 07/06/24 14:39 07/06/24 21:53 25 MG objective Gen.: Patient lying in bed in medical ICU. On mechanical ventilator. S/p trach Head: Normocephalic, atraumatic. Eyes: PERRLA. Ears: Normal external anatomy. Throat: Endotracheal tube and orogastric tube in place. Neck: Trach in place. Chest: Transmitted breath sounds bilaterally. Decreased air entry bilaterally. No wheezing. Bibasilar crackles. Cardiovascular: Positive S1, positive S2. Regular rate and rhythm. Abdomen: Positive bowel sounds in all 4 quadrants. Soft, nontender, nondistended. : Potter in place. Normal external genitalia. Rectal: Deferred. Skin: Warm, dry. Intact. Extremities: 2+ radial pulses bilaterally. No lower extremity edema. Neuro: Off sedation; awake, follows commands. laboratory and microbiology Laboratory Tests 07/06/24 03:15 07/05/24 03:45 Test 07/06/24 03:15 Range/Units Serum Glucose 94 74-106 mg/dL Assessment/Plan Impression: Acute hypoxic respiratory failure On mechanical ventilator Septic shock Elevated troponin Acute kidney injury Lactic acidosis Metabolic acidosis Multifocal pneumonia, likely gram negative Pulmonary edema AE COPD Events: Patient tolerating trach collar, currently on 10 LPM via trach collar. Patient awake and following commands. No acute issues S/p trach Trach care Pulmonary toileting PEG tube in place S/p hemodialysis yesterday, removed 3 liters. Off sedation Off pressors, hemodynamically stable. Continue daily CPAP. Continue bronchodilators Continue antibiotics Blood cultures show no growth after 5 days Tube feeds for nutritional support Wound care Monitor hemoglobin - 9.4 g/dL Blood pressure control Diurese to euvolemia w/ Bumex BID Monitor renal function Monitor electrolytes, supplement as necessary CHANG - Hemodialysis per Nephrology Nephrology recs appreciated. Echo showed EF of 40%. SBT/KAREN Awaiting LTAC placement Poor prognosis, poor chance of meaningful recovery CT head revealed e/o multiple strokes. Neurology recommendations appreciated Labs and imaging reviewed. Rest of plan as noted below. Plan: s/p trach, on trach collar. PS/trach collar trials through the day AC vent support PRN only Currently on 10 LPM via trach collar. Titrate to keep O2 saturation above 90%. VAP bundle. Daily ABG and CXR while intubated Off sedation Continue bronchodilators. Continue antibiotics. F/u cultures. Pressors if necessary for hemodynamic support Titrate to keep mean arterial pressure greater than 65 mmHg. Cardiology recs appreciated. Monitor renal function Monitor electrolytes. Supplement as necessary. Monitor ins and outs. Nephrology recs appreciated. IV fluid hydration GI prophylaxis. DVT prophylaxis. Prognosis: Poor given patient's multiple co-morbidities. Condition: Critical Rest of plan per hospitalist and other consultants. A total of 35 minutes of critical care time was spent reviewing the patient record, examining the patient, making a diagnostic and therapeutic plan, discussing this plan with the medical personnel, following up on diagnostic studies and following the patient for clinical stability excluding any and all procedures. At least 50% of this time was spent in direct, [id number] contact. Thank you, MIRNA [place], for allowing me to participate in this patient's care. Further recommendations will depend on the patient's clinical course. Please do not hesitate to contact me if you have any questions or concerns. This medical document was created using an electronic medical record system with [employer] dictation system. Although these documentations are being carefully reviewed, there may still be some phonetic and typographical changes. The errors are purely typographical, due to imperfection on the software program, and do not reflect any compromise in the patient's medical care. Dietary Evaluation Review Comments: 1) If GI is accessible consider Jevity 1.2 @ 70ml/hr x 24hr continuous feed goal rate as tolerated 2) If pt remains NPO >7 days consider TPN to meet at least 75% of estimated needs 3) Advance pt diet when medically feasible to a 2gm Sodium diet modified per ASSOCIATE CIVIL ENGINEER recommendations 4) Continue current plan of care Expected Outcomes/Goals: 1) Pt to receive nutrition support within 7 days of NPO status 2) Pt diet to advance 3) F/U in 2-3 days Plan discussed with: Other (RN Lillie) Critical Care Time(min): 35 MELODY ELIZABETH MD Jul 06, 2024 23:20
[2024-07-07] VITALS (46 sets, daily range): BP systolic 76–204; BP diastolic 36–123; PULSE 85–122; RESP 13–38; TEMP 98.8–99.7; O2SAT 95–100
[2024-07-07 03:23] LABS: Basophils # (auto) 0 10 ^3/uL (0-0.2); Basophils % (auto) 0.4 % (0.0-2.0); Eosinophils # (auto) 0.2 10 ^3/uL (0-0.8); Eosinophils % (auto) 2.1 % (0.0-7.0); Hemoglobin 9.5 g/dL (12.2-16.2); Lymphocytes # (auto) 1.9 10 ^3/uL (0.4-5.4); Mean Corpuscular Hemoglobin 28.8 pg (28.0-32.0); Mean Corpuscular Hgb Conc. 31.7 g/dL (32.0-36.0); Mean Corpuscular Volume 90.9 fL (80.0-100.0); Monocytes # (auto) 1.1 10 ^3/uL (0-1.3); Monocytes % (auto) 12.5 % (0.0-12.0); Neutrophils # (auto) 5.7 10 ^3/uL (1.6-8.6); Nucleated Red Blood Cells % 0.2 %; Platelet Count (auto) 297 10^3/uL (140-450); Red Cell Distribution Width 16.3 % (11.8-14.3); White Blood Cell 8.8 10^3/uL (4.4-10.8)
[2024-07-07 03:28] LABS: Anion Gap 15 (5-15); Carbon Dioxide 26 mmol/L (20-31); Chloride 98 mmol/L (98-107); Potassium 3.7 mmol/L (3.5-5.1); Sodium 139 mmol/L (136-145)
[2024-07-07 03:29] LABS: Calcium 9.9 mg/dL (8.7-10.4)
[2024-07-07 03:36] LABS: Blood Urea Nitrogen 50 mg/dL (9-23); Glucose 118 mg/dL (74-106)
--- NOTE | 2024-07-07 08:22 | DVHPN2 ---
Subjective Patient with neurological deficits. Reviewed: Care Plan, H&P, Labs, Medications, Previous Orders, Radiology, Other (Consultations) Changes from previous H/P or p: No Changes General: Per HPI Objective Vitals Vital Signs Date Time Temp Pulse Resp B/P (MAP) Pulse Ox O2 Delivery O2 Flow Rate FiO2 07/07/24 06:30 111 17 117/72 (87) 98 07/07/24 06:00 Trach Collar 10 40 40 07/07/24 04:00 99.4 99.4 Intake/Output Intake and Output 07/07/24 07:00 Intake Total 1076 ml Output Total 100 ml Balance 976 ml Intake Oral 150 ml IV Total 100 ml Tube Feeding 826 ml Output Urine Total 0 ml Stool Total 100 ml General Appearance: Alert, mild distress HEENT: Atraumatic, Other (Tracheostomy) Neck: Other (Tracheostomy) Lungs: Other (MV sounds) Chest/Breasts: Other (HD catheter ) Cardiovascular: Regular rate, Normal S1, Normal S2 Abdomen: Other (Decreased bowel sounds; G-tube in place) Genitourinary: Other ([place]ter[place]) Neuro: Other (Patient was open eyes and moves head to verbal and tactile stimuli.) Skin: Dry, Intact Psych/Mental Status: Other (Sedated) Medications Current Medications Medications Dose Ordered Sig/Yousif Route Start Time Stop Time Status Last Admin Dose Admin Midazolam HCl 50 ml @ 1 mls/hr Q24H IV 05/25/24 06:30 05/29/24 09:11 5 MLS/HR Atorvastatin Calcium 40 mg HS NG 05/25/24 22:00 07/06/24 21:46 40 MG Ondansetron HCl 4 mg Q4HP PRN IV 05/25/24 10:45 Nitroglycerin 0.4 mg Q5MINP PRN SL 05/25/24 10:45 Aspirin 81 mg DAILY PO 06/10/24 10:00 07/06/24 10:15 81 MG Enteral Nutritional Formula 1,000 ml 40ML/HR GT 06/15/24 09:15 07/07/24 05:31 1,000 ML Albumin Human 100 ml @ 100 mls/hr PRN PRN IV 06/16/24 11:00 06/30/24 06:50 100 MLS/HR Sodium Chloride 10 ml QSHIFT@10,22 IV 06/17/24 22:00 07/06/24 21:46 10 ML Fentanyl Citrate 250 ml @ 2.5 mls/hr Q24H IV 06/17/24 17:30 06/30/24 21:48 2.5 MLS/HR Albuterol 2.5 mg Q6HR NEB 06/20/24 12:00 07/07/24 06:15 2.5 MG Ipratropium [place] 0.5 mg Q6HR NEB 06/20/24 12:00 07/07/24 06:15 0.5 MG Ceftriaxone Sodium/Dextrose 50 ml @ 50 mls/hr BID IV 06/21/24 22:00 07/06/24 21:45 50 MLS/HR Vancomycin HCl 0 ml @ 0 mls/hr UD IV 06/27/24 23:45 Cancel Acetaminophen 650 mg Q6HP PRN PO 06/28/24 17:45 07/03/24 10:27 650 MG Norepinephrine Bitartrate 250 ml @ 3.75 mls/hr Q24H IV 06/29/24 05:30 06/29/24 06:05 3.75 MLS/HR Hydralazine HCl 10 mg Q6HPRN PRN IV 07/01/24 13:15 07/06/24 14:53 10 MG Labetalol HCl 10 mg Q2HPRN PRN IV 07/03/24 14:15 07/04/24 18:50 10 MG Carvedilol 6.25 mg Q12HR PO 07/06/24 22:00 07/06/24 21:54 6.25 MG Hydralazine HCl 25 mg Q8HR GT 07/06/24 14:39 07/07/24 05:32 25 MG Laboratory Results Laboratory Tests 07/07/24 02:56 Chemistry Test 07/07/24 02:56 Calcium Level 9.9 mg/dL (8.7-10.4) Urinalysis Test 05/25/24 08:30 05/28/24 01:30 Urine Color Yellow (Yellow) Urine Clarity Clear (Clear) Urine pH 7.5 (5.0-9.0) Urine Specific [place] 1.013 (1.001-1.035) Urine Protein 2+ (Negative) H Urine Ketones Negative (Negative) Urine Blood Negative /uL (Negative) Urine Nitrite Negative (Negative) Urine Bilirubin Negative (Negative) Urine Urobilinogen 8 mg/dL (Negative) H Urine Leukocyte Esterase Negative /uL (Negative) Urine RBC 5 /hpf (0 - 4) Urine WBC 1 /hpf (0 - 5) Urine Squamous Epithelial Cells Few /hpf (<5) Urine Bacteria None seen /hpf (None Seen) Urine Glucose Normal mg/dL (Normal) Urine Creatinine 248.25 mg/dL (30.0-125.0) H Urine Sodium 27 mmol/L (40-220) L Urine Total Protein 293.2 mg/dL (1-14) H Microbiology Microbiology Date/Time Source Procedure Growth Status 06/28/24 00:38 Blood Blood Culture - Final NO GROWTH AFTER 5 DAYS OF INCUBATION. Complete 06/09/24 17:21 Urine - [place] Urine Culture - Final Complete 05/27/24 08:50 Nose MRSA Screen - Final Complete 05/25/24 06:50 Sputum Gram Stain - Final Complete 05/25/24 06:50 Respiratory Culture - Final Presumptive Tara albicans Complete Labs and/or images reviewed: Labs reviewed by me, Image(s) reviewed by me Assessment/Plan Assessment/Plan Impression: -severe sepsis with shock , Streptococcus pneumoniae -probable community-acquired pneumonia with Gram-positive cocci -sepsis with Gram-positive cocci -acute hypoxic respiratory failure with mechanical ventilation -obesity -acute kidney injury, anuric -NSTEMI, probably type 2 -hypoalbuminemia -? Angioedema on resolved -respiratory alkalosis -multifocal CVA -endocarditis Plan: Events: Repeat ABG today. Patient with accelerated hypertension overnight. Increase Coreg and hydralazine via G-tube -continue current antihypertensives -bronchodilators -antibiotic therapy per Infectious Disease -head of bed greater than 30 -nephrology consultation: HD -PUD, DVT prophylaxis Patient was awaiting LTAC placement. Critical care time spent with patient discussing and formulating plan of care: 40 minutes. This does not include time spent performing procedures. This medical document was created using an electronic medical record system with [employer] dictation system. Although this document has been carefully reviewed, there may still be some phonetic and typographical errors. These areas are purely typographical due to imperfections of the software programs, and do not reflect any compromise in the patient's medical care. Plan discussed with: Patient My Orders Orders - OMAR PARK NP Procedure Category Date Status Time Carvedilol Tablet PHA 07/06/24 In Process (Coreg Tablet) 22:00 Hydralazine Hcl PHA 07/06/24 In Process Tablet (Apresoline 14:39 Date of Service: Jul 07, 2024 Billing Provider: OMAR PARK NP Common Visit Codes: [id number] CARE 30-74 MIN OMAR PARK NP Jul 07, 2024 08:22
[2024-07-07] MEDS: SODIUM CHL 0.9% 1000 ML BAG XX ONE (13:14)
--- NOTE | 2024-07-07 18:53 | DVHPN2 ---
Progress Note Date Seen: Jul 07, 2024 Medical Necessity Reason Pt with a Central, PICC or Fol: No The following are medically ne: Central Line Subjective Patient reports: Other (Seen on dialysis today) Review of Systems: Deferred Objective vital signs Vital Sign Date Time Temp Pulse Resp B/P (MAP) Pulse Ox O2 Delivery O2 Flow Rate FiO2 07/07/24 18:45 113 22 176/100 (125) 98 07/07/24 18:00 Trach Collar 10 40 40 07/07/24 16:00 99.7 99.7 Total Intake and Output 07/06/24 07/06/24 07/07/24 15:00 23:00 07:00 Intake Total 50 ml 428 ml 598 ml Output Total 100 ml 0 ml 0 ml Balance -50 ml 428 ml 598 ml medications Current Medications Medications Dose Ordered Sig/Yousif Route Start Time Stop Time Status Last Admin Dose Admin Midazolam HCl 50 ml @ 1 mls/hr Q24H IV 05/25/24 06:30 05/29/24 09:11 5 MLS/HR Atorvastatin Calcium 40 mg HS NG 05/25/24 22:00 07/06/24 21:46 40 MG Ondansetron HCl 4 mg Q4HP PRN IV 05/25/24 10:45 Nitroglycerin 0.4 mg Q5MINP PRN SL 05/25/24 10:45 Aspirin 81 mg DAILY PO 06/10/24 10:00 07/07/24 10:08 81 MG Enteral Nutritional Formula 1,000 ml 40ML/HR GT 06/15/24 09:15 07/07/24 05:31 1,000 ML Albumin Human 100 ml @ 100 mls/hr PRN PRN IV 06/16/24 11:00 06/30/24 06:50 100 MLS/HR Sodium Chloride 10 ml QSHIFT@10,22 IV 06/17/24 22:00 07/07/24 10:08 10 ML Fentanyl Citrate 250 ml @ 2.5 mls/hr Q24H IV 06/17/24 17:30 06/30/24 21:48 2.5 MLS/HR Albuterol 2.5 mg Q6HR NEB 06/20/24 12:00 07/07/24 17:54 2.5 MG Ipratropium [place] 0.5 mg Q6HR NEB 06/20/24 12:00 07/07/24 17:54 0.5 MG Ceftriaxone Sodium/Dextrose 50 ml @ 50 mls/hr BID IV 06/21/24 22:00 07/07/24 10:07 50 MLS/HR Vancomycin HCl 0 ml @ 0 mls/hr UD IV 06/27/24 23:45 Cancel Acetaminophen 650 mg Q6HP PRN PO 06/28/24 17:45 07/07/24 13:15 650 MG Norepinephrine Bitartrate 250 ml @ 3.75 mls/hr Q24H IV 06/29/24 05:30 06/29/24 06:05 3.75 MLS/HR Hydralazine HCl 10 mg Q6HPRN PRN IV 07/01/24 13:15 07/06/24 14:53 10 MG Labetalol HCl 10 mg Q2HPRN PRN IV 07/03/24 14:15 07/04/24 18:50 10 MG Carvedilol 6.25 mg Q12HR PO 07/06/24 22:00 07/06/24 21:54 6.25 MG Hydralazine HCl 25 mg Q8HR GT 07/06/24 14:39 07/07/24 13:48 25 MG Examination: GENERAL:Abnormal, MSK:Abnormal, NEURO:Abnormal laboratory and microbiology Laboratory Tests 07/07/24 02:56 Test 07/07/24 02:56 Range/Units Serum Glucose 118 H 74-106 mg/dL Microbiology Date/Time Source Procedure Growth Status 06/28/24 00:38 Blood Blood Culture - Final NO GROWTH AFTER 5 DAYS OF INCUBATION. Complete 06/09/24 17:21 Urine - [place] Urine Culture - Final Complete 05/27/24 08:50 Nose MRSA Screen - Final Complete 05/25/24 06:50 Sputum Gram Stain - Final Complete 05/25/24 06:50 Respiratory Culture - Final Presumptive Tara albicans Complete Problem List/Assessment/Plan Problem List/Assessment/Plan Acute kidney injury ATN on acute dialysis Unknown baseline septic shock Hypertension Gram + bacteremia endocarditis septic emboli Morbid obesity Strept PNA AMS Ventilator-dependent hypoxic respiratory failure now trach recs HD 07/07 UF 3 L off Next dialysis will be Friday Plan discussed with: Other Dietary Evaluation Review Comments: 1) If GI is accessible consider Jevity 1.2 @ 70ml/hr x 24hr continuous feed goal rate as tolerated 2) If pt remains NPO >7 days consider TPN to meet at least 75% of estimated needs 3) Advance pt diet when medically feasible to a 2gm Sodium diet modified per NURSE LEADER recommendations 4) Continue current plan of care Expected Outcomes/Goals: 1) Pt to receive nutrition support within 7 days of NPO status 2) Pt diet to advance 3) F/U in 2-3 days LAN CHOWDHURY MD Jul 07, 2024 18:53
--- NOTE | 2024-07-07 21:04 | DVHPN2 ---
Consult Progress Note Date Seen: Jul 07, 2024 Subjective Patient reports: Other (tachycardic with HR is the 120s , having occasional aspirations and thin secreations ) Objective vital signs Vital Sign Date Time Temp Pulse Resp B/P (MAP) Pulse Ox O2 Delivery O2 Flow Rate FiO2 07/07/24 19:54 107 135/90 07/07/24 18:45 22 98 07/07/24 18:00 Trach Collar 10 40 40 07/07/24 16:00 99.7 99.7 Total Intake and Output 07/06/24 07/06/24 07/07/24 15:00 23:00 07:00 Intake Total 50 ml 428 ml 598 ml Output Total 100 ml 0 ml 0 ml Balance -50 ml 428 ml 598 ml medications Current Medications Medications Dose Ordered Sig/Yousif Route Start Time Stop Time Status Last Admin Dose Admin Midazolam HCl 50 ml @ 1 mls/hr Q24H IV 05/25/24 06:30 05/29/24 09:11 5 MLS/HR Atorvastatin Calcium 40 mg HS NG 05/25/24 22:00 07/06/24 21:46 40 MG Ondansetron HCl 4 mg Q4HP PRN IV 05/25/24 10:45 Nitroglycerin 0.4 mg Q5MINP PRN SL 05/25/24 10:45 Aspirin 81 mg DAILY PO 06/10/24 10:00 07/07/24 10:08 81 MG Enteral Nutritional Formula 1,000 ml 40ML/HR GT 06/15/24 09:15 07/07/24 05:31 1,000 ML Sodium Chloride 10 ml QSHIFT@10,22 IV 06/17/24 22:00 07/07/24 10:08 10 ML Fentanyl Citrate 250 ml @ 2.5 mls/hr Q24H IV 06/17/24 17:30 06/30/24 21:48 2.5 MLS/HR Albuterol 2.5 mg Q6HR NEB 06/20/24 12:00 07/07/24 17:54 2.5 MG Ipratropium [place] 0.5 mg Q6HR NEB 06/20/24 12:00 07/07/24 17:54 0.5 MG Ceftriaxone Sodium/Dextrose 50 ml @ 50 mls/hr BID IV 06/21/24 22:00 07/07/24 10:07 50 MLS/HR Vancomycin HCl 0 ml @ 0 mls/hr UD IV 06/27/24 23:45 Cancel Acetaminophen 650 mg Q6HP PRN PO 06/28/24 17:45 07/07/24 13:15 650 MG Norepinephrine Bitartrate 250 ml @ 3.75 mls/hr Q24H IV 06/29/24 05:30 06/29/24 06:05 3.75 MLS/HR Hydralazine HCl 10 mg Q6HPRN PRN IV 07/01/24 13:15 07/06/24 14:53 10 MG Labetalol HCl 10 mg Q2HPRN PRN IV 07/03/24 14:15 07/07/24 18:54 10 MG Carvedilol 6.25 mg Q12HR PO 07/06/24 22:00 07/06/24 21:54 6.25 MG Hydralazine HCl 25 mg Q8HR GT 07/06/24 14:39 07/07/24 13:48 25 MG General Appearance: Cooperative. Well developed. Well nourished. NAD. intubated and sedated . morbidly obease Head Exam: Normal inspection Neck Exam: Normal inspection. Non-tender. Normal alignment Pulmonary/Respiratory: Chest non-tender. Clear bilateral breath sounds. minimal vent with traces of pressures and unable to ween off vent due to mentating well of sedation but continues to have signs of agitation Cardiovascular/Chest: No murmurs. No JVD. Abdominal Exam: Normal bowel sounds. Soft. Nontender. No hepatosplenomegaly. 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 concern for septic picture , patient was needing ventilatory support , vasopressures , steroids . no known history of drungs or smoking . no recent medications. orginally treated with cefapine and doxycycline but eventually put on dialysis and found strep pneumonia in blood , likely lung origin . found to have vegitation in the antrium and anterior mitral leflet which was confirmed on SAMIR as well as mitral regurgitation . MRI of brain concerning for possible small focus of subacute ischemia and the right periventricular region likely consistent with septic embolie . SAMIR showed 3 mm vegitation on the intermitral leftlet . currently on ceftriaxone therapy for endocarditis. negative for any type of hepatitis , urine drig screen was negative . no signs of septic embolism problem list - strep pneumonia , bacteremia , endocarditis , septic shock , septic emboli to brain , pneumonia, mitral valve regurgitation , CHF , acute renal failure on dialysis 2/: Difficult to ween off vent and has been having improved airspace opacities on chest xray and since has been started on Ceftriaxone 2 grams Q12 , chest Ct was done and there was no finding to suggest septic emboli or persistent plural effusions that could be keeping patients from being off the ventilator . Continue Ceftriaxone 2 grams every 12 hours for 6 weeks via piccline . prognosis overall is poor , may proceed with tracheostomy . no contraindications from infectious disease of additional infectious work up needed 2: underwent dialysis and tolerated procedure without any issues . Patient has a clean tracheostomy placed today without any complications and site appears clean. Patient is currently on FIO2 50% on trach . Continue ceftriaxone 2 grams every 12 hours for 6 weeks . If patients clinical status allows would recommend patient follow up with infectious disease in 6 weeks to repeat echocardiogram as well as determine if additional therapy is needed for endocarditis. 2/: S/P tracheostomy with no signs of intolerance and still vent dependant . plan will be to continue antibiotics for 6 weeks of ceftriaxone for endocarditis and to follow up with infectious disease clinic in 6 weeks 2: remains vent dependant and on 6 of levofed . FIO2 50% and pressure dependant . tolerating tracheostomy and tube feeds via NG tube and underwent dialysis yesterday without any issues . continue antibiotic plan 06/26: chest xray shows mild vascular congestion 06/27: patient is levofed dependant and unclear what is contributing to overall hypotension. spoke with nursing staff to pursue aggressive sedation to see if patient will wake up and if patient is awake would consider cardiology reevaluation for potential cardiothoracic surgery 06/28: elevated temps as high as 100.2 , possibly related to agitation during CPAP 06/29: Patient has been switched off sedation to see if she can tolerate CPAP and potentially be weaned off the vent 06/30: MRI was done of the brain and shows asymmetrically decreased flow signal in the right M3 and M4 arterial branches compared to the left distal MCA arterial stenosis / occlusion is not excluded . CT chest was done and shows a bilateral lower lobe infiltrates slightly worse than previous , now a small left plural effusion 07/01: patients blood pressures have significantly improved and if off pressure support , holding good maps . new blood cultures are no growth to date 07/02: patient is off pressures and responding to antibiotics however is not able to wake up and not able to be weaned from the vent 2: patient is awake and alert on pressure support 07/05: tolerating antibiotics and stable 07/06: chest x ray shows no significant changes 07/07: Patient was given tylenol for elevated temp of 99.7 , oral findings are consistent with micro aspiration and tachycardia Plan: - consider adjustment of dialysis regimen due to tachycardia and defer to cardiology for management , low suspicion tachycardia is related to infectious process - repeat blood cultures in light of elevated temps - suspect patients tachycardia is related to microaspiration , recommend exercising good aspiration precautions and keeping bad raised 30 degrees - due to patient undergone sub therapeutic dose of ceftriaxone for 1 week would extend patients 6 week course to 7 weeks , end of therapy will be 07/14/2024 - in light of worsening chest ct recommend getting a sputum culture - Continue ceftriaxone 2 grams every 12 hours for 6 weeks . If patients clinical status allows would recommend patient follow up with infectious disease in 6 weeks to repeat echocardiogram as well as determine if additional therapy is needed for endocarditis. -continue ceftriaxone 2 g twice daily, recommend for total six weeks for endocarditis. -on hemodialysis -rest of the medical management as per primary care team and pulmonology nephrology. - prognosis is poor Plan discussed with: Other Dietary Evaluation Review Comments: 1) If GI is accessible consider Jevity 1.2 @ 70ml/hr x 24hr continuous feed goal rate as tolerated 2) If pt remains NPO >7 days consider TPN to meet at least 75% of estimated needs 3) Advance pt diet when medically feasible to a 2gm Sodium diet modified per [employer] recommendations 4) Continue current plan of care Expected Outcomes/Goals: 1) Pt to receive nutrition support within 7 days of NPO status 2) Pt diet to advance 3) F/U in 2-3 days JOSH VERNON MD Jul 07, 2024 21:04
--- NOTE | 2024-07-07 21:04 | DVHPN2 ---
Consult Progress Note Date Seen: Jul 06, 2024 Subjective Patient reports: Other (FIO2 30% , increasing getting tachycardic with HR in 110s and remaind hypertesnive and occasionally aspirating ) Objective vital signs Vital Sign Date Time Temp Pulse Resp B/P (MAP) Pulse Ox O2 Delivery O2 Flow Rate FiO2 07/07/24 19:54 107 135/90 07/07/24 18:45 22 98 07/07/24 18:00 Trach Collar 10 40 40 07/07/24 16:00 99.7 99.7 Total Intake and Output 07/06/24 07/06/24 07/07/24 15:00 23:00 07:00 Intake Total 50 ml 428 ml 598 ml Output Total 100 ml 0 ml 0 ml Balance -50 ml 428 ml 598 ml medications Current Medications Medications Dose Ordered Sig/Yousif Route Start Time Stop Time Status Last Admin Dose Admin Midazolam HCl 50 ml @ 1 mls/hr Q24H IV 05/25/24 06:30 05/29/24 09:11 5 MLS/HR Atorvastatin Calcium 40 mg HS NG 05/25/24 22:00 07/06/24 21:46 40 MG Ondansetron HCl 4 mg Q4HP PRN IV 05/25/24 10:45 Nitroglycerin 0.4 mg Q5MINP PRN SL 05/25/24 10:45 Aspirin 81 mg DAILY PO 06/10/24 10:00 07/07/24 10:08 81 MG Enteral Nutritional Formula 1,000 ml 40ML/HR GT 06/15/24 09:15 07/07/24 05:31 1,000 ML Sodium Chloride 10 ml QSHIFT@10,22 IV 06/17/24 22:00 07/07/24 10:08 10 ML Fentanyl Citrate 250 ml @ 2.5 mls/hr Q24H IV 06/17/24 17:30 06/30/24 21:48 2.5 MLS/HR Albuterol 2.5 mg Q6HR NEB 06/20/24 12:00 07/07/24 17:54 2.5 MG Ipratropium [place] 0.5 mg Q6HR NEB 06/20/24 12:00 07/07/24 17:54 0.5 MG Ceftriaxone Sodium/Dextrose 50 ml @ 50 mls/hr BID IV 06/21/24 22:00 07/07/24 10:07 50 MLS/HR Vancomycin HCl 0 ml @ 0 mls/hr UD IV 06/27/24 23:45 Cancel Acetaminophen 650 mg Q6HP PRN PO 06/28/24 17:45 07/07/24 13:15 650 MG Norepinephrine Bitartrate 250 ml @ 3.75 mls/hr Q24H IV 06/29/24 05:30 06/29/24 06:05 3.75 MLS/HR Hydralazine HCl 10 mg Q6HPRN PRN IV 07/01/24 13:15 07/06/24 14:53 10 MG Labetalol HCl 10 mg Q2HPRN PRN IV 07/03/24 14:15 07/07/24 18:54 10 MG Carvedilol 6.25 mg Q12HR PO 07/06/24 22:00 07/06/24 21:54 6.25 MG Hydralazine HCl 25 mg Q8HR GT 07/06/24 14:39 07/07/24 13:48 25 MG General Appearance: Cooperative. Well developed. Well nourished. NAD. intubated and sedated . morbidly obease Head Exam: Normal inspection Neck Exam: Normal inspection. Non-tender. Normal alignment Pulmonary/Respiratory: Chest non-tender. Clear bilateral breath sounds. minimal vent with traces of pressures and unable to ween off vent due to mentating well of sedation but continues to have signs of agitation Cardiovascular/Chest: No murmurs. No JVD. Abdominal Exam: Normal bowel sounds. Soft. Nontender. No hepatosplenomegaly. 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 concern for septic picture , patient was needing ventilatory support , vasopressures , steroids . no known history of drungs or smoking . no recent medications. orginally treated with cefapine and doxycycline but eventually put on dialysis and found strep pneumonia in blood , likely lung origin . found to have vegitation in the antrium and anterior mitral leflet which was confirmed on SAMIR as well as mitral regurgitation . MRI of brain concerning for possible small focus of subacute ischemia and the right periventricular region likely consistent with septic embolie . SAMIR showed 3 mm vegitation on the intermitral leftlet . currently on ceftriaxone therapy for endocarditis. negative for any type of hepatitis , urine drig screen was negative . no signs of septic embolism problem list - strep pneumonia , bacteremia , endocarditis , septic shock , septic emboli to brain , pneumonia, mitral valve regurgitation , CHF , acute renal failure on dialysis 2/: Difficult to ween off vent and has been having improved airspace opacities on chest xray and since has been started on Ceftriaxone 2 grams Q12 , chest Ct was done and there was no finding to suggest septic emboli or persistent plural effusions that could be keeping patients from being off the ventilator . Continue Ceftriaxone 2 grams every 12 hours for 6 weeks via piccline . prognosis overall is poor , may proceed with tracheostomy . no contraindications from infectious disease of additional infectious work up needed 2: underwent dialysis and tolerated procedure without any issues . Patient has a clean tracheostomy placed today without any complications and site appears clean. Patient is currently on FIO2 50% on trach . Continue ceftriaxone 2 grams every 12 hours for 6 weeks . If patients clinical status allows would recommend patient follow up with infectious disease in 6 weeks to repeat echocardiogram as well as determine if additional therapy is needed for endocarditis. 2: S/P tracheostomy with no signs of intolerance and still vent dependant . plan will be to continue antibiotics for 6 weeks of ceftriaxone for endocarditis and to follow up with infectious disease clinic in 6 weeks 2: remains vent dependant and on 6 of levofed . FIO2 50% and pressure dependant . tolerating tracheostomy and tube feeds via NG tube and underwent dialysis yesterday without any issues . continue antibiotic plan 06/26: chest xray shows mild vascular congestion 06/27: patient is levofed dependant and unclear what is contributing to overall hypotension. spoke with nursing staff to pursue aggressive sedation to see if patient will wake up and if patient is awake would consider cardiology reevaluation for potential cardiothoracic surgery 06/28: elevated temps as high as 100.2 , possibly related to agitation during CPAP 06/29: Patient has been switched off sedation to see if she can tolerate CPAP and potentially be weaned off the vent 06/30: MRI was done of the brain and shows asymmetrically decreased flow signal in the right M3 and M4 arterial branches compared to the left distal MCA arterial stenosis / occlusion is not excluded . CT chest was done and shows a bilateral lower lobe infiltrates slightly worse than previous , now a small left plural effusion 07/01: patients blood pressures have significantly improved and if off pressure support , holding good maps . new blood cultures are no growth to date 07/02: patient is off pressures and responding to antibiotics however is not able to wake up and not able to be weaned from the vent 07/04: patient is awake and alert on pressure support 07/05: tolerating antibiotics and stable 07/06: chest x ray shows no significant changes Plan: - suspect patients tachycardia is related to microaspiration , recommend exercising good aspiration precautions and keeping bad raised 30 degrees - due to patient undergone sub therapeutic dose of ceftriaxone for 1 week would extend patients 6 week course to 7 weeks , end of therapy will be 07/14/2024 - in light of worsening chest ct recommend getting a sputum culture - Continue ceftriaxone 2 grams every 12 hours for 6 weeks . If patients clinical status allows would recommend patient follow up with infectious disease in 6 weeks to repeat echocardiogram as well as determine if additional therapy is needed for endocarditis. -continue ceftriaxone 2 g twice daily, recommend for total six weeks for endocarditis. -on hemodialysis -rest of the medical management as per primary care team and pulmonology nephrology. - prognosis is poor Plan discussed with: Other Dietary Evaluation Review Comments: 1) If GI is accessible consider Jevity 1.2 @ 70ml/hr x 24hr continuous feed goal rate as tolerated 2) If pt remains NPO >7 days consider TPN to meet at least 75% of estimated needs 3) Advance pt diet when medically feasible to a 2gm Sodium diet modified per [employer] recommendations 4) Continue current plan of care Expected Outcomes/Goals: 1) Pt to receive nutrition support within 7 days of NPO status 2) Pt diet to advance 3) F/U in 2-3 days JOSH VERNON MD Jul 07, 2024 21:04
--- NOTE | 2024-07-07 21:58 | DVHPN2 ---
Progress Note - Dictate Date Seen: Jul 07, 2024 Medical Necessity Reason Pt with a Central, PICC or Fol: No The following are medically ne: Central Line Subjective Ms. Pandya is a 53 years old right-handed female with a history of morbid obesity, hypertension, [place] [facility] [place] with a chief company of altered mental status, respiratory distress. I have seen and examined the patient, I have talked to her nurse. She was awake, he responsive to me with social smile, she follows verbal commands but the extremities are very weak and she can hardly move Urine culture, 05/25/2024: Negative Blood culture, 05/25/2024: Streptococcus pneumoniae UDS, 05/25/2024: Negative Urinalysis, 05/25/2024: WBC: 1, urine leukocyte esterase: Negative ABG, 05/25/2024: Metabolic acidosis, hypoxia, 05/26/2024: Metabolic acidosis, hypoxia, 05/27/24: Metabolic acidosis, hypoxia WBC/HB/PLT/MCV, 06/02/2024: 22.4/9/342/89.4 06/09/2024: 19.6/9.4/235/91.6, 06/12/2024: 8.2/9.2/205/90.6 BUN/CR, 05/26/2024: 62/7.01 06/02/2024: 123/6.59, 06/09/2024: 137/6.32, 06/12/2024: 71/4.33 HGB A1c, 05/25/2024: 5.6 Lactic acid, 05/25/2024: 3.6, 4.6, 4.2, 05/26/2024: 3.6 Troponin one high sensitivity, 05/25/2024: 1060, 1354, 1262 TBI/AST/ALT/AP, 05/26/2024: 2/246/167/98, 06/07/2024: 0.9/139/464/93 TG/HDL/LDL/HDL, 05/25/2024: 192/98/40/8 Vitamin B12, 06/02/2024: 836 TSH, 05/25/2024: 0.57 SAMIR, 06/15/2024: Vegetation anterior mitral leaflet Carotid Doppler, 06/15/2024: 1. There is no hemodynamically significant stenosis in the right common carotid and internal carotid arteries. There is elevated peak systolic velocity in the right external carotid artery. 2. Nonvisualization of the left carotid and vertebral arteries secondary to overlying bandage. Consider further evaluation with CTA neck Chest x-ray, 05/25/2024: 1. Distal tip of the endotracheal tube is approximately 5.5 cm above the level of the nik. 2. Poorly visualized enteric tube at its distal aspect. Appears to reach the gastroesophageal junction, although not visualized distal to this point. Correlate with clinical findings. 3. Bilateral airspace opacities and interstitial opacities, may be due to multifocal pneumonia or pulmonary edema in the appropriate clinical setting CT head, 05/25/2024: No gross acute intracranial process CT head, 06/02/24: 1. Interval development of 2 foci of subcortical parenchymal hemorrhage in the left frontal lobe. No mass effect or midline shift. 2. Moderate amount of fluid in the posterior nasopharynx likely related to intubation. Recommend suctioning to prevent aspiration. 3. Small bilateral mastoid effusions. We are in the process of reaching out to the nurse or physician in charge of the patient to convey the findings. CT head, 06/04/2024: Redemonstrated are 2 hyperdense foci in the subcortical left frontal lobe which may represent small foci of parenchymal hemorrhage. There is no significant surrounding edema or associated mass effect CT head, 06/06/2024: The 2 foci of left frontal subcortical hemorrhage are less conspicuous in the current exam partially resolved. No new foci of hemorrhage CT chest, 06/23/2024: 1. Bilateral lower lobe consolidations which may reflect atelectasis or pneumonia. No findings to suggest septic emboli. 2. Cardiomegaly. Chest, 06/28/2024: Bilateral lower lobe infiltrates slightly worse than on previous study. There is now a small left pleural effusion MRI head, 06/15/2024: Extensive periventricular and deep white matter signal abnormality most of which is likely chronic. Possible small focus of subacute ischemia in the right periventricular region. No definite acute intracranial hemorrhage on MRI. Clinical correlation and continued follow-up is recommended MRA head, 06/28/2024: Asymmetrically decreased flow signal in the right M3 and M4 arterial branches in comparison to the left. Distal MCA arterial stenosis/ occlusion is not excluded. Further evaluation with CT angiography is recommended if not already performed vital signs Vital Sign Date Time Temp Pulse Resp B/P (MAP) Pulse Ox O2 Delivery O2 Flow Rate FiO2 07/07/24 20:00 99 07/07/24 20:00 15 97 Trach Collar 10 40 40 07/07/24 19:54 135/90 07/07/24 16:00 99.7 99.7 Total Intake and Output 07/06/24 07/06/24 07/07/24 15:00 23:00 07:00 Intake Total 50 ml 428 ml 598 ml Output Total 100 ml 0 ml 0 ml Balance -50 ml 428 ml 598 ml medications Current Medications Medications Dose Ordered Sig/Yousif Route Start Time Stop Time Status Last Admin Dose Admin Midazolam HCl 50 ml @ 1 mls/hr Q24H IV 05/25/24 06:30 05/29/24 09:11 5 MLS/HR Atorvastatin Calcium 40 mg HS NG 05/25/24 22:00 07/06/24 21:46 40 MG Ondansetron HCl 4 mg Q4HP PRN IV 05/25/24 10:45 Nitroglycerin 0.4 mg Q5MINP PRN SL 05/25/24 10:45 Aspirin 81 mg DAILY PO 06/10/24 10:00 07/07/24 10:08 81 MG Enteral Nutritional Formula 1,000 ml 40ML/HR GT 06/15/24 09:15 07/07/24 05:31 1,000 ML Sodium Chloride 10 ml QSHIFT@10,22 IV 06/17/24 22:00 07/07/24 10:08 10 ML Fentanyl Citrate 250 ml @ 2.5 mls/hr Q24H IV 06/17/24 17:30 06/30/24 21:48 2.5 MLS/HR Albuterol 2.5 mg Q6HR NEB 06/20/24 12:00 07/07/24 17:54 2.5 MG Ipratropium [place] 0.5 mg Q6HR NEB 06/20/24 12:00 07/07/24 17:54 0.5 MG Ceftriaxone Sodium/Dextrose 50 ml @ 50 mls/hr BID IV 06/21/24 22:00 07/07/24 10:07 50 MLS/HR Vancomycin HCl 0 ml @ 0 mls/hr UD IV 06/27/24 23:45 Cancel Acetaminophen 650 mg Q6HP PRN PO 06/28/24 17:45 07/07/24 13:15 650 MG Norepinephrine Bitartrate 250 ml @ 3.75 mls/hr Q24H IV 06/29/24 05:30 06/29/24 06:05 3.75 MLS/HR Hydralazine HCl 10 mg Q6HPRN PRN IV 07/01/24 13:15 07/06/24 14:53 10 MG Labetalol HCl 10 mg Q2HPRN PRN IV 07/03/24 14:15 07/07/24 18:54 10 MG Carvedilol 6.25 mg Q12HR PO 07/06/24 22:00 07/06/24 21:54 6.25 MG Hydralazine HCl 25 mg Q8HR GT 07/06/24 14:39 07/07/24 13:48 25 MG objective The patient is well-nourished and well-developed with no distress. Status post tracheostomy Status post PEG feeding tube insertion MENTAL STATUS: Subjective CRANIAL NERVES: Pupils are round and reactive. There is conjugated eye movement. No signs of facial weakness. There are gagging or coughing reflexes during oral/trach care. SENSATION: Okay to light touch MOTOR: Normal tone in the upper and lower extremity. Normal muscle bulk. No fasciculations. She can move the fingers and toes a little bit on verbal commands REFLEXES: Deep tendon reflexes are symmetrical. No pathological reflexes. CEREBELLAR/COORDINATION: Deferred GAIT/STATION: deferred. laboratory and microbiology Laboratory Tests 07/07/24 02:56 Test 07/07/24 02:56 Range/Units Serum Glucose 118 H 74-106 mg/dL Problem List Altered mental status/Coma Hypoxic encephalopathy secondary to respiratory failure Metabolic encephalopathy secondary to acidosis, sepsis, septic shock, kidney failure Multiple acute/subacute strokes Heart attack Pneumonia Sepsis, septic shock Endocarditis Acute on chronic kidney failure ICU myopathy Acute petechial hemorrhage in the left frontal lobe, improving on follow-up CT Intermittent anisocoria, uncertain clinical significance Assessment/Plan Monitoring Supportive treatment ICU care Stabilize vitals Respiratory support IV antibiotics GI prophylaxis/Protonix DVT prophylaxis/heparin Nephrology on case Pulmonology on case Infectious diseases on case She is s/p PEG feeding tube insertion and tracheostomy More recommendation per clinical course This medical document was created using an electronic medical record system with [employer] dictation system. Although this document has been carefully reviewed, there may still be some phonetic and typographical errors. These areas are purely typographical due to imperfections of the software programs, and do not reflect any compromise in the patient's medical care Prognosis poor Dietary Evaluation Review Comments: 1) If GI is accessible consider Jevity 1.2 @ 70ml/hr x 24hr continuous feed goal rate as tolerated 2) If pt remains NPO >7 days consider TPN to meet at least 75% of estimated needs 3) Advance pt diet when medically feasible to a 2gm Sodium diet modified per DOSIMETRIST recommendations 4) Continue current plan of care Expected Outcomes/Goals: 1) Pt to receive nutrition support within 7 days of NPO status 2) Pt diet to advance 3) F/U in 2-3 days Plan discussed with: Other PILAR HOOD MD Jul 07, 2024 21:58
--- NOTE | 2024-07-07 23:38 | DVHPN2 ---
Progress Note - Dictate Date Seen: Jul 07, 2024 Medical Necessity Reason Pt with a Central, PICC or Fol: No The following are medically ne: Central Line Subjective Patient seen and examined at bedside. S/p trach, on humidified O2 Overnight events reviewed. vital signs Vital Sign Date Time Temp Pulse Resp B/P (MAP) Pulse Ox O2 Delivery O2 Flow Rate FiO2 07/07/24 23:16 93 115/68 07/07/24 23:00 25 96 07/07/24 22:00 Trach Collar 10 40 40 07/07/24 20:00 99.4 99.4 Total Intake and Output 07/06/24 07/06/24 07/07/24 15:00 23:00 07:00 Intake Total 50 ml 428 ml 598 ml Output Total 100 ml 0 ml 0 ml Balance -50 ml 428 ml 598 ml medications Current Medications Medications Dose Ordered Sig/Yousif Route Start Time Stop Time Status Last Admin Dose Admin Midazolam HCl 50 ml @ 1 mls/hr Q24H IV 05/25/24 06:30 05/29/24 09:11 5 MLS/HR Atorvastatin Calcium 40 mg HS NG 05/25/24 22:00 07/07/24 22:16 40 MG Ondansetron HCl 4 mg Q4HP PRN IV 05/25/24 10:45 Nitroglycerin 0.4 mg Q5MINP PRN SL 05/25/24 10:45 Aspirin 81 mg DAILY PO 06/10/24 10:00 07/07/24 10:08 81 MG Enteral Nutritional Formula 1,000 ml 40ML/HR GT 06/15/24 09:15 07/07/24 05:31 1,000 ML Sodium Chloride 10 ml QSHIFT@10,22 IV 06/17/24 22:00 07/07/24 22:17 10 ML Fentanyl Citrate 250 ml @ 2.5 mls/hr Q24H IV 06/17/24 17:30 06/30/24 21:48 2.5 MLS/HR Albuterol 2.5 mg Q6HR NEB 06/20/24 12:00 07/07/24 17:54 2.5 MG Ipratropium [place] 0.5 mg Q6HR NEB 06/20/24 12:00 07/07/24 17:54 0.5 MG Ceftriaxone Sodium/Dextrose 50 ml @ 50 mls/hr BID IV 06/21/24 22:00 07/07/24 22:15 50 MLS/HR Vancomycin HCl 0 ml @ 0 mls/hr UD IV 06/27/24 23:45 Cancel Acetaminophen 650 mg Q6HP PRN PO 06/28/24 17:45 07/07/24 13:15 650 MG Norepinephrine Bitartrate 250 ml @ 3.75 mls/hr Q24H IV 06/29/24 05:30 06/29/24 06:05 3.75 MLS/HR Hydralazine HCl 10 mg Q6HPRN PRN IV 07/01/24 13:15 07/06/24 14:53 10 MG Labetalol HCl 10 mg Q2HPRN PRN IV 07/03/24 14:15 07/07/24 18:54 10 MG Carvedilol 6.25 mg Q12HR PO 07/06/24 22:00 07/07/24 22:16 6.25 MG Hydralazine HCl 25 mg Q8HR GT 07/06/24 14:39 07/07/24 22:16 25 MG objective Gen.: Patient lying in bed in no apparent distress. S/p trach, on humidified O2 Head: Normocephalic, atraumatic. Eyes: EOMI/PERRLA. Ears: Normal hearing. Normal anatomy. Neck: Trach in place Nose: Normal external anatomy. Mouth: Moist mucous membranes. Chest: Decreased air entry bilaterally. No wheezing or rhonchi. Cardiovascular: Positive S1, positive S2. Regular rate and rhythm. Abdomen: Positive bowel sounds in all 4 quadrants. Soft, non-tender, non- distended. : Deferred. Rectal: Deferred. Skin: Warm, dry. Intact. Extremities: 2+ radial pulses bilaterally. No lower extremity edema. Neuro: Awake, follows commands. No gross motor or sensory deficits. Cranial nerves II through XII intact. Gait not assessed. laboratory and microbiology Laboratory Tests 07/07/24 02:56 Test 07/07/24 02:56 Range/Units Serum Glucose 118 H 74-106 mg/dL Assessment/Plan Impression: Acute hypoxic respiratory failure S/p tracheostomy Septic shock Elevated troponin Acute kidney injury Lactic acidosis Metabolic acidosis Multifocal pneumonia, likely gram negative Pulmonary edema AE COPD Events: S/p trach, on trach collar w/ humidified O2. Patient tolerating trach collar, remains on 10 LPM via trach collar. Patient awake and following commands. No acute issues Trach care Pulmonary toileting PEG tube in place S/p hemodialysis yesterday, removed 3 liters. Off sedation Off pressors, hemodynamically stable. Continue bronchodilators Continue antibiotics Blood cultures show no growth after 5 days Tube feeds for nutritional support Wound care Monitor hemoglobin Blood pressure control Monitor renal function Monitor electrolytes, supplement as necessary CHANG - Hemodialysis per Nephrology Nephrology recs appreciated. Echo showed EF of 40%. SBT/KAREN Continue daily CPAP. Awaiting LTAC placement Poor prognosis, poor chance of meaningful recovery CT head revealed e/o multiple strokes. Neurology recommendations appreciated Labs and imaging reviewed. Rest of plan as noted below. Plan: s/p trach, on trach collar. PS/trach collar trials through the day AC vent support PRN only Currently on 10 LPM via trach collar. Titrate to keep O2 saturation above 90%. VAP bundle. Daily ABG and CXR while intubated Off sedation Continue bronchodilators. Continue antibiotics. F/u cultures. Pressors if necessary for hemodynamic support Titrate to keep mean arterial pressure greater than 65 mmHg. Cardiology recs appreciated. Monitor renal function Monitor electrolytes. Supplement as necessary. Monitor ins and outs. Nephrology recs appreciated. IV fluid hydration GI prophylaxis. DVT prophylaxis. Prognosis: Poor given patient's multiple co-morbidities. Rest of plan per hospitalist and other consultants. Thank you, MIRNA Stratton, for allowing me to participate in this patient's care. Further recommendations will depend on the patient's clinical course. Please do not hesitate to contact me if you have any questions or concerns. This medical document was created using an electronic medical record system with [employer] dictation system. Although these documentations are being carefully reviewed, there may still be some phonetic and typographical changes. The errors are purely typographical, due to imperfection on the software program, and do not reflect any compromise in the patient's medical care. Dietary Evaluation Review Comments: 1) If GI is accessible consider Jevity 1.2 @ 70ml/hr x 24hr continuous feed goal rate as tolerated 2) If pt remains NPO >7 days consider TPN to meet at least 75% of estimated needs 3) Advance pt diet when medically feasible to a 2gm Sodium diet modified per [employer] recommendations 4) Continue current plan of care Expected Outcomes/Goals: 1) Pt to receive nutrition support within 7 days of NPO status 2) Pt diet to advance 3) F/U in 2-3 days Plan discussed with: Other (RN Lillie) MELODY ELIZABETH MD Jul 07, 2024 23:38
[2024-07-08] VITALS (43 sets, daily range): BP systolic 93–168; BP diastolic 53–115; PULSE 95–113; RESP 12–45; TEMP 97.6–100.2; O2SAT 95–100
[2024-07-08 04:00] LABS: Basophils # (auto) 0.1 10 ^3/uL (0-0.2); Basophils % (auto) 0.7 % (0.0-2.0); Eosinophils # (auto) 0.2 10 ^3/uL (0-0.8); Eosinophils % (auto) 2.3 % (0.0-7.0); Hematocrit 29.4 % (36.0-46.0); Hemoglobin 9.5 g/dL (12.2-16.2); Lymphocytes # (auto) 2.1 10 ^3/uL (0.4-5.4); Lymphocytes % (auto) 21.9 % (10.0-50.0); Mean Corpuscular Hemoglobin 29.6 pg (28.0-32.0); Mean Corpuscular Hgb Conc. 32.1 g/dL (32.0-36.0); Mean Corpuscular Volume 92.1 fL (80.0-100.0); Monocytes # (auto) 1.2 10 ^3/uL (0-1.3); Monocytes % (auto) 12.5 % (0.0-12.0); Neutrophils # (auto) 6.1 10 ^3/uL (1.6-8.6); Neutrophils % (auto) 62.6 % (37.0-80.0); Nucleated Red Blood Cells % 0.2 %; Platelet Count (auto) 260 10^3/uL (140-450); Red Cell Distribution Width 16.8 % (11.8-14.3); White Blood Cell 9.7 10^3/uL (4.4-10.8)
[2024-07-08 04:08] LABS: Anion Gap 13 (5-15); Carbon Dioxide 27 mmol/L (20-31); Potassium 3.7 mmol/L (3.5-5.1); Sodium 137 mmol/L (136-145)
[2024-07-08 04:09] LABS: Calcium 10.1 mg/dL (8.7-10.4)
[2024-07-08 04:12] LABS: Chloride 97 mmol/L (98-107)
[2024-07-08 04:14] LABS: BUN/Creatinine Ratio 7.4 (10.0-20.0); Glucose 102 mg/dL (74-106)
[2024-07-08 04:16] LABS: Blood Urea Nitrogen 38 mg/dL (9-23)
--- NOTE | 2024-07-08 08:58 | DVHPN2 ---
Subjective Patient with neurological deficits. Now tracking to voice. Reviewed: Care Plan, H&P, Labs, Medications, Previous Orders, Radiology, Other (Consultations) Changes from previous H/P or p: No Changes General: Per HPI Objective Vitals Vital Signs Date Time Temp Pulse Resp B/P (MAP) Pulse Ox O2 Delivery O2 Flow Rate FiO2 07/08/24 08:00 97.6 100 22 93/54 (67) 98 97.6 07/08/24 08:00 Trach Collar 10 40 40 Intake/Output Intake and Output 07/08/24 07:00 Intake Total 888 ml Output Total 0 ml Balance 888 ml Intake Oral 350 ml IV Total 100 ml Tube Feeding 438 ml Output Urine Total 0 ml # Bowel Movements 2 General Appearance: Alert, mild distress HEENT: Atraumatic, Other (Tracheostomy) Neck: Other (Tracheostomy) Lungs: Other (MV sounds) Chest/Breasts: Other (HD catheter ) Cardiovascular: Regular rate, Normal S1, Normal S2 Abdomen: Other (Decreased bowel sounds; G-tube in place) Genitourinary: Other ([place]) Neuro: Other (Patient was open eyes and moves head to verbal and tactile stimuli.) Skin: Dry, Intact Psych/Mental Status: Other (Sedated) Medications Current Medications Medications Dose Ordered Sig/Yousif Route Start Time Stop Time Status Last Admin Dose Admin Midazolam HCl 50 ml @ 1 mls/hr Q24H IV 05/25/24 06:30 05/29/24 09:11 5 MLS/HR Atorvastatin Calcium 40 mg HS NG 05/25/24 22:00 07/07/24 22:16 40 MG Ondansetron HCl 4 mg Q4HP PRN IV 05/25/24 10:45 Nitroglycerin 0.4 mg Q5MINP PRN SL 05/25/24 10:45 Aspirin 81 mg DAILY PO 06/10/24 10:00 07/07/24 10:08 81 MG Enteral Nutritional Formula 1,000 ml 40ML/HR GT 06/15/24 09:15 07/07/24 05:31 1,000 ML Sodium Chloride 10 ml QSHIFT@10,22 IV 06/17/24 22:00 07/07/24 22:17 10 ML Fentanyl Citrate 250 ml @ 2.5 mls/hr Q24H IV 06/17/24 17:30 06/30/24 21:48 2.5 MLS/HR Albuterol 2.5 mg Q6HR NEB 06/20/24 12:00 07/08/24 06:13 2.5 MG Ipratropium [place] 0.5 mg Q6HR NEB 06/20/24 12:00 07/08/24 06:13 0.5 MG Ceftriaxone Sodium/Dextrose 50 ml @ 50 mls/hr BID IV 06/21/24 22:00 07/07/24 22:15 50 MLS/HR Vancomycin HCl 0 ml @ 0 mls/hr UD IV 06/27/24 23:45 Cancel Acetaminophen 650 mg Q6HP PRN PO 06/28/24 17:45 07/07/24 13:15 650 MG Norepinephrine Bitartrate 250 ml @ 3.75 mls/hr Q24H IV 06/29/24 05:30 06/29/24 06:05 3.75 MLS/HR Hydralazine HCl 10 mg Q6HPRN PRN IV 07/01/24 13:15 07/06/24 14:53 10 MG Labetalol HCl 10 mg Q2HPRN PRN IV 07/03/24 14:15 07/07/24 18:54 10 MG Carvedilol 6.25 mg Q12HR PO 07/06/24 22:00 07/07/24 22:16 6.25 MG Hydralazine HCl 25 mg Q8HR GT 07/06/24 14:39 07/08/24 06:05 25 MG Laboratory Results Laboratory Tests 07/08/24 03:20 Chemistry Test 07/08/24 03:20 Calcium Level 10.1 mg/dL (8.7-10.4) Urinalysis Test 05/25/24 08:30 05/28/24 01:30 Urine Color Yellow (Yellow) Urine Clarity Clear (Clear) Urine pH 7.5 (5.0-9.0) Urine Specific [place] 1.013 (1.001-1.035) Urine Protein 2+ (Negative) H Urine Ketones Negative (Negative) Urine Blood Negative /uL (Negative) Urine Nitrite Negative (Negative) Urine Bilirubin Negative (Negative) Urine Urobilinogen 8 mg/dL (Negative) H Urine Leukocyte Esterase Negative /uL (Negative) Urine RBC 5 /hpf (0 - 4) Urine WBC 1 /hpf (0 - 5) Urine Squamous Epithelial Cells Few /hpf (<5) Urine Bacteria None seen /hpf (None Seen) Urine Glucose Normal mg/dL (Normal) Urine Creatinine 248.25 mg/dL (30.0-125.0) H Urine Sodium 27 mmol/L (40-220) L Urine Total Protein 293.2 mg/dL (1-14) H Microbiology Microbiology Date/Time Source Procedure Growth Status 06/28/24 00:38 Blood Blood Culture - Final NO GROWTH AFTER 5 DAYS OF INCUBATION. Complete 06/09/24 17:21 Urine - [place] Urine Culture - Final Complete 05/27/24 08:50 Nose MRSA Screen - Final Complete 05/25/24 06:50 Sputum Gram Stain - Final Complete 05/25/24 06:50 Respiratory Culture - Final Presumptive Tara albicans Complete Labs and/or images reviewed: Labs reviewed by me, Image(s) reviewed by me Assessment/Plan Assessment/Plan Impression: -severe sepsis with shock , Streptococcus pneumoniae -probable community-acquired pneumonia with Gram-positive cocci -sepsis with Gram-positive cocci -acute hypoxic respiratory failure with mechanical ventilation -obesity -acute kidney injury, anuric -NSTEMI, probably type 2 -hypoalbuminemia -? Angioedema on resolved -respiratory alkalosis -multifocal CVA -endocarditis Plan: Events: Patient tracking to voice, appears to be more receptive to maritza Greene. Discussed with maritza Greene plan of care including LTAC transferred to in network facility. Jc is asking for an official letter that he can use for the social security department. Details required obtained from Jc. Will discuss official letter with appropriate department. -continue current antihypertensives -bronchodilators -antibiotic therapy per Infectious Disease -head of bed greater than 30 -nephrology consultation: HD -PUD, DVT prophylaxis Patient awaiting LTAC transfer. Critical care time spent with patient discussing and formulating plan of care: 40 minutes. This does not include time spent performing procedures. This medical document was created using an electronic medical record system with [employer] dictation system. Although this document has been carefully reviewed, there may still be some phonetic and typographical errors. These areas are purely typographical due to imperfections of the software programs, and do not reflect any compromise in the patient's medical care. Plan discussed with: Patient, Other (RN) Date of Service: Jul 08, 2024 Billing Provider: OMAR PARK NP Common Visit Codes: [id number] CARE 30-74 MIN OMAR PARK NP Jul 08, 2024 08:58
--- NOTE | 2024-07-08 11:30 | DVHPN2 ---
Progress Note - Dictate Date Seen: Jul 08, 2024 Medical Necessity Reason Pt with a Central, PICC or Fol: No The following are medically ne: Central Line Subjective Ms. Pandya is a 53 years old right-handed female with a history of morbid obesity, hypertension, the patient was was brought to the [facility] on 05/25/24 with a chief company of altered mental status, respiratory distress. I have seen and examined the patient, I have talked to her nurse, her son around. She was awake, he responsive to me with social smile, she follows verbal commands She was still very weak, Urine culture, 05/25/2024: Negative Blood culture, 05/25/2024: Streptococcus pneumoniae UDS, 05/25/2024: Negative Urinalysis, 05/25/2024: WBC: 1, urine leukocyte esterase: Negative ABG, 05/25/2024: Metabolic acidosis, hypoxia, 05/26/2024: Metabolic acidosis, hypoxia, 05/27/24: Metabolic acidosis, hypoxia WBC/HB/PLT/MCV, 06/02/2024: 22.4/9/342/89.4 06/09/2024: 19.6/9.4/235/91.6, 06/12/2024: 8.2/9.2/205/90.6 BUN/CR, 05/26/2024: 62/7.01 06/02/2024: 123/6.59, 06/09/2024: 137/6.32, 06/12/2024: 71/4.33 HGB A1c, 05/25/2024: 5.6 Lactic acid, 05/25/2024: 3.6, 4.6, 4.2, 05/26/2024: 3.6 Troponin one high sensitivity, 05/25/2024: 1060, 1354, 1262 TBI/AST/ALT/AP, 05/26/2024: 2/246/167/98, 06/07/2024: 0.9/139/464/93 TG/HDL/LDL/HDL, 05/25/2024: 192/98/40/8 Vitamin B12, 06/02/2024: 836 TSH, 05/25/2024: 0.57 SAMIR, 06/15/2024: Vegetation anterior mitral leaflet Carotid Doppler, 06/15/2024: 1. There is no hemodynamically significant stenosis in the right common carotid and internal carotid arteries. There is elevated peak systolic velocity in the right external carotid artery. 2. Nonvisualization of the left carotid and vertebral arteries secondary to overlying bandage. Consider further evaluation with CTA neck Chest x-ray, 05/25/2024: 1. Distal tip of the endotracheal tube is approximately 5.5 cm above the level of the nik. 2. Poorly visualized enteric tube at its distal aspect. Appears to reach the gastroesophageal junction, although not visualized distal to this point. Correlate with clinical findings. 3. Bilateral airspace opacities and interstitial opacities, may be due to multifocal pneumonia or pulmonary edema in the appropriate clinical setting CT head, 05/25/2024: No gross acute intracranial process CT head, 06/02/24: 1. Interval development of 2 foci of subcortical parenchymal hemorrhage in the left frontal lobe. No mass effect or midline shift. 2. Moderate amount of fluid in the posterior nasopharynx likely related to intubation. Recommend suctioning to prevent aspiration. 3. Small bilateral mastoid effusions. We are in the process of reaching out to the nurse or physician in charge of the patient to convey the findings. CT head, 06/04/2024: Redemonstrated are 2 hyperdense foci in the subcortical left frontal lobe which may represent small foci of parenchymal hemorrhage. There is no significant surrounding edema or associated mass effect CT head, 06/06/2024: The 2 foci of left frontal subcortical hemorrhage are less conspicuous in the current exam partially resolved. No new foci of hemorrhage CT chest, 06/23/2024: 1. Bilateral lower lobe consolidations which may reflect atelectasis or pneumonia. No findings to suggest septic emboli. 2. Cardiomegaly. Chest, 06/28/2024: Bilateral lower lobe infiltrates slightly worse than on previous study. There is now a small left pleural effusion MRI head, 06/15/2024: Extensive periventricular and deep white matter signal abnormality most of which is likely chronic. Possible small focus of subacute ischemia in the right periventricular region. No definite acute intracranial hemorrhage on MRI. Clinical correlation and continued follow-up is recommended MRA head, 06/28/2024: Asymmetrically decreased flow signal in the right M3 and M4 arterial branches in comparison to the left. Distal MCA arterial stenosis/ occlusion is not excluded. Further evaluation with CT angiography is recommended if not already performed vital signs Vital Sign Date Time Temp Pulse Resp B/P (MAP) Pulse Ox O2 Delivery O2 Flow Rate FiO2 07/08/24 10:21 109 129/82 07/08/24 10:00 30 98 Trach Collar 10 40 40 07/08/24 08:00 97.6 97.6 Total Intake and Output 07/07/24 07/07/24 07/08/24 15:00 23:00 07:00 Intake Total 50 ml 380 ml 458 ml Output Total 0 ml 0 ml Balance 50 ml 380 ml 458 ml medications Current Medications Medications Dose Ordered Sig/Yousif Route Start Time Stop Time Status Last Admin Dose Admin Midazolam HCl 50 ml @ 1 mls/hr Q24H IV 05/25/24 06:30 05/29/24 09:11 5 MLS/HR Atorvastatin Calcium 40 mg HS NG 05/25/24 22:00 07/07/24 22:16 40 MG Ondansetron HCl 4 mg Q4HP PRN IV 05/25/24 10:45 Nitroglycerin 0.4 mg Q5MINP PRN SL 05/25/24 10:45 Aspirin 81 mg DAILY PO 06/10/24 10:00 07/08/24 10:00 81 MG Enteral Nutritional Formula 1,000 ml 40ML/HR GT 06/15/24 09:15 07/07/24 05:31 1,000 ML Sodium Chloride 10 ml QSHIFT@10,22 IV 06/17/24 22:00 07/08/24 10:00 10 ML Fentanyl Citrate 250 ml @ 2.5 mls/hr Q24H IV 06/17/24 17:30 06/30/24 21:48 2.5 MLS/HR Albuterol 2.5 mg Q6HR NEB 06/20/24 12:00 07/08/24 06:13 2.5 MG Ipratropium [place] 0.5 mg Q6HR NEB 06/20/24 12:00 07/08/24 06:13 0.5 MG Ceftriaxone Sodium/Dextrose 50 ml @ 50 mls/hr BID IV 06/21/24 22:00 07/08/24 10:00 50 MLS/HR Vancomycin HCl 0 ml @ 0 mls/hr UD IV 06/27/24 23:45 Cancel Acetaminophen 650 mg Q6HP PRN PO 06/28/24 17:45 07/07/24 13:15 650 MG Norepinephrine Bitartrate 250 ml @ 3.75 mls/hr Q24H IV 06/29/24 05:30 06/29/24 06:05 3.75 MLS/HR Hydralazine HCl 10 mg Q6HPRN PRN IV 07/01/24 13:15 07/06/24 14:53 10 MG Labetalol HCl 10 mg Q2HPRN PRN IV 07/03/24 14:15 07/07/24 18:54 10 MG Carvedilol 6.25 mg Q12HR PO 07/06/24 22:00 07/08/24 10:21 6.25 MG Hydralazine HCl 25 mg Q8HR GT 07/06/24 14:39 07/08/24 06:05 25 MG objective The patient is well-nourished and well-developed with no distress. Status post tracheostomy Status post PEG feeding tube insertion MENTAL STATUS: Subjective CRANIAL NERVES: Pupils are round and reactive. There is conjugated eye movement. No signs of facial weakness. There are gagging or coughing reflexes during oral/trach care. SENSATION: Okay to light touch MOTOR: Normal tone in the upper and lower extremity. Normal muscle bulk. No fasciculations. She can move the fingers and toes a little bit on verbal commands REFLEXES: Deep tendon reflexes are symmetrical. No pathological reflexes. CEREBELLAR/COORDINATION: Deferred GAIT/STATION: deferred. laboratory and microbiology Laboratory Tests 07/08/24 03:20 Test 07/08/24 03:20 Range/Units Serum Glucose 102 74-106 mg/dL Problem List Altered mental status/Coma Hypoxic encephalopathy secondary to respiratory failure Metabolic encephalopathy secondary to acidosis, sepsis, septic shock, kidney failure Multiple acute/subacute strokes Heart attack Pneumonia Sepsis, septic shock Endocarditis Acute on chronic kidney failure ICU myopathy Acute petechial hemorrhage in the left frontal lobe, improving on follow-up CT Intermittent anisocoria, uncertain clinical significance Assessment/Plan Monitoring Supportive treatment ICU care Stabilize vitals Respiratory support IV antibiotics GI prophylaxis/Protonix DVT prophylaxis/heparin Nephrology on case Pulmonology on case Infectious diseases on case She is s/p PEG feeding tube insertion and tracheostomy More recommendation per clinical course This medical document was created using an electronic medical record system with Dragon computerized dictation system. Although this document has been carefully reviewed, there may still be some phonetic and typographical errors. These areas are purely typographical due to imperfections of the software programs, and do not reflect any compromise in the patient's medical care Prognosis poor Dietary Evaluation Review Comments: 1) If GI is accessible consider Jevity 1.2 @ 70ml/hr x 24hr continuous feed goal rate as tolerated 2) If pt remains NPO >7 days consider TPN to meet at least 75% of estimated needs 3) Advance pt diet when medically feasible to a 2gm Sodium diet modified per [employer] recommendations 4) Continue current plan of care Expected Outcomes/Goals: 1) Pt to receive nutrition support within 7 days of NPO status 2) Pt diet to advance 3) F/U in 2-3 days Plan discussed with: Son, Other Critical Care Time(min): 35 PILAR HOOD MD Jul 08, 2024 11:29
--- NOTE | 2024-07-08 15:59 | DVHPN2 ---
Progress Note Date Seen: Jul 08, 2024 Medical Necessity Reason Pt with a Central, PICC or Fol: No The following are medically ne: Central Line Subjective Patient reports: Other (intubated) Review of Systems: Deferred Objective vital signs Vital Sign Date Time Temp Pulse Resp B/P (MAP) Pulse Ox O2 Delivery O2 Flow Rate FiO2 07/08/24 14:00 17 98 Trach Collar 10 40 40 07/08/24 14:00 107 07/08/24 14:00 123/77 (92) 07/08/24 12:00 100.2 100.2 Total Intake and Output 07/07/24 07/07/24 07/08/24 15:00 23:00 07:00 Intake Total 50 ml 380 ml 458 ml Output Total 0 ml 0 ml Balance 50 ml 380 ml 458 ml medications Current Medications Medications Dose Ordered Sig/Yousif Route Start Time Stop Time Status Last Admin Dose Admin Midazolam HCl 50 ml @ 1 mls/hr Q24H IV 05/25/24 06:30 05/29/24 09:11 5 MLS/HR Atorvastatin Calcium 40 mg HS NG 05/25/24 22:00 07/07/24 22:16 40 MG Ondansetron HCl 4 mg Q4HP PRN IV 05/25/24 10:45 Nitroglycerin 0.4 mg Q5MINP PRN SL 05/25/24 10:45 Aspirin 81 mg DAILY PO 06/10/24 10:00 07/08/24 10:00 81 MG Enteral Nutritional Formula 1,000 ml 40ML/HR GT 06/15/24 09:15 07/07/24 05:31 1,000 ML Sodium Chloride 10 ml QSHIFT@10,22 IV 06/17/24 22:00 07/08/24 10:00 10 ML Albuterol 2.5 mg Q6HR NEB 06/20/24 12:00 07/08/24 11:47 2.5 MG Ipratropium [place] 0.5 mg Q6HR NEB 06/20/24 12:00 07/08/24 11:47 0.5 MG Ceftriaxone Sodium/Dextrose 50 ml @ 50 mls/hr BID IV 06/21/24 22:00 07/08/24 10:00 50 MLS/HR Vancomycin HCl 0 ml @ 0 mls/hr UD IV 06/27/24 23:45 Cancel Acetaminophen 650 mg Q6HP PRN PO 06/28/24 17:45 07/08/24 13:30 650 MG Norepinephrine Bitartrate 250 ml @ 3.75 mls/hr Q24H IV 06/29/24 05:30 06/29/24 06:05 3.75 MLS/HR Hydralazine HCl 10 mg Q6HPRN PRN IV 07/01/24 13:15 07/06/24 14:53 10 MG Labetalol HCl 10 mg Q2HPRN PRN IV 07/03/24 14:15 07/07/24 18:54 10 MG Carvedilol 6.25 mg Q12HR PO 07/06/24 22:00 07/08/24 10:21 6.25 MG Hydralazine HCl 25 mg Q8HR GT 07/06/24 14:39 07/08/24 13:30 25 MG Examination: GENERAL:Abnormal, LUNGS:Abnormal, NEURO:Abnormal laboratory and microbiology Laboratory Tests 07/08/24 03:20 Test 07/08/24 03:20 Range/Units Serum Glucose 102 74-106 mg/dL Microbiology Date/Time Source Procedure Growth Status 06/28/24 00:38 Blood Blood Culture - Final NO GROWTH AFTER 5 DAYS OF INCUBATION. Complete 06/09/24 17:21 Urine - [place] Urine Culture - Final Complete 05/27/24 08:50 Nose MRSA Screen - Final Complete 05/25/24 06:50 Sputum Gram Stain - Final Complete 05/25/24 06:50 Respiratory Culture - Final Presumptive Tara albicans Complete Problem List/Assessment/Plan Problem List/Assessment/Plan Acute kidney injury ATN on acute dialysis Unknown baseline septic shock Hypertension Gram + bacteremia endocarditis septic emboli Morbid obesity Strept PNA AMS Ventilator-dependent hypoxic respiratory failure now trach recs HD 07/09 -Next dialysis will follow DC pending Plan discussed with: Other Dietary Evaluation Review Comments: 1) If GI is accessible consider Jevity 1.2 @ 70ml/hr x 24hr continuous feed goal rate as tolerated 2) If pt remains NPO >7 days consider TPN to meet at least 75% of estimated needs 3) Advance pt diet when medically feasible to a 2gm Sodium diet modified per [employer] recommendations 4) Continue current plan of care Expected Outcomes/Goals: 1) Pt to receive nutrition support within 7 days of NPO status 2) Pt diet to advance 3) F/U in 2-3 days LAN CHOWDHURY MD Jul 08, 2024 15:59
--- NOTE | 2024-07-08 16:47 | DVHDS2 ---
Discharge Summary Date of Admission May 25, 2024 at 23:54 Date of Discharge: Jul 01, 2024 Admitting Diagnosis Septic shock Labs/Diagnostic Data: Laboratory Results Test 07/08/24 03:20 07/06/24 08:14 07/05/24 03:45 07/04/24 07:36 White Blood Count 9.7 10^3/uL (4.4-10.8) Red Blood Count 3.20 10^6/uL (4.0-5.20) Hemoglobin 9.5 g/dL (12.2-16.2) Hematocrit 29.4 % (36.0-46.0) Mean Corpuscular Volume 92.1 fL (80.0-100.0) Mean Corpuscular Hemoglobin 29.6 pg (28.0-32.0) Mean Corpuscular Hemoglobin Concent 32.1 g/dL (32.0-36.0) Red Cell Distribution Width 16.8 % (11.8-14.3) Platelet Count 260 10^3/uL (140-450) Mean Platelet Volume 7.5 fL (6.9-10.8) Neutrophils (%) (Auto) 62.6 % (37.0-80.0) Lymphocytes (%) (Auto) 21.9 % (10.0-50.0) Monocytes (%) (Auto) 12.5 % (0.0-12.0) Eosinophils (%) (Auto) 2.3 % (0.0-7.0) Basophils (%) (Auto) 0.7 % (0.0-2.0) Neutrophils # (Auto) 6.1 10 ^3/uL (1.6-8.6) Lymphocytes # (Auto) 2.1 10 ^3/uL (0.4-5.4) Monocytes # (Auto) 1.2 10 ^3/uL (0-1.3) Eosinophils # (Auto) 0.2 10 ^3/uL (0-0.8) Basophils # (Auto) 0.1 10 ^3/uL (0-0.2) Nucleated Red Blood Cells 0.2 % Sodium Level 137 mmol/L (136-145) Potassium Level 3.7 mmol/L (3.5-5.1) Chloride Level 97 mmol/L (98-107) Carbon Dioxide Level 27 mmol/L (20-31) Anion Gap 13 (5-15) Blood Urea Nitrogen 38 mg/dL (9-23) Creatinine 5.14 mg/dL (0.550-1.02) Glomerular Filtration Rate Calc 9 mL/min (>90) BUN/Creatinine Ratio 7.4 (10.0-20.0) Serum Glucose 102 mg/dL (74-106) Calcium Level 10.1 mg/dL (8.7-10.4) Blood Gas Specimen Type Arterial Blood Gas Sample Site Right radial Blood Gas Patient Temperature 37.0 Arterial Blood Date Drawn [id number] Arterial Blood pH 7.476 (7.350-7.450) Arterial Blood Partial Pressure CO2 35.2 mmHg (32.0-45.0) Arterial Blood Partial Pressure O2 113.1 mmHg (83.0-108.0) Arterial Blood HCO3 25.4 mmol/L (21.0-28.0) Arterial Blood Oxygen Saturation 97.7 % (94.0-98.0) Arterial Blood Base Excess 2.0 mmol/L (-2.0-3.0) Arterial Blood Oxyhemoglobin 96.8 % (94.0-98.0) Arterial Blood Carboxyhemoglobin 0.6 % (0.5-1.5) Arterial Blood Methemoglobin 0.3 % (0.0-1.5) Joni Test Yes Blood Gas Total Hemoglobin 10.10 g/dL (12.0-16.0) Blood Gas Liter Flow 10.00 Blood Gas Modality Cool aerosol FiO2 % 40.0 Magnesium Level 2.6 mg/dL (1.6-2.6) Specimen Drawn By nanette rt Blood Gas Comments pt on trach mask Test 07/03/24 13:54 07/03/24 06:59 07/02/24 07:19 06/30/24 11:49 Blood Gas Spontaneous Rate 20 Blood Gas Spontaneous Tidal Volume 369 Blood Gas Inspiratory Pressure 16.0 Blood Gas Pressure Support 8 Blood Gas PEEP or CPAP 5.0 Bl Gas Inspiratory/Expiratory Ratio 1:2.8 Blood Gas Set Respiration Rate 18.0 Blood Gas Tidal Volume 500.0 Total Bilirubin 0.3 mg/dL (0.2-1.0) Aspartate Amino Transferase (AST) 42 U/L (13-40) Alanine Aminotransferase (ALT) 54 U/L (7-40) Alkaline Phosphatase 109 U/L (46-116) Total Protein 7.0 g/dL (5.7-8.2) Albumin 3.7 g/dL (3.2-4.8) Blood Gas Critical Value Read Back Yes Blood Gas Notified Whom Dr. dinorah shepherd Blood Gas Notified Time [id number] Blood Gas Notified By Test 06/30/24 03:20 06/29/24 03:30 06/23/24 02:57 06/21/24 14:25 Differential Total Cells Counted 100.0 (100) Neutrophils % (Manual) 66 (37.0-80.0) Band Neutrophils % (Manual) 0 Lymphocytes % (Manual) 19 (10.0-50.0) Monocytes % (Manual) 10 (0-12) Eosinophils % (Manual) 5 (0-7) Basophils % (Manual) 0 (0.0-2.0) Metamyelocytes % (manual) 0 Myelocytes % (Manual) 0 Promyelocytes % (Manual) 0 Blast Cells % (Manual) 0 Reactive Lymphocytes 0 Platelet Estimate Adequate Random Vancomycin Level 21.4 ug/mL (5-10) Prothrombin Time 11.6 sec (9.3-11.8) Prothrombin Time INR 1.11 (0.9-1.15) Activated Partial Thromboplast Time 25.6 SEC (24.5-34.5) POC Glucose 104 mg/dl (70-106) Test 06/19/24 03:28 06/02/24 13:17 06/01/24 04:00 05/28/24 03:43 Phosphorus Level 3.9 mg/dL (2.4-5.1) Ammonia < 10 umol/L (11-32) Vitamin B1 Level 118.2 nmol/L (66.5-200.0) Vitamin B12 Level 836 pg/mL (211-911) Vitamin D 25-Hydroxy 26 ng/mL (.) 25-Hydroxy Vitamin D2 <1.0 ng/mL (.) 25-Hydroxy Vitamin D3 26 ng/mL (.) Hepatitis A IgM Antibody Negative Hepatitis B Surface Antigen Negative (Negative) Hepatitis B Core IgM Antibody Negative (Negative) Hepatitis C Antibody Negative (Negative) Iron Level 24 ug/dL (50-170) Total Iron Binding Capacity 279 ug/dL (250-425) Percent Iron Saturation 8.6 % (15-50) Ferritin 355.1 ng/mL (10-291) Smudge Cells 1 /100 WBC Test 05/28/24 01:30 05/27/24 03:35 05/26/24 11:00 05/26/24 06:17 Urine Creatinine 248.25 mg/dL (30.0-125.0) Urine Sodium 27 mmol/L (40-220) Urine Total Protein 293.2 mg/dL (1-14) Hypochromasia (manual) Slight Anisocytosis (manual) Slight Uric Acid 10.9 mg/dL (3.1-7.8) Lactic Acid Level 3.6 mmol/L (0.4-2.0) Test 05/26/24 03:35 05/25/24 22:40 05/25/24 11:35 05/25/24 08:30 Large Platelets Few Triglycerides Level 164 mg/dL (< 150) Cholesterol Level 87 mg/dL (< 200) LDL Cholesterol 23 mg/dL (< 100) HDL Cholesterol 6 mg/dL (40-59) Lipase 47 U/L (12-53) Troponin I High Sensitivity 1262 ng/L (</=34) Thyroid Stimulating Hormone (TSH) 0.57 uIU/mL (0.55-4.78) Urine Color Yellow (Yellow) Urine Clarity Clear (Clear) Urine pH 7.5 (5.0-9.0) Urine Specific [place] 1.013 (1.001-1.035) Urine Protein 2+ (Negative) Urine Ketones Negative (Negative) Urine Blood Negative /uL (Negative) Urine Nitrite Negative (Negative) Urine Bilirubin Negative (Negative) Urine Urobilinogen 8 mg/dL (Negative) Urine Leukocyte Esterase Negative /uL (Negative) Urine RBC 5 /hpf (0 - 4) Urine WBC 1 /hpf (0 - 5) Urine Squamous Epithelial Cells Few /hpf (<5) Urine Bacteria None seen /hpf (None Seen) Urine Glucose Normal mg/dL (Normal) Urine Opiates Screen Neg (NEGATIVE) Urine Fentanyl Screen Neg (NEGATIVE) Urine Barbiturates Screen Neg (NEGATIVE) Urine Phencyclidine Screen Neg (NEGATIVE) Urine Amphetamines Screen Neg (NEGATIVE) Urine Benzodiazepines Screen Neg (NEGATIVE) Urine Cocaine Screen Neg (NEGATIVE) Urine Cannabinoids Screen Neg (NEGATIVE) Test 05/25/24 08:24 05/25/24 06:40 Hemoglobin A1c 5.6 % A1C (<5.7) B-Type Natriuretic Peptide 1384.04 pg/mL (0-100) Influenza Type A Antigen Negative (Negative) Influenza Type B Antigen Negative (Negative) SARS-CoV-2 Antigen (Rapid) Negative (NEGATIVE) Other Laboratory Tests 07/08/24 03:20 Brief Hx & Hospital Course: History of Present Illness María Pandya is a 53-year-old female with past medical history of hypertension who presents to the ED for shortness of breath. Per son Jc he states that his sister was at home with his mom went to go check on her in the bedroom and she was complaining of shortness of breath so she called EMS was brought here to the ED and was altered then subsequently intubated. Per patient's son Jc he states that his mom has been sick for about a month and has been taking [id number] medications along with tea to help with a cold and her headache. Patient's son reports that she has a history of hypertension who has been compliant with her medications however he does not know what medications she is taking. Patient is currently intubated and on the vent. Course of hospitalization: After patient was admitted in the hospital, the patient had decline in overall status requiring endotracheal intubation, mechanical ventilation is vasopressor therapy. Patient was also found to be acute kidney injury, with hemodialysis initiated in the patient. Patient grew Streptococcus pneumoniae in her blood. Patient's blood cultures has been clear of bacteria x2. Difficulty was found weaning patient off of ventilator secondary to her neurological status. Patient had MRI of the brain as well as multiple CT scans while in the hospital. Patient was found to have acute CVA. Patient underwent SAMIR which found the patient to have endocarditis with mitral valve growth. Infectious Disease consultation was obtained with recommendations including Rocephin 2 g IV daily, for a total of six weeks which she will be continued on July 27, 2024. Patient had difficulty weaning from ventilator requiring tracheostomy, peg tube placement in addition to patient on continuous hemodialysis with tunneled catheter placement. Patient has a PICC line. She was tolerating tube feedings. Currently she is hemodynamically stable. Long discussion was made on multiple occasions with the patient's son, Jc regarding transfer to long-term acute care facility, for which he was now agreeable to. Report was given to Dr. Kanwal Morales, who has accepted patient. All questions answered. Physical examination General: Alert and Oriented x3. No acute distress. Well-nourished. Obese Eyes: EOMI. Anicteric. HENT: Moist mucous membranes. Tracheostomy Lungs: Clear to auscultation bilaterally. No accessory muscle use. Cardiovascular: Regular rate and rhythm. No murmur. No JVD. Abdomen: Soft, non-tender and non-distended. No palpable masses. Peg tube Extremities: No edema. Non-tender. Skin: No rashes or lesions. Warm. Neurologic: No focal neurological deficits. CN II-XII grossly intact, but not individually tested. Psychiatric: Cooperative. Appropriate mood and affect. Total time spent with patient discussing and formulating plan of care: 35 minutes. This medical document was created using an electronic medical record system with [employer] system. Although this document has been carefully reviewed, there may still be some phonetic and typographical errors. These areas are purely typographical due to imperfections of the software programs, and do not reflect any compromise in the patient's medical care. Consults/Reason for consult Cardiology: Shock, SAMIR for endocarditis Interventional Radiology: HD catheter placement Infectious disease: Endocarditis Pulmonary: Acute respiratory failure Neurology: Acute CVA Condition at Discharge: Guarded Final Diagnosis/Problems List Endocarditis Secondary diagnosis -severe sepsis with shock , Streptococcus pneumoniae -probable community-acquired pneumonia with Gram-positive cocci -sepsis with Gram-positive cocci -acute hypoxic respiratory failure with mechanical ventilation -obesity -acute kidney injury, anuric -NSTEMI, probably type 2 -hypoalbuminemia -? Angioedema on resolved -respiratory alkalosis -multifocal CVA -endocarditis Discharge Disposition: Acute Care Facility Discharge Instruct/Medications Diet: See Comment Diet comment: Nepro at 50ml/hr Activity: No Restrictions, As Tolerated Medications: Refer to medication reconciliation form 36 Discharge Statement: "Patient was advised to return to the ER or call 911 if any headaches, dizziness, shortness of breath, chest pain, abdominal pain, bleeding, fevers, or worsening of medical condition. Patient was counseled about treatment plan, medications, possible side effects, patientverbalized understanding. All questions were answered to the best of my ability. This discharge took greater then 30 minutes in planning, reviewing documentation, counseling the patient, and discussing with other team members." ASSESSMENT ASSESSMENT Assessment Endocarditis Date of Service: Jul 08, 2024 Billing Provider: OMAR PARK NP Common Visit Codes: 31441-UFF/OBS DISCH DAY >30min OMAR PARK NP Jul 08, 2024 16:47
--- NOTE | 2024-07-08 22:50 | DVHPN2 ---
Progress Note - Dictate Date Seen: Jul 08, 2024 Medical Necessity Reason Pt with a Central, PICC or Fol: No The following are medically ne: Central Line Subjective Patient seen and examined at bedside. S/p trach, on humidified O2 Overnight events reviewed. vital signs Vital Sign Date Time Temp Pulse Resp B/P (MAP) Pulse Ox O2 Delivery O2 Flow Rate FiO2 07/08/24 21:48 156/100 07/08/24 21:48 103 07/08/24 19:00 30 98 07/08/24 18:34 Trach Collar 8 40 40 07/08/24 16:00 99.7 99.7 Total Intake and Output 07/07/24 07/07/24 07/08/24 15:00 23:00 07:00 Intake Total 50 ml 380 ml 458 ml Output Total 0 ml 0 ml Balance 50 ml 380 ml 458 ml medications Current Medications Medications Dose Ordered Sig/Yousif Route Start Time Stop Time Status Last Admin Dose Admin Midazolam HCl 50 ml @ 1 mls/hr Q24H IV 05/25/24 06:30 05/29/24 09:11 5 MLS/HR Atorvastatin Calcium 40 mg HS NG 05/25/24 22:00 07/08/24 21:48 40 MG Ondansetron HCl 4 mg Q4HP PRN IV 05/25/24 10:45 Nitroglycerin 0.4 mg Q5MINP PRN SL 05/25/24 10:45 Aspirin 81 mg DAILY PO 06/10/24 10:00 07/08/24 10:00 81 MG Enteral Nutritional Formula 1,000 ml 40ML/HR GT 06/15/24 09:15 07/07/24 05:31 1,000 ML Sodium Chloride 10 ml QSHIFT@10,22 IV 06/17/24 22:00 07/08/24 21:47 10 ML Albuterol 2.5 mg Q6HR NEB 06/20/24 12:00 07/08/24 18:32 2.5 MG Ipratropium [place] 0.5 mg Q6HR NEB 06/20/24 12:00 07/08/24 18:32 0.5 MG Ceftriaxone Sodium/Dextrose 50 ml @ 50 mls/hr BID IV 06/21/24 22:00 07/08/24 21:41 50 MLS/HR Vancomycin HCl 0 ml @ 0 mls/hr UD IV 06/27/24 23:45 Cancel Acetaminophen 650 mg Q6HP PRN PO 06/28/24 17:45 07/08/24 13:30 650 MG Norepinephrine Bitartrate 250 ml @ 3.75 mls/hr Q24H IV 06/29/24 05:30 06/29/24 06:05 3.75 MLS/HR Hydralazine HCl 10 mg Q6HPRN PRN IV 07/01/24 13:15 07/06/24 14:53 10 MG Labetalol HCl 10 mg Q2HPRN PRN IV 07/03/24 14:15 07/07/24 18:54 10 MG Carvedilol 6.25 mg Q12HR PO 07/06/24 22:00 07/08/24 21:48 6.25 MG Hydralazine HCl 25 mg Q8HR GT 07/06/24 14:39 07/08/24 21:48 25 MG objective Gen.: Patient lying in bed in no apparent distress. S/p trach, on humidified O2 Head: Normocephalic, atraumatic. Eyes: EOMI/PERRLA. Ears: Normal hearing. Normal anatomy. Neck: Trach in place Nose: Normal external anatomy. Mouth: Moist mucous membranes. Chest: Decreased air entry bilaterally. No wheezing or rhonchi. Cardiovascular: Positive S1, positive S2. Regular rate and rhythm. Abdomen: Positive bowel sounds in all 4 quadrants. Soft, non-tender, non- distended. : Deferred. Rectal: Deferred. Skin: Warm, dry. Intact. Extremities: 2+ radial pulses bilaterally. No lower extremity edema. Neuro: Awake, follows commands. No gross motor or sensory deficits. Cranial nerves II through XII intact. Gait not assessed. laboratory and microbiology Laboratory Tests 07/08/24 03:20 Test 07/08/24 03:20 Range/Units Serum Glucose 102 74-106 mg/dL Assessment/Plan Impression: Acute hypoxic respiratory failure S/p tracheostomy Septic shock Elevated troponin Acute kidney injury Lactic acidosis Metabolic acidosis Multifocal pneumonia, likely gram negative Pulmonary edema AE COPD Events: S/p trach, on trach collar w/ humidified O2. Patient tolerating trach collar, remains on 10 LPM via trach collar. Patient awake and following commands. No acute issues Trach care Pulmonary toileting PEG tube in place Hemodialysis per Nephrology Off sedation Off pressors, hemodynamically stable. Continue bronchodilators Continue antibiotics Blood cultures show no growth after 5 days Tube feeds for nutritional support Wound care Monitor hemoglobin Blood pressure control Monitor renal function Monitor electrolytes, supplement as necessary CHANG - Hemodialysis per Nephrology Nephrology recs appreciated. Echo showed EF of 40%. SBT/KAREN Continue daily CPAP. Supportive care Disposition per hospitalist Awaiting LTAC placement Poor prognosis, poor chance of meaningful recovery CT head revealed e/o multiple strokes. Neurology recommendations appreciated Labs and imaging reviewed. Rest of plan as noted below. Plan: s/p trach, on trach collar. PS/trach collar trials through the day AC vent support PRN only Currently on 10 LPM via trach collar. Titrate to keep O2 saturation above 90%. VAP bundle. Daily ABG and CXR while intubated Off sedation Continue bronchodilators. Continue antibiotics. F/u cultures. Pressors if necessary for hemodynamic support Titrate to keep mean arterial pressure greater than 65 mmHg. Cardiology recs appreciated. Monitor renal function Monitor electrolytes. Supplement as necessary. Monitor ins and outs. Nephrology recs appreciated. IV fluid hydration GI prophylaxis. DVT prophylaxis. Prognosis: Poor given patient's multiple co-morbidities. Rest of plan per hospitalist and other consultants. Thank you, [employer], for allowing me to participate in this patient's care. Further recommendations will depend on the patient's clinical course. Please do not hesitate to contact me if you have any questions or concerns. This medical document was created using an electronic medical record system with [employer] dictation system. Although these documentations are being carefully reviewed, there may still be some phonetic and typographical changes. The errors are purely typographical, due to imperfection on the software program, and do not reflect any compromise in the patient's medical care. Dietary Evaluation Review Comments: 1) If GI is accessible consider Jevity 1.2 @ 70ml/hr x 24hr continuous feed goal rate as tolerated 2) If pt remains NPO >7 days consider TPN to meet at least 75% of estimated needs 3) Advance pt diet when medically feasible to a 2gm Sodium diet modified per [employer] recommendations 4) Continue current plan of care Expected Outcomes/Goals: 1) Pt to receive nutrition support within 7 days of NPO status 2) Pt diet to advance 3) F/U in 2-3 days Plan discussed with: Patient, Other (LUZMARIA ELIZABETHMELODY M MD Jul 08, 2024 22:50
--- NOTE | 2024-07-08 23:51 | DVHPN2 ---
Consult Progress Note Date Seen: Jul 08, 2024 Subjective Patient reports: Other (continues to have fevers as shruthi as 100.2 , occasionally having a cough reflex with sternal rub , crackles in lungs bilatrally and tachycardic ) Objective vital signs Vital Sign Date Time Temp Pulse Resp B/P (MAP) Pulse Ox O2 Delivery O2 Flow Rate FiO2 07/08/24 23:00 104 33 120/70 (87) 95 07/08/24 22:00 Trach Collar 8 40 40 07/08/24 20:00 98.9 98.9 Total Intake and Output 07/07/24 07/07/24 07/08/24 15:00 23:00 07:00 Intake Total 50 ml 380 ml 458 ml Output Total 0 ml 0 ml Balance 50 ml 380 ml 458 ml medications Current Medications Medications Dose Ordered Sig/Yousif Route Start Time Stop Time Status Last Admin Dose Admin Midazolam HCl 50 ml @ 1 mls/hr Q24H IV 05/25/24 06:30 05/29/24 09:11 5 MLS/HR Atorvastatin Calcium 40 mg HS NG 05/25/24 22:00 07/08/24 21:48 40 MG Ondansetron HCl 4 mg Q4HP PRN IV 05/25/24 10:45 Nitroglycerin 0.4 mg Q5MINP PRN SL 05/25/24 10:45 Aspirin 81 mg DAILY PO 06/10/24 10:00 07/08/24 10:00 81 MG Enteral Nutritional Formula 1,000 ml 40ML/HR GT 06/15/24 09:15 07/07/24 05:31 1,000 ML Sodium Chloride 10 ml QSHIFT@10,22 IV 06/17/24 22:00 07/08/24 21:47 10 ML Albuterol 2.5 mg Q6HR NEB 06/20/24 12:00 07/08/24 18:32 2.5 MG Ipratropium [place] 0.5 mg Q6HR NEB 06/20/24 12:00 07/08/24 18:32 0.5 MG Ceftriaxone Sodium/Dextrose 50 ml @ 50 mls/hr BID IV 06/21/24 22:00 07/08/24 21:41 50 MLS/HR Vancomycin HCl 0 ml @ 0 mls/hr UD IV 06/27/24 23:45 Cancel Acetaminophen 650 mg Q6HP PRN PO 06/28/24 17:45 07/08/24 13:30 650 MG Norepinephrine Bitartrate 250 ml @ 3.75 mls/hr Q24H IV 06/29/24 05:30 06/29/24 06:05 3.75 MLS/HR Hydralazine HCl 10 mg Q6HPRN PRN IV 07/01/24 13:15 07/06/24 14:53 10 MG Labetalol HCl 10 mg Q2HPRN PRN IV 07/03/24 14:15 07/07/24 18:54 10 MG Carvedilol 6.25 mg Q12HR PO 07/06/24 22:00 07/08/24 21:48 6.25 MG Hydralazine HCl 25 mg Q8HR GT 07/06/24 14:39 07/08/24 21:48 25 MG General Appearance: Cooperative. Well developed. Well nourished. NAD. intubated and sedated . morbidly obease Head Exam: Normal inspection Neck Exam: Normal inspection. Non-tender. Normal alignment Pulmonary/Respiratory: Chest non-tender. Clear bilateral breath sounds. minimal vent with traces of pressures and unable to ween off vent due to mentating well of sedation but continues to have signs of agitation Cardiovascular/Chest: No murmurs. No JVD. Abdominal Exam: Normal bowel sounds. Soft. Nontender. No hepatosplenomegaly. 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 concern for septic picture , patient was needing ventilatory support , vasopressures , steroids . no known history of drungs or smoking . no recent medications. orginally treated with cefapine and doxycycline but eventually put on dialysis and found strep pneumonia in blood , likely lung origin . found to have vegitation in the antrium and anterior mitral leflet which was confirmed on SAMIR as well as mitral regurgitation . MRI of brain concerning for possible small focus of subacute ischemia and the right periventricular region likely consistent with septic embolie . SAMIR showed 3 mm vegitation on the intermitral leftlet . currently on ceftriaxone therapy for endocarditis. negative for any type of hepatitis , urine drig screen was negative . no signs of septic embolism problem list - strep pneumonia , bacteremia , endocarditis , septic shock , septic emboli to brain , pneumonia, mitral valve regurgitation , CHF , acute renal failure on dialysis 2: Difficult to ween off vent and has been having improved airspace opacities on chest xray and since has been started on Ceftriaxone 2 grams Q12 , chest Ct was done and there was no finding to suggest septic emboli or persistent plural effusions that could be keeping patients from being off the ventilator . Continue Ceftriaxone 2 grams every 12 hours for 6 weeks via piccline . prognosis overall is poor , may proceed with tracheostomy . no contraindications from infectious disease of additional infectious work up needed 2: underwent dialysis and tolerated procedure without any issues . Patient has a clean tracheostomy placed today without any complications and site appears clean. Patient is currently on FIO2 50% on trach . Continue ceftriaxone 2 grams every 12 hours for 6 weeks . If patients clinical status allows would recommend patient follow up with infectious disease in 6 weeks to repeat echocardiogram as well as determine if additional therapy is needed for endocarditis. 2: S/P tracheostomy with no signs of intolerance and still vent dependant . plan will be to continue antibiotics for 6 weeks of ceftriaxone for endocarditis and to follow up with infectious disease clinic in 6 weeks 2: remains vent dependant and on 6 of levofed . FIO2 50% and pressure dependant . tolerating tracheostomy and tube feeds via NG tube and underwent dialysis yesterday without any issues . continue antibiotic plan 06/26: chest xray shows mild vascular congestion 06/27: patient is levofed dependant and unclear what is contributing to overall hypotension. spoke with nursing staff to pursue aggressive sedation to see if patient will wake up and if patient is awake would consider cardiology reevaluation for potential cardiothoracic surgery 06/28: elevated temps as high as 100.2 , possibly related to agitation during CPAP 06/29: Patient has been switched off sedation to see if she can tolerate CPAP and potentially be weaned off the vent 06/30: MRI was done of the brain and shows asymmetrically decreased flow signal in the right M3 and M4 arterial branches compared to the left distal MCA arterial stenosis / occlusion is not excluded . CT chest was done and shows a bilateral lower lobe infiltrates slightly worse than previous , now a small left plural effusion 07/01: patients blood pressures have significantly improved and if off pressure support , holding good maps . new blood cultures are no growth to date 07/02: patient is off pressures and responding to antibiotics however is not able to wake up and not able to be weaned from the vent 07/04: patient is awake and alert on pressure support 07/05: tolerating antibiotics and stable 07/06: chest x ray shows no significant changes 07/07: Patient was given tylenol for elevated temp of 99.7 , oral findings are consistent with micro aspiration and tachycardia 07/08: tachycardic with elevated temp and no growth on blood cultures . chest xray from 07/06 shows no significant changes Plan: - consider adjustment of dialysis regimen due to tachycardia and defer to cardiology for management , low suspicion tachycardia is related to infectious process - repeat blood cultures in light of elevated temps - suspect patients tachycardia is related to microaspiration , recommend exercising good aspiration precautions and keeping bad raised 30 degrees - due to patient undergone sub therapeutic dose of ceftriaxone for 1 week would extend patients 6 week course to 7 weeks , end of therapy will be 07/14/2024 - in light of worsening chest ct recommend getting a sputum culture - Continue ceftriaxone 2 grams every 12 hours for 6 weeks . If patients clinical status allows would recommend patient follow up with infectious disease in 6 weeks to repeat echocardiogram as well as determine if additional therapy is needed for endocarditis. -continue ceftriaxone 2 g twice daily, recommend for total six weeks for endocarditis. -on hemodialysis -rest of the medical management as per primary care team and pulmonology nephrology. - prognosis is poor Plan discussed with: Other Dietary Evaluation Review Comments: 1) If GI is accessible consider Jevity 1.2 @ 70ml/hr x 24hr continuous feed goal rate as tolerated 2) If pt remains NPO >7 days consider TPN to meet at least 75% of estimated needs 3) Advance pt diet when medically feasible to a 2gm Sodium diet modified per [employer] recommendations 4) Continue current plan of care Expected Outcomes/Goals: 1) Pt to receive nutrition support within 7 days of NPO status 2) Pt diet to advance 3) F/U in 2-3 days JOSH VERNON MD Jul 08, 2024 23:51
[2024-07-09] VITALS (48 sets, daily range): BP systolic 98–195; BP diastolic 38–110; PULSE 90–137; RESP 9–44; TEMP 98.3–99.4; O2SAT 94–100
[2024-07-09 04:29] LABS: Basophils # (auto) 0 10 ^3/uL (0-0.2); Basophils % (auto) 0.5 % (0.0-2.0); Eosinophils # (auto) 0.3 10 ^3/uL (0-0.8); Eosinophils % (auto) 3.2 % (0.0-7.0); Hematocrit 29.5 % (36.0-46.0); Hemoglobin 9.6 g/dL (12.2-16.2); Lymphocytes # (auto) 1.9 10 ^3/uL (0.4-5.4); Lymphocytes % (auto) 18.8 % (10.0-50.0); Mean Corpuscular Hemoglobin 29.7 pg (28.0-32.0); Mean Corpuscular Hgb Conc. 32.5 g/dL (32.0-36.0); Mean Corpuscular Volume 91.6 fL (80.0-100.0); Monocytes # (auto) 1.4 10 ^3/uL (0-1.3); Neutrophils # (auto) 6.5 10 ^3/uL (1.6-8.6); Neutrophils % (auto) 63.5 % (37.0-80.0); Nucleated Red Blood Cells % 0.1 %; Platelet Count (auto) 264 10^3/uL (140-450); Red Blood Cells 3.22 10^6/uL (4.0-5.20); Red Cell Distribution Width 17.1 % (11.8-14.3); White Blood Cell 10.3 10^3/uL (4.4-10.8)
[2024-07-09 04:46] LABS: Anion Gap 16 (5-15); Carbon Dioxide 26 mmol/L (20-31); Sodium 137 mmol/L (136-145)
[2024-07-09 04:47] LABS: Calcium 10.2 mg/dL (8.7-10.4)
[2024-07-09 04:52] LABS: BUN/Creatinine Ratio 8.1 (10.0-20.0); Glucose 96 mg/dL (74-106)
[2024-07-09 05:22] LABS: Blood Urea Nitrogen 54 mg/dL (9-23); Chloride 95 mmol/L (98-107); Magnesium 2.6 mg/dL (1.6-2.6)
--- NOTE | 2024-07-09 09:50 | DVHPN2 ---
Subjective Patient with neurological deficits. Now tracking to voice. Reviewed: Care Plan, H&P, Labs, Medications, Previous Orders, Radiology, Other (Consultations) Changes from previous H/P or p: No Changes General: Per HPI Objective Vitals Vital Signs Date Time Temp Pulse Resp B/P (MAP) Pulse Ox O2 Delivery O2 Flow Rate FiO2 07/09/24 07:00 105 37 130/76 (94) 96 07/09/24 06:45 Trach Collar 8 40 Cool Aerosol 40 07/09/24 04:00 98.9 98.9 Intake/Output Intake and Output 07/09/24 07:00 Intake Total 736 ml Output Total 0 ml Balance 736 ml Intake Oral 360 ml IV Total 100 ml Tube Feeding 276 ml Output Urine Total 0 ml # Bowel Movements 1 General Appearance: Alert, mild distress HEENT: Atraumatic, Other (Tracheostomy) Neck: Other (Tracheostomy) Lungs: Other (MV sounds) Chest/Breasts: Other (HD catheter ) Cardiovascular: Regular rate, Normal S1, Normal S2 Abdomen: Other (Decreased bowel sounds; G-tube in place) Genitourinary: Other ([place]) Neuro: Other (Patient was open eyes and moves head to verbal and tactile stimuli.) Skin: Dry, Intact Psych/Mental Status: Other (Sedated) Medications Current Medications Medications Dose Ordered Sig/Yousif Route Start Time Stop Time Status Last Admin Dose Admin Midazolam HCl 50 ml @ 1 mls/hr Q24H IV 05/25/24 06:30 05/29/24 09:11 5 MLS/HR Atorvastatin Calcium 40 mg HS NG 05/25/24 22:00 07/08/24 21:48 40 MG Ondansetron HCl 4 mg Q4HP PRN IV 05/25/24 10:45 Nitroglycerin 0.4 mg Q5MINP PRN SL 05/25/24 10:45 Aspirin 81 mg DAILY PO 06/10/24 10:00 07/08/24 10:00 81 MG Enteral Nutritional Formula 1,000 ml 40ML/HR GT 06/15/24 09:15 07/09/24 03:22 1,000 ML Sodium Chloride 10 ml QSHIFT@10,22 IV 06/17/24 22:00 07/08/24 21:47 10 ML Albuterol 2.5 mg Q6HR NEB 06/20/24 12:00 07/09/24 06:45 2.5 MG Ipratropium [place] 0.5 mg Q6HR NEB 06/20/24 12:00 07/09/24 06:45 0.5 MG Ceftriaxone Sodium/Dextrose 50 ml @ 50 mls/hr BID IV 06/21/24 22:00 07/08/24 21:41 50 MLS/HR Vancomycin HCl 0 ml @ 0 mls/hr UD IV 06/27/24 23:45 Cancel Acetaminophen 650 mg Q6HP PRN PO 06/28/24 17:45 07/08/24 13:30 650 MG Norepinephrine Bitartrate 250 ml @ 3.75 mls/hr Q24H IV 06/29/24 05:30 06/29/24 06:05 3.75 MLS/HR Hydralazine HCl 10 mg Q6HPRN PRN IV 07/01/24 13:15 07/06/24 14:53 10 MG Labetalol HCl 10 mg Q2HPRN PRN IV 07/03/24 14:15 07/09/24 03:31 10 MG Carvedilol 6.25 mg Q12HR PO 07/06/24 22:00 07/08/24 21:48 6.25 MG Hydralazine HCl 25 mg Q8HR GT 07/06/24 14:39 07/09/24 06:08 25 MG Laboratory Results Laboratory Tests 07/09/24 03:40 Chemistry Test 07/09/24 03:40 Calcium Level 10.2 mg/dL (8.7-10.4) Magnesium Level 2.6 mg/dL (1.6-2.6) Urinalysis Test 05/25/24 08:30 05/28/24 01:30 Urine Color Yellow (Yellow) Urine Clarity Clear (Clear) Urine pH 7.5 (5.0-9.0) Urine Specific [place] 1.013 (1.001-1.035) Urine Protein 2+ (Negative) H Urine Ketones Negative (Negative) Urine Blood Negative /uL (Negative) Urine Nitrite Negative (Negative) Urine Bilirubin Negative (Negative) Urine Urobilinogen 8 mg/dL (Negative) H Urine Leukocyte Esterase Negative /uL (Negative) Urine RBC 5 /hpf (0 - 4) Urine WBC 1 /hpf (0 - 5) Urine Squamous Epithelial Cells Few /hpf (<5) Urine Bacteria None seen /hpf (None Seen) Urine Glucose Normal mg/dL (Normal) Urine Creatinine 248.25 mg/dL (30.0-125.0) H Urine Sodium 27 mmol/L (40-220) L Urine Total Protein 293.2 mg/dL (1-14) H Microbiology Microbiology Date/Time Source Procedure Growth Status 07/07/24 21:36 Blood Blood Culture - Preliminary NO GROWTH AFTER 24 HOURS OF INCUBATION. Resulted 06/09/24 17:21 Urine - [place] Urine Culture - Final Complete 05/27/24 08:50 Nose MRSA Screen - Final Complete 05/25/24 06:50 Sputum Gram Stain - Final Complete 05/25/24 06:50 Respiratory Culture - Final Presumptive [place] albicans Complete Labs and/or images reviewed: Labs reviewed by me, Image(s) reviewed by me Assessment/Plan Assessment/Plan Impression: -severe sepsis with shock , Streptococcus pneumoniae -probable community-acquired pneumonia with Gram-positive cocci -sepsis with Gram-positive cocci -acute hypoxic respiratory failure with mechanical ventilation -obesity -acute kidney injury, anuric -NSTEMI, probably type 2 -hypoalbuminemia -? Angioedema on resolved -respiratory alkalosis -multifocal CVA -endocarditis Plan: Events: No events overnight. Patient was supposed to transfer to [facility] in [place] yesterday evening. Transfer did not occur secondary to nonmedical reasons. Continue current plan of care -continue current antihypertensives -bronchodilators -antibiotic therapy per Infectious Disease -head of bed greater than 30 -nephrology consultation: HD -PUD, DVT prophylaxis Patient awaiting LTAC transfer. Critical care time spent with patient discussing and formulating plan of care: 40 minutes. This does not include time spent performing procedures. This medical document was created using an electronic medical record system with [employer] dictation system. Although this document has been carefully reviewed, there may still be some phonetic and typographical errors. These areas are purely typographical due to imperfections of the software programs, and do not reflect any compromise in the patient's medical care. Plan discussed with: Patient, Other (RN) My Orders Orders - OMAR PARK [employer] Procedure Category Date Status Time Imaging Transfer ORDERS 07/08/24 Transmitted Request 16:03 Mrsa Screen JO-ANN 07/08/24 In Process 16:09 Date of Service: Jul 09, 2024 Billing Provider: OMAR PARK NP Common Visit Codes: [id number] CARE 30-74 MIN OMAR PARK NP Jul 09, 2024 09:50
--- NOTE | 2024-07-09 12:43 | DVHPN2 ---
Progress Note Date Seen: Jul 09, 2024 Medical Necessity Reason Pt with a Central, PICC or Fol: No The following are medically ne: Central Line Subjective Review of Systems: RESPIRATORY:Abnormal Other Systems: Patient seen and examined by myself today in follow-up Patient trached on the ventilator Objective vital signs Vital Sign Date Time Temp Pulse Resp B/P (MAP) Pulse Ox O2 Delivery O2 Flow Rate FiO2 07/09/24 11:56 95 25 99 07/09/24 11:50 Trach Collar 8.0 07/09/24 11:50 40 40 07/09/24 10:46 178/99 07/09/24 04:00 98.9 98.9 Total Intake and Output 07/08/24 07/08/24 07/09/24 15:00 23:00 07:00 Intake Total 50 ml 425 ml 261 ml Output Total 0 ml 0 ml Balance 50 ml 425 ml 261 ml medications Current Medications Medications Dose Ordered Sig/Yousif Route Start Time Stop Time Status Last Admin Dose Admin Midazolam HCl 50 ml @ 1 mls/hr Q24H IV 05/25/24 06:30 05/29/24 09:11 5 MLS/HR Atorvastatin Calcium 40 mg HS NG 05/25/24 22:00 07/08/24 21:48 40 MG Ondansetron HCl 4 mg Q4HP PRN IV 05/25/24 10:45 Nitroglycerin 0.4 mg Q5MINP PRN SL 05/25/24 10:45 Aspirin 81 mg DAILY PO 06/10/24 10:00 07/09/24 10:18 81 MG Enteral Nutritional Formula 1,000 ml 40ML/HR GT 06/15/24 09:15 07/09/24 03:22 1,000 ML Sodium Chloride 10 ml QSHIFT@10,22 IV 06/17/24 22:00 07/09/24 10:19 10 ML Albuterol 2.5 mg Q6HR NEB 06/20/24 12:00 07/09/24 11:50 2.5 MG Ipratropium [place] 0.5 mg Q6HR NEB 06/20/24 12:00 07/09/24 11:50 0.5 MG Ceftriaxone Sodium/Dextrose 50 ml @ 50 mls/hr BID IV 06/21/24 22:00 07/09/24 10:20 50 MLS/HR Vancomycin HCl 0 ml @ 0 mls/hr UD IV 06/27/24 23:45 Cancel Acetaminophen 650 mg Q6HP PRN PO 06/28/24 17:45 07/08/24 13:30 650 MG Norepinephrine Bitartrate 250 ml @ 3.75 mls/hr Q24H IV 06/29/24 05:30 06/29/24 06:05 3.75 MLS/HR Hydralazine HCl 10 mg Q6HPRN PRN IV 07/01/24 13:15 07/06/24 14:53 10 MG Labetalol HCl 10 mg Q2HPRN PRN IV 07/03/24 14:15 07/09/24 10:46 10 MG Carvedilol 6.25 mg Q12HR PO 07/06/24 22:00 07/09/24 10:19 6.25 MG Hydralazine HCl 25 mg Q8HR GT 07/06/24 14:39 07/09/24 06:08 25 MG Examination: LUNGS:Normal, CVS:Normal, MSK:Normal laboratory and microbiology Laboratory Tests 07/09/24 03:40 Test 07/09/24 03:40 Range/Units Serum Glucose 96 74-106 mg/dL Microbiology Date/Time Source Procedure Growth Status 07/07/24 21:36 Blood Blood Culture - Preliminary NO GROWTH AFTER 24 HOURS OF INCUBATION. Resulted 06/09/24 17:21 Urine - [place] Urine Culture - Final Complete 05/27/24 08:50 Nose MRSA Screen - Final Complete 05/25/24 06:50 Sputum Gram Stain - Final Complete 05/25/24 06:50 Respiratory Culture - Final Presumptive Tara albicans Complete Problem List/Assessment/Plan Problem List/Assessment/Plan CHANG superimposed on CKD secondary to ATN, FeNa > 2% , oligo anuric requiring intermittent HD Acute respiratory failure, intubated on ventilator Vancomycin toxicity Septic shock CHF, Ef 40% Morbid obesity Anemia of CKD Hypokalemia REC: Hemodialysis tomorrow Epogen 97074 IV post hemodialysis IV pressors for BP support Albumin 25% p.r.n. hemodialysis IV Abx DC vancomycin if okay with ID Noted plan to transfer to SNF Plan discussed with: Other (Nurse) My Orders My Orders Orders - MARIELA JONES MD Procedure Category Date Status Time Acute Hepatitis Panel LAB 07/09/24 Logged 09:30 Dietary Evaluation Review Comments: 1) If GI is accessible consider Jevity 1.2 @ 70ml/hr x 24hr continuous feed goal rate as tolerated 2) If pt remains NPO >7 days consider TPN to meet at least 75% of estimated needs 3) Advance pt diet when medically feasible to a 2gm Sodium diet modified per CREDIT RELATIONSHIP MANAGER recommendations 4) Continue current plan of care Expected Outcomes/Goals: 1) Pt to receive nutrition support within 7 days of NPO status 2) Pt diet to advance 3) F/U in 2-3 days MARIELA JONES MD Jul 09, 2024 12:43
--- NOTE | 2024-07-09 19:11 | DVHPN2 ---
Progress Note - Dictate Date Seen: Jul 09, 2024 Medical Necessity Reason Pt with a Central, PICC or Fol: No The following are medically ne: Central Line Subjective Ms. Pandya is a 53 years old right-handed female with a history of morbid obesity, hypertension, the patient was was brought to the [facility] on 05/25/24 with a chief company of altered mental status, respiratory distress. I have seen and examined the patient, I have talked to her nurse. She is awake, she responds me with social smile, she follows verbal commands She is still very weak, Urine culture, 05/25/2024: Negative Blood culture, 05/25/2024: Streptococcus pneumoniae UDS, 05/25/2024: Negative Urinalysis, 05/25/2024: WBC: 1, urine leukocyte esterase: Negative ABG, 05/25/2024: Metabolic acidosis, hypoxia, 05/26/2024: Metabolic acidosis, hypoxia, 05/27/24: Metabolic acidosis, hypoxia WBC/HB/PLT/MCV, 06/02/2024: 22.4/9/342/89.4 06/09/2024: 19.6/9.4/235/91.6, 06/12/2024: 8.2/9.2/205/90.6 BUN/CR, 05/26/2024: 62/7.01 06/02/2024: 123/6.59, 06/09/2024: 137/6.32, 06/12/2024: 71/4.33 HGB A1c, 05/25/2024: 5.6 Lactic acid, 05/25/2024: 3.6, 4.6, 4.2, 05/26/2024: 3.6 Troponin one high sensitivity, 05/25/2024: 1060, 1354, 1262 TBI/AST/ALT/AP, 05/26/2024: 2/246/167/98, 06/07/2024: 0.9/139/464/93 TG/HDL/LDL/HDL, 05/25/2024: 192/98/40/8 Vitamin B12, 06/02/2024: 836 TSH, 05/25/2024: 0.57 SAMIR, 06/15/2024: Vegetation anterior mitral leaflet Carotid Doppler, 06/15/2024: 1. There is no hemodynamically significant stenosis in the right common carotid and internal carotid arteries. There is elevated peak systolic velocity in the right external carotid artery. 2. Nonvisualization of the left carotid and vertebral arteries secondary to overlying bandage. Consider further evaluation with CTA neck Chest x-ray, 05/25/2024: 1. Distal tip of the endotracheal tube is approximately 5.5 cm above the level of the nik. 2. Poorly visualized enteric tube at its distal aspect. Appears to reach the gastroesophageal junction, although not visualized distal to this point. Correlate with clinical findings. 3. Bilateral airspace opacities and interstitial opacities, may be due to multifocal pneumonia or pulmonary edema in the appropriate clinical setting CT head, 05/25/2024: No gross acute intracranial process CT head, 06/02/24: 1. Interval development of 2 foci of subcortical parenchymal hemorrhage in the left frontal lobe. No mass effect or midline shift. 2. Moderate amount of fluid in the posterior nasopharynx likely related to intubation. Recommend suctioning to prevent aspiration. 3. Small bilateral mastoid effusions. We are in the process of reaching out to the nurse or physician in charge of the patient to convey the findings. CT head, 06/04/2024: Redemonstrated are 2 hyperdense foci in the subcortical left frontal lobe which may represent small foci of parenchymal hemorrhage. There is no significant surrounding edema or associated mass effect CT head, 06/06/2024: The 2 foci of left frontal subcortical hemorrhage are less conspicuous in the current exam partially resolved. No new foci of hemorrhage CT chest, 06/23/2024: 1. Bilateral lower lobe consolidations which may reflect atelectasis or pneumonia. No findings to suggest septic emboli. 2. Cardiomegaly. Chest, 06/28/2024: Bilateral lower lobe infiltrates slightly worse than on previous study. There is now a small left pleural effusion MRI head, 06/15/2024: Extensive periventricular and deep white matter signal abnormality most of which is likely chronic. Possible small focus of subacute ischemia in the right periventricular region. No definite acute intracranial hemorrhage on MRI. Clinical correlation and continued follow-up is recommended MRA head, 06/28/2024: Asymmetrically decreased flow signal in the right M3 and M4 arterial branches in comparison to the left. Distal MCA arterial stenosis/ occlusion is not excluded. Further evaluation with CT angiography is recommended if not already performed vital signs Vital Sign Date Time Temp Pulse Resp B/P (MAP) Pulse Ox O2 Delivery O2 Flow Rate FiO2 07/09/24 18:15 110 07/09/24 18:15 44 97 Trach Collar 8 40 40 07/09/24 18:00 161/87 (111) 07/09/24 16:00 99.2 99.2 Total Intake and Output 07/08/24 07/08/24 07/09/24 15:00 23:00 07:00 Intake Total 50 ml 425 ml 261 ml Output Total 0 ml 0 ml Balance 50 ml 425 ml 261 ml medications Current Medications Medications Dose Ordered Sig/Yousif Route Start Time Stop Time Status Last Admin Dose Admin Midazolam HCl 50 ml @ 1 mls/hr Q24H IV 05/25/24 06:30 05/29/24 09:11 5 MLS/HR Atorvastatin Calcium 40 mg HS NG 05/25/24 22:00 07/08/24 21:48 40 MG Ondansetron HCl 4 mg Q4HP PRN IV 05/25/24 10:45 Nitroglycerin 0.4 mg Q5MINP PRN SL 05/25/24 10:45 Aspirin 81 mg DAILY PO 06/10/24 10:00 07/09/24 10:18 81 MG Enteral Nutritional Formula 1,000 ml 40ML/HR GT 06/15/24 09:15 07/09/24 03:22 1,000 ML Sodium Chloride 10 ml QSHIFT@10,22 IV 06/17/24 22:00 07/09/24 10:19 10 ML Albuterol 2.5 mg Q6HR NEB 06/20/24 12:00 07/09/24 11:50 2.5 MG Ipratropium [place] 0.5 mg Q6HR NEB 06/20/24 12:00 07/09/24 11:50 0.5 MG Ceftriaxone Sodium/Dextrose 50 ml @ 50 mls/hr BID IV 06/21/24 22:00 07/09/24 10:20 50 MLS/HR Vancomycin HCl 0 ml @ 0 mls/hr UD IV 06/27/24 23:45 Cancel Acetaminophen 650 mg Q6HP PRN PO 06/28/24 17:45 07/08/24 13:30 650 MG Norepinephrine Bitartrate 250 ml @ 3.75 mls/hr Q24H IV 06/29/24 05:30 06/29/24 06:05 3.75 MLS/HR Hydralazine HCl 10 mg Q6HPRN PRN IV 07/01/24 13:15 07/09/24 16:53 10 MG Labetalol HCl 10 mg Q2HPRN PRN IV 07/03/24 14:15 07/09/24 10:46 10 MG Carvedilol 6.25 mg Q12HR PO 07/06/24 22:00 07/09/24 10:19 6.25 MG Hydralazine HCl 25 mg Q8HR GT 07/06/24 14:39 07/09/24 14:55 25 MG objective The patient is well-nourished and well-developed with no distress. Status post tracheostomy Status post PEG feeding tube insertion MENTAL STATUS: Subjective CRANIAL NERVES: Pupils are round and reactive. There is conjugated eye movement. No signs of facial weakness. There are gagging or coughing reflexes during oral/trach care. SENSATION: Okay to light touch MOTOR: Normal tone in the upper and lower extremity. Normal muscle bulk. No fasciculations. She can move the fingers and toes a little bit on verbal commands REFLEXES: Deep tendon reflexes are symmetrical. No pathological reflexes. CEREBELLAR/COORDINATION: Deferred GAIT/STATION: deferred. laboratory and microbiology Laboratory Tests 07/09/24 03:40 Test 07/09/24 03:40 Range/Units Serum Glucose 96 74-106 mg/dL Problem List Altered mental status/Coma Hypoxic encephalopathy secondary to respiratory failure Metabolic encephalopathy secondary to acidosis, sepsis, septic shock, kidney failure Multiple acute/subacute strokes Heart attack Pneumonia Sepsis, septic shock Endocarditis Acute on chronic kidney failure ICU myopathy Acute petechial hemorrhage in the left frontal lobe, improving on follow-up CT Intermittent anisocoria, uncertain clinical significance Assessment/Plan Monitoring Supportive treatment ICU care Stabilize vitals Respiratory support IV antibiotics GI prophylaxis/Protonix DVT prophylaxis/heparin Nephrology on case Pulmonology on case Infectious diseases on case She is s/p PEG feeding tube insertion and tracheostomy Transfer to SNF today More recommendation per clinical course This medical document was created using an electronic medical record system with [employer] dictation system. Although this document has been carefully reviewed, there may still be some phonetic and typographical errors. These areas are purely typographical due to imperfections of the software programs, and do not reflect any compromise in the patient's medical care Dietary Evaluation Review Comments: 1) If GI is accessible consider Jevity 1.2 @ 70ml/hr x 24hr continuous feed goal rate as tolerated 2) If pt remains NPO >7 days consider TPN to meet at least 75% of estimated needs 3) Advance pt diet when medically feasible to a 2gm Sodium diet modified per HYDRATOR recommendations 4) Continue current plan of care Expected Outcomes/Goals: 1) Pt to receive nutrition support within 7 days of NPO status 2) Pt diet to advance 3) F/U in 2-3 days Plan discussed with: Other PILAR HOOD MD Jul 09, 2024 19:11
--- NOTE | 2024-07-09 22:47 | DVHPN2 ---
Progress Note - Dictate Date Seen: Jul 09, 2024 Medical Necessity Reason Pt with a Central, PICC or Fol: No The following are medically ne: Central Line Subjective Patient seen and examined at bedside. S/p trach, on humidified O2 Overnight events reviewed. vital signs Vital Sign Date Time Temp Pulse Resp B/P (MAP) Pulse Ox O2 Delivery O2 Flow Rate FiO2 07/09/24 18:15 110 07/09/24 18:15 44 97 Trach Collar 8 40 40 07/09/24 18:00 161/87 (111) 07/09/24 16:00 99.2 99.2 Total Intake and Output 07/08/24 07/08/24 07/09/24 15:00 23:00 07:00 Intake Total 50 ml 425 ml 261 ml Output Total 0 ml 0 ml Balance 50 ml 425 ml 261 ml medications Current Medications Medications Dose Ordered Sig/Yousif Route Start Time Stop Time Status Last Admin Dose Admin Vancomycin HCl 0 ml @ 0 mls/hr UD IV 06/27/24 23:45 Cancel objective Gen.: Patient lying in bed in no apparent distress. S/p trach, on humidified O2 Head: Normocephalic, atraumatic. Eyes: EOMI/PERRLA. Ears: Normal hearing. Normal anatomy. Neck: Trach in place Nose: Normal external anatomy. Mouth: Moist mucous membranes. Chest: Decreased air entry bilaterally. No wheezing or rhonchi. Cardiovascular: Positive S1, positive S2. Regular rate and rhythm. Abdomen: Positive bowel sounds in all 4 quadrants. Soft, non-tender, non- distended. : Deferred. Rectal: Deferred. Skin: Warm, dry. Intact. Extremities: 2+ radial pulses bilaterally. No lower extremity edema. Neuro: Awake, follows commands. No gross motor or sensory deficits. Cranial nerves II through XII intact. Gait not assessed. laboratory and microbiology Laboratory Tests 07/09/24 03:40 Test 07/09/24 03:40 Range/Units Serum Glucose 96 74-106 mg/dL Assessment/Plan Impression: Acute hypoxic respiratory failure S/p tracheostomy Septic shock Elevated troponin Acute kidney injury Lactic acidosis Metabolic acidosis Multifocal pneumonia, likely gram negative Pulmonary edema AE COPD Events: S/p trach, on trach collar w/ humidified O2. Patient tolerating trach collar, remains on 8 LPM via trach collar. Patient awake and following commands. No acute issues Trach care Pulmonary toileting PRN PEG tube in place Hemodialysis per Nephrology Continue bronchodilators Continue antibiotics Tube feeds for nutritional support Wound care Monitor hemoglobin Blood pressure control Monitor renal function Monitor electrolytes, supplement as necessary CHANG - Hemodialysis per Nephrology Nephrology recs appreciated. Echo showed EF of 40%. SBT/KAREN Continue daily CPAP. Supportive care Disposition per hospitalist Awaiting LTAC placement Poor prognosis, poor chance of meaningful recovery CT head revealed e/o multiple strokes. Neurology recommendations appreciated Labs and imaging reviewed. Rest of plan as noted below. Plan: s/p trach, on trach collar. PS/trach collar trials through the day AC vent support PRN only Currently on 8 LPM via trach collar. Off sedation Off pressors, hemodynamically stable. Titrate to keep O2 saturation above 90%. VAP bundle. Daily ABG and CXR while intubated Off sedation Continue bronchodilators. Continue antibiotics. F/u cultures. Repeat blood cultures show no growth after 48 hours Pressors if necessary for hemodynamic support Titrate to keep mean arterial pressure greater than 65 mmHg. Cardiology recs appreciated. Monitor renal function Monitor electrolytes. Supplement as necessary. Monitor ins and outs. Nephrology recs appreciated. IV fluid hydration GI prophylaxis. DVT prophylaxis. Prognosis: Poor given patient's multiple co-morbidities. Rest of plan per hospitalist and other consultants. Thank you, [employer], for allowing me to participate in this patient's care. Further recommendations will depend on the patient's clinical course. Please do not hesitate to contact me if you have any questions or concerns. This medical document was created using an electronic medical record system with [employer] computerized dictation system. Although these documentations are being carefully reviewed, there may still be some phonetic and typographical changes. The errors are purely typographical, due to imperfection on the software program, and do not reflect any compromise in the patient's medical care. Dietary Evaluation Review Comments: 1) If GI is accessible consider Jevity 1.2 @ 70ml/hr x 24hr continuous feed goal rate as tolerated 2) If pt remains NPO >7 days consider TPN to meet at least 75% of estimated needs 3) Advance pt diet when medically feasible to a 2gm Sodium diet modified per BOOKKEEPER ASSISTANT recommendations 4) Continue current plan of care Expected Outcomes/Goals: 1) Pt to receive nutrition support within 7 days of NPO status 2) Pt diet to advance 3) F/U in 2-3 days Plan discussed with: Patient, Other (LUZMARIA Grover) MELODY ELIZABETH MD Jul 09, 2024 22:46
--- NOTE | 2024-07-10 17:46 | DVHPN2 ---
Consult Progress Note Date Seen: Jul 09, 2024 Subjective Patient reports: Other (fevers have improved as well as tachycardia , no longer appearing diaphoretic ) Objective vital signs Vital Sign Date Time Temp Pulse Resp B/P (MAP) Pulse Ox O2 Delivery O2 Flow Rate FiO2 07/09/24 18:15 110 07/09/24 18:15 44 97 Trach Collar 8 40 40 07/09/24 18:00 161/87 (111) 07/09/24 16:00 99.2 99.2 Total Intake and Output 07/09/24 07/09/24 07/10/24 15:00 23:00 07:00 Intake Total 50 ml 262 ml Output Total 0 ml Balance 50 ml 262 ml medications Current Medications Medications Dose Ordered Sig/Yousif Route Start Time Stop Time Status Last Admin Dose Admin Vancomycin HCl 0 ml @ 0 mls/hr UD IV 06/27/24 23:45 Cancel General Appearance: Cooperative. Well developed. Well nourished. NAD. intubated and sedated . morbidly obease Head Exam: Normal inspection Neck Exam: Normal inspection. Non-tender. Normal alignment Pulmonary/Respiratory: Chest non-tender. Clear bilateral breath sounds. minimal vent with traces of pressures and unable to ween off vent due to mentating well of sedation but continues to have signs of agitation Cardiovascular/Chest: No murmurs. No JVD. Abdominal Exam: Normal bowel sounds. Soft. Nontender. No hepatosplenomegaly. 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 concern for septic picture , patient was needing ventilatory support , vasopressures , steroids . no known history of drungs or smoking . no recent medications. orginally treated with cefapine and doxycycline but eventually put on dialysis and found strep pneumonia in blood , likely lung origin . found to have vegitation in the antrium and anterior mitral leflet which was confirmed on SAMIR as well as mitral regurgitation . MRI of brain concerning for possible small focus of subacute ischemia and the right periventricular region likely consistent with septic embolie . SAMIR showed 3 mm vegitation on the intermitral leftlet . currently on ceftriaxone therapy for endocarditis. negative for any type of hepatitis , urine drig screen was negative . no signs of septic embolism problem list - strep pneumonia , bacteremia , endocarditis , septic shock , septic emboli to brain , pneumonia, mitral valve regurgitation , CHF , acute renal failure on dialysis 2: Difficult to ween off vent and has been having improved airspace opacities on chest xray and since has been started on Ceftriaxone 2 grams Q12 , chest Ct was done and there was no finding to suggest septic emboli or persistent plural effusions that could be keeping patients from being off the ventilator . Continue Ceftriaxone 2 grams every 12 hours for 6 weeks via piccline . prognosis overall is poor , may proceed with tracheostomy . no contraindications from infectious disease of additional infectious work up needed 06/23: underwent dialysis and tolerated procedure without any issues . Patient has a clean tracheostomy placed today without any complications and site appears clean. Patient is currently on FIO2 50% on trach . Continue ceftriaxone 2 grams every 12 hours for 6 weeks . If patients clinical status allows would recommend patient follow up with infectious disease in 6 weeks to repeat echocardiogram as well as determine if additional therapy is needed for endocarditis. 2: S/P tracheostomy with no signs of intolerance and still vent dependant . plan will be to continue antibiotics for 6 weeks of ceftriaxone for endocarditis and to follow up with infectious disease clinic in 6 weeks 06/25: remains vent dependant and on 6 of levofed . FIO2 50% and pressure dependant . tolerating tracheostomy and tube feeds via NG tube and underwent dialysis yesterday without any issues . continue antibiotic plan 06/26: chest xray shows mild vascular congestion 06/27: patient is levofed dependant and unclear what is contributing to overall hypotension. spoke with nursing staff to pursue aggressive sedation to see if patient will wake up and if patient is awake would consider cardiology reevaluation for potential cardiothoracic surgery 06/28: elevated temps as high as 100.2 , possibly related to agitation during CPAP 06/29: Patient has been switched off sedation to see if she can tolerate CPAP and potentially be weaned off the vent 06/30: MRI was done of the brain and shows asymmetrically decreased flow signal in the right M3 and M4 arterial branches compared to the left distal MCA arterial stenosis / occlusion is not excluded . CT chest was done and shows a bilateral lower lobe infiltrates slightly worse than previous , now a small left plural effusion 07/01: patients blood pressures have significantly improved and if off pressure support , holding good maps . new blood cultures are no growth to date 07/02: patient is off pressures and responding to antibiotics however is not able to wake up and not able to be weaned from the vent 07/04: patient is awake and alert on pressure support 07/05: tolerating antibiotics and stable 07/06: chest x ray shows no significant changes 07/07: Patient was given tylenol for elevated temp of 99.7 , oral findings are consistent with micro aspiration and tachycardia 07/08: tachycardic with elevated temp and no growth on blood cultures . chest xray from 07/06 shows no significant changes Plan: - consider adjustment of dialysis regimen due to tachycardia and defer to cardiology for management , low suspicion tachycardia is related to infectious process - repeat blood cultures in light of elevated temps - suspect patients tachycardia is related to microaspiration , recommend exercising good aspiration precautions and keeping bad raised 30 degrees - due to patient undergone sub therapeutic dose of ceftriaxone for 1 week would extend patients 6 week course to 7 weeks , end of therapy will be 07/14/2024 - in light of worsening chest ct recommend getting a sputum culture - Continue ceftriaxone 2 grams every 12 hours for 6 weeks . If patients clinical status allows would recommend patient follow up with infectious disease in 6 weeks to repeat echocardiogram as well as determine if additional therapy is needed for endocarditis. -continue ceftriaxone 2 g twice daily, recommend for total six weeks for endocarditis. -on hemodialysis -rest of the medical management as per primary care team and pulmonology nephrology. - prognosis is poor Plan discussed with: Other Dietary Evaluation Review Comments: 1) If GI is accessible consider Jevity 1.2 @ 70ml/hr x 24hr continuous feed goal rate as tolerated 2) If pt remains NPO >7 days consider TPN to meet at least 75% of estimated needs 3) Advance pt diet when medically feasible to a 2gm Sodium diet modified per [employer] recommendations 4) Continue current plan of care Expected Outcomes/Goals: 1) Pt to receive nutrition support within 7 days of NPO status 2) Pt diet to advance 3) F/U in 2-3 days JOSH VERNON MD Jul 10, 2024 17:46
[2024-07-12 11:17] LABS: Hepatitis A Ab IgM Negative; Hepatitis B Core IgM Negative (Negative); Hepatitis B Surface Antigen Negative (Negative); Hepatitis C Antibody Negative (Negative)
== END 2024-07-09 18:45 | DRG 5 ==
LOC: EDBD 06:00 → EDSEX 06:00 → ER 06:00 → OVERFLOW 10:39 → UNDOADMIN 10:39 → TELE 23:54 → ICU WEST 05-27 07:33
PROVIDERS: ADMIT Nurse Practitioner Acute Care; ATTEND Nurse Practitioner Acute Care
PROC: 5A1955Z Respiratory Ventilation, Greater than 96 Consecutive Hours (ICD-10-PCS; principal; 2024-05-25)
PROC: 0BH17EZ Insertion of Endotracheal Airway into Trachea, Via Natural or Artificial Opening (ICD-10-PCS; 2024-05-25)
PROC: 06HY33Z Insertion of Infusion Device into Lower Vein, Percutaneous Approach (ICD-10-PCS; 2024-05-25)
PROC: 02HV33Z Insertion of Infusion Device into Superior Vena Cava, Percutaneous Approach (ICD-10-PCS; 2024-05-27)
PROC: 03HY32Z Insertion of Monitoring Device into Upper Artery, Percutaneous Approach (ICD-10-PCS; 2024-05-27)
PROC: 5A1D70Z Performance of Urinary Filtration, Intermittent, Less than 6 Hours Per Day (ICD-10-PCS; 2024-05-27)
PROC: 5A1D70Z Performance of Urinary Filtration, Intermittent, Less than 6 Hours Per Day (ICD-10-PCS; 2024-05-28)
PROC: 5A1D70Z Performance of Urinary Filtration, Intermittent, Less than 6 Hours Per Day (ICD-10-PCS; 2024-05-31)
PROC: 5A1D70Z Performance of Urinary Filtration, Intermittent, Less than 6 Hours Per Day (ICD-10-PCS; 2024-06-02)
PROC: 5A1D70Z Performance of Urinary Filtration, Intermittent, Less than 6 Hours Per Day (ICD-10-PCS; 2024-06-04)
PROC: 5A1D70Z Performance of Urinary Filtration, Intermittent, Less than 6 Hours Per Day (ICD-10-PCS; 2024-06-07)
PROC: 5A1D70Z Performance of Urinary Filtration, Intermittent, Less than 6 Hours Per Day (ICD-10-PCS; 2024-06-09)
PROC: 03HY32Z Insertion of Monitoring Device into Upper Artery, Percutaneous Approach (ICD-10-PCS; 2024-06-11)
PROC: 5A1D70Z Performance of Urinary Filtration, Intermittent, Less than 6 Hours Per Day (ICD-10-PCS; 2024-06-11)
PROC: 5A1D70Z Performance of Urinary Filtration, Intermittent, Less than 6 Hours Per Day (ICD-10-PCS; 2024-06-14)
PROC: B24BZZ4 Ultrasonography of Heart with Aorta, Transesophageal (ICD-10-PCS; 2024-06-15)
PROC: 5A1D70Z Performance of Urinary Filtration, Intermittent, Less than 6 Hours Per Day (ICD-10-PCS; 2024-06-16)
PROC: 02HV33Z Insertion of Infusion Device into Superior Vena Cava, Percutaneous Approach (ICD-10-PCS; 2024-06-17)
PROC: B548ZZA Ultrasonography of Superior Vena Cava, Guidance (ICD-10-PCS; 2024-06-17)
PROC: 5A1D70Z Performance of Urinary Filtration, Intermittent, Less than 6 Hours Per Day (ICD-10-PCS; 2024-06-18)
PROC: 0DH63UZ Insertion of Feeding Device into Stomach, Percutaneous Approach (ICD-10-PCS; 2024-06-20)
PROC: 5A1D70Z Performance of Urinary Filtration, Intermittent, Less than 6 Hours Per Day (ICD-10-PCS; 2024-06-20)
PROC: 0JH63XZ Insertion of Tunneled Vascular Access Device into Chest Subcutaneous Tissue and Fascia, Percutaneous Approach (ICD-10-PCS; 2024-06-21)
PROC: 02H633Z Insertion of Infusion Device into Right Atrium, Percutaneous Approach (ICD-10-PCS; 2024-06-21)
PROC: B518YZA Fluoroscopy of Superior Vena Cava using Other Contrast, Guidance (ICD-10-PCS; 2024-06-21)
PROC: B548ZZA Ultrasonography of Superior Vena Cava, Guidance (ICD-10-PCS; 2024-06-21)
PROC: 5A1D70Z Performance of Urinary Filtration, Intermittent, Less than 6 Hours Per Day (ICD-10-PCS; 2024-06-22)
PROC: 0B110F4 Bypass Trachea to Cutaneous with Tracheostomy Device, Open Approach (ICD-10-PCS; 2024-06-23)
PROC: 5A1D70Z Performance of Urinary Filtration, Intermittent, Less than 6 Hours Per Day (ICD-10-PCS; 2024-06-24)
PROC: 5A1D70Z Performance of Urinary Filtration, Intermittent, Less than 6 Hours Per Day (ICD-10-PCS; 2024-06-25)
PROC: 5A1D70Z Performance of Urinary Filtration, Intermittent, Less than 6 Hours Per Day (ICD-10-PCS; 2024-06-28)
PROC: 5A1D70Z Performance of Urinary Filtration, Intermittent, Less than 6 Hours Per Day (ICD-10-PCS; 2024-06-30)
PROC: 5A1D70Z Performance of Urinary Filtration, Intermittent, Less than 6 Hours Per Day (ICD-10-PCS; 2024-07-02)
PROC: 5A1D70Z Performance of Urinary Filtration, Intermittent, Less than 6 Hours Per Day (ICD-10-PCS; 2024-07-05)
PROC: 5A1D70Z Performance of Urinary Filtration, Intermittent, Less than 6 Hours Per Day (ICD-10-PCS; 2024-07-07)
DX: A40.3 Sepsis due to Streptococcus pneumoniae (principal); I61.0 Nontraumatic intracerebral hemorrhage in hemisphere, subcortical; I63.9 Cerebral infarction, unspecified; I33.0 Acute and subacute infective endocarditis; I76 Septic arterial embolism; E87.4 Mixed disorder of acid-base balance; D63.1 Anemia in chronic kidney disease; J13 Pneumonia due to Streptococcus pneumoniae; E46 Unspecified protein-calorie malnutrition; R65.21 Severe sepsis with septic shock; N17.0 Acute kidney failure with tubular necrosis; I13.0 Hypertensive heart and chronic kidney disease with heart failure and stage 1 through stage 4 chronic kidney disease, or unspecified chronic kidney disease; Z20.822 Contact with and (suspected) exposure to COVID-19; I50.42 Chronic combined systolic (congestive) and diastolic (congestive) heart failure; G92.8 Other toxic encephalopathy; J96.01 Acute respiratory failure with hypoxia; E66.01 Morbid (severe) obesity due to excess calories; J44.0 Chronic obstructive pulmonary disease with (acute) lower respiratory infection; Z99.11 Dependence on respirator [ventilator] status; E88.09 Other disorders of plasma-protein metabolism, not elsewhere classified; I21.A1 Myocardial infarction type 2; I34.0 Nonrheumatic mitral (valve) insufficiency; G93.1 Anoxic brain damage, not elsewhere classified; N18.9 Chronic kidney disease, unspecified; I16.0 Hypertensive urgency; H57.02 Anisocoria; T78.3XXA Angioneurotic edema, initial encounter; E87.6 Hypokalemia; I16.1 Hypertensive emergency; T36.8X5A Adverse effect of other systemic antibiotics, initial encounter; Z82.49 Family history of ischemic heart disease and other diseases of the circulatory system; Z68.41 Body mass index [BMI] 40.0-44.9, adult; Y92.238 Other place in hospital as the place of occurrence of the external cause; Y84.8 Other medical procedures as the cause of abnormal reaction of the patient, or of later complication, without mention of misadventure at the time of the procedure; Y92.89 Other specified places as the place of occurrence of the external cause
CPT/HCPCS: 31500; 36415; 36556; 36558; 36569; 36600; 36620; 70450; 70545; 70551; 71045; 71250; 76604; 76705; 76775; 76937; 77001; 80048; 80053; 80061; 80074; 80202; 80307; 81001; 82140; 82306; 82565; 82570; 82607; 82728; 82805; 82962; 83036; 83540; 83550; 83605; 83690; 83735; 83880; 84100; 84132; 84156; 84300; 84425; 84443; 84484; 84550; 85007; 85014; 85018; 85025; 85027; 85610; 85730; 86850; 86900; 86901; 87040; 87070; 87077; 87081; 87086; 87186; 87205; 87426; 87804; 90935; 93005; 93306; 93312; 93886; 94002; 94003; 94640; 95819; 96365; 96375; 99152; 99291; 99292; C1894; G0378; J0131; J1100; J1450; J1642; J1756; J2003; J2248; J2250; J2470; J2704; J3480; J3490; J7060; P9047